=== PATIENT | female | born 1985 | race Caucasian/White ===

== ENCOUNTER 2023-03-02 17:10 | Emergency (ER) | payer OTHER, SELFPAY ==
[2023-03-02 17:09] VITALS: BP 162/90; PULSE 60; RESP 18; TEMP 36.9; O2SAT 100; BMI 30.2
[2023-03-02 17:10] VITALS: BP 162/90; O2SAT 99
--- NOTE | 2023-03-02 17:14 | ED.GENADUL1 ---
HPI - General Adult General Chief complaint: Headache Stated complaint: headache Time Seen by Provider: 03/02/23 17:14 Source: patient Mode of arrival: ambulance Limitations: no limitations History of Present Illness HPI narrative: patient is a 37-year-old female with a history of neuromuscular autoimmune disease, nonspecified and CVID. Patient has had weekly infusions for several years, also has a history of pots. Patient states she is premedicated with 1 L IV fluid bolus, received 25 g IVIG infusion and then receives 2nd liter IV fluid bolus. Patient states custodial through her 2nd liter after receiving the IV infusion she noted facial swelling, some shortness of breath and leg swelling. She denies any rash, has since developed a slight headache and was noted to be hypertensive. Her home nurse administering infusion 170/110 which is abnormal for the patient who is usually hypotensive. She denies any abdominal pain or diarrhea. There is no tongue swelling or difficulty swallowing reported. Patient denies any other medication changes in recent weeks. also arrived to confirm patient's history and prior treatments. Onset (ago): minute(s) Location: Reports head, face and lower extremity Severity: moderate Relieving factors: Reports none Treatments prior to arrival: Reports other (patient received weekly IVIG infusion) Related Data Home Medications Medication Instructions Recorded Confirmed buspirone 10 mg tablet 30 mg PO BID 03/02/23 03/02/23 cholecalciferol (vitamin D3) 125 125 mcg PO DAILY 03/02/23 03/02/23 mcg (5,000 unit) capsule diazepam 5 mg tablet 5 mg PO BID 03/02/23 03/02/23 diazepam 5 mg tablet (Valium) 5 mg PO Q8H PRN anxiety 03/02/23 03/02/23 immune glob,gamma (IgG) 10 25 g IV .weekly 03/02/23 03/02/23 %-gly-IgA over 50 mcg/mL injection solution (Gammagard Liquid) magnesium chloride 64 mg 64 mg PO DAILY 03/02/23 03/02/23 (magnesium chloride) tablet,delayed release (Mag 64) omega-3 300 mg-dha 120 mg-epa 180 1 cap PO DAILY 03/02/23 03/02/23 mg-fish oil 1,000 mg capsule omeprazole 40 mg capsule,delayed 40 mg PO DAILY 03/02/23 03/02/23 release potassium chloride 10 mEq 10 meq PO DAILY 03/02/23 03/02/23 capsule,extended release propranolol 60 mg capsule,24 60 mg PO DAILY 03/02/23 03/02/23 hr,extended release Previous Rx's Medication Instructions Recorded prednisone 20 mg tablet 40 mg (2 x 20 mg) PO DAILY 5 days 03/02/23 #10 tabs Allergies Allergy/AdvReac Type Severity Reaction Status Date / Time carbinoxamine [From [facility]] Allergy Unknown Verified 03/02/23 17:19 Latex, Natural Rubber Allergy Unknown Verified 03/02/23 17:19 pseudoephedrine [From [facility]] Allergy Unknown Verified 03/02/23 17:19 Review of Systems ROS Constitutional Denies: fever or chills Eyes Denies: change in vision Ears, nose, mouth, and throat Denies: throat pain, neck pain, throat swelling or difficulty swallowing Cardiovascular Denies: chest pain Respiratory Denies: shortness of breath or cough Gastrointestinal Denies: abdominal pain, nausea or vomiting Genitourinary Denies: painful urination Integumentary/Breast Denies: rash Neurological Reports: headache Psychiatric Denies: anxiety Endocrine Denies: excessive urination Allergic/Immunologic Denies: hives Exam Narrative Exam Narrative: Nurses notes and vital signs reviewed and patient is not hypoxic. General: The patient appears well and in no apparent distress. Patient is resting comfortably on cart. Skin: Warm, dry, no pallor noted.no evidence of rash. Head: Normocephalic, atraumatic, mild facial swelling noted, patient notes face is more swollen than her baseline. Neck: Supple, trachea mid-line, no tenderness, no lymphadenopathy Eye: Pupils are equal, round and reactive to light, EOMI Ears, Nose, Mouth, and Throat: TM are clear, normal light reflex, oral mucosa is moist, no posterior oropharynx erythema or hypertrophy, uvula is mid-line, no glottic swelling Cardiovascular: Regular Rate and Rhythm Respiratory: Patient is in no distress, no accessory muscle use, lungs are clear to auscultation, no wheezing, rales or rhonchi. Chest Wall: no tenderness Back: non-tender, no CVA tenderness Musculoskeletal: normal ROM, no tenderness,nonpitting edema noted lower legs. No evidence of rash. GI: Normal bowel sounds, no tenderness to palpation, no masses appreciated. No rebound, guarding, or rigidity noted. Neurological: A&O x4 Psychiatric: Cooperative Constitutional Vital Signs, click to edit/add: Last Vital Signs Temp 98.4 F 03/02/23 17:09 Pulse 69 03/02/23 18:13 Resp 20 03/02/23 18:13 BP 172/96 H 03/02/23 18:13 Pulse Ox 99 03/02/23 18:13 O2 Del Method Nasal Cannula 03/02/23 17:09 Course Vital Signs Vital signs: Vital Signs Temperature 98.4 F 03/02/23 17:09 Pulse Rate 60 03/02/23 17:09 Respiratory Rate 18 03/02/23 17:09 Blood Pressure 162/90 H 03/02/23 17:09 Pulse Oximetry 100 03/02/23 17:09 Oxygen Delivery Method Nasal Cannula 03/02/23 17:09 Temperature 98.4 F 03/02/23 17:09 Pulse Rate 69 03/02/23 18:13 Respiratory Rate 20 03/02/23 18:13 Blood Pressure 172/96 H 03/02/23 18:13 Pulse Oximetry 99 03/02/23 18:13 Oxygen Delivery Method Nasal Cannula 03/02/23 17:09 Medical Decision Making MDM Narrative Medical decision making narrative: patient presents with likely ALLERGIC reaction to IVIG medication, 25 g given per home health nurse who is present in the Emergency Room. She is without any acute respiratory distress, does note slight shortness of breath, facial swelling. She'll be treated with IV Pepcid, Benadryl and steroid. Given shortness of breath I feel steroids are clinically indicated given her history of immunodeficiency. patient reevaluated, reports feeling much better, very slight pressure sensation in her head, facial swelling is resolving. She denies any difficulty swallowing or tongue swelling. Patient states she is feeling better as well overall. Patient reports she is been prescribed steroids before by her sample coordinator on quite a few occasions. She feels comfortable taking a taper pack through the weekend pending evaluation with her sample coordinator regarding possible ALLERGIC reaction to her IVIG. We discussed possibly having her next infusion done at an infusion center encase there is similar reaction. Her nurse that administered the infusions at the bedside, and agrees to follow-up on this. abnormal lab studies discussed will be followed by PCP with outpt follow up. patient reports having history of these labs elevated in the past and they're still investigating. Patient's unable to reach pharmacy in the morning and she'll be sent home with a 40 mg prednisone tablet. stable vitals, patient up ambulatory in the room and reports feeling much better, she does report having a prescribed EpiPen at home as well. The patient is to followup with primary care physician/immmunologist in next 2-3 days or to return to the emergency department should any of the signs or symptoms worsen or new symptoms develop. Patient had questions answered. The patient agrees with the following Diagnosis and Treatment plan and the patient will be discharged home. Lab Data Lab results reviewed: Yes I reviewed the patient's lab results Labs: Lab Results 03/02/23 Range/Units 17:40 WBC 4.6 (4.0-11.0) 10^3/uL RBC 3.73 L (4.20-5.40) 10^6/uL Hgb 11.5 L (12.0-16.0) g/dL Hct 35.0 L (36.0-48.0) % MCV 93.8 (81.0-99.0) fL MCH 30.8 (26.7-34.0) pg MCHC 32.9 (29.9-35.2) g/dL RDW 12.3 (11.0-15.0) % Plt Count 201 (150-450) 10^3/uL MPV 10.0 (9.5-13.5) fL Neut % (Auto) 50.1 (43.0-75.0) % Lymph % (Auto) 40.0 (20.5-60.0) % [place] % (Auto) 4.1 (1.7-12.0) % Eos % (Auto) 5.2 (0.9-7.0) % Baso % (Auto) 0.4 (0.2-2.0) % Neut # (Auto) 2.3 (1.4-6.5) 10^3/uL Lymph # (Auto) 1.8 (1.2-3.8) 10^3/uL [place] # (Auto) 0.2 L (0.3-0.8) 10^3/uL Eos # (Auto) 0.2 (0.0-0.7) 10^3/uL Baso # (Auto) 0.0 (0.0-0.1) 10^3/uL Abs Immat Gran (auto) 0.01 (0.00-0.03) 10^3/uL Imm/Tot Granulo (auto) 0.2 (0.0-0.5) % Sodium 140 (136-145) mmol/L Potassium 3.9 (3.5-5.1) mmol/L Chloride 105 (98-107) mmol/L Carbon Dioxide 26.1 (21.0-32.0) mmol/L Anion Gap 12.8 BUN 12.0 (7.0-18.0) mg/dL Creatinine 1.13 H (0.55-1.02) mg/dL Est GFR ( Amer) >60 (>=60) Est GFR (Non-Af Amer) 54 L (>=60) BUN/Creatinine Ratio 10.6 Glucose 106 (74-106) mg/dL Calcium 8.6 (8.5-10.1) mg/dL Total Bilirubin 0.3 (0.2-1.0) mg/dL AST 97 H (15-37) U/L ALT 79 H (14-59) U/L Alkaline Phosphatase 188 H (46-116) U/L Total Protein 7.9 (6.4-8.2) g/dL Albumin 3.0 L (3.4-5.0) g/dL Globulin 4.9 g/dL Albumin/Globulin Ratio 0.6 ECG Data Attestation: I personally reviewed and interpreted this ECG as follows: Interpretation: EKG interpretation: Emergency Department physician interpretation, normal sinus rhythm, 57 bpm no ectopy, no ST segment elevation, normal axis. Discharge Plan Discharge Chief Complaint: Headache Clinical Impression: Allergic reaction, Infusion reaction Patient Disposition: Home, Self-Care Time of Disposition Decision: 18:30 Condition: Good Prescriptions / Home Meds: New prednisone 20 mg tablet 40 mg PO DAILY 5 Days Qty: 10 0RF No Action buspirone 10 mg tablet 30 mg PO BID cholecalciferol (vitamin D3) 125 mcg (5,000 unit) capsule 125 mcg PO DAILY diazepam 5 mg tablet 5 mg PO BID diazepam [Valium] 5 mg tablet 5 mg PO Q8H PRN (Reason: anxiety) Gammagard Liquid 10 % solution 25 g IV .weekly Mag 64 64 mg tablet,delayed release (DR/EC) 64 mg PO DAILY omega 6-gyw-ufl-fish oil 300 mg (120 mg- 180mg)-1,000 mg capsule 1 cap PO DAILY omeprazole 40 mg capsule,delayed release(DR/EC) 40 mg PO DAILY potassium chloride 10 mEq capsule, extended release 10 meq PO DAILY propranolol 60 mg capsule,extended release 24 hr 60 mg PO DAILY Instructions: General Allergic Reaction (ED) Additional Instructions: contact her [facility] sample coordinator, discussed IVIG infusion reaction, current medications and discussion for the next infusion. Stand Alone Forms: Portal Instructions Referrals: LIZY SORIA [Primary Care Provider] - 1 week
--- NOTE | 2023-03-02 17:15 | ECG_ITS ---
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
--- NOTE | 2023-03-02 17:15 | XR_ITS ---
The [address] [address] Patient Name: BEN BARR MRN: [id number] date: 1985 Sex: F Assigned Patient Location: ER Current Patient Location: ED.MAIN Accession/Order Number: [id number] Exam Date: 03/02/2023 17:45 Report Date: 03/02/2023 18:29 At the request of: LEYDA DELONG Procedure: XR chest 1V EXAM: XR chest 1V TECHNIQUE: Single AP view chest HISTORY: SOB COMPARISON: 08/03/2021 FINDINGS: The heart and mediastinum are unremarkable. The lung sylvester are clear of any acute infiltrate, effusion or mass. No acute bony abnormality. XR/XR chest 1V IMPRESSION: No acute pulmonary disease. Electronically authenticated by: GORDON HYLTON Date: 03/02/2023 18:29
[2023-03-02 17:30] VITALS: BP 144/102; PULSE 62
[2023-03-02] MEDS: METHYLPREDNISOLONE SOD SUCC PF 125 MG/2 ML VIAL IVP (17:30)
[2023-03-02] MEDS: ACETAMINOPHEN 500 MG TABLET 1000 MG PO (17:30)
[2023-03-02] MEDS: FAMOTIDINE/PF 20 MG/2 ML VIAL IV (17:30)
[2023-03-02] MEDS: DIPHENHYDRAMINE HCL 50 MG/ML (1ML) VIAL 25 MG IV (17:30)
[2023-03-02 17:31] VITALS: BP 145/95; PULSE 77
[2023-03-02 17:47] LABS: Basophils Percent Auto 0.4 % (0.2-2.0); Eosinophils Absolute Auto 0.2 10^3/uL (0.0-0.7); Eosinophils Percent Auto 5.2 % (0.9-7.0); Hemoglobin 11.5 g/dL (12.0-16.0); Immature Granulocytes Abs Auto 0.01 10^3/uL (0.00-0.03); Immature Granulocytes Pct Auto 0.2 % (0.0-0.5); Lymphocytes Absolute Auto 1.8 10^3/uL (1.2-3.8); Mean Corpuscular HGB Conc 32.9 g/dL (29.9-35.2); Mean Corpuscular Hemoglobin 30.8 pg (26.7-34.0); Mean Corpuscular Volume 93.8 fL (81.0-99.0); Monocytes Absolute Auto 0.2 10^3/uL (0.3-0.8); Monocytes Percent Auto 4.1 % (1.7-12.0); Neutrophils Absolute Auto 2.3 10^3/uL (1.4-6.5); Neutrophils Percent Auto 50.1 % (43.0-75.0); Platelet Count 201 10^3/uL (150-450); Red Blood Count 3.73 10^6/uL (4.20-5.40); Red Cell Distribution Width 12.3 % (11.0-15.0); White Blood Count 4.6 10^3/uL (4.0-11.0)
[2023-03-02 17:59] LABS: Alanine Aminotransferase 79 U/L (14-59); Albumin Globulin Ratio 0.6; Alkaline Phosphatase 188 U/L (46-116); Anion Gap 12.8; Aspartate Amino Transferase 97 U/L (15-37); BUN Creatinine Ratio 10.6; Bilirubin Total 0.3 mg/dL (0.2-1.0); Calcium 8.6 mg/dL (8.5-10.1); Carbon Dioxide 26.1 mmol/L (21.0-32.0); Chloride 105 mmol/L (98-107); Estimated GFR (African America >60 (>=60); Estimated GFR (Non-African Ame 54 (>=60); Globulin 4.9 g/dL; Glucose 106 mg/dL (74-106); Potassium 3.9 mmol/L (3.5-5.1); Sodium 140 mmol/L (136-145); Total Protein 7.9 g/dL (6.4-8.2)
[2023-03-02 18:00] VITALS: BP 160/102; PULSE 58; O2SAT 98
[2023-03-02 18:13] VITALS: BP 172/96; PULSE 69; RESP 20; O2SAT 99
[2023-03-02] MEDS: PREDNISONE 20 MG TABLET 40 MG PO (18:42)
== END 2023-03-02 18:48 | disposition home or self-care (01) ==
PROVIDERS: Personal Emergency Response Attendant; Emergency Provider Emergency Medicine Emergency Medical Services; PCP Family Medicine
DX: R51.9 Headache, unspecified (principal); T50.995A Adverse effect of other drugs, medicaments and biological substances, initial encounter; Z79.899 Other long term (current) drug therapy; D89.89 Other specified disorders involving the immune mechanism, not elsewhere classified; G90.A Postural orthostatic tachycardia syndrome [POTS]
CPT/HCPCS: 36415; 71045; 80053; 85025; 93005; 96374; 96375; 99285; J1200; J2930; J7512

== ENCOUNTER 2023-03-15 08:53 | Outpatient (OUT) | payer OTHER, SELFPAY ==
--- OUTSIDE RECORDS SUMMARY | 2023-03-15 09:06 | XMS_ITS | CCD ---
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 Name Role Phone Lizy Soria DO Primary Care Provider Lizy SORIA Primary Care Physician Nubia Negrete Unavailable Unavailable Kathryn Wolfe Unavailable Unavailable Nicole Kang Unavailable DO Lizy Zuleta Primary Care Provider MD Antonio Reyes Emergency Provider MICHELLE, DR CHAHAL Admitting Unavailable DARREN, DR LIZY Jain Primary Care Unavailable IRENA GOMES Consulting Unavailable MICHELLE, DR CHAHAL Attending Unavailable TOM BUSTOS Consulting Unavailable EUGENE GAGNON Consulting Unavailable Raquel Regan Unavailable Lizy Soria DO Primary Care Provider Lizy Soria DO Primary Care Provider Lizy Soria DO Primary Care Provider ARSH HERNANDEZ Consulting Unavailable LIZY SORIA Primary Care Unavailable RADHA COOLEY Attending Unavailable SHAUN CONTEH Admitting UnavailCHARLY Lund Referring Unavailable ROYCE HAUSER Attending Unavailable LIZY SORIA Primary Care Unavailable Brenda LOMELI, Kathryn Unavailable Unavailsherry Gutierrez RN, Kathryn Unavailable UnavailObed Gonzalez Admitting Unavailable Obed MASON Attending Unavailable Obed MASON Referring Unavailable Alexia Bolaños Admitting Unavailable Alexia Bolaños Attending Unavailable Alexia Bolaños Attending Unavailable Alexia Bolaños Admitting Unavailable Alexia Bolaños Attending Unavailable Lizy SORIA Attending Unavailable Lizy SORIA Attending Unavailable Lizy SORIA Attending Unavailable Lizy SORIA Attending Unavailable Deandra Conley Attending Unavailable Darren DO, Lizy Jain Primary Care Provider DOUGLASS, FREDERIC Jain Referring Unavailable DARREN, LIZY S Primary Care Unavailable DOUGLASS, FREDERIC Jain Referring Unavailable DARREN, LIZY S Primary Care Unavailable BECKA RUBI Referring Unavailable DARREN, LIZY S Primary Care Unavailable ARSH HERNANDEZ Attending Unavailable DARREN, LIZY S Referring Unavailable DARREN, LIZY S Primary Care Unavailable LUCAS MCDOWELL Attending Unavailable DARREN, LIZY Referring Unavailable DARREN, LIZY Primary Care Unavailable NILAM GARCIA Referring Unavailable DARREN, LIZY Jain Primary Care Unavailable DOUGLASS, FREDERIC Jain Attending Unavailable BECKA RUBI Attending Unavailable NILAM GARCIA Referring Unavailable DARREN, LIZY S Primary Care Unavailable DARREN, LIZY S Primary Care Unavailable EMBER, BEBETO La Referring Unavailabl e DARREN, LIZY S Primary Care Unavailable BEBETO PERRY Referring Unavailabl e DARREN, LIZY S Primary Care Unavailable DOUGLASS, FREDERIC Jain Attending Unavailable ARSH KISER Attending Unavailable DARREN, LIZY Jain Primary Care Unavailable ARSH KISER Referring Unavailable DARREN, LIZY S Primary Care Unavailable DARREN, LIZY S Primary Care Unavailable SAROJ FOSS Referring Unavailable SAROJ FOSS Attending Unavailable DARREN, LIZY S Primary Care Unavailable BEBETO PERRY Attending UnavailVESTA Rodriguez Referring Unavailable DARREN, LIZY S Primary Care Unavailable SAROJ FOSS Attending Unavailable ARSH KISER Referring Unavailable DARREN, LIZY S Primary Care Unavailable DARREN, LIZY S Primary Care Unavailable SAROJ FOSS Referring Unavailable DARREN, LIZY S Primary Care Unavailable KIM ROGERS Attending Unavailable SAROJ FOSS Referring Unavailable DARREN, LIZY S Primary Care Unavailable QUIANA DOW Attending Unavailabl SAROJ Fernandez Referring Unavailable DARREN, LIZY S Primary Care Unavailable KIM ROGERS Referring Unavailable JENNY SOUTH Attending Unavailable DARREN, LIZY S Primary Care Unavailable DARREN, LIZY S Primary Care Unavailable BEBETO PERRY Referring Unavailabl e DARREN, LIZY S Primary Care Unavailable MUNA LACKEY Attending Unavailable BEBETO PERRY Referring Unavailabl e DARREN, LIZY S Primary Care Unavailable MORENO FERNANDEZ Attending Unavailable BEBETO PERRY Referring UnavailBECKA Hall Attending Unavailable DARREN, LIZY S Primary Care Unavailable DOUGLASS, FREDERIC Jain Referring Unavailable DARREN, LIZY S Primary Care Unavailable DARREN, LIZY S Primary Care Unavailable COURTNEY RANDHAWA Attending Unavailable ARSH KISER Referring Unavailable ARSH KISER Attending Unavailable DARREN, LIZY S Primary Care Unavailable DARREN, LIZY S Primary Care Unavailable SAROJ FOSS Referring Unavailable DARREN, LIZY S Primary Care Unavailable DOUGLASS, FREDERIC Jain Referring Unavailable DARREN, LIZY S Primary Care Unavailable BECKA RUBI Referring Unavailable DARREN, LIZY S Primary Care Unavailable DARREN, LIZY S Primary Care Unavailable ANTOINE COSTA Attending Unavailable DARREN, LIZY S Primary Care Unavailable AAKASH HIGGINBOTHAM Attending Unava ilable AAKASH HIGGINBOTHAM Admitting Unava ilable DARREN, LIZY S Primary Care Unavailable DOUGLASS, FREDERIC Jain Attending Unavailable ARSH KISER Attending Unavailable DARREN, LIZY S Primary Care Unavailable DARREN, LIZY S Primary Care Unavailable SAROJ FOSS Attending Unavailable DARREN, LIZY S Primary Care Unavailable MORENO FERNANDEZ Attending Unavailable DARREN, LIZY S Primary Care Unavailable ANTOINE COSTA Referring Unavailable ANTOINE COSTA Attending Unavailable JENNY SOUTH Attending Unavailable DARREN, LIZY S Primary Care Unavailable JENNY SOUTH Attending Unavailable DARREN, LIZY S Primary Care Unavailable Allergies Allergy Classification Reported Allergen(s) Allergy Type Date of Onset Reaction(s) Facility (20 sources) Brompheniramine / Pseudoephedrine; Translations: [BROMPHENIRAMINE-PS EUDOEPHEDRIN] Drug Allergy 07-31-19 09 [facility] (20 sources) Serotonin 5ht-3 Antagonists; Translations: [SEROTONIN 5HT-3 ANTAGONISTS] Drug Intolerance 10-07-19 11 Other: See Comments [facility] (9 sources) Chlorpheniramine / Phenylephrine; Translations: [chlorpheniramine-p henylephrine] Drug Allergy [facility] (1 source) carbinoxamine Drug Allergy 08-05-19 22 Unknown Reaction [facility] (1 source) Pseudoephedrine Drug Allergy 08-05-19 22 Unknown Reaction [facility] (1 source) carbinoxamine / Pseudoephedrine Drug Allergy 02-01-20 13 [facility] (8 sources) Latex; Translations: [LATEX, NATURAL RUBBER] Drug Allergy 10-24-18 86 Rash, Swelling [facility] Work Phone: (1 source) medroxyPROGESTERone ; Translations: [MEDROXYPROGESTERON E] Drug Allergy 10-24-19 20 [facility] Medications Current Medications Medication Drug Class(es) Dates Sig (Normalized) Sig (Original) 1 LITER NORMAL SALINE (8 sources) Start: 09-05-2018 1 LITER NORMAL SALINE 1 LITER NORMAL SALINE, 1 LITER GIVEN WITH GAMMAGARD Start Date: 09/05/18 Status: Ordered Azithromycin (1 source) Macrolide Antimicrobial Azithromycin Active benoxinate hydrochloride 4 mg/ml / fluorescein sodium 2.5 mg/ml ophthalmic solution (2 sources) Diagnostic Dye Start: 10-03-2021 End: 10-03-2021 fluorescein-benoxi babs 0.25-0.4 % 1 Drop (FLURESS) Start: 10-01-2021 End: 10-01-2021 fluorescein-benoxinate 0.25- 0.4 % 1 Drop (FLURESS) busPIRone hydrochloride 10 mg oral tablet (20 sources) Start: 06-01-2017 take 15 mg by mouth three times daily Buspirone Active 15 MG PO Three times daily June 01, 2017 3:23pm Start: 11-10-2016 take 3 tablets by mo ut twice daily busPIRone (BUSPAR) 10 mg tablet Take 30 mg by mouth twice daily. 0 11/10/2016 Active busPIRone HCl Ac tive Comment on above: Take 30 mg by mouth. Take 30 mg by mouth twice daily. diphenhydrAMINE hydrochloride 50 mg oral capsule (20 sources) Histamine-1 Receptor Antagonist Start: 08-04-2021 Diphenhydramine Hcl (Benadryl) 50 mg Capsule Active MG August 04, 2021 12:26pm Start: 12-15-2014 diphenhydrAMIN E (BENADRYL) 25 mg capsule Take 1 capsule by mouth as directed. Use as directed. 0 12/15/2014 Active Comment on above: Take 1 capsule by mo uth as directed. Use as directed. Fish Oils (8 sources) Start: 07-12-2022 take 1 capsule by mouth once daily [place]-3 Fish Oil 1000 mg oral capsule 1,000 mg = 1 cap(s), Oral, Daily, # 30 cap(s), Refills(s) 11, Pharmacy: [facility], 155, cm, 04/17/22 15:53:00 EST, Height/Length Dosing, 65.8, kg, 04/17/22 15:53:00 EST, Weight Dosing Start Date: 07/12/22 Status: Ordered Start: 07-20-2021 take 1 capsule by [facility] once daily [place]-3 Fish Oil 1000 mg oral capsule 1,000 mg = 1 cap(s), Oral, Daily, # 30 cap(s), Refills(s) 11, Pharmacy: [facility], 155, cm, 04/19/21 16:40:00 EST, Height/Length Dosing, 59.6, kg, 04/19/21 16:40:00 EST, Weight Dosing Start Date: 07/20/21 Status: Ordered fluticasone 0.05 mg/inh Nasal [address] (1 source) Start: 04-14-2020 take 2 spray(s) nasal route once daily fluticasone 0.05 mg/inh Nasal [address] 2 spray(s), Nasal, Daily, 16 gram, Refill(s) 0, each nostril, [facility], 155, cm, 04/14/20 8:32:00 EST, Height/Length Dosing, 55.9, kg, 04/14/20 8:32:00 EST, Weight Dosing Start Date: 04/14/20 Status: Ordered 50 ml glucose 50 mg/ml injection (1 source) Start: 06-15-2021 End: 06-15-2021 dextrose 5 % in water (D5W) 5 % iv piggyback Inject 100 mL intravenously one time only for 1 dose. WITH IVIG 100 mL 0 06/15/2021 06/15/2021 Active Comment on above: Inject 100 mL intrav enously one time only for 1 dose. WITH IVIG hydrOXYzine hydrochloride 25 mg oral tablet (12 sources) Antihistamine Start: 06-27-2022 End: 07-27-2022 take 1 tablet by mouth every eight hours as needed hydrOXYzine HCl (ATARAX) 25 mg tablet Take 1 tablet by mouth three times daily as needed. 90 tablet 2 06/27/2022 07/27/2022 Active Start: 06-15-2021 End: 08-14-2021 take 1-2 tablets by mouth three times daily as needed for anxiety hydrOXYzine hydrochloride 10 mg Tab 1-2 tab(s), Oral, TID, PRN for anxiety, X 30 day(s), # 90 tab(s), Refills(s) 1, Pharmacy: [facility], 155, cm, 04/19/21 16:40:00 EST, Height/Length Dosing, 59.6, kg, 04/19/21 16:40:00 EST, Weight Dosing Start Date: 06/15/21 Stop Date: 08/14/21 Status: Ordered Comment on above: Take 1 tablet by ilia th three times daily as needed. iv contrast (will be provided with radiology test) (2 sources) Start: 09-21-19 End: 09-22-19 inject 1 dose intravenously once iv contrast (will be provided with radiology test) MRI Brain Inject, intravenously, once for 1 dose.No IV access, insert saline lock prior to beginning of sedation, infusion, injection of imaging exam.Discontinue saline lock post exam. If Pt. has a central line or IVAD, may access for administration according to line specific nursing protocol.Once exam is complete flush line and de-access according to line specific nursing protocol in the MR contrast administration guidelines link 1 Each 0 09/20/2021 09/21/2021 Active Start: 09-20-2021 End: 09-21-2021 iv contrast (will be provide d with radiology test) MRI CSP Inject, intravenously, once for 1 dose. No IV access, insert saline lock prior to the beginning of sedation, infusion, injection of imaging exam. Discontinue saline lock post exam. If Pt. has a central line or IVAD, may access for administration according to line specific nursing protocol. Once exam is complete flush line and de-access according to line specific nursing protocol in the MR contrast administration guidelines link. 1 Each 0 09/20/2021 09/21/2021 Active Comment on above: MRI Brain Inject, in travenously, once for 1 dose.No IV access, insert saline lock prior to beginning of sedation, infusion, injection of imaging exam.Discontinue saline lock post exam. If Pt. has a central line or IVAD, may access for administration according to line specific nursing protocol.Once exam is complete flush line and de-access according to line specific nursing protocol in the MR contrast administration guidelines link MRI CSP Inject, intr avenously, once for 1 dose. No IV access, insert saline lock prior to the beginning of sedation, infusion, injection of imaging exam. Discontinue saline lock post exam. If Pt. has a central line or IVAD, may access for administration according to line specific nursing protocol. Once exam is complete flush line and de-access according to line specific nursing protocol in the MR contrast administration guidelines link. LORazepam 0.5 mg oral tablet (14 sources) Benzodiazepine Start: 3 take 1 tablet by mouth once daily at bedtime LORazepam 0.5 mg Tab 0.5 mg = 1 tab(s), Oral, Once a day (at bedtime), # 4 tab(s), Refills(s) 0, Pharmacy: [facility], 155, cm, 01/02/22 7:59:00 EST, Height/Length Dosing, 60.2, kg, 01/02/22 7:59:00 EST, Weight Dosing Start Date: 04/17/22 Status: Ordered Start: 12-26-2021 take 0.5 mg by mouth once daily at bedtime LORazepam (ATIVAN) 0.5 mg Take 0.5 mg by mouth daily at bedtime. 0 12/27/2021 Suspended Start: 08-15-2021 End: 08-19-2021 take 1 tablet by mouth once daily at bedtime LORazepam 0.5 mg Tab 0.5 mg = 1 tab(s), Oral, Once a day (at bedtime), X 4 day(s), # 4 tab(s), Refills(s) 0, Pharmacy: [facility], 155, cm, 08/15/21 15:25:00 EDT, Height/Length Dosing, 58.6, kg, 08/15/21 15:25:00 EDT, Weight Dosing Start Date: 08/15/21 Stop Date: 08/19/21 Status: Ordered Start: 08-04-2021 take 1 tablet by ilia twice daily Lorazepam (Ativan) 1 mg tablet Active 1 MG PO Twice daily 4 2 August 04, 2021 4:52pm Comment on above: Take 0.5 mg by mouth daily at bedtime. Magnesium Chloride (20 sources) Start: 07-12-2022 take 1 tablet by mouth once daily Magnesium Chloride 64 mg Magnesium Chloride 64 mg, 1 tab, Oral, Daily, 90 tab(s), 3, take with the Vitamin D, [facility], [facility], 155, cm, 04/17/22 15:53:00 EST, Height/Length Dosing, 65.8, kg, 04/17/22 15:53:00 EST, Weight Dosing Start Date: 07/12/22 Status: Ordered Start: 12-14-2021 End: 02-21-2022 take 1 tablet by mouth once daily MAG64 [address] tablet TAKE ONE TABLET BY MOUTH DAILY WITH VITAMIN D3 0 12/14/2021 02/21/2022 Discontinued Start: 04-19-2021 take 1 tablet by ilia th once daily Magnesium Chloride 64 mg Magnesium Chloride 64 mg, 1 tab, Oral, Daily, 90 tab(s), 3, take with the Vitamin D, [facility], [facility], 155, cm, 04/19/21 16:40:00 EST, Height/Length Dosing, 59.6, kg, 04/19/21 16:40:00 EST, Weight Dosing Start Date: 04/19/21 Status: Ordered Comment on above: TAKE ONE TABLET BY M OUTH DAILY WITH VITAMIN D3 metoclopramide 10 mg oral tablet (1 source) Dopamine-2 Receptor Antagonist Start: 08-05-19 Metoclopramide Hcl (Reglan) 10 mg Tablet Active MG TABLET August 04, 2021 12:26pm metoprolol tartrate 50 mg oral tablet (20 sources) beta-Adrenergic Sil Start: 12-16-19 End: 12-11-19 take 1 tablet by mouth twice daily Metoprolol tartrate 50 mg Tab 50 mg = 1 tab(s), Oral, BID, X 90 day(s), # 180 tab(s), Refills(s) 3, Pharmacy: [facility], 155, cm, 11/01/21 16:20:00 EDT, Height/Length Dosing, 59.7, kg, 11/01/21 16:20:00 EDT, Weight Dosing Start Date: 12/15/21 Stop Date: 12/10/22 Status: Ordered Start: 06-01-2017 take 50 mg by mouth once daily Metoprolol Tartrate Active 50 MG PO Daily June 01, 2017 3:23pm Start: 12-15-2014 End: 11-23-2021 take 1 tablet by mouth twice daily metoprolol tartrate, short acting, (LOPRESSOR) 50 mg tablet Take 1 tablet by mouth twice daily. 0 12/15/2014 11/23/2021 Discontinued (Course of therapy completed) Metoprolol Tartr ate Active Comment on above: Take 1 tablet by ilia th twice daily. Take 50 mg by mouth twice daily. omeprazole 40 mg Cap-DR (1 source) Start: 06-15-2020 take 1 capsule by mouth once daily omeprazole 40 mg Cap-DR 40 mg = 1 cap(s), Oral, Daily, # 30 cap(s), Refills(s) 0, Pharmacy: [facility], 155, cm, 06/15/20 11:26:00 EDT, Height/Length Dosing, 57.5, kg, 06/15/20 11:26:00 EDT, Weight Dosing Start Date: 06/15/20 Status: Ordered OXcarbazepine 150 mg oral tablet (20 sources) Anti-epileptic Agent Start: 12-15-2014 End: 07-16-2022 take 1 tablet by mouth twice daily Trileptal 150 mg Tab 150 mg = 1 tab(s), Oral, BID, # 180 tab(s), Refills(s) 1, Pharmacy: [facility], 155, cm, 01/02/22 7:59:00 EST, Height/Length Dosing, 60.2, kg, 01/02/22 7:59:00 EST, Weight Dosing Start Date: 01/18/22 Status: Ordered OXcarbazepine Ac tive Comment on above: Take 1 tablet by ilia th twice daily. prazosin 1 mg oral capsule (2 sources) alpha-Adrenergic Sil Start: End: 024 take 1 capsule by mouth once daily at bedtime, then take 2 capsules by mouth once daily at bedtime, then take 3 capsules by mouth once daily at bedtime, then take 4 capsules by mouth once daily at bedtime prazosin (MINIPRESS) 1 mg cap Take 1 capsule by mouth daily at bedtime for 7 days, THEN 2 capsules daily at bedtime for 7 days, THEN 3 capsules daily at bedtime for 7 days, THEN 4 capsules daily at bedtime for 7 days. 70 capsule 0 01/22/2023 02/19/2023 Active Comment on above: Take 1 capsule by mo [facility] daily at bedtime for 7 days, THEN 2 capsules daily at bedtime for 7 days, THEN 3 capsules daily at bedtime for 7 days, THEN 4 capsules daily at bedtime for 7 days. sulfamethoxazole 800 mg / trimethoprim 160 mg oral tablet (1 source) Dihydrofolate Reductase Inhibitor Antibacterial, Sulfonamide Antimicrobial Start: End: take 1 tablet by mouth twice daily Bactrim DS 800 mg-160 mg Tab 1 tab(s), Oral, BID for 14 day(s), 28 tab(s), Refill(s) 0, [facility], 155, cm, 07/25/21 16:19:00 EDT, Height/Length Dosing, 58.5, kg, 07/25/21 16:19:00 EDT, Weight Dosing Start Date: 07/25/21 Stop Date: 08/08/21 Status: Ordered tropicamide 10 mg/ml ophthalmic solution (2 sources) Anticholinergic Start: End: tropicamide 1 % 1 Drop (MYDRIACYL) Start: 10-01-2021 End: 10-01-2021 tropicamide 1 % 1 Drop (MYDR IACYL) turmeric extract 500 mg oral capsule (8 sources) Start: 04-19-2021 take 1 capsule by mouth once daily Turmeric 500 mg oral capsule 500 mg = 1 cap(s), Oral, Daily, # 90 cap(s), Refills(s) 3, Pharmacy: [facility], 155, cm, 04/19/21 16:40:00 EST, Height/Length Dosing, 59.6, kg, 04/19/21 16:40:00 EST, Weight Dosing Start Date: 04/19/21 Status: Ordered Vitamin D3 5000 intl units oral capsule (8 sources) Start: 07-12-2022 take 1 capsule by mouth once daily at mealtime Vitamin D3 5000 intl units oral capsule 125 mcg = 1 cap(s), Oral, Daily, with food, # 30 cap(s), Refills(s) 11, Pharmacy: [facility], 155, cm, 04/17/22 15:53:00 EST, Height/Length Dosing, 65.8, kg, 04/17/22 15:53:00 EST, Weight Dosing Start Date: 07/12/22 Status: Ordered Start: 07-20-2021 take 1 capsule by mo [facility] once daily at mealtime Vitamin D3 5000 intl units oral capsule 125 mcg = 1 cap(s), Oral, Daily, with food, # 30 cap(s), Refills(s) 11, Pharmacy: [facility], 155, cm, 04/19/21 16:40:00 EST, Height/Length Dosing, 59.6, kg, 04/19/21 16:40:00 EST, Weight Dosing Start Date: 07/20/21 Status: Ordered Zofran ODT 4 mg Tab-Dis (8 sources) Start: 04-17-2022 take 1 tablet by mouth every eight hours as needed for nausea Zofran ODT 4 mg Tab-Dis 4 mg = 1 tab(s), Oral, q8hr, PRN Nausea/Vomiting, # 30 tab(s), Refills(s) 1, Pharmacy: [facility], 155, cm, 01/02/22 7:59:00 EST, Height/Length Dosing, 60.2, kg, 01/02/22 7:59:00 EST, Weight Dosing Start Date: 04/17/22 Status: Ordered Start: 12-13-2021 take 1 tablet by ilia every eight hours as needed for nausea Zofran ODT 4 mg Tab-Dis 4 mg = 1 tab(s), Oral, q8hr, PRN Nausea/Vomiting, # 30 tab(s), Refills(s) 1, Pharmacy: [facility], 155, cm, 11/01/21 16:20:00 EDT, Height/Length Dosing, 59.7, kg, 11/01/21 16:20:00 EDT, Weight Dosing Start Date: 12/13/21 Status: Ordered Start: 06-29-2021 take 1 tablet by ilia th every eight hours as needed for nausea Zofran ODT 4 mg Tab-Dis 4 mg = 1 tab(s), Oral, q8hr, PRN Nausea/Vomiting, # 30 tab(s), Refills(s) 1, Pharmacy: [facility], 155, cm, 04/19/21 16:40:00 EST, Height/Length Dosing, 59.6, kg, 04/19/21 16:40:00 EST, Weight Dosing Start Date: 06/29/21 Status: Ordered Completed/Discontinued Medications Medication Drug Class(es) Dates Sig (Normalized) Sig (Original) acetylcholine 10% solution - [facility] (20 sources) Start: 06-27-2022 End: 11-22-2022 acetylcholine 10% solution - [facility] Start: 06-27-2022 acetylcholine 10% solution - [facility] Start: 09-20-2021 End: 11-22-2022 acetylcholine 10% solution - [facility] Start: 09-20-2021 acetylcholine 10% solution - [facility] cholecalciferol 0.125 mg oral capsule (14 sources) Vitamin D Start: 12-14-2021 End: 02-21-2022 take 1 capsule by mouth once daily at mealtime Cholecalciferol, Vitamin D3, 125 mcg (5,000 unit) cap TAKE ONE CAPSULE BY MOUTH ONCE DAILY WITH FOOD 0 12/14/2021 02/21/2022 Discontinued Comment on above: TAKE ONE CAPSULE BY MOUTH ONCE DAILY WITH FOOD cloNIDine hydrochloride 0.2 mg oral tablet (1 source) Central alpha-2 Adrenergic Agonist Start: 06-01-2017 End: 08-04-2021 take 0.2 mg by mouth once daily Clonidine Hcl Discontinued 0.2 MG PO Daily June 01, 2017 3:23pm August 04, 2021 12:25pm 24 hr dexmethylphenidate hydrochloride 20 mg extended release oral capsule (13 sources) Central Nervous System Stimulant Start: 10-18-2021 take 1 capsule by mouth once daily in the morning Dexmethylphenidate (FOCALIN XR) 20 mg Capsule ER Take 20 mg by mouth every morning. 0 10/18/2021 Active Start: 08-04-2021 Dexmethylpheni date (Focalin Xr) 20 mg Capsule,Er Biphasic 50-50 Active MG PO Mary Ann 16th, 2022 12:25pm Start: 07-25-2021 take 1 capsule by mo uth once daily in the morning Focalin XR 20 mg oral capsule, extended release 20 mg = 1 cap(s), Oral, qAM, 30 days, # 30 cap(s), Refills(s) 0, Pharmacy: [facility], 155, cm, 07/25/21 16:19:00 EDT, Height/Length Dosing, 58.5, kg, 07/25/21 16:19:00 EDT, Weight Dosing Start Date: 07/25/21 Status: Ordered Dexmethylphenida te HCl ER Active Comment on above: Take 20 mg by mouth every morning. diazePAM 5 mg oral tablet (8 sources) Benzodiazepine Start: 2022 End: 12-08-2022 take 1 tablet by mouth twice daily diazePAM (VALIUM) 5 mg tablet Take 1 tablet by mouth twice daily for 30 days. 0 2022 12/08/2022 Start: 07-25-2022 End: 08-24-2022 diazePAM (VALIUM) 5 mg table t Take by mouth. 0 07/25/2022 08/24/2022 Comment on above: Take by mouth. Take 1 tablet by ilia th twice daily for 30 days. fluconazole 100 mg oral tablet (20 sources) Azole Antifungal Start: 2 End: 3 take 1 tablet by mouth once daily fluconazole (DIFLUCAN) 100 mg tablet Take 1 tablet by mouth once daily. 30 tablet 5 10/13/2021 03/10/2022 Discontinued (Course of therapy completed) Fluconazole Acti ve Comment on above: Take 1 tablet by ilia th once daily. FLUoxetine 20 mg oral capsule (20 sources) Serotonin Reuptake Inhibitor Start: 2 End: 3 take 3 capsules by mouth once daily in the morning FLUoxetine (PROZAC) 20 mg capsule TAKE THREE CAPSULES BY MOUTH DAILY IN THE MORNING 0 02/15/2022 03/10/2022 Discontinued (Course of therapy completed) Start: 04-19-2021 take 1 tablet by ilia th once daily FLUoxetine 60 mg oral tablet 60 mg = 1 tab(s), Oral, Daily, # 30 tab(s), Refills(s) 0 Start Date: 04/19/21 Status: Ordered Start: 04-01-2021 End: 02-10-2022 FLUoxetine (PROZAC) 20 mg ca psule Take 20 mg by mouth. 0 04/01/2021 02/10/2022 Discontinued Start: 04-01-2021 FLUoxetine (AR OZAC) 20 mg capsule Take 60 mg by mouth. 0 04/01/2021 Active Comment on above: Take 60 mg by mouth. Take 20 mg by mouth. TAKE THREE CAPSULES BY MOUTH DAILY IN THE MORNING fluticasone propionate 0.05 mg/actuat metered dose nasal spray (20 sources) Corticosteroid Start: 09-05-2021 End: 09-05-2022 fluticasone (FLONASE) 50 mcg/actuation nasal spray Use in the nose. 0 09/05/2021 09/05/2022 Discontinued Start: 04-14-2020 take 2 spray(s) nasa l route once daily fluticasone 0.05 mg/inh Nasal [address] 2 spray(s), Nasal, Daily, 16 gram, Refill(s) 0, each nostril, [facility], 155, cm, 04/14/20 8:32:00 EST, Height/Length Dosing, 55.9, kg, 04/14/20 8:32:00 EST, Weight Dosing Start Date: 04/14/20 Status: Ordered Comment on above: Use in the nose. 300 ml immunoglobulin g, human 100 mg/ml injection (20 sources) Human Immunoglobulin G Start: 07-03-2022 End: 10-16-2022 immune globulin, human,, IgG, (GAMMAGARD LIQUID) 10 % soln Inject 250 mL intravenously one time a week. 250 mL 10/16/2022 Active Start: 06-27-2022 immune globuli n, human,, IgG, (GAMMAGARD LIQUID) 10 % soln Inject 200 mL intravenously one time a week. 200 mL 11 06/27/2022 Active Start: 04-25-2021 End: 06-27-2022 immune globulin, human,, IgG , (GAMMAGARD LIQUID) 10 % soln Inject 550 mL intravenously every 3 weeks. 550 mL 11 02/21/2022 06/27/2022 Discontinued Start: 05-20-2019 Gammagard Liqu id 10% injectable solution 10 gram, SubCutaneous, q4wk, # 1 EA, Refills(s) 11 Start Date: 05/20/19 Status: Ordered Start: 06-01-2017 Immun Glob G-G ly-Gluc-Iga 0-50 (Gammagard S-D (Iga Active 1 DOSE IV Q30D June 01, 2017 3:23pm Comment on above: Inject 450 mL intrav enously every 3 weeks. Inject 550 mL intrav enously every 3 weeks. Inject 200 mL intrav enously one time a week. Inject 250 mL intrav enously one time a week. meloxicam 15 mg oral tablet (15 sources) Nonsteroidal Anti-inflammatory Drug Start: 09-17-19 End: 01-18-20 take 1 tablet by mouth once daily meloxicam (MOBIC) 15 mg tablet TAKE ONE TABLET BY MOUTH ONCE DAILY FOR 30 DAYS 0 09/16/2021 01/17/2022 Discontinued Comment on above: TAKE ONE TABLET BY [facility] ONCE DAILY FOR 30 DAYS methocarbamol 500 mg oral tablet (6 sources) Muscle Relaxant Start: 02-16-20 End: 03-10-19 take 1 tablet by mouth three times daily methocarbamol (ROBAXIN) 500 mg tablet Take 500 mg by mouth three times daily. 0 02/15/2022 03/10/2022 Discontinued (Course of therapy completed) Start: 11-23-2021 End: 12-23-2021 take 1 tablet by mouth three times daily methocarbamol (ROBAXIN) 500 mg tablet Take 1 tablet by mouth three times daily. 90 tablet 3 11/23/2021 12/23/2021 Active Comment on above: Take 1 tablet by ilia three times daily. Take 500 mg by mouth three times daily. omega-3 fatty acids 1,000 mg cap (6 sources) Start: 10-11-2022 take 1 capsule by mouth once daily omega-3 fatty acids 1,000 mg cap Take 1 capsule by mouth once daily. 0 10/11/2022 Active Comment on above: Take 1 capsule by mo [facility] once daily. omeprazole 40 mg delayed release oral capsule (20 sources) Proton Pump Inhibitor Start: 10-17-2022 take 1 capsule by mouth twice daily omeprazole (PRILOSEC) 40 mg capsule Take 1 capsule by mouth two times a day. 0 10/17/2022 Active Start: 12-29-2021 End: 09-05-2022 take 1 capsule by mouth once daily omeprazole (PRILOSEC) 40 mg capsule Take 40 mg by mouth once daily. 0 12/29/2021 09/05/2022 Discontinued Start: 06-15-2020 take 1 capsule by [facility] once daily omeprazole 40 mg Cap-DR 40 mg = 1 cap(s), Oral, Daily, # 30 cap(s), Refills(s) 0, Pharmacy: [facility] 1155, 155, cm, 06/15/20 11:26:00 EDT, Height/Length Dosing, 57.5, kg, 06/15/20 11:26:00 EDT, Weight Dosing Start Date: 06/15/20 Status: Ordered Comment on above: Take 40 mg by mouth once daily. Take 1 capsule by [facility] two times a day. ondansetron 4 mg disintegrating oral tablet (20 sources) Serotonin-3 Receptor Antagonist Start: 12-15-19 22 take 1 tablet by mouth every eight hours as needed for nausea ondansetron orally disintegrating (ZOFRAN ODT) 4 mg disintegrating tablet TAKE ONE TABLET BY MOUTH EVERY 8 HOURS NEEDED FOR NAUSEA VOMITING 0 12/14/2021 Active Start: 06-01-2017 End: 08-04-2021 take 1 tablet by mouth every eight hours Ondansetron (Zofran Odt) 4 mg tablet,disintegrating Discontinued 4 MG PO Q8H June 01, 2017 5:06pm August 04, 2021 12:25pm Comment on above: TAKE ONE TABLET BY [facility] EVERY 8 HOURS NEEDED FOR NAUSEA VOMITING pantoprazole 40 mg delayed release oral tablet (6 sources) Proton Pump Inhibitor Start: 3 take 1 tablet by mouth twice daily pantoprazole DR (PROTONIX) 40 mg tablet Indications: Gastroparesis Take 1 tablet by mouth twice daily. Take after POP procedure 60 tablet 0 11/16/2022 Active Comment on above: Take 1 tablet by [facility] twice daily. Take after POP procedure potassium chloride 10 meq extended release oral capsule (15 sources) Start: 3 potassium chloride SR (MICRO-K) 10 mEq CR capsule Take 10 mEq by mouth once daily. 0 06/05/2022 Active Start: 02-16-2020 take 1 capsule by [facility] once daily potassium chloride 10 mEq Cap-ER 10 mEq = 1 cap(s), Oral, Daily, # 30 cap(s), Refills(s) 2, Pharmacy: [id number], 155, cm, 02/10/20 16:46:00 EST, Height/Length Dosing, 58, kg, 02/10/20 16:46:00 EST, Weight Dosing Start Date: 02/16/20 Status: Ordered Start: 02-16-2020 take 1 capsule by [facility] once daily potassium chloride 10 mEq Cap-ER 10 mEq = 1 cap(s), Oral, Daily, # 30 cap(s), Refills(s) 2, Pharmacy: [facility] 1155, 155, cm, 02/10/20 16:46:00 EST, Height/Length Dosing, 58, kg, 02/10/20 16:46:00 EST, Weight Dosing Start Date: 02/16/20 Status: Ordered Potassium Chlori de ER Active Comment on above: Take 10 mEq by mouth once daily. predniSONE 10 mg oral tablet (20 sources) Start: 03-28-2022 End: 09-05-2022 predniSONE (DELTASONE) 10 mg tablet Take 1 tablet by mouth as directed. 2 tabs for 1 week, 1 tab for 1 week, 1/2 tab for 1 week 30 tablet 0 03/28/2022 09/05/2022 Discontinued Start: 07-25-2021 predniSONE 10 mg Tab 0 = 1 -, Oral, As Directed, Take 4 tabs by mouth daily x3 days, 3 tabs daily x3 days, 2 tabs daily x3 days, then 1 tab daily x3 days., # 30 tab(s), Refills(s) 0, Pharmacy: [facility] 1155, 155, cm, 07/25/21 16:19:00 EDT, Height/Length Dosing, 58.... Start Date: 07/25/21 Status: Ordered Comment on above: Take 1 tablet by [facility] as directed. 2 tabs for 1 week, 1 tab for 1 week, 1/2 tab for 1 week proparacaine hydrochloride 5 mg/ml ophthalmic solution (1 source) Local Anesthetic Start: 2 End: 2 proparacaine 0.5 % 1 Drop (ALCAINE) 24 hr propranolol hydrochloride 60 mg extended release oral capsule (20 sources) beta-Adrenergic Sil Start: take 1 capsule by mouth once daily propranolol ER (INDERAL LA) 60 mg 24 hr capsule take one capsule by mouth once daily 30 capsule 5 01/10/2023 Active Start: 07-14-2022 End: 10-12-2022 take 1 capsule by mouth once daily propranolol ER (INDERAL LA) 60 mg 24 hr capsule TAKE ONE CAPSULE BY MOUTH ONCE DAILY 90 capsule 1 07/14/2022 Active Start: 12-29-2021 propranolol Re fills(s) 0, High blood pressure Start Date: 12/29/21 Status: Ordered Start: 12-29-2021 propranolol Re fills(s) 0 Start Date: 12/29/21 Status: Ordered Start: 11-23-2021 End: 07-12-2022 take 1 capsule by mouth once daily propranolol ER (INDERAL LA) 60 mg 24 hr capsule TAKE ONE CAPSULE BY MOUTH ONCE DAILY 30 capsule 2 04/13/2022 07/12/2022 Active Comment on above: Take 1 capsule by mo [facility] once daily. TAKE ONE CAPSULE BY MOUTH ONCE DAILY 1000 ml sodium chloride 9 mg/ml injection (20 sources) Start: 01-23-2023 0.9 % sodium chloride (NACL 0.9%) infusion Infuse weekly 1000 mL prior to IVIG infusion and 1000 mL after IVIG infusion 8000 mL 11 01/23/2023 Active Start: 2022 take 1 tablet by [facility] once daily sodium chloride 1,000 mg TbSO Indications: Orthostatic lightheadedness Take 1 tablet by mouth once daily. 0 2022 Active Start: 05-19-2020 End: 01-23-2023 0.9 % sodium chloride (NACL 0.9%) infusion Inject 200 mL/hr intravenously continuous. 1L during IVIG infusions 1000 mL 11 05/19/2020 01/23/2023 Discontinued Comment on above: Inject 200 mL/hr int ravenously continuous. 1L during IVIG infusions Take 1 tablet by [facility] once daily. Infuse weekly 1000 m L prior to IVIG infusion and 1000 mL after IVIG infusion sucralfate 100 mg/ml oral suspension (6 sources) Aluminum Complex Start: 11-17-19 take 10 mL by mouth twice daily sucralfate (CARAFATE) 100 mg/mL suspension Indications: Gastroparesis Take 10 mL by mouth twice daily. 600 mL 0 11/16/2022 Active Comment on above: Take 10 mL by mouth twice daily. topiramate 25 mg oral tablet (16 sources) Start: 03-10-19 End: 06-28-19 take 1 tablet by mouth once daily at bedtime topiramate (TOPAMAX) 25 mg tablet Indications: Tension headache TAKE ONE TABLET BY MOUTH ONCE DAILY AT BEDTIME 30 tablet 2 06/12/2022 06/27/2022 Discontinued (Course of therapy completed) Comment on above: Take 1 tablet by ilia th daily at bedtime. TAKE ONE TABLET BY M OUTH ONCE DAILY AT BEDTIME Problems Active Problems Problem Classification Problem Date Documented Da te Episodic/Chronic Adjustment disorders (3 sources) Posttraumatic stress disorder; Translations: [Reaction to severe stress, unspecified] Onset: 3 10-25-2022 Chronic Anxiety disorders (20 sources) Anxiety; Translations: [Anxiety disorder, unspecified] Onset: 7 09-25-2014 Chronic Attention-deficit, conduct, and disruptive behavior disorders (8 sources) Attention deficit hyperactivity disorder, predominantly inattentive type 04-14-2020 Chronic Blindness and vision defects (3 sources) Blurring of visual image; Translations: [Other visual disturbances] Episodic Cardiac dysrhythmias (20 sources) Postural orthostatic tachycardia syndrome ; Translations: [POTS (postural orthostatic tachycardia syndrome)] 01-31-2022 Chronic Cardiac dysrhythmias (2 sources) Tachycardia; Translations: [Tachycardia, unspecified] Episodic Chronic kidney disease (20 sources) Chronic kidney disease stage 2; Translations: [Chronic kidney disease, stage 2 (mild)] Onset: 2 08-15-2021 Chronic Coagulation and hemorrhagic disorders (1 source) Thrombocytopenic disorder; Translations: [Thrombocytopenia, unspecified] Chronic Conditions associated with dizziness or vertigo (4 sources) Orthostatic hypotension; Translations: [Dizziness and giddiness] Episodic Disorders usually diagnosed in infancy, childhood, or adolescence (2 sources) Behavioral and emotional disorder with onset in childhood; Translations: [Other specified behavioral and emotional disorders with onset usually occurring in childhood and adolescence] Onset: 2 Chronic Esophageal disorders (5 sources) Gastroesophageal reflux disease; Translations: [Gastro-esophageal reflux disease without esophagitis] Onset: 3 12-13-2022 Chronic Gastroduodenal ulcer (except hemorrhage) (8 sources) Gastric ulcer 06-06-2015 Chronic Gastroduodenal ulcer (except hemorrhage) (7 sources) H/O: peptic ulcer; Translations: [Personal history of peptic ulcer disease] Onset: 2 Episodic Headache; including migraine (3 sources) Tension-type headache; Translations: [Tension-type headache, unspecified, not intractable] Chronic Headache; including migraine (2 sources) Headache; Translations: [Headache] 06-01-2017 Episodic Headache; including migraine (1 source) Headache; including migraine; Translations: [HEADACHE UNSPECIFIED] Onset: 2 Immunity disorders (20 sources) Hypogammaglobulinemia; 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] Onset: 4 09-25-2014 Chronic Malaise and fatigue (2 sources) Fatigue; Translations: [Chronic fatigue, unspecified] Chronic Miscellaneous mental health disorders (20 sources) Chronic insomnia; Translations: [Sleep walking disorder] Onset: 2 09-05-2018 Chronic Mood disorders (20 sources) Depressive disorder; Translations: [Depression] Onset: 0 09-25-2014 Chronic Nervous system congenital anomalies (20 sources) Disorder of autonomic nervous system; 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]] Onset: 0 09-25-2014 Chronic Nonmalignant breast conditions (1 source) Galactorrhea not associated with childbirth; Translations: [Galactorrhea not associated with childbirth] Onset: 3 Episodic Nutritional deficiencies (20 sources) Deficiency of macronutrients; Translations: [Mild protein-calorie malnutrition] Onset: 6 02-14-2021 Chronic Nutritional deficiencies (8 sources) Nutritional disorder 05-02-2013 Episodic Other aftercare (1 source) Other halfway (current) drug therapy; Translations: [OTH IMPREGNATOR HELPER CURRENT DRUG THERAPY] Onset: 2 Episodic Other aftercare (1 source) Long-term current use of drug therapy; Translations: [Other halfway (current) drug therapy] Onset: 3 Episodic Other circulatory disease (8 sources) Postural orthostatic tachycardia syndrome 05-22-2015 Episodic Other circulatory disease (1 source) Low blood pressure; Translations: [Hypotension, unspecified] 2022 Episodic Other connective tissue disease (5 sources) Bilateral weakness of upper limbs 08-15-2021 Episodic Other connective tissue disease (7 sources) Recurrent falls 08-15-2021 Episodic Other connective tissue disease (4 sources) Musculoskeletal finding; Translations: [Other symptoms and signs involving the musculoskeletal system] Episodic Other connective tissue disease (2 sources) Spasm; Translations: [Other muscle spasm] Episodic Other connective tissue disease (1 source) Muscle weakness; Translations: [Muscle weakness (generalized)] Episodic Other disorders of stomach and duodenum (1 source) Nonulcer dyspepsia; Translations: [Functional dyspepsia] Onset: 2 Episodic Other disorders of stomach and duodenum (4 sources) Indigestion 12-29-2021 Episodic Other endocrine disorders (20 sources) Disorder of pituitary gland; Translations: [Other disorders of pituitary gland] Onset: 0 09-25-2014 Chronic Other female genital disorders (20 sources) Premenstrual tension syndrome; Translations: [Premenstrual tension syndrome] 05-04-2009 Chronic Other gastrointestinal disorders (20 sources) Ileostomy present; Translations: [Encounter for attention to ileostomy] Onset: 6 07-07-2015 Chronic Other gastrointestinal disorders (2 sources) Chronic idiopathic constipation; Translations: [Chronic idiopathic constipation] Chronic Other gastrointestinal disorders (1 source) Chronic idiopathic constipation; Translations: [Chronic idiopathic constipation] Onset: 3 Chronic Other gastrointestinal disorders (2 sources) Altered bowel function; Translations: [Change in bowel habit] Onset: 2 Episodic Other gastrointestinal disorders (6 sources) Alteration in bowel elimination 12-29-2021 Episodic Other hereditary and degenerative nervous system conditions (5 sources) Stiff-man syndrome; 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 Other hereditary and degenerative nervous system conditions (20 sources) Functional movement disorder; Translations: [Extrapyramidal and movement disorder, unspecified] Onset: 3 Chronic Other hereditary and degenerative nervous system conditions (1 source) Stiff-man syndrome; 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] Onset: 3 Chronic Other infections; including parasitic (20 sources) Disorder due to infection; Translations: [Unspecified infectious disease] Onset: 2 Episodic Other infections; including parasitic (1 source) Unspecified infectious disease; Translations: [Recurrent infections] Onset: 3 Episodic Other injuries and conditions due to external causes (1 source) Bezoar; Translations: [Foreign body of alimentary tract, part unspecified, initial encounter] Episodic Other liver diseases (20 sources) Hepatic infarction; Translations: [Infarction of liver] Onset: 6 05-23-2015 Chronic Other liver diseases (1 source) Abnormal levels of other serum enzymes; Translations: [Elevated liver enzymes] Onset: 2 Episodic Other nervous system disorders (3 sources) Demyelinating disease of central nervous system; Translations: [Demyelinating disease of central nervous system, unspecified] Chronic Other nervous system disorders (1 source) Cognitive communication disorder; Translations: [Cognitive communication deficit] 10-19-2022 Chronic Other nervous system disorders (1 source) Cognitive deficit in communication skills; Translations: [Cognitive communication deficit] 10-19-2022 Chronic Other nervous system disorders (3 sources) Impaired cognition; Translations: [Other symptoms and signs involving cognitive functions and awareness] 04-20-2021 Episodic Other nervous system disorders (10 sources) Tremor; Translations: [Tremor, unspecified] 08-04-2021 Episodic Other nervous system disorders (1 source) Paresthesia of skin; Translations: [PARESTHESIA OF SKIN] Onset: 2 Episodic Other nervous system disorders (7 sources) Paresthesia 08-15-2021 Episodic Other nervous system disorders (2 sources) Skin sensation disturbance; Translations: [Unspecified disturbances of skin sensation] Episodic Other nervous system disorders (2 sources) Incoordination; Translations: [Other lack of coordination] Episodic Other nervous system disorders (2 sources) Abnormal gait; Translations: [Unsteadiness on feet] Episodic Other nervous system disorders (2 sources) Disturbance in speech; Translations: [Other speech disturbances] Episodic Other nutritional; endocrine; and metabolic disorders (4 sources) Disorder of iron metabolism; Translations: [Disorder of iron metabolism, unspecified] Chronic Other upper respiratory infections (7 sources) Chronic sinusitis; Translations: [Chronic sinusitis, unspecified] Onset: 2 Chronic Paralysis (5 sources) Paraparesis 08-15-2021 Chronic Residual codes; unclassified (20 sources) Sleeptalking; Translations: [Other sleep disorders] Onset: 2 Chronic Residual codes; unclassified (20 sources) Sleep related movement disorder; Translations: [Other sleep related movement disorders] Onset: 2 Chronic Residual codes; unclassified (20 sources) Tobacco user; Translations: [Tobacco use] 09-25-2014 Episodic Residual codes; unclassified (1 source) Acquired absence of organ; Translations: [Acquired absence of other specified parts of digestive tract] Onset: 2 Episodic Residual codes; unclassified (1 source) History of clinical finding in subject; Translations: [Personal history of other specified conditions] Episodic Screening and history of mental health and substance abuse codes (5 sources) Ex-smoker; Translations: [Personal history of nicotine dependence] 12-13-2022 Episodic Spondylosis; intervertebral disc disorders; other back problems (20 sources) Low back pain; Translations: [Low back pain] 09-25-2014 Episodic Substance-related disorders (20 sources) Nicotine dependence; Translations: [Nicotine dependence, unspecified, uncomplicated] Onset: 2 01-31-2022 Chronic Thyroid disorders (20 sources) Hypothyroidism; Translations: [Hypothyroidism, unspecified] Onset: 0 03-03-2009 Chronic Unclassified (20 sources) SUMMARY Onset: 6 02-14-2021 Unclassified (1 source) CONTACT W/AND (SUSP) EXPOS COVID-19; Translations: [CONTACT W/AND (SUSP) EXPOS COVID-19] Onset: 2 Unclassified (1 source) NO SHOW Unclassified (2 sources) Patient encounter status 04-17-2022 Past or Other Problems Problem Classification Problem Date Documented Da te Episodic/Chronic Abdominal pain (20 sources) Generalized abdominal pain; Translations: [Generalized abdominal pain] Onset: 09-25-2008 09-25-2008 Episodic Complications of surgical procedures or medical care (20 sources) Postoperative ileus; Translations: [Other postprocedural complications and disorders of digestive system] Onset: 07-15-2015 07-15-2015 Episodic Deficiency and other anemia (20 sources) Nutritional anemia; Translations: [Other vitamin B12 deficiency anemias] Onset: 07-30-2008 07-30-2008 Episodic Deficiency and other anemia (20 sources) Anemia due to multiple mechanisms; Translations: [Other specified anemias] Onset: 05-23-2015 05-23-2015 Episodic Epilepsy; convulsions (20 sources) Seizure; Translations: [Unspecified convulsions] Onset: 09-25-2014 09-25-2014 Episodic Immunizations and screening for infectious disease (20 sources) Encounter for screening for other viral diseases; Translations: [Serology positive] Onset: 12-07-2020 Resolved: 12-07-2020 Episodic Intestinal obstruction without hernia (20 sources) Intussusception of intestine; Translations: [Intussusception] Onset: 01-27-2022 01-27-2022 Episodic Malaise and fatigue (20 sources) Fatigue; Translations: [Weakness] Onset: 08-03-2021 01-19-2021 Episodic Nausea and vomiting (20 sources) Vomiting; Translations: [Vomiting, unspecified] Onset: 09-25-2014 09-25-2014 Episodic Neoplasms of unspecified nature or uncertain behavior (20 sources) Neoplasm of pituitary gland; Translations: [Neoplasm of unspecified behavior of endocrine glands and other parts of nervous system] Onset: 03-03-2009 01-27-2022 Episodic Other aftercare (20 sources) Patient encounter status; Translations: [Encounter for therapeutic drug level monitoring] Onset: 05-25-2015 07-15-2015 Episodic Other connective tissue disease (1 source) Muscle weakness (generalized); Translations: [Muscle weakness] Onset: 07-14-2022 Episodic Other connective tissue disease (1 source) Other muscle spasm; Translations: [Spasm of muscle] Onset: 07-03-2022 Episodic Other connective tissue disease (1 source) Other symptoms and signs involving the musculoskeletal system; Translations: [Proximal leg weakness] Onset: 03-10-2022 Episodic Other disorders of stomach and duodenum (20 sources) Gastroparesis syndrome; Translations: [Gastroparesis] Onset: 06-09-2022 Episodic Other disorders of stomach and duodenum (2 sources) Gastroparesis; Translations: [Gastroparesis] Onset: 06-09-2022 Episodic Other gastrointestinal disorders (20 sources) Bowel problem; Translations: [Disease of intestine, unspecified] Onset: 01-17-2022 Episodic Other gastrointestinal disorders (1 source) Disease of intestine, unspecified; Translations: [Enteropathy] Onset: 01-17-2022 Episodic Other hematologic conditions (20 sources) Cytopenia; Translations: [Disease of blood and blood-forming organs, unspecified] Onset: 01-17-2022 Episodic Other hematologic conditions (1 source) Disease of blood and blood-forming organs, unspecified; Translations: [Cytopenia] Onset: 01-17-2022 Episodic Other liver diseases (20 sources) Enzyme level - finding; Translations: [Transaminitis] Onset: 01-27-2022 01-27-2022 Episodic Other nervous system disorders (20 sources) Postoperative pain ; Translations: [Other acute postprocedural pain] Onset: 07-15-2015 07-15-2015 Episodic Other nervous system disorders (1 source) Unsteadiness on feet; Translations: [Gait instability] Onset: 10-18-2022 Episodic Other nervous system disorders (1 source) Other speech disturbances; Translations: [Other speech disturbance] Onset: 10-18-2022 Episodic Other nervous system disorders (1 source) Other lack of coordination; Translations: [Incoordination of extremity] Onset: 10-18-2022 Episodic Other screening for suspected conditions (not mental disorders or infectious disease) (2 sources) Other specified abnormal findings of blood chemistry; Translations: [Other abnormal blood chemistry] Onset: 07-03-2022 Episodic Phlebitis; thrombophlebitis and thromboembolism (20 sources) Portal vein thrombosis; Translations: [Portal vein thrombosis] Onset: 05-23-2015 05-23-2015 Episodic Residual codes; unclassified (2 sources) Acquired absence of other specified parts of digestive tract; Translations: [ACQ ABSENCE OTH PART DIGESTV TRACT] Onset: 08-05-2021 Episodic Residual codes; unclassified (20 sources) History of colectomy; Translations: [Acquired absence of other specified parts of digestive tract] Onset: 01-27-2022 12-29-2021 Episodic Residual codes; unclassified (20 sources) History of neoplasm of pituitary gland; Translations: [Personal history of other specified conditions] Onset: 01-27-2022 01-27-2022 Episodic Residual codes; unclassified (1 source) Personal history of other specified conditions; Translations: [History of seizure] Onset: 06-29-2022 Episodic Syncope (20 sources) Syncope; Translations: [Syncope and collapse] Onset: 05-23-2015 02-14-2021 Episodic Unclassified (2 sources) autoimmune disease of the nervous system( Confirmed ) 09-06-2012 Unclassified (2 sources) functional pituitary tumor( Confirmed ) 10-27-2010 Unclassified (8 sources) History of excision of intestinal structure 10-02-2013 Unclassified (6 sources) autoimmune disease of the nervous system 09-06-2012 Unclassified (6 sources) functional pituitary tumor 10-27-2010 Results Test Name Value Interpretation Reference Range Facility [facility] 03-06-2023 CNPN Normal [facility] CNPNon 03-05-2023 CNPN Normal [facility] CNPNon 02-21-2023 CNPN Normal [facility] Prolactinon 02-09-2023 Prolactin 7.70 ng/mL Normal 4.79-23.3 [facility] Comment on above: Result Comment: The presence of macroprolactin may cause interference in female patients with various endocrinological diseases or during . Performed By: #### H CG, ZFAST, BMP, TSHX #### [facility] [address] [place] [address] Reactor Technician: Tom Blackmon MD #### PROL #### [address] [address] Reactor Technician: Joe Frank MD Basic Metabolic Profon 02-08 Anion gap [Moles/Vol] 10 mmol/L Normal 11-05 [facility] Comment on above: Performed By: #### H CG, ZFAST, BMP, TSHX #### [facility] [address] [place] [address] Reactor Technician: Tom Blackmon MD #### PROL #### [facility] [address] [place] [address] Reactor Technician: Joe Frank MD BUN/CRE Ratio 12 Normal 11-08 [facility] Comment on above: Performed By: #### H CG, ZFAST, BMP, TSHX #### [facility] [address] [place], [place] [id number] Reactor Technician: Tom Blackmon MD #### PROL #### [address] [place], [place] [id number] Reactor Technician: Joe Frank MD Calcium [Mass/Vol] 9.6 mg/dL Normal 8.6-10.4 [facility] Comment on above: Performed By: #### H CG, ZFAST, BMP, TSHX #### [facility] [address] [place], [place] [id number] Reactor Technician: Tom Blackmon MD #### PROL #### [address] [id number] Reactor Technician: Joe Frank MD Chloride [Moles/Vol] 100 mmol/L Normal 98-107 [facility] Comment on above: Performed By: #### H CG, ZFAST, BMP, TSHX #### [facility] [address] [place], [place] [id number] Reactor Technician: Tom Blackmon MD #### PROL #### [address] [id number] Reactor Technician: Joe Frank MD CO2 [Moles/Vol] 25 mmol/L Normal 20-31 [facility] Comment on above: Performed By: #### H CG, ZFAST, BMP, TSHX #### [facility] [address] [place], [place] [id number] Reactor Technician: Tom Blackmon MD #### PROL #### [address] [id number] Reactor Technician: Joe Frank MD Creatinine [Mass/Vol] 1.1 mg/dL High 0.5-0.9 [facility] Comment on above: Performed By: #### H CG, ZFAST, BMP, TSHX #### [facility] [address] [place], [place] [id number] Reactor Technician: Tom Blackmon MD #### PROL #### [address] [id number] Reactor Technician: Joe Frank MD GFR/1.73 sq M.predicted among non-blacks MDRD (S/P/Bld) [Vol rate/Area] mL/min/{1.73_m2} Normal >60 [facility] Comment on above: Result Comment: These results are not intended for use in patients <18 years of age. eGFR results are calculated without a race factor using the 2020 CKD-EPI equation. Careful clinical correlation is recommended, particularly when comparing to results calculated using previous equations. The CKD-EPI equation is less accurate in patients with extremes of muscle mass, extra-renal metabolism of creatine, excessive creatine ingestion, or following therapy that affects renal tubular secretion. Performed By: #### H CG, ZFAST, BMP, TSHX #### [facility] [address] [place], [place] [id number] Reactor Technician: Tom Blackmon MD #### PROL #### [address] [id number] Reactor Technician: Joe Frank MD Glucose [Mass/Vol] 99 mg/dL Normal 70-99 [facility] Comment on above: Performed By: #### H CG, ZFAST, BMP, TSHX #### [facility] [address] [place], [place] [id number] Reactor Technician: Tom Blackmon MD #### PROL #### [address] [id number] Reactor Technician: Joe Frank MD Potassium [Moles/Vol] 4.1 mmol/L Normal 3.7-5.3 [facility] Comment on above: Performed By: #### H CG, ZFAST, BMP, TSHX #### [facility] [address] [place] [address] Reactor Technician: Tom Blackmon MD #### PROL #### [address] [place] [address] Reactor Technician: Joe Frank MD Sodium [Moles/Vol] 135 mmol/L Normal 135-144 [facility] Comment on above: Performed By: #### H CG, ZFAST, BMP, TSHX #### [facility] [address] [place] [address] Reactor Technician: Tom Blackmon MD #### PROL #### [address] [id number] Reactor Technician: Joe Frank MD Urea nitrogen [Mass/Vol] 13 mg/dL Normal 6-20 [facility] Comment on above: Performed By: #### H CG, ZFAST, BMP, TSHX #### [facility] [address] [place] [address] Reactor Technician: Tom Blackmon MD #### PROL #### [address] [id number] Reactor Technician: Joe Frank MD HCG Screen, Bloodon 02-08- 23 HCG Screen, Blood Negative Normal NEG [facility] Comment on above: Result Comment: Spec imens with hCG levels near the threshold of the test (25 mIU/mL) may give a negative or indeterminate result. In such cases, another test should be performed with a new specimen in 48-72 hours. If early is suspected clinically in this setting, correlation with quantitative serum b-hCG level is suggested. [facility] has confirmed the use of plasma for this test. This has not been cleared or approved by the U.S. Food and Drug Administration. The FDA has determined that such clearance is not necessary. Performed By: #### H CG, ZFAST, BMP, TSHX #### [facility] [address] [place] [address] Reactor Technician: Tom Blackmon MD #### PROL #### [address] [place], [place] [id number] Reactor Technician: Joe Frank MD Patient fasting?on 3 Patient fasting? NO Normal [facility] Comment on above: Performed By: #### H CG, ZFAST, BMP, TSHX #### [facility] [address] [place], [place] 2644[address] Reactor Technician: Tom Blackmon MD #### PROL #### [address] [id number] Reactor Technician: Joe Frank MD TSH w/reflex to FT4on 2022 Thyroid Stim. Horm. 2.58 uIU/mL Normal 0.30-5.00 [facility] Comment on above: Performed By: #### H CG, ZFAST, BMP, TSHX #### [facility] [address] [place], [place] [phone] Reactor Technician: Tom Blackmon MD #### PROL #### [address] [id number] Reactor Technician: Joe Frank MD [facility] 02-06-2023 [facility] NURSING PROGon 12-07-2022 NURSING PROG HNO ID: [id number] Author: Magy Bonilla RN Service: ? Author Type: Registered Nurse Type: Nursing Progress Note Filed: 12/07/2022 9:03 AM Note Text: [facility] POST PROCEDURE FOLLOW UP CALL [phone] (home) Date Phone Call Made: 12/07/2022 Attempt: Attempt #1 Spoke to: Unable to contact patient Magy Bonilla RN [facility] ANES POSTPROC EVALon 023 ANES POSTPROC EVAL HNO ID: [id number] Author: Arsh Hernandez MD Service: Anesthesiology Author Type: Anesthesiologist Type: Anesthesia Postprocedure Evaluation Filed: 12/06/2022 1:55 PM Note Text: POST ANESTHESIA EVALUATION NOTE : 1985 Procedure Summary Date: 12/06/22 Room / Location: [facility] Anesthesia Start: 1008 Anesthesia Stop: 1131 Procedure: EGD - THERAPEUTIC, EUS, OR TUBE INTERVENTIONS Diagnosis: Gastroparesis (Established gastroparesis) Scheduled Providers: Becka Rubi DO; Phan Starks APRN.HAND SPRAYER; Arsh Hernandez MD Responsible Provider: Arsh Hernandez MD Anesthesia Type: general ASA Status: 3 Anesthesia Type: general Airway Type: ETT Last Vitals Vitals Value Taken Time BP 107/77 12/06/22 1245 Temp 36.9 ?C (98.4 ?F) 12/06/22 1245 HR SpO2 68 12/06/22 1246 Resp 18 12/06/22 1246 SpO2 99 % 12/06/22 1246 Vitals shown include unvalidated device data. Post Anesthesia Patient Status Patient Evaluation: PACU. PACU/ICU Patient Condition: stable. Anticipated Disposition: phase 2 then home. Neurological Status: aware and responsive. Pulmonary Status: breathing comfortably on room air Airway Control: returned to baseline unsupported. Cardiovascular Status: stable. Pain Management: clinically adequate - multimodal analgesia pain management approach Postoperative Hydration: acceptable. Intraoperative Events: no significant anesthesia events Post Operative Nausea/Vomiting Status: no significant post operative nausea or vomiting Recommendation: further care per PACU/ICU/floor team. Anesthesia Observations No Documentation SIGNATURE: Arsh Hernandez MD PATIENT NAME: Ben Barr DATE: December 06, 2022 TIME: 1:55 PM CSN: [id number] [facility] ANES PRE-OPon 12-06-2022 ANES PRE-OP HNO ID: [id number] Author: Arsh Hernandez MD Service: Anesthesiology Author Type: Anesthesiologist Type: Anesthesia Preprocedure Evaluation Filed: 12/06/2022 8:39 AM Note Text: ANESTHESIOLOGY DAY OF SURGERY NOTE : 1985 Procedure Information Date/Time: 12/06/22 0930 Scheduled providers: Becka Rubi DO; Phan Starks APRN.HAND SPRAYER; Arsh Hernandez MD Procedure: EGD - THERAPEUTIC, EUS, OR TUBE INTERVENTIONS Location: [facility] Estimated body mass index is 30.66 kg/m? as calculated from the following: Height as of 11/22/22: 152.4 cm (5'). Weight as of 11/22/22: 71.2 kg (157 lb). Most recent hematocrit and potassium results: Hematocrit 37.7 10/16/2022 Potassium 4.1 11/21/2022 Relevant Problems CARDIO (+) Liver infarct (+) Portal vein thrombosis ENDO (+) Hypothyroidism -RENAL (+) Liver infarct (+) Stage 2 chronic kidney disease NEURO-PSYCH (+) H/O: pituitary tumor (+) Recurrent convulsions (HCC) I - PHYSICAL EVALUATION AIRWAY Patient intubated: No. Tracheostomy tube not present Mallampati: II. TM distance: >3 FB. Neck ROM: full ROM without neurological symptoms. Mouth opening: adequate. Short neck: no. Thick neck: no Souza present: no Microretrognathia/Micronagt hia/Recessed Chin: No DENTAL Dental findings: teeth intact. II - ANESTHESIA PLAN ASA Score: 3 Anesthetic Plan: general Airway type: ETT The patient is not a current smoker. NPO Status: adequate Beta Sil Administration of chronic beta sil medication planned. Monitoring Plan Monitoring plan: standard ASA. Post Procedure Analgesic Plan Postoperative analgesic plan: parenteral or oral opioids. Informed Consent Anesthetic risks, benefits, alternatives, personnel and consent discussed: yes. Patient / Responsible Constitution Party agrees to proceed: yes Patient / Surrogate agrees to blood products: blood products not planned Significant changes in the patient condition since the History and Physical, not otherwise documented in primary service progress note: no. Potential Anesthesia issues that may suggest increased risk of complications or contraindication to planned procedure: none. No vitals data found for the desired time range. Outpatient Medications as of 12/06/2022 Medication Sig - omega-3 fatty acids 1,000 mg cap Take 1 capsule by mouth once daily. - omeprazole (PRILOSEC) 40 mg capsule Take 1 capsule by mouth two times a day. - potassium chloride SR (MICRO-K) 10 mEq CR capsule Take 10 mEq by mouth once daily. - pantoprazole DR (PROTONIX) 40 mg tablet Take 1 tablet by mouth twice daily. Take after POP procedure (Patient not taking: Reported on 11/22/2022) - sucralfate (CARAFATE) 100 mg/mL suspension Take 10 mL by mouth twice daily. (Patient not taking: Reported on 11/22/2022) - diazePAM (VALIUM) 5 mg tablet Take 1 tablet by mouth twice daily for 30 days. - sodium chloride 1,000 mg TbSO Take 1 tablet by mouth once daily. - immune globulin, human,, IgG, (GAMMAGARD LIQUID) 10 % soln Inject 250 mL intravenously one time a week. - propranolol ER (INDERAL LA) 60 mg 24 hr capsule TAKE ONE CAPSULE BY MOUTH ONCE DAILY - ondansetron orally disintegrating (ZOFRAN ODT) 4 mg disintegrating tablet TAKE ONE TABLET BY MOUTH EVERY 8 HOURS NEEDED FOR NAUSEA VOMITING - busPIRone (BUSPAR) 10 mg tablet Take 30 mg by mouth twice daily. - 0.9 % sodium chloride (NACL 0.9%) infusion Inject 200 mL/hr intravenously continuous. 1L during IVIG infusions - diphenhydrAMINE (BENADRYL) 25 mg capsule Take 1 capsule by mouth as directed. Use as directed. Facility-Administered Medications as of 12/06/2022 Medication Dose Route Frequency - lidocaine 10 mg/mL (1 %) 1-2 mg injection (XYLOCAINE) 0.1-0.2 mL INTRADERMAL PRN - lactated ringers iv infusion 30 mL/hr INTRAVENOUS CONTINUOUS - ciprofloxacin iv piggyback 400 mg in D5W 200 mL (CIPRO) 400 mg INTRAVENOUS Pre-Op Once - metroNIDAZOLE iv piggyback 500 mg in NaCl (iso-osmotic) 100 mL (FLAGYL) 500 mg INTRAVENOUS Pre-Op Once I have interviewed and examined the patient. I have reviewed the medical record and/or the pre-anesthesia evaluation, pertinent labs, and test results. This contains updated information obtained within 48 hours of Surgery/Procedure. SIGNATURE: Arsh Hernandez MD PATIENT NAME: Ben Barr DATE: December 06, 2022 TIME: 8:38 AM CSN: [id number] [facility] EGD - THERAPEUTIC, EUS, OR T UBE INTERVENTIONSon 12-06-2022 [facility] HISTORY PHYSICALon HISTORY PHYSICAL HNO ID: [id number] Author: Katerine Clarke PA Service: Gastroenterology Author Type: Physician Account Processor Type: HANDP Filed: 12/06/2022 8:49 AM Note Text: UPDATED HISTORY AND PHYSICAL EXAMINATION SERVICE DATE: 12/06/2022 SERVICE TIME: 8:46 AM SERVICE: Becka Rubi DO PHYSICAL EXAM MUST BE COMPLETED ON ADMISSION The History and Physical (completed in the past 30 days) has been reviewed and the patient has been examined. The contents accurately reflect the patient's condition with the following additions or revisions since the HANDP was completed. Patient denies any changes to health since last examination. Planned procedure for today is EGD w Endoscopic Pyloromyotomy Medication reconciliation list reviewed in [facility]. Past medical history, past surgical history, social history and family history reviewed and updated in [facility]. ALLERGIES Allergen Reactions Antidepressants [Se* Other: See Comments It knocks me out. Rondec [Bromphenira* crying for 12 solid hours-per mom Latex, Natural Rubb* Rash, Swelling See [facility] for vital signs Examination indicates no changes. On examination today: Lungs: Clear to auscultation bilaterally. Heart: RRR, Normal S1/S2, No significant murmurs, rubs, gallops or thrills appreciated. Abdomen: BS+ in all quadrants, abdomen is soft, non tender, and without guarding. Assessment: Gastroparesis Plan: EGD w Endoscopic Pyloromyotomy This HANDP can be found in the Electronic Medical Record dated 11/16/22 by Becka Rubi DO. SIGNATURE: IRENA Cabrales PATIENT NAME: Ben Barr DATE: December 06, 2022 TIME: 8:[address] [facility] Upper GI endoscopyon 10-18-2 023 Upper GI endoscopy [facility] Gastrointestinal Endoscopy Patient Name: Ben Barr Procedure Date: 12/06/2022 10:03 AM Date of : 1985 Admit Type: Outpatient Age: 37 Room: [address] [address] Gender: Female Note Status: Finalized Attending MD: Becka Rubi MD Procedure: Upper GI endoscopy Indications: Gastroparesis, For therapy of gastroparesis Providers: Becka Rubi MD Patient Profile: Refer to note in patient chart for documentation of history and physical. Patient has symptoms of chronic dyspepsia. Referring Physician: Becka Rubi MD (Referring MD) Medicines: General Anesthesia Complications: No immediate complications. Estimated blood loss: Minimal. Requesting Provider: Procedure: Pre-Anesthesia Assessment: - Prior to the procedure, a History and Physical was performed, and patient medications and allergies were reviewed. The patient is competent. The risks and benefits of the procedure and the sedation options and risks were discussed with the patient. All questions were answered and informed consent was obtained. Patient identification and proposed procedure were verified by the physician, the nurse and the speech correction consultant in the pre-procedure area in the endoscopy suite. Mental Status Examination: alert and oriented. Airway Examination: normal oropharyngeal airway and neck mobility. Respiratory Examination: clear to auscultation. CV Examination: normal. Prophylactic Antibiotics: The patient does not require prophylactic antibiotics. Prior Anticoagulants: The patient has taken no anticoagulant or antiplatelet agents. ASA Grade Assessment: II - A patient with mild systemic disease. After reviewing the risks and benefits, the patient was deemed in satisfactory condition to undergo the procedure. The anesthesia plan was to use general anesthesia. Immediately prior to administration of medications, the patient was re-assessed for adequacy to receive sedatives. The heart rate, respiratory rate, oxygen saturations, blood pressure, adequacy of pulmonary ventilation, and response to care were monitored throughout the procedure. The physical status of the patient was re-assessed after the procedure. After obtaining informed consent, the endoscope was passed under direct vision. Throughout the procedure, the patient's blood pressure, pulse, and oxygen saturations were monitored continuously. The Endoscope was introduced through the mouth, and advanced to the second part of duodenum. The upper GI endoscopy was accomplished without difficulty. The patient tolerated the procedure well. Moderate Sedation: Patient underwent intubation and general anesthesia. No sedation was administered for this procedure. Total Procedure Duration: 0 hours 52 minutes 42 seconds Findings: The oropharynx was normal. The examined esophagus was normal. Suspect gastroparesis due to absence of peristalsis and patient symptoms. Following the diagnostic portion of the EGD, the endoscope was prepared using a clear cap. The scope was re-advanced into the stomach and a sutable location for pyloromyotomy was utilited on the lesser-curavature of the stomach 3-4cm superior from the pyloric opening. The site was injected with 8mL of saline and methylene blue mixture and a mucosal bleb was raised. A 2.0cm transverse mucosotomy was made with TT knife. The submucosal dissection was carried out using TT knife until the pylorus was identified. Any small vessels within the submucosal tunnel were cauterized. The pyloric muscle appearred abnormal with several separate bands of tissue. 2 of the 3 bands were then systematically divided using TT knife electrocautery until the duodenal submucosa was observed. Due to the abnormal tissue further division was abandoned to avoid risk of full thickness injury. There was no evidence of full thickness injury. There was also no evidence of injury to the duodenal mucosa. The tunnel was irrigated and hemostasis was completed. Mucosotomy was closed with 4 clips, spaced 4mm apart. The patient tolerated the procedure well. The in the duodenum was normal. Impression: - Normal oropharynx. - Normal esophagus. - Gastroparesis, idiopathic etiology. Pylorus extremely abnormal with several bands of tissue without clear definative pylorus. - Multiple pyloric bands divided however further division was abandoned to prevent risk of injury. May consider pyloroplasty in future. - Normal Duodenum - No specimens collected. Recommendation: - Discharge patient to home (ambulatory). - Full liquid diet for 2 weeks. - Continue present medications. - Recommend acid suppression medication for 1 month. - Return to my office as previously scheduled. Consider pyloroplasty in future Procedure Code(s): --- Professional --- 73150, Esophagogastroduodenoscopy, flexible, transoral; diagnostic, including col (more content not included)... Normal [facility] NURSING PROGon 12-01-2022 NURSING PROG HNO ID: [id number] Author: Debra Munson RN Service: ? Author Type: Registered Nurse Type: Nursing Progress Note Filed: 12/01/2022 1:30 PM Note Text: [facility] ENDOSCOPY PRE PROCEDURE CALL Yadira. I'm calling from [facility] endoscopy to provide you with the information for your surgery/procedure tomorrow. 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 What is the best number for your speedboat driver to be reached at tomorrow for updates? Your speedboat driver is allowed to wait here with you or they may drop you off and come back to pick you up. Patient instructed: Do not eat anything the morning of the procedure, including gum, hard candy and mints.Yes Patient instructed not bring any valuables, jewelry, or hernandez and wear comfortable clothing. Do not wear makeup, lotion, or finger ghanaian. Yes Patient instructed: Please bring a list of medications including over the counter, vitamin, and herbals. If you are on inhalers, please do them in the morning before your test and bring them with you.Yes Blood pressure, seizure, or thyroid medications may be taken with a couple sips of water ONLY 4 hours prior to arrival time. Is the patient on blood thinners?no If so,verify if pt contacted the prescribing doctor to see how long they may hold blood thinners prior to procedure. Are you diabetic?No If so, advise pt to contact prescribing doctor to verify if any modifications are needed for insulin and/or pills Reminder:diabetic medication instructions should be given by the patient's ordering physician. If blood sugar drops, they can have CLEAR liquids to bring it up until 3 hours prior to arrival time. Hospitalizations: No Procedure and/or bowel prep instructions given to patient and questions answered: Yes, and they verbalized their understanding of instructions given Any barriers to Patient learning (confusion? Therapy Coordinator needed?): Patient/Patient Broach Grinder responded appropriately on phone. Please complete your Pre-Check In paperwork in My Chart if applicable. If patient needs to reschedule please call: [phone] [facility] phone number: [phone] Type of instruction given: Verbal by telephone contact. Normal [facility] HISTORY PHYSICALon HISTORY PHYSICAL Normal [facility] CNPNon 11-21-2022 CNPN Normal [facility] Comprehensive metabolic 2000 panelon 11-21-2022 Albumin [Mass/Vol] 4.5 g/dL Normal 3.9-4.9 [facility] Comment on above: Order Comment: Speci men Type: BLOOD SPECIMENOrdering Facility: [facility] Address: [address] [address] Performed By: #### 2 4323-8 ####[facility] LABCLIA [id number] [place] [address] ALP [Catalytic activity/Vol] 75 U/L Normal 34-123 [facility] Comment on above: Order Comment: Speci men Type: BLOOD SPECIMENOrdering Facility: [facility] Address: [address] [address] Performed By: #### 2 4323-8 ####[facility] LABCLIA [id number] [place] [address] ALT [Catalytic activity/Vol] 19 U/L Normal 7-38 [facility] Comment on above: Order Comment: Speci men Type: BLOOD SPECIMENOrdering Facility: [facility] Address: [address] [address] Performed By: #### 2 4323-8 ####[facility] LABCLIA [id number] [place] [address] Anion gap [Moles/Vol] 7 mmol/L Low 9-18 [facility] Comment on above: Order Comment: Speci men Type: BLOOD SPECIMENOrdering Facility: [facility] Address: [address] [address] Performed By: #### 2 4323-8 ####[facility] LABCLIA [id number] [place] [address] AST [Catalytic activity/Vol] 25 U/L Normal 13-35 [facility] Comment on above: Order Comment: Speci men Type: BLOOD SPECIMENOrdering Facility: [facility] Address: [address] [place] [address] Performed By: #### 2 4323-8 ####[facility] LABCLIA [id number] [place] [address] Bilirubin [Mass/Vol] 0.4 mg/dL Normal 0.2-1.3 [facility] Comment on above: Order Comment: Speci men Type: BLOOD SPECIMENOrdering Facility: [facility] Address: [address] [address] Performed By: #### 2 4323-8 ####[facility] LABCLIA [id number] [place] [address] Calcium [Mass/Vol] 10.0 mg/dL Normal 8.5-10.2 [facility] Comment on above: Order Comment: Speci men Type: BLOOD SPECIMENOrdering Facility: [facility] Address: [address] [place] [address] Performed By: #### 2 4323-8 ####[facility] LABCLIA [id number] [place] [address] Chloride [Moles/Vol] 105 mmol/L Normal 97-105 [facility] Comment on above: Order Comment: Speci men Type: BLOOD SPECIMENOrdering Facility: [facility] Address: [address] [address] Performed By: #### 2 4323-8 ####[facility] LABCLIA [id number] [place] [address] CO2 [Moles/Vol] 27 mmol/L Normal 22-30 [facility] Comment on above: Order Comment: Speci men Type: BLOOD SPECIMENOrdering Facility: [facility] Address: [address] [address] Performed By: #### 2 4323-8 ####[facility] LABCLIA [id number] [place] [address] Creatinine [Mass/Vol] 1.08 mg/dL High 0.58-0.96 [facility] Comment on above: Order Comment: Speci men Type: BLOOD SPECIMENOrdering Facility: [facility] Address: [address] [place] [address] Performed By: #### 2 4323-8 ####[facility] LABCLIA [id number] [place] [address] Creatinine and Glomerular filtration rate.predicted panel (S/P/Bld) 68 mL/min/1.73m??? Normal >=60 [facility] Comment on above: Order Comment: Speci men Type: BLOOD SPECIMENOrdering Facility: [facility] Address: [address] [place] [address] Result Comment: Breana mated Glomerular Filtration Rate (eGFR) is calculated using the 2020 CKD-EPI creatinine equation. This equation utilizes serum creatinine, sex, and age as parameters. The creatinine assay has traceable calibration to isotope dilution-mass spectrometry. Refer to KDIGO guidelines for clinical interpretation. In patients with unstable renal function, e.g. those with acute kidney injury, the eGFR may not accurately reflect actual GFR. Performed By: #### 2 4323-8 ####[facility] LABCLIA [id number] [place] [address] Glucose [Mass/Vol] 96 mg/dL Normal 74-99 [facility] Comment on above: Order Comment: Speci ifeoma Type: BLOOD SPECIMENOrdering Facility: [facility] Address: [address] [place] [address] Result Comment: The [place] Diabetes Association (ADA) provides guidance for cutoff values for fasting glucose and random glucose. The ADA defines fasting as no caloric intake for at least 8 hours. Fasting plasma glucose results between 100 to 125 mg/dL indicate increased risk for diabetes (prediabetes).Fasting plasma glucose results greater than or equal to 126 mg/dL meet the criteria for diagnosis of diabetes. In the absence of unequivocal hyperglycemia, results should be confirmed by repeat testing. In a patient with classic symptoms of hyperglycemia or hyperglycemic crisis, random plasma glucose results greater than or equal to 200 mg/dL meet the criteria for diagnosis of diabetes.Reference: Standards of Medical Care in Diabetes 2016, Canadian Diabetes Association. Diabetes Care. 2016.39(Suppl 1). Performed By: #### 2 4323-8 ####[facility] LABCLIA [id number] [place] [address] Potassium [Moles/Vol] 4.1 mmol/L Normal 3.7-5.1 [facility] Comment on above: Order Comment: Speci men Type: BLOOD SPECIMENOrdering Facility: [facility] Address: [address] [place] [address] Performed By: #### 2 4323-8 ####[facility] LABCLIA [id number] [place] [address] Protein [Mass/Vol] 7.8 g/dL Normal 6.3-8.0 [facility] Comment on above: Order Comment: Speci men Type: BLOOD SPECIMENOrdering Facility: [facility] Address: [address] [place] [address] Performed By: #### 2 4323-8 ####[facility] LABCLIA [id number] [place] [address] Sodium [Moles/Vol] 139 mmol/L Normal 136-144 [facility] Comment on above: Order Comment: Speci men Type: BLOOD SPECIMENOrdering Facility: [facility] Address: [address] [place] [address] Performed By: #### 2 4323-8 ####[facility] LABCLIA [id number] [place] [address] Urea nitrogen [Mass/Vol] 13 mg/dL Normal 7-21 [facility] Comment on above: Order Comment: Speci men Type: BLOOD SPECIMENOrdering Facility: [facility] Address: [address] [place] [address] Performed By: #### 2 4323-8 ####[facility] LABCLIA [id number] [place] [address] CNOVon 11-16-2022 CNOV Normal [facility] CNPNon 10-27-2022 CNPN Normal [facility] CNPNon 10-25-2022 CNPN Normal [facility] CNPNon 10-20-2022 CNPN Normal [facility] CNOVon 10-18-2022 CNOV Normal [facility] CNTHERAPYon 10-18-2022 CNTHERAPY Normal [facility] CNTHERAPY Normal [facility] UR Drugs of Abuse Panelon Drug Screen Comment see below Normal [facility] Comment on above: Result Comment: This method is a screening test to detect only these drug classes as part of a medical workup. Confirmatory testing by another method should be ordered if clinically indicated. Performed By: #### U DRGS #### [facility] [address] [place] [address] UR Amphetamines Screen Negative Normal Negative < [facility] Comment on above: Performed By: #### U DRGS #### [facility] [address] [place] [address] UR Barbiturates Screen Negative Normal Negative < [facility] Comment on above: Performed By: #### U DRGS #### [facility] [address] [place] [address] UR Benzo Screen Positive Abnormal Negative < [facility] Comment on above: Performed By: #### U DRGS #### [facility] [address] [place] [address] UR Cannabinoids Screen Positive Abnormal Negative < [facility] Comment on above: Performed By: #### U DRGS #### [facility] [address] [place] [address] UR Cocaine Screen Negative Normal Negative < [facility] Comment on above: Performed By: #### U DRGS #### [facility] [address] [place] [address] UR Fentanyl Screen Negative Normal Negative < [facility] Comment on above: Performed By: #### U DRGS #### [facility] [address] [place] [address] UR Methadone Screen Negative Normal Negative < [facility] Comment on above: Performed By: #### U DRGS #### [facility] [address] [place] [address] UR Opiates Screen Negative Normal Negative < [facility] Comment on above: Performed By: #### U DRGS #### [facility] [address] [place] [address] UR Oxycodone Screen Negative Normal Negative < [facility] Comment on above: Performed By: #### U DRGS #### [facility] [address] [place] [address] UR PCP Screen Negative Normal Negative < [facility] Comment on above: Performed By: #### U DRGS #### [facility] [address] [place] [address] UR Propoxyphene Screen Negative Normal Negative < [facility] Comment on above: Performed By: #### U DRGS #### [facility] [address] [place] [address] CBC W Auto Differential pane l (Bld)on 10-16-2022 Basophils (Bld) [#/Vol] 10*3/uL Normal <0.11 [facility] Comment on above: Order Comment: Speci men Type: BLOOD SPECIMENOrdering Facility: [facility] Address: [address] [address] Performed By: #### 5 7021-8 ####[facility] LABCLIA [id number] [place] [address] [place] Basophils/100 WBC (Bld) 0.4 % Normal [facility] Comment on above: Order Comment: Speci men Type: BLOOD SPECIMENOrdering Facility: [facility] Address: [address] [address] Performed By: #### 5 7021-8 ####[facility] LABCLIA [id number] [place] [address] [place] Differential cell count method Nom (Bld) Auto Normal [facility] Comment on above: Order Comment: Speci men Type: BLOOD SPECIMENOrdering Facility: [facility] Address: [address] [address] Performed By: #### 5 7021-8 ####[facility] LABCLIA [id number] [place] [address] [place] Eosinophils (Bld) [#/Vol] 0.10 10*3/uL Normal <0.46 [facility] Comment on above: Order Comment: Speci men Type: BLOOD SPECIMENOrdering Facility: [facility] Address: [address] Performed By: #### 5 7021-8 ####[facility] LABCLIA [id number] [address] [place] Eosinophils/100 WBC (Bld) 2.0 % Normal [facility] Comment on above: Order Comment: Speci men Type: BLOOD SPECIMENOrdering Facility: [facility] Address: [address] [place], [place] [address] Performed By: #### 5 7021-8 ####[facility] LABCLIA [id number] [address] [place] Erythrocyte distribution width (RBC) [Ratio] 11.8 % Normal 11.5-15.0 [facility] Comment on above: Order Comment: Speci men Type: BLOOD SPECIMENOrdering Facility: [facility] Address: [address] [place], [place] [address] Performed By: #### 5 7021-8 ####[facility] LABCLIA [id number] [address] [place] Hematocrit (Bld) [Volume fraction] 37.7 % Normal 36.0-46.0 [facility] Comment on above: Order Comment: Speci men Type: BLOOD SPECIMENOrdering Facility: [facility] Address: [address] [place], [place] [address] Performed By: #### 5 7021-8 ####[facility] LABCLIA [id number] [place] [address] [place] Hemoglobin (Bld) [Mass/Vol] 12.7 g/dL Normal 11.5-15.5 [facility] Comment on above: Order Comment: Speci men Type: BLOOD SPECIMENOrdering Facility: [facility] Address: [address] [place] [address] Performed By: #### 5 7021-8 ####[facility] LABCLIA [id number] [place] [address] [place] Immature granulocytes (Bld) [#/Vol] 10*3/uL Normal <0.10 [facility] Comment on above: Order Comment: Speci men Type: BLOOD SPECIMENOrdering Facility: [facility] Address: [address] [place], [place] [address] Performed By: #### 5 7021-8 ####[facility] LABCLIA [id number] [address] [place] Immature granulocytes/100 WBC (Bld) 0.4 % Normal [facility] Comment on above: Order Comment: Speci men Type: BLOOD SPECIMENOrdering Facility: [facility] Address: [address] [place], [place] [address] Performed By: #### 5 7021-8 ####[facility] LABCLIA [id number] [place] [address] [place] Lymphocytes (Bld) [#/Vol] 1.70 10*3/uL Normal 1.00-4.00 [facility] Comment on above: Order Comment: Speci men Type: BLOOD SPECIMENOrdering Facility: [facility] Address: [address] [place], [place] [address] Performed By: #### 5 7021-8 ####[facility] LABCLIA [id number] [place] [address] [place] Lymphocytes/100 WBC (Bld) 33.5 % Normal [facility] Comment on above: Order Comment: Speci men Type: BLOOD SPECIMENOrdering Facility: [facility] Address: [address] Performed By: #### 5 7021-8 ####[facility] LABIA [id number] [address] MCH (RBC) [Entitic mass] 30.3 pg Normal 26.0-34.0 [facility] Comment on above: Order Comment: Speci men Type: BLOOD SPECIMENOrdering Facility: [facility] Address: [address] Performed By: #### 5 7021-8 ####[facility] LABIA [id number] [address] [place] MCHC (RBC) [Mass/Vol] 33.7 g/dL Normal 30.5-36.0 [facility] Comment on above: Order Comment: Speci men Type: BLOOD SPECIMENOrdering Facility: [facility] Address: [address] Performed By: #### 5 7021-8 ####[facility] LABIA [id number] [address] [place] [facility] MCV (RBC) [Entitic vol] 90.0 fL Normal 80.0-100.0 [facility] Comment on above: Order Comment: Speci men Type: BLOOD SPECIMENOrdering Facility: [facility] Address: [address] Performed By: #### 5 7021-8 ####[facility] LABIA [id number] [place] [address] [place] Monocytes (Bld) [#/Vol] 0.44 10*3/uL Normal <0.87 [facility] Comment on above: Order Comment: Speci men Type: BLOOD SPECIMENOrdering Facility: [facility] Address: [address] [place], [place] [address] Performed By: #### 5 7021-8 ####[facility] LABCLIA [id number] [place] [address] [place] Monocytes/100 WBC (Bld) 8.7 % Normal [facility] Comment on above: Order Comment: Speci men Type: BLOOD SPECIMENOrdering Facility: [facility] Address: [address] [place] [address] Performed By: #### 5 7021-8 ####[facility] LABCLIA [id number] [place] [address] [place] Neutrophils (Bld) [#/Vol] 2.79 10*3/uL Normal 1.45-7.50 [facility] Comment on above: Order Comment: Speci men Type: BLOOD SPECIMENOrdering Facility: [facility] Address: [address] [place] [address] Performed By: #### 5 7021-8 ####[facility] LABCLIA [id number] [place] [address] [place] Neutrophils/100 WBC (Bld) 55.0 % Normal [facility] Comment on above: Order Comment: Speci men Type: BLOOD SPECIMENOrdering Facility: [facility] Address: [address] [place] [address] Performed By: #### 5 7021-8 ####[facility] LABCLIA [id number] [place] [address] [place] Nucleated RBC (Bld) [#/Vol] 10*3/uL Normal <0.01 [facility] Comment on above: Order Comment: Speci men Type: BLOOD SPECIMENOrdering Facility: [facility] Address: [address] [place], [place] [address] Performed By: #### 5 7021-8 ####[facility] LABCLIA [id number] [place] [address] [place] Nucleated RBC/100 WBC (Bld) [Ratio] 0.0 /100 WBC Normal [facility] Comment on above: Order Comment: Speci men Type: BLOOD SPECIMENOrdering Facility: [facility] Address: [address] [place], [place] [address] Performed By: #### 5 7021-8 ####[facility] LABCLIA [id number] [place] [address] [place] Platelet mean volume (Bld) [Entitic vol] 9.5 fL Normal 9.0-12.7 [facility] Comment on above: Order Comment: Speci men Type: BLOOD SPECIMENOrdering Facility: [facility] Address: [address] [place], [place] [address] Performed By: #### 5 7021-8 ####[facility] LABCLIA [id number] [place] [address] [place] Platelets (Bld) [#/Vol] 238 10*3/uL Normal 150-400 [facility] Comment on above: Order Comment: Speci men Type: BLOOD SPECIMENOrdering Facility: [facility] Address: [address] [place], [place] [address] Performed By: #### 5 7021-8 ####[facility] LABIA [id number] [place] [address] [place] RBC (Bld) [#/Vol] 4.19 10*6/uL Normal 3.90-5.20 [facility] Comment on above: Order Comment: Speci men Type: BLOOD SPECIMENOrdering Facility: [facility] Address: [address] [place], [place] [address] Performed By: #### 5 7021-8 ####[facility] LABCLIA [id number] [place] [address] [place] WBC (Bld) [#/Vol] 5.07 10*3/uL Normal 3.70-11.00 [facility] Comment on above: Order Comment: Speci men Type: BLOOD SPECIMENOrdering Facility: [facility] Address: [address] [place], [place] [address] Performed By: #### 5 7021-8 ####[facility] LABCLIA [id number] [place] [address] [place] Basophils (Bld) [#/Vol] <0.11 k/uL [facility] Basophils/100 WBC (Bld) 0.4 % [facility] Differential cell count method Nom (Bld) Auto [facility] Eosinophils (Bld) [#/Vol] 0.10 10*3/uL <0.46 k/uL [facility] Eosinophils/100 WBC (Bld) 2.0 % [facility] Erythrocyte distribution width (RBC) [Ratio] 11.8 % 11.5 - 15.0 % [facility] Hematocrit (Bld) [Volume fraction] 37.7 % 36.0 - 46.0 % [facility] Hemoglobin (Bld) [Mass/Vol] 12.7 g/dL 11.5 - 15.5 g/dL [facility] Immature granulocytes (Bld) [#/Vol] <0.10 k/uL [facility] Immature granulocytes/100 WBC (Bld) 0.4 % [facility] Lymphocytes (Bld) [#/Vol] 1.70 10*3/uL 1.00 - 4.00 k/uL [facility] Lymphocytes/100 WBC (Bld) 33.5 % [facility] MCH (RBC) [Entitic mass] 30.3 pg 26.0 - 34.0 pg [facility] MCHC (RBC) [Mass/Vol] 33.7 g/dL 30.5 - 36.0 g/dL [facility] MCV (RBC) [Entitic vol] 90.0 fL 80.0 - 100.0 fL [facility] Monocytes (Bld) [#/Vol] 0.44 10*3/uL <0.87 k/uL [facility] Monocytes/100 WBC (Bld) 8.7 % [facility] Neutrophils (Bld) [#/Vol] 2.79 10*3/uL 1.45 - 7.50 k/uL [facility] Neutrophils/100 WBC (Bld) 55.0 % [facility] Nucleated RBC (Bld) [#/Vol] <0.01 k/uL [facility] Nucleated RBC/100 WBC (Bld) [Ratio] 0.0 /100 WBC [facility] Platelet mean volume (Bld) [Entitic vol] 9.5 fL 9.0 - 12.7 fL [facility] Platelets (Bld) [#/Vol] 238 10*3/uL 150 - 400 k/uL [facility] RBC (Bld) [#/Vol] 4.19 10*6/uL 3.90 - 5.20 m/uL [facility] WBC (Bld) [#/Vol] 5.07 10*3/uL 3.70 - 11.00 k/uL [facility] CNOVon 10-16-2022 CNOV Normal [facility] Ambulatory Visit Summaryon 0 10-05-2022 Ambulatory Visit Summary BEN BARR :1985 Visit Date:10/05/2022 Ambulatory Visit Instructions 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 Generalized anxiety disorder Your Care Team Attending Physician - Deandra Oliva Primary Care Physician - Deandra Oliva This Is Your Medications List Misc Prescription (1 LITER NORMAL SALINE) Misc Prescription (Magnesium Chloride 64 mg) Turmeric (Turmeric 500 mg oral capsule) busPIRone (busPIRone 10 mg Tab) cholecalciferol (Vitamin D3 5000 intl units oral capsule) diazepam (diazepam 5 mg Tab) diazepam (diazepam 5 mg Tab) fluoxetine (FLUoxetine 60 mg oral tablet) immune globulin intravenous and subcutaneous (Gammagard Liquid 10% injectable solution) omega-3 polyunsaturated fatty acids ([place]-3 Fish Oil 1000 mg oral capsule) ondansetron (Zofran ODT 4 mg Tab-Dis) potassium chloride (potassium chloride 10 mEq Cap-ER) propranolol propranolol (propranolol 60 mg Cap-ER) Procedures Performed Esophagogastroduodenoscopy (01/02/2022), EGD (esophagogastroduodenoscopy ) gastric outlet reduction (02/02/2021), Esophagogastroduodenoscopy (12/09/2020), Ileostomy (03/10/2015), colon removed, Robotic laparoscopic total abdominal colectomy with ileorectal anastomosis and diverting ileostomy, Small bowel resection. Discharge Vitals Height 155 cm Height 61 in Weight 69.0 kg Weight 151.8 lb BMI 28.72 Medications What How Much When Instructions Unchanged busPIRone (busPIRone 10 mg Tab) 3 Tablets By Mouth 2 times a day Unchanged cholecalciferol (Vitamin D3 5000 intl units oral capsule) 1 Capsules By Mouth Every day with food Unchanged diazepam (diazepam 5 mg Tab) 1 Tablets By Mouth 2 times a day Unchanged diazepam (diazepam 5 mg Tab) 1 Tablets By Mouth 2 times a day Pickup at [facility] Unchanged fluoxetine (FLUoxetine 60 mg oral tablet) 1 Tablets By Mouth Every day Unchanged immune globulin intravenous and subcutaneous (Gammagard Liquid 10% injectable solution) 10 Gram Subcutaneous Every 4 weeks Unchanged Misc Prescription (1 LITER NORMAL SALINE) 1 LITER GIVEN WITH GAMMAGARD Unchanged Misc Prescription (Magnesium Chloride 64 mg) 1 tab By Mouth Every day take with the Vitamin D Unchanged omega-3 polyunsaturated fatty acids ([place]-3 Fish Oil 1000 mg oral capsule) 1 Capsules By Mouth Every day Unchanged ondansetron (Zofran ODT 4 mg Tab-Dis) 1 Tablets By Mouth Every 8 hours as needed for Nausea/Vomiting Unchanged potassium chloride (potassium chloride 10 mEq Cap-ER) 1 Capsules By Mouth Every day Unchanged propranolol Unchanged propranolol (propranolol 60 mg Cap-ER) 1 Capsules By Mouth Every day Unchanged Turmeric (Turmeric 500 mg oral capsule) 1 Capsules By Mouth Every day Pharmacy Information [facility]: [address] [place], [place] [id number] [phone] Allergies Rondec Problems Ongoing - Any problem that you are currently receiving treatment for. Attention deficit disorder (ADD) in adult Change in bowel habits Chronic insomnia Chronic kidney disease, stage 2 (mild) Common variable immunodeficiency Generalized anxiety disorder History of colectomy History of stomach ulcers Hypothyroidism Medication management Moderate major depression Multiple falls Nausea and vomiting Paresthesias Stiff person syndrome Historical - Any problem that you are no longer receiving treatment for. autoimmune disease of the nervous system bowel resection CVID - Common variable immunodeficiency functional pituitary tumor Malnutrition POTS (postural orthostatic tachycardia syndrome) Stomach ulcer [employer] Dystonia Dystonia is a condition that makes muscles contract without warning (muscle spasms). It can make doing everyday tasks hard. There are different forms of dystonia. The condition can affect just one part of your body, or it can affect different parts of your body. Dystonia affects people in different ways. In some people, it is mild and goes away over time. In others, it is severe and may need treatment. Although there is no cure for dystonia, you can manage the condition with treatment. What are the causes? This condition may be passed from parent to child (inherited). In this case, it is caused by an abnormal change in a gene (geneticmutation). The condition may also occur due to a health issue (acquired). You may develop dystonia because of various conditions, including: ? Brain injury. ? Infection. ? Drug reaction. ? Neurological conditions that get worse over time (degenerative), such as Parkinson's disease or Al's disease. ? Stroke. ? injury from lack of oxygen or from high levels of a substance called bilirubin. ? Exposures to toxins such as carbon monoxide, methanol, or cyanide. Sometimes the cause of dystonia is not known (idiopathic dystonia). What are the signs or symptoms? Symptoms (more content not included)... 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 Generalized anxiety disorder Your Care Team Attending Physician - Deandra Oliva Primary Care Physician - Deandra Oliva This Is Your Medications List Misc Prescription (1 LITER NORMAL SALINE) Misc Prescription (Magnesium Chloride 64 mg) Turmeric (Turmeric 500 mg oral capsule) busPIRone (busPIRone 10 mg Tab) cholecalciferol (Vitamin D3 5000 intl units oral capsule) diazepam (diazepam 5 mg Tab) diazepam (diazepam 5 mg Tab) fluoxetine (FLUoxetine 60 mg oral tablet) immune globulin intravenous and subcutaneous (Gammagard Liquid 10% injectable solution) omega-3 polyunsaturated fatty acids ([place]-3 Fish Oil 1000 mg oral capsule) ondansetron (Zofran ODT 4 mg Tab-Dis) potassium chloride (potassium chloride 10 mEq Cap-ER) propranolol propranolol (propranolol 60 mg Cap-ER) Procedures Performed Esophagogastroduodenoscopy (01/02/2022), EGD (esophagogastroduodenoscopy ) gastric outlet reduction (02/02/2021), Esophagogastroduodenoscopy (12/09/2020), Ileostomy (03/10/2015), colon removed, Robotic laparoscopic total abdominal colectomy with ileorectal anastomosis and diverting ileostomy, Small bowel resection. Discharge Vitals Height 155 cm Height 61 in Weight 69.0 kg Weight 151.8 lb BMI 28.72 Medications What How Much When Instructions Unchanged busPIRone (busPIRone 10 mg Tab) 3 Tablets By Mouth 2 times a day Unchanged cholecalciferol (Vitamin D3 5000 intl units oral capsule) 1 Capsules By Mouth Every day with food Unchanged diazepam (diazepam 5 mg Tab) 1 Tablets By Mouth 2 times a day Unchanged diazepam (diazepam 5 mg Tab) 1 Tablets By Mouth 2 times a day Pickup at [facility] Unchanged fluoxetine (FLUoxetine 60 mg oral tablet) 1 Tablets By Mouth Every day Unchanged immune globulin intravenous and subcutaneous (Gammagard Liquid 10% injectable solution) 10 Gram Subcutaneous Every 4 weeks Unchanged Misc Prescription (1 LITER NORMAL SALINE) 1 LITER GIVEN WITH GAMMAGARD Unchanged Misc Prescription (Magnesium Chloride 64 mg) 1 tab By Mouth Every day take with the Vitamin D Unchanged omega-3 polyunsaturated fatty acids ([place]-3 Fish Oil 1000 mg oral capsule) 1 Capsules By Mouth Every day Unchanged ondansetron (Zofran ODT 4 mg Tab-Dis) 1 Tablets By Mouth Every 8 hours as needed for Nausea/Vomiting Unchanged potassium chloride (potassium chloride 10 mEq Cap-ER) 1 Capsules By Mouth Every day Unchanged propranolol Unchanged propranolol (propranolol 60 mg Cap-ER) 1 Capsules By Mouth Every day Unchanged Turmeric (Turmeric 500 mg oral capsule) 1 Capsules By Mouth Every day Pharmacy Information [facility]: [address] [place], [place] [id number] [phone] Allergies [place] Problems Ongoing - Any problem that you are currently receiving treatment for. Attention deficit disorder (ADD) in adult Change in bowel habits Chronic insomnia Chronic kidney disease, stage 2 (mild) Common variable immunodeficiency Generalized anxiety disorder History of colectomy History of stomach ulcers Hypothyroidism Medication management Moderate major depression Multiple falls Nausea and vomiting Paresthesias Stiff person syndrome Historical - Any problem that you are no longer receiving treatment for. autoimmune disease of the nervous system bowel resection CVID - Common variable immunodeficiency functional pituitary tumor Malnutrition POTS (postural orthostatic tachycardia syndrome) Stomach ulcer Education [employer] Dystonia Dystonia is a condition that makes muscles contract without warning (muscle spasms). It can make doing everyday tasks hard. There are different forms of dystonia. The condition can affect just one part of your body, or it can affect different parts of your body. Dystonia affects people in different ways. In some people, it is mild and goes away over time. In others, it is severe and may need treatment. Although there is no cure for dystonia, you can manage the condition with treatment. What are the causes? This condition may be passed from parent to child (inherited). In this case, it is caused by an abnormal change in a gene (geneticmutation). The condition may also occur due to a health issue (acquired). You may develop dystonia because of various conditions, including: ? Brain injury. ? Infection. ? Drug reaction. ? Neurological conditions that get worse over time (degenerative), such as Parkinson's disease or Al's disease. ? Stroke. ? injury from lack of oxygen or from high levels of a substance called bilirubin. ? Exposures to toxins such as carbon monoxide, methanol, or cyanide. Sometimes the cause of dystonia is not known (idiopathic dystonia). What are the signs or symptoms? Symptoms (more content not included)... 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 was previously seeing Dr. Soria. Review of Systems ROS - Provider Constitutional: no fever, no chills, no sweats, no fatigue Respiratory: no shortness of breath, no cough, no orthopnea, no wheezing. Cardiovascular: no chest pain, no palpitations, no edema. Neurologic: no headache, no dizziness, no numbness, no weakness. Physical Exam Vitals & Measurements HT: 61 in HT: 155 cm WT: 69.0 kg WT: 151.8 lb BMI: 28.72 General: alert, no acute distress ENMT: oral mucosa moist, no pharyngeal erythema or exudate Cardiovascular: regular rate and rhythm, normal peripheral perfusion Respiratory: Lungs CTA, respirations non labored Extremities: no deformity, no trauma Neurological: oriented x 4, LOC appropriate for age, CN II-XII intact, motor strength equal & normal bilaterally, speech normal Assessment/Plan 1. 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 sees Dr. Soria who has moved. she has an appointment with him on 10/16. she is in need of refill on diazepam. she states it is really helping her symptoms and she does not want to run out. if she doesn't take it she struggles to walk and talk. Will send 10 days worth. if she needs one more refill she will call office for 1 time refill until she can see Dr. Soria. all questions answered. RTC as needed 2. 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 Generalized anxiety disorder (F41.1: Generalized anxiety disorder) see above Orders: diazepam, 5 mg = 1 tab(s), Oral, BID, # 20 tab(s), Refills(s) 0, Pharmacy: [facility], 155, cm, 10/05/22 13:15:00 EDT, Height/Length Dosing, 65, kg, 07/25/22 16:00:00 EDT, Weight Dosing Follow-up No qualifying data available Patient Education Dystonia Problem List/Past Medical History Ongoing Attention deficit disorder (ADD) in adult Change in bowel habits Chronic insomnia Chronic kidney disease, stage 2 (mild) Common variable immunodeficiency Generalized anxiety disorder History of colectomy History of stomach ulcers Hypothyroidism Medication management Moderate major depression Multiple falls Nausea and vomiting Paresthesias 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 Medications 1 LITER NORMAL SALINE busPIRone 10 mg Tab, 30 mg= 3 tab(s), Oral, BID, 5 refills diazepam 5 mg Tab, 5 mg= 1 tab(s), Oral, BID diazepam 5 mg Tab, 5 mg= 1 tab(s), Oral, BID FLUoxetine 60 mg oral tablet, 60 mg= 1 tab(s), Oral, Daily Gammagard Liquid 10% injectable solution, 10 gm, SubCutaneous, q4wk, 11 refills Magnesium Chloride 64 mg, 1 tab, Oral, Daily, 3 refills [place]-3 Fish Oil 1000 mg oral capsule, 1000 mg= 1 cap(s), Oral, Daily, 11 refills potassium chloride 10 mEq Cap-ER, 10 mEq= 1 cap(s), Oral, Daily, 3 refills propranolol propranolol 60 mg Cap-ER, 60 mg= 1 cap(s), Oral, Daily Turmeric 500 mg oral capsule, 500 mg= 1 cap(s), Oral, Daily, 3 refills Vitamin D3 5000 intl units oral capsule, 125 mcg= 1 cap(s), Oral, Daily, 11 refills Zofran ODT 4 mg Tab-Dis, 4 mg= 1 tab(s), Oral, q8hr, PRN, 1 refills Allergies [facility] Social History Alcohol - Low Risk, 09/06/2012 Current, 1-2 times per month, 02/10/2020 Exercise - Does not exercise, 09/05/2018 Substance Abuse - Denies Substance Abuse, 09/06/2012 Tobacco - Denies Tobacco Use, 02/10/2020 Former smoker, quit more than 30 days ago Tobacco Use:. Never Smokeless Tobacco Use:. Cigarettes, Household tobacco concerns: No., (more content not included)... [facility] Comment on above: Result Comment: Elec tronically Signed By: Deandra Oliva\.br\Date and Time Signed: 10/05/22 13:49 EDT Patient Educationon 10-06-19 23 Patient Education Orthopedics Dystonia Dystonia is a condition that makes muscles contract without warning (muscle spasms). It can make doing everyday tasks hard. There are different forms of dystonia. The condition can affect just one part of your body, or it can affect different parts of your body. Dystonia affects people in different ways. In some people, it is mild and goes away over time. In others, it is severe and may need treatment. Although there is no cure for dystonia, you can manage the condition with treatment. What are the causes? This condition may be passed from parent to child (inherited). In this case, it is caused by an abnormal change in a gene (geneticmutation). The condition may also occur due to a health issue (acquired). You may develop dystonia because of various conditions, including: ? Brain injury. ? Infection. ? Drug reaction. ? Neurological conditions that get worse over time (degenerative), such as Parkinson's disease or Al's disease. ? Stroke. ? injury from lack of oxygen or from high levels of a substance called bilirubin. ? Exposures to toxins such as carbon monoxide, methanol, or cyanide. Sometimes the cause of dystonia is not known (idiopathic dystonia). What are the signs or symptoms? Symptoms of this condition depend on which type of dystonia you have. Common symptoms include: ? Muscle twitches or spasms around your eyes (blepharospasm). ? Foot cramping or dragging. ? Pulling of your neck to one side (torticollis). ? Muscle spasms of the face. ? Spasms of the voice box (larynx). ? Shaking that you cannot control (tremors) of the head, arms, or legs. ? Muscle cramping in the arms or hands. How is this diagnosed? This condition may be diagnosed based on: ? Your symptoms and medical history. ? A physical exam. You may also have other tests, including: ? A blood test to check for genes that cause dystonia. ? Brain imaging tests to rule out other causes of your symptoms. ? Blood tests to rule out metabolic, toxic, and infectious causes. ? A neurological exam to check for conditions like Parkinson's disease. How is this treated? There are no treatments that can cure or prevent dystonia. Treatment to manage dystonia may include: ? Taking medicines to relax muscles. ? Using a heating pad or receiving massage therapy. ? If directed, apply heat to the area as often as told by your health care provider. Use the heat source that your health care provider recommends, such as a moist heat pack or a heating pad. ? Place a towel between your skin and the heat source. ? Leave the heat on for 20?30 minutes. ? Remove the heat if your skin turns bright red. This is especially important if you are unable to feel pain, heat, or cold. You have a greater risk of getting burned. ? Doing physical therapy exercises to help maintain muscle strength and improve your balance. ? Taking a medicine that is used to treat Parkinson's disease. This medicine improves symptoms of dystonia in some people. ? Injecting the affected muscles with a chemical (botulinum) that blocks muscle spasms. This treatment can block spasms for 2?4 months. ? Slowly weaning you from a specific medicine to see if your symptoms improve. This may be done if that medicine is thought to be causing dystonia. ? Having surgery to implant an electrical device (deep brain simulator) to help override abnormal signals being sent to your muscles. This is done in severe cases. Follow these instructions at home: ? Do physical therapy exercises at home as told by your physical therapist. ? Make sure that you have a good support system. Let your health care provider know if you are struggling with stress or anxiety. ? Do not drink alcohol. ? Do not use any products that contain nicotine or tobacco. These products include cigarettes, chewing tobacco, and vaping devices, such as e-cigarettes. If you need help quitting, ask your health care provider. ? Do not drive or operate machinery until your health care provider approves. ? Take xrbt-yeb-dywhxxw and prescription medicines only as told by your health care provider. ? Keep all follow-up visits. This is important. Where to find more information ? National [place] of Neurological Disorders and Stroke: www.ninds.nih.gov Contact a health care provider if: ? Your condition is changing or getting worse. ? You need more support taking care of yourself or handling household duties. Your health care provider may be able to arrange nursing assistance in your home. Summary ? Dystonia is a condition that makes muscles contract without warning (muscle spasms). ? There are no treatments that can cure or prevent dystonia. Medicines may be prescribed to manage symptoms. ? Physical therapy may also be recommended to help maintain muscle strength and improve your balance. This information is not intended to replace a (more content not included)... Normal [facility] Consultation Noteon 09-06-19 23 Consultation Note [id number]:127 Normal [facility] Physician Referralon 023 Physician Referral [id number]:127 Normal [facility] CNOVon 08-10-2022 CNOV Normal [facility] MISC SEND OUT TST 12022 REFERRAL LAB 1 [place] Normal [facility] Comment on above: Order Comment: Specemma dia Type: BLOOD SPECIMENOrdering Facility: [facility] Address: [address] [place] [address] Performed By: #### M ISC1 ####NON-INTERFACED REF LABSCLIA SEE SCANNED RESULTS TEST RESULTS 1 View results in Scan keaun Documents link when available. Normal [facility] Comment on above: Order Comment: Mani dia Type: BLOOD SPECIMENOrdering Facility: [facility] Address: [address] [place] [address] Performed By: #### M ISC1 ####NON-INTERFACED REF LABSCLIA SEE SCANNED RESULTS [facility] 08-01-2022 [facility] Normal [facility] CNPNon 07-25-2022 [facility] Family Medicine Office/Clini c Noteon 07-25-2022 Family Medicine Office/Clinic Note HPI Staff Bustos is a 36 year old female who presents for a follow up. She reports she was recently diagnosed with Stiff person's syndrome by her neurologist at [facility]. She has been having frequent episodes of panic attacks, immobility of her legs, wrists, and hands, muscle spasticity, and a wave like sensation through her head that she reports feels similar to the aura prior to a seizure. 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 She has been frequenting [facility] ER for management of these symptoms and states that Ativan has been the only mediation to help alleviate these symptoms. She reports that she was advised by her neurologist that symptoms of stiff person's syndrome include anxiety and irritability, however her neurologist advised her to follow up with her PCP to discuss this as they will not prescribe/manage anxiety medications. She has previously had IV/IG infusions that also help control these symptoms, however, she is currently fighting her insurance due to the cost as her dose and the frequency of the treatments were recently increased. History of Present Illness I have reviewed and verified the staff HPI to be accurate for this encounter. Review of Systems PHQ Score Initial Depression Screen Score: 0 Constitutional: no fever, no chills, no sweats, no weakness Respiratory: no shortness of breath, no cough, no orthopnea, no wheezing Cardiovascular: no chest pain, no palpitations, no edema Additional ROS info: Except as noted in the above Review of Systems and in the History of Present Illness all other systems have been reviewed and are negative or noncontributory. Physical Exam Vitals & Measurements T: 36.9 ?C(Temporal Artery) HR: 72(Peripheral) BP: 100/62 SpO2: 99% HT: 61 in HT: 155 cm WT: 65 kg WT: 143 lb BMI: 27.06 General: alert, no acute distress Skin: warm, dry Head: no trauma, normocephalic Neck: Trachea midline, no adenopathy, no tenderness Eye: normal conjunctiva, sclera clear ENMT: TM's clear, oral mucosa moist, no pharyngeal erythema or exudate Cardiovascular: regular rate and rhythm, normal peripheral perfusion Respiratory: Lungs CTA, respirations non labored Chest wall: no deformity. Gastrointestinal: soft, non distended, no tenderness, no guarding. Back: No tenderness, Normal ROM, Normal alignment. Extremities: no deformity, no trauma Neurological: oriented x 4, LOC appropriate for age, CN II-XII intact, motor strength equal & normal bilaterally, sensation equal & normal bilaterally, speech normal Psychiatric: cooperative, affect appropriate for age, normal judgement, normal psychiatric thoughts. Assessment/Plan 1. 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 Need to complete the work-up for the SPS. start low dose valium prn. Ordered: diazepam, 5 mg = 1 tab(s), Oral, BID, X 10 day(s), # 20 tab(s), Refills(s) 2, Pharmacy: [facility], 155, cm, 07/25/22 16:00:00 EDT, Height/Length Dosing, 65, kg, 07/25/22 16:00:00 EDT, Weight Dosing Follow-up With When Contact Information Lizy SORIA DO, FAM In 3 months [address] [place] [id number]- Additional Instructions: Problem List/Past Medical History Ongoing Attention deficit disorder (ADD) Change in bowel habits Chronic insomnia Chronic kidney disease, stage 2 (mild) Common variable immunodeficiency Generalized anxiety disorder History of colectomy History of stomach ulcers Hypothyroidism Medication management Multiple falls Nausea and vomiting Paresthesias 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 Medications 1 LITER NORMAL SALINE busPIRone 10 mg Tab, 30 mg= 3 tab(s), Oral, BID, 5 refills diazepam 5 mg Tab, 5 mg= 1 tab(s), Oral, BID, 2 refills FLUoxetine 60 mg oral tablet, 60 mg= 1 tab(s), Oral, Daily Gammagard Liquid 10% injectable solution, 10 gm, SubCutaneous, q4wk, 11 refills Magnesium Chloride 64 mg, 1 tab, Oral, Daily, 3 refills Metoprolol tartrate 50 mg Tab, 50 mg= 1 tab(s), Oral, BID, 3 refills [place]-3 Fish Oil 1000 mg oral capsule, 1000 mg= 1 cap(s), Oral, Daily, 11 refills potassium chloride 10 mEq Cap-ER, 10 mEq= 1 cap(s), Oral, Daily, 2 refills propranolol Trileptal 150 mg Tab, 150 mg= 1 tab(s), Oral, BID, 1 refills Trileptal 150 mg Tab, 150 (more content not included)... [facility] Comment on above: Result Comment: Elec tronically Signed By: Lizy SORIA DO\.tera\Date and Time Signed: 07/25/22 16:55 EDT CNPNon 07-24-2022 CNPN Normal [facility] Consultation Noteon 07-23-19 Consultation Note [id number]:127 Normal [facility] CNPNon 07-18-2022 CNPN Normal [facility] CNDSon 07-16-2022 CNDS Normal [facility] NURSING PROGon 07-16-2022 NURSING PROG Normal [facility] 10OH-Carbazepine SerPl-mCnco n 07-15-2022 10-Hydroxycarbazepin e [Mass/Vol] 3.2 ug/mL Normal 3.0-35.0 [facility] Comment on above: Order Comment: Speci men Type: BLOOD SPECIMENOrdering Facility: [facility] Address: [address] [place] [address] Result Comment: This test was developed and its performance characteristics determined by [facility] Pathology and Laboratory Medicine [place] (-[facility]). It has not been cleared or approved by the FDA. [facility] is regulated under CLIA as qualified to perform high-complexity testing. This test is used for clinical purposes. It should not be regarded as investigational or for research. Performed By: #### 3 1019-3 ####[facility] LABIA [id number] [address] [facility] CBC W Auto Differential pane l (Bld)on 07-15-2022 Basophils (Bld) [#/Vol] 10*3/uL Normal <0.11 [facility] Comment on above: Order Comment: Speci men Type: BLOOD SPECIMENOrdering Facility: [facility] Address: [address] [place] [address] Performed By: #### 5 7021-8 ####[facility] LABIA [id number] [address] [place] Basophils/100 WBC (Bld) 0.2 % Normal [facility] Comment on above: Order Comment: Speci men Type: BLOOD SPECIMENOrdering Facility: [facility] Address: [address] Performed By: #### 5 7021-8 ####[facility] LABCLIA [id number] [place] [address] [place] Differential cell count method Nom (Bld) Auto Normal [facility] Comment on above: Order Comment: Speci men Type: BLOOD SPECIMENOrdering Facility: [facility] Address: [address] Performed By: #### 5 7021-8 ####[facility] LABCLIA [id number] [place] [address] [place] Eosinophils (Bld) [#/Vol] 0.25 10*3/uL Normal <0.46 [facility] Comment on above: Order Comment: Speci men Type: BLOOD SPECIMENOrdering Facility: [facility] Address: [address] Performed By: #### 5 7021-8 ####[facility] LABCLIA [id number] [address] STATES [facility] Eosinophils/100 WBC (Bld) 4.8 % Normal [facility] Comment on above: Order Comment: Speci men Type: BLOOD SPECIMENOrdering Facility: [facility] Address: [address] [place] [address] Performed By: #### 5 7021-8 ####[facility] LABCLIA [id number] [place] [address] [place] Erythrocyte distribution width (RBC) [Ratio] 11.9 % Normal 11.5-15.0 [facility] Comment on above: Order Comment: Speci men Type: BLOOD SPECIMENOrdering Facility: [facility] Address: [address] Performed By: #### 5 7021-8 ####[facility] LABCLIA [id number] [address] [place] Hematocrit (Bld) [Volume fraction] 37.1 % Normal 36.0-46.0 [facility] Comment on above: Order Comment: Speci men Type: BLOOD SPECIMENOrdering Facility: [facility] Address: [address] Performed By: #### 5 7021-8 ####[facility] LABCLIA [id number] [place] [address] [place] Hemoglobin (Bld) [Mass/Vol] 12.6 g/dL Normal 11.5-15.5 [facility] Comment on above: Order Comment: Speci men Type: BLOOD SPECIMENOrdering Facility: [facility] Address: [address] [place], [place] [address] Performed By: #### 5 7021-8 ####[facility] LABIA [id number] [place] [address] [place] Immature granulocytes (Bld) [#/Vol] 10*3/uL Normal <0.10 [facility] Comment on above: Order Comment: Speci men Type: BLOOD SPECIMENOrdering Facility: [facility] Address: [address] [place] [address] Performed By: #### 5 7021-8 ####[facility] LABCLIA [id number] [place] [address] [place] Immature granulocytes/100 WBC (Bld) 0.0 % Normal [facility] Comment on above: Order Comment: Speci men Type: BLOOD SPECIMENOrdering Facility: [facility] Address: [address] [place] [address] Performed By: #### 5 7021-8 ####[facility] LABCLIA [id number] [place] [address] [place] Lymphocytes (Bld) [#/Vol] 2.05 10*3/uL Normal 1.00-4.00 [facility] Comment on above: Order Comment: Speci men Type: BLOOD SPECIMENOrdering Facility: [facility] Address: [address] [place] [address] Performed By: #### 5 7021-8 ####[facility] LABCLIA [id number] [address] [place] [facility] Lymphocytes/100 WBC (Bld) 39.0 % Normal [facility] Comment on above: Order Comment: Speci men Type: BLOOD SPECIMENOrdering Facility: [facility] Address: [address] [place] [address] Performed By: #### 5 7021-8 ####[facility] LABIA [id number] [address] [place] [facility] MCH (RBC) [Entitic mass] 31.6 pg Normal 26.0-34.0 [facility] Comment on above: Order Comment: Speci men Type: BLOOD SPECIMENOrdering Facility: [facility] Address: [address] [place] [address] Performed By: #### 5 7021-8 ####[facility] LABIA [id number] [address] [place] [facility] MCHC (RBC) [Mass/Vol] 34.0 g/dL Normal 30.5-36.0 [facility] Comment on above: Order Comment: Speci men Type: BLOOD SPECIMENOrdering Facility: [facility] Address: [address] [place] [address] Performed By: #### 5 7021-8 ####[facility] LABIA [id number] [address] [place] MCV (RBC) [Entitic vol] 93.0 fL Normal 80.0-100.0 [facility] Comment on above: Order Comment: Speci men Type: BLOOD SPECIMENOrdering Facility: [facility] Address: [address] Performed By: #### 5 7021-8 ####[facility] LABCLIA [id number] [place] [address] [place] Monocytes (Bld) [#/Vol] 0.50 10*3/uL Normal <0.87 [facility] Comment on above: Order Comment: Speci men Type: BLOOD SPECIMENOrdering Facility: [facility] Address: [address] Performed By: #### 5 7021-8 ####[facility] LABCLIA [id number] [place] [address] [place] Monocytes/100 WBC (Bld) 9.5 % Normal [facility] Comment on above: Order Comment: Speci men Type: BLOOD SPECIMENOrdering Facility: [facility] Address: [address] Performed By: #### 5 7021-8 ####[facility] LABCLIA [id number] [place] [address] [place] Neutrophils (Bld) [#/Vol] 2.45 10*3/uL Normal 1.45-7.50 [facility] Comment on above: Order Comment: Speci men Type: BLOOD SPECIMENOrdering Facility: [facility] Address: [address] Performed By: #### 5 7021-8 ####[facility] LABCLIA [id number] [place] [address] [place] Neutrophils/100 WBC (Bld) 46.5 % Normal [facility] Comment on above: Order Comment: Speci men Type: BLOOD SPECIMENOrdering Facility: [facility] Address: [address] Performed By: #### 5 7021-8 ####[facility] LABCLIA [id number] [place] [address] [place] Nucleated RBC (Bld) [#/Vol] 10*3/uL Normal <0.01 [facility] Comment on above: Order Comment: Speci men Type: BLOOD SPECIMENOrdering Facility: [facility] Address: [address] [place] [address] Performed By: #### 5 7021-8 ####[facility] LABIA [id number] [place] [address] [place] Nucleated RBC/100 WBC (Bld) [Ratio] 0.0 /100 WBC Normal [facility] Comment on above: Order Comment: Speci men Type: BLOOD SPECIMENOrdering Facility: [facility] Address: [address] [place] [address] Performed By: #### 5 7021-8 ####[facility] LABIA [id number] [place] [address] [place] Platelet mean volume (Bld) [Entitic vol] 10.2 fL Normal 9.0-12.7 [facility] Comment on above: Order Comment: Speci men Type: BLOOD SPECIMENOrdering Facility: [facility] Address: [address] [place] [address] Performed By: #### 5 7021-8 ####[facility] LABIA [id number] [place] [address] [place] Platelets (Bld) [#/Vol] 209 10*3/uL Normal 150-400 [facility] Comment on above: Order Comment: Speci men Type: BLOOD SPECIMENOrdering Facility: [facility] Address: [address] [place] [address] Performed By: #### 5 7021-8 ####[facility] LABCLIA [id number] [place] [address] [place] RBC (Bld) [#/Vol] 3.99 10*6/uL Normal 3.90-5.20 [facility] Comment on above: Order Comment: Speci men Type: BLOOD SPECIMENOrdering Facility: [facility] Address: [address] [place] [address] Performed By: #### 5 7021-8 ####[facility] LABCLIA [id number] [place] [address] [place] WBC (Bld) [#/Vol] 5.26 10*3/uL Normal 3.70-11.00 [facility] Comment on above: Order Comment: Speci men Type: BLOOD SPECIMENOrdering Facility: [facility] Address: [address] [place] [address] Performed By: #### 5 7021-8 ####[facility] LABCLIA [id number] [place] [address] [place] Comprehensive metabolic 2000 panelon 07-15-2022 Albumin [Mass/Vol] 4.1 g/dL Normal 3.9-4.9 [facility] Comment on above: Order Comment: Speci men Type: BLOOD SPECIMENOrdering Facility: [facility] Address: [address] [place] [address] Performed By: #### 2 4323-8, 97505-0, 2777-1, 3016-3 ####[facility] LABIA [id number] [place] [address] [place] ALP [Catalytic activity/Vol] 66 U/L Normal 34-123 [facility] Comment on above: Order Comment: Speci men Type: BLOOD SPECIMENOrdering Facility: [facility] Address: [address] [place] [address] Performed By: #### 2 4323-8, 07613-7, 2777-1, 3016-3 ####[facility] LABCLIA [id number] [place] [id number] [place] ALT [Catalytic activity/Vol] 35 U/L Normal 7-38 [facility] Comment on above: Order Comment: Speci men Type: BLOOD SPECIMENOrdering Facility: [facility] Address: [address] [place] [id number] Performed By: #### 2 4323-8, 67006-1, 2776-, 3016-3 ####[facility] LABCLIA [id number] [address] [address] [place] Anion gap [Moles/Vol] 12 mmol/L Normal 9-18 [facility] Comment on above: Order Comment: Speci men Type: BLOOD SPECIMENOrdering Facility: [facility] Address: [address] [place] [id number] Performed By: #### 2 4323-8, , 2776-, 6-3 ####[facility] LABCLIA [id number] [place] [address] [place] AST [Catalytic activity/Vol] 46 U/L High 13-35 [facility] Comment on above: Order Comment: Speci men Type: BLOOD SPECIMENOrdering Facility: [facility] Address: [address] [place] [address] [place] [id number] Performed By: #### 2 4323-8, , 2776-02, 3016-3 ####[facility] LABCLIA [id number] [place] [address] [place] Bilirubin [Mass/Vol] 0.3 mg/dL Normal 0.2-1.3 [facility] Comment on above: Order Comment: Speci men Type: BLOOD SPECIMENOrdering Facility: [facility] Address: [address] [place] [id number] Performed By: #### 2 4323-8, , 2776-02, 6-3 ####[facility] LABCLIA [id number] [address] [address] [place] Calcium [Mass/Vol] 9.8 mg/dL Normal 8.5-10.2 [facility] Comment on above: Order Comment: Speci men Type: BLOOD SPECIMENOrdering Facility: [facility] Address: [place] [address] Performed By: #### 2 4323-8, 79915-2, 2776-1, 3016-3 ####[facility] LABCLIA [id number] [place] [address] [place] Chloride [Moles/Vol] 102 mmol/L Normal 97-105 [facility] Comment on above: Order Comment: Speci men Type: BLOOD SPECIMENOrdering Facility: [facility] Address: [place] [phone] Performed By: #### 2 4323-8, , 2776-, 6-3 ####[facility] LABCLIA [id number] [place] [address] [place] CO2 [Moles/Vol] 22 mmol/L Normal 22-30 [facility] Comment on above: Order Comment: Speci men Type: BLOOD SPECIMENOrdering Facility: [facility] Address: [address] [address] Performed By: #### 2 4323-8, , 2776-1, 6-3 ####[facility] LABCLIA [id number] [place] [address] [place] Creatinine [Mass/Vol] 0.92 mg/dL Normal 0.58-0.96 [facility] Comment on above: Order Comment: Speci men Type: BLOOD SPECIMENOrdering Facility: [facility] Address: [place] [address] Performed By: #### 2 4323-8, 62130-6, 2776-1, 3016-3 ####[facility] LABCLIA [id number] [address] [address] [place] ESTIMATED GLOMERULAR FILTRATION RATE 83 mL/min/1.73m??? Normal >=60 [facility] Comment on above: Order Comment: Mani dia Type: BLOOD SPECIMENOrdering Facility: [facility] Address: [address] [place] [address] Result Comment: Breana mated Glomerular Filtration Rate (eGFR) is calculated using the 2020 CKD-EPI creatinine equation. This equation utilizes serum creatinine, sex, and age as parameters. The creatinine assay has traceable calibration to isotope dilution-mass spectrometry. Refer to KDIGO guidelines for clinical interpretation. In patients with unstable renal function, e.g. those with acute kidney injury, the eGFR may not accurately reflect actual GFR. Performed By: #### 2 4323-8, 16177-0, 277-1, 6-3 ####[facility] LABIA [id number] [place] [address] [place] Glucose [Mass/Vol] 74 mg/dL Normal 74-99 [facility] Comment on above: Order Comment: Mani dia Type: BLOOD SPECIMENOrdering Facility: [facility] Address: [address] [place] [address] Result Comment: The Canadian Diabetes Association (ADA) provides guidance for cutoff values for fasting glucose and random glucose. The ADA defines fasting as no caloric intake for at least 8 hours. Fasting plasma glucose results between 100 to 125 mg/dL indicate increased risk for diabetes (prediabetes).Fasting plasma glucose results greater than or equal to 126 mg/dL meet the criteria for diagnosis of diabetes. In the absence of unequivocal hyperglycemia, results should be confirmed by repeat testing. In a patient with classic symptoms of hyperglycemia or hyperglycemic crisis, random plasma glucose results greater than or equal to 200 mg/dL meet the criteria for diagnosis of diabetes.Reference: Standards of Medical Care in Diabetes 2016, Canadian Diabetes Association. Diabetes Care. 2016.39(Suppl 1). Performed By: #### 2 4323-8, 93952-0, 7-1, 6-3 ####[facility] LABIA [id number] [address] [address] [place] Potassium [Moles/Vol] 3.9 mmol/L Normal 3.7-5.1 [facility] Comment on above: Order Comment: Speci men Type: BLOOD SPECIMENOrdering Facility: [facility] Address: [address] [place] [phone] Performed By: #### 2 4323-8, 56872-4, 2776-1, 6-3 ####[facility] LABCLIA [id number] [place] [address] [place] Protein [Mass/Vol] 7.1 g/dL Normal 6.3-8.0 [facility] Comment on above: Order Comment: Speci men Type: BLOOD SPECIMENOrdering Facility: [facility] Address: [address] [place], [place] [address] Performed By: #### 2 4323-8, , 2776-02, 3015-3 ####[facility] LABIA [id number] [place] [address] [place] Sodium [Moles/Vol] 136 mmol/L Normal 136-144 [facility] Comment on above: Order Comment: Speci men Type: BLOOD SPECIMENOrdering Facility: [facility] Address: [address] [place] [address] Performed By: #### 2 4323-8, 41666-5, 2776-02, 6-3 ####[facility] LABIA [id number] [place] [address] [place] Urea nitrogen [Mass/Vol] 19 mg/dL Normal 7-21 [facility] Comment on above: Order Comment: Speci men Type: BLOOD SPECIMENOrdering Facility: [facility] Address: [address] [place] [phone] Performed By: #### 2 4323-8, 93208-0, 2776-, 6-3 ####[facility] LABCLIA [id number] [place] [id number] [place] Magnesium SerPl-mCncon 07-15 Magnesium [Mass/Vol] 1.9 mg/dL Normal 1.7-2.3 [facility] Comment on above: Order Comment: Mani dia Type: BLOOD SPECIMENOrdering Facility: [facility] Address: [address] [place] [address] Performed By: #### 2 4323-8, 25883-8, 2777-1, 3016-3 ####[facility] LABCLIA [id number] [place] [address] [place] PT panel Coag (PPP)on 2022 INR Coag (PPP) [Relative time] 0.9 {INR} Normal 0.9-1.3 [facility] Comment on above: Order Comment: Mani dia Type: BLOOD SPECIMENOrdering Facility: [facility] Address: [address] [place] [address] Result Comment: Zakia min K Antagonist (VKA) Therapeutic Range: INR 2 to 3 (Target INR of 2.5)Note: For patients treated with VKA drugs, such as warfarin, the [employer] College of Chest Physicians 2012 Guideline recommends a therapeutic INR range of 2 to 3 (target INR of 2.5). This recommendation includes high-risk patients with antiphospholipid syndrome with previous arterial or venous thromboembolism, current-generation mechanical or bioprosthetic aortic heart valve replacement.Note: Patients with mechanical aortic valve replacement and additional risk factors for thromboembolic events (atrial fibrillation, previous thromboembolism, LV dysfunction, hypercoagulable conditions) or an older generation mechanical AVR (i.e., ball in-Cage) or any mechanical MVR should have a INR therapeutic range of 2.5 to 3.5 (target INR of 3).Pilo DELGADO, et al. Chest 2012, 141:7S-47SNishimnelson RA, et al. JACC 2017, 70: 252-289 Performed By: #### 3 4528-0, 74926-9 ####[facility] LABCLIA [id number] [place] [address] [place] PT Coag (PPP) [Time] 9.8 s Normal 9.7-13.0 [facility] Comment on above: Order Comment: Specemma dia Type: BLOOD SPECIMENOrdering Facility: [facility] Address: [place] [address] Performed By: #### 3 4528-0, 57132-3 ####[facility] LABCLIA [id number] [place] [address] [place] [facility] Phosphate SerPl-mCncon 07-15 Phosphate [Mass/Vol] 3.9 mg/dL Normal 2.7-4.8 [facility] Comment on above: Order Comment: Specemma dia Type: BLOOD SPECIMENOrdering Facility: [facility] Address: [place] [address] Performed By: #### 2 4323-8, 24090-4, 2777-1, 6-3 ####[facility] LABCLIA [id number] [address] [place] TSH SerPl-aCncon 07-15-2022 TSH Qn 3.370 m[IU]/L Normal 0.270-4.20 0 [facility] Comment on above: Order Comment: Mani dia Type: BLOOD SPECIMENOrdering Facility: [facility] Address: [place] [address] Result Comment: If t he patient is , TSH reference range varies by gestational period:First Trimester (weeks 9-12): 0.180-2.990 mIU/LSecond Trimester: 0.110-3.980 mIU/LThird Trimester: 0.480-4.710 mIU/Pia Castaneda et al. A Practical Approach for the Verifications and Determination of Site- and Trimester-Specific Reference Intervals for Thyroid Function tests in . Thyroid, 2019:29:3:412-420. Khoi E, et al. 2017 Guidelines of the [place] Thyroid Association for the Diagnosis and Management of Thyroid Disease during and the . Thyroid, 2017:27:3:315-389. Performed By: #### 2 4323-8, 68710-1, 2777-1, 3016-3 ####[facility] LABCLIA [id number] [place] [address] [place] Urinalysis complete panel (U )on 07-15-2022 Bilirubin Ql (U) Negative Normal Negative [facility] Comment on above: Order Comment: Speci men Type: URINE SPECIMENOrdering Facility: [facility] Address: [address] [place] [address] Performed By: #### 2 4356-8 ####[facility] LABIA [id number] [place] [address] [place] Clarity (Unsp spec) Clear Normal Clear [facility] Comment on above: Order Comment: Speci men Type: URINE SPECIMENOrdering Facility: [facility] Address: [address] [place] [address] Performed By: #### 2 4356-8 ####[facility] [id number] [address] OF [facility] Color (U) Light Yellow Normal Yellow [facility] Comment on above: Order Comment: Speci men Type: URINE SPECIMENOrdering Facility: [facility] Address: [address] [place] [address] Performed By: #### 2 4356-8 ####[facility] LABIA [id number] [place] [address] [place] Epithelial cells LM.HPF (Urine sed) [#/Area] Few Normal [facility] Comment on above: Order Comment: Speci men Type: URINE SPECIMENOrdering Facility: [facility] Address: [address] [place] [address] Performed By: #### 2 4356-8 ####[facility] LABIA [id number] [place] [address] [place] Glucose Test strip (U) [Mass/Vol] Negative Normal Trace, Negative [facility] Comment on above: Order Comment: Speci men Type: URINE SPECIMENOrdering Facility: [facility] Address: [address] Performed By: #### 2 4356-8 ####[facility] LABCLIA [id number] [place] [address] [place] Hemoglobin Ql (U) Negative Normal Negative, Trace [facility] Comment on above: Order Comment: Speci men Type: URINE SPECIMENOrdering Facility: [facility] Address: [address] [place] [address] Performed By: #### 2 4356-8 ####[facility] LABCLIA [id number] [place] [address] [place] Ketones Ql (U) 1+ Abnormal Trace, Negative [facility] Comment on above: Order Comment: Speci men Type: URINE SPECIMENOrdering Facility: [facility] Address: [address] [place] [address] Performed By: #### 2 4356-8 ####[facility] LABIA [id number] [place] [address] [place] Leukocyte esterase Test strip Ql (U) Negative Normal Negative, 25 Marcella/uL [facility] Comment on above: Order Comment: Speci men Type: URINE SPECIMENOrdering Facility: [facility] Address: [address] [place] [address] Performed By: #### 2 4356-8 ####[facility] LABCLIA [id number] [place] [address] [place] Nitrite Ql (U) Negative Normal Negative [facility] Comment on above: Order Comment: Speci men Type: URINE SPECIMENOrdering Facility: [facility] Address: [address] [place], [place] [address] Performed By: #### 2 4356-8 ####[facility] LABCLIA [id number] [place] [address] [place] pH (U) 5.5 [pH] Normal 5.0-8.0 [facility] Comment on above: Order Comment: Speci men Type: URINE SPECIMENOrdering Facility: [facility] Address: [address] Performed By: #### 2 4356-8 ####[facility] LABIA [id number] [place] [address] [place] Protein (U) [Mass/Vol] Negative Normal Trace, Negative [facility] Comment on above: Order Comment: Speci men Type: URINE SPECIMENOrdering Facility: [facility] Address: [address] Performed By: #### 2 4356-8 ####[facility] [id number] [place] [address] [place] RBC LM.HPF (Urine sed) [#/Area] 0-3 /HPF Normal 0-3 /HPF [facility] Comment on above: Order Comment: Speci men Type: URINE SPECIMENOrdering Facility: [facility] Address: [address] Performed By: #### 2 4356-8 ####[facility] [id number] [place] [address] [place] Specific gravity (U) [Rel density] 1.019 Normal 1.005-1.03 0 [facility] Comment on above: Order Comment: Speci men Type: URINE SPECIMENOrdering Facility: [facility] Address: [address] Performed By: #### 2 4356-8 ####[facility] [id number] [place] [address] [place] Urobilinogen Ql (U) Negative Normal Negative [facility] Comment on above: Order Comment: Speci men Type: URINE SPECIMENOrdering Facility: [facility] Address: [address] Performed By: #### 2 4356-8 ####[facility] LABIA [id number] [place] [address] [place] WBC LM.HPF (Urine sed) [#/Area] 0-5 /HPF Normal 0-5 /HPF [facility] Comment on above: Order Comment: Speci men Type: URINE SPECIMENOrdering Facility: [facility] Address: [address] [place] [address] Performed By: #### 2 4356-8 ####[facility] [id number] [place] [address] [place] aPTT PPPon 07-15-2022 aPTT Coag (PPP) [Time] 24.5 s Normal 23.0-32.4 [facility] Comment on above: Order Comment: Speci men Type: BLOOD SPECIMENOrdering Facility: [facility] Address: [address] [place] [address] Performed By: #### 3 4528-0, 80818-6 ####[facility] [id number] [address] [place] HCG Preg Ur Qlon 07-14-2022 HCG ( test) Ql (U) Negative Normal Negative [facility] Comment on above: Order Comment: Speci men Type: URINE SPECIMENOrdering Facility: [facility] Address: [address] [place] [address] Result Comment: This test is intended to aid in the early detection of . Very dilute urine samples, as indicated by a low specific gravity, may not contain field representative levels of hCG. This test detects intact hCG only. This test does not reliably detect hCG degradation products, including free-beta subunit and beta-core fragment. Therefore, this test may show reduced reactivity in urine after 8 weeks gestation. A number of conditions other than , including trophoblastic disease and certain non-trophoblastic neoplasms cause elevated levels of hCG. As with any assay employing mouse antibodies, the possibility exists for interference by human anti-mouse antibodies (HAMA) in the specimen. The test provides a presumptive diagnosis for . Performed By: #### 2 106-3 ####[facility] [id number] [place] [address] [place] HISTORY PHYSICALon 3 HISTORY PHYSICAL Normal [facility] TOX SCREEN ROUT URon 023 Amphetamines Confirm (U) [Mass/Vol] Negative Normal Negative [facility] Comment on above: Order Comment: Speci men Type: URINE SPECIMENOrdering Facility: [facility] Address: [address] [place] [address] Result Comment: Cuto ff threshold at 1000 ng/mL. Performed By: #### U TOX2 ####[facility] LABIA [id number] [place] [address] [place] BARBITURATES, URINE Negative Normal Negative [facility] Comment on above: Order Comment: Speci men Type: URINE SPECIMENOrdering Facility: [facility] Address: [address] [place] [address] Result Comment: Cuto ff threshold at 200 ng/mL. Performed By: #### U TOX2 ####[facility] LABCLIA [id number] [place] [address] [place] BENZODIAZEPINES, UR Negative Normal Negative [facility] Comment on above: Order Comment: Speci men Type: URINE SPECIMENOrdering Facility: [facility] Address: [address] [place] [address] Result Comment: Cuto ff threshold at 200 ng/mL. Performed By: #### U TOX2 ####[facility] LABCLIA [id number] [place] [address] [place] CANNABINOIDS,URINE Positive Abnormal Negative [facility] Comment on above: Order Comment: Speci men Type: URINE SPECIMENOrdering Facility: [facility] Address: [address] [place] [address] Result Comment: Cuto ff threshold at 50 ng/mL. Performed By: #### U TOX2 ####[facility] LABCLIA [id number] [place] [address] [place] Cocaine Ql (U) Negative Normal Negative [facility] Comment on above: Order Comment: Speci men Type: URINE SPECIMENOrdering Facility: [facility] Address: [address] [place] [address] Result Comment: Cuto ff threshold at 300 ng/mL. Performed By: #### U TOX2 ####[facility] LABCLIA [id number] [place] [address] [place] Ethanol (U) [Mass/Vol] 87 mg/dL High <11 [facility] Comment on above: Order Comment: Speci men Type: URINE SPECIMENOrdering Facility: [facility] Address: [address] [place] [address] Performed By: #### U TOX2 ####[facility] LABIA [id number] [place] [address] [place] Opiates Screen Ql (U) Negative Normal Negative [facility] Comment on above: Order Comment: Speci men Type: URINE SPECIMENOrdering Facility: [facility] Address: [address] [place] [address] Result Comment: Cuto ff threshold at 300 ng/mL. Performed By: #### U TOX2 ####[facility] LABIA [id number] [place] [address] [place] oxyCODONE cutoff Screen (U) [Mass/Vol] Negative Normal Negative [facility] Comment on above: Order Comment: Speci men Type: URINE SPECIMENOrdering Facility: [facility] Address: [address] [place] [address] Result Comment: Cuto ff threshold at 100 ng/mL. Performed By: #### U TOX2 ####[facility] LABCLIA [id number] [place] [address] [place] Phencyclidine Ql (U) Negative Normal Negative [facility] Comment on above: Order Comment: Speci men Type: URINE SPECIMENOrdering Facility: [facility] Address: [address] [id number] Result Comment: Cuto ff threshold at 25 ng/mL. Performed By: #### U TOX2 ####[facility] LABCLIA [id number] EDWARThu [facility] [id number] [address] [place] CNPNon 07-13-2022 CNPN Normal [facility] CNPNon 07-11-2022 CNPN Normal [facility] CNPNon 07-05-2022 CNPN Normal [facility] CNOVon 07-03-2022 CNOV Normal [facility] CNPNon 06-29-2022 CNPN Normal [facility] CNOVon 06-27-2022 CNOV Normal [facility] Retail - Clinical Noteon Retail - Clinical Note [id number]#[id number]:127 Normal [facility] CNPNon 05-11-2022 CNPN Normal [facility] Consultation Noteon 04-18-19 23 Consultation Note [id number]#[id number]:127 Normal [facility] Medication Consenton 023 Medication Consent [id number]#[id number]:127 Normal [facility] Ambulatory Visit Summaryon 0 04-17-2022 Ambulatory Visit Summary BEN BARR :1985 Visit Date:04/17/2022 Ambulatory Visit Instructions Your Diagnosis Attention deficit disorder (ADD) Common variable immunodeficiency Nausea and vomiting Medication management Your Care Team Attending Physician - Lizy SORIA DO Primary Care Physician - Lizy SORIA DO This Is Your Medications List Contact prescribing physician if questions or concerns Misc Prescription (1 LITER NORMAL SALINE) Misc Prescription (Magnesium Chloride 64 mg) Turmeric (Turmeric 500 mg oral capsule) busPIRone (busPIRone 10 mg Tab) cholecalciferol (Vitamin D3 5000 intl units oral capsule) fluoxetine (FLUoxetine 60 mg oral tablet) immune globulin intravenous and subcutaneous (Gammagard Liquid 10% injectable solution) lorazepam (LORazepam 0.5 mg Tab) metoprolol (Metoprolol tartrate 50 mg Tab) omega-3 polyunsaturated fatty acids ([place]-3 Fish Oil 1000 mg oral capsule) ondansetron (Zofran ODT 4 mg Tab-Dis) oxcarbazepine (Trileptal 150 mg Tab) oxcarbazepine (Trileptal 150 mg Tab) potassium chloride (potassium chloride 10 mEq Cap-ER) propranolol [Image Removed: STOP]Stop taking these medications dexmethylphenidate (Focalin XR 20 mg oral capsule, extended release) fluticasone nasal (fluticasone 0.05 mg/inh Nasal [address]) Procedures Performed Esophagogastroduodenoscopy (01/02/2022), EGD (esophagogastroduodenoscopy ) gastric outlet reduction (02/02/2021), Esophagogastroduodenoscopy (12/09/2020), Ileostomy (03/10/2015), colon removed, Robotic laparoscopic total abdominal colectomy with ileorectal anastomosis and diverting ileostomy, Small bowel resection. Discharge Vitals Temperature (Temporal Artery) 36.4 ?C Heart Rate (Peripheral) 90 Blood Pressure 102/64 Height 155 cm Height 61 in Weight 65.8 kg Weight 144.76 lb BMI 27.39 What to do next You Need to Schedule the Following Appointments Follow Up with Lizy SORIA DO, FAM When: In 6 months Where: [address] [facility] [address] [place] [address]- Medications What How Much When Why Instructions Unchanged busPIRone (busPIRone 10 mg Tab) 3 Tablets By Mouth 2 times a day Contact prescribing physician if questions or concerns Unchanged cholecalciferol (Vitamin D3 5000 intl units oral capsule) 1 Capsules By Mouth Every day with food Contact prescribing physician if questions or concerns Unchanged fluoxetine (FLUoxetine 60 mg oral tablet) 1 Tablets By Mouth Every day Contact prescribing physician if questions or concerns Unchanged immune globulin intravenous and subcutaneous (Gammagard Liquid 10% injectable solution) 10 Gram Subcutaneous Every 4 weeks Contact prescribing physician if questions or concerns Unchanged lorazepam (LORazepam 0.5 mg Tab) 1 Tablets By Mouth Once a day (at bedtime) Episode of shaking Contact prescribing physician if questions or concerns Unchanged metoprolol (Metoprolol tartrate 50 mg Tab) 1 Tablets By Mouth 2 times a day Duration: 90 Days Contact prescribing physician if questions or concerns Unchanged Misc Prescription (1 LITER NORMAL SALINE) 1 LITER GIVEN WITH GAMMAGARD Contact prescribing physician if questions or concerns Unchanged Misc Prescription (Magnesium Chloride 64 mg) 1 tab By Mouth Every day take with the Vitamin D Contact prescribing physician if questions or concerns Unchanged omega-3 polyunsaturated fatty acids ([place]-3 Fish Oil 1000 mg oral capsule) 1 Capsules By Mouth Every day Contact prescribing physician if questions or concerns Unchanged ondansetron (Zofran ODT 4 mg Tab-Dis) 1 Tablets By Mouth Every 8 hours as needed for Nausea/Vomiting Contact prescribing physician if questions or concerns Unchanged oxcarbazepine (Trileptal 150 mg Tab) 1 Tablets By Mouth 2 times a day Contact prescribing physician if questions or concerns Unchanged oxcarbazepine (Trileptal 150 mg Tab) 1 Tablets By Mouth 2 times a day Contact prescribing physician if questions or concerns Unchanged potassium chloride (potassium chloride 10 mEq Cap-ER) 1 Capsules By Mouth Every day Contact prescribing physician if questions or concerns Unchanged propranolol Contact prescribing physician if questions or concerns Unchanged Turmeric (Turmeric 500 mg oral capsule) 1 Capsules By Mouth Every day Contact prescribing physician if questions or concerns What How Much When Why Comments Stop Taking dexmethylphenidate (Focalin XR 20 mg oral capsule, extended release) 1 Capsules By Mouth Once a day (in the morning) Attention deficit disorder (ADD) in adult 30 days Stop Taking fluticasone nasal (fluticasone 0.05 mg/ inh Nasal [address]) 2 Sprays Nasal Inhalation Every day each nostril Allergies Rondec Problems Ongoing - Any problem that you are currently receiving treatment for. Attention deficit disorder (ADD) Change in bowel habits Chronic insomnia Chronic kidney disease, stage 2 (mild) Common variable immunodeficiency Generalized anxiety disord (more content not included)... Normal [facility] Family Medicine Office/Clini c Noteon 04-17-2022 Family Medicine Office/Clinic Note Chief Complaint 3 month follow up HPI Staff Ben is a 35 year old female who presents for a 3 month follow up for her controlled medication. She has a chronic history of ADD. She stopped Focalin XR 15mg once daily OARRS reviewed: Yes Medication Agreement updated: 04/17/22 Urine Drug Screen done: 04/17/22 Pill Count Done: No States her dog headbutted her on Sunday04/14/22. Since then she C/O nausea/vomiting, loss of appetite abdominal swelling, headaches and bruising around her eyes. History of Present Illness I have reviewed and verified the staff HPI to be accurate for this encounter. CVID, now cytopenia. vomiting started after head trauma. No LOC. No lingering headache. Review of Systems PHQ Score Initial Depression Screen Score: 0 Constitutional: no fever, no chills, no sweats, no weakness Respiratory: no shortness of breath, no cough, no orthopnea, no wheezing Cardiovascular: no chest pain, no palpitations, no edema Additional ROS info: Except as noted in the above Review of Systems and in the History of Present Illness all other systems have been reviewed and are negative or noncontributory. Physical Exam Vitals & Measurements T: 36.4 ?C(Temporal Artery) HR: 90(Peripheral) BP: 102/64 SpO2: 98% HT: 61 in HT: 155 cm WT: 65.8 kg WT: 144.76 lb BMI: 27.39 General: alert, no acute distress ENMT: TM's clear, oral mucosa moist, no pharyngeal erythema or exudate Cardiovascular: regular rate and rhythm, normal peripheral perfusion Respiratory: Lungs CTA, respirations non labored Extremities: no deformity, no trauma Neurological: oriented x 4, LOC appropriate for age, CN II-XII intact, motor strength equal & normal bilaterally, sensation equal & normal bilaterally, speech normal Assessment/Plan 1. Attention deficit disorder (ADD) (F98.8: Other specified behavioral and emotional disorders with onset usually occurring in childhood and adolescence) she is off the focalin. 2. Common variable immunodeficiency (D83.9: Common variable immunodeficiency, unspecified) She continues IVIG 3. Nausea and vomiting (R11.2: Nausea with vomiting, unspecified) ? gastroparesis vs post-concussion from head trauma. 4. Medication management (Z79.899: Other ad terminal makeup operator (current) drug therapy) Ordered: Drug Screen POC 56089 Orders: lorazepam, 0.5 mg = 1 tab(s), Oral, Once a day (at bedtime), # 4 tab(s), Refills(s) 0, Pharmacy: [facility], 155, cm, 01/02/22 7:59:00 EST, Height/Length Dosing, 60.2, kg, 01/02/22 7:59:00 EST, Weight Dosing lorazepam, 0.5 mg = 1 tab(s), Oral, Once a day (at bedtime), # 4 tab(s), Refills(s) 0, Pharmacy: [facility], 155, cm, 01/02/22 7:59:00 EST, Height/Length Dosing, 60.2, kg, 01/02/22 7:59:00 EST, Weight Dosing ondansetron, 4 mg = 1 tab(s), Oral, q8hr, PRN Nausea/Vomiting, # 30 tab(s), Refills(s) 1, Pharmacy: [facility], 155, cm, 01/02/22 7:59:00 EST, Height/Length Dosing, 60.2, kg, 01/02/22 7:59:00 EST, Weight Dosing ondansetron, 4 mg = 1 tab(s), Oral, q8hr, PRN Nausea/Vomiting, # 30 tab(s), Refills(s) 1, Pharmacy: [facility], 155, cm, 11/01/21 16:20:00 EDT, Height/Length Dosing, 59.7, kg, 11/01/21 16:20:00 EDT, Weight Dosing Follow-up With When Contact Information Lizy SORIA DO, FAM In 6 months [address] [place] [id number]- Additional Instructions: Problem List/Past Medical History Ongoing Attention deficit disorder (ADD) Change in bowel habits Chronic insomnia Chronic kidney disease, stage 2 (mild) Common variable immunodeficiency Generalized anxiety disorder History of colectomy History of stomach ulcers Hypothyroidism Medication management Multiple falls Nausea and vomiting Paresthesias 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 Medications 1 LITER NORMAL SALINE busPIRone 10 mg Tab, 30 mg= 3 tab(s), Oral, BID, 5 refills FLUoxetine 60 mg oral tablet, 60 mg= 1 tab(s), Oral, Daily Gammagard Liquid 10% injectable solution, 10 gm, SubCutaneous, q4wk, 11 refills LORazepam 0.5 mg Tab, 0.5 mg= 1 tab(s), Oral, Once a day (at bedtime) Magnesium Chloride 64 mg, 1 tab, Oral, Daily, 3 refills Metoprolol tartrate 50 mg Tab, 50 mg= 1 tab(s), Oral, BID, 3 refills [place]-3 Fish Oil 1000 mg oral capsule, 1000 mg= 1 cap(s), Oral, Daily, 11 refills potassium chloride 10 mEq Cap-ER, 10 mEq= 1 cap(s), Oral, Daily, 2 refills propranolol Trileptal 150 mg Tab, 150 mg= 1 tab(s), (more content not included)... Normal [facility] Comment on above: Result Comment: Elec tronically Signed By: Lizy SORIA DO\.br\Date and Time Signed: 04/17/22 16:28 EST ACETYLCHOLINE REC BINDING AB on 04-13-2022 ACETYLCHOLINE BINDING, QUAL Equivocal Abnormal Negative [facility] Comment on above: Order Comment: Mani dia Type: BLOOD SPECIMEN [facility] Address: [address] [place] [address] Result Comment: Anti -acetylcholine receptor binding antibody test is used as an aid in diagnosis of myasthenia gravis. A negative result cannot exclude myasthenia gravis. Clinical correlation is required. Performed By: #### 1 3926-1, ACHRAB #### [facility] CLIA [id number] [address] [facility] [place] [address] [place] Acetylcholine receptor binding Ab (S) [Moles/Vol] 0.27 nmol/L High <0.21 [facility] Comment on above: Order Comment: Mani dia Type: BLOOD SPECIMEN [facility] Address: [address] [place] [address] Performed By: #### 1 3926-1, ACHRAB #### [facility] CLIA [id number] [address] [place] [address] [place] AMINO ACIDS, PLASMA W/ CONSU LTATIONon 04-13-2022 Alanine [Moles/Vol] 247 umol/L Normal 177-583 [facility] Comment on above: Order Comment: Speci men Type: BLOOD SPECIMEN [facility] Address: [address] [place] [address] Performed By: #### C ARNPL #### [facility] CLIA [id number] [address] [place] Alloisoleucine [Moles/Vol] <1 Normal 0-2 [facility] Comment on above: Order Comment: Speci men Type: BLOOD SPECIMEN [facility] Address: [address] [place] [address] Performed By: #### C ARNPL #### [facility] CLIA [id number] [address] [place] [address] [place] Alpha aminoadipate [Moles/Vol] <1 Normal 0-6 [facility] Comment on above: Order Comment: Speci men Type: BLOOD SPECIMEN [facility] Address: [address] [place] [address] Performed By: #### C ARNPL #### [facility] CLIA [id number] [address] [place] [address] [place] AMINO ACID CONSULTATION, PLASMA Normal [facility] Comment on above: Order Comment: Speci men Type: BLOOD SPECIMEN [facility] Address: [address] [place] [address] Result Comment: This plasma amino acid analysis shows an increased level of taurine and a reduced level of glycine but is not diagnostic of a specific disorder. Reference intervals from Lui Tam, Jerson MG, Hernando JR, and Cr DK: Biochemical Genetics: A Laboratory Manual, Copyright 1989 by [employer] Reference intervals not established for some amino acids. This test was developed and its performance characteristics determined by [facility] Pathology and Laboratory Medicine [place] ([facility]). It has not been cleared or approved by the FDA. -[facility] is regulated under CLIA as qualified to perform high complexity testing. This test is used for clinical purposes. It should not be regarded as investigational or for research. Performed By: #### C ARNPL #### [facility] CLIA [id number] [address] [place] [address] OF [facility] AMINO ACIDS REVIEW, PLASMA Reviewed by Kevin Barragan MD, Ph.D ([id number]) [facility] Comment on above: Order Comment: Speci men Type: BLOOD SPECIMEN [facility] Address: [address] [place] [address] Performed By: #### C ARNPL #### [facility] [place] [id number] [address] [place] [address] [place] Arginine [Moles/Vol] 54 umol/L Normal 15-128 [facility] Comment on above: Order Comment: Speci men Type: BLOOD SPECIMEN [facility] Address: [address] [place] [address] Performed By: #### C ARNPL #### [facility] CLIA [id number] [address] [place] [address] [place] Asparagine [Moles/Vol] 55 umol/L Normal 35-74 [facility] Comment on above: Order Comment: Speci men Type: BLOOD SPECIMEN [facility] Address: [address] [place] [address] Performed By: #### C ARNPL #### [facility] CLIA [id number] [address] [place] [address] [place] Aspartate [Moles/Vol] 2 umol/L Normal 1-25 [facility] Comment on above: Order Comment: Speci men Type: BLOOD SPECIMEN [facility] Address: [address] [place], [place] Performed By: #### C ARNPL #### [facility] CLIA [id number] [address] [place] [address] [place] Citrulline [Moles/Vol] 22 umol/L Normal 12-55 [facility] Comment on above: Order Comment: Speci men Type: BLOOD SPECIMEN [facility] Address: [address] [id number] Performed By: #### C ARNPL #### [facility] CLIA [id number] [address] [place] [address] [place] Cystine [Moles/Vol] 31 umol/L Normal 5-82 [facility] Comment on above: Order Comment: Speci men Type: BLOOD SPECIMEN [facility] Address: [address] [place] [address] Performed By: #### C ARNPL #### [facility] CLIA [id number] [address] [place] [address] [place] Glutamate [Moles/Vol] 43 umol/L Normal 10-131 [facility] Comment on above: Order Comment: Speci men Type: BLOOD SPECIMEN [facility] Address: [address] [place] [id number] Performed By: #### C ARNPL #### [facility] CLIA [id number] [address] [place] [address] [place] Glutamine [Moles/Vol] 375 umol/L Normal 205-756 [facility] Comment on above: Order Comment: Speci men Type: BLOOD SPECIMEN [facility] Address: [address] [place] [id number] Performed By: #### C ARNPL #### [facility] CLIA [id number] [address] [place] [address] [place] Glycine [Moles/Vol] 133 umol/L Low 151-490 [facility] Comment on above: Order Comment: Speci men Type: BLOOD SPECIMEN [facility] Address: [address] Performed By: #### C ARNPL #### [facility] CLIA [id number] [address] [place] [address] [place] Histidine [Moles/Vol] 76 umol/L Normal 72-124 [facility] Comment on above: Order Comment: Speci men Type: BLOOD SPECIMEN [facility] Address: [address] [place], [place] [address] Performed By: #### C ARNPL #### [facility] CLIA [id number] [address] [place] [address] [place] Hydroxylysine [Moles/Vol] <1 High <=0 [facility] Comment on above: Order Comment: Speci men Type: BLOOD SPECIMEN [facility] Address: [address] [place] [address] Performed By: #### C ARNPL #### [facility] CLIA [id number] [address] [place] [address] [place] Hydroxyproline [Moles/Vol] 6 umol/L Normal 0-53 [facility] Comment on above: Order Comment: Speci men Type: BLOOD SPECIMEN [facility] Address: [address] [place], [place] Performed By: #### C ARNPL #### [facility] CLIA [id number] [address] [place] [address] [place] Isoleucine [Moles/Vol] 73 um/L Normal 30-108 [facility] Comment on above: Order Comment: Speci men Type: BLOOD SPECIMEN [facility] Address: [address] Performed By: #### C ARNPL #### [facility] CLIA [id number] [address] [place] [address] [place] Leucine [Moles/Vol] 132 umol/L Normal 72-201 [facility] Comment on above: Order Comment: Speci men Type: BLOOD SPECIMEN [facility] Address: [address] [place] [address] Performed By: #### C ARNPL #### [facility] CLIA [id number] [address] [place] [address] [place] Lysine [Moles/Vol] 157 umol/L Normal 116-296 [facility] Comment on above: Order Comment: Speci men Type: BLOOD SPECIMEN [facility] Address: [address] [place] [address] Performed By: #### C ARNPL #### [facility] CLIA [id number] [address] [place] [address] [place] Methionine [Moles/Vol] 29 umol/L Normal 10-42 [facility] Comment on above: Order Comment: Speci men Type: BLOOD SPECIMEN Ordering Facility: [facility] Address: [address] [place], [place] [address] Performed By: #### C ARNPL #### [facility] CLIA [id number] [address] [place] [address] [place] Ornithine [Moles/Vol] 45 umol/L Low 48-195 [facility] Comment on above: Order Comment: Speci men Type: BLOOD SPECIMEN Ordering Facility: [facility] Address: [address] [place], [place] [address] Performed By: #### C ARNPL #### [facility] CLIA [id number] [address] [place] [address] [place] Phenylalanine [Moles/Vol] 86 umol/L High 35-85 [facility] Comment on above: Order Comment: Speci men Type: BLOOD SPECIMEN Ordering Facility: [facility] Address: [address] [place], [place] [address] Performed By: #### C ARNPL #### [facility] CLIA [id number] [address] [place] [address] [place] Proline [Moles/Vol] 142 umol/L Normal 97-329 [facility] Comment on above: Order Comment: Speci men Type: BLOOD SPECIMEN Ordering Facility: [facility] Address: [address] [place], [place] [address] Performed By: #### C ARNPL #### [facility] CLIA [id number] [address] [place] [address] [place] Sarcosine [Moles/Vol] <1 High <=0 [facility] Comment on above: Order Comment: Speci men Type: BLOOD SPECIMEN Ordering Facility: [facility] Address: [address] [place], [place] [address] Performed By: #### C ARNPL #### [facility] CLIA [id number] [address] [place] [address] [place] Serine [Moles/Vol] 64 umol/L Normal 58-181 [facility] Comment on above: Order Comment: Speci men Type: BLOOD SPECIMEN Ordering Facility: [facility] Address: [address] [place], [place] [address] Performed By: #### C ARNPL #### [facility] CLIA [id number] [address] [place] [address] [place] Taurine [Moles/Vol] 463 umol/L High 54-210 [facility] Comment on above: Order Comment: Speci men Type: BLOOD SPECIMEN Ordering Facility: [facility] Address: [address] [place], [place] [address] Performed By: #### C ARNPL #### [facility] CLIA [id number] [address] [place] [address] [place] Threonine [Moles/Vol] 124 umol/L Normal 60-225 [facility] Comment on above: Order Comment: Speci men Type: BLOOD SPECIMEN Ordering Facility: [facility] Address: [address] [address] Performed By: #### C ARNPL #### [facility] CLIA [id number] [address] [place] [address] [place] Tyrosine [Moles/Vol] 85 umol/L Normal 34-112 [facility] Comment on above: Order Comment: Speci men Type: BLOOD SPECIMEN Ordering Facility: [facility] Address: [address] [place] [address] Performed By: #### C ARNPL #### [facility] CLIA [id number] [address] [place] [address] [place] Valine [Moles/Vol] 294 umol/L Normal 119-336 [facility] Comment on above: Order Comment: Speci men Type: BLOOD SPECIMEN Ordering Facility: [facility] Address: [address] [place] [address] Performed By: #### C ARNPL #### [facility] CLIA [id number] [address] [place] [address] [place] C-REACTIVE PROTEIN (CRP)on 0 04-13-2022 CRP [Mass/Vol] 0.3 mg/dL <0.9 mg/dL [facility] CARNITINE FREE/TOTAL, PLASMA on 04-13-2022 C0 [Moles/Vol] 40 umol/L Normal 22-54 [facility] Comment on above: Order Comment: Speci men Type: BLOOD SPECIMEN Ordering Facility: [facility] Address: [address] [place], [place] [address] Performed By: #### C ARNPL #### [facility] CLIA [id number] [address] [place] [address] [place] C0/Total carnitine [Molar fraction] 0.784 Normal 0.700-0.[address] [facility] Comment on above: Order Comment: Speci men Type: BLOOD SPECIMEN Ordering Facility: [facility] Address: [address] [place] [address] Result Comment: NOTE : The determination of the plasma free carnitine level and of the total free and acylcarnitine levels is dependent on multiple factors, including the nutritional status of the subject, his/her underlying disorder, concurrent illnesses and, sometimes, medications that he/she is receiving. Consequently, a normal or minimally abnormal result with this test does not always rule-out the possibility of a disorder of carnitine or fatty acid metabolism. This test does not by itself provide information on the levels of various plasma acylcarnitine species and measurement of the latter is often needed for the diagnostic evaluation and follow-up of disorders of mitochondrial fatty acid beta-oxidation and some other disorders associated with pathologic levels of selected acylcarnitine species. This test was developed and its performance characteristics determined by the [facility] [place] at the [facility]. The U.S. Food and Drug Administration has not approved or cleared this test, however, FDA clearance or approval is not currently required for clinical use. Performed By: #### C ARNPL #### [facility] CLIA [id number] [address] [place] [address] [place] Carnitine [Moles/Vol] 51 umol/L Normal 27-68 [facility] Comment on above: Order Comment: Mani dia Type: BLOOD SPECIMEN Ordering Facility: [facility] Address: [address] [place] [address] Performed By: #### C ARNPL #### [facility] CLIA [id number] [facility] [place] [address] [place] CK CREATINE KINASEon 023 CK [Catalytic activity/Vol] 41 U/L Low 42 - 196 U/L [facility] CK SerPl-cCncon 04-13-2022 CK [Catalytic activity/Vol] 41 U/L Low 42-196 [facility] Comment on above: Order Comment: Mani dia Type: BLOOD SPECIMEN Ordering Facility: [facility] Address: [address] [place] [address] Performed By: #### C ARNPL #### [facility] CLIA [id number] [address] [place] [address] [place] CNOVon 04-13-2022 CNOV Normal [facility] CRP SerPl-mCncon 04-13-2022 CRP [Mass/Vol] 0.3 mg/dL Normal <0.9 [facility] Comment on above: Order Comment: Speci men Type: BLOOD SPECIMEN Ordering Facility: [facility] Address: [address] [place], [place] [address] Performed By: #### C ARNPL #### [facility] CLIA [id number] [facility] [place] [address] [place] CYTOKINE PANEL 13, SERUMon 0 04-13-2022 INTERFERON GAMMA <4.2 Normal <=4.2 [facility] Comment on above: Order Comment: Speci men Type: BLOOD SPECIMEN Ordering Facility: [facility] Address: [address] [place] [address] Performed By: #### 1 3926-1, ACHRAB #### [facility] CLIA [id number] [address] [place] [address] [place] INTERLEUKIN 1 BETA <6.5 Normal <=6.7 [facility] Comment on above: Order Comment: Speci men Type: BLOOD SPECIMEN Ordering Facility: [facility] Address: [address] [place], [place] [address] Performed By: #### 1 3926-1, ACHRAB #### [facility] CLIA [id number] [address] [place] [address] [place] INTERLEUKIN 10 <2.8 Normal <=2.8 [facility] Comment on above: Order Comment: Speci men Type: BLOOD SPECIMEN Ordering Facility: [facility] Address: [address] [place], [place] [address] Performed By: #### 1 3926-1, ACHRAB #### [facility] CLIA [id number] [address] [place] [address] [place] INTERLEUKIN 12 <1.9 Normal <=1.9 [facility] Comment on above: Order Comment: Speci men Type: BLOOD SPECIMEN Ordering Facility: [facility] Address: [address] [address] Performed By: #### 1 3926-1, ACHRAB #### [facility] CLIA [id number] [address] [place] INTERLEUKIN 13 <1.7 Normal <=2.3 [facility] Comment on above: Order Comment: Speci men Type: BLOOD SPECIMEN Ordering Facility: [facility] Address: [address] [address] Performed By: #### 1 3926-1, ACHRAB #### [facility] CLIA [id number] [address] [place] INTERLEUKIN 17 <1.4 Normal <=1.4 [facility] Comment on above: Order Comment: Speci men Type: BLOOD SPECIMEN Ordering Facility: [facility] Address: [address] [address] Performed By: #### 1 3926-1, ACHRAB #### [facility] CLIA [id number] [address] [place] INTERLEUKIN 2 <2.1 Normal <=2.1 [facility] Comment on above: Order Comment: Speci men Type: BLOOD SPECIMEN Ordering Facility: [facility] Address: [address] [address] Performed By: #### 1 3926-1, ACHRAB #### [facility] CLIA [id number] [address] [place] [address] [facility] [place] INTERLEUKIN 4 (INT4) <2.2 Normal <=2.2 [facility] Comment on above: Order Comment: Speci men Type: BLOOD SPECIMEN Ordering Facility: [facility] Address: [address] [address] Performed By: #### 1 3926-1, ACHRAB #### [facility] CLIA [id number] [address] [place] [address] [place] INTERLEUKIN 5 <2.1 Normal <=2.1 [facility] Comment on above: Order Comment: Speci men Type: BLOOD SPECIMEN Ordering Facility: [facility] Address: [address] [place] [address] Performed By: #### 1 3926-1, ACHRAB #### [facility] CLIA [id number] [address] [place] [address] [place] INTERLEUKIN 6 <2.0 Normal <=2.0 [facility] Comment on above: Order Comment: Speci men Type: BLOOD SPECIMEN Ordering Facility: [facility] Address: [address] [place] [address] Performed By: #### 1 3926-1, ACHRAB #### [facility] CLIA [id number] [address] [place] [address] [place] INTERLEUKIN 8 <3.0 Normal <=3.0 [facility] Comment on above: Order Comment: Speci men Type: BLOOD SPECIMEN Ordering Facility: [facility] Address: [address] [place] [address] Performed By: #### 1 3926-1, ACHRAB #### [facility] CLIA [id number] [address] [place] [address] [place] INTERLEUKIN-2 RECEPTOR 261.0 pg/mL Normal 175.3-858. 2 [facility] Comment on above: Order Comment: Speci men Type: BLOOD SPECIMEN Ordering Facility: [facility] Address: [address] [place] [address] Performed By: #### 1 3926-1, ACHRAB #### [facility] CLIA [id number] [address] [place] [address] [place] TUMOR NECROSIS FACTOR - ALPHA 6.4 pg/mL Normal <=7.2 [facility] Comment on above: Order Comment: Speci men Type: BLOOD SPECIMEN Ordering Facility: [facility] Address: [address] [place] [address] Result Comment: INTE RPRETIVE INFORMATION: Cytokines Results are used to understand the pathophysiology of immune, infectious, or inflammatory disorders, or may be used for research purposes. This test was developed and its performance characteristics determined by [facility]. It has not been cleared or approved by the [place] Food and Drug Administration. This test was performed in a CLIA certified laboratory and is intended for clinical purposes. Performed By: [facility] [address] [place] [address] Merchandising Specialist: Phan Beard MD, PhD Performed By: #### 1 3926-1, ACHRAB #### [facility] CLIA [id number] [address] [place] [address] [place] ESR Westergren method (Bld) [Velocity]on 04-13-2022 ESR (Bld) [Velocity] 10 mm/h Normal 0-20 [facility] Comment on above: Order Comment: Speci men Type: BLOOD SPECIMEN Ordering Facility: [facility] Address: [address] [place] [address] Performed By: #### C ARNPL #### [facility] CLIA [id number] [address] [place] [address] [place] ESTROGEN FRACTION BLon 04-13 ESTRADIOL 230.6 pg/mL Normal [facility] Comment on above: Order Comment: Speci men Type: BLOOD SPECIMEN Ordering Facility: [facility] Address: [address] [place] [address] Result Comment: REFE RENCE INTERVAL: Estradiol by Hot Dip Galvanizer For a complete set of all established reference intervals, refer to [employer]/Tests/Pub/[id number]. This test was developed and its performance characteristics determined by [facility]. It has not been cleared or approved by the [place] Food and Drug Administration. This test was performed in a CLIA certified laboratory and is intended for clinical purposes. Performed By: #### C ARNPL #### [facility] CLIA [id number] [address] [place] [address] [place] ESTROGENS TOTAL 354.3 pg/mL Normal [facility] Comment on above: Order Comment: Speci men Type: BLOOD SPECIMEN Ordering Facility: [facility] Address: [address] [place] [address] Result Comment: Refe rence interval of estrogens (pg/mL) Estrone Estradiol Total Estrogens Early follicular <150.0 30.0-100.0 30.0-250.0 Late follicular 100.0-250.0 100.0-400.0 200.0-650.0 Luteal <200.0 50.0-150.0 50.0-350.0 Post-menopausal 3.0-32.0 2.0-21.0 5.0-52.0 REFERENCE INTERVAL: Estrogens Total Calculation For a complete set of all established reference intervals, refer to [employer]/Tests/Pub/[id number]. Performed By: [facility] [address] [place] [address] Merchandising Specialist: Phan Beard MD, PhD Performed By: #### C ARNPL #### [facility] CLIA [id number] [address] [place] [address] [place] ESTRONE 123.7 pg/mL Normal [facility] Comment on above: Order Comment: Speci men Type: BLOOD SPECIMEN Ordering Facility: [facility] Address: [address] [place] [address] Result Comment: INTERPRETIVE INFORMATION: Estrone by Hot Dip Galvanizer For a complete set of all established reference intervals, refer to [employer]/Tests/Pub/[id number]. This test was developed and its performance characteristics determined by [facility]. It has not been cleared or approved by the [place] Food and Drug Administration. This test was performed in a CLIA certified laboratory and is intended for clinical purposes. Performed By: #### C ARNPL #### [facility] CLIA [id number] [address] [place] [address] [place] GAD65 Ab Ser-aCncon 04-13-19 Glutamate decarboxylase 65 Ab Qn (S) >120.0 High <=5.0 [facility] Comment on above: Order Comment: Mani dia Type: BLOOD SPECIMEN Ordering Facility: [facility] Address: [address] [place] [address] Result Comment: Anti -glutamic acid decarboxylase antibody (GAD65) test usually in conjunction with another test such as IA-2 antibody is used as an aid in establishing the autoimmune nature of previously-diagnosed type I diabetes mellitus or in predicting of progression to type I diabetes mellitus in patients with certain autoimmune diseases including autoimmune gastritis among others. It is also used as an aid in diagnosis of stiff person syndrome and certain autoimmune nervous system diseases. Clinical correlation is required. Performed By: #### 1 3926-1, ACHRAB #### [facility] CLIA [id number] [address] [place] [address] [place] Glutamate decarboxylase 65 A b Qn (S)on 04-13-2022 GLUTAMIC ACID DECARBOXYLAS AB QUALITATIVE Positive Abnormal Negative [facility] Comment on above: Order Comment: Mani dia Type: BLOOD SPECIMEN Ordering Facility: [facility] Address: [address] [place] [address] Performed By: #### 1 3926-1, ACHRAB #### [facility] CLIA [id number] [address] [place] [address] [place] HbA1c (Bld)on 04-13-2022 Average glucose Estimated from glycated hemoglobin (Bld) [Mass/Vol] 82 mg/dL Normal [facility] Comment on above: Order Comment: Mani dia Type: BLOOD SPECIMEN Ordering Facility: [facility] Address: [address] [place] [address] Result Comment: eAG: (Estimated average glucose) is a calculated value from HgbA1c and is field representative of the average blood glucose level in the last 2-3 month period. Performed By: #### 5 5454-3 #### [facility] CLIA [id number] [address] [place] [address] [place] HbA1c (Bld) [Mass fraction] 4.5 % Normal 4.3-5.6 [facility] Comment on above: Order Comment: Speci men Type: BLOOD SPECIMEN Ordering Facility: [facility] Address: [address] [place] [address] Result Comment: Amer [place] Diabetes Association guidelines indicate that patients with HgbA1c in the range 5.7-6.4% are at increased risk for development of diabetes, and intervention by lifestyle modification may be beneficial. HgbA1c greater or equal to 6.5% is considered diagnostic of diabetes. Performed By: #### 5 5454-3 #### [facility] CLIA [id number] [address] [place] [address] [place] IgA SerPl-mCncon 04-13-2022 IgA [Mass/Vol] 84 mg/dL Normal 70-400 [facility] Comment on above: Order Comment: Speci men Type: BLOOD SPECIMEN Ordering Facility: [facility] Address: [address] [place] [address] Performed By: #### 2 458-8, 2465-3, 8319 #### [facility] CLIA [id number] [address] [place] [address] [place] IgG SerPl-mCncon 04-13-2022 IgG [Mass/Vol] 2004 mg/dL High 700-1600 [facility] Comment on above: Order Comment: Speci men Type: BLOOD SPECIMEN Ordering Facility: [facility] Address: [address] [place] [address] Performed By: #### 2 458-8, 2465-3, 9 #### [facility] CLIA [id number] [address] [place] [address] [place] IgM SerPl-mCncon 04-13-2022 IgM [Mass/Vol] mg/dL Low 40-230 [facility] Comment on above: Order Comment: Speci men Type: BLOOD SPECIMEN Ordering Facility: [facility] Address: [address] [place] [address] Result Comment: Resu lt rechecked. Performed By: #### 2 458-8, 2465-3, 2469 #### [facility] CLIA [id number] [address] [place] [address] [place] LDH SerPl-cCncon 04-13-2022 LDH [Catalytic activity/Vol] 141 U/L Normal 135-214 [facility] Comment on above: Order Comment: Speci men Type: BLOOD SPECIMEN Ordering Facility: [facility] Address: [address] [place], [place] [address] Performed By: #### 2 532-0, 3024-7 #### [facility] [place] [id number] [address] [place] [address] [place] No Panel Informationon 04-13 [facility] ORGANIC ACIDS UR, QUANT W/CO NSULTon 04-13-2022 2-Hydroxyglutarate/C reatinine (U) [Molar ratio] 5.3 umol/mmolCr Normal 0.6-17.7 [facility] Comment on above: Order Comment: Speci men Type: BLOOD SPECIMEN Ordering Facility: [facility] Address: [address] [place], [place] [address] Performed By: #### C ARNPL #### [facility] [place] [id number] [address] [place] [address] [place] 2-Hydroxyisovalerate /Creatinine (U) [Molar ratio] 0.1 umol/mmolCr Normal 0.0-0.1 [facility] Comment on above: Order Comment: Speci men Type: BLOOD SPECIMEN Ordering Facility: [facility] Address: [address] [place], [place] [address] Performed By: #### C ARNPL #### [facility] [place] [id number] [address] [place] [address] [place] 0-Uqiltq-4-hydroxybu tyrate (C5-OH)/Creatinine (U) [Molar ratio] <0.6 Normal 0.0-1.3 [facility] Comment on above: Order Comment: Speci men Type: BLOOD SPECIMEN Ordering Facility: [facility] Address: [address] Performed By: #### C ARNPL #### [facility] [place] [id number] [address] [place] [address] [place] 2-Methylbutyrylglyci ne/Creatinine (U) [Molar ratio] 0.1 umol/mmolCr Normal 0.0-0.4 [facility] Comment on above: Order Comment: Speci men Type: BLOOD SPECIMEN Ordering Facility: [facility] Address: [address] Performed By: #### C ARNPL #### [facility] [place] [id number] [address] [place] [address] [place] 2-Methylcitrate/Crea tinine (U) [Molar ratio] 1.8 umol/mmolCr Normal 1.0-13.9 [facility] Comment on above: Order Comment: Speci men Type: BLOOD SPECIMEN Ordering Facility: [facility] Address: [address] Performed By: #### C ARNPL #### [facility] [place] [id number] [address] [place] [address] [place] 2-Oxoadipate/Creatin ine (U) [Molar ratio] <1.6 Normal 0.0-3.3 [facility] Comment on above: Order Comment: Speci men Type: BLOOD SPECIMEN Ordering Facility: [facility] Address: [address] Performed By: #### C ARNPL #### [facility] [place] [id number] [address] [place] [address] [place] 3-Hydroxyglutarate/C reatinine (U) [Molar ratio] 0.0 umol/mmolCr Normal 0.0-0.7 [facility] Comment on above: Order Comment: Speci men Type: BLOOD SPECIMEN Ordering Facility: [facility] Address: [address] [place], [place] [address] Performed By: #### C ARNPL #### [facility] IA [id number] [address] [place] [address] 3-Hydroxyisovalerate /Creatinine (U) [Molar ratio] 8.4 umol/mmolCr Normal 2.1-27.3 [facility] Comment on above: Order Comment: Speci men Type: BLOOD SPECIMEN Ordering Facility: [facility] Address: [address] [place] [address] Performed By: #### C ARNPL #### [facility] [place] [id number] [address] [place] [address] [place] 3-Methylcrotonylglyc ine/Creatinine (U) [Molar ratio] <0.3 Normal <0.3 [facility] Comment on above: Order Comment: Speci men Type: BLOOD SPECIMEN Ordering Facility: [facility] Address: [address] [place] [address] Performed By: #### C ARNPL #### [facility] IA [id number] [address] [place] [address] [place] 3-Methylglutaconate/ Creatinine (U) [Molar ratio] 0.2 umol/mmolCr Normal 0.0-2.0 [facility] Comment on above: Order Comment: Speci men Type: BLOOD SPECIMEN Ordering Facility: [facility] Address: [address] [place] Performed By: #### C ARNPL #### [facility] IA [id number] [address] [place] [address] [place] 3-Methylglutarate/Cr eatinine (U) [Molar ratio] 0.1 umol/mmolCr Normal 0.0-0.6 [facility] Comment on above: Order Comment: Speci men Type: BLOOD SPECIMEN Ordering Facility: [facility] Address: [address] [place] [address] Performed By: #### C ARNPL #### [facility] CLIA [id number] [address] [place] [address] [place] 4-Hydroxyphenylaceta te/Creatinine (U) [Molar ratio] 31.1 umol/mmolCr Normal 5.7-147.5 [facility] Comment on above: Order Comment: Speci men Type: BLOOD SPECIMEN Ordering Facility: [facility] Address: [address] Performed By: #### C ARNPL #### [facility] CLIA [id number] [address] [place] [address] [place] 4-Hydroxyphenyllacta te/Creatinine (U) [Molar ratio] 12.2 umol/mmolCr Normal 1.3-23.0 [facility] Comment on above: Order Comment: Speci men Type: BLOOD SPECIMEN Ordering Facility: [facility] Address: [address] [place], [place] [address] Performed By: #### C ARNPL #### [facility] CLIA [id number] [address] [place] [address] [place] 4-Hydroxyphenylpyruv ate/Creatinine (U) [Molar ratio] 0.0 umol/mmolCr Normal <=0.0 [facility] Comment on above: Order Comment: Speci men Type: BLOOD SPECIMEN Ordering Facility: [facility] Address: [address] Performed By: #### C ARNPL #### [facility] CLIA [id number] [address] [place] [address] [place] 5-Oxoproline/Creatin ine (U) [Molar ratio] 1.6 umol/mmolCr Normal 0.4-3.1 [facility] Comment on above: Order Comment: Speci men Type: BLOOD SPECIMEN Ordering Facility: [facility] Address: [address] [place], [place] [address] Performed By: #### C ARNPL #### [facility] CLIA [id number] [address] [place] [address] [place] Acetoacetate/Creatin ine (U) [Molar ratio] <0.9 High 0.0-0.5 [facility] Comment on above: Order Comment: Speci men Type: BLOOD SPECIMEN Ordering Facility: [facility] Address: [address] [place] [address] Performed By: #### C ARNPL #### [facility] CLIA [id number] [address] [place] [address] [place] Aconitate/Creatinine (U) [Molar ratio] 29.9 umol/mmolCr Normal 8.5-109.6 [facility] Comment on above: Order Comment: Speci men Type: BLOOD SPECIMEN Ordering Facility: [facility] Address: [address] [place] [address] Performed By: #### C ARNPL #### [facility] IA [id number] [address] [place] [address] [place] Adipate/Creatinine (U) [Molar ratio] 2.2 umol/mmolCr Normal 0.3-9.2 [facility] Comment on above: Order Comment: Speci men Type: BLOOD SPECIMEN Ordering Facility: [facility] Address: [address] [place], [place] [address] Performed By: #### C ARNPL #### [facility] IA [id number] [address] [place] [address] [place] Alpha hydroxybutyrate/Crea tinine (U) [Molar ratio] 1.1 umol/mmolCr Normal 0.0-2.7 [facility] Comment on above: Order Comment: Speci men Type: BLOOD SPECIMEN Ordering Facility: [facility] Address: [address] [place], [place] [address] Performed By: #### C ARNPL #### [facility] IA [id number] [address] [place] [address] [place] Alpha ketoglutarate/Creati nine (U) [Molar ratio] 3.1 umol/mmolCr Normal 0.2-42.7 [facility] Comment on above: Order Comment: Speci men Type: BLOOD SPECIMEN Ordering Facility: [facility] Address: [address] [place] [address] Performed By: #### C ARNPL #### [facility] CLIA [id number] [address] [place] [address] [place] Benzoate/Creatinine (U) [Molar ratio] <12.2 Normal 0.0-14.6 [facility] Comment on above: Order Comment: Speci men Type: BLOOD SPECIMEN Ordering Facility: [facility] Address: [address] [place] [address] Performed By: #### C ARNPL #### [facility] CLIA [id number] [address] [place] [address] [place] Beta hydroxybutyrate/Crea tinine (U) [Molar ratio] <1.6 Normal 0.1-2.6 [facility] Comment on above: Order Comment: Speci men Type: BLOOD SPECIMEN Ordering Facility: [facility] Address: [address] [place], [place] [address] Performed By: #### C ARNPL #### [facility] IA [id number] [address] [place] [address] OF [facility] Butyrylglycine/Creat inine (U) [Molar ratio] 0.0 umol/mmolCr Normal 0.0-0.7 [facility] Comment on above: Order Comment: Speci men Type: BLOOD SPECIMEN Ordering Facility: [facility] Address: [address] [place], [place] [address] Performed By: #### C ARNPL #### [facility] CLIA [id number] [address] [place] [address] [place] Creatinine (U) [Mass/Vol] 49.5 mg/dL Normal 42.2-237.9 [facility] Comment on above: Order Comment: Speci men Type: BLOOD SPECIMEN Ordering Facility: [facility] Address: [address] Performed By: #### C ARNPL #### [facility] CLIA [id number] [address] [place] [address] [place] Ethylmalonate/Creati nine (U) [Molar ratio] 3.1 umol/mmolCr Normal 0.5-6.2 [facility] Comment on above: Order Comment: Speci men Type: BLOOD SPECIMEN Ordering Facility: [facility] Address: [address] Performed By: #### C ARNPL #### [facility] CLIA [id number] [address] [place] [address] [place] Fumarate/Creatinine (U) [Molar ratio] 0.6 umol/mmolCr Normal 0.3-2.6 [facility] Comment on above: Order Comment: Speci men Type: BLOOD SPECIMEN Ordering Facility: [facility] Address: [address] Performed By: #### C ARNPL #### [facility] CLIA [id number] [address] [place] [address] [place] Glutarate/Creatinine (U) [Molar ratio] 0.2 umol/mmolCr Normal 0.0-1.4 [facility] Comment on above: Order Comment: Speci men Type: BLOOD SPECIMEN Ordering Facility: [facility] Address: [address] [place] [address] Performed By: #### C ARNPL #### [facility] CLIA [id number] [address] [place] [address] [place] Hexanoylglycine/Crea tinine (U) [Molar ratio] <0.1 Normal 0.0-0.1 [facility] Comment on above: Order Comment: Speci men Type: BLOOD SPECIMEN Ordering Facility: [facility] Address: [address] [place] [address] Performed By: #### C ARNPL #### [facility] CLIA [id number] [address] [place] [address] [place] Isobutyrylglycine/Cr eatinine (U) [Molar ratio] 0.5 umol/mmolCr Normal 0.0-1.2 [facility] Comment on above: Order Comment: Speci men Type: BLOOD SPECIMEN Ordering Facility: [facility] Address: [address] [place] [address] Performed By: #### C ARNPL #### [facility] CLIA [id number] [address] [place] [address] [place] Isocitrate/Creatinin e (U) [Molar ratio] 72.2 umol/mmolCr Normal 9.1-271.9 [facility] Comment on above: Order Comment: Speci men Type: BLOOD SPECIMEN Ordering Facility: [facility] Address: [address] [place] [address] Performed By: #### C ARNPL #### [facility] CLIA [id number] [address] [place] [address] [place] Lactate/Creatinine (U) [Molar ratio] 17.7 umol/mmolCr Normal 2.9-47.2 [facility] Comment on above: Order Comment: Speci men Type: BLOOD SPECIMEN Ordering Facility: [facility] Address: [address] [place] Performed By: #### C ARNPL #### [facility] CLIA [id number] [address] [place] [address] [place] Malate/Creatinine (U) [Molar ratio] 0.4 umol/mmolCr Normal 0.0-1.1 [facility] Comment on above: Order Comment: Speci men Type: BLOOD SPECIMEN Ordering Facility: [facility] Address: [address] [place] Performed By: #### C ARNPL #### [facility] CLIA [id number] [address] [place] [address] [place] Malonate/Creatinine (U) [Molar ratio] 0.0 umol/mmolCr Normal 0.0-0.1 [facility] Comment on above: Order Comment: Speci men Type: BLOOD SPECIMEN Ordering Facility: [facility] Address: [address] Performed By: #### C ARNPL #### [facility] CLIA [id number] [address] [place] [address] [place] Methylmalonate/Creat inine (U) [Molar ratio] <0.4 Normal 0.0-0.6 [facility] Comment on above: Order Comment: Speci men Type: BLOOD SPECIMEN Ordering Facility: [facility] Address: [address] [place] [address] Performed By: #### C ARNPL #### [facility] CLIA [id number] [address] [place] [address] [place] Methylsuccinate/Crea tinine (U) [Molar ratio] 0.1 umol/mmolCr Normal 0.0-1.4 [facility] Comment on above: Order Comment: Speci men Type: BLOOD SPECIMEN Ordering Facility: [facility] Address: [address] [place], [place] [address] Performed By: #### C ARNPL #### [facility] IA [id number] [address] [place] [address] [place] N-acetylaspartate/Cr eatinine (U) [Molar ratio] 1.0 umol/mmolCr Normal 0.1-8.9 [facility] Comment on above: Order Comment: Speci men Type: BLOOD SPECIMEN Ordering Facility: [facility] Address: [address] [place] [address] Performed By: #### C ARNPL #### [facility] IA [id number] [address] [place] N-acetyltyrosine/Cre atinine (U) [Molar ratio] 0.3 umol/mmolCr Normal 0.0-1.2 [facility] Comment on above: Order Comment: Speci men Type: BLOOD SPECIMEN Ordering Facility: [facility] Address: [address] [place] [address] Performed By: #### C ARNPL #### [facility] CLIA [id number] [address] [place] [address] [place] Oxalate/Creatinine (U) [Molar ratio] 2.7 umol/mmolCr Normal 0.7-12.4 [facility] Comment on above: Order Comment: Speci men Type: BLOOD SPECIMEN Ordering Facility: [facility] Address: [address] [place] [address] Performed By: #### C ARNPL #### [facility] CLIA [id number] [address] [place] [address] [place] Pyruvate/Creatinine (U) [Molar ratio] 0.2 umol/mmolCr Normal 0.1-2.6 [facility] Comment on above: Order Comment: Speci men Type: BLOOD SPECIMEN Ordering Facility: [facility] Address: [address] [place], [place] [address] Performed By: #### C ARNPL #### [facility] CLIA [id number] [address] [place] [address] [place] Sebacate (C8)/Creatinine (U) [Molar ratio] 0.0 umol/mmolCr Normal [facility] Comment on above: Order Comment: Speci men Type: BLOOD SPECIMEN Ordering Facility: [facility] Address: [address] [place], [place] [address] Performed By: #### C ARNPL #### [facility] CLIA [id number] [address] [place] [address] [place] Suberate/Creatinine (U) [Molar ratio] 1.1 umol/mmolCr Normal 0.0-7.4 [facility] Comment on above: Order Comment: Speci men Type: BLOOD SPECIMEN Ordering Facility: [facility] Address: [address] Performed By: #### C ARNPL #### [facility] CLIA [id number] [address] [place] Suberylglycine/Creat inine (U) [Molar ratio] 0.0 umol/mmolCr Normal <=0.0 [facility] Comment on above: Order Comment: Speci men Type: BLOOD SPECIMEN Ordering Facility: [facility] Address: [address] Performed By: #### C ARNPL #### [facility] CLIA [id number] [address] [place] [address] [place] Succinate/Creatinine (U) [Molar ratio] 6.3 umol/mmolCr Normal 0.3-27.4 [facility] Comment on above: Order Comment: Speci men Type: BLOOD SPECIMEN Ordering Facility: [facility] Address: [address] Performed By: #### C ARNPL #### [facility] CLIA [id number] [address] [place] [address] [place] Succinylacetone/Crea tinine (U) [Molar ratio] <0.4 Normal <0.4 [facility] Comment on above: Order Comment: Speci men Type: BLOOD SPECIMEN Ordering Facility: [facility] Address: [address] Performed By: #### C ARNPL #### [facility] CLIA [id number] [address] [place] [address] [place] UOA CONSULTATION Normal [facility] Comment on above: Order Comment: Speci men Type: BLOOD SPECIMEN Ordering Facility: [facility] Address: [address] Result Comment: This urine organic acid analysis shows no significant abnormalities. NOTE: The biochemical expression of urinary organic acids in the genetic organic acidurias can be dependent on the nutritional status of the subject, the underlying genetic abnormality that he/she may have, concurrent illnesses and other factors. This is also true for other disorders for which urinary organic acid analysis is sometimes a diagnostic tool such as disorders of mitochondrial oxidative phosphorylation, disorders of mitochondrial fatty acid beta-oxidation, and some nutritional deficiencies. Consequently and unless otherwise stated, a normal or non-diagnostic test result on urinary organic acid analysis does not always rule-out the possibility of the types of disorders noted above. This test was developed and its performance characteristics determined by the [facility]. It has not been cleared or approved by the US Food and Drug Administration. The FDA had determined that such clearance or approval is not necessary. Performed By: #### C ARNPL #### [facility] CLIA [id number] [address] [place] [address] [place] UOA REVIEW Reviewed by Jake Mc PhD [facility] Comment on above: Order Comment: Speci men Type: BLOOD SPECIMEN Ordering Facility: [facility] Address: [address] [place] [address] Performed By: #### C ARNPL #### [facility] CLIA [id number] [address] [place] [address] [place] Uracil/Creatinine (U) [Molar ratio] <0.4 Normal 0.0-5.1 [facility] Comment on above: Order Comment: Speci men Type: BLOOD SPECIMEN Ordering Facility: [facility] Address: [address] [place] [address] Performed By: #### C ARNPL #### [facility] CLIA [id number] [address] [place] [address] [place] PLASMA THYMIDINE DETERMINATI ONon 04-13-2022 PLASMA THYMIDINE DETERMINATION View results in Scanned Documents link when available. [facility] Comment on above: Order Comment: Speci men Type: BLOOD SPECIMEN Ordering Facility: [facility] Address: [address] [place] [address] Performed By: #### C ARNPL #### [facility] CLIA [id number] [address] [place] [address] [place] PYRUVATE+LACTATE BLon 2022 Lactate [Moles/Vol] 1.5 mmol/L Normal 0.5-2.2 [facility] Comment on above: Order Comment: Speci men Type: BLOOD SPECIMEN Ordering Facility: [facility] Address: [address] [place] [address] Result Comment: This test was developed and its performance characteristics determined by [facility]'s [facility] [place] (-[facility]). It has not been cleared or approved by the FDA. -PLAR is regulated under CLIA as qualified to perform high-complexity testing. This test is used for clinical purposes. It should not be regarded as investigational or for research. Performed By: #### C ARNPL #### [facility] IA [id number] [address] [place] [address] [place] Pyruvate (Bld) [Moles/Vol] Normal [facility] Comment on above: Order Comment: Speci men Type: BLOOD SPECIMEN Ordering Facility: [facility] Address: [address] [place] [address] Result Comment: Unab le to assay. Analytical difficulty Performed By: #### C ARNPL #### [facility] IA [id number] [address] [place] [address] [place] T4 Free SerPl-mCncon 023 Free T4 [Mass/Vol] 1.2 ng/dL Normal 0.9-1.7 [facility] Comment on above: Order Comment: Speci men Type: BLOOD SPECIMEN Ordering Facility: [facility] Address: [address] [place] [address] Performed By: #### 2 532-0, 3024-7 #### [facility] IA [id number] [address] [place] [address] [place] TSH BLDon 04-13-2022 TSH Qn 2.180 m[IU]/L 0.270 - 4.200 mIU/L [facility] TSH SerPl-aCncon 04-13-2022 TSH Qn 2.180 m[IU]/L Normal 0.270-4.[address] [facility] Comment on above: Order Comment: Mani dia Type: BLOOD SPECIMEN Ordering Facility: [facility] Address: [address] [place] [id number] Result Comment: If t he patient is , TSH reference range varies by gestational period: First Trimester (weeks 9-12): 0.180-2.990 mIU/L Second Trimester: 0.110-3.980 mIU/L Third Trimester: 0.480-4.710 mIU/L Nathan Castaneda et al. A Practical Approach for the Verifications and Determination of Site- and Trimester-Specific Reference Intervals for Thyroid Function tests in . Thyroid, 2019:29:3:412-420. Khoi Tam, et al. 2017 Guidelines of the [place] Thyroid Association for the Diagnosis and Management of Thyroid Disease during and the . Thyroid, 2017:27:3:315-389. Performed By: #### C ARNPL #### [facility] CLIA [id number] [address] [place] VOLTAGE GATED CA IGGon 04-13 P/Q-TYPE CALCIUM CHANNEL ANTIBODY 13.8 pmol/L Normal 0.0-24.5 [facility] Comment on above: Order Comment: Mani dia Type: BLOOD SPECIMEN Ordering Facility: [facility] Address: [address] [place] [address] Result Comment: INTE RPRETIVE INFORMATION: P/Q-Type Calcium Channel Antibody 0.0 to 24.5 pmol/L ............. Negative 24.6 to 45.6 pmol/L ............ Indeterminate 45.7 pmol/L or greater.......... Positive This test was developed and its performance characteristics determined by [facility]. It has not been cleared or approved by the [place] Food and Drug Administration. This test was performed in a CLIA certified laboratory and is intended for clinical purposes. Performed By: [facility] [address] [place] [address] Merchandising Specialist: Phan Beard MD, PhD Performed By: #### C ARNPL #### [facility] CLIA [id number] [address] [facility] [id number] [place], [place] [id number] [facility] VOLTAGE-GATED POTASSIUM HEARD ABon 04-13-2022 VOLTAGE-GATED POTASSIUM CHANNEL AB, SER 30 pmol/L Normal 0-31 [facility] Comment on above: Order Comment: Speci men Type: BLOOD SPECIMEN Ordering Facility: [facility] Address: [address] [place], [place] [address] Result Comment: INTE RPRETIVE INFORMATION: Voltage-Gated Potassium Channel (VGKC) Antibody, Serum Negative ....... 31 pmol/L or less Indeterminate... 32 - 87 pmol/L Positive ....... 88 pmol/L or greater Voltage-Gated Potassium Channel (VGKC) antibodies are associated with neuromuscular weakness as found in neuromyotonia (also known as Issacs syndrome) and Morvan syndrome. VGKC antibodies are also associated with paraneoplastic neurological syndromes and limbic encephalitis; however, VGKC antibody-associated limbic encephalitis may be associated with antibodies to leucine-rich, glioma-inactivated 1 protein (LGI1) or contactin-associated protein-2 (CASPR2) instead of potassium channel antigens. A substantial number of VGKC-antibody positive cases are negative for LGI1 and CASPR2 IgG autoantibodies, not all VGKC complex antigens are known. The clinical significance of this test can only be determined in conjunction with the patient's clinical history and related laboratory testing. This test was developed and its performance characteristics determined by [facility]. It has not been cleared or approved by the US Food and Drug Administration. This test was performed in a CLIA certified laboratory and is intended for clinical purposes. Performed By: [facility] [address] [place] [address] Merchandising Specialist: Phan Beard MD, PhD Performed By: #### V GKCAB #### [facility] CLIA [id number] [address] [place] [address] XR ABDOMEN 1V SUPINEon 04-13 XR ABDOMEN 1V SUPINE * * *Final Report* * * DATE OF EXAM: Apr 13 2022 11:11AM SPX [id number] - XR ABDOMEN 1V SUPINE / PROCEDURE REASON: multiple diagnoses * * * * Physician Interpretation * * * * RESULT: EXAMINATION: XR ABDOMEN 1V SUPINE CLINICAL HISTORY: constipation History of colectomy Chronic idiopathic constipation Technique: XR ABDOMEN 1V SUPINE -- NOT APPLICABLE with 2 views on 2 images Comparison: 03/15/2015 RESULT: No dilated bowel. Postsurgical changes in the left upper abdomen. No significant colonic stool burden. Lung bases are clear. Bony structures are intact. IMPRESSION: No dilated bowel. No significant colonic stool burden. Transcribed Using Voice Recognition Transcribe Date/Time: Apr 13 2022 12:11P Dictated by: MELY JARRELL MD This examination was interpreted and the report reviewed and electronically signed by: MELY JARRELL MD on Apr 13 2022 12:13PM EST [id number] Normal [facility] CNPNon 04-12-2022 CNPN Normal [facility] EMG(NEURO/NI)on 04-11-2022 [facility] Reportson 03-16-2022 Lab Reports [id number]#[id number]:127 Normal [facility] Lab Reports [id number]#[id number]:127 Normal [facility] ALDOLASE BLDon 03-10-2022 Aldolase [Catalytic activity/Vol] 3.4 mU/mL 1.5 - 8.1 U/L [facility] Aldolase SerPl-cCncon 2022 Aldolase [Catalytic activity/Vol] 3.4 mU/mL Normal 1.5-8.1 [facility] Comment on above: Order Comment: Speci men Type: BLOOD SPECIMENOrdering Facility: [facility] Address: [address] [place] [id number] Result Comment: This test was developed and its performance characteristics determined by [facility] [place] ([facility]-PL[facility]). It has not been cleared or approved by the FDA. [facility] is regulated under CLIA as qualified to perform high-complexity testing. This test is used for clinical purposes. It should not be regarded as investigational or for research. Performed By: #### 1 761-6 ####[facility] [id number] [address] OF [facility] CBC panel Auto (Bld)on 03-10 Erythrocyte distribution width (RBC) [Ratio] 11.8 % Normal 11.5-15.0 [facility] Comment on above: Order Comment: Speci men Type: BLOOD SPECIMENOrdering Facility: [facility] Address: [address] [place] [address] Performed By: #### 5 8410-2 ####[facility] [id number] [address] [place] Hematocrit (Bld) [Volume fraction] 36.0 % Normal 36.0-46.0 [facility] Comment on above: Order Comment: Speci men Type: BLOOD SPECIMENOrdering Facility: [facility] Address: [address] [place] [address] Performed By: #### 5 8410-2 ####[facility] [id number] [address] STATES [facility] Hemoglobin (Bld) [Mass/Vol] 12.6 g/dL Normal 11.5-15.5 [facility] Comment on above: Order Comment: Speci men Type: BLOOD SPECIMENOrdering Facility: [facility] Address: [address] [place] [place] [address] Performed By: #### 5 8410-2 ####[facility] [id number] [address] [place] MCH (RBC) [Entitic mass] 32.6 pg Normal 26.0-34.0 [facility] Comment on above: Order Comment: Speci men Type: BLOOD SPECIMENOrdering Facility: [facility] Address: [address] Performed By: #### 5 8410-2 ####[facility] [id number] [address] STATES [facility] MCHC (RBC) [Mass/Vol] 35.0 g/dL Normal 30.5-36.0 [facility] Comment on above: Order Comment: Speci men Type: BLOOD SPECIMENOrdering Facility: [facility] Address: [address] Performed By: #### 5 8410-2 ####[facility] LABIA [id number] [place] [address] [place] MCV (RBC) [Entitic vol] 93.3 fL Normal 80.0-100.0 [facility] Comment on above: Order Comment: Speci men Type: BLOOD SPECIMENOrdering Facility: [facility] Address: [address] Performed By: #### 5 8410-2 ####[facility] LABIA [id number] [place] [address] [place] Nucleated RBC (Bld) [#/Vol] 10*3/uL Normal <0.01 [facility] Comment on above: Order Comment: Speci men Type: BLOOD SPECIMENOrdering Facility: [facility] Address: [address] Performed By: #### 5 8410-2 ####[facility] LABIA [id number] [place] [address] [place] Platelet mean volume (Bld) [Entitic vol] 9.4 fL Normal 9.0-12.7 [facility] Comment on above: Order Comment: Speci men Type: BLOOD SPECIMENOrdering Facility: [facility] Address: [address] Performed By: #### 5 8410-2 ####[facility] LABIA [id number] [place] [address] [place] Platelets (Bld) [#/Vol] 259 10*3/uL Normal 150-400 [facility] Comment on above: Order Comment: Speci men Type: BLOOD SPECIMENOrdering Facility: [facility] Address: [address] [place] [address] Performed By: #### 5 8410-2 ####[facility] LABIA [id number] [place] [address] [place] RBC (Bld) [#/Vol] 3.86 10*6/uL Low 3.90-5.20 [facility] Comment on above: Order Comment: Speci men Type: BLOOD SPECIMENOrdering Facility: [facility] Address: [address] [place] [address] Performed By: #### 5 8410-2 ####[facility] LABIA [id number] [place] [address] [place] WBC (Bld) [#/Vol] 6.44 10*3/uL Normal 3.70-11.00 [facility] Comment on above: Order Comment: Speci men Type: BLOOD SPECIMENOrdering Facility: [facility] Address: [address] [place] [address] Performed By: #### 5 8410-2 ####[facility] LABIA [id number] [place] [address] [place] CK SerPl-cCncon 03-10-2022 CK [Catalytic activity/Vol] 57 U/L Normal 42-196 [facility] Comment on above: Order Comment: Speci men Type: BLOOD SPECIMENOrdering Facility: [facility] Address: [address] [place] [address] Performed By: #### 2 157-6, 37703-4, 2532-0 ####[facility] LABCLIA [id number] [place] [address] [place] CNOVon 03-10-2022 CNOV Normal [facility] Comprehensive metabolic 2000 panelon 03-10-2022 Albumin [Mass/Vol] 4.2 g/dL Normal 3.9-4.9 [facility] Comment on above: Order Comment: Speci men Type: BLOOD SPECIMENOrdering Facility: [facility] Address: [address] [place] [address] Performed By: #### 2 157-6, 74098-7, 2532-0 ####[facility] LABCLIA [id number] [place] [address] [place] ALP [Catalytic activity/Vol] 84 U/L Normal 34-123 [facility] Comment on above: Order Comment: Speci men Type: BLOOD SPECIMENOrdering Facility: [facility] Address: [address] [place] [address] Performed By: #### 2 157-6, 38803-8, 2-0 ####[facility] LABCLIA [id number] [address] [place] ALT [Catalytic activity/Vol] 37 U/L Normal 7-38 [facility] Comment on above: Order Comment: Speci men Type: BLOOD SPECIMENOrdering Facility: [facility] Address: [address] [place], [place] [address] Performed By: #### 2 157-6, 15180-8, 2532-0 ####[facility] LABCLIA [id number] [place] [address] [place] Anion gap [Moles/Vol] 11 mmol/L Normal 9-18 [facility] Comment on above: Order Comment: Speci men Type: BLOOD SPECIMENOrdering Facility: [facility] Address: [address] [place], [place] [address] Performed By: #### 2 157-6, 42536-5, 2532-0 ####[facility] LABCLIA [id number] [place] [id number] [place] AST [Catalytic activity/Vol] 36 U/L High 13-35 [facility] Comment on above: Order Comment: Speci men Type: BLOOD SPECIMENOrdering Facility: [facility] Address: [address] [place] [address] Performed By: #### 2 157-6, 75759-0, 2532-0 ####[facility] LABCLIA [id number] [place] [address] [place] Bilirubin [Mass/Vol] 0.5 mg/dL Normal 0.2-1.3 [facility] Comment on above: Order Comment: Speci men Type: BLOOD SPECIMENOrdering Facility: [facility] Address: [address] [place] [address] Performed By: #### 2 157-6, 96459-9, 2532-0 ####[facility] LABCLIA [id number] [place] [address] [place] Calcium [Mass/Vol] 9.3 mg/dL Normal 8.5-10.2 [facility] Comment on above: Order Comment: Speci men Type: BLOOD SPECIMENOrdering Facility: [facility] Address: [address] [place], [place] [address] Performed By: #### 2 157-6, 43699-0, 2532-0 ####[facility] LABCLIA [id number] [place] [address] [place] Chloride [Moles/Vol] 104 mmol/L Normal 97-105 [facility] Comment on above: Order Comment: Speci men Type: BLOOD SPECIMENOrdering Facility: [facility] Address: [address] [place], [place] [address] Performed By: #### 2 157-6, 80295-5, 2532-0 ####[facility] LABCLIA [id number] [place] [id number] [place] CO2 [Moles/Vol] 23 mmol/L Normal 22-30 [facility] Comment on above: Order Comment: Speci men Type: BLOOD SPECIMENOrdering Facility: [facility] Address: [address] [place] [address] Performed By: #### 2 157-6, 26738-8, 2-0 ####[facility] LABCLIA [id number] [place] [address] [place] Creatinine [Mass/Vol] 0.93 mg/dL Normal 0.58-0.96 [facility] Comment on above: Order Comment: Speci men Type: BLOOD SPECIMENOrdering Facility: [facility] Address: [address] [place] [address] Performed By: #### 2 157-6, 30374-3, 2531-0 ####[facility] LABCLIA [id number] [place] [address] [place] [facility] ESTIMATED GLOMERULAR FILTRATION RATE 82 mL/min/1.73m??? Normal >=60 [facility] Comment on above: Order Comment: Speci men Type: BLOOD SPECIMENOrdering Facility: [facility] Address: [address] [place] [address] Result Comment: Breana mated Glomerular Filtration Rate (eGFR) is calculated using the 2020 CKD-EPI creatinine equation. This equation utilizes serum creatinine, sex, and age as parameters. The creatinine assay has traceable calibration to isotope dilution-mass spectrometry. Refer to KDIGO guidelines for clinical interpretation. In patients with unstable renal function, e.g. those with acute kidney injury, the eGFR may not accurately reflect actual GFR. Performed By: #### 2 157-6, 37888-7, 2531-0 ####[facility] LABCLIA [id number] [place] [address] [place] Glucose [Mass/Vol] 95 mg/dL Normal 74-99 [facility] Comment on above: Order Comment: Speci men Type: BLOOD SPECIMENOrdering Facility: [facility] Address: [address] [place] [address] Result Comment: The [place] Diabetes Association (ADA) provides guidance for cutoff values for fasting glucose and random glucose. The ADA defines fasting as no caloric intake for at least 8 hours. Fasting plasma glucose results between 100 to 125 mg/dL indicate increased risk for diabetes (prediabetes).Fasting plasma glucose results greater than or equal to 126 mg/dL meet the criteria for diagnosis of diabetes. In the absence of unequivocal hyperglycemia, results should be confirmed by repeat testing. In a patient with classic symptoms of hyperglycemia or hyperglycemic crisis, random plasma glucose results greater than or equal to 200 mg/dL meet the criteria for diagnosis of diabetes.Reference: Standards of Medical Care in Diabetes 2016, Canadian Diabetes Association. Diabetes Care. 2016.39(Suppl 1). Performed By: #### 2 157-6, 59848-7, 2531-0 ####[facility] LABCLIA [id number] [place] [address] [place] Potassium [Moles/Vol] 3.9 mmol/L Normal 3.7-5.1 [facility] Comment on above: Order Comment: Speci men Type: BLOOD SPECIMENOrdering Facility: [facility] Address: [address] [place] [address] Performed By: #### 2 157-6, 43820-5, 2531-0 ####[facility] LABIA [id number] [place] [address] [place] Protein [Mass/Vol] 7.1 g/dL Normal 6.3-8.0 [facility] Comment on above: Order Comment: Speci men Type: BLOOD SPECIMENOrdering Facility: [facility] Address: [address] [place] [id number] Performed By: #### 2 157-6, 49607-9, 2531-0 ####[facility] LABIA [id number] [place] [address] [place] Sodium [Moles/Vol] 138 mmol/L Normal 136-144 [facility] Comment on above: Order Comment: Speci men Type: BLOOD SPECIMENOrdering Facility: [facility] Address: [address] [place] [address] Performed By: #### 2 157-6, 11496-9, 2532-0 ####[facility] LABCLIA [id number] [place] [address] [place] Urea nitrogen [Mass/Vol] 20 mg/dL Normal 7-21 [facility] Comment on above: Order Comment: Speci men Type: BLOOD SPECIMENOrdering Facility: [facility] Address: [address] [place] [address] Performed By: #### 2 157-6, 26884-4, 2532-0 ####[facility] LABCLIA [id number] [place] [address] [place] LDH SerPl-cCncon 03-10-2022 LDH [Catalytic activity/Vol] 162 U/L Normal 135-214 [facility] Comment on above: Order Comment: Speci men Type: BLOOD SPECIMENOrdering Facility: [facility] Address: [address] [place] [address] Performed By: #### 2 157-6, 79365-3, 2532-0 ####[facility] LABIA [id number] [address] [place] MUSK ANTIBODY TESTon 023 MUSK ANTIBODY 0.00 nmol/L Normal 0.00-0.02 [facility] Comment on above: Order Comment: Speci men Type: BLOOD SPECIMENOrdering Facility: [facility] Address: [address] [place] [address] Result Comment: ---- ADDITIONAL INFORMATION This test was developed using an analyte specific reagent.Its performance characteristics were determined by [facility] in a manner consistent with CLIA requirements. Thistest has not been cleared or approved by the U.S. Food andDrug Administration.Test Performed by:[address] [id number] Director: Soy Vela M.D. Ph.D.; CLIA# [id number] Performed By: #### M ####[facility] LABCLIA [id number] [place] [address] CBC W Auto Differential pane l (Bld)on 03-08-2022 Basophils (Bld) [#/Vol] <0.11 k/uL [facility] Basophils/100 WBC (Bld) 0.4 % [facility] Differential cell count method Nom (Bld) Auto [facility] Eosinophils (Bld) [#/Vol] 0.11 10*3/uL <0.46 k/uL [facility] Eosinophils/100 WBC (Bld) 2.2 % [facility] Erythrocyte distribution width (RBC) [Ratio] 11.9 % 11.5 - 15.0 % [facility] Hematocrit (Bld) [Volume fraction] 37.9 % 36.0 - 46.0 % [facility] Hemoglobin (Bld) [Mass/Vol] 13.0 g/dL 11.5 - 15.5 g/dL [facility] Immature granulocytes (Bld) [#/Vol] <0.10 k/uL [facility] Immature granulocytes/100 WBC (Bld) 0.2 % [facility] Lymphocytes (Bld) [#/Vol] 1.88 10*3/uL 1.00 - 4.00 k/uL [facility] Lymphocytes/100 WBC (Bld) 37.8 % [facility] MCH (RBC) [Entitic mass] 31.8 pg 26.0 - 34.0 pg [facility] MCHC (RBC) [Mass/Vol] 34.3 g/dL 30.5 - 36.0 g/dL [facility] MCV (RBC) [Entitic vol] 92.7 fL 80.0 - 100.0 [facility]L [facility] Monocytes (Bld) [#/Vol] 0.39 10*3/uL <0.87 k/uL [facility] Monocytes/100 WBC (Bld) 7.8 % [facility] Neutrophils (Bld) [#/Vol] 2.56 10*3/uL 1.45 - 7.50 k/uL [facility] Neutrophils/100 WBC (Bld) 51.6 % [facility] Nucleated RBC (Bld) [#/Vol] <0.01 k/uL [facility] Nucleated RBC/100 WBC (Bld) [Ratio] 0.0 /100 WBC [facility] Platelet mean volume (Bld) [Entitic vol] 9.6 fL 9.0 - 12.7 fL [facility] Platelets (Bld) [#/Vol] 236 10*3/uL 150 - 400 k/uL [facility] RBC (Bld) [#/Vol] 4.09 10*6/uL 3.90 - 5.20 m/uL [facility] WBC (Bld) [#/Vol] 4.97 10*3/uL 3.70 - 11.00 k/uL [facility] CK CREATINE KINASEon 023 CK [Catalytic activity/Vol] 66 U/L 42 - 196 U/L [facility] Comprehensive metabolic 2000 panelon 03-08-2022 Albumin [Mass/Vol] 4.4 g/dL 3.9 - 4.9 g/dL [facility] ALP [Catalytic activity/Vol] 78 U/L 34 - 123 U/L [facility] ALT [Catalytic activity/Vol] 67 U/L High 7 - 38 U/L [facility] Anion gap [Moles/Vol] 11 mmol/L 9 - 18 mmol/L [facility] AST [Catalytic activity/Vol] 86 U/L High 13 - 35 U/L [facility] Bilirubin [Mass/Vol] 0.4 mg/dL 0.2 - 1 .3 mg/dL [facility] Calcium [Mass/Vol] 9.5 mg/dL 8.5 - 10. 2 mg/dL [facility] Chloride [Moles/Vol] 103 mmol/L 97 - 10 5 mmol/L [facility] CO2 [Moles/Vol] 22 mmol/L 22 - 30 mmol/L [facility] Creatinine [Mass/Vol] 0.87 mg/dL 0.58 - 0.96 mg/dL [facility] Estimated Glomerular Filtration Rate 89 mL/min/1.73m >=60 mL/min/1.7 3m [facility] Glucose [Mass/Vol] 102 mg/dL High 74 - 99 mg/dL [facility] Potassium [Moles/Vol] 4.1 mmol/L 3.7 - 5.1 mmol/L [facility] Protein [Mass/Vol] 7.8 g/dL 6.3 - 8.0 g/dL [facility] Sodium [Moles/Vol] 136 mmol/L 136 - 144 mmol/L [facility] Urea nitrogen [Mass/Vol] 14 mg/dL 7 - 21 mg/dL [facility] LD LACTATE DEHYDROon 023 LDH [Catalytic activity/Vol] 208 U/L 135 - 214 U/L [facility] RETIC COUNTon 03-08-2022 Reticulocytes (Bld) [#/Vol] 0.06475 10*3/uL 0.018 - 0.100 M/uL [facility] Reticulocytes (Bld) [#/Vol]o n 03-08-2022 Reticulocytes/100 RBC (Bld) 2.2 % High 0.4 - 2.0 % [facility] FERRITIN BLDon 02-18-2022 Ferritin [Mass/Vol] 248.0 ng/mL High 14.7 - 205.1 ng/mL [facility] Iron and Iron binding capaci ty panelon 02-18-2022 Iron [Mass/Vol] 96 ug/dL 41 - 186 ug/dL [facility] Iron binding capacity [Mass/Vol] 358 ug/dL 232 - 386 ug/dL [facility] Iron/TIBC [Molar ratio] 26.8 % 15.0 - 57.0 % [facility] CBC W Auto Differential pane l (Bld)on 02-17-2022 Basophils (Bld) [#/Vol] 0.03 10*3/uL <0.11 k/uL [facility] Basophils/100 WBC (Bld) 0.5 % [facility] Differential cell count method Nom (Bld) Auto [facility] Eosinophils (Bld) [#/Vol] 0.09 10*3/uL <0.46 k/uL [facility] Eosinophils/100 WBC (Bld) 1.6 % [facility] Erythrocyte distribution width (RBC) [Ratio] 11.8 % 11.5 - 15.0 % [facility] Hematocrit (Bld) [Volume fraction] 38.0 % 36.0 - 46.0 % [facility] Hemoglobin (Bld) [Mass/Vol] 13.0 g/dL 11.5 - 15.5 g/dL [facility] Immature granulocytes (Bld) [#/Vol] <0.10 k/uL [facility] Immature granulocytes/100 WBC (Bld) 0.4 % [facility] Lymphocytes (Bld) [#/Vol] 1.78 10*3/uL 1.00 - 4.00 k/uL [facility] Lymphocytes/100 WBC (Bld) 32.1 % [facility] MCH (RBC) [Entitic mass] 32.4 pg 26.0 - 34.0 pg [facility] MCHC (RBC) [Mass/Vol] 34.2 g/dL 30.5 - 36.0 g/dL [facility] MCV (RBC) [Entitic vol] 94.8 fL 80.0 - 100.0 fL [facility] Monocytes (Bld) [#/Vol] 0.35 10*3/uL <0.87 k/uL [facility] Monocytes/100 WBC (Bld) 6.3 % [facility] Neutrophils (Bld) [#/Vol] 3.28 10*3/uL 1.45 - 7.50 k/uL [facility] Neutrophils/100 WBC (Bld) 59.1 % [facility] Nucleated RBC (Bld) [#/Vol] <0.01 k/uL [facility] Nucleated RBC/100 WBC (Bld) [Ratio] 0.0 /100 WBC [facility] Platelet mean volume (Bld) [Entitic vol] 9.6 fL 9.0 - 12.7 fL [facility] Platelets (Bld) [#/Vol] 294 10*3/uL 150 - 400 k/uL [facility] RBC (Bld) [#/Vol] 4.01 10*6/uL 3.90 - 5.20 m/uL [facility] WBC (Bld) [#/Vol] 5.55 10*3/uL 3.70 - 11.00 k/uL [facility] Comprehensive metabolic 2000 panelon 02-17-2022 Albumin [Mass/Vol] 4.8 g/dL 3.9 - 4.9 g/dL [facility] ALP [Catalytic activity/Vol] 128 U/L High 34 - 123 U/L [facility] ALT [Catalytic activity/Vol] 26 U/L 7 - 38 U/L [facility] Anion gap [Moles/Vol] 9 mmol/L 9 - 18 mmol/L [facility] AST [Catalytic activity/Vol] 34 U/L 13 - 35 U/L [facility] Bilirubin [Mass/Vol] 0.4 mg/dL 0.2 - 1 .3 mg/dL [facility] Calcium [Mass/Vol] 10.3 mg/dL High 8.5 - 10. 2 mg/dL [facility] Chloride [Moles/Vol] 100 mmol/L 97 - 10 5 mmol/L [facility] CO2 [Moles/Vol] 27 mmol/L 22 - 30 mmol/L [facility] Creatinine [Mass/Vol] 0.86 mg/dL 0.58 - 0.96 mg/dL [facility] Estimated Glomerular Filtration Rate 90 mL/min/1.73m >=60 mL/min/1.7 3m [facility] Glucose [Mass/Vol] 87 mg/dL 74 - 99 mg/dL [facility] Potassium [Moles/Vol] 3.9 mmol/L 3.7 - 5.1 mmol/L [facility] Protein [Mass/Vol] 7.9 g/dL 6.3 - 8.0 g/dL [facility] Sodium [Moles/Vol] 136 mmol/L 136 - 144 mmol/L [facility] Urea nitrogen [Mass/Vol] 16 mg/dL 7 - 21 mg/dL [facility] LD LACTATE DEHYDROon 022 LDH [Catalytic activity/Vol] 182 U/L 135 - 214 U/L [facility] RETIC COUNTon 02-17-2022 Reticulocytes (Bld) [#/Vol] 0.30224 10*3/uL 0.018 - 0.100 M/uL [facility] Reticulocytes (Bld) [#/Vol]o n 02-17-2022 Reticulocytes/100 RBC (Bld) 1.4 % 0.4 - 2.0 % [facility] ANES POSTPROC EVALon 022 ANES POSTPROC EVAL HNO ID: [id number] Author: Js Marks MD Service: Anesthesiology Author Type: Anesthesiologist Type: Anesthesia Postprocedure Evaluation Filed: 01/31/2022 3:44 PM Note Text: POST ANESTHESIA EVALUATION NOTE : 1985 Procedure Summary Date: 01/31/22 Room / Location: Procedures Anesthesia Start: 1431 Anesthesia Stop: 1455 Procedure: EGD DIAGNOSTIC Diagnosis: Scheduled Providers: Arsh Hernandez MD; Sharon Bella RN; Js Marks MD; Royce Hauser APRN.HAND SPRAYER Responsible Provider: Js Marks MD Anesthesia Type: general ASA Status: 3 Anesthesia Type: general Airway Type: ETT Last Vitals Vitals Value Taken Time BP 119/77 01/31/22 1530 Temp 36.3 ?C (97.4 ?F) 01/31/22 1453 Pulse 89 01/31/22 1530 Resp 12 01/31/22 1532 SpO2 100 % 01/31/22 1532 Vitals shown include unvalidated device data. Post Anesthesia Patient Status Patient Evaluation: PACU. PACU/ICU Patient Condition: stable. Anticipated Disposition: inpatient floor planned admission. Neurological Status: aware and responsive. Pulmonary Status: breathing comfortably on room air Airway Control: returned to baseline unsupported. Cardiovascular Status: stable. Pain Management: clinically adequate - multimodal analgesia pain management approach Postoperative Hydration: acceptable. Intraoperative Events: no significant anesthesia events Recommendation: continue current plan of care and further care per PACU/ICU/floor team. Anesthesia Observations No Documentation SIGNATURE: Js Marks MD PATIENT NAME: Ben Barr DATE: January 31, 2022 TIME: 3:43 PM CSN: [id number] [facility] ANES PRE-OPon 01-31-2022 ANES PRE-OP HNO ID: [id number] Author: Js Marks MD Service: Anesthesiology Author Type: Anesthesiologist Type: Anesthesia Preprocedure Evaluation Filed: 01/31/2022 1:57 PM Note Text: ANESTHESIOLOGY DAY OF SURGERY NOTE : 1985 Procedure Information Date/Time: 01/31/22 1330 Scheduled providers: Arsh Hernandez MD; Sharon Bella RN; Js Marks MD; Royce Hauser APRN.HAND SPRAYER Procedure: EGD DIAGNOSTIC Location: Procedures Estimated body mass index is 25.03 kg/m? as calculated from the following: Height as of this encounter: 154.9 cm (5' 1 ). Weight as of this encounter: 60.1 kg (132 lb 7.9 oz). Most recent hematocrit and potassium results: Hematocrit 35.4 01/31/2022 Potassium 3.8 01/31/2022 Relevant Problems CARDIO (+) Liver infarct (+) Portal vein thrombosis ENDO (+) Hypothyroidism -RENAL (+) Liver infarct (+) Stage 2 chronic kidney disease NEURO-PSYCH (+) H/O: pituitary tumor (+) Recurrent convulsions (HCC) Gastrointestinal (+) Intussusception (HCC) (+) Nausea AND vomiting (persistent) Allergy/Immunology (+) Common variable agammaglobulinemia (HCC) Other (+) Syncope and collapse (+) Transaminitis I - PHYSICAL EVALUATION AIRWAY Patient intubated: No. Tracheostomy tube not present Mallampati: II. TM distance: >3 FB. Neck ROM: full ROM without neurological symptoms. Mouth opening: adequate. Short neck: no. Thick neck: no Souza present: no DENTAL Dental findings: teeth intact. Additional exam findings: no II - ANESTHESIA PLAN ASA Score: 3 Anesthetic Plan: general Airway type: ETT NPO Status: adequate Anesthetic plan additional comments: GETT due to persistent nausea and vomiting and known gastric bezoar. . Beta Sil Monitoring Plan Monitoring plan: Standard ASA. Post Procedure Analgesic Plan Postoperative analgesic plan: parenteral or oral opioids and multimodal analgesia. Informed Consent Anesthetic risks, benefits, alternatives, personnel and consent discussed: yes. Patient / Responsible Constitution Party agrees to proceed: yes Patient / Surrogate agrees to blood products: yes DNR status not reviewed with patient and/or family prior to surgery. Significant changes in the patient condition since the History and Physical, not otherwise documented in primary service progress note: no. Potential Anesthesia issues that may suggest increased risk of complications or contraindication to planned procedure: none. Vitals Value Taken Time BP 132/92 01/31/22 1302 Pulse 73 01/31/22 1302 Resp 16 01/31/22 1302 Temp 36.2 ?C (97.1 ?F) 01/31/22 1302 SpO2 100 % 01/31/22 1302 Facility-Administered Medications as of 01/31/2022 Medication Dose Route Frequency - [APR Hold due to Transfer] FLUoxetine 20 mg cap(s) (PROzac) 20 mg ORAL DAILY - [APR Hold due to Transfer] LORazepam 0.5 mg tab(s) (ATIVAN) 0.5 mg ORAL AT BEDTIME PRN - [APR Hold due to Transfer] morphine 1 mg injection 1 mg INTRAVENOUS q 3 H PRN - [APR Hold due to Transfer] HYDROcodone 5 mg - acetaminophen 325 mg tablet (NORCO) 1-2 tablet ORAL q 4 H PRN - [COMPLETED] potassium chloride 40 mEq oral powder (KLOR-CON) 40 mEq ORAL ONCE - [COMPLETED] potassium chloride iv piggyback 20 mEq/100 mL 20 mEq INTRAVENOUS q 1 H - [MAR Hold due to Transfer] pantoprazole DR 40 mg tab(s) (PROTONIX) 40 mg ORAL DAILY (6 AM) - [COMPLETED] LORazepam 0.5 mg tab(s) (ATIVAN) 0.5 mg ORAL ONCE - [MAR Hold due to Transfer] OXcarbazepine 150 mg tab(s) (TRILEPTAL) 150 mg ORAL BID - [MAR Hold due to Transfer] fluconazole 100 mg tab(s) (DIFLUCAN) 100 mg ORAL DAILY - [MAR Hold due to Transfer] propranolol ER 60 mg cap(s) (INDERAL LA) 60 mg ORAL DAILY - [MAR Hold due to Transfer] enoxaparin 40 mg injection (LOVENOX) 40 mg SUBCUTANEOUS q 24 HR - [MAR Hold due to Transfer] NaCl 0.9% iv flush bag 20 mL INTRAVENOUS PRN - [MAR Hold due to Transfer] sodium chloride 0.9 % (flush) 3-5 mL (BD POSIFLUSH) 3-5 mL INTRAVENOUS q 12 H - [COMPLETED] morphine 4 mg injection 4 mg INTRAVENOUS ONCE - [MAR Hold due to Transfer] busPIRone 30 mg tab(s) (BUSPAR) 30 mg ORAL BID - [MAR Hold due to Transfer] iv contrast (radiology procedure) INTRAVENOUS DIRECTED PRN And - [] enteric contrast (radiology procedure) ORAL DIRECTED PRN - [] iv contrast (radiology procedure) INTRAVENOUS DIRECTED PRN - [COMPLETED] NaCl 0.9% 500 mL iv bolus 500 mL INTRAVENOUS ONCE - [COMPLETED] metoclopramide HCl 5 mg injection (REGLAN) 5 mg INTRAVENOUS ONCE - [COMPLETED] morphine 4 mg injection 4 mg INTRAVENOUS ONCE - [COMPLETED] oxyCODONE-acetaminophen 5-325 mg 1 tablet (PERCOCET) 1 tablet ORAL ONCE - [MAR Hold due to Transfer] metoclopramide HCl 5 mg injection (REGLAN) 5 mg INTRAVENOUS q 6 H PRN - [MAR Hold due to Transfer] ondansetron (PF) 4 mg injection (ZOFRAN) 4 mg INTRAVENOUS q 6 H PRN Outpatient Medications as of 01/31/2022 Medication Sig - Cholecalciferol, Zakia (more content not included)... Normal [facility] CBC panel Auto (Bld)on 01-31 Erythrocyte distribution width (RBC) [Ratio] 13.0 % Normal 11.5-15.0 [facility] Comment on above: Order Comment: Speci men Type: BLOOD SPECIMENOrdering Facility: [facility] Address: [address] [place] [address] Performed By: #### 5 8410-2 ####[facility] LABORATORYCLIA [id number] [address] [facility] Hematocrit (Bld) [Volume fraction] 35.4 % Low 36.0-46.0 [facility] Comment on above: Order Comment: Speci men Type: BLOOD SPECIMENOrdering Facility: [facility] Address: [address] [place] [address] Performed By: #### 5 8410-2 ####[facility] [id number] [address] [place] Hemoglobin (Bld) [Mass/Vol] 11.6 g/dL Normal 11.5-15.5 [facility] Comment on above: Order Comment: Speci men Type: BLOOD SPECIMENOrdering Facility: [facility] Address: [address] [place] [address] Performed By: #### 5 8410-2 ####[facility] LABORATORYIA [id number] [place] [id number] [place] MCH (RBC) [Entitic mass] 31.9 pg Normal 26.0-34.0 [facility] Comment on above: Order Comment: Speci men Type: BLOOD SPECIMENOrdering Facility: [facility] Address: [address] [place] [address] Performed By: #### 5 8410-2 ####[facility] LABORATORYIA [id number] [place] [address] [place] MCHC (RBC) [Mass/Vol] 32.8 g/dL Normal 30.5-36.0 [facility] Comment on above: Order Comment: Speci men Type: BLOOD SPECIMENOrdering Facility: [facility] Address: [address] Performed By: #### 5 8410-2 ####[facility] LABORATORYIA [id number] [place] [address] [facility] [place] MCV (RBC) [Entitic vol] 97.3 fL Normal 80.0-100.0 [facility] Comment on above: Order Comment: Speci men Type: BLOOD SPECIMENOrdering Facility: [facility] Address: [address] Performed By: #### 5 8410-2 ####[facility] [id number] [place] [address] [place] Nucleated RBC (Bld) [#/Vol] 10*3/uL Normal <0.01 [facility] Comment on above: Order Comment: Speci men Type: BLOOD SPECIMENOrdering Facility: [facility] Address: [address] Performed By: #### 5 8410-2 ####[facility] [id number] [place] [address] [place] Platelet mean volume (Bld) [Entitic vol] 10.0 fL Normal 9.0-12.7 [facility] Comment on above: Order Comment: Speci men Type: BLOOD SPECIMENOrdering Facility: [facility] Address: [address] Performed By: #### 5 8410-2 ####[facility] LABORATORYIA [id number] [place] [id number] [place] Platelets (Bld) [#/Vol] 126 10*3/uL Low 150-400 [facility] Comment on above: Order Comment: Speci men Type: BLOOD SPECIMENOrdering Facility: [facility] Address: [address] Performed By: #### 5 8410-2 ####[facility] LABORATORYCLIA [id number] [place] [address] [place] RBC (Bld) [#/Vol] 3.64 10*6/uL Low 3.90-5.20 [facility] Comment on above: Order Comment: Poloemma dia Type: BLOOD SPECIMENOrdering Facility: [facility] Address: [address] [place] [address] Performed By: #### 5 8410-2 ####[facility] LABORATORYIA [id number] [place] [id number] [facility] WBC (Bld) [#/Vol] 3.50 10*3/uL Low 3.70-11.00 [facility] Comment on above: Order Comment: Specemma ifeoma Type: BLOOD SPECIMENOrdering Facility: [facility] Address: [address] [place] [address] Performed By: #### 5 8410-2 ####[facility] [id number] [place] [id number] [facility] CNDSon 01-31-2022 CNDS HNO ID: [id number] Author: Radha Cooley MD Service: Hospital Medicine Author Type: Physician Type: Discharge Summary Filed: 01/31/2022 4:59 PM Note Text: DISCHARGE SUMMARY PATIENT NAME: Ben Barr ADMISSION DATE: 01/26/2022 DISCHARGE DATE: 01/31/2022 ATTENDING PHYSICIAN: Radha Cooley MD Code Status: Full Code PCP: Lizy Soria DO Highest Readmission Risk Score: 22 The 30 day readmissions risk score is derived from an internally validated risk model which evaluates patient level characteristics, utilization history, medication orders and lab results up until the day of discharge. Patients with a score of 40 or above are considered highest risk for readmission. Specific patient level drivers will be listed at the bottom of the summary. TRANSITIONS OF CARE CRITICAL ISSUES: GARCIA MEDICATION CHANGES: N/A LAB MONITORING NEEDED: Not applicable IMAGING FOLLOW-UP: Not applicable LABS AND PROCEDURES PENDING AT DISCHARGE: Test Results Not Yet Available from This Hospitalization: Please Review at Your Follow Up Appointment Order Current Status HFE (HEMOCHROMATOSIS) In process SURGICAL PATHOLOGY In process No pending results. FOLLOW UP: See follow up appointment listed below. REASON FOR HOSPITALIZATION: Abdominal pain PRINCIPAL DIAGNOSIS: Gastroparesis SECONDARY DIAGNOSIS: Principal Problem: Right upper quadrant abdominal pain POA: Yes Active Problems: Abdominal pain, generalized POA: Yes Anxiety POA: Yes Malnutrition of mild degree (HCC) POA: Yes Common variable agammaglobulinemia (HCC) POA: Yes Nausea AND vomiting POA: Yes Transaminitis POA: Yes Intussusception (HCC) POA: Yes Nicotine use disorder, F17.2 POA: Unknown POTS (postural orthostatic tachycardia syndrome) POA: Unknown Resolved Problems: * No resolved hospital problems. * HOSPITAL COURSE: This is a 36 year old female who presents with upper abdominal pain, nausea, vomiting for last 2-3 weeks. PMH significant for CVID, CKD stage II, seizures, hypothyroidism, depression, total colectomy in 2016 with ileoanal anastomosis in 2017. She was sent by her oncologist to the ED for the nausea, vomiting, abdominal pain. She was noted to have elevated liver enzymes and testing positive for Hepatitis B. Patient states that her nausea and abdominal pain are chronic but have worsened over the last 2 weeks. She has been unable to keep anything solid down. She states she was told she has a bezoar and was planned on getting an EGD on 02/01/2022. She has been vomiting almost everyday, nonbilious, non bloody, states the zofran she has at home is not helping. She also states that her bowel movements have changed, usually she has loose stools everyday but currently she is having small mucousy stools and feeling like she is not emptying completely. No blood in the stools. Her abdominal pain is generalized but worse in the upper abdomen. She denies fever but does have chills and night sweats CMP: Na 135, ALP 205, AST 334, ALT 182, T bili 0.8TSH 4.4 CBC unremarkableUA unremarkable- Imaging:- RUQ USHepatic steatosis. No cholelithiasis or biliary ductal dilatation. CT abd/pelvis1. No acute findings are identified. . Nonobstructive short segment intussusception involving small bowel in the left abdomen which can be seen as a transient finding in adults. 3. Postsurgical changes. Received 4mg morphine, 500cc bolus, percocet 5, reglan 5mg in ED Admitted for observation. Pt was evaluated by general surgery who did not find indication for surgical intervention specially with her having bowel movement. Pt was found to have leukopenia and thrombocytopenia. Evaluated by hematology who recommended follow up with wet finisher as OP .She was seen by GI . EGD was done Z-line irregular, 40 cm from the incisors.- Normal esophagus. - Normal stomach. - Normal examined duodenum. Biopsied. For transaminases elevation, lab work including viral and autoimmune studies: CHRIS (+), SMA (-), iron studies 214/<231/>92.6/ferritin 589-> HFE in process, Alpha 1 (-) ,CMV (-), EBV in process, mitochondrial->in process ; ethyl glucuronide negative. Rest of labs are pending. Gastric emptying study compatible with gastroparesis. Pt was found safe to be discharged home with follow up with dysmotility clinic , GI and hematology OPERATIONS/PROCEDURE DURING THIS HOSPITALIZATION: * No surgery found * N/A CONSULTS DURING HOSPITALIZATION: Treatment Team: Attending Provider: Rahda Cooley MD Consulting: Arsh Hernandez MD Primary Service: Nubia Martínez PA-C Orders Placed This Encounter Smoking Cessation Education CONSULT TO GASTROENTEROLOGY CONSULT TO GASTROENTEROLOGY Physician Consult CONSULT TO CC GENERAL SURGERY (AV,IR) Physician Consult CONSULT TO CC HEMATOLOGY / ONCOLOGY (AV,FV,IR) Follow-Up Appointment PATIENT CONDITION AT DISCHARGE: Stable ADVANCE CARE PLANNING DISCUSSION (if applicable): N/A DISCHAR (more content not included)... Normal [facility] CONSULT PROGon 01-31-2022 CONSULT PROG HNO ID: [id number] Author: Charly Hargrove APRN.MANAGER TRADING Service: Gastroenterology Author Type: Nurse Practitioner Type: Consult Progress Note Filed: 01/31/2022 3:53 PM Note Text: Brief GI progress note: S/p EGD with Dr. Hernandez this afternoon Impression: - Z-line irregular, 40 cm from the incisors. - Normal esophagus. - Normal stomach. - Normal examined duodenum. Biopsied. Recommendation: - Await pathology results. - [facility]. - Clear liquid diet today. - Continue present medications. - Recommend protonix 40 mg daily with discontinuation of prilosec. - Findings do not account for her abdominal pain. - Consider referral to gastroparesis specialist Dr. Douglass. Charly Hargrove, [facility] Gastroenterology [phone] [facility] Comprehensive metabolic 2000 panelon 01-31-2022 Albumin [Mass/Vol] 3.6 g/dL Low 3.9-4.9 [facility]spital Comment on above: Order Comment: Speci men Type: BLOOD SPECIMENOrdering Facility: [facility] Address: [address] [place] [address] Performed By: #### 2 4323-8 ####[facility] LABORATORYCLIA [id number] [place] [address] [place] ALP [Catalytic activity/Vol] 267 U/L High 34-123 [facility] Comment on above: Order Comment: Speci men Type: BLOOD SPECIMENOrdering Facility: [facility] Address: [address] [place] [address] Performed By: #### 2 4323-8 ####[facility] LABORATORYIA [id number] [place] [address] [place] ALT [Catalytic activity/Vol] 122 U/L High 7-38 [facility] Comment on above: Order Comment: Speci men Type: BLOOD SPECIMENOrdering Facility: [facility] Address: [address] [place] [address] Performed By: #### 2 4323-8 ####[facility] LABORATORYIA [id number] [place] [address] [place] Anion gap [Moles/Vol] 7 mmol/L Low 9-18 [facility] Comment on above: Order Comment: Speci men Type: BLOOD SPECIMENOrdering Facility: [facility] Address: [address] [place] [address] Performed By: #### 2 4323-8 ####[facility] LABORATORYIA [id number] [place] [address] [place] AST [Catalytic activity/Vol] 152 U/L High 13-35 [facility] Comment on above: Order Comment: Speci men Type: BLOOD SPECIMENOrdering Facility: [facility] Address: [address] [place], [place] [address] Performed By: #### 2 4323-8 ####[facility] LABORATORYCLIA [id number] [place] [address] [place] Bilirubin [Mass/Vol] 0.5 mg/dL Normal 0.2-1.3 [facility] Comment on above: Order Comment: Speci men Type: BLOOD SPECIMENOrdering Facility: [facility] Address: [address] [place] [address] Performed By: #### 2 4323-8 ####[facility] LABORATORYCLIA [id number] [place] [address] [place] Calcium [Mass/Vol] 9.1 mg/dL Normal 8.5-10.2 [facility]ital Comment on above: Order Comment: Speci men Type: BLOOD SPECIMENOrdering Facility: [facility] Address: [address] [place] [address] Performed By: #### 2 4323-8 ####[facility] LABORATORYIA [id number] [place] [address] [place] Chloride [Moles/Vol] 100 mmol/L Normal 97-105 [facility] Comment on above: Order Comment: Speci men Type: BLOOD SPECIMENOrdering Facility: [facility] Address: [address] [place] [address] Performed By: #### 2 4323-8 ####[facility] LABORATORYIA [id number] [place] [id number] [place] CO2 [Moles/Vol] 27 mmol/L Normal 22-30 [facility] Comment on above: Order Comment: Speci men Type: BLOOD SPECIMENOrdering Facility: [facility] Address: [address] [place], [place] [address] Performed By: #### 2 4323-8 ####[facility] LABORATORYIA [id number] [place] [address] [place] Creatinine [Mass/Vol] 0.68 mg/dL Normal 0.58-0.96 [facility] Comment on above: Order Comment: Mani dia Type: BLOOD SPECIMENOrdering Facility: [facility] Address: [address] [place] [address] Performed By: #### 2 4323-8 ####[facility] LABORATORYCLIA [id number] [place] [address] [place] ESTIMATED GLOMERULAR FILTRATION RATE 116 mL/min/1.73m??? Normal >=60 [facility] Comment on above: Order Comment: Mani dia Type: BLOOD SPECIMENOrdering Facility: [facility] Address: [address] [place] [address] Result Comment: Breana mated Glomerular Filtration Rate (eGFR) is calculated using the 2020 CKD-EPI creatinine equation. This equation utilizes serum creatinine, sex, and age as parameters. The creatinine assay has traceable calibration to isotope dilution-mass spectrometry. Refer to KDIGO guidelines for clinical interpretation. In patients with unstable renal function, e.g. those with acute kidney injury, the eGFR may not accurately reflect actual GFR. Performed By: #### 2 4323-8 ####[facility] LABORATORYCLIA [id number] [place] [address] [place] Glucose [Mass/Vol] 90 mg/dL Normal 74-99 [facility] Comment on above: Order Comment: Poloemma dia Type: BLOOD SPECIMENOrdering Facility: [facility] Address: [address] [place] [address] Result Comment: The Canadian Diabetes Association (ADA) provides guidance for cutoff values for fasting glucose and random glucose. The ADA defines fasting as no caloric intake for at least 8 hours. Fasting plasma glucose results between 100 to 125 mg/dL indicate increased risk for diabetes (prediabetes). Fasting plasma glucose results greater than or equal to 126 mg/dL meet the criteria for diagnosis of diabetes. In the absence of unequivocal hyperglycemia, results should be confirmed by repeat testing. In a patient with classic symptoms of hyperglycemia or hyperglycemic crisis, random plasma glucose results greater than or equal to 200 mg/dL meet the criteria for diagnosis of diabetes. Reference: Standards of Medical Care in Diabetes 2016, Canadian Diabetes Association. Diabetes Care. 2016.39(Suppl 1). Performed By: #### 2 4323-8 ####[facility] [id number] [place] [address] [place] Potassium [Moles/Vol] 3.8 mmol/L Normal 3.7-5.1 [facility] Comment on above: Order Comment: Speci men Type: BLOOD SPECIMENOrdering Facility: [facility] Address: [address] [place] [address] Performed By: #### 2 4323-8 ####[facility] [id number] [place] [id number] [place] Protein [Mass/Vol] 6.9 g/dL Normal 6.3-8.0 [facility]ital Comment on above: Order Comment: Speci men Type: BLOOD SPECIMENOrdering Facility: [facility] Address: [address] [place] [address] Performed By: #### 2 4323-8 ####[facility] [id number] [place] [address] [place] Sodium [Moles/Vol] 134 mmol/L Low 136-144 [facility] Comment on above: Order Comment: Speci men Type: BLOOD SPECIMENOrdering Facility: [facility] Address: [address] [place] [address] Performed By: #### 2 4323-8 ####[facility] [id number] [place] [address] [place] Urea nitrogen [Mass/Vol] 6 mg/dL Low 7-21 [facility] Comment on above: Order Comment: Speci men Type: BLOOD SPECIMENOrdering Facility: [facility] Address: [address] [place] [place] [address] Performed By: #### 2 4323-8 ####[facility] [id number] [place] [address] [place] SURGICAL PATHOLOGYon [address] [facility] Comment on above: Order Comment: Speci men Type: TISSUE SPECIMEN [facility] Address: [address] [place] [address] Result Comment: Surg ica Pathology Report Case: [id number] Authorizing Provider: Arsh Hernandez MD Collected: 01/31/2022 02:43 PM Ordering Location: Procedures Received: 01/31/2022 04:05 PM Pathologist: Eric Vitale MD Specimen: DUODENUM BIOPSY Performed By: #### S #### [facility] CLIA [id number] [address] [place] [address] FINAL DIAGNOSIS Normal [facility] ital Comment on above: Order Comment: Speci men Type: TISSUE SPECIMEN [facility] Address: [address] [place] [address] Result Comment: Duod enum, biopsy: - 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 - No evidence of celiac disease or duodenitis. Performed By: #### S #### [facility] CLIA [id number] [address] [place] [address] [address] LAB Normal [facility] Comment on above: Order Comment: Speci men Type: TISSUE SPECIMEN [facility] Address: [address] [place] [address] Result Comment: Diag nostic interpretation performed at [facility], [address] [place] [address] CLIA# [id number] Merchandising Specialist: Marcellus Morgan M.D. Performed By: #### S #### [facility] CLIA [id number] [address] [place] [address] GROSS DESCRIPTION [facility] Comment on above: Order Comment: Speci men Type: TISSUE SPECIMEN [facility] Address: [address] [place] [address] Result Comment: A. D UODENUM BIOPSY Received in formalin are two pieces of robertson, soft tissue aggregating to 0.4 x 0.2 x 0.2 cm. Totally submitted in one cassette. Gross examination performed at [facility], [address] [place] [address], [place] [address] TTN 01/31/2022 11:37 PM Performed By: #### S #### [facility] CLIA [id number] [address] [place] [address] [place] [id number] [id number] [place] [facility] Upper GI endoscopy 01-31-[address] [facility] Gastrointestinal Endoscopy Patient Name: Ben Barr Procedure Date: 01/31/2022 2:16 PM Date of : 1985 Admit Type: Inpatient Age: 36 Room: PROCEDURE A Gender: Female Note Status: Finalized Attending MD: Arsh Hernandez MD Procedure: Upper GI endoscopy Indications: Nausea with vomiting Providers: Arsh Hernandez MD Patient Profile: This is a 36 year old female. Refer to note in patient chart for documentation of history and physical. Referring Physician: Charly Bajwa (strategic account directorAngella Hargrove (Referring MD) Medicines: General Anesthesia Complications: No immediate complications. Requesting Provider: Procedure: Pre-Anesthesia Assessment: - Prior to the procedure, a History and Physical was performed, and patient medications and allergies were reviewed. The patient's tolerance of previous anesthesia was also reviewed. The risks and benefits of the procedure and the sedation options and risks were discussed with the patient. All questions were answered, and informed consent was obtained. Prior Anticoagulants: The patient has taken no anticoagulant or antiplatelet agents. ASA Grade Assessment: III - A patient with severe systemic disease. After reviewing the risks and benefits, the patient was deemed in satisfactory condition to undergo the procedure. After obtaining informed consent, the endoscope was passed under direct vision. Throughout the procedure, the patient's blood pressure, pulse, and oxygen saturations were monitored continuously. The 3389 EGD was introduced through the mouth, and advanced to the second part of duodenum. The upper GI endoscopy was accomplished without difficulty. The patient tolerated the procedure well. Moderate Sedation: MAC anesthesia was administered by the anesthesia team. Total Procedure Duration: 0 hours 3 minutes 59 seconds Findings: The Z-line was irregular and was found 40 cm from the incisors. The examined esophagus was normal. The entire examined stomach was normal. The cardia and gastric fundus were normal on retroflexion. The examined duodenum was normal. Biopsies for histology were taken with a cold forceps for evaluation of celiac disease nwithin the bulb and second portion. Impression: - Z-line irregular, 40 cm from the incisors. - Normal esophagus. - Normal stomach. - Normal examined duodenum. Biopsied. Recommendation: - Await pathology results. - [facility]. - Clear liquid diet today. - Continue present medications. - Recommend protonix 40 mg daily with discontinuation of prilosec. - Findings do not account for her abdominal pain. - Consider referral to gastroparesis specialist Dr. Douglass. Procedure Code(s): --- Professional --- 47760, Esophagogastroduodenoscopy, flexible, transoral; with biopsy, single or multiple Diagnosis Code(s): --- Professional --- K22.89, Other specified disease of esophagus R11.2, Nausea with vomiting, unspecified CPT copyright 2020 [employer]. All rights reserved. The codes documented in this report are preliminary and upon law enforcement instructor review may be revised to meet current compliance requirements. Attending Participation: I personally performed the entire procedure. Scope In: 2:40:57 PM Scope Out: 2:44:56 PM MD Arsh Millan MD 01/31/2022 2:51:46 PM This report has been signed electronically by Arsh Hernandez MD Number of Addenda: 0 Note Initiated On: 01/31/2022 2:16 PM Estimated Blood Loss: Estimated blood loss was minimal. Normal [facility] CBC panel Auto (Bld)on 01-30 Erythrocyte distribution width (RBC) [Ratio] 12.4 % Normal 11.5-15.0 [facility] Comment on above: Order Comment: Mani dia Type: BLOOD SPECIMENOrdering Facility: [facility] Address: [address] [place] [address] Performed By: #### 5 8410-2 ####[facility] LABORATORYCLIA [id number] [facility] [address] [place] Hematocrit (Bld) [Volume fraction] 33.1 % Low 36.0-46.0 [facility] Comment on above: Order Comment: Mani dia Type: BLOOD SPECIMENOrdering Facility: [facility] [facility] Address: [address] Performed By: #### 5 8410-2 ####[facility] [id number] [place] [address] [place] Hemoglobin (Bld) [Mass/Vol] 11.1 g/dL Low 11.5-15.5 [facility] Comment on above: Order Comment: Speci men Type: BLOOD SPECIMENOrdering Facility: [facility] Address: [address] [address] Performed By: #### 5 8410-2 ####[facility] [id number] [place] [address] [place] MCH (RBC) [Entitic mass] 32.6 pg Normal 26.0-34.0 [facility] Comment on above: Order Comment: Speci men Type: BLOOD SPECIMENOrdering Facility: [facility] Address: [address] [address] Performed By: #### 5 8410-2 ####[facility] [id number] [address] [place] MCHC (RBC) [Mass/Vol] 33.5 g/dL Normal 30.5-36.0 [facility] Comment on above: Order Comment: Speci men Type: BLOOD SPECIMENOrdering Facility: [facility] Address: [address] [address] Performed By: #### 5 8410-2 ####[facility] [id number] [address] [place] MCV (RBC) [Entitic vol] 97.4 fL Normal 80.0-100.0 [facility] Comment on above: Order Comment: Speci men Type: BLOOD SPECIMENOrdering Facility: [facility] Address: [address] [place] [address] Performed By: #### 5 8410-2 ####[facility] LAB[facility]ATORYIA [id number] [place] [address] [place] Nucleated RBC (Bld) [#/Vol] 10*3/uL Normal <0.01 [facility] Comment on above: Order Comment: Speci men Type: BLOOD SPECIMENOrdering Facility: [facility] Address: [address] [address] Performed By: #### 5 8410-2 ####[facility] LAB[facility]ORYIA [id number] [place] [address] [place] Platelet mean volume (Bld) [Entitic vol] 9.9 fL Normal 9.0-12.7 [facility] Comment on above: Order Comment: Speci men Type: BLOOD SPECIMENOrdering Facility: [facility] Address: [address] Performed By: #### 5 8410-2 ####[facility] [id number] [place] [address] [place] Platelets (Bld) [#/Vol] 105 10*3/uL Low 150-400 [facility] Comment on above: Order Comment: Speci men Type: BLOOD SPECIMENOrdering Facility: [facility] Address: [address] Performed By: #### 5 8410-2 ####[facility] [id number] [place] [address] [place] RBC (Bld) [#/Vol] 3.40 10*6/uL Low 3.90-5.20 [facility] Comment on above: Order Comment: Speci men Type: BLOOD SPECIMENOrdering Facility: [facility] Address: [address] Performed By: #### 5 8410-2 ####[facility] LAB[facility]ORYIA [id number] [place] [address] [place] WBC (Bld) [#/Vol] 3.01 10*3/uL Low 3.70-11.00 [facility] Comment on above: Order Comment: Speci men Type: BLOOD SPECIMENOrdering Facility: [facility] Address: [address] Performed By: #### 5 8410-2 ####[facility] LABORATORYCLIA [id number] [facility] [place] [address] [place] [facility] CONSULT PROGon 01-30-2022 CONSULT PROG HNO ID: [id number] Author: Charly Hargrove APRN.MANAGER TRADING Service: Gastroenterology Author Type: Nurse Practitioner Type: Consult Progress Note Filed: 01/30/2022 3:40 PM Note Text: Brief GI progress note: S:Pt still complains of upper abdominal pain, although feels nausea improving with use of intermittent iv reglan. Although reports twitching . Discussed GES findings with patient. O: Gen:awake,follows commands CVS: S1,S2+ RS: CTA b/l ABD: soft, +tenderness upper abdomen, BS+ EXT: no edema CBC, Coags, BMP, Mg, Phos Recent Labs 01/30/2253601/29/2261601/29/2261501/28/22517 WBC 3.01* -- 2.40* 2.38* HB 11.1* -- 11.1* 10.8* HCT 33.1* -- 33.3* 32.6* PLT 105* -- 82* 74* NA 135* 141 -- 139 K 3.7 3.9 -- 3.6* CHLOR 101 107* -- 106* CO2 28 29 -- 26 BUN 3* 3* -- 5* CREAT 0.71 0.75 -- 0.73 GLUC 90 90 -- 122* CA 8.5 8.5 -- 7.4* Liver Function, Amylase, AND Lipase Recent Labs 01/30/2237 01/29/2261601/28/22517 TPROT 6.0* 5.6* 5.1* ALB 3.2* 3.0* 2.8* ALT 125* 102* 103* AST 183* 146* 179* ALKPHOS 242* 197* 157* TBILI 0.5 0.4 0.4 Diagnostics Reviewed: 01/28/22 CT A/P: Three areas of short segment small bowel intussusception in the left upper quadrant (two are new from 01/26/2022 and one is relatively similar in appearance to 01/26/2022), as described. No evidence for associated bowel obstruction (enteric contrast is noted to be in the small bowel distal to these areas of intussusception). Assessment: Ms. Barr is a 36 year old female with complicated PMHx/PSHx including CVID (on IgG infusions), seizures, hypothyroidism, POTS, prior total colectomy in 2015 (? bowel) with ileoanal anastomosis, legionnaires disease (2005), prior mercury/lead/arsenic toxicity s/p chelation therapy, and gastric bezoar who presents for nausea, vomiting, and abdominal pain # Acute on chronic nausea, vomiting, abdominal pain # Gastric bezoar # Prior subtotal colectomy # Intussusception on CT # Transaminitis, ongoing #Gastroparesis -01/30 GES->REDUCED RATE OF GASTRIC EMPTYING OF A SOLID MEAL. 21-35% GASTRIC RETENTION AT 4 HOURS IS CONSISTENT WITH MODERATE GASTROPARESIS -LABS: WBC: 3.01, Hgb: 11.1,platelet: 105; INR: 1.0; Tbili: 0.5, AP: 242, AST: 183, ALT: 125; UDS +cannabinoids OTHER liver serologies-> CHRIS (+), SMA (-), iron studies 214/<231/>92.6/ferritin 589-> HFE in process, Alpha 1 (-) ,CMV (-), EBV in process, mitochondrial->in process ; ethyl glucuronide in process -.gastroparesis diet w/ 6 small frequent meals, low fat <40 gm , avoid opiates -has been on prn Reglan IV which seems to be helping, would like to schedule with meals but d/t home med- Prozac interaction with Reglan and reporting twitching will defer for now -Pt is scheduled as OP for EGD 02/01, requesting to be completed while IP, tentatively posted 01/31 , NPO after midnight -Pt requesting Dr. Hernandez to speak with her, advised likely would be via telephone later this afternoon, her #[phone] -will follow along Case to be discussed with Dr. Hernandez for further recs Charly Hargrove, MANAGER TRADING Gastroenterology and Hepatology [phone] *Portions of Impression and Plan copied from previous day's GI Consult Note and updated as indicated* Normal [facility] CONSULT PROG HNO ID: [id number] Author: Virgil Delgado PA-C Service: General Surgery Author Type: Physician Account Processor Type: Consult Progress Note Filed: 01/30/2022 9:00 AM Note Text: SURGICAL SERVICES PROGRESS NOTE SERVICE DATE: 01/30/2022 SERVICE TIME: 08 CONSULTING SERVICE: General Surgery Subjective INTERVAL HISTORY OF PRESENT ILLNESS: Patient states that she is doing better than when she is first admitted. Currently having her gastric emptying study done. States she has been having Bms and passing gas. Can only eat a little before getting nauseous. Denies any fever/chills, CP, SOB, n/v, or dysuria. Current Facility-Administered Medications Medication Dose Route Frequency OXcarbazepine 150 mg tab(s) (TRILEPTAL) 150 mg ORAL BID fluconazole 100 mg tab(s) (DIFLUCAN) 100 mg ORAL DAILY propranolol ER 60 mg cap(s) (INDERAL LA) 60 mg ORAL DAILY FLUoxetine 60 mg cap(s) (PROzac) 60 mg ORAL DAILY enoxaparin 40 mg injection (LOVENOX) 40 mg SUBCUTANEOUS q 24 HR NaCl 0.9% iv flush bag 20 mL INTRAVENOUS PRN sodium chloride 0.9 % (flush) 3-5 mL (BD POSIFLUSH) 3-5 mL INTRAVENOUS q 12 H metoclopramide HCl 5 mg injection (REGLAN) 5 mg INTRAVENOUS q 6 H PRN ondansetron (PF) 4 mg injection (ZOFRAN) 4 mg INTRAVENOUS q 6 H PRN busPIRone 30 mg tab(s) (BUSPAR) 30 mg ORAL BID iv contrast (radiology procedure) INTRAVENOUS DIRECTED PRN morphine 1 mg injection 1 mg INTRAVENOUS q 3 H PRN HYDROcodone 5 mg - acetaminophen 325 mg tablet (NORCO) 1-2 tablet ORAL q [address] 40 mg tab(s) (PROTONIX) 40 mg ORAL DAILY (6 AM) LORazepam 0.5 mg tab(s) (ATIVAN) 0.5 mg ORAL AT BEDTIME PRN Objective PHYSICAL EXAM: BP 143/96 Pulse 67 Temp (Src) 98.6 (Oral) Resp 16 Ht 5' 1 (1.55m) Wt 132 lb 7.9 oz (60.1kg) SpO2 98% LMP 01/14/2022 BMI 25.05 kg/(m2). O2 Therapy: Room Air Physical Exam Performed GENERAL: Alert, no distress, cooperative, resting comfortably , and upright in bed EYES: EOMI LUNGS: Lungs are, clear to auscultation bilaterally, and Good diaphragmatic excursion CARDIAC: Normal S1,S2 and No murmurs, rubs or gallops ABDOMEN: Abdomen is, soft, non-distended, tender to deep palpation in LUQ without guarding or rigidity., BS normal and present in all four quadrants, and No generalized peritonitis or acute surgical abdomen NEURO: Patient is alert and oriented and Grossly normal speech, cognition and motor function Intake/Output Summary (Last 24 hours) at 01/30/2022 0853 Last data filed at 01/29/2022 2200 Gross per 24 hour Intake 240 ml Output -- Net 240 ml DATA: Diagnostic tests reviewed for today's visit: Most recent labs and imaging results. Recent Labs 01/30/22 0537 01/29/22 0617 01/29/22 0616 01/28/22 0518 WBC 3.01* -- 2.40* 2.38* HB 11.1* -- 11.1* 10.8* HCT 33.1* -- 33.3* 32.6* PLT 105* -- 82* 74* NA 135* 141 -- 139 K 3.7 3.9 -- 3.6* CHLOR 101 107* -- 106* CO2 28 29 -- 26 CREAT 0.71 0.75 -- 0.73 BUN 3* 3* -- 5* GLUC 90 90 -- 122* TPROT 6.0* 5.6* -- 5.1* ALB 3.2* 3.0* -- 2.8* CA 8.5 8.5 -- 7.4* ALKPHOS 242* 197* -- 157* TBILI 0.5 0.4 -- 0.4 AST 183* 146* -- 179* ALT 125* 102* -- 103* CT ABD/PEL W IVCON Result Date: 01/28/2022 IMPRESSION: Three areas of short segment small bowel intussusception in the left upper quadrant (two are new from 01/26/2022 and one is relatively similar in appearance to 01/26/2022), as described. No evidence for associated bowel obstruction (enteric contrast is noted to be in the small bowel distal to these areas of intussusception). CT ABD/PEL W IVCON Result Date: 01/26/2022 IMPRESSION: 1. No acute findings are identified. 2. Nonobstructive short segment intussusception involving small bowel in the left abdomen which can be seen as a transient finding in adults. 3. Postsurgical changes. Positive Micro-30 Days No results found for the last 720 hours. 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 Barr is a 36 year old female with a PMH of POTS, pseudoseizures, pituitary tumor, CVID, anxiety/depression, chronic abdominal pain, and chronic constipation s/p total colectomy who presents for 6 weeks of nausea, vomiting, inability to keep anything down, change in bowel habits, CT scan with non-obstructive intussusception. PLAN - Pt is AF, VSS, no leukocytosis - Non-surgical abdomen, clinically not obstructed - GI to finish work-up, currently having gastric emptying study done - Discussed and reiterated with patient that there is no plan for surgical intervention this admission. Patient agrees with plan and endorses understanding - C (more content not included)... Normal [facility] Comprehensive metabolic 2000 panelon 01-30-2022 Albumin [Mass/Vol] 3.2 g/dL Low 3.9-4.9 [facility] Comment on above: Order Comment: Mani dia Type: BLOOD SPECIMENOrdering Facility: [facility] Address: [facility] [place] [address] Performed By: #### 2 4323-8 ####[facility] LABORATORYCLIA [id number] [facility] [address] [place] ALP [Catalytic activity/Vol] 242 U/L High 34-123 [facility] Comment on above: Order Comment: Speci men Type: BLOOD SPECIMENOrdering Facility: [facility] Address: [address] [address] Performed By: #### 2 4323-8 ####[facility] LAB[facility]ORYIA [id number] [place] [address] [place] ALT [Catalytic activity/Vol] 125 U/L High 7-38 [facility] Comment on above: Order Comment: Speci men Type: BLOOD SPECIMENOrdering Facility: [facility] Address: [address] [address] Performed By: #### 2 4323-8 ####[facility]ORYIA [id number] [place] [address] [place] Anion gap [Moles/Vol] 6 mmol/L Low 9-18 [facility] Comment on above: Order Comment: Speci men Type: BLOOD SPECIMENOrdering Facility: [facility] Address: [address] [address] Performed By: #### 2 4323-8 ####[facility] [id number] [place] [address] [place] AST [Catalytic activity/Vol] 183 U/L High 13-35 [facility] Comment on above: Order Comment: Speci men Type: BLOOD SPECIMENOrdering Facility: [facility] Address: [address] [address] Performed By: #### 2 4323-8 ####[facility] LABORATORYCLIA [id number] [place] [address] [place] Bilirubin [Mass/Vol] 0.5 mg/dL Normal 0.2-1.3 [facility] Comment on above: Order Comment: Speci men Type: BLOOD SPECIMENOrdering Facility: [facility] Address: [address] [place] [address] Performed By: #### 2 4323-8 ####[facility]ORYIA [id number] [place] [address] [place] Calcium [Mass/Vol] 8.5 mg/dL Normal 8.5-10.2 [facility] Comment on above: Order Comment: Speci men Type: BLOOD SPECIMENOrdering Facility: [facility] Address: [address] [place] [address] Performed By: #### 2 4323-8 ####[facility] LABORATORYCLIA [id number] [place] [address] [place] Chloride [Moles/Vol] 101 mmol/L Normal 97-105 [facility] Comment on above: Order Comment: Speci men Type: BLOOD SPECIMENOrdering Facility: [facility] Address: [address] [place] [address] Performed By: #### 2 4323-8 ####[facility] LABORATORYCLIA [id number] [place] [address] [place] CO2 [Moles/Vol] 28 mmol/L Normal 22-30 [facility] Comment on above: Order Comment: Speci men Type: BLOOD SPECIMENOrdering Facility: [facility] Address: [address] [place] [address] Performed By: #### 2 4323-8 ####[facility] LABORATORYIA [id number] [place] [id number] [place] Creatinine [Mass/Vol] 0.71 mg/dL Normal 0.58-0.96 [facility] Comment on above: Order Comment: Speci men Type: BLOOD SPECIMENOrdering Facility: [facility] Address: [address] [place] [address] Performed By: #### 2 4323-8 ####[facility] LABORATORYCLIA [id number] [place] [address] [place] ESTIMATED GLOMERULAR FILTRATION RATE 113 mL/min/1.73m??? Normal >=60 [facility] Comment on above: Order Comment: Speci men Type: BLOOD SPECIMENOrdering Facility: [facility] Address: [address] [place] [address] Result Comment: Breana mated Glomerular Filtration Rate (eGFR) is calculated using the 2020 CKD-EPI creatinine equation. This equation utilizes serum creatinine, sex, and age as parameters. The creatinine assay has traceable calibration to isotope dilution-mass spectrometry. Refer to KDIGO guidelines for clinical interpretation. In patients with unstable renal function, e.g. those with acute kidney injury, the eGFR may not accurately reflect actual GFR. Performed By: #### 2 4323-8 ####[facility] LABORATORYCLIA [id number] [place] [address] [place] Glucose [Mass/Vol] 90 mg/dL Normal 74-99 [facility] Comment on above: Order Comment: Speci men Type: BLOOD SPECIMENOrdering Facility: [facility] Address: [address] [id number] Result Comment: The [place] Diabetes Association (ADA) provides guidance for cutoff values for fasting glucose and random glucose. The ADA defines fasting as no caloric intake for at least 8 hours. Fasting plasma glucose results between 100 to 125 mg/dL indicate increased risk for diabetes (prediabetes). Fasting plasma glucose results greater than or equal to 126 mg/dL meet the criteria for diagnosis of diabetes. In the absence of unequivocal hyperglycemia, results should be confirmed by repeat testing. In a patient with classic symptoms of hyperglycemia or hyperglycemic crisis, random plasma glucose results greater than or equal to 200 mg/dL meet the criteria for diagnosis of diabetes. Reference: Standards of Medical Care in Diabetes 2016, Canadian Diabetes Association. Diabetes Care. 2016.39(Suppl 1). Performed By: #### 2 4323-8 ####[facility] LABORATORYCLIA [id number] [place] [address] [place] Potassium [Moles/Vol] 3.7 mmol/L Normal 3.7-5.1 [facility] Comment on above: Order Comment: Speci men Type: BLOOD SPECIMENOrdering Facility: [facility] Address: [address] [place] [address] Performed By: #### 2 4323-8 ####[facility] LABORATORYCLIA [id number] [place] [address] [place] Protein [Mass/Vol] 6.0 g/dL Low 6.3-8.0 [facility] Comment on above: Order Comment: Speci men Type: BLOOD SPECIMENOrdering Facility: [facility] Address: [address] [address] Performed By: #### 2 4323-8 ####[facility] [id number] [place] [address] [place] Sodium [Moles/Vol] 135 mmol/L Low 136-144 [facility] Comment on above: Order Comment: Speci men Type: BLOOD SPECIMENOrdering Facility: [facility] Address: [address] [address] Performed By: #### 2 4323-8 ####[facility] [id number] [place] [address] [place] Urea nitrogen [Mass/Vol] 3 mg/dL Low 7-21 [facility] Comment on above: Order Comment: Speci men Type: BLOOD SPECIMENOrdering Facility: [facility] Address: [address] [address] Performed By: #### 2 4323-8 ####[facility] [id number] [place] [address] [place] NM GASTRIC EMPTYING SOLIDon 01-30-2022 NM GASTRIC EMPTYING SOLID * * *Final Report* * * DATE OF EXAM: Jan 30 2022 12:48PM [facility] 0017 - NM GASTRIC EMPTYING SOLID / PROCEDURE REASON: Nausea/vomiting * * * * Physician Interpretation * * * * SOLID MEAL GASTRIC EMPTYING STUDY 01/30/2022 12:50 PM: CLINICAL HISTORY: Nausea/vomiting TECHNIQUE: 1.0 mCi Tc-99m sulfur colloid was given orally in a meal consisting of 4 oz Egg Beaters, 2 slices of toast, jelly, and 8 oz water, consumed over 5 to 10 minutes. 1-minute posterior and anterior spot images of the stomach region at times 0, 1, 2, and 4 hours were obtained. Geometric mean was used to plot a time-activity curve. RESULT: Solid study demonstrates 87% gastric retention at 1 hour (normal range, 37-90%), 81% retention at 2 hours (normal range, 30-60%), and 29% retention at 4 hours (normal range, 0-10%). There is no evidence of accelerated emptying of gastric contents, with 87% retention at 1 hour (rapid emptying is <30% retention at 1 hour). IMPRESSION: REDUCED RATE OF GASTRIC EMPTYING OF A SOLID MEAL. 21-35% GASTRIC RETENTION AT 4 HOURS IS CONSISTENT WITH MODERATE GASTROPARESIS. Staple Laster: CHENG Transcribe Date/Time: Jan 30 2022 12:50P Dictated by : LAUREN THOMAS MD This examination was interpreted and the report reviewed and electronically signed by: LAUREN THOMAS MD on Jan 30 2022 12:52PM EST [id number] Normal [facility] CBC panel Auto (Bld)on 01-29 Erythrocyte distribution width (RBC) [Ratio] 12.8 % Normal 11.5-15.0 [facility] Comment on above: Order Comment: Mani dia Type: BLOOD SPECIMENOrdering Facility: [facility] Address: [address] [place] [address] Performed By: #### 5 8410-2, 05680-7 ####[facility] [id number] [place] [address] [place] Hematocrit (Bld) [Volume fraction] 33.3 % Low 36.0-46.0 [facility] Comment on above: Order Comment: Mani dia Type: BLOOD SPECIMENOrdering Facility: [facility] Address: [address] [place] [address] Performed By: #### 5 8410-2, 71075-9 ####[facility] LABORATORYIA [id number] [place] [address] [place] Hemoglobin (Bld) [Mass/Vol] 11.1 g/dL Low 11.5-15.5 [facility] Comment on above: Order Comment: Poloi ifeoma Type: BLOOD SPECIMENOrdering Facility: [facility] Address: [address] [place] [address] Performed By: #### 5 8410-2, 07266-5 ####[facility] LABORATORYCLIA [id number] [place] [address] [place] MCH (RBC) [Entitic mass] 33.0 pg Normal 26.0-34.0 [facility] Comment on above: Order Comment: Speci men Type: BLOOD SPECIMENOrdering Facility: [facility] Address: [address] [place] [address] Performed By: #### 5 8410-2, 88805-7 ####[facility] LABORATORYCLIA [id number] [address] [place] MCHC (RBC) [Mass/Vol] 33.3 g/dL Normal 30.5-36.0 [facility] Comment on above: Order Comment: Speci men Type: BLOOD SPECIMENOrdering Facility: [facility] Address: [address] [place] [address] Performed By: #### 5 8410-2, 11940-5 ####[facility] [id number] [address] [place] MCV (RBC) [Entitic vol] 99.1 fL Normal 80.0-100.0 [facility] Comment on above: Order Comment: Speci men Type: BLOOD SPECIMENOrdering Facility: [facility] Address: [address] [place] [address] Performed By: #### 5 8410-2, 66658-6 ####[facility] [id number] [address] [place] Nucleated RBC (Bld) [#/Vol] 10*3/uL Normal <0.01 [facility] Comment on above: Order Comment: Speci men Type: BLOOD SPECIMENOrdering Facility: [facility] Address: [address] [place] [address] Performed By: #### 5 8410-2, 51451-0 ####[facility] LAB[facility]ATORYIA [id number] [address] [place] Platelet mean volume (Bld) [Entitic vol] 9.5 fL Normal 9.0-12.7 [facility] Comment on above: Order Comment: Speci men Type: BLOOD SPECIMENOrdering Facility: [facility] Address: [address] [address] Performed By: #### 5 8410-2, 25985-8 ####[facility] [id number] [address] [place] Platelets (Bld) [#/Vol] 82 10*3/uL Low 150-400 [facility] Comment on above: Order Comment: Speci men Type: BLOOD SPECIMENOrdering Facility: [facility] Address: [address] [place] [address] Result Comment: No c lot detected. Performed By: #### 5 8410-2, 62978-3 ####[facility] [id number] [address] [place] RBC (Bld) [#/Vol] 3.36 10*6/uL Low 3.90-5.20 [facility] Comment on above: Order Comment: Speci men Type: BLOOD SPECIMENOrdering Facility: [facility] Address: [address] [address] Performed By: #### 5 8410-2, 04204-0 ####[facility] [id number] [address] [place] WBC (Bld) [#/Vol] 2.40 10*3/uL Low 3.70-11.00 [facility] Comment on above: Order Comment: Speci men Type: BLOOD SPECIMENOrdering Facility: [facility] Address: [address] [place] [address] Performed By: #### 5 8410-2, 43775-7 ####[facility] [id number] [address] CONSULTon 01-29-2022 CONSULT HNO ID: [id number] Author: Elvis Cohen MD Service: Hematology/Oncology Author Type: Physician Type: Consults Filed: 01/29/2022 1:59 PM Note Text: C/S dictated; #[id number]. Pancytopenia. Continue outpatient f/up with Dr. Eze Sarmiento. Elvis Cohen MD Normal [facility] CONSULT HNO ID: [id number] Author: Elvis Cohen MD Service: Hematology/Oncology Author Type: Physician Type: Consults Filed: 01/30/2022 9:09 AM Note Text: [facility] - Consultation BEN BARR : 1985 AGE: 36 SEX: F CSN: [id number] [facility]: [facility] LOCATION: [facility] ATTENDING PHYSICIAN: SHAUN CONTEH DATE OF SERVICE: 01/29/2022 TIME OF SERVICE: 01:00 PM CONSULTING PHYSICIAN: Elvis Cohen MD REASON FOR CONSULTATION: Pancytopenia. HISTORY OF PRESENT ILLNESS: The patient is a pleasant 36-year-old white lady, who presented to [facility] with nausea, vomiting, associated with a new intussusception. She had been recently seen by Dr. Eze Sarmiento in the outpatient setting for evaluation of bicytopenia. Medical Oncology is consulted for further evaluation of what has now become pancytopenia during her hospital stay. The patient does feel improved with less abdominal pain and less nausea. She denies fever/shaking chills, bleeding, new lumps/bumps or any other major problems. PAST MEDICAL HISTORY: 1. POTS, hypothyroidism, history of grand mal seizure. 2. History of depression. 3. Common variable immunodeficiency. 4. CKD. PAST SURGICAL HISTORY: Partial bowel resection in 2005. MEDICATIONS: Enoxaparin, fluconazole, fluoxetine, hydrocodone/acetaminophen, metoclopramide, Oxcarbazepine , pantoprazole, and propranolol. ALLERGIES: Serotonin, 5-H3T antagonist. SOCIAL HISTORY: The patient quit smoking in 2013. Does not drink excessively and does not use illegal drugs. FAMILY HISTORY: No known first-degree relatives with malignancy. REVIEW OF SYSTEMS: No fevers or shaking chills. No weight loss. No sore throat. No runny nose. No chest pain. No palpitations. No shortness of breath. No cough. No wheezing. Positive nausea and vomiting. Positive abdominal pain. No increased urinary frequency. No burning with urination. No new joint pain. No new low back pain. No itching and no rashes. PHYSICAL EXAMINATION: General: No apparent distress, alert and oriented x3. Vital Signs: Temperature 36.4, pulse 80, respirations 17, and blood pressure 122/81. HEENT: Oropharynx is clear. No scleral icterus. No thyromegaly. Heart: S1, S2 normal, regular rate and rhythm. Lungs: Clear to auscultation and percussion bilaterally. Abdomen: Bowel sounds positive. Soft, nontender, and nondistended. No hepatosplenomegaly. Extremities: No cyanosis, no clubbing, no edema. ASSESSMENT AND PLAN: The patient is a pleasant 36-year-old lady with: 1. New pancytopenia consisting of moderate leukopenia, moderate thrombocytopenia and mild normochromic/normocytic anemia. Dr. Eze Sarmiento initiated outpatient evaluation, which is ongoing. I suggested continued outpatient followup in the future. 2. Intussusception. Continue GI and surgical evaluations. This recommendation is communicated to rest of the inpatient team via the shared inpatient record. Elvis Cohen MD Hematology/oncology KK:[id number] Normal [facility] Comprehensive metabolic 2000 panelon 01-29-2022 Albumin [Mass/Vol] 3.0 g/dL Low 3.9-4.9 [facility] Comment on above: Order Comment: Speci men Type: BLOOD SPECIMENOrdering Facility: [facility] Address: [address] [address] Performed By: #### 2 4323-8 ####[facility] LABORATORYCLIA [id number] [address] [place] ALP [Catalytic activity/Vol] 197 U/L High 34-123 [facility] Comment on above: Order Comment: Speci men Type: BLOOD SPECIMENOrdering Facility: [facility] Address: [address] [address] Performed By: #### 2 4323-8 ####[facility] LABORATORYCLIA [id number] [place] [address] [place] ALT [Catalytic activity/Vol] 102 U/L High 7-38 [facility] Comment on above: Order Comment: Speci men Type: BLOOD SPECIMENOrdering Facility: [facility] Address: [address] [address] Performed By: #### 2 4323-8 ####[facility] LABORATORYCLIA [id number] [place] [address] [place] Anion gap [Moles/Vol] 5 mmol/L Low 9-18 [facility] Comment on above: Order Comment: Speci men Type: BLOOD SPECIMENOrdering Facility: [facility] Address: [address] [address] Performed By: #### 2 4323-8 ####[facility] LABORATORYCLIA [id number] [place] [address] [place] AST [Catalytic activity/Vol] 146 U/L High 13-35 [facility] Comment on above: Order Comment: Speci men Type: BLOOD SPECIMENOrdering Facility: [facility] Address: [address] [address] Performed By: #### 2 4323-8 ####[facility] LABORATORYCLIA [id number] [place] [address] [place] Bilirubin [Mass/Vol] 0.4 mg/dL Normal 0.2-1.3 [facility] Comment on above: Order Comment: Speci men Type: BLOOD SPECIMENOrdering Facility: [facility] Address: [address] [address] Performed By: #### 2 4323-8 ####[facility] LABORATORYCLIA [id number] [place] [address] [place] Calcium [Mass/Vol] 8.5 mg/dL Normal 8.5-10.2 [facility] Comment on above: Order Comment: Speci men Type: BLOOD SPECIMENOrdering Facility: [facility] Address: [address] [address] Performed By: #### 2 4323-8 ####[facility] LABORATORYCLIA [id number] [place] [address] [place] Chloride [Moles/Vol] 107 mmol/L High 97-105 [facility] Comment on above: Order Comment: Speci men Type: BLOOD SPECIMENOrdering Facility: [facility] Address: [address] [address] Performed By: #### 2 4323-8 ####[facility] LABORATORYCLIA [id number] [place] [address] [place] CO2 [Moles/Vol] 29 mmol/L Normal 22-30 [facility] Comment on above: Order Comment: Speci men Type: BLOOD SPECIMENOrdering Facility: [facility] Address: [address] [address] Performed By: #### 2 4323-8 ####[facility] [id number] [address] [place] Creatinine [Mass/Vol] 0.75 mg/dL Normal 0.58-0.96 [facility] Comment on above: Order Comment: Speci men Type: BLOOD SPECIMENOrdering Facility: [facility] Address: [address] [address] Performed By: #### 2 4323-8 ####[facility] LABORATORYIA [id number] [address] [place] ESTIMATED GLOMERULAR FILTRATION RATE 106 mL/min/1.73m??? Normal >=60 [facility] Comment on above: Order Comment: Speci men Type: BLOOD SPECIMENOrdering Facility: [facility] Address: [address] [place] [address] Result Comment: Breana mated Glomerular Filtration Rate (eGFR) is calculated using the 2020 CKD-EPI creatinine equation. This equation utilizes serum creatinine, sex, and age as parameters. The creatinine assay has traceable calibration to isotope dilution-mass spectrometry. Refer to KDIGO guidelines for clinical interpretation. In patients with unstable renal function, e.g. those with acute kidney injury, the eGFR may not accurately reflect actual GFR. Performed By: #### 2 4323-8 ####[facility] LABORATORYCLIA [id number] [place] [address] [place] Glucose [Mass/Vol] 90 mg/dL Normal 74-99 [facility] Comment on above: Order Comment: Poloi men Type: BLOOD SPECIMENOrdering Facility: [facility] Address: [address] [place] [address] Result Comment: The Canadian Diabetes Association (ADA) provides guidance for cutoff values for fasting glucose and random glucose. The ADA defines fasting as no caloric intake for at least 8 hours. Fasting plasma glucose results between 100 to 125 mg/dL indicate increased risk for diabetes (prediabetes). Fasting plasma glucose results greater than or equal to 126 mg/dL meet the criteria for diagnosis of diabetes. In the absence of unequivocal hyperglycemia, results should be confirmed by repeat testing. In a patient with classic symptoms of hyperglycemia or hyperglycemic crisis, random plasma glucose results greater than or equal to 200 mg/dL meet the criteria for diagnosis of diabetes. Reference: Standards of Medical Care in Diabetes 2016, Canadian Diabetes Association. Diabetes Care. 2016.39(Suppl 1). Performed By: #### 2 4323-8 ####[facility] LABORATORYCLIA [id number] [place] [address] [place] Potassium [Moles/Vol] 3.9 mmol/L Normal 3.7-5.1 [facility] Comment on above: Order Comment: Mani dia Type: BLOOD SPECIMENOrdering Facility: [facility] Address: [address] [place] [address] Performed By: #### 2 4323-8 ####[facility] LABORATORYCLIA [id number] [place] [id number] [place] Protein [Mass/Vol] 5.6 g/dL Low 6.3-8.0 [facility] Comment on above: Order Comment: Mani men Type: BLOOD SPECIMENOrdering Facility: [facility] Address: [address] [place] [address] Performed By: #### 2 4323-8 ####[facility] LABORATORYCLIA [id number] [address] [id number] [place] Sodium [Moles/Vol] 141 mmol/L Normal 136-144 [facility] Comment on above: Order Comment: Speci men Type: BLOOD SPECIMENOrdering Facility: [facility] Address: [address] [address] Performed By: #### 2 4323-8 ####[facility] LABORATORYCLIA [id number] [place] [address] [place] Urea nitrogen [Mass/Vol] 3 mg/dL Low - [facility] Comment on above: Order Comment: Speci men Type: BLOOD SPECIMENOrdering Facility: [facility] Address: [address] [address] Performed By: #### 2 4323-8 ####[facility]IA [id number] [place] [address] [place] Folate SerPl-ncon 01-30-20 Folate [Mass/Vol] ng/mL Normal >4.7 [facility] Comment on above: Order Comment: Speci [facility] Type: BLOOD SPECIMENOrdering Facility: [facility] Address: [address] [address] Result Comment: A re sult of > 20 ng/mL is not necessarily indicative of a pathologic or treatable condition: it reflects a limitation of the test methodology. Assay reference range: 4.8 to 24.2 ng/mL. Suitable for detection of folate deficiency. Reference: Folate III (Folate III) [package insert V 1.0 Vietnamese]. [facility], [place], [place]: December 2014. Performed By: #### 2 284-8, 2132-9 ####[facility] LABORATORYCLIA [id number] [address] [place] Retics #on 01-29-2022 Reticulocytes (Bld) [#/Vol] 0.05178 10*3/uL Normal 0.018-0.[address] [facility] Comment on above: Order Comment: Speci men Type: BLOOD SPECIMENOrdering Facility: [facility] Address: [address] [address] Performed By: #### 5 8410-2, 42846-8 ####[facility] LABORATORYIA [id number] [facility] [place], [place] [address] [place] [address] [place] Reticulocytes (Bld) [#/Vol]o n 01-29-2022 Reticulocytes/100 RBC (Bld) 2.4 % High 0.4-2.0 [facility] Comment on above: Order Comment: Speci men Type: BLOOD SPECIMENOrdering Facility: [facility] Address: [address] [address] Performed By: #### 5 8410-2, 40244-8 ####[facility] LABORATORYCLIA [id number] [facility].[address] [place] Vit B12 SerPl-mCncon 022 Cobalamin (Vitamin B12) [Mass/Vol] pg/mL High 232-1245 [facility] Comment on above: Order Comment: Speci men Type: BLOOD SPECIMENOrdering Facility: [facility] Address: [address] [place] [address] Performed By: #### 2 284-8, 2132-9 ####[facility] [id number] [facility].[address] [place] CBC panel Auto (Bld)on 01-28 Erythrocyte distribution width (RBC) [Ratio] 12.9 % Normal 11.5-15.0 [facility] Comment on above: Order Comment: Speci men Type: BLOOD SPECIMENOrdering Facility: [facility] Address: [address] [place] [address] Performed By: #### 5 8410-2 ####[facility] [id number] [facility] [place] Hematocrit (Bld) [Volume fraction] 32.6 % Low 36.0-46.0 [facility] Comment on above: Order Comment: Speci men Type: BLOOD SPECIMENOrdering Facility: [facility] Address: [address] [place] [address] Performed By: #### 5 8410-2 ####[facility] LABORATORYIA [id number] [address] [place] Hemoglobin (Bld) [Mass/Vol] 10.8 g/dL Low 11.5-15.5 [facility] Comment on above: Order Comment: Speci men Type: BLOOD SPECIMENOrdering Facility: [facility] Address: [address] [address] Performed By: #### 5 8410-2 ####[facility] LABORATORYIA [id number] [address] [place] MCH (RBC) [Entitic mass] 32.2 pg Normal 26.0-34.0 [facility] Comment on above: Order Comment: Speci men Type: BLOOD SPECIMENOrdering Facility: [facility] Address: [address] [place] [address] Performed By: #### 5 8410-2 ####[facility] [id number] [address] [place] MCHC (RBC) [Mass/Vol] 33.1 g/dL Normal 30.5-36.0 [facility] Comment on above: Order Comment: Speci men Type: BLOOD SPECIMENOrdering Facility: [facility] Address: [address] [place] [address] Performed By: #### 5 8410-2 ####[facility] LABORATORYIA [id number] [address] [place] MCV (RBC) [Entitic vol] 97.3 fL Normal 80.0-100.0 [facility] Comment on above: Order Comment: Speci men Type: BLOOD SPECIMENOrdering Facility: [facility] Address: [address] [place] [address] Performed By: #### 5 8410-2 ####[facility] [id number] [address] [place] Nucleated RBC (Bld) [#/Vol] 10*3/uL Normal <0.01 [facility] Comment on above: Order Comment: Speci men Type: BLOOD SPECIMENOrdering Facility: [facility] Address: [address] [address] Performed By: #### 5 8410-2 ####[facility] [id number] [place] [id number] [place] Platelet mean volume (Bld) [Entitic vol] 9.6 fL Normal 9.0-12.7 [facility] Comment on above: Order Comment: Speci men Type: BLOOD SPECIMENOrdering Facility: [facility] Address: [address] [address] Performed By: #### 5 8410-2 ####[facility] [id number] [place] [address] [place] Platelets (Bld) [#/Vol] 74 10*3/uL Low 150-400 [facility] Comment on above: Order Comment: Speci men Type: BLOOD SPECIMENOrdering Facility: [facility] Address: [address] [place] [address] Result Comment: No c lot detected. Performed By: #### 5 8410-2 ####[facility] [id number] [place] [address] [place] RBC (Bld) [#/Vol] 3.35 10*6/uL Low 3.90-5.20 [facility] Comment on above: Order Comment: Speci men Type: BLOOD SPECIMENOrdering Facility: [facility] Address: [address] [address] Performed By: #### 5 8410-2 ####[facility] [id number] [place] [address] [place] WBC (Bld) [#/Vol] 2.38 10*3/uL Low 3.70-11.00 [facility] Comment on above: Order Comment: Speci men Type: BLOOD SPECIMENOrdering Facility: [facility] Address: [address] [place] [address] Performed By: #### 5 8410-2 ####[facility] LABORATORYIA [id number] [facility] [address] [place] ABD/PEL W IVCONon [address] ABD/PEL W IVCON * * *Final Report* * * DATE OF EXAM: Jan 28 2022 9:31AM [facility] 0530 - CT ABD/PEL W IVCON / PROCEDURE REASON: Nausea/vomiting * * * * Physician Interpretation * * * * EXAMINATION: CT ABDOMEN AND PELVIS WITH IV CONTRAST CLINICAL HISTORY: Nausea/vomiting TECHNIQUE: CT of the abdomen and pelvis was performed using standard technique, scanning from just above the dome of the diaphragm to the symphysis pubis. MQ: CTAP_3 Contrast: IV: 100 ml of Omnipaque 350 Oral: 450 ml of Omni 350 10-25ml diluted with water CT Radiation dose: Integrated Dose-length product (DLP) for this visit = 336 mGy*cm. CT Dose Reduction Employed: Automated exposure control(AEC) and iterative recon COMPARISON: 01/26/2022 RESULT: Liver: No mass. Biliary: No bile duct dilation. Gallbladder is unremarkable. Spleen: No mass. No splenomegaly. Pancreas: No mass or duct dilation. Adrenals: No mass. Kidneys: No mass, calculus or hydronephrosis. GI tract: Interval development of a short segment of small bowel intussusception (image 601:38) approximately 3-4 cm upstream from the area of small bowel intussusception seen on 01/26/2022. Additionally, the previously noted short segment small bowel intussusception located 3-4 cm downstream (image 601:42) of the above-noted intussusception appears relatively similar to 01/26/2022. An additional area of short segment small bowel intussusception is also noted approximately 2 cm downstream (image 601:44) from the above small bowel intussusception seen on image 601:42. No odette-enteric fat stranding relative to the three above-noted areas of small bowel intussusception. No dilated bowel. Enteric contrast is noted distal to the areas of intussusception. No pneumoperitoneum, pneumatosis, or portal venous gas. Postsurgical change from partial colectomy. An enteroenteric anastomotic staple line at the proximal small bowel is also noted. Lymph nodes: No abdominal or pelvic lymphadenopathy. Mesentery/Peritoneum: No ascites or mass. Retroperitoneum: No mass. Vasculature: - Abdominal aorta and iliac arteries: No aneurysm. - Celiac and SMA: Patent without stenosis. - Portal venous system (SMV, splenic vein, portal vein and branches): Patent. - Hepatic veins: Patent. Pelvis: No mass, ascites or fluid collection. Bones/Soft Tissues: No significant finding. Lower thorax: Unremarkable. Intermediate Card Tender (topogram) images: No additional significant findings. IMPRESSION: Three areas of short segment small bowel intussusception in the left upper quadrant (two are new from 01/26/2022 and one is relatively similar in appearance to 01/26/2022), as described. No evidence for associated bowel obstruction (enteric contrast is noted to be in the small bowel distal to these areas of intussusception). Staple Laster: CHENG Transcribe Date/Time: Jan 28 2022 2:48P Dictated by : DIMAS FULTON DO This examination was interpreted and the report reviewed and electronically signed by: DIMAS FULTON DO on Jan 28 2022 3:03PM EST [id number] Normal [facility] Comprehensive metabolic 2000 panelon 01-28-2022 Albumin [Mass/Vol] 2.8 g/dL Low 3.9-4.9 [facility] Comment on above: Order Comment: Speci men Type: BLOOD SPECIMENOrdering Facility: [facility] Address: [address] [address] Performed By: #### 2 4323-8 ####[facility] LABORATORYCLIA [id number] [place] [address] [place] ALP [Catalytic activity/Vol] 157 U/L High 34-123 [facility] Comment on above: Order Comment: Speci men Type: BLOOD SPECIMENOrdering Facility: [facility] Address: [address] [address] Performed By: #### 2 4323-8 ####[facility] LABORATORYCLIA [id number] [place] [address] [place] ALT [Catalytic activity/Vol] 103 U/L High 7-38 [facility] Comment on above: Order Comment: Speci men Type: BLOOD SPECIMENOrdering Facility: [facility] Address: [address] [address] Performed By: #### 2 4323-8 ####[facility] LABORATORYIA [id number] [place] [address] [place] Anion gap [Moles/Vol] 7 mmol/L Low 9-18 [facility] Comment on above: Order Comment: Speci men Type: BLOOD SPECIMENOrdering Facility: [facility] Address: [address] [address] Performed By: #### 2 4323-8 ####[facility] LABORATORYIA [id number] [place] [id number] [place] AST [Catalytic activity/Vol] 179 U/L High 13-35 [facility] Comment on above: Order Comment: Speci men Type: BLOOD SPECIMENOrdering Facility: [facility] Address: [address] [address] Performed By: #### 2 4323-8 ####[facility] LABORATORYIA [id number] [place] [address] [place] Bilirubin [Mass/Vol] 0.4 mg/dL Normal 0.2-1.3 [facility] Comment on above: Order Comment: Speci men Type: BLOOD SPECIMENOrdering Facility: [facility] Address: [address] [place] [address] Performed By: #### 2 4323-8 ####[facility] LABORATORYIA [id number] [place] [address] [place] Calcium [Mass/Vol] 7.4 mg/dL Low 8.5-10.2 [facility] Comment on above: Order Comment: Speci men Type: BLOOD SPECIMENOrdering Facility: [facility] Address: [address] [place] [address] Performed By: #### 2 4323-8 ####[facility] LABORATORYIA [id number] [place] [address] [place] Chloride [Moles/Vol] 106 mmol/L High 97-105 [facility] Comment on above: Order Comment: Speci men Type: BLOOD SPECIMENOrdering Facility: [facility] Address: [address] [place] [address] Performed By: #### 2 4323-8 ####[facility] LABORATORYCLIA [id number] [place] [address] [place] CO2 [Moles/Vol] 26 mmol/L Normal 22-30 [facility] Comment on above: Order Comment: Speci men Type: BLOOD SPECIMENOrdering Facility: [facility] Address: [address] [place] [address] Performed By: #### 2 4323-8 ####[facility]ITALCLIA [id number] [place] [address] [place] Creatinine [Mass/Vol] 0.73 mg/dL Normal 0.58-0.96 [facility] Comment on above: Order Comment: Speci men Type: BLOOD SPECIMENOrdering Facility: [facility] Address: [address] [place] [address] Performed By: #### 2 4323-8 ####[facility] LABORATORYIA [id number] [place] [address] [place] ESTIMATED GLOMERULAR FILTRATION RATE 109 mL/min/1.73m??? Normal >=60 [facility] Comment on above: Order Comment: Speci men Type: BLOOD SPECIMENOrdering Facility: [facility] Address: [address] [place] [address] Result Comment: Breana mated Glomerular Filtration Rate (eGFR) is calculated using the 2020 CKD-EPI creatinine equation. This equation utilizes serum creatinine, sex, and age as parameters. The creatinine assay has traceable calibration to isotope dilution-mass spectrometry. Refer to KDIGO guidelines for clinical interpretation. In patients with unstable renal function, e.g. those with acute kidney injury, the eGFR may not accurately reflect actual GFR. Performed By: #### 2 4323-8 ####[facility] LABORATORYCLIA [id number] [place] [address] [place] Glucose [Mass/Vol] 122 mg/dL High 74-99 [facility] Comment on above: Order Comment: Speci men Type: BLOOD SPECIMENOrdering Facility: [facility] Address: [address] [place] [address] Result Comment: The [place] Diabetes Association (ADA) provides guidance for cutoff values for fasting glucose and random glucose. The ADA defines fasting as no caloric intake for at least 8 hours. Fasting plasma glucose results between 100 to 125 mg/dL indicate increased risk for diabetes (prediabetes). Fasting plasma glucose results greater than or equal to 126 mg/dL meet the criteria for diagnosis of diabetes. In the absence of unequivocal hyperglycemia, results should be confirmed by repeat testing. In a patient with classic symptoms of hyperglycemia or hyperglycemic crisis, random plasma glucose results greater than or equal to 200 mg/dL meet the criteria for diagnosis of diabetes. Reference: Standards of Medical Care in Diabetes 2016, [place] Diabetes Association. Diabetes Care. 2016.39(Suppl 1). Performed By: #### 2 4323-8 ####[facility] LABORATORYCLIA [id number] [place] [id number] [place] Potassium [Moles/Vol] 3.6 mmol/L Low 3.7-5.1 [facility] Comment on above: Order Comment: Mani dia Type: BLOOD SPECIMENOrdering Facility: [facility] Address: [place] [address] Performed By: #### 2 4323-8 ####[facility] LABORATORYCLIA [id number] [place] [address] [place] Protein [Mass/Vol] 5.1 g/dL Low 6.3-8.0 [facility] Comment on above: Order Comment: Speci men Type: BLOOD SPECIMENOrdering Facility: [facility] Address: [address] [place] [address] Performed By: #### 2 4323-8 ####[facility] [id number] [place] [address] [place] Sodium [Moles/Vol] 139 mmol/L Normal 136-144 [facility] Comment on above: Order Comment: Speci men Type: BLOOD SPECIMENOrdering Facility: [facility] Address: [address] [place] [address] Performed By: #### 2 4323-8 ####[facility] LABORATORYCLIA [id number] [place] [address] [place] [facility] Urea nitrogen [Mass/Vol] 5 mg/dL Low 7- [facility] Comment on above: Order Comment: Speci men Type: BLOOD SPECIMENOrdering Facility: [facility] Address: [address] [place] [address] Performed By: #### 2 4323-8 ####[facility] LABORATORYCLIA [id number] [place] [address] [place] ETHYL GLUCURONIDE UR SCRon 1 03-31-2021 ETHYL GLUCURONIDE UR SCR Negative Normal Cutoff 500 [facility] Comment on above: Order Comment: Speci men Type: URINE SPECIMENOrdering Facility: [facility] Address: [address] [place] [address] Result Comment: INTE RPRETIVE INFORMATION: Ethyl Glucuronide Screen with Reflex to Confirmation, Urine Ethyl glucuronide is a direct metabolite of ethanol and can be detected up to 80 hours in urine after ethanol ingestion. The cutoff for positive by immunoassay is set at 500 ng/mL. A positive result will be confirmed by liquid chromatography tandem mass spectrometry (LC-MS/MS). Performed By: [facility] [address] [place] [address] Merchandising Specialist: Phan Beard MD, PhD Performed By: #### U EGLUC ####[facility] LABORATORIESIA [id number] [place] [address] NUTRITIONon 01-28-2022 NUTRITION HNO ID: [id number] Author: Damari Henning RD Service: Nutrition Therapy Author Type: Registered Dietitian Type: Nutrition Filed: 01/28/2022 6:57 PM Note Text: NUTRITION THERAPY INITIAL ASSESSMENT SERVICE DATE: 01/28/2022 SERVICE TIME: 1402 Nutrition Assessment: Recommended Malnutrition Diagnosis: Mild Protein-Calorie Malnutrition In the context of: Acute Illness or Injury Based on: Insufficient Energy Intake Nutrition Diagnosis: Problem: Suboptimal protein/energy intake Related to: Inability to consume sufficient nutrients As evidenced by: Patient/family self-report;Medical condition Estimated kilocalorie needs: 1591-4176 Calorie Calculation Method: 25-30 kcals/kg Estimated protein needs (grams): 60-90 Grams protein determined by: 1.0 - 1.5 g/kg Care Plan: Continue current diet Supplements: Ensure Clear Monitor and Evaluation: Meet greater than 75% of estimated needs;Monitor fluid/electrolyte balance;Monitor labs, I/Os, vital signs, weight;Monitor bowel function Discharge Recommendations: Diet;Oral Supplements Diet: Gastrointestinal Soft Oral Supplements: Ensure HPI: Per Radha Cooley MD 01/28: 36 year old female who presents with upper abdominal pain, nausea, vomiting for last 2-3 weeks. PMH significant for CVID, CKD, seizures, hypothyroidism, depression, total colectomy in 2016 with ileoanal anastomosis in 2017. Problem List: Right upper quadrant abdominal pain Abdominal pain, generalized Anxiety ; Common variable agammaglobulinemia Nausea AND vomiting ;Transaminitis Intussusception ; Gastric Bezoar Intake History: Nutrition Intake Prior to Admission: Less than 50% estimated energy needs greater than or equal to 5 days Current Nutrition Intake: Less than 75% estimated energy needs Current Intake Over time: (~ 1 day) Per discussion with patient she has been unable to keep anything down (food or liquids) for 1-1.5 months. States she typically takes MVI AND supplements however has been unable to, could barely keep her medications down prior to admission. Agreeable to try a supplement shake. At time of visit patient had tolerated broth, jello AND diet was just advanced to solid foods for lunch today AND she ate most of her mashed potatoes, AND had kept this down. Was attempting to drink potassium AND it was making her feel sick. No meals recorded in [facility] thus far. Diet Orders (From admission, onward) Start Ordered 01/28/22 1000 DIET GASTRO INTESTINAL START NOW Question: Gastro Intestinal Answer: FIBER CONTROLLED 01/28/22 0953 Anthropometrics: Height: 154.9 cm (5' 1 ) Weight: 60.1 kg (132 lb 7.9 oz) Dosing Weight: 60.1 kg (132 lb 7.9 oz) Usual Weight: 61.2 kg (135 lb) no record of this weight in [facility], per patient ~1.5 weeks ago she weighed this however per EPIC she weighed 129lbs ~ 1 week ago Usual Weight Obtained From: Patient Body mass index is 25.03 kg/m?. Overweight Weight change percentage over time: stable per [facility] Physical Exam: Subcutaneous fat loss: No fat loss Muscle loss: No muscle loss Potential micronutrient deficiency: No deficiency identified (hx vitamin D AND B12 Deficiency however most recent labs wnl) Edema/Ascites: No edema GI Symptoms: Nausea;Vomiting;Abdominal pain Functional Status: Regressed Potential Signs of Inflammation: Hypoalbuminemia;Leukopenia; Chronic condition Common variable agammaglobulinemia, CKD, POTS, Hepatitis B MNT Billing: $ Initial Assessment: 1-15 minutes SIGNATURE: Damari Henning RD PATIENT NAME: Ben Barr DATE: January 28, 2022 TIME: 6:[address] [facility] CHRIS BY IFA SCREENon 01-28-20 22 CHRIS PATTERN Nuclear homogenous Normal [facility] Comment on above: Order Comment: Speci men Type: BLOOD SPECIMENOrdering Facility: [facility] Address: [address] [place] [address] Performed By: #### 2 9374-6, 41699-9, 41952-7, 37782-7, 49215-9, ANAIFS, 99918-1, 94990-0, 26798-5, 63478-9, 04512-8 ####[facility] LABCLIA [id number] [place] [address] [place] CHRIS TITER 1:[address] [facility] Comment on above: Order Comment: Speci [facility] Type: BLOOD SPECIMENOrdering Facility: [facility] Address: [address] [place] [address] Performed By: #### 2 9374-6, 86819-3, 51377-9, 77535-5, 08048-6, ANAIFS, 32916-2, 50181-2, 52524-2, 38856-4, 76507-8 ####[facility] LABCLIA [id number] [place] [address] [place] Nuclear Ab IF (S) [Titer] Positive Abnormal Negative [facility] Comment on above: Order Comment: Speci men Type: BLOOD SPECIMENOrdering Facility: [facility] Address: [address] [place] [address] Result Comment: Anti -nuclear antibody test is used as an aid in diagnosis of systemic autoimmune diseases. Where positive and clinically warranted, follow-up using disease-specific testing is recommended. Low positive titers are not uncommon with advanced age, certain chronic infections, and malignancies among others. Test methodology: Indirect fluorescence immunoassay (IFA) using HEp-2 cells. Performed By: #### 2 9374-6, 35128-9, 13686-6, 93771-4, 12529-6, ANAIFS, 55913-5, 16516-0, 45496-1, 67243-0, 53934-9 ####[facility] LABCLIA [id number] [place] [id number] [place] CASE MGT INIT CHADDon 2021 CASE MGT INIT CHADD HNO ID: [id number] Author: DOUG Rivera Service: Social Work Author Type: Cured Meat Packing Supervisor Type: Care Mgt Initial Assessment Filed: 01/27/2022 9:28 AM Note Text: CARE MANAGEMENT: ASSESSMENT AND DISCHARGE PLAN SERVICE DATE: January 27, 2022 SERVICE TIME: 9:27 AM PRIMARY CARE PHYSICIAN: Lizy Soria DO Primary Contact: Extended Emergency Contact Information Primary Emergency Contact: Callie Barr Mobile Relation: Significant other ADMISSION STATUS: Observation Insurance Provider: [employer] MEDICAID NEEDS PRIOR TO DISCHARGE Needs Prior to Discharge: None POTENTIAL TRANSITION PLANS Based on clinical judgement, Care Management will address the following needs: No transitional/discharge planning needs at this time Patient's perception of need for this admission: ADVANCE DIRECTIVES Current Advance Directive: Health Care Power of Auto Dealership Porter In Chart: Yes Up To Date and Valid: Yes MS/BEHAVIOR Baseline Mental Status Prior to this Illness what was the patient's Baseline Mental Status?: Alert AND Oriented Prior to this illness, has anyone described the patient having any of the following behaviors?: Not Applicable Relationship of the informant to the patient:: Self READMISSION Last Discharge Date: 07/20/16 Is this Within the Past 30 days? 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 Independent at home, occassionally needs help with IADL's. Are there any potential risks or gaps identified by risk/functional/fall,etc. scores in the EMR?: No Any potential risks related to substance abuse and/or behavioral health?: No Based on clinical judgement, Care Management will address the following needs: No transitional/discharge planning needs at this time CAREGIVER ASSESSMENT No medical discharge barriers identified at this time. No social discharge barriers identified at this time. No behavioral/cognitive discharge barriers identified at this time. No functional discharge barriers identified at this time. FREEDOM OF CHOICE EXPLAINED: [place] of Choice Given: No Reason Not Given: No placements necessary Are you interested in bedside delivery of your medications? No ASSESSMENT AND PLAN: Patient lives with spouse and 2 teenage children, independent at home, no discharge needs anticipated. Spouse will transport home. Here with abdominal pain, general surgery on consult. SIGNATURE: DOUG Rivera PATIENT NAME: Ben Barr DATE: January 27, 2022 TIME: 9:27 AM CONTACT #: [phone] [facility] CMV DNA DETECTION AND QUANTo n 01-27-2022 CMV DNA JEAN+probe Qn (P) Not detected Normal CMV DNA Not Detected [facility] Comment on above: Order Comment: Speci men Type: BLOOD SPECIMENOrdering Facility: [facility] Address: [address] [place] [address] Performed By: #### C MVQNT ####[facility] LABCLIA [id number] [place] [address] [place] CONSULTon 01-27-2022 CONSULT HNO ID: [id number] Author: Paulina Pate APRN.MANAGER TRADING Service: Gastroenterology Author Type: Nurse Practitioner Type: Consults Filed: 01/27/2022 4:29 PM Note Text: CONSULT: GI SERVICE SERVICE DATE: 01/27/2022 SERVICE TIME: 1540 REASON FOR CONSULT: intractable nausea/vomiting, bezoar seen on recent EGD, intussusception on CT, h/o total colectomy, also has transaminitis REQUESTING PHYSICIAN: Dr Conteh PRIMARY CARE PHYSICIAN: Lizy Soria, DO Paul Ms. Barr is a 36 year old female with complicated PMHx/PSHx including CVID (on IgG infusions), seizures, hypothyroidism, POTS, intussusception s/p (2004) bowel resection, slow transit constipation s/p total abdominal colectomy (03/10/15), legionnaires disease (2005), prior mercury/lead/arsenic toxicity s/p chelation therapy, gastric bezoar who presents for nausea, vomiting, and abdominal pain. Endorses chronic nausea and vomiting that have worsened over the last two weeks. She vomits after any solid intake. Endorses daily NBNB vomiting. Endorses generalized abdominal pain, most severe in epigastrium. Has been taking zofran without improvement. She also endorses small mucous like stools, has loose stools at baseline. States she has not been able to have significant stool in long time, she did the other day was very small and pebble like. She denies fevers, chills, hematemesis, melena or hematochezia. Denies recent travel, sick contacts, concerns for undercooked/ foods. Denies smoking. Denies illicit drug use. Denies alcohol use. Recent GI workup: EGD 01/02/2022: Normal esophagus, antral scar mild gastric erythema and small semisolid gastric bezoar, random biopsies obtained to rule out h pylori, normal duodenum, random biopsies to rule out celiac disease Colonoscopy 01/02/2022: Evidence of prior subtotal colectomy with end to end ileorectal anastomosis, normal new terminal ileum, normal colonic mucosa, residual solid stool noted, small nonbleeding internal and external hemorrhoids Labs: WBC 4.07, Hgb 14.4, hct 42.1, lt 15, MCV 95.2, BUN 12, Cr 0.94, Tbili 0.8, ALP 205, ALT 182, AST 334 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) Hypogammaglobulinaemia, unspecified Hypothyroid Intussusception (HCC) as child Low back pain PMS (premenstrual syndrome) POTS (postural orthostatic tachycardia syndrome) POTS (postural orthostatic tachycardia syndrome) Thrombocytopenia (HCC) Tobacco abuse Vitamin D deficiency PAST SURGICAL HISTORY Procedure Laterality Date COLONOSCOPY FLX DX W/COLLJ SPEC WHEN PFRMD 2011 Colonoscopy COLONOSCOPY FLX DX W/COLLJ SPEC WHEN PFRMD Colonoscopy ESOPHAGOGASTRODUODENOSCOPY TRANSORAL DIAGNOSTIC 09/2008 neg duodenal bx ESOPHAGOGASTRODUODENOSCOPY TRANSORAL DIAGNOSTIC 12/17/14 EGD PAST SURGICAL HISTORY OF 2005 partial bowel resection PAST SURGICAL HISTORY OF ingrown toenails removed FAMILY HISTORY Problem Relation Age of Onset Diabetes Mother other (Raynauds [Other]) Mother Hyperlipidemia Mother Hypertension Mother Alcohol abuse Father Gout Father other (POTS [Other]) Sister both sisters other (AVM [Other]) Sister Cancer Paternal Grandmother lung; smoker other (healthy [Other]) Daughter Diabetes Maternal Aunt type 1 Thyroid Maternal Aunt grave's Thyroid Maternal Aunt Neel's Thyroid Maternal Uncle hypothyroid Social History Tobacco Use Smoking status: Former Packs/day: 0.50 Years: 6.00 Pack years: 3.00 Types: Cigarettes Quit date: 12/20/2013 Years since quittin.1 Smokeless tobacco: Never Substance Use Topics Alcohol use: No Drug use: No acetylcholine 10% solution - cchs compounding, 20 mL, IRRIGATION, ONE TIME, 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, 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 Cholecalciferol, Vitamin D3, 125 mcg (5,000 unit) cap, TAKE ONE CAPSULE BY MOUTH ONCE DAILY WITH FOOD, Disp: , Rfl: fluticasone (FLONASE) 50 mcg/actuation nasal spray, Use in the nose., Disp: , Rfl: omeprazole (PRILOSEC) 40 mg capsule, Take 40 mg by mouth once daily., Disp: , Rfl: MAG64 [address] tablet, TAKE ONE TABLET BY MOUTH DAILY WITH VITAMIN D3, Disp: , Rfl: LORazepam (ATIVAN) 0.5 mg, Take 0.5 mg by mouth daily at bedtime., Disp: , Rfl: propranolol ER (INDERAL LA) 60 mg 24 hr capsule, Take 1 capsule by mouth once daily., Disp: 30 capsule, Rfl: 2 fluconazole (DIFLUCAN) 100 mg tablet, Take 1 tablet by mouth once daily., Disp: 30 tablet, Rfl: 5 busPIRone (BUSPAR) 10 mg tablet, Take 30 mg by mouth., Disp: , Rfl: FLUoxetine (PROZAC) 20 mg capsule, Take 20 mg by mouth., Disp: , Rfl: immune globulin, human,, IgG, (GAMMAGARD LIQUID) 10 % soln, Inject 450 mL intravenously every 3 weeks., Disp: 450 mL, Rfl: 11 0.9 % sodium chlorid (more content not included)... [facility] CONSULT HNO ID: [id number] Author: Virgil Delgado PA-C Service: General Surgery Author Type: Physician Account Processor Type: Consults Filed: 01/27/2022 2:49 PM Note Text: Attestation signed by Josh Hope DO at 01/27/2022 4:59 PM Attending Note: Garcia findings confirmed. Patient examined. Discussed with the physician media center assistant and the patient. Plan as outlined. Complex med/surg history. Consulted for intussusception. CT reviewed, probably transient. In no acute distress. Mother at bedside. Recommend repeat CT tomorrow. No SBFT on the weekend. Desirae Hope DO SURGICAL SERVICES INITIAL CONSULT SERVICE DATE: 01/27/2022 SERVICE TIME: 0900 REASON FOR CONSULT: intussuception, h/o total abdominal colectomy with ileorectal anastomosis and diverting ileostomy REQUESTING PHYSICIAN: Dedrick Shea MD PRIMARY CARE PHYSICIAN: Lizy Soria DO Subjective HISTORY OF PRESENT ILLNESS: Ms. Barr is a 36 year old female with a PMH of POTS, pseudoseizures, pituitary tumor, CVID, anxiety/depression, chronic abdominal pain, and chronic constipation s/p total colectomy who presents for 6 weeks of nausea, vomiting, inability to keep anything down, change in bowel habits. She was sent to the ED by her oncologist. The patient states she has not been able to really eat, drink, or keep anything down for about 6 weeks. Past surgical history of robotic assisted laparoscopic total abdominal colectomy with ileorectal anastomosis and diverting ileostomy in February 2015 for slow transit constipation. She then had a closure of ileostomy, laparotomy, takedown of extensive small bowel adhesions and wound revision in June of 2015. Of note, she also had an abdominal surgery for intussusception in 2005 at [facility]. She states that she has not been having normal Bms for several weeks. They have just been mostly small amounts of mucous. She states she is so weak from not being ady to eat that she struggles with the stairs. Nothing like this has happened before. She had an endoscopy and flex sig on 01/02/2022 at [place] which showed a gastric Bezoar and she was told to drink coke 2-3 times a day but was not able to due to n/v. She is scheduled for an EGD next week to have the Bezoar removed. Overall has abdominal pain and distension, worse in her LUQ. Nothing makes it better or worse. Denies any fever/chills, CP, SOB, or dysuria. 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) Hypogammaglobulinaemia, unspecified Hypothyroid Intussusception (HCC) as child Low back pain PMS (premenstrual syndrome) POTS (postural orthostatic tachycardia syndrome) POTS (postural orthostatic tachycardia syndrome) Thrombocytopenia (HCC) Tobacco abuse Vitamin D deficiency PAST SURGICAL HISTORY Procedure Laterality Date COLONOSCOPY FLX DX W/COLLJ SPEC WHEN PFRMD 2011 Colonoscopy COLONOSCOPY FLX DX W/COLLJ SPEC WHEN PFRMD Colonoscopy ESOPHAGOGASTRODUODENOSCOPY TRANSORAL DIAGNOSTIC 09/2008 neg duodenal bx ESOPHAGOGASTRODUODENOSCOPY TRANSORAL DIAGNOSTIC 12/17/14 EGD PAST SURGICAL HISTORY OF 2005 partial bowel resection PAST SURGICAL HISTORY OF ingrown toenails removed FAMILY HISTORY Problem Relation Age of Onset Diabetes Mother other (Raynauds [Other]) Mother Hyperlipidemia Mother Hypertension Mother Alcohol abuse Father Gout Father other (POTS [Other]) Sister both sisters other (AVM [Other]) Sister Cancer Paternal Grandmother lung; smoker other (healthy [Other]) Daughter Diabetes Maternal Aunt type 1 Thyroid Maternal Aunt grave's Thyroid Maternal Aunt Neel's Thyroid Maternal Uncle hypothyroid Social History Tobacco Use Smoking status: Former Packs/day: 0.50 Years: 6.00 Pack years: 3.00 Types: Cigarettes Quit date: 12/20/2013 Years since quittin.1 Smokeless tobacco: Never Substance Use Topics Alcohol use: No Drug use: No acetylcholine 10% solution - cchs compounding, 20 mL, IRRIGATION, ONE TIME, 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 Normal [facility] Centromere Ab IF Ql (S)on Centromere Ab Qn (S) <0.2 Normal <1.0 [facility] Comment on above: Order Comment: Speci men Type: BLOOD SPECIMENOrdering Facility: [facility] Address: [address] [place] [address] Result Comment: Anti -centromere antibody is used as in aid in diagnosis of systemic sclerosis. Clinical correlation is required. Test Methodology: Multiplex flow immunoassay. Performed By: #### 2 9374-6, 61532-1, 55991-7, 60521-6, 00312-2, ANAIFS, 23939-2, 54037-7, 69095-6, 31710-8, 74377-1 ####[facility] LABIA [id number] [place] [address] [place] [facility] CENTROMERE AB QUAL Negative Normal Negative [facility] Comment on above: Order Comment: Speci men Type: BLOOD SPECIMENOrdering Facility: [facility] Address: [address] [place] [address] Performed By: #### 2 9374-6, 18335-5, 27496-4, 54351-1, 22182-1, ANAIFS, 65101-0, 12272-2, 41133-8, 63257-5, 14516-8 ####[facility] LABIA [id number] [address] [place] Chromatin Ab Qnon 01-27-2022 CHROMATIN AB QUAL Negative Normal Negative [facility] Comment on above: Order Comment: Speci men Type: BLOOD SPECIMENOrdering Facility: [facility] Address: [address] [place] [address] Performed By: #### 2 9374-6, 89286-9, 60228-6, 73461-1, 81287-1, ANAIFS, 10466-1, 28885-2, 01279-7, 44531-0, 60947-8 ####[facility] LABIA [id number] [place] [address] [place] Chromatin Ab SerPl-aCncon Chromatin Ab Qn 0.6 AI Normal <1.0 [facility] Comment on above: Order Comment: Speci men Type: BLOOD SPECIMENOrdering Facility: [facility] Address: [address] [place] [id number] Result Comment: Test Methodology: Multiplex flow immunoassay. Performed By: #### 2 9374-6, 30819-0, 42572-2, 17588-0, 36769-1, ANAIFS, 38403-0, 70218-0, 52213-6, 75523-9, 89333-3 ####[facility] LABIA [id number] [address] OF [facility] ED NOTEon 01-27-2022 ED NOTE HNO ID: [id number] Author: Jackie Edge RN Service: ? Author Type: Registered Nurse Type: ED Notes Filed: 01/27/2022 12:31 PM Note Text: Report called to Karishma LOMELI on 3E. Patient is aware that she is being admitted and awaiting to her from [facility]. [facility] ED NOTE HNO ID: [id number] Author: Jena Murphy RN Service: ? Author Type: Registered Nurse Type: ED Notes Filed: 01/27/2022 7:12 AM Note Text: Report given to ARMANI Mejia [facility] BEATRIZ Jo1 Ab Ser-aCncon 2021 Brigida-1 extractable nuclear Ab Qn (S) <0.2 Normal <1.0 [facility] Comment on above: Order Comment: Speci men Type: BLOOD SPECIMENOrdering Facility: [facility] Address: [address] [place], [place] [address] Performed By: #### 2 9374-6, 63726-8, 95115-0, 27757-7, 70817-6, ANAIFS, 13652-7, 01952-4, 83010-5, 87580-7, 45367-5 ####[facility] LABIA [id number] [address] [place] SENIOR SQL DBA Ab Ser-aCncon 2021 Ribonucleoprotein extractable nuclear Ab Qn (S) <0.2 Normal <1.0 [facility] Comment on above: Order Comment: Speci men Type: BLOOD SPECIMENOrdering Facility: [facility] Address: [address] [place] [address] Performed By: #### 2 9374-6, 96939-0, 91129-3, 23223-8, 89606-1, ANAIFS, 32273-8, 50488-5, 43012-2, 58071-7, 67163-6 ####[facility] LABCLIA [id number] [place] [address] [place] Ribonucleoprotein extractable nuclear Ab Qn (S) 0.3 AI Normal <1.0 [facility] Comment on above: Order Comment: Speci men Type: BLOOD SPECIMENOrdering Facility: [facility] Address: [address] [place] [address] Performed By: #### 2 9374-6, 87803-2, 63663-4, 88308-7, 91567-6, ANAIFS, 78405-6, 91453-9, 73615-5, 22170-3, 80538-2 ####[facility] LABCLIA [id number] [address] [place] BEATRIZ SM IgG Ser-aCncon 2021 Reyes extractable nuclear IgG Qn (S) <0.2 [address] <1.0 [facility] Comment on above: Order Comment: Speci men Type: BLOOD SPECIMENOrdering Facility: [facility] Address: [address] [place] [address] Performed By: #### 2 9374-6, 52313-1, 30515-7, 43030-0, 76688-6, ANAIFS, 42528-8, 14139-1, 06010-9, 62345-0, 69528-4 ####[facility] LABCLIA [id number] [place] [address] [place] BEATRI[place] SS-A Ab Ser-aCncon 01-27 Sjogrens syndrome-A extractable nuclear Ab Qn (S) 0.4 AI Normal <1.0 [facility] Comment on above: Order Comment: Speci men Type: BLOOD SPECIMENOrdering Facility: [facility] Address: [address] [address] Result Comment: Test Methodology: Multiplex flow immunoassay. Performed By: #### 2 9374-6, 01680-7, 60057-7, 30116-3, 19363-1, ANAIFS, 54404-0, 30224-1, 75402-4, 93936-8, 56996-7 ####[facility] [id number] [address] [facility] [place] SS-B Ab Ser-aCncon 01-27 Sjogrens syndrome-B extractable nuclear Ab Qn (S) <0.2 Normal <1.0 [facility] Comment on above: Order Comment: [facility] Type: BLOOD SPECIMENOrdering Facility: [facility] Address: [address] [place] [address] Result Comment: Anti -SSB (anti-La) antibody is used as an aid in diagnosis of a variety of systemic autoimmune diseases, especially for Sjogren's syndrome and systemic lupus erythematosus. Clinical correlation is required. Test Methodology: Multiplex flow immunoassay. Performed By: #### 2 9374-6, 05780-8, 61439-7, 62333-3, 76990-9, ANAIFS, 81156-5, 24354-6, 75555-7, 78763-6, 52020-6 ####[facility] [id number] [address] [facility] HFE (HEMOCHROMATOSIS)on INTERPRETATION (HEMDNA) Normal 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 This makes a diagnosis of hereditary hemochromatosis very unlikely. Other forms of iron overload and other types of hemochromatosis exist. The sample is negative for the C282Y and S65C variants. Methodology: Patient DNA is evaluated for C282Y (c.845G>A, p.Fkr559Opq, NM_000410.3), H63D (c.187C>G, p.Vdl23Yjg, NM_000410.3) and S65C variant (c.193A>T, p.Qej60Akf, NM_000410.3) missense variants in the HFE gene (NM_000410.3, GRCh37(hg19)) by multiplex polymerase chain reaction (PCR) followed by melting curve analysis. Disclaimer: This test was developed and its performance characteristics determined by [facility] Medicine [place] ([facility]). It has not been cleared or approved by the FDA. [facility] is regulated under CLIA as certified to perform high- complexity testing. This test is used for clinical purposes. It should not be regarded as investigational or for research. Testing and interpretation performed at [facility], [address] [place] [address]. CLIA Number: [id number] As reviewed by Jaqueline Oropeza, PhD, [facility] Performed By: #### H EMDNA ####[facility] [id number] [place] [address] [place] HISTORY PHYSICALon 2 HISTORY PHYSICAL HNO ID: [id number] Author: Dedrick Shea MD Service: Hospital Medicine Author Type: Physician Type: HANDP Filed: 01/27/2022 11:52 AM Note Text: DEPARTMENT OF HOSPITAL MEDICINE SERVICE DATE: 01/27/2022 Code Status: Not on file SERVICE TIME: 9:53 AM Primary Care Physician: Lizy Soria, NIGHT AND WEEKEND COVERAGE: LUCIA COVERAGE: Days: [phone], please contact via Digital [employer] Nights: floor: please page [facility] Hospitalist night cover [phone] - 4th floor: please page Hospitalist night cover [phone] - 5th floor: please page [facility] [phone] This is a 36 year old female who presents with upper abdominal pain, nausea, vomiting for last 2-3 weeks. 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 She was sent by her Hall Manager to the ED for the nausea, vomiting, abdominal pain. She was noted to have elevated liver enzymes and testing positive for Hepatitis B. Patient states that her nausea and abdominal pain are chronic but have worsened over the last 2 weeks. She has been unable to keep anything solid down. She states she was told she has a bezoar and was planned on getting an EGD on 02/01/2022. Of she has been vomiting almost everyday, nonbilious, non bloody, states the zofran she has at home is not helping. She also states that her bowel movements have changed, usually she has loose stools everyday but currently she is having small mucousy stools and feeling like she is not emptying completely. No blood in the stools. Her abdominal pain is generalized but worse in the upper abdomen. She denies fever but does have chills and night sweats. ED course: - VSS, afebrile, saturating well on RA - Labs: CMP: Na 135, ALP 205, AST 334, ALT 182, T bili 0.8 TSH 4.4 CBC unremarkable UA unremarkable - Imaging: - RUQ US Hepatic steatosis. No cholelithiasis or biliary ductal dilatation. - CT abd/pelvis 1. No acute findings are identified. 2. Nonobstructive short segment intussusception involving small bowel in the left abdomen which can be seen as a transient finding in adults. 3. Postsurgical changes. Received 4mg morphine, 500cc bolus, percocet 5, reglan 5mg in ED Admitted for observation REVIEW OF SYSTEM: Negative 12 point ROS except as per HPI Objective PHYSICAL EXAM: BP 125/92 Pulse 65 Temp (Src) 97.7 (Oral) Resp 16 Wt 129 lb (58.5kg) SpO2 95% LMP 01/14/2022 O2 Therapy: Room Air Physical Exam Performed: GENERAL: Alert, Mild Distress, Cooperative SKIN: Skin color, texture, turgor normal. No rashes or lesions. HEAD/SINUSES: No significant findings EYES: PERRLA, EOMI EARS: External ears normal, canals clear NOSE: Nares normal. Septum midline. OROPHARYNX: Lips, mucosa, and tongue normal. Teeth and gums normal. Oropharynx normal. NECK: No jugulovenous distention, No carotid bruits, Carotid pulse normal contour, Supple LUNGS: Lungs clear to auscultation, Good diaphragmatic excursion CARDIAC: Normal S1 and S2; no rubs, murmurs, or gallops ABDOMEN: Positive findings: tenderness: mild location: RUQ, LUQ, and generalized, soft, nondistended EXTREMITIES: Extremities normal, no deformities, edema, clubbing or skin discoloration. Good capillary refill., No ulcers NEURO: Grossly normal cognition, motor function, and cranial nerves III-XII PULSES: 2+ radial, 2+ carotid Lines, Drains, and Airways Line Duration Peripheral 01/26/22 1428 Short Right Antecubital 20 Gauge <1 day Reviewed lines and needs to be continued: REASONS: Intravenous fluids DATA: Diagnostic tests reviewed for today's visit: Most recent labs Most recent imaging CBC: Recent Labs 01/26/22 1419 WBC 4.07 RBC 4.42 HB 14.4 HCT 42.1 PLT 152 MCV 95.2 MCH 32.6 MPV 10.0 CMP: Recent Labs 01/26/22 1750 01/26/22 1419 NA -- 135* K -- 4.0 CHLOR -- 94* CO2 -- 26 BUN -- 12 CREAT -- 0.94 GLUC -- 119* TPROT -- 7.3 CA -- 9.5 TBILI -- 0.8 ALKPHOS -- 205* ALT -- 182* AST 334* -- ANION -- 15 Assessment/Plan Problem List Right upper quadrant abdominal pain POA: Yes Abdominal pain, generalized POA: Yes Anxiety POA: Yes Common variable agammaglobulinemia (HCC) POA: Yes Nausea AND vomiting POA: Yes Transaminitis POA: Yes Intussusception (HCC) POA: Yes #Intussusception #Gastric Bezoar Last EGD 12/23/2021 showed normal esophagus and a small semisolid gastric bezoar Flexible sigmoidoscopy at the time showed evidence of prior subtotal colectomy with end to end ileorectal anastomosis CT showed possible presence of intussusception Symptoms have been progressively worsening Continue with IV fluids Await final input from surgery Consult GI if necessary Will keep patient NPO except for essential medications Continue with IV fluid support Added Protonix and Tums Await final input from (more content not included)... Normal [facility] Brigida-1 extractable nuclear Ab Qn (S)on 01-27-2022 BRIGIDA 1 ANTIBODY QUAL Negative Normal Negative [facility] Comment on above: Order Comment: Mani dia Type: BLOOD SPECIMENOrdering Facility: [facility] Address: [address] [address] Result Comment: Anti -BRIGIDA-1 antibody is used as an aid in diagnosis of polymyositis and dermatomyositis especially with pulmonary involvement. A negative result cannot rule out polymyositis or dermatomyositis. Clinical correlation is required. Test Methodology: Multiplex flow immunoassay. Performed By: #### 2 9374-6, 11930-3, 43567-7, 59282-1, 46730-3, ANAIFS, 08981-0, 67676-3, 47606-8, 44903-3, 16775-4 ####[facility] [id number] [place] [address] [place] Mitochondria Ab IF Ql (S)on 01-27-2022 Mitochondria M2 Ab IA Qn (S) 6.6 Units Normal <=20.0 [facility] Comment on above: Order Comment: Mani dia Type: BLOOD SPECIMENOrdering Facility: [facility] Address: [address] [place] [address] Performed By: #### 1 7284-1 ####[facility] LABIA [id number] [place] [address] [place] Mitochondria M2 Ab Ql (S) Negative Normal Negative [facility] Comment on above: Order Comment: Mani dia Type: BLOOD SPECIMENOrdering Facility: [facility] Address: [address] [address] Result Comment: Anti -mitochondrial antibody test is used as an aid in diagnosis of primary biliary cholangitis. Clinical correlation is required. Performed By: #### 1 7284-1 ####[facility] LABIA [id number] [place] [address] [place] Nuclear Ab IA Ql (S)on 01-27 CHRIS BY EIA, QUAL Positive Abnormal Negative [facility] Comment on above: Order Comment: Speci men Type: BLOOD SPECIMENOrdering Facility: [facility] Address: [address] [place] [address] Result Comment: The qualitative antinuclear antibody screen test performed using enzyme immunoassay including the following antigens: dsDNA, histones, SS-A, SS-B, Sm, Sm/SENIOR SQL DBA, Scl-70, Brigida-1, and centromeric antigens. Performed By: #### 2 9374-6, 71182-8, 34389-6, 22729-7, 56158-8, ANAIFS, 82200-5, 08419-0, 11009-1, 71102-0, 99853-3 ####[facility] [id number] [place] [address] [place] Ribonucleoprotein extractabl e nuclear Ab Qn (S)on 01-27-2022 ANTI-SENIOR SQL DBA QUAL Negative Normal Negative [facility] Comment on above: Order Comment: Poloi ifeoma Type: BLOOD SPECIMENOrdering Facility: [facility] Address: [address] [place] [address] Performed By: #### 2 9374-6, 23200-0, 12334-0, 47241-9, 25593-1, ANAIFS, 27412-9, 23174-8, 70780-3, 16274-2, 78213-8 ####[facility] [id number] [place] [address] [place] RIBOSOMAL SENIOR SQL DBA QUAL Negative Normal Negative [facility] Comment on above: Order Comment: Speci men Type: BLOOD SPECIMENOrdering Facility: [facility] Address: [address] [place] [address] Result Comment: Anti -Ribosomal RNA (Ribosomal P) antibody is used as an aid in diagnosis of systemic autoimmune diseases especially systemic lupus erythematosus and mixed connective tissue disease. Cross-reactivity with Anti-reyes antibody is not uncommon. Clinical correlation is required. Test Methodology: Multiplex flow immunoassay. Performed By: #### 2 9374-6, 44858-1, 08638-4, 89919-9, 94561-2, ANAIFS, 40192-0, 80163-1, 71119-2, 60572-0, 56046-6 ####[facility] LABCLIA [id number] [address] [place] SCL-70 extractable nuclear I gG IA Qn (S)on 01-27-2022 SCLERODERMA AB QUAL Negative Normal Negative [facility] Comment on above: Order Comment: Speci men Type: BLOOD SPECIMENOrdering Facility: [facility] Address: [address] [place] [address] Performed By: #### 2 9374-6, 60941-3, 34991-5, 79013-2, 35847-6, ANAIFS, 35259-6, 60007-8, 56414-7, 58726-1, 24869-2 ####[facility] LABIA [id number] [address] [facility] SCLERODERMA IGG AB <0.2 Normal <1.0 [facility] Comment on above: Order Comment: Mani dia Type: BLOOD SPECIMENOrdering Facility: [facility] Address: [address] [place] [address] Result Comment: Scl- 70/Scleroderma antibody test is used as an aid in diagnosis of systemic sclerosis especially the diffuse cutaneous form. A negative result cannot rule out systemic sclerosis. The final interpretation should consider clinical picture and other test results such as anti-centromere antibody. Test Methodology: Multiplex flow immunoassay. Performed By: #### 2 9374-6, 26692-1, 12467-3, 76801-8, 70091-6, ANAIFS, 41511-8, 07021-8, 74245-0, 44961-2, 87094-0 ####[facility] LABCLIA [id number] [address] [place] Sjogrens syndrome-A extracta ble nuclear Ab Qn (S)on 01-27-2022 SSA ANTIBODY QUAL Negative Normal Negative [facility] Comment on above: Order Comment: Speci men Type: BLOOD SPECIMENOrdering Facility: [facility] Address: [address] [address] Performed By: #### 2 9374-6, 83301-7, 78038-4, 82233-8, 20997-4, ANAIFS, 83655-4, 81975-6, 50217-5, 33162-2, 52671-8 ####[facility] LABIA [id number] [address] [place] Sjogrens syndrome-B extracta ble nuclear Ab Qn (S)on 01-27-2022 SSB ANTIBODY QUAL Negative Normal Negative [facility] Comment on above: Order Comment: Speci men Type: BLOOD SPECIMENOrdering Facility: [facility] Address: [address] [place] [address] Performed By: #### 2 9374-6, 29295-7, 72589-8, 00789-8, 10123-3, ANAIFS, 33056-3, 10141-8, 68092-0, 86009-5, 55428-6 ####[facility] LABIA [id number] [address] [place] Reyes extractable nuclear Ig G Qn (S)on 01-27-2022 SM ANTIBODY QUAL Negative Normal Negative [facility] Comment on above: Order Comment: Speci [facility] Type: BLOOD SPECIMENOrdering Facility: [facility] Address: [address] [place] [address] Result Comment: Anti -Sm (Reyes) antibody is used as an aid in diagnosis of systemic lupus erythematosus and its presence is associated with renal disease. A negative result cannot rule out systemic lupus erythematosus. Clinical correlation is required. Test Methodology: Multiplex flow immunoassay. Performed By: #### 2 9374-6, 03575-9, 40875-1, 34002-6, 10835-3, ANAIFS, 01365-8, 73372-0, 48914-8, 48514-4, 09200-9 ####[facility] LABIA [id number] [place] [address] [place] T4 Free SerPl-mCncon 022 Free T4 [Mass/Vol] 1.2 ng/dL Normal 0.9-1.7 [facility] Comment on above: Order Comment: Speci men Type: BLOOD SPECIMENOrdering Facility: [facility] Address: [address] [place] [address] Performed By: #### 3 024-7 ####[facility] [id number] [address] [place] TOX SCREEN ROUT URon 022 Amphetamines Confirm (U) [Mass/Vol] Negative Normal Negative [facility] Comment on above: Order Comment: Speci men Type: URINE SPECIMENOrdering Facility: [facility] Address: [address] [place] [address] Result Comment: Cuto ff threshold at 1000 ng/mL. Performed By: #### U TOX2 ####[facility] [id number] [address] [place] BARBITURATES, URINE Negative Normal Negative [facility] Comment on above: Order Comment: Speci men Type: URINE SPECIMENOrdering Facility: [facility] Address: [address] [place] [address] Result Comment: Cuto ff threshold at 200 ng/mL. Performed By: #### U TOX2 ####[facility] [id number] [place] [address] [place] BENZODIAZEPINES, UR Negative Normal Negative [facility] Comment on above: Order Comment: Speci men Type: URINE SPECIMENOrdering Facility: [facility] Address: [address] [address] Result Comment: Cuto ff threshold at 200 ng/mL. Performed By: #### U TOX2 ####[facility] [id number] [place] [address] [place] CANNABINOIDS,URINE Positive Abnormal Negative [facility] Comment on above: Order Comment: Speci men Type: URINE SPECIMENOrdering Facility: [facility] Address: [address] [place] [address] Result Comment: Cuto ff threshold at 50 ng/mL. Performed By: #### U TOX2 ####[facility] [id number] [place] [address] [place] Cocaine Ql (U) Negative Normal Negative [facility] Comment on above: Order Comment: Speci men Type: URINE SPECIMENOrdering Facility: [facility] Address: [address] [place] [address] Result Comment: Cuto ff threshold at 300 ng/mL. Performed By: #### U TOX2 ####[facility] [id number] [place] [address] [place] Ethanol (U) [Mass/Vol] <11 Normal <11 [facility] Comment on above: Order Comment: Speci men Type: URINE SPECIMENOrdering Facility: [facility] Address: [address] [place] [address] Performed By: #### U TOX2 ####[facility] [id number] [place] [address] [place] Opiates Screen Ql (U) Positive Abnormal Negative [facility] Comment on above: Order Comment: Speci men Type: URINE SPECIMENOrdering Facility: [facility] Address: [address] [place] [address] Result Comment: Cuto ff threshold at 300 ng/mL. Performed By: #### U TOX2 ####[facility] [id number] [place] [address] [place] oxyCODONE cutoff Screen (U) [Mass/Vol] Positive Abnormal Negative [facility] Comment on above: Order Comment: Speci men Type: URINE SPECIMENOrdering Facility: [facility] Address: [address] [address] Result Comment: Cuto ff threshold at 100 ng/mL. Performed By: #### U TOX2 ####[facility] [id number] [address] [place] Phencyclidine Ql (U) Negative Normal Negative [facility] Comment on above: Order Comment: Speci men Type: URINE SPECIMENOrdering Facility: [facility] Address: [address] [place] [address] Result Comment: Cuto ff threshold at 25 ng/mL. Performed By: #### U TOX2 ####[facility] [id number] [place] [address] [place] dsDNA Ab Ser IA-aCncon 01-27 DNA double strand Ab IA Qn (S) 12.88 IU/mL Normal <30 [facility] Comment on above: Order Comment: Speci men Type: BLOOD SPECIMENOrdering Facility: [facility] Address: [address] [place] [address] Result Comment: Nega tive for ds DNA Antibodies. <30 IU/mL Negative 30-74 IU/mL Equivocal >74 IU/mL Positive Performed By: #### 2 9374-6, 43196-8, 62403-7, 13437-9, 72727-2, ANAIFS, 27907-1, 48067-0, 41567-1, 23685-2, 13257-6 ####[facility] LABCLIA [id number] [facility] [id number] [place] AST SerPl-cCncon 01-26-2022 AST [Catalytic activity/Vol] 334 U/L High 13-35 [facility] Comment on above: Order Comment: Speci men Type: BLOOD SPECIMENOrdering Facility: [facility] Address: [address] [place] [address] Performed By: #### 1 920-8 ####[facility] LAB[facility]ATORY[facility] [id number] [place] [address] [place] CBC W Auto Differential pane l (Bld)on 01-26-2022 Basophils (Bld) [#/Vol] 10*3/uL Normal <0.11 [facility] Comment on above: Order Comment: Speci men Type: BLOOD SPECIMENOrdering Facility: [facility] Address: [address] [address] Performed By: #### 5 7021-8 ####[facility] LABORATORYCLIA [id number] [place] [id number] [place] Basophils/100 WBC (Bld) 0.5 % Normal [facility] Comment on above: Order Comment: Speci men Type: BLOOD SPECIMENOrdering Facility: [facility] Address: [address] [address] Performed By: #### 5 7021-8 ####[facility] LABORATORYCLIA [id number] [place] [address] [place] Differential cell count method Nom (Bld) Auto Normal [facility] Comment on above: Order Comment: Speci men Type: BLOOD SPECIMENOrdering Facility: [facility] Address: [address] [address] Performed By: #### 5 7021-8 ####[facility] LABORATORYIA [id number] [place] [address] [place] Eosinophils (Bld) [#/Vol] 0.09 10*3/uL Normal <0.46 [facility] Comment on above: Order Comment: Speci men Type: BLOOD SPECIMENOrdering Facility: [facility] Address: [address] [address] Performed By: #### 5 7021-8 ####[facility] LABORATORYCLIA [id number] [place] [address] [place] Eosinophils/100 WBC (Bld) 2.2 % Normal [facility] Comment on above: Order Comment: Speci men Type: BLOOD SPECIMENOrdering Facility: [facility] Address: [address] [address] Performed By: #### 5 7021-8 ####[facility] LABORATORYCLIA [id number] [place] [address] [place] Erythrocyte distribution width (RBC) [Ratio] 12.7 % Normal 11.5-15.0 [facility] Comment on above: Order Comment: Speci men Type: BLOOD SPECIMENOrdering Facility: [facility] Address: [address] [address] Performed By: #### 5 7021-8 ####[facility] [id number] [address] [place] Hematocrit (Bld) [Volume fraction] 42.1 % Normal 36.0-46.0 [facility] Comment on above: Order Comment: Speci men Type: BLOOD SPECIMENOrdering Facility: [facility] Address: [address] [place] [address] Performed By: #### 5 7021-8 ####[facility] [id number] [place] [address] [place] Hemoglobin (Bld) [Mass/Vol] 14.4 g/dL Normal 11.5-15.5 [facility] Comment on above: Order Comment: Speci men Type: BLOOD SPECIMENOrdering Facility: [facility] Address: [address] [place] [address] Performed By: #### 5 7021-8 ####[facility] [id number] [place] [address] [place] Immature granulocytes (Bld) [#/Vol] 10*3/uL Normal <0.10 [facility] Comment on above: Order Comment: Speci men Type: BLOOD SPECIMENOrdering Facility: [facility] Address: [address] [place] [address] Performed By: #### 5 7021-8 ####[facility] [id number] [address] [place] Immature granulocytes/100 WBC (Bld) 0.2 % Normal [facility] Comment on above: Order Comment: Speci men Type: BLOOD SPECIMENOrdering Facility: [facility] Address: [address] [address] Performed By: #### 5 7021-8 ####[facility] [id number] [place] [address] [place] Lymphocytes (Bld) [#/Vol] 1.39 10*3/uL Normal 1.00-4.00 [facility] Comment on above: Order Comment: Speci men Type: BLOOD SPECIMENOrdering Facility: [facility] Address: [address] [address] Performed By: #### 5 7021-8 ####[facility] [id number] [address] [place] Lymphocytes/100 WBC (Bld) 34.2 % Normal [facility] Comment on above: Order Comment: Speci men Type: BLOOD SPECIMENOrdering Facility: [facility] Address: [address] [address] Performed By: #### 5 7021-8 ####[facility] [id number] [place] [address] [place] MCH (RBC) [Entitic mass] 32.6 pg Normal 26.0-34.0 [facility] Comment on above: Order Comment: Speci men Type: BLOOD SPECIMENOrdering Facility: [facility] Address: [address] [address] Performed By: #### 5 7021-8 ####[facility] [id number] [address] [place] MCHC (RBC) [Mass/Vol] 34.2 g/dL Normal 30.5-36.0 [facility] Comment on above: Order Comment: Speci men Type: BLOOD SPECIMENOrdering Facility: [facility] Address: [address] [address] Performed By: #### 5 7021-8 ####[facility] [id number] [place] [address] [place] MCV (RBC) [Entitic vol] 95.2 fL Normal 80.0-100.0 [facility] Comment on above: Order Comment: Speci men Type: BLOOD SPECIMENOrdering Facility: [facility] Address: [address] [address] Performed By: #### 5 7021-8 ####[facility] LAB[facility]ATORYCLIA [id number] [place] [id number] [place] Monocytes (Bld) [#/Vol] 0.26 10*3/uL Normal <0.87 [facility] Comment on above: Order Comment: Speci men Type: BLOOD SPECIMENOrdering Facility: [facility] Address: [address] [address] Performed By: #### 5 7021-8 ####[facility] LABORATORYCLIA [id number] [place] [address] [place] Monocytes/100 WBC (Bld) 6.4 % Normal [facility] Comment on above: Order Comment: Speci men Type: BLOOD SPECIMENOrdering Facility: [facility] Address: [address] [address] Performed By: #### 5 7021-8 ####[facility] LABORATORYIA [id number] [place] [address] [place] Neutrophils (Bld) [#/Vol] 2.30 10*3/uL Normal 1.45-7.50 [facility] Comment on above: Order Comment: Speci men Type: BLOOD SPECIMENOrdering Facility: [facility] Address: [address] [address] Performed By: #### 5 7021-8 ####[facility] LABORATORYCLIA [id number] [place] [address] [place] Neutrophils/100 WBC (Bld) 56.5 % Normal [facility] Comment on above: Order Comment: Speci men Type: BLOOD SPECIMENOrdering Facility: [facility] Address: [address] [address] Performed By: #### 5 7021-8 ####[facility] LABORATORYCLIA [id number] [facility] [address] [place] Nucleated RBC (Bld) [#/Vol] 10*3/uL Normal <0.01 [facility] Comment on above: Order Comment: Speci men Type: BLOOD SPECIMENOrdering Facility: [facility] Address: [address] [address] Performed By: #### 5 7021-8 ####[facility] LABORATORYIA [id number] [place] [address] [place] Nucleated RBC/100 WBC (Bld) [Ratio] 0.0 /[address] [facility] Comment on above: Order Comment: Speci men Type: BLOOD SPECIMENOrdering Facility: [facility] Address: [address] [place] [address] Performed By: #### 5 7021-8 ####[facility] [id number] [place] [address] [place] Platelet mean volume (Bld) [Entitic vol] 10.0 fL Normal 9.0-12.7 [facility] Comment on above: Order Comment: Speci men Type: BLOOD SPECIMENOrdering Facility: [facility] Address: [address] [place] [address] Performed By: #### 5 7021-8 ####[facility] [id number] [place] [id number] [place] Platelets (Bld) [#/Vol] 152 10*3/uL Normal 150-400 [facility] Comment on above: Order Comment: Speci men Type: BLOOD SPECIMENOrdering Facility: [facility] Address: [address] [address] Performed By: #### 5 7021-8 ####[facility] LABORATORYIA [id number] [place] [address] [place] RBC (Bld) [#/Vol] 4.42 10*6/uL Normal 3.90-5.20 [facility] Comment on above: Order Comment: Speci men Type: BLOOD SPECIMENOrdering Facility: [facility] Address: [place] [address] Performed By: #### 5 7021-8 ####[facility] [id number] [place] [address] [place] WBC (Bld) [#/Vol] 4.07 10*3/uL Normal 3.70-11.00 [facility] Comment on above: Order Comment: Speci men Type: BLOOD SPECIMENOrdering Facility: [facility] Address: [place] [address] Performed By: #### 5 7021-8 ####[facility] LABORATORYCLIA [id number] [place] [address] [place] [address] ABD/PEL W IVCONon 01-26- 022 CT ABD/PEL W IVCON * * *Final Report* * * DATE OF EXAM: Jan 26 2022 5:46PM [facility] 0530 - CT ABD/PEL W IVCON / PROCEDURE REASON: Abdominal pain, acute, nonlocalized * * * * Physician Interpretation * * * * EXAMINATION: CT ABDOMEN AND PELVIS WITH IV CONTRAST CLINICAL HISTORY: Abdominal pain TECHNIQUE: CT of the abdomen and pelvis was performed using standard technique, scanning from just above the dome of the diaphragm to the symphysis pubis. MQ: CTAP_3 Contrast: IV: 106 ml of Omnipaque 300 : ml of CT Radiation dose: Integrated Dose-length product (DLP) for this visit = 1508 mGy*cm. CT Dose Reduction Employed: Automated exposure control (AEC) COMPARISON: 05/23/2015. RESULT: Liver: Findings suggestive of fatty infiltration of liver. There is an area of decreased attenuation near the gallbladder suggestive of focal steatosis. Biliary: No bile duct dilation. Gallbladder is unremarkable. Spleen: No mass. No splenomegaly. Pancreas: No mass or duct dilation. Adrenals: No mass. Kidneys: Unremarkable. GI tract: No dilation or wall thickening. Postsurgical changes are noted status post partial colectomy. There is a short segment intussusception of small bowel in the mid left abdomen on image 37 of series 2. No bowel wall thickening or stranding is identified. Lymph nodes: No abdominal or pelvic lymphadenopathy. Mesentery/Peritoneum: No ascites or mass. Retroperitoneum: No mass. Vasculature: - Abdominal aorta and iliac arteries: No aneurysm. - Celiac and SMA: Patent without stenosis. - Portal venous system (SMV, splenic vein, portal vein and branches): Patent. - Hepatic veins: Patent. Pelvis: No mass, ascites or fluid collection. Bones/Soft Tissues: No significant finding. Lower thorax: Unremarkable. Intermediate Card Tender (topogram) images: IMPRESSION: 1. No acute findings are identified. 2. Nonobstructive short segment intussusception involving small bowel in the left abdomen which can be seen as a transient finding in adults. 3. Postsurgical changes. Staple Laster: PSCB Transcribe Date/Time: Jan 26 2022 6:07P Dictated by : TOM RAIN MD This examination was interpreted and the report reviewed and electronically signed by: TOM RAIN MD on Jan 26 2022 6:46PM EST [id number] Normal [facility] Comprehensive metabolic 2000 panelon 01-26-2022 Albumin [Mass/Vol] 3.8 g/dL Low 3.9-4.9 [facility] Comment on above: Order Comment: Speci men Type: BLOOD SPECIMENOrdering Facility: [facility] Address: [address] [address] Performed By: #### 2 4323-8, 3016-3, 3040-3 ####[facility] LABORATORYCLIA [id number] [facility] [address] [place] ALP [Catalytic activity/Vol] 205 U/L High 34-123 [facility] Comment on above: Order Comment: Speci men Type: BLOOD SPECIMENOrdering Facility: [facility] Address: [address] [id number] Performed By: #### 2 4323-8, 3016-3, 3040-3 ####[facility] LABORATORYCLIA [id number] [place] [address] [place] ALT [Catalytic activity/Vol] 182 U/L High 7-38 [facility] Comment on above: Order Comment: Speci men Type: BLOOD SPECIMENOrdering Facility: [facility] Address: [address] Performed By: #### 2 4323-8, 3016-3, 3040-3 ####[facility] [id number] [place] [address] [place] Anion gap [Moles/Vol] 15 mmol/L Normal 9-18 [facility] Comment on above: Order Comment: Speci men Type: BLOOD SPECIMENOrdering Facility: [facility] Address: [address] [address] Performed By: #### 2 4323-8, 3016-3, 3040-3 ####[facility] [id number] [place] [address] [place] AST [Catalytic activity/Vol] Normal [facility] Comment on above: Order Comment: Speci men Type: BLOOD SPECIMENOrdering Facility: [facility] Address: [address] [place] [address] Result Comment: Unab le to assay due to interference from hemolysis. Suggest reorder as clinically indicated. Performed By: #### 2 4323-8, 3016-3, 3040-3 ####[facility] [id number] [place] [address] [place] Bilirubin [Mass/Vol] 0.8 mg/dL Normal 0.2-1.3 [facility] Comment on above: Order Comment: Speci men Type: BLOOD SPECIMENOrdering Facility: [facility] Address: [address] [address] Performed By: #### 2 4323-8, 3016-3, 3040-3 ####[facility] [id number] [place] [address] [place] Calcium [Mass/Vol] 9.5 mg/dL Normal 8.5-10.2 [facility] Comment on above: Order Comment: Speci men Type: BLOOD SPECIMENOrdering Facility: [facility] Address: [address] [address] Performed By: #### 2 4323-8, 3016-3, 3040-3 ####[facility] LABORATORYCLIA [id number] [place] [address] [place] Chloride [Moles/Vol] 94 mmol/L Low 97-105 [facility] Comment on above: Order Comment: Speci men Type: BLOOD SPECIMENOrdering Facility: [facility] Address: [address] [place] [address] Performed By: #### 2 4323-8, 3016-3, 3040-3 ####[facility] LABORATORYCLIA [id number] [place] [address] [place] CO2 [Moles/Vol] 26 mmol/L Normal 22-30 [facility] Comment on above: Order Comment: Speci men Type: BLOOD SPECIMENOrdering Facility: [facility] Address: [address] [place] [address] Performed By: #### 2 4323-8, 6-3, 3040-3 ####[facility] [id number] [place] [address] [place] Creatinine [Mass/Vol] 0.94 mg/dL Normal 0.58-0.96 [facility] Comment on above: Order Comment: Speci men Type: BLOOD SPECIMENOrdering Facility: [facility] Address: [address] [place] [address] Performed By: #### 2 4323-8, 6-3, 3040-3 ####[facility] LABORATORYIA [id number] [place] [address] [place] ESTIMATED GLOMERULAR FILTRATION RATE 81 mL/min/1.73m??? Normal >=60 [facility] Comment on above: Order Comment: Speci men Type: BLOOD SPECIMENOrdering Facility: [facility] Address: [address] [place] [address] Result Comment: Breana mated Glomerular Filtration Rate (eGFR) is calculated using the 2020 CKD-EPI creatinine equation. This equation utilizes serum creatinine, sex, and age as parameters. The creatinine assay has traceable calibration to isotope dilution-mass spectrometry. Refer to KDIGO guidelines for clinical interpretation. In patients with unstable renal function, e.g. those with acute kidney injury, the eGFR may not accurately reflect actual GFR. Performed By: #### 2 4323-8, 6-3, 3039-3 ####[facility] LABORATORYCLIA [id number] [place] [address] [place] Glucose [Mass/Vol] 119 mg/dL High 74-99 [facility] Comment on above: Order Comment: [facility] Type: BLOOD SPECIMENOrdering Facility: [facility] Address: [place] [address] Result Comment: The [place] Diabetes Association (ADA) provides guidance for cutoff values for fasting glucose and random glucose. The ADA defines fasting as no caloric intake for at least 8 hours. Fasting plasma glucose results between 100 to 125 mg/dL indicate increased risk for diabetes (prediabetes). Fasting plasma glucose results greater than or equal to 126 mg/dL meet the criteria for diagnosis of diabetes. In the absence of unequivocal hyperglycemia, results should be confirmed by repeat testing. In a patient with classic symptoms of hyperglycemia or hyperglycemic crisis, random plasma glucose results greater than or equal to 200 mg/dL meet the criteria for diagnosis of diabetes. Reference: Standards of Medical Care in Diabetes 2016, Canadian Diabetes Association. Diabetes Care. 2016.39(Suppl 1). Performed By: #### 2 4323-8, 6-3, 3039-3 ####[facility] LABORATORYCLIA [id number] [place] [address] [place] Potassium [Moles/Vol] 4.0 mmol/L Normal 3.7-5.1 [facility] Comment on above: Order Comment: [facility] Type: BLOOD SPECIMENOrdering Facility: [facility] Address: [place] [address] Performed By: #### 2 4323-8, 6-3, 3039-3 ####[facility] LABORATORYCLIA [id number] [place] [address] [place] Protein [Mass/Vol] 7.3 g/dL Normal 6.3-8.0 [facility] Comment on above: Order Comment: Speci men Type: BLOOD SPECIMENOrdering Facility: [facility] Address: [address] [place] [address] Performed By: #### 2 4323-8, 3016-3, 3040-3 ####[facility] LABORATORYCLIA [id number] [place] [address] [place] Sodium [Moles/Vol] 135 mmol/L Low 136-144 [facility] Comment on above: Order Comment: Speci men Type: BLOOD SPECIMENOrdering Facility: [facility] Address: [address] [place] [address] Performed By: #### 2 4323-8, 3016-3, 3040-3 ####[facility] LABORATORYIA [id number] [place] [address] [place] Urea nitrogen [Mass/Vol] 12 mg/dL Normal 7- [facility] Comment on above: Order Comment: Speci men Type: BLOOD SPECIMENOrdering Facility: [facility] Address: [place] [address] Performed By: #### 2 4323-8, 3016-3, 3040-3 ####[facility] LABORATORYIA [id number] [place] [address] [facility] [place] ED NOTEon 01-26-2022 ED NOTE HNO ID: [id number] Author: Jena Murphy RN Service: ? Author Type: Registered Nurse Type: ED Notes Filed: 01/26/2022 8:39 PM Note Text: Pt ambulated to bathroom [facility] ED NOTE HNO ID: [id number] Author: Jena Murphy RN Service: ? Author Type: Registered Nurse Type: ED Notes Filed: 01/26/2022 7:12 PM Note Text: Report received from ARMANI Rodriguez [facility] ED NOTE HNO ID: [id number] Author: Jennifer Esparza RN Service: ? Author Type: Registered Nurse Type: ED Notes Filed: 01/26/2022 7:06 PM Note Text: Report to ARMANI Bella. Pt given crackers for PO challenge [facility] ED NOTE HNO ID: [id number] Author: Jennifer Esparza RN Service: ? Author Type: Registered Nurse Type: ED Notes Filed: 01/26/2022 5:47 PM Note Text: Pt to and from CT. [facility] ED NOTE HNO ID: [id number] Author: Tova Uribe RN Service: ? Author Type: Registered Nurse Type: ED Notes Filed: 01/26/2022 12:41 PM Note Text: Patient arrived to ED with complaints of LUQ abdominal pain with nausea and vomiting for months. Patient states she had labs done yesterday and they were abnormal. Plan of care: -Monitor Patient's Vital Signs for changes in condition -Monitor patient for changes in pain -Maintain patient safety and privacy -Provide comfort measures -Call light in place -Siderails up, bed in locked and low position [facility] ED PROV NOTEon 01-26-2022 ED PROV NOTE HNO ID: [id number] Author: Mark Delgado MD Service: Emergency Medicine Author Type: Physician Type: ED Provider Notes Filed: 01/27/2022 10:52 AM Note Text: ED Provider Note Patient Name: Ben Barr : 1985 SERVICE DATE: 01/26/22 History Patient presents with: Abdominal Pain Nausea AND Vomiting Blood Test Abnormality 36-year-old female, history of hypothyroid, CKD, seizure disorder, common variable immunodeficiency, hypogammaglobulinemia, vitamin B12 deficiency, total colectomy -sent in by her oncologist for here for upper abdominal pain, with nausea and vomiting x2 to 3 weeks, elevated liver enzymes (AST, ALT, alk phos) hepatitis B surface and core antibody positive, increase iron and decreased appetite. She denies getting any hepatitis vaccine. She is not on any iron supplements. She does have a known bezoar, scheduled for an EGD on 02/01/2022. Also feels constipated. Denies any fever or chills. No chest pain or shortness of breath. 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) Hypogammaglobulinaemia, unspecified Hypothyroid Intussusception (HCC) as child Low back pain PMS (premenstrual syndrome) POTS (postural orthostatic tachycardia syndrome) POTS (postural orthostatic tachycardia syndrome) Thrombocytopenia (HCC) Tobacco abuse Vitamin D deficiency PAST SURGICAL HISTORY Procedure Laterality Date COLONOSCOPY FLX DX W/COLLJ SPEC WHEN PFRMD 2011 Colonoscopy COLONOSCOPY FLX DX W/COLLJ SPEC WHEN PFRMD Colonoscopy ESOPHAGOGASTRODUODENOSCOPY TRANSORAL DIAGNOSTIC 09/2008 neg duodenal bx ESOPHAGOGASTRODUODENOSCOPY TRANSORAL DIAGNOSTIC 12/17/14 EGD PAST SURGICAL HISTORY OF 2005 partial bowel resection PAST SURGICAL HISTORY OF ingrown toenails removed FAMILY HISTORY Problem Relation Age of Onset Diabetes Mother other (Raynauds [Other]) Mother Hyperlipidemia Mother Hypertension Mother Alcohol abuse Father Gout Father other (POTS [Other]) Sister both sisters other (AVM [Other]) Sister Cancer Paternal Grandmother lung; smoker other (healthy [Other]) Daughter Diabetes Maternal Aunt type 1 Thyroid Maternal Aunt grave's Thyroid Maternal Aunt Neel's Thyroid Maternal Uncle hypothyroid Social History Tobacco Use Smoking status: Former Packs/day: 0.50 Years: 6.00 Pack years: 3.00 Types: Cigarettes Quit date: 12/20/2013 Years since quittin.1 Smokeless tobacco: Never Substance and Sexual Activity Alcohol use: No Drug use: No Sexual activity: Yes Partners: Male ALLERGIES Allergen Reactions Antidepressants [Se* Other: See Comments It knocks me out. Rondec [Bromphenira* crying for 12 solid hours-per mom Review of Systems Constitutional: Negative for chills and fever. HENT: Negative for ear pain. Respiratory: Negative for shortness of breath. Cardiovascular: Negative for chest pain. Gastrointestinal: Positive for abdominal pain, nausea and vomiting. Genitourinary: Negative for dysuria. Musculoskeletal: Negative for myalgias. Skin: Negative for rash. Neurological: Negative for headaches. Psychiatric/Behavioral: Negative for confusion. The patient is not nervous/anxious. Physical Exam Vitals BP Pulse Temp Temp src Resp SpO2 Weight Height 01/26/22 1241 01/26/22 1241 01/26/22 1241 01/26/22 1241 01/26/22 1239 01/26/22 1241 01/26/22 1239 -- 144/105 77 36.8 ?C (98.2 ?F) Oral 16 99 % 58.5 kg (129 lb) Physical Exam Vital signs and Nursing notes were reviewed Gen Appearance: Patient is alert and oriented and in minimal acute distress. Neck: Supple, Trach/Thyroid normal EENT: PERRLA, EOMI, Conjunctivae normal. Skin: Warm and dry with no rash. Cardiovascular: Heart RRR, no gallops or rubs, no aorta enlargement or bruit noted. Respiratory: Lungs clear, no wheezing, no rales, normal breath sounds. Gastrointestinal: Positive bowel sounds, soft, flat, minimal epigastric abdominal tenderness, no rebound, guarding or rigidity. Musculoskeletal: No tenderness to extremities, No back or hip pain. Neurological: Pt is alert and oriented x 3, memory intact, no focal motor or sensory deficits noted. Diagnostic Testing Labs Reviewed COMP METABOLIC PANEL - Abnormal; Notable for the following components: Result Value Albumin 3.8 (*) Alkaline Phosphatase 205 (*) ALT 182 (*) Glucose 119 (*) Sodium 135 (*) Chloride 94 (*) All other components within normal limits LIPASE BLD - Abnormal; Notable for the following components: Lipase 73 (*) All other components within normal limits UA DIP,URINE (ED-POC) - Abnormal; Notable for the following components: BILIRUBIN UA (POCT) Small (*) All other components within nor (more content not included)... Normal [facility] FERRITIN BLDon 01-26-2022 Ferritin [Mass/Vol] 589.0 ng/mL High 14.7 - 205.1 ng/mL [facility] HEP B CORE AB TOTALon 2021 HBV core Ab Ql (S) Positive Abnormal Negative [facility] HEP B SURF AB QUALon 022 HBV surface Ab Ql (S) Positive Abnormal Negative [facility] HEP B SURF AG SCRNon 022 HBV surface Ag Ql (S) Negative Negative [facility] HEP C AB IA W/CONF SCRNon HCV Ab Ql (S) Negative Negative [facility] HISTORY PHYSICALon HISTORY PHYSICAL HNO ID: [id number] Author: Shaun Conteh MD Service: Hospital Medicine Author Type: Physician Type: HANDP Filed: 01/27/2022 3:29 AM Note Text: DEPARTMENT OF HOSPITAL MEDICINE HISTORY AND PHYSICAL EXAM SERVICE DATE: 01/26/2022 Code Status: Not on file SERVICE TIME: 8:15 PM Primary Care Physician: Lizy Soria, DO NIGHT AND WEEKEND COVERAGE: LUCIA COVERAGE: Days: [phone], please contact via [employer] SecureMessage Nights: [phone] - 3rd floor: please page CC Hospitalist night cover [phone] - 4th floor: please page CC Hospitalist night cover [phone] - 5th floor: please page CC Hospitalist night cover [phone] Subjective CHIEF COMPLAINT: nausea, vomiting, upper abdominal pain HPI: This is a 36 year old female who presents with upper abdominal pain, nausea, vomiting for last 2-3 weeks. PMH significant for CVID, CKD stage II, seizures, hypothyroidism, depression, total colectomy in 2016 with ileoanal anastomosis in 2017. She was sent by her oncologist to the ED for the nausea, vomiting, abdominal pain. She was noted to have elevated liver enzymes and testing positive for Hepatitis B. Patient states that her nausea and abdominal pain are chronic but have worsened over the last 2 weeks. She has been unable to keep anything solid down. She states she was told she has a bezoar and was planned on getting an EGD on 02/01/2022. She has been vomiting almost everyday, nonbilious, non bloody, states the zofran she has at home is not helping. She also states that her bowel movements have changed, usually she has loose stools everyday but currently she is having small mucousy stools and feeling like she is not emptying completely. No blood in the stools. Her abdominal pain is generalized but worse in the upper abdomen. She denies fever but does have chills and night sweats. ED course: - VSS, afebrile, saturating well on RA - Labs: CMP: Na 135, ALP 205, AST 334, ALT 182, T bili 0.8 TSH 4.4 CBC unremarkable UA unremarkable - Imaging: - RUQ US Hepatic steatosis. No cholelithiasis or biliary ductal dilatation. - CT abd/pelvis 1. No acute findings are identified. 2. Nonobstructive short segment intussusception involving small bowel in the left abdomen which can be seen as a transient finding in adults. 3. Postsurgical changes. Received 4mg morphine, 500cc bolus, percocet 5, reglan 5mg in ED Admitted for observation 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) Hypogammaglobulinaemia, unspecified Hypothyroid Intussusception (HCC) as child Low back pain PMS (premenstrual syndrome) POTS (postural orthostatic tachycardia syndrome) POTS (postural orthostatic tachycardia syndrome) Thrombocytopenia (HCC) Tobacco abuse Vitamin D deficiency PAST SURGICAL HISTORY Procedure Laterality Date COLONOSCOPY FLX DX W/COLLJ SPEC WHEN PFRMD 2011 Colonoscopy COLONOSCOPY FLX DX W/COLLJ SPEC WHEN PFRMD Colonoscopy ESOPHAGOGASTRODUODENOSCOPY TRANSORAL DIAGNOSTIC 09/2008 neg duodenal bx ESOPHAGOGASTRODUODENOSCOPY TRANSORAL DIAGNOSTIC 12/17/14 EGD PAST SURGICAL HISTORY OF 2005 partial bowel resection PAST SURGICAL HISTORY OF ingrown toenails removed FAMILY HISTORY Problem Relation Age of Onset Diabetes Mother other (Raynauds [Other]) Mother Hyperlipidemia Mother Hypertension Mother Alcohol abuse Father Gout Father other (POTS [Other]) Sister both sisters other (AVM [Other]) Sister Cancer Paternal Grandmother lung; smoker other (healthy [Other]) Daughter Diabetes Maternal Aunt type 1 Thyroid Maternal Aunt grave's Thyroid Maternal Aunt Neel's Thyroid Maternal Uncle hypothyroid Social History Tobacco Use Smoking status: Former Packs/day: 0.50 Years: 6.00 Pack years: 3.00 Types: Cigarettes Quit date: 12/20/2013 Years since quittin.1 Smokeless tobacco: Never Substance Use Topics Alcohol use: No Drug use: No PRIOR TO ADMISSION MEDICATIONS: (Not in a hospital admission) ALLERGIES Allergen Reactions Antidepressants [Se* Other: See Comments It knocks me out. Rondec [Bromphenira* crying for 12 solid hours-per mom REVIEW OF SYSTEM: Negative 12 point ROS except as per HPI Objective PHYSICAL EXAM: BP 113/75 Pulse 76 Temp (Src) 98.2 (Oral) Resp 17 Wt 129 lb (58.5kg) SpO2 98% LMP 01/14/2022 O2 Therapy: Room Air Physical Exam Performed: GENERAL: Alert, Mild Distress, Cooperative SKIN: Skin color, texture, turgor normal. No rashes or lesions. HEAD/SINUSES: No significant findings EYES: PERRLA, EOMI EARS: External ears normal, canals clear NOSE: Nares normal. Septum midline. OROPHARYNX: Lips, mucosa, and tongue normal. Teeth and gums normal. Oropharyn (more content not included)... Normal [facility] Iron and Iron binding capaci ty [facility] 01-26-2022 Iron [Mass/Vol] 214 ug/dL High 41 - 186 ug/dL [facility] Iron binding capacity [Mass/Vol] Low 232 - 386 ug/dL [facility] Iron/TIBC [Molar ratio] High 15.0 - 57.0 % [facility] Lipase SerPl-cCncon 01-27-20 Lipase [Catalytic activity/Vol] 73 U/L High 16-61 [facility] Comment on above: Order Comment: Mani dia Type: BLOOD SPECIMENOrdering Facility: [facility] Address: [address] [place], [place] [id number] Performed By: #### 2 4323-8, 3016-3, 3040-3 ####[facility] LABORATORYCLIA [id number] [facility] [place] [address] [place] PT panel Coag (PPP)on 2021 INR Coag (PPP) [Relative time] 1.0 {INR} Normal 0.9-1.3 [facility] Comment on above: Order Comment: Mani [facility] Type: BLOOD SPECIMENOrdering Facility: [facility] Address: [address] [place] [id number] Result Comment: Zakia min K Antagonist (VKA) Therapeutic Range: INR 2 to 3 (Target INR of 2.5) Note: For patients treated with VKA drugs, such as warfarin, the [employer] 2012 Guideline recommends a therapeutic INR range of 2 to 3 (target INR of 2.5). This recommendation includes high-risk patients with antiphospholipid syndrome with previous arterial or venous thromboembolism, current-generation mechanical or bioprosthetic aortic heart valve replacement. Note: Patients with mechanical aortic valve replacement and additional risk factors for thromboembolic events (atrial fibrillation, previous thromboembolism, LV dysfunction, hypercoagulable conditions) or an older generation mechanical AVR (i.e., ball in-Cage) or any mechanical MVR should have a INR therapeutic range of 2.5 to 3.5 (target INR of 3). Pilo GH, et al. Chest 2012, 141:7S-47S Dina RA, et al. [facility] 2017, 70: 252-289 Performed By: #### 3 4528-0 ####[facility] LABORATORYCLIA [id number] [place] [address] [place] [facility] PT Coag (PPP) [Time] 10.8 s Normal 9.7-13.0 [facility] Comment on above: Order Comment: Speci men Type: BLOOD SPECIMENOrdering Facility: [facility] Address: [place] [address] Performed By: #### 3 4528-0 ####[facility] LABORATORYCLIA [id number] [place] [address] [facility] Smooth muscle Ab Ql (S)on Actin Smooth Muscle IgG Qualitative Negative Negative [facility] Actin Smooth Muscle IgG Quantitative 16 Units <20 Units [facility] TSH BLDon 01-26-2022 TSH Qn 4.750 m[IU]/L High 0.270 - 4.200 mIU/L [facility] TSH SerPl-aCncon 01-26-2022 TSH Qn 4.430 m[IU]/L High 0.270-4.[address] [facility] Comment on above: Order Comment: Speci men Type: BLOOD SPECIMENOrdering Facility: [facility] Address: [address] [place] [id number] Result Comment: If t he patient is , TSH reference range varies by gestational period: First Trimester (weeks 9-12): 0.180-2.990 mIU/L Second Trimester: 0.110-3.980 mIU/L Third Trimester: 0.480-4.710 mIU/L Nathan Castaneda et al. A Practical Approach for the Verifications and Determination of Site- and Trimester-Specific Reference Intervals for Thyroid Function tests in . Thyroid, 2019:29:3:412-420. Khoi Tam, et al. 2017 Guidelines of the [place] Thyroid Association for the Diagnosis and Management of Thyroid Disease during and the . Thyroid, 2017:27:3:315-389. Performed By: #### 2 4323-8, 3016-3, 3040-3 ####[facility] LABORATORYCLIA [id number] [facility] [place] [address] [place] US ABD RIGHT UPPER QUADRANTo n 01-26-2022 US ABD RIGHT UPPER QUADRANT * * *Final Report* * * DATE OF EXAM: Jan 26 2022 3:50PM U 1032 - US ABD RIGHT UPPER QUADRANT / PROCEDURE REASON: RUQ abdominal pain, no prior imaging * * * * Physician Interpretation * * * * EXAMINATION: RIGHT UPPER QUADRANT ULTRASOUND CLINICAL HISTORY: RUQ abdominal pain, no prior imaging TECHNIQUE: Sonography of the right upper quadrant was performed. Images were obtained and stored in a permanent archive. MQ: [id number]_2 COMPARISON: None. RESULT: Pancreas: Normal sonographic appearance. Portions obscured: tail Liver: Echotexture: Normal, homogeneous. Echogenicity: Increased Surface contour: Smooth Lesions: None. Biliary: No intrahepatic biliary duct dilation. CBD: 0.3 cm at the hilum. Gallbladder: Normal caliber -Contents: No cholelithiasis -Wall: Normal -Other: No pericholecystic fluid. Right Kidney: No hydronephrosis. Ascites: None. IMPRESSION: Hepatic steatosis. No cholelithiasis or biliary ductal dilatation. Staple Laster: CHENG Transcribe Date/Time: Jan 26 2022 3:57P Dictated by : TIANA CUEVAS MD This examination was interpreted and the report reviewed and electronically signed by: TIANA CUEVAS MD on Jan 26 2022 4:08PM EST [id number] Normal [facility] Comprehensive metabolic 2000 panelon 01-25-2022 Albumin [Mass/Vol] 4.1 g/dL 3.9 - 4.9 g/dL [facility] ALP [Catalytic activity/Vol] 198 U/L High 34 - 123 U/L [facility] ALT [Catalytic activity/Vol] 159 U/L High 7 - 38 U/L [facility] Anion gap [Moles/Vol] 9 mmol/L 9 - 18 mmol/L [facility] AST [Catalytic activity/Vol] 294 U/L High 13 - 35 U/L [facility] Bilirubin [Mass/Vol] 0.6 mg/dL 0.2 - 1 .3 mg/dL [facility] Calcium [Mass/Vol] 9.5 mg/dL 8.5 - 10. 2 mg/dL [facility] Chloride [Moles/Vol] 100 mmol/L 97 - 10 5 mmol/L [facility] CO2 [Moles/Vol] 28 mmol/L 22 - 30 mmol/L [facility] Creatinine [Mass/Vol] 0.93 mg/dL 0.58 - 0.96 mg/dL [facility] Estimated Glomerular Filtration Rate 82 mL/min/1.73m >=60 mL/min/1.7 3m [facility] Glucose [Mass/Vol] 113 mg/dL High 74 - 99 mg/dL [facility] Potassium [Moles/Vol] 4.0 mmol/L 3.7 - 5.1 mmol/L [facility] Protein [Mass/Vol] 7.7 g/dL 6.3 - 8.0 g/dL [facility] Sodium [Moles/Vol] 137 mmol/L 136 - 144 mmol/L [facility] Urea nitrogen [Mass/Vol] 15 mg/dL 7 - 21 mg/dL [facility] ASAEL CONNORS PANELon 022 EBV EA AB, QUAL Positive Abnormal Negative [facility] Comment on above: Order Comment: Mani dia Type: BLOOD SPECIMENOrdering Facility: [facility] Address: [address] [place] [address] Result Comment: The clinical utility of EBV early antigen (EA) testing is unclear. The antigen used is EA-D and EA-D IgG can be found in some healthy blood donors, inconsistently during acute infectious mononucleosis, and in patients with nasopharyngeal carcinoma. The final interpretation should be done in the context of other EBV serology panel results. Performed By: #### E BVPNL ####[facility] LABCLIA [id number] [address] [place] EBV NA AB, QUAL Positive Abnormal Negative [facility] Comment on above: Order Comment: Mani dia Type: BLOOD SPECIMENOrdering Facility: [facility] Address: [address] [address] Result Comment: EBV nuclear antigen IgG typically appears from several weeks to several months after primary EBV infection and may remain elevated for life but it may become undetectable in certain immunocompromised individuals. The final interpretation should be done in the context of other EBV serology panel results. Performed By: #### E BVPNL ####[facility] LABCLIA [id number] [address] EBV VCA IGG, QUAL Positive Abnormal Negative [facility] fawad Comment on above: Order Comment: Speci [facility] Type: BLOOD SPECIMENOrdering Facility: [facility] Address: [address] [place] [address] Result Comment: The result suggests recent or past EBV infection. The final interpretation should be done in the context of other EBV serology panel results. Performed By: #### E BVPNL ####[facility] [id number] [address] EBV VCA IGM, QUAL Negative Normal Negative [facility] Comment on above: Order Comment: [facility] Type: BLOOD SPECIMENOrdering Facility: [facility] Address: [address] [place] [address] Result Comment: No s erological evidence of recent EBV infection. Performed By: #### E BVPNL ####[facility] [id number] [address] STATES [facility] INTERPRETATION (EBVPNL) Reactivation Normal [facility] Comment on above: Order Comment: [facility] Type: BLOOD SPECIMENOrdering Facility: [facility] Address: [address] [place] [address] Performed By: #### E BVPNL ####[facility] LABIA [id number] [address] Consultation Noteon 01-21-20 Consultation Note [id number]#[id number]:127 Normal [facility] CBC W Ordered Manual Differe ntial panel (Bld)on 01-19-2022 Basophils (Bld) [#/Vol] 0.03 10*3/uL <0.11 k/uL [facility] Basophils/100 WBC (Bld) 0.5 % [facility] Differential cell count method Nom (Bld) Auto [facility] Eosinophils (Bld) [#/Vol] 0.13 10*3/uL <0.46 k/uL [facility] Eosinophils/100 WBC (Bld) 2.3 % [facility] Erythrocyte distribution width (RBC) [Ratio] 12.8 % 11.5 - 15.0 % [facility] Hematocrit (Bld) [Volume fraction] 40.1 % 36.0 - 46.0 % [facility] Hemoglobin (Bld) [Mass/Vol] 14.5 g/dL 11.5 - 15.5 g/dL [facility] Immature granulocytes (Bld) [#/Vol] <0.10 k/uL [facility] Immature granulocytes/100 WBC (Bld) 0.2 % [facility] Lymphocytes (Bld) [#/Vol] 2.33 10*3/uL 1.00 - 4.00 k/uL [facility] Lymphocytes/100 WBC (Bld) 40.9 % [facility] MCH (RBC) [Entitic mass] 33.9 pg 26.0 - 34.0 pg [facility] MCHC (RBC) [Mass/Vol] 36.2 g/dL High 30.5 - 36.0 g/dL [facility] MCV (RBC) [Entitic vol] 93.7 fL 80.0 - 100.0 fL [facility] Monocytes (Bld) [#/Vol] 0.33 10*3/uL <0.87 k/uL [facility] Monocytes/100 WBC (Bld) 5.8 % [facility] Neutrophils (Bld) [#/Vol] 2.87 10*3/uL 1.45 - 7.50 k/uL [facility] Neutrophils/100 WBC (Bld) 50.3 % [facility] Nucleated RBC (Bld) [#/Vol] <0.01 k/uL [facility] Nucleated RBC/100 WBC (Bld) [Ratio] 0.0 /100 WBC [facility] Platelet mean volume (Bld) [Entitic vol] 10.0 fL 9.0 - 12.7 fL [facility] Platelets (Bld) [#/Vol] 184 10*3/uL 150 - 400 k/uL [facility] RBC (Bld) [#/Vol] 4.28 10*6/uL 3.90 - 5.20 m/uL [facility] WBC (Bld) [#/Vol] 5.70 10*3/uL 3.70 - 11.00 k/uL [facility] Comprehensive metabolic 2000 panelon 01-19-2022 Albumin [Mass/Vol] 3.9 g/dL 3.9 - 4.9 g/dL [facility] ALP [Catalytic activity/Vol] 107 U/L 34 - 123 U/L [facility] ALT [Catalytic activity/Vol] 103 U/L High 7 - 38 U/L [facility] Anion gap [Moles/Vol] 10 mmol/L 9 - 18 mmol/L [facility] AST [Catalytic activity/Vol] 326 U/L High 13 - 35 U/L [facility] Bilirubin [Mass/Vol] 0.3 mg/dL 0.2 - 1 .3 mg/dL [facility] Calcium [Mass/Vol] 8.7 mg/dL 8.5 - 10. 2 mg/dL [facility] Chloride [Moles/Vol] 94 mmol/L Low 97 - 10 5 mmol/L [facility] CO2 [Moles/Vol] 25 mmol/L 22 - 30 mmol/L [facility] Creatinine [Mass/Vol] 0.88 mg/dL 0.58 - 0.96 mg/dL [facility] Estimated Glomerular Filtration Rate 87 mL/min/1.73m >=60 mL/min/1.7 3m [facility] Glucose [Mass/Vol] 96 mg/dL 74 - 99 mg/dL [facility] Potassium [Moles/Vol] [facility] Protein [Mass/Vol] 8.0 g/dL 6.3 - 8.0 g/dL [facility] Sodium [Moles/Vol] 129 mmol/L Low 136 - 144 mmol/L [facility] Urea nitrogen [Mass/Vol] 13 mg/dL 7 - 21 mg/dL [facility] Direct antiglobulin test.karen y specific reagent Ql (RBC)on 01-19-2022 DAGT, Polyspecific AHG Negative [facility] FERRITIN BLDon 01-19-2022 Ferritin [Mass/Vol] 602.0 ng/mL High 14.7 - 205.1 ng/mL [facility] Iron and Iron binding capaci ty panelon 01-19-2022 Iron [Mass/Vol] 140 ug/dL 41 - 186 ug/dL [facility] Iron binding capacity [Mass/Vol] [facility] Iron/TIBC [Molar ratio] [facility] LD LACTATE DEHYDROon 022 LDH [Catalytic activity/Vol] 435 U/L High 135 - 214 U/L [facility] RETIC COUNTon 01-19-2022 Reticulocytes (Bld) [#/Vol] 0.73205 10*3/uL 0.018 - 0.100 M/uL [facility] Reticulocytes (Bld) [#/Vol]o n 01-19-2022 Reticulocytes/100 RBC (Bld) 1.5 % 0.4 - 2.0 % [facility] TSH BLDon 01-19-2022 TSH Qn 4.180 m[IU]/L 0.270 - 4.200 mIU/L [facility] VITAMIN B12 BLOODon 01-20-20 Cobalamin (Vitamin B12) [Mass/Vol] 923 pg/mL 232 - 1,245 pg/mL [facility] IntraOperative Documentson 1 03-08-2021 IntraOperative Documents [id number]#[id number]:127 Normal [facility] Physician Referralon 022 Physician Referral [id number]#[id number]:127 Normal [facility] Coding Summary.on 01-05-2022 Coding Summary. [id number] Gh0bWw+ PGhlYWQ+EX8RXSBfQ21gwADweQ4 PK5rRGA8PZATUFDHXYX8JWI6yqH B4KUzbG0BmnrBo MvrapJCcBX66MIm0JKG8jPnkHSf deV8smOGiR0o8ZkIkQI35iO84HX hkRTUkTnK7XqNbfgigsQEj K5aaFhWorCCyZvp+PHRhYmxlIHd qRCOtJPpiJMBjInPxbXcmTJ5eHt 9yZGVyLWNvbGxhcHNlOiBj e5goOAMwNGvwHX7fdMkfH2RukTB 5UWAkk3z6Gn78kKF+FNIlMIE5zP ypKXeyr052XsDwz0ttNIW8 kSDzSJllBSR1R50mv3H0NAWzSCY kKQF2dZK3zI1mkWszbmgtM5UjgP BpVkU8BQM9sQDgaR5owMux vvnkdX0pTxp+U59WJH8DYGHYGG4 TVho9S6XvUorxlYN+PE42BLWpAV 55vXNzwQNvv6izhNa4VmAg YTLiMNS2bNjhNQrlo5SiZMRxM20 ebQIdd7P8DPUdsZsiyCJcOhEirJ M5fS3kAUxftkene4hmbaqy Igelb1qrtw44zX63X86zNSwvSCM fPXN1JJToLVQrwIjkre6jxA2eEj 8+YTryx5btj2cubEc0IwRv WNHhflBniKtvVDZ0w5JwHl49N8M pkThgw2QiQhp4is62rWDug6V4vO F6TUhgYVPylL4eYAlpYyS5 WAExNaZiuX26vKBpOHciXc6jcCm uiZkzGO2dWHZmlwqcBICkkG1bFE RhkVTbbFsdFQ0hEAYiwsdn x577RgZrWEN2SJAeaNIfA2UpiN5 hKxYlLRCeEAUpC9CkzDQtFLcrU4 25PEreTiT5ITUpxnBtS4Ni ZHDoaTmlYaY9d1P9Kl8Ok0Mtzbj uRZV3HPwuTLQmHhM9ZwPoSeH3A3 UvCeu4ODYgnViqHQ5xG1Gv WRWsvuvvnunfhIM3UTMdWIBqmB5 6zZGpHJwdAp2pc4E6g479RZThLM JaqK63Nq1yzYloOTTddJLN aI2rvkyhh7xzomwzSwFgAWSsARx 2GMz9QBIyhTlhKqXwFPN3HsO3IX C3tBLwhY3pxGstogooqH6q Oyc+Q61duT0tYLK3XBP1vksmARJ dzdFvJH27LV03A7FhTjlwgJQtbB U+ATWdrfWwaHqeOT0sGwFg n9whs2RmZTyzM7MtZDObHEcyNve 7AWGmGSD3bEH4iD6tSOIqRVfid7 Y8hNP0E7BttbSocu4rn3ql HZXsVFgiA00ktQPfk7H9HFIlpWY 5SZIrmJutDsPvaK48Yqc+PGNvbG pgs8NhWqiuz1zct2xbyCo4 UuZyJBQrinCgkNtzLXG0s5WwGs4 5V34hPHwjSPKxAJZyIAKkZRFmjW gqnn5peT2gKh4+PGNvbCB3 nLH3eF4fFZTiGiQ0DWvaS147MbG rhVEqNjzyy4cnl1mrxJp2AyItRH JgxpXyhXgqKYS4j5EhDf08 G91zQLpwYFUcCFIiJPLdSFDsrSp pqk1wcE8eVp9+ZM8nt5qlfm79mN 48dHI+KYSsSJM4gOowPRcr IUQnzJ8tFVhzRzI2DNJnDhHnnZ9 0fMGnJOprJj4seMmdhHgjBR5hAA Mzocbcl417QyCyq4vxZCDm xDTxQQbzXXA9W61ei5G4YWIwSRY vBLQ2gYT5xN8ueJyvcbgrmFYvfU akwcXqqGenBVdrFTkuB461 IHRvcDsnPlBhdGllbnQgTmFtZTo 8F2PfDvl8QGKlcDxrNN2lsTEnXG fwEs3vmMhuiRldBP6yZQZd ystrr820QbBqy4ldYGBkuREiLUx tGGU4V92qu2B7DMRuABGfPCP7vV H4oN2eqLtkscnzcWUuaAhq ebOopYyfGDwcPEnaO163CRMgoLn wGjCuogUdLHExmBY6JG09BJ56tM Kfa7U5rZN9W1UgMNIsefca pozxaNV6TQGtOOAxkJ28Lm9wkAi uWk1mCAHuSWC9TBLcfXWcR5TvpJ 7hMwUfMCPdSBErP6PtuKFv PCysH871SGrkYyD6ECWtcvNuL6D wWRTkaQcqEsQ8o0P4Lu7ZE4R1DZ 93ZJ03yPLnu9F1iNM1H0Op IPBgqxruygfvpXA3HQVtKNOglZ1 3Ta5ipUtyGd6aCHZvSTS2VEJouT DhI0UomP6cEbKgCWPpDBTs V8PsrQGdHSrpU983GIpeFbZ2JCX vzvTcO5PkLBGcgFjiGoO3k5L2Cw 7METu4GO65XC54kMBla1P8 cUB7A6EaBVTtajggokyfwDU8TVI zMZNavY50Gz0bvJgbMr7mSTDoSG M1NITnnFUnK7JruC9tWsGn EPMiMVLuB1QmrZVhJOavL025PMq xLtH8ARVkuxHfM6VcAYDroUqjLe I6g0E7Py9NCNXnOX80QDZ7 jXZ9OT88HA96O2CzIqlqoHSbqEG +PHRhYmxlIHdpZHRoPScxMDAlJy ZxbYoiFW8cNx7gSSLcBHMv nAcsaYOlUcTxm4llQPLaAZroID7 jaJfbV3JxfAT4ZWTaq7e5Tu47E9 6kY2PxwBD+SHYbnCA4xED3 lC5zOtSqAlL1OKuhV256KwOpqUE wPyrts0twa3ndlIm2QmU4DCCrxj SbbTnsJMX1d1ChRk89Q21c IHdpZHRoPSIxNSUiIHZhbGlnbj0 vaL8bHy8+DJKpwTB2gRJ0vB7hMd XqGfO5LTdhV543LuJdjPQm Eqkqp0wel6izqRq3KpUiLVQzueN qtNrhNBX7j3NcHm60X0GscSsfd4 YjGbs2tn00vHEkm5I0aSB4 K9QxCWXigwyoxUUvzCcuDR9oAMB qjjeyTZEryH6nWPVuA1p6TmTuCc V3XDuoG3OaeqK1UTDubNKs QPixZRJ0H36yu9F7QVQkWGLaUAD 8yIQ4lR1ahDtiphifcMKzpYblqo DwdEjdYAhgIWgyO910HGVp mOgkTPWurM2mKWMhqVGouSjnNS4 pALWjjlkuSkKZV1tTMUkfKNTQZc AJAFu3X6ClSnm8FUPkuHxo IQ5fpQWeEOhvQa6dcQrmpRhjGV0 rPNDzzlliNTPdyK9oIDBckCZgdK epWU0qFFSjizadv124RxIp PFG6MDFvdKPhA5XfnD1mLfYsNSH pZFSlL0OiqAMtOBheA697PJvzUs I7WHZmfvAaH5FpNCNsjMbg MbQ7o7N5Tr3wDX9iVM8oDCn2KZ2 0AY83bQXif3Z0zGZ1D3TpAGMgrm nawneyeML5SXZzQVMykM76 yXExCNmqGr3uh6U5z985ECLiEBT lbM34Lz1tnVucASBvkJEVhP0ibm zdy7wntwjaSbIoFMXnFMk9 VPq9UKUpdQkiNbKzAGV3XxX6BXO 9tQNcjH2hoLrhuneomT6uKfu+Mz PlOPBdruS4M6MnQqb0TTFy xDfdVN1ctWIhJAmwDg5ruLmbjEm dLA1pTKGbhleyOZFpmZ1wXITssD LtmFpvNI0zMCMigbyfo306 AuUnELO3QTYfgMFxV1WluP4fLmC hSWBcDGFlV6CiuLQsJFzdB148UG ghVcI2SRJonpMyP2RgMQFx aPtfEmW3x6U0Kc5ERU7jyHE8U2S pWvs7ZNUugSbzPS8voZEmOHdaJf 4owFyaeEnyAP1nVSLiircx WTZrdT8uVHPxvXIlyZwnPM9bRYU ivnjen610IxCzOXP4FUDbiWBiN2 EzzN2lZoQkQHKiEHLfI8Bz nKEuLWweP848IFniMxT5ZCAhkdF sZ9FdHFWllDbdCgM7p1U2Xq5QYI EgNTKkmLGiYwS6L0SlKbkz dHI+HT96KWUjNZ97fBUkfRVne0s siEv8ApWqBPGsUTD7aDboVKazk4 TmTWKuY61cxQLkg4U7WZGc wSysrPErAyMweXV6oW9dPTwcocj oa3ykafclJscec3podz31lP52J7 9sIHdpZHRoPSIzMCUiIHZh aZfnoq4hyQ9bOu2+XTYutPS3kSD 2vB3gXfRiOtV8QDawY815LoFjmZ ArIrnxy0uvy3tgoIo8XvVo QLAdwkTfzUpxETR4n1OiLt82O17 sIHdpZHRoPSIyMCUiIHZhbGlnbj 4haG6lCn0+JZ9ba8lnio22 mV82gTG+DFNsDAX3bKxiERduCMR irE9zNHgdStS7KVRzKrOpxE17cZ OtOSfjRc5kxNdffFosZY1a ECWccrkev630NnTut6haZMKjqJM uHRaoCCJ5N00um8M6LNZcDTHfTT N0eTK9tF6eiYbqzdfedVFj oOgeptCqbZibVKzaPGhkF627NRE gzBmtHkMowUWxD4xegeYNME4vMj wvdGQ+QVBiUFZ0sHnoYKko XGZbzJ9lQNDpR8q3AuViCzN8PGd fF5IkopB7IBWstHHlJNHigSGDtL 4mwggtx8jxzhsqEiKsWZZe AAf1NXa9EBVriYoaFxSkDUO8PaG 4KKC8oUUvwW7ryBmovvwmiE1gSv c+RklOOjwvdGQ+PHRkIHN0 vIcsUCevPSOhgI0tLPQtK1n7QrV aAoS1DDqbT8LmhoF3YLOwpOZdSS AjxBQBtP9kgjngm6adrbrm OeJxHJUvYUh4MWk1BPWovZngJvW yUBU3RxW9JGG1gPBrjZ8oeWigss nrvI8kKap+TVJOOjwvdGQ+ THMcKAT0nLgoEBobODOfbC8jRLQ aS2r5UnKmYpI2SVtbI8ZafeH3VT HapQNfMIWccOQLmD3tmhbn c7zvdfrhYjFgRZAuXMh2UGy5BHA tnRggFwUrMFV3BfG9PSB5pUWuvL 5alLlgjovaiK5lOtv+UGF5 OAE2RN44ZU84K1ZcGhlueTZwcUV +PHRhYmxlIHdpZHRoPScxMDAlJy WilQqjHQ6gOh1uFJMdUIDc bGxh (more content not included)... Normal [facility] Main OR Intraoperative Recor don 01-05-2022 Main OR Intraoperative Record IntraOp Document Type FT Summary Primary Physician: Obed MASON MD Finalized Date/Time: 01/05/22 08:30:21 Pt. Name: BEN BARRO.B./Sex: 1985 Female Med Rec #: [id number] Physician: Obed MASON MD Financial #: [id number] Pt. Type: O Room/Bed: / Admit/Disch: 01/02/22 07:43:48 - 01/02/22 23:59:59 Institution: Case Times FT Entry 1 Patient Times In Room 01/02/22 08:46:00 Out Room 01/02/22 08:59:00 Procedure Times Start 01/02/22 08:49:00 Stop 01/02/22 08:55:00 Anesthesia Times Start 01/02/22 08:46:00 Stop 01/02/22 08:59:00 Last Modified By: Radha Allen RN 01/02/22 09:00:04 General Comments: 0852-EGD completed /AW RN 0853- Sigmoidoscopy started/aW RN 01/05/22 Chart opened to review and send charges [facility] Case Attendance FT Entry 1 Entry 2 Entry 3 Case Attendee Sophie CHAVEZ, Alma Delia Brink, Obed Taylor MD Role Performed Anesthesiologist Scrub - Primary Surgeon - Primary Account Processor Time In 01/02/22 08:46:00 01/02/22 08:46:00 01/02/22 08:46:00 Time Out 01/02/22 08:59:00 01/02/22 08:59:00 01/02/22 08:59:00 Procedure EGD(.), SIGMOIDOSCOPY(.) EGD(.), SIGMOIDOSCOPY(.) EGD(.), SIGMOIDOSCOPY(.) Comments Dr. Reyes supervising Last Modified By: Tiffany LOMELI, Radha Allen RN, Radha Roy RN 01/02/22 09:00:52 01/02/22 09:00:52 01/02/22 09:00:52 Entry 4 Case Attendee Radha Allen RN Role Performed Hot Room Attendant - Primary Time In 01/02/22 08:46:00 Time Out 01/02/22 08:59:00 Procedure EGD(.), SIGMOIDOSCOPY(.) Comments Last Modified By: Radha Allen RN 01/02/22 09:00:52 Perioperative Protocols FT Pre-Care Text: Implements protective measures prior to operative or invasive procedure, confirms identity before the operative or invasive procedure, verifies operative procedure, surgical site, and laterality Entry 1 Procedure(s) EGD(.), SIGMOIDOSCOPY(.) Patient Identity Birthday, ID Band Verified (select at Check, Patient least 2): Participation Consents / H and P Anesthesia Consent, Operative Site N/A Verified HandP, Surgery/Procedure Marking Verified Consent Surgical Site No Laterality Verified n/a Verified Procedure Verified Yes Correct Patient Yes Position Verified Availability Equipment, Medication Prep Dry n/a Verified (If Applicable) PreOp Antibiotic No Time Out Alma Delia Johnston, Given Participants LÓPEZ ALFRED, Tiffany Clay RN, [place] Garcia Kirstyn K Time Out Complete 01/02/22 08:48:00 Outcomes Met? Yes Last Modified By: Radha Allen RN 01/02/22 09:09:18 Post-Care Text: The patient is free from signs and symptoms of injury caused by extraneous objects Allergy Information FT Pre-Care Text: Verifies allergies Entry 1 Allergies Reviewed? Yes Allergies Reviewed Self/Patient With Outcomes Met? Yes Last Modified By: Radha Allen RN 01/02/22 07:49:04 Post-Care Text: The patient received appropriate medication(s) safely administered during the perioperative period Surgical Procedures FT Entry 1 Entry 2 Procedure Description Procedure EGD SIGMOIDOSCOPY Modifiers . . Surgeon Description EGD with duodenal and EGD with duodenal and gastric biopsies and gastric biopsies and SIGMOIDOSCOPY SIGMOIDOSCOPY Primary Procedure Yes No Primary Surgeon LÓPEZ ALFRED, Obed MASON MD, Obed Start 01/02/22 08:49:00 01/02/22 08:49:00 Stop 01/02/22 08:55:00 01/02/22 08:55:00 Anesthesia Type General General Surgical Service Gastroenterology Gastroenterology Wound Class 2 - Clean-Contaminated 2 - Clean-Contaminated Last Modified By: Radha Allen RN, RN, Angela 01/02/22 08:57:40 01/02/22 09:10:05 General Case Data FT Pre-Care Text: Classifies surgical wound, implements aseptic technique, initiates traffic control Entry 1 Case Information OR ENDO 1 FT Case Level Level 2 Wound Class 2 - Clean-Contaminated Specialty Gastroenterology ASA Class 2 Preop Diagnosis EPIGASTRIC PAIN, Postop Same As Preop No INDIGESTION, NAUSEA, VOMITING, HX STOMACH ULCERS, CHANGE IN BOWEL HABITS, HX COLECTOMY Postop Diagnosis EGD- small gastric Outcomes Met? Yes bezoar. Sigmoidoscopy-internal and external hemorrhoids , normal ileorectal anastomosis Last Modified By: Radha Allen RN 01/02/22 09:09:37 Post-Care Text: The patient is free from signs and symptoms of infection Skin Assessment (Pre Procedure) FT Pre-Care Text: Implements protective measures to prevent skin/ tissue injury due to thermal or mechanical sources Evaluates for signs and symptoms of physical injury to skin and tissue Entry 1 Skin Integrity Intact, [place], Warm, and Skin Abnormality No Dry Outcomes Met? Yes Last Modified By: Radha Allen RN 01/02/22 07:49:26 Post-Care Text: The patient is free from signs and symptoms of injury caused by extraneous objects Patient Positioning FT Pre-Care Text: Identifies physical alterations that require additional precau (more content not included)... Normal [facility] Coding Summary.on 01-04-2022 Coding Summary. CD:[id number] Gh0bWw+ PGhlYWQ+CA6FXRKmG54ozEBlmX2 EZ7pAJJ0AVLJWYAYUQN1OQD9wyP V1VBcqX0XbzqYc IgjakVKdBO32BUq2TQS0wXkiTAe hwX4drXZhQ5d7YhVxCY08tL03DC zuXVKoPeL3IcXutuvqiHGe I8myVcHlbSSfQep+PHRhYmxlIHd gRFFgMHslPLNpHlVehDotXG2aXk 9yZGVyLWNvbGxhcHNlOiBj r0aeYUXyRTyyFQ1mwJmpS8KcvRP 6ECWpb5v3Al92qPR+DSTfYLF1eA kaYVeuz456OuFjd2xuANC7 gDUpVOulEAU6V31wm4E6VSJgAFB zYXL7mEY8kI8fcNvnvcynQ0PllA SmIaH1QDS4kOGuqS2qxCuv knjhrB6kSti+R14XPV6MLAKLMN9 OSfg6H7KuBozkhAU+PR11WELeRS 32yQXonFMrm8odaRg3ChKc NKInUVK1dZzgTQcqp3FxGXOtX50 mkZRzr0V3ABVdoSszeQTgCjBwrF I2rT4mKTvkxygaf1oqgibx Pdcwa4vywr48zN05L16wMCbjQAB uJZH0VUOkKKKwqPjwmo6keK0sEu 8+KQvvf2eia5usuJo6CeRa EDYxtwYurRltAXA6m7KvBq46B2Y djNkul8StPnh3yd97dEOoy9Q1oE N3APeuAZQmqG1fPPvrOuK3 NISaJyWhfQ81bHMfMOteYq8yxQz qpIpaJJ2gKEOfxrlqMJGzfO1kHV LkcGMjdKofIJ8sUNUydeyn l168EpBaMLZ2EETtiOTlH8QbwC4 kSjFrDIMgKOIwL2FbmMUeBTsgN8 32USoiBxE4VPXlulWpG9Kp HZUatIjyKkE6e2U1Qc4Xt9Vcbac pFHS7XRkdOVRhXqV1ZiNvYxZ3F9 WlBbc8NPBriXmsYK5bD8Bh CUErzwmwrfqamGP4AFJbRIWdpG1 2xLUnRDqrMq9jf3S4y871EJIkBB PcxE85Nk3uhQygYATwcNVC lX0xvyjnv9svfbgwNgSgMXUlGZq 3RUa5BKYuxXiaKjYkTRY2MqM5AR J2nGUkgG2hqJbsyugiuL3n Oyc+Q73ddZ9zRHT1XRO0ijuyPVW jgzDhAB89YS50M4RiMnrtqCZtyV U+NAHvewXezXhaMA3vSaFg d7orx4NgHKtmC2XwVVYrQMuxNgm 5MAVlDEL3pNN1vW5kAYVlPYzff2 L8sHM2S0YqrwRlet2fv6va PVOrIZqeC33waRMtp9B1DTSthMV 5ZLEtfNfnQtMyfV45Bzf+PGNvbG uwn6WzZwdmz7pog9pujPj3 CfUuZSChsgTtzLzwXEQ5f0TdWj8 0L61lJUtjGDGdQCIdMZUiIXKzmX pnkz4njP0cPv1+PGNvbCB3 yON5yV5zWHEaXiM7LYdsZ636TbW jjFMhYewfi9lch6gmcTz5EmFeJF SphcMswDucFVJ1o3IyGw13 Y96eKOnbQRDsTRBhPNFmENJsxBp yqs2arD5vCg0+ZH8fo5hrkz55nV 48dHI+LSKrNMP2qDlySNgk YMFfeH1yTUvuObV8BKJuSuQkdN1 2jMJuKZgcBu2qzCezdAdaLR0fCB Flksuyb684NbLwn3xiRMPg nGIxFIpkNEP0A53aw0H1GLYrXBF uBJO9rPE9mB6fvRgdlvstuOPghR ynisSlfOjlCDhiZIcaR848 IHRvcDsnPlBhdGllbnQgTmFtZTo 9H7VoJuj0NQLzuClmZR6tlSZdYU vpDx7vdUcxiWbxTW4gHRJy cbzpt196PqEwq2vsOMAabFSyEJk wJTX8M14do9T5YJHpQMBjRWY1nP V3eU7kkWgutckzsCUfzMhl grBmrQtjSPkaGIauK473HMEvhKk uGdKnftWwSKHocSR7RB46FP29xK Duq1D0kKE4Y7PcVRYnvnqa sdvacIA3ZDHtZTKvpR96Bz5dhNg eAb5eHESgNIQ2SWMjwEJlR2NgwD 6hZxLqIWVdSMJmE7JzdBRz CPaxR649BGmvVtR6LDLkjcLgT1F hSTOcvNbnHhD4x5H2Ua3HS5E2OW 25LE05yPJwl5E0tTT8N0Gb TZLsryntsdykqFH6JCPbZLWkxH7 9Lv4fkJxfVd2vPBTdHTW9VEPrrM IdT0EdrC3uNuZjYSIbANWb D2VixCJeREczO348HNfrAjH7GKD aloXtA4TgXEEkbLrnJlC7m6G8Ma 4SOEc3GS77UM66dFRpg3H6 iLU8Q3WwIKAvcilpfwoqyZJ6BAQ zUWAlhZ09Xo0toHisKa5aQSPmZP T9IWJsrUEgE4KonV4cHhJs EYGaVQVaM5XeuFTmUFoyD352FVf lClM0XFBrnsHaA4HeYGDbsHfaTx L8w8D6Ce4DJNEcKH24GIN7 zJA9QX98DJ86C1DrJcutiHSucDU +PHRhYmxlIHdpZHRoPScxMDAlJy TaeMkyCM8uYi1aQWZaUQRc bMykdZJsDrNtl9mqJSZqRYhcTU8 tlLksF9TndMH3BKRfw3f6Eq41S6 3oD4McyWI+RJZqbOD1jQR8 uQ8jPnXpOaM5WFgnC367RsPnaKQ fWsjhy8hmz1edrDq8JzG1AACarj NhaIyiHXC6u3RgYo90L73x IHdpZHRoPSIxNSUiIHZhbGlnbj0 hdE5rWm8+XOQtyQJ5lGH9uH4kUn FtBmX4OWviJ129ZgQnvAZu Gpgfy1saz3idrNn3NySfMTGwxsJ iaKxnNJF4v2ZcFs49I1XloSugf7 LsNos7qm34oDQgo3Y5rKJ5 Z7UjQPHrrjfeeYZrsObhHE8bWVU foituGJMrpK9pLIXzS8l0LbAuRe V6IXeaT9TeidN3JYTdvVHl QUqrUAF5R34dn1W1WTYxJPPlTVL 1xLW5vM9ybGvilimjwFUspHxlkf TorObfUNszOMhpD369AEDv kHmnAGCqbA8lUBRvyWUwsQcgTW6 sBCLjnghvPqOAB4jDJWlwLKPVAa HRUWx2T5OsMzm8XJGdgSje AT4kbOJgCWqcQj2ygSqmyVapPH5 uDPWtapmhNXOnuQ9fXMRlkUYgvN nmSW2bSTCwfaxfp451SfMn IYJ0AVMcqCHiG1TljV1zAjZcWPX zUQNjR6PpjRAdYPioX146HZszTu E0MTGqqtWoY4BkAYItgKzd EnQ0l2M8Vk8kEL4mQZ9cLNs0VJ6 0TJ32bKGls7Q6sQC3S9BiPLDdrs wfrkrdgTU2QEYhGURkxL54 jKVwHQfwCg6nz6H0h660GGWhULZ cfV43Mi0bkLqeBWBmnYVNhR5zle bjh9hinpzvLxYoEWJxGSa3 ZQl7BKPryXolDxInNEI5AsQ8NTC 1zVNqqI4xeKvtkssxzF1rZke+Mz PzRDKwbnY5W8AsTcv6JPWf nZdiRW9cjSJmILstMp1ylNdcnKx xBG2oCIRexzjaQCDxgD4bYUKmfL EofCvpWD7nGDLbowofw503 IpHfLFV2AYQabPAuK0SgzA1kVxJ wOXXnTPClI7RtsUStTPonD809UF ajYoN0HGSsuvHnJ0NgKFGl fNtnOiA1e5U7Oy4HXH8llGQ4F3J kZyh4VETveMyaGC2qmWBsUEttHl 2rfFlspPmkHL6sUDOjiswv IGNwzH0dCSMrmTFnkQvyAA8pXKG nxmkqf366IrDxCEN5KTQovKQrX2 RlhG7rQtNvAMSlUAHaC4Mw dFJfYAivB533MAfkEiA6EVAlgpC dY8GbZONflIwbBpN6r5I9He7ImP PnUZRxBP38FF28RM51I7Za PjwvdGFibGU+PHRhYmxlIHdpZHR nPUhlWPHyAaTmuSyhGU2eFq8aIX AfVPXwcLtmiBQsEmBlo9xm LKQqDNxvTE2elGdaM1EhlAS1NKM lb2p0Do02P67fX1QhyAS+PGNvbC Q5nAU1lU6mBjEyYmG9ZMxa F915CaCipUMqJhoby2hfy3hjdDw 5TfFoOURmpvUivZdaYQT3k6KzFe 24Q47jMJfgTEGlBHZfPSUr NHKegZskry4qaM9aZh6+PGNvbCB 8zRB5zZ5pHtPaPgM4KCzeU989Jl NoxMUnCjyfQ52cG1VgbJQ+ FZUbDtw4WUOozKdfSZ4syVWiNJb uWr5lJQH6WeXsCdOeCRpqI6KgFA EktlohsjzeyGX7EMKdFXGo eJ79Id8alNelAk1wCOPfMZY5OBO gjDNbW8SfjD2tQhAiAXCrJFWiA5 PntDFsDSckE248LGxyOgQ7 TUWkwfExO6TpCVUyfFjwInN1b8M 4Lw6HmTlyeBWuYC2nEqVdJUp4Z3 ZfDzz8ZWMrsAdsER6itOBm DBbgTi4orYuduSkcDY2oTHUdkdd jn055JfNzg6ofHZCauHDzQAayER H0L79ca2C3KZPjUBApIKT9 qYJ9xP1cnGlscwnfwYFkyFieolY toGhaYXrcOIlwK511DXOuhQqeUv NNStk5L9XmZum6RWDafTpj WI0mlCIqJMeuQs8opKsspWzmRS8 vYTUkfiolz912QnGsc4uzTGPmtK UwOKnrEBY0Z02mk5N1NVKz LKLoPUK5cMP5aN5hlUthxmqbyQQ zdWwzorThyFysAQpzNAexQ631HK QegEalIg2PTsw8L1AmYru1 UMZssWqcOP4kzVPdWColRu8boMy mpOkpPS1wQLPqhtrhx337UyWkg0 jiXYXuqBJlQDoyLJL1K60w a7G5GHNkRKKeTEQ8kZO1bB3bzEy nbjogbGVmdDsgdmVydGljYWwtYW vdJ682QCPmqIzkWzKyhDLu OjwvdGQ+QT28ha11Z5AkAxhyRax 1GWTzWMC9aDM2qL1wMLTpWIxnd0 F2vKE1E9FoqqYkzm5mx5py YXBz (more content not included)... Normal [facility] Coding Summary. CD:[id number] Gh0bWw+ PGhlYWQ+CW7IRKUzP68tvCYqtO3 CF7gZZJ0EHMGCFXRRJX6DIT7fyR H1RExlN7HkifYu SwvluYQlJA41AMw1PHJ3rUmqURx wmQ1umGZeW6y3RiXeJP34mM33LK tdAKMtLnR3XfIdybewqWMm J4tzBoVlnALzRdz+PHRhYmxlIHd mQSFeCFvrOUMjVbSomUxyJO5xTn 9yZGVyLWNvbGxhcHNlOiBj h8vtMRPkGSywCY5pcOtxL1SjvWJ 1AWFie0t1Kv90oOQ+WTFfLKA7rX irBKabk121SmXiq5vbOXK3 vWUsYRmzPGM0G28xd3D6GXDrXWY sPWN0yLX3wU6kwKnbafwtB7NebE IjNqO6IXE2qCCzeI5ajYct krqovC7pNac+C35PVO6MVYSOSY2 WAnl6Y4KtWlzvpKX+EM09SBBrTB 56oXZwuKEev5ihdYl9WtLi LCQzNHY9mYhwSBufu2TcOBTxK27 xoMOhs5A3KLOaqApaeWMlBxJiqF W6bK5fSGsolfygn8hzgdqk Vsarb2tuwq04pN72T81oFYmmXEC wRHH9EFNzDTQmwGtqra5xbR7lUc 8+XInin7din8hjpDx2LmFa YETecmVmxZidGQL8u8FxRo41F8R siGomw2CuDzu4ro19xTLwt1E3uC H9MOngCQKsoT0xCQccAuZ1 KFHyOrKcsO81zXQvPDfkTq5chUh hwKfbVV6tFEUaqjuiZWOgwG1pRL CacIJqbNvjZG9xMVRabkiz p016AoYpNRS9BZZwpIEfS1KdxJ5 wMbKrYGHmVCCfD6TofCQbZSxeQ3 13FIuzCeC3YWEqaiRjT3Qu PSOqvIvnZbX3c0E7Ak6Em7Ykzbq oNXG2XVliTGKbNbE0CqBrNnR2H2 PeYev6PTFefAroEE8yO2Ta PQYizoycgnvpxCU8BIUeYYTfqI5 9eCNsQNznMc6vw6W0u016ZWKxOC JovL96Nu0tjRtiRDHysTJI lG5ohwcch3vpymwfOnOjOCAiGAr 5DVr1XKEtbDanHsFvZLM7IdW7VB P0dZMaqZ6jwHtolcqepZ4u Oyc+K66muL3uYNV8KUS7gcdwULX ejgVvPB39OB68R2YvXgwcxKJqsL U+IFGsatMmuAlpBI9lWdGt o2kfd2LzVTdrN9CmVOEsHWegTjc 4JSEbZLA9tUE8bJ8oHUViNKsin9 M7vOH7E4UwowPrqy3em4iz NGWrTOkbG24pxHAsz7K2SMMxkSY 8SRQkiCgrUhHcxM12Haa+PGNvbG hjg8IkSvtwe1ppa8yebEc0 FlUhUFLrkoUdmEkePEL8h5SuSc7 2F45oPKftULJfJEQsCNRvVLSbhG mwfz7ijQ4sEu9+PGNvbCB3 rBF4vS2bYIQvShV3TNbsM809KqW biPWxDtdyp2jrx5tioNr4IkNmDH SusoHsmLjkNLJ2t8FbOq50 K35lTGrqFKXmTHDlOUNcBKAbyOv jgs9qwH6jOo2+HC2tb3apxt00lF 48dHI+FSDzWZZ8uPxbTSou SQRzaW2dISuiAtH3EZKzHlUtaE8 8kBQrMWrlTd3irAwikKwhDP5qTU Ukhnpgz184HhPbr5qvMCVu xGVyCSbfUWW4V73oh7M3WEUuNZH pYYM8yRY6rJ9vtBnzbwoetTYrlV oypyAlyNgeSUgoUAffQ978 IHRvcDsnPlBhdGllbnQgTmFtZTo 8R1VeAvt3YNZftOhaKC6dgRObGA spEl4rsDputCrcEZ6lFFUk wapzo304SaDhn4pvHOMzxXSgQDx eKPX4R88pt1E7IPWxVVQpRME5pA X8hN9yuUgvtcfdzKUqbMow gzVcsJpyZDteHAgfO454SEBqrTn aYkEwwwQwRJXsiCB4ZP99IJ68jX Cbz1M3wRO9U1ZpPMAfxall htemsIC0SFIpBOZjhT10Zc8buKm pEv7iBSYaTRU9IQXggJBtJ5XisZ 9rKeDwMWOeOYCaI7YinMKp BQciW305EFygZtG9RKFikoVmV7T qZKIsmXmyYiH0j1D4Nh4BH1V0WG 86HG85lOUjp8R9vRZ3O5Hi KSAzgzfrkfjmdFY0SZJgFQEkbF6 8Qm6laNhsKu3gYUWoJFM3GZMkbP SoP3DltH6gShLeTMPrNBTc X2YctJWlUGaaD967JLlhGuY2GEM bxzAsM8TqBCJgbJauMhB7s3J2Di 8FSWm2UO68WO92lVChr8C2 tGC7R5YaKHWjguxfukhxsDO4WYH uHVKnoW97Bz7kpQoyXv4vFYKeFR L3BOJnrMWpH4MbuJ0vMwVx EEEiQLBlA6EaeSKaUXdlV873QAq vGcM0AONagcPtV9ZzCBGlsPzaVj C6z5L9Bx5QAWMbSB40GBJ8 bON7LL99LQ62L6OdFsizjMJpjZE +PHRhYmxlIHdpZHRoPScxMDAlJy HpyEumRF4nJg8gRSOfOUKo rMzpiZByRkNmp0dcFLFhQJhmYO5 kyJjfV9NbeIG3KCQmd6a6Zr77T7 6rP8XzfWQ+ORPqmKT5zKC2 tG4gKqOkTpX5VTaoH405ObDikEH pIkluo0rka0rkbRl9FeY9EAWitl NezHshQIB3w1ChVj51X01d IHdpZHRoPSIxNSUiIHZhbGlnbj0 xpB7oUu9+UIYmaYW6zFG6tX9iUo OsVoZ4AGnoF003NdAycVJm Gxxhc7nrv0icuIb1NcLpYBSdlmT ikOymWSB9u2SgSy04B2CipLrpz3 ZyNcw1bn22yVNuc3Q7rFA0 R5GdYCDxbzbofAAlmOsjVU7wSHO ycmkmLPVsnW3xJVKxH2b1YgIyJb A9HDvtI1SlwrW6DRUgqKDu PIbeSMC4E33pt9M1RQVoJWCzTJU 9mTH3gV4eqMkkiwbexOXmuQacav KixSmlYRlqQUvoF903LICt uLyqOHBblS4qNSOoyRSmdItyRE2 zWUUhztywXnZFJ4tCISnjZHJBHx UTSBm7M0ExCas7ODVkgXyt OX8xaMXiVAvmDg3heJpqwOibZV5 xWYOdhzmgWKZkxV7oSQRrfFEknR fpYB1tVWOszvxqm167DnAy MPD1JVZmlYLeK0MfbH6eUrFvJER rXEEeN9ZbaANfHMlxM783XEpxUm F5XGRueuZjK2SrMZWtuZgs NnZ1r2T4Dk8aXD8rLG0bWCg8KL8 3SY85aQBhs1F5rPV7F0UaMQPskf hbiwqtoYV1ZUGlJMLvhE36 yMNhVFcyJa2an2X0t015ODCaSUE beQ06Gd1irLvgJOAkcNOUnY2ndi lwe5ukdtsqEgFjLLDnKNd0 VQt2MOLceRnzWjVgPJX4TfJ3JVF 5bEFphZ4elCgcumgheM8yOfg+Mz IhUNAborR7P8FoZnh7EVLz oPgpFR4jcMXgQDkiCn6ipBiuuLz hMQ9vOJWbsmanJZFsnF0nWGAtkW BrfEsqGO0sXIIypsmma405 BeRbGFS2QWLduYOzK3NjlO3vOaV yZGBzVJXvY4EelLTiKBezI200HD osAqC2CRIleiChZ6PhSWJj mAggBbL2r4M8Sq8HPK8btPT1K9H rZwz4MNSbsYifMC2ohNYiGWxuKf 9glWuasUwdRH5bZWMkcehe KEXurT9qZJRkrEFtsYyzLG7eKXN nycfjl509QxWkQIT2XOAqwLQlC6 DaoL8oQhQiKWKtEAVkZ6Vk nVIwUVccL052VZycUiV0AQMqvnP aT8KtKICwaFprEuT1z5D7Ds9OxS DrHITsXV38HN35IO73Y3Ef PjwvdGFibGU+PHRhYmxlIHdpZHR jFGwwDBQjNbLzbPyjRP8tKx1sLW FvQROhuGtogWUhUsQyi3ls CPPgMSscNZ7jnObmE6HnvBA6LQY vc8k5Xj53I55oX6GchLY+PGNvbC A7nPL2lO3qOqMjSvP0FGcw Y909MbEogZHrGebat8jyk0aszVq 7UzRdOPIfdqJirGauUCR7p9IvJc 72C37kQXzpOXYtSEJvZIGv QJAuwWwale7ccJ2iKn0+PGNvbCB 1tLN2yE7iQcDvWkH7LBoiE241Ny JzbWMkDfqpX75wQ3IwhMC+ KYDxJga4BKTfxUviVY9lkAPlXIk bEl6rDVV1FkJhFoXnMUmtU7LpQS EyqplygyeeqKH6NQSqDNVv xZ93Xp1hvTehJn8wEESiYIV3PXB apNDkS6SmzK3tHwSnCZMlUMZkJ8 UqjTJbKCapP070MNcgQhU4 RAGwouWtC9XhLSJyzXycIpL0p6G 6Gk1HoNseqAXwOL1mWySlIJr1P5 UlMcv1ZAGelRouFT7nuCCd CCoeSi8kcKfwvFxoXQ4gJLYqjxu oq545VgTey4gwTFXhoGCmQMaxYI F5I34ek3G6XKUoUCNeDSJ1 mXQ4zG9sfKzmyhasgXMqdVmezxD stWsgZDebITquL735AZPydJkjHl QAHca8M2DaDfu9VWEnxQxp SB5lvPOoDYubIx7heAhprLvjLE9 mPZLyltvxm625EvWmi3yiHOGykV UzODnmGMI6J70bb6B3XSBt GUXqDXV5iSW1fH2jjImmivjwdYL prLrpvgPwbCwqSRokTXppQ924IJ CdtTngQk7VQcn7T4ImJfx2 PJHnuWpvED7beIQhKZmwYf1bgGw diUivDR5iVYXldufkl617BqHcc9 zlTODqwDErNZrgKND7W00j r4U2LHFkUGAsWJQ5yRZ7iT9zaYa nbjogbGVmdDsgdmVydGljYWwtYW ixD450BDBhtJyaRyZfuODg OjwvdGQ+TF57ag88E9IcEzyeJqe 5INEiPMP3vPF4jF1qIIXlVZqso0 K3zMW2K5UwkhNuhh3cd1wy YXBz (more content not included)... [facility] 01-04-2022 Consent [id number]:127 [facility] Discharge Instructionson Discharge Instructions [id number]#1.00CD:127 [facility] Giardia, Direct, EIAon 01-04 G. lamblia Ag IA Ql (Stl) Negative Invalid Interpretation Code Negative [facility] Comment on above: Result Comment: Perf ormed at: [address] [id number] PhD Allyson Diana Performed By: #### 3 [id number] ####[facility] [address] [place] [address] IntraOperative Documentson 1 03-06-2021 IntraOperative Documents [id number]#[id number]:127 Normal [facility] O & P EXAM, ROUTINE, REFLEXo n 01-04-2022 Ova and parasites identified Concentration Nom (Stl) Comment Invalid Interpretation Code [facility] Comment on above: Result Comment: No o va, cysts, or parasites seen. One negative specimen does not rule out the possibility of a parasitic infection. Performed at: [address] [id number] PhD Allyson Diana Performed By: #### 3 [id number] ####[facility] [address] [place] [address] O & P Exam, Routineon 2021 Ova and parasites identified LM Nom (Unsp spec) Final report Invalid Interpretation Code [facility] Comment on above: Result Comment: Thes e results were obtained using wet preparation(s) and trichrome stained smear. This test does not include testing for Cryptosporidium parvum, Cyclospora, or Microsporidia. Performed at: [address] [id number] PhD Allyson Diana Performed By: #### 3 [id number], [id number], [id number], [id number] ####[facility] [address] [place] [address] Postoperative Documentson Postoperative Documents [id number]#1.00CD:127 Normal [facility] WRITTEN AUTHORIZATIONon 12-20 Written Authorization Comment Invalid Interpretation Code [facility] Comment on above: Result Comment: Writ ten Authorization Received. Authorization received from [employer] 01-03-2022 Logged by Alondra Kohli Performed at: [facility] [id number] PhD Allyson Diana Performed By: #### 3 [id number], [id number], [id number], [id number], [id number], [id number] ####[facility] [address] [place] [address] Consent for Procedure/Surger yon 01-02-2022 Consent for Procedure/Surgery [id number]#1.00CD:127 Normal [facility] Consent for Procedure/Surgery [id number]#1.00CD:127 [facility] Consent for Treatmenton 12-20 Consent for Treatment [id number]#1.00CD:127 Normal [facility] Endoscopic Procedure Report - Otheron 01-02-2022 Endoscopic Procedure Report - Other Patient: BEN BARR Age: 36 years Sex: Female : 1985 Associated Diagnoses: None Author: Obed MASON MD Pre-Procedure Procedure Date 01/02/2022 08:58:00 . Procedure Type: Flexible sigmoidoscopy. Procedure provider Performed by Obed Mason MD. Current history and physical Documented on chart. Colorectal neoplasm risk assessment Not applicable. Informed Consent After discussing the rationale, risks and benefits, and alternatives to this procedure, the patient provided signed consent for the procedure. Pre-procedure diagnosis: Constipation. Medications Anticoagulant/antiplatelet None. ASA Classification: Class II. . Procedure The procedure was performed in the hospital. Rectal exam was performed and was normal with no masses palpated. The patient was positioned in the left lateral decubitus position and a digital rectal exam was performed.. Endoscope type used was an adult-size. The endoscope was lubricated then introduced through the anus. The scope was advanced past the anastomosis to the neoterminal ileum. No difficulties encountered during the procedure. The bowel preparation quality was adequate (see polyps greater than or equal to 6 millimeters). The patient tolerated the procedure well. Findings 1. 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 Normal colonic mucosa, residual solid stool noted 3. Small nonbleeding internal and external hemorrhoids Images Procedure images: Rec1_hd_video_2021__T08 _[id number].jpg Rec1_hd_video_2021__T08 _[id number].jpg Rec1_hd_video_2021__14T08 _[id number].jpg . Post-Procedure Complications: none. Estimated blood loss: none. Specimens: none. Devices/ implants: none left in place. Impression and Plan Impression: 1. 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 Normal colonic mucosa, residual solid stool noted 3. Small nonbleeding internal and external hemorrhoids Recommendations: Repeat colonoscopy:: None. Follow-up:: Clinic follow-up in 1-2 weeks. Diet:: Resume previous diet. Medication resumption:: Continue current medications. Return to activities:: After 24 hours. MiraLAX 17 g daily, if constipation persist then consider a trial of Motegrity Normal [facility] Comment on above: Result Comment: Elec tronically Signed By: LÓPEZ ALFRED, Obed\.br\Date and Time Signed: 01/02/22 09:00 EST Other Comment: Betina harman Attachment - attachment storage system not supported [id number] Can be viewed in source systemMissing Attachment - attachment storage system not supported [id number] Can be viewed in source systemMissing Attachment - attachment storage system not supported [id number] Can be viewed in source system Endoscopic Procedure Report - Other Patient: BEN BARR Age: 36 years Sex: Female : 1985 Associated Diagnoses: None Author: Obed MASON MD Pre-Procedure Procedure Date 01/02/2022 08:56:00 . Procedure Type: Esophagogastroduodenoscopy. Procedure provider Performed by Obed Mason MD. Current history and physical Documented on chart. Informed Consent After discussing the rationale, risks and benefits, and alternatives to this procedure, the patient provided signed consent for the procedure. Pre-procedure diagnosis: Nausea/ vomiting. Medications Anticoagulant/antiplatelet No anticoagulation or antiplatelet. ASA Classification: Class II. . Monitoring: See anesthesia record. . Procedure The procedure was performed in the hospital. See anesthesia record for sedation given during procedure. The patient was positioned starting in the left lateral decubitus position and with safety measures. Endoscope type used was an adult-size, introduced orally, advanced to the 2nd portion of the duodenum. No difficulty was encountered during the procedure. Views were good. Gastric biopsies were taken of the fundus and of the antrum. The patient tolerated the procedure well. Findings 1. Normal esophagus, Z line at 40 cm 2. Antral scar, mild gastric erythema and small semisolid gastric bezoar, random biopsies obtained to rule out H. pylori 3. Normal duodenum, random biopsy obtained to rule out celiac disease Images Procedure images: Rec_hd_video__ _[id number].jpg Rec_hd_video__ _[id number].jpg Rec_hd_video__ _[id number].jpg Rec_hd_video_ _[id number].jpg Rec_hd_video__08 _[id number].jpg . Post-Procedure Complications: none. Estimated blood loss: none. Specimens: sent to pathology. Devices/ implants: none left in place. Impression and Plan 1. Normal esophagus, Z line at 40 cm 2. Antral scar, mild gastric erythema and small semisolid gastric bezoar, random biopsies obtained to rule out H. pylori 3. Normal duodenum, random biopsy obtained to rule out celiac disease Recommendations: 1. Awaiting pathology report. 2. GI clinic follow-up in 2 weeks 3. Low residual diet, low-fat and low fiber 4. Diet Coca-[employer]a, 2 to 3 cans daily Normal [facility] Comment on above: Result Comment: Elec tronically Signed By: LÓPEZ ALFRED, Obed\.br\Date and Time Signed: 01/02/22 08:58 EST Other Comment: Betina harman Attachment - attachment storage system not supported [id number] Can be viewed in source systemMissing Attachment - attachment storage system not supported [id number] Can be viewed in source systemMissFanBoom Attachment - attachment storage system not supported [id number] Can be viewed in source systemMissing Attachment - attachment storage system not supported [id number] Can be viewed in source systemMissing Attachment - attachment storage system not supported [id number] Can be viewed in source system Inpatient Patient Summaryon 01-02-2022 Inpatient Patient Summary [place] [address] [facility] Clinical Discharge Instructions PERSON INFORMATION Name: BEN BARR [facility]#:[id number] [facility]YSIC[facility]ANS Admitting Physician: Obed MASON MD Attending Physician: Obed MASON MD PCP: Lizy SORIA DO Discharge Diagnosis: Acute epigastric pain; Change in bowel habits Comment: PATIENT EDUCATION INFORMATION Instructions: Medication Leaflets: Follow up: MEDICATION LIST Medications to Continue with No Changes Other Medications busPIRone (busPIRone 10 mg Tab) 3 Tablets By Mouth 2 times a day. Refills: 5. cholecalciferol (Vitamin D3 5000 intl units oral capsule) 1 Capsules By Mouth every day. with food. Refills: 11. dexmethylphenidate (Focalin XR 20 mg oral capsule, extended release) 1 Capsules By Mouth once a day (in the morning). 30 days. Refills: 0. fluoxetine (FLUoxetine 60 mg oral tablet) 1 Tablets By Mouth every day. fluticasone nasal (fluticasone 0.05 mg/inh Nasal [address]) 2 Sprays Nasal Inhalation every day. each nostril. Refills: 0. immune globulin intravenous and subcutaneous (Gammagard Liquid 10% injectable solution) 10 Gram Subcutaneous every 4 weeks. Refills: 11. lorazepam (LORazepam 0.5 mg Tab) 1 Tablets By Mouth once a day (at bedtime). Refills: 0. metoprolol (Metoprolol tartrate 50 mg Tab) 1 Tablets By Mouth 2 times a day for 90 Days. Refills: 3., PT STATES SHE TAKES IT NEEDED FOR BP Misc Prescription (1 LITER NORMAL SALINE) 1 LITER GIVEN WITH GAMMAGARD. Misc Prescription (Magnesium Chloride 64 mg) 1 tab By Mouth every day. take with the Vitamin D. Refills: 3. omega-3 polyunsaturated fatty acids ([place]-3 Fish Oil 1000 mg oral capsule) 1 Capsules By Mouth every day. Refills: 11. omeprazole (omeprazole 40 mg Cap-DR) 1 Capsules By Mouth every day for 90 Days. Refills: 0. ondansetron (Zofran ODT 4 mg Tab-Dis) 1 Tablets By Mouth every 8 hours as needed Nausea/Vomiting. Refills: 1. oxcarbazepine (Trileptal 150 mg Tab) 1 Tablets By Mouth 2 times a day. Refills: 1. potassium chloride (potassium chloride 10 mEq Cap-ER) 1 Capsules By Mouth every day. Refills: 2. propranolol Turmeric (Turmeric 500 mg oral capsule) 1 Capsules By Mouth every day. Refills: 3. Comment: Normal [facility] Main OR PACU I Recordon 12-20 Main OR PACU I Record PACU Phase I Document Type FT Summary Primary Physician: Obed MASON MD Finalized Date/Time: 01/02/22 10:49:06 Pt. Name: BEN BARR/Sex: 1985 Female Med Rec #: [id number] Physician: Obed MASON MD Financial #: [id number] Pt. Type: O Room/Bed: / Admit/Disch: 01/02/22 07:43:48 - Institution: Case Times PACU I FT Pre-Care Text: Identifies barriers to communication and implements measures to provide psychological support Develops individualized plan of care, and ensures continuity of care Maintains patient's dignity and privacy, and maintains patient confidentiality Identifies and reports philosophical, cultural, and spiritual beliefs and values Identifies individual values and wishes concerning care Implements aseptic technique, and administers prescribed antibiotic therapy and immunizing agents as ordered Evaluates postoperative tissue perfusion Implements thermoregulation measures, and monitors body temperature Evaluates postoperative respiratory status Evaluates postoperative cardiac status Evaluates postoperative neurological status Assesses pain control, collaborated in initiating patient-controlled analgesia and implements alternative methods of pain control Verifies allergies, administers prescribed medications and solutions, evaluates response to medications Entry 1 In PACU I 01/02/22 09:00:00 Discharge from PACU 01/02/22 09:30:00 I Outcomes Met? Yes Last Modified By: Sharlene Paul RN 01/02/22 10:48:45 Post-Care Text: The patient demonstrates knowledge of the expected response to the operative or invasive procedure The patient's care is consistent with the individualized perioperative plan of care The patient's right to privacy is maintained The patient's value system, lifestyle, ethnicity, and culture are considered, respected, and incorporated into the perioperative plan of care The patient participates in decisions affecting his or her perioperative plan of care The patient is free from signs and symptoms of infection The patient has wound/tissue perfusion consistent with or improved from baseline levels established preoperatively The patient is at or returning to normothermia at the conclusion of the immediate postoperative period The patient's respiratory function is consistent with or improved from baseline levels established preoperatively The patient's cardiovascular status is consistent with or improved from baseline levels established preoperatively The patient's cardiovascular status is consistent with or improved from baseline levels established preoperatively The patient demonstrates and/or reports adequate pain control throughout the perioperative period The patient received appropriate medication(s), safely administered during the perioperative period Acuity Level PACU I FT Entry 1 Start Time 01/02/22 09:00:00 Stop Time 01/02/22 09:30:00 Acuity Level Acuity Level I Last Modified By: Sharlene Paul RN 01/02/22 10:49:01 Finalized By: Sharlene Paul RN Document Signatures Signed By: Sharlene Paul RN 01/02/22 10:49 Normal [facility] Main OR Preoperative Recordo n 01-02-2022 Main OR Preoperative Record Holding Area Document Type FT Summary Primary Physician: Obed MASON MD Finalized Date/Time: 01/02/22 07:59:35 Pt. Name: BEN BARR /Sex: 1985 Female Med Rec #: [id number] Physician: Obed MASON MD Financial #: [id number] Pt. Type: O Room/Bed: / Admit/Disch: 01/02/22 07:43:48 - Institution: Case Times Holding FT Pre-Care Text: Verifies consent for planned procedure, identifies individual values and wishes concerning care, includes family members in perioperative teaching Secures patient's records' belongings, and valuables, maintains patient's dignity and privacy, and maintains patient confidentiality Entry 1 In Holding 01/02/22 07:53:00 Outcomes Met? Yes Last Modified By: Camilla Felton RN 01/02/22 07:58:39 Post-Care Text: The patient participates in decisions affecting his or her perioperative plan of care The patient's right to privacy is maintained Surgery Checklist FT Entry 1 Patient Birthday, ID Band Procedure History and Physical, Identification: Check, Patient Verification: Surgical Consent, With Participation Patient NPO after Midnight: Yes Date/Time: 01/02/22 00:00:00 Personal Items: Jewelry Personal Items ring, necklace, Comment: clothes, shoes Limitations: n/a Complaints of Pain: No Pain Comment: denies Operative Site n/a Marking: Marked By: n/a Availability Equipment Verified: Does Patient Smoke No Patient states Yes Comment - Adult sister- Jazlyn postop adult Supervision supervision available Case Cancelled in No Holding Area see comments below for reason Last Modified By: Camilla Felton RN 01/02/22 07:59:32 General Comments: Patient NPO at midnight, 2 enemas overnight, states stool is clear /,RN Finalized By: Camilla Felton RN Document Signatures Signed By: Camilla Felton RN 01/02/22 07:59 Normal [facility] Monitor Recordon 01-02-2022 Monitor Record [id number]:127 Normal [facility] Monitor Record [id number]:127 Normal [facility] Outpatient Surgery Discharge Instructionon 01-02-2022 Outpatient Surgery Discharge Instruction [place] [id number] Patient Discharge Instructions PERSON INFORMATION Name: BEN BARR Date of : 1985 Current Date: 01/02/2022 09:01:34 PHYSICIANS Admitting Physician: LÓPEZ ALFRED, [facility] Discharge Diagnosis: Acute epigastric pain; Change in bowel habits BEN BARR Javier has been given the following list of follow-up instructions, prescriptions, and patient education materials: PATIENT FOLLOW-UP INFORMATION Diet: Other: Low-fat and low fiber diet Discharge Activity: Resume normal activities in 24 hours Discharge Restrictions: No driving for 24 hrs, Do not operate machinery or tools, Do not make important decisions for 24 hours Additional Instructions: Low-fat and low fiber diet Aglp-mbt-dpfgqcq MiraLAX, 17 g daily IF UNABLE TO CONTACT YOUR PHYSICIAN AND YOU FEEL IT IS AN EMERGENCY, GO TO THE NEAREST EMERGENCY ROOM OR CALL 911 ICORTNEY AMBER G, have received the attached patient education materials/instructions and have verbalized understanding: May we do a follow up call? Yes No I was present when discharge instructions were given ___ Patient Signature Date Clinican/Nurse Signature Date Follow up: Pharmacy Information: [facility] You may receive a survey from Robert Alcala asking you to rate your care experience. Your feedback is important and will help us understand what we do well and how we can improve the quality of care we provide to you, your loved ones and our community. It?s an honor to serve you. Thank you for choosing [facility] HERE ARE THE MEDICATION CHANGES THAT OCCURRED DURING YOUR HOSPITAL STAY Medications to Continue with No Changes Other Medications busPIRone (busPIRone 10 mg Tab) 3 Tablets By Mouth 2 times a day. Refills: 5. cholecalciferol (Vitamin D3 5000 intl units oral capsule) 1 Capsules By Mouth every day. with food. Refills: 11. dexmethylphenidate (Focalin XR 20 mg oral capsule, extended release) 1 Capsules By Mouth once a day (in the morning). 30 days. Refills: 0. fluoxetine (FLUoxetine 60 mg oral tablet) 1 Tablets By Mouth every day. fluticasone nasal (fluticasone 0.05 mg/inh Nasal [address]) 2 Sprays Nasal Inhalation every day. each nostril. Refills: 0. immune globulin intravenous and subcutaneous (Gammagard Liquid 10% injectable solution) 10 Gram Subcutaneous every 4 weeks. Refills: 11. lorazepam (LORazepam 0.5 mg Tab) 1 Tablets By Mouth once a day (at bedtime). Refills: 0. metoprolol (Metoprolol tartrate 50 mg Tab) 1 Tablets By Mouth 2 times a day for 90 Days. Refills: 3., PT STATES SHE TAKES IT NEEDED FOR BP Misc Prescription (1 LITER NORMAL SALINE) 1 LITER GIVEN WITH GAMMAGARD. Misc Prescription (Magnesium Chloride 64 mg) 1 tab By Mouth every day. take with the Vitamin D. Refills: 3. omega-3 polyunsaturated fatty acids ([place]-3 Fish Oil 1000 mg oral capsule) 1 Capsules By Mouth every day. Refills: 11. omeprazole (omeprazole 40 mg Cap-DR) 1 Capsules By Mouth every day for 90 Days. Refills: 0. ondansetron (Zofran ODT 4 mg Tab-Dis) 1 Tablets By Mouth every 8 hours as needed Nausea/Vomiting. Refills: 1. oxcarbazepine (Trileptal 150 mg Tab) 1 Tablets By Mouth 2 times a day. Refills: 1. potassium chloride (potassium chloride 10 mEq Cap-ER) 1 Capsules By Mouth every day. Refills: 2. propranolol Turmeric (Turmeric 500 mg oral capsule) 1 Capsules By Mouth every day. Refills: 3. PATIENT EDUCATION INFORMATION Instructions: Medication Leaflets: [facility] Patient Education - Texton 1 03-04-2021 Patient Education - Text [facility] Progress Note-Physicianon Progress Note-Physician Patient: BEN BARR Age: 36 years Sex: Female : 1985 Associated Diagnoses: None Author: García Reyes DO Postoperative Information Post Operative Note: Post Anesthesia Care Unit. Physical Examination Vital Signs (last 24 hrs) Last Charted Resp Rate 15 br/min (JAN 02 09:16) SBP 104 mmHg (JAN 02 09:16) DBP 75 mmHg (JAN 02 09:16) SpO2 100 % (JAN 02 09:16) Weight 60.2 kg (JAN 02 07:59) BMI 25.06 (JAN 02 07:59) Pain assessment: Pain Assessment 01/02/2022 9:00 EST Pain Symptoms Self Report No, able to self report . General: No acute distress. HENT: dentition at preop baseline.. Respiratory: Respirations are non-labored. Cardiovascular: stable hemodynamics. Neurologic: interactive. Assessment Anesthetic outcome No anesthetic complications noted. Adequate pain relief. adequate hydration. PONV controlled. Plan Transfer/ Discharge: Patient can be discharged from PACU when criteria met. Condition good. [facility] Comment on above: Result Comment: Elec tronically Signed By: García Reyes DO\.br\Date and Time Signed: 01/02/22 10:15 EST Progress Note-Physician Patient: BEN BARR Age: 36 years Sex: Female : 1985 Associated Diagnoses: None Author: García Reyes DO Preoperative Information Anesthesia history: Patient History: Pt./ family denies any personal or family hx of problems/difficulties with anesthesia.. denies recent URI, nor infection. Re-eval prior to induction: Inital eval reviewed: No significant interval change, NPO guidelines met. Review of Systems Constitutional: See nursing pain assessment.. Cardiovascular: Cardiac risk assessment performed. Pt. denies any significant change in their cv hx., + POTS discussed fluid intake today. Respiratory: Pt. denies any signicant change in their respiratory status.. Neurologic: Pt. denies any acute neurological changes.. Health Status Allergies: Allergic Reactions (Selected) Severity Not Documented Rondec- No reactions were documented., Allergies (1) Active Reaction Rondec None Documented Current medications: (Selected) Inpatient Medications Ordered Sodium Chloride 0.9% IV Fatmata 1000 mL 1,000 mL: 1,000 mL, IV, 20 mL/hr, Routine, Start date 01/02/22 6:44:00 EST, 50 hour(s), Total volume (mL): 1,000, 60.2 kg, 1.61, m2 Prescriptions Prescribed Focalin XR 20 mg oral capsule, extended release: 20 mg = 1 cap(s), Oral, qAM, 30 days, # 30 cap(s), Refills(s) 0, Pharmacy: [facility], 155, cm, 08/15/21 15:25:00 EDT, Height/Length Dosing, 58.6, kg, 08/15/21 15:25:00 EDT, Weight Dosing Gammagard Liquid 10% injectable solution: 10 gram, SubCutaneous, q4wk, # 1 EA, Refills(s) 11 LORazepam 0.5 mg Tab: 0.5 mg = 1 tab(s), Oral, Once a day (at bedtime), # 4 tab(s), Refills(s) 0, Pharmacy: [facility], 155, cm, 11/01/21 16:20:00 EDT, Height/Length Dosing, 59.7, kg, 11/01/21 16:20:00 EDT, Weight Dosing Magnesium Chloride 64 mg: Magnesium Chloride 64 mg, 1 tab, Oral, Daily, 90 tab(s), 3, take with the Vitamin D, [facility], 155, cm, 04/19/21 16:40:00 EST, Height/Length Dosing, 59.6, kg, 04/19/21 16:40:00 EST, Weight Dosing Metoprolol tartrate 50 mg Tab: 50 mg = 1 tab(s), Oral, BID, X 90 day(s), # 180 tab(s), Refills(s) 3, Pharmacy: [facility], 155, cm, 11/01/21 16:20:00 EDT, Height/Length Dosing, 59.7, kg, 11/01/21 16:20:00 EDT, Weight Dosing [place]-3 Fish Oil 1000 mg oral capsule: 1,000 mg = 1 cap(s), Oral, Daily, # 30 cap(s), Refills(s) 11, Pharmacy: [facility], 155, cm, 04/19/21 16:40:00 EST, Height/Length Dosing, 59.6, kg, 04/19/21 16:40:00 EST, Weight Dosing Trileptal 150 mg Tab: 150 mg = 1 tab(s), Oral, BID, # 180 tab(s), Refills(s) 1, Pharmacy: [facility], 155, cm, 04/19/21 16:40:00 EST, Height/Length Dosing, 59.6, kg, 04/19/21 16:40:00 EST, Weight Dosing Turmeric 500 mg oral capsule: 500 mg = 1 cap(s), Oral, Daily, # 90 cap(s), Refills(s) 3, Pharmacy: [facility], 155, cm, 04/19/21 16:40:00 EST, Height/Length Dosing, 59.6, kg, 04/19/21 16:40:00 EST, Weight Dosing Vitamin D3 5000 intl units oral capsule: 125 mcg = 1 cap(s), Oral, Daily, with food, # 30 cap(s), Refills(s) 11, Pharmacy: [facility], 155, cm, 04/19/21 16:40:00 EST, Height/Length Dosing, 59.6, kg, 04/19/21 16:40:00 EST, Weight Dosing Zofran ODT 4 mg Tab-Dis: 4 mg = 1 tab(s), Oral, q8hr, PRN Nausea/Vomiting, # 30 tab(s), Refills(s) 1, [facility]acy: [facility], 155, cm, 11/01/21 16:20:00 EDT, Height/Length Dosing, 59.7, kg, 11/01/21 16:20:00 EDT, Weight Dosing busPIRone 10 mg Tab: 30 mg = 3 tab(s), Oral, BID, # 180 tab(s), Refills(s) 5, Pharmacy: [facility], 155, cm, 11/01/21 16:20:00 EDT, Height/Length Dosing, 59.7, kg, 11/01/21 16:20:00 EDT, Weight Dosing fluticasone 0.05 mg/inh Nasal [address]: 2 spray(s), Nasal, Daily, 16 gram, Refill(s) 0, each nostril, [facility], 155, cm, 08/15/21 15:25:00 EDT, Height/Length Dosing, 58.6, kg, 08/15/21 15:25:00 EDT, Weight Dosing omeprazole 40 mg Cap-DR: 40 mg = 1 cap(s), Oral, Daily, X 90 day(s), # 90 cap(s), Refills(s) 0, Pharmacy: [facility], 155, cm, 12/29/21 12:50:00 EST, Height/Length Dosing, 60.2, kg, 12/29/21 12:50:00 EST, Weight Dosing potassium chloride 10 mEq Cap-ER: 10 mEq = 1 cap(s), Oral, Daily, # 30 cap(s), Refills(s) 2, Pharmacy: [facility], 155, cm, 02/10/20 16:46:00 EST, Height/Length Dosing, 58, kg, 02/10/20 16:46:00 EST, Weight Dosing Documented Medications Documented 1 LITER NORMAL SALINE: 1 LITER NORMAL SALINE, 1 LITER GIVEN WITH GAMMAGARD FLUoxetine 60 mg oral tablet: 60 mg = 1 tab(s), Oral, Daily, # 30 tab(s), Refills(s) 0 propranolol: Refills(s) 0, High blood pressure, Medications (1) Active Scheduled: (0) Continuous: (1) Sodium Chloride 0.9% 1,000 mL 1,000 mL, IV, 20 mL/hr PRN: (0) Problem list: All Problems Change in bowel habits / SNOMED CT 917887989 / Confirmed Attention deficit disorder (ADD) / SNOMED CT 97128921 / Confirmed Bilateral arm weakness / SNOMED CT 2621161028 / Confirmed Chronic insomnia / SNOMED CT 372707 (more content not included)... Normal [facility] Comment on above: Result Comment: Elec tronically Signed By: García Reyes DO\reva\Date and Time Signed: 01/02/22 08:16 EST C. Difficile PCRon C. Difficile PCR Specimen has been fo und to be acceptable for C. difficile testing. Normal [facility] Cdiff Specimen Acceptable Acceptable [facility] Comment on above: Performed By: #### 3 [id number], [id number], [id number], [id number], [id number], [id number], [id number], [id number] ####[facility] [address] [place] [address] Order Cancelled No, PCR to follow Normal [facility] Comment on above: Performed By: #### 3 [id number], [id number], [id number], [id number], [id number], [id number], [id number], [id number] ####[facility] [address] [place] [address] C. diff by PCRon 12-31-2021 C. diff by PCR Specimen Negative fo r toxigenic C. difficile by DNA amplification. Duplicate specimens will not be accepted on this patient for the next 7 days. Published data on the sensitivity of molecular assays suggest there is no diagnostic value in repeat testing of samples in close time sequence. Normal Negative [facility] Comment on above: Result Comment: This test result should be correlated with clinical presentations and medical history by a healthcare provider to determine its clinical significance.\.br\.br\ Other Comment: Order added by Discern Expert. Clostridium difficile by PCR Negative Normal Negative [facility] Comment on above: Order Comment: Order added by Discern Expert. Result Comment: This test result should be correlated with clinical presentations and medical history by a healthcare provider to determine its clinical significance. Performed By: #### 3 [id number], [id number], [id number], 32092741, [id number], [id number], [id number], [id number] ####[facility] [address] [place] [address] Enteric Panel by PCRon 12-31 C. coli+jejuni+upsalien sis DNA JEAN+non-probe Ql (Stl) Not detected Normal [facility] Comment on above: Result Comment: Test ing was performed utilizing reverse gas dispenser (RT), polymerase chain reaction (PCR), and array hybridization to detect specific gastrointestinal microbial nucleic acid gene sequences associated with the following pathogenic bacteria and viruses:Campylobacter Group (composed of C. coli, C. jejuni, and C. rodriguez), Salmonella species, Shigella species (including S. dysenteriae, S. boydii, S. sonnei and S. flexneri), Vibrio Group (composed of V. cholera and V. parahaemolyticus), Yersinia enterocolitica, Norovirus GI/GII, and Rotavirus A. In addition, EPdetects Shiga toxin 1 gene and Shiga toxin 2 gene virulence markers. Shiga toxin producing E. coli (STEC) typically harbor one or both genes that encode for Shiga toxins 1 and 2. Campylobacter group, Salmonella species, Shigella species, Vibrio group, Rotavirus A, Shiga Toxin 1, Shiga Toxin 2, Norovirus GI/GII, and Yersinia enterocolitica were tested by Verigene nulcleic acid test. Performed By: #### 3 [id number], [id number], [id number], 95207061, 36758183, [id number], 23022968, [id number] ####[facility] [address] [place] [address] E. coli stx1+stx2 genes JEAN+non-probe Ql (Stl) Negative Normal [facility] Comment on above: Performed By: #### 3 [id number], [id number], [id number], 62833596, 09031376, [id number], 73388835, 86323913 ####[facility] [address] [place] [address] Enteric Panel by PCR Negative Normal [facility] Enteric Panel Intrl QC Pass Normal [facility] Comment on above: Result Comment: Test ing was performed utilizing reverse gas dispenser (RT), polymerase chain reaction (PCR), and array hybridization to detect specific gastrointestinal microbial nucleic acid gene sequences associated with the following pathogenic bacteria and viruses:Campylobacter Group (composed of C. coli, C. jejuni, and C. rodriguez), Salmonella species, Shigella species (including S. dysenteriae, S. boydii, S. sonnei and S. flexneri), Vibrio Group (composed of V. cholera and V. parahaemolyticus), Yersinia enterocolitica, Norovirus GI/GII, and Rotavirus A. In addition, EPdetects Shiga toxin 1 gene and Shiga toxin 2 gene virulence markers. Shiga toxin producing E. coli (STEC) typically harbor one or both genes that encode for Shiga toxins 1 and 2. Performed By: #### 3 [id number], [id number], [id number], 75955779, 92271061, 1238813927, 94000377, 77993401 ####[facility] [address] [place] [address] Norovirus genogroup I+II RNA JEAN+non-probe Ql (Stl) Not detected Normal [facility] Comment on above: Performed By: #### 3 [id number], [id number], [id number], 01193745, 12022411, 4448679649, 13493906, 71747822 ####[facility] [address] [place] [address] Rotavirus A RNA JEAN+non-probe Ql (Stl) Not detected Normal [facility] Comment on above: Performed By: #### 3 [id number], 301691475, [id number], 31283144, 86237414, 0591192901, 92178770, 91195347 ####[facility] [address] [place] [address] S. enterica+bongori DNA JEAN+non-probe Ql (Stl) Not detected Normal [facility] Comment on above: Result Comment: This test result should be correlated with clinical presentations and medical history by a healthcare provider to determine its clinical significance. Performed By: #### 3 [id number], 917090814, [id number], 95416425, 71656493, 2984351749, 84090522, 51058719 ####[facility] [address] [place] [address] Shigella species+EIEC invasion plasmid antigen H ipaH gene JEAN+non-probe Ql (Stl) Not detected Normal [facility] Comment on above: Performed By: #### 3 [id number], [id number], [id number], 39082025, 18325134, 8701834964, 98409308, 02945501 ####[facility] [address] [place] [address] V. cholerae+parahaemoly ticus+vulnificus DNA JEAN+non-probe Ql (Stl) Not detected Normal [facility] Comment on above: Performed By: #### 3 [id number], 088089868, 4138344614, 79503309, 27819343, 8295001617, 61101168, 38687470 ####[facility] [address] [place] [address] Y. enterocolitica DNA JEAN+non-probe Ql (Stl) Not detected Normal [facility] Comment on above: Performed By: #### 3 6585920, 951347335, 8237067552, 72048843, 47702515, 1884685788, 65239260, 75549956 ####[facility] [address] [place] [address] Fecal WBC Lactoferrinon 12-20 Fecal WBC Lactoferrin Negative Normal Negative [facility] Comment on above: Result Comment: The semi-quantitative detection of elevated levels of fecal lactoferrin is a marker for fecal leukocytes and an indication of intestinal inflammation. Performed By: #### 3 6598297, 811038130, [id number], 80662634, 34594425, 8865049488, 90825901, 86540306 ####[facility] [address] [place] [address] MICRO OTHER TESTSOrdered By: Micheal Albert on 12-30-2021 Fecal WBC Lactoferrin Negative (12/30/21 2:30 PM) Normal Negative [facility] [facility] Amb[place] Visit Summaryon 1 02-28-2021 Ambulatory Visit Summary BEN BARR :1985 Visit Date:12/29/2021 Ambulatory Visit Instructions Your Diagnosis Change in bowel habits History of colectomy Epigastric pain Indigestion, Indigestion Nausea and vomiting History of stomach ulcers Your Care Team Attending Physician - Alexia Bolaños CNP Primary Care Physician - Lizy SORIA DO This Is Your Medications List omeprazole (omeprazole 40 mg Cap-DR) Contact prescribing physician if questions or concerns Misc Prescription (1 LITER NORMAL SALINE) Misc Prescription (Magnesium Chloride 64 mg) Turmeric (Turmeric 500 mg oral capsule) busPIRone (busPIRone 10 mg Tab) cholecalciferol (Vitamin D3 5000 intl units oral capsule) dexmethylphenidate (Focalin XR 20 mg oral capsule, extended release) fluoxetine (FLUoxetine 60 mg oral tablet) fluticasone nasal (fluticasone 0.05 mg/inh Nasal [address]) immune globulin intravenous and subcutaneous (Gammagard Liquid 10% injectable solution) lorazepam (LORazepam 0.5 mg Tab) metoprolol (Metoprolol tartrate 50 mg Tab) omega-3 polyunsaturated fatty acids ([place]-3 Fish Oil 1000 mg oral capsule) ondansetron (Zofran ODT 4 mg Tab-Dis) oxcarbazepine (Trileptal 150 mg Tab) potassium chloride (potassium chloride 10 mEq Cap-ER) propranolol Procedures Performed EGD (esophagogastroduodenoscopy ) gastric outlet reduction (02/02/2021), Esophagogastroduodenoscopy (12/09/2020), Ileostomy (03/10/2015), colon removed, Robotic laparoscopic total abdominal colectomy with ileorectal anastomosis and diverting ileostomy, Small bowel resection. Discharge Vitals Temperature (Temporal Artery) 36.3 ?C Heart Rate (Peripheral) 83 Blood Pressure 102/72 Height 155 cm Height 61 in Weight 60.2 kg Weight 132.44 lb BMI 25.06 What to do next You Need to Schedule the Following Appointments Follow Up with LÓPEZ ALFRED, STEPHANI Clay, KYLE When: Within 1 month Comments: Patient preference to discuss her immunodeficiency. Where: [address] [place], [place] [address]dict [facility]. [address] [place] [address] You Need to Complete the Following CBC w/ Auto Diff, Blood, Routine collect, 12/29/21, Order for future visit, Lab Collect, History of stomach ulcers Invalid Interpretation Code Change in bowel habits [facility] Auto Diffon 12-29-2021 Basophils/100 WBC (Bld) 1.8 % Normal 0.0-2.0 [facility] Comment on above: Order Comment: Order Added by Discern Expert. Performed By: #### 2 [id number], [id number], 8116974, 89082145 ####[facility] [address] [place] [address] Basophils/Leukocytes Auto (Bld) [Pure # fraction] 0.1 E9/L Normal 0.0-0.2 [facility] Comment on above: Order Comment: Order Added by Discern Expert. Performed By: #### 2 [id number], 5681765, 6337263, [id number] ####[facility] [address] [place] [address] Eosinophils/100 WBC (Bld) 7.0 % Normal 0.0-8.0 [facility] Comment on above: Order Comment: Order Added by Discern Expert. Performed By: #### 2 336666, 2728512, 3121435, [id number] ####[facility] [address] [place] [address] Eosinophils/Leukocyt es Auto (Bld) [Pure # fraction] 0.3 E9/L Normal 0.0-0.5 [facility] Comment on above: Order Comment: Order Added by Discern Expert. Performed By: #### 2 426592, 9973615, 5755583, [id number] ####[address] [place] [address] Lymphocytes/100 WBC (Bld) 45.8 % Normal 14.0-50.0 [facility] Comment on above: Order Comment: Order Added by Discern Expert. Performed By: #### 2 599262, 0179801, 5113105, [id number] ####[address] [address] Lymphocytes/Leukocyt es Auto (Bld) [Pure # fraction] 1.7 E9/L Normal 1.0-4.0 [facility] Comment on above: Order Comment: Order Added by Discern Expert. Performed By: #### 2 599089, 8968610, 9594572, [id number] ####[address] [address] Monocytes/100 WBC (Bld) 7.7 % Normal 4.0-14.0 [facility] Comment on above: Order Comment: Order Added by Discern Expert. Performed By: #### 2 837271, 3512237, 8360786, [id number] ####[address] [address] Monocytes/Leukocytes Auto (Bld) [Pure # fraction] 0.3 E9/L Normal 0.2-1.0 [facility] Comment on above: Order Comment: Order Added by Discern Expert. Performed By: #### 2 175086, 7604158, 6427760, 90880010 ####[address] [place] [address] Neutrophils/100 WBC (Bld) 37.7 % Normal 36.0-75.0 [facility] Comment on above: Order Comment: Order Added by Discern Expert. Performed By: #### 2 586673, 0217941, 7498115, 17542951 ####[address] [place] [address] Neutrophils/Leukocyt es Auto (Bld) [Pure # fraction] 1.4 E9/L Low 2.0-7.5 [facility] Comment on above: Order Comment: Order Added by Discern Expert. Performed By: #### 2 198386, 6109717, 8650038, 87747640 ####[address] [address] CBC w/ Auto Diffon Erythrocyte distribution width (RBC) [Ratio] 12.9 % Normal 10.9-14.2 [facility] Comment on above: Performed By: #### 2 196789, 5618509, 4159837, 84254282 ####[address] [address] Hematocrit (Bld) [Volume fraction] 39.3 % Normal 34.0-46.0 [facility] Comment on above: Performed By: #### 2 028646, 3724984, 1118629, 14503838 ####[address] [address] Hemoglobin (Bld) [Mass/Vol] 13.3 g/dL Normal 12.0-16.0 [facility] Comment on above: Performed By: #### 2 098819, 7633156, 7985095, 60783323 ####[address] [address] MCH (RBC) [Entitic mass] 32.2 pg Normal 27.0-34.0 [facility] Comment on above: Performed By: #### 2 554411, 7383641, 6536954, 30554260 ####[address] [address] MCHC (RBC) [Mass/Vol] 33.7 g/dL Normal 31.4-36.0 [facility] Comment on above: Performed By: #### 2 373909, 3493575, 8254218, 71197829 ####[facility] [address] [place] [address] MCV (RBC) [Entitic vol] 95.5 fL Normal 80.0-100.0 [facility] Comment on above: Performed By: #### 2 161075, 3797286, 5309455, 39157881 ####[address] [address] Platelet mean volume (Bld) [Entitic vol] 8.2 fL Normal 6.4-10.8 [facility] Comment on above: Performed By: #### 2 891936, 6165433, 3901140, 66935758 ####[address] [address] Platelets (Bld) [#/Vol] 128.0 E9/L Low 150.0-500. 0 [facility] Comment on above: Performed By: #### 2 880024, 5068773, 2568677, 59338242 ####[address] [address] RBC (Bld) [#/Vol] 4.1 E12/L Low 4.3-5.9 [facility] Comment on above: Performed By: #### 2 439810, 2863549, 6368915, 76533338 ####[address] [address] WBC corrected for nucl RBC Auto (Bld) [#/Vol] 3.8 E9/L Low 4.0-11.0 [facility] Comment on above: Performed By: #### 2 461603, 4136796, 9912292, 66701552 ####[address] [address] CHEMISTRYOrdered By: SYSTEM SYSTEM on 12-29-2021 Albumin [Mass/Vol] 3.9 g/dL Normal 3.3 - 5.0 gm/dL FT Remisol Albumin/Globulin [Mass ratio] 1.0 {ratio} Low 1.1 - 2.2 [facility] Remisol ALP [Catalytic activity/Vol] 83 [iU]/d Normal 21 - 98 Int._Unit/ L [facility] Remisol ALT No additional P-5'-P [Catalytic activity/Vol] 65 [iU]/d High 6 - 46 Int._Unit/ L [facility] Remisol Anion gap [Moles/Vol] 10 mmol/L Normal 6 - 16 mEq/L [facility] Remisol AST [Catalytic activity/Vol] 95 [iU]/d High 5 - 43 Int._Unit/ L [facility] Remisol Bilirubin [Mass/Vol] 1.1 mg/dL Normal 0.0 - 1 .1 mg/dL [facility] Remisol Calcium [Mass/Vol] 8.9 mg/dL Normal 8.9 - 11. 1 mg/dL [facility] Chloride [Moles/Vol] 101 mmol/L Normal 101 - 1 11 mmol/L [facility] CO2 [Moles/Vol] 29 mmol/L Normal 21 - 31 mmol/L [facility] Remisol Creatinine [Mass/Vol] 1.1 mg/dL Normal 0.5 - 1.3 mg/dL [facility] Remisol GFR/1.73 sq M.predicted among blacks MDRD (S/P/Bld) [Vol rate/Area] mL/min/1.73 m2 Normal >=59mL/min /1.73 m2 [facility] S GFR/1.73 sq M.predicted among non-blacks MDRD (S/P/Bld) [Vol rate/Area] 56 mL/min/1.73 m2 Low >=59mL/min /1.73 m2 [facility] S Globulin (S) [Mass/Vol] 3.8 g/dL Normal 1.4 - 4.0 gm/dL [facility] Remisol Glucose [Mass/Vol] 91 mg/dL Normal 55 - 199 mg/dL [facility] Remisol Potassium [Moles/Vol] 4.0 mmol/L Normal 3.5 - 5.3 mmol/L [facility] Remisol Protein [Mass/Vol] 7.7 g/dL Normal 6.0 - 7.8 gm/dL [facility] Remisol Sodium [Moles/Vol] 136 mmol/L Normal 135 - 145 mmol/L [facility] Urea nitrogen [Mass/Vol] 13 mg/dL Normal 5 - 21 mg/dL [facility] Urea nitrogen/Creatinine [Mass ratio] 12 mg/mg Normal 10 - 20 [facility] Remisol CMPon 12-29-2021 Albumin [Mass/Vol] 3.9 g/dL Normal 3.3-5.0 [facility] Comment on above: Performed By: #### 2 555824, 5341920, 2866873, 14124967 ####[facility] [address] [place] [address] Albumin/Globulin (S) [Mass conc ratio] 1.0 Low 1.1-2.2 [facility] Comment on above: Performed By: #### 2 501315, 0995207, 6516860, 70035224 ####[facility] [address] [place] [address] ALP [Catalytic activity/Vol] 83 Int._Unit/L Normal 21-98 [facility] Comment on above: Performed By: #### 2 393204, 0845457, 0681501, 62318668 ####[facility] [address] [place] [address] ALT No additional P-5'-P [Catalytic activity/Vol] 65 Int._Unit/L High 6-46 [facility] Comment on above: Performed By: #### 2 621508, 4617604, 1606393, 20382788 ####[facility] [address] [place] [address] Anion gap [Moles/Vol] 10 mmol/L Normal 6-16 [facility] Comment on above: Performed By: #### 2 292600, 4616858, 7285433, 59810414 ####[facility] [address] [place] [address] AST [Catalytic activity/Vol] 95 Int._Unit/L High 5-43 [facility] Comment on above: Performed By: #### 2 455346, 6219286, 4884154, 18578488 ####[facility] [address] [place] [address] Bilirubin [Mass/Vol] 1.1 mg/dL Normal 0.0-1.1 [facility] Comment on above: Performed By: #### 2 410008, 5073544, 5536092, 94074941 ####[facility] [address] [place] [address] Calcium [Mass/Vol] 8.9 mg/dL Normal 8.9-11.1 [facility] Comment on above: Performed By: #### 2 917053, 4871890, 3426337, 63639197 ####[facility] [address] [place] [address] Chloride [Moles/Vol] 101 mmol/L Normal 101-111 [facility] Comment on above: Performed By: #### 2 515422, 4694976, 3778281, 77098082 ####[facility] [address] [place] [address] CO2 [Moles/Vol] 29 mmol/L Normal 21-31 [facility] Comment on above: Performed By: #### 2 374194, 1620165, 8070439, 53874597 ####[facility] [address] [place] [address] Creatinine [Mass/Vol] 1.1 mg/dL Normal 0.5-1.3 [facility] Comment on above: Performed By: #### 2 926006, 0685455, 9828289, 02342177 ####[facility] [address] [place] [address] Globulin (S) [Mass/Vol] 3.8 g/dL Normal 1.4-4.0 [facility] Comment on above: Performed By: #### 2 352042, 9085321, 0157372, 10480204 ####[facility] [address] [place] [address] Glucose [Mass/Vol] 91 mg/dL Normal 55-199 [facility] Comment on above: Result Comment: If t his glucose result represents a fasting glucose, interpretation should refer to the following reference range: 55-99 mg/dL Performed By: #### 2 492670, 9062205, 5135069, 56552175 ####[facility] [address] [place] [address] Potassium [Moles/Vol] 4.0 mmol/L Normal 3.5-5.3 [facility] Comment on above: Performed By: #### 2 473232, 1919411, 2471498, 94848959 ####[facility] [address] [place] [address] Protein [Mass/Vol] 7.7 g/dL Normal 6.0-7.8 [facility] Comment on above: Performed By: #### 2 766305, 6669534, 5577039, 80205885 ####[facility] [address] [place] [address] Sodium [Moles/Vol] 136 mmol/L Normal 135-145 [facility] Comment on above: Performed By: #### 2 287205, 0531146, 7555103, 80535658 ####[facility] [address] [place] [address] Urea nitrogen [Mass/Vol] 13 mg/dL Normal 5-21 [facility] Comment on above: Performed By: #### 2 685906, 7672946, 1886643, 64699248 ####[facility] [address] [place] [address] Urea nitrogen/Creatinine [Mass ratio] 12 No Units Normal 10-20 [facility] Comment on above: Performed By: #### 2 458163, 5548754, 4538164, 69300886 ####[facility] [address] [place] [address] Consent for Treatmenton 12-20 Consent for Treatment [id number]:[id number] Normal [facility] Gastroenterology Office/Clin ic Noteon 12-29-2021 Gastroenterology Office/Clinic Note Chief Complaint Mucus in stool, change in bowel habits, nausea and vomiting. HPI Staff Patient is a 36 year old female that c/o mucus in stool, change in bowel habits, nausea and vomiting x 1 month. History of Present Illness Patient is a 36-year-old female who presents for follow-up. Patient was previously evaluated 01/27/2021 and had previous EGD 12/09/[address] Mason that revealed normal esophagus, esophagus dilated during EGD, antral ulcer with inflamed surrounding mucosa leading to pyloric opening mild stricture, normal duodenum, stomach biopsy with antral mucosa with mild chronic inactive gastritis and regenerative changes, negative for intestinal metaplasia, negative for H. pylori, gastric ulcer biopsy revealed mild chronic inflammation and hyperplastic regenerative changes, negative for intestinal metaplasia?was recommended by Dr. Mason to increase omeprazole to 40 mg twice daily and to take Carafate every 6 hours, avoid NSAIDs, and to repeat EGD in 8 to 10 weeks. Repeat EGD 02/02/[address] Mason revealed normal esophagus, antral scar without ulcers, normal duodenum. Previous labs 01/2021 revealed normal H&H, labs 08/17/2021 revealed normal BUN, normal creatinine, normal TSH. Patient with history of dysphagia and had previous modified barium swallow 01/2021 that revealed no aspiration or laryngeal penetration. Note from previous evaluation by Dr. Mason from 12/01/2020 indicated that patient has history of common variable immunodeficiency that is managed by her ratoprinter at [facility]. 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 In 2016 patient had ileostomy reversal. Patient had previous flexible sigmoidoscopy 05/2017 that revealed anal fissure and was recommended no repeat colonoscopies. Patient had previous celiac blood testing 11/2020 that was normal. Patient also had previous gallbladder ultrasound 11/2020 that showed no evidence of cholelithiasis. Patient had reported during previous evaluation that her ratoprinter wanted to speak to Dr. Mason personally in regards to her nervous system dysfunction and variable immunodeficiency. Patient reported having improvement in nausea and epigastric pain during previous evaluation. During today's visit, patient reports she has had change in bowel movements over the last month. Patient explains she has noticed difficulty having a BM and usually has loose stools however, over the last month she is having smaller amount of stool with mucus and fecal urgency and feels like she is not completely emptying stool. Is having 4 small BMs daily that are primarily mucus. Is taking metamucil 4 capsules that she has been taking for years that is no longer helping. Is also having nausea/vomiting that started over the last 2 weeks, explains she stopped taking omeprazole 11 months ago, explains she was uncertain if she was to continue omeprazole or not. Nausea is occurring daily. Is having vomiting while trying to eat or brush her teeth, occurring 2 times a week. Patient explains she has also been having epigastric pain described as burning and indigestion over the last 2 weeks, occurring daily. Denies fevers, denies having any other GI complaints. Review of Systems PHQ Score Initial Depression Screen Score: 0 ROS - Provider Constitutional: no fever, no chills. Skin: no Jaundice. ENMT: Denies dysphagia. Yes indigestion- See HPI for details regarding. Respiratory: no shortness of breath. Cardiovascular: no chest pain. Gastrointestinal: yes nausea, yes vomiting, no diarrhea, no GI bleeding. Physical Exam Vitals & Measurements T: 36.3 ?C(Temporal Artery) HR: 83(Peripheral) BP: 102/72 HT: 61 in HT: 155 cm WT: 60.2 kg WT: 132.44 lb BMI: 25.06 General: Well developed, well nourished, in no acute distress Head: Normocephalic/atraumatic Lungs: Normal respiratory effort and clear to auscultation Cardio: Regular rate and rhythm, normal S1 and S2, no murmur, no rub Abdomen: Soft, non-distended, non-tender. Normoactive bowel sounds present in all 4 abdominal quadrants, bilaterally. Mental Status: Alert and oriented x3. Normal mood and affect Assessment/Plan 1. Change in bowel habits (R19.4: Change in bowel habit) Change in bowel movements over the last month she has noticed difficulty having a BM. Explains normally having loose stools however, over the last month is having smaller amount of stool with mucus and fecal urgency and feels like she is not completely emptying stool. Ordered flexible sigmoidoscopy. Patient with hx. total colectomy in 2016 and ileostomy reversal in 2017. Ordered stool testing to evaluate for infectious process. Ordered CBC/CMP to evaluate for acute process. Ordered: CBC w/ Auto Diff Clostridium Difficile PCR Comprehensive Metabolic Panel Enteric Panel by PCR Fecal WBC Lactoferrin Giardia lamblia, Direct Detection EIA O & P Exam, Routine Sigmoidoscop (more content not included)... Normal [facility] Comment on above: Result Comment: Elec tronically Signed By: Alexia Bolaños CNP\.tera\Date and Time Signed: 12/29/21 13:21 EST HEMATOLOGYOrdered By: SYSTEM SYSTEM on 12-29-2021 Basophils/100 WBC (Bld) 1.8 % Normal 0.0 - 2.0 % [facility] HemeAutoSS Basophils/Leukocytes Auto (Bld) [Pure # fraction] 0.1 E9/L Normal 0.0 - 0.2 E9/L [facility] HemeAutoSS Eosinophils/100 WBC (Bld) 7.0 % Normal 0.0 - 8.0 % [facility] HemeAutoSS Eosinophils/Leukocyt es Auto (Bld) [Pure # fraction] 0.3 E9/L Normal 0.0 - 0.5 E9/L [facility] HemeAutoSS Lymphocytes/100 WBC (Bld) 45.8 % Normal 14.0 - 50.0 % [facility] HemeAutoSS Lymphocytes/Leukocyt es Auto (Bld) [Pure # fraction] 1.7 E9/L Normal 1.0 - 4.0 E9/L [facility] HemeAutoSS Monocytes/100 WBC (Bld) 7.7 % Normal 4.0 - 14.0 % [facility] HemeAutoSS Monocytes/Leukocytes Auto (Bld) [Pure # fraction] 0.3 E9/L Normal 0.2 - 1.0 E9/L [facility] HemeAutoSS Neutrophils/100 WBC (Bld) 37.7 % Normal 36.0 - 75.0 % [facility] HemeAutoSS Neutrophils/Leukocyt es Auto (Bld) [Pure # fraction] 1.4 E9/L Low 2.0 - 7.5 E9/L [facility] HemeAutoSS HEMATOLOGYOrdered By: Scottie Hunt on 12-29-2021 Erythrocyte distribution width (RBC) [Ratio] 12.9 % Normal 10.9 - 14.2 % [facility] HemeAutoSS Hematocrit (Bld) [Volume fraction] 39.3 % Normal 34.0 - 46.0 % [facility] HemeAutoSS Hemoglobin (Bld) [Mass/Vol] 13.3 g/dL Normal 12.0 - 16.0 gm/dL [facility] HemeAutoSS MCH (RBC) [Entitic mass] 32.2 pg Normal 27.0 - 34.0 pg FT HemeAutoSS MCHC (RBC) [Mass/Vol] 33.7 g/dL Normal 31.4 - 36.0 gm/dL [facility] HemeAutoSS MCV (RBC) [Entitic vol] 95.5 fL Normal 80.0 - 100.0 fL [facility] HemeAutoSS Platelet mean volume (Bld) [Entitic vol] 8.2 fL Normal 6.4 - 10.8 fL [facility] HemeAutoSS Platelets (Bld) [#/Vol] 128.0 E9/L Low 150.0 - 500.0 E9/L [facility] HemeAutoSS RBC (Bld) [#/Vol] 4.1 E12/L Low 4.3 - 5.9 E12/L [facility] HemeAutoSS WBC corrected for nucl RBC Auto (Bld) [#/Vol] 3.8 E9/L Low 4.0 - 11.0 E9/L [facility] HemeAutoSS Patient Educationon 12-30-19 Patient Education Gastroenterology Nausea, Adult Nausea is the feeling that you have an upset stomach or that you are about to vomit. Nausea on its own is not usually a serious concern, but it may be an early sign of a more serious medical problem. As nausea gets worse, it can lead to vomiting. If vomiting develops, or if you are not able to drink enough fluids, you are at risk of becoming dehydrated. Dehydration can make you tired and thirsty, cause you to have a dry mouth, and decrease how often you urinate. Older adults and people with other diseases or a weak disease-fighting system (immune system) are at higher risk for dehydration. The main goals of treating your nausea are: ? To relieve your nausea. ? To limit repeated nausea episodes. ? To prevent vomiting and dehydration. Follow these instructions at home: Watch your symptoms for any changes. Tell your health care provider about them. Follow these instructions as told by your health care provider. Eating and drinking ? Take an oral rehydration solution (ORS). This is a drink that is sold at pharmacies and retail stores. ? Drink clear fluids slowly and in small amounts as you are able. Clear fluids include water, ice chips, low-calorie sports drinks, and fruit juice that has water added (diluted fruit juice). ? Eat bland, zjfr-qm-arzhbv foods in small amounts as you are able. These foods include bananas, applesauce, rice, lean meats, toast, and crackers. ? Avoid drinking fluids that contain a lot of sugar or caffeine, such as energy drinks, sports drinks, and soda. ? Avoid alcohol. ? Avoid spicy or fatty foods. General instructions ? Take clpc-iuc-htbaays and prescription medicines only as told by your health care provider. ? Rest at home while you recover. ? Drink enough fluid to keep your urine pale yellow. ? Breathe slowly and deeply when you feel nauseous. ? Avoid smelling things that have strong odors. ? Wash your hands often using soap and water. If soap and water are not available, use hand wool shearing supervisor. ? Make sure that all people in your household wash their hands well and often. ? Keep all follow-up visits as told by your health care provider. This is important. Contact a health care provider if: ? Your nausea gets worse. ? Your nausea does not go away after two days. ? You vomit. ? You cannot drink fluids without vomiting. ? You have any of the following: ? New symptoms. ? A fever. ? A headache. ? Muscle cramps. ? A rash. ? Pain while urinating. ? You feel light-headed or dizzy. Get help right away if: ? You have pain in your chest, neck, arm, or jaw. ? You feel extremely weak or you faint. ? You have vomit that is bright red or looks like coffee grounds. ? You have bloody or black stools or stools that look like tar. ? You have a severe headache, a stiff neck, or both. ? You have severe pain, cramping, or bloating in your abdomen. ? You have difficulty breathing or are breathing very quickly. ? Your heart is beating very quickly. ? Your skin feels cold and clammy. ? You feel confused. ? You have signs of dehydration, such as: ? Dark urine, very little urine, or no urine. ? Cracked lips. ? Dry mouth. ? Sunken eyes. ? Sleepiness. ? Weakness. These symptoms may represent a serious problem that is an emergency. Do not wait to see if the symptoms will go away. Get medical help right away. Call your local emergency services (911 in the .[place] Do not drive yourself to the hospital. Summary ? Nausea is the feeling that you have an upset stomach or that you are about to vomit. Nausea on its own is not usually a serious concern, but it may be an early sign of a more serious medical problem. ? If vomiting develops, or if you are not able to drink enough fluids, you are at risk of becoming dehydrated. ? Follow recommendations for eating and drinking and take bizu-cre-jasyaox and prescription medicines only as told by your health care provider. ? Contact a health care provider right away if your symptoms worsen or you have new symptoms. ? Keep all follow-up visits as told by your health care provider. This is important. This information is not intended to replace advice given to you by your health care provider. Make sure you discuss any questions you have with your health care provider. Document Released: 03/15/2005 Document Revised: 07/16/2018 Document Reviewed: 07/16/2018 [employer] Patient Education ? 2020 [employer] Normal [facility] eGFRon 12-29-2021 GFR/1.73 sq M.predicted among blacks MDRD (S/P/Bld) [Vol rate/Area] mL/min/{1.73_m2} Normal >=59 [facility] Comment on above: Order Comment: Order added by Discern Expert. Result Comment: eGFR is race adjusted. AA=. Performed By: #### 2 024739, 7229968, 1271992, [id number] ####[facility] [address] [place] [address] GFR/1.73 sq M.predicted among non-blacks MDRD (S/P/Bld) [Vol rate/Area] 56 mL/min/1.73 m2 Low >=59 [facility] Comment on above: Order Comment: Order added by Discern Expert. Result Comment: Director [employer] gina kidney disease could be indicated at eGFR's of less than 60 mL/min/1.73m2. Kidney failure is indicated at less than 15 mL/min/1.73m2. Performed By: #### 2 629060, 7829826, 9039130, [id number] ####[facility] [address] [place] [address] [facility] Medicine Office/Clini c Noteon 11-01-2021 Family Medicine Office/Clinic Note Chief Complaint 3 month follow up HPI Staff Ben is a 35 year old female who presents for a 3 month follow up for her controlled medication. She has a chronic history of ADD. She takes Focalin XR 15mg once daily, as directed, without adverse effects. States this is still working well for her. Denies any concerns with sleep or appetite. OARRS reviewed: Yes Medication Agreement updated: 07/25/21 Urine Drug Screen done: No Pill Count Done: No History of Present Illness I have reviewed and verified the staff HPI to be accurate for this encounter. Recovered from COVID, but does say her sinuses are still very congested. Review of Systems PHQ Score Initial Depression Screen Score: 0 Constitutional: no fever, no chills, no sweats, no weakness Respiratory: no shortness of breath, no cough, no orthopnea, no wheezing Cardiovascular: no chest pain, no palpitations, no edema Additional ROS info: Except as noted in the above Review of Systems and in the History of Present Illness all other systems have been reviewed and are negative or noncontributory. Physical Exam Vitals & Measurements T: 36.4 ?C(Temporal Artery) HR: 76(Peripheral) BP: 110/64 SpO2: 99% HT: 155.0 cm HT: 155 cm WT: 59.7 kg WT: 59.7 kg BMI: 24.85 General: alert, no acute distress Skin: warm, dry Head: no trauma, normocephalic Neck: Trachea midline, no adenopathy, no tenderness Eye: normal conjunctiva, sclera clear ENMT: TM's clear, oral mucosa moist, no pharyngeal erythema or exudate Cardiovascular: regular rate and rhythm, normal peripheral perfusion Respiratory: Lungs CTA, respirations non labored Chest wall: no deformity. Gastrointestinal: soft, non distended, no tenderness, no guarding. Back: No tenderness, Normal ROM, Normal alignment. Extremities: no deformity, no trauma Neurological: oriented x 4, LOC appropriate for age, CN II-XII intact, motor strength equal & normal bilaterally, sensation equal & normal bilaterally, speech normal Psychiatric: cooperative, affect appropriate for age, normal judgement, normal psychiatric thoughts. Assessment/Plan 1. Generalized anxiety disorder (F41.1: Generalized anxiety disorder) She can continue the lorazepam only as needed. 2. Attention deficit disorder (ADD) (F98.8: Other specified behavioral and emotional disorders with onset usually occurring in childhood and adolescence) She can continue her methylphenidate. 3. Bilateral leg weakness (R29.898: Other symptoms and signs involving the musculoskeletal system) She has biopsies pending looking for small fiber neuropathy. 4. Chronic sinusitis (J32.9: Chronic sinusitis, unspecified) Give her antibiotics and steroids. She can use them if she feels she needs them. Follow-up with ENT. Orders: amoxicillin, 875 mg = 1 tab(s), Oral, BID, X 10 day(s), # 20 tab(s), Refills(s) 0, Pharmacy: [facility], 155, cm, 11/01/21 16:20:00 EDT, Height/Length Dosing, 59.7, kg, 11/01/21 16:20:00 EDT, Weight Dosing methylPREDNISolone, = 1 packet(s), Oral, As Directed, as directed on package labeling, X 6 day(s), # 21 tab(s), Refills(s) 0, Pharmacy: [facility], 155, cm, 11/01/21 16:20:00 EDT, Height/Length Dosing, 59.7, kg, 11/01/21 16:20:00 EDT, Weight Dosing predniSONE, 0 = 1 -, Oral, As Directed, Take 5 tabs by mouth daily x3 days, 4 daily x3 days, 3 daily x3 days, 2 daily x3 days, then 1 tab daily x3 days., # 45 tab(s), Refills(s) 0, Pharmacy: [facility], 155, cm, 08/15/21 15:25:00 EDT, Height/Length Dosi... Follow-up With When Contact Information Lizy SORIA DO, FAM In 3 months [address] [facility] [address] [place] [id number]- Additional Instructions: Lizy SORIA DO, FAM In 3 months [address] [facility] [address] [place] [id number]- Additional Instructions: Problem List/Past Medical History Ongoing Attention deficit disorder (ADD) Bilateral arm weakness Bilateral leg weakness Chronic insomnia Chronic kidney disease, stage 2 (mild) Chronic sinusitis Common variable immunodeficiency Episode of shaking Fatigue Generalized anxiety disorder Hypothyroidism Multiple falls Paresthesias 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 Medications 1 LITER NORMAL SALINE amoxicillin 875 mg Tab, 875 mg= 1 tab(s), Oral, BID busPIRone 10 mg Tab, 30 mg= 3 tab(s), Oral, BID, 5 refills FLUoxetine 60 mg oral tablet, 60 mg= 1 tab(s), Oral, Daily fluticasone 0.05 mg/inh Nasal [address], 2 spray(s), Nasal, Daily Focalin XR 2 (more content not included)... Normal [facility] Comment on above: Result Comment: Elec tronically Signed By: Lizy SORIA DO\.br\Date and Time Signed: 11/01/21 20:52 EDT MRI BRAIN WO/W IVCONon 10-11 MRI BRAIN WO/W IVCON * * *Final Report* * * DATE OF EXAM: Oct 11 2021 1:07PM [facility] 0295 - MRI BRAIN WO/W IVCON / PROCEDURE REASON: Demyelinating disease of central nervous system (HCC) * * * * Physician Interpretation * * * * EXAMINATION: MRI CERVICAL SPINE WO/W IVCON, MRI BRAIN WO/W IVCON HISTORY: Per Epic notes- Intermittent numbness and weakness. She had two episodes of total leg and arm numbness, causing her to fall. Her arms feel constantly numb / feeling of butterflies in them. TECHNIQUE: Routine Contrast-Enhanced Brain MRI Protocol Routine Cervical Spine MR Protocol with Gadolinium MR Contrast: Dotarem Contrast Dose: 12 cc Route of Administration: IV Cervical spine MRI 05/24/2011. Brain MRI 04/14/2020 COMPARISON: None. RESULT: BRAIN MRI FINDINGS: Acute Change: No evidence of an acute intracranial process. Hemorrhage: No evidence of prior parenchymal hemorrhage on the susceptibility weighted sequences. Mass Lesion/ Mass Effect: No evidence of an intracranial mass or extra-axial fluid collection. No significant mass effect. There is no evidence of abnormal intracranial enhancement. There is no evidence of herniation. Chronic Change: The white matter is within normal limits of signal intensity for age. Parenchyma: No significant volume loss for age. The brain parenchyma is otherwise within normal limits of signal intensity and morphology. Ventricles: Normal caliber and morphology. Skull Base: Hypothalamic and pituitary region are grossly normal. Craniocervical junction is normal. No significant marrow replacement process. Vasculature: Major intracranial arterial structures and dural venous sinuses demonstrate typical flow voids, suggesting patency by spin echo criteria. Other: The visualized paranasal sinuses and mastoid air cells are clear. The orbits and extracranial soft tissues are unremarkable. CERVICAL SPINE FINDINGS: Counting reference: Craniocervical junction. Localizer images: No significant findings. Alignment: Alignment is anatomic. There is mild reversal of the normal cervical lordosis. There is loss of normal intervertebral disc signal extending from C2 to C5 and minimal loss of interval disc height at C4-C5 and mild at C5-C6, compatible with discogenic degenerative changes. Craniocervical junction: Craniocervical junction is normal. Cord: The visualized cord is within normal limits of signal intensity and morphology. Bone marrow signal/fracture: No evidence of pathologic marrow infiltration. No evidence of prior fracture. Cervical soft tissues: The paraspinal soft tissues are within normal limits. Enhancement: There is no evidence of abnormal enhancement in the cervical spine. C2-C3: Canal and foramina are patent. C3-C4: There is mild bilateral facet arthropathy and mild diffuse disc bulge without evidence of significant spinal canal stenosis or neural foraminal narrowing. C4-C5: There is mild bilateral facet arthropathy and mild diffuse disc bulge without evidence of significant spinal canal stenosis or neural foraminal narrowing. C5-C6: There is mild bilateral facet arthropathy and small central disc protrusion with a small annular fissure resulting in effacement of the ventral thecal sac and contact of the ventral cord. There is no neural foraminal narrowing. C6-C7: There is mild bilateral facet arthropathy and uncovertebral osteophytes resulting in minimal bilateral neural foraminal narrowing. Is no significant spinal canal stenosis. C7-T1: Canal and foramina are patent. IMPRESSION: No evidence of demyelination or acute demyelinating lesion in the brain and cervical spine. Staple Laster: CHENG Transcribe Date/Time: Oct 11 2021 1:15P Dictated by : ENRIQUE VERDUZCO MD This examination was interpreted and the report reviewed and electronically signed by: ENRIQUE VERDUZCO MD on Oct 11 2021 1:34PM EST [id number] Normal [facility] MRI CERVICAL SPINE WO/W IVCO Non 10-11-2021 MRI CERVICAL SPINE WO/W IVCON * * *Final Report* * * DATE OF EXAM: Oct 11 2021 1:07PM [facility] 0298 - MRI CERVICAL SPINE WO/W IVCON / PROCEDURE REASON: Demyelinating disease of central nervous system (HCC) * * * * Physician Interpretation * * * * EXAMINATION: MRI CERVICAL SPINE WO/W IVCON, MRI BRAIN WO/W IVCON HISTORY: Per Epic notes- Intermittent numbness and weakness. She had two episodes of total leg and arm numbness, causing her to fall. Her arms feel constantly numb / feeling of butterflies in them. TECHNIQUE: Routine Contrast-Enhanced Brain MRI Protocol Routine Cervical Spine MR Protocol with Gadolinium MR Contrast: Dotarem Contrast Dose: 12 cc Route of Administration: IV Cervical spine MRI 05/24/2011. Brain MRI 04/14/2020 COMPARISON: None. RESULT: BRAIN MRI FINDINGS: Acute Change: No evidence of an acute intracranial process. Hemorrhage: No evidence of prior parenchymal hemorrhage on the susceptibility weighted sequences. Mass Lesion/ Mass Effect: No evidence of an intracranial mass or extra-axial fluid collection. No significant mass effect. There is no evidence of abnormal intracranial enhancement. There is no evidence of herniation. Chronic Change: The white matter is within normal limits of signal intensity for age. Parenchyma: No significant volume loss for age. The brain parenchyma is otherwise within normal limits of signal intensity and morphology. Ventricles: Normal caliber and morphology. Skull Base: Hypothalamic and pituitary region are grossly normal. Craniocervical junction is normal. No significant marrow replacement process. Vasculature: Major intracranial arterial structures and dural venous sinuses demonstrate typical flow voids, suggesting patency by spin echo criteria. Other: The visualized paranasal sinuses and mastoid air cells are clear. The orbits and extracranial soft tissues are unremarkable. CERVICAL SPINE FINDINGS: Counting reference: Craniocervical junction. Localizer images: No significant findings. Alignment: Alignment is anatomic. There is mild reversal of the normal cervical lordosis. There is loss of normal intervertebral disc signal extending from C2 to C5 and minimal loss of interval disc height at C4-C5 and mild at C5-C6, compatible with discogenic degenerative changes. Craniocervical junction: Craniocervical junction is normal. Cord: The visualized cord is within normal limits of signal intensity and morphology. Bone marrow signal/fracture: No evidence of pathologic marrow infiltration. No evidence of prior fracture. Cervical soft tissues: The paraspinal soft tissues are within normal limits. Enhancement: There is no evidence of abnormal enhancement in the cervical spine. C2-C3: Canal and foramina are patent. C3-C4: There is mild bilateral facet arthropathy and mild diffuse disc bulge without evidence of significant spinal canal stenosis or neural foraminal narrowing. C4-C5: There is mild bilateral facet arthropathy and mild diffuse disc bulge without evidence of significant spinal canal stenosis or neural foraminal narrowing. C5-C6: There is mild bilateral facet arthropathy and small central disc protrusion with a small annular fissure resulting in effacement of the ventral thecal sac and contact of the ventral cord. There is no neural foraminal narrowing. C6-C7: There is mild bilateral facet arthropathy and uncovertebral osteophytes resulting in minimal bilateral neural foraminal narrowing. Is no significant spinal canal stenosis. C7-T1: Canal and foramina are patent. IMPRESSION: No evidence of demyelination or acute demyelinating lesion in the brain and cervical spine. Staple Laster: CHENG Transcribe Date/Time: Oct 11 2021 1:15P Dictated by : ENRIQUE VERDUZCO MD This examination was interpreted and the report reviewed and electronically signed by: ENRIQUE VERDUZCO MD on Oct 11 2021 1:34PM EST [id number] Normal [facility] NURSING PROGon 10-11-2021 NURSING PROG HNO ID: [id number] Author: Zaida Cisneros RN Service: Radiology Author Type: Registered Nurse Type: Nursing Progress Note Filed: 10/11/2021 11:53 AM Note Text: Radiology Service Progress Note DATE OF SERVICE: October 11, 2021 TIME: 11:52 AM PATIENT WEIGHT: 130 LBS PATIENT IDENTITY VERIFICATION COMPLETED USING TWO (2) STANDARD IDENTIFIERS: Name and Date of confirmed by patient verbally and Name and Date of confirmed by identification band. FALL SCREENING: Has the patient had 2 falls in the last year or 1 fall with injury or currently using an Ambulatory Assistive Device (Walker, Cane, Wheelchair, Crutches, etc.)? No PATIENT GENDER DATA: Female. status: : No status: NO. ALLERGIES: Reviewed and unchanged CONTRAST ALLERGY: No EXAM: MRI - CONTRAST TYPE: GROUP II IV SITE: Ambulatory: A peripheral IV was started in the Right antecubital site with a Angio cath/Butterfly: 22 gauge. Diffusics by Tru Boyer RN IV SITE APPEARANCE: Clean,Dry and Intact SIGNATURE: Zaida Cisneros RN PATIENT NAME: Ben Barr DATE: October 11, 2021 TIME: 11:52 AM Normal [facility] No Panel Informationon 10-11 [facility] C-REACTIVE ULTRA SENon 09-20 CRP High sensitivity method [Mass/Vol] 2.2 mg/L <3.1 mg/L [facility] CERULOPLASMIN BLDon 09-21-19 Ceruloplasmin [Mass/Vol] 29 mg/dL 16 - 45 mg/dL [facility] ESR Westergren method (Bld) [Velocity]on 09-20-2021 ESR (Bld) [Velocity] 8 mm/h 0 - 20 mm/hr [facility] FERRITIN BLDon 09-20-2021 Ferritin [Mass/Vol] 116.0 ng/mL 14.7 - 205.1 ng/mL [facility] Iron and Iron binding capaci ty panelon 09-20-2021 Iron [Mass/Vol] 82 ug/dL 41 - 186 ug/dL [facility] Iron binding capacity [Mass/Vol] 303 ug/dL 232 - 386 ug/dL [facility] Iron/TIBC [Molar ratio] 27.1 % 15.0 - 57.0 % [facility] VITAMIN B12 BLOODon 09-21-19 Cobalamin (Vitamin B12) [Mass/Vol] 700 pg/mL 232-1,245 pg/mL [facility] CHEMISTRYOrdered By: SYSTEM SYSTEM on 08-17-2021 CK [Catalytic activity/Vol] 36 [iU]/d Normal 14 - 261 Int._Unit/ L [facility] Remisol Creatinine [Mass/Vol] 0.9 mg/dL Normal 0.5 - 1.3 mg/dL [facility] Remisol CRP [Mass/Vol] 0.6 mg/dL Normal <=1.9mg/dL [facility] Remis ol GFR/1.73 sq M.predicted among blacks MDRD (S/P/Bld) [Vol rate/Area] mL/min/1.73 m2 Normal >=59mL/min /1.73 m2 [facility] [place] S GFR/1.73 sq M.predicted among non-blacks MDRD (S/P/Bld) [Vol rate/Area] mL/min/1.73 m2 Normal >=59mL/min /1.73 m2 [facility] S TSH Qn 2.19 m[IU]/L Normal 0.34 - 5.60 mcIU/mL [facility] Remisol Urea nitrogen [Mass/Vol] 20 mg/dL Normal 5 - 21 mg/dL [facility] Remisol Amphetamine Screen Ql (U)Ord ered By: Lilian Lewis on 08-04-2021 Amphetamines Ql (U) Negative Negative [facility] Barbiturates [Presence] in U rineOrdered By: Lilian Lewis on 08-04-2021 Barbiturates Ql (U) Negative Negative [facility] Basic Metabolic Panelon 07-20 Calcium [Mass/Vol] 9.6 mg/dL Normal 8.2-10.2 [facility] Comment on above: Performed By: #### C KODI, BMP #### [facility] [address] [place] [id number] [place] Chloride [Moles/Vol] 103 mmol/L Normal 95-114 [facility] Comment on above: Performed By: #### C BC, BMP #### [facility] [address] [place] [address] [place] CO2 [Moles/Vol] 19.7 mmol/L Low 22.0-30.0 [facility] Comment on above: Performed By: #### C BC, BMP #### [facility] [address] [place] [id number] [place] Creatinine [Mass/Vol] 1.45 mg/dL High 0.44-1.03 [facility] Comment on above: Performed By: #### C BC, BMP #### [address] Creatinine Clr Calc Pharmacy 40.86 [facility] Comment on above: Result Comment: PERF ORMED BY: [place] [address] PATHOLOGIST [employer] KRISTA JAMES M.D. Performed By: #### C BC, BMP #### [address] Estimated GFR ( Maldonado 50 [facility] Comment on above: Result Comment: GFR estimated reference range: According to KDOQI guidelines, <60 ml/min/1.73m2 is sufficient to diagnose a patient with chronic kidney disease. Performed By: #### C BC, BMP #### [address] Estimated GFR (Non- Am 41 [facility] Comment on above: Performed By: #### C BC, BMP #### [address] Glucose [Mass/Vol] 96 mg/dL Normal 70-100 [facility] Comment on above: Result Comment: [place] Glucose Reference Range is dependent on time and content of last meal. Glucose of more than 200 mg/dL in a nonstressed, ambulatory subject supports the diagnosis of Diabetes Mellitus. ADA recommended reference range Performed By: #### C BC, BMP #### [address] Potassium [Moles/Vol] 4.4 mmol/L Normal 3.5-5.1 [facility] Comment on above: Performed By: #### C BC, BMP #### [place] [address] [place] Sodium [Moles/Vol] 136 mmol/L Normal 136-146 [facility] Comment on above: Performed By: #### C BC, BMP #### [address] Urea nitrogen [Mass/Vol] 17 mg/dL Normal 9-23 [facility] Comment on above: Performed By: #### C BC, BMP #### [address] Basophils Auto (Bld) [#/Vol] Ordered By: Lilian Lewis on 08-04-2021 Basophils (Bld) [#/Vol] 0.0 10*3/uL 0.0-0.2 [facility] Basophils/100 WBC Auto (Bld) Ordered By: Lilian Lewis on 08-04-2021 Basophils/100 WBC (Bld) 0.4 % [facility] Benzodiazepines [Presence] i n UrineOrdered By: Lilian Lewis on 08-04-2021 Benzodiazepines Ql (U) Negative Negative [facility] Bilirubin Test strip Ql (U)O rdered By: Lilian Lewis on 08-04-2021 Bilirubin Ql (U) Negative Negative [facility] Blood hemoglobin measurement (mass/volume)Ordered By: Lilian Lewis on 08-04-2021 Hemoglobin (Bld) [Mass/Vol] 12.4 g/dL 11.8-15.4 [facility] Blood leukocytes automated c ount (number/volume)Ordered By: Lilian Lewis on 08-04-2021 WBC (Bld) [#/Vol] 5.7 10*3/uL 4.5-11.0 [facility] CT angio headon 08-04-2021 CT angio head [facility] [place] [address] [place] [address] CT Scan Report Signed Patient: Ben Barr MR#: [id number] : 1985 Acct:[id number] Age/Sex: 35 / F ADM Date: 08/04/21 Loc: ER Room: Type: [facility] ER Attending Dr: Copies to: Lilian Lewis APRN Ordering Provider: Lilian Lewis APRN Date of Service: 08/04/21 CT/CT angio head: hx of tumor/ tremors/ pain CTA OF THE [place] OF MG WITH CONTRAST CLINICAL DATA: Extremity tremors with recent worsening and multiple falls. Intermittent blurred vision. History of pituitary adenoma. COMPARISON: 06/01/2017 and MRI 05/23/2008 Spiral axial images were obtained through the head following 67 mL of Isovue 370. Sagittal and coronal MIP as well as 3-D volume rendered images of the upper [place] of Mg were reviewed. This CT exam was performed using one or more following dose reduction techniques: Automated exposure control, adjustment of the mA and/or kV according to patient size, or use of iterative reconstruction technique. The vertebral, basilar and posterior cerebral arteries show no significant findings. The carotid arteries are patent. The anterior and middle cerebral arteries are within normal limits for caliber. There is no focal stenosis or suspected thrombosis. No aneurysms are identified. No pathologic intracranial enhancement is noted. There is normal opacification of the dural venous sinuses. CT/CT angio head IMPRESSION: NO SIGNIFICANT VASCULAR FINDINGS. Impression dictated by: Erna Sandy M.D.08/04/2021 4:34 PM Dictation Location: [place] [address] Transcribed By: [facility] 08/04/21 1634 Dictated By: Erna Sandy MD 08/04/21 1618 Signed By: 08/04/21 1634 Normal [facility] CT cervical spine wo conon 0 08-04-2021 CT cervical spine wo [facility] [address] CT Scan Report Signed Patient: Ben Barr MR#: [id number] : 1985 Acct:[id number] Age/Sex: 35 / F ADM Date: 08/04/21 Loc: ER Room: Type: [facility] ER Attending Dr: Copies to: Lilian Lewis APRN Ordering Provider: Lilian Lewis APRN Date of Service: 08/04/21 CT/CT cervical spine wo con: pain CT CERVICAL SPINE WITHOUT CONTRAST WITH 3D RECONSTRUCTIONS: CLINICAL HISTORY: Extremity tremors for the past one to 2 weeks, worsening over the past 2 days with multiple falls. COMPARISON: None TECHNIQUE: Spiral axial unenhanced images were obtained through the cervical spine. Sagittal, coronal and 3D volume-rendered reconstructions were also reviewed. This CT exam was performed using one or more following dose reduction techniques: Automated exposure control, adjustment of the mA and/or kV according to patient size, or use of iterative reconstruction technique. FINDINGS: There is slight reversal of the normal cervical lordosis. Alignment is maintained in the sagittal plane. No fractures are identified. The disc spaces are uniform. The atlantoaxial relationship is maintained. No prevertebral soft tissue swelling is seen. CT/CT cervical spine wo con IMPRESSION: NO ACUTE BONY INJURY. Impression dictated by: Erna Sandy M.D.08/04/2021 4:18 PM Dictation Location: [place] [address] Transcribed By: [facility] 08/04/21 161 Dictated By: Erna Sandy MD 08/04/21 161 Signed By: 08/04/21 161 Normal [facility] Cannabinoids [Presence] in U rine by Screen methodOrdered By: Lilian Lewis on 08-04-2021 Cannabinoids Screen Ql (U) Positive Negative [facility] Comment on above: These are unconfirme d results and should not be used for legal purposes. Drug Cut-Off Concentration: AMPH 1000 ng/mL LOPEZ 200 ng/mL CARLOS 200 ng/mL COCM 300 ng/mL OP 300 ng/mL PCP 25 ng/mL THC 20 ng/mL Color Auto (U)Ordered By: Angel Lewis on 08-04-2021 Color (U) Yellow Yellow [facility] Complete Blood Count Auto Di ffon 08-04-2021 Basophils (Bld) [#/Vol] 0.0 10*3/uL Normal 0.0-0.2 [facility] Comment on above: Result Comment: PERF ORMED BY: [place] [address] PATHOLOGIST [employer] KRISTA JAMES M.D. Performed By: #### C BC, BMP #### [facility] [address] [place] [address] Basophils/100 WBC (Bld) 0.4 % Normal . [facility] Comment on above: Performed By: #### C BC, BMP #### [facility] [address] [place] [address] Eosinophils (Bld) [#/Vol] 0.0 10*3/uL Normal 0.0-0.45 [facility] Comment on above: Performed By: #### C BC, BMP #### [address] Eosinophils/100 WBC (Bld) 0.1 % Normal . [facility] Comment on above: Performed By: #### C BC, BMP #### [address] Erythrocyte distribution width (RBC) [Ratio] 12.8 % Normal 11.9-15.3 [facility] Comment on above: Performed By: #### C BC, BMP #### [address] Hematocrit (Bld) [Volume fraction] 36.6 % Normal 34.0-46.4 [facility] Comment on above: Performed By: #### C BC, BMP #### [address] Hemoglobin (Bld) [Mass/Vol] 12.4 g/dL Normal 11.8-15.4 [facility] Comment on above: Performed By: #### C BC, BMP #### [address] Lymphocytes (Bld) [#/Vol] 0.8 10*3/uL Low 1.00-4.8 [facility] Comment on above: Performed By: #### C BC, BMP #### [address] Lymphocytes/100 WBC (Bld) 13.5 % Normal . [facility] Comment on above: Performed By: #### C BC, BMP #### [place] [address] [place] MCH (RBC) [Entitic mass] 30.7 pg Normal 24.7-34.3 [facility] Comment on above: Performed By: #### C BC, BMP #### [address] MCV (RBC) [Entitic vol] 90.6 fL Normal 80-100 [facility] Comment on above: Performed By: #### C BC, BMP #### [address] [place] [address] [place] Mean Corpuscular HGB Conc 33.9 g/dL Normal 32.0-35.0 [facility] Comment on above: Performed By: #### C KODI, BMP #### [facility] [address] [place] [address] [place] Monocytes (Bld) [#/Vol] 0.3 10*3/uL Normal 0.0-0.8 [facility] Comment on above: Performed By: #### C BC, BMP #### [facility] [address] [place] [address] [place] Monocytes/100 WBC (Bld) 4.9 % Normal . [facility] Comment on above: Performed By: #### C KODI, BMP #### [facility] [address] [place] [address] [place] Neutrophils (Bld) [#/Vol] 4.6 10*3/uL Normal 1.8-7.7 [facility] Comment on above: Performed By: #### C KODI, BMP #### [facility] [address] [place] [address] [place] Neutrophils/100 WBC (Bld) 81.1 % Normal . [facility] Comment on above: Performed By: #### C KODI, BMP #### [place] [address] [place] Nucleated RBC/100 WBC (Bld) [Ratio] 0.0 % Normal 0-0.5 [facility] Comment on above: Performed By: #### C KODI, BMP #### [facility] [address] [place] [address] [place] Platelet mean volume (Bld) [Entitic vol] 7.8 fL Normal 6.3-10.7 [facility] Comment on above: Performed By: #### C BC, BMP #### [facility] [facility] [address] [id number] [place] Platelets (Bld) [#/Vol] 242 10*3/uL Normal 150-450 [facility] Comment on above: Performed By: #### C KODI, BMP #### [facility] [address] [place] [address] RBC (Bld) [#/Vol] 4.04 10*6/uL Normal 3.60-5.00 [facility] Comment on above: Performed By: #### C BC, BMP #### [address] WBC (Bld) [#/Vol] 5.7 10*3/uL Normal 4.5-11.0 [facility] Comment on above: Performed By: #### C BC, BMP #### [address] Creatinine and Glomerular fi ltration rate.predicted panel (S/P/Bld)Ordered By: Lilian Lewis on 08-04-2021 Creatinine [Mass/Vol] 1.45 mg/dL 0.44-1.03 [facility] Drug Screen,Urineon 08-05-19 22 Amphetamine Screen,Urine Negative Normal Negative [facility] Comment on above: Performed By: #### U RDS #### [address] Barbiturate Screen,Urine Negative Normal Negative [facility] Comment on above: Performed By: #### U RDS #### [address] Benzodiazepines Screen,Urine Negative Normal Negative [facility] Comment on above: Performed By: #### U RDS #### [address] Cannabinoid Screen,Urine Positive High Negative [facility] Comment on above: Result Comment: Thes e are unconfirmed results and should not be used for legal purposes. Drug Cut-Off Concentration: AMPH 1000 ng/mL LOPEZ 200 ng/mL CARLOS 200 ng/mL COCM 300 ng/mL OP 300 ng/mL PCP 25 ng/mL THC 20 ng/mL PERFORMED BY: [place] [address] PATHOLOGIST [employer] KRISTA JAMES M.D. Performed By: #### U RDS #### [address] Cocaine Screen,Urine Negative Normal Negative [facility] Comment on above: Performed By: #### U RDS #### [facility] [address] Opiate Screen,Urine Negative Normal Negative [facility] Comment on above: Performed By: #### U RDS #### [facility] [address] Phencyclidine Screen,Urine Negative Normal Negative [facility] Comment on above: Performed By: #### U RDS #### [facility] [address] Eosinophils Auto (Bld) [#/Vo l]Ordered By: Lilian Lewis on 08-04-2021 Eosinophils (Bld) [#/Vol] 0.0 10*3/uL 0.0-0.45 [facility] Eosinophils/100 WBC Auto (Bl d)Ordered By: Lilian Lewis on 08-04-2021 Eosinophils/100 WBC (Bld) 0.1 % [facility] Erythrocyte distribution wid th Auto (RBC) [Ratio]Ordered By: Lilian Lewis on 08-04-2021 Erythrocyte distribution width (RBC) [Ratio] 12.8 % 11.9-15.3 [facility] Estimated glomerular filtrat ion rate (GFR) non- AmericanOrdered By: Lilian Lewis on 08-04-2021 GFR/1.73 sq M.predicted among non-blacks MDRD (S/P/Bld) [Vol rate/Area] 41 mL/Min [facility] HCG ( test) IA.rapi d Ql (U)Ordered By: Lilian Lewis on 08-04-2021 HCG ( test) Ql (U) Negative [facility] HCG,Urineon 08-04-2021 Beta HCG ( test) Ql (U) Negative Normal [facility] Comment on above: Order Comment: Name Collection Type:: Clean-Voided Midstream Result Comment: PERF ORMED BY: [place] [address] PATHOLOGIST [employer] JIANLAN SUN M.D. Performed By: #### U A, [facility] #### [facility] [address] Hematocrit Auto (Bld) [Volum e fraction]Ordered By: Lilian Lewis on 08-04-2021 Hematocrit (Bld) [Volume fraction] 36.6 % 34.0-46.4 [facility] Ketones Auto test strip (U) [Mass/Vol]Ordered By: Lilian Lewis on 08-04-2021 Ketones (U) [Mass/Vol] Negative Negative [facility] Laboratory - Drug toxicology Ordered By: Lilian Lewis on 08-04-2021 Opiates Ql (U) Negative Negative [facility] Laboratory - Hematology and Cell countsOrdered By: Lilian Lewis on 08-04-2021 Nucleated RBC/100 WBC (Bld) [Ratio] 0.0 % 0-0.5 [facility] Lymphocytes Auto (Bld) [#/Vo l]Ordered By: Lilian Lewis on 08-04-2021 Lymphocytes (Bld) [#/Vol] 0.8 10*3/uL 1.00-4.8 [facility] Lymphocytes/100 WBC Auto (Bl d)Ordered By: Lilian Lewis on 08-04-2021 Lymphocytes/100 WBC (Bld) 13.5 % [facility] MCH Auto (RBC) [Entitic mass ]Ordered By: Lilian Lewis on 08-04-2021 MCH (RBC) [Entitic mass] 30.7 pg 24.7-34.3 [facility] MCHC Auto (RBC) [Mass/Vol]Or dered By: Lilian Lewis on 08-04-2021 MCHC (RBC) [Mass/Vol] 33.9 g/dL 32.0-35.0 [facility] MCV Auto (RBC) [Entitic vol] Ordered By: Lilian Lewis on 08-04-2021 MCV (RBC) [Entitic vol] 90.6 fL 80-100 [facility] Monocytes Auto (Bld) [#/Vol] Ordered By: Lilian Lewis on 08-04-2021 Monocytes (Bld) [#/Vol] 0.3 10*3/uL 0.0-0.8 [facility] Monocytes/100 WBC Auto (Bld) Ordered By: Lilian Lewis on 08-04-2021 Monocytes/100 WBC (Bld) 4.9 % [facility] Neutrophils Auto (Bld) [#/Vo l]Ordered By: Lilian Lewis on 08-04-2021 Neutrophils (Bld) [#/Vol] 4.6 10*3/uL 1.8-7.7 [facility] Neutrophils/100 WBC Auto (Bl d)Ordered By: Lilian Lewis on 08-04-2021 Neutrophils/100 WBC (Bld) 81.1 % [facility] Nitrite Test strip Ql (U)Ord ered By: Lilian Lewis on 08-04-2021 Nitrite Ql (U) Negative Negative [facility] No Panel InformationOrdered By: Lilian Lewis on 08-04-2021 Estimated GFR () 50 mL/Min [facility] Comment on above: GFR estimated refere nce range: According to KDOQI guidelines, <60 ml/min/1.73m2 is sufficient to diagnose a patient with chronic kidney disease. Pharmacy Creatinine Clearance (Chem 40.86 [facility] Phencyclidine Screen Ql (U)O rdered By: Lilian Lewis on 08-04-2021 Phencyclidine Ql (U) Negative Negative [facility] Platelet mean volume Auto (B ld) [Entitic vol]Ordered By: Lilian Lewis on 08-04-2021 Platelet mean volume (Bld) [Entitic vol] 7.8 fL 6.3-10.7 [facility] Platelets Auto (Bld) [#/Vol] Ordered By: Lilian Lewis on 08-04-2021 Platelets (Bld) [#/Vol] 242 10*3/uL 150-450 [facility] Prolactinon 08-04-2021 Prolactin 39.93 ng/mL High 3.34-26.72 [facility] Comment on above: Result Comment: PERF ORMED BY: [facility] [address] [place] [address] PATHOLOGIST [employer] KRISTA JAMES M.D. Performed By: #### P RL #### [facility] [address] Protein Auto test strip (U) [Mass/Vol]Ordered By: Lilian Lewis on 08-04-2021 Protein (U) [Mass/Vol] Negative Negative [facility] RBC Auto (Bld) [#/Vol]Ordere d By: Lilian Lewis on 08-04-2021 RBC (Bld) [#/Vol] 4.04 10*6/uL 3.60-5.00 [facility] Serum or plasma calcium abimael urement (mass/volume)Ordered By: Lilian Lewis on 08-04-2021 Calcium [Mass/Vol] 9.6 mg/dL 8.2-10.2 [facility] Serum or plasma chloride rodolfo surement (moles/volume)Ordered By: Lilian Lewis on 08-04-2021 Chloride [Moles/Vol] 103 mmol/L 95-114 [facility] Serum or plasma glucose abimael urement (mass/volume)Ordered By: Lilian Lewis on 08-04-2021 Glucose [Mass/Vol] 96 mg/dL 70-100 [facility] Comment on above: ADA recommended refe rence range Random Glucose Reference Range is dependent on time and content of last meal. Glucose of more than 200 mg/dL in a nonstressed, ambulatory subject supports the diagnosis of Diabetes Mellitus. Serum or plasma potassium me asurement (moles/volume)Ordered By: Lilian Lewis on 08-04-2021 Potassium [Moles/Vol] 4.4 mmol/L 3.5-5.1 [facility] Serum or plasma sodium measu rement (moles/volume)Ordered By: Lilian Lewis on 08-04-2021 Sodium [Moles/Vol] 136 mmol/L 136-146 [facility] Serum or plasma total carbon dioxide measurement (moles/volume)Ordered By: Lilian Lewis on 08-04-2021 CO2 [Moles/Vol] 19.7 mmol/L 22.0-30.0 [facility] Serum or plasma urea nitroge n measurement (mass/volume)Ordered By: Lilian Lewis on 08-04-2021 Urea nitrogen [Mass/Vol] 17 mg/dL 11-11 [facility] Specific gravity Auto test s trip (U) [Rel density]Ordered By: Lilian Lewis on 08-04-2021 Specific gravity (U) [Rel density] 1.006 1.001-1.03 0 [facility] Urinalysison 08-04-2021 Appearance (U) Clear Normal Clear [facility] Comment on above: Order Comment: Name Collection Type:: Clean-Voided Midstream Performed By: #### U A, UHCG #### [facility] [address] [place] [address] [place] Bilirubin,Urine Negative Normal Negative [facility] Comment on above: Order Comment: Name Collection Type:: Clean-Voided Midstream Performed By: #### U A, UHCG #### [facility] [address] [place] [address] [place] Color (U) Yellow Normal Yellow [facility] Comment on above: Order Comment: Name Collection Type:: Clean-Voided Midstream Performed By: #### U A, UHCG #### [facility] [address] [place] [address] [place] Glucose Ql (U) Normal Normal Normal [facility] Comment on above: Order Comment: Name Collection Type:: Clean-Voided Midstream Performed By: #### U A, UHCG #### [facility] [address] [id number] [place] Ketones Ql (U) Negative Normal Negative [facility] Comment on above: Order Comment: Name Collection Type:: Clean-Voided Midstream Performed By: #### U A, UHCG #### [facility] [address] [id number] [place] Leukocyte esterase Test strip Ql (U) Negative Normal Negative [facility] Comment on above: Order Comment: Name Collection Type:: Clean-Voided Midstream Performed By: #### U A, UHCG #### [facility] [address] [id number] [place] Nitrite,Urine Negative Normal Negative [facility] Comment on above: Order Comment: Name Collection Type:: Clean-Voided Midstream Performed By: #### U A, UHCG #### [place] [address] [place] Occult Blood,Urine Negative Normal Negative [facility] Comment on above: Order Comment: Name Collection Type:: Clean-Voided Midstream Performed By: #### U A, UHCG #### [address] pH (U) 6.5 [pH] Normal 5.0-9.0 [facility] Comment on above: Order Comment: Name Collection Type:: Clean-Voided Midstream Performed By: #### U A, UHCG #### [address] Protein,Urine Negative Normal Negative [facility] Comment on above: Order Comment: Name Collection Type:: Clean-Voided Midstream Performed By: #### U A, UHCG #### [address] Specificy Alpha,Urine 1.006 Normal 1.001-1.03 0 [facility] Comment on above: Order Comment: Name Collection Type:: Clean-Voided Midstream Performed By: #### U A, UHCG #### [address] Urobilinogen,Urine Normal Normal Normal [facility] Comment on above: Order Comment: Name Collection Type:: Clean-Voided Midstream Performed By: #### U A, UHCG #### [address] Urine clarity by refractomet ry automatedOrdered By: Lilian Lewis on 08-04-2021 Clarity Refractometry automated (U) Clear Clear [facility] Urine cocaine detectionOrder ed By: Lilian Lewis on 08-04-2021 Cocaine Ql (U) Negative Negative [facility] Urine glucose measurement by automated test strip (mass/volume)Ordered By: Lilian Lewis on 08-04-2021 Glucose Auto test strip (U) [Mass/Vol] Normal mg/dL Normal [facility] Urine hemoglobin detection b y automated test stripOrdered By: Lilian Lewis on 08-04-2021 Hemoglobin Auto test strip Ql (U) Negative Negative [facility] Urine leukocyte esterase det ection by automated test stripOrdered By: Lilian Lewis on 08-04-2021 Leukocyte esterase Auto test strip Ql (U) Negative Negative [facility] Urobilinogen Auto test strip (U) [Mass/Vol]Ordered By: Lilian Lewis on 08-04-2021 Urobilinogen (U) [Mass/Vol] Normal mg/dL Normal [facility] pH Auto test strip (U)Ordere d By: Lilian Lewis on 08-04-2021 pH (U) 6.5 [pH] 5.0-9.0 [facility] CBC AUTO DIFFon 08-03-2021 BASO # 0.0 103/ul Normal 0.0-0.1 [facility] Comment on above: Performed By: #### C BC #### [facility] [address] [place] [address] Dr. Marlyn Olivo Basophils/100 WBC (Bld) 0.3 % Normal 0.2-2.0 [facility] Comment on above: Performed By: #### C BC #### [facility] [address] [place] [address] Dr. Marlyn Olivo EO # 0.0 103/ul Normal 0.0-0.7 [facility] Comment on above: Performed By: #### C BC #### [facility] [address] [place] [address] Dr. Marlyn Olivo Eosinophils/100 WBC (Bld) 0.4 % Critically low 0.9-7.0 [facility] Comment on above: Performed By: #### C BC #### [facility] [address] [place] [address] Dr. Marlyn Olivo Erythrocyte distribution width (RBC) [Ratio] 12.3 % Normal 11.0-15.0 [facility] Comment on above: Performed By: #### C BC #### [facility] [address] [place] [address] Dr. Marlyn Olivo Hematocrit (Bld) [Volume fraction] 40.1 % Normal 36.0-48.0 [facility] Comment on above: Performed By: #### C BC #### [facility] [address] [place] [address] Dr. Marlyn Olivo Hemoglobin (Bld) [Mass/Vol] 13.3 g/dL Normal 12.0-16.0 [facility] Comment on above: Performed By: #### C BC #### [facility] [address] [place] [address] Dr. Marlyn Olivo IG # 0.12 10e3/ul Critically high 0.00-0.03 [facility] Comment on above: Performed By: #### C BC #### [facility] [address] [place] [address] Dr. Marlyn Olivo IG % 1.3 % Critically high 0.0-0.5 [facility] Comment on above: Performed By: #### C BC #### [facility] [address] [place] [address] Dr. Marlyn Olivo LYMPH # 2.0 103/ul Normal 1.2-3.8 [facility] Comment on above: Performed By: #### C BC #### [facility] [address] [place] [address] Dr. Marlyn Olivo Lymphocytes/100 WBC (Bld) 20.5 % Normal 20.5-60.0 [facility] Comment on above: Performed By: #### C BC #### [facility] [address] [place] [address] Dr. Marlyn Olivo MANUAL DIFF REQ NO Normal [facility] Comment on above: Performed By: #### C BC #### [facility] [address] [place] [address] Dr. Marlyn Olivo MCH (RBC) [Entitic mass] 30.9 pg Normal 26.7-34.0 [facility] Comment on above: Performed By: #### C BC #### [facility] [address] [place] [address] Dr. Marlyn Olivo MCHC (RBC) [Mass/Vol] 33.2 g/dL Normal 29.9-35.2 [facility] Comment on above: Performed By: #### C BC #### [facility] [address] [place] [address] Dr. Marlyn Olivo MCV (RBC) [Entitic vol] 93.0 fL Normal 81.0-99.0 [facility] Comment on above: Performed By: #### C BC #### [facility] [address] [place] [address] Dr. Marlyn Olivo MONO # 0.6 103/ul Normal 0.3-0.8 [facility] Comment on above: Performed By: #### C BC #### [facility] [address] [place] [address] Dr. Marlyn Olivo Monocytes/100 WBC (Bld) 6.5 % Normal 1.7-12.0 [facility] Comment on above: Performed By: #### C BC #### [facility] [address] [place] [address] Dr. Marlyn Olivo NEUT # 6.8 103/ul Critically high 1.4-6.5 [facility] Comment on above: Performed By: #### C BC #### [facility] [address] [place] [address] Dr. Marlyn Olivo Neutrophils/100 WBC (Bld) 71.0 % Normal 43.0-75.0 [facility] Comment on above: Performed By: #### C BC #### [facility] [address] [place] [address] Dr. Marlyn Olivo Platelet mean volume (Bld) [Entitic vol] 9.4 fL Critically low 9.5-13.5 [facility] Comment on above: Performed By: #### C BC #### [facility] [address] [place] [address] Dr. Marlyn Olivo PLT 275 103/ul Normal 150-450 [facility] Comment on above: Performed By: #### C BC #### [facility] [address] [place] [address] Dr. Marlyn Olivo RBC 4.31 106/ul Normal 4.20-5.40 [facility] Comment on above: Performed By: #### C BC #### [facility] [address] [address] [address] Marlyn Olivo WBC 9.6 103/ul Normal 4.0-11.0 [facility] Comment on above: Performed By: #### C BC #### [facility] [address] [address] [address] Marlyn Olivo CRPon 08-03-2021 CRP [Mass/Vol] mg/L Normal <=1.0 [facility] Comment on above: Performed By: #### C MP, CRP, TSH #### [facility] [address] [address] HEAD WO CONon 08-03-2021 CT HEAD WO CON EXAMINATION: CT HEAD WO CON HISTORY: Asthenia COMPARISON: None. TECHNIQUE: CT examination of the head without IV contrast. Sagittal and coronal reconstructions were obtained. Dose reduction techniques were achieved by using automated exposure control and/or adjustment of mA and/or kV according to patient size and/or use of iterative reconstruction technique. FINDINGS: The ventricles are not enlarged, the lateral ventricles are symmetric and the third ventricles in the midline. The sylvian fissures and cortical sulci are unremarkable. There is no evidence of an intracranial hemorrhage, mass lesion or apparent acute infarct. Benign calcifications are seen in the choroid plexus and pineal complex. The cerebellum and visualized brainstem are intact. The visualized paranasal sinuses are clear. There is no apparent skull fracture. IMPRESSION: There is no evidence of an intracranial hemorrhage, mass lesion or apparent acute infarct. The paranasal sinuses are clear as visualized. Direct comparison with a previous study is recommended to verify stability of these findings. Electronically authenticated by: EUGENE GAGNON Date: 2021-08-03 19:40 Normal [facility]20 SARS-CoV-2 (COVID-19) RNA JEAN+probe Ql (Unsp spec) Not detected Normal NOT DETECTED [facility] Comment on above: Result Comment: When diagnostic testing is negative, the possibility of a false negative should be considered in the context of a patient's recent exposures and the presence of clinical signs and symptoms consistent with SARS-CoV-2. This test is not yet approved or cleared by the [place] FDA. When there are no FDA-approved or cleared tests available, and other criteria are met, FDA can make tests available under an emergency access mechanism called an Emergency Use Authorization (EUA). The EUA for this test is supported by the Combination Welder of Health and Human Service's declaration that circumstances exist to justify the emergency use of in vitro diagnostics for the detection and/or diagnosis of the virus that causes COVID-19. This EUA will remain in effect for the duration of the COVID-19 declaration justifying emergency of IVDs, unless it is terminated or revoked by the FDA (after which the test may no longer be used). Performed By: #### C VDTB #### [facility] [address] [place] [address] Dr. Marlyn Olivo ER URINE PROFILEon 2 Clarity (U) CLEAR Normal CLEAR [facility] Comment on above: Performed By: #### E RUR #### [facility] [address] [place] [address] Dr. Marlyn Olivo Color (U) LT. YELLOW Normal YELLOW [facility] Comment on above: Performed By: #### E RUR #### [facility] [address] [place] [address] Dr. Marlyn ROUSE A micrscopic examina tion will be performed if indicated. Normal [facility] Comment on above: Performed By: #### E RUR #### [facility] [address] [place] [address] Dr. Marlyn Olivo Glucose Ql (U) Negative Normal NEGATIVE [facility] Comment on above: Performed By: #### E RUR #### [facility] [address] [place] [address] Dr. Marlyn Olivo Hemoglobin Ql (U) Negative Normal NEGATIVE [facility] Comment on above: Performed By: #### E RUR #### [facility] [address] [place] [address] Dr. Marlyn Olivo Ketones Ql (U) Negative Normal NEGATIVE [facility] Comment on above: Performed By: #### E RUR #### [facility] [address] [address] [address] Marlyn Olivo LEUKOCYTES Negative Normal NEGATIVE [facility] Comment on above: Performed By: #### E RUR #### [facility] [address] [address] [address] Marlyn Olivo Nitrite Ql (U) Negative Normal NEGATIVE [facility] Comment on above: Performed By: #### E RUR #### [facility] [address] [address] [address] Marlyn Olivo pH (U) 6.5 [pH] Normal 5-9 [facility] Comment on above: Performed By: #### E RUR #### [facility] [address] [place] [address] Dr. Marlyn Olivo SPEC GRAVITY 1.015 Normal 1.005-<=1. 025 [facility] Comment on above: Performed By: #### E RUR #### [facility] [address] [place] [address] Dr. Marlyn Olivo UA PROTEIN Negative Normal NEGATIVE/ TRACE [facility] Comment on above: Performed By: #### E RUR #### [facility] [address] [place] [address] Dr. Marlyn Olivo UR MICRO IND NOT INDICATED Normal [facility] Comment on above: Performed By: #### E RUR #### [facility] [address] [place] [address] Dr. Marlyn Olivo Urobilinogen Qn (U) 0.2 {Anatoliy'U}/dL Normal 0.2 - 1. 0 [facility] Comment on above: Performed By: #### E RUR #### [facility] [address] [place] [address] Dr. Marlyn Olivo LACTATE/LACTIC ACIDon 2021 Lactate [Moles/Vol] 1.8 mmol/L Normal 0.4-1.9 [facility] Comment on above: Performed By: #### L ACT ####[facility] [address] [address] Marlyn Olivo PREG HCG QUALon 08-03-2021 , QUAL Negative Normal NEGATIVE [facility] Comment on above: Performed By: #### P REG #### [facility] [address] [place] [address] Dr. Marlyn Olivo PROF 14(COMP METB)on 022 Albumin [Mass/Vol] 4.0 g/dL Normal 3.4-5.0 [facility] Comment on above: Performed By: #### C MP, CRP, TSH #### [facility] [address] [place] [address] Dr. Marlyn Olivo Albumin/Globulin [Mass ratio] 1.1 {ratio} Normal [facility] Comment on above: Performed By: #### C MP, CRP, TSH #### [facility] [address] [place] [address] Dr. Marlyn Olivo ALP [Catalytic activity/Vol] 82 U/L Normal 46-116 [facility] Comment on above: Performed By: #### C MP, CRP, TSH #### [facility] [address] [place] [address] Dr. Marlyn Olivo ALT [Catalytic activity/Vol] 32 U/L Normal 14-59 [facility] Comment on above: Performed By: #### C MP, CRP, TSH #### [facility] [address] [place] [address] Dr. Marlyn Olivo Anion gap [Moles/Vol] 16.5 mmol/L Normal [facility] Comment on above: Performed By: #### C MP, CRP, TSH #### [facility] [address] [place] [address] Dr. Marlyn Olivo AST [Catalytic activity/Vol] 23 U/L Normal 15-37 [facility] Comment on above: Performed By: #### C MP, CRP, TSH #### [facility] [address] [place] [address] Dr. Marlyn Olivo Bilirubin [Mass/Vol] 0.3 mg/dL Normal 0.2-1.0 [facility] Comment on above: Performed By: #### C MP, CRP, TSH #### [facility] [address] [address] [address] Marlyn Olivo Calcium [Mass/Vol] 9.9 mg/dL Normal 8.5-10.1 [facility] Comment on above: Performed By: #### C MP, CRP, TSH #### [facility] [address] [address] [address] Marlyn Olivo Chloride [Moles/Vol] 103 mmol/L Normal 98-107 [facility] Comment on above: Performed By: #### C MP, CRP, TSH #### [facility] [address] [place] [address] Dr. Marlyn Olivo CO2 [Moles/Vol] 25.9 mmol/L Normal 21.0-32.0 [facility] Comment on above: Performed By: #### C MP, CRP, TSH #### [facility] [address] [place] [address] Dr. Marlyn Olivo Creatinine [Mass/Vol] 1.58 mg/dL Critically high 0.55-1.02 [facility] Comment on above: Performed By: #### C MP, CRP, TSH #### [facility] [address] [place] [address] Dr. Marlyn Olivo EGFR-AF CITIZEN [place] 45 mL/min/1.73m2 Critically low >=60 [facility] Comment on above: Performed By: #### C MP, CRP, TSH #### [facility] [address] [place] [address] Dr. Marlyn Olivo EGFR-NON AF CITIZEN OF [place] 37 mL/min/1.73m2 Critically low >=60 [facility] Comment on above: Performed By: #### C MP, CRP, TSH #### [facility] [address] [place] [address] Dr. Marlyn Olivo Globulin (S) [Mass/Vol] 3.8 g/dL Normal [facility] Comment on above: Performed By: #### C MP, CRP, TSH #### [facility] [address] [place] [address] Dr. Marlyn Olivo Glucose [Mass/Vol] 102 mg/dL Normal 74-106 [facility] Comment on above: Performed By: #### C MP, CRP, TSH #### [facility] [address] [place] [address] Dr. Marlyn Olivo Potassium [Moles/Vol] 4.4 mmol/L Normal 3.5-5.1 [facility] Comment on above: Performed By: #### C MP, CRP, TSH #### [facility] [address] [place] [address] Dr. Marlyn Olivo Protein [Mass/Vol] 7.8 g/dL Normal 6.4-8.2 [facility] Comment on above: Performed By: #### C MP, CRP, TSH #### [facility] [address] [place] [address] Dr. Marlyn Olivo Sodium [Moles/Vol] 141 mmol/L Normal 136-145 [facility] Comment on above: Performed By: #### C MP, CRP, TSH #### [facility] [address] [place] [address] Dr. Marlyn Olivo Urea nitrogen [Mass/Vol] 23.0 mg/dL Critically high 7.0-18.0 [facility] Comment on above: Performed By: #### C MP, CRP, TSH #### [facility] [address] [place] [address] Dr. Marlyn Olivo Urea nitrogen/Creatinine [Mass ratio] 14.6 mg/mg Normal [facility] Comment on above: Performed By: #### C MP, CRP, TSH #### [facility] [address] [place] [address] Dr. Marlyn Olivo PROTIMEon 08-03-2021 INR Coag (PPP) [Relative time] 0.93 {INR} Normal [facility] Comment on above: Performed By: #### P T, PTT #### [facility] [address] [place] [address] Dr. Marlyn Olivo INR GUIDELINES SEE BELOW Normal [facility] Comment on above: Result Comment: ROMULO RED INR: 2.0 - 3.0 CONDITIONS NOT LISTED BELOW 2.5 - 3.5 FOR PROSTHETIC HEART VALVE REPLACEMENT 2.5 - 3.5 RECURRENT THROMBOSIS Performed By: #### P T, PTT #### [facility] [address] [address] [address] Marlyn Olivo PT Coag (PPP) [Time] 10.1 s Normal 9.0-11.6 [facility] Comment on above: Performed By: #### P T, PTT #### [facility] [address] [address] [address] Marlyn Olivo PTTon 08-03-2021 aPTT Coag (Bld) [Time] 21.9 s Critically low 22.3-36.2 [facility] Comment on above: Performed By: #### P T, PTT ####[facility] [id number] [address]Dr. Marly[facility]ivo [facility] 8 mm/hr Normal <=20 [facility] Comment on above: Performed By: #### S EDR ####[facility] [id number] [address]Dr. Marlyn Olivo TSHon 08-03-2021 TSH 2.003 uIU/mL Normal 0.358-3.74 0 [facility] Comment on above: Performed By: #### C MP, CRP, TSH #### [facility] [address] [place] [address] Dr. Marlyn Olivo XR CHEST 2 Von 08-03-2021 XR CHEST 2 V EXAMINATION: XR CHES T 2 V HISTORY: Weakness COMPARISON: None. TECHNIQUE: PA and lateral chest x-rays FINDINGS: The lung parenchyma is free of consolidation or infiltrate. No pneumothorax or pleural effusion. The cardiac, mediastinal and hilar contours are normal. The visualized osseous structures exhibit no gross abnormality. IMPRESSION: Normal PA and lateral chest x-rays Electronically authenticated by: TOM BUSTOS Date: 2021-08-03 19:37 Normal [facility] COVID Quick Testingon 2020 Result Negative [facility] [place] Other No Panel Information [facility] Vital Signs Date Time Vital Sign Value Performing Clinician Faci lity 12-06-2022 12:45-0400 Body temperature 98.4 [degF] Becka Grubic DO Work Phone: [facility] 12-06-2022 12:45-0400 Diastolic blood pressure 77 mm[Hg] Becka Wyattubic DO Work Phone: [facility] 12-06-2022 12:45-0400 Heart rate 67 /min Becka Wyattubic DO Work Phone: [facility] 12-06-2022 12:45-0400 Respiratory rate 20 /min Becka Wyattubic DO Work Phone: [facility] 12-06-2022 12:45-0400 SaO2% (BldA) [Mass fraction] 99 % Becka Wyattubic DO Work Phone: [facility] 12-06-2022 12:45-0400 Systolic blood pressure 107 mm[Hg] Becka Wyattubic DO Work Phone: [facility] 12-06-2022 08:46-0400 Body height 154.9 cm Becka Wyattubic DO Work Phone: [facility] 12-06-2022 08:46-0400 Body weight 70.31 kg Becka Wyattubic DO Work Phone: [facility] 11-22-2022 14:49-0400 Body height 152.4 cm [facility] 2 [facility] 11-22-2022 14:49-0400 Body weight 71.22 kg [facility] 2 [facility] 10-18-2022 12:00-0400 Diastolic blood pressure 72 mm[Hg] Bernarda Hernandez PT Work Phone: [facility] 10-18-2022 12:00-0400 Heart rate 64 /min Bernarda Hernandez PT Work Phone: [facility] 10-18-2022 12:00-0400 SaO2% (BldA) [Mass fraction] 97 % Bernarda Hernandez PT Work Phone: [facility] 10-18-2022 12:00-0400 Systolic blood pressure 108 mm[Hg] Bernarda Hernandez PT Work Phone: [facility] 10-16-2022 09:43-0400 Body height 154.1 cm Arsh Kiser MD, PhD Work Phone: [facility] 10-16-2022 09:43-0400 Body weight 70.35 kg Arsh Kiser MD, PhD Work Phone: [facility] 10-16-2022 09:43-0400 Diastolic blood pressure 85 mm[Hg] Arsh Kiser MD, PhD Work Phone: [facility] 10-16-2022 09:43-0400 Heart rate 74 /min Arsh Kiser MD, PhD Work Phone: [facility] 10-16-2022 09:43-0400 Systolic blood pressure 125 mm[Hg] Arsh Kiser MD, PhD Work Phone: [facility] 08-10-2022 08:35-0400 Body height 154.9 cm Bebeto Perry MD Work Phone: [facility] 08-10-2022 08:35-0400 Body weight 63.5 kg Bebeto Perry MD Work Phone: [facility] 08-10-2022 08:35-0400 Diastolic blood pressure 58 mm[Hg] Bebeto Perry MD Work Phone: [facility] 08-10-2022 08:35-0400 Heart rate 81 /min Bebeto Perry MD Work Phone: [facility] 08-10-2022 08:35-0400 Systolic blood pressure 95 mm[Hg] Bebeto Perry MD Work Phone: [facility] 07-25-2022 15:54-0400 Blood Pressure Location Lizy [facility] 07-25-2022 15:54-0400 Body temperature 98.42 [degF] Lizy SOR[facility] 07-25-2022 15:54-0400 Diastolic blood pressure 62 mm[Hg] Lizy SORIA [facility] 07-25-2022 15:54-0400 Heart rate 72 /min Lizy SOR[facility] 07-25-2022 15:54-0400 SaO2% (BldA) [Mass fraction] 99 % Lizy SORIA [facility] 07-25-2022 15:54-0400 Systolic blood pressure 100 mm[Hg] Lizy SOR[facility] 07-03-2022 08:13-0400 Body height 154.9 cm Kim Rogers MD Work Phone: [facility] 07-03-2022 08:13-0400 Body weight 63.96 kg Kim Rogers MD Work Phone: [facility] 07-03-2022 08:13-0400 Diastolic blood pressure 72 mm[Hg] Kim Rogers MD Work Phone: [facility] 07-03-2022 08:13-0400 Heart rate 71 /min Kim Rogers MD Work Phone: [facility] 07-03-2022 08:13-0400 SaO2% (BldA) [Mass fraction] 99 % Kim Rogers MD Work Phone: [facility] 07-03-2022 08:13-0400 Systolic blood pressure 106 mm[Hg] Kim Rogers MD Work Phone: [facility] 06-27-2022 15:59-0400 Body height 154.9 cm Saroj Foss 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 Work Phone: [facility] 06-27-2022 15:59-0400 Body temperature 98.1 [degF] Saroj Foss APRN.MANAGER TRADING Work Phone: [facility] 06-27-2022 15:59-0400 Body weight 63.96 kg Saroj Foss 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 Work Phone: [facility] 06-27-2022 15:59-0400 Diastolic blood pressure 76 mm[Hg] Saroj Foss 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 Work Phone: [facility] 06-27-2022 15:59-0400 Heart rate 68 /min Saroj Foss 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 Work Phone: [facility] 06-27-2022 15:59-0400 Respiratory rate 16 /min Saroj Foss 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 Work Phone: [facility] 06-27-2022 15:59-0400 SaO2% (BldA) [Mass fraction] 99 % Saroj Foss 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 Work Phone: [facility] 06-27-2022 15:59-0400 Systolic blood pressure 124 mm[Hg] Saroj Foss 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 Work Phone: [facility] 04-17-2022 15:49-0500 Blood Pressure Location Lizy S[facility] 04-17-2022 15:49-0500 Body temperature 97.52 [degF] Lizy SOR[facility] 04-17-2022 15:49-0500 Diastolic blood pressure 64 mm[Hg] Lizy SOR[facility] 04-17-2022 15:49-0500 Heart rate 90 /min Lizy SOR[facility] 04-17-2022 15:49-0500 SaO2% (BldA) [Mass fraction] 98 % Lizy SOR[facility] 04-17-2022 15:49-0500 Systolic blood pressure 102 mm[Hg] Lizy S[facility] 04-13-2022 09:18-0500 Body height 154.9 cm Becka Rubi DO Work Phone: [facility] 04-13-2022 09:18-0500 Body weight 63.96 kg Becka Grubic DO Work Phone: [facility] 04-13-2022 09:18-0500 Diastolic blood pressure 63 mm[Hg] Becka Grubic DO Work Phone: [facility] 04-13-2022 09:18-0500 Heart rate 82 /min Becka Wyattubic DO Work Phone: [facility] 04-13-2022 09:18-0500 Systolic blood pressure 100 mm[Hg] Becka Grubic DO Work Phone: [facility] 04-13-2022 08:58-0500 Body height 154.9 cm Frederic Douglass DO Work Phone: [facility] 04-13-2022 08:58-0500 Body weight 64 kg Frederic Douglass DO Work Phone: [facility] 04-13-2022 08:58-0500 Diastolic blood pressure 63 mm[Hg] Frederic Douglass DO Work Phone: [facility] 04-13-2022 08:58-0500 Heart rate 82 /min Frederic Douglass DO Work Phone: [facility] 04-13-2022 08:58-0500 Systolic blood pressure 100 mm[Hg] Frederic Douglass DO Work Phone: [facility] 03-10-2022 10:52-0500 Body height 154.9 cm Saroj Foss APRN.MANAGER TRADING Work Phone: [facility] 03-10-2022 10:52-0500 Body weight 63.4 kg Saroj Foss 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 Work Phone: [facility] 03-10-2022 10:52-0500 Diastolic blood pressure 65 mm[Hg] Saroj Foss 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 Work Phone: [facility] 03-10-2022 10:52-0500 Heart rate 71 /min Saroj Foss 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 Work Phone: [facility] 03-10-2022 10:52-0500 Respiratory rate 20 /min Saroj Foss 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 Work Phone: [facility] 03-10-2022 10:52-0500 SaO2% (BldA) [Mass fraction] 100 % Saroj Foss 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 Work Phone: [facility] 03-10-2022 10:52-0500 Systolic blood pressure 103 mm[Hg] Saroj Foss 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 Work Phone: [facility] 03-08-2022 14:46-0500 Body temperature 97.59 [degF] Reece Sarmiento MD Work Phone: [facility] 03-08-2022 14:46-0500 Body weight 63.41 kg Reece Sarmiento MD Work Phone: [facility] 03-08-2022 14:46-0500 Diastolic blood pressure 76 mm[Hg] Reece Sarmiento MD Work Phone: [facility] 03-08-2022 14:46-0500 Heart rate 67 /min Reece Sarmiento MD Work Phone: [facility] 03-08-2022 14:46-0500 Respiratory rate 20 /min Reece Sarmiento MD Work Phone: [facility] 03-08-2022 14:46-0500 SaO2% (BldA) [Mass fraction] 97 % Reece Sarmiento MD Work Phone: [facility] 03-08-2022 14:46-0500 Systolic blood pressure 119 mm[Hg] Reece Sarmiento MD Work Phone: [facility] 01-19-2022 09:55-0500 Body height 156.7 cm Reece Sarmiento MD Work Phone: [facility] 01-19-2022 09:55-0500 Body temperature 97.2 [degF] Reece Sarmiento MD Work Phone: [facility] 01-19-2022 09:55-0500 Body weight 58.92 kg Reece Sarmiento MD Work Phone: [facility] 01-19-2022 09:55-0500 Diastolic blood pressure 82 mm[Hg] Reece Sarmiento MD Work Phone: [facility] 01-19-2022 09:55-0500 Heart rate 80 /min Reece Sarmiento MD Work Phone: [facility] 01-19-2022 09:55-0500 Respiratory rate 18 /min Reece Sarmiento MD Work Phone: [facility] 01-19-2022 09:55-0500 SaO2% (BldA) [Mass fraction] 98 % Reece Sarmiento MD Work Phone: [facility] 01-19-2022 09:55-0500 Systolic blood pressure 133 mm[Hg] Reece Sarmiento MD Work Phone: [facility] 01-02-2022 09:25-0500 Blood Pressure Location Clay SALAM [facility] 01-02-2022 09:25-0500 Diastolic blood pressure 68 mm[Hg] Clay SALAM [facility] 01-02-2022 09:25-0500 Heart rate 72 /min Clay SALAM [facility] 01-02-2022 09:25-0500 Respiratory rate 16 /min Clay SALAM [facility] 01-02-2022 09:25-0500 SaO2% (BldA) [Mass fraction] 99 % Clay SALAM [facility] 01-02-2022 09:25-0500 Systolic blood pressure 102 mm[Hg] Clay SALAM [facility] 01-02-2022 09:16-0500 Blood Pressure Location Clay SALAM [facility] 01-02-2022 09:16-0500 Diastolic blood pressure 75 mm[Hg] Clay SALAM [facility] 01-02-2022 09:16-0500 Heart rate 71 /min Clay SALAM [facility] 01-02-2022 09:16-0500 Respiratory rate 15 /min Clay SALAM [facility] 01-02-2022 09:16-0500 SaO2% (BldA) [Mass fraction] 100 % Clya SALAM [facility] 01-02-2022 09:16-0500 Systolic blood pressure 104 mm[Hg] Clay SALAM [facility] 01-02-2022 09:10-0500 Blood Pressure Location Clay SALAM [facility] 01-02-2022 09:10-0500 Diastolic blood pressure 78 mm[Hg] Clay SALAM [facility] 01-02-2022 09:10-0500 Heart rate 69 /min Clay SALAM [facility] 01-02-2022 09:10-0500 Respiratory rate 9 /min Clay SALAM [facility] 01-02-2022 09:10-0500 SaO2% (BldA) [Mass fraction] 100 % Clay SALAM [facility] 01-02-2022 09:10-0500 Systolic blood pressure 105 mm[Hg] Clay SALAM [facility] 01-02-2022 09:00-0500 Body temperature 96.8 [degF] Clay SALAM [facility] 01-02-2022 08:55-0500 Respiratory rate 16 /min Clay SALAM [facility] 01-02-2022 08:50-0500 Respiratory rate 17 /min Clay SALAM [facility] 01-02-2022 08:00-0500 Body temperature 98.96 [degF] Clay SALAM [facility] 12-29-2021 12:46-0500 Blood Pressure Location Alexiakorey RameshMiky [facility] 12-29-2021 12:46-0500 Body temperature 97.34 [degF] Alexia Rameshmetz [facility] 12-29-2021 12:46-0500 Diastolic blood pressure 72 mm[Hg] Alexia Rameshmetz [facility] 12-29-2021 12:46-0500 Heart rate 83 /min Alexia Rameshmetz [facility] 12-29-2021 12:46-0500 Systolic blood pressure 102 mm[Hg] Alexia Ramehsmetz [facility] 11-29-2021 09:38-0400 Body height 154.9 cm Chito Noyola MD Work Phone: [facility] 11-29-2021 09:38-0400 Body weight 59.42 kg Chito Noyola MD Work Phone: [facility] 11-29-2021 09:38-0400 Diastolic blood pressure 67 mm[Hg] Chito Noyola MD Work Phone: [facility] 11-29-2021 09:38-0400 Heart rate 68 /min Chito Noyola MD Work Phone: [facility] 11-29-2021 09:38-0400 Respiratory rate 14 /min Chito Noyola MD Work Phone: [facility] 11-29-2021 09:38-0400 SaO2% (BldA) [Mass fraction] 99 % Chito Noyola MD Work Phone: [facility] 11-29-2021 09:38-0400 Systolic blood pressure 112 mm[Hg] Chito Noyola MD Work Phone: [facility] 11-23-2021 11:26-0400 Body height 154.9 cm Saroj Foss 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 Work Phone: [facility] 11-23-2021 11:26-0400 Body weight 56.7 kg Saroj Foss 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 Work Phone: [facility] 11-23-2021 11:26-0400 Diastolic blood pressure 88 mm[Hg] Saroj Haskinsberman 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 Work Phone: [facility] 11-23-2021 11:26-0400 Heart rate 78 /min Saroj Foss 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 Work Phone: [facility] 11-23-2021 11:26-0400 SaO2% (BldA) [Mass fraction] 99 % Saroj Haskinsberman 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 Work Phone: [facility] 11-23-2021 11:26-0400 Systolic blood pressure 125 mm[Hg] Saroj Foss 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 Work Phone: [facility] 09-20-2021 08:58-0400 Body height 154.9 cm Sraoj Foss 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 Work Phone: [facility] 09-20-2021 08:58-0400 Body weight 58.97 kg Saroj Foss 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 Work Phone: [facility] 09-20-2021 08:58-0400 Diastolic blood pressure 80 mm[Hg] Saroj Frances 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 Work Phone: [facility] 09-20-2021 08:58-0400 Heart rate 66 /min Saroj Haskinsberman 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 Work Phone: [facility] 09-20-2021 08:58-0400 Systolic blood pressure 133 mm[Hg] Saroj Foss 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 Work Phone: [facility] 08-04-2021 14:11-0400 Diastolic blood pressure 83 mm[Hg] DO Lizy Soria Work Phone: [facility] 08-04-2021 14:11-0400 Heart rate 74 /min DO Lizy Soria Work Phone: [facility] 08-04-2021 14:11-0400 Respiratory rate 18 /min DO Lizy Soria Work Phone: [facility] 08-04-2021 14:11-0400 SaO2% (BldA) [Mass fraction] 97 % DO Lizy Soria Work Phone: [facility] 08-04-2021 14:11-0400 Systolic blood pressure 119 mm[Hg] DO Lizy Soria Work Phone: [facility] 08-04-2021 12:16-0400 Body height 154.94 cm DO Lizy Soria Work Phone: [facility] 08-04-2021 12:16-0400 Body mass index (BMI) [Ratio] 23.6 kg/m2 DO Lizy Soria Work Phone: [facility] 08-04-2021 12:16-0400 Body temperature 98.1 [degF] DO Lizy Soria Work Phone: [facility] 08-04-2021 12:16-0400 Body weight 56.69 kg DO Lizy Soria Work Phone: [facility] 07-25-2021 16:16-0400 Blood Pressure Location Lizy SORIA [facility] [place] 07-25-2021 16:16-0400 Body temperature 97.16 [degF] Lizy [facility] 07-25-2021 16:16-0400 Diastolic blood pressure 72 mm[Hg] Lizy SORIA [facility] 07-25-2021 16:16-0400 Heart rate 79 /min Lizy SORIA [facility] 07-25-2021 16:16-0400 SaO2% (BldA) [Mass fraction] 99 % Lizy SORIA [facility] 07-25-2021 16:16-0400 Systolic blood pressure 104 mm[Hg] Lizy [facility] Encounters Encounter Date Encounter Type Care Provider Facility Start: 03-07-2023 End: 03-07-2023 ambulatory JENNY EBONICHEVY Facility:[facility] Start: 02-22-2023 End: 02-22-2023 ambulatory [facility] Start: 02-08-2023 End: 02-09-2023 ambulatory LIZY [facility] Start: 01-23-2023 End: 01-23-2023 ambulatory Jenny South DANDY OPERATOR.MORTGAGE OPERATIONS MANAGER Work Phone: Allergy Comment on above: CVID (common variabl e immunodeficiency) (HCC) (Primary Dx); Recurrent infections; Positive MUMTAZ antibody Start: 01-23-2023 End: 01-23-2023 Telemedicine consultation with patient Jenny South DANDY OPERATOR.MORTGAGE OPERATIONS MANAGER Work Phone: [facility] Start: 01-22-2023 End: 01-22-2023 [facility] Antoine Costa MD Work Phone: Psychiatry Comment on above: PTSD (post-traumatic stress disorder) (Primary Dx); Generalized anxiety disorder; Episodic mood disorder (HCC); Functional neurological symptom disorder with mixed symptoms Start: 01-04-2023 End: 01-04-2023 [facility] Moreno Fernandez PSYD Work Phone: Neurological [facility] Comment on above: MDD (major depressiv e disorder), recurrent episode, moderate (HCC) (Primary Dx); Trauma and stressor-related disorder; Functional neurological symptom disorder with weakness or paralysis Start: 12-13-2022 End: 12-13-2022 ambulatory LIZY SORIA Facility:[facility] Start: 12-06-2022 ambulatory BECKA RUBI Facilit y:[facility] Start: 12-06-2022 End: 12-06-2022 Subsequent hospital visit by physician Becka Rubi DO Work Phone: [facility] Comment on above: Gastroparesis [K31.8 4] Start: 12-01-2022 ambulatory Becka busch DO Work Phone: General Surgery Comment on above: POP Procedure Start: 12-01-2022 E-mail encounter fro m caregiver Becka Rubi DO Work Phone: [facility] Start: 11-22-2022 End: 11-22-2022 ambulatory BECKA RUBI Facility:[facility] Start: 11-22-2022 End: 11-22-2022 [facility] [place] 1 Virtual 2 Pre Anesthesia Comment on above: Preoperative examina tion (Primary Dx); Gastroparesis; POTS (postural orthostatic tachycardia syndrome); Former smoker; Gastroesophageal reflux disease, unspecified whether esophagitis present; Stage 2 chronic kidney disease; CVID (common variable immunodeficiency) (HCC); History of colectomy; Anxiety; Depression, unspecified depression type; PTSD (post-traumatic stress disorder) Start: 11-22-2022 End: 11-22-2022 Preprocedural examination done Pac 2 [facility] Work Phone: Start: 11-21-2022 End: 11-21-2022 ambulatory LIZY SORIA Facility:[facility] Start: 11-16-2022 End: 11-16-2022 ambulatory BECKA RUBI Facility:[facility] Start: 11-09-2022 ambulatory [facility] Clin e DO Work Phone: Gastroenterology Comment on above: Smart pill Start: 2022 End: 2022 [facility] Saroj Foss 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 Work Phone: Neurology Comment on above: Orthostatic lighthea dedness (Primary Dx); Functional neurological symptom disorder with weakness or paralysis; Hypotension, unspecified hypotension type Start: 10-27-2022 Telephone encounter Arsh villatoro MD, PhD Work Phone: Allergy Comment on above: Faxed Clinical Notes ([facility] ) Start: 10-25-2022 Telephone encounter Arsh villatoro MD, PhD Work Phone: Allergy Comment on above: Faxed Prescription ( [facility] ) Start: 10-20-2022 Telephone encounter Arsh villatoro MD, PhD Work Phone: Allergy Comment on above: Faxed Prescription ( [facility] ) Start: 10-19-2022 E-mail encounter fro m caregiver Bernarda Hernandez PT Work Phone: [facility] Start: 10-19-2022 Follow-up encounter Bernarda newell PT Work Phone: [facility] Physical Therapy Comment on above: Follow up after PT v isit Cognitive communicat ion disorder (Primary Dx) Start: 10-18-2022 End: 10-19-2022 [facility] LIZY SORIA Facility:[facility] Start: 10-18-2022 End: 10-18-2022 [facility] LIZY SORIA Facility:[facility] Start: 10-18-2022 End: 10-18-2022 Office outpatient visit 40 minutes Muna Lackey MD Work Phone: Neurological [facility] Comment on above: Functional neurologi vinnie symptom disorder with weakness or paralysis Start: 10-18-2022 End: 10-18-2022 OT/PT/Speech Visit Bernarda Hernandez PT Work Phone: [facility] Physical Therapy Comment on above: Functional neurologi vinnie symptom disorder with weakness or paralysis; Gait instability Start: 10-18-2022 End: 10-18-2022 OT/PT/Speech Visit Saroj Booker [facility] Work Phone: [facility] Speech [facility] Comment on above: Cognitive communicat ion deficit (Primary Dx); Functional neurological symptom disorder with weakness or paralysis; Other speech disturbance Functional neurologi vinnie symptom disorder with weakness or paralysis; Incoordination of extremity MDD (major depressiv e disorder), recurrent episode, moderate (HCC) (Primary Dx); Trauma and stressor-related disorder; Functional neurological symptom disorder with weakness or paralysis Start: 10-16-2022 End: 10-16-2022 ambulatory Lizy SORIA Facility: [facility] Comment on above: Question regarding C BC + DIFF Start: 10-16-2022 End: 10-17-2022 ambulatory ARSH KISER Facility:[facility] Start: 10-16-2022 End: 10-16-2022 Patient encounter procedure Arsh Kiser MD, PhD Work Phone: Rheumatology Comment on above: CVID (common variabl e immunodeficiency) (HCC) (Primary Dx); Recurrent infections; Other fatigue; Stiff person syndrome Start: 10-05-2022 End: 10-06-2022 ambulatory Frederic Douglass DO Work Phone: General Surgery Start: 10-05-2022 Chart abstracting Megan Ma RN Ga stroenterology Start: 09-25-2022 End: 09-25-2022 ambulatory Megan Ma RNsearch marketing coordinator Start: 09-25-2022 Patient encounter procedure Megan Ma RN [facility] Start: 09-25-2022 End: 09-25-2022 Subsequent hospital visit by physician Capsule Work Phone: Gastroenterology Comment on above: Gastroparesis [K31.8 4] Start: 09-21-2022 ambulatory Obed MASON Facility:[facility] Start: 09-14-2022 Telephone encounter Megan Ma RNsearch marketing coordinator Comment on above: Preparations For Pro cedures Start: 09-05-2022 End: 09-05-2022 ambulatory LIZY SORIA Facility:[facility] Start: 09-05-2022 End: 09-05-2022 [facility] Courtney Randhawa PA-C Work Phone: Neurology Comment on above: Functional movement disorder (Primary Dx); Seizure-like activity (HCC) Start: 08-24-2022 Chart abstracting Bebeto Perry MD Work Phone: [facility] Comment on above: Stiff Person Spectru m Ab Testing Start: 08-10-2022 End: 08-10-2022 ambulatory LIZY SORIA Facility:[facility] Start: 08-10-2022 End: 08-10-2022 ambulatory LIZY SORIA Facility:[facility] Start: 08-10-2022 End: 08-10-2022 Patient encounter procedure Bebeto Perry MD Work Phone: [facility] Comment on above: Functional neurologi vinnie symptom disorder with weakness or paralysis (Primary Dx); Stiffman syndrome; Incoordination of extremity; Gait instability; Other speech disturbance; Functional movement disorder Start: 07-25-2022 End: 07-25-2022 Patient encounter procedure Lizy SORIA [facility] [place] Start: 07-25-2022 End: 07-26-2022 ambulatory Arsh Kiser MD, PhD Work Phone: Allergy Comment on above: ATTN. Alvarado Start: 07-25-2022 Telephone encounter Arsh villatoro MD, PhD Work Phone: Allergy Comment on above: Patient Update (Accr david ) Start: 07-24-2022 Chart abstracting Jenny Anthony icki DANDY OPERATOR.MORTGAGE OPERATIONS MANAGER Work Phone: Allergy Start: 07-24-2022 Telephone encounter Antoine PARRA Comment on above: Follow Up Phone Call (All clear) Start: 07-21-2022 ambulatory Arsh perez MD, PhD Work Phone: Allergy Comment on above: IVIG Start: 07-16-2022 Orders Only Vesta Brown 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 Work Phone: Endovascular Center Comment on above: Stiffman syndrome (P rimary Dx) Start: 07-14-2022 End: 07-16-2022 Evaluation and management of inpatient ILZY SORIA Facility:[facility] Start: 07-14-2022 End: 07-14-2022 ambulatory LIZY SORIA Facility:[facility] Start: 07-11-2022 Telephone encounter Aakash Alvarado DO Work Phone: Neurology Comment on above: Approval Letter (Ove rnight Brainwave Study (EEG)) Start: 07-03-2022 Chart abstracting Quiana Hendricks MD Work Phone: Neurology Start: 07-03-2022 End: 07-04-2022 ambulatory LIZY SORIA Facility:[facility] Start: 07-03-2022 End: 07-03-2022 Patient encounter procedure Kim Rogers MD Work Phone: Neurology Comment on above: Muscle weakness (Maribel sammi Dx); Proximal leg weakness; Spasm of muscle; Abnormal laboratory test Start: 06-29-2022 Telephone encounter Arsh villatoro MD, PhD Work Phone: Allergy Comment on above: Faxed Clinical Notes / Prescription ([facility]) Start: 06-29-2022 End: 06-30-2022 ambulatory LIZY SORIA Facility:[facility] Start: 06-27-2022 End: 06-27-2022 Patient encounter procedure Saroj Foss APRN.MANAGER TRADING Work Phone: Neurology Comment on above: Proximal leg weaknes s (Primary Dx); MUMTAZ (generalized anxiety disorder); Orthostatic lightheadedness; Spasm of muscle; History of seizure; Abnormal laboratory test Start: 06-27-2022 Chart abstracting Arsh macario MD, PhD Work Phone: Allergy Start: 06-27-2022 End: 06-27-2022 ambulatory ARSH KISER Facility:[facility] Start: 06-27-2022 End: 06-27-2022 ambulatory Arsh Kiser MD, PhD Work Phone: Allergy Comment on above: CVID (common variabl e immunodeficiency) (HCC) (Primary Dx); Enteropathy; Cytopenia Start: 06-27-2022 End: 06-27-2022 Telemedicine consultation with patient Arsh Kiser MD, PhD Work Phone: [facility] Start: 06-19-2022 ambulatory Elayne ([facility] Start: 06-12-2022 Refill Saroj rogers APRN.MANAGER TRADING Work Phone: Neurology Comment on above: Refill Request Start: 06-09-2022 End: 06-09-2022 ambulatory LIZY SORIA Facility:[facility] Start: 06-09-2022 End: 06-09-2022 ambulatory Frederic S Douglass DO Work Phone: Gastroenterology Comment on above: POTS (postural ortho static tachycardia syndrome) (Primary Dx); Gastroparesis; Positive MUMTAZ antibody Start: 06-09-2022 End: 06-09-2022 Telemedicine consultation with patient Frederic Douglass DO Work Phone: [facility] Start: 05-11-2022 Telephone encounter Frederic Douglass DO Work Phone: Gastroenterology Comment on above: Appointment (To disc uss lab results) Start: 04-17-2022 End: 04-18-2022 ambulatory Lizy SORIA Facility:[facility] Start: 04-17-2022 End: 04-17-2022 Patient encounter procedure Lizy SORIA [facility] [place] Start: 04-16-2022 ambulatory Frederic S Clin e DO Work Phone: Gastroenterology Comment on above: Concussion with new GI symptoms Start: 04-13-2022 Refill Saroj rogers APRN.MANAGER TRADING Work Phone: Neurology Comment on above: Refill Request Start: 04-13-2022 End: 04-14-2022 ambulatory FREDERIC S DOUGLASS Facility:[facility] Start: 04-13-2022 End: 04-13-2022 Subsequent hospital visit by physician [facility] Comment on above: History of colectomy [Z90.49] Start: 04-13-2022 End: 04-13-2022 ambulatory NILAM GARCIA Facility:[facility] Start: 04-13-2022 End: 04-13-2022 Patient encounter procedure Frederic Douglass Work Phone: Gastroenterology Comment on above: Gastroparesis (Prima ry Dx); History of colectomy; Chronic idiopathic constipation Gastroparesis (Prima ry Dx); Dysautonomia (HCC) Start: 04-12-2022 Telephone encounter Frederic Douglass DO Work Phone: Gastroenterology Comment on above: Retail Manager - O jamarcus (Gastroparesis clinic: chart review; new patient call - no answer) Start: 04-11-2022 End: 04-13-2022 ambulatory LIZY SORIA Facility:[facility] Start: 04-11-2022 End: 04-11-2022 ambulatory Emg 1000) Work Phone: Neurology Comment on above: EMG Start: 04-11-2022 End: 04-11-2022 Patient encounter procedure Emg 4 Neur Main (Max Weight: 1000) Work Phone: [facility] Start: 03-28-2022 End: 03-28-2022 ambulatory ARSH KISER Facility:[facility] Start: 03-28-2022 End: 03-28-2022 ambulatory Arsh Kiser MD, PhD Work Phone: Allergy Comment on above: CVID (common variabl e immunodeficiency) ([facility]) (Primary Dx); Enteropathy; Cytopenia; Recurrent infections Start: 03-28-2022 End: 03-28-2022 Telemedicine consultation with patient Arsh Kiser MD, PhD Work Phone: [facility] Start: 03-13-2022 Refill Saroj rogers APRN.CNP Work Phone: Neurology Comment on above: Refill Request Start: 03-10-2022 End: 03-11-2022 ambulatory ARSH KISER Facility:[facility] Start: 03-10-2022 End: 03-10-2022 Patient encounter procedure Saroj Foss APRN.MANAGER TRADING Work Phone: Neurology Comment on above: Proximal leg weaknes s (Primary Dx); POTS (postural orthostatic tachycardia syndrome); Tension headache Start: 03-08-2022 End: 03-08-2022 Patient encounter procedure Reece Sarmiento MD Work Phone: [facility] Start: 03-08-2022 End: 03-08-2022 Telephone encounter Arsh Kiser MD, PhD Work Phone: Allergy Comment on above: Medication Authoriza tion ([facility] ) Iron disorder (Prima ry Dx) Start: 03-07-2022 End: 03-07-2022 ambulatory Chito Noyola MD Work Phone: Neurological [facility] Comment on above: Tremulousness (Prima ry Dx) Start: 03-07-2022 End: 03-07-2022 Telemedicine consultation with patient Chito Noyola MD Work Phone: [facility] Start: 03-01-2022 End: 03-01-2022 ambulatory Saroj Foss APRN.MANAGER TRADING Work Phone: Neurology Comment on above: NO SHOW (Primary Dx) Start: 03-01-2022 End: 03-01-2022 Telemedicine consultation with patient Saroj Haskinselda SPENCER.MANAGER TRADING Work Phone: [facility] Start: 02-21-2022 Telephone encounter Arsh villatoro MD, PhD Work Phone: Allergy Comment on above: Prescription Faxed ( [facility] ) Start: 02-17-2022 Orders Only Reece Sarmiento MD Work Phone: Hematology/Oncology Comment on above: Iron disorder (Prima ry Dx) Start: 02-15-2022 Refill Saroj rogers APRN.MANAGER TRADING Work Phone: Neurology Comment on above: Refill Request Start: 02-10-2022 End: 02-10-2022 [facility] Mercedes Swenson DO Work Phone: Neurology Comment on above: Chronic insomnia (Pr imary Dx); Malaise and fatigue; Somnambulism; Somniloquy; Sleep-related movement disorder; Non-rapid eye movement sleep arousal disorder, sleep walking type Start: 02-08-2022 Telephone encounter Lizy Soria DO Work Phone: [address] [place] [address] Comment on above: Follow Up Phone Call (Post Discharge F/U - attempt made. No answer.) Start: 02-01-2022 Telephone encounter Arsh villatoro MD, PhD Work Phone: Allergy Comment on above: Patient Update Start: 01-31-2022 End: 01-31-2022 Evaluation and management of inpatient CHARLY Bajwa SWAPNIL Facility:[facility] Start: 01-31-2022 Telephone encounter Lester russo MD Work Phone: Ambulatory Surgery Comment on above: Appointment Start: 01-30-2022 ambulatory [facility] RT(R) [facility] Radiology Molecular Comment on above: Radiology NM Start: 01-30-2022 Patient encounter procedure [facility] RT(R) [facility] Start: 01-26-2022 End: 01-31-2022 Evaluation and management of inpatient ARSH NAMAN HERNANDEZ Facility: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 ) Start: 01-19-2022 End: 01-19-2022 Visit (SP) Office Reece Sarmiento MD Work Phone: Hematology/Oncology Comment on above: Iron disorder (Prima ry Dx); Acquired hypothyroidism Start: 01-17-2022 Telephone encounter Reece gauthier MD Work Phone: Hematology/Oncology Comment on above: 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 Start: 01-17-2022 End: 01-17-2022 ambulatory Arsh Kiser MD, PhD Work Phone: Allergy Comment on above: CVID (common variabl e immunodeficiency) (HCC) (Primary Dx); Recurrent infections; Enteropathy; Cytopenia Start: 01-17-2022 End: 01-17-2022 Telemedicine consultation with patient Arsh Kiser MD, PhD Work Phone: [facility] Start: 01-11-2022 Chart abstracting Chilo jones MD Work Phone: Hematology/Oncology Start: 01-03-2022 Telephone encounter Arsh villatoro MD, PhD Work Phone: Allergy Comment on above: Prior Authorization ([facility] ) Start: 01-02-2022 End: 01-03-2022 [facility]ulatory [facility] Start: 01-02-2022 End: 01-02-2022 [facility] Start: 12-30-2021 End: 12-31-2021 ambulatory Alexia A Miky [facility] Start: 12-30-2021 End: 12-30-2021 Lab Drop off Alexia Bolaños [facility] Start: 12-29-2021 End: 12-30-2021 ambulatory Alexia A Miky Facility[facility] Start: 12-29-2021 End: 12-29-2021 Patient encounter procedure Alexia Bolaños [facility] Start: 12-22-2021 Telephone encounter Arsh villatoro MD, PhD Work Phone: Allergy Comment on above: Patient Update (Accr david ) Start: 12-06-2021 Telephone encounter Arsh villatoro MD, PhD Work Phone: Allergy Comment on above: Plan of Care ([facility]) Start: 12-02-2021 ambulatory Saroj rogers 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 Work Phone: Neurology Comment on above: Tension headache Start: 11-29-2021 End: 11-29-2021 Patient encounter procedure Chito Noyola MD Work Phone: Neurological [facility] Comment on above: Tremulousness (Prima ry Dx) Start: 11-23-2021 End: 11-23-2021 Patient encounter procedure Saroj Foss 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 Work Phone: Neurology Comment on above: Tremulousness (Prima ry Dx); Subjective weakness; Tachycardia; Subjective cognitive impairment; Chronic fatigue; Sleep walking disorder Start: 11-11-2021 Telephone encounter Arsh villatoro MD, PhD Work Phone: Allergy Comment on above: Patient Update Start: 11-01-2021 End: 11-02-2021 ambulatory Lizy SORIA Facility:[facility] Start: 10-31-2021 End: 10-31-2021 ambulatory Skin Biopsy Work Phone: Neurology Start: 10-31-2021 End: 10-31-2021 Patient encounter procedure Skin Biopsy Work Phone: [facility] Start: 10-28-2021 Telephone encounter Arsh villatoro MD, PhD Work Phone: Allergy Comment on above: Patient Question Start: 10-11-2021 End: 10-11-2021 Subsequent hospital visit by physician [facility] (I-Stat/1.5t) Radiology Comment on above: Demyelinating diseas e of central nervous system (HCC) [G37.9] Start: 10-03-2021 End: 10-03-2021 Patient encounter procedure Kulwant Castillo MD Work Phone: Ophthalmology Comment on above: Other localized visu al field defect, bilateral (Primary Dx); Blurry vision, bilateral; Positional headache Start: 09-20-2021 End: 09-20-2021 Patient encounter procedure Saroj Foss APRN.MANAGER TRADING Work Phone: Neurology Comment on above: Orthostatic lighthea dedness (Primary Dx); Demyelinating disease of central nervous system (HCC); Tachycardia; Disturbance of skin sensation; Hypotension, postural; Tension headache; Blurry vision, bilateral; Chronic fatigue; Tremulousness Start: 08-18-2021 Telephone encounter Arsh villatoro MD, PhD Work Phone: Allergy Comment on above: Prescription Refills ([facility]) Start: 08-17-2021 Telephone encounter Arsh villatoro MD, PhD Work Phone: Allergy Comment on above: Return Provider Call Start: 08-17-2021 End: 08-17-2021 Patient encounter procedure Lizy SORIA [facility] Start: 08-15-2021 ambulatory Arsh perez MD, PhD Work Phone: Allergy Comment on above: Important Start: 08-08-2021 End: 08-08-2021 ambulatory Arsh Kiser MD, PhD Work Phone: Allergy Comment on above: CVID (common variabl e immunodeficiency) (HCC) (Primary Dx); Recurrent infections; Enteropathy Start: 08-08-2021 End: 08-08-2021 Telemedicine consultation with patient Arsh Kiser MD, PhD Work Phone: [facility] Start: 08-04-2021 End: 08-04-2021 Emergency department patient visit DO Lizy oSria Work Phone: [facility] Start: 08-03-2021 End: 08-03-[address] FELA MARTINEZ Facility:[facility] Start: 07-25-2021 End: 07-25-2021 Patient encounter procedure Lizy SORIA [facility] [place] Start: 07-15-2021 Telephone encounter Arsh villatoro MD, PhD Work Phone: Allergy Comment on above: Medication Authoriza tion ([facility]) Start: 06-27-2021 Telephone encounter Arsh villatoro MD, PhD Work Phone: Allergy Comment on above: Medication Authoriza tion ([facility]) Start: 06-15-2021 Telephone encounter Arsh villatoro MD, PhD Work Phone: Allergy Comment on above: Medication Problem Start: 06-03-2021 Telephone encounter Arsh villatoro MD, PhD Work Phone: Allergy Comment on above: Medication Problem Start: 05-09-2021 ambulatory Arsh perez MD, PhD Work Phone: Rheumatology Comment on above: Nurse Start: 12-07-2020 Office outpatient vi sit 5 minutes Raquel Regan [facility] Min Procedures Date Procedure Procedure Detail Performing Clinician Start: 02-22-2023 Follow-up visit Follow-up LUCAS MCDOWELL Start: 12-06-2022 Esophagoscp rig transoral hypopharynx crv esoph Becka Rubi DO Work Phone: Start: 04-13-2022 Radiologic exam abdomen 1 view Frederic Douglass DO Work Phone: Start: 04-11-2022 Nerve conduction studies 5-6 studies Saroj Foss 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 Work Phone: Start: 01-25-2022 ACTIN SMOOTH MUSCLE AB EA Reece Sarmiento MD Work Phone: Start: 01-25-2022 Comprehensive metabolic panel Chilo alfonso MD Work Phone: Start: 01-25-2022 HEP REMOTE PANEL BL Reece Sarmiento MD Work Phone: Start: 01-25-2022 Hepatitis c antibody Reece Sarmiento MD Work Phone: Start: 01-25-2022 Iaad ia hepatitis b surface antigen Reece Sarmiento MD Work Phone: Start: 01-02-2022 Esophagogastroduodenoscopy Obed MASON Start: 10-11-2021 Mri spinal canal cervical w/o & w/contr matrl Saroj Foss APRN.MANAGER TRADING Work Phone: Start: 10-03-2021 End: 10-03-2021 Visual field xm uni/bi w/interp extended exam Kulwant Castillo MD Work Phone: Start: 08-04-2021 CT cervical spine without contrast DO Gr re Soria Work Phone: Start: 08-04-2021 CT angiography of head DO Lizy Soria Work Phone: Start: 02-02-2021 Esophagogastroduodenoscopy gastric outlet reduction Lizy SORIA Start: 12-09-2020 Esophagogastroduodenoscopy Lizy SORIA Comment on above: antral ulcer, dilated Start: 03-10-2015 Ileostomy operation Lizy SORIA colon removed Lizy SORIA Laboratory test result abnormal Abnormal laboratory test Saroj Foss APRN.MANAGER TRADING Work Phone: Laboratory test result abnormal Abnormal laboratory test Kim Rogers MD Work Phone: Robotic laparoscopic total abdominal colectomy with ileorectal anastomosis and diverting ileostomy Lizy SORIA Small intestine excision Tima SORIA Plan of Treatment Date Care Activity Detail Author Start: 11-22-2023 Creatinine measurement Serum Creatin ine [facility] Start: 11-22-2023 Serum Creatinine Serum Creatinine Cl [facility] Start: 07-16-2023 SERUM CREATININE SERUM CREATININE Cl [facility] Start: 03-10-2023 SERUM CREATININE SERUM CREATININE Cl [facility] Start: 03-08-2023 SERUM CREATININE SERUM CREATININE Cl [facility] Start: 02-17-2023 SERUM CREATININE SERUM CREATININE Cl [facility] Start: 01-31-2023 SERUM CREATININE SERUM CREATININE Cl [facility] Start: 01-30-2023 SERUM CREATININE SERUM CREATININE Cl [facility] Start: 01-28-2023 SERUM CREATININE SERUM CREATININE Cl [facility] Start: 2022 End: 01-08-2023 Comprehensive metabolic 2000 panel - Serum or Plasma COMP METABOLIC PANEL Lab Routine Orthostatic lightheadedness Expected: 2022, Expires: 01/08/2023 [facility] Work Phone: Comment on above: Expected: 2022 , Expires: 01/08/2023 Start: 10-20-2022 Influenza vaccination [facility] Start: 08-10-2022 End: 10-10-2022 MISC SEND OUT TST 1 [facility] Work Phone: Comment on above: Expected: 08/10/2022 (Approximate), Expires: 10/10/2022 Start: 04-13-2022 End: 06-13-2022 ACETYLCHOLINE REC BINDING AB [facility] Work Phone: Comment on above: Expected: 04/13/2022 , Expires: 06/13/2022 Start: 04-13-2022 End: 06-13-2022 AMINO ACIDS, PLASMA W/ CONSULTATION [facility] Work Phone: Comment on above: Expected: 04/13/2022 , Expires: 06/13/2022 Start: 04-13-2022 End: 06-13-2022 CARNITINE FREE/TOTAL, PLASMA [facility] Work Phone: Comment on above: Expected: 04/13/2022 , Expires: 06/13/2022 Start: 04-13-2022 End: 06-13-2022 CYTOKINE PANEL 13, SERUM [facility] Work Phone: Comment on above: Expected: 04/13/2022 , Expires: 06/13/2022 Start: 04-13-2022 End: 06-13-2022 Erythrocyte sedimentation rate [facility] Work Phone: Comment on above: Expected: 04/13/2022 , Expires: 06/13/2022 Start: 04-13-2022 End: 06-13-2022 ESTROGEN FRACTION BL [facility] Work Phone: Comment on above: Expected: 04/13/2022 , Expires: 06/13/2022 Start: 04-13-2022 End: 06-13-2022 Glutamate decarboxylase 65 Ab [Units/volume] in Serum [facility] Work Phone: Comment on above: Expected: 04/13/2022 , Expires: 06/13/2022 Start: 04-13-2022 End: 06-13-2022 Hemoglobin A1c in Blood [facility] Work Phone: Comment on above: Expected: 04/13/2022 , Expires: 06/13/2022 Start: 04-13-2022 End: 06-13-2022 IgA [Mass/volume] in Serum or Plasma [facility] Work Phone: Comment on above: Expected: 04/13/2022 , Expires: 06/13/2022 Start: 04-13-2022 End: 06-13-2022 IgG [Mass/volume] in Serum or Plasma [facility] Work Phone: Comment on above: Expected: 04/13/2022 , Expires: 06/13/2022 Start: 04-13-2022 End: 06-13-2022 IgM [Mass/volume] in Serum or Plasma [facility] Work Phone: Comment on above: Expected: 04/13/2022 , Expires: 06/13/2022 Start: 04-13-2022 End: 06-13-2022 Lactate dehydrogenase [Enzymatic activity/volume] in Serum or Plasma [facility] Work Phone: Comment on above: Expected: 04/13/2022 , Expires: 06/13/2022 Start: 04-13-2022 End: 04-25-2023 ORGANIC ACIDS UR, QUANT W/CONSULTATION [facility] Work Phone: Comment on above: Expected: 04/13/2022 , Expires: 06/13/2022 Start: 04-13-2022 End: 06-13-2022 PLASMA THYMIDINE DETERMINATION [facility] Work Phone: Comment on above: Expected: 04/13/2022 , Expires: 06/13/2022 Start: 04-13-2022 End: 06-13-2022 PYRUVATE+LACTATE BL [facility] Work Phone: Comment on above: Expected: 04/13/2022 , Expires: 06/13/2022 Start: 04-13-2022 End: 06-13-2022 Thyroxine (T4) free [Mass/volume] in Serum or Plasma [facility] Work Phone: Comment on above: Expected: 04/13/2022 , Expires: 06/13/2022 Start: 04-13-2022 End: 06-13-2022 VOLTAGE GATED CA IGG [facility] Work Phone: Comment on above: Expected: 04/13/2022 , Expires: 06/13/2022 Start: 04-13-2022 End: 06-13-2022 Voltage-gated potassium channel Ab [Moles/volume] in Serum [facility] Work Phone: Comment on above: Expected: 04/13/2022 , Expires: 06/13/2022 Start: 04-10-2022 End: 06-10-2022 Comprehensive metabolic 2000 panel - Serum or Plasma COMP METABOLIC PANEL Lab Routine Proximal leg weakness Expected: 04/10/2022, Expires: 06/10/2022 [facility] Work Phone: Comment on above: Expected: 04/10/2022 , Expires: 06/10/2022 Start: 03-10-2022 End: 05-10-2022 Creatine kinase [Enzymatic activity/volume] in Serum or Plasma [facility] Work Phone: Comment on above: Expected: 03/10/2022 , Expires: 05/10/2022 Start: 03-10-2022 End: 05-10-2022 Lactate dehydrogenase [Enzymatic activity/volume] in Serum or Plasma [facility] Work Phone: Comment on above: Expected: 03/10/2022 , Expires: 05/10/2022 Start: 03-10-2022 End: 05-10-2022 MUSK ANTIBODY TEST [facility] Work Phone: Comment on above: Expected: 03/10/2022 , Expires: 05/10/2022 Start: 03-08-2022 End: 05-08-2022 Asael Connors virus DNA [#/volume] (viral load) in Blood by JEAN with probe detection [facility] Work Phone: Comment on above: Expected: 03/08/2022 , Expires: 05/08/2022 Start: 01-19-2022 End: 03-21-2022 COPPER BLOOD [facility] Work Phone: Comment on above: Expected: 01/19/2022 , Expires: 03/21/2022 Start: 01-19-2022 End: 03-21-2022 HEAVY METALS SCRN BL [facility] Work Phone: Comment on above: Expected: 01/19/2022 , Expires: 03/21/2022 Start: 01-19-2022 End: 03-21-2022 Methylmalonate [Moles/volume] in Serum or Plasma [facility] Work Phone: Comment on above: Expected: 01/19/2022 , Expires: 03/21/2022 Start: 01-19-2022 End: 03-21-2022 MYELOID NGS PANEL PERIPHERAL BLOOD [facility] Work Phone: Comment on above: Expected: 01/19/2022 , Expires: 03/21/2022 Start: 01-19-2022 End: 03-21-2022 Zinc [Mass/volume] in Serum or Plasma [facility] Work Phone: Comment on above: Expected: 01/19/2022 , Expires: 03/21/2022 Start: 11-23-2021 End: 01-23-2022 ACETYLCHOLINE REC BINDING AB [facility] Work Phone: Comment on above: Expected: 11/23/2021 , Expires: 01/23/2022 Start: 11-23-2021 End: 01-23-2022 Alpha tocopherol [Mass/volume] in Serum or Plasma [facility] Work Phone: Comment on above: Expected: 11/23/2021 , Expires: 01/23/2022 Start: 11-23-2021 End: 01-23-2022 Ceruloplasmin [Mass/volume] in Serum or Plasma [facility] Work Phone: Comment on above: Expected: 11/23/2021 , Expires: 01/23/2022 Start: 10-20-2021 Influenza vaccination [facility] Start: 09-20-2021 End: 11-20-2021 25-hydroxyvitamin D3 [Mass/volume] in Serum or Plasma [facility] Work Phone: Comment on above: Expected: 09/20/2021 , Expires: 11/20/2021 Start: 09-20-2021 End: 11-20-2021 Alpha tocopherol [Mass/volume] in Serum or Plasma [facility] Work Phone: Comment on above: Expected: 09/20/2021 , Expires: 11/20/2021 Start: 09-20-2021 End: 11-20-2021 Hemoglobin A1c in Blood [facility] Work Phone: Comment on above: Expected: 09/20/2021 , Expires: 11/20/2021 Start: 11-09-2015 HPV TESTING HPV TESTING [facility] Start: 11-09-2015 Screening for malign ant neoplasm of cervix HPV Testing [facility] Start: 11-04-2013 PAP TESTING PAP TESTING [facility] Start: 11-04-2013 Screening for malign ant neoplasm of cervix Pap Testing [facility] Start: 08-04-2010 PNEUMOCOCCAL (2 - PCV) PNEUMOCOCCAL (2 - PCV) [facility] Start: 08-04-2010 Pneumococcal vaccination Pneum ococcal Vaccine (2 - PCV) [facility] Start: 2004 SHINGRIX VACCINE (1 of 2) SHINGRIX VACCINE (1 of 2) [facility] Start: 2004 Urine microalbumin profile [facility] Start: 11-09-2003 ANNUAL PCP TEAM MANAGER [place] DISEASE VISIT ANNUAL PCP TEAM CHRONIC DISEASE VISIT [facility] Start: 11-09-2003 HIV SCREENING HIV SCREENING [facility] Start: 1997 COVID-19 VACCINE (1) COVID-19 VACCIN E (1) [facility] Start: 11-09-1991 PNEUMOCOCCAL (1 - PCV) PNEUMOCOCCAL (1 - PCV) [facility] Start: 1990 COVID-19 VACCINE (#1) COVID-19 VACCI NE (#1) [facility] Start: 05-08-1986 COVID-19 VACCINE (#1) COVID-19 VACCI NE (#1) [facility] Start: 1985 HEPATITIS B (1 of 3 - 3-dose series) HEPATITIS B (1 of 3 - 3-dose series) [facility] End: 04-13-2023 ADULT [place] ANORECTAL MANOMETRY [facility] Endoscopy Routine History of colectomy Chronic idiopathic constipation 1 Occurrences starting 04/13/2022 until 04/13/2023 [facility] Work Phone: Comment on above: 1 Occurrences starti ng 04/13/2022 until 04/13/2023 ALPHA 1 ANTITRYPSIN PHENOTYPE ALPHA 1 ANTITRYPSIN PHENOTYPE Lab Routine Elevated LFTs Iron disorder 01/25/2022 12:30 PM [facility] Work Phone: Comprehensive metabo lic 2000 panel - Serum or Plasma COMP METABOLIC PANEL Lab Routine Proximal leg weakness 03/10/2022 12:37 PM EST [facility] Work Phone: End: 03-10-2023 EMG(NEURO/NI) EMG(NEURO/NI) EMG Routine Proximal leg weakness 1 Occurrences starting 03/10/2022 until 03/10/2023 [facility] Work Phone: Comment on above: 1 Occurrences starti ng 03/10/2022 until 03/10/2023 End: 07-04-2023 EMG(NEURO/NI) EMG(NEURO/NI) EMG Routine Muscle weakness 1 Occurrences starting 07/03/2022 until 07/04/2023 [facility] Work Phone: Comment on above: 1 Occurrences starti ng 07/03/2022 until 07/04/2023 End: 06-28-2023 EPIL EEG LONG EPIL EEG LONG NEUROLOGY Routine History of seizure 1 Occurrences starting 06/27/2022 until 06/28/2023 [facility] Work Phone: Comment on above: 1 Occurrences starti ng 06/27/2022 until 06/28/2023 EPIL VEEG ADMIT TO EMU/PMU EPIL VEEG ADMIT TO EMU/PMU NEUROLOGY Routine Convulsions, unspecified convulsion type (HCC) Ordered: 07/03/2022 [facility] Work Phone: Comment on above: Ordered: 07/03/2022 End: 04-13-2023 Gi transit & pres abimael wireless capsule w/interp CAPSULE ENDOSCOPY SMART Endoscopy Routine Gastroparesis 1 Occurrences starting 04/13/2022 until 04/13/2023 [facility] Work Phone: Comment on above: 1 Occurrences starti ng 04/13/2022 until 04/13/2023 Gi transit & pres me as wireless capsule w/interp CAPSULE ENDOSCOPY SMART Endoscopy Routine Gastroparesis 09/25/2022 [facility] Work Phone: End: 10-20-2022 Mri brain brain stem w/o w/contrast material MRI BRAIN WO/W IVCON Radiology Routine Demyelinating disease of central nervous system (HCC) 1 Occurrences starting 09/20/2021 until 10/20/2022 [facility] Work Phone: Comment on above: 1 Occurrences starti ng 09/20/2021 until 10/20/2022 End: 10-20-2022 Mri spinal canal cervical w/o & w/contr matrl MRI CERVICAL SPINE WO/W IVCON Radiology Routine Demyelinating disease of central nervous system (HCC) 1 Occurrences starting 09/20/2021 until 10/20/2022 [facility] Work Phone: Comment on above: 1 Occurrences starti ng 09/20/2021 until 10/20/2022 NEURO CARDIO AUTONOM IC REFLEX W/WO TILT NEURO CARDIO AUTONOMIC REFLEX W/WO TILT Procedures Routine Disturbance of skin sensation Hypotension, postural Ordered: 09/20/2021 [facility] Work Phone: Comment on above: Ordered: 09/20/2021 NEURO CARDIO AUTONOM IC REFLEX W/WO TILT NEURO CARDIO AUTONOMIC REFLEX W/WO TILT Procedures Routine Orthostatic lightheadedness Ordered: 06/27/2022 [facility] Work Phone: Comment on above: Ordered: 06/27/2022 NEURO QSART NEURO QSART Proc edures Routine Disturbance of skin sensation Ordered: 09/20/2021 [facility] Work Phone: Comment on above: Ordered: 09/20/2021 NEURO QSART NEURO QSART Proc edures Routine Orthostatic lightheadedness Ordered: 06/27/2022 [facility] Work Phone: Comment on above: Ordered: 06/27/2022 Patient Education Essential Tremor [facility] Work Phone: Patient referral 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, sleep walking type 1 Occurrences starting 02/10/2022 until 02/10/2023 [facility] Work Phone: Comment on above: 1 Occurrences starti ng 02/10/2022 until 02/10/2023 Prolactin [Mass/volu me] in Serum or Plasma [facility] Work Phone: SARS-CoV-2 (COVID-19 ) RNA [Presence] in Respiratory specimen by JEAN with probe detection SELF CHECK COVID Microbiology Routine Convulsions, unspecified convulsion type (HCC) Ordered: 07/03/2022 [facility] Work Phone: Comment on above: Ordered: 07/03/2022 SKIN BIOPSY FOR NEUROPATHY/CNL SKIN BIOPSY FOR NEUROPATHY/CNL Procedures Routine Disturbance of skin sensation Ordered: 09/20/2021 [facility] Work Phone: Comment on above: Ordered: 09/20/2021 SPEECH PLAN OF CARE CERTIFICATION SPEECH PLAN OF CARE CERTIFICATION Procedures Routine Functional neurological symptom disorder with weakness or paralysis Other speech disturbance Cognitive communication deficit Ordered: 10/19/2022 [facility] Work Phone: Comment on above: Ordered: 10/19/2022 [facility] c [facility] c [facility] c [facility] c [facility] c [facility] c [facility] c [facility] c [facility] c [facility] c [facility] c [facility] c [facility] Immunizations Immunization Date Immunization Notes Care Provider Nely myrick 08-04-2009 pneumococcal polysaccharide vaccine, 23 hermila Kiser MD, PhD Work Phone: [facility] NEGATED: Highlighted row has not occurred!01-23-2019 influenza virus vaccine, unspecified formulation Lizy SORIA [facility] Jun Payers Date Payer Category Payer Medicaid [employer] [facility] MEDICAID [id number] 2013-Present [phone] [address] [place] [address] Medicaid [id number] 2013 Medicaid [id number] 2013 Unknown [id number] 1985 Unknown [id number] 1985 Unknown [id number] 1985 Unknown [id number] 1985 Unknown [id number] 1985 Unknown [id number] 1985 Unknown [id number] 1985 Unknown [id number] 1985 Unknown [id number] 1985 Unknown [id number] 1985 Unknown [id number] [id number] 1985 Unknown [id number] 1985 Unknown [id number] 1959 Medicaid [id number] Self-pay Self Pay [id number] Unknown [employer] [phone] [id number] Social History Date Type Detail Facility Start: 02-09-2015 End: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 w Endoscopic Pyloromyotomy Medication reconciliation list reviewed in [facility]. Past medical history, past surgical history, social history and family history reviewed and updated in [facility]. ALLERGIES Allergen Reactions Antidepressants [Se* Other: See Comments It knocks me out. Rondec [Bromphenira* crying for 12 solid hours-per mom Latex, Natural Rubb* Rash, Swelling See Epic for vital signs Examination indicates no changes. On examination today: Lungs: Clear to auscultation bilaterally. Heart: RRR, Normal S1/S2, No significant murmurs, rubs, gallops or thrills appreciated. Abdomen: BS+ in all quadrants, abdomen is soft, non tender, and without guarding. Assessment: Gastroparesis Plan: EGD w Endoscopic Pyloromyotomy This H&P can be found in the Electronic Medical Record dated 11/16/22 by Becka Rubi DO. SIGNATURE: IRENA Cabrales PATIENT NAME: Ben Barr DATE: December 06, 2022 TIME: 8:46 AM documented in this encounter [facility] 11-22-2022 Instructions Fe Brown PA-Lara - 11/22/2022 3:20 PM EDT PATIENT PREOPERATIVE INSTRUCTIONS Becka Rubi DO has scheduled you for your procedure at this surgery center: [facility]: [phone] -- [place] [address]. Please read below carefully for your personalized instructions. Dietary Restrictions: Days before procedure: Day 3-full liquid diet; Day 2-full liquid diet; Day 1- CLEAR LIQUIDS ONLY . (water, clear juices such as apple juice or gatorade, carbonated beverages, clear tea, black coffee, and jello). Nothing by mouth after midnight before procedure, except a small sip of water to take approved medications. Medications: Unless instructed differently below, stay on all of your medications until your surgery. Approved medications to take the morning of surgery with a sip of water: Omeprazole, Valium, Propranolol, Zofran if needed, Buspar If you start any new medications after today's visit, please contact the surgeon's office. Blood Thinning Medications: - Stop NSAIDS (Ibuprofen, Advil, Aleve, Motrin, Celebrex, Mobic, etc.) 7 days before surgery, as directed by your surgeon. - Stop Aspirin 7 days before surgery, as directed by your surgeon. - Stop Vitamin E, ALL multi-vitamins, herbals and dietary supplements 7 days before surgery. You may continue taking potassium up until the day prior to surgery. - You may take Tylenol (Acetaminophen) or any of your pain medications that do not contain aspirin or NSAIDS as needed. Important Reminders: - Candy, mints, and tobacco products are NOT permitted the morning of surgery. - Hearing aids, dentures and glasses may be worn the morning of surgery. - NO jewelry, body piercings, makeup, hairpins or contacts are to be worn the day of surgery. If you develop symptoms such as a fever, cold, or flu, or have other changes to your health within TWO DAYS of scheduled surgery or the morning of surgery, please contact the surgery center above. Personal Belongings: -Please have photo ID and insurance cards. -If you do not have a copy of advance directives on file with us, please bring a copy with you on the day of surgery. - Leave ALL valuables and money at home or with family members. For Outpatient Procedures: - YOU MUST HAVE A RESPONSIBLE NETWORK MGR TAKE YOU HOME. A COKE WHEELER OR TELEGRAPH SERVICE CLERK CANNOT BE MADE A RESPONSIBLE NETWORK MGR. - We recommend that a responsible person stays with you overnight to take care of you. - You cannot stay in a hotel alone after outpatient surgery. You will not be permitted to have your surgery, if you do not have someone to take care of you. Arrival Time for Surgery: - The Surgery Center or hospital where you are having surgery will call the afternoon before surgery (or Sunday for Sunday surgery) with a scheduled arrival time. - If you have not heard by 4 pm, please contact the surgery center above. Please be aware that emergency situations arise, which may delay or change your surgical time. If this happens, we will notify you as soon as possible and regret any inconvenience. If you already have an Advance Directive, please fax a copy to [phone] or email to for it to be added to your chart. If you do not have an Advance Directive, you can find the appropriate form and more information at [email or web address]. We recommend that you complete the Advance Directive form found on the website and bring it with you the day of your surgery. It can be witnessed and scanned into your chart that day. Fe Brown PA-C documented in this encounter [facility] 11-22-2022 History and physical note PREANESTHESIA CONSULT CLINIC TELEHEALTH VISIT Patient has been identified by name and date of : Yes This is a virtual visit using [employer] Video Visit. It require patient-provider interaction for the medical decision making as documented below. Reason for contact: PACC visit Accompanied by: Self Scheduled Surgery: EGD w Endoscopic Pyloromyotomy 12/06/2022 Subjective CHIEF COMPLAINT: Patient presents with: Pre-Op Exam HPI: This is a 37 year old female who presents with gastroparesis. She has had nausea, vomiting and diarrhea since she underwent laparoscopic total abdominal colectomy with ileorectal anastomosis and diverting loop ileostomy (ileostomy now reversed) in 2015 for slow transit constipation. Her symptoms have worsened in the past year and she now endorses increasing fatigue. Gastric emptying study from 01/30/2022 revealed: IMPRESSION: REDUCED RATE OF GASTRIC EMPTYING OF A SOLID MEAL. 21-35% GASTRIC RETENTION AT 4 HOURS IS CONSISTENT WITH MODERATE GASTROPARESIS. ACTIVE PROBLEM LIST Other Vitamin B12 Deficiency Anemia Abdominal Pain, Generalized Pituitary Tumor Hypothyroidism Tobacco Abuse Low Back Pain Depression Anxiety Pms (Premenstrual Syndrome) Dysautonomia Hypogammaglobulinemia (Hcc) Recurrent Convulsions (Hcc) Recurrent Vomiting Abdominal Pain Summary Syncope and collapse Portal Vein Thrombosis Liver Infarct 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 Anticoagulation Management Encounter Malnutrition of Mild Degree (Hcc) Attention to Ileostomy (Hcc) Postoperative Pain Postoperative Ileus (Hcc) Cvid (Common Variable Immunodeficiency) (Hcc) Recurrent Infections Enteropathy Cytopenia Right Upper Quadrant Abdominal Pain Nausea & Vomiting Transaminitis Intussusception (Hcc) H/O: Pituitary Tumor Generalized Anxiety Disorder History of Colectomy Chronic Insomnia Stage 2 Chronic Kidney Disease Nicotine use disorder, F17.2 Pots (Postural Orthostatic Tachycardia Syndrome) Somnambulism Somniloquy Sleep-Related Movement Disorder Malaise and Fatigue Gastroparesis 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 PAST MEDICAL HISTORY Diagnosis Date Anxiety has been on xanax Chronic kidney disease, stage II (mild) Common variable immunodeficiency (HCC) Convulsions Depression has been prozoac, wellbutrin, celexa, zoloft-sees psychiatrist prior SI Former smoker Gastroparesis Grand mal convulsion (HCC) Hypogammaglobulinaemia, unspecified Hypothyroid Intussusception (HCC) as child Low back pain PMS (premenstrual syndrome) POTS (postural orthostatic tachycardia syndrome) Thrombocytopenia (HCC) Vitamin D deficiency PAST SURGICAL HISTORY Procedure Laterality Date COLONOSCOPY FLX DX W/COLLJ SPEC WHEN PFRMD 02/19/2011 Colonoscopy COLONOSCOPY FLX DX W/COLLJ SPEC WHEN PFRMD Colonoscopy ESOPHAGOGASTRODUODENOSCOPY TRANSORAL DIAGNOSTIC 09/19/2008 neg duodenal bx ESOPHAGOGASTRODUODENOSCOPY TRANSORAL DIAGNOSTIC 12/17/2014 EGD LAPAROSCOPIC HEMICOLECTOMY 2016 PAST SURGICAL HISTORY OF 02/19/2005 partial bowel resection PAST SURGICAL HISTORY OF ingrown toenails removed FAMILY HISTORY Problem Relation Age of Onset Diabetes Mother other (Raynauds [Other]) Mother Hyperlipidemia Mother Hypertension Mother Alcohol abuse Father Gout Father other (POTS [Other]) Sister both sisters other (AVM [Other]) Sister Cancer Paternal Grandmother lung; smoker other (healthy [Other]) Daughter Diabetes Maternal Aunt type 1 Thyroid Maternal Aunt grave's Thyroid Maternal Aunt Neel's Thyroid Maternal Uncle hypothyroid Social History Tobacco Use Smoking status: Former Packs/day: 0.50 Years: 6.00 Additional pack years: 0.00 Total pack years: 3.00 Types: Cigarettes Quit date: 12/21/2015 Years since quittin.9 Smokeless tobacco: Never Substance Use Topics Alcohol use: Yes Comment: less than 1 drink per week Drug use: Yes Frequency: 7.0 times per week Comment: CBD gummies occasionally for sleep ALLERGIES Allergen Reactions Antidepressants [Se* Other: See Comments It knocks me out. Rondec [Bromphenira* crying for 12 solid hours-per mom Latex, Natural Rubb* Rash, Swelling MEDICATIONS: Current Outpatient Medications Medication Sig omega-3 fatty acids 1,000 mg cap Take 1 capsule by mouth once daily. omeprazole (PRILOSEC) 40 mg capsule Take 1 capsule by mouth two times a day. potassium chloride SR (MICRO-K) 10 mEq CR capsule Take 10 mEq by mouth once daily. diazePAM (VALIUM) 5 mg tablet Take 1 tablet by mouth twice daily for 30 days. immune globulin, human,, IgG, (GAMMAGARD LIQUID) 10 % soln Inject 250 mL intravenously one time a week. propranolol ER (INDERAL LA) 60 mg 24 hr capsule TAKE ONE CAPSULE BY MOUTH ONCE DAILY ondansetron orally disintegrating (ZOFRAN ODT) 4 mg disintegrating tablet TAKE ONE TABLET BY MOUTH EVERY 8 HOURS NEEDED FOR NAUSEA VOMITING busPIRone (BUSPAR) 10 mg tablet Take 30 mg by mouth twice daily. diphenhydrAMINE (BENADRYL) 25 mg capsule Take 1 capsule by mouth as directed. Use as directed. pantoprazole DR (PROTONIX) 40 mg tablet Take 1 tablet by mouth twice daily. Take after POP procedure (Patient not taking: Reported on 11/22/2022) sucralfate (CARAFATE) 100 mg/mL suspension Take 10 mL by mouth twice daily. (Patient not taking: Reported on 11/22/2022) sodium chloride 1,000 mg TbSO Take 1 tablet by mouth once daily. 0.9 % sodium chloride (NACL 0.9%) infusion Inject 200 mL/hr intravenously continuous. 1L during IVIG infusions No current facility-administered medications for this visit. COVID VACCINATION STATUS: Not vaccinated, prior infection REVIEW OF SYSTEMS: Pain Assessment: General: No weight loss, malaise or fevers. Neuro: No history of TIA's, stroke, MORTGAGE OPERATIONS MANAGER tumor, impaired sensorium, hemiplegia, paraplegia or quadraplegia. +h/o seizures ~ 6 since 2005- last seizure 8 years ago and patient noted they are related to stress +tremors with neuro movement disorder- follows with neuro [facility] Respiratory: No current cough or dyspnea, or pneumonia in the past 6 weeks. +former smoker +asthma as a child Cardiovascular: No history of HTN requiring medication, no history of angina, CHF, AR, cardiac surgery or stents. Denies rest pain, gangrene or revascularization/amputation for PVD. 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 +Pms : Denies, Patient's last menstrual period was 11/11/2022 (approximate). Endocrine: No history of diabetes. Has not taken steroids within the past 30 days. +h/o hypothyroid- not on medication currently Hematology: No history of bleeding or clotting disorder. Pt is not taking anti-coagulation or platelet medications. +Common variable immunodeficiency on IVIG +anemia Oncology: No history of CA metastasis, chemo within 30 days, or radiotherapy within 90 days. Has not lost 10% of body wt in 6 months. No history of oncological symptoms or problems. Psych: +anxiety/ depression +h/o SI +PTSD Musculoskeletal: +diffuse joint pain patient attributes to movement disorder Skin: Negative for lesions, rash and itching. Objective PHYSICAL EXAM: Ht 5' 0 (1.52m) Wt 157 lb (71.2kg) LMP 11/11/2022 BMI 30.66 kg/(m^2). VIDEO EXAM: (if completed, performed via video enabled technology) GENERAL: alert and appropriate, in no distress, well-hydrated, well nourished, and happy, smiling, interactive SKIN: no rash noted HEAD: normocephalic, no abnormality or lesion noted EYES: no injection and visual acuity is grossly normal EARS: hearing grossly normal NOSE: external nose normal without rhinorrhea OROPHARYNX: moist mucus membranes NECK: full ROM, no cervical LNs noted RESPIRATORY: breathing non-labored CHEST: equal chest rise with normal respiratory effort HEART: regular rhythm per patient counting method EXTREMITIES: no patient reported lower extremity edema NEUROLOGIC: no obvious deficit Diagnostic tests reviewed for today's visit: Lab Value Units Date High Low HB 12.7 g/dL 10/16/2022 15.5 11.5 HCT 37.7 % 10/16/2022 46.0 36.0 WBC 5.07 k/uL 10/16/2022 11.00 3.70 PLT 238 k/uL 10/16/2022 400 150 NA 139 mmol/L 11/21/2022 144 136 K 4.1 mmol/L 11/21/2022 5.1 3.7 GLUC 96 mg/dL 11/21/2022 99 74 BUN 13 mg/dL 11/21/2022 21 7 CREAT 1.08 mg/dL 11/21/2022 0.96 0.58 PTSEC 9.8 sec 07/15/2022 13.0 9.7 INR 0.9 no uni* 07/15/2022 1.3 0.9 APTT 24.5 sec 07/15/2022 32.4 23.0 ALT 19 U/L 11/21/2022 38 7 AST 25 U/L 11/21/2022 35 13 TBILI 0.4 mg/dL 11/21/2022 1.3 0.2 TSH 3.370 mIU/L 07/15/2022 4.200 0.270 Lab Value Units Date High Low HCGQT No results within date range. UHCG No results within date range. HCG, BODY* No results within date range. Lab Value Units Date High Low ABORHD No results within date range. ABSCREEN No results within date range. Hemoglobin A1C (%) Date Value 04/13/2022 4.5 09/20/2021 4.5 Most recent labs Most recent imaging Most recent EKG from 2016 in [facility]: Diagnosis:NORMAL SINUS RHYTHM POSSIBLE LATERAL MYOCARDIAL INFARCTION , AGE UNDETERMINED ABNORMAL ECG Impression/Recommendations ASSESSMENT: Depression Assessment: managed with Buspar PTSD (post-traumatic stress disorder) Assessment: managed with Buspar Follows with psychiatry POTS (postural orthostatic tachycardia syndrome) Assessment: managed with sodium chloride Follows with neuro- last visit with Saroj Foss APRN.MANAGER TRADING 2022 Former smoker Assessment: quit 2016 Stage 2 chronic kidney disease Assessment: Creatinine Date Value Ref Range Status 11/21/2022 1.08 (H) 0.58 - 0.96 mg/dL Final BUN Date Value Ref Range Status 11/21/2022 13 7 - 21 mg/dL Final GERD (gastroesophageal reflux disease) Assessment: managed with Omeprazole Gastroparesis Assessment: managed with Zofran CVID (common variable immunodeficiency) (HCC) Assessment: managed with IgG History of colectomy Assessment: Robotic laparoscopic total abdominal colectomy with ileorectal anastomosis and diverting ileostomy 2016 for slow transit constipation METS: Do moderate work around the house such as vacuuming, sweeping floors, or carrying in groceries (3.50 METs) Patient denies any chest pain or undue shortness of breath with the above physical activity. ASA Class: 3 ANESTHESIA FINDINGS: Intubation History: No history of difficult intubation Significant Anesthesia Considerations: None Airway Exam: General: Normal appearance Mallampati Score is CLASS II ULBT: Class II - Lower incisors can bite the upper lip below the joes line Neck: Normal appearance and function, Distance from hyoid to mentum during neck extension is at least 3 finger breaths Mouth: Normal tongue size and Mouth opening greater than 2 finger breaths Dentition: Intact and Caps/crowns ~ 3 missing Airway History: No abnormal airway history STOP BANG Score: Criteria: Neck circumference > 15.75 inches Score = 1 PLAN: This patient is optimally prepared for surgery. CONSULTS: Patient does not require consults for optimization at this time. The Following Tests/Procedures Have Been Initiated: EKG not indicated per [facility] protocol CBC w/ diff from 10/16/2022 and CMP from 11/21/2022 in Epic Planned Anesthetic: Per anesthesia choice Instructions Given to Patient: Patient given verbal instructions and voices comprehension and compliance. Copy sent electronically via My Chart, email, or mobile device. I spent more than 21-40 minutes [id number] with the patient and over half the time was devoted to counseling and/or coordination of care. This is a virtual visit. It required patient-provider interaction for the medical decision making as documented above. SIGNATURE: Fe Brown PA-C PATIENT NAME: Ben Barr DATE: November 22, 2022 TIME: 2:44 PM PAGER/CONTACT #: documented in this encounter [facility] 11-16-2022 Note [facility] 11-16-2022 Note [facility] 2022 Note [facility] 2022 History of Present illness Narrative Images from the original note were not included. [facility] Established Patient Virtual Visit Chief Complaint/Issues: Ben Barr is a 36 year old handed right-handed female seen via virtual visit for: Follow up Hypotension This is a virtual visit using [employer] Video Visit. It required patient-provider interaction for the medical decision making as documented below. I have communicated my name and active licensure. The patient's identity and physical location were verified at the time of this visit. Either the patient or their legal field representative has been informed of the risks and benefits of -- and alternatives to -- treatment through a remote evaluation and consents to proceed with the evaluation remotely. Brief HPI /Most Recent Department Assessment and Plan Established patient seen initially for tremulous and intermittent episodes of leg weakness. She was referred to movement disorders, following with Dr. Noyola for tremulousness. She had initial complaints or lightheadedness and sensory disturbance. Skin biopsy completed and WNL, though she has not completed autonomic with tilt or QSART ordered in 10/2021. She had autonomic neuropathy noted based on absent response on QSART in 2009 at all sites, but this is more likely related to medication effect in setting of normal sensory exam. We have been treating her for chronic tension headache, described as pressure sensation. Referred to headache clinic for ongoing management. At most recent visit she had proximal muscle weakness on exam, EMG ordered myopathy protocol and WNL. She has multiple evaluations of CK normal in the past. MUSK Ab negative 03/13. ACHR Ab checked and negative in 12/10, now showing equivocal in 04/13. EMG WNL. She had proximal weakness on exam concerning for functional weakness. Referred to [place] and seen by Dr. Rogers, who agreed not consistent with stiff person syndrome. Seen by Dr. 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 At most recent evaluation reporting symptoms of waves in her head which were similar to her prior seizure prodrome. She did have EMU monitoring in 2014 demonstrating sharp waves in L frontotemporal, and intermittent slowing L>R temporal. EMU evaluation 06/2022 with one typical episode without EEG change. Most recent visit 06/27/2022: Ben Barr is a 36 year old here today for follow up. Ben Barr has a has a past medical history of Anxiety, Chronic kidney disease, stage II (mild), Common variable immunodeficiency,Depression, Gastroparesis, Grand mal seizures (onset age 20, on trileptal), Hypogammaglobulinaemia, Hypothyroid, Intussusception, Low back pain, PMS (premenstrual syndrome), Thrombocytopenia, Tobacco abuse, and Vitamin D deficiency. Established patient seen initially for tremulous and intermittent episodes of leg weakness. She was referred to movement disorders, following with Dr. Noyola for tremulousness. She had initial complaints or lightheadedness and sensory disturbance. Skin biopsy completed and WNL, though she has not completed autonomic with tilt or QSART ordered in 10/2021. She had autonomic neuropathy noted based on absent response on QSART in 2009 at all sites, but this is more likely related to medication effect in setting of normal sensory exam. We have been treating her for chronic tension headache, described as pressure sensation. Tried on Topamax and did not tolerate. At most recent visit she had proximal muscle weakness on exam, EMG ordered myopathy protocol and WNL. She has multiple evaluations of CK normal in the past. MUSK Ab negative 03/13. ACHR Ab checked and negative in 12/10, now showing equivocal in 04/13. Today she has continued proximal symptoms. She struggles with walking up the stairs, as well as hand weakness. She struggles with writing and grasping objects. She describes butterfly feeling in arms, unsure if she would describe as rippling. She has cramping of the muscles, primarily in the L leg. She states the cramps make her so anxious she goes to ER, and ativan relieves the cramps. We discuss this may be indicated, but I am not comfortable prescribing this. We can try hydroxyzine PRN for anxiety. She is following with Dr. Douglass for gastroparesis, and on IVIG. MUMTAZ Ab checked and elevated. We discuss this is more likely related to being on the IVIG. Her IVIG was recently increased to weekly under suspicion of stiff person syndrome. We discuss on exam she has no stiffness and generally normo reflexic other than slight hyporeflexia on biceps. She does have mild proximal weakness in the hips and hand grasp. I would appreciate insights from neuromuscular physician as to their thoughts on the proximal weakness and elevated MUMTAZ antibody. She also reports she is getting episodes of waves in my head which mimic her prior seizure prodrome. She is not losing consciousness. She remains on the trileptal for AED. She did have EMU monitoring in 2014 demonstrating sharp waves in L frontotemporal, and intermittent slowing L>R temporal. Would appreciate epilepsy insights on whether this may be a focal seizure vs seizure aura. Still with continued lightheadedness, discuss we need her to complete the autonomic. PLAN 1) EEG - See below 2) Consult to epilepsy - See below 3) No driving until seen by epilepsy - See below 4) Reordered: -Autonomic reflex with tilt - Not completed -QSART - Not completed 5) Consult to neuromuscular medicine PHYSICIAN only - See below 6) Hydroxyzine TID PRN Seen by neuromuscular, Dr. Rogers, 07/03/2022: IMPRESSION/PLAN: Episodes of leg>arm weakness that lasting for hours, with reduced sensation in legs, complicated by symptoms of difficulty in speaking and feeling of shortness of breath, responding to ativan treatment. Slightly increased AChR binding antibody, positive CRHIS and positive anti-MUMTAZ antibody History of POTS/small fiber neuropathy Normal neuromuscular examination. Normal routine EMG. Normal CPK. The weakness is episodic, not indicative of myopathy, peripheral neuropathy, motor neuron disease, and is also atypical for myasthenia gravis. To complete the workup, I will proceed with repetitive nerve stimulation. However, I must point out that the suspicion for MG is very low, and the equivocal AChR binding antibody is likely the result of IVIG treatment. During these episodes, she has paralysis (rather than muscle stiffness or rigidity). So far she only had one episode of leg muscle spasm that resolved spontaneously. There is no evidence of fasciculations, cramps, increased tone and hyperreflexia. From a neurology point of view, I see no clear evidence to support a diagnosis of stiff person syndrome. I explained to patient that anti-MUMTAZ antibody is non-specific and may indicate other disorders other than stiff person syndrome, and the positive result could also be results of her IVIG usage. These episodes could represent FND associated with panic attacks. Patient instructions: Proceed with RNS study. We will let patient know about result. EMU admission 07/14/2022-07/16/2022: Patient noted to have 1 typical events without EEG change. Please see separate video-EEG report for details. Prior to discharge, antiepileptic medications were discontinued . It was discussed with the patient that her episodes of a wave feeling , difficulty with speech, and feelings in the hands and jaw showed no changes on EEG and that they are not believed to be epileptic in nature. The patient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 Infarct 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 Anticoagulation Management Encounter Malnutrition of Mild Degree (Hcc) Attention to Ileostomy (Hcc) Postoperative Pain Postoperative Ileus (Hcc) Cvid (Common Variable Immunodeficiency) (Hcc) Recurrent Infections Enteropathy Cytopenia Right Upper Quadrant Abdominal Pain Nausea & Vomiting Transaminitis Intussusception (Hcc) H/O: Pituitary Tumor Generalized Anxiety Disorder History of Colectomy Chronic Insomnia Stage 2 Chronic Kidney Disease Nicotine use disorder, F17.2 Pots (Postural Orthostatic Tachycardia Syndrome) Somnambulism Somniloquy Sleep-Related Movement Disorder Malaise and Fatigue Gastroparesis 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 Current Functioning: -wake up at 9am and wakes in groggy pain and brain fog -hx of insomnia; notes she feels her mind is always racing with worry -used to enjoy cooking but limited energy and lack of interest -feels burnt out/notes caregiver strain associated with being her father primary source of support Medications: Current Outpatient Medications Medication Sig immune globulin, human,, IgG, (GAMMAGARD LIQUID) 10 % soln Inject 250 mL intravenously one time a week. propranolol ER (INDERAL LA) 60 mg 24 hr capsule TAKE ONE CAPSULE BY MOUTH ONCE DAILY ondansetron orally disintegrating (ZOFRAN ODT) 4 mg disintegrating tablet TAKE ONE TABLET BY MOUTH EVERY 8 HOURS NEEDED FOR NAUSEA VOMITING busPIRone (BUSPAR) 10 mg tablet Take 30 mg by mouth twice daily. 0.9 % sodium chloride (NACL 0.9%) infusion Inject 200 mL/hr intravenously continuous. 1L during IVIG infusions diphenhydrAMINE (BENADRYL) 25 mg capsule Take 1 capsule by mouth as directed. Use as directed. Current Facility-Administered Medications Medication Dose Route Frequency acetylcholine 10% solution - cchs compounding 20 mL IRRIGATION ONE TIME acetylcholine 10% solution - cchs compounding 20 mL IRRIGATION ONE TIME Ms. Barr reports significant depressive symptoms in the past month, including intermittent poor memory, intermittent poor concentration, intermittent feelings of hopelessness, intermittent feelings of helplessness, anhedonia, irritability, self-criticism, appetite disturbance, and sleep disturbance. Upon direct questioning, she denies suicidal ideation, plan, intent, or attempts. Ms. Barr reports significant anxiety symptoms in the past month, including generalized anxiety, nightmares, flashbacks, exaggerated startle response, and panic attacks. Impressions Ms. Barr is a 36 year old female who presents with a ~2 years history of neurological symptoms including sleep disturbance, weakness, nonepileptic seizures, swallowing problems, cognitive dysfunction including memory and concentration problems, and worsened anxiety. Currently, patient described significant MH concerns related to depression, anxiety, and trauma, which she is presently treating via intermittent therapy with a counselor in her local community. Social support is limited. The drug and alcohol use screening performed as part of this evaluation does not suggest the need for further substance use evaluation or treatment. It is recommended that the patient continue follow-up with a local psychologist specializing in trauma focused therapy given current active trauma symptoms. We discussed the benefits of engaging in consistent mental health care in order to assist in managing caregiver strain and regulating ANS by means of practicing stress management, and relaxation training including progressive muscle relaxation, autogenic training, diaphragmatic breathing and imagery/visualization. we will coordinate a virtual session in 6-8 weeks to assess her progress in establishing MH care. 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 Staff, [facility] documented in this encounter [facility] 10-18-2022 History of Present illness Narrative [facility] - FOLLOW UP EVALUATION Lizy Soria DO [address] [address] Dear Lizy Soria DO: I had the pleasure of seeing Ms. Barr for follow-up today. As you know she is a 37 year old right-handed female with a history of functional neurological disorder since 2020. Subjective Interval History: Patient was previously seen by Dr. 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 Patient is referred here for FND evaluation. 2019 - IVIG for CVID infusion stopped due to insurance reasons. During that time, she developed sudden onset of multiple neurological symptoms: Total leg paralysis suddenly causing falling down the stairs Extreme shaking- felt like seizure, but not epileptic based on EEG Hands stop working Intermittent speech halt Motor: Weakness: generalized at baseline, difficult going up/down stairs. 2 episodes of bilateral leg paralysis Gait: independent, however has difficulty walking intermittently Abnormal movements: extreme shaking intermittently, improved with propranolol. Seizure-like episodes: body stiffening/shaking, 3 times a week - improved to once a week after taking diazepam prescribed by family doctor Sensory: none Pain: pain in ankles and calves from stiffness Speech: intermittent speech halt during seizure-like episodes Cognition: memory getting worse, trouble remembering names, need to write reminders. Still drive. Dizziness: lightheadedness, has low BP sometimes GI: had 4 procedures on the bowels including total colectomy, gastroparesis Bladder: urinary urgency Mood: panic attack, generalized anxiety, long history of depression since age 11. Restarting psychology treatment due to disability requirement, has tried various antidepressants, very sensitive to medications, currently on buspar for anxiety. In terms of workup: She has seen neurologists specializing in epilepsy, MS, and neuromuscular. In terms of workup: EMU stay: no epileptiform discharges associated with the spells. Diagnosed with PNES Blood work: low titer serum MUMTAZ antibody Brain MRi wwo contrast (10/11/2021): unremarkable C spine MRI wwo contrast (10/11/2022): unremarkable Movement Disorders Medications Schedule - as of the start of the visit: Medications Questionnaires: ALLERGIES Allergen Reactions Antidepressants [Se* Other: See Comments It knocks me out. Rondec [Bromphenira* crying for 12 solid hours-per mom Current Outpatient Medications Medication Sig diazePAM (VALIUM) 5 mg tablet Take 1 tablet by mouth twice daily for 30 days. sodium chloride 1,000 mg TbSO Take 1 tablet by mouth once daily. immune globulin, human,, IgG, (GAMMAGARD LIQUID) 10 % soln Inject 250 mL intravenously one time a week. propranolol ER (INDERAL LA) 60 mg 24 hr capsule TAKE ONE CAPSULE BY MOUTH ONCE DAILY ondansetron orally disintegrating (ZOFRAN ODT) 4 mg disintegrating tablet TAKE ONE TABLET BY MOUTH EVERY 8 HOURS NEEDED FOR NAUSEA VOMITING busPIRone (BUSPAR) 10 mg tablet Take 30 mg by mouth twice daily. 0.9 % sodium chloride (NACL 0.9%) infusion Inject 200 mL/hr intravenously continuous. 1L during IVIG infusions diphenhydrAMINE (BENADRYL) 25 mg capsule Take 1 capsule by mouth as directed. Use as directed. Current Facility-Administered Medications Medication Dose Route Frequency acetylcholine 10% solution - cchs compounding 20 mL IRRIGATION ONE TIME acetylcholine 10% solution - cchs compounding 20 mL IRRIGATION ONE TIME Objective Vital Signs: LMP 08/05/2022 (Approximate) Orthostatic Vitals: None for this encounter Patient's last menstrual period was 08/05/2022 (approximate). There is no height or weight on file to calculate BMI. General Physical Examination: General: Awake, alert, interactive, no acute distress, good nutritional status, normal development, well-kept Only a limited general examination was done. General Neurological Examination: Neurological Exam Mental Status Awake, alert and oriented to person, place and time. Recent and remote memory are intact. Speech is normal. Language is fluent with no aphasia. Cranial Nerves CN II-XII grossly intact, except as otherwise noted. Motor Normal muscle bulk throughout. Normal muscle tone. The following abnormal movements were seen: Strength is 5/5 in all four extremities except as noted. Mild tremor in both hands with posture, fine amplitude, fast frequency, distractible Giveaway weakness in BUE . Sensory Sensation is intact to light touch, pinprick, vibration and proprioception in all four extremities. Reflexes Right Left Brachioradialis 2+ 2+ Biceps 2+ 2+ Patellar 2+ 2+ Achilles 2+ 2+ Coordination [id number], rapid alternating movements and [id number] normal bilaterally without dysmetria. Movement Disorders Scales Performed: Simplified functional movement disorder rating scale (S-FMDRS): Regions Severity Duration Subtotal Face/tongue 0 0 0 Head/neck 0 0 0 AMBER/shoulder 1 1 2 RUL/shoulder 1 1 2 Trunk/abdomen 0 0 0 LLL 1 1 2 RLL 1 1 2 Function Gait 1 1 2 Speech 0 0 0 Total 5 5 10 Scoring Severity Duration 0 None None of the time 0 1 Mild Occasionally 1 2 Moderate Frequent 2 3 Severe Constant 3 Pertinent Studies EMG (07/14/2022) Extensive electrodiagnostic examination of the lower and upper extremities, and repetitive nerve stimulation testing of the facial, spinal accessory and median nerves reveals no evidence of a defect of neuromuscular transmission like that seen in myasthenia gravis. MRI B and C spine wwo contrast (10/11/2021) No evidence of demyelination or acute demyelinating lesion in the brain and cervical spine. No evidence of demyelination or acute demyelinating lesion in the brain and cervical spine. Assessment and Plan: Assessment Ms. Barr is a right-handed 37 year old year old female with Sudden onset multiple neurological symptoms involving paralysis, extreme shaking, speech halt, seizure-like episode, pain in legs, memory issues, lightheadedness since 2019 following discontinuation of IVIG for CVID treatment due to insurance reasons. Patient has seen multiple neurologist specialist in epilepsy, MS, neuromuscular, and movement clinic. She has had a EMU admission with findings of nonepileptic spells, low titer serum mumtaz antibody that was felt to be nonspecific, brain and cervical spine which were felt unremarkable. Patient was found to have functional neurologic disorder by Dr. Johnson, therefore referred to FND clinic. Neurological exam today notable for mild tremor in both hands with posture, fine amplitude, fast frequency, distractible, giveaway weakness in BUE. The following are the current problems noted and addressed during this visit: Functional neurological symptom disorder with weakness or paralysis Plan 10/18/2022 Visit: provided education on FND diagnosis and treatment strategy Follow-up with FMD-psychology recommendation which is to continue follow-up with local psychologist specializing in trauma focused therapy given current active trauma symptoms, and follow-up virtually with Dr. Fernandez in 6 to 8 weeks to assess her progress Follow-up with FMD-PT recommendation which is to start traditional physical therapy to address deconditioning impairment, and start FMD specific PT locally if symptoms do not improve Follow-up with FMD-OT and ST recommendations Interested in clinical research? Not currently Updated Movement Disorders Medication Schedule: Medications Return at or around: 01/18/23 Level of service : 62340 (40-54 min). Time spent 54 min on the day of service, which included preparing to see the patient, [id number] patient care, completing clinical documentation, obtaining and/or reviewing separately obtained history, performing a medically appropriate examination, and counseling and educating the patient/family/caregiver. Thank you for allowing me to be part of the clinical care of this patient! I look forward to continued participation in the patient s care with you. Please do not hesitate to call with any questions. Sincerely, Muna Lackey MD documented in this encounter [facility] 10-18-2022 Note [facility] 10-18-2022 Note [facility] 10-18-2022 History of Present illness Narrative Episode Visit Count: 1 Therapist That Will Accept/Oversee The Plan Of Care: Bernarda Hernandez PT Start of Care Date: 10/18/22 Onset Date: 08/10/22 Plan of Care Certification Date: 10/18/22 Next Certification Due Date: 10/18/22 Patient Identified by Name and Date of : Yes REHABIL[facility]ATION AND SPORTS THERAPY PHYSICAL THERAPY EVALUATION PLAN OF CARE: Assessment: Ben Barr presents with diagnosis of FND that interferes with rising from a chair, standing, walking, stair negotiation, heavy exertion, physical activities, recreational activities, sleeping, working, driving . Additionally she has a complex past medical history including autoimmune disorders and POTS. She presents with impairments in balance, gait, independence in exercise, overall function, range of motion, symptom management, and functional performance testing indicates imbalance with possible increased fall risk. Patient did not complete the PROMIS (Patient Reported Outcome Measures Information System). Prognosis for therapy is Fair due to: multiple co- morbidities, Prognosis may be improved by within-session changes, good support system/ coping skills. Gait quality was somewhat distractible with diverted attention techniques. She is open to the diagnosis of FND and is interested in treatment strategies for functional symptoms. However she does not live close enough to this area to return on a regular basis and prefers to follow-up closer to home. Of note, she does have restricted lower extremity range of motion and is overall limited in her mobility related to other comorbid conditions. Feel she would also benefit from traditional physical therapy to address range of motion and deconditioning impairments. Recommend she start FND specific physical therapy locally but if her symptoms do not improve feel she would benefit from returning to this location or possibly another closer [facility] location with FND specific physical therapy. Ideally, traditional physical therapy techniques to address range of motion and deconditioning could be incorporated into FND specific physical therapy. She will benefit from skilled therapy services to meet the goals established for this plan of care as noted below. Goals for Episode of Care: created on 10/18/22 through 10/18/22 Patient will demonstrate 3-4 diverted attention tasks for symptom management. Met. Patient Goals: Uncertain due to not having a formal diagnosis yet. Would like to regain strength. Planned Interventions, Frequency, and Duration: Current Frequency: 1 visit Duration: 1 visit Total Number of Visits Planned: 1 Planned Treatment Interventions: Neuromuscular re-education (73150), Gait Training (40818), Patient/Family/Caregiver Education Patient demonstrates good understanding of plan of care and treatment. The above goals and plan of care were discussed and agreed upon by patient/family. SUBJECTIVE: FND Symptom onset and progression: 2020 - While walking down stairs, experienced first episode of sudden onset of bilateral total lower extremity paralysis, upper body was shaking. Thought she was going to have a seizure but did not. Has had two episodes of upper body shaking and lower body paralysis. Both episodes improved with Ativan. List of current symptoms: Episodes of Total paralysis of both legs. When she gets an episode, gets a wave through my head that feels like she will have a seizure. More frequently experiences: Also both hands/wrists stop working, legs will get shaky (unable to go up/down stairs). Speech issues - goes to talk and nothing comes out. Ankle/feet/calves - getting worse all the time. Describes stiffness/pain/weakness in both ankles. Notices difficulty standing and walking after sitting 15 minutes or longer. Head pressure. Neck/shoulders are constantly tight. Triggers: Anxiety, fatigue. Relieving factors: Diazepam, propranolol has improved shaking. Ankles/feet/calves improve with movement. Hands/wrists - improve with time. Reports overall weakness over the last couple of years. Patient Goals: Uncertain due to not having a formal diagnosis yet. Would like to regain strength. Functional Limitations: rising from a chair, standing, walking, stair negotiation, heavy exertion, physical activities, recreational activities, sleeping, working, driving Prior Level of Function: Independent without limitations Relevant History Past Relevant Medical Conditions: Depression, Anxiety, Immune Disease, Thyroid Disease, Anemia, Kidney Problems, Falls (POTS) Employment: Unemployed (currently working on application for medical disability due to multiple health concerns including autoimmune disorders.) Recreation / Current Exercise: Stretching, walks the dog almost daily. Hobbies / Interests: Cooking - not as enjoyable due to symptoms. Home Environment Patient Lives With: Spouse Assistance Available: PRN Intake Information: Prescription present Previous Treatment: Self prescribed exercises Falls Interview: Two or more falls in the last year Falls Intervention: Falls Specific Functional Performance Tests Pain: Pain Pain Level: 2 Pain Location: Ankle - Right, Ankle - Left, Foot - Right, Foot - Left Description: Aching, Stiffness (Weakness) Post Treatment Pain Post Treatment Pain Level: No Change PROMIS Scales Higher is Better 04/23/2021 Phys Func - Score 43 (mild dysfunction) Phys Func - Percentile 24 % T-scores: mean of general population = 50. 5 points is clinically meaningfully difference Percentiles provide an indication of how the patient's score ranks in relation to the general population. Higher percentile rankings indicate better function/quality of life. 50th percentile is the average of the general population and indicates half of respondents had a worse score. OBJECTIVE MEASURES WITH LEVEL OF FUNCTION: ROM: Bilateral ankle dorsiflexion = limited bilaterally. Gait Gait: Independent Gait Device: None Gait Observation: Appears mildly antalgic, weightbearing primarily on both forefeet rather than through her entire foot. Functional Performance Test Results Timed Up and Go (sec): 14.07 sec Timed Up and Go Cognitive (sec): 16.07 sec Timed Up and Go Cognitive Comments: Naming months of the year in reverse order. Timed Up and Go Manual Right (sec): 16 Timed Up and Go Manual Left (sec): 14.74 Education: Education Learning Preferences: Demonstration, Explanation, Performance, Printed Materials Barriers: None Learning/educational needs: Plan of Care, Home exercise program Education Provided: Yes, see treatment interventions for education provided Education Provided To: Patient, Family Education Mode/Type: Demonstration, Explanation/Discussion, Performance Response to Education/Teach Back: States/Identifies, Return Demonstration, Requires Review/Additional Education TREATMENT: PT Treatment Interventions: Neuromuscular Re-Education Evaluation Neuromuscular Re-Education: 1: Patient education: FND, role of PT in treatment of FND symptoms, diverted attention training. 2: Diverted attention training techniques as follows: 3: - Varied gait patterns: Simulating kicking leaves, walking on ice, alternating with normal gait pattern. 4: - Cognitive strategies: Naming states beginning with the same letter 5: - Copying movement of therapist hands with her own hands. 6: Patient/family education: Discussed cueing her could do to assist her through symptom management. Skilled Intervention: Skilled judgment used to assess appropriate program for balance and coordination activity. Correct performance of home program was facilitated with verbal and visual cueing. Patient education as noted. Billing * Evaluation Moderate Complexity: 1 Unit Neuromuscular Re-Education Treatment Minutes: 15 Skilled Treatment Time Minutes (timed and untimed codes): 45 Total Session Time (minutes): 45 Session Start Time : 1215 Session Stop Time : 1300 Bernarda Hernandez PT documented in this encounter [facility] 10-18-2022 Note [facility] 10-18-2022 History of Present illness Narrative [facility] SPEECH LANGUAGE PATHOLOGY CONSULT SPEECH-LANGUAGE EVALUATION October 18, 2022 PLAN OF CARE UPDATE: Name: Ben Barr : October 18, 2022 CC#: [id number] Referring physician: Bebeto Perry Date of Onset: 02/19/2019 Start of Care: 10/18/2022 Certification Period: 10/18/2022 to 12/17/2022 Planned Interventions, Frequency, and Duration: Continue skilled speech therapy 1 x week or every other week for 2-5 sessions Treatment session #: 1 Time: 50 minutes IMPRESSIONS: Normal speech. Mild cognitive-communication symptoms related to memory and attention, skills, described as brain fog by patient. Recommend further outpatient speech therapy to further assess and provide education / training with cognitive-communication strategies. PROGNOSIS/REHAB POTENTIAL: Good Diagnosis for Treatment: Cognitive communication disorder GOALS: created on October 18, 2022 -Long-term goal(s): Improve cognitive-communication skills -Short-term goals: Further assess cognitive-communication skills via RBANS or [place]'s Cognitive Examination - PASHA-III or similar Further probe breakdowns in cognitive-communication skills (related to memory / attention) impacting her daily function and set appropriate treatment goals. Education RE: cognitive-communication strategies related to Functional Movement Disorder (FMD) / Functional Neurological Disorder (FND), home exercise program. RECOMMENDATIONS: Outpatient speech therapy - patient would like to pursue speech therapy closer to home. Saroj Booker M.S. [facility] Clinical Speech Pathologist Pager: [phone] Voicemail: [phone] DIAGNOSIS/HISTORY: Ben Barr is a 36 year old female referred by Bebeto Perry for evaluation and treatment of speech-language and cognitive communication skills. Accompanied by her . Lives in [facility] (near [place]). No prior speech therapy. 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) Hypogammaglobulinaemia, unspecified Hypothyroid Intussusception (HCC) as child Low back pain PMS (premenstrual syndrome) POTS (postural orthostatic tachycardia syndrome) POTS (postural orthostatic tachycardia syndrome) Thrombocytopenia (HCC) Tobacco abuse Vitamin D deficiency Patient Stated Goals/ Problems: - onset of symptoms when couldn't get her treatments 2019 - has a movement disorder, being treated for stiff person syndrome - episodes used to happen every single day a lot (about a year ago). Now on medication and somewhat less frequent. Speech / hands / wrist episodes occur about 1 x day. - speech: she gets a wave in my head and can't talk during episodes - swallowing: I just can't do it, even my own spit, all of a sudden I cannot swallow , comes and goes mostly at night time. - my memory is getting worse and worse , others have to repeat information, - brain fog all day, more in the morning than at night time Pt is identified by name and date: Yes PAIN: ankles and feet - 1 or 2 out of 10 pain. More the weakness EDUCATION HISTORY: Highschool graduate and Associate's degree in [employer] studies in 2017. 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 Always had trouble concentrating in school. School was very hard and I just slept , attributes her school issues with medical issues being undiagnosed. Did get diagnosed with ADD. Has generalized anxiety disorder - I can't shut my brain off. OCCUPATION: Recently applied for disability. 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 VISION: Wears glasses for driving, still getting use to them HEARING: Appeared functional in a quiet room SOCIAL ENGAGEMENT / INTERESTS: - such a huge depression for a lot of years - used to love cooking - walks the dog - watches tv - kids: 2 kids (14 and 15 years) BEHAVIORAL OBSERVATIONS: Alert DYSPHAGIA: Complaints of dysphagia - mainly at night, just can't swallow , dysphagia with eating in the past but currently is resolved. Would gag food back up and make her sick. Now eats regular foods and thin liquids. Avoids certain meats (thick meat). ORAL MECHANISM EVALUATION - Not assessed. However, oral-motor skills appeared normal based on speech production and observation of spontaneous oral-motor movements. TESTS ADMINISTERED: Informational interview and Non-standardized evaluation SPEECH PRODUCTION Articulation: Within Functional Limits Intelligibility: Within Functional Limits Vocal Quality: Within Functional Limits Vocal Intensity: Within Functional Limits Rate / Prosody: Within Functional Limits Diadochokinetic rate: /pa/= 35 repetitions in 5 seconds (within normal limits =25-30) /ta/= 35 repetitions in 5 seconds (within normal limits =25-30) /ka/= 30 repetitions in 5 seconds(within normal limits =25-30) /pataka/= 11 repetitions in 5 seconds (within normal limits =10) Sustained phonation (Norm Female=15-25 seconds / Norm Male =25-35 seconds): 11 seconds, then started laughing, Speech sample, paragraph level, oral reading Grandfather Passage (129 words, 169 syllables):40 seconds 193 word per minute, normal rate COMMENTS: Speech perceived as normal. Patient and agree that her speech was normal during today's session. Speech issues only occur during her seizure-like, movement disorder episodes. EXPRESSIVE AND RECEPTIVE LANGUAGE: AUDITORY COMPREHENSION Conversation Level: Within functional limits READING COMPREHENSION No issues with reading. But has issues with retaining information she read. VERBAL EXPRESSION Conversational Discourse: Within functional limits WRITTEN LANGUAGE No issues reported. COGNITIVE COMMUNICATION: SUBJECTIVE COGNITIVE COMMUNICATION SYMPTOMS: MEMORY: Long-term memory: Impaired- trouble remembering lots from her childhood Recent memory (day to day activities / events, appointments): Impaired - I have to put everything in my calendar , its bad per . Will forget something 10 minutes later. Misplacing items:Impaired - constant , won't remember where she put something Remembering where driving: Intact when driving locally, trouble driving around [place]. Uses GPS strategies. EXECUTIVE FUNCTION / ATTENTION: Managing finances: Intact - puts in the calendar, email reminders, needs the strategies she is using. Attention / concentration: Impaired Medication management:Impaired and Use of pill box, doesn't remember if she took it or didn't take it. 2 x day. More trouble remembering AM meds, Time management: Intact - I'm pretty good with time management Initiative (follow-through with to-do list / daily tasks): Intact - does depend on the day Work-related tasks: Not applicable Self-implemented strategies: Reported using many strategies including writing information down, use of calendar, use of reminders / alerts on her phone, GPS, etc. PRAGMATICS: Within functional limits OUTCOME MEASURES: Multifactorial Memory Questionnaire (MMQ) MMQ Test Date Raw Score T-Score Interpretation of T-Score (range) Memory Mistakes October 19, 2022 34 37 Below average Memory Strategies October 19, 2022 Not assessed Not assessed Not assessed How I feel about my memory October 19, 2022 Score of 7 on front page, did not complete 2nd page of questions T-Score Interpretation T-score range Interpretation Below 20 Very low 20-29 Low 30-39 Below average 40-60 Average 60-70 Above average 71-80 High Above 80 Very high Satisfaction scale. Individuals with high scores on this scale are generally quite satisfied with their memory abilities. The lower the score, the worse one feels about his or her memory. Ability scale. Individuals with high scores on this scale have a better subjective impression of their memory capabilities than do those with lower scores. Strategy scale. Higher scores on this scale indicate a greater reported frequency of use of memory aids and strategies relative to lower scores. PATIENT EDUCATION (provided to patient and ): Results and recommendations, Plan of care, Patient/family goals for treatment, and Informational handouts - Functional Cognitive Disorder Factsheet via web link, Cognitive-communication strategies. Saroj Booker M.S., [facility] Clinical Speech Pathologist Pager: [phone] Voicemail: [phone] documented in this encounter [facility] 10-18-2022 History of Present illness Narrative Episode Visit Count: 1 Therapist That Will Accept/Oversee The Plan Of Care: Isabella Amato Start of Care Date: 10/18/22 Onset Date: 10/18/22 Plan of Care Certification Date: 10/18/22 Next Certification Due Date: 12/17/22 Patient Identified by Name and Date of : Yes [facility] REHABILITATION AND SPORTS THERAPY OCCUPATIONAL THERAPY EVALUATION PLAN OF CARE: Assessment: Ben Barr presents with chief complaint of functional neurological disorder that interferes with sleeping, walking, bending, heavy exertion, lifting, cleaning, cooking, pushing, carrying . She presents with impairments in ADL's, balance, coordination, overall function, sensation, strength, stress management, and symptom management. PROMIS (Patient-Reported Outcomes Measurement Information System) scores were reviewed and physical function domain identified as a rehabilitation concern. Prognosis for therapy is Good due to: current objective clinical presentation, good support system/ coping skills . She will benefit from skilled therapy services to meet the goals established for this plan of care as noted below. Goals for Episode of Care created on 10/18/22 through 12/18/22 Patient will complete HEP at Modified [place] level. Patient will decrease pain rating by 2 points to 0/10 to meet minimal clinical important difference for numeric pain rating scale. Patient will report improved efficiency with sleep and sleep hygiene. Patient will report a good understanding of diagnosis and OT recommendations for progression of program. Patient will demonstrate independence with ongoing home recommendations/exercise program throughout therapy plan of care. Patient will identify 3 coping strategies for anxiety and depression. Self Care Patient will understand and be able to incorporate appropriate body mechanics and activity pacing to engage in self care activities with greater efficiency and decreased pain. Home management Patient will understand and be able to incorporate appropriate body mechanics and activity pacing to engage in Home Management tasks, such as: Laundry(carrying) , leaning, shopping, and cooking with greater efficiency and decreased pain. Patient Goals: Improve symptoms, improve pain, be able to sleep Planned Interventions, Frequency, and Duration: Current Frequency: 2x/week (Pt to pursue OT closer to home at this time) Duration: 4 weeks Total Number of Visits Planned: 8 Planned Treatment Interventions: Therapeutic exercise (01538), Therapeutic activities (67517), Manual therapy (38606), Neuromuscular re-education (32053), Self-long term management (06170), Sensory Integration (44812), Physical performance test, Functional training, Group Therapy (46768), Patient/Family/Caregiver Education PLAN FOR NEXT VISIT: FND based treatments- sensory training for grounding, pain neuroscience education, activity pacing Patient demonstrates good understanding of plan of care and treatment. The above goals and plan of care were discussed and agreed upon by patient/family. SUBJECTIVE: referral for FND clinic 2 years ago, legs went completely paralyzed Hands won't work Can't talk, words won't come out Nonepileptic seizures? Functional Limitations: sleeping, walking, bending, heavy exertion, lifting, cleaning, cooking, pushing, carrying Prior Level of Function: Independent without limitations Patient Goals: Improve symptoms, improve pain, be able to sleep Intake Information: Prescription present Previous Treatment: (Infusions for IVIG) Falls Interview: Two or more falls in the last year Relevant History Past Relevant Medical Conditions: Seizures, Anxiety (EEG showed non epilyeptic seizures, common immune deficinecy (weekly IVIG), Lupus) Right or Left Handed: Right Employment: Unemployed (Applied for disability) Pain: Pain Pain Level: 1 Pain Location: Ankle - Right, Ankle - Left, Foot - Left, Foot - Right Description: Aching Frequency: Continuous Detailed Pain Score: Yes Worst Pain Level: 2 Post Treatment Pain Post Treatment Pain Level: No Change PROMIS Scales Higher is Better 04/23/2021 Phys Func - Score 43 (mild dysfunction) Phys Func - Percentile 24 % T-scores: mean of general population = 50. 5 points is clinically meaningfully difference Percentiles provide an indication of how the patient's score ranks in relation to the general population. Higher percentile rankings indicate better function/quality of life. 50th percentile is the average of the general population and indicates half of respondents had a worse score. OBJECTIVE MEASURES WITH LEVEL OF FUNCTION: Mood: Pleasant and cooperative (Hx of MUMTAZ, panic attacks, depression; trauma) Posture / Alignment Posture: Forward head Communication Comprehension: Complex auditory and visual communication Thought Process: Logical, coherent thought form Expression: Expresses complex ideas clearly and fluently Conversation: Appropriate thought content Movement Description Movement Impairment(s): Freezing Freezing Comments: Intermittently has periods of freezing, inability to move or talk. Some tremulous movements Sensory Sensory Deficits: (Numbness and tingling present) UE AROM R UE AROM: WFL L UE AROM: WFL Current Activities Of Daily Living Feeding: Modified Independent Grooming: Modified Independent Bathing Upper Body: Modified Independent Bathing Lower Body: Modified Independent Dressing Upper Body: Modified Independent Dressing Lower Body : Modified Independent Toileting: Modified Independent Additional Activities of Daily Living: All dependent on pain level Instrumental Activities of Daily Living Cooking: Minimal Assistance Cleaning: Moderate Assistance Laundry: Moderate Assistance Sleeping: Modified Independent (Difficulty sleeping, high amounts of anxiety tied to sleep (trauma occurred at night)) Current Functional Mobility Functional Mobility: Modified Independent Functional Mobility Device: None Functional Mobility Comments: Slow gait due to pain/stiffness Education: Education Learning Preferences: Demonstration, Explanation Barriers: None Learning/educational needs: Lifestyle changes, Health promotion, Safety, Home exercise program, Plan of Care, Posture, Body Mechanics Education Provided: Yes, see treatment interventions for education provided Education Provided To: Patient, Family Education Mode/Type: Demonstration, Explanation/Discussion, Teach Back Response to Education/Teach Back: Requires Review/Additional Education TREATMENT: OT Treatment Interventions : Neuromuscular Re-Education Evaluation Neuromuscular Re-Education: 1: Education on plan of care, role of OT and goals of care 2: Education on FND- hardware vs. software analogy, brain-body connection 3: Education on sensitive nerves 4: -Patient educated on the concept of the nervous system as the bodies alarm system, and the role of nociception to warn the body of danger. Peripheral nerve sensitization, hyperalgesia and allodynia were explained using metaphors to promote deep learning. 5: Discussed the connection between pain and emotions 6: Provided Breathe lee ann to promote diaphragmatic breathing and relaxation Skilled Intervention: Skilled judgment used to assess appropriate program for balance and coordination activity. Patient education as noted. Billing * Evaluation Low Complexity: 1 Unit Neuromuscular Re-Education Treatment Minutes: 25 Total Treatment Time Minutes (timed/untimed): 45 Session Start Time : 1000 Session Stop Time : 1045 Isabella Amato OT/Tonya documented in this encounter [facility] 10-16-2022 Note [facility] 10-16-2022 History of Present illness Narrative I had the pleasure of seeing Ms. 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 There has been a 1-week lapse in treatment. - Gammagard 20 g IVIG weekly - We will follow up with insurance re: PA and delivery of IVIG - Follow up with Dr. Kiser as scheduled on 10/16/22, or sooner if needed Today they state she is still having a lot of trouble She is having fatigue, numbness, falls Her legs can be numb and don't work She is on IVIG weekly--no major infections It is unclear if the IVIG does help the neurologic symptoms -may be for a day or 2 post infusion Current Outpatient Medications Medication Sig propranolol ER (INDERAL LA) 60 mg 24 hr capsule TAKE ONE CAPSULE BY MOUTH ONCE DAILY immune globulin, human,, IgG, (GAMMAGARD LIQUID) 10 % soln Inject 200 mL intravenously one time a week. predniSONE (DELTASONE) 10 mg tablet Take 1 tablet by mouth as directed. 2 tabs for 1 week, 1 tab for 1 week, 1/2 tab for 1 week ondansetron orally disintegrating (ZOFRAN ODT) 4 mg disintegrating tablet TAKE ONE TABLET BY MOUTH EVERY 8 HOURS NEEDED FOR NAUSEA VOMITING fluticasone (FLONASE) 50 mcg/actuation nasal spray Use in the nose. omeprazole (PRILOSEC) 40 mg capsule Take 40 mg by mouth once daily. busPIRone (BUSPAR) 10 mg tablet Take 30 mg by mouth twice daily. 0.9 % sodium chloride (NACL 0.9%) infusion Inject 200 mL/hr intravenously continuous. 1L during IVIG infusions diphenhydrAMINE (BENADRYL) 25 mg capsule Take 1 capsule by mouth as directed. Use as directed. Current Facility-Administered Medications Medication Dose Route Frequency acetylcholine 10% solution - cchs compounding 20 mL IRRIGATION ONE TIME acetylcholine 10% solution - cchs compounding 20 mL IRRIGATION ONE TIME Allergies As of Date: 10/16/2022 Allergen Noted Reaction ANTIDEPRESSANTS [SEROTONIN 5HT-3 *10/06/2010 Other: See Comments HUNTER [BROMPHENIRAMINE-PSEUDOEPH*07/30/2008 Fully Assessed 07/25/2022 Past Medical History: ACTIVE PROBLEM LIST Other Vitamin B12 Deficiency Anemia Abdominal Pain, Generalized Pituitary Tumor Hypothyroidism Tobacco Abuse Low Back Pain Depression Anxiety Pms (Premenstrual Syndrome) Dysautonomia Hypogammaglobulinemia (Hcc) Recurrent Convulsions (Hcc) Recurrent Vomiting Abdominal Pain Summary Syncope and collapse Portal Vein Thrombosis Liver Infarct 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 Anticoagulation Management Encounter Malnutrition of Mild Degree (Hcc) Attention to Ileostomy (Hcc) Postoperative Pain Postoperative Ileus (Hcc) Cvid (Common Variable Immunodeficiency) (Hcc) Recurrent Infections Enteropathy Cytopenia Right Upper Quadrant Abdominal Pain Nausea & Vomiting Transaminitis Intussusception (Hcc) H/O: Pituitary Tumor Generalized Anxiety Disorder History of Colectomy Chronic Insomnia Stage 2 Chronic Kidney Disease Nicotine use disorder, F17.2 Pots (Postural Orthostatic Tachycardia Syndrome) Somnambulism Somniloquy Sleep-Related Movement Disorder Malaise and Fatigue Gastroparesis Positive Mumtaz Antibody Seizure-Like Activity (Hcc) REVIEW OF SYSTEMS GENERAL: Fatigue HEENT: No changes in hearing or vision, no nose bleeds or other nasal problems NECK: Negative for lumps, goiter, pain and significant neck swelling RESPIRATORY: Negative for cough, hemoptysis, wheezing, COPD, dyspnea or shortness of breath CARDIOVASCULAR: Negative for chest pain, leg swelling, hypertension, CHF or palpitations GI: No nausea, vomiting, or diarrhea MUSCULOSKELETAL: Negative for joint pain or swelling, back pain or muscle pain SKIN: Negative for lesions, rash, and itching HEMATOLOGY/LYMPHOLOGY: Negative for prolonged bleeding, bruising easily or swollen nodes ENDOCRINE: Negative for cold or heat intolerance, polyuria, polydipsia and goiter NEURO: SEE HPI The remainder of the review of systems is negative. PHYSICAL EXAMINATION: Blood pressure 125/85, pulse 74, height 154.1 cm (5' 0.67 ), weight 70.4 kg (155 lb 1.6 oz), last menstrual period 08/05/2022. APPEARANCE: cooperative,in no acute distress,alert EYES: PERRLA, conjunctiva and sclera normal EARS: External ears normal. Canals clear. TM's normal. NOSE/SINUS: Nares normal. Septum midline. Mucosa normal. No drainage or sinus tenderness. OROPHARYNX: Lips, mucosa, and tongue normal. Teeth and gums normal. Oropharynx normal. THROAT: normal,no erythema NECK: Neck supple, no adenopathy; thyroid symmetric, normal size, no bruits. HEART: RRR with normal S1 and S2 ,no murmurs, no gallops, no JVD appreciated LUNG: clear to auscultation LYMPH NODES: No cervical lymphadenopathy, No supraclavicular lymphadenopathy, No axillary lymphadenopathy., and No inguinal lymphadenopathy. ABDOMEN: bowel sounds normoactive,no bruits, soft, nontender,,without organomegaly or palpable masses EXTREMITIES: Extremities normal,No deformities,No skin discoloration,No edema,Normal pulses bilaterally. NEURO: Awake, alert and oriented x 3,Cranial nerves II-XII grossly intact,Reflexes symmetrical,Normal gait,No involuntary motions. SKIN: Skin color, texture, turgor normal. No rashes or lesions.. LABS: Labs and films from outside facility reviewed today. A/P: Complex All went downhill after IVIG was stopped by insurance In April had unexplained cytopenia Now with many neurologic symptoms Had to file for disability (D83.9) CVID (common variable immunodeficiency) (HCC) (primary encounter diagnosis) Comment: on IVIG. No SBIs Plan: Doing well infection cr (B99.9) Recurrent infections Comment: none recently (R53.83) Other fatigue Comment: coinciding with many neurologic symptoms Seizures ruled out ?Stiff person symptoms Will try 25g weekly Plan: will see Neurology F/U: 4 mos or prn sooner Geovanni Kiser MD PhD documented in this encounter [facility] 10-05-2022 Note [facility] 10-05-2022 History of Present illness Narrative Images from the original note were not included. [employer] Test Report - [id number] Test start date: 09/25/2022 10:58 AM Spa Host: lobo Interpretation date: 10/05/2022 Ordering physician: Frederic Douglass DO Referring physician: Patient Information Name: Ben Barr. ID: [id number] date: 1985 Height ft. in.: 5' 1 Gender: Female Weight lbs.: 135 Insurance Information Insurance carrier: Insurance group: Symptoms/Reason for Referral None Additional Notes Additional Notes Prior GI Procedures, Allergies, Medications GI procedures: None Implanted devices: None Allergies: None Medications: None Study Comments Capsule ingestion notes: None Post-test notes: None Test Statistics Transit Times (h:min) GET: 38:35 ? 4 h suggests delayed gastric emptying. SBTT: 4:43 Normal: 2.5 - 6 h CTT: 2:44 > 59 h indicates delayed colonic transit. SLBTT: 7:20 > 64 h indicates delayed combined bowel transit. WGTT: 45:56 Normal: < 73 h Gastric pH High: 30.5 Low: 0.3 Range annotations (h:min) Start: 38:08, End: 38:38 30 min. prior Contractions/min: 0.23 Mean amplitude: 30.83 Motility index: 25.62 Start: 38:38, End: 39:08 30 min. post Contractions/min: 0 Mean amplitude: 0 Motility index: 0 Point annotations (h:min) Interpretations and Recommendations Interpretations Observed pH baseline below 4 in the stomach., No evidence of additional meal 6 hours into test., s/p total colectomy, Observed delayed gastric emptying. Clinical Management Plans Severely delayed gastric transit Normal small bowel transit Apparent rapid colonic transit Signature _Dr Douglass___ Date _10/05/2022 documented in this encounter [facility] 09-25-2022 Note [facility] 09-25-2022 History of Present illness Narrative Referring MD: Frederic Douglass DO Dx: gastroparesis, constipation Date of SmartPill Procedure: 09/25/2022 SmartPill ingested without difficulty at 11:00am. Discharge instructions completed and given to patient. Return of Equipment: Fed Je Ma RN Important Patient Information and Instructions Before the Test: 5 days before the test stop taking any medications that reduce the acid in your stomach. 5 days before the test stop taking all laxatives and motility drugs. Avoid alcohol. The Day of the Test: You may have sips of water during the 8 hours before your appointment time. Do not eat or drink anything else. Stop tube feeding 8 hours before the test. Do not smoke tobacco for 8 hours before the test. The Smartpill test will include a small meal that will be provided to you. Please let us know if you have any food allergies. If you are diabetic, check with your doctor about adjusting your insulin dose. For the Duration of the Test: No food for 6 hours after starting the test. You may have sips of water during the first 6 hours. Six (6) hours after you swallow the capsule, you may resume your normal diet, tube feeds, and tobacco use. Diabetic patients should monitor glucose levels and follow personal treatment plan. Do not drink alcohol until the test is complete. Do not take any laxatives or motility drugs or antidiarrhea medications until the test is complete. You may resume taking all medications for GERD and acid reflux the day after you swallow the SmartPill. Do not start taking any new medications until the test is complete. You will be wearing a Data Jig Grinder Set Up Operator around your neck like a necklace during the test. You must keep this near you at all times. The Data Jig Grinder Set Up Operator has an EVENT button. You will be asked to press the button and make entries in a diary during the test. Avoid vigorous exercise and sit-ups and abdominal crunches until after the Smartpill is complete. During the test, wait 2-3 minutes before flushing the toilet after each bowel movement. You must not have an MRI test while the Smartpill capsule is inside your body. Return the Data Jig Grinder Set Up Operator to the [facility] after your test is completed. Amirah Ma RN documented in this encounter [facility] 09-14-2022 Miscellaneous Notes Telephoned patient with SmartPill procedure appointment reminder/instructions. Amirah Ma RN Important Patient Information and Instructions for SmartPill Procedure. Before the test: 5 days before the test stop taking any medications that effect the acid in your stomach. Examples of these might be: Prilosec, Omeprazole, Nexium, Dexilant, Aciphex, Protonix, Zantac, Pepcid, Tagamet, Maalox, Mylanta, Simethicone, Carafate, Tums, Rolaids. You will be able to resume these the day after you swallow the SmartPill. Please do not take any laxatives or stool softeners or fiber supplements for 5 days before the test and during the procedure. This includes prescription and chos-tpp-afyujam medications including Amitiza, Miralax, Linzess, Trulance, Motegrity, Movantik, Relistor, Zelnorm, Ibsrela, Senna, Dulcolax, lactulose, and magnesium. No enemas and no suppositories. This also includes natural laxatives, such as prunes, prune juice, etc. Please do not take any motility drugs (Reglan, Erythromycin, or Domperidone), probiotics or anti-spasmodics (Bentyl) for 5 days before the procedure and during the testing. You should not be on antibiotics. You may continue to take your anti-nausea medications including Zofran, Phenergan, Compazine, and Tigan before and during the test. You may eat your regular diet the day before the test. Do not use tobacco or nicotine during the fasting period. Do not drink alcohol during the test. Do not plan on having any other testing done during the SmartPill procedure. The Day of the Test: Do not eat any solid food for 8 hours before the procedure. You may drink water. Turn off tube feeds 8 hours before your test. You will be given a chewy cereal bar to eat before you swallow the capsule. Please let us know if you have any food allergies. If you are diabetic, check with your doctor about adjusting your insulin dose. For the Duration of the Test: You must wear a Data Jig Grinder Set Up Operator on your body at all times during the test. The Data Jig Grinder Set Up Operator has an EVENT button. You will be asked to press the EVENT button and make a short entry in a diary for certain events. No food for 6 hours after starting the test. You may have small quantities of water during the 6 hours. Six (6) hours after you swallow the capsule, you may resume your normal diet and tobacco use. Diabetic patients should monitor glucose levels and follow personal treatment plan. Do not drink alcohol until the test is complete. Do not take any laxatives or anti-diarrhea medications until the test is complete. Do not start taking any new medications until the test is complete. Avoid vigorous exercise such as running, jogging, sit-ups, and abdominal crunches until the test is complete. You must not have an MRI test while the SmartPill capsule is inside your body. Return the Data Jig Grinder Set Up Operator to the [facility] after your test is completed. Testing could last up to 5 days. Please call me if you have any questions/concerns. Amirah Ma RN, Capsule Endoscopy Nurse [id number] [id number] documented in this encounter [facility] 09-05-2022 Note [facility] 09-05-2022 History of Present illness Narrative [facility] Patient Name: Ben Barr Date of : 1985 ESTABLISHED EPILEPSY CLINIC NOTE 09/05/2022 10:30 AM Reason for Visit: Follow Up (EMU follow up, non-epileptic diagnosis ) Clinical Summary: Ms. Barr is a 36 year old right-handed female seen in [facility]. We had a visit using: 2ND[employer]URE I received consent from the patient to perform the visit using this platform. There is no one accompanying the patient during today's visit. I have communicated my name and active licensure. The patient's identity and physical location were verified at the time of this visit. Either the patient or their legal field representative has been informed of the risks and benefits of -- and alternatives to -- treatment through a remote evaluation and consents to proceed with the evaluation remotely. HISTORY OF PRESENT ILLNESS Handedness: right-handed Age of onset: 20 years Seizure History and Evolution First seizure occurred at the age 20 yo when she underwent a bowel surgery. She was told that she had demerol x 2 and then experienced a convulsion, she recalls had a tongue bite. There was no preceding aura.She does not recall if she had EEG or MRI zaida. It was thought that it was due to the demerol. A year later she experienced another convulsion. This time it was not related to meds. She recalls that she became very sleepy and went into a convulsion. She was seen later by neurology. She was told that seizures were due to stress, she did not need AED and she was told that she needed xanax. She was seen by Dr Jim Richardson and she was on Xanax up to 7 mg daily . She was on xanax for 10 years and she continued to experienced convulsion at least once a year. She was referred to in 2014 and she underwent VEEG . VEEG showed SW left FT and pnes. She was discharged on neurontin 300 mg bid. Patient reports that she continued to experienced convulsion once a year. In 2016 she came off xanax and she experienced a couple of convulsions and since 2016 she did not experience another one. Today she reports a different type of spells for the last 2 years 1. Both legs become paralized, arms shaking, significant anxiety. Frequency at least 2 times a week, goes to the ED to get xanax 2. Weakness in both legs , can not go up the stairs, daily 3.Speech difficulties, knows what she wants to say words do not come out,it may occur with leg paralysis. It occurred only twice. She recalls that speech problems occurred in the past prior to a convulsion 4.Wave feeling in her head that can be followed by one of the above feeling. 5. Convulsion, last one in 2016. On Trileptal 150 mg bid, she thinks since 2015, unclear who started the drug. She was on Topamax in the past for headaches. 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 Mother told her that she had a brain infection as a baby. Father had a single seizure due to alcohol Interval Seizure History Seizure medication: stopped OXC in the EMU, no issues Events: Have continued after discharge. She saw the [facility] and after testing determined she does not have stiff person syndrome. She was given the diagnosis of functional disorder. She has many appointments in the next 6 weeks. She notes she is having less symptoms once she started diazepam 5mg BID, and it has stopped the waves in head and her legs from going numb. Overall her body feels a lot better. She has not been able to work since 2019 when IVIG started. 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 She lives with her and two children. Her memory has been worse, and is looking forward to therapy starting in September. She has seen a counselor in the past. Notes she has continued depression and anxiety. Driving: Yes Lives Alone: No CURRENT OUTPATIENT ANTISEIZURE MEDICATIONS (as of the start of the encounter) None Prior Anti-seizure Therapies: Trial Adequacy: Max Daily Dose Achieved: Side Effects: Effectiveness: Comments: Gabapentin Lamotrigine Topiramate Patient Entered Data: EPILEPSY SCORE 08/29/2022 10:28 AM 06/27/2022 6:13 PM 06/27/2022 6:08 PM First answer obtained - 04/23/2021 9:13 PM PHQ-9 SCORE 21 [Severe Depression] - 22 [Severe Depression] 16 [Moderately Severe Depression] MUMTAZ 2 SCORE 6 [Positive Anxiety Screen] - - - MUMTAZ 7 SCORE 18 [Severe Anxiety Disorder] - - - QOLIE-10 SCORE (0=worst; 100=best QoL - higher scores represent better function) 38 35 - - LSSS SCORE (0- no seizures 100- most severe possible seizures) - - - - C-SSRS SCREEN - - - - On average, how many hours of sleep do you get in a 24-hour period? - - - - DiasomeIS Sleep Disturbance T-SCORE - - - - Have you been diagnosed with Sleep Apnea? - - - - Seizure risk factors: Brain Tumor Unanswered MORTGAGE OPERATIONS MANAGER Infections Unanswered Developmental Delay Unanswered Family history of seizures Unanswered Febrile Seizure Unanswered Complications Unanswered Stroke Unanswered Traumatic Brain Injury Unanswered Previous Epilepsy Evaluations Video EE/26-07/16/2022 Ben Barr is a 36 year old female who presented to the [facility] EMU on 07/14/2022 for diagnosis. Medications were discontinued during the admission. Patient noted to have 1 typical events without EEG change. Please see separate video-EEG report for details. Prior to discharge, antiepileptic medications were discontinued . It was discussed with the patient that her episodes of a wave feeling , difficulty with speech, and feelings in the hands and jaw showed no changes on EEG and that they are not believed to be epileptic in nature. The patient was referred to the [facility] at discharge for follow up with her Stiffman Syndrome diagnosis and was discharged in stable condition. EEG 2022: Classifications: Abnormal II (10-20 Scalp Electrodes, Anterior Temporal Electrodes, Photic Stimulation, Awake, Sleep) Interictal: Intermittent Slow, Generalized and regional, Left temporal VEEG 2015: EEG Classification Abnormal III (Awake, Sleep, 10-20 Scalp Electrodes, Anterior temporal electrodes) Interictal: 1 Sharp Wave, Regional Left frontotemporal (rare) 2 Intermittent Slow, Generalized and regional left >right temporal Ictal: 1 EEG: No EEG Change Seizure: Paroxysmal Event MRI zaida 2021: No evidence of demyelination or acute demyelinating lesion in the brain and cervical spine. Other caregivers: Primary Care Provider: Lizy Soria, DO Current Outpatient Medications Medication Sig propranolol ER (INDERAL LA) 60 mg 24 hr capsule TAKE ONE CAPSULE BY MOUTH ONCE DAILY immune globulin, human,, IgG, (GAMMAGARD LIQUID) 10 % soln Inject 200 mL intravenously one time a week. predniSONE (DELTASONE) 10 mg tablet Take 1 tablet by mouth as directed. 2 tabs for 1 week, 1 tab for 1 week, 1/2 tab for 1 week ondansetron orally disintegrating (ZOFRAN ODT) 4 mg disintegrating tablet TAKE ONE TABLET BY MOUTH EVERY 8 HOURS NEEDED FOR NAUSEA VOMITING fluticasone (FLONASE) 50 mcg/actuation nasal spray Use in the nose. omeprazole (PRILOSEC) 40 mg capsule Take 40 mg by mouth once daily. busPIRone (BUSPAR) 10 mg tablet Take 30 mg by mouth twice daily. 0.9 % sodium chloride (NACL 0.9%) infusion Inject 200 mL/hr intravenously continuous. 1L during IVIG infusions diphenhydrAMINE (BENADRYL) 25 mg capsule Take 1 capsule by mouth as directed. Use as directed. Current Facility-Administered Medications Medication Dose Route Frequency acetylcholine 10% solution - cchs compounding 20 mL IRRIGATION ONE TIME acetylcholine 10% solution - cchs compounding 20 mL IRRIGATION ONE TIME ALLERGIES Allergen Reactions Antidepressants [Se* Other: See Comments It knocks me out. 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) Hypogammaglobulinaemia, unspecified Hypothyroid Intussusception (HCC) as child Low back pain PMS (premenstrual syndrome) POTS (postural orthostatic tachycardia syndrome) POTS (postural orthostatic tachycardia syndrome) Thrombocytopenia (HCC) Tobacco abuse Vitamin D deficiency PAST SURGICAL HISTORY Procedure Laterality Date COLONOSCOPY FLX DX W/COLLJ SPEC WHEN PFRMD 2011 Colonoscopy COLONOSCOPY FLX DX W/COLLJ SPEC WHEN PFRMD Colonoscopy ESOPHAGOGASTRODUODENOSCOPY TRANSORAL DIAGNOSTIC 09/2008 neg duodenal bx ESOPHAGOGASTRODUODENOSCOPY TRANSORAL DIAGNOSTIC 12/17/14 EGD PAST SURGICAL HISTORY OF 2005 partial bowel resection PAST SURGICAL HISTORY OF ingrown toenails removed FAMILY HISTORY Problem Relation Age of Onset Diabetes Mother other (Raynauds [Other]) Mother Hyperlipidemia Mother Hypertension Mother Alcohol abuse Father Gout Father other (POTS [Other]) Sister both sisters other (AVM [Other]) Sister Cancer Paternal Grandmother lung; smoker other (healthy [Other]) Daughter Diabetes Maternal Aunt type 1 Thyroid Maternal Aunt grave's Thyroid Maternal Aunt Neel's Thyroid Maternal Uncle hypothyroid SOCIAL HISTORY: -Lives in [place], [place] -Patient lives alone? No -Functional status: independent in activities of daily living -Patient driving? Yes IMPRESSION: History of convulsions since the age of 20 yo. At the time she was started on xanax and for 10 years she had 1 seizure/year.She underwent VEEG in 2014 at showing [facility] left fronto temporal and pnes were captured. She was on Neurontin and later switched at OSH to Trileptal 150 mg bid . Patient's last convulsion was in 2015 when she came off xanax. Today she presents with multiple other symptoms, unclear if they are epileptic or not. MRI brain is normal. EEG last week showed IS left temporal and ISG with no epileptiform discharges. Risk factors for seizures include previous head traumas with LOC and questionable brain infection as a baby? Ben followed up with VEEG, which captured episodes of concern without EEG change. These episodes were not epileptic, and Trileptal was stopped. Since that time she has followed up with the [facility], being diagnosed with functional movement disorder. She has a treatment team starting within the next 6 weeks. She notes Valium BID dosing has helped her muscles and these events stop. PLAN: - Follow up with treatment as outlined by [facility] for functional movement disorder - No need for further appointments with our epilepsy clinic unless new symptoms/concerns need investigated I discussed the risks, benefits and alternatives of the medical plan with the patient. Questions were answered. The patient agreed with the plan as discussed. FOLLOW-UP: Return if symptoms worsen or fail to improve. I spent a total of 18 minutes on the date of the service which included: preparing to see the patient [id number] patient care completing clinical documentation Courtney Randhawa PA-C cc: Primary Care Physician: Lizy Soria DO [id number] [place] [id number] documented in this encounter [facility] 08-24-2022 Note HNO ID: [id number] Author: Bebeto Perry MD Service: ? Author Type: Physician Type: Progress Notes Filed: 08/24/2022 2:26 PM Note Text: [facility] 08-24-2022 History of Present illness Narrative Images from the original note were not included. documented in this encounter [facility] 08-10-2022 Note Stiff-Person Spectru m Disorders Evaluation [facility] Comment on above: Order Comment: Speci men Type: BLOOD SPECIMENOrdering Facility: [facility] Address: [address], [place] [address] Performed By: #### M ISC1 ####NON-INTERFACED REF LABSCLIA SEE SCANNED RESULTS 08-10-2022 Note [facility] 08-10-2022 Instructions Bebeto Perry MD - 08/10/2022 9:16 AM EDT Functional Neurologic Disorders (FND) are a group of disorders that are due to dysfunctions in how the nervous system and the body send or receive signals. Functional symptoms can encompass physical, sensory, and/or cognitive symptoms that patients are not in control of. While some patients may have an acute physical or psychological stressor that precipitate their symptoms, other patients don't have any identifiable triggers. While the true cause of FND is an emerging area of research, treatment consists of a combination of physical therapy, psychotherapy, and rehabilitation with most patients achieving at least some form of functional recovery. These symptoms are real and cause impairment to quality of life that is similar to and in some aspects worse than other neurologic conditions. Please visit [email or web address]/, www.[email or web address].org or www.fndhope.org to get more information about Functional Neurological Disorders written in easy to understand language We also have a podcast discussing the disorders further with our team of experts: Functional Movement Disorders: Diagnosis & Management [email or web address] The FMD clinic is managed w/ [facility] (movement disorders). For Appointments call [phone] documented in this encounter [facility] 08-10-2022 History of Present illness Narrative Images from the original note were not included. [facility] NEW PATIENT EVALUATION/CONSULTATION Referral source: Vesta Mares [address] [facility] [place] [facility] [id number] Also followed by: Patient Care Team: Lizy Soria DO as PCP - General (Family Medicine) Kathryn Gutierrez, RN as Specialty Retail Manager (Hematology) PRINCIPAL NEUROLOGIC DIAGNOSIS: SPS evaluation; functional neurological disorder HISTORY OF ILLNESS: An opinion on this 36 year old female was requested by the referring physician for a second opinion on neurological symptoms. The patient was unaccompanied. Previous records (physician notes, laboratory reports, and radiology reports) and imaging studies were reviewed and summarized. My recommendations will be communicated back to the patient's physician(s) via electronic medical record. Follow-up is expected to be with me at the [facility]. She was seen by Dr Daisy black in 2009 and she complained muscle weakness/spasms and fatigue. Total colectomy in 2015 with ileoanal anastomosis in 2017 In , she was delayed with her IVIG infusion by five months due to insurance challenges. During that time, she had significant weight loss, memory loss/cognitive dysfunction and global weakness. She was hospitalized for several infections during this time. While at work ~2021, she had an episode of lower extremity paraplegia which resolved completely with ativan. She will have attacks where she can't speak/stuttering, hands stop working , butterfly sensation in the arms, paralysis in the lower extremities with falls. Once she is able to calm down the symptoms usually improve. Her PCP just prescribed Valium for SPS which seems to help the symptoms. She is unable to navigate the stairs anymore on a consistent basis given symptoms. She was seen with Dr. Rogers on 07/03/2022 for AChR binding antibody of 0.27 nM which was negative previously. She underwent a repetitive nerve stimulation which was normal. She was admitted to the EMU on 07/14 for spells of a wave feeling , difficulty with speech, weakness in the lower extremities and feelings in the hands and jaw showed no changes on EEG and that they are not believed to be epileptic in nature. 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 These spells seemed to have started about a year ago. She has been seen by Dr Lantigua from rheumatology in 2009 and there was no clear evidence of autoimmune rheumatology disorders in the setting of a positive CHRIS. She was seen by Dr Noyola from movement disorder section. 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 She was found with positive anti-MUMTAZ (>120IU/mL) on 04/13/2022 which was negative on 05/11/2011. A1c 4.5. Dr. Douglass recommended a change in IVIG doses for possible Neuro-QoL Functions (higher=better functioning) Flowsheet Row Office Visit from 08/10/2022 in [facility] Upper Extremity Domain T Score 38 Lower Extremity Domain T Score 38 Cognitive Function Domain T Score 31 Positive Affect Well Being T Score -- Ability To Participate In Social Roles T Score 42 Satisfaction With Social Roles T Score 38 Neuro-QoL Symptoms (higher=worse symptoms) Flowsheet Row Office Visit from 08/10/2022 in [facility] Sleep Domain T Score -- Fatigue Domain T Score 65 Anxiety Domain T Score 76 Depression Domain T Score 64 Stigma Domain T Score 57 Emotional Behavior Dyscontrol T Score -- PAST HISTORY: has a past medical history of Anxiety, Chronic kidney disease, stage II (mild), Common variable immunodeficiency (HCC), Convulsions, Depression, Grand mal convulsion (HCC), Hypogammaglobulinaemia, unspecified, Hypothyroid, Intussusception (HCC), Low back pain, PMS (premenstrual syndrome), POTS (postural orthostatic tachycardia syndrome), POTS (postural orthostatic tachycardia syndrome), Thrombocytopenia (HCC), Tobacco abuse, and Vitamin D deficiency. has a past surgical history that includes past surgical history of (2005); esophagogastroduodenoscopy transoral diagnostic (09/2008); past surgical history of; colonoscopy flx dx w/collj spec when pfrmd (2011); colonoscopy flx dx w/collj spec when pfrmd; and esophagogastroduodenoscopy transoral diagnostic (12/17/14). has a current medication list which includes the following prescription(s): diazepam, propranolol er, gammagard liquid, prednisone, ondansetron orally disintegrating, fluticasone, omeprazole, buspirone, nacl 0.9%, and diphenhydramine, and the following Facility-Administered Medications: acetylcholine chloride and acetylcholine chloride. Social History Tobacco Use Smoking status: Former Packs/day: 0.50 Years: 6.00 Pack years: 3 Types: Cigarettes Quit date: 12/20/2013 Years since quittin.6 Smokeless tobacco: Never family history includes AVM in her sister; Alcohol abuse in her father; Cancer in her paternal grandmother; Diabetes in her maternal aunt and mother; Gout in her father; Hyperlipidemia in her mother; Hypertension in her mother; POTS in her sister; Raynauds in her mother; Thyroid in her maternal aunt, maternal aunt, and maternal uncle; healthy in her daughter. PHYSICAL EXAM: BP 95/58 Pulse 81 Ht 154.9 cm (5' 1 ) Wt 63.5 kg (140 lb) LMP 08/05/2022 (Approximate) BMI 26.45 kg/m The patient was alert and oriented to person, place, and time with normal language, attention and concentration, recent and remote memory, praxis, and intellectual function. Affect was normal. The patient did not appear depressed. Pupils were briskly reactive OU without a relative afferent pupillary defect. Ocular ductions were full without nystagmus or ataxia. Muscles of mastication and facial expression moved normally. Hearing was normal. Gag reflex and palatal movements were normal. Tongue movements were normal. There was no dysarthria. Motor Examination: There was no pronator drift. Significant give way weakness lower extremity>upper extremity Reflexes: brachioradialis ++ brachioradialis ++ biceps ++ biceps ++ triceps ++ triceps ++ patellar ++ patellar ++ Achilles ++ Achilles ++ plantar response down plantar response down Coordination Finger to nose testing without dysmetria but slowed Rapid-alternating movements are slowed Tremor entrainment No signs of head tremor or truncal ataxia Sensory examination: Vibration: Splits the midline Romberg's test was normal. Patient ambulated into the office without difficulty or incoordination. During formal testing, she was slow and cautious with an outstretch hand at time. She navigated the stairs with a cautious pattern; she had a stuttering course on the stairs where she stopped and started inconsistently. Some distractable elements. Exaggerated pull response REVIEW OF RECORDS: Component Latest Ref Rng & Units 04/13/2022 Hemoglobin A1C 4.3 - 5.6 % 4.5 Estimated Average Glucose mg/dL 82 Glutamic Acid Decarboxylas Ab Qualitative Negative Positive (A) Glutamic Acid Decarboxylase Ab <=5.0 IU/mL >120.0 (H) TSH 0.270 - 4.200 mIU/L 2.180 Free T4 0.9 - 1.7 ng/dL 1.2 P/Q-Type Calcium Channel Antibody 0.0 - 24.5 pmol/L 13.8 Voltage-Gated K+ Channel Ab 0 - 31 pmol/L 30 REVIEW OF IMAGING STUDIES: I personally reviewed the following images and reviewed these images with the patient MRI brain 10/11/2021 Normal scan; minimal non-specific FLAIR/T2 hyperintensities without the typical appearance for demyelinating disease. MRI cervical spine 10/11/2021 Mild degenerative changes in the spine. 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 Ben has experienced episodes of speech disturbances including stuttering, incoordination, tremors and lower extremity paralysis since ~2019 when she had a delay in IVIG. These episodes have become more frequent recently and prompted an EMU stay which did not reveal any epileptiform activity with the spells. She was found to have a low titer serum MUMTAZ during this evaluation which raised the possibility of SPS. No other cardinal features of SPS on clinical hx nor examination. We discussed the non-specific nature of GAD65 antibodies especially while on IVIG. We will move forward with SPS panel testing with [facility] but I think that diagnosis is less likely. 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 We discussed the diagnosis along with the pathophysiology and treatment. I will reach out to Dr. Noyola for further input while we start a rehabilitation program focused on that disorder. If her [facility] SPS panel is unrevealing I would defer further work-up and treatment for SPS. Office Visit on 08/10/22 [facility] SEND OUT TST 1 CONSULT TO [facility] CONSULT TO MANAGEMENT ASSOCIATE CONSULT TO PHYSICAL THERAPY CONSULT TO SPEECH THERAPY CONSULT TO FUNCTIONAL MOVEMENT DISORDERS (FMD) FOLLOW UP APPOINTMENT AMBULATORY CONSULT TO PSYCHOLOGY I spent a total of 90 minutes on the date of the service, over half in counseling and educating the patient/family/caregiver, along with time spent preparing to see the patient, [id number] patient care, completing clinical documentation, performing a medically appropriate examination, and ordering medications, tests, or procedures. Bebeto Perry Staff Neurologist [facility] for [facility] documented in this encounter [facility] 07-25-2022 Note [facility] 07-25-2022 Miscellaneous Notes Frederic maloney [facility] called in stating that patient has been missing doses of IVIG due to the insurance denying the Prior Authorization. documented in this encounter [facility] 07-24-2022 Miscellaneous Notes PATIENT INFORMATION Record ID: [id number] Patient Name: [facility]: [facility] [place]: [facility] [place] Attending: Aakash Alvarado Center: Sleep Disorders INSTRUCTIONS MA to remind patient of next upcoming appointment date, time, location All Clear All Clear SURVEY INFORMATION Medical/Nurse Account Processor: Antoine Villegas 1. Your discharge instructions are important in guiding you through the recovery process. Is there anything I could help you clarify on your discharge instructions? (Standard Question) No 2. Do you have a follow up appointment related to your hospital stay scheduled within the next 30 days? (Standard Question) Yes 3. Many patients have concerns about their medications once they are home. Do you have any questions about getting or taking your medications? (Standard Question) No 4. Do you have any new or different symptoms? (Standard Question) No documented in this encounter [facility] 07-16-2022 Note [facility] 07-15-2022 Note [facility] 07-14-2022 Note HNO ID: [id number] Author: Brooklyn Gandhi RN Service: Nursing Author Type: Registered Nurse Type: Nursing Progress Note Filed: 07/14/2022 1:53 PM Note Text: Pt arrived safely to h71. Pt oriented to room, call light, and sz button. Will CTM. [facility] 07-14-2022 Note [facility] 07-11-2022 Miscellaneous Notes Forwarded to EMU scheduling team. Alecia Nguyen RN Message forwarded to epilepsy team for review. Received from [facility] approval for Overnight Brainwave Study (EEG) via fax. Approve from 07/14/22 through 07/19/22. 4 pages indexed to chart. documented in this encounter [facility] 07-03-2022 Note [facility] 07-03-2022 Note [facility] 07-03-2022 History of Present illness Narrative ======= Please route this encounter to the EMU Scheduling Pool ( P EMU ) or PMU Scheduling Pool ( P PMU ) through LOS & Follow up ======= PHASE 1.0 AND 1.5 ORDER SYNOPSIS Patient: Ben Barr ([id number]) Best contact number: [phone] Insurance: Payor: [facility] [place] [employer] / Plan: [employer] [facility] [place] [employer] / Product Type: Medicaid / ---- Scheduling Team: Please call for adult patients: Melanie Le ([phone]) Aline Lima ([phone]) Valeria Prakash([phone]) Sharon Rivera([phone]) Please call for pediatric patients: Aline Lima ([phone]) Valeria Prakash ([phone]) Melanie Le ([phone]) Sharon Rivera([phone]) ---- 07/03/2022 Admission Type EMU Adult Number of Days requested [address] [place] [address] Admit Priority Routine PURPOSE 07/03/2022 Patient Being Considered for Epilepsy Surgery? No VEEG recommended to assess seizure burden, address new & concerning syymptom-sign complex, and/or clarify syndromic epilepsy diagnosis? Yes 07/03/2022 Sphenoidal monitoring No Electrode placement Standard ====== Appointments and Tests SELF CHECK COVID (AMB COVID PRE-PROCEDURE TESTING PANEL) EPIL VEEG ADMIT TO EMU/PMU Consultations None ======= Please route this encounter to the EMU Scheduling pool ( P EMU ) or PMU Scheduling pool ( P PMU ) through LOS & Follow up ======= Scheduling coordinators: For all VNS patients being scheduled for [facility], please schedule VNS off/on office visits. documented in this encounter [facility] 07-03-2022 Note [facility] 07-03-2022 History of Present illness Narrative Images from the original note were not included. Chief Complaint: muscle weakness HISTORY OF PRESENT ILLNESS: Ms. Ben Barr is a 36 year old right handed female presented to the [facility] for an initial evaluation. Patient comes in with her cousin. Patient has been seen and referred for consultation by Ms. Saroj Foss. The patient's major symptoms are the following: muscle weakness This has been present for approximately two years (However, she was seen by Dr Villa back in 2009 and she complained muscle weakness and fatigue then). For the last year, symptoms got worse. The major issue is leg and arm weakness. Hands will stop working all of sudden. I can lift arms, but I can not hold pen for some reason, my fingers just stop working. My legs will be completely paralyzed. I could not even lift my legs by an inch. I can not do anything with my legs. I could not stand up. I could not feel my legs even if somebody touches them. There is no pain, no numbness or tingling. I do not remember I have cramp or stiffness. I remember that my legs just gave out, and I completely falling out of stairs at work. I have trouble talking as I can not make any words out. I can not say what I need to say as if my brain does not allow me to speak. I have trouble breathing as I feel that I have a panic attack. The only thing it settles my muscle down is to go to ER having ativan injections . These episodes tend to occur once or twice a week, lasting for hours to days. She has been to ER two to three times. Other times she has sensation of butterfly sensation in her arms. She has intermittent numbness and tingling in her legs. She had an isolated Jordan horses in right leg only once lasting for two hours two days ago. This is the only episode of muscle spasm she could remember. She was given the diagnosis of POTS/small fiber neuropathy in the past. Her ANS and QSART were abnormal in 2009 but skin biopsy was normal on 09/07/2009. She has repeat ANS and QSART coming up. She had EMG on right arm and leg on 04/11/2022 being completely normal. Her MRI of brain and cervical spine were normal on 10/11/2021. She did have a gastric emptying study on 01/30/2022 showing moderate gastroparesis. The following blood tests are normal: CPK (41, 57, 66), HA1C, IEP, B12, CBC, CMP, BEATRIZ, VGKC-AB, VGCC-Ab. She was given the diagnosis of immunodeficiency and has been on IVIG since 2013. She was found with positive anti-MUMTAZ (>120) on 04/13/2022 which was negative on 05/11/2011. 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 Her CHRIS has been positive. She was seen by Dr Lantigua from rheumatology in 2009 and there was no clear evidence of autoimmune rheumatology disorders. She was seen by Dr Estrella from movement disorder section. She will be seen by epilepsy next for slightly abnormal EMG. She was found with AChR binding antibody of 0.27 nM which was negative previously. She is sent here fore evaluation of above weakness. 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, unspecified Hypothyroid Intussusception (HCC) as child Low back pain PMS (premenstrual syndrome) POTS (postural orthostatic tachycardia syndrome) POTS (postural orthostatic tachycardia syndrome) Thrombocytopenia (HCC) Tobacco abuse Vitamin D deficiency PAST SURGICAL HISTORY: PAST SURGICAL HISTORY Procedure Laterality Date COLONOSCOPY FLX DX W/COLLJ SPEC WHEN PFRMD 2011 Colonoscopy COLONOSCOPY FLX DX W/COLLJ SPEC WHEN PFRMD Colonoscopy ESOPHAGOGASTRODUODENOSCOPY TRANSORAL DIAGNOSTIC 09/2008 neg duodenal bx ESOPHAGOGASTRODUODENOSCOPY TRANSORAL DIAGNOSTIC 12/17/14 EGD PAST SURGICAL HISTORY OF 2005 partial bowel resection PAST SURGICAL HISTORY OF ingrown toenails removed MEDICATIONS: Current Outpatient Medications Medication Sig hydrOXYzine HCl (ATARAX) 25 mg tablet Take 1 tablet by mouth three times daily as needed. propranolol ER (INDERAL LA) 60 mg 24 hr capsule TAKE ONE CAPSULE BY MOUTH ONCE DAILY ondansetron orally disintegrating (ZOFRAN ODT) 4 mg disintegrating tablet TAKE ONE TABLET BY MOUTH EVERY 8 HOURS NEEDED FOR NAUSEA VOMITING busPIRone (BUSPAR) 10 mg tablet Take 30 mg by mouth. 0.9 % sodium chloride (NACL 0.9%) infusion Inject 200 mL/hr intravenously continuous. 1L during IVIG infusions OXcarbazepine (TRILEPTAL) 150 mg tablet Take 1 tablet by mouth twice daily. diphenhydrAMINE (BENADRYL) 25 mg capsule Take 1 capsule by mouth as directed. Use as directed. immune globulin, human,, IgG, (GAMMAGARD LIQUID) 10 % soln Inject 200 mL intravenously one time a week. predniSONE (DELTASONE) 10 mg tablet Take 1 tablet by mouth as directed. 2 tabs for 1 week, 1 tab for 1 week, 1/2 tab for 1 week fluticasone (FLONASE) 50 mcg/actuation nasal spray Use in the nose. omeprazole (PRILOSEC) 40 mg capsule Take 40 mg by mouth once daily. Current Facility-Administered Medications Medication Dose Route Frequency acetylcholine 10% solution - cchs compounding 20 mL IRRIGATION ONE TIME acetylcholine 10% solution - cchs compounding 20 mL IRRIGATION ONE TIME ALLERGIES Allergen Reactions Antidepressants [Se* Other: See Comments It knocks me out. Rondec [Bromphenira* crying for 12 solid hours-per mom FAMILY HISTORY: No history of neuromuscular disease. Father: has dementia, alcoholism Mother: diabetes SOCIAL HISTORY: No tobacco. No significant alcohol abuse. No history of substance abuse. 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 Eyes: Negative for eye pain, dryness or floaters. ENT: Negative for decreased hearing, ringing in the ears. Cardiovascular: Negative for chest pain, or leg edema. Genitourinary: Negative for blood in urine, hesitancy. Musculoskeletal: Negative for joint pain,, muscle twitches. Skin: Negative for rashes. Hematology and oncology: No history of cancer. Endocrine: Negative for abnormal sweating, thyroid disorder, diabetes PHYSICAL EXAMINATION: Blood pressure 106/72, pulse 71, height 154.9 cm (5' 1 ), weight 64 kg (141 lb), last menstrual period 02/16/2022, SpO2 99 %. General: Well appearing, comfortable, in no apparent distress. Respiratory: Clear to auscultation. Cardiac: Regular rate and rhythm, no murmur. Extremities: No deformities or edema. Skin: No rashes. NEUROLOGICAL EXAMINATION: Mental Status: Alert. Following commands. Speech: fluent speech without dysarthria or aphasia. Cranial Nerves: II: Visual sylvester full to confrontational testing. III/IV/: Pupils equal, round and reactive to light. No nystagmus. No ptosis Eye motility findings Right Left Upgaze Normal Normal Lateral gaze Normal Normal Medial gaze Normal Normal Down-gaze Normal Normal (Normal; -1, mild restriction; -2 moderate restriction; -3, severe restriction with minimal movement; -4, no movement) V: Normal facial sensation. VII: Normal facial symmetry and movements. VIII: Normal hearing. IX-X: Normal palatal movement. Uvula midline. XI: Normal shoulder shrug and head turning. XII: Normal tongue strength and range of motion, no deviation, atrophy or fasciculation. Motor: Normal muscle tone. No atrophy. No fasciculations. No tremor. Muscle strength Right Left Neck flexor 5 Neck extensor 5 Shoulder abductor 5 5 Elbow flexion 5 5 Elbow extension 5 5 Wrist flexion 5 5 Wrist extension 5 5 First dorsal interosseous 5 5 Abductor digiti minimi 5 5 Abductor pollicis brevis 5 5 Hip flexion 5 5 Knee extension 5 5 Knee flexion 5 5 Knee abduction 5 5 Knee adduction 5 5 Dorsiflexion 5 5 Plantar flexion 5 5 Foot eversion 5 5 Foot inversion 5 5 Reflexes: No Beckford's sign. No Tromner's sign. Right Left Biceps ++ ++ Triceps ++ ++ Knee jerk ++ ++ Ankle jerk ++ ++ Babinski Flexor Flexor Sensory examination: Pinprick: normal in fingertips; normal in toes. Vibration: normal in fingertips; normal at ankles. Proprioception: normal in fingertips; normal in toes. Coordination: Normal rapid alternating movements. No ataxia on [id number]-ul-kwvh and uqrk-nr-[id number] testing. Gait: Romberg negative. Heel walking: able Toe walking: able Tandem walking: able Able to do deep knee bending. OUTSIDE RECORDS: none INTERNAL RECORDS: The patient's electronic medical record was reviewed. The relevant details are summarized as above. IMPRESSION/PLAN: Episodes of leg>arm weakness that lasting for hours, with reduced sensation in legs, complicated by symptoms of difficulty in speaking and feeling of shortness of breath, responding to ativan treatment. Slightly increased AChR binding antibody, positive CHRIS and positive anti-MUMTAZ antibody History of POTS/small fiber neuropathy Normal neuromuscular examination. Normal routine EMG. Normal CPK. The weakness is episodic, not indicative of myopathy, peripheral neuropathy, motor neuron disease, and is also atypical for myasthenia gravis. To complete the workup, I will proceed with repetitive nerve stimulation. However, I must point out that the suspicion for MG is very low, and the equivocal AChR binding antibody is likely the result of IVIG treatment. During these episodes, she has paralysis (rather than muscle stiffness or rigidity). So far she only had one episode of leg muscle spasm that resolved spontaneously. There is no evidence of fasciculations, cramps, increased tone and hyperreflexia. From a neurology point of view, I see no clear evidence to support a diagnosis of stiff person syndrome. I explained to patient that anti-MUMTAZ antibody is non-specific and may indicate other disorders other than stiff person syndrome, and the positive result could also be results of her IVIG usage. These episodes could represent FND associated with panic attacks. Patient instructions: Proceed with RNS study. We will let patient know about result. I spent a total of 40 minutes on the date of the service which included [id number] patient care, completing clinical documentation, obtaining and/or reviewing separately obtained history, performing a medically appropriate examination, counseling and educating the patient/family/caregiver, and ordering medications, tests, or procedures. All questions answered. Written instructions provided. Kim Rogers M.D., Ph.D. Staff Physician [facility] [address] [place] [address] CC: Saroj Foss [facility] [id number] Lizy Soria DO [address] [place] [id number] documented in this encounter [facility] 06-30-2022 Hospital Discharge instructions Follow Up Care 06/30/2022 08:13:11 With:Lizy SORIA DO, FAM Address: [address] [place] [id number] When:Within 3 Month(s) [facility] [place] 06-29-2022 Miscellaneous Notes Fax over the prescription and most recent clinical notes to [facility]. Uploaded prescription into [facility] docs. Please allow time for upload. documented in this encounter [facility] 06-27-2022 Note [facility] 06-27-2022 Instructions Saroj Foss APRN.MANAGER TRADING - 06/27/2022 4:56 PM EDT Plan: 1) EEG 2) Consult to epilepsy 3) No driving until seen by epilepsy 4) Reordered: -Autonomic reflex with tilt -QSART 5) Consult to neuromuscular medicine PHYSICIAN only documented in this encounter [facility] 06-27-2022 History of Present illness Narrative Images from the original note were not included. [facility] General Neurology Follow-Up/Established Patient Visit Chief Complaint/Issues: Ben Barr is a 36 year old handed right-handed female seen in the [facility] for: Follow up Multiple complaints Brief HPI /Most Recent Department Assessment and Plan: Established patient seen initially for tremulous and intermittent episodes of leg weakness. She was referred to movement disorders, following with Dr. Noyola for tremulousness. We have been treating her for chronic tension headache, described as pressure sensation. At most recent visit she had proximal muscle weakness on exam, EMG ordered myopathy protocol and WNL. She has multiple evaluations of CK normal in the past. MUSK Ab negative 03/13. ACHR Ab checked and negative in 12/10, now showing equivocal in 04/13. Most recent visit 03/10/2022: She had recent hospitalization in January for multiple issues: -Pancytopenia with moderate leukopenia, moderate thrombocytopenia, mild normochromic/normocytic anemia -Abdominal pain -Intussusception, with upcoming GI evaluation -RUQ US Hepatic steatosis -Elevated liver enzymes, CKD2 We address additional issues today: 1) Headache -Still with band like holocephalic -Light sensitivity, no sound, not worse with activity -Consistent with tension headache -Constant pressure sensation -Has tried gabapentin -Lyrica and TCA likely too sedating, cannot use Cymbalta due to hepatic -Will try topamax, next step referral to headache for management 2) Proximal weakness -Worsened proximal weakness in the last 6 months -Feels upper arms feel weak, has trouble cutting vegetables, no subjective hand weakness -Trouble walking down stairs, feet and lower legs feel strong to her -No proximal arm weakness on exam -She does have new proximal weakness on exam -Muscle break down labs previously WNL but will recheck -ACHR receptor Ab negative previously -EMG myopathy protocol 3) Rash -She has intermittent rash, that comes ~daily lasting a few hours -Dermatomyositis rash should not have this pattern -Not related to exertion -Across the chest -Patch appears flat, with irregular border, pink in color -States not itchy or painful 1) Need to schedule the following: -Autonomic reflex with tilt -QSART 2) Topamax 25 mg at bedtime -Potential side effects: numbness and tingling, kidney stones (calcium phosphate) word finding difficulties and other cognitive side effects, loss off appetite, change in taste with sodas or reversible glaucoma. If you develop numbness and tinglng , buy Potassium 99 mg over the counter and use 1 or 2 /day. 3) Labs: -Today -CMP in 1 month Today: Accompanied by , Callie. Dr. Douglass tested her for things, and she had extremely high MUMTAZ antibodies. 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 He discussed with Dr. Kiser and they are worried about this. She is currently doing IVIG weekly (rather than previously every 3 weeks). She finds she has less issues with muscle twitches, numbness. She continues to have feelings of weakness, worse with activity. She has trouble walking up the stairs. Going down the stairs she feels like she might fall. She feels like she can fall when she stands. Her arms feel weak, and describes a butterfly sensation. She has not seen any muscle rippling sensation. She has trouble with handwriting due to trouble grasping items. She has issues with muscle cramping in the lateral thighs especially, she gets muscle spasms causing her to drop things. She does find when she gets ativan in the hospital, it stops the muscle twitching and spasms. She is on Buspar for MUMTAZ. Still having on and off lightheadedness. She gets feelings of waves in her head, and feels like I am going to go into a seizure . She denies feeling dizzy. She feels like it is somewhat similar to the feeling she would get before she had a seizure. However, she would often only get drowsy before seizures. She had intestinal surgery when she was 20, had a seizure after receiving high dose demerol. She had another a year later. She was diagnosed with grand mal seizures. She saw local neurology, and was told seizures were due to stress, and was placed on xanax which worsened seizures. She was admitted to EMU: Interictal: 1 Sharp Wave, Regional Left frontotemporal (rare) 2 Intermittent Slow, Generalized and regional left >right temporal Ictal: 1 EEG: No EEG Change Seizure: Paroxysmal Event She is on oxcarbazepine. PMH 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) Hypogammaglobulinaemia, unspecified Hypothyroid Intussusception (HCC) as child Low back pain PMS (premenstrual syndrome) POTS (postural orthostatic tachycardia syndrome) POTS (postural orthostatic tachycardia syndrome) Thrombocytopenia (HCC) Tobacco abuse Vitamin D deficiency PAST SURGICAL HISTORY Procedure Laterality Date COLONOSCOPY FLX DX W/COLLJ SPEC WHEN PFRMD 2011 Colonoscopy COLONOSCOPY FLX DX W/COLLJ SPEC WHEN PFRMD Colonoscopy ESOPHAGOGASTRODUODENOSCOPY TRANSORAL DIAGNOSTIC 09/2008 neg duodenal bx ESOPHAGOGASTRODUODENOSCOPY TRANSORAL DIAGNOSTIC 12/17/14 EGD PAST SURGICAL HISTORY OF 2005 partial bowel resection PAST SURGICAL HISTORY OF ingrown toenails removed ALLERGIES Allergen Reactions Antidepressants [Se* Other: See Comments It knocks me out. Rondec [Bromphenira* crying for 12 solid hours-per mom Social History Tobacco Use Smoking status: Former Packs/day: 0.50 Years: 6.00 Pack years: 3.00 Types: Cigarettes Quit date: 12/20/2013 Years since quittin.5 Smokeless tobacco: Never Substance Use Topics Alcohol use: No Drug use: No FAMILY HISTORY Problem Relation Age of Onset Diabetes Mother other (Raynauds [Other]) Mother Hyperlipidemia Mother Hypertension Mother Alcohol abuse Father Gout Father other (POTS [Other]) Sister both sisters other (AVM [Other]) Sister Cancer Paternal Grandmother lung; smoker other (healthy [Other]) Daughter Diabetes Maternal Aunt type 1 Thyroid Maternal Aunt grave's Thyroid Maternal Aunt Neel's Thyroid Maternal Uncle hypothyroid Current management of orthostatic condition Conservative Measures: Increased water intake (2-2.5 liters of water daily) Increased salt intake (3-5 grams daily) Compression stockings Cardiac Rehab / Progressive exercise Elevate head of bed Continue with mental health care Medications Current Outpatient Medications on File Prior to Visit Medication Sig topiramate (TOPAMAX) 25 mg tablet TAKE ONE TABLET BY MOUTH ONCE DAILY AT BEDTIME propranolol ER (INDERAL LA) 60 mg 24 hr capsule TAKE ONE CAPSULE BY MOUTH ONCE DAILY predniSONE (DELTASONE) 10 mg tablet Take 1 tablet by mouth as directed. 2 tabs for 1 week, 1 tab for 1 week, 1/2 tab for 1 week ondansetron orally disintegrating (ZOFRAN ODT) 4 mg disintegrating tablet TAKE ONE TABLET BY MOUTH EVERY 8 HOURS NEEDED FOR NAUSEA VOMITING immune globulin, human,, IgG, (GAMMAGARD LIQUID) 10 % soln Inject 550 mL intravenously every 3 weeks. fluticasone (FLONASE) 50 mcg/actuation nasal spray Use in the nose. omeprazole (PRILOSEC) 40 mg capsule Take 40 mg by mouth once daily. busPIRone (BUSPAR) 10 mg tablet Take 30 mg by mouth. 0.9 % sodium chloride (NACL 0.9%) infusion Inject 200 mL/hr intravenously continuous. 1L during IVIG infusions OXcarbazepine (TRILEPTAL) 150 mg tablet Take 1 tablet by mouth twice daily. diphenhydrAMINE (BENADRYL) 25 mg capsule Take 1 capsule by mouth as directed. Use as directed. Current Facility-Administered Medications on File Prior to Visit Medication acetylcholine 10% solution - [facility] compounding Relevant Current Medications: Buspar 30 mg Oxcarbazepine Propranolol ER IVIG Gammagaurd weekly Relevant Work Up To Date Labs CRP, sed WNL Cerulopasmin x2, vit E WNL Ferritin, iron + TIBC WNL Hgb A1C WNL Vit D WNL B12 WNL Viltage gated Ca++ WNL Viltage gated K+ WNL ACHR Ab: Component Ref Range & Units 1 mo ago 6 mo ago Acetylcholine, Binding, Qual Negative Equivocal Abnormal Negative CM Comment: Anti-acetylcholine receptor binding antibody test is used as an aid in diagnosis of myasthenia gravis. A negative result cannot exclude myasthenia gravis. Clinical correlation is required. Acetylcholine Receptor Binding <0.21 nmol/L 0.27 High <0.02 MUMTAZ Ab: 0 Result Notes Component Ref Range & Units 1 mo ago 11 yr ago Glutamic Acid Decarboxylas Ab Qualitative Negative Positive Abnormal Glutamic Acid Decarboxylase Ab <=5.0 IU/mL >120.0 High <5.0 R IgM: Component Ref Range & Units 1 mo ago (04/13/22) 3 mo ago (02/23/22) 8 yr ago (10/16/13) 8 yr ago (08/04/13) 12 yr ago (07/06/09) IgM 40 - 230 mg/dL <5 Low <5 Low CM IgG: Component Ref Range & Units 1 mo ago (04/13/22) 3 mo ago (02/23/22) 8 yr ago (10/16/13) 8 yr ago (08/04/13) 12 yr ago (07/06/09) IgG 700 - 1,600 mg/dL 2,004 High 1,253 519 Low R 532 Low R 505 Low R Organic Acids: Component Ref Range & Units 1 mo ago 7 yr ago 8 yr ago Lactate, Urine 2.9 - 47.2 umol/mmolCr 17.7 13.3 10.0 Pyruvate, Urine 0.1 - 2.6 umol/mmolCr 0.2 0.3 1.0 2-HydroxyButyrate, Urine 0.0 - 2.7 umol/mmolCr 1.1 0.0 0.0 Oxalic Acid, Urine 0.7 - 12.4 umol/mmolCr 2.7 2.7 4.5 3-HydroxyButyrate, Urine 0.1 - 2.6 umol/mmolCr <1.6 0.5 0.2 2OH-Isovalerate, Urine 0.0 - 0.1 umol/mmolCr 0.1 0.0 0.0 AcetoAcetate, Urine 0.0 - 0.5 umol/mmolCr <0.9 High 0.0 0.0 3-OH,2-MethylButyrate, Urine 0.0 - 1.3 umol/mmolCr <0.6 Malonate, Urine 0.0 - 0.1 umol/mmolCr 0.0 0.0 0.2 High 3-HydroxyIsovalerate, Urine 2.1 - 27.3 umol/mmolCr 8.4 0.0 Low 3.4 MethylMalonate, Urine 0.0 - 0.6 umol/mmolCr <0.4 0.2 0.3 Benzoic Acid, Urine 0.0 - 14.6 umol/mmolCr <12.2 0.0 0.0 EthylMalonate, Urine 0.5 - 6.2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 04-13-2022 Miscellaneous Notes Last OV: 03/10/22 Last Refill: 02/15/22 FU OV: 08/25/22 Appropriate for refill routed to for review as ES KATELIN Alis Last RN documented in this encounter [facility] 04-13-2022 Note HNO ID: [id number] Author: Tiana Triana, RT(R) Service: Radiology Author Type: Technologist Type: Progress Notes Filed: 04/13/2022 11:08 AM Note Text: Radiology Service Progress Note PATIENT NAME: Ben Barr DATE OF SERVICE: April 13, 2022 TIME: 11:08 AM PATIENT IDENTITY VERIFICATION COMPLETED USING TWO (2) IDENTIFIERS: Name and Date of confirmed by patient verbally. FALL SCREENING: Has the patient had 2 falls in the last year or 1 fall with injury or currently using an Ambulatory Assistive Device (Walker, Cane, Wheelchair, Crutches, etc.)? No PATIENT GENDER DATA: Female. status: : No status: NO. PATIENT RELEVANT IMPLANT DATA REVIEWED: Yes RADIOLOGY DEPARTMENT: General X-ray: Exam(s) Completed: Abdomen X-Ray: Abdomen PERIPHERAL IV DATA: Not applicable SIGNED BY: RT Misty(R) April 13, 2022 11:[address] [facility] 04-13-2022 Note [facility] 04-13-2022 History of Present illness Narrative Radiology Service Progress Note PATIENT NAME: Ben Barr DATE OF SERVICE: April 13, 2022 TIME: 11:08 AM PATIENT IDENTITY VERIFICATION COMPLETED USING TWO (2) IDENTIFIERS: Name and Date of confirmed by patient verbally. FALL SCREENING: Has the patient had 2 falls in the last year or 1 fall with injury or currently using an Ambulatory Assistive Device (Walker, Cane, Wheelchair, Crutches, etc.)? No PATIENT GENDER DATA: Female. status: : No status: NO. PATIENT RELEVANT IMPLANT DATA REVIEWED: Yes RADIOLOGY DEPARTMENT: General X-ray: Exam(s) Completed: Abdomen X-Ray: Abdomen PERIPHERAL IV DATA: Not applicable SIGNED BY: RT Misty(R) April 13, 2022 11:08 AM documented in this encounter [facility] 04-13-2022 Note [facility] 04-13-2022 History of Present illness Narrative Images from the original note were not included. [facility] [place] Gastroparesis/Dysmotility Consultation SERVICE DATE: 04/13/2022 SERVICE TIME: 9:51 AM PRIMARY CARE PHYSICIAN: DO Nilam Chambers [facility] [address] [facility] [id number] My final recommendations will be communicated back to the requesting physician by way of shared Medical record or letter to requesting physician via [place] mail. Assessment ASSESSMENT 36 year old female with medical refractory gastroparesis, in the setting of global dysautonomia. Status post 2016 total abdominal colectomy with ileorectal anastomosis and diverting loop ileostomy (ileostomy now reversed). At the present time patient is struggling with considerable symptoms of nausea, vomiting, generalized fatigue/malaise, as well as variable abdominal pains. Additionally she exhibits odd patterns of obstipation which is rather atypical for patients with ileorectal anastomotic anatomy. Overall my suspicion is that her current symptoms represent evolution of her underlying dysautonomia and global dysmotility, however she will require further work-up to properly characterize her disease process, and rule out the possibility of any mechanical obstructions. Given the vomiting predominance of her symptoms she may be candidate for pyloromyotomy/pyloroplasty in the future. PLAN I discussed surgical therapy for gastroparesis in detail. Ben Barr is candidate for further dysmotility work-up. -Complete smart pill -Follow-up autoimmune gastroparesis labs -Gastroparesis diet as tolerated -Follow-up with me after completion of testing for further discussions Future considerations may include reevaluation of pelvic floor dysfunction, and referral back to functional colorectal surgery for reassessment. Would also benefit from nutritional counseling and involvement with behavioral health. Risks of the procedure including bleeding (including major bleeding requiring transfusion), perforation, infection/abscess, ulceration (need for adherence to acid suppressive therapy), exacerbation of symptoms, symptom recurrence, anesthesia related complications, cardiopulmonary events, thromboembolic events, aspiration/pneumonia, dental gum injury, failure to identify/treat a condition, need for additional procedures/surgeries, as well as other rare complications including were presented. Alternatives of Pyloroplasty, Pyloric Dilation and Botox, and continued medical/dietary management were reviewed. Patient elects to proceed and full written consent was obtained. NAME: Ben Barr CLINIC NO: [id number] DATE OF SERVICE: April 13, 2022 This is an initial consultation for Ben Barr who was referred to me by Dr. Frederic Douglass for evaluation of medical refractory gastroparesis. My final recommendation will be communicated via shared electronic medical record. CHIEF COMPLAINT Idiopathic Gastroparesis HISTORY OF PRESENT ILLNESS Ben Barr is a 36 year old female who comes in today for surgical evaluation for management of gastroparesis. The patient has been evaluated thoroughly including an EGD, and gastric emptying study. History is notable for anxiety/depression, common variable immunodeficiency, CKD stage 2, hypothyroid, gastric ulcers, intussusception (childhood), POTS, thrombocytopenia, and partial bowel resection (2006). TAC with TYLER (2016). Patient reports that she had life long severe constipation. Underwent TAC with TYLER which helped singificantly for many years. Currently patient is experiencing a lot of issues with nausea, vomiting, diarrhea/constipation which waxes and wanes. Top 3: 1) Nausea, 2) Vomiting, 3) Brain fog Duration of symptoms (months): Life Long Weight changes in last 3 months: Fluctuates, but gaining weight Diet: Mostly regular , tried to cut out sugar. But does have days where she can't eat. GERD: Minimal, mostly burning pains in her mid-upper abdomen Bowel Movements: Skips days, despite TYLER. Very mucous and sand-like . On good days will go 3-4 times per day. Pain: Lower abdominal pains, sharp. Occasional pains under her ribs. 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 nausea 5 2. retching 0 3. vomiting 5 4. stomach fullness 5 5. not able to finish a normal-sized meal 5 6. feeling excessively full after meals 5 7. loss of appetite 5 8. bloating (feeling like you need to loosen your clothes) 5 9. stomach or belly visibly larger 5 GCSI - 4.44 Scale (0-none; 1-very mild; 2-mild; 3-moderate; 4-severe; 5-very severe) PAST HISTORY 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) Hypogammaglobulinaemia, unspecified Hypothyroid Intussusception (HCC) as child Low back pain PMS (premenstrual syndrome) POTS (postural orthostatic tachycardia syndrome) POTS (postural orthostatic tachycardia syndrome) Thrombocytopenia (HCC) Tobacco abuse Vitamin D deficiency PAST SURGICAL HISTORY Procedure Laterality Date COLONOSCOPY FLX DX W/COLLJ SPEC WHEN PFRMD 2011 Colonoscopy COLONOSCOPY FLX DX W/COLLJ SPEC WHEN PFRMD Colonoscopy ESOPHAGOGASTRODUODENOSCOPY TRANSORAL DIAGNOSTIC 09/2008 neg duodenal bx ESOPHAGOGASTRODUODENOSCOPY TRANSORAL DIAGNOSTIC 12/17/14 EGD PAST SURGICAL HISTORY OF 2005 partial bowel resection PAST SURGICAL HISTORY OF ingrown toenails removed FAMILY HISTORY Problem Relation Age of Onset Diabetes Mother other (Raynauds [Other]) Mother Hyperlipidemia Mother Hypertension Mother Alcohol abuse Father Gout Father other (POTS [Other]) Sister both sisters other (AVM [Other]) Sister Cancer Paternal Grandmother lung; smoker other (healthy [Other]) Daughter Diabetes Maternal Aunt type 1 Thyroid Maternal Aunt grave's Thyroid Maternal Aunt Neel's Thyroid Maternal Uncle hypothyroid Social History Tobacco Use Smoking status: Former Packs/day: 0.50 Years: 6.00 Pack years: 3.00 Types: Cigarettes Quit date: 12/20/2013 Years since quittin.3 Smokeless tobacco: Never Substance Use Topics Alcohol use: No Drug use: No Current Outpatient Medications on File Prior to Visit Medication Sig predniSONE (DELTASONE) 10 mg tablet Take 1 tablet by mouth as directed. 2 tabs for 1 week, 1 tab for 1 week, 1/2 tab for 1 week ondansetron orally disintegrating (ZOFRAN ODT) 4 mg disintegrating tablet TAKE ONE TABLET BY MOUTH EVERY 8 HOURS NEEDED FOR NAUSEA VOMITING immune globulin, human,, IgG, (GAMMAGARD LIQUID) 10 % soln Inject 550 mL intravenously every 3 weeks. propranolol ER (INDERAL LA) 60 mg 24 hr capsule TAKE ONE CAPSULE BY MOUTH ONCE DAILY fluticasone (FLONASE) 50 mcg/actuation nasal spray Use in the nose. omeprazole (PRILOSEC) 40 mg capsule Take 40 mg by mouth once daily. busPIRone (BUSPAR) 10 mg tablet Take 30 mg by mouth. 0.9 % sodium chloride (NACL 0.9%) infusion Inject 200 mL/hr intravenously continuous. 1L during IVIG infusions OXcarbazepine (TRILEPTAL) 150 mg tablet Take 1 tablet by mouth twice daily. diphenhydrAMINE (BENADRYL) 25 mg capsule Take 1 capsule by mouth as directed. Use as directed. topiramate (TOPAMAX) 25 mg tablet Take 1 tablet by mouth daily at bedtime. Current Facility-Administered Medications on File Prior to Visit Medication acetylcholine 10% solution - [facility]chs compounding REVIEW OF SYSTEMS: General: No weight loss, malaise or fevers. Neuro: No Hx of stroke or seizures Respiratory: No history of current cough or dyspnea, or pneumonia in the past 6 weeks. No history of respiratory/pulmonary symptoms or problems Cardiovascular: Positive for: negative GI: See HPI : No history of UTI in past 6 weeks. No history of renal failure. Not currently on or requiring dialysis. No history of symptoms or problems. ROADWAY TECHNICIAN: Negative for abnormal vaginal bleeding, abnormal vaginal discharge. : Denies Endocrine: No history of diabetes. Has not taken steroids within the past 30 days. No history of endocrinological symptoms or problems. Hematology: No history of bleeding or clotting disorder. Pt is not taking anti-coagulation or platelet medications. No history of hematological symptoms or problems. Oncology: No history of CA metastasis, chemo within 30 days, or radiotherapy within 90 days. Has not lost 10% of body wt in 6 months. No history of oncological symptoms or problems. Psych: Anxiety Musculoskeletal: Negative for joint pain or swelling, back pain or muscle pain. Skin: Negative for lesions, rash and itching. Physical Exam BP 100/63 (BP Site: Right Arm, BP Position: Sitting, BP Cuff Size: Regular Adult) Pulse 82 Ht 154.9 cm (5' 1 ) Wt 64 kg (141 lb) LMP 02/16/2022 (Approximate) BMI 26.64 kg/m GENERAL: AAOx3, NAD EYES: EOMI, sclera non-icteric ORAL: Moist membranes, tongue midline NECK: No Cervical LN, normal ROM CARDIOVASCULA: RRR PULMONARY: CTAB ABDOMEN - Soft, ND, NT EXTREMITIES: Warm, well perfused, No LE Edema PSYCH: Appropriate mood and Affect SIGNATURE: Becka Rubi DO PATIENT NAME: Ben Barr DATE: April 13, 2022 TIME: 9:51 AM Medical Decision Making: Problems: Moderate: New problem with uncertain prognosis Data: Unique source(s) for external note(s) reviewed: 2 Unique test result(s) reviewed: 3+ Risk: Low: Low risk from testing/treatment Medical Decision Making Level: 4 - Moderate documented in this encounter [facility] 04-13-2022 Nurse Note What is the reason for your visit today? Gp consult Who is your referring physician? Lizy soria Are you having poor oral intake? NO Have you had unintentional weight loss of 15 lbs/7 Kg in the last 3-6 months? NO Bowels: regular Wound: clean & dry Temperature: No Drains: No documented in this encounter [facility] 04-13-2022 History of Present illness Narrative GASTROPARESIS CONSULT Patient is referred by Dr. Nilam Garcia for an opinion regarding GP and my final recommendations will be communicated back to the requesting physician by way of a copy of today's office notes. PRESENTING COMPLAINT & HISTORY Ben is a 36 yr old female w/hx of anxiety/depression, common variable immunodeficiency, CKD stage 2, hypothyroid, intussusception (childhood), POTS, thrombocytopenia, and partial bowel resection (2005) that had an abnormal gastric emptying study 02/09 showing 29% retention at 4 hours. She has had lifelong issues and ended up with a total colectomy for severe constipation. She has incomplete evacuation. And dyssynergic defecation. Gastroparesis Symptoms Reflux/heartburn: Yes Abdominal pain/discomfort: Yes Weight loss: No Lost na lbs in na months Weight gain: No Gained na lbs in na months Diarrhea: Yes Constipation: Yes Malnutrition: No Gastroparesis cardinal symptom index 1. Nausea: 5 2. Retchin 3. Vomitin 4. Stomach fullness: 3 5. Not able to finish a normal-sized meal: 3 6. Feeling excessively full after meals: 4 7. Loss of appetite: 3 8. Bloating (feeling like you need to loosen your clothes): 5 9. Stomach or belly visibly larger: 4 Scale (0-none; 1-very mild; 2-mild; 3-moderate; 4-severe; 5-very severe) MEDICATION HISTORY Promotility Drugs - Reglan (Metoclopramide): No - Motilium (Domperidone): No - Erythromycin (E-mycin): No - Propulsid (Cisapride)_: No Other - Tricyclic Antidepressants (nortriptyline - Pamelor; amitriptyline - Elavil): No - Buspirone (Buspar): No - Mirtazapin (Remeron): No Anti-Nausea Medications - Compazine (Prochlorperazine): No - Phenergan (Promethazine): Yes - Benadryl (Diphenhydramine): No - Zofran (Ondansetron): Yes - Scopace (Scopolamine Patch): No - Tigan (Trimethobenzamide)_: No Constipation Medications - Bulking Agents (Metamucil,Citrucel, Fibercon): Yes - Osmotic Laxatives (MOM, Polyethylene glycol (PEG), lactulose, sorbitol,MiraLax, Chronulal, Cephulac,Xylitol): Yes - Stimulant Laxatives (Ex-Lax, Senokot,Correctol, Dulcolax): Yes - Stool Softeners (Colace): Yes - Chloride Channel Activator (Amitiza): Yes - Linzess: Yes - Trulance: Yes - Motegrity: No Pain Medications - Does the patient see a paint sprayer sandblaster for chronic abdominal pain?No - Is the patient taking narcotic pain medication for chronic abdominal pain? No - Narcotic Medications: (Tramadol, Fentanyl, codeine, hydrocodone, Hydromorphone, methadone, morphine, Oxycodone) No Drug use - History or current drug use (Marijuana, Cocaine, Heroine, etc...) No Eating Disorders - Does the patient have a history of eating disorders No If yes, please explain: na Psychiatric Disorders - Does the patient have a history of psychiatric disorders including PTSD: No If yes, please explain: na Nutrition - Has the patient met with a art preparator for diet recommendations with Gastroparesis? No - Jejunostomy (J-tube): _No - Gastrostomy (G-tube): No - Gastro-Jejunostomy (GJ-tube): _No - Nasojejunal (NJ-tube): _No - Nasogastric (NG-tube): _No - TPN (IV): _No - IV home hydration (IV): _No Medical Records - Has the patient had a smart capsule study completed? No - Does the patient have a history of any foregut surgery (vagotomy, hiatal hernia repair/JALEESA Fundoplication, Heller Myotomy, gastrectomy, gastric bypass)?No If surgery, recent UGI? No - EGD: Yes - Botox Injections: No If yes was the Botox effective, and for how long: na Patient Name Ben Barr Age [age] year old Gastroparesis Consult Test Date Completed Results Labs EGD 01/31 22 [facility] Findings: The Z-line was irregular and was found 40 cm from the incisors. The examined esophagus was normal. The entire examined stomach was normal. The cardia and gastric fundus were normal on retroflexion. The examined duodenum was normal. Biopsies for histology were taken with a cold forceps for evaluation of celiac disease nwithin the bulb and second portion. Impression: - Z-line irregular, 40 cm from the incisors. - Normal esophagus. - Normal stomach. - Normal examined duodenum. Biopsied. colonoscopy 01/02/22 [facility] Impression: Evidence of prior subtotal colectomy with end to end ileorectal anastomosis, normal new terminal ileum Normal colonic mucosa, residual solid stool noted Small nonbleeding internal and external hemorrhoids Gastric Emptying Study 01/30 22 [facility] IMPRESSION: REDUCED RATE OF GASTRIC EMPTYING OF A SOLID MEAL. RESULT: Solid study demonstrates 87% gastric retention at 1 hour (normal range, 37-90%), 81% retention at 2 hours (normal range, 30-60%), and 29% retention at 4 hours (normal range, 0-10%). There is no evidence of accelerated emptying of gastric contents, with 87% retention at 1 hour (rapid emptying is <30% retention at [address] Abd/Pelvis 01/28 22 [facility] IMPRESSION: Three areas of short segment small bowel intussusception in the left upper quadrant (two are new from 01/26/2022 and one is relatively similar in appearance to 01/26/2022), as described. No evidence for associated bowel obstruction (enteric contrast is noted to be in the small bowel distal to these areas of intussusception). US Rt Upper Quadrant 01/26 22 [facility] IMPRESSION: Hepatic steatosis. No cholelithiasis or biliary ductal dilatation. GI Colon Barium enema [facility] IMPRESSION: NO LEAK OR OBSTRUCTION. Consults GI PAST SURGICAL HISTORY Procedure Laterality Date COLONOSCOPY FLX DX W/COLLJ SPEC WHEN PFRMD 2011 Colonoscopy COLONOSCOPY FLX DX W/COLLJ SPEC WHEN PFRMD Colonoscopy ESOPHAGOGASTRODUODENOSCOPY TRANSORAL DIAGNOSTIC 09/2008 neg duodenal bx ESOPHAGOGASTRODUODENOSCOPY TRANSORAL DIAGNOSTIC 12/17/14 EGD PAST SURGICAL HISTORY OF 2005 partial bowel resection PAST SURGICAL HISTORY OF ingrown toenails removed Current Outpatient Medications Medication Sig Dispense Refill predniSONE (DELTASONE) 10 mg tablet Take 1 tablet by mouth as directed. 2 tabs for 1 week, 1 tab for 1 week, 1/2 tab for 1 week 30 tablet 0 ondansetron orally disintegrating (ZOFRAN ODT) 4 mg disintegrating tablet TAKE ONE TABLET BY MOUTH EVERY 8 HOURS NEEDED FOR NAUSEA VOMITING topiramate (TOPAMAX) 25 mg tablet Take 1 tablet by mouth daily at bedtime. 30 tablet 2 immune globulin, human,, IgG, (GAMMAGARD LIQUID) 10 % soln Inject 550 mL intravenously every 3 weeks. 550 mL 11 propranolol ER (INDERAL LA) 60 mg 24 hr capsule TAKE ONE CAPSULE BY MOUTH ONCE DAILY 30 capsule 2 fluticasone (FLONASE) 50 mcg/actuation nasal spray Use in the nose. omeprazole (PRILOSEC) 40 mg capsule Take 40 mg by mouth once daily. busPIRone (BUSPAR) 10 mg tablet Take 30 mg by mouth. 0.9 % sodium chloride (NACL 0.9%) infusion Inject 200 mL/hr intravenously continuous. 1L during IVIG infusions 1000 mL 11 OXcarbazepine (TRILEPTAL) 150 mg tablet Take 1 tablet by mouth twice daily. 0 diphenhydrAMINE (BENADRYL) 25 mg capsule Take 1 capsule by mouth as directed. Use as directed. 0 Current Facility-Administered Medications Medication Dose Route Frequency Provider Last Rate Last Admin acetylcholine 10% solution - [facility]chs compounding 20 mL IRRIGATION ONE TIME Saroj Foss APRN.MANAGER TRADING ALLERGIES Allergen Reactions Antidepressants [Se* Other: See Comments It knocks me out. Rondec [Bromphenira* crying for 12 solid hours-per mom Family History Problem Relation Age of Onset Diabetes Mother other (Raynauds [Other]) Mother Hyperlipidemia Mother Hypertension Mother Alcohol abuse Father Gout Father other (POTS [Other]) Sister both sisters other (AVM [Other]) Sister Cancer Paternal Grandmother lung; smoker other (healthy [Other]) Daughter Diabetes Maternal Aunt type 1 Thyroid Maternal Aunt grave's Thyroid Maternal Aunt Neel's Thyroid Maternal Uncle hypothyroid Social History Tobacco Use Smoking status: Former Packs/day: 0.50 Years: 6.00 Pack years: 3.00 Types: Cigarettes Quit date: 12/20/2013 Years since quittin.3 Smokeless tobacco: Never Substance Use Topics Alcohol use: No Drug use: No GI SPECIFIC ROS Difficulty swallowing / foods sticking in throat: No Hoarseness: No Chronic cough: No Regurgitation: Yes Chest pain: No Recent change in bowel movements: No Bloody or black, bowel movements: No Loss of control of bowel movements: No Night sweats, fever, chills: No Thought or memory problems: No Fluid in abdomen (ascites): No Prominent leg swelling: No Vomiting blood: No REVIEW OF SYSTEMS GENERAL: No weight loss, malaise or fevers HEENT: Negative for frequent or significant headaches, No changes in hearing or vision, no nose bleeds or other nasal problems RESPIRATORY: Negative for cough, hemoptysis, wheezing, COPD, dyspnea or shortness of breath CARDIOVASCULAR: See HPI : No history of dysuria, frequency or incontinence ROADWAY TECHNICIAN: Negative for abnormal vaginal bleeding, abnormal vaginal discharge MUSCULOSKELETAL: Negative for joint pain or swelling, back pain or muscle pain SKIN: Negative for lesions, rash, and itching PSYCH: sleep fragmented ENDOCRINE: Negative for cold or heat intolerance, polyuria, polydipsia and goiter NEURO: SEE HPI PHYSICAL EXAMINATION LMP 02/16/2022 General appearance: alert and in no acute distress Skin: Skin color, texture, turgor normal, no suspicious rashes or lesions Head: normal Eyes: Anicteric sclera. Pupils are equally round and reactive to light. Extraocular movements are intact. Ears: Negative Nose/Sinuses: Negative Oropharynx: Negative findings: lips normal without lesions Neck: Supple, no adenopathy; thyroid symmetric, normal size, no bruits Back: motor and sensory appear to be normal Lungs: Unlabored on room air Heart: RRR without murmur, gallop, or rubs. No ectopy Abdomen: Normal abdominal exam Extremities: Negative findings: No deformities present Musculoskeletal: Negative findings: No deformities present Peripheral pulses: Normal Neuro: Negative findings: speech normal, mental status intact, cranial nerves 2-12 intact Plan Given the risk of autoimmune gastrointestinal dysmotility (AGID) as a possible cause for this patient's symptoms, as well as the fact the patient has yet to be evaluated for AGID, a full workup will be undertaken. If the antibody tests reveal a positive result the patient will then need to be treated with IVIG therapy as this is the only known treatment available at this time for AGID. This patient is at significant risk of global dysmotility given the symptoms and lack of response to previous treatment. Given the fact that the approach to treatment would change dramatically depending on the areas involved in the delay it is vital that we proceed with total gut motility testing. The most effective approach to evaluate the entire intestinal motility is wireless capsule motility testing (Smart Pill). Without this testing there is an increased risk of inappropriate therapy as well as delay in care and wore outcome. Please see plan for further recommended testing. Encounter Diagnosis ICD-10-CM 1. Gastroparesis K31.84 CK CREATINE KINASE LD LACTATE DEHYDRO HGB A1C TSH BLD T4 FREE/FREE THYROX PYRUVATE+LACTATE BL AMINO ACIDS, PLASMA W/ CONSULTATION CARNITINE FREE/TOTAL, PLASMA ACETYLCHOLINE REC BINDING AB VOLTAGE GATED CA IGG VOLTAGE-GATED POTASSIUM HEARD AB GLUTAMIC AC DECARBOXYLASE AB PLASMA THYMIDINE DETERMINATION ORGANIC ACIDS UR, QUANT W/CONSULTATION IGA BLD IGG IGM C-REACTIVE PROTEIN (CRP) SED RATE WESTERGREN CAPSULE ENDOSCOPY SMART CYTOKINE PANEL 13, SERUM ESTROGEN FRACTION BL 2. History of colectomy Z90.49 XR ABDOMEN 1V SUP[place] ADULT [place] ANORECTAL MANOMETRY 3. Chronic idiopathic constipation K59.04 XR ABDOMEN 1V SUPINE ADULT [place] ANORECTAL MANOMETRY Frederic Douglass DO 04/12/2022 documented in this encounter [facility] 04-12-2022 Miscellaneous Notes SPECIALTY CARE COORDINATION CHART REVIEW Contacted patient regarding upcoming appointment in the Gastroparesis Clinic. No answer. Message and call back number provided. Patient identified for Care Coordination from: gastroparesis Last PCP office visit: Visit date not found Next OV: 04/13/2022 CHRONIC DX: Gastroparesis Hypothyroid CVI CKD POTS Records Reviewed records and summarized for upcoming appointment in the gastroparesis clinic. CARE GAPS: Tbd CARE COORDINATION OUTREACH PLAN: TBD after initial appointment. Paulina Dillon RN April 12, 2022 documented in this encounter [facility] 04-11-2022 Note [facility] 04-11-2022 History of Present illness Narrative UNIVERSAL PROTOCOL / SAFETY CHECKLIST Procedure to be Performed: EMG Sign In: A Moment of CARE was completed. Personnel directly involved with the procedure wore the appropriate PPE (Personal Protective Equipment). Patient/Surrogate Stated/Verified: PATIENT VERIFIED(optional for EMERGENT procedures): Patient name, Date of , Relevant allergies, and The intended procedure Time Out Communication: Intended patient and procedure match the source documents. Correct side/site marked and visible. Sign Out: SIGN OUT (optional for EMERGENT procedures): Post-procedure follow-up management communicated and Plan of Care Visit completed when applicable. [place], EMG Tech Beth Mccullough MD Staff, [facility] [place] Electronically signed April 11, 2022 3:04 PM documented in this encounter [facility] 03-28-2022 Note [facility] 03-28-2022 History of Present illness Narrative VIRTUAL VISIT PROGRESS NOTE This is a virtual visit. It required patient-provider interaction for the medical decision making as documented below. I had the pleasure of seeing Ms. Barr in the Allergy & Immunology Clinic at the [facility] for follow up of CVID Last visit (D83.9) CVID (common variable immunodeficiency) (HCC) (primary encounter diagnosis) Comment: On IgGR 45g every 3 weeks. Has some wear off effect with infections and other symptoms Plan: Monitoring for infections. Will try 55g every 3 weeks for some immunomodulating effects on cytopenia. Recent labs OK (K63.9) Enteropathy Comment: still vomiting. Found to have intussusception Plan: Awaiting GI evaluation (D75.9) Cytopenia Comment: improved a bit Plan: sees HEME She is now on 55g every 3 weeks. +nasal ulcer +Achilles pain Current Outpatient Medications Medication Sig immune globulin, human,, IgG, (GAMMAGARD LIQUID) 10 % soln Inject 550 mL intravenously every 3 weeks. propranolol ER (INDERAL LA) 60 mg 24 hr capsule TAKE ONE CAPSULE BY MOUTH ONCE DAILY fluticasone (FLONASE) 50 mcg/actuation nasal spray Use in the nose. omeprazole (PRILOSEC) 40 mg capsule Take 40 mg by mouth once daily. fluconazole (DIFLUCAN) 100 mg tablet Take 1 tablet by mouth once daily. busPIRone (BUSPAR) 10 mg tablet Take 30 mg by mouth. 0.9 % sodium chloride (NACL 0.9%) infusion Inject 200 mL/hr intravenously continuous. 1L during IVIG infusions OXcarbazepine (TRILEPTAL) 150 mg tablet Take 1 tablet by mouth twice daily. diphenhydrAMINE (BENADRYL) 25 mg capsule Take 1 capsule by mouth as directed. Use as directed. Current Facility-Administered Medications Medication Dose Route Frequency acetylcholine 10% solution - cchs compounding 20 mL IRRIGATION ONE TIME Allergies As of Date: 03/28/2022 Allergen Noted Reaction ANTIDEPRESSANTS [SEROTONIN 5HT-3 *10/06/2010 Other: See Comments HUNTER [BROMPHENIRAMINE-PSEUDOEPH*07/30/2008 Fully Assessed 02/21/2022 Past Medical History: ACTIVE PROBLEM LIST Other Vitamin B12 Deficiency Anemia Abdominal Pain, Generalized Pituitary Tumor Hypothyroidism Tobacco Abuse Low Back Pain Depression Anxiety Pms (Premenstrual Syndrome) Dysautonomia Hypogammaglobulinemia (Hcc) Recurrent Convulsions (Hcc) Recurrent Vomiting Abdominal Pain Summary Syncope and collapse Portal Vein Thrombosis Liver Infarct 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 Anticoagulation Management Encounter Malnutrition of Mild Degree (Hcc) Attention to Ileostomy (Hcc) Postoperative Pain Postoperative Ileus (Hcc) Common Variable Agammaglobulinemia (Hcc) Recurrent Infections Enteropathy Cytopenia Right Upper Quadrant Abdominal Pain Nausea & Vomiting Transaminitis Intussusception (Hcc) H/O: Pituitary Tumor Generalized Anxiety Disorder History of Colectomy Chronic Insomnia Stage 2 Chronic Kidney Disease Nicotine use disorder, F17.2 Pots (Postural Orthostatic Tachycardia Syndrome) Somnambulism Somniloquy Sleep-Related Movement Disorder Malaise and Fatigue REVIEW OF SYSTEMS GENERAL: Fatigue HEENT: Negative for frequent or significant headaches, No changes in hearing or vision, no nose bleeds or other nasal problems NECK: Negative for lumps, goiter, pain and significant neck swelling RESPIRATORY: Negative for cough, hemoptysis, wheezing, COPD, dyspnea or shortness of breath CARDIOVASCULAR: Negative for chest pain, leg swelling, hypertension, CHF or palpitations GI: See HPI : No history of dysuria, frequency or incontinence MUSCULOSKELETAL: joint pain or swelling SKIN: See HPI HEMATOLOGY/LYMPHOLOGY: Negative for prolonged bleeding, bruising easily or swollen nodes ENDOCRINE: Negative for cold or heat intolerance, polyuria, polydipsia and goiter NEURO: No history of headaches, syncope, paralysis, seizures or tremors PHYSICAL EXAMINATION: VIDEO EXAM: (if completed, performed via video enabled technology) GENERAL: alert and appropriate, in no distress, well-hydrated, well nourished, and happy, smiling, interactive SKIN: no rash noted HEAD: normocephalic, no abnormality or lesion noted EYES: no injection and visual acuity is grossly normal EARS: hearing grossly normal NOSE: external nose normal without rhinorrhea OROPHARYNX: moist mucus membranes NECK: full ROM, no cervical LNs noted RESPIRATORY: breathing non-labored CHEST: equal chest rise with normal respiratory effort ABDOMEN: soft and non-tender NEUROLOGIC: no obvious deficit LABS: Component Latest Ref Rng & Units 03/10/2022 Protein, Total 6.3 - 8.0 g/dL 7.1 Albumin 3.9 - 4.9 g/dL 4.2 Calcium 8.5 - 10.2 mg/dL 9.3 Bilirubin, Total 0.2 - 1.3 mg/dL 0.5 Alkaline Phosphatase 34 - 123 U/L 84 AST 13 - 35 U/L 36 (H) ALT 7 - 38 U/L 37 Glucose 74 - 99 mg/dL 95 BUN 7 - 21 mg/dL 20 Creatinine 0.58 - 0.96 mg/dL 0.93 Sodium 136 - 144 mmol/L 138 Potassium 3.7 - 5.1 mmol/L 3.9 Chloride 97 - 105 mmol/L 104 CO2 22 - 30 mmol/L 23 Anion Gap 9 - 18 mmol/L 11 eGFR >=60 mL/min/1.73m 82 WBC 3.70 - 11.00 k/uL 6.44 RBC 3.90 - 5.20 m/uL 3.86 (L) Hemoglobin 11.5 - 15.5 g/dL 12.6 Hematocrit 36.0 - 46.0 % 36.0 MCV 80.0 - 100.0 fL 93.3 MCH 26.0 - 34.0 pg 32.6 MCHC 30.5 - 36.0 g/dL 35.0 RDW-CV 11.5 - 15.0 % 11.8 Platelet Count 150 - 400 k/uL 259 MPV 9.0 - 12.7 fL 9.4 Absolute nRBC <0.01 k/uL <0.01 Labs and films from outside facility reviewed today. A/P: (D83.9) CVID (common variable immunodeficiency) (HCC) (primary encounter diagnosis) (K63.9) Enteropathy (D75.9) Cytopenia (B99.9) Recurrent infections CVID Recent severe cytopenias Rebounded now on higher IVIG Still rash, nasal ulcers, tendon pain Appears inflammatory Unclear exact mechanism but likely immune related Will try prednisone taper See me in 1 month F/U:1 months documented in this encounter [facility] 03-13-2022 Miscellaneous Notes Discontinued on 03/10/22 as course complete. Request refused. Alis Last RN documented in this encounter [facility] 03-10-2022 Note [facility] 03-10-2022 Instructions Saroj Foss APRN.MANAGER TRADING - 03/10/2022 12:04 PM EST 1) Need to schedule the following: -Autonomic reflex with tilt -QSART 2) Topamax 25 mg at bedtime -Potential side effects: numbness and tingling, kidney stones (calcium phosphate) word finding difficulties and other cognitive side effects, loss off appetite, change in taste with sodas or reversible glaucoma. If you develop numbness and tinglng , buy Potassium 99 mg over the counter and use 1 or 2 /day. 3) Labs: -Today -CMP in 1 month documented in this encounter [facility] 03-10-2022 History of Present illness Narrative Images from the original note were not included. [facility] Follow-Up/Established Patient Visit Chief Complaint/Issues: Ben Barr is a 36 year old handed right-handed female seen in the [facility] for: Follow up Weakness Brief HPI /Most Recent Department Assessment and Plan Seen most recently 11/23/2021: Since last visit, she feels the weakness in her legs has progressed. Though she has not had any recurrent episodes of leg numbness, she feels a tremulousness throughout her body, as well as leg weakness which can make it hard for her to go down the stairs. Weakness is worse in the AM, as well as brain fog. She has significant fatigue, and is sleeping up to 17 hours during the day on weekends. Although weakness is worse in AM, we will need to rule out MG due to feeling of progression and extreme fatigue. Will check labs for tremor. She does seem to have worsening tremor since our last visit, it is now visible at rest (sometimes) and in lower extremities with walking. She has continued head pressure and neck pain, most consistent with a tension headache. Will trial Robaxin, next consideration may be for Cymbalta vs gabapentin (concern for sedation). IIH ruled out by optho WNL exam. We discuss her skin biopsy was WNL, no demonstration of autonomic neuropathy. We are still awaiting her tilt. We discuss her MRI brain and cervical WNL. 1. Labs 2. Robaxin 500 mg up to 3 x daily as needed 3. Consult to sleep medicine 4. Consult to movement disorders 5. Start propranolol 60 mg ER, stop metoprolol Following with sleep medicine, Dr. Holguin, last seen 02/10/2022: ...lifelong history of somnambulism, somniloquy, insomnia, and more recent fatigue and long sleep periods due to medical illness. Fatigue>>sleepiness Plan: - BSM for CBTI - Go To Sleep leea nn in the interim waiting for intake - In lab PSG to evaluate for NREM parasomnia triggers e.g. sleep apnea (perhaps positional), PLMS - Safety measures discussed - Recommended creating 2-3 step process to get to areas she wants to avoid (like the refrigerator) - child-proof locks on pantry and kitchen cabinets - keep stairs to basement clear - unsafe to barricade these given step-son's bedroom is downstairs - Lock windows and doors - Weapons locked away at night (and any guns unloaded and locked away) - Follow up 2 weeks after study for results. Seen by Dr. Noyola, [facility] Movement Disorders 11/29/2021: 11/29/2021 Visit: Agree with Sleep Medicine referral. Would consider Sleep Psychology depending on the diagnosis Can consider a referral to Headache Neurology Continue propranolol. Further improvement in tremor is likely going to come at the cause of significant side effects Follow up with me in mid February, . Please reach out to me prior to the appointment with an update so we can decide about possibly switching it to in person Seen most recently by Dr. Noyola 03/07/2021: ...with symptoms consistent with essential tremor with recent worsening and emergent of atypical symptoms. At this point patient's medical and autonomic concerns are far more pressing than her tremor. Propranolol which is being used for other purposes has fortunately provided adequate control for the time being. If indicated, increasing the dose would assist in controlling tremor, but we both agreed that such a chance should only be made if indicated for a more important concern. Would like to examine in person in a few months to assess for any major changes, but my role in her care is likely to be quite limited for the foreseeable future. Today: She was hospitalized at [facility] after seeing hematology here, due to abnormal labs. She had CKD2 and abnormal liver labs. She was told maybe she has Lupus. She has another intussusception and is seeing a GI specialist coming up on April 13. PMH significant for CVID, CKD stage II, seizures, hypothyroidism, depression, total colectomy in 2016 with ileoanal anastomosis in 2017. She was sent by her oncologist to the ED for the nausea, vomiting, abdominal pain. She was noted to have elevated liver enzymes and testing positive for Hepatitis B. Patient states that her nausea and abdominal pain are chronic but have worsened over the last 2 weeks. She has been unable to keep anything solid down. She states she was told she has a bezoar and was planned on getting an EGD on 02/01/2022. She has been vomiting almost everyday, nonbilious, non bloody, states the zofran she has at home is not helping. She also states that her bowel movements have changed, usually she has loose stools everyday but currently she is having small mucousy stools and feeling like she is not emptying completely. No blood in the stools. Her abdominal pain is generalized but worse in the upper abdomen. She denies fever but does have chills and night sweats CMP: Na 135, ALP 205, AST 334, ALT 182, T bili 0.8TSH 4.4 CBC unremarkableUA unremarkable- Imaging:- RUQ USHepatic steatosis. No cholelithiasis or biliary ductal dilatation. CT abd/pelvis1. No acute findings are identified. . Nonobstructive short segment intussusception involving small bowel in the left abdomen which can be seen as a transient finding in adults. 3. Postsurgical changes. Received 4mg morphine, 500cc bolus, percocet 5, reglan 5mg in ED Admitted for observation. Pt was evaluated by general surgery who did not find indication for surgical intervention specially with her having bowel movement. Pt was found to have leukopenia and thrombocytopenia. Evaluated by hematology who recommended follow up with wet finisher as OP .She was seen by GI . EGD was done Z-line irregular, 40 cm from the incisors.- Normal esophagus. - Normal stomach. - Normal examined duodenum. Biopsied. For transaminases elevation, lab work including viral and autoimmune studies: CHRIS (+), SMA (-), iron studies 214/<231/>92.6/ferritin 589-> HFE in process, Alpha 1 (-) ,CMV (-), EBV in process, mitochondrial->in process ; ethyl glucuronide negative. Rest of labs are pending. Gastric emptying study compatible with gastroparesis. Pt was found safe to be discharged home with follow up with dysmotility clinic , GI and hematology Per heme/onc Dr. Cohen 01/30/22: 1. New pancytopenia consisting of moderate leukopenia, moderate thrombocytopenia and mild normochromic/normocytic anemia. Dr. Eze Sarmiento initiated outpatient evaluation, which is ongoing. I suggested continued outpatient followup in the future. 2. Intussusception. Continue GI and surgical evaluations. She is concerned she might have myopathy. Her grandmother had myopathy. She states she feels unable to go down the stairs, and her legs get weak and wobbly. She feels weakness in the upper legs, no noted weakness in the lower legs or feet. She notices she feels weak chopping vegetables, she feels weak. Her hands go numb sometimes, and gets a tingling sensation. Her upper arms feel weak, but her hands feel strong. No fevers. She reports she is getting a rash almost daily, which goes away for a few hours. It is a flat pink eruption, no itching, no pain, no blistering. No rash on her face or joints. She has been having a rash daily for about 6 months. Headache is constant. Described as pressure. No change in symptoms since starting the propranolol. We tried Robaxin. No sound or smell sensitivity, is light sensitive. She has chronic nausea and sometimes vomiting, unsure if associated with her headache. No change in headache intensity with activity. PMH Anxiety CVID CKD2 Depression Hypogammaglobulinemia Hypothyroidism Intussusception (bowel resection) Low back pain Pituitary microadenoma PMS PTSD Seizure disorder Tobacco use Upper GI Bleed 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) Hypogammaglobulinaemia, unspecified Hypothyroid Intussusception (HCC) as child Low back pain PMS (premenstrual syndrome) POTS (postural orthostatic tachycardia syndrome) POTS (postural orthostatic tachycardia syndrome) Thrombocytopenia (HCC) Tobacco abuse Vitamin D deficiency PAST SURGICAL HISTORY Procedure Laterality Date COLONOSCOPY FLX DX W/COLLJ SPEC WHEN PFRMD 2011 Colonoscopy COLONOSCOPY FLX DX W/COLLJ SPEC WHEN PFRMD Colonoscopy ESOPHAGOGASTRODUODENOSCOPY TRANSORAL DIAGNOSTIC 09/2008 neg duodenal bx ESOPHAGOGASTRODUODENOSCOPY TRANSORAL DIAGNOSTIC 12/17/14 EGD PAST SURGICAL HISTORY OF 2005 partial bowel resection PAST SURGICAL HISTORY OF ingrown toenails removed ALLERGIES Allergen Reactions Antidepressants [Se* Other: See Comments It knocks me out. Rondec [Bromphenira* crying for 12 solid hours-per mom Social History Tobacco Use Smoking status: Former Packs/day: 0.50 Years: 6.00 Pack years: 3.00 Types: Cigarettes Quit date: 12/20/2013 Years since quittin.2 Smokeless tobacco: Never Substance Use Topics Alcohol use: No Drug use: No FAMILY HISTORY Problem Relation Age of Onset Diabetes Mother other (Raynauds [Other]) Mother Hyperlipidemia Mother Hypertension Mother Alcohol abuse Father Gout Father other (POTS [Other]) Sister both sisters other (AVM [Other]) Sister Cancer Paternal Grandmother lung; smoker other (healthy [Other]) Daughter Diabetes Maternal Aunt type 1 Thyroid Maternal Aunt grave's Thyroid Maternal Aunt Neel's Thyroid Maternal Uncle hypothyroid Current management of orthostatic condition Conservative Measures: Increased water intake (2-2.5 liters of water daily) Increased salt intake (3-5 grams daily) Compression stockings Cardiac Rehab / Progressive exercise Medications Current Outpatient Medications on File Prior to Visit Medication Sig immune globulin, human,, IgG, (GAMMAGARD LIQUID) 10 % soln Inject 550 mL intravenously every 3 weeks. propranolol ER (INDERAL LA) 60 mg 24 hr capsule TAKE ONE CAPSULE BY MOUTH ONCE DAILY fluticasone (FLONASE) 50 mcg/actuation nasal spray Use in the nose. omeprazole (PRILOSEC) 40 mg capsule Take 40 mg by mouth once daily. fluconazole (DIFLUCAN) 100 mg tablet Take 1 tablet by mouth once daily. busPIRone (BUSPAR) 10 mg tablet Take 30 mg by mouth. 0.9 % sodium chloride (NACL 0.9%) infusion Inject 200 mL/hr intravenously continuous. 1L during IVIG infusions OXcarbazepine (TRILEPTAL) 150 mg tablet Take 1 tablet by mouth twice daily. diphenhydrAMINE (BENADRYL) 25 mg capsule Take 1 capsule by mouth as directed. Use as directed. Current Facility-Administered Medications on File Prior to Visit Medication acetylcholine 10% solution - [facility] compounding Relevant Current Medications: Oxcarbazepine Buspar Propranolol ER 60 mg Medications tried previously (failed): Methocarbamol Gabapentin Relevant Work Up To Date Labs ACHR binding Ab WNL CRP, sed WNL Cerulopasmin x2, vit E WNL Ferritin, iron + TIBC WNL Hgb A1C WNL Vit D WNL B12 WNL MRI Brain and Cervical Spine w/ w/o 10/11/2021 IMPRESSION: No evidence of demyelination or acute demyelinating lesion in the brain and cervical spine. Skin Biopsy 11/10/2021 IMPRESSION: The epidermal nerve fiber densities are normal at all sites. There is no evidence of a small fiber sensory neuropathy. Autonomic Reflex w/ Tilt 06/29/2009 Heart rate response to deep breathing is normal via the mean heart rate range and the E:I ratio. Heart rate response to the Valsalva maneuver, as assessed by the Valsalva ratio is reduced and the blood pressure responses to phase II of the maneuver is reduced and the blood pressure response to phase IV of the maneuver is absent. During 10 minutes of 60 degrees head-up tilt, heart rate and blood pressure responses were normal. This is abnormal cardiovascular autonomic test panel due to the abnormal heart rate and blood pressure responses to the Valsalva maneuver. These findings are non-specific for etiology but suggest some degree of cardiovagal and cardiovascular adrenergic dysfunction. 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 QSART 06/29/2009 QSART responses are essentially absent at all sites. This finding is nonspecific for etiology and in the apparent absence of any potential anticholinergic medications is consistent with a postganglionic sympathetic sudomotor abnormality like that seen in autonomic/small fiber neuropathy. Skin Biopsy 09/07/2009 IMPRESSION: This biopsy is normal. It shows no evidence of a small fiber sensory neuropathy. vEEG EMU admission 09/29/2014 Impression and Plan This EMU evaluation from 09/24/2014 to 09/29/2014 shows no evidence of epilepsy. Two episodes were recorded; one of brain fog and the other of right hand tremor with no EEG changes. One sharp wave was seen from the left frontotemporal region. Intermittent generalized and left greater than right temporal slowing was observed thought to be due in part to medication effect given the patient is taking Ultram and Xanax multiple times daily. General Examination: BP 103/65 Pulse 71 Resp 20 Ht 154.9 cm (5' 1 ) Wt 63.4 kg (139 lb 12.4 oz) LMP 02/16/2022 (Approximate) SpO2 100% BMI 26.41 kg/m 03/10/22 1052 BP: 103/65 Pulse: 71 Resp: 20 SpO2: 100% Weight: 63.4 kg (139 lb 12.4 oz) Height: 154.9 cm (5' 1 ) Neurological Examination: Cognition The patient is alert and oriented times four. Lucid and organized in conversation. Able to provide detailed medical hx. Speech Speech is Normal in fluency, volume, and clarity. No dysarthria. Content and syntax are coherent. Comprehension: Able to follow several step commands. Cranial Nerves PERRLA No ptosis. Visual sylvester are full to confrontation. Extraocular movements are intact. Smooth saccades and pursuits. No nystagmus. Facial motor exam is strong and symmetric. Equal sensation of trigeminal nerve - V1,V2, and V3. Soft palate elevation is symmetric, tongue is in midline, no tongue fasciculation. Neck range of motion is full. Trapezius Strength is symmetric, graded 5/5. Tone and Bulk Tone and bulk is normal and preserved bilaterally of arms. Tone and bulk is normal and preserved bilaterally of legs. No apparent muscle atrophy. No pes cavus or hammer toes. Strength Right Left Shoulder Abduction 5/5 5/5 Elbow Flexion 5/5 5/5 Elbow Extension 5/5 5/5 Wrist Flexion 5/5 5/5 Wrist Extension 5/5 5/5 Finger Extension 5/5 5/5 Finger Flexion 5/5 5/5 Finger Abduction 5/5 5/5 Hip Flexion 4/5 4/5 Hip Adduction 4+/5 4+/5 Hip Abduction 5/5 5/5 Knee Flexion 4+/5 4+/5 Knee Extension 4+/5 4+/5 Ankle Dorsiflexion 5/5 5/5 Ankle Plantarflexion 5/5 5/5 Movement/Coordination Finger-to- nose-finger and rcox-em-nymg intact bilaterally. No evidence of ataxia arms. No limb dysmetria of arms and legs. Rapid alternating movements of pronation and supination, finger and hand tapping intact. There is no asterixis of the hands. No rigidity, cog wheeling, or bradykinesia. Bilateral action tremor No extrapyramidal findings or dystonia. Sensation Intact to light touch, pinprick, and temperature sensation at toes and fingers, bilaterally. Normal finger vibration and toe vibration. Reflexes Right Left Bicep 2+/4 2+/4 Tricep 2+/4 2+/4 Brachioradialis 2+/4 2+/4 Patella 2+/4 2+/4 Ankle 2+/4 2+/4 No Clonus. Negative Babinski (toes curl down). Beckford L > R Gait Able to stand without upper body assistance. Normal station and stride. No festination or retropulsion. Good arm swing and body turn. Normal toe, heel, and tandem walk. Romberg's sign is negative. Assessment & Plan 03/10/2022 - General Neurology, Saroj Foss, 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 ASSESSMENT Ben Barr is a 35 year old here today for follow up. Relevant history anxiety, CVID, depression, hypogammaglobulinemia, hypothyroidism, intussusception, LBP, pituitary microadenoma, PMS, PTSD, seizure disorder, tobacco use, GI bleed. She had recent hospitalization in January for multiple issues: -Pancytopenia with moderate leukopenia, moderate thrombocytopenia, mild normochromic/normocytic anemia -Abdominal pain -Intussusception, with upcoming GI evaluation -RUQ US Hepatic steatosis -Elevated liver enzymes, CKD2 We address additional issues today: 1) Headache -Still with band like holocephalic -Light sensitivity, no sound, not worse with activity -Consistent with tension headache -Constant pressure sensation -Has tried gabapentin -Lyrica and TCA likely too sedating, cannot use Cymbalta due to hepatic -Will try topamax, next step referral to headache for management 2) Proximal weakness -Worsened proximal weakness in the last 6 months -Feels upper arms feel weak, has trouble cutting vegetables, no subjective hand weakness -Trouble walking down stairs, feet and lower legs feel strong to her -No proximal arm weakness on exam -She does have new proximal weakness on exam -Muscle break down labs previously WNL but will recheck -ACHR receptor Ab negative previously -EMG myopathy protocol 3) Rash -She has intermittent rash, that comes ~daily lasting a few hours -Dermatomyositis rash should not have this pattern -Not related to exertion -Across the chest -Patch appears flat, with irregular border, pink in color -States not itchy or painful PLAN 1) Need to schedule the following: -Autonomic reflex with tilt -QSART 2) Topamax 25 mg at bedtime -Potential side effects: numbness and tingling, kidney stones (calcium phosphate) word finding difficulties and other cognitive side effects, loss off appetite, change in taste with sodas or reversible glaucoma. If you develop numbness and tinglng , buy Potassium 99 mg over the counter and use 1 or 2 /day. 3) Labs: -Today -CMP in 1 month Return 3-6 months. My impression and recommendations were discussed at length with the patient (and family members, if present). The patient and family (if present) voiced understanding to my recommendations. All questions were answered. Medication side effects discussed as applicable. The patient was provided with a detailed after visit summary highlighting my impression and recommendations. I spent a total of 45 minutes on the date of the service which included preparing to see the patient, [id number] patient care, completing clinical documentation, obtaining and/or reviewing separately obtained history, performing a medically appropriate examination, counseling and educating the patient/family/caregiver, and ordering medications, tests, or procedures. Saroj Foss APRN.[facility] General Neurology [address] [place]. [address] Appointment: [phone] During our face to face clinical encounter we discussed my concerns neurologically in terms of diagnosis, impact on health and activities of living, and addressed questions. I tried to reassure the patient and also address questions. I explained to the patient to call if any questions, to review results, and I want to see them return for neurological follow up as mychart as next steps of communication is agreed upon Patient verbalizes understanding and I have addressed concerns and questions at this visit Patient has my contacts, educational material provided, and my chart sign up. After visit summary discussed. 1. This office note has been dictated and may contain minor typographic errors that escaped review. 2. The nursing staff and medical assistants are a major part of YOUR TREATMENT TEAM and will be handling your phone calls and inquiries, if any. Unless explicitly told otherwise at the time of your office visit, your study results and ensuing treatment plans will be discussed during your follow-up appointment. If you do not have a follow-up appointment and wish to discuss any issues directly with me, please feel free to obtain one. 3. It is my practice to not fill disability or any other insurance-related forms/documention. All of the office notes, study results, and other pertinent documentation generated as part of your evaluation will be available to you and to your Primary Care Physician (PCP). Use of this material to complete such forms will be at the discretion of your PCP/referring physician documented in this encounter [facility] 03-08-2022 History of Present illness Narrative Follow-up CVI D, on IV IgG. She has not seen [id number] Dr. Kiser recently. She was in the hospital with elevated AST and ALT which all resolved. She had gastroparesis which is resolved. She is still bothered by some weakness in her legs especially and she notices when she walks down steps. Her CBC is completely normal as of February 17. Her EBV serologies were quite positive. There was no quantification of active EBV infection at the time. She is with her mother today On exam no jaundice no adenopathy heart lung sound normal liver spleen not palpable no abdominal mass or pain neurologic exam seems normal nonfocal Assessment looks very healthy today. Her HFE pattern showed heterozygous H63D and her iron percent saturation transferrin saturation percentage are all normal but her ferritin just slightly above normal. I would not advocate to start a phlebotomy program at the present time but would follow the ferritin in the future I will confer with Dr. Kiser about making sure he actually sees her [id number] and not a video visit next time. I will send her downstairs today to get EBV quantification by PCR CPK CMP and CBC differential platelet Dr. Reece Sarmiento documented in this encounter [facility] 03-08-2022 Nurse Note Clinical questionnaires incomplete due to Patient declined to complete or answer questions with nurse Additional intake questions: Has the patient had fever, nausea, vomiting, diarrhea, constipation, fatigue for > 1 week? Yes, nausea, constipation (day of last BM 03/07/2022), diarrhea ( 10 times in last 24 hours), and fatigue Does the patient have a decreased appetite? No Does patient want to see a Waste Duster? No (yes to any of above refer patient to schedulers for dietitian appointment) ) Does patient have any new or increased numbness or tingling of extremities? No Is patient interested in fertility information? No Does patient need any prescription refills? No Does patient have an advanced directive in place? Yes, copies are in [employer] documented in this encounter [facility] 03-08-2022 Miscellaneous Notes Images from the original note were not included. Received a fax from [employer] Auth[employer]ization Department with a notice: Uploaded into [employer]. documented in this encounter [facility] 03-07-2022 History of Present illness Narrative [facility] - FOLLOW UP EVALUATION Lizy Soria DO [address] [facility] [address] Dear Lizy Soria DO: I had the pleasure of seeing Ms. Barr for follow-up today. As you know she is a 36 year old right-handed female with a history of Tremulousness since 2020. She is seen alone. We had a visit using: [employer] I received consent from the patient to perform the visit using this platform. Subjective HISTORY OF PRESENT ILLNESS: During her previous visit the following plan was made: Previous plan-11/29/2021 Visit: Agree with Sleep Medicine referral. Would consider Sleep Psychology depending on the diagnosis Can consider a referral to Headache Neurology Continue propranolol. Further improvement in tremor is likely going to come at the cause of significant side effects Follow up with me in mid February, . Please reach out to me prior to the appointment with an update so we can decide about possibly switching it to in person Interested in clinical research? Not currently Questionnaires: In addition, the following areas that may be affected by dystonia and other involuntary movements were evaluated: Speech: Affected (slightly) Eating and Swallowing: Affected (marked difficulty) Handwriting: Affected (slightly) Feeding: Affected (still independent) Hygiene: Not affected Dressing: Not affected Walking: Affected (slight) Number of falls in the Last Month: 0 Mood/Behavior Depression: PHQ-9 Score: 16 usually representing moderately severe (15-19) depression. Anxiety: [id number] Total Score: 17 usually representing severe (>15) anxiety. Finally, the following table shows the patient's overall global physical and mental health using the PROMIS scale: PROMIS-10 Flowsheet Row Distance Health from 01/17/2022 in Allergy Office Visit from 11/23/2021 in Neurology Global Physical Health T Score 32.4 32.4 Global Mental Health T Score 21.2 31.3 0-10 Standard Pain Scale 4 4 *PROMIS-10 scoring scale: mean = 50, over 50 is above average, under 50 is below average ALLERGIES Allergen Reactions Antidepressants [Se* Other: See Comments It knocks me out. Rondec [Bromphenira* crying for 12 solid hours-per mom Current Outpatient Medications Medication Sig immune globulin, human,, IgG, (GAMMAGARD LIQUID) 10 % soln Inject 550 mL intravenously every 3 weeks. propranolol ER (INDERAL LA) 60 mg 24 hr capsule TAKE ONE CAPSULE BY MOUTH ONCE DAILY fluticasone (FLONASE) 50 mcg/actuation nasal spray Use in the nose. omeprazole (PRILOSEC) 40 mg capsule Take 40 mg by mouth once daily. fluconazole (DIFLUCAN) 100 mg tablet Take 1 tablet by mouth once daily. busPIRone (BUSPAR) 10 mg tablet Take 30 mg by mouth. 0.9 % sodium chloride (NACL 0.9%) infusion Inject 200 mL/hr intravenously continuous. 1L during IVIG infusions OXcarbazepine (TRILEPTAL) 150 mg tablet Take 1 tablet by mouth twice daily. diphenhydrAMINE (BENADRYL) 25 mg capsule Take 1 capsule by mouth as directed. Use as directed. Current Facility-Administered Medications Medication Dose Route Frequency acetylcholine 10% solution - cchs compounding 20 mL IRRIGATION ONE TIME Objective Physical Examination: General: Awake, alert, interactive, no acute distress, good nutritional status, normal development, well-kept Neurological Examination: Awake, alert, oriented. Able to connect to virtual platform and provide an accurate history Cranial nerves grossly intact Able to move extremities spontaneously without any apparent weakness Mild bilateral postural and action tremor Exam limited by virtual platform Assessment Ms. Barr is a right-handed 36 year old female with symptoms consistent with essential tremor with recent worsening and emergent of atypical symptoms. At this point patient's medical and autonomic concerns are far more pressing than her tremor. Propranolol which is being used for other purposes has fortunately provided adequate control for the time being. If indicated, increasing the dose would assist in controlling tremor, but we both agreed that such a chance should only be made if indicated for a more important concern. Would like to examine in person in a few months to assess for any major changes, but my role in her care is likely to be quite limited for the foreseeable future. The following are the current problems noted and addressed during this visit: Tremulousness (primary encounter diagnosis) Plan 03/07/2022 Visit: Follow up virtually in 3 months and in person in 6. Virtual appointment can be delayed if there is no change Interested in clinical research? Not currently Level of service : 05807 (10-19 min). Time spent 15 min on the day of service, which included preparing to see the patient, [id number] patient care, completing clinical documentation, obtaining and/or reviewing separately obtained history, performing a medically appropriate examination, and counseling and educating the patient/family/caregiver. Thank you for allowing me to be part of the clinical care of this patient! I look forward to continued participation in the patient s care with you. Please do not hesitate to call with any questions. Sincerely, Chito Noyola MD Associate Staff [facility] documented in this encounter [facility] 02-21-2022 Miscellaneous Notes Dose change to a higher amount. Fax the prescription to [facility] along with the most recent clinical notes. Fax: Fax OK on 02/21/22 at 1:58 pm ---- Uploaded prescription into scan docs. documented in this encounter [facility] 02-15-2022 Miscellaneous Notes Last Refill: 11/23/2021 Last OV: 11/23/2021 F/U OV: 03/01/2022 Appropriate for refill. Routed to for review. Sammi Lawson RN documented in this encounter [facility] 02-10-2022 Instructions Mercedes Swenson DO - 02/10/2022 2:10 PM EST Insomnia What is insomnia? Insomnia is a sleep disorder in which people have one or more of the following symptoms: Difficulty falling asleep Waking up often during the night and having trouble going back to sleep Waking up too early in the morning Having sleep that is not refreshing Who gets insomnia? Approximately 50% of adults experience occasional bouts of insomnia, and 1 in 10 complain of chronic insomnia. Insomnia is approximately twice as common in women as in men, and is more common in older than younger people. Kinds of insomnia There are two kinds of insomnia: Primary insomnia means that a person is having sleep problems that are not directly associated with any other health condition or problem. Secondary (co-morbid) insomnia means that a person is having sleep problems because of something else, such as a health condition (for example, asthma, depression, arthritis, cancer, or heartburn); pain, medicine they are taking; or a substance they are using (such as alcohol). Insomnia also varies in how long it lasts and how often it occurs. Insomnia can be short-term (acute insomnia) or can last a long time (chronic insomnia). It can also come and go, with periods of time when a person has no sleep problems. Acute insomnia can last from one night to a few weeks. Insomnia is called chronic when a person has insomnia at least three nights a week for a month or longer. One of the most common forms of insomnia is called psychophysiological ( mind-body ) insomnia. This is a disorder of learned, sleep-preventing associations, such as not being able to sleep because either your body or your mind is not relaxed. People with this insomnia usually have excessive, daily worries about not being able to fall or stay asleep when desired and worry that their efforts to fall asleep will be unsuccessful. Stress is the most common cause of psychophysiological insomnia. In addition to stress, what are other causes of insomnia? Causes of acute insomnia can include: Other significant types of life stressors (job loss or change, of a loved one, moving) Illness Medications Emotional or physical discomfort Environmental factors such as noise, light, or extreme temperatures (hot or cold) that interfere with sleep Things that interfere with a normal sleep schedule (jet lag or switching from a day to maintenance supervisor 2nd shift, for example) Causes of chronic insomnia include: Depression Chronic stress Pain or discomfort at night What are the symptoms of insomnia? Symptoms of insomnia include sleepiness during the day, general tiredness, irritability, and problems with concentration or memory. How is insomnia diagnosed? Insomnia is diagnosed through a medical and sleep history. Keeping a sleep diary for a week or two that tracks sleep patterns and daytime symptoms is useful. How is insomnia treated? Mild insomnia often can be prevented or cured by practicing good sleep habits (see below). Treatment for chronic insomnia includes first treating any underlying conditions or health problems that are causing the insomnia. If symptoms continue, cognitive behavioral therapy for insomnia (CBT-I) is recommended. This treatment address behaviors that may worsen insomnia and promotes healthy new behaviors to improve sleep. CBT-I can be performed on-line or in group or individual sessions with a trained provider. Sleeping pills may be used for a limited time in certain situations. Some medicines may be less effective after several weeks of nightly use. [id number] sleeping pills for insomnia should be avoided. What habits promote a good night's sleep? Good sleep habits, also called sleep hygiene, can help you get a good night's sleep. For example: Think positive. Avoid going to bed with a negative mindset, such as If I don't sleep for 8 hours, I will feel terrible tomorrow. Try to go to sleep at the same time each night and get up at the same time each morning. Try not to take naps during the day because naps may make you less sleepy at night. Avoid caffeine, nicotine, and alcohol late in the day. Caffeine and nicotine are stimulants and can keep you from falling asleep. Alcohol can cause waking in the night and interferes with sleep quality. Get regular exercise. Try not to exercise close to bedtime because it may stimulate you and make it hard to fall asleep. Experts suggest not exercising for 4 hours before the time you go to sleep. Don't eat a heavy meal late in the day. A light snack before bedtime, however, may help you sleep. Make your sleeping place comfortable. Be sure that it is dark, quiet, and not too warm or too cold. If light is a problem, try a sleeping mask. If noise is a problem, try earplugs or a fan. Relax before going to bed by reading a book, listening to music, taking a bath, or enjoying another activity you find relaxing. Avoid using your bed for anything other than sleep or sex. If you can't fall asleep and don't feel drowsy, get up and read or do something that is not overly stimulating until you feel sleepy. If you have trouble lying awake worrying about things, try making a to-do list before you go to bed. This may help you to not focus on those worries overnight. Stop clockwatching. Turn the clock around and only use the alarm. documented in this encounter [facility] 02-10-2022 History of Present illness Narrative Images from the original note were not included. [facility] New Patient Evaluation PATIENT NAME: Ben Barr DATE OF SERVICE: February 10, 2022 CONSULTING PROVIDER: Saroj Foss [address] [place] [address] Visit performed virtually with patient's permission. REASON FOR CONSULT: Saroj Foss sends the patient for an opinion about fatigue and sleep-walking. My findings and recommendations will be transmitted electronically via shared medical record to the consulting provider. HPI: Ben Barr is a 36 year old female with CVID, hypothyroidism, POTS, intestinal intussusception, anxiety, depression. Sleep-related history: Insomnia at baseline but now with recent health issues experiencing long sleep periods (up to 16 hours a day over the past ~2 months) Has had insomnia since childhood - up for days at a time. Due to trauma as a child. She has seen psychologists and counselors. When she wakes at night she immediately has anxiety that she won't fall back asleep. Sleepwalking since childhood. Does not recall events. Has woken up if walks into a wall but otherwise stays asleep through events. At least 2 times a week. Excessive movement and sleep talking in bed when not sleepwalking. Leaves bedroom. Has done laundry. No clear history of driving (possibly once years ago but history unclear as it as per her kids). Has made toast and often eats sweets in her sleep. Usually eats sweets and has never eaten anything inedible or dangerous. Worse when stressed out or busy. Bedroom on ground floor, but basement has laundry and step-son's room. Due to her health issues, her legs feel wobbly going down stairs so this is a concern for her. No clear LORRI. Does not recall dreams unless nightmares which are rare (every couple months). No purposeful movements in bed. REM suppressants: Has weaned off Prozac recently. Buspirone - for anxiety Propranolol - for POTS Has a bed partner. She is recently sleeping on the couch due to his snoring. SLEEP-WAKE SCHEDULE She is a self-described night person. Bedtime: 9 PM. She has a hard time falling asleep. Time to fall asleep: hours - falls asleep around 12-1am . Panics at lights out . Turns on TV but something boring she's seen before - helps keep mind quiet. Wake time: 9:30-10 AM, without an alarm. For a while was 3pm. After falling asleep: she wakes up 3-4 time(s) per night, and does not know the reason for waking up. Average total sleep time (in a 24 hour period): 6 hours. SLEEP-RELATED DETAILS Preferred sleep position: side Breathing disturbances and other behaviors during sleep: moving around a lot. Bruxism: Yes GERD or aspiration: No Anxiety or rumination: Yes She does not report having an urge to move the legs in the evening (when resting) that is accompanied or caused by uncomfortable and/or unpleasant sensations in the legs. She has been told that she has leg kicking during sleep. The patient reports having had the following: Eating without awareness, somnambulism, sleep talking as detailed above Daytime sleepiness is not a problem. She does not report sleep paralysis or sleep-related hallucinations or cataplexy. Once her legs and arms went numb and she fell but an emotional trigger was not present. WAKE-RELATED DETAILS She does not work. She does have difficulty with memory or concentration. She denies falling asleep or dozing off when driving. She does not take naps. Anxiety keeps her awake. She does not drink caffeinated beverages. She has lost 6-7 pounds since recent health problems. Patient Questionnaires Sleep Scores Sleep Questions 02/09/2022 Reason for visit: Difficulty falling or staying asleep or poor sleep quality, Excessive daytime sleepiness, Restless Legs Syndrome, Abnormal behaviors/movements during sleep Average hours slept in 24 hours: - Accidents or near accidents due to drowsy drivin [place] Sleepiness Scale 02/09/2022 Score 4 (No daytime sleepiness) PROMIS CAT Sleep Disturbance 09/14/2021 02/09/2022 PROMIS Sleep Disturbance T-Score 79 (severe) 78 (severe) Insomnia Severity Index 02/09/2022 Score 25 Restless Leg Syndrome 02/09/2022 Score Incomplete PHQ-9 11/21/2021 11/27/2021 02/09/2022 Score 19 21 22 PROMIS Global Health - (T-Scores - the mean of general population = 50. Five points is a clinically meaningful difference.) 08/01/2021 11/21/2021 01/16/2022 Physical T-Score 39.8 32.4 32.4 Mental T-Score 25.1 31.3 21.2 PAST TREATMENTS: None PRIOR SLEEP STUDIES: None OTHER RELEVANT LABS AND STUDIES: 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) Hypogammaglobulinaemia, unspecified Hypothyroid Intussusception (HCC) as child Low back pain PMS (premenstrual syndrome) POTS (postural orthostatic tachycardia syndrome) POTS (postural orthostatic tachycardia syndrome) Thrombocytopenia (HCC) Tobacco abuse Vitamin D deficiency PAST SURGICAL HISTORY Procedure Laterality Date COLONOSCOPY FLX DX W/COLLJ SPEC WHEN PFRMD 2011 Colonoscopy COLONOSCOPY FLX DX W/COLLJ SPEC WHEN PFRMD Colonoscopy ESOPHAGOGASTRODUODENOSCOPY TRANSORAL DIAGNOSTIC 09/2008 neg duodenal bx ESOPHAGOGASTRODUODENOSCOPY TRANSORAL DIAGNOSTIC 12/17/14 EGD PAST SURGICAL HISTORY OF 2006 partial bowel resection PAST SURGICAL HISTORY OF ingrown toenails removed ACTIVE PROBLEM LIST Other Vitamin B12 Deficiency Anemia Abdominal Pain, Generalized Pituitary Tumor Hypothyroidism Tobacco Abuse Low Back Pain Depression Anxiety Pms (Premenstrual Syndrome) Dysautonomia Hypogammaglobulinemia (Hcc) Recurrent Convulsions (Hcc) Recurrent Vomiting Abdominal Pain Summary Syncope and collapse Portal Vein Thrombosis Liver Infarct 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 Anticoagulation Management Encounter Malnutrition of Mild Degree (Hcc) Attention to Ileostomy (Hcc) Postoperative Pain Postoperative Ileus (Hcc) Common Variable Agammaglobulinemia (Hcc) Recurrent Infections Enteropathy Cytopenia Right Upper Quadrant Abdominal Pain Nausea & Vomiting Transaminitis Intussusception (Hcc) H/O: Pituitary Tumor Generalized Anxiety Disorder History of Colectomy Chronic Insomnia Stage 2 Chronic Kidney Disease Nicotine use disorder, F17.2 Pots (Postural Orthostatic Tachycardia Syndrome) Allergies As of Date: 02/10/2022 Allergen Noted Reaction ANTIDEPRESSANTS [SEROTONIN 5HT-3 *10/06/2010 Other: See Comments HUNTER [BROMPHENIRAMINE-PSEUDOEPH*07/30/2008 Fully Assessed 01/31/2022 CURRENT MEDICATIONS: Cholecalciferol, Vitamin D3, 125 mcg (5,000 unit) cap^TAKE ONE CAPSULE BY MOUTH ONCE DAILY WITH FOOD^Disp: ^Rfl: fluticasone (FLONASE) 50 mcg/actuation nasal spray^Use in the nose.^Disp: ^Rfl: omeprazole (PRILOSEC) 40 mg capsule^Take 40 mg by mouth once daily.^Disp: ^Rfl: MAG64 [address] tablet^TAKE ONE TABLET BY MOUTH DAILY WITH VITAMIN D3^Disp: ^Rfl: propranolol ER (INDERAL LA) 60 mg 24 hr capsule^Take 1 capsule by mouth once daily.^Disp: 30 capsule^Rfl: 2 fluconazole (DIFLUCAN) 100 mg tablet^Take 1 tablet by mouth once daily.^Disp: 30 tablet^Rfl: 5 busPIRone (BUSPAR) 10 mg tablet^Take 30 mg by mouth.^Disp: ^Rfl: immune globulin, human,, IgG, (GAMMAGARD LIQUID) 10 % soln^Inject 450 mL intravenously every 3 weeks.^Disp: 450 mL^Rfl: 11 0.9 % sodium chloride (NACL 0.9%) infusion^Inject 200 mL/hr intravenously continuous. 1L during IVIG infusions^Disp: 1000 mL^Rfl: 11 OXcarbazepine (TRILEPTAL) 150 mg tablet^Take 1 tablet by mouth twice daily.^Disp: ^Rfl: 0 diphenhydrAMINE (BENADRYL) 25 mg capsule^Take 1 capsule by mouth as directed. Use as directed.^Disp: ^Rfl: 0 Review of Systems Constitutional: Positive for fatigue and night sweats. Negative for chills and fever. HENT: Negative for congestion. Respiratory: Negative for cough and difficulty breathing. Cardiovascular: Positive for palpitations. Negative for chest pain. Gastrointestinal: Positive for constipation, diarrhea and nausea. Negative for abdominal pain and heartburn. Genitourinary: Negative for nocturia. Musculoskeletal: Positive for back pain. Negative for arthralgias. Neurological: Positive for dizziness and headaches. SOCIAL HISTORY: Social History Tobacco Use Smoking status: Former Packs/day: 0.50 Years: 6.00 Pack years: 3.00 Types: Cigarettes Quit date: 12/20/2013 Years since quittin.1 Smokeless tobacco: Never Substance Use Topics Alcohol use: No Drug use: No FAMILY HISTORY: FAMILY HISTORY Problem Relation Age of Onset Diabetes Mother other (Raynauds [Other]) Mother Hyperlipidemia Mother Hypertension Mother Alcohol abuse Father Gout Father other (POTS [Other]) Sister both sisters other (AVM [Other]) Sister Cancer Paternal Grandmother lung; smoker other (healthy [Other]) Daughter Diabetes Maternal Aunt type 1 Thyroid Maternal Aunt grave's Thyroid Maternal Aunt Neel's Thyroid Maternal Uncle hypothyroid There is no family history of sleep disorders. 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 Fatigue>>sleepiness. Despite feeling exhausted, she is not falling asleep unintentionally and has trouble falling asleep when given the opportunity to sleep. History of trauma with subsequent sleep anxiety. No role for hypersomnia workup at this time given lifelong insomnia. Discussed the 3 Ps. Plan: - [facility] for CBTI - Go To [facility] in the interim waiting for intake - In lab PSG to evaluate for NREM parasomnia triggers e.g. sleep apnea (perhaps positional), PLMS - Safety measures discussed - Recommended creating 2-3 step process to get to areas she wants to avoid (like the refrigerator) - child-proof locks on pantry and kitchen cabinets - keep stairs to basement clear - unsafe to barricade these given step-son's bedroom is downstairs - Lock windows and doors - Weapons locked away at night (and any guns unloaded and locked away) - Follow up 2 weeks after study for results. Mercedes Swenson DO I spent a total of 60 minutes on the date of the service which included preparing to see the patient, [id number] patient care, completing clinical documentation, obtaining and/or reviewing separately obtained history, performing a medically appropriate examination, counseling and educating the patient/family/caregiver, and ordering medications, tests, or procedures. documented in this encounter [facility] 02-01-2022 Miscellaneous Notes Nurse Pretty with [facility] called in to give us an update on the patient. Patient was hospitalized, but is wondering if it would be okay to resume with IVIG within the home? Maria De Jesus also stated that patient advise that Dr. Kiser had told patient she has a new rare Autoimmune diagnose? Maria De Jesus would like to speak with someone about this. Nurse Pretty can be reached at [phone] documented in this encounter [facility] 01-31-2022 Note HNO ID: [id number] Author: Royce Hauser APRN.HAND SPRAYER Service: ? Author Type: Nurse Mirror Finishing Machine Operator Type: Anesthesia Procedure Notes Filed: 01/31/2022 2:43 PM Note Text: ANESTHESIOLOGY PROCEDURE NOTE Airway General Information Procedure Start Time/Medication Administration: 01/31/2022 2:37 PM Patient location during procedure: OR Staffing HAND SPRAYER: Royce Hauser APRN.HAND SPRAYER Performed by: HAND SPRAYER Indications and Patient Condition Indications for airway management: anesthesia Preoxygenated: yes anesthesia circuit Patient position: sniffing Method: asleep Difficult Mask: No Final Airway Details Final airway type: endotracheal airway Final Endotracheal Airway: ETT Cuffed: yes Successful intubation technique: direct laryngoscopy Endotracheal tube insertion site: oral Blade: Varsha Blade size: #3 ETT size (mm): 7.0 Measured from: lips Measurement (cm): 20 Placement verified by: capnometry Cormack-Lehane Classification: grade I - full view of glottis Number of attempts at approach: 1 Airway not difficult SIGNATURE: Royce Hauser APRN.HAND SPRAYER PATIENT NAME: Ben Barr DATE: January 31, 2022 TIME: 2:42 PM CSN: [id number] [facility] 01-31-2022 Miscellaneous Notes Noted pt admitted to hospital. On schedule at [facility] for EGD tomorrow. Call to pt to confirm cancellation, LMTC. documented in this encounter [facility] 01-30-2022 Note HNO ID: [id number] Author: Radha Cooley MD Service: Hospital Medicine Author Type: Physician Type: Progress Notes Filed: 01/30/2022 2:58 PM Note Text: DEPARTMENT OF HOSPITAL MEDICINE PROGRESS NOTE SERVICE DATE: 01/30/2022 SERVICE TIME: 2:51 PM Hospital Medicine/Primary Attending: Radha Cooley MD NIGHT AND WEEKEND COVERAGE: [place] COVERAGE: Days: [phone], please contact via [employer] Nights: [phone] - 3rd floor: please page [facility] Hospitalist night cover [phone] - 4th floor: please page [facility] Hospitalist night cover [phone] - 5th floor: please page [facility] Hospitalist night cover [phone] Subjective INTERVAL HPI: Pt was seen and examined today. Tolerates GI soft No overnight events Still with middle and left upper quadrant pain and nausea Current Facility-Administered Medications Medication Dose Route Frequency OXcarbazepine 150 mg tab(s) (TRILEPTAL) 150 mg ORAL BID fluconazole 100 mg tab(s) (DIFLUCAN) 100 mg ORAL DAILY propranolol ER 60 mg cap(s) (INDERAL LA) 60 mg ORAL DAILY enoxaparin 40 mg injection (LOVENOX) 40 mg SUBCUTANEOUS q 24 HR NaCl 0.9% iv flush bag 20 mL INTRAVENOUS PRN sodium chloride 0.9 % (flush) 3-5 mL (BD POSIFLUSH) 3-5 mL INTRAVENOUS q 12 H metoclopramide HCl 5 mg injection (REGLAN) 5 mg INTRAVENOUS q 6 H PRN ondansetron (PF) 4 mg injection (ZOFRAN) 4 mg INTRAVENOUS q 6 H PRN busPIRone 30 mg tab(s) (BUSPAR) 30 mg ORAL BID iv contrast (radiology procedure) INTRAVENOUS DIRECTED PRN morphine 1 mg injection 1 mg INTRAVENOUS q 3 H PRN HYDROcodone 5 mg - acetaminophen 325 mg tablet (NORCO) 1-2 tablet ORAL q [address] 40 mg tab(s) (PROTONIX) 40 mg ORAL DAILY (6 AM) LORazepam 0.5 mg tab(s) (ATIVAN) 0.5 mg ORAL AT BEDTIME PRN [START ON 01/31/2022] FLUoxetine 20 mg cap(s) (PROzac) 20 mg ORAL DAILY Objective PHYSICAL EXAM: BP 143/96 Pulse 67 Temp (Src) 98.6 (Oral) Resp 16 Ht 5' 1 (1.55m) Wt 132 lb 7.9 oz (60.1kg) SpO2 98% LMP 01/14/2022 BMI 25.05 kg/(m2). O2 Therapy: Room Air Physical Exam Performed GENERAL: Alert, Mild Distress, Cooperative SKIN: Skin color, texture, turgor normal. No rashes or lesions. HEAD/SINUSES: No significant findings LUNGS: Lungs clear to auscultation, Good diaphragmatic excursion CARDIAC: Normal S1 and S2; no rubs, murmurs, or gallops ABDOMEN: Positive findings: tenderness: mild location: RUQ, LUQ, and generalized, soft, nondistended EXTREMITIES: Extremities normal, no deformities, edema, clubbing or skin discoloration. Good capillary refill., No ulcers NEURO: Grossly normal cognition, motor function, PULSES: 2+ radial, 2+ carotid Lines, Drains, and Airways Line Duration Peripheral 01/28/220 Assessment Left Forearm 22 Gauge 1 day Reviewed lines and needs to be continued: REASONS: Electrolyte replacement Reviewed airway and will discuss with nurse to discontinue. DATA: Diagnostic tests reviewed for today's visit: Most recent labs Most recent imaging Most recent EKG Assessment/Plan Problem List Right upper quadrant abdominal pain POA: Yes Abdominal pain, generalized POA: Yes Anxiety POA: Yes Malnutrition of mild degree (HCC) POA: Yes Common variable agammaglobulinemia (HCC) POA: Yes Nausea AND vomiting POA: Yes Transaminitis POA: Yes Intussusception (HCC) POA: Yes HOSPITAL COURSE: Ben Barr is a 36 year old female who presents with upper abdominal pain, nausea, vomiting for last 2-3 weeks. PMH significant for CVID, CKD, seizures, hypothyroidism, depression, total colectomy in 2016 with ileoanal anastomosis in 2017. #Generalized abdominal pain #RUQ pain #Intractable nausea and vomiting #Intussusception #Gastric Bezoar - worsening symptoms over past month - h/o total colectomy in 2016 with ileoanal anastomosis in 2017 - VSS, afebrile, saturating well on RA - Labs: CMP: Na 135, ALP 205, AST 334, ALT 182, T bili 0.8 CBC unremarkable, UA unremarkable - Imaging:- RUQ US: Hepatic steatosis. No cholelithiasis or biliary ductal dilatation. - CT abd/pelvis1. No acute findings are identified. 2. Nonobstructive short segment intussusception involving small bowel in the left abdomen which can be seen as a transient finding in adults. 3. Postsurgical changes. - EGD (01/02/22) OSH:1. Normal esophagus, Z line at 40 cm 2. Antral scar, mild gastric erythema and small semisolid gastric bezoar, random biopsies obtained to rule out H. pylori 3. Normal duodenum, random biopsy obtained to rule out celiac disease - Flexible sigmoidoscopy (01/02/22) OSH:1. 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 Normal colonic mucosa, residual solid stool noted 3. Small nonbleeding internal and external hemorrhoids Recommendations: Plan - ADAT, tolerated GI soft - continue omeprazole - Reglan and Zofran for nausea PRN - pain control with ibuprofen, toradol - Gen Surg consult for intussusception, d (more content not included)... [facility] 01-30-2022 Note HNO ID: [id number] Author: Clif Stallings RT(R) Service: ? Author Type: Technologist Type: Progress Notes Filed: 01/30/2022 8:16 AM Note Text: RADIOLOGY SERVICE PROGRESS NOTE SERVICE DATE: 01/30/2022 SERVICE TIME: 8:16 AM PATIENT IDENTITY VERIFICATION COMPLETED USING TWO (2) STANDARD IDENTIFIERS: Name and Date of confirmed by patient verbally FALL SCREENING: Has the patient had 2 falls in the last year or 1 fall with injury or currently using an Ambulatory Assistive Device (Walker, Cane, Wheelchair, Crutches, etc.)? Inpatient: Screened on floor PATIENT GENDER DATA: .female : No ALLERGIES: Reviewed and unchanged MEDICATIONS REVIEWED: No PATIENT RELEVANT IMPLANT DATA REVIEWED: Not Applicable CREATININE: Creatinine Date Value Ref Range Status 01/30/2022 0.71 0.58 - 0.96 mg/dL Final 01/29/2022 0.75 0.58 - 0.96 mg/dL Final 01/28/2022 0.73 0.58 - 0.96 mg/dL Final Estimated Glomerular Filtration Rate Date Value Ref Range Status 01/30/2022 113 >=60 mL/min/1.73m? Final Comment: Estimated Glomerular Filtration Rate (eGFR) is calculated using the 2020 CKD-EPI creatinine equation. This equation utilizes serum creatinine, sex, and age as parameters. The creatinine assay has traceable calibration to isotope dilution-mass spectrometry. Refer to KDIGO guidelines for clinical interpretation. In patients with unstable renal function, e.g. those with acute kidney injury, the eGFR may not accurately reflect actual GFR. eGFR- Date Value Ref Range Status 07/20/2016 >60 Final P.O.C.T. RESULTS: N/A January 30, [address] PERFORMED: No IV SITE: Inpatient - refer to LDA documentation POST EXAM PIV STATUS: Inpatient see LDA documentation PROCEDURE TYPE: NM GET: 1.0 mCi Tc99m SULFUR COLLOID was administered orally via 4 ounces of Egg Beaters,2 pieces of toast, 1 ounce of jelly with 8 ounces of water orally ADMINISTRATION TIME: 08:00 PATIENT DISCHARGED TO: Patient taken to IP transport area for return to RNF/ICU/ED. A Diagnostic radioactive procedure has taken place, with no further precautions necessary other than routine body substance precautions. More information regarding radiation safety can be found using this link: [email or web address] [email or web address] %20-%20Diagnostic%20Nuclear%20Medicine %20Procedures.pdf SIGNATURE: RT Donavon(R) PATIENT NAME: Ben Barr DATE: January 30, 2022 TIME: 8:16 AM PAGER/CONTACT #: [facility] 01-30-2022 History of Present illness Narrative RADIOLOGY SERVICE PROGRESS NOTE SERVICE DATE: 01/30/2022 SERVICE TIME: 8:16 AM PATIENT IDENTITY VERIFICATION COMPLETED USING TWO (2) STANDARD IDENTIFIERS: Name and Date of confirmed by patient verbally FALL SCREENING: Has the patient had 2 falls in the last year or 1 fall with injury or currently using an Ambulatory Assistive Device (Walker, Cane, Wheelchair, Crutches, etc.)? Inpatient: Screened on floor PATIENT GENDER DATA: .female : No ALLERGIES: Reviewed and unchanged MEDICATIONS REVIEWED: No PATIENT RELEVANT IMPLANT DATA REVIEWED: Not Applicable CREATININE: Creatinine Date Value Ref Range Status 01/30/2022 0.71 0.58 - 0.96 mg/dL Final 01/29/2022 0.75 0.58 - 0.96 mg/dL Final 01/28/2022 0.73 0.58 - 0.96 mg/dL Final Estimated Glomerular Filtration Rate Date Value Ref Range Status 01/30/2022 113 >=60 mL/min/1.73m Final Comment: Estimated Glomerular Filtration Rate (eGFR) is calculated using the 2020 CKD-EPI creatinine equation. This equation utilizes serum creatinine, sex, and age as parameters. The creatinine assay has traceable calibration to isotope dilution-mass spectrometry. Refer to KDIGO guidelines for clinical interpretation. In patients with unstable renal function, e.g. those with acute kidney injury, the eGFR may not accurately reflect actual GFR. eGFR- Date Value Ref Range Status 07/20/2016 >60 Final P.O.C.T. RESULTS: N/A January 30, [address] PERFORMED: No IV SITE: Inpatient - refer to LDA documentation POST EXAM PIV STATUS: Inpatient see LDA documentation PROCEDURE TYPE: NM GET: 1.0 mCi Tc99m SULFUR COLLOID was administered orally via 4 ounces of Egg Beaters,2 pieces of toast, 1 ounce of jelly with 8 ounces of water orally ADMINISTRATION TIME: 08:00 PATIENT DISCHARGED TO: Patient taken to IP transport area for return to RNF/ICU/ED. A Diagnostic radioactive procedure has taken place, with no further precautions necessary other than routine body substance precautions. More information regarding radiation safety can be found using this link: [email or web address] [email or web address]% 20-%20Diagnostic%20Nuclear%20Medicine% 20Procedures.pdf SIGNATURE: RT Donavon(Bessie) PATIENT NAME: Ben Barr DATE: January 30, 2022 TIME: 8:16 AM PAGER/CONTACT #: documented in this encounter [facility] 01-29-2022 Note HNO ID: [id number] Author: Radha Cooley MD Service: Hospital Medicine Author Type: Physician Type: Progress Notes Filed: 01/29/2022 2:53 PM Note Text: DEPARTMENT OF HOSPITAL MEDICINE PROGRESS NOTE SERVICE DATE: 01/29/2022 SERVICE TIME: 2:48 PM Hospital Medicine/Primary Attending: Radha Cooley MD NIGHT AND WEEKEND COVERAGE: [place] COVERAGE: Days: [phone], please contact via [employer] Nights: [phone] - floor: please page Hospitalist night cover [phone] - 4th floor: please page Hospitalist night cover [phone] - 5th floor: please page CC Hospitalist night cover [phone] Subjective INTERVAL HPI: Pt was seen and examined today. Tolerates GI soft with no issues Still with middle and left upper quadrant pain and nausea She has 2 small BM, states this is less than her normal given her Hx of colectomy Current Facility-Administered Medications Medication Dose Route Frequency OXcarbazepine 150 mg tab(s) (TRILEPTAL) 150 mg ORAL BID fluconazole 100 mg tab(s) (DIFLUCAN) 100 mg ORAL DAILY propranolol ER 60 mg cap(s) (INDERAL LA) 60 mg ORAL DAILY FLUoxetine 60 mg cap(s) (PROzac) 60 mg ORAL DAILY enoxaparin 40 mg injection (LOVENOX) 40 mg SUBCUTANEOUS q 24 HR NaCl 0.9% iv flush bag 20 mL INTRAVENOUS PRN sodium chloride 0.9 % (flush) 3-5 mL (BD POSIFLUSH) 3-5 mL INTRAVENOUS q 12 H metoclopramide HCl 5 mg injection (REGLAN) 5 mg INTRAVENOUS q 6 H PRN ondansetron (PF) 4 mg injection (ZOFRAN) 4 mg INTRAVENOUS q 6 H PRN busPIRone 30 mg tab(s) (BUSPAR) 30 mg ORAL BID iv contrast (radiology procedure) INTRAVENOUS DIRECTED PRN morphine 1 mg injection 1 mg INTRAVENOUS q 3 H PRN HYDROcodone 5 mg - acetaminophen 325 mg tablet (NORCO) 1-2 tablet ORAL q [address] 40 mg tab(s) (PROTONIX) 40 mg ORAL DAILY (6 AM) Objective PHYSICAL EXAM: BP 122/81 Pulse 80 Temp (Src) 97.5 (Axillary) Resp 17 Ht 5' 1 (1.55m) Wt 132 lb 7.9 oz (60.1kg) SpO2 97% LMP 01/14/2022 BMI 25.05 kg/(m2). O2 Therapy: Room Air Physical Exam Performed GENERAL: Alert, Mild Distress, Cooperative SKIN: Skin color, texture, turgor normal. No rashes or lesions. HEAD/SINUSES: No significant findings LUNGS: Lungs clear to auscultation, Good diaphragmatic excursion CARDIAC: Normal S1 and S2; no rubs, murmurs, or gallops ABDOMEN: Positive findings: tenderness: mild location: RUQ, LUQ, and generalized, soft, nondistended EXTREMITIES: Extremities normal, no deformities, edema, clubbing or skin discoloration. Good capillary refill., No ulcers NEURO: Grossly normal cognition, motor function, PULSES: 2+ radial, 2+ carotid Lines, Drains, and Airways Line Duration Peripheral 01/28/220 Assessment Left Forearm 22 Gauge <1 day Reviewed lines and needs to be continued: REASONS: Electrolyte replacement Reviewed airway and will discuss with nurse to discontinue. DATA: Diagnostic tests reviewed for today's visit: Most recent labs Most recent imaging Most recent EKG Assessment/Plan Problem List Right upper quadrant abdominal pain POA: Yes Abdominal pain, generalized POA: Yes Anxiety POA: Yes Malnutrition of mild degree (HCC) POA: Yes Common variable agammaglobulinemia (HCC) POA: Yes Nausea AND vomiting POA: Yes Transaminitis POA: Yes Intussusception (HCC) POA: Yes HOSPITAL COURSE: Ben Barr is a 36 year old female who presents with upper abdominal pain, nausea, vomiting for last 2-3 weeks. PMH significant for CVID, CKD, seizures, hypothyroidism, depression, total colectomy in 2016 with ileoanal anastomosis in 2017. #Generalized abdominal pain #RUQ pain #Intractable nausea and vomiting #Intussusception #Gastric Bezoar - worsening symptoms over past month - h/o total colectomy in 2016 with ileoanal anastomosis in 2017 - VSS, afebrile, saturating well on RA - Labs: CMP: Na 135, ALP 205, AST 334, ALT 182, T bili 0.8 CBC unremarkable, UA unremarkable - Imaging:- RUQ US: Hepatic steatosis. No cholelithiasis or biliary ductal dilatation. - CT abd/pelvis1. No acute findings are identified. 2. Nonobstructive short segment intussusception involving small bowel in the left abdomen which can be seen as a transient finding in adults. 3. Postsurgical changes. - EGD (01/02/22) OSH:1. Normal esophagus, Z line at 40 cm 2. Antral scar, mild gastric erythema and small semisolid gastric bezoar, random biopsies obtained to rule out H. pylori 3. Normal duodenum, random biopsy obtained to rule out celiac disease - Flexible sigmoidoscopy (01/02/22) OSH:1. 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 Normal colonic mucosa, residual solid stool noted 3. Small nonbleeding internal and external hemorrhoids Recommendations: Plan - ADAT, tolerated Clears - continue omeprazole - Reglan and Zofran for nausea PRN - pain control with ibuprofen, toradol - Gen Surg consult for intussusception, disc (more content not included)... [facility] 01-29-2022 Note HNO ID: [id number] Author: Evan Baum PA-C Service: Gastroenterology Author Type: Physician Account Processor Type: Plan of Care Filed: 01/29/2022 2:12 PM Note Text: GI CONSULT PLAN OF CARE NOTE SERVICE DATE: 01/29/2022 SERVICE TIME: 2:09 PM CONSULTING SERVICE: Gastroenterology CT Abd/Pelvis 01/28/22 IMPRESSION: Three areas of short segment small bowel intussusception in the left upper quadrant (two are new from 01/26/2022 and one is relatively similar in appearance to 01/26/2022), as described. No evidence for associated bowel obstruction (enteric contrast is noted to be in the small bowel distal to these areas of intussusception). PLAN Update - Surgery team evaluated patient; continuing diet without urgent need for exploration of intussusception; possible dx laparoscopy as outpatient - Awaiting gastric emptying study planned for Sunday GI will continue to follow SIGNATURE: Evan Baum PA-C PATIENT NAME: Ben Barr DATE: January 29, 2022 TIME: 2:[address] [facility] 01-29-2022 Note HNO ID: [id number] Author: Josh Hope DO Service: General Surgery Author Type: Physician Type: Progress Notes Filed: 01/29/2022 9:40 AM Note Text: SERVICE DATE: 01/29/2022 SERVICE TIME: 9:34 AM SERVICE: General Surgery SUBJECTIVES: Still has upper abdominal pain, improved. Overall feeling better, less nausea and no vomiting since admission. Has small yellow mucous BM. No bloating. Tolerated solid meal, finished about 40% of breakfast tray. No fever or chill. OBJECTIVES: BP 122/81 Pulse 80 Temp 36.4 ?C (97.5 ?F) (Axillary) Resp 17 Ht 154.9 cm (5' 1 ) Wt 60.1 kg (132 lb 7.9 oz) LMP 01/14/2022 SpO2 97% BMI 25.03 kg/m? , Body mass index is 25.03 kg/m?. GENERAL: Alert, No distress, Cooperative ABDOMEN: soft, mild upper abdominal pain L > R without rebound or guarding. No distension, no mass palpated. Assessment ASSESSMENT: Upper abdominal pain with intractable N/V - improving Able to keep diet down History of gastric bezoar Intussusception without obstruction or enteritis Repeat CT reviewed with patient PLAN: Continue diet as tolerated for the patient No urgent need for surgical exploration for intussusception GI eval for upper abd pain, N/V and bezoar. Discussed dx laparoscopy, possible laparotomy after GI evaluation for her intussusception if no other sources found. Can be done outpatient. Patient agrees with plans above and wishes to have GI evaluation first as well. SIGNATURE: Desirae Hope DO PATIENT NAME: Ben Barr DATE: January 29, 2022 TIME: 9:34 AM PAGER: [facility] 01-28-2022 Note HNO ID: [id number] Author: Radha Cooley MD Service: Hospital Medicine Author Type: Physician Type: Progress Notes Filed: 01/28/2022 1:55 PM Note Text: DEPARTMENT OF HOSPITAL MEDICINE PROGRESS NOTE SERVICE DATE: 01/28/2022 SERVICE TIME: 1:42 PM Hospital Medicine/Primary Attending: Radha Cooley MD NIGHT AND WEEKEND COVERAGE: [place] COVERAGE: Days: [phone], please contact via [email or web address] Nights: [phone] - floor: please page Hospitalist night cover [phone] - 4th floor: please page Hospitalist night cover [phone] - 5th floor: please page Hospitalist night cover [phone] Subjective INTERVAL HPI: Pt was seen and examined today. She tolerates clear liquid with nausea but no vomiting. She has BM earlier. Feels swollen. Denies any other symptoms. Current Facility-Administered Medications Medication Dose Route Frequency OXcarbazepine 150 mg tab(s) (TRILEPTAL) 150 mg ORAL BID fluconazole 100 mg tab(s) (DIFLUCAN) 100 mg ORAL DAILY propranolol ER 60 mg cap(s) (INDERAL LA) 60 mg ORAL DAILY FLUoxetine 60 mg cap(s) (PROzac) 60 mg ORAL DAILY enoxaparin 40 mg injection (LOVENOX) 40 mg SUBCUTANEOUS q 24 HR NaCl 0.9% iv flush bag 20 mL INTRAVENOUS PRN sodium chloride 0.9 % (flush) 3-5 mL (BD POSIFLUSH) 3-5 mL INTRAVENOUS q 12 H metoclopramide HCl 5 mg injection (REGLAN) 5 mg INTRAVENOUS q 6 H PRN ondansetron (PF) 4 mg injection (ZOFRAN) 4 mg INTRAVENOUS q 6 H PRN busPIRone 30 mg tab(s) (BUSPAR) 30 mg ORAL BID pantoprazole 40 mg injection (PROTONIX) 40 mg INTRAVENOUS DAILY (6 AM) iv contrast (radiology procedure) INTRAVENOUS DIRECTED PRN And enteric contrast (radiology procedure) ORAL DIRECTED PRN morphine 1 mg injection 1 mg INTRAVENOUS q 3 H PRN HYDROcodone 5 mg - acetaminophen 325 mg tablet (NORCO) 1-2 tablet ORAL q 4 H PRN Objective PHYSICAL EXAM: BP 120/87 Pulse 79 Temp (Src) 98.1 (Oral) Resp 18 Ht 5' 1 (1.55m) Wt 132 lb 7.9 oz (60.1kg) SpO2 98% LMP 01/14/2022 BMI 25.05 kg/(m2). O2 Therapy: Room Air Physical Exam Performed GENERAL: Alert, Mild Distress, Cooperative SKIN: Skin color, texture, turgor normal. No rashes or lesions. HEAD/SINUSES: No significant findings LUNGS: Lungs clear to auscultation, Good diaphragmatic excursion CARDIAC: Normal S1 and S2; no rubs, murmurs, or gallops ABDOMEN: Positive findings: tenderness: mild location: RUQ, LUQ, and generalized, soft, nondistended EXTREMITIES: Extremities normal, no deformities, edema, clubbing or skin discoloration. Good capillary refill., No ulcers NEURO: Grossly normal cognition, motor function, PULSES: 2+ radial, 2+ carotid Lines, Drains, and Airways Line Duration Peripheral 01/26/22 1428 Short Right Antecubital 20 Gauge 1 day Reviewed lines and needs to be continued: REASONS: Electrolyte replacement Reviewed airway and will discuss with nurse to discontinue. DATA: Diagnostic tests reviewed for today's visit: Most recent labs Most recent imaging Most recent EKG Assessment/Plan Problem List Right upper quadrant abdominal pain POA: Yes Abdominal pain, generalized POA: Yes Anxiety POA: Yes Common variable agammaglobulinemia (HCC) POA: Yes Nausea AND vomiting POA: Yes Transaminitis POA: Yes Intussusception (HCC) POA: Yes HOSPITAL COURSE: Ben Barr is a 36 year old female who presents with upper abdominal pain, nausea, vomiting for last 2-3 weeks. PMH significant for CVID, CKD, seizures, hypothyroidism, depression, total colectomy in 2016 with ileoanal anastomosis in 2017. #Generalized abdominal pain #RUQ pain #Intractable nausea and vomiting #Intussusception #Gastric Bezoar - worsening symptoms over past month - h/o total colectomy in 2016 with ileoanal anastomosis in 2017 - VSS, afebrile, saturating well on RA - Labs: CMP: Na 135, ALP 205, AST 334, ALT 182, T bili 0.8 CBC unremarkable, UA unremarkable - Imaging: - RUQ US: Hepatic steatosis. No cholelithiasis or biliary ductal dilatation. - CT abd/pelvis 1. No acute findings are identified. 2. Nonobstructive short segment intussusception involving small bowel in the left abdomen which can be seen as a transient finding in adults. 3. Postsurgical changes. - EGD (01/02/22) OSH: 1. Normal esophagus, Z line at 40 cm 2. Antral scar, mild gastric erythema and small semisolid gastric bezoar, random biopsies obtained to rule out H. pylori 3. Normal duodenum, random biopsy obtained to rule out celiac disease - Flexible sigmoidoscopy (01/02/22) OSH: 1. 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 Normal colonic mucosa, residual solid stool noted 3. Small nonbleeding internal and external hemorrhoids Recommendations: 1. Awaiting pathology report. 2. GI clinic follow-up in 2 weeks 3. Low residual diet, low-fat and low fiber 4. Diet [employer], 2 to 3 cans daily Plan - ADAT, tolerated Clears - continue (more content not included)... [facility] 01-28-2022 Note HNO ID: [id number] Author: Josh Hope DO Service: General Surgery Author Type: Physician Type: Progress Notes Filed: 01/28/2022 11:12 AM Note Text: SERVICE DATE: 01/28/2022 SERVICE TIME: 11:04 AM SERVICE: General Surgery SUBJECTIVES: Feeling better today. Still with pain across upper abdomen. Less nausea. [place] some clears. Small BM, mucous, no blood and not dark. No fever or chill overnight. OBJECTIVES: BP 120/87 Pulse 79 Temp 36.7 ?C (98.1 ?F) (Oral) Resp 18 Ht 154.9 cm (5' 1 ) Wt 60.1 kg (132 lb 7.9 oz) LMP 01/14/2022 SpO2 98% BMI 25.03 kg/m? , Body mass index is 25.03 kg/m?. GENERAL: Alert, No distress, Cooperative ABDOMEN: soft, non-distended, mild TTP bilateral upper abdomen, more LUQ > RUQ. No rebound or guarding and no peritonitis. Assessment ASSESSMENT: Upper abdominal pain with nausea and vomiting - improving Gastric bezoar Intussusception without obstruction or enteritis. PLAN: Diet as tolerated Repeat CT done, final result pending Discussed GI evaluation first to r/o gastric source of abdominal pain before surgical exploration for her intussusception as it is not causing obstruction or other complications Surgery for intussusception likely involves small bowel resection; she also has multiple abdominal surgeries in the past; possible dense adhesion and other complication discussed. Patient understands and agrees with plan above and wishes to have GI evaluation first as well to remove her bezoar and at the same time evaluate her upper abdominal pain and symptoms. Discussed with primary team. SIGNATURE: Desirae Hope DO PATIENT NAME: Ben Barr DATE: January 28, 2022 TIME: 11:04 AM PAGER: [facility] 01-28-2022 Note HNO ID: [id number] Author: RT Marie(R) Service: Radiology Author Type: Technologist Type: Progress Notes Filed: 01/28/2022 9:18 AM Note Text: Radiology Service Progress Note PATIENT NAME: Ben Barr DATE OF SERVICE: January 28, 2022 TIME: 9:17 AM PATIENT IDENTITY VERIFICATION COMPLETED USING TWO (2) IDENTIFIERS: Name and Date of confirmed by patient verbally and Name and Date of confirmed by identification band. FALL SCREENING: Has the patient had 2 falls in the last year or 1 fall with injury or currently using an Ambulatory Assistive Device (Walker, Cane, Wheelchair, Crutches, etc.)? Inpatient: Screened on floor PATIENT GENDER DATA: Female. status: : No status: NO. PATIENT RELEVANT IMPLANT DATA REVIEWED: Not Applicable RADIOLOGY DEPARTMENT: CT; Exam(s) Completed: Abdomen/Pelvis PERIPHERAL IV DATA: Site assessment: Clean,Dry and Intact, Site disposition Left in for next appointment SIGNED BY: RT Marie(R) January 28, 2022 9:[address] [facility] 01-26-2022 Note COVID 19 RESULT: SARS-CoV-2 (Agent of COVID-19) Not Detected by RT-PCR or equivalent method. This test has been authorized by FDA under an Emergency Use Authorization (EUA). INFLUENZA A PCR: Negative for Influenza A by RT-PCR INFLUENZA B PCR: Negative for Influenza B by RT-PCR RSV PCR: Negative for Respiratory Syncytial Virus (RSV) by PCR [facility] Comment on above: Performed By: #### [id number] #### [facility] CLIA [id number] [place], [place] [id number] [place] [address] 01-26-2022 Note HNO ID: [id number] Author: RT Marie(Bessie) Service: Radiology Author Type: Technologist Type: Progress Notes Filed: 01/26/2022 5:47 PM Note Text: Radiology Service Progress Note PATIENT NAME: Ben Barr DATE OF SERVICE: January 26, 2022 TIME: 5:47 PM PATIENT IDENTITY VERIFICATION COMPLETED USING TWO (2) IDENTIFIERS: Name and Date of confirmed by patient verbally and Name and Date of confirmed by identification band. FALL SCREENING: Has the patient had 2 falls in the last year or 1 fall with injury or currently using an Ambulatory Assistive Device (Walker, Cane, Wheelchair, Crutches, etc.)? Emergency Room Patient: Screened in ED PATIENT GENDER DATA: Female. status: : No status: NO. PATIENT RELEVANT IMPLANT DATA REVIEWED: Not Applicable RADIOLOGY DEPARTMENT: CT; Exam(s) Completed: Abdomen/Pelvis PERIPHERAL IV DATA: Site assessment: Clean,Dry and Intact, Site disposition Left in for next appointment SIGNED BY: RT Marie(R) January 26, 2022 5:[address] [facility] 01-26-2022 Note HNO ID: [id number] Author: Jena Mccullough RDMS Service: Abstract Author Type: Beating Machine Operator Type: Progress Notes Filed: 01/26/2022 3:56 PM Note Text: Radiology Service Progress Note PATIENT NAME: Ben Barr DATE OF SERVICE: January 26, 2022 TIME: 3:55 PM PATIENT IDENTITY VERIFICATION COMPLETED USING TWO (2) IDENTIFIERS: Name and Date of confirmed by patient verbally and Name and Date of confirmed by identification band. FALL SCREENING: Has the patient had 2 falls in the last year or 1 fall with injury or currently using an Ambulatory Assistive Device (Walker, Cane, Wheelchair, Crutches, etc.)? No PATIENT GENDER DATA: Female. status: Unknown status: N/A PATIENT RELEVANT IMPLANT DATA REVIEWED: Not Applicable RADIOLOGY DEPARTMENT: Ultrasound PERIPHERAL IV DATA: Not applicable SIGNED BY: Jena Mccullough RDMS January 26, 2022 3:[address] [facility] 01-26-2022 Miscellaneous Notes Called [place] [facility] to give report. Dr. Sarmiento sent her since her liver enzymes have increased AST, ALT, Alkaline Phosphatase over the last week or two. She is vomiting multiple times daily. She does have a bezoar in her upper GI tract that she's hopefully getting removed via EGD on 02/01 but may need an US or CT of liver while in ED. She has a hx of seizures, CVID, total colectomy but no longer has ileostomy Kathryn Gutierrez RN January 26, 2022 10:10 AM documented in this encounter [facility] 01-24-2022 Miscellaneous Notes Called pt and provided number for GI dept and EGD dept to set those up. Pt also asking if she needs to repeat iron numbers and CMP since her liver enzymes were elevated. She's very fatigued so will talk with Dr. 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 Sarmiento, he asked her to call Sunday to discuss a plan and how to proceed with GI. Patient is calling to speak to Dr. Sarmiento. Patient has been identified by name and birthdate. Patient can be reached at: [phone] (cell) Norma Jama January 23, 2022 documented in this encounter [facility] 01-19-2022 History of Present illness Narrative Consultation requested by Dr. Kiser for an opinion regarding leukopenia/thrombocytopenia. My final recommendations will be communicated back to the requesting physician by way of shared Medical record or letter to requesting physician via US mail. This 36-year-old woman was found to have common variable immunodeficiency 10 years ago. She was placed on intravenous immunoglobulin therapy and actually did quite well until February 2019 when there was a 5-month hiatus and she did not get her infusions. There was some sort of insurance issue which was resolved when she went to the [employer]. Since that time she had nausea weakness difficulty raising her legs vomiting cold sweats. She had a GI doctor look in the stomach and she was found to have a bezoar, and was advised to drink Coca-Cola. That was in [place]. She has this pressure sensation in her head and MRI of the brain and cervical spine did not reveal any abnormality at [facility]. She feels like her memory is not as good. She had abdominal surgery in 2005 at [facility] for what sounds like benign polyps that got obstructed however postoperatively she was given Demerol and she had seizures and has actually had about 1 grand mal seizure since that time per year. The reason for that surgery was a bowel resection. Then in February 2015 here her colon became atonic or , and she had a total colectomy by Dr. Lopez. She wore a bag for 4 months and then that was taken down. She was hospitalized with viral intolerance about 6 months ago for this weakness and vomiting issue. She is has one 14-year-old daughter that she gave to her and she also has a stepson. The daughter apparently has some new IgM issue and will be seeing Dr. Kiser. At 1 point her blood was found to be toxic with mercury lead and arsenic and she was on chelation therapy in [place] for a while. 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 She gets these episodes of sepsis starting in a kidney infection Review of systems reveals no specific heart or lung problems, never had tuberculosis, has recent elevation of AST and ALT, has episodes of bacteremia from a genitourinary source, the pressure and headaches as mentioned above, all other systems are reviewed and are negative On physical exam check she looks rather healthy, she has a huge tattoo on her lower back which predated everything that was matter with her health, she has a small tattoo on her right hand, she mentions that the pigment there has been coming off on its own, no jaundice no adenopathy pharynx and tongue are normal heart lung sound normal abdomen reveals no liver enlargement spleen tip might be just palpable below the left costal margin well-healed surgical scars from the colectomy surgery in the bowel resection surgery, neurologic exam is nonfocal but she is a little tremulous. Assessment cytopenias question cause Today we will check several labs including peripheral smear review CBC CMP LDH reticulocyte count B12 folate iron studies heavy metal screen, zinc and copper, NexGen ration sequence testing, and depending upon the above results further testing even a bone marrow test may be indicated. She may even need scans of chest abdomen pelvis. I would wonder about having one of our GI doctor see her about this about theant. Dr. Reece Sarmiento documented in this encounter [facility] 01-19-2022 Nurse Note Additional intake questions: Has the patient had fever, nausea, vomiting, diarrhea, constipation, fatigue for > 1 week? Yes, nausea, vomiting, fatigue Does the patient have a decreased appetite? Yes Does patient want to see a Waste Duster? Yes, MD Notified (yes to any of above refer patient to schedulers for dietitian appointment) ) Does patient have any new or increased numbness or tingling of extremities? Yes, BLLE, BL hands Does patient need any prescription refills? No Does patient have an advanced directive in place? Yes, copies are in [facility] documented in this encounter [facility] 01-17-2022 Miscellaneous Notes Left Message to call back to get scheduled with Dr. Sarmiento. Patient was referred by Dr. Alatorre to get patient in to be scheduled. Asked patient to call back and ask for Norma Admin. documented in this encounter [facility] 01-17-2022 History of Present illness Narrative VIRTUAL VISIT PROGRESS NOTE This is a virtual visit. It required patient-provider interaction for the medical decision making as documented below. I had the pleasure of seeing Ms. Barr in the Allergy & Immunology Clinic at the [facility] for follow up of CVID Last visit (D83.9) CVID (common variable immunodeficiency) (HCC) (primary encounter diagnosis) Comment: on 46g IVIG every 3 weeks. Doing well except sinus presssure. Abx don't help but steroids do. Plan: Will see ENT (B99.9) Recurrent infections Comment: as above (K63.9) Enteropathy Comment: better on q3 weeks IVIG Today they state she is still having nausea and vomiting. Saw GI and needs colonoscopy. Her wbc, platelets are low. LFTs elevated. She is set to see HEME. +Cataplexy and needed an ER visit. Current Outpatient Medications Medication Sig propranolol ER (INDERAL LA) 60 mg 24 hr capsule Take 1 capsule by mouth once daily. fluconazole (DIFLUCAN) 100 mg tablet Take 1 tablet by mouth once daily. busPIRone (BUSPAR) 10 mg tablet Take 30 mg by mouth. FLUoxetine (PROZAC) 20 mg capsule Take 60 mg by mouth. meloxicam (MOBIC) 15 mg tablet TAKE ONE TABLET BY MOUTH ONCE DAILY FOR 30 DAYS immune globulin, human,, IgG, (GAMMAGARD LIQUID) 10 % soln Inject 450 mL intravenously every 3 weeks. 0.9 % sodium chloride (NACL 0.9%) infusion Inject 200 mL/hr intravenously continuous. 1L during IVIG infusions OXcarbazepine (TRILEPTAL) 150 mg tablet Take 1 tablet by mouth twice daily. diphenhydrAMINE (BENADRYL) 25 mg capsule Take 1 capsule by mouth as directed. Use as directed. Current Facility-Administered Medications Medication Dose Route Frequency acetylcholine 10% solution - cchs compounding 20 mL IRRIGATION ONE TIME Allergies As of Date: 01/17/2022 Allergen Noted Reaction ANTIDEPRESSANTS [SEROTONIN 5HT-3 *10/06/2010 Other: See Comments HUNTER [BROMPHENIRAMINE-PSEUDOEPH*07/30/2008 Fully Assessed 11/29/2021 Past Medical History: ACTIVE PROBLEM LIST Other Vitamin B12 Deficiency Anemia Abdominal Pain, Generalized Pituitary Disorder NEC Hypothyroidism Tobacco Abuse Low Back Pain Depression Anxiety Pms (Premenstrual Syndrome) Dysautonomia Hypogammaglobulinemia (Hcc) Recurrent Convulsions (Hcc) Recurrent Vomiting Abdominal Pain Summary Syncope and collapse Portal Vein Thrombosis Liver Infarct 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 Anticoagulation Management Encounter Mild Protein-Calorie Malnutrition (Hcc) Attention to Ileostomy ([facility]) Postoperative Pain Postoperative Ileus ([facility]) REVIEW OF SYSTEMS GENERAL: Fatigue HEENT: Negative for frequent or significant headaches, No changes in hearing or vision, no nose bleeds or other nasal problems NECK: Negative for lumps, goiter, pain and significant neck swelling RESPIRATORY: Negative for cough, hemoptysis, wheezing, COPD, dyspnea or shortness of breath CARDIOVASCULAR: Negative for chest pain, leg swelling, hypertension, CHF or palpitations GI: See HPI MUSCULOSKELETAL: joint pain or swelling SKIN: Negative for lesions, rash, and itching HEMATOLOGY/LYMPHOLOGY: See HPI ENDOCRINE: Negative for cold or heat intolerance, polyuria, polydipsia and goiter NEURO: Migraine headaches and Tension headaches PHYSICAL EXAMINATION: VIDEO EXAM: (if completed, performed via video enabled technology) GENERAL: alert and appropriate, in no distress, well-hydrated, well nourished, and happy, smiling, interactive SKIN: no rash noted HEAD: normocephalic, no abnormality or lesion noted EYES: no injection and visual acuity is grossly normal EARS: hearing grossly normal NOSE: external nose normal without rhinorrhea OROPHARYNX: moist mucus membranes NECK: full ROM, no cervical LNs noted RESPIRATORY: breathing non-labored CHEST: equal chest rise with normal respiratory effort ABDOMEN: soft and non-tender NEUROLOGIC: no obvious deficit LABS: Labs and films from outside facility reviewed today. A/P: (D83.9) CVID (common variable immunodeficiency) ([facility]) (primary encounter diagnosis) Comment: No SBIs. 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 Probably CVID related. Will have her see Dr. Sarmiento. May need BM biopsy? F/U:1 month documented in this encounter [facility] 01-04-2022 Note [id number]. [id number]:[id number] [facility] 01-03-2022 Miscellaneous Notes Images from the original note were not included. Received a fax [facility] requesting most recent clinical notes. Fax over the clinical notes within the year to the number provided. Fax OK on 01/03/22 at 1:02 pm documented in this encounter [facility] 01-02-2022 Evaluation + Plan note Extrac eitan from: Title:AQUILINO POSTOP Author:García Reyes DO Date: 01/02/22 Plan Transfer/ Discharge: Patient can be discharged from PACU when criteria met. Condition good. Extracted from: Title:AQUILINO PREOP ENDO NOTE Author:Branden Reyes DO Date:01/02/22 Plan [place] Society of Anesthesiologists (ASA) physical status classification: Class II. Anesthetic Preoperative Plan Anesthesia: Monitored anesthesia care and general anesthesia possible, extra care in scrubbing the hub, maintaining clean techniques with immunodeficiency. Anesthetic plan, risks, benefits, and alternatives discussed with the patient and/or family. Pt. and/or family present and agree to proceed as planned.. Risks discussed including heart, lung, nerve damage. Risks of bleeding, dental injury, hospitalization, and general injury discussed. . [facility]11-14-2022 Hospital Discharge instructions Patient Education 01/02/2022 09:05:53 Hemorrhoids, Rvrm-bf-Imsz Hemorrhoids Hemorrhoids are swollen veins that may develop: In the butt (rectum). These are called internal hemorrhoids. Around the opening of the butt (anus). These are called external hemorrhoids. Hemorrhoids can cause pain, itching, or bleeding. Most of the time, they do not cause serious problems. They usually get better with diet changes, lifestyle changes, and other home treatments. What are the causes? This condition may be caused by: Having trouble pooping (constipation). Pushing hard (straining) to poop. Watery poop (diarrhea). . Being very overweight (obese). Sitting for long periods of time. Heavy lifting or other activity that causes you to strain. Anal sex. Riding a bike for a long period of time. What are the signs or symptoms? Symptoms of this condition include: Pain. Itching or soreness in the butt. Bleeding from the butt. Leaking poop. Swelling in the area. One or more lumps around the opening of your butt. How is this diagnosed? A doctor can often diagnose this condition by looking at the affected area. The doctor may also: Do an exam that involves feeling the area with a gloved hand (digital rectal exam). Examine the area inside your butt using a small tube (anoscope). Order blood tests. This may be done if you have lost a lot of blood. Have you get a test that involves looking inside the colon using a flexible tube with a camera on the end (sigmoidoscopy or colonoscopy). How is this treated? This condition can usually be treated at home. Your doctor may tell you to change what you eat, make lifestyle changes, or try home treatments. If these do not help, procedures can be done to remove the hemorrhoids or make them smaller. These may involve: Placing rubber bands at the base of the hemorrhoids to cut off their blood supply. Injecting medicine into the hemorrhoids to shrink them. Shining a type of light energy onto the hemorrhoids to cause them to fall off. Doing surgery to remove the hemorrhoids or cut off their blood supply. Follow these instructions at home: Eating and drinking Eat foods that have a lot of fiber in them. These include whole grains, beans, nuts, fruits, and vegetables. Ask your doctor about taking products that have added fiber (fibersupplements). Reduce the amount of fat in your diet. You can do this by: ?Eating low-fat dairy products. ?Eating less red meat. ?Avoiding processed foods. Drink enough fluid to keep your pee (urine) pale yellow. Managing pain and swelling Take a warm-water bath (sitz bath) for 20 minutes to ease pain. Do this 3 4 times a day. You may dothis in a bathtub or using a portable sitz bath that fits over the toilet. If told, put ice on the painful area. It may be helpful to use ice between your warm baths. ?Put ice in a plastic bag. ?Place a towel between your skin and the bag. ?Leave the ice on for 20 minutes, 2 3 times a day. General instructions Take aynh-czc-yfzvdwb and prescription medicines only as told by your doctor. ?Medicated creams and medicines may be used as told. Exercise often. Ask your doctor how much and what kind of exercise is best for you. Go to the bathroom when you have the urge to poop. Do not wait. Avoid pushing too hard when you poop. Keep your butt dry and clean. Use wet toilet paper or moist towelettes after pooping. Do not sit on the toilet for a long time. Keep all follow-up visits as told by your doctor. This is important. Contact a doctor if you: Have pain and swelling that do not get better with treatment or medicine. Have trouble pooping. Cannot poop. Have pain or swelling outside the area of the hemorrhoids. Get help right away if you have: Bleeding that will not stop. Summary Hemorrhoids are swollen veins in the butt or around the opening of the butt. They can cause pain, itching, or bleeding. Eat foods that have a lot of fiber in them. These include whole grains, beans, nuts, fruits, and vegetables. Take a warm-water bath (sitz bath) for 20 minutes to ease pain. Do this 3 4 times a day. This information is not intended to replace advice given to you by your health care provider. Make sure you discuss any questions you have with your health care provider. Document Released: 11/14/2008 Document Revised: 02/13/2019 Document Reviewed: 06/27/2018 [employer] Patient Education 2019 [employer]. 01/02/2022 09:05:53 Endoscopy, Care After Procedure [facility] [place] Endoscopy Care After Procedure Please read the instructions outlined below and refer to this sheet in the next few weeks. These discharge instructions provide you with general information on [facility] Your doctor may also give you specific instructions. While your treatment has been planned according to the most current medical practices available, unavoidable complications occasionally occur. If you have any problems or questions after discharge, please call your doctor. ACTIVITY You may resume your regular activity but move at a slower pace for the next 24 hours. Take frequent rest periods for the next 24 hours. Walking will help expel (get rid of) the air and reduce the bloated feeling in your abdomen. No driving for 24 hours (because of the anesthesia (medicine) used during the test). You may shower. Do not sign any important legal documents or operate any machinery for 24 hours (because of the anesthesia used during the test). NUTRITION Drink plenty of fluids. You may resume your normal diet. Begin with a light meal and progress to your normal diet. Avoid alcoholic beverages for 24 hours or as instructed by your caregiver. MEDICATIONS You may resume your normal medications unless your caregiver tells you otherwise. WHAT YOU CAN EXPECT TODAY You may experience abdominal discomfort such as a feeling of fullness or gas pains. FOLLOW-UP Your doctor will discuss the results of your test with you. SEEK IMMEDIATE MEDICAL ATTENTION IF ANY OF THE FOLLOWING OCCUR: Excessive nausea (feeling sick to your stomach) and/or vomiting. Severe abdominal pain and distention (swelling). Trouble swallowing. Temperature over 100 F (37.8 C). Rectal bleeding or vomiting of blood. Document Released: 09/19/2004 Document Re-Released: 07/30/2006 ExitCare Patient Information 2009 [employer]. Follow Up Care 12/29/2021 13:36:34 With:Obed MASON Address: [address] [place] [address] Business (1) When:1 to 2 weeks Comments:Call for any problems. [facility]11-10-2022 Hospital Discharge instructions Patient Education 12/29/2021 13:20:31 Nausea, Adult Nausea, Adult Nausea is the feeling that you have an upset stomach or that you are about to vomit. Nausea on its own is not usually a serious concern, but it may be an early sign of a more serious medical problem.As nausea gets worse, it can lead to vomiting. If vomiting develops, or if you are not able to drink enough fluids, you are at risk of becoming dehydrated. Dehydration can make you tired and thirsty,cause you to have a dry mouth, and decrease how often you urinate. Older adults and people with other diseases or a weak disease-fighting system (immune system) are at higher risk for dehydration. The main goals of treating your nausea are: To relieve your nausea. To limit repeated nausea episodes. To prevent vomiting and dehydration. Follow these instructions at home: Watch your symptoms for any changes. Tell your health care provider about them. Follow these instructions as told by your health care provider. Eating and drinking Take an oral rehydration solution (ORS). This is a drink that is sold at pharmacies and retail stores. Drink clear fluids slowly and in small amounts as you are able. Clear fluids include water, ice chips, low-calorie sports drinks, and fruit juice that has water added (diluted fruit juice). Eat bland, nxcs-be-zkyllo foods in small amounts as you are able. These foods include bananas, applesauce, rice, lean meats, toast, and crackers. Avoid drinking fluids that contain a lot of sugar or caffeine, such as energy drinks, sports drinks, and soda. Avoid alcohol. Avoid spicy or fatty foods. General instructions Take ecpd-fkn-gpwgjxu and prescription medicines only as told by your health care provider. Rest at home while you recover. Drink enough fluid to keep your urine pale yellow. Breathe slowly and deeply when you feel nauseous. Avoid smelling things that have strong odors. Wash your hands often using soap and water. If soap and water are not available, use hand wool shearing supervisor. Make sure that all people in your household wash their hands well and often. Keep all follow-up visits as told by your health care provider. This is important. Contact a health care provider if: Your nausea gets worse. Your nausea does not go away after two days. You vomit. You cannot drink fluids without vomiting. You have any of the following: ?New symptoms. ?A fever. ?A headache. ?Muscle cramps. ?A rash. ?Pain while urinating. You feel light-headed or dizzy. Get help right away if: You have pain in your chest, neck, arm, or jaw. You feel extremely weak or you faint. You have vomit that is bright red or looks like coffee grounds. You have bloody or black stools or stools that look like tar. You have a severe headache, a stiff neck, or both. You have severe pain, cramping, or bloating in your abdomen. You have difficulty breathing or are breathing very quickly. Your heart is beating very quickly. Your skin feels cold and clammy. You feel confused. You have signs of dehydration, such as: ?Dark urine, very little urine, or no urine. ?Cracked lips. ?Dry mouth. ?Sunken eyes. ?Sleepiness. ?Weakness. These symptoms may represent a serious problem that is an emergency. Do not wait to see if the symptoms will go away. Get medical help right away. Call your local emergency services (911 in the [place] Do not drive yourself to the hospital. Summary Nausea is the feeling that you have an upset stomach or that you are about to vomit. Nausea on its own is not usually a serious concern, but it may be an early sign of a more serious medical problem. If vomiting develops, or if you are not able to drink enough fluids, you are at risk of becoming dehydrated. Follow recommendations for eating and drinking and take lxfr-ohl-upfwbla and prescription medicinesonly as told by your health care provider. Contact a health care provider right away if your symptoms worsen or you have new symptoms. Keep all follow-up visits as told by your health care provider. This is important. This information is not intended to replace advice given to you by your health care provider. Make sure you discuss any questions you have with your health care provider. Document Released: 03/15/2005 Document Revised: 07/16/2018 Document Reviewed: 07/16/2018 [employer] Patient Education 2020 [employer]. Follow Up Care 12/27/2021 13:34:02 With:LÓPEZ ALFRED, STEPHANI Clay, [facility] Address: [address] [place] [address]. [address] [place] [address] When:1 month Comments:Patient preference to discuss her immunodeficiency. [facility] [phone] Miscellaneous Notes* Telephone Encounter - Siri Lazaro - 12/22/2021 3:25 PM EDT Maria De Jesus (Nurse) with [facility] called in stating she currently with the patient doing the infusion. Maria De Jesus notice that the patient Blood Pressure has been getting low during the infusion. Starting BP: 100-67 Second BP: 86/53 Currently BP: 81/51 Patient stated that she POTS, some symptom the patient is having is dizziness. Maria De Jesus has slow down on the infusion. Maria De Jesus can be reached at [phone] Maria De Jesus would like to know what she should do. documented in this encounterProtestant Hospital10-18-2022 Miscellaneous Notes* Telephone Encounter - Siri Lazaro - 12/06/2021 3:35 PM EDT Fax over the Plan of Care to [facility]. Dates: 11/12/21 to 05/11/22 Uploaded into real trendss. Please allow time for upload. documented in this encounterProtestant Hospital10-17-2022 Miscellaneous Notes* Telephone Encounter - Jackie Last RN - 12/05/2021 8:50 AM EDT Patient asking to try a different treatment than robaxin. Alis Last RN documented in this encounterProtestant Hospital10-11-2022 Instructions* Patient Instructions* Chito Noyola MD - 11/29/2021 10:41 AM EDT It was a pleasure to see you today. Here is a reminder of the plan we made: 11/29/2021 Visit: Agree with Sleep Medicine referral. Would consider Sleep Psychology depending on the diagnosis Can consider a referral to Headache Neurology Continue propranolol. Further improvement in tremor is likely going to come at the cause of significant side effects Follow up with me in mid February, . Please reach out to me prior to the appointment with an update so we can decide about possibly switching it to in person documented in this encounterProtestant Hospital10-11-2022 History of Present illness Narrative* Chito Noyola MD - 11/29/2021 10:02 AM EDT [facility] - NEW PATIENT EVALUATION Saroj Foss [address] [facility] [address] Lizy Soria DO [address] [facility] [address] Foss: Thank you for referring Ms. Barr to our clinic today. As you know she is a 36 year old right-handed female who is seen in consultation for evaluation of Tremulousness since 2020. She is seen alone. Subjective HISTORY OF PRESENT ILLNESS: Initial HPI Patient is seen in the Neuromuscular clinic of episodes of weakness numbness as well as autonomic instability of unclear etiology. She also complains of shaking throughout her entire body. This has been present in her hands since she was a child but worsening recently to the point of legs shaking as she goes down the stairs. Going down a river walk also triggers the symptoms. Straining her legs in any way other than simply walking can do this. Movements are large and feels as though her legs are giving out from under her. They have completely buckled out from under her and at times strength does not improve afterward. On one occasion she couldn't lift her leg up afterward. Arm tremor would create some trouble writing prior to starting propranolol. Also has twitching movements that have caused her to throw objects out. Is unaware of whether her heart is racing her blood pressure is low during these. Patient's father and grandfather and maternal aunt had tremor but are undiagnosed. Alcohol calms the tremor down. Was given propranolol which helped a little. Her primary complaint is of episodes of weakness and numbness. Also having nervousness symptom issues. Blood pressure can fluctuate to the extent of passing out or increase significantly. Normally islow. Memory is also affected. Temperature also varies significantly between freezing and profuse sweating. Has head pressure that is uncomfortable and can cause her vision to change at times. This isworse when lying down but is constantly present. Much of this is linked to not being on IVIG for a few months due to insurance reasons which still haven't resolved after a year of resuming. Questionnaires: In addition, the following areas that may be affected by abnormal involuntary movements were evaluated: Daily activities Difficulties with eatin (none) Difficulties in dressing: Yes (slight) Difficulties with hygiene activities: 0 (none) Difficulties with handwriting: Yes (mild) Difficulties with doing hobbies and other activities: Yes (moderate) Difficulties turning in bed: 0 (none) Difficulties getting out of bed, car or chair: Yes (slight) Tremors/Gait/Balance Shaking or tremors: Yes (severe) Walking and balance problems: Yes (slight) Number of falls in the Last Month: 1 Gait freezin (none) Autonomic/Pain Lightheadeness on standing: Yes (moderate) Urinary problems: Yes (slight) Constipation problems: Yes (slight) Pain and other sensations: Yes (moderate) Speech/Swallowing Speech problems: 0 (none) Droolin (none) Chewing and swallowing problems: Yes (moderate) Sleep/Fatigue Sleep problems: Yes (moderate) Patient has sleeping issues since childhood. Trouble falling asleep and also sleep walks, waking up with bruising. Is scheduled to see a Sleep Specialist. Daytime sleepiness: Yes (mild) Fatigue: Yes (severe) Mood/Behavior Depression: PHQ-9 Score: 21 usually representing severe (20-27) depression. Anxiety: MUMTAZ-7 Total Score: 16 usually representing severe (>15) anxiety. Finally, the following table shows the patient's overall global physical and mental health using the PROMIS scale: PROMIS-10 Flowsheet Row Office Visit from 11/23/2021 in Neurology [facility] from 08/08/2021 in Allergy Global Physical Health T Score 32.4 39.8 Global Mental Health T Score 31.3 25.1 0-10 Standard Pain Scale 4 4 *PROMIS-10 scoring scale: mean = 50, over 50 is above average, under 50 is below average ALLERGIES Allergen Reactions Antidepressants [Se* Other: See Comments It knocks me out. Rondec [Bromphenira* crying for 12 solid hours-per mom Current Outpatient Medications Medication Sig methocarbamol (ROBAXIN) 500 mg tablet Take 1 tablet by mouth three times daily. propranolol ER (INDERAL LA) 60 mg 24 hr capsule Take 1 capsule by mouth once daily. fluconazole (DIFLUCAN) 100 mg tablet Take 1 tablet by mouth once daily. busPIRone (BUSPAR) 10 mg tablet Take 30 mg by mouth. FLUoxetine (PROZAC) 20 mg capsule Take 60 mg by mouth. immune globulin, human,, IgG, (GAMMAGARD LIQUID) 10 % soln Inject 450 mL intravenously every 3 weeks. 0.9 % sodium chloride (NACL 0.9%) infusion Inject 200 mL/hr intravenously continuous. 1L during IVIG infusions OXcarbazepine (TRILEPTAL) 150 mg tablet Take 1 tablet by mouth twice daily. diphenhydrAMINE (BENADRYL) 25 mg capsule Take 1 capsule by mouth as directed. Use as directed. meloxicam (MOBIC) 15 mg tablet TAKE ONE TABLET BY MOUTH ONCE DAILY FOR 30 DAYS Current Facility-Administered Medications Medication Dose Route Frequency acetylcholine 10% solution - cchs compounding 20 mL IRRIGATION ONE TIME Past Medical and Surgical History: has a past medical history of Anxiety, Convulsions, Depression, Grand mal convulsion (HCC), Hypogammaglobulinaemia, unspecified, Hypothyroid, Intussusception (HCC), Low back pain, PMS (premenstrual syndrome), POTS (postural orthostatic tachycardia syndrome), Tobacco abuse, and Vitamin D deficiency. has a past surgical history that includes past surgical history of (2005); esophagogastroduodenoscopy transoral diagnostic (09/2008); past surgical history of; colonoscopy flx dx w/collj spec when pfrmd (2011); colonoscopy flx dx w/collj spec when pfrmd; and esophagogastroduodenoscopy transoral diagnostic (12/17/14). Social History Tobacco Use Smoking status: Former Packs/day: 0.50 Years: 6.00 Pack years: 3.00 Types: Cigarettes Quit date: 12/20/2013 Years since quittin.9 Smokeless tobacco: Never Substance Use Topics Alcohol use: No Drug use: No Family History: family history includes AVM in her sister; Cancer in her paternal grandmother; Diabetes in her maternal aunt and mother; POTS in her sister; Raynauds in her mother; Thyroid in her maternal aunt, maternal aunt, and maternal uncle; healthy in her daughter. In addition, the patient denies any family history of PD/parkinsonism, tremor, other involuntary movement disorders. Objective Physical Examination: Vital Signs: BP 112/67 Pulse 68 Resp 14 Ht 154.9 cm (5' 1 ) Wt 59.4 kg (131 lb) LMP 09/20/2015 SpO2 99% BMI 24.75 kg/m General: Awake, alert, interactive, no acute distress, good nutritional status, normal development,well-kept Neurological Exam Mental Status Awake, alert and oriented to person, place and time. Recent and remote memory are intact. Speech isnormal. Language is fluent with no aphasia. Attention and concentration are normal. Fund of knowledge is appropriate for level of education. Cranial Nerves CN II: Visual acuity is normal. Visual sylvester full to confrontation. CN III, IV, : Extraocular movements intact bilaterally. Normal lids and orbits bilaterally. Pupils equal round and reactive to light bilaterally. CN V: Facial sensation is normal. CN VII: Full and symmetric facial movement. CN VIII: Hearing is normal. CN IX, X: Palate elevates symmetrically. Normal gag reflex. CN XI: Shoulder shrug strength is normal. CN XII: Tongue midline without atrophy or fasciculations. Motor Normal muscle bulk throughout. Strength is 5/5 throughout all four extremities. Sensory Sensation is intact to light touch, pinprick, vibration and proprioception in all four extremities. Reflexes Right Left Brachioradialis 2+ 2+ Biceps 2+ 2+ Triceps 2+ 2+ Patellar 2+ 2+ Achilles 2+ 2+ Additional Movement Disorder Examination: Hypophonia: Negative Hypomimia: Negative Rigidity: Negative Bradykinesia: Negative Postural tremor: Upper: Right: Slight Left: Slight Lower: Right: Not tested Left Not tested Action tremor: Upper: Right: Slight Left: Slight Lower: Right: Not tested Left Not tested Rest tremor: Negative Retropulsion: Negative Gait: Normal Assessment Ms. Barr is a right-handed 36 year old female with symptoms consistent with essential tremor with recent worsening and emergent of atypical symptoms. Patient's longstanding tremor with a positive family history as well as improvement when drinking alcohol sounds very consistent with essential tremor, with an expected improvement upon starting propranolol. However, the difficulty and shaking she has when going down stairs is of a different description. This is a shaking as if her legs will give way, after which they sometimes do. Because it would require going down--and possibly falling--a set of stairs I deferred this part of the evaluation,but if the primary problem is not fixed, it may prove useful for a Physical Therapy to evaluate this in a more controlled setting. For the time being we agreed on holding off on this due to the high l ikelihood that symptoms would improve if a cause for the primary complaint is identified and treated. It is also likely that her sleep, pain and mood problems are worsening her other neurological symptoms, in addition to being a possible culprit behind patient's almost universal medication intolerance. I discussed this with her and reemphasized the importance of seeking an answer to her longstanding sleeping difficulties and also findings ways to address depression and anxiety, which have a potential to greatly improve if sleep is addressed. The following are the current problems noted and addressed during this visit: Tremulousness (primary encounter diagnosis) Plan 11/29/2021 Visit: Agree with Sleep Medicine referral. Would consider Sleep Psychology depending on the diagnosis Can consider a referral to Headache Neurology Continue propranolol. Further improvement in tremor is likely going to come at the cause of significant side effects Follow up with me in mid February, . Please reach out to me prior to the appointment with an update so we can decide about possibly switching it to in person Interested in clinical research? Not currently Level of service : 63975 (60-74) min). Time spent 60 min on the day of service, which included preparing to see the patient, [id number] patient care, completing clinical documentation, obtaining and/or reviewing separately obtained history, performing a medically appropriate examination, counseling and educating the patient/family/caregiver, and ordering medications, tests, or procedures Thank you for allowing me to be part of the clinical care of this patient! I look forward to continued participation in the patient s care with you. Please do not hesitate to call with any questions. Sincerely, Chito Noyola MD Associate Staff [facility] documented in this encounterProtestant Hospital10-05-2022 Instructions* Patient Instructions* Saroj Foss APRN.MANAGER TRADING - 11/23/2021 12:33 PM EDT 1. Labs 2. Robaxin 500 mg up to 3 x daily as needed 3. Consult to sleep medicine 4. Consult to movement disorders documented in this encounterProtestant Hospital10-05-2022 History of Present illness Narrative* Saroj Foss APRN.CNP - 11/23/2021 11:45 AM EDT Images from the original note were not included. [facility] Follow-Up/Established Patient Visit Chief Complaint/Issues: Ben Barr is a 36 year old handed right-handed female seen in the [facility]: Follow up Subjective weakness Brief HPI /Most Recent Department Assessment and Plan: Seen for initial evaluation on 09/20/2021. She has symptoms of episodic weakness and paresthesias, two episodes total. ...she had numbness of arms and legs, weakness (1 episode resulting in a fall), and tremulousness. She states her legs were so weak in the hospital she could not lift them. She also has a more constant numbness of bilateral lower arms. She also experiences fatigue, and is sometimes sleeping 16 hours per day. With some weakness of L hip and elbow extension on exam. Need to rule out demyelinating disease given age and symptomatology. She also has a constant ongoing head pressure for about 2 years. Not migrainous in nature. Symptomsare worst in the morning and are worse when flat. Need to evaluate for IIH She also have episodes of tachycardia and hypotension. She has seen Dr. Villa in the past with diagnosis of autonomic neuropathy. She is normotensive today with normal sensory exam. I would like toget updated testing to confirm or refute this diagnosis. 1. MRI Brain and Cervical Spine W/ W/o - WNL, c-spine demonstrating some facet arthropathy, disc buldge, osteophytes; Brain WNL 2. Consult to ophthalmology for dilated eye exam, concern for papilledema / IIH 3. QSART - Not yet completed, scheduled for 01/2022 4. Skin Biopsy - WNL 5. Autonomic reflex with tilt - Not yet completed, scheduled for 01/2022 6. Labs (fasting) - WNL, see below Seen by Dr. Castillo, ophthalmology 10/03/2021: The patient's neuro-ophthalmic exam today fortunately did not show any disc edema by dilated fundusexam nor OCT, which is reassuring given the positional component of her pressure-like headaches. She did have subnormal best corrected visual acuity in both eyes with nonspecific areas of decreased sensitivity on lemos visual field in the setting of a headache, so ideally this testing should be repeated locally when her headaches/pressure are under better control. I did offer to refer her to an eye doctor here at [place], but she would prefer to establish with a local eye doctor (given then distance). Efferent function was intact. I otherwise provided the patient with reassurance as I do not suspect a primary neuro-ophthalmic etiology underlying her headaches that may reflect a migraine spectrum disorder (particularly in the setting of POTS) and she is fortunately pending contrast-enhanced neuroimaging 10/11 to exclude a moresinister etiology. I recommended that the patient follow up as scheduled with her primary neurologist and to establishwith a primary eye care provider for ongoing dilated exams. I otherwise encouraged the patient to please contact me if any neuro- ophthalmic concerns arise in the future. Today: Since last visit, she has not had any falls. She has ongoing symptoms of leg weakness. She gets shakiness of legs and feels like she can fall down the stairs. She has the leg weakness every day (was previously intermittent). Weakness is worse in the morning. She also has a tremor in her hands. She has trouble writing at times due to the shaking. Her brain functions better in the afternoon, she struggles with this in the AM. She has not had any recurrent episodes of leg numbness. She gets fluttering sensation in her arms and legs. She reports she has had some episodes of leaning back while walking. She describes this as an instability. She does not have trouble holding herself up while seated. She has ongoing symptom of head pressure. This makes her nose runny and has a nasal drip. She has light sensitivity, but denies phonophobia. No osmophobia. She does have nausea and vomiting, but not related to her headaches. Activity does not worsen head pressure. Her eyes feel sensitive. She describes a wrapping pain around her head, affecting her most bilateral frontal. She has a lot of neck tension as well. She is sleeping up to 17 hours on the weekends. She feels exhausted all the time. PMH Anxiety CVID Depression Hypogammaglobulinemia Hypothyroidism Intussusception (bowel resection) Low back pain Pituitary microadenoma PMS PTSD Seizure disorder Tobacco use Upper GI Bleed PAST SURGICAL HISTORY Procedure Laterality Date COLONOSCOPY FLX DX W/COLLJ SPEC WHEN PFRMD 2011 Colonoscopy COLONOSCOPY FLX DX W/COLLJ SPEC WHEN PFRMD Colonoscopy ESOPHAGOGASTRODUODENOSCOPY TRANSORAL DIAGNOSTIC 09/2008 neg duodenal bx ESOPHAGOGASTRODUODENOSCOPY TRANSORAL DIAGNOSTIC 12/17/14 EGD PAST SURGICAL HISTORY OF 2005 partial bowel resection PAST SURGICAL HISTORY OF ingrown toenails removed ALLERGIES Allergen Reactions Antidepressants [Se* Other: See Comments It knocks me out. Rondec [Bromphenira* crying for 12 solid hours-per mom Social History Tobacco Use Smoking status: Former Packs/day: 0.50 Years: 6.00 Pack years: 3.00 Types: Cigarettes Quit date: 12/20/2013 Years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 and physical Current management of orthostatic condition Diet: Standard [place] Exercise: No Water: 2-3 16 ounces Salt: Gatorade Stockings: No Medications Current Medications: -IgG -Oxcarbazepine 150 mg BID -Metoprolol 50 mg BID -Prozan 60 mg -Buspar 30 mg -Benadryl Medications tried previously (failed): -None Relevant Work Up To Date Autonomic Reflex w/ Tilt 06/29/2009 Heart rate response to deep breathing is normal via the mean heart rate range and the E:I ratio. Heart rate response to the Valsalva maneuver, as assessed by the Valsalva ratio is reduced and the blood pressure responses to phase II of the maneuver is reduced and the blood pressure response to phase IV of the maneuver is absent. During 10 minutes of 60 degrees head-up tilt, heart rate and blood pressure responses were normal. This is abnormal cardiovascular autonomic test panel due to the abnormal heart rate and blood pressure responses to the Valsalva maneuver. These findings are non-specific for etiology but suggest some degree of cardiovagal and cardiovascular adrenergic dysfunction. 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 QSART 06/29/2009 QSART responses are essentially absent at all sites. This finding is nonspecific for etiology and in the apparent absence of any potential anticholinergic medications is consistent with a postganglionic sympathetic sudomotor abnormality like that seen in autonomic/small fiber neuropathy. Skin Biopsy 09/07/2009 IMPRESSION: This biopsy is normal. It shows no evidence of a small fiber sensory neuropathy. vEEG EMU admission 09/29/2014 Impression and Plan This EMU evaluation from 09/24/2014 to 09/29/2014 shows no evidence of epilepsy. Two episodes were recorded; one of brain fog and the other of right hand tremor with no EEG changes. One sharp wave was seen from the left frontotemporal region. Intermittent generalized and left greater than right temporal slowing was observed thought to be due in part to medication effect given the patient is taking Ultram and Xanax multiple times daily. General Examination: BP 133/80 Pulse 66 Ht 154.9 cm (5' 1 ) Wt 59 kg (130 lb) LMP 09/20/2015 BMI 24.56 kg/m 09/20/21 0858 09/20/21 0939 09/20/21 0940 09/20/21 0941 BP: 133/80 Orthostatic BP: 123/84 128/84 142/92 BP Position: Supine Supine Supine Pulse: 66 Orthostatic Pulse: 62 66 74 Weight: 59 kg (130 lb) Height: 154.9 cm (5' 1 ) Neurological Examination: Cognition The patient is alert and oriented times four. Lucid and organized in conversation. Able to provide detailed medical hx. Speech Speech is Normal in fluency, volume, and clarity. No dysarthria. Content and syntax are coherent. Comprehension: Able to follow several step commands. Cranial Nerves PERRLA No ptosis. Visual sylvester are full to confrontation. Extraocular movements are intact. Smooth saccades and pursuits. No nystagmus. Facial motor exam is strong and symmetric. Equal sensation of trigeminal nerve - V1,V2, and V3. Soft palate elevation is symmetric, tongue is in midline, no tongue fasciculation. Neck range of motion is full. Trapezius Strength is symmetric, graded 5/5. Tone and Bulk Tone and bulk is normal and preserved bilaterally of arms. Tone and bulk is normal and preserved bilaterally of legs. No apparent muscle atrophy. No pes cavus or hammer toes. Strength Right Left Shoulder Abduction 5/5 5/5 Elbow Flexion 5/5 5/5 Elbow Extension 5/5 4+/5 Wrist Flexion 5/5 5/5 Wrist Extension 5/5 5/5 Finger Extension 5/5 5/5 Finger Flexion 5/5 5/5 Finger Abduction 5/5 5/5 Hip Flexion 5/5 4+/5 Hip Adduction 5/5 5/5 Hip Abduction 5/5 5/5 Knee Flexion 5/5 5/5 Knee Extension 5/5 5/5 Ankle Dorsiflexion 5/5 5/5 Ankle Plantarflexion 5/5 5/5 Ankle Inversion 5/5 5/5 Ankle Eversion 5/5 5/5 Big Toe Extension 5/5 5/5 Movement/Coordination Finger-to- nose-finger and icee-tj-zvam intact bilaterally. No evidence of ataxia arms. No limb dysmetria of arms and legs. Rapid alternating movements of pronation and supination, finger and hand tapping intact. There is no asterixis of the hands. No rigidity, cog wheeling, or bradykinesia. No tremors. No extrapyramidal findings or dystonia. Sensation Intact to light touch, pinprick, and temperature sensation at toes and fingers, bilaterally. Normal proprioception (toe position and thumb). Normal finger vibration and toe vibration. Reflexes Right Left Bicep 2/4 2/4 Tricep 2/4 2/4 Brachioradialis 2/4 2/4 Patella 2/4 2/4 Ankle 2/4 2/4 No Clonus. Negative Babinski (toes curl down). Beckford sign not present. Gait Able to stand without upper body assistance. Normal station and stride. No festination or retropulsion. Good arm swing and body turn. Normal toe, heel, and tandem walk. Romberg's sign is negative. General Exam Neurological Exam Assessment & Plan 09/20/2021 - Neuromuscular, Saroj Foss APRN.[facility] ASSESSMENT Ben Barr is a 35 year old here today for initial evaluation. Relevant history anxiety, CVID,depression, hypogammaglobulinemia, hypothyroidism, intussusception, LBP, pituitary microadenoma, PMS, PTSD, seizure disorder, tobacco use, GI bleed. She has symptoms of episodic weakness and paresthesias. She describes she had two episodes total, where she had numbness of arms and legs, weakness (1 episode resulting in a fall), and tremulousness.She states her legs were so weak in the hospital she could not lift them. She also has a more constant numbness of bilateral lower arms. She also experiences fatigue, and is sometimes sleeping 16 hours per day. With some weakness of L hip and elbow extension on exam. Need to rule out demyelinating disease given age and symptomatology. She also has a constant ongoing head pressure for about 2 years. Not migrainous in nature. Symptomsare worst in the morning and are worse when flat. Need to evaluate for IIH. She also have episodes of tachycardia and hypotension. She has seen Dr. Villa in the past with diagnosis of autonomic neuropathy. She is normotensive today with normal sensory exam. I would like toget updated testing to confirm or refute this diagnosis. PLAN 1. MRI Brain and Cervical Spine W/ W/o 2. Consult to ophthalmology for dilated eye exam, concern for papilledema / IIH 3. QSART 4. Skin Biopsy 5. Autonomic reflex with tilt 6. Labs (fasting) Return After testing. My impression and recommendations were discussed at length with the patient (and family members, ifpresent). The patient and family (if present) voiced understanding to my recommendations. All questions were answered. Medication side effects discussed as applicable. The patient was provided with adetailed after visit summary highlighting my impression and recommendations. I spent a total of 55 minutes on the date of the service which included preparing to see the patient, [id number] patient care, completing clinical documentation, obtaining and/or reviewing separately obtained history, performing a medically appropriate examination, counseling and educating the pat ient/family/caregiver and ordering medications, tests, or procedures. Saroj Fsos APRN.[facility] General Neurology [address] [place]. [address] Appointment: [phone] CONSULT: Consultation requested by Dr. Kiser for an opinion regarding POTS. My final recommendations will be communicated back to the requesting physician by way of shared Medical record or letter to requesting physician via US mail. During our face to face clinical encounter we discussed my concerns neurologically in terms of diagnosis, impact on health and activities of living, and addressed questions. I tried to reassure the patient and also address questions. I explained to the patient to call if any questions, to review res ults, and I want to see them return for neurological follow up as mychart as next steps of communication is agreed upon Patient verbalizes understanding and I have addressed concerns and questions at this visit Patient has my contacts, educational material provided, and my chart sign up. After visit summary discussed. 1. This office note has been dictated and may contain minor typographic errors that escaped review. 2. The nursing staff and medical assistants are a major part of YOUR TREATMENT TEAM and will be handling your phone calls and inquiries, if any. Unless explicitly told otherwise at the time of your office visit, your study results and ensuing treatment plans will be discussed during your follow-up appointment. If you do not have a follow-up appointment and wish to discuss any issues directly withme, please feel free to obtain one. 3. It is my practice to not fill disability or any other insurance-related forms/documention. All of the office notes, study results, and other pertinent documentation generated as part of your evaluation will be available to you and to your Primary Care Physician (PCP). Use of this material to complete such forms will be at the discretion of your PCP/referring physician documented in this encounterProtestant Hospital06-30-2022 Miscellaneous Notes* Telephone Encounter - Siri Lazaro - 08/18/2021 4:55 PM EDT Fax over two different prescriptions to the [facility]. Medication: Fluconazole Refill: 1 Medication: Azithromycin Refills: 11 Uploaded both fax's into [employer] [facility]. documented in this encounterProtestant Hospital06-29-2022 Miscellaneous Notes* Telephone Encounter - Siri Lazaro - 08/17/2021 1:14 PM EDT Received a call from Dr. Lizy Soria requesting to speak with Dr. Kiser about the chart for the patient. He did advise there was no freed or urgency on the call. Sent an e-mail to Dr. Kiser with call back number. documented in this encounterProtestant Hospital06-20-2022 History of Present illness Narrative* Arsh Kiser MD, PhD - 08/08/2021 6:45 AM EDT VIRTUAL VISIT PROGRESS NOTE This is a virtual visit. It required patient-provider interaction for the medical decision making as documented below. I had the pleasure of seeing Ms. Barr in the [facility] at [facility] for follow up of CVID Last visit D83.9) CVID (common variable immunodeficiency) (HCC) (primary encounter diagnosis) Comment: Still fatigue, GI symptoms, congestion--better on 45g. Having wear off Plan: Will go to 45g every 3 weeks. If no better maybe every 2 weeks. (B99.9) Recurrent infections (R53.83) Other fatigue Comment: worse Plan: likely multifactorial (I49.8) POTS (postural orthostatic tachycardia syndrome) Comment: likely diagnosis Plan: Will see if she can see Dr. Fox (R10.10) Pain of upper abdomen Comment: a bit better Plan: EGD normal Today they state she feels the every 3 weeks is helping with fatigue and GI symptoms. Still with recurrent sinus pressure and drainage. Will see ENT. +Nausea but no vomiting. Current Outpatient Medications Medication Sig immune globulin, human,, IgG, (GAMMAGARD LIQUID) 10 % soln Inject 450 mL intravenously every 3 weeks. 0.9 % sodium chloride (NACL 0.9%) infusion Inject 200 mL/hr intravenously continuous. 1L during IVIG infusions OXcarbazepine (TRILEPTAL) 150 mg tablet Take 1 tablet by mouth twice daily. metoprolol tartrate, short acting, (LOPRESSOR) 50 mg tablet Take 1 tablet by mouth twice daily. diphenhydrAMINE (BENADRYL) 25 mg capsule Take 1 capsule by mouth as directed. Use as directed. No current facility-administered medications for this visit. 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 Anticoagulation Management Encounter Mild Protein-Calorie Malnutrition (Hcc) Attention to Ileostomy (Hcc) Postoperative Pain Postoperative Ileus (Hcc) REVIEW OF SYSTEMS GENERAL: Fatigue HEENT: SEE HPI NECK: Negative for lumps, goiter, pain and significant neck swelling RESPIRATORY: Negative for cough, hemoptysis, wheezing, COPD, dyspnea or shortness of breath CARDIOVASCULAR: Negative for chest pain, leg swelling, hypertension, CHF or palpitations GI: See HPI MUSCULOSKELETAL: Negative for joint pain or swelling, back pain or muscle pain SKIN: Negative for lesions, rash, and itching HEMATOLOGY/LYMPHOLOGY: Negative for prolonged bleeding, bruising easily or swollen nodes ENDOCRINE: Negative for cold or heat intolerance, polyuria, polydipsia and goiter NEURO: No history of headaches, syncope, paralysis, seizures or tremors PHYSICAL EXAMINATION: VIDEO EXAM: (if completed, performed via video enabled technology) GENERAL: alert and appropriate, in no distress, well-hydrated, well nourished and happy, smiling, interactive SKIN: no rash noted HEAD: normocephalic, no abnormality or lesion noted EYES: no injection and visual acuity is grossly normal EARS: hearing grossly normal NOSE: external nose normal without rhinorrhea OROPHARYNX: moist mucus membranes NECK: full ROM, no cervical LNs noted RESPIRATORY: breathing non-labored CHEST: equal chest rise with normal respiratory effort ABDOMEN: soft and non-tender NEUROLOGIC: no obvious deficit LABS: Labs and films from outside facility reviewed today. A/P: (D83.9) CVID (common variable immunodeficiency) ([facility]) (primary encounter diagnosis) Comment: on 46g IVIG every 3 weeks. Doing well except sinus presssure. Abx don't help but steroids do. Plan: Will see ENT (B99.9) Recurrent infections Comment: as above (K63.9) Enteropathy Comment: better on q3 weeks IVIG F/U:6 months documented in this encounterProtestant Hospital05-27-2022 Miscellaneous Notes* Telephone Encounter - Jenny South APRN.[employer] - 07/15/2021 11:39 AM EDT This is OK. Thanks. * Telephone Encounter - Siri Lazaro - 07/15/2021 9:59 AM EDT Salty from [facility] called in wondering if this one time they can give the orgingal prescription of: 0.9 % sodium chloride (NACL 0.9%) infusion For today during the infusion, since the shipment for the DW5 will not be in till next week. documented in this encounterProtestant Hospital05-09-2022 Miscellaneous Notes* Telephone Encounter - Siri Lazaro - 06/27/2021 1:07 PM EDT Fax over the prescription to [facility]. Uploaded into [employer]. documented in this encounterProtestant Hospital04-27-2022 Miscellaneous Notes* Telephone Encounter - Siri Lazaro - 06/15/2021 12:[address] [facility] Rep Called in again stating that its been an exteremly long day with the infusion going anywhere from 8 to 9 hrs and wanted to see if the hydradtion orders and can be changed to D5W, so that it can be compatible with Gammagard during infusion. Maria De Jesus LOMELI [phone] Or Yasmin at 1- [phone] option 2, than option 2 documented in this encounterProtestant Hospital04-15-2022 Miscellaneous Notes* Telephone Encounter - Siri Lazaro - 06/03/2021 1:20 PM EDT Maria De Jesus (RN) with [facility] called in stating that the Hyrdation bag that was prescribe (.9 normal bag of 1000 pre-Hydration bag) is not compatible with the IV infusion. Maria De Jesus is wanting to know if she can use the D5W hydration bag which would be compatible with the IV infusion? Please call Maria De Jesus at [phone] documented in this encounterProtestant Hospital03-01-2022 Hospital Discharge instructions Follow Up Care 04/19/2021 17:34:32 With:Lizy SORIA DO, FAM Address: [address] [place] [address]- When:Within 3 Month(s) [facility] [place] 10-19-2021 Evaluation note* Encounter Date Diagnosis Assessment Notes Treatment Notes Treatment Clinical Notes Nov, Encounter for screening for other viral diseases (ICD-10 - Z11.59) Nov, Other Additional time spent conducting pre-visit phone call, screening for symptoms, instructions on social distancing, application and removal of PPE, and cleaning of examination room, equipment and supplies was preformed. Patient education given for testing methodology and results. Patient care instructions given in writting by [facility] Care At Home document. [facility] in [place] Other 05-31-2017 History of Past illness Narrative* Problem Noted Date Resolved Date Upper GI bleed 07/19/2016 07/20/2016 Vitamin D deficiency 05/04/2009 05/04/2009 documented as of this encounter (statuses as of 06/03/2021) [facility] Narrative* Problem Noted Date Resolved Date Upper GI bleed 07/19/2016 07/20/2016 Vitamin D deficiency 05/04/2009 05/04/2009 documented as of this encounter (statuses as of 06/15/2021) [facility] Narrative* Problem Noted Date Resolved Date Upper GI bleed 07/19/2016 07/20/2016 Vitamin D deficiency 05/04/2009 05/04/2009 documented as of this encounter (statuses as of 06/15/2021) [facility] Narrative* Problem Noted Date Resolved Date Upper GI bleed 07/19/2016 07/20/2016 Vitamin D deficiency 05/04/2009 05/04/2009 documented as of this encounter (statuses as of 06/27/2021) [facility] Narrative* Problem Noted Date Resolved Date Upper GI bleed 07/19/2016 07/20/2016 Vitamin D deficiency 05/04/2009 05/04/2009 documented as of this encounter (statuses as of 07/15/2021) [facility] Narrative* Problem Noted Date Resolved Date Upper GI bleed 07/19/2016 07/20/2016 Vitamin D deficiency 05/04/2009 05/04/2009 documented as of this encounter (statuses as of 08/09/2021) [facility] N[facility]ative* Problem Noted Date Resolved Date Upper GI bleed 07/19/2016 07/20/2016 Vitamin D deficiency 05/04/2009 05/04/2009 documented as of this encounter (statuses as of 08/15/2021) [facility]* Problem Noted Date Resolved Date Upper GI bleed 07/19/2016 07/20/2016 Vitamin D deficiency 05/04/2009 05/04/2009 documented as of this encounter (statuses as of 08/17/2021) [facility]* Problem Noted Date Resolved Date Upper GI bleed 07/19/2016 07/20/2016 Vitamin D deficiency 05/04/2009 05/04/2009 documented as of this encounter (statuses as of 08/18/2021) [facility]* Problem Noted Date Resolved Date Upper GI bleed 07/19/2016 07/20/2016 Vitamin D deficiency 05/04/2009 05/04/2009 documented as of this encounter (statuses as of 09/20/2021) [place] [id number] History of Past illness Narrative* Problem Noted Date Resolved Date Upper GI bleed 07/19/2016 07/20/2016 Vitamin D deficiency 05/04/2009 05/04/2009 documented as of this encounter (statuses as of 10/03/2021) [facility]* Problem Noted Date Resolved Date Upper GI bleed 07/19/2016 07/20/2016 Vitamin D deficiency 05/04/2009 05/04/2009 documented as of this encounter (statuses as of 10/12/2021) [facility]* Problem Noted Date Resolved Date Upper GI bleed 07/19/2016 07/20/2016 Vitamin D deficiency 05/04/2009 05/04/2009 documented as of this encounter (statuses as of 10/28/2021) [facility]* Problem Noted Date Resolved Date Upper GI bleed 07/19/2016 07/20/2016 Vitamin D deficiency 05/04/2009 05/04/2009 documented as of this encounter (statuses as of 10/31/2021) [facility]* Problem Noted Date Resolved Date Upper GI bleed 07/19/2016 07/20/2016 Vitamin D deficiency 05/04/2009 05/04/2009 documented as of this encounter (statuses as of 11/11/2021) [facility]* Problem Noted Date Resolved Date Upper GI bleed 07/19/2016 07/20/2016 Vitamin D deficiency 05/04/2009 05/04/2009 documented as of this encounter (statuses as of 11/23/2021) [facility]* Problem Noted Date Resolved Date Upper GI bleed 07/19/2016 07/20/2016 Vitamin D deficiency 05/04/2009 05/04/2009 documented as of this encounter (statuses as of 11/29/2021) [facility]* Problem Noted Date Resolved Date Upper GI bleed 07/19/2016 07/20/2016 Vitamin D deficiency 05/04/2009 05/04/2009 documented as of this encounter (statuses as of 12/06/2021) [facility]* Problem Noted Date Resolved Date Upper GI bleed 07/19/2016 07/20/2016 Vitamin D deficiency 05/04/2009 05/04/2009 documented as of this encounter (statuses as of 12/20/2021) [facility]* Problem Noted Date Resolved Date Upper GI bleed 07/19/2016 07/20/2016 Vitamin D deficiency 05/04/2009 05/04/2009 documented as of this encounter (statuses as of 12/22/2021) [facility]* Problem Noted Date Resolved Date Upper GI bleed 07/19/2016 07/20/2016 Vitamin D deficiency 05/04/2009 05/04/2009 documented as of this encounter (statuses as of 01/03/2022) [facility]* Problem Noted Date Resolved Date Upper GI bleed 07/19/2016 07/20/2016 Vitamin D deficiency 05/04/2009 05/04/2009 documented as of this encounter (statuses as of 01/11/2022) [facility]* Problem Noted Date Resolved Date Upper GI bleed 07/19/2016 07/20/2016 Vitamin D deficiency 05/04/2009 05/04/2009 documented as of this encounter (statuses as of 01/17/2022) [facility]* Problem Noted Date Resolved Date Upper GI bleed 07/19/2016 07/20/2016 Vitamin D deficiency 05/04/2009 05/04/2009 documented as of this encounter (statuses as of 01/19/2022) [facility]* Problem Noted Date Resolved Date Upper GI bleed 07/19/2016 07/20/2016 Vitamin D deficiency 05/04/2009 05/04/2009 documented as of this encounter (statuses as of 01/24/2022) [facility]* Problem Noted Date Resolved Date Upper GI bleed 07/19/2016 07/20/2016 Vitamin D deficiency 05/04/2009 05/04/2009 documented as of this encounter (statuses as of 01/26/2022) [facility]* Problem Noted Date Resolved Date Upper GI bleed 07/19/2016 07/20/2016 Vitamin D deficiency 05/04/2009 05/04/2009 documented as of this encounter (statuses as of 01/29/2022) [facility]* Problem Noted Date Resolved Date Upper GI bleed 07/19/2016 07/20/2016 Vitamin D deficiency 05/04/2009 05/04/2009 documented as of this encounter (statuses as of 01/30/2022) [facility]* Problem Noted Date Resolved Date Upper GI bleed 07/19/2016 07/20/2016 Vitamin D deficiency 05/04/2009 05/04/2009 documented as of this encounter (statuses as of 02/01/2022) [facility]* Problem Noted Date Resolved Date Upper GI bleed 07/19/2016 07/20/2016 Vitamin D deficiency 05/04/2009 05/04/2009 documented as of this encounter (statuses as of 02/01/2022) [facility]* Problem Noted Date Resolved Date Upper GI bleed 07/19/2016 07/20/2016 Vitamin D deficiency 05/04/2009 05/04/2009 documented as of this encounter (statuses as of 02/08/2022) [facility]* Problem Noted Date Resolved Date Upper GI bleed 07/19/2016 07/20/2016 Vitamin D deficiency 05/04/2009 05/04/2009 documented as of this encounter (statuses as of 02/12/2022) [facility]* Problem Noted Date Resolved Date Upper GI bleed 07/19/2016 07/20/2016 Vitamin D deficiency 05/04/2009 05/04/2009 documented as of this encounter (statuses as of 02/22/2022) [facility]* Problem Noted Date Resolved Date Upper GI bleed 07/19/2016 07/20/2016 Vitamin D deficiency 05/04/2009 05/04/2009 documented as of this encounter (statuses as of 02/22/2022) [facility]* Problem Noted Date Resolved Date Upper GI bleed 07/19/2016 07/20/2016 Vitamin D deficiency 05/04/2009 05/04/2009 documented as of this encounter (statuses as of 02/23/2022) [facility]* Problem Noted Date Resolved Date Upper GI bleed 07/19/2016 07/20/2016 Vitamin D deficiency 05/04/2009 05/04/2009 documented as of this encounter (statuses as of 03/01/2022) [facility]* Problem Noted Date Resolved Date Upper GI bleed 07/19/2016 07/20/2016 Vitamin D deficiency 05/04/2009 05/04/2009 documented as of this encounter (statuses as of 03/07/2022) [facility]* Problem Noted Date Resolved Date Upper GI bleed 07/19/2016 07/20/2016 Vitamin D deficiency 05/04/2009 05/04/2009 documented as of this encounter (statuses as of 03/08/2022) [facility]* Problem Noted Date Resolved Date Upper GI bleed 07/19/2016 07/20/2016 Vitamin D deficiency 05/04/2009 05/04/2009 documented as of this encounter (statuses as of 03/08/2022) [facility]* Problem Noted Date Resolved Date Upper GI bleed 07/19/2016 07/20/2016 Vitamin D deficiency 05/04/2009 05/04/2009 documented as of this encounter (statuses as of 03/08/2022) [facility]* Problem Noted Date Resolved Date Upper GI bleed 07/19/2016 07/20/2016 Vitamin D deficiency 05/04/2009 05/04/2009 documented as of this encounter (statuses as of 03/10/2022) [facility]* Problem Noted Date Resolved Date Upper GI bleed 07/19/2016 07/20/2016 Vitamin D deficiency 05/04/2009 05/04/2009 documented as of this encounter (statuses as of 03/13/2022) [facility]* Problem Noted Date Resolved Date Upper GI bleed 07/19/2016 07/20/2016 Vitamin D deficiency 05/04/2009 05/04/2009 documented as of this encounter (statuses as of 03/28/2022) [facility]* Problem Noted Date Resolved Date Upper GI bleed 07/19/2016 07/20/2016 Vitamin D deficiency 05/04/2009 05/04/2009 documented as of this encounter (statuses as of 04/11/2022) [facility]* Problem Noted Date Resolved Date Upper GI bleed 07/19/2016 07/20/2016 Vitamin D deficiency 05/04/2009 05/04/2009 documented as of this encounter (statuses as of 04/12/2022) [facility]* Problem Noted Date Resolved Date Upper GI bleed 07/19/2016 07/20/2016 Vitamin D deficiency 05/04/2009 05/04/2009 documented as of this encounter (statuses as of 04/13/2022) [facility]* Problem Noted Date Resolved Date Upper GI bleed 07/19/2016 07/20/2016 Vitamin D deficiency 05/04/2009 05/04/2009 documented as of this encounter (statuses as of 04/13/2022) [facility]* Problem Noted Date Resolved Date Upper GI bleed 07/19/2016 07/20/2016 Vitamin D deficiency 05/04/2009 05/04/2009 documented as of this encounter (statuses as of 04/14/2022) [facility]* Problem Noted Date Resolved Date Upper GI bleed 07/19/2016 07/20/2016 Vitamin D deficiency 05/04/2009 05/04/2009 documented as of this encounter (statuses as of 04/14/2022) [facility]* Problem Noted Date Resolved Date Upper GI bleed 07/19/2016 07/20/2016 Vitamin D deficiency 05/04/2009 05/04/2009 documented as of this encounter (statuses as of 04/17/2022) [facility]* Problem Noted Date Resolved Date Upper GI bleed 07/19/2016 07/20/2016 Vitamin D deficiency 05/04/2009 05/04/2009 documented as of this encounter (statuses as of 05/12/2022) [facility]* Problem Noted Date Resolved Date Upper GI bleed 07/19/2016 07/20/2016 Vitamin D deficiency 05/04/2009 05/04/2009 documented as of this encounter (statuses as of 06/09/2022) [facility]* Problem Noted Date Resolved Date Upper GI bleed 07/19/2016 07/20/2016 Vitamin D deficiency 05/04/2009 05/04/2009 documented as of this encounter (statuses as of 06/13/2022) [facility]* Problem Noted Date Resolved Date Upper GI bleed 07/19/2016 07/20/2016 Vitamin D deficiency 05/04/2009 05/04/2009 documented as of this encounter (statuses as of 06/20/2022) [facility]* Problem Noted Date Resolved Date Upper GI bleed 07/19/2016 07/20/2016 Vitamin D deficiency 05/04/2009 05/04/2009 documented as of this encounter (statuses as of 06/27/2022) [facility]* Problem Noted Date Resolved Date Upper GI bleed 07/19/2016 07/20/2016 Vitamin D deficiency 05/04/2009 05/04/2009 documented as of this encounter (statuses as of 06/27/2022) [facility] Problem Noted Date Resolved Date Upper GI bleed 07/19/2016 07/20/2016 Vitamin D deficiency 05/04/2009 05/04/2009 documented as of this encounter (statuses as of 06/28/2022) [facility] History of Past illness Narrative* Problem Noted Date Resolved Date Upper GI bleed 07/19/2016 07/20/2016 Vitamin D deficiency 05/04/2009 05/04/2009 documented as of this encounter (statuses as of 06/30/2022) [facility] History of Past illness Narrative* Problem Noted Date Resolved Date Upper GI bleed 07/19/2016 07/20/2016 Vitamin D deficiency 05/04/2009 05/04/2009 documented as of this encounter (statuses as of 07/03/2022) [facility] History of Past illness Narrative* Problem Noted Date Resolved Date Upper GI bleed 07/19/2016 07/20/2016 Vitamin D deficiency 05/04/2009 05/04/2009 documented as of this encounter (statuses as of 07/03/2022) [facility] History of Past illness Narrative* Problem Noted Date Resolved Date Upper GI bleed 07/19/2016 07/20/2016 Vitamin D deficiency 05/04/2009 05/04/2009 documented as of this encounter (statuses as of 07/11/2022) [facility] History of Past illness Narrative* Problem Noted Date Resolved Date Upper GI bleed 07/19/2016 07/20/2016 Vitamin D deficiency 05/04/2009 05/04/2009 documented as of this encounter (statuses as of 07/16/2022) [facility] History of Past illness Narrative* Problem Noted Date Resolved Date Upper GI bleed 07/19/2016 07/20/2016 Vitamin D deficiency 05/04/2009 05/04/2009 documented as of this encounter (statuses as of 07/21/2022) [facility] History of Past illness Narrative* Problem Noted Date Resolved Date Upper GI bleed 07/19/2016 07/20/2016 Vitamin D deficiency 05/04/2009 05/04/2009 documented as of this encounter (statuses as of 07/24/2022) [facility] History of Past illness Narrative* Problem Noted Date Resolved Date Upper GI bleed 07/19/2016 07/20/2016 Vitamin D deficiency 05/04/2009 05/04/2009 documented as of this encounter (statuses as of 07/24/2022) [facility] History of Past illness Narrative* Problem Noted Date Resolved Date Upper GI bleed 07/19/2016 07/20/2016 Vitamin D deficiency 05/04/2009 05/04/2009 documented as of this encounter (statuses as of 07/25/2022) [facility] History of Past illness Narrative* Problem Noted Date Resolved Date Upper GI bleed 07/19/2016 07/20/2016 Vitamin D deficiency 05/04/2009 05/04/2009 documented as of this encounter (statuses as of 07/26/2022) [facility] of Past [facility] Narrative* Problem Noted Date Resolved Date Upper GI bleed 07/19/2016 07/20/2016 Vitamin D deficiency 05/04/2009 05/04/2009 documented as of this encounter (statuses as of 08/10/2022) [facility] History of Past illness Narrative* Problem Noted Date Resolved Date Upper GI bleed 07/19/2016 07/20/2016 Vitamin D deficiency 05/04/2009 05/04/2009 documented as of this encounter (statuses as of 08/25/2022) [facility] History of Past illness Narrative* Problem Noted Date Diagnosed Date Resolved Date Upper GI bleed 07/19/2016 07/20/2016 Vitamin D deficiency 05/04/2009 010 documented as of this encounter (statuses as of 09/05/2022) [facility] History of Past illness Narrative* Problem Noted Date Diagnosed Date Resolved Date Upper GI bleed 07/19/2016 07/20/2016 Vitamin D deficiency 05/04/2009 010 documented as of this encounter (statuses as of 09/14/2022) [facility] History of Past illness Narrative* Problem Noted Date Diagnosed Date Resolved Date Upper GI bleed 07/19/2016 07/20/2016 Vitamin D deficiency 05/04/2009 010 documented as of this encounter (statuses as of 09/25/2022) [facility] History of Past illness Narrative* Problem Noted Date Diagnosed Date Resolved Date Upper GI bleed 07/19/2016 07/20/2016 Vitamin D deficiency 05/04/2009 010 documented as of this encounter (statuses as of 09/26/2022) [facility] History of Past illness Narrative* Problem Noted Date Diagnosed Date Resolved Date Upper GI bleed 07/19/2016 07/20/2016 Vitamin D deficiency 05/04/2009 010 documented as of this encounter (statuses as of 10/05/2022) [facility] History of Past illness Narrative* Problem Noted Date Diagnosed Date Resolved Date Upper GI bleed 07/19/2016 07/20/2016 Vitamin D deficiency 05/04/20092 010 documented as of this encounter (statuses as of 10/05/2022) [facility] History of Past illness Narrative* Problem Noted Date Diagnosed Date Resolved Date Upper GI bleed 07/19/2016 07/20/2016 Vitamin D deficiency 05/04/2009 010 documented as of this encounter (statuses as of 10/16/2022) [facility] History of Past illness Narrative* Problem Noted Date Diagnosed Date Resolved Date Upper GI bleed 07/19/2016 07/20/2016 Vitamin D deficiency 05/04/2009 010 documented as of this encounter (statuses as of 10/17/2022) [facility] History of Past illness Narrative* Problem Noted Date Diagnosed Date Resolved Date Upper GI bleed 07/19/2016 07/20/2016 Vitamin D deficiency 05/04/2009 010 documented as of this encounter (statuses as of 10/19/2022) [facility] of Past illness Narrative* Problem Noted Date Diagnosed Date Resolved Date Upper GI bleed 07/19/2016 07/20/2016 Vitamin D deficiency 05/04/20092 010 documented as of this encounter (statuses as of 10/19/2022) [facility] History of Past illness Narrative* Problem Noted Date Diagnosed Date Resolved Date Upper GI bleed 07/19/2016 07/20/2016 Vitamin D deficiency 05/04/2009 010 documented as of this encounter (statuses as of 10/19/2022) [facility] of Past illness Narrative* Problem Noted Date Diagnosed Date Resolved Date Upper GI bleed 07/19/2016 07/20/2016 Vitamin D deficiency 05/04/20092 010 documented as of this encounter (statuses as of 10/20/2022) [facility] History of Past illness Narrative* Problem Noted Date Diagnosed Date Resolved Date Upper GI bleed 07/19/2016 07/20/2016 Vitamin D deficiency 05/04/2009 010 documented as of this encounter (statuses as of 10/21/2022) [facility] History of Past illness Narrative* Problem Noted Date Diagnosed Date Resolved Date Upper GI bleed 07/19/2016 07/20/2016 Vitamin D deficiency 05/04/2009 010 documented as of this encounter (statuses as of 10/23/2022) [facility] History of Past illness Narrative* Problem Noted Date Diagnosed Date Resolved Date Upper GI bleed 07/19/2016 07/20/2016 Vitamin D deficiency 05/04/2009 010 documented as of this encounter (statuses as of 10/26/2022) [facility] History of Past illness Narrative* Problem Noted Date Diagnosed Date Resolved Date Upper GI bleed 07/19/2016 07/20/2016 Vitamin D deficiency 05/04/2009 010 documented as of this encounter (statuses as of 10/27/2022) [facility] History of Past illness Narrative* Problem Noted Date Diagnosed Date Resolved Date Upper GI bleed 07/19/2016 07/20/2016 Vitamin D deficiency 05/04/2009 010 documented as of this encounter (statuses as of 11/07/2022) [facility] History of Past illness Narrative* Problem Noted Date Diagnosed Date Resolved Date Upper GI bleed 07/19/2016 07/20/2016 Vitamin D deficiency 05/04/2009 010 documented as of this encounter (statuses as of 11/09/2022) [facility] History of Past illness Narrative* Problem Noted Date Diagnosed Date Resolved Date Upper GI bleed 07/19/2016 07/20/2016 Vitamin D deficiency 05/04/2009 010 documented as of this encounter (statuses as of 11/10/2022) [facility] History of Past illness Narrative* Problem Noted Date Diagnosed Date Resolved Date Upper GI bleed 07/19/2016 07/20/2016 Vitamin D deficiency 05/04/2009 010 documented as of this encounter (statuses as of 11/14/2022) [facility] History of Past illness Narrative* Problem Noted Date Diagnosed Date Resolved Date Upper GI bleed 07/19/2016 07/20/2016 Vitamin D deficiency 05/04/20092 010 documented as of this encounter (statuses as of 12/01/2022) [facility] History of Past illness Narrative* Problem Noted Date Diagnosed Date Resolved Date Upper GI bleed 07/19/2016 07/20/2016 Vitamin D deficiency 05/04/2009 010 documented as of this encounter (statuses as of 12/07/2022) [facility] History of Past illness Narrative* Problem Noted Date Diagnosed Date Resolved Date Upper GI bleed 07/19/2016 07/20/2016 Vitamin D deficiency 05/04/2009 010 documented as of this encounter (statuses as of 12/14/2022) [facility] History of Past illness Narrative* Problem Noted Date Diagnosed Date Resolved Date Upper GI bleed 07/19/2016 07/20/2016 Vitamin D deficiency 05/04/20092 010 documented as of this encounter (statuses as of 01/23/2023) [facility] History of Past illness Narrative* Problem Noted Date Diagnosed Date Resolved Date Upper GI bleed 07/19/2016 07/20/2016 Vitamin D deficiency 05/04/20092 010 documented as of this encounter (statuses as of 01/23/2023) [facility] History of Past illness Narrative* Problem Noted Date Diagnosed Date Resolved Date Upper GI bleed 07/19/2016 07/20/2016 Vitamin D deficiency 05/04/2009 010 documented as of this encounter (statuses as of 02/01/2023) [facility] Appointment Date:08/17/2021 08:30:00 AM Scheduled Provider:Raquel HERNANDEZ Location: [place] Appointment Type:[facility] Appointment Date:10/31/2021 04:00:00 PM Scheduled Provider:Lizy SORIA DO Location:[facility] Appointment Type: Open Referrals to Other Providers Referred by: Lizy SORIA DO [facility] Evaluation + Plan note Future Appointments Appointment Date:10/31/2021 04:00:00 PM Scheduled Provider:Lizy SORIA DO Location:[facility] Appointment Type: Open Diagnostic Tests Pending * T3 Free 08/17/21 Future Scheduled Tests Radiology* MRI Brain [facility]o Contrast [facility]ments Appointment Date:01/02/2022 08:50:00 AM Scheduled Provider: Location:[facility] Appointment Type:Surgery FT Future Scheduled Tests Laboratory* Fecal WBC Lactoferrin 12/29/21 * Giardia lamblia, Direct Detection EIA 12/29/21 * O & P Exam, Routine 12/29/21 * Clostridium Difficile PCR 12/29/21 * Enteric Panel by PCR 12/29/21 [facility] Evaluation + Plan note Future Appointments Appointment Date:01/02/2022 08:50:00 AM Scheduled Provider: Location:[facility] Appointment Type:Surgery FT Diagnostic Tests Pending * Enteric Panel by PCR 12/30/21 * Clostridium Difficile PCR 12/30/21 * O & P Exam, Routine 12/30/21 * Giardia lamblia, Direct Detection EIA 12/30/21 [facility] Future Appointments Appointment Date:10/16/2022 01:40:00 PM Scheduled Provider:Lizy SORIA DO Location:[facility] Appointment Type:FM Open [facility] Evaluation noteNo assessment information available [facility] Work Phone: evaluation note* Diagnosis CVID (common variable immunodeficiency) (HCC)- Primary Common variable immunodeficiency Recurrent infections Unspecified infectious and parasitic diseases Enteropathy Unspecified disorder of intestine [facility] Diagnosis Orthostatic lightheadedness- Primary Dizziness and giddiness Demyelinating disease of central nervous system (HCC) Demyelinating disease of central nervous system, unspecified Tachycardia Tachycardia, unspecified Disturbance of skin sensation Hypotension, postural Orthostatic hypotension Tension headache Blurry vision, bilateral Other specified visual disturbances Chronic fatigue Other malaise and fatigue Tremulousness Abnormal involuntary movements [facility] Diagnosis Other localized visual field defect, bilateral- Primary Blurry vision, bilateral Other specified visual disturbances Positional headache Headache [facility] Diagnosis Demyelinating disease of central nervous system (HCC) Demyelinating disease of central nervous system, unspecified documented in this encounter [facility] note* Diagnosis Demyelinating disease of central nervous system (HCC) Demyelinating disease of central nervous system, unspecified [facility] encounter [facility]* Diagnosis Disturbance of skin sensation- Primary documented in this [facility] Diagnosis Tremulousness- Primary Abnormal involuntary movements Subjective weakness Other malaise and fatigue Tachycardia Tachycardia, unspecified Subjective cognitive impairment Chronic fatigue Other malaise and fatigue Sleep walking disorder Sleep arousal disorder [facility] Diagnosis Tremulousness- Primary Abnormal involuntary movements documented in this encounter [facility] note* Diagnosis CVID (common variable immunodeficiency) (HCC)- Primary Common variable immunodeficiency Recurrent infections Unspecified infectious and parasitic diseases Enteropathy Unspecified disorder of intestine Cytopenia Unspecified diseases of blood and blood-forming organs documented in this encounter [facility] Diagnosis Iron disorder- Primary Other disorders of iron metabolism Acquired hypothyroidism Unspecified hypothyroidism documented in this [facility]* Diagnosis Bezoar, initial encounter- Primary documented in this encounter [facility]* Diagnosis Thrombocytopenia (HCC) Thrombocytopenia, unspecified Elevated LFTs Other abnormal blood chemistry Iron disorder Other disorders of iron metabolism documented in this encounter [facility] note* Diagnosis Chronic insomnia- Primary Insomnia, unspecified Malaise and fatigue Other malaise and fatigue Somnambulism Sleep arousal disorder Somniloquy Other specific disorder of sleep of nonorganic origin Sleep-related movement disorder Sleep related movement disorder, unspecified Non-rapid eye movement sleep arousal disorder, sleep walking type 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 Common variable immunodeficiency Enteropathy Unspecified disorder of intestine Cytopenia Unspecified diseases of blood and blood-forming organs Sinusitis, maxillary, chronic Chronic maxillary sinusitis documented [facility] this encounter [facility] Diagnosis Iron disorder- Primary Other disorders of iron metabolism [facility] Diagnosis NO SHOW- Primary [facility] Diagnosis Tremulousness- Primary Abnormal involuntary movements CVID (common variable immunodeficiency) (HCC)- Primary Common variable immunodeficiency Enteropathy Unspecified disorder of intestine Cytopenia Unspecified diseases of blood and blood-forming organs Recurrent infections Unspecified infectious and parasitic diseases [facility] Diagnosis Iron disorder- Primary Other disorders of iron metabolism CVID (common variable immunodeficiency) (HCC)- Primary Common variable immunodeficiency Enteropathy Unspecified disorder of intestine Cytopenia Unspecified diseases of blood and blood-forming organs Recurrent infections Unspecified infectious and parasitic diseases [facility] Diagnosis Proximal leg weakness- Primary Other musculoskeletal symptoms referable to limbs POTS (postural orthostatic tachycardia syndrome) Tachycardia, unspecified Tension headache CVID (common variable immunodeficiency) (HCC)- Primary Common variable immunodeficiency Enteropathy Unspecified disorder of intestine Cytopenia Unspecified diseases of blood and blood-forming organs Recurrent infections Unspecified infectious and parasitic diseases [facility] Diagnosis CVID (common variable immunodeficiency) (HCC)- Primary Common variable immunodeficiency Enteropathy Unspecified disorder of intestine Cytopenia Unspecified diseases of blood and blood-forming organs Recurrent infections Unspecified infectious and parasitic diseases [facility] Diagnosis Weakness generalized- Primary Other malaise and fatigue Proximal leg weakness Other musculoskeletal symptoms referable to limbs [facility] Diagnosis Gastroparesis- Primary History of colectomy Other postprocedural status Chronic idiopathic constipation Unspecified constipation [facility] Diagnosis History of colectomy Other postprocedural status Chronic idiopathic constipation Unspecified constipation [facility] Gastroparesis- Primary Dysautonomia (HCC) Unspecified disorder of autonomic nervous system [facility] Diagnosis POTS (postural orthostatic tachycardia syndrome)- Primary Tachycardia, unspecified Gastroparesis Positive MUMTAZ antibody [facility] Diagnosis Tension headache [facility] Diagnosis CVID (common variable immunodeficiency) (HCC)- Primary Common variable immunodeficiency Enteropathy Unspecified disorder of intestine Cytopenia Unspecified diseases of blood and blood-forming organs [facility] Proximal leg weakness- Primary Other musculoskeletal symptoms referable to limbs MUMTAZ (generalized anxiety disorder) Generalized anxiety disorder Orthostatic lightheadedness Dizziness and giddiness Spasm of muscle History of seizure Personal history of other disorders of nervous system and sense organs Abnormal laboratory test Other abnormal clinical finding [facility] Diagnosis Muscle weakness- Primary Muscle weakness (generalized) Proximal leg weakness Other musculoskeletal symptoms referable to limbs Spasm of muscle Abnormal laboratory test Other abnormal clinical finding [facility] Diagnosis Convulsions, unspecified convulsion type ([facility])- [facility] 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-man syndrome Incoordination of extremity Lack of coordination Gait instability Abnormality of gait Other speech disturbance Functional movement disorder Other extrapyramidal disease and abnormal movement disorder CVID (common variable immunodeficiency) ([facility])- Primary Common variable immunodeficiency Recurrent infections Unspecified infectious and parasitic diseases Other fatigue [facility] Diagnosis Functional movement disorder- Primary Other extrapyramidal disease and abnormal movement disorder Seizure-like activity (HCC) Other convulsions CVID (common variable immunodeficiency) ([facility])- Primary Common variable immunodeficiency Recurrent infections Unspecified infectious and parasitic diseases Other fatigue [facility] Diagnosis Gastroparesis- Primary CVID (common variable immunodeficiency) (HCC)- Primary Common variable immunodeficiency Recurrent infections Unspecified infectious and parasitic diseases Other fatigue [facility] Diagnosis Gastroparesis CVID (common variable immunodeficiency) (HCC)- Primary Common variable immunodeficiency Recurrent infections Unspecified infectious and parasitic diseases Other fatigue [facility]* Diagnosis CVID (common variable immunodeficiency) (HCC)- Primary Common variable immunodeficiency Recurrent infections Unspecified infectious and parasitic diseases Other fatigue 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 [facility] Diagnosis Cognitive communication deficit- Primary 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 Other speech disturbance [facility] Diagnosis 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 Incoordination of extremity Lack of coordination [facility] Diagnosis 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 Gait instability Abnormality of gait [facility] Diagnosis MDD (major depressive disorder), recurrent episode, moderate (HCC)- Primary Major depressive disorder, recurrent episode, moderate Trauma and stressor-related disorder Unspecified adjustment reaction 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 [facility] Diagnosis Orthostatic lightheadedness- Primary Dizziness and giddiness 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 Hypotension, unspecified hypotension type [facility] Diagnosis 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 [facility]* Diagnosis Gastroparesis- Primary [facility] Diagnosis Preoperative examination- Primary Preoperative examination, unspecified Gastroparesis POTS (postural orthostatic tachycardia syndrome) Tachycardia, unspecified Former smoker Personal history of tobacco use, presenting hazards to health Gastroesophageal reflux disease, unspecified whether esophagitis present Stage 2 chronic kidney disease CVID (common variable immunodeficiency) ([facility]) Common variable immunodeficiency History of colectomy Other postprocedural status Anxiety Anxiety state, unspecified Depression, unspecified depression type PTSD (post-traumatic stress disorder) Posttraumatic stress disorder [facility] Diagnosis MDD (major depressive disorder), recurrent episode, moderate (HCC)- Primary Major depressive disorder, recurrent episode, moderate Trauma and stressor-related disorder Unspecified adjustment reaction 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 [facility] Diagnosis PTSD (post-traumatic stress disorder)- Primary Posttraumatic stress disorder Generalized anxiety disorder Episodic mood disorder (HCC) Unspecified episodic mood disorder 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 [facility] Diagnosis CVID (common variable immunodeficiency) ([facility])- Primary Common variable immunodeficiency Recurrent infections Unspecified infectious and parasitic diseases Positive MUMTAZ antibody documented in this encounter [facility] general Narrative - Reported* Type Description Date Medical History common variable, immunodeficienc y, gets a monthly IG tx Medical History POTS Medical History epilepsy Medical History Total colonectomy Surgical History Total colonectomy [facility] [place] Other Hospital course Narrative No data available for this section [facility] Discharge instructions Additional Instructions Push fluids Rest Taking Zofran at home for nausea vomiting Ativan if needed for severe tremoring Please inform your nurse that comes to get your IgG infusion tomorrow that you were seen in the emergency department any new symptoms that occur. Follow with your doctor call tomorrow for appointment. Letter noted to have a prolactin level that is pending for you Follow-up Return here if any problems persist or worsen including chest pain, shortness of breath, loss of bowel bladder control, numbness, tingling or any [facility] Phone: Hospital Discharge instructions No data available for this section [facility] No data available for this section [facility]Reason for referral (narrative)* Outpatient Procedure (Routine) - Authorized Specialty Diagnoses / Procedures Referred By Gabino iniguez Referred To Contact [facility] Diagnoses Proximal leg weakness Procedures EMG(NEURO/NI) NERVE CONDUCTION STUDIES 9-10 STUDIES Saroj Foss APRN.CNP [address] [place] [address] [facility] [place] [address] [place] [address] Referral ID Status Reason Start Date Expiration Date Visits Requested Visits Authorized [id number] Authorized Auto-Generat ed Referral 03/10/2022 02/18/2023 1 1 [facility] for referral (narrative)* Outpatient Procedure (Routine) - Pending Review Specialty Diagnoses / Procedures Referred By Gabino iniguez Referred To Contact [facility] Diagnoses History of colectomy Chronic idiopathic constipation Procedures ADULT [place] ANORECTAL MANOMETRY ANORECTAL MANOMETRY Frederic Douglass DO [facility] [address] [place] [address] [facility] [place] [address] [place] [address] Referral ID Status Reason Start Date Expiration Date Visits Requested Visits Authorized [id number] Pending Review Auto-Generat ed Referral 04/13/2022 04/13/2023 1 1 * Diagnostic Procedure Only (Routine) - Closed Specialty Diagnoses / Procedures Referred By Contac t Referred To Contact XR IMAGING Diagnoses History of colectomy Chronic idiopathic constipation Procedures XR ABDOMEN 1V SUPINE RADIOLOGIC EXAM ABDOMEN 1 VIEW Frederic Douglass DO [address] [place] [id number] Xr Imaging Referral ID Status Reason Start Date Expiration Date V isits Requested Visits Authorized [id number] Closed Auto-Generate d Referral 04/13/2022 05/13/2023 1 1 * Outpatient Procedure (Routine) - Pending Review Specialty Diagnoses / Procedures Referred By Contac t Referred To Contact [facility] Diagnoses Gastroparesis Procedures CAPSULE ENDOSCOPY SMART Frederic Douglass DO [address] [place] [address] [facility] [place] [address] [place] [address] Referral ID Status Reason Start Date Expiration Date Visits Requested Visits Authorized [id number] Pending Review Auto-Generat ed Referral 04/13/2022 04/13/2023 1 1 [facility] for referral (narrative)* Diagnostic Procedure Only (Routine) - Closed Specialty Diagnoses / Procedures Referred By Contac t Referred To Contact XR IMAGING Diagnoses History of colectomy Chronic idiopathic constipation Procedures XR ABDOMEN 1V SUPINE RADIOLOGIC EXAM ABDOMEN 1 VIEW Frederic Douglass DO [address] [place] [address] Xr Imaging Referral ID Status Reason Start Date Expiration Date V isits Requested Visits Authorized [id number] Closed Auto-Generate d Referral 04/13/2022 05/13/2023 1 1 [facility] for referral (narrative)* Outpatient Procedure (Routine) - Authorized Specialty Diagnoses / Procedures Referred By Gabino t Referred To Contact [facility] Diagnoses Muscle weakness Procedures EMG(NEURO/NI) NERVE CONDUCTION STUDIES 9-10 STUDIES Kim Rogers MD [facility] [place] [phone] [place] [address] Referral ID Status Reason Start Date Expiration Date Visits Requested Visits Authorized [id number] Authorized Auto-Generat ed Referral 07/03/2022 02/18/2023 1 1 [facility] for referral (narrative)* Outpatient Procedure (Routine) - Waiting for Online Response Specialty Diagnoses / Procedures Referred By Gabino t Referred To Contact [facility] Diagnoses Gastroparesis Procedures EGD - THERAPEUTIC, EUS, OR TUBE INTERVENTIONS ESOPHAGOGASTRODUODENOSC OPY TRANSORAL DIAGNOSTIC STOMACH SURGERY PROCEDURE [place] [address] [facility] Disease [address] [address] Referral ID Status Reason Start Date Expiration Date Visits Requested Visits Authorized [id number] Waiting for Online Response Patient Cleared - Admin/Chair man/Directo r advise to proceed or did not respond 11/16/2022 11/17/2023 1 1 T [facility] for visit Narrative* Diagnostic Procedure Only (Routine) - Closed Specialty Diagnoses / Procedures Referred By Gabino t Referred To Contact XR IMAGING Diagnoses History of colectomy Chronic idiopathic constipation Procedures XR ABDOMEN 1V SUPINE RADIOLOGIC EXAM ABDOMEN 1 VIEW Frederic Douglass DO [facility] [address] [place] [address] Xr Imaging Referral ID Status Reason Start Date Expiration Date V isits Requested Visits Authorized [id number] Closed Auto-Generate d Referral 04/13/2022 05/13/2023 1 1 [facility] for visit Narrative* Outpatient Procedure (Routine) - Closed Specialty Diagnoses / Procedures Referred By Gabino t Referred To Contact [facility] Diagnoses Gastroparesis Procedures CAPSULE ENDOSCOPY SMART GI TRANSIT & PRES ABIMAEL WIRELESS CAPSULE W/INTERP Frederic Douglass, DO [facility] [address] [place] [address] [address] Referral ID Status Reason Start Date Expiration Date V isits Requested Visits Authorized [id number] Closed Auto-Generate d Referral 04/13/2022 02/18/2023 1 1 [facility] for visit Narrative* Outpatient Procedure (Routine) - Waiting for Online Response Specialty Diagnoses / Procedures Referred By Gabino iniguez Referred To Contact [facility] Diagnoses Gastroparesis Procedures EGD - THERAPEUTIC, EUS, OR TUBE INTERVENTIONS ESOPHAGOGASTRODUODENOSC OPY TRANSORAL DIAGNOSTIC STOMACH SURGERY PROCEDURE [place] [address] [place] [address] Referral ID Status Reason Start Date Expiration Date Visits Requested Visits Authorized [id number] Waiting for Online Response Patient Cleared - Admin/Chair man/Directo r advise to proceed or did not respond 11/16/2022 11/17/2023 1 1 [facility] Advance Directives No Advanced Directives Records FoundDocuments on File Type Date Recorded 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 Advance Directive(s) Advance Directive(s) 07/19/2016 8:34 PM Advance Directive(s) 07/19/2016 7:10 PM Advance Directive(s) 06/29/2015 10:55 AM Advance Directive(s) 05/23/2015 1:35 PM Advance Directive(s) 03/18/2015 8:14 PM Advance Directive Response Recorded Date/ Time Advance Directives No June 01, 2 018 3:40pm Documents on File Type Date Recorded 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 Advance Directive(s) Advance Directive(s) 07/19/2016 8:34 PM Advance Directive(s) 07/19/2016 7:10 PM Advance Directive(s) 06/29/2015 10:55 AM Advance Directive(s) 05/23/2015 1:35 PM Advance Directive(s) 03/18/2015 8:14 PM Documents on File Type Date Recorded 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 Advance Directive(s) 03/18/2015 8:14 PM Documents on File Type Date Recorded 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 Advance Directive(s) 03/18/2015 8:14 PM Latest Code Status on File Code Status Date Activated Date Inactivated Comments Full Code 01/27/2022 3:33 AM Full Code Order Discussed With: Patient Latest Code Status on File Code Status Date Activated Date Inactivated Comments Full Code 01/27/2022 3:33 AM 01/31/2022 9:49 PM Latest Code Status on File Code Status Date Activated Date Inactivated Comments Full Code 01/27/2022 3:33 AM 01/31/2022 9:49 PM Latest Code Status on File Code Status Date Activated Date Inactivated Comments Full Code 01/27/2022 3:33 AM 01/31/2022 9:49 PM Question Answer Comments Full Code Order Discussed With: Patient Latest Code Status on File Code Status Date Activated Date Inactivated Comments Full Code 01/27/2022 3:33 AM 01/31/2022 9:49 PM Question Answer Comments Full Code Order Discussed With: Patient Latest Code Status on File Code Status Date Activated Date Inactivated Comments Full Code 01/27/2022 3:33 AM 01/31/2022 9:49 PM Question Answer Comments Full Code Order Discussed With: Patient Reason for Referral Specialty Diagnoses / Procedures Referred By Gabino t Referred To Contact MR IMAGING Diagnoses Demyelinating disease of central nervous system (HCC) Procedures MRI CERVICAL SPINE WO/W IVCON MRI SPINAL CANAL CERVICAL W/O & W/CONTR Saroj Erickson, 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 [address] [place] [address] Mr Imaging Referral ID Status Reason Start Date Expiration Date Visits Requested Visits Authorized [id number] Additional Clinical Info Needed Auto-Generat ed Referral 09/20/2021 10/20/2022 1 1 Specialty Diagnoses / Procedures Referred By Contac t Referred To Contact MR IMAGING Diagnoses Demyelinating disease of central nervous system (HCC) Procedures MRI BRAIN WO/W IVCON MRI BRAIN BRAIN STEM W/O W/CONTRAST MATERIAL Saroj Foss APRN.MANAGER TRADING [address] [place] [address] Mr Imaging Referral ID Status Reason Start Date Expiration Date Visits Requested Visits Authorized [id number] Additional Clinical Info Needed Auto-Generat ed Referral 09/20/2021 10/20/2022 1 1 Specialty Diagnoses / Procedures Referred By Contac t Referred To Contact Ophthalmology Diagnoses Tension headache Blurry vision, bilateral Procedures CONSULT TO OPHTHALMOLOGY OFFICE/OUTPATIENT [facility] 60-74 MINUTES Saroj Foss APRN.MANAGER TRADING [address] [place] [phone] Referral ID Status Reason Start Date Expiration Date Visits Requested Visits Authorized [id number] Authorized PCP Requested Referral 09/20/2021 09/20/2022 1 1 Referral ID Status Reason Start Date Expiration Date V isits Requested Visits Authorized [id number] Closed Auto-Generate d Referral 09/20/2021 11/21/2021 1 1 Referral ID Status Reason Start Date Expiration Date V isits Requested Visits Authorized [id number] Closed Auto-Generate d Referral 09/20/2021 12/03/2021 1 1 Specialty Diagnoses / Procedures Referred By Contac t Referred To Contact Neurology Diagnoses Tremulousness Procedures CONSULT TO NEUROLOGY OFFICE/OUTPATIENT [facility] 60-74 MINUTES Saroj Foss APRN.MANAGER TRADING [address] [place] [address] Referral ID Status Reason Start Date Expiration Date Visits Requested Visits Authorized [id number] Authorized PCP Requested Referral 11/23/2021 11/23/2022 1 1 Specialty Diagnoses / Procedures Referred By Contac t Referred To Contact Neurology Diagnoses Chronic fatigue Sleep walking disorder Procedures CONSULT TO NEUROLOGY OFFICE/OUTPATIENT [facility] 60-74 MINUTES Saroj Foss APRN.MANAGER TRADING [address] [place] [id number] Referral ID Status Reason Start Date Expiration Date Visits Requested Visits Authorized [id number] Authorized PCP Requested Referral 11/23/2021 11/23/2022 1 1 Specialty Diagnoses / Procedures Referred By Contac t Referred To Contact Diagnoses Tremulousness Procedures PROVIDER ORDERED FOLLOW UP OFFICE/OUTPATIENT [facility] 60-74 MINUTES Chito Noyola MD [address] [place] [address] Referral ID Status Reason Start Date Expiration Date Visits Requested Visits Authorized [id number] Authorized PCP Requested Referral 2 02/27/2022 1 1 Specialty Diagnoses / Procedures Referred By Contac t Referred To Contact Diagnoses CVID (common variable immunodeficiency) (HCC) Procedures CONSULT TO HEMATOLOGY/ONCOLOGY OFFICE/OUTPATIENT [facility] 60-74 MINUTES Arsh Kiser MD, PhD [address] [place] [address] Referral ID Status Reason Start Date Expiration Date Visits Requested Visits Authorized [id number] Authorized PCP Requested Referral 2 01/17/2023 1 1 Specialty Diagnoses / Procedures Referred By Contac t Referred To Contact Gastroenterology Diagnoses Bezoar, initial encounter Procedures CONSULT TO GASTROENTEROLOGY OFFICE/OUTPATIENT [facility] 60-[place] [address] [place] [address] Referral ID Status Reason Start Date Expiration Date Visits Requested Visits Authorized [id number] Authorized PCP Requested Referral 01/24/2022 01/24/2023 1 1 Specialty Diagnoses / Procedures Referred By Contac t Referred To Contact Diagnoses Tremulousness Procedures PROVIDER ORDERED FOLLOW UP OFFICE/OUTPATIENT [facility] 60-74 MINUTES Chito Noyola MD [address] [place] [address] Referral ID Status Reason Start Date Expiration Date Visits Requested Visits Authorized [id number] Authorized PCP Requested Referral 03/07/2022 06/05/2022 1 1 Specialty Diagnoses / Procedures Referred By Contac t Referred To Contact Neurology Diagnoses Proximal leg weakness Spasm of muscle Abnormal laboratory test Procedures CONSULT TO NEUROLOGY OFFICE/OUTPATIENT [facility] 60-74 MINUTES Saroj Foss, 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 [address] [place] [address] Referral ID Status Reason Start Date Expiration Date Visits Requested Visits Authorized [id number] Authorized PCP Requested Referral 06/27/2022 06/27/2023 1 1 Specialty Diagnoses / Procedures Referred By Contac t Referred To Contact Neurology Diagnoses History of seizure Procedures CONSULT TO NEUROLOGY OFFICE/OUTPATIENT [facility] 60-74 MINUTES Saroj Foss, 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 [address] [place], [place] [phone] Referral ID Status Reason Start Date Expiration Date Visits Requested Visits Authorized [id number] Authorized PCP Requested Referral 06/27/2022 06/27/2023 1 1 Specialty Diagnoses / Procedures Referred By Contac t Referred To Contact [facility] Diagnoses History of seizure Procedures EPIL EEG LONG EEG EXTENDED MONITORING 61-119 MINUTES ELECTROENCEPHALOGRAM REC COMA/SLEEP ONLY Saroj Foss, 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 [address] [place] [address] [facility] [place] [address] [place] [address] Referral ID Status Reason Start Date Expiration Date Visits Requested Visits Authorized [id number] Authorized Auto-Generat ed Referral 06/27/2022 06/28/2023 1 1 Specialty Diagnoses / Procedures Referred By Contac t Referred To Contact Diagnoses Stiffman syndrome Procedures CONSULT TO [facility] OFFICE/OUTPATIENT [facility] 60-74 MINUTES Vesta Mares, 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 [address] [place], [place] [id number] Referral ID Status Reason Start Date Expiration Date Visits Requested Visits Authorized [id number] Authorized PCP Requested Referral 07/16/2022 07/16/2023 1 1 Specialty Diagnoses / Procedures Referred By Contac t Referred To Contact Psychology Diagnoses Functional neurological symptom disorder with weakness or paralysis Procedures CONSULT TO PSYCHOLOGY OFFICE/OUTPATIENT [facility] 60-74 MINUTES Bebeto Perry MD [address] [place] [address] Referral ID Status Reason Start Date Expiration Date Visits Requested Visits Authorized [id number] Pending Review PCP Requested Referral 08/10/2022 08/10/2023 1 1 Specialty Diagnoses / Procedures Referred By Contac t Referred To Contact Diagnoses Functional neurological symptom disorder with weakness or paralysis Procedures CONSULT TO FUNCTIONAL MOVEMENT DISORDERS (FMD) OFFICE/OUTPATIENT [facility] 60-74 MINUTES Bebeto Perry MD [address] [place] [address] Referral ID Status Reason Start Date Expiration Date Visits Requested Visits Authorized [id number] Authorized PCP Requested Referral 08/10/2022 08/10/2023 1 1 Specialty Diagnoses / Procedures Referred By Contac t Referred To Contact [facility] Diagnoses Functional neurological symptom disorder with weakness or paralysis Other speech disturbance Procedures CONSULT TO SPEECH THERAPY OFFICE/OUTPATIENT [facility] 60-74 MINUTES Bebeto Perry MD [address] [place] [address] [facility] [place] [address] Referral ID Status Reason Start Date Expiration Date Visits Requested Visits Authorized [id number] Pending Review Auto-Generat ed Referral 08/10/2022 08/10/2023 1 1 Specialty Diagnoses / Procedures Referred By Contac t Referred To Contact Physical Therapy Diagnoses Functional neurological symptom disorder with weakness or paralysis Gait instability Procedures CONSULT TO PHYSICAL THERAPY Bebeto Perry MD [address] [place] [address] Referral ID Status Reason Start Date Expiration Date V isits Requested Visits Authorized [id number] Pending Review 08/10/2022 2022 1 1 Specialty Diagnoses / Procedures Referred By Contac t Referred To Contact Occupational Therapy Diagnoses Functional neurological symptom disorder with weakness or paralysis Incoordination of extremity Procedures CONSULT [place] [address] [place], [place] [id number] Referral ID Status Reason Start Date Expiration Date V isits Requested Visits Authorized [id number] Pending Review 08/10/2022 2022 1 1 Specialty Diagnoses / Procedures Referred By Contac t Referred To Contact [facility] Diagnoses Cognitive communication disorder Procedures SPEECH REHAB FOLLOW UP ORDER TX SPEECH LANG VOICE COMMJ &/AUDITORY PROC IND Speech [place] [address] [place] [address] [facility] [place] [address] [place] [address] Referral ID Status Reason Start Date Expiration Date Visits Requested Visits Authorized [id number] Pending Review PCP Requested Referral Auto-Generate d Referral 10/19/2022 01/17/2023 1 1 Specialty Diagnoses / Procedures Referred By Contac t Referred To Contact Diagnoses Functional neurological symptom disorder with weakness or paralysis Procedures PROVIDER ORDERED FOLLOW UP OFFICE/OUTPATIENT [facility] 60-74 MINUTES Muna Lackey MD [address] [place] [address] Referral ID Status Reason Start Date Expiration Date Visits Requested Visits Authorized [id number] Authorized PCP Requested Referral 10/18/2023 1 1 Chief Complaint and Reason for Visit Chief Complaint DIFF WALKING Summary Purpose Family History No Family History Records FoundNo Family History Records FoundNo Family History Records FoundNo Family History Records FoundNo Family History Records FoundNo Family History Records FoundNo Family History Records FoundNo Family History Records FoundNo Family History Records FoundNo Family History Records Found Medications Administered Section Active Administered Medications - up to 3 most recent administrations Medication Order MAR Action Action Date Dose Rate Site fluorescein-benoxinate 0.25-0.4 % 1 Drop (FLURESS) 1 Drop, BOTH EYES, DIRECTED, Starting on Sun10/03/21 at 0800, Until Sun10/03/21 at 1958, Administer for applanation tonometry. In the event of a Fluress shortage, administer 1 drop of Laura-Fluor into both eyes as directed for applanation tonometry. Given 10/03/2021 8:01 AM EDT 1 Drop tropicamide 1 % 1 Drop (MYDRIACYL) 1 Drop, BOTH EYES, DIRECTED, Starting on Sun10/03/21 at 0800, Until Sun10/03/21 at 1958, Administer for dilation Given 10/03/2021 8:24 AM EDT 1 Drop Inactive Administered Medications - up to 3 most recent administrations Medication Order MAR Action Action Date Dose Rate Site acetaminophen 1,000 mg CUP (TYLENOL) 1,000 mg, ORAL, ONCE, 1 dose, On Sun12/06/22 at 1200, If ordered PRN for pain, patient/guardian may elect to receive this medication for higher pain levels INSTEAD of the opioid, if preferred: Yes Given 12/06/2022 12:25 PM EDT 1,000 mg aluminum-magnesium hydroxide-simethicone 200-200-20 mg/5 mL 30 mL 30 mL, ORAL, ONCE, 1 dose, On Sun12/06/22 at 1200, SHAKE WELL Given 12/06/2022 12:25 PM EDT 30 mL ciprofloxacin iv piggyback 400 mg in D5W 200 mL (CIPRO) 400 mg, INTRAVENOUS, at 200 mL/hr, Administer over 60 Minutes, PRE-OP ONCE, 1 dose, On Sun12/06/22 at 0900, Antimicrobial indication: Prophylaxis, Preprocedure New Bag/Syringe/Bottle 12/06/2022 8:52 AM EDT 400 mg 200 mL/hr lactated ringers iv infusion 30 mL/hr, INTRAVENOUS, CONTINUOUS, Starting on Sun12/06/22 at 0900, Until Sun12/06/22 at 1006, Preprocedure New Bag/Syringe/Bottle 12/06/2022 8:51 AM EDT 30 mL/hr 30 mL/hr methylene blue 50 mg injection 50 mg, INTRAVENOUS, DIRECTED, Starting on Sun12/06/22 at 1030, Until Sun12/06/22 at 1429, 50m ml mixed with 500 ml NaCl Used intraprocedure submucosal injection per Dr Rubi, Intraprocedure Given 12/06/2022 10:30 AM EDT 50 mg pantoprazole 40 mg injection (PROTONIX) 40 mg, INTRAVENOUS, ONCE, 1 dose, On Sun12/06/22 at 1200, Reconstitute EACH 40 mg vial with 10 mL of NS. Administer IVP over 2-3 minutes. Protect vial from light. Given 12/06/2022 12:25 PM EDT 40 mg Health Concerns Infection Onset Date Last Indicated Resolved Time COVID-19 Rule-Out 01/26/2022 01/26/2022 01/26/2022 8:17 PM EST Additional Source Comments Source Comments (unrecognize d section and content) In the event this informatio n is protected by the Federal Confidentiality of Alcohol and Drug Abuse Patient Records regulations: The Federal rules restrict any use of the information to criminally investigate or prosecute any alcohol or drug abuse patient.[facility] this information is protected by the Federal Confidentiality of Alcohol and Drug Abuse Patient Records regulations: The Federal rules restrict any use of the information to criminally investigate or prosecute any alcohol or drug abuse patient.[facility] the event this information is protected by the Federal Confidentiality of Alcohol and Drug Abuse Patient Records regulations: The Federal rules restrict any use of the information to criminally investigate or prosecute any alcohol or drug abuse patient.[facility] the event this information is protected by the Federal Confidentiality of Alcohol and Drug Abuse Patient Records regulations: The Federal rules restrict any use of the information to criminally investigate or prosecute any alcohol or drug abuse patient.[facility] the event this information is protected by the Federal Confidentiality of Alcohol and Drug Abuse Patient Records regulations: The Federal rules restrict any use of the information to criminally investigate or prosecute any alcohol or drug abuse patient.[facility] the event this information is protected by the Federal Confidentiality of Alcohol and Drug Abuse Patient Records regulations: The Federal rules restrict any use of the information to criminally investigate or prosecute any alcohol or drug abuse patient.[facility] the event this information is protected by the Federal Confidentiality of Alcohol and Drug Abuse Patient Records regulations: The Federal rules restrict any use of the information to criminally investigate or prosecute any alcohol or drug abuse patient.[facility] Hospital[facility] the event this information is protected by the Federal Confidentiality of Alcohol and Drug Abuse Patient Records regulations: The Federal rules restrict any use of the information to criminally investigate or prosecute any alcohol or drug abuse patient.[facility] HospitalIn the event this information is protected by the Federal Confidentiality of Alcohol and Drug Abuse Patient Records regulations: The Federal rules restrict any use of the information to criminally investigate or prosecute any alcohol or drug abuse patient.[facility] HospitalIn the event this information is protected by the Federal Confidentiality of Alcohol and Drug Abuse Patient Records regulations: The Federal rules restrict any use of the information to criminally investigate or prosecute any alcohol or drug abuse patient.[facility] HospitalIn the event this information is protected by the Federal Confidentiality of Alcohol and Drug Abuse Patient Records regulations: The Federal rules restrict any use of the information to criminally investigate or prosecute any alcohol or drug abuse patient.[facility] HospitalIn the event this information is protected by the Federal Confidentiality of Alcohol and Drug Abuse Patient Records regulations: The Federal rules restrict any use of the information to criminally investigate or prosecute any alcohol or drug abuse patient.[facility] HospitalIn the event this information is protected by the Federal Confidentiality of Alcohol and Drug Abuse Patient Records regulations: The Federal rules restrict any use of the information to criminally investigate or prosecute any alcohol or drug abuse patient.[facility] HospitalIn the event this information is protected by the Federal Confidentiality of Alcohol and Drug Abuse Patient Records regulations: The Federal rules restrict any use of the information to criminally investigate or prosecute any alcohol or drug abuse patient.[facility] HospitalIn the event this information is protected by the Federal Confidentiality of Alcohol and Drug Abuse Patient Records regulations: The Federal rules restrict any use of the information to criminally investigate or prosecute any alcohol or drug abuse patient.[facility] HospitalIn the event this information is protected by the Federal Confidentiality of Alcohol and Drug Abuse Patient Records regulations: The Federal rules restrict any use of the information to criminally investigate or prosecute any alcohol or drug abuse patient.[facility] HospitalIn the event this information is protected by the Federal Confidentiality of Alcohol and Drug Abuse Patient Records regulations: The Federal rules restrict any use of the information to criminally investigate or prosecute any alcohol or drug abuse patient.[facility] HospitalIn the event this information is protected by the Federal Confidentiality of Alcohol and Drug Abuse Patient Records regulations: The Federal rules restrict any use of the information to criminally investigate or prosecute any alcohol or drug abuse patient.[facility] HospitalIn the event this information is protected by the Federal Confidentiality of Alcohol and Drug Abuse Patient Records regulations: The Federal rules restrict any use of the information to criminally investigate or prosecute any alcohol or drug abuse patient.[facility] HospitalIn the event this information is protected by the Federal Confidentiality of Alcohol and Drug Abuse Patient Records regulations: The Federal rules restrict any use of the information to criminally investigate or prosecute any alcohol or drug abuse patient.[facility] HospitalIn the event this information is protected by the Federal Confidentiality of Alcohol and Drug Abuse Patient Records regulations: The Federal rules restrict any use of the information to criminally investigate or prosecute any alcohol or drug abuse patient.[facility] HospitalIn the event this information is protected by the Federal Confidentiality of Alcohol and Drug Abuse Patient Records regulations: The Federal rules restrict any use of the information to criminally investigate or prosecute any alcohol or drug abuse patient.[facility] HospitalIn the event this information is protected by the Federal Confidentiality of Alcohol and Drug Abuse Patient Records regulations: The Federal rules restrict any use of the information to criminally investigate or prosecute any alcohol or drug abuse patient.[facility] HospitalIn the event this information is protected by the Federal Confidentiality of Alcohol and Drug Abuse Patient Records regulations: The Federal rules restrict any use of the information to criminally investigate or prosecute any alcohol or drug abuse patient.[facility] HospitalIn the event this information is protected by the Federal Confidentiality of Alcohol and Drug Abuse Patient Records regulations: The Federal rules restrict any use of the information to criminally investigate or prosecute any alcohol or drug abuse patient.[facility] HospitalIn the event this information is protected by the Federal Confidentiality of Alcohol and Drug Abuse Patient Records regulations: The Federal rules restrict any use of the information to criminally investigate or prosecute any alcohol or drug abuse patient.[facility] HospitalIn the event this information is protected by the Federal Confidentiality of Alcohol and Drug Abuse Patient Records regulations: The Federal rules restrict any use of the information to criminally investigate or prosecute any alcohol or drug abuse patient.[facility] HospitalIn the event this information is protected by the Federal Confidentiality of Alcohol and Drug Abuse Patient Records regulations: The Federal rules restrict any use of the information to criminally investigate or prosecute any alcohol or drug abuse patient.[facility] HospitalIn the event this information is protected by the Federal Confidentiality of Alcohol and Drug Abuse Patient Records regulations: The Federal rules restrict any use of the information to criminally investigate or prosecute any alcohol or drug abuse patient.[facility] HospitalIn the event this information is protected by the Federal Confidentiality of Alcohol and Drug Abuse Patient Records regulations: The Federal rules restrict any use of the information to criminally investigate or prosecute any alcohol or drug abuse patient.[facility] HospitalIn the event this information is protected by the Federal Confidentiality of Alcohol and Drug Abuse Patient Records regulations: The Federal rules restrict any use of the information to criminally investigate or prosecute any alcohol or drug abuse patient.[facility] HospitalIn the event this information is protected by the Federal Confidentiality of Alcohol and Drug Abuse Patient Records regulations: The Federal rules restrict any use of the information to criminally investigate or prosecute any alcohol or drug abuse patient.[facility] HospitalIn the event this information is protected by the Federal Confidentiality of Alcohol and Drug Abuse Patient Records regulations: The Federal rules restrict any use of the information to criminally investigate or prosecute any alcohol or drug abuse patient.[facility] HospitalIn the event this information is protected by the Federal Confidentiality of Alcohol and Drug Abuse Patient Records regulations: The Federal rules restrict any use of the information to criminally investigate or prosecute any alcohol or drug abuse patient.[facility] HospitalIn the event this information is protected by the Federal Confidentiality of Alcohol and Drug Abuse Patient Records regulations: The Federal rules restrict any use of the information to criminally investigate or prosecute any alcohol or drug abuse patient.[facility] HospitalIn the event this information is protected by the Federal Confidentiality of Alcohol and Drug Abuse Patient Records regulations: The Federal rules restrict any use of the information to criminally investigate or prosecute any alcohol or drug abuse patient.[facility] HospitalIn the event this information is protected by the Federal Confidentiality of Alcohol and Drug Abuse Patient Records regulations: The Federal rules restrict any use of the information to criminally investigate or prosecute any alcohol or drug abuse patient.[facility] HospitalIn the event this information is protected by the Federal Confidentiality of Alcohol and Drug Abuse Patient Records regulations: The Federal rules restrict any use of the information to criminally investigate or prosecute any alcohol or drug abuse patient.[facility] HospitalIn the event this information is protected by the Federal Confidentiality of Alcohol and Drug Abuse Patient Records regulations: The Federal rules restrict any use of the information to criminally investigate or prosecute any alcohol or drug abuse patient.[facility] HospitalIn the event this information is protected by the Federal Confidentiality of Alcohol and Drug Abuse Patient Records regulations: The Federal rules restrict any use of the information to criminally investigate or prosecute any alcohol or drug abuse patient.[facility] HospitalIn the event this information is protected by the Federal Confidentiality of Alcohol and Drug Abuse Patient Records regulations: The Federal rules restrict any use of the information to criminally investigate or prosecute any alcohol or drug abuse patient.[facility] HospitalIn the event this information is protected by the Federal Confidentiality of Alcohol and Drug Abuse Patient Records regulations: The Federal rules restrict any use of the information to criminally investigate or prosecute any alcohol or drug abuse patient.[facility] HospitalIn the event this information is protected by the Federal Confidentiality of Alcohol and Drug Abuse Patient Records regulations: The Federal rules restrict any use of the information to criminally investigate or prosecute any alcohol or drug abuse patient.[facility] HospitalIn the event this information is protected by the Federal Confidentiality of Alcohol and Drug Abuse Patient Records regulations: The Federal rules restrict any use of the information to criminally investigate or prosecute any alcohol or drug abuse patient.[facility] HospitalIn the event this information is protected by the Federal Confidentiality of Alcohol and Drug Abuse Patient Records regulations: The Federal rules restrict any use of the information to criminally investigate or prosecute any alcohol or drug abuse patient.[facility] HospitalIn the event this information is protected by the Federal Confidentiality of Alcohol and Drug Abuse Patient Records regulations: The Federal rules restrict any use of the information to criminally investigate or prosecute any alcohol or drug abuse patient.[facility] HospitalIn the event this information is protected by the Federal Confidentiality of Alcohol and Drug Abuse Patient Records regulations: The Federal rules restrict any use of the information to criminally investigate or prosecute any alcohol or drug abuse patient.[facility] HospitalIn the event this information is protected by the Federal Confidentiality of Alcohol and Drug Abuse Patient Records regulations: The Federal rules restrict any use of the information to criminally investigate or prosecute any alcohol or drug abuse patient.[facility] HospitalIn the event this information is protected by the Federal Confidentiality of Alcohol and Drug Abuse Patient Records regulations: The Federal rules restrict any use of the information to criminally investigate or prosecute any alcohol or drug abuse patient.[facility] HospitalIn the event this information is protected by the Federal Confidentiality of Alcohol and Drug Abuse Patient Records regulations: The Federal rules restrict any use of the information to criminally investigate or prosecute any alcohol or drug abuse patient.[facility] HospitalIn the event this information is protected by the Federal Confidentiality of Alcohol and Drug Abuse Patient Records regulations: The Federal rules restrict any use of the information to criminally investigate or prosecute any alcohol or drug abuse patient.[facility] HospitalIn the event this information is protected by the Federal Confidentiality of Alcohol and Drug Abuse Patient Records regulations: The Federal rules restrict any use of the information to criminally investigate or prosecute any alcohol or drug abuse patient.[facility] HospitalIn the event this information is protected by the Federal Confidentiality of Alcohol and Drug Abuse Patient Records regulations: The Federal rules restrict any use of the information to criminally investigate or prosecute any alcohol or drug abuse patient.[facility] HospitalIn the event this information is protected by the Federal Confidentiality of Alcohol and Drug Abuse Patient Records regulations: The Federal rules restrict any use of the information to criminally investigate or prosecute any alcohol or drug abuse patient.[facility] HospitalIn the event this information is protected by the Federal Confidentiality of Alcohol and Drug Abuse Patient Records regulations: The Federal rules restrict any use of the information to criminally investigate or prosecute any alcohol or drug abuse patient.[facility] HospitalIn the event this information is protected by the Federal Confidentiality of Alcohol and Drug Abuse Patient Records regulations: The Federal rules restrict any use of the information to criminally investigate or prosecute any alcohol or drug abuse patient.[facility] HospitalIn the event this information is protected by the Federal Confidentiality of Alcohol and Drug Abuse Patient Records regulations: The Federal rules restrict any use of the information to criminally investigate or prosecute any alcohol or drug abuse patient.[facility] HospitalIn the event this information is protected by the Federal Confidentiality of Alcohol and Drug Abuse Patient Records regulations: The Federal rules restrict any use of the information to criminally investigate or prosecute any alcohol or drug abuse patient.[facility] HospitalIn the event this information is protected by the Federal Confidentiality of Alcohol and Drug Abuse Patient Records regulations: The Federal rules restrict any use of the information to criminally investigate or prosecute any alcohol or drug abuse patient.[facility] HospitalIn the event this information is protected by the Federal Confidentiality of Alcohol and Drug Abuse Patient Records regulations: The Federal rules restrict any use of the information to criminally investigate or prosecute any alcohol or drug abuse patient.[facility] HospitalIn the event this information is protected by the Federal Confidentiality of Alcohol and Drug Abuse Patient Records regulations: The Federal rules restrict any use of the information to criminally investigate or prosecute any alcohol or drug abuse patient.[facility] HospitalIn the event this information is protected by the Federal Confidentiality of Alcohol and Drug Abuse Patient Records regulations: The Federal rules restrict any use of the information to criminally investigate or prosecute any alcohol or drug abuse patient.[facility] HospitalIn the event this information is protected by the Federal Confidentiality of Alcohol and Drug Abuse Patient Records regulations: The Federal rules restrict any use of the information to criminally investigate or prosecute any alcohol or drug abuse patient.[facility] HospitalIn the event this information is protected by the Federal Confidentiality of Alcohol and Drug Abuse Patient Records regulations: The Federal rules restrict any use of the information to criminally investigate or prosecute any alcohol or drug abuse patient.[facility] HospitalIn the event this information is protected by the Federal Confidentiality of Alcohol and Drug Abuse Patient Records regulations: The Federal rules restrict any use of the information to criminally investigate or prosecute any alcohol or drug abuse patient.[facility] HospitalIn the event this information is protected by the Federal Confidentiality of Alcohol and Drug Abuse Patient Records regulations: The Federal rules restrict any use of the information to criminally investigate or prosecute any alcohol or drug abuse patient.[facility] HospitalIn the event this information is protected by the Federal Confidentiality of Alcohol and Drug Abuse Patient Records regulations: The Federal rules restrict any use of the information to criminally investigate or prosecute any alcohol or drug abuse patient.[facility] HospitalIn the event this information is protected by the Federal Confidentiality of Alcohol and Drug Abuse Patient Records regulations: The Federal rules restrict any use of the information to criminally investigate or prosecute any alcohol or drug abuse patient.[facility] HospitalIn the event this information is protected by the Federal Confidentiality of Alcohol and Drug Abuse Patient Records regulations: The Federal rules restrict any use of the information to criminally investigate or prosecute any alcohol or drug abuse patient.[facility] HospitalIn the event this information is protected by the Federal Confidentiality of Alcohol and Drug Abuse Patient Records regulations: The Federal rules restrict any use of the information to criminally investigate or prosecute any alcohol or drug abuse patient.[facility] HospitalIn the event this information is protected by the Federal Confidentiality of Alcohol and Drug Abuse Patient Records regulations: The Federal rules restrict any use of the information to criminally investigate or prosecute any alcohol or drug abuse patient.[facility] HospitalIn the event this information is protected by the Federal Confidentiality of Alcohol and Drug Abuse Patient Records regulations: The Federal rules restrict any use of the information to criminally investigate or prosecute any alcohol or drug abuse patient.[facility] HospitalIn the event this information is protected by the Federal Confidentiality of Alcohol and Drug Abuse Patient Records regulations: The Federal rules restrict any use of the information to criminally investigate or prosecute any alcohol or drug abuse patient.[facility] HospitalIn the event this information is protected by the Federal Confidentiality of Alcohol and Drug Abuse Patient Records regulations: The Federal rules restrict any use of the information to criminally investigate or prosecute any alcohol or drug abuse patient.[facility] HospitalIn the event this information is protected by the Federal Confidentiality of Alcohol and Drug Abuse Patient Records regulations: The Federal rules restrict any use of the information to criminally investigate or prosecute any alcohol or drug abuse patient.[facility] HospitalIn the event this information is protected by the Federal Confidentiality of Alcohol and Drug Abuse Patient Records regulations: The Federal rules restrict any use of the information to criminally investigate or prosecute any alcohol or drug abuse patient.[facility] HospitalIn the event this information is protected by the Federal Confidentiality of Alcohol and Drug Abuse Patient Records regulations: The Federal rules restrict any use of the information to criminally investigate or prosecute any alcohol or drug abuse patient.[facility] HospitalIn the event this information is protected by the Federal Confidentiality of Alcohol and Drug Abuse Patient Records regulations: The Federal rules restrict any use of the information to criminally investigate or prosecute any alcohol or drug abuse patient.[facility] HospitalIn the event this information is protected by the Federal Confidentiality of Alcohol and Drug Abuse Patient Records regulations: The Federal rules restrict any use of the information to criminally investigate or prosecute any alcohol or drug abuse patient.[facility] HospitalIn the event this information is protected by the Federal Confidentiality of Alcohol and Drug Abuse Patient Records regulations: The Federal rules restrict any use of the information to criminally investigate or prosecute any alcohol or drug abuse patient.[facility] HospitalIn the event this information is protected by the Federal Confidentiality of Alcohol and Drug Abuse Patient Records regulations: The Federal rules restrict any use of the information to criminally investigate or prosecute any alcohol or drug abuse patient.[facility] HospitalIn the event this information is protected by the Federal Confidentiality of Alcohol and Drug Abuse Patient Records regulations: The Federal rules restrict any use of the information to criminally investigate or prosecute any alcohol or drug abuse patient.[facility] HospitalIn the event this information is protected by the Federal Confidentiality of Alcohol and Drug Abuse Patient Records regulations: The Federal rules restrict any use of the information to criminally investigate or prosecute any alcohol or drug abuse patient.[facility] HospitalIn the event this information is protected by the Federal Confidentiality of Alcohol and Drug Abuse Patient Records regulations: The Federal rules restrict any use of the information to criminally investigate or prosecute any alcohol or drug abuse patient.[facility] HospitalIn the event this information is protected by the Federal Confidentiality of Alcohol and Drug Abuse Patient Records regulations: The Federal rules restrict any use of the information to criminally investigate or prosecute any alcohol or drug abuse patient.[facility] HospitalIn the event this information is protected by the Federal Confidentiality of Alcohol and Drug Abuse Patient Records regulations: The Federal rules restrict any use of the information to criminally investigate or prosecute any alcohol or drug abuse patient.[facility] HospitalIn the event this information is protected by the Federal Confidentiality of Alcohol and Drug Abuse Patient Records regulations: The Federal rules restrict any use of the information to criminally investigate or prosecute any alcohol or drug abuse patient.[facility] HospitalIn the event this information is protected by the Federal Confidentiality of Alcohol and Drug Abuse Patient Records regulations: The Federal rules restrict any use of the information to criminally investigate or prosecute any alcohol or drug abuse patient.[facility] HospitalIn the event this information is protected by the Federal Confidentiality of Alcohol and Drug Abuse Patient Records regulations: The Federal rules restrict any use of the information to criminally investigate or prosecute any alcohol or drug abuse patient.[facility] HospitalIn the event this information is protected by the Federal Confidentiality of Alcohol and Drug Abuse Patient Records regulations: The Federal rules restrict any use of the information to criminally investigate or prosecute any alcohol or drug abuse patient.[facility] HospitalIn the event this information is protected by the Federal Confidentiality of Alcohol and Drug Abuse Patient Records regulations: The Federal rules restrict any use of the information to criminally investigate or prosecute any alcohol or drug abuse patient.[facility] HospitalIn the event this information is protected by the Federal Confidentiality of Alcohol and Drug Abuse Patient Records regulations: The Federal rules restrict any use of the information to criminally investigate or prosecute any alcohol or drug abuse patient.[facility] HospitalIn the event this information is protected by the Federal Confidentiality of Alcohol and Drug Abuse Patient Records regulations: The Federal rules restrict any use of the information to criminally investigate or prosecute any alcohol or drug abuse patient.[facility] HospitalIn the event this information is protected by the Federal Confidentiality of Alcohol and Drug Abuse Patient Records regulations: The Federal rules restrict any use of the information to criminally investigate or prosecute any alcohol or drug abuse patient.[facility] HospitalIn the event this information is protected by the Federal Confidentiality of Alcohol and Drug Abuse Patient Records regulations: The Federal rules restrict any use of the information to criminally investigate or prosecute any alcohol or drug abuse patient.[facility] Hospital[facility] the event this information is protected by the Federal Confidentiality of Alcohol and Drug Abuse Patient Records regulations: The Federal rules restrict any use of the information to criminally investigate or prosecute any alcohol or drug abuse patient.[facility] Reason for Visit (unrecogniz ed section and content) Reason Comments Medication Problem Reason Comments Medication Authorization [facility] Reason Comments Immunodeficiency Reason Comments Return Provider Call Reason Comments Prescription Refills [facility] Reason Comments New Patient Specialty Diagnoses / Procedures Referred By Contac t Referred To Contact Neurology Diagnoses POTS (postural orthostatic tachycardia syndrome) Procedures CONSULT TO NEUROLOGY OFFICE/OUTPATIENT [facility] 60-74 MINUTES Arsh Kiser MD, PhD [address] [id number] Referral ID Status Reason Start Date Expiration Date V isits Requested Visits Authorized [id number] Closed PCP Requested Referral 04/25/2021 04/25/2022 1 1 Reason Comments 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 Specialty Diagnoses / Procedures Referred By Contac t Referred To Contact Ophthalmology Diagnoses Tension headache Blurry vision, bilateral Procedures CONSULT TO OPHTHALMOLOGY OFFICE/OUTPATIENT [facility] 60-74 MINUTES Saroj Foss APRN.MANAGER TRADING [address] [place] [address] Referral ID Status Reason Start Date Expiration Date V isits Requested Visits Authorized [id number] Closed PCP Requested Referral 09/20/2021 09/20/2022 1 1 Specialty Diagnoses / Procedures Referred By Contac t Referred To Contact MR IMAGING Diagnoses Demyelinating disease of central nervous system (HCC) Procedures MRI CERVICAL SPINE WO/W IVCON MRI SPINAL CANAL CERVICAL W/O & W/CONTR MATRL Saroj Foss APRN.MANAGER TRADING [address] [phone] Mr Imaging Referral ID Status Reason Start Date Expiration Date V isits Requested Visits Authorized [id number] Closed Auto-Generate d Referral 09/20/2021 11/21/2021 1 1 Specialty Diagnoses / Procedures Referred By Contac t Referred To Contact MR IMAGING Diagnoses Demyelinating disease of central nervous system (HCC) Procedures MRI BRAIN WO/W IVCON MRI BRAIN BRAIN STEM W/O W/CONTRAST MATERIAL Sraoj Foss, 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 [address] [place] [address] Mr Imaging Referral ID Status Reason Start Date Expiration Date V isits Requested Visits Authorized [id number] Closed Auto-Generate d Referral 09/20/2021 12/03/2021 1 1 Reason Comments Patient Question Reason Comments Patient Update Reason Comments Established Patient Reason Comments New Patient Specialty Diagnoses / Procedures Referred By Contac t Referred To Contact Neurology Diagnoses Tremulousness Procedures CONSULT TO NEUROLOGY OFFICE/OUTPATIENT [facility] 60-74 MINUTES Saroj Foss, 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 [address] [place] [address] Referral ID Status Reason Start Date Expiration Date V isits Requested Visits Authorized [id number] Closed PCP Requested Referral 11/23/2021 11/23/2022 1 1 Reason Comments Plan of Care [facility] Reason Comments Patient Update [facility] Reason Comments Prior Authorization [facility] Reason Comments Immunodeficiency Reason Comments Retail Manager - Other Reason Comments Consult Reason Comments Retail Manager - Other ED report Reason Comments Radiology [place] Reason Comments Appointment Reason Comments Follow Up Phone Call Post Discharge F/U - attempt made. No answer. Reason Comments New Patient Specialty Diagnoses / Procedures Referred By Contac t Referred To Contact Neurology Diagnoses Chronic fatigue Sleep walking disorder Procedures CONSULT TO NEUROLOGY OFFICE/OUTPATIENT [facility] 60-74 MINUTES Saroj Foss, 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 [address] [place] [address] Referral ID Status Reason Start Date Expiration Date V isits Requested Visits Authorized [id number] Closed PCP Requested Referral 11/23/2021 11/23/2022 1 1 Reason Comments Refill Request Reason Comments Prescription Faxed [facility] Reason Comments No Show Reason Comments Established Patient Specialty Diagnoses / Procedures Referred By Contac t Referred To Contact Diagnoses Tremulousness Procedures PROVIDER ORDERED FOLLOW UP OFFICE/OUTPATIENT [facility] 60-74 MINUTES Chito Noyola MD [address] [place] [address] Referral ID Status Reason Start Date Expiration Date V isits Requested Visits Authorized [id number] Closed PCP Requested Referral 11/29/2021 02/27/2022 1 1 Reason Comments Medication Authorization [facility] Reason Comments Established Patient Reason Comments Retail Manager - Other Gastroenterolog ist Reason Onset Date Comments EMG 04/11/2022 Specialty Diagnoses / Procedures Referred By Contac t Referred To Contact [facility] Diagnoses Proximal leg weakness Procedures EMG(NEURO/NI) NERVE CONDUCTION STUDIES 9-10 STUDIES Saroj Foss, 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 [address] [place] [address] [facility] [place] [address] [place] [address] Referral ID Status Reason Start Date Expiration Date V isits Requested Visits Authorized [id number] Closed Auto-Generate d Referral 03/10/2022 02/18/2023 1 1 Reason Comments Retail Manager - Other Gastroparesis c linic: chart review; new patient call - no answer Reason Comments Consult Reason Comments Appointment To discuss lab resul ts Reason Comments Gastroparesis Reason Comments Established Patient Reason Comments Faxed Clinical Notes/ Prescription [facility] Reason Comments Consult New Patient Specialty Diagnoses / Procedures Referred By Contac t Referred To Contact Neurology Diagnoses Proximal leg weakness Spasm of muscle Abnormal laboratory test Procedures CONSULT TO NEUROLOGY OFFICE/OUTPATIENT [facility] 60-74 MINUTES Saroj Foss, 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 [address] [place] [address] Referral ID Status Reason Start Date Expiration Date V isits Requested Visits Authorized [id number] Closed PCP Requested Referral 06/27/2022 06/27/2023 1 1 Reason Comments Approval Letter Overnight Brainwave Study (EEG) Reason Comments Follow Up Phone Call All clear Specialty Diagnoses / Procedures Referred By Contac t Referred To Contact Diagnoses Stiffman syndrome Procedures CONSULT TO [facility] OFFICE/OUTPATIENT [facility] 60-74 MINUTES Vesta Mares, 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 [address] [place] [address] Referral ID Status Reason Start Date Expiration Date V isits Requested Visits Authorized [id number] Closed PCP Requested Referral 07/16/2022 07/16/2023 1 1 Reason Comments Stiff Person Spectrum Ab Testing Reason Comments Follow Up EMU follow up, non-e pileptic diagnosis Reason Comments Preparations For Procedures Reason Comments Memory Problems Specialty Diagnoses / Procedures Referred By Contac t Referred To Contact [facility] Diagnoses Functional neurological symptom disorder with weakness or paralysis Other speech disturbance Procedures CONSULT TO SPEECH THERAPY OFFICE/OUTPATIENT [facility] 60-74 MINUTES Bebeto Perry MD [address] [phone] [facility] [place] [address] [place], [place] [id number] Referral ID Status Reason Start Date Expiration Date V isits Requested Visits Authorized [id number] Closed Auto-Generate d Referral 09/29/2022 02/18/2023 1 1 Reason Comments OT EVAL Specialty Diagnoses / Procedures Referred By Contac t Referred To Contact Occupational Therapy / OCCUPATIONAL THERAPY Diagnoses Functional neurological symptom disorder with weakness or paralysis Incoordination of extremity Procedures CONSULT TO MANAGEMENT ASSOCIATE Bebeto Perry MD [address] [place] [address] Ot [place] [address] [place] [address] Referral ID Status Reason Start Date Expiration Date Visits Re quested Visits Authorized [id number] Closed 09/29/2022 02/18/2023 1 1 Reason Comments Faxed Prescription [facility] Reason Comments PT Eval Specialty Diagnoses / Procedures Referred By Contac t Referred To Contact Physical Therapy / PHYSICAL THERAPY Diagnoses Functional neurological symptom disorder with weakness or paralysis Gait instability Procedures CONSULT TO PHYSICAL THERAPY Bebeto Perry MD [address] [phone] [place] [address] Referral ID Status Reason Start Date Expiration Date Visits Re quested Visits Authorized [id number] Closed 09/29/2022 02/18/2023 1 1 Reason Comments Faxed Prescription [facility] Reason Comments Faxed Clinical Notes [facility] Reason Comments Consult Specialty Diagnoses / Procedures Referred By Contac t Referred To Contact Psychology Diagnoses Functional neurological symptom disorder with weakness or paralysis Procedures CONSULT TO PSYCHOLOGY OFFICE/OUTPATIENT [facility] MDM 60-74 MINUTES Bebeto Perry MD [address] [phone] Referral ID Status Reason Start Date Expiration Date Visits Requested Visits Authorized [id number] Pending Review PCP Requested Referral 08/10/2022 08/10/2023 1 1 Reason Comments Consult Specialty Diagnoses / Procedures Referred By Contac t Referred To Contact Diagnoses Functional neurological symptom disorder with weakness or paralysis Procedures CONSULT TO FUNCTIONAL MOVEMENT DISORDERS (FMD) OFFICE/OUTPATIENT [facility] MDM 60-74 MINUTES Bebeto Perry MD [address] [place] [address] Referral ID Status Reason Start Date Expiration Date V isits Requested Visits Authorized [id number] Closed PCP Requested Referral 08/10/2022 08/10/2023 1 1 Reason Comments Pre-Op Exam Reason Comments Follow Up Reason Comments Anxiety Posttraumatic Stress Disorder Specialty Diagnoses / Procedures Referred By Contac t Referred To Contact Psychiatry / ADULT PSYCHIATRY Diagnoses virtual follow up Procedures VIDEO PSYC/PSYL EST Antoine Costa MD [address] [place] [address] Antoine Costa MD [address] [place] [address] Referral ID Status Reason Start Date Expiration Date V isits Requested Visits Authorized [id number] Pending Review 01/22/2023 02/19/2024 99 [phone] Reason Comments Recheck Care Teams (unrecognized sec tion and content) Coating And Baking Operator Relationship Specialty Start Date End Date Lizy Soria DO PCP - General Family Practice 08/03/10 Coating And Baking Operator Relationship Specialty Start Date End Date Lizy Soria DO PCP - General Family Practice 08/03/10 Coating And Baking Operator Relationship Specialty Start Date End Date Lizy Soria DO PCP - General Family Practice 08/03/10 Team Status: Inactive Member Role Status Dates Lizy Soria DO Primary Care Provider Active Antonio Reyes MD Emergency Provider Active Team Status: Active Member Role Status Dates Lizy Soria DO Primary Care Provider Active Coating And Baking Operator Relationship Specialty Start Date End Date Darren, Lizy Jain, DO PCP - General Family Practice 08/03/10 Coating And Baking Operator Relationship Specialty Start Date End Date Darren, Lizy Jain, DO PCP - General Family Practice 08/03/10 Coating And Baking Operator Relationship Specialty Start Date End Date Darren, Lizy Jain, DO PCP - General Family Practice 08/03/10 Coating And Baking Operator Relationship Specialty Start Date End Date Darren, Lizy Jain, DO PCP - General Family Practice 08/03/10 Coating And Baking Operator Relationship Specialty Start Date End Date Darren, Lizy Jain, DO PCP - General Family Practice 08/03/10 Coating And Baking Operator Relationship Specialty Start Date End Date Darren, Lizy Jain DO PCP - General Family Practice 08/03/10 Coating And Baking Operator Relationship Specialty Start Date End Date Darren, Lizy Jain DO PCP - General Family Practice 08/03/10 Coating And Baking Operator Relationship Specialty Start Date End Date Darren, Lizy Jain DO PCP - General Family Medicine 08/03/10 Coating And Baking Operator Relationship Specialty Start Date End Date Darren, Lizy Jain DO PCP - General Family Medicine 08/03/10 Coating And Baking Operator Relationship Specialty Start Date End Date Darren, Lizy Jain DO PCP - General Family Medicine 08/03/10 Coating And Baking Operator Relationship Specialty Start Date End Date Darren, Lizy Jain DO PCP - General Family Medicine 08/03/10 Coating And Baking Operator Relationship Specialty Start Date End Date Darren, Lizy S, DO PCP - General Family Medicine 08/03/10 Coating And Baking Operator Relationship Specialty Start Date End Date Darren, Lizy Jain, DO PCP - General Family Medicine 08/03/10 Coating And Baking Operator Relationship Specialty Start Date End Date Darren, Lizy Jain, DO PCP - General Family Medicine 08/03/10 Coating And Baking Operator Relationship Specialty Start Date End Date Darren, Lizy Jain, DO PCP - General Family Medicine 08/03/10 Coating And Baking Operator Relationship Specialty Start Date End Date Darren, Lizy Jain, DO PCP - General Family Medicine 08/03/10 Coating And Baking Operator Relationship Specialty Start Date End Date Darren, Lizy Jain DO PCP - General Family Medicine 08/03/10 Coating And Baking Operator Relationship Specialty Start Date End Date Darren, Lizy Jain, DO PCP - General Family Medicine 08/03/10 Coating And Baking Operator Relationship Specialty Start Date End Date Darren, Lizy Jain, DO PCP - General Family Medicine 08/03/10 Coating And Baking Operator Relationship Specialty Start Date End Date Darren, Lizy Jain, DO PCP - General Family Medicine 08/03/10 Coating And Baking Operator Relationship Specialty Start Date End Date Darren, Lizy Jain, DO PCP - General Family Medicine 08/03/10 Coating And Baking Operator Relationship Specialty Start Date End Date Darren, Lizy Jain, DO PCP - General Family Medicine 08/03/10 Coating And Baking Operator Relationship Specialty Start Date End Date Darren, Lizy Jain DO PCP - General Family Medicine 08/03/10 Coating And Baking Operator Relationship Specialty Start Date End Date Darren, Lizy Jain, DO PCP - General Family Medicine 08/03/10 Coating And Baking Operator Relationship Specialty Start Date End Date Darren, Lizy Jain DO PCP - General Family Medicine 08/03/10 Coating And Baking Operator Relationship Specialty Start Date End Date Darren, Lizy Jain DO PCP - General Family Medicine 08/03/10 Coating And Baking Operator Relationship Specialty Start Date End Date Darren, Lizy Jain DO PCP - General Family Medicine 08/03/10 Coating And Baking Operator Relationship Specialty Start Date End Date Darren, Lizy Jain DO PCP - General Family Medicine 08/03/10 Coating And Baking Operator Relationship Specialty Start Date End Date Darren, Lizy Jain DO PCP - General Family Medicine 08/03/10 Coating And Baking Operator Relationship Specialty Start Date End Date Darren, Lizy Jain DO PCP - General Family Medicine 08/03/10 Coating And Baking Operator Relationship Specialty Start Date End Date Darren, Lizy Jain DO PCP - General Family Medicine 08/03/10 Coating And Baking Operator Relationship Specialty Start Date End Date Darren, Lizy Jain DO PCP - General Family Medicine 08/03/10 Kathryn Gutierrez RN [address] [place] [address] Specialty Retail Manager [facility] 04/03/22 Coating And Baking Operator Relationship Specialty Start Date End Date Darren, Lizy Jain DO PCP - General Family Medicine 08/03/10 Kathryn Gutierrez RN [address] [place] [address] Specialty Retail Manager Hematology 04/03/22 Coating And Baking Operator Relationship Specialty Start Date End Date Darren, Lizy Jain DO PCP - General Family Medicine 08/03/10 Kathryn Gutierrez, RN [address] [place] [address] Specialty Retail Manager Hematology 04/03/22 Coating And Baking Operator Relationship Specialty Start Date End Date Darren, Lizy Jain DO PCP - General Family Medicine 08/03/10 Kathryn Gutierrez, RN [address] [place] [phone] Specialty Retail Manager Hematology 04/03/22 Coating And Baking Operator Relationship Specialty Start Date End Date Darren, Lizy Jain DO PCP - General Family Medicine 08/03/10 Kathryn Gutierrez, RN [address] [place] [phone] Specialty Retail Manager Hematology 04/03/22 Coating And Baking Operator Relationship Specialty Start Date End Date Darren, Lizy Jain DO PCP - General Family Medicine 08/03/10 Kathryn Gutierrez, RN [address] [place] [phone] Specialty Retail Manager Hematology 04/03/22 Coating And Baking Operator Relationship Specialty Start Date End Date Darren, Lizy Jain DO PCP - General Family Medicine 08/03/10 Kathryn Gutierrez, RN [address] [place] [address] Specialty Retail Manager Hematology 04/03/22 Coating And Baking Operator Relationship Specialty Start Date End Date Darren, Lizy Jain DO PCP - General Family Medicine 08/03/10 Kathryn Gutierrez, RN [address] [place] [phone] Specialty Retail Manager Hematology 04/03/22 Coating And Baking Operator Relationship Specialty Start Date End Date Darren, Lizy Jain DO PCP - General Family Medicine 08/03/10 Kathryn Gutierrez, RN [address] [place] [address] Specialty Retail Manager Hematology 04/03/22 Coating And Baking Operator Relationship Specialty Start Date End Date Lizy Soria DO PCP - General Family Medicine 08/03/10 Kathryn Gutierrez, RN [address] [place] [phone] Specialty Retail Manager Hematology 04/03/22 Coating And Baking Operator Relationship Specialty Start Date End Date Lizy Soria DO PCP - General Family Medicine 08/03/10 Kathryn Gutierrez, RN [address] [address] Specialty Retail Manager Hematology 04/03/22 Coating And Baking Operator Relationship Specialty Start Date End Date Lizy Soria DO PCP - General Family Medicine 08/03/10 Kathryn Gutierrez, RN [address] [address] Specialty Retail Manager Hematology 04/03/22 Coating And Baking Operator Relationship Specialty Start Date End Date Lizy Soria DO PCP - General Family Medicine 08/03/10 Kathryn Gutierrez, RN [address] [place] [phone] Specialty Retail Manager Hematology 04/03/22 Coating And Baking Operator Relationship Specialty Start Date End Date Lizy Soria DO PCP - General Family Medicine 08/03/10 Kathryn Gutierrez, RN [address] [place] [phone] Specialty Retail Manager Hematology 04/03/22 Coating And Baking Operator Relationship Specialty Start Date End Date Lizy Soria DO PCP - General Family Medicine 08/03/10 Kathryn Gutierrez, ARMANI [address] [place] [address] Specialty Retail Manager Hematology 04/03/22 Coating And Baking Operator Relationship Specialty Start Date End Date Darren, Lizy Jain DO PCP - General Family Medicine 08/03/10 Kathryn Gutierrez RN [address] [place] [address] Specialty Retail Manager Hematology 04/03/22 Coating And Baking Operator Relationship Specialty Start Date End Date Darren, Lizy Jain DO PCP - General Family Medicine 08/03/10 Kathryn Gutierrez, ARMANI [address] [place] [address] Specialty Retail Manager Hematology 04/03/22 Coating And Baking Operator Relationship Specialty Start Date End Date Darren, Lizy Jain DO PCP - General Family Medicine 08/03/10 Kathryn Gutierrez, RN [address] [place] [phone] Specialty Retail Manager Hematology 04/03/22 Coating And Baking Operator Relationship Specialty Start Date End Date Darren, Lizy Jain DO PCP - General Family Medicine 08/03/10 Kathryn Gutierrez, ARMANI [address] [place] [address] Specialty Retail Manager Hematology 04/03/22 Coating And Baking Operator Relationship Specialty Start Date End Date Darren, Lizy Jain DO PCP - General Family Medicine 08/03/10 Kathryn Gutierrez, RN [address] [place] [phone] Specialty Retail Manager Hematology 04/03/22 Coating And Baking Operator Relationship Specialty Start Date End Date Lizy Soria DO PCP - General Family Medicine 08/03/10 Kathryn Gutierrez, RN [address] [place] [address] Specialty Retail Manager Hematology 04/03/22 Coating And Baking Operator Relationship Specialty Start Date End Date Darren, Lizy Jain DO PCP - General Family Medicine 08/03/10 Kathryn Gutierrez, RN [address] [place] [phone] Specialty Retail Manager Hematology 04/03/22 Coating And Baking Operator Relationship Specialty Start Date End Date Darren, Lizy Jain DO PCP - General Family Medicine 08/03/10 Kathryn Gutierrez, RN [address] [place] [address] Specialty Retail Manager Hematology 04/03/22 Coating And Baking Operator Relationship Specialty Start Date End Date Darren, Lizy Jain DO PCP - General Family Medicine 08/03/10 Kathryn Gutierrez, RN [address] [place] [address] Specialty Retail Manager Hematology 04/03/22 Coating And Baking Operator Relationship Specialty Start Date End Date Darren, Lizy Jain DO PCP - General Family Medicine 08/03/10 Kathryn Gutierrez, RN [address] [place] [phone] Specialty Retail Manager Hematology 04/03/22 Coating And Baking Operator Relationship Specialty Start Date End Date Darren, Lizy Jain DO PCP - General Family Medicine 08/03/10 Kathryn Gutierrez, RN [address] [place] [phone] Specialty Retail Manager Hematology 04/03/22 Coating And Baking Operator Relationship Specialty Start Date End Date Lizy Soria DO PCP - General Family Medicine 08/03/10 Kathryn Gutierrez, RN [address] [place] [address] Specialty Retail Manager Hematology 04/03/22 Coating And Baking Operator Relationship Specialty Start Date End Date Lizy Soria DO PCP - General Family Medicine 08/03/10 Kathryn Gutierrez, RN [address] [place] [phone] Specialty Retail Manager Hematology 04/03/22 Coating And Baking Operator Relationship Specialty Start Date End Date Lizy Soria DO PCP - General Family Medicine 08/03/10 Kathryn Gutierrez RN [address] [place] [address] Specialty Retail Manager Hematology 04/03/22 Coating And Baking Operator Relationship Specialty Start Date End Date Lizy Soria DO PCP - General Family Medicine 08/03/10 Kathryn Gutierrez, RN [address] [place] [phone] Specialty Retail Manager Hematology 04/03/22 Coating And Baking Operator Relationship Specialty Start Date End Date Lizy Soria DO PCP - General Family Medicine 08/03/10 Kathryn Gutierrez, RN [address] [place] [address] Specialty Retail Manager Hematology 04/03/22 Coating And Baking Operator Relationship Specialty Start Date End Date Lizy Soria DO PCP - General Family Medicine 08/03/10 Kathryn Gutierrez, RN [address] [place] [address] Specialty Retail Manager Hematology 04/03/22 Coating And Baking Operator Relationship Specialty Start Date End Date Lizy Soria DO PCP - General Family Medicine 08/03/10 Kathryn Gutierrez, RN [address] [place] [address] Specialty Retail Manager Hematology 04/03/22 Coating And Baking Operator Relationship Specialty Start Date End Date Lizy Soria DO PCP - General Family Medicine 08/03/10 Kathryn Gutierrez, ARMANI [address] [place] [phone] Specialty Retail Manager Hematology 04/03/22 Coating And Baking Operator Relationship Specialty Start Date End Date Lizy Soria DO PCP - General Family Medicine 08/03/10 Kathryn Gutierrez, ARMANI [address] [place] [phone] Specialty Retail Manager Hematology 04/03/22 Coating And Baking Operator Relationship Specialty Start Date End Date Lizy Soria DO PCP - General Family Medicine 08/03/10 Kathryn Gutierrez, RN [address] [place] [phone] Specialty Retail Manager Hematology 04/03/22 Goals (unrecognized section and content) Goals may be documented in a n alternate section INFORMATION SOURCE (unrecogn ized section and content) DATE CREATED AUTHOR 08/05/2021 [facility] [facility] DATE CREATED AUTHOR AUTHOR'S ORGANIZ ATION 08/05/2021 [facility] DATE CREATED AUTHOR AUTHOR'S ORGANIZ ATION 10/14/2021 [facility] DATE CREATED AUTHOR AUTHOR'S ORGANIZ ATION 02/09/2022 [facility] DATE CREATED AUTHOR AUTHOR'S ORGANIZ ATION 10/06/2022 [facility] DATE CREATED AUTHOR AUTHOR'S ORGANIZ ATION 10/18/2022 [facility] DATE CREATED AUTHOR AUTHOR'S ORGANIZ ATION 12/07/2022 [facility] DATE CREATED AUTHOR AUTHOR'S ORGANIZ ATION 02/09/2023 Yamini Nagy [facility] DATE CREATED AUTHOR AUTHOR'S ORGANIZ ATION 02/25/2023 [facility] DATE CREATED AUTHOR AUTHOR'S ORGANIZ ATION 03/09/2023 [facility] FOR RECORDS PERTAINING TO PATIENTS WHO ARE OR HAVE BEEN ENROLLED IN A CHEMICAL DEPENDENCY/SUBSTANCEABUSE PROGRAM, SOME INFORMATION MAY BE OMITTED. This clinical summary was aggregated from multiple sources. Caution should be exercised in using it in the provision of clinical care. This summary normalizes information from multiple sources, and as a consequence, information in this document may materially change the coding, format and clinical context of patient data. In addition, data may be omitted in some cases. CLINICAL DECISIONS SHOULD BE BASED ON THE PRIMARY CLINICAL RECORDS. [facility] [employer] [facility]. provides no warranty or guarantee of the accuracy or completeness of information in this document.
[2023-03-15 10:20] LABS: TSH W/ REFLEX FT4 3.899 uIU/mL (0.358-3.740)
[2023-03-15 11:03] LABS: Free T4 0.84 ng/dL (0.76-1.46)
[2023-03-16 04:08] LABS: Immunoglobulin G, Qn 1338 mg/dL (586-1602)
[2023-03-16 06:09] LABS: Immunoglobulin M, Q <5 mg/dL (26-217); Insulin 13.6 uIU/mL (2.6-24.9)
[2023-03-16 09:09] LABS: Thyroid Peroxidase (TPO) Ab 39 IU/mL (0-34)
== END 2023-03-15 08:54 | disposition home or self-care (01) ==
LOC: LAB 08:57
PROVIDERS: PCP Family Medicine; Visit Provider Family Medicine
DX: R63.5 Abnormal weight gain (principal); N64.3 Galactorrhea not associated with childbirth; D80.1 Nonfamilial hypogammaglobulinemia; D83.9 Common variable immunodeficiency, unspecified
CPT/HCPCS: 36415; 82024; 82088; 82533; 82784; 82787; 83525; 84244; 84439; 84443; 86376

== ENCOUNTER 2023-03-16 16:10 | Outpatient (OUT) | payer OTHER, SELFPAY ==
--- OUTSIDE RECORDS SUMMARY | 2023-03-16 16:16 | XMS_ITS | CCD ---
Author Name Unknown Address [address] [place] [address] [address] [place] [address] Organization [facility] Care Team Providers Care Mitigation Supervisor Name Role Phone Lizy Soria DO Primary [...] Care Unavailable RADHA COOLEY Attending Unavailable SHAUN OCNTEH Admitting UnavailCHARLY Lund Referring Unavailable ROYCE HAUSER [...] Translations: [BROMPHENIRAMINE-PS EUDOEPHEDRIN] Drug Allergy 07-31-19 09 [facility] (20 sources) Serotonin 5ht-3 Antagonists; Translations: [SEROTONIN 5HT-3 ANTAGONISTS] Drug Intolerance 10-07-19 11 Other: See Comments [facility] (9 sources) Chlorpheniramine / Phenylephrine; Translations: [chlorpheniramine-p henylephrine] Drug Allergy [facility] [place] (1 source) carbinoxamine Drug Allergy 08-05-19 22 Unknown Reaction [facility] (1 source) Pseudoephedrine Drug Allergy 08-05-19 22 Unknown Reaction [facility] (1 source) carbinoxamine / Pseudoephedrine Drug Allergy 02-01-20 13 [facility] (8 sources) Latex; Translations: [LATEX, NATURAL RUBBER] Drug Allergy 10-24-18 86 Rash, Swelling [facility] Work Phone: (1 source) medroxyPROGESTERone ; [...] take 1 capsule by mouth once daily [place]-3 Fish Oil 1000 mg oral capsule 1,000 mg = 1 cap(s), Oral, Daily, # 30 cap(s), Refills(s) 11, Pharmacy: [facility], 155, cm, 04/17/22 15:53:00 EST, Height/Length Dosing, 65.8, kg, 04/17/22 15:53:00 EST, Weight Dosing Start Date: 07/12/22 Status: Ordered Start: 07-20-2021 take 1 capsule by [facility] once daily [place]-3 Fish Oil 1000 mg oral capsule 1,000 mg = 1 cap(s), Oral, Daily, # 30 cap(s), Refills(s) 11, Pharmacy: [facility], 155, cm, 04/19/21 16:40:00 EST, Height/Length Dosing, 59.6, kg, 04/19/21 16:40:00 EST, Weight Dosing Start Date: 07/20/21 Status: Ordered fluticasone 0.05 mg/inh Nasal [place] (1 source) Start: 04-14-2020 take 2 spray(s) nasal route once daily fluticasone 0.05 mg/inh Nasal [place] 2 spray(s), Nasal, Daily, 16 gram, Refill(s) 0, each nostril, [facility], 155, cm, 04/14/20 8:32:00 EST, [...] day(s), # 90 tab(s), Refills(s) 1, Pharmacy: [facility], 155, cm, 04/19/21 16:40:00 EST, Height/Length [...] bedtime), # 4 tab(s), Refills(s) 0, Pharmacy: [facility], 155, cm, 01/02/22 7:59:00 EST, Height/Length [...] day(s), # 4 tab(s), Refills(s) 0, Pharmacy: [facility], 155, cm, 08/15/21 15:25:00 EDT, Height/Length [...] tab(s), 3, take with the Vitamin D, [facility], [facility], 155, cm, 04/17/22 15:53:00 EST, [...] tab(s), 3, take with the Vitamin D, [facility], [facility], 155, cm, 04/19/21 16:40:00 EST, [...] day(s), # 180 tab(s), Refills(s) 3, Pharmacy: [facility], 155, cm, 11/01/21 16:20:00 EDT, Height/Length [...] Daily, # 30 cap(s), Refills(s) 0, Pharmacy: [facility], 155, cm, 06/15/20 11:26:00 EDT, Height/Length Dosing, 57.5, kg, 06/15/20 11:26:00 EDT, Weight Dosing Start Date: 06/15/20 Status: Ordered OXcarbazepine 150 mg oral tablet (20 sources) Anti-epileptic Agent Start: 12-15-2014 End: 07-16-2022 take 1 tablet by mouth twice daily Trileptal 150 mg Tab 150 mg = 1 tab(s), Oral, BID, # 180 tab(s), Refills(s) 1, Pharmacy: [facility], 155, cm, 01/02/22 7:59:00 EST, Height/Length [...] on above: Take [address] [facility] daily at bedtime for 7 days, THEN [...] # 90 cap(s), Refills(s) 3, Pharmacy: [facility], 155, cm, 04/19/21 16:40:00 EST, Height/Length Dosing, 59.6, kg, 04/19/21 16:40:00 EST, Weight Dosing Start Date: 04/19/21 Status: Ordered Vitamin D3 5000 intl units oral capsule (8 sources) Start: 07-12-2022 take 1 capsule by mouth once daily at mealtime Vitamin D3 5000 intl units oral capsule 125 mcg = 1 cap(s), Oral, Daily, with food, # 30 cap(s), Refills(s) 11, Pharmacy: [facility], 155, cm, 04/17/22 15:53:00 EST, Height/Length Dosing, 65.8, kg, 04/17/22 15:53:00 EST, Weight Dosing Start Date: 07/12/22 Status: Ordered Start: 07-20-2021 take [address] [facility] once daily at mealtime Vitamin D3 5000 intl units oral capsule 125 mcg = 1 cap(s), Oral, Daily, with food, # 30 cap(s), Refills(s) 11, Pharmacy: [facility], 155, cm, 04/19/21 16:40:00 EST, Height/Length Dosing, 59.6, kg, 04/19/21 16:40:00 EST, Weight Dosing Start Date: 07/20/21 Status: Ordered Zofran ODT 4 mg Tab-Dis (8 sources) Start: 04-17-2022 take 1 tablet by mouth every eight hours as needed for nausea Zofran ODT 4 mg Tab-Dis 4 mg = 1 tab(s), Oral, q8hr, PRN Nausea/Vomiting, # 30 tab(s), Refills(s) 1, Pharmacy: [facility], 155, cm, 01/02/22 7:59:00 EST, Height/Length Dosing, 60.2, kg, 01/02/22 7:59:00 EST, Weight Dosing Start Date: 04/17/22 Status: Ordered Start: 12-13-2021 take 1 tablet by ilia every eight hours as needed for nausea Zofran ODT 4 mg Tab-Dis 4 mg = 1 tab(s), Oral, q8hr, PRN Nausea/Vomiting, # 30 tab(s), Refills(s) 1, Pharmacy: [facility], 155, cm, 11/01/21 16:20:00 EDT, [...] days, # 30 cap(s), Refills(s) 0, Pharmacy: [facility], 155, cm, 07/25/21 16:19:00 EDT, [...] 0 04/01/2021 02/10/2022 Discontinued Start: 04-01-2021 FLUoxetine (MD OZAC) 20 mg capsule Take 60 mg [...] route once daily fluticasone 0.05 mg/inh Nasal [place] 2 spray(s), Nasal, Daily, 16 gram, Refill(s) [...] Comment on above: TAKE ONE TABLET BY [facility] ONCE DAILY FOR 30 DAYS methocarbamol 500 [...] on above: Take [address] [facility] once daily. omeprazole 40 mg delayed release [...] Discontinued Start: 06-15-2020 take 1 capsule by [facility] once daily omeprazole 40 mg Cap-DR 40 mg = 1 cap(s), Oral, Daily, # 30 cap(s), Refills(s) 0, Pharmacy: [facility], 155, cm, 06/15/20 11:26:00 EDT, Height/Length Dosing, 57.5, kg, 06/15/20 11:26:00 EDT, Weight Dosing Start Date: 06/15/20 Status: Ordered Comment on above: Take 40 mg by mouth once daily. Take 1 capsule by [facility] two times a day. ondansetron 4 mg [...] Comment on above: TAKE ONE TABLET BY [facility] EVERY 8 HOURS NEEDED FOR NAUSEA VOMITING pantoprazole 40 mg delayed release oral tablet (6 sources) Proton Pump Inhibitor Start: 3 take 1 tablet by mouth twice daily pantoprazole DR (PROTONIX) 40 mg tablet Indications: Gastroparesis Take 1 tablet by mouth twice daily. Take after POP procedure 60 tablet 0 11/16/2022 Active Comment on above: Take 1 tablet by [facility] twice daily. Take after POP procedure potassium chloride 10 meq extended release oral capsule (15 sources) Start: 3 potassium chloride SR (MICRO-K) 10 mEq CR capsule Take 10 mEq by mouth once daily. 0 06/05/2022 Active Start: 02-16-2020 take 1 capsule by [facility] once daily potassium chloride 10 mEq Cap-ER 10 mEq = 1 cap(s), Oral, Daily, # 30 cap(s), Refills(s) 2, Pharmacy: [facility], 155, cm, 02/10/20 16:46:00 EST, Height/Length Dosing, 58, kg, 02/10/20 16:46:00 EST, Weight Dosing Start Date: 02/16/20 Status: Ordered Start: 02-16-2020 take 1 capsule by [facility] once daily potassium chloride 10 mEq Cap-ER 10 mEq = 1 cap(s), Oral, Daily, # 30 cap(s), Refills(s) 2, Pharmacy: [facility], 155, cm, 02/10/20 16:46:00 EST, [...] days., # 30 tab(s), Refills(s) 0, Pharmacy: [facility], 155, cm, 07/25/21 16:19:00 EDT, Height/Length Dosing, 58.... Start Date: 07/25/21 Status: Ordered Comment on above: Take 1 tablet by [facility] as directed. 2 tabs for 1 week, [...] on above: Take [address] [facility] once daily. TAKE ONE CAPSULE BY MOUTH [...] 05-02-2013 Episodic Other aftercare (1 source) Other nursing home (current) drug therapy; Translations: [OTH TAPPER HELPER CURRENT DRUG THERAPY] Onset: 2 Episodic Other aftercare (1 source) Long-term current use of drug therapy; Translations: [Other nursing home (current) drug therapy] Onset: 3 Episodic Other [...] Test Name Value Interpretation Reference Range Facility [facility] 03-06-2023 CNPN Normal [facility] CNPNon 03-05-2023 CNPN Normal [facility] CNPNon 02-21-2023 CNPN Normal [facility] Prolactinon 02-09-2023 Prolactin 7.70 ng/mL Normal 4.79-23.3 [facility] Comment on above: Result Comment: The presence of macroprolactin may cause interference in female patients with various endocrinological diseases or during . Performed By: #### H CG, ZFAST, BMP, TSHX #### [facility] [address] [place] [address] Dumping Machine Operator: Tom Blackmon MD #### PROL #### [address] [address] Dumping Machine Operator: Joe Frank MD Basic Metabolic Profon 02-08 Anion gap [Moles/Vol] 10 mmol/L Normal 11-05 [facility] Comment on above: Performed By: #### H CG, ZFAST, BMP, TSHX #### [facility] [address] [place] [address] Dumping Machine Operator: Tom Balckmon MD #### PROL #### [facility] [address] [place] [address] Dumping Machine Operator: Joe Frank MD BUN/CRE Ratio 12 Normal 11-08 [facility] Comment on above: Performed By: #### H CG, ZFAST, BMP, TSHX #### [facility] [address] [place], [place] [id number] Dumping Machine Operator: Tom Blackmon MD #### PROL #### [address] [place], [place] [phone] Dumping Machine Operator: Joe Frank MD Calcium [Mass/Vol] 9.6 mg/dL Normal 8.6-10.4 [facility] Comment on above: Performed By: #### H CG, ZFAST, BMP, TSHX #### [facility] [address] [place], [place] [id number] Dumping Machine Operator: Tom Blackmon MD #### PROL #### [address] [id number] Dumping Machine Operator: Joe Frakn MD Chloride [Moles/Vol] 100 mmol/L Normal 98-107 [facility] Comment on above: Performed By: #### H CG, ZFAST, BMP, TSHX #### [facility] [address] [place], [place] [id number] Dumping Machine Operator: Tom Blackmon MD #### PROL #### [address] [id number] Dumping Machine Operator: Joe Frank MD CO2 [Moles/Vol] 25 mmol/L Normal 20-31 [facility] Comment on above: Performed By: #### H CG, ZFAST, BMP, TSHX #### [facility] [address] [place], [place] [id number] Dumping Machine Operator: Tom Blackmon MD #### PROL #### [address] [id number] Dumping Machine Operator: Joe Frank MD Creatinine [Mass/Vol] 1.1 mg/dL High 0.5-0.9 [facility] Comment on above: Performed By: #### H CG, ZFAST, BMP, TSHX #### [facility] [address] [place], [place] [phone] Dumping Machine Operator: Tom Blackmon MD #### PROL #### [address] [id number] Dumping Machine Operator: Joe Frank MD GFR/1.73 sq M.predicted among non-blacks MDRD (S/P/Bld) [Vol rate/Area] mL/min/{1.73_m2} Normal >60 [facility] Comment on above: Result Comment: These results [...] #### H CG, ZFAST, BMP, TSHX #### [facility] [address] [place], [place] [phone] Dumping Machine Operator: Tom Blackmon MD #### PROL #### [address] [id number] Dumping Machine Operator: Joe Frank MD Glucose [Mass/Vol] 99 mg/dL Normal 70-99 [facility] Comment on above: Performed By: #### H CG, ZFAST, BMP, TSHX #### [facility] [address] [place], [place] 1935190 Dumping Machine Operator: Tom Blackmon MD #### PROL #### [address] [id number] Dumping Machine Operator: Joe Frank MD Potassium [Moles/Vol] 4.1 mmol/L Normal 3.7-5.3 [facility] Comment on above: Performed By: #### H CG, ZFAST, BMP, TSHX #### [facility] [address] [place] [address] Dumping Machine Operator: Tom Blackmon MD #### PROL #### [address] [place] [address] Dumping Machine Operator: Joe Frank MD Sodium [Moles/Vol] 135 mmol/L Normal 135-144 [facility] Comment on above: Performed By: #### H CG, ZFAST, BMP, TSHX #### [facility] [address] [place] [address] Dumping Machine Operator: Tom Blackmon MD #### PROL #### [address] [id number] Dumping Machine Operator: Joe Frank MD Urea nitrogen [Mass/Vol] 13 mg/dL Normal 6-20 [facility] Comment on above: Performed By: #### H CG, ZFAST, BMP, TSHX #### [facility] [address] [place] [address] Dumping Machine Operator: Tom Blackmon MD #### PROL #### [address] [id number] Dumping Machine Operator: Joe Frank MD HCG Screen, Bloodon 02-08- 23 HCG Screen, Blood Negative Normal NEG [facility] Comment on above: Result Comment: Spec imens with hCG levels near the threshold of the test (25 mIU/mL) may give a negative or indeterminate result. In such cases, another test should be performed with a new specimen in 48-72 hours. If early is suspected clinically in this setting, correlation with quantitative serum b-hCG level is suggested. [facility] has confirmed the use of plasma for this test. This has not been cleared or approved by the U.S. Food and Drug Administration. The FDA has determined that such clearance is not necessary. Performed By: #### H CG, ZFAST, BMP, TSHX #### [facility] [address] [place] [address] Dumping Machine Operator: Tom Blackmon MD #### PROL #### [address] [place], [place] [phone] Dumping Machine Operator: Joe Frank MD Patient fasting?on 3 Patient fasting? NO Normal [facility] Comment on above: Performed By: #### H CG, ZFAST, BMP, TSHX #### [facility] [address] [place], [place] [phone] Dumping Machine Operator: Tom Blackmon MD #### PROL #### [address] [id number] Dumping Machine Operator: Joe Frank MD TSH w/reflex to FT4on 2022 Thyroid Stim. Horm. 2.58 uIU/mL Normal 0.30-5.00 [facility] Comment on above: Performed By: #### H CG, ZFAST, BMP, TSHX #### [facility] [address] [place], [place] [phone] Dumping Machine Operator: Tom Blackmon MD #### PROL #### [address] [id number] Dumping Machine Operator: Joe Frank MD [facility] 02-06-2023 [facility] NURSING PROGon 12-07-2022 NURSING PROG HNO ID: [id number] Author: Magy Bonilla RN Service: ? Author Type: Registered Nurse Type: Nursing Progress Note Filed: 12/07/2022 9:03 AM Note Text: [facility] ENDOSCOPY POST PROCEDURE FOLLOW UP CALL [phone] (home) Date Phone Call Made: 12/07/2022 Attempt: Attempt #1 Spoke to: Unable to contact patient Magy Bonilla RN [facility] ANES POSTPROC EVALon 023 ANES POSTPROC EVAL HNO ID: [id number] Author: Arsh Hernandez MD Service: Anesthesiology Author Type: Anesthesiologist Type: Anesthesia Postprocedure Evaluation Filed: 12/06/2022 1:55 PM Note Text: POST ANESTHESIA EVALUATION NOTE : 1985 Procedure Summary Date: 12/06/22 Room / Location: [facility] Anesthesia Start: 1008 Anesthesia Stop: 1131 Procedure: EGD - THERAPEUTIC, EUS, OR TUBE INTERVENTIONS Diagnosis: Gastroparesis (Established gastroparesis) Scheduled Providers: Becka Rubi DO; Phan Starks APRN.SCADA OPERATOR; Arsh Hernandez MD Responsible Provider: Arsh Hernandez [...] December 06, 2022 TIME: 1:55 PM CSN: [id number] [facility] ANES PRE-OPon 12-06-2022 ANES PRE-OP HNO ID: [id number] Author: Arsh Hernandez MD Service: Anesthesiology Author Type: Anesthesiologist Type: Anesthesia Preprocedure Evaluation Filed: 12/06/2022 8:39 AM Note Text: ANESTHESIOLOGY DAY OF SURGERY NOTE : 1985 Procedure Information Date/Time: 12/06/22 0930 Scheduled providers: Bekca Rubi DO; Phan Starks APRN.SCADA OPERATOR; Arsh Hernandez MD Procedure: EGD - THERAPEUTIC, EUS, OR TUBE INTERVENTIONS Location: [facility] Estimated body mass index is 30.66 [...] and consent discussed: yes. Patient / Responsible Republican agrees to proceed: yes Patient / Surrogate [...] December 06, 2022 TIME: 8:38 AM CSN: [id number] [facility] EGD - THERAPEUTIC, EUS, OR T UBE INTERVENTIONSon 12-06-2022 [facility] HISTORY PHYSICALon HISTORY PHYSICAL HNO ID: [id number] Author: Katerine Clarke PA Service: Gastroenterology Author Type: Physician Senior Reservoir Engineer Type: HANDP Filed: 12/06/2022 8:49 AM Note [...] Endoscopic Pyloromyotomy Medication reconciliation list reviewed in [facility]. Past medical history, past surgical history, social history and family history reviewed and updated in [facility]. ALLERGIES Allergen Reactions Antidepressants [Se* Other: See Comments It knocks me out. Rondec [Bromphenira* crying for 12 solid hours-per mom Latex, Natural Rubb* Rash, Swelling See [facility] for vital signs Examination indicates no [...] December 06, 2022 TIME: 8:46 AM Normal [facility] Upper GI endoscopyon 10-18-2 023 Upper GI endoscopy [facility] Gastrointestinal Endoscopy Patient Name: Ben Barr Procedure Date: 12/06/2022 10:03 AM Date of : 1985 Admit Type: Outpatient Age: 37 Room: [place] [address] Gender: Female Note Status: Finalized Attending MD: [...] by the physician, the nurse and the lead nitrate processor in the pre-procedure area in the endoscopy [...] in future Procedure Code(s): --- Professional --- 77170, Esophagogastroduodenoscopy, flexible, transoral; diagnostic, including col (more content not included)... Normal [facility] NURSING PROGon 12-01-2022 NURSING PROG HNO ID: [id number] Author: Debra Munson RN Service: ? Author Type: Registered Nurse Type: Nursing Progress Note Filed: 12/01/2022 1:30 PM Note Text: [facility] ENDOSCOPY PRE PROCEDURE CALL Yadira. I'm calling from [facility] endoscopy to provide you with the information for your surgery/procedure tomorrow. Spoke to: Patient CONFIRM Procedure Planned with patient:Esophagogastroduode noscopy(EGD) with or without biopies based on clinical findings, removal of polyps or lesions Are you familiar with where [facility] is located?Yes Address [facility] Patient instructed to enter through the main hospital entrance off [address] through the revolving doors and check in at the main desk with your package car driver's license and insurance card. Yes When anesthesia or sedation is being given: Patient instructed you must have an adult package car driver because you will not be able to work or drive for the rest of the day after your test.Yes Can you please confirm the name and relationship of your package car driver. What is the best number for your package car driver to be reached at tomorrow for updates? Your package car driver is allowed to wait here with you or they may drop you off and come back to pick you up. Patient instructed: Do not eat anything the morning of the procedure, including gum, hard candy and mints.Yes Patient instructed not bring any valuables, jewelry, or hernandez and wear comfortable clothing. Do not wear makeup, lotion, or finger kyrgyz. Yes Patient instructed: Please bring a list [...] given Any barriers to Patient learning (confusion? Resp Ther needed?): Patient/Patient Art Model responded appropriately on phone. Please complete your Pre-Check In paperwork in My Chart if applicable. If patient needs to reschedule please call: [phone] [facility] phone number: [phone] Type of instruction given: Verbal by telephone contact. Normal [facility] HISTORY PHYSICALon HISTORY PHYSICAL Normal [facility] CNPNon 11-21-2022 CNPN Normal [facility] Comprehensive metabolic 2000 panelon 11-21-2022 Albumin [Mass/Vol] 4.5 g/dL Normal 3.9-4.9 [facility] Comment on above: Order Comment: Speci men Type: BLOOD SPECIMENOrdering Facility: [facility] Address: [address] [address] Performed By: #### 2 4323-8 ####[facility] [id number] [place] [address] ALP [Catalytic activity/Vol] 75 U/L Normal 34-123 [facility] Comment on above: Order Comment: Speci men Type: BLOOD SPECIMENOrdering Facility: [facility] Address: [address] [address] Performed By: #### 2 4323-8 ####[facility] [id number] [place] [address] ALT [Catalytic activity/Vol] 19 U/L Normal 7-38 [facility] Comment on above: Order Comment: Speci men Type: BLOOD SPECIMENOrdering Facility: [facility] Address: [address] [address] Performed By: #### 2 4323-8 ####[facility] [id number] [place] [address] Anion gap [Moles/Vol] 7 mmol/L Low 9-18 [facility] Comment on above: Order Comment: Speci men Type: BLOOD SPECIMENOrdering Facility: [facility] Address: [address] [address] Performed By: #### 2 4323-8 ####[facility] [id number] [place] [address] AST [Catalytic activity/Vol] 25 U/L Normal 13-35 [facility] Comment on above: Order Comment: Speci men Type: BLOOD SPECIMENOrdering Facility: [facility] Address: [address] [place] [address] Performed By: #### 2 4323-8 ####[facility] [id number] [place] [address] Bilirubin [Mass/Vol] 0.4 mg/dL Normal 0.2-1.3 [facility] Comment on above: Order Comment: Speci men Type: BLOOD SPECIMENOrdering Facility: [facility] Address: [address] [address] Performed By: #### 2 4323-8 ####[facility] [id number] [place] [address] Calcium [Mass/Vol] 10.0 mg/dL Normal 8.5-10.2 [facility] Comment on above: Order Comment: Speci men Type: BLOOD SPECIMENOrdering Facility: [facility] Address: [address] [place] [address] Performed By: #### 2 4323-8 ####[facility] [id number] [place] [address] Chloride [Moles/Vol] 105 mmol/L Normal 97-105 [facility] Comment on above: Order Comment: Speci men Type: BLOOD SPECIMENOrdering Facility: [facility] Address: [address] [address] Performed By: #### 2 4323-8 ####[facility] [id number] [place] [address] CO2 [Moles/Vol] 27 mmol/L Normal 22-30 [facility] Comment on above: Order Comment: Speci men Type: BLOOD SPECIMENOrdering Facility: [facility] Address: [address] [address] Performed By: #### 2 4323-8 ####[facility] [id number] [place] [address] Creatinine [Mass/Vol] 1.08 mg/dL High 0.58-0.96 [facility] Comment on above: Order Comment: Speci men Type: BLOOD SPECIMENOrdering Facility: [facility] Address: [address] [place] [address] Performed By: #### 2 4323-8 ####[facility] [id number] [place] [address] Creatinine and Glomerular filtration rate.predicted panel (S/P/Bld) 68 mL/min/1.73m??? Normal >=60 [facility] Comment on above: Order Comment: Speci men Type: BLOOD SPECIMENOrdering Facility: [facility] Address: [address] [place] [address] Result Comment: Breana mated Glomerular Filtration Rate [...] actual GFR. Performed By: #### 2 4323-8 ####[facility] [id number] [place] [address] Glucose [Mass/Vol] 96 mg/dL Normal 74-99 [facility] Comment on above: Order Comment: Speci ifeoma Type: BLOOD SPECIMENOrdering Facility: [facility] Address: [address] [place] [address] Result Comment: The [place] [employer] (ADA) provides guidance for cutoff [...] Standards of Medical Care in Diabetes 2016, [employer]. Diabetes Care. 2016.39(Suppl 1). Performed By: #### 2 4323-8 ####[facility] [id number] [place] [address] Potassium [Moles/Vol] 4.1 mmol/L Normal 3.7-5.1 [facility] Comment on above: Order Comment: Speci men Type: BLOOD SPECIMENOrdering Facility: [facility] Address: [address] [place] [address] Performed By: #### 2 4323-8 ####[facility] [id number] [place] [address] Protein [Mass/Vol] 7.8 g/dL Normal 6.3-8.0 [facility] Comment on above: Order Comment: Speci men Type: BLOOD SPECIMENOrdering Facility: [facility] Address: [address] [place] [address] Performed By: #### 2 4323-8 ####[facility] [id number] [place] [address] Sodium [Moles/Vol] 139 mmol/L Normal 136-144 [facility] Comment on above: Order Comment: Speci men Type: BLOOD SPECIMENOrdering Facility: [facility] Address: [address] [place] [address] Performed By: #### 2 4323-8 ####[facility] [id number] [place] [address] Urea nitrogen [Mass/Vol] 13 mg/dL Normal 7-21 [facility] Comment on above: Order Comment: Speci men Type: BLOOD SPECIMENOrdering Facility: [facility] Address: [address] [place] [address] Performed By: #### 2 4323-8 ####[facility] [id number] [place] [address] CNOVon 11-16-2022 CNOV Normal [facility] CNPNon 10-27-2022 CNPN Normal [facility] CNPNon 10-25-2022 CNPN Normal [facility] CNPNon 10-20-2022 CNPN Normal [facility] CNOVon 10-18-2022 CNOV Normal [facility] CNTHERAPYon 10-18-2022 CNTHERAPY Normal [facility] CNTHERAPY Normal [facility] UR Drugs of Abuse Panelon Drug Screen Comment see below Normal [facility] Comment on above: Result Comment: This method is a screening test to detect only these drug classes as part of a medical workup. Confirmatory testing by another method should be ordered if clinically indicated. Performed By: #### U DRGS #### [facility] [address] [place] [address] UR Amphetamines Screen Negative Normal Negative < [facility] Comment on above: Performed By: #### U DRGS #### [facility] [address] [place] [address] UR Barbiturates Screen Negative Normal Negative < [facility] Comment on above: Performed By: #### U DRGS #### [facility] [address] [place] [address] UR Benzo Screen Positive Abnormal Negative < [facility] Comment on above: Performed By: #### U DRGS #### [facility] [address] [place] [address] UR Cannabinoids Screen Positive Abnormal Negative < [facility] Comment on above: Performed By: #### U DRGS #### [facility] [address] [place] [address] UR Cocaine Screen Negative Normal Negative < [facility] Comment on above: Performed By: #### U DRGS #### [facility] [address] [place] [address] UR Fentanyl Screen Negative Normal Negative < [facility] Comment on above: Performed By: #### U DRGS #### [facility] [address] [place] [address] UR Methadone Screen Negative Normal Negative < [facility] Comment on above: Performed By: #### U DRGS #### [facility] [address] [place] [address] UR Opiates Screen Negative Normal Negative < [facility] Comment on above: Performed By: #### U DRGS #### [facility] [address] [place] [address] UR Oxycodone Screen Negative Normal Negative < [facility] Comment on above: Performed By: #### U DRGS #### [facility] [address] [place] [address] UR PCP Screen Negative Normal Negative < [facility] Comment on above: Performed By: #### U DRGS #### [facility] [address] [place] [address] UR Propoxyphene Screen Negative Normal Negative < [facility] Comment on above: Performed By: #### U DRGS #### [facility] [address] [place] [address] CBC W Auto Differential pane l (Bld)on 10-16-2022 Basophils (Bld) [#/Vol] 10*3/uL Normal <0.11 [facility] Comment on above: Order Comment: Speci men Type: BLOOD SPECIMENOrdering Facility: [facility] Address: [address] [address] Performed By: #### 5 7021-8 ####[facility] LABCLIA [id number] [place] [address] [place] Basophils/100 WBC (Bld) 0.4 % Normal [facility] Comment on above: Order Comment: Speci men Type: BLOOD SPECIMENOrdering Facility: [facility] Address: [address] [address] Performed By: #### 5 7021-8 ####[facility] LABCLIA [id number] [place] [address] [place] Differential cell count method Nom (Bld) Auto Normal [facility] Comment on above: Order Comment: Speci men Type: BLOOD SPECIMENOrdering Facility: [facility] Address: [address] [address] Performed By: #### 5 7021-8 ####[facility] LABCLIA [id number] [place] [address] [place] Eosinophils (Bld) [#/Vol] 0.10 10*3/uL Normal <0.46 [facility] Comment on above: Order Comment: Speci men Type: BLOOD SPECIMENOrdering Facility: [facility] Address: [address] Performed By: #### 5 7021-8 ####[facility] LABCLIA [id number] [address] [place] Eosinophils/100 WBC (Bld) 2.0 % Normal [facility] Comment on above: Order Comment: Speci men Type: BLOOD SPECIMENOrdering Facility: [facility] Address: [address] [place], [place] [address] Performed By: #### 5 7021-8 ####[facility] LABCLIA [id number] [address] [place] Erythrocyte distribution width (RBC) [Ratio] 11.8 % Normal 11.5-15.0 [facility] Comment on above: Order Comment: Speci men Type: BLOOD SPECIMENOrdering Facility: [facility] Address: [address] [place], [place] [address] Performed By: #### 5 7021-8 ####[facility] LABCLIA [id number] [address] [place] Hematocrit (Bld) [Volume fraction] 37.7 % Normal 36.0-46.0 [facility] Comment on above: Order Comment: Speci men Type: BLOOD SPECIMENOrdering Facility: [facility] Address: [address] [place], [place] [address] Performed By: #### 5 7021-8 ####[facility] LABCLIA [id number] [place] [address] [place] Hemoglobin (Bld) [Mass/Vol] 12.7 g/dL Normal 11.5-15.5 [facility] Comment on above: Order Comment: Speci men Type: BLOOD SPECIMENOrdering Facility: [facility] Address: [address] [place] [address] Performed By: #### 5 7021-8 ####[facility] LABCLIA [id number] [place] [address] [place] Immature granulocytes (Bld) [#/Vol] 10*3/uL Normal <0.10 [facility] Comment on above: Order Comment: Speci men Type: BLOOD SPECIMENOrdering Facility: [facility] Address: [address] [place], [place] [address] Performed By: #### 5 7021-8 ####[facility] LABCLIA [id number] [address] [place] Immature granulocytes/100 WBC (Bld) 0.4 % Normal [facility] Comment on above: Order Comment: Speci men Type: BLOOD SPECIMENOrdering Facility: [facility] Address: [address] [place], [place] [address] Performed By: #### 5 7021-8 ####[facility] LABCLIA [id number] [place] [address] [place] Lymphocytes (Bld) [#/Vol] 1.70 10*3/uL Normal 1.00-4.00 [facility] Comment on above: Order Comment: Speci men Type: BLOOD SPECIMENOrdering Facility: [facility] Address: [address] [place], [place] [address] Performed By: #### 5 7021-8 ####[facility] LABCLIA [id number] [place] [address] [place] Lymphocytes/100 WBC (Bld) 33.5 % Normal [facility] Comment on above: Order Comment: Speci men Type: BLOOD SPECIMENOrdering Facility: [facility] Address: [address] Performed By: #### 5 7021-8 ####[facility] LABIA [id number] [address] MCH (RBC) [Entitic mass] 30.3 pg Normal 26.0-34.0 [facility] Comment on above: Order Comment: Speci men Type: BLOOD SPECIMENOrdering Facility: [facility] Address: [address] Performed By: #### 5 7021-8 ####[facility] LABIA [id number] [address] [place] MCHC (RBC) [Mass/Vol] 33.7 g/dL Normal 30.5-36.0 [facility] Comment on above: Order Comment: Speci men Type: BLOOD SPECIMENOrdering Facility: [facility] Address: [address] Performed By: #### 5 7021-8 ####[facility] LABIA [id number] [address] [facility] MCV (RBC) [Entitic vol] 90.0 fL Normal 80.0-100.0 [facility] Comment on above: Order Comment: Speci men Type: BLOOD SPECIMENOrdering Facility: [facility] Address: [address] Performed By: #### 5 7021-8 ####[facility] LABIA [id number] [place] [address] [place] Monocytes (Bld) [#/Vol] 0.44 10*3/uL Normal <0.87 [facility] Comment on above: Order Comment: Speci men Type: BLOOD SPECIMENOrdering Facility: [facility] Address: [address] [place], [place] [address] Performed By: #### 5 7021-8 ####[facility] LABCLIA [id number] [place] [address] [place] Monocytes/100 WBC (Bld) 8.7 % Normal [facility] Comment on above: Order Comment: Speci men Type: BLOOD SPECIMENOrdering Facility: [facility] Address: [address] [place] [address] Performed By: #### 5 7021-8 ####[facility] LABCLIA [id number] [place] [address] [place] Neutrophils (Bld) [#/Vol] 2.79 10*3/uL Normal 1.45-7.50 [facility] Comment on above: Order Comment: Speci men Type: BLOOD SPECIMENOrdering Facility: [facility] Address: [address] [place] [address] Performed By: #### 5 7021-8 ####[facility] LABCLIA [id number] [place] [address] [place] Neutrophils/100 WBC (Bld) 55.0 % Normal [facility] Comment on above: Order Comment: Speci men Type: BLOOD SPECIMENOrdering Facility: [facility] Address: [address] [place] [address] Performed By: #### 5 7021-8 ####[facility] LABCLIA [id number] [place] [address] [place] Nucleated RBC (Bld) [#/Vol] 10*3/uL Normal <0.01 [facility] Comment on above: Order Comment: Speci men Type: BLOOD SPECIMENOrdering Facility: [facility] Address: [address] [place], [place] [address] Performed By: #### 5 7021-8 ####[facility] LABCLIA [id number] [place] [address] [place] Nucleated RBC/100 WBC (Bld) [Ratio] 0.0 /100 WBC Normal [facility] Comment on above: Order Comment: Speci men Type: BLOOD SPECIMENOrdering Facility: [facility] Address: [address] [place], [place] [address] Performed By: #### 5 7021-8 ####[facility] LABCLIA [id number] [place] [address] [place] Platelet mean volume (Bld) [Entitic vol] 9.5 fL Normal 9.0-12.7 [facility] Comment on above: Order Comment: Speci men Type: BLOOD SPECIMENOrdering Facility: [facility] Address: [address] [place], [place] [address] Performed By: #### 5 7021-8 ####[facility] LABCLIA [id number] [place] [address] [place] Platelets (Bld) [#/Vol] 238 10*3/uL Normal 150-400 [facility] Comment on above: Order Comment: Speci men Type: BLOOD SPECIMENOrdering Facility: [facility] Address: [address] [place], [place] [address] Performed By: #### 5 7021-8 ####[facility] LABIA [id number] [place] [address] [place] RBC (Bld) [#/Vol] 4.19 10*6/uL Normal 3.90-5.20 [facility] Comment on above: Order Comment: Speci men Type: BLOOD SPECIMENOrdering Facility: [facility] Address: [address] [place], [place] [address] Performed By: #### 5 7021-8 ####[facility]CLIA [id number] [place] [address] [place] WBC (Bld) [#/Vol] 5.07 10*3/uL Normal 3.70-11.00 [facility] Comment on above: Order Comment: Speci men Type: BLOOD SPECIMENOrdering Facility: [facility] Address: [address] [place], [place] [address] Performed By: #### 5 7021-8 ####[facility] LABCLIA [id number] [place] [address] [place] Basophils (Bld) [#/Vol] <0.11 k/uL [facility] Basophils/100 WBC (Bld) 0.4 % [facility] Differential cell count method Nom (Bld) Auto [facility] Eosinophils (Bld) [#/Vol] 0.10 10*3/uL <0.46 k/uL [facility] Eosinophils/100 WBC (Bld) 2.0 % [facility] Erythrocyte distribution width (RBC) [Ratio] 11.8 % 11.5 - 15.0 % [facility] Hematocrit (Bld) [Volume fraction] 37.7 % 36.0 - 46.0 % [facility] Hemoglobin (Bld) [Mass/Vol] 12.7 g/dL 11.5 - 15.5 g/dL [facility] Immature granulocytes (Bld) [#/Vol] <0.10 k/uL [facility] Immature granulocytes/100 WBC (Bld) 0.4 % [facility] Lymphocytes (Bld) [#/Vol] 1.70 10*3/uL 1.00 - 4.00 k/uL [facility] Lymphocytes/100 WBC (Bld) 33.5 % [facility] MCH (RBC) [Entitic mass] 30.3 pg 26.0 - 34.0 pg [facility] MCHC (RBC) [Mass/Vol] 33.7 g/dL 30.5 - 36.0 g/dL [facility] MCV (RBC) [Entitic vol] 90.0 fL 80.0 - 100.0 fL [facility] Monocytes (Bld) [#/Vol] 0.44 10*3/uL <0.87 k/uL [facility] Monocytes/100 WBC (Bld) 8.7 % [facility] Neutrophils (Bld) [#/Vol] 2.79 10*3/uL 1.45 - 7.50 k/uL [facility] Neutrophils/100 WBC (Bld) 55.0 % [facility] Nucleated RBC (Bld) [#/Vol] <0.01 k/uL [facility] Nucleated RBC/100 WBC (Bld) [Ratio] 0.0 /100 WBC [facility] Platelet mean volume (Bld) [Entitic vol] 9.5 fL 9.0 - 12.7 fL [facility] Platelets (Bld) [#/Vol] 238 10*3/uL 150 - 400 k/uL [facility] RBC (Bld) [#/Vol] 4.19 10*6/uL 3.90 - 5.20 m/uL [facility] WBC (Bld) [#/Vol] 5.07 10*3/uL 3.70 - 11.00 k/uL [facility] CNOVon 10-16-2022 CNOV Normal [facility] Ambulatory Visit Summaryon 0 10-05-2022 Ambulatory Visit [...] 10% injectable solution) omega-3 polyunsaturated fatty acids ([place] Pointe-3 Fish Oil 1000 mg oral capsule) ondansetron [...] Vitamin D Unchanged omega-3 polyunsaturated fatty acids ([place]-3 Fish Oil 1000 mg oral capsule) 1 [...] [facility]: [address] [place], [place] [id number] [phone] Allergies Rondec Problems Ongoing - Any problem [...] symptoms? Symptoms (more content not included)... Normal [facility] Ambulatory Visit Summary BEN BARR :1985 Visit [...] 10% injectable solution) omega-3 polyunsaturated fatty acids ([place]-3 Fish Oil 1000 mg oral capsule) ondansetron [...] Vitamin D Unchanged omega-3 polyunsaturated fatty acids ([place]-3 Fish Oil 1000 mg oral capsule) 1 [...] [facility]: [address] [place], [place] [phone] Allergies Ronde Problems Ongoing - Any problem [...] symptoms? Symptoms (more content not included)... 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 When was your last doctors visit: Last provider: Dr Soria Any recent labs: 12/29/2021, labs recently from [facility] PHQ-9: 22 MUMTAZ: 17 Health Maintenance UTD: [...] mg, 1 tab, Oral, Daily, 3 refills [place] Pointe-3 Fish Oil 1000 mg oral capsule, 1000 [...] tab(s), Oral, q8hr, PRN, 1 refills Allergies [facility] Social History Alcohol - Low Risk, 09/06/2012 Current, 1-2 times per month, 02/10/2020 Exercise - Does not exercise, 09/05/2018 Substance Abuse - Denies Substance Abuse, 09/06/2012 Tobacco - Denies Tobacco Use, 02/10/2020 Former smoker, quit more than 30 days ago Tobacco Use:. Never Smokeless Tobacco Use:. Cigarettes, Household tobacco concerns: No., (more content not included)... Normal [facility] Comment on above: Result Comment: Elec tronically [...] your health care provider approves. ? Take pkiu-yhs-flicrre and prescription medicines only as told by your health care provider. ? Keep all follow-up visits. This is important. Where to find more information ? National [place] of Neurological Disorders and Stroke: www.ninds.nih.gov Contact [...] replace a (more content not included)... Normal [facility] Consultation Noteon 09-06-19 23 Consultation Note [id number]:127 Normal [facility] Physician Referralon 023 Physician Referral [id number]:127 Normal [facility] CNOVon 08-10-2022 CNOV Normal [facility] MISC SEND OUT TST 12022 REFERRAL LAB 1 [place] Normal [facility] Comment on above: Order Comment: Specemma dia Type: BLOOD SPECIMENOrdering Facility: [facility] Address: [address] [place] [address] Performed By: #### M ISC1 ####NON-INTERFACED REF LABSCLIA SEE SCANNED RESULTS TEST RESULTS 1 View results in Scan keanu Documents link when available. Normal [facility] Comment on above: Order Comment: Mani dia Type: BLOOD SPECIMENOrdering Facility: [facility] Address: [address] [place] [address] Performed By: #### M ISC1 ####NON-INTERFACED REF LABSCLIA SEE SCANNED RESULTS [facility] 08-01-2022 [facility] Normal [facility] CNPNon 07-25-2022 [facility] Family Medicine Office/Clini c Noteon 07-25-2022 Family Medicine Office/Clinic Note HPI Staff Bustos is a 36 year old female who presents for a follow up. She reports she was recently diagnosed with Stiff person's syndrome by her neurologist at [facility]. She has been having frequent episodes of [...] without epileptic activity. She has been frequenting [facility] ER for management of these symptoms [...] 3 months [address] [place] [id number]- Additional Instructions: Problem List/Past Medical History Ongoing [...] mg= 1 tab(s), Oral, BID, 3 refills La Pointe-3 Fish Oil 1000 mg oral capsule, 1000 mg= 1 cap(s), Oral, Daily, 11 refills potassium chloride 10 mEq Cap-ER, 10 mEq= 1 cap(s), Oral, Daily, 2 refills propranolol Trileptal 150 mg Tab, 150 mg= 1 tab(s), Oral, BID, 1 refills Trileptal 150 mg Tab, 150 (more content not included)... Normal [facility] Comment on above: Result Comment: Elec tronically Signed By: Lizy SORIA DO\.tera\Date and Time Signed: 07/25/22 16:55 EDT CNPNon 07-24-2022 CNPN Normal [facility] Consultation Noteon 07-23-19 Consultation Note [id number]:127 Normal [facility] CNPNon 07-18-2022 CNPN Normal [facility] CNDSon 07-16-2022 CNDS Normal [facility] NURSING PROGon 07-16-2022 NURSING PROG Normal [facility] 10OH-Carbazepine SerPl-mCnco n 07-15-2022 10-Hydroxycarbazepin e [Mass/Vol] 3.2 ug/mL Normal 3.0-35.0 [facility] Comment on above: Order Comment: Speci men Type: BLOOD SPECIMENOrdering Facility: [facility] Address: [address] [place] [address] Result Comment: This test was developed and its performance characteristics determined by [facility]'s [facility] Pathology and Laboratory Medicine [place] (-[facility]). It has not been cleared or approved by the FDA. [facility] is regulated under CLIA as qualified to perform high-complexity testing. This test is used for clinical purposes. It should not be regarded as investigational or for research. Performed By: #### 3 1019-3 ####[facility] LABIA [id number] [address] [facility] CBC W Auto Differential pane l (Bld)on 07-15-2022 Basophils (Bld) [#/Vol] 10*3/uL Normal <0.11 [facility] Comment on above: Order Comment: Speci men Type: BLOOD SPECIMENOrdering Facility: [facility] Address: [address] [address] Performed By: #### 5 7021-8 ####[facility] LABIA [id number] [address] [place] Basophils/100 WBC (Bld) 0.2 % Normal [facility] Comment on above: Order Comment: Speci men Type: BLOOD SPECIMENOrdering Facility: [facility] Address: [address] Performed By: #### 5 7021-8 ####[facility] LABCLIA [id number] [place] [address] [place] Differential cell count method Nom (Bld) Auto Normal [facility] Comment on above: Order Comment: Speci men Type: BLOOD SPECIMENOrdering Facility: [facility] Address: [address] Performed By: #### 5 7021-8 ####[facility] LABCLIA [id number] [place] [address] [place] Eosinophils (Bld) [#/Vol] 0.25 10*3/uL Normal <0.46 [facility] Comment on above: Order Comment: Speci men Type: BLOOD SPECIMENOrdering Facility: [facility] Address: [address] Performed By: #### 5 7021-8 ####[facility] LABCLIA [id number] [address] [facility] Eosinophils/100 WBC (Bld) 4.8 % Normal [facility] Comment on above: Order Comment: Speci men Type: BLOOD SPECIMENOrdering Facility: [facility] Address: [address] [place] [address] Performed By: #### 5 7021-8 ####[facility] LABCLIA [id number] [place] [address] [place] Erythrocyte distribution width (RBC) [Ratio] 11.9 % Normal 11.5-15.0 [facility] Comment on above: Order Comment: Speci men Type: BLOOD SPECIMENOrdering Facility: [facility] Address: [address] Performed By: #### 5 7021-8 ####[facility] LABCLIA [id number] [address] [place] Hematocrit (Bld) [Volume fraction] 37.1 % Normal 36.0-46.0 [facility] Comment on above: Order Comment: Speci men Type: BLOOD SPECIMENOrdering Facility: [facility] Address: [address] Performed By: #### 5 7021-8 ####[facility] LABCLIA [id number] [place] [address] [place] Hemoglobin (Bld) [Mass/Vol] 12.6 g/dL Normal 11.5-15.5 [facility] Comment on above: Order Comment: Speci men Type: BLOOD SPECIMENOrdering Facility: [facility] Address: [address] [place], [place] [address] Performed By: #### 5 7021-8 ####[facility] LABIA [id number] [place] [address] [place] Immature granulocytes (Bld) [#/Vol] 10*3/uL Normal <0.10 [facility] Comment on above: Order Comment: Speci men Type: BLOOD SPECIMENOrdering Facility: [facility] Address: [address] [place] [address] Performed By: #### 5 7021-8 ####[facility] LABCLIA [id number] [place] [address] [place] Immature granulocytes/100 WBC (Bld) 0.0 % Normal [facility] Comment on above: Order Comment: Speci men Type: BLOOD SPECIMENOrdering Facility: [facility] Address: [address] [place] [address] Performed By: #### 5 7021-8 ####[facility] LABCLIA [id number] [place] [address] [place] Lymphocytes (Bld) [#/Vol] 2.05 10*3/uL Normal 1.00-4.00 [facility] Comment on above: Order Comment: Speci men Type: BLOOD SPECIMENOrdering Facility: [facility] Address: [address] [place] [address] Performed By: #### 5 7021-8 ####[facility] LABCLIA [id number] [address] STATES OF [facility] Lymphocytes/100 WBC (Bld) 39.0 % Normal [facility] Comment on above: Order Comment: Speci men Type: BLOOD SPECIMENOrdering Facility: [facility] Address: [address] [place] [address] Performed By: #### 5 7021-8 ####[facility] LABIA [id number] [address] STATES OF [facility] MCH (RBC) [Entitic mass] 31.6 pg Normal 26.0-34.0 [facility] Comment on above: Order Comment: Speci men Type: BLOOD SPECIMENOrdering Facility: [facility] Address: [address] [place], [place] [address] Performed By: #### 5 7021-8 ####[facility] LABIA [id number] [address] STATES OF [facility] MCHC (RBC) [Mass/Vol] 34.0 g/dL Normal 30.5-36.0 [facility] Comment on above: Order Comment: Speci men Type: BLOOD SPECIMENOrdering Facility: [facility] Address: [address] [place], [place] [address] Performed By: #### 5 7021-8 ####[facility] LABIA [id number] [address] [place] MCV (RBC) [Entitic vol] 93.0 fL Normal 80.0-100.0 [facility] Comment on above: Order Comment: Speci men Type: BLOOD SPECIMENOrdering Facility: [facility] Address: [address] Performed By: #### 5 7021-8 ####[facility] LABCLIA [id number] [place] [address] [place] Monocytes (Bld) [#/Vol] 0.50 10*3/uL Normal <0.87 [facility] Comment on above: Order Comment: Speci men Type: BLOOD SPECIMENOrdering Facility: [facility] Address: [address] Performed By: #### 5 7021-8 ####[facility] LABCLIA [id number] [place] [address] [place] Monocytes/100 WBC (Bld) 9.5 % Normal [facility] Comment on above: Order Comment: Speci men Type: BLOOD SPECIMENOrdering Facility: [facility] Address: [address] Performed By: #### 5 7021-8 ####[facility] LABCLIA [id number] [place] [address] [place] Neutrophils (Bld) [#/Vol] 2.45 10*3/uL Normal 1.45-7.50 [facility] Comment on above: Order Comment: Speci men Type: BLOOD SPECIMENOrdering Facility: [facility] Address: [address] Performed By: #### 5 7021-8 ####[facility] LABCLIA [id number] [place] [address] [place] Neutrophils/100 WBC (Bld) 46.5 % Normal [facility] Comment on above: Order Comment: Speci men Type: BLOOD SPECIMENOrdering Facility: [facility] Address: [address] Performed By: #### 5 7021-8 ####[facility] LABCLIA [id number] [place] [address] [place] Nucleated RBC (Bld) [#/Vol] 10*3/uL Normal <0.01 [facility] Comment on above: Order Comment: Speci men Type: BLOOD SPECIMENOrdering Facility: [facility] Address: [address] [place] [address] Performed By: #### 5 7021-8 ####[facility] LABIA [id number] [place] [address] [place] Nucleated RBC/100 WBC (Bld) [Ratio] 0.0 /100 WBC Normal [facility] Comment on above: Order Comment: Speci men Type: BLOOD SPECIMENOrdering Facility: [facility] Address: [address] [place], [place] [address] Performed By: #### 5 7021-8 ####[facility] LABIA [id number] [place] [address] [place] Platelet mean volume (Bld) [Entitic vol] 10.2 fL Normal 9.0-12.7 [facility] Comment on above: Order Comment: Speci men Type: BLOOD SPECIMENOrdering Facility: [facility] Address: [address] [place], [place] [address] Performed By: #### 5 7021-8 ####[facility] LABIA [id number] [place] [address] [place] Platelets (Bld) [#/Vol] 209 10*3/uL Normal 150-400 [facility] Comment on above: Order Comment: Speci men Type: BLOOD SPECIMENOrdering Facility: [facility] Address: [address] [place], [place] [address] Performed By: #### 5 7021-8 ####[facility] LABCLIA [id number] [place] [address] [place] RBC (Bld) [#/Vol] 3.99 10*6/uL Normal 3.90-5.20 [facility] Comment on above: Order Comment: Speci men Type: BLOOD SPECIMENOrdering Facility: [facility] Address: [address] [place], [place] [address] Performed By: #### 5 7021-8 ####[facility] LABCLIA [id number] [place] [address] [place] WBC (Bld) [#/Vol] 5.26 10*3/uL Normal 3.70-11.00 [facility] Comment on above: Order Comment: Speci men Type: BLOOD SPECIMENOrdering Facility: [facility] Address: [address] [place], [place] [address] Performed By: #### 5 7021-8 ####[facility] LABCLIA [id number] [place] [address] [place] Comprehensive metabolic 2000 panelon 07-15-2022 Albumin [Mass/Vol] 4.1 g/dL Normal 3.9-4.9 [facility] Comment on above: Order Comment: Speci men Type: BLOOD SPECIMENOrdering Facility: [facility] Address: [address] [place], [place] [address] Performed By: #### 2 4323-8, 13499-7, 2777-1, 3016-3 ####[facility] LABIA [id number] [place] [address] [place] ALP [Catalytic activity/Vol] 66 U/L Normal 34-123 [facility] Comment on above: Order Comment: Speci men Type: BLOOD SPECIMENOrdering Facility: [facility] Address: [address] [place], [place] [address] Performed By: #### 2 4323-8, 65863-6, 2777-1, 3016-3 ####[facility] LABCLIA [id number] [place] [address] [place] ALT [Catalytic activity/Vol] 35 U/L Normal 7-38 [facility] Comment on above: Order Comment: Speci men Type: BLOOD SPECIMENOrdering Facility: [facility] Address: [address] [place] [id number] Performed By: #### 2 4323-8, 36771-3, 2776-, 3016-3 ####[facility] LABCLIA [id number] [address] [address] [place] Anion gap [Moles/Vol] 12 mmol/L Normal 9-18 [facility] Comment on above: Order Comment: Speci men Type: BLOOD SPECIMENOrdering Facility: [facility] Address: [address] [place] [phone] Performed By: #### 2 4323-8, , 2776-, 6-3 ####[facility] LABCLIA [id number] [place] [address] [place] AST [Catalytic activity/Vol] 46 U/L High 13-35 [facility] Comment on above: Order Comment: Speci men Type: BLOOD SPECIMENOrdering Facility: [facility] Address: [address] [place] [address] [place] [phone] Performed By: #### 2 4323-8, , 2776-02, 3016-3 ####[facility] LABCLIA [id number] [place] [address] [place] Bilirubin [Mass/Vol] 0.3 mg/dL Normal 0.2-1.3 [facility] Comment on above: Order Comment: Speci men Type: BLOOD SPECIMENOrdering Facility: [facility] Address: [address] [place] [phone] Performed By: #### 2 4323-8, , 2776-02, 6-3 ####[facility] LABCLIA [id number] [address] [address] [place] Calcium [Mass/Vol] 9.8 mg/dL Normal 8.5-10.2 [facility] Comment on above: Order Comment: Speci men Type: BLOOD SPECIMENOrdering Facility: [facility] Address: [place] [address] Performed By: #### 2 4323-8, 60456-1, 2776-1, 3016-3 ####[facility] LABCLIA [id number] [place] [address] [place] Chloride [Moles/Vol] 102 mmol/L Normal 97-105 [facility] Comment on above: Order Comment: Speci men Type: BLOOD SPECIMENOrdering Facility: [facility] Address: [place] [phone] Performed By: #### 2 4323-8, , 2776-, 6-3 ####[facility] LABCLIA [id number] [place] [address] [place] CO2 [Moles/Vol] 22 mmol/L Normal 22-30 [facility] Comment on above: Order Comment: Speci men Type: BLOOD SPECIMENOrdering Facility: [facility] Address: [address] Performed By: #### 2 4323-8, , 2776-1, 6-3 ####[facility] LABCLIA [id number] [place] [address] [place] Creatinine [Mass/Vol] 0.92 mg/dL Normal 0.58-0.96 [facility] Comment on above: Order Comment: Speci men Type: BLOOD SPECIMENOrdering Facility: [facility] Address: [place] [address] Performed By: #### 2 4323-8, 06084-4, 2776-1, 3016-3 ####[facility] LABCLIA [id number] [address] [address] [place] ESTIMATED GLOMERULAR FILTRATION RATE 83 mL/min/1.73m??? Normal >=60 [facility] Comment on above: Order Comment: Mani dia Type: BLOOD SPECIMENOrdering Facility: [facility] Address: [address] [place] [address] Result Comment: Breana mated Glomerular Filtration Rate [...] actual GFR. Performed By: #### 2 4323-8, 11723-3, 277-1, 6-3 ####[facility] LABIA [id number] [place] [address] [place] Glucose [Mass/Vol] 74 mg/dL Normal 74-99 [facility] Comment on above: Order Comment: Mani dia Type: BLOOD SPECIMENOrdering Facility: [facility] Address: [address] [place] [address] Result Comment: The [place] [employer] (ADA) provides guidance for cutoff [...] Standards of Medical Care in Diabetes 2016, [place] [employer]. Diabetes Care. 2016.39(Suppl 1). Performed By: #### 2 4323-8, 30513-4, 7-1, 6-3 ####[facility] LABIA [id number] [address] [address] [place] Potassium [Moles/Vol] 3.9 mmol/L Normal 3.7-5.1 [facility] Comment on above: Order Comment: Speci men Type: BLOOD SPECIMENOrdering Facility: [facility] Address: [address] [place] [phone] Performed By: #### 2 4323-8, 12653-3, 2776-1, 6-3 ####[facility] LABCLIA [id number] [place] [address] [place] Protein [Mass/Vol] 7.1 g/dL Normal 6.3-8.0 [facility] Comment on above: Order Comment: Speci men Type: BLOOD SPECIMENOrdering Facility: [facility] Address: [address] [place], [place] [address] Performed By: #### 2 4323-8, , 2776-02, 3015-3 ####[facility] LABIA [id number] [place] [address] [place] Sodium [Moles/Vol] 136 mmol/L Normal 136-144 [facility] Comment on above: Order Comment: Speci men Type: BLOOD SPECIMENOrdering Facility: [facility] Address: [address] [place], [place] [address] Performed By: #### 2 4323-8, 30805-3, 2776-02, 6-3 ####[facility] LABIA [id number] [place] [address] [place] Urea nitrogen [Mass/Vol] 19 mg/dL Normal 7-21 [facility] Comment on above: Order Comment: Speci men Type: BLOOD SPECIMENOrdering Facility: [facility] Address: [address] [place] [phone] Performed By: #### 2 4323-8, 61801-8, 2776-, 6-3 ####[facility] LABCLIA [id number] [place] [address] [place] Magnesium SerPl-mCncon 07-15 Magnesium [Mass/Vol] 1.9 mg/dL Normal 1.7-2.3 [facility] Comment on above: Order Comment: Mani dia Type: BLOOD SPECIMENOrdering Facility: [facility] Address: [address] [place] [address] Performed By: #### 2 4323-8, 45005-0, 2777-1, 3016-3 ####[facility] LABCLIA [id number] [place] [address] [place] PT panel Coag (PPP)on 2022 INR Coag (PPP) [Relative time] 0.9 {INR} Normal 0.9-1.3 [facility] Comment on above: Order Comment: Mani dia Type: BLOOD SPECIMENOrdering Facility: [facility] Address: [address] [place] [address] Result Comment: Zakia min K Antagonist (VKA) Therapeutic Range: INR 2 to 3 (Target INR of 2.5)Note: For patients treated with VKA drugs, such as warfarin, the [place] [employer] 2012 Guideline recommends [...] 70: 252-289 Performed By: #### 3 4528-0, 92260-7 ####[facility] LABCLIA [id number] [place] [address] [place] PT Coag (PPP) [Time] 9.8 s Normal 9.7-13.0 [facility] Comment on above: Order Comment: Specemma dia Type: BLOOD SPECIMENOrdering Facility: [facility] Address: [address] [place] [address] Performed By: #### 3 4528-0, 52358-1 ####[facility] LABCLIA [id number] [place] [address] [place] [facility] Phosphate SerPl-mCncon 07-15 Phosphate [Mass/Vol] 3.9 mg/dL Normal 2.7-4.8 [facility] Comment on above: Order Comment: Specemma dia Type: BLOOD SPECIMENOrdering Facility: [facility] Address: [address] [place] [address] Performed By: #### 2 4323-8, 31443-4, 2777-1, 6-3 ####[facility] LABCLIA [id number] [address] [place] TSH SerPl-aCncon 07-15-2022 TSH Qn 3.370 m[IU]/L Normal 0.270-4.20 0 [facility] Comment on above: Order Comment: Mani dia Type: BLOOD SPECIMENOrdering Facility: [facility] Address: [address] [place] [address] Result Comment: If t he patient is , TSH reference range varies by gestational period:First Trimester (weeks 9-12): 0.180-2.990 mIU/LSecond Trimester: 0.110-3.980 mIU/LThird Trimester: 0.480-4.710 mIU/Pia Castaneda et al. A Practical Approach for the Verifications and Determination of Site- and Trimester-Specific Reference Intervals for Thyroid Function tests in . Thyroid, 2019:29:3:412-420. Khoi E, et al. 2017 Guidelines of the [place] Thy[employer] for the Diagnosis and Management of Thyroid Disease during and the . Thyroid, 2017:27:3:315-389. Performed By: #### 2 4323-8, 01067-5, 2777-1, 3016-3 ####[facility] LABCLIA [id number] [place] [address] [place] Urinalysis complete panel (U )on 07-15-2022 Bilirubin Ql (U) Negative Normal Negative [facility] Comment on above: Order Comment: Speci men Type: URINE SPECIMENOrdering Facility: [facility] Address: [address] [place] [address] Performed By: #### 2 4356-8 ####[facility] LABIA [id number] [place] [address] [place] Clarity (Unsp spec) Clear Normal Clear [facility] Comment on above: Order Comment: Speci men Type: URINE SPECIMENOrdering Facility: [facility] Address: [address] [place] [address] Performed By: #### 2 4356-8 ####[facility] [id number] [address] OF [facility] Color (U) Light Yellow Normal Yellow [facility] Comment on above: Order Comment: Speci men Type: URINE SPECIMENOrdering Facility: [facility] Address: [address] [place] [address] Performed By: #### 2 4356-8 ####[facility] LABIA [id number] [place] [address] [place] Epithelial cells LM.HPF (Urine sed) [#/Area] Few Normal [facility] Comment on above: Order Comment: Speci men Type: URINE SPECIMENOrdering Facility: [facility] Address: [address] [place] [address] Performed By: #### 2 4356-8 ####[facility] LABIA [id number] [place] [address] [place] Glucose Test strip (U) [Mass/Vol] Negative Normal Trace, Negative [facility] Comment on above: Order Comment: Speci men Type: URINE SPECIMENOrdering Facility: [facility] Address: [address] Performed By: #### 2 4356-8 ####[facility] LABCLIA [id number] [place] [address] [place] Hemoglobin Ql (U) Negative Normal Negative, Trace [facility] Comment on above: Order Comment: Speci men Type: URINE SPECIMENOrdering Facility: [facility] Address: [address] [place] [address] Performed By: #### 2 4356-8 ####[facility] LABCLIA [id number] [place] [address] [place] Ketones Ql (U) 1+ Abnormal Trace, Negative [facility] Comment on above: Order Comment: Speci men Type: URINE SPECIMENOrdering Facility: [facility] Address: [address] [place] [address] Performed By: #### 2 4356-8 ####[facility] LABIA [id number] [place] [address] [place] Leukocyte esterase Test strip Ql (U) Negative Normal Negative, 25 Marcella/uL [facility] Comment on above: Order Comment: Speci men Type: URINE SPECIMENOrdering Facility: [facility] Address: [address] [place] [address] Performed By: #### 2 4356-8 ####[facility] LABCLIA [id number] [place] [address] [place] Nitrite Ql (U) Negative Normal Negative [facility] Comment on above: Order Comment: Speci men Type: URINE SPECIMENOrdering Facility: [facility] Address: [address] [place], [place] [address] Performed By: #### 2 4356-8 ####[facility] LABCLIA [id number] [place] [address] [place] pH (U) 5.5 [pH] Normal 5.0-8.0 [facility] Comment on above: Order Comment: Speci men Type: URINE SPECIMENOrdering Facility: [facility] Address: [address] Performed By: #### 2 4356-8 ####[facility] LABIA [id number] [place] [address] [place] Protein (U) [Mass/Vol] Negative Normal Trace, Negative [facility] Comment on above: Order Comment: Speci men Type: URINE SPECIMENOrdering Facility: [facility] Address: [address] Performed By: #### 2 4356-8 ####[facility] [id number] [place] [address] [place] RBC LM.HPF (Urine sed) [#/Area] 0-3 /HPF Normal 0-3 /HPF [facility] Comment on above: Order Comment: Speci men Type: URINE SPECIMENOrdering Facility: [facility] Address: [address] Performed By: #### 2 4356-8 ####[facility] [id number] [place] [address] [place] Specific gravity (U) [Rel density] 1.019 Normal 1.005-1.03 0 [facility] Comment on above: Order Comment: Speci men Type: URINE SPECIMENOrdering Facility: [facility] Address: [address] Performed By: #### 2 4356-8 ####[facility] [id number] [place] [address] [place] Urobilinogen Ql (U) Negative Normal Negative [facility] Comment on above: Order Comment: Speci men Type: URINE SPECIMENOrdering Facility: [facility] Address: [address] Performed By: #### 2 4356-8 ####[facility] LABIA [id number] [place] [address] [place] WBC LM.HPF (Urine sed) [#/Area] 0-5 /HPF Normal 0-5 /HPF [facility] Comment on above: Order Comment: Speci men Type: URINE SPECIMENOrdering Facility: [facility] Address: [address] [place] [address] Performed By: #### 2 4356-8 ####[facility] [id number] [place] [address] [place] aPTT PPPon 07-15-2022 aPTT Coag (PPP) [Time] 24.5 s Normal 23.0-32.4 [facility] Comment on above: Order Comment: Speci men Type: BLOOD SPECIMENOrdering Facility: [facility] Address: [address] [place] [address] Performed By: #### 3 4528-0, 45694-6 ####[facility] [id number] [address] [place] HCG Preg Ur Qlon 07-14-2022 HCG ( test) Ql (U) Negative Normal Negative [facility] Comment on above: Order Comment: Speci men Type: URINE SPECIMENOrdering Facility: [facility] Address: [address] [place] [address] Result Comment: This test is intended to aid in the early detection of . Very dilute urine samples, as indicated by a low specific gravity, may not contain underwriting service representative levels of hCG. This test detects [...] for . Performed By: #### 2 106-3 ####[facility] LABCLIA [id number] [place] [address] [place] HISTORY PHYSICALon 3 HISTORY PHYSICAL Normal [facility] TOX SCREEN ROUT URon 023 Amphetamines Confirm (U) [Mass/Vol] Negative Normal Negative [facility] Comment on above: Order Comment: Speci men Type: URINE SPECIMENOrdering Facility: [facility] Address: [address] [place] [address] Result Comment: Cuto ff threshold at 1000 ng/mL. Performed By: #### U TOX2 ####[facility] LABIA [id number] [place] [address] [place] BARBITURATES, URINE Negative Normal Negative [facility] Comment on above: Order Comment: Speci men Type: URINE SPECIMENOrdering Facility: [facility] Address: [address] [place] [address] Result Comment: Cuto ff threshold at 200 ng/mL. Performed By: #### U TOX2 ####[facility] LABCLIA [id number] [place] [address] [place] BENZODIAZEPINES, UR Negative Normal Negative [facility] Comment on above: Order Comment: Speci men Type: URINE SPECIMENOrdering Facility: [facility] Address: [address] [place] [address] Result Comment: Cuto ff threshold at 200 ng/mL. Performed By: #### U TOX2 ####[facility]CLIA [id number] [place] [address] [place] CANNABINOIDS,URINE Positive Abnormal Negative [facility] Comment on above: Order Comment: Speci men Type: URINE SPECIMENOrdering Facility: [facility] Address: [address] [place] [address] Result Comment: Cuto ff threshold at 50 ng/mL. Performed By: #### U TOX2 ####[facility] [id number] [place] [address] [place] Cocaine Ql (U) Negative Normal Negative [facility] Comment on above: Order Comment: Speci men Type: URINE SPECIMENOrdering Facility: [facility] Address: [address] [place] [address] Result Comment: Cuto ff threshold at 300 ng/mL. Performed By: #### U TOX2 ####[facility] [id number] [place] [address] [place] Ethanol (U) [Mass/Vol] 87 mg/dL High <11 [facility] Comment on above: Order Comment: Speci men Type: URINE SPECIMENOrdering Facility: [facility] Address: [address] [place] [address] Performed By: #### U TOX2 ####[facility] [id number] [place] [address] [place] Opiates Screen Ql (U) Negative Normal Negative [facility] Comment on above: Order Comment: Speci men Type: URINE SPECIMENOrdering Facility: [facility] Address: [address] [place] [address] Result Comment: Cuto ff threshold at 300 ng/mL. Performed By: #### U TOX2 ####[facility] [id number] [place] [address] [place] oxyCODONE cutoff Screen (U) [Mass/Vol] Negative Normal Negative [facility] Comment on above: Order Comment: Speci men Type: URINE SPECIMENOrdering Facility: [facility] Address: [address] [place] [address] Result Comment: Cuto ff threshold at 100 ng/mL. Performed By: #### U TOX2 ####[facility] [id number] [place] [address] [place] Phencyclidine Ql (U) Negative Normal Negative [facility] Comment on above: Order Comment: Speci men Type: URINE SPECIMENOrdering Facility: [facility] Address: [address] [id number] Result Comment: Cuto ff threshold at 25 ng/mL. Performed By: #### U TOX2 ####[facility] [id number] [facility] [place] [address] [place] CNPNon 07-13-2022 CNPN Normal [facility] CNPNon 07-11-2022 CNPN Normal [facility] CNPNon 07-05-2022 CNPN Normal [facility] CNOVon 07-03-2022 CNOV Normal [facility] CNPNon 06-29-2022 CNPN Normal [facility] CNOVon 06-27-2022 CNOV Normal [facility] Retail - Clinical Noteon Retail - Clinical Note [id number]:127 Normal [facility] CNPNon 05-11-2022 CNPN Normal [facility] Consultation Noteon 04-18-19 23 Consultation Note [id number]#[id number]:127 Normal [facility] Medication Consenton 023 Medication Consent [id number]#[id number]:127 Normal [facility] Ambulatory Visit Summaryon 0 04-17-2022 Ambulatory Visit [...] 50 mg Tab) omega-3 polyunsaturated fatty acids ([place] Pointe-3 Fish Oil 1000 mg oral capsule) ondansetron (Zofran ODT 4 mg Tab-Dis) oxcarbazepine (Trileptal 150 mg Tab) oxcarbazepine (Trileptal 150 mg Tab) potassium chloride (potassium chloride 10 mEq Cap-ER) propranolol [Image Removed: STOP]Stop taking these medications dexmethylphenidate (Focalin XR 20 mg oral capsule, extended release) fluticasone nasal (fluticasone 0.05 mg/inh Nasal [place]) Procedures Performed Esophagogastroduodenoscopy (01/02/2022), EGD (esophagogastroduodenoscopy ) [...] FAM When: In 6 months Where: [address] [facility] [address] [place] [address]- Medications What How Much When Why [...] or concerns Unchanged omega-3 polyunsaturated fatty acids (La Pointe-3 Fish Oil 1000 mg oral capsule) 1 [...] fluticasone nasal (fluticasone 0.05 mg/ inh Nasal [place]) 2 Sprays Nasal Inhalation Every day each nostril Allergies Rondec Problems Ongoing - Any problem that you are currently receiving treatment for. Attention deficit disorder (ADD) Change in bowel habits Chronic insomnia Chronic kidney disease, stage 2 (mild) Common variable immunodeficiency Generalized anxiety disord (more content not included)... Normal [facility] Family Medicine Office/Clini c Noteon 04-17-2022 Family [...] head trauma. 4. 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 Normal [facility] Comment on above: Result Comment: Elec tronically Signed By: Lizy SORIA DO\.br\Date and Time Signed: 04/17/22 16:28 EST ACETYLCHOLINE REC BINDING AB on 04-13-2022 ACETYLCHOLINE BINDING, QUAL Equivocal Abnormal Negative [facility] Comment on above: Order Comment: Mani dia Type: BLOOD SPECIMEN [facility] Address: [address] [place] [address] Result Comment: Anti -acetylcholine receptor binding antibody test is used as an aid in diagnosis of myasthenia gravis. A negative result cannot exclude myasthenia gravis. Clinical correlation is required. Performed By: #### 1 3926-1, ACHRAB #### [facility] CLIA [id number] [address] [facility] [place] [address] [place] Acetylcholine receptor binding Ab (S) [Moles/Vol] 0.27 nmol/L High <0.21 [facility] Comment on above: Order Comment: Mani dia Type: BLOOD SPECIMEN [facility] Address: [address] [place] [address] Performed By: #### 1 3926-1, ACHRAB #### [facility] CLIA [id number] [address] [place] [address] [place] AMINO ACIDS, PLASMA W/ CONSU LTATIONon 04-13-2022 Alanine [Moles/Vol] 247 umol/L Normal 177-583 [facility] Comment on above: Order Comment: Speci men Type: BLOOD SPECIMEN [facility] Address: [address] [address] Performed By: #### C ARNPL #### [facility] CLIA [id number] [address] [place] Alloisoleucine [Moles/Vol] <1 Normal 0-2 [facility] Comment on above: Order Comment: Speci men Type: BLOOD SPECIMEN [facility] Address: [address] [place] [address] Performed By: #### C ARNPL #### [facility] CLIA [id number] [address] [place] [address] [place] Alpha aminoadipate [Moles/Vol] <1 Normal 0-6 [facility] Comment on above: Order Comment: Speci men Type: BLOOD SPECIMEN [facility] Address: [address] [place] [address] Performed By: #### C ARNPL #### [facility] CLIA [id number] [address] [place] [address] [place] AMINO ACID CONSULTATION, PLASMA Normal [facility] Comment on above: Order Comment: Speci men Type: BLOOD SPECIMEN [facility] Address: [address] [place] [address] Result Comment: This plasma amino acid analysis shows an increased level of taurine and a reduced level of glycine but is not diagnostic of a specific disorder. Reference intervals from Lui Tam, Jerson MG, Hernando JR, and Cr DK: Biochemical Genetics: A Laboratory Manual, Copyright 1989 by [employer] Reference intervals not established for some amino acids. This test was developed and its performance characteristics determined by [facility] Pathology and Laboratory Medicine [place] ([facility] It has not been cleared or approved by the FDA. -[facility] is regulated under CLIA as qualified to perform high complexity testing. This test is used for clinical purposes. It should not be regarded as investigational or for research. Performed By: #### C ARNPL #### [facility] CLIA [id number] [address] [place] [address] OF [facility] AMINO ACIDS REVIEW, PLASMA Reviewed by Kevin Barragan MD, Ph.D ([id number]) [facility] Comment on above: Order Comment: Speci men Type: BLOOD SPECIMEN [facility] Address: [address] [place] [address] Performed By: #### C ARNPL #### [facility] IA [id number] [address] [place] [address] [place] Arginine [Moles/Vol] 54 umol/L Normal 15-128 [facility] Comment on above: Order Comment: Speci men Type: BLOOD SPECIMEN [facility] Address: [address] [place] [address] Performed By: #### C ARNPL #### [facility] CLIA [id number] [address] [place] [address] [place] Asparagine [Moles/Vol] 55 umol/L Normal 35-74 [facility] Comment on above: Order Comment: Speci men Type: BLOOD SPECIMEN [facility] Address: [address] [place] [address] Performed By: #### C ARNPL #### [facility] CLIA [id number] [address] [place] [address] [place] Aspartate [Moles/Vol] 2 umol/L Normal 1-25 [facility] Comment on above: Order Comment: Speci men Type: BLOOD SPECIMEN [facility] Address: [address] [place], [place] Performed By: #### C ARNPL #### [facility] CLIA [id number] [address] [place] [address] [place] Citrulline [Moles/Vol] 22 umol/L Normal 12-55 [facility] Comment on above: Order Comment: Speci men Type: BLOOD SPECIMEN [facility] Address: [address] [phone] Performed By: #### C ARNPL #### [facility] CLIA [id number] [address] [place] [address] [place] Cystine [Moles/Vol] 31 umol/L Normal 5-82 [facility] Comment on above: Order Comment: Speci men Type: BLOOD SPECIMEN [facility] Address: [address] [place] [address] Performed By: #### C ARNPL #### [facility] CLIA [id number] [address] [place] [address] [place] Glutamate [Moles/Vol] 43 umol/L Normal 10-131 [facility] Comment on above: Order Comment: Speci men Type: BLOOD SPECIMEN [facility] Address: [address] [phone] Performed By: #### C ARNPL #### [facility] CLIA [id number] [address] [place] [address] [place] Glutamine [Moles/Vol] 375 umol/L Normal 205-756 [facility] Comment on above: Order Comment: Speci men Type: BLOOD SPECIMEN [facility] Address: [address] [phone] Performed By: #### C ARNPL #### [facility] CLIA [id number] [address] [place] [address] [place] Glycine [Moles/Vol] 133 umol/L Low 151-490 [facility] Comment on above: Order Comment: Speci men Type: BLOOD SPECIMEN [facility] Address: [address] Performed By: #### C ARNPL #### [facility] CLIA [id number] [address] [place] [address] [place] Histidine [Moles/Vol] 76 umol/L Normal 72-124 [facility] Comment on above: Order Comment: Speci men Type: BLOOD SPECIMEN [facility] Address: [address] [place], [place] [address] Performed By: #### C ARNPL #### [facility] CLIA [id number] [address] [place] [address] [place] Hydroxylysine [Moles/Vol] <1 High <=0 [facility] Comment on above: Order Comment: Speci men Type: BLOOD SPECIMEN [facility] Address: [address] [place] [address] Performed By: #### C ARNPL #### [facility] CLIA [id number] [address] [place] [address] [place] Hydroxyproline [Moles/Vol] 6 umol/L Normal 0-53 [facility] Comment on above: Order Comment: Speci men Type: BLOOD SPECIMEN [facility] Address: [address] [place], [place] Performed By: #### C ARNPL #### [facility] CLIA [id number] [address] [place] [address] [place] Isoleucine [Moles/Vol] 73 um/L Normal 30-108 [facility] Comment on above: Order Comment: Speci men Type: BLOOD SPECIMEN [facility] Address: [address] Performed By: #### C ARNPL #### [facility] CLIA [id number] [address] [place] [address] [place] Leucine [Moles/Vol] 132 umol/L Normal 72-201 [facility] Comment on above: Order Comment: Speci men Type: BLOOD SPECIMEN [facility] Address: [address] [address] Performed By: #### C ARNPL #### [facility] CLIA [id number] [address] [place] [address] [place] Lysine [Moles/Vol] 157 umol/L Normal 116-296 [facility] Comment on above: Order Comment: Speci men Type: BLOOD SPECIMEN [facility] Address: [address] [place] [address] Performed By: #### C ARNPL #### [facility] CLIA [id number] [address] [place] [address] [place] Methionine [Moles/Vol] 29 umol/L Normal 10-42 [facility] Comment on above: Order Comment: Speci men Type: BLOOD SPECIMEN [facility] Address: [address] [place], [place] [address] Performed By: #### C ARNPL #### [facility] CLIA [id number] [address] [place] [address] [place] Ornithine [Moles/Vol] 45 umol/L Low 48-195 [facility] Comment on above: Order Comment: Speci men Type: BLOOD SPECIMEN [facility] Address: [address] [place], [place] [address] Performed By: #### C ARNPL #### [facility] CLIA [id number] [address] [place] [address] [place] Phenylalanine [Moles/Vol] 86 umol/L High 35-85 [facility] Comment on above: Order Comment: Speci men Type: BLOOD SPECIMEN [facility]ing [facility] Address: [address] [place], [place] [address] Performed By: #### C ARNPL #### [facility] CLIA [id number] [address] [place] [address] [place] Proline [Moles/Vol] 142 umol/L Normal 97-329 [facility] Comment on above: Order Comment: Speci men Type: BLOOD SPECIMEN [facility]ing [facility] Address: [address] [place], [place] [address] Performed By: #### C ARNPL #### [facility] CLIA [id number] [address] [place] [address] [place] Sarcosine [Moles/Vol] <1 High <=0 [facility] Comment on above: Order Comment: Speci men Type: BLOOD SPECIMEN [facility]ing [facility] Address: [address] [place], [place] [address] Performed By: #### C ARNPL #### [facility] CLIA [id number] [address] [place] [address] [place] Serine [Moles/Vol] 64 umol/L Normal 58-181 [facility] Comment on above: Order Comment: Speci men Type: BLOOD SPECIMEN [facility] Address: [address] [place], [place] [address] Performed By: #### C ARNPL #### [facility] CLIA [id number] [address] [place] [address] [place] Taurine [Moles/Vol] 463 umol/L High 54-210 [facility] Comment on above: Order Comment: Speci men Type: BLOOD SPECIMEN [facility]ing [facility] Address: [address] [place], [place] [address] Performed By: #### C ARNPL #### [facility] CLIA [id number] [address] [place] [address] [place] Threonine [Moles/Vol] 124 umol/L Normal 60-225 [facility] Comment on above: Order Comment: Speci men Type: BLOOD SPECIMEN [facility] Address: [address] [place] [address] Performed By: #### C ARNPL #### [facility] CLIA [id number] [address] [place] [address] [place] Tyrosine [Moles/Vol] 85 umol/L Normal 34-112 [facility] Comment on above: Order Comment: Speci men Type: BLOOD SPECIMEN [facility] Address: [address] [place] [address] Performed By: #### C ARNPL #### [facility] CLIA [id number] [address] [place] [address] [place] Valine [Moles/Vol] 294 umol/L Normal 119-336 [facility] Comment on above: Order Comment: Speci men Type: BLOOD SPECIMEN [facility] Address: [address] [place] [address] Performed By: #### C ARNPL #### [facility] CLIA [id number] [address] [place] [address] [place] C-REACTIVE PROTEIN (CRP)on 0 04-13-2022 CRP [Mass/Vol] 0.3 mg/dL <0.9 mg/dL [facility] CARNITINE FREE/TOTAL, PLASMA on 04-13-2022 C0 [Moles/Vol] 40 umol/L Normal 22-54 [facility] Comment on above: Order Comment: Speci men Type: BLOOD SPECIMEN Ordering Facility: [facility] Address: [address] [place], [place] [address] Performed By: #### C ARNPL #### [facility] CLIA [id number] [address] [place] [address] [place] C0/Total carnitine [Molar fraction] 0.784 Normal 0.700-0.90 0 [facility] Comment on above: Order Comment: Speci men Type: BLOOD SPECIMEN [facility] Address: [address] [place] [address] Result Comment: NOTE : The determination of [...] determined by the Pathology and Laboratory Medicine [place] at the [facility]. The [place].S. Food and Drug Administration has not approved or cleared this test, however, FDA clearance or approval is not currently required for clinical use. Performed By: #### C ARNPL #### [facility] CLIA [id number] [address] [place] [address] [place] Carnitine [Moles/Vol] 51 umol/L Normal 27-68 [facility] Comment on above: Order Comment: Mani dia Type: BLOOD SPECIMEN [facility] Address: [address] [place] [address] Performed By: #### C ARNPL #### [facility] CLIA [id number] [facility] [place] [address] [place] CK CREATINE KINASEon 023 CK [Catalytic activity/Vol] 41 U/L Low 42 - 196 U/L [facility] CK SerPl-cCncon 04-13-2022 CK [Catalytic activity/Vol] 41 U/L Low 42-196 [facility] Comment on above: Order Comment: Mani dia Type: BLOOD SPECIMEN [facility] Address: [address] [place] [address] Performed By: #### C ARNPL #### [facility] CLIA [id number] [address] [place] [address] [place] CNOVon 04-13-2022 CNOV Normal [facility] CRP SerPl-mCncon 04-13-2022 CRP [Mass/Vol] 0.3 mg/dL Normal <0.9 [facility] Comment on above: Order Comment: Speci men Type: BLOOD SPECIMEN Ordering Facility: [facility] Address: [address] [place], [place] [address] Performed By: #### C ARNPL #### [facility] CLIA [id number] [facility] [place] [address] [place] CYTOKINE PANEL 13, SERUMon 0 04-13-2022 INTERFERON GAMMA <4.2 Normal <=4.2 [facility] Comment on above: Order Comment: Speci men Type: BLOOD SPECIMEN [facility]: [facility] Address: [address] [place] [address] Performed By: #### 1 3926-1, ACHRAB #### [facility] CLIA [id number] [address] [place] [address] [place] INTERLEUKIN 1 BETA <6.5 Normal <=6.7 [facility] Comment on above: Order Comment: Speci men Type: BLOOD SPECIMEN Ordering Facility: [facility] Address: [address] [place], [place] [address] Performed By: #### 1 3926-1, ACHRAB #### [facility] CLIA [id number] [address] [place] [address] [place] INTERLEUKIN 10 <2.8 Normal <=2.8 [facility] Comment on above: Order Comment: Speci men Type: BLOOD SPECIMEN Ordering Facility: [facility] Address: [address] [place], [place] [address] Performed By: #### 1 3926-1, ACHRAB #### [facility] CLIA [id number] [address] [place] [address] [place] INTERLEUKIN 12 <1.9 Normal <=1.9 [facility] Comment on above: Order Comment: Speci men Type: BLOOD SPECIMEN Ordering Facility: [facility] Address: [address] [address] Performed By: #### 1 3926-1, ACHRAB #### [facility] CLIA [id number] [address] [place] INTERLEUKIN 13 <1.7 Normal <=2.3 [facility] Comment on above: Order Comment: Speci men Type: BLOOD SPECIMEN [facility] Facility: [facility] Address: [address] [place] [address] Performed By: #### 1 3926-1, ACHRAB #### [facility] CLIA [id number] [address] [place] INTERLEUKIN 17 <1.4 Normal <=1.4 [facility] Comment on above: Order Comment: Speci men Type: BLOOD SPECIMEN [facility] Facility: [facility] Address: [address] [place] [address] Performed By: #### 1 3926-1, ACHRAB #### [facility] CLIA [id number] [address] [place] INTERLEUKIN 2 <2.1 Normal <=2.1 [facility] Comment on above: Order Comment: Speci men Type: BLOOD SPECIMEN Ordering Facility: [facility] Address: [address] [address] Performed By: #### 1 3926-1, ACHRAB #### [facility] CLIA [id number] [address] [place] [address] [place] [facility] [place] INTERLEUKIN 4 (INT4) <2.2 Normal <=2.2 [facility] Comment on above: Order Comment: Speci men Type: BLOOD SPECIMEN Ordering Facility: [facility] Address: [address] [address] Performed By: #### 1 3926-1, ACHRAB #### [facility] CLIA [id number] [address] [place] [address] [place] INTERLEUKIN 5 <2.1 Normal <=2.1 [facility] Comment on above: Order Comment: Speci men Type: BLOOD SPECIMEN [facility] Facility: [facility] Address: [address] [place] [address] Performed By: #### 1 3926-1, ACHRAB #### [facility] CLIA [id number] [address] [place] [address] [place] INTERLEUKIN 6 <2.0 Normal <=2.0 [facility] Comment on above: Order Comment: Speci men Type: BLOOD SPECIMEN [facility]ing Facility: [facility] Address: [address] [place] [address] Performed By: #### 1 3926-1, ACHRAB #### [facility] CLIA [id number] [address] [place] [address] [place] INTERLEUKIN 8 <3.0 Normal <=3.0 [facility] Comment on above: Order Comment: Speci men Type: BLOOD SPECIMEN Ordering Facility: [facility] Address: [address] [place] [address] Performed By: #### 1 3926-1, ACHRAB #### [facility] CLIA [id number] [address] [place] [address] [place] [place] INTERLEUKIN-2 RECEPTOR 261.0 pg/mL Normal 175.3-858. 2 [facility] Comment on above: Order Comment: Speci men Type: BLOOD SPECIMEN Ordering Facility: [facility] Address: [address] [place] [address] Performed By: #### 1 3926-1, ACHRAB #### [facility] CLIA [id number] [address] [place] [address] [place] TUMOR NECROSIS FACTOR - ALPHA 6.4 pg/mL Normal <=7.2 [facility] Comment on above: Order Comment: Speci men Type: BLOOD SPECIMEN Ordering Facility: [facility] Address: [address] [place] [address] Result Comment: INTE RPRETIVE INFORMATION: Cytokines Results are used to understand the pathophysiology of immune, infectious, or inflammatory disorders, or may be used for research purposes. This test was developed and its performance characteristics determined by [facility]. It has not been cleared or approved by the [place] Food and Drug Administration. This test was performed in a CLIA certified laboratory and is intended for clinical purposes. Performed By: [facility] [address] [place] [address] [employer] Lieutenant: Phan Beard MD, PhD Performed By: #### 1 3926-1, ACHRAB #### [facility] CLIA [id number] [address] [place] [address] [place] ESR Westergren method (Bld) [Velocity]on 04-13-2022 ESR (Bld) [Velocity] 10 mm/h Normal 0-20 [facility] Comment on above: Order Comment: Speci men Type: BLOOD SPECIMEN Ordering Facility: [facility] Address: [address] [place] [address] Performed By: #### C ARNPL #### [facility] CLIA [id number] [address] [place] [address] [place] ESTROGEN FRACTION BLon 04-13 ESTRADIOL 230.6 pg/mL Normal [facility] Comment on above: Order Comment: Speci men Type: BLOOD SPECIMEN Ordering Facility: [facility] Address: [address] [place] [address] Result Comment: REFE RENCE INTERVAL: Estradiol by [employer] For a complete set of all established reference intervals, refer to ltd[employer]/Tests/Pub/[id number]. This test was developed and its performance characteristics determined by [facility]. It has not been cleared or approved by the [place] Food and Drug Administration. This test was performed in a CLIA certified laboratory and is intended for clinical purposes. Performed By: #### C ARNPL #### [facility] CLIA [id number] [address] [place] [address] [place] ESTROGENS TOTAL 354.3 pg/mL Normal [facility] Comment on above: Order Comment: Speci men Type: BLOOD SPECIMEN Ordering Facility: [facility] Address: [address] [place] [address] Result Comment: Refe rence interval of estrogens (pg/mL) Estrone Estradiol Total Estrogens Early follicular <150.0 30.0-100.0 30.0-250.0 Late follicular 100.0-250.0 100.0-400.0 200.0-650.0 Luteal <200.0 50.0-150.0 50.0-350.0 Post-menopausal 3.0-32.0 2.0-21.0 5.0-52.0 REFERENCE INTERVAL: Estrogens Total Calculation For a complete set of all established reference intervals, refer to [employer]/Tests/Pub/[id number]. Performed By: [facility] [address] [place] [address] [employer] Lieutenant: Phan Beard MD, PhD Performed By: #### C ARNPL #### [facility] CLIA [id number] [address] [place] [address] [place] ESTRONE 123.7 pg/mL Normal [facility] Comment on above: Order Comment: Speci men Type: BLOOD SPECIMEN Ordering Facility: [facility] Address: [address] [place] [address] Result Comment: INTERPRETIVE INFORMATION: Estrone by [employer] For a complete set of all established reference intervals, refer to [employer]/Tests/Pub/[id number]. This test was developed and its performance characteristics determined by [facility]. It has not been cleared or approved by the [place] Food and Drug Administration. This test was performed in a CLIA certified laboratory and is intended for clinical purposes. Performed By: #### C ARNPL #### [facility] CLIA [id number] [address] [place] [address] [place] GAD65 Ab Ser-aCncon 04-13-19 Glutamate decarboxylase 65 Ab Qn (S) >120.0 High <=5.0 [facility] Comment on above: Order Comment: Mani dia Type: BLOOD SPECIMEN Ordering Facility: [facility] Address: [address] [place] [address] Result Comment: Anti -glutamic acid decarboxylase antibody [...] Performed By: #### 1 3926-1, ACHRAB #### [facility] CLIA [id number] [address] [place] [address] [place] Glutamate decarboxylase 65 A b Qn (S)on 04-13-2022 GLUTAMIC ACID DECARBOXYLAS AB QUALITATIVE Positive Abnormal Negative [facility] Comment on above: Order Comment: Mani dia Type: BLOOD SPECIMEN Ordering Facility: [facility] Address: [address] [place] [address] Performed By: #### 1 3926-1, ACHRAB #### [facility] CLIA [id number] [address] [place] [address] [place] HbA1c (Bld)on 04-13-2022 Average glucose Estimated from glycated hemoglobin (Bld) [Mass/Vol] 82 mg/dL Normal [facility] Comment on above: Order Comment: Mani dia Type: BLOOD SPECIMEN Ordering Facility: [facility] Address: [address] [place] [address] Result Comment: eAG: (Estimated average glucose) is a calculated value from HgbA1c and is underwriting service representative of the average blood glucose level in the last 2-3 month period. Performed By: #### 5 5454-3 #### [facility] CLIA [id number] [address] [place] [address] [place] HbA1c (Bld) [Mass fraction] 4.5 % Normal 4.3-5.6 [facility] Comment on above: Order Comment: Speci men Type: BLOOD SPECIMEN Ordering Facility: [facility] Address: [address] [place] [address] Result Comment: Amer [place] Diabetes Association guidelines indicate that patients with HgbA1c in the range 5.7-6.4% are at increased risk for development of diabetes, and intervention by lifestyle modification may be beneficial. HgbA1c greater or equal to 6.5% is considered diagnostic of diabetes. Performed By: #### 5 5454-3 #### [facility] CLIA [id number] [address] [place] [address] [place] IgA SerPl-mCncon 04-13-2022 IgA [Mass/Vol] 84 mg/dL Normal 70-400 [facility] Comment on above: Order Comment: Speci men Type: BLOOD SPECIMEN Ordering Facility: [facility] Address: [address] [place] [address] Performed By: #### 2 458-8, 2465-3, 6209 #### [facility] CLIA [id number] [address] [place] [address] [place] IgG SerPl-mCncon 04-13-2022 IgG [Mass/Vol] 2004 mg/dL High 700-1600 [facility] Comment on above: Order Comment: Speci men Type: BLOOD SPECIMEN Ordering Facility: [facility] Address: [address] [place] [address] Performed By: #### 2 458-8, 2465-3, 9 #### [facility] CLIA [id number] [address] [place] [address] [place] IgM SerPl-mCncon 04-13-2022 IgM [Mass/Vol] mg/dL Low 40-230 [facility] Comment on above: Order Comment: Speci men Type: BLOOD SPECIMEN Ordering Facility: [facility] Address: [address] [place] [address] Result Comment: Resu lt rechecked. Performed By: #### 2 458-8, 2465-3, 1569 #### [facility] CLIA [id number] [address] [place] [address] [place] LDH SerPl-cCncon 04-13-2022 LDH [Catalytic activity/Vol] 141 U/L Normal 135-214 [facility] Comment on above: Order Comment: Speci men Type: BLOOD SPECIMEN Ordering Facility: [facility] Address: [address] [place], [place] [address] Performed By: #### 2 532-0, 3024-7 #### [facility] IA [id number] [address] [place] [address] [place] No Panel Informationon 04-13 [facility] ORGANIC ACIDS UR, QUANT W/CO NSULTon 04-13-2022 2-Hydroxyglutarate/C reatinine (U) [Molar ratio] 5.3 umol/mmolCr Normal 0.6-17.7 [facility] Comment on above: Order Comment: Speci men Type: BLOOD SPECIMEN Ordering Facility: [facility] Address: [address] [place], [place] [address] Performed By: #### C ARNPL #### [facility] IA [id number] [address] [place] [address] [place] 2-Hydroxyisovalerate /Creatinine (U) [Molar ratio] 0.1 umol/mmolCr Normal 0.0-0.1 [facility] Comment on above: Order Comment: Speci men Type: BLOOD SPECIMEN Ordering Facility: [facility] Address: [address] [place], [place] [address] Performed By: #### C ARNPL #### [facility] IA [id number] [address] [place] [address] [place] 3-Hekylv-5-hydroxybu tyrate (C5-OH)/Creatinine (U) [Molar ratio] <0.6 Normal 0.0-1.3 [facility] Comment on above: Order Comment: Speci men Type: BLOOD SPECIMEN Ordering Facility: [facility] Address: [address] Performed By: #### C ARNPL #### [facility] [place] [id number] [address] [place] [address] [place] 2-Methylbutyrylglyci ne/Creatinine (U) [Molar ratio] 0.1 umol/mmolCr Normal 0.0-0.4 [facility] Comment on above: Order Comment: Speci men Type: BLOOD SPECIMEN Ordering Facility: [facility] Address: [address] Performed By: #### C ARNPL #### [facility] IA [id number] [address] [place] [address] [place] 2-Methylcitrate/Crea tinine (U) [Molar ratio] 1.8 umol/mmolCr Normal 1.0-13.9 [facility] Comment on above: Order Comment: Speci men Type: BLOOD SPECIMEN Ordering Facility: [facility] Address: [address] Performed By: #### C ARNPL #### [facility] IA [id number] [address] [place] [address] [place] 2-Oxoadipate/Creatin ine (U) [Molar ratio] <1.6 Normal 0.0-3.3 [facility] Comment on above: Order Comment: Speci men Type: BLOOD SPECIMEN Ordering Facility: [facility] Address: [address] Performed By: #### C ARNPL #### [facility] IA [id number] [address] [place] [address] [place] 3-Hydroxyglutarate/C reatinine (U) [Molar ratio] 0.0 umol/mmolCr Normal 0.0-0.7 [facility] Comment on above: Order Comment: Speci men Type: BLOOD SPECIMEN Ordering Facility: [facility] Address: [address] [place], [place] [address] Performed By: #### C ARNPL #### [facility] IA [id number] [address] [place] [address] 3-Hydroxyisovalerate /Creatinine (U) [Molar ratio] 8.4 umol/mmolCr Normal 2.1-27.3 [facility] Comment on above: Order Comment: Speci men Type: BLOOD SPECIMEN Ordering Facility: [facility] Address: [address] [place] [address] Performed By: #### C ARNPL #### [facility] IA [id number] [address] [place] [address] [place] 3-Methylcrotonylglyc ine/Creatinine (U) [Molar ratio] <0.3 Normal <0.3 [facility] Comment on above: Order Comment: Speci men Type: BLOOD SPECIMEN Ordering Facility: [facility] Address: [address] [place] [address] Performed By: #### C ARNPL #### [facility] IA [id number] [address] [place] [address] [place] 3-Methylglutaconate/ Creatinine (U) [Molar ratio] 0.2 umol/mmolCr Normal 0.0-2.0 [facility] Comment on above: Order Comment: Speci men Type: BLOOD SPECIMEN Ordering Facility: [facility] Address: [address] [place], [place] Performed By: #### C ARNPL #### [facility] IA [id number] [address] [place] [address] [place] 3-Methylglutarate/Cr eatinine (U) [Molar ratio] 0.1 umol/mmolCr Normal 0.0-0.6 [facility] Comment on above: Order Comment: Speci men Type: BLOOD SPECIMEN Ordering Facility: [facility] Address: [address] [place] [address] Performed By: #### C ARNPL #### [facility] CLIA [id number] [address] [place] [address] [place] 4-Hydroxyphenylaceta te/Creatinine (U) [Molar ratio] 31.1 umol/mmolCr Normal 5.7-147.5 [facility] Comment on above: Order Comment: Speci men Type: BLOOD SPECIMEN Ordering Facility: [facility] Address: [address] Performed By: #### C ARNPL #### [facility] CLIA [id number] [address] [place] [address] [place] 4-Hydroxyphenyllacta te/Creatinine (U) [Molar ratio] 12.2 umol/mmolCr Normal 1.3-23.0 [facility] Comment on above: Order Comment: Speci men Type: BLOOD SPECIMEN Ordering Facility: [facility] Address: [address] [place], [place] [address] Performed By: #### C ARNPL #### [facility] CLIA [id number] [address] [place] [address] [place] 4-Hydroxyphenylpyruv ate/Creatinine (U) [Molar ratio] 0.0 umol/mmolCr Normal <=0.0 [facility] Comment on above: Order Comment: Speci men Type: BLOOD SPECIMEN Ordering Facility: [facility] Address: [address] Performed By: #### C ARNPL #### [facility] CLIA [id number] [address] [place] [address] [place] 5-Oxoproline/Creatin ine (U) [Molar ratio] 1.6 umol/mmolCr Normal 0.4-3.1 [facility] Comment on above: Order Comment: Speci men Type: BLOOD SPECIMEN Ordering Facility: [facility] Address: [address] [place], [place] [address] Performed By: #### C ARNPL #### [facility] CLIA [id number] [address] [place] [address] [place] Acetoacetate/Creatin ine (U) [Molar ratio] <0.9 High 0.0-0.5 [facility] Comment on above: Order Comment: Speci men Type: BLOOD SPECIMEN Ordering Facility: [facility] Address: [address] [place] [address] Performed By: #### C ARNPL #### [facility] CLIA [id number] [address] [place] [address] [place] Aconitate/Creatinine (U) [Molar ratio] 29.9 umol/mmolCr Normal 8.5-109.6 [facility] Comment on above: Order Comment: Speci men Type: BLOOD SPECIMEN Ordering Facility: [facility] Address: [address] [place] [address] Performed By: #### C ARNPL #### [facility] IA [id number] [address] [place] [address] [place] Adipate/Creatinine (U) [Molar ratio] 2.2 umol/mmolCr Normal 0.3-9.2 [facility] Comment on above: Order Comment: Speci men Type: BLOOD SPECIMEN Ordering Facility: [facility] Address: [address] [place], [place] [address] Performed By: #### C ARNPL #### [facility] IA [id number] [address] [place] [address] [place] Alpha hydroxybutyrate/Crea tinine (U) [Molar ratio] 1.1 umol/mmolCr Normal 0.0-2.7 [facility] Comment on above: Order Comment: Speci men Type: BLOOD SPECIMEN Ordering Facility: [facility] Address: [address] [place], [place] [address] Performed By: #### C ARNPL #### [facility] IA [id number] [address] [place] [address] [place] Alpha ketoglutarate/Creati nine (U) [Molar ratio] 3.1 umol/mmolCr Normal 0.2-42.7 [facility] Comment on above: Order Comment: Speci men Type: BLOOD SPECIMEN Ordering Facility: [facility] Address: [address] [place] [address] Performed By: #### C ARNPL #### [facility] CLIA [id number] [address] [place] [address] [place] Benzoate/Creatinine (U) [Molar ratio] <12.2 Normal 0.0-14.6 [facility] Comment on above: Order Comment: Speci men Type: BLOOD SPECIMEN Ordering Facility: [facility] Address: [address] [place] [address] Performed By: #### C ARNPL #### [facility] CLIA [id number] [address] [place] [address] [place] Beta hydroxybutyrate/Crea tinine (U) [Molar ratio] <1.6 Normal 0.1-2.6 [facility] Comment on above: Order Comment: Speci men Type: BLOOD SPECIMEN Ordering Facility: [facility] Address: [address] [place], [place] [address] Performed By: #### C ARNPL #### [facility] [place] [id number] [address] [place] [address] OF [facility] Butyrylglycine/Creat inine (U) [Molar ratio] 0.0 umol/mmolCr Normal 0.0-0.7 [facility] Comment on above: Order Comment: Speci men Type: BLOOD SPECIMEN Ordering Facility: [facility] Address: [address] [place], [place] [address] Performed By: #### C ARNPL #### [facility] CLIA [id number] [address] [place] [address] [place] Creatinine (U) [Mass/Vol] 49.5 mg/dL Normal 42.2-237.9 [facility] Comment on above: Order Comment: Speci men Type: BLOOD SPECIMEN Ordering Facility: [facility] Address: [address] Performed By: #### C ARNPL #### [facility] CLIA [id number] [address] [place] [address] [place] Ethylmalonate/Creati nine (U) [Molar ratio] 3.1 umol/mmolCr Normal 0.5-6.2 [facility] Comment on above: Order Comment: Speci men Type: BLOOD SPECIMEN Ordering Facility: [facility] Address: [address] Performed By: #### C ARNPL #### [facility] CLIA [id number] [address] [place] [address] [place] Fumarate/Creatinine (U) [Molar ratio] 0.6 umol/mmolCr Normal 0.3-2.6 [facility] Comment on above: Order Comment: Speci men Type: BLOOD SPECIMEN Ordering Facility: [facility] Address: [address] Performed By: #### C ARNPL #### [facility] CLIA [id number] [address] [place] [address] [place] Glutarate/Creatinine (U) [Molar ratio] 0.2 umol/mmolCr Normal 0.0-1.4 [facility] Comment on above: Order Comment: Speci men Type: BLOOD SPECIMEN Ordering Facility: [facility] Address: [address] [place] [address] Performed By: #### C ARNPL #### [facility] CLIA [id number] [address] [place] [address] [place] Hexanoylglycine/Crea tinine (U) [Molar ratio] <0.1 Normal 0.0-0.1 [facility] Comment on above: Order Comment: Speci men Type: BLOOD SPECIMEN Ordering Facility: [facility] Address: [address] [place] [address] Performed By: #### C ARNPL #### [facility] CLIA [id number] [address] [place] [address] [place] Isobutyrylglycine/Cr eatinine (U) [Molar ratio] 0.5 umol/mmolCr Normal 0.0-1.2 [facility] Comment on above: Order Comment: Speci men Type: BLOOD SPECIMEN Ordering Facility: [facility] Address: [address] [place] [address] Performed By: #### C ARNPL #### [facility] CLIA [id number] [address] [place] [address] [place] Isocitrate/Creatinin e (U) [Molar ratio] 72.2 umol/mmolCr Normal 9.1-271.9 [facility] Comment on above: Order Comment: Speci men Type: BLOOD SPECIMEN Ordering Facility: [facility] Address: [address] [place] [address] Performed By: #### C ARNPL #### [facility] CLIA [id number] [address] [place] [address] [place] Lactate/Creatinine (U) [Molar ratio] 17.7 umol/mmolCr Normal 2.9-47.2 [facility] Comment on above: Order Comment: Speci men Type: BLOOD SPECIMEN Ordering Facility: [facility] Address: [address] [place], [place] Performed By: #### C ARNPL #### [facility] CLIA [id number] [address] [place] [address] [place] Malate/Creatinine (U) [Molar ratio] 0.4 umol/mmolCr Normal 0.0-1.1 [facility] Comment on above: Order Comment: Speci men Type: BLOOD SPECIMEN Ordering Facility: [facility] Address: [address] [place], [place] Performed By: #### C ARNPL #### [facility] CLIA [id number] [address] [place] [address] [place] Malonate/Creatinine (U) [Molar ratio] 0.0 umol/mmolCr Normal 0.0-0.1 [facility] Comment on above: Order Comment: Speci men Type: BLOOD SPECIMEN Ordering Facility: [facility] Address: [address] Performed By: #### C ARNPL #### [facility] CLIA [id number] [address] [place] [address] [place] Methylmalonate/Creat inine (U) [Molar ratio] <0.4 Normal 0.0-0.6 [facility] Comment on above: Order Comment: Speci men Type: BLOOD SPECIMEN Ordering Facility: [facility] Address: [address] [place] [address] Performed By: #### C ARNPL #### [facility] CLIA [id number] [address] [place] [address] [place] Methylsuccinate/Crea tinine (U) [Molar ratio] 0.1 umol/mmolCr Normal 0.0-1.4 [facility] Comment on above: Order Comment: Speci men Type: BLOOD SPECIMEN Ordering Facility: [facility] Address: [address] [place], [place] [address] Performed By: #### C ARNPL #### [facility] IA [id number] [address] [place] [address] [place] N-acetylaspartate/Cr eatinine (U) [Molar ratio] 1.0 umol/mmolCr Normal 0.1-8.9 [facility] Comment on above: Order Comment: Speci men Type: BLOOD SPECIMEN Ordering Facility: [facility] Address: [address] [place] [address] Performed By: #### C ARNPL #### [facility] IA [id number] [address] [place] N-acetyltyrosine/Cre atinine (U) [Molar ratio] 0.3 umol/mmolCr Normal 0.0-1.2 [facility] Comment on above: Order Comment: Speci men Type: BLOOD SPECIMEN Ordering Facility: [facility] Address: [address] [place] [address] Performed By: #### C ARNPL #### [facility] CLIA [id number] [address] [place] [address] [place] Oxalate/Creatinine (U) [Molar ratio] 2.7 umol/mmolCr Normal 0.7-12.4 [facility] Comment on above: Order Comment: Speci men Type: BLOOD SPECIMEN Ordering Facility: [facility] Address: [address] [place] [address] Performed By: #### C ARNPL #### [facility] CLIA [id number] [address] [place] [address] [place] Pyruvate/Creatinine (U) [Molar ratio] 0.2 umol/mmolCr Normal 0.1-2.6 [facility] Comment on above: Order Comment: Speci men Type: BLOOD SPECIMEN Ordering Facility: [facility] Address: [address] [place], [place] [address] Performed By: #### C ARNPL #### [facility] CLIA [id number] [address] [place] [address] [place] Sebacate (C8)/Creatinine (U) [Molar ratio] 0.0 umol/mmolCr Normal [facility] Comment on above: Order Comment: Speci men Type: BLOOD SPECIMEN Ordering Facility: [facility] Address: [address] [place], [place] [address] Performed By: #### C ARNPL #### [facility] CLIA [id number] [address] [place] [address] [place] Suberate/Creatinine (U) [Molar ratio] 1.1 umol/mmolCr Normal 0.0-7.4 [facility] Comment on above: Order Comment: Speci men Type: BLOOD SPECIMEN Ordering Facility: [facility] Address: [id number] Performed By: #### C ARNPL #### [facility] CLIA [id number] [place] Suberylglycine/Creat inine (U) [Molar ratio] 0.0 umol/mmolCr Normal <=0.0 [facility] Comment on above: Order Comment: Speci men Type: BLOOD SPECIMEN Ordering Facility: [facility] Address: [address] Performed By: #### C ARNPL #### [facility] CLIA [id number] [address] [place] [address] [place] Succinate/Creatinine (U) [Molar ratio] 6.3 umol/mmolCr Normal 0.3-27.4 [facility] Comment on above: Order Comment: Speci men Type: BLOOD SPECIMEN Ordering Facility: [facility] Address: [address] Performed By: #### C ARNPL #### [facility] CLIA [id number] [address] [place] [address] [place] Succinylacetone/Crea tinine (U) [Molar ratio] <0.4 Normal <0.4 [facility] Comment on above: Order Comment: Speci men Type: BLOOD SPECIMEN Ordering Facility: [facility] Address: [address] Performed By: #### C ARNPL #### [facility] CLIA [id number] [address] [place] [address] [place] UOA CONSULTATION Normal [facility] Comment on above: Order Comment: Speci men Type: BLOOD SPECIMEN Ordering Facility: [facility] Address: [address] Result Comment: This urine organic acid [...] and its performance characteristics determined by the [facility]. It has not been cleared or approved by the US Food and Drug Administration. The FDA had determined that such clearance or approval is not necessary. Performed By: #### C ARNPL #### [facility] CLIA [id number] [address] [place] [address] [place] UOA REVIEW Reviewed by Jake Mc PhD [facility] Comment on above: Order Comment: Speci men Type: BLOOD SPECIMEN Ordering Facility: [facility] Address: [address] [place] [address] Performed By: #### C ARNPL #### [facility] CLIA [id number] [address] [place] [address] [place] Uracil/Creatinine (U) [Molar ratio] <0.4 Normal 0.0-5.1 [facility] Comment on above: Order Comment: Speci men Type: BLOOD SPECIMEN Ordering Facility: [facility] Address: [address] [address] Performed By: #### C ARNPL #### [facility] CLIA [id number] [address] [place] [address] [place] PLASMA THYMIDINE DETERMINATI ONon 04-13-2022 PLASMA THYMIDINE DETERMINATION View results in Scanned Documents link when available. [facility] Comment on above: Order Comment: Speci men Type: BLOOD SPECIMEN Ordering Facility: [facility] Address: [address] [place] [address] Performed By: #### C ARNPL #### [facility] CLIA [id number] [address] [place] [address] [place] PYRUVATE+LACTATE BLon 2022 Lactate [Moles/Vol] 1.5 mmol/L Normal 0.5-2.2 [facility] Comment on above: Order Comment: Speci men Type: BLOOD SPECIMEN Ordering Facility: [facility] Address: [address] [place] [address] Result Comment: This test was developed and its performance characteristics determined by [facility]'s [facility] Pathology and Laboratory Medicine [place] (-[facility]). It has not been cleared or approved by the FDA. -PLME is regulated under CLIA as qualified to perform high-complexity testing. This test is used for clinical purposes. It should not be regarded as investigational or for research. Performed By: #### C ARNPL #### [facility] [place] [id number] [address] [place] [address] [place] Pyruvate (Bld) [Moles/Vol] Normal [facility] Comment on above: Order Comment: Speci men Type: BLOOD SPECIMEN Ordering Facility: [facility] Address: [address] [place] [address] Result Comment: Unab le to assay. Analytical difficulty Performed By: #### C ARNPL #### [facility] [place] [id number] [address] [place] [address] [place] T4 Free SerPl-mCncon 023 Free T4 [Mass/Vol] 1.2 ng/dL Normal 0.9-1.7 [facility] Comment on above: Order Comment: Speci men Type: BLOOD SPECIMEN Ordering Facility: [facility] Address: [address] [place] [address] Performed By: #### 2 532-0, 3024-7 #### [facility] IA [id number] [address] [place] [address] [place] TSH BLDon 04-13-2022 TSH Qn 2.180 m[IU]/L 0.270 - 4.200 mIU/L [facility] TSH SerPl-aCncon 04-13-2022 TSH Qn 2.180 m[IU]/L Normal 0.270-4.20 0 [facility] Comment on above: Order Comment: Mani dia Type: BLOOD SPECIMEN Ordering Facility: [facility] Address: [address] [id number] Result Comment: If t he patient is , TSH reference range varies by gestational period: First Trimester (weeks 9-12): 0.180-2.990 mIU/L Second Trimester: 0.110-3.980 mIU/L Third Trimester: 0.480-4.710 mIU/L Nathan Castaneda et al. A Practical Approach for the Verifications and Determination of Site- and Trimester-Specific Reference Intervals for Thyroid Function tests in . Thyroid, 2019:29:3:412-420. Khoi Tam, et al. 2017 Guidelines of the [place] Thyroid Association for the Diagnosis and Management of Thyroid Disease during and the . Thyroid, 2017:27:3:315-389. Performed By: #### C ARNPL #### [facility] CLIA [id number] [address] [place] VOLTAGE GATED CA IGGon 04-13 P/Q-TYPE CALCIUM CHANNEL ANTIBODY 13.8 pmol/L Normal 0.0-24.5 [facility] Comment on above: Order Comment: Mani dia Type: BLOOD SPECIMEN Ordering Facility: [facility] Address: [address] [place] [address] Result Comment: INTE RPRETIVE INFORMATION: P/Q-Type Calcium Channel Antibody 0.0 to 24.5 pmol/L ............. Negative 24.6 to 45.6 pmol/L ............ Indeterminate 45.7 pmol/L or greater.......... Positive This test was developed and its performance characteristics determined by [facility]. It has not been cleared or approved by the US Food and Drug Administration. This test was performed in a CLIA certified laboratory and is intended for clinical purposes. Performed By: [facility] [address] [place] [address] [employer]ized [employer] Lieutenant: Phan Beard MD, PhD Performed By: #### C ARNPL #### [facility] CLIA [id number] 9500 [facility] DESK [id number] [place], [place] [id number] [facility] VOLTAGE-GATED POTASSIUM HEARD ABon 04-13-2022 VOLTAGE-GATED POTASSIUM CHANNEL AB, SER 30 pmol/L Normal 0-31 [facility] Comment on above: Order Comment: Speci men Type: BLOOD SPECIMEN Ordering Facility: [facility] Address: [address] [place], [place] [phone] Result Comment: INTE RPRETIVE INFORMATION: Voltage-Gated Potassium [...] developed and its performance characteristics determined by [facility]. It has not been cleared or approved by the US Food and Drug Administration. This test was performed in a CLIA certified laboratory and is intended for clinical purposes. Performed By: [facility] [address] [place] [address] [employer]ized Squad Lieutenant: Phan Beard MD, PhD Performed By: #### V GKCAB #### [facility] CLIA [id number] [address] [place] [address] XR ABDOMEN 1V SUPINEon 04-13 XR ABDOMEN [...] Apr 13 2022 12:13PM EST [id number] Normal [facility] CNPNon 04-12-2022 CNPN Normal [facility] EMG(NEURO/NI)on 04-11-2022 [facility] Lab Reportson 03-16-2022 Lab Reports [id number]:127 Normal [facility] Lab Reports [id number]#[id number]:127 Normal [facility] ALDOLASE BLDon 03-10-2022 Aldolase [Catalytic activity/Vol] 3.4 mU/mL 1.5 - 8.1 U/L [facility] Aldolase SerPl-cCncon 2022 Aldolase [Catalytic activity/Vol] 3.4 mU/mL Normal 1.5-8.1 [facility] Comment on above: Order Comment: Speci men Type: BLOOD SPECIMENOrdering Facility: [facility] Address: [address] [place] [address] Result Comment: This test was developed and its performance characteristics determined by [facility]'s [facility] [place] (RT-[facility]). It has not been cleared or approved by the FDA. [facility] is regulated under CLIA as qualified to perform high-complexity testing. This test is used for clinical purposes. It should not be regarded as investigational or for research. Performed By: #### 1 761-6 ####[facility] [id number] [address] OF [facility] CBC panel Auto (Bld)on 03-10 Erythrocyte distribution width (RBC) [Ratio] 11.8 % Normal 11.5-15.0 [facility] Comment on above: Order Comment: Speci men Type: BLOOD SPECIMENOrdering Facility: [facility] Address: [address] [place] [address] Performed By: #### 5 8410-2 ####[facility] [id number] [address] [place] Hematocrit (Bld) [Volume fraction] 36.0 % Normal 36.0-46.0 [facility] Comment on above: Order Comment: Speci men Type: BLOOD SPECIMENOrdering Facility: [facility] Address: [address] [place] [address] Performed By: #### 5 8410-2 ####[facility] [id number] [address] [facility] Hemoglobin (Bld) [Mass/Vol] 12.6 g/dL Normal 11.5-15.5 [facility] Comment on above: Order Comment: Speci men Type: BLOOD SPECIMENOrdering Facility: [facility] Address: [address] [address] Performed By: #### 5 8410-2 ####[facility] [id number] [address] [place] MCH (RBC) [Entitic mass] 32.6 pg Normal 26.0-34.0 [facility] Comment on above: Order Comment: Speci men Type: BLOOD SPECIMENOrdering Facility: [facility] Address: [address] Performed By: #### 5 8410-2 ####[facility] [id number] [address] [facility] MCHC (RBC) [Mass/Vol] 35.0 g/dL Normal 30.5-36.0 [facility] Comment on above: Order Comment: Speci men Type: BLOOD SPECIMENOrdering Facility: [facility] Address: [address] Performed By: #### 5 8410-2 ####[facility] [id number] [place] [address] [place] MCV (RBC) [Entitic vol] 93.3 fL Normal 80.0-100.0 [facility] Comment on above: Order Comment: Speci men Type: BLOOD SPECIMENOrdering Facility: [facility] Address: [address] Performed By: #### 5 8410-2 ####[facility] [id number] [place] [address] [place] Nucleated RBC (Bld) [#/Vol] 10*3/uL Normal <0.01 [facility] Comment on above: Order Comment: Speci men Type: BLOOD SPECIMENOrdering Facility: [facility] Address: [address] Performed By: #### 5 8410-2 ####[facility] [id number] [place] [address] [place] Platelet mean volume (Bld) [Entitic vol] 9.4 fL Normal 9.0-12.7 [facility] Comment on above: Order Comment: Speci men Type: BLOOD SPECIMENOrdering Facility: [facility] Address: [address] Performed By: #### 5 8410-2 ####[facility] [id number] [place] [address] [place] Platelets (Bld) [#/Vol] 259 10*3/uL Normal 150-400 [facility] Comment on above: Order Comment: Speci men Type: BLOOD SPECIMENOrdering Facility: [facility] Address: [address] [place] [address] Performed By: #### 5 8410-2 ####[facility] [id number] [place] [address] [place] RBC (Bld) [#/Vol] 3.86 10*6/uL Low 3.90-5.20 [facility] Comment on above: Order Comment: Speci men Type: BLOOD SPECIMENOrdering Facility: [facility] Address: [address] [place] [address] Performed By: #### 5 8410-2 ####[facility] [id number] [place] [address] [place] WBC (Bld) [#/Vol] 6.44 10*3/uL Normal 3.70-11.00 [facility] Comment on above: Order Comment: Speci men Type: BLOOD SPECIMENOrdering Facility: [facility] Address: [address] [place] [address] Performed By: #### 5 8410-2 ####[facility] [id number] [place] [address] [place] CK SerPl-cCncon 03-10-2022 CK [Catalytic activity/Vol] 57 U/L Normal 42-196 [facility] Comment on above: Order Comment: Speci men Type: BLOOD SPECIMENOrdering Facility: [facility] Address: [address] [place] [address] Performed By: #### 2 157-6, 92838-0, 2532-0 ####[facility] [id number] [place] [address] [place] CNOVon 03-10-2022 CNOV Normal [facility] Comprehensive metabolic 2000 panelon 03-10-2022 Albumin [Mass/Vol] 4.2 g/dL Normal 3.9-4.9 [facility] Comment on above: Order Comment: Speci men Type: BLOOD SPECIMENOrdering Facility: [facility] Address: [address] [place] [address] Performed By: #### 2 157-6, 63919-1, 2532-0 ####[facility]IA [id number] [place] [address] [place] ALP [Catalytic activity/Vol] 84 U/L Normal 34-123 [facility] Comment on above: Order Comment: Speci men Type: BLOOD SPECIMENOrdering Facility: [facility] Address: [address] [place] [address] Performed By: #### 2 157-6, 11794-0, 2-0 ####[facility]IA [id number] [address] [place] ALT [Catalytic activity/Vol] 37 U/L Normal 7-38 [facility] Comment on above: Order Comment: Speci men Type: BLOOD SPECIMENOrdering Facility: [facility] Address: [address] [place], [place] [address] Performed By: #### 2 157-6, 55842-2, 2532-0 ####[facility]CLIA [id number] [place] [address] [place] Anion gap [Moles/Vol] 11 mmol/L Normal 9-18 [facility] Comment on above: Order Comment: Speci men Type: BLOOD SPECIMENOrdering Facility: [facility] Address: [address] [place], [place] [address] Performed By: #### 2 157-6, 00141-7, 2532-0 ####[facility] LABCLIA [id number] [place] [address] [place] AST [Catalytic activity/Vol] 36 U/L High 13-35 [facility] Comment on above: Order Comment: Speci men Type: BLOOD SPECIMENOrdering Facility: [facility] Address: [address] [place] [address] Performed By: #### 2 157-6, 82377-9, 2532-0 ####[facility] LABCLIA [id number] [place] [address] [place] Bilirubin [Mass/Vol] 0.5 mg/dL Normal 0.2-1.3 [facility] Comment on above: Order Comment: Speci men Type: BLOOD SPECIMENOrdering Facility: [facility] Address: [address] [place] [address] Performed By: #### 2 157-6, 09860-4, 2532-0 ####[facility] LABCLIA [id number] [place] [address] [place] Calcium [Mass/Vol] 9.3 mg/dL Normal 8.5-10.2 [facility] Comment on above: Order Comment: Speci men Type: BLOOD SPECIMENOrdering Facility: [facility] Address: [address] [place], [place] [address] Performed By: #### 2 157-6, 18120-2, 2532-0 ####[facility]CLIA [id number] [place] [address] [place] Chloride [Moles/Vol] 104 mmol/L Normal 97-105 [facility] Comment on above: Order Comment: Speci men Type: BLOOD SPECIMENOrdering Facility: [facility] Address: [address] [place], [place] [address] Performed By: #### 2 157-6, 31782-8, 2532-0 ####[facility] LABCLIA [id number] [place] [address] [place] CO2 [Moles/Vol] 23 mmol/L Normal 22-30 [facility] Comment on above: Order Comment: Speci men Type: BLOOD SPECIMENOrdering Facility: [facility] Address: [address] [address] Performed By: #### 2 157-6, 02097-1, 2-0 ####[facility]CLIA [id number] [place] [address] [place] Creatinine [Mass/Vol] 0.93 mg/dL Normal 0.58-0.96 [facility] Comment on above: Order Comment: Speci men Type: BLOOD SPECIMENOrdering Facility: [facility] Address: [address] [place] [address] Performed By: #### 2 157-6, 84280-5, 2531-0 ####[facility] LABCLIA [id number] [place] [address] [place] [facility] ESTIMATED GLOMERULAR FILTRATION RATE 82 mL/min/1.73m??? Normal >=60 [facility] Comment on above: Order Comment: Speci men Type: BLOOD SPECIMENOrdering Facility: [facility] Address: [address] [place] [address] Result Comment: Breana mated Glomerular Filtration Rate [...] actual GFR. Performed By: #### 2 157-6, 36118-9, 2531-0 ####[facility]CLIA [id number] [place] [address] [place] Glucose [Mass/Vol] 95 mg/dL Normal 74-99 [facility] Comment on above: Order Comment: Speci men Type: BLOOD SPECIMENOrdering Facility: [facility] Address: [address] [address] Result Comment: The [place] Diabetes Association (ADA) provides guidance for cutoff [...] Standards of Medical Care in Diabetes 2016, [place] Diabetes Association. Diabetes Care. 2016.39(Suppl 1). Performed By: #### 2 157-6, 76555-4, 2531-0 ####[facility] LAB[facility]IA [id number] [place] [address] [place] Potassium [Moles/Vol] 3.9 mmol/L Normal 3.7-5.1 [facility] Comment on above: Order Comment: Speci men Type: BLOOD SPECIMENOrdering Facility: [facility] Address: [address] [address] Performed By: #### 2 157-6, 61455-7, 2531-0 ####[facility] [id number] [place] [address] [place] Protein [Mass/Vol] 7.1 g/dL Normal 6.3-8.0 [facility] Comment on above: Order Comment: Speci men Type: BLOOD SPECIMENOrdering Facility: [facility] Address: [address] [id number] Performed By: #### 2 157-6, 31144-4, 2531-0 ####[facility]IA [id number] [place] [address] [place] Sodium [Moles/Vol] 138 mmol/L Normal 136-144 [facility] Comment on above: Order Comment: Speci men Type: BLOOD SPECIMENOrdering Facility: [facility] Address: [address] [place] [address] Performed By: #### 2 157-6, 78948-9, 2532-0 ####[facility] LABCLIA [id number] [place] [address] [place] Urea nitrogen [Mass/Vol] 20 mg/dL Normal 7-21 [facility] Comment on above: Order Comment: Speci men Type: BLOOD SPECIMENOrdering Facility: [facility] Address: [address] [place] [address] Performed By: #### 2 157-6, 59442-5, 2532-0 ####[facility] LABCLIA [id number] [place] [address] [place] LDH SerPl-cCncon 03-10-2022 LDH [Catalytic activity/Vol] 162 U/L Normal 135-214 [facility] Comment on above: Order Comment: Speci men Type: BLOOD SPECIMENOrdering Facility: [facility] Address: [address] [place] [address] Performed By: #### 2 157-6, 31512-2, 2532-0 ####[facility] [id number] [address] [place] MUSK ANTIBODY TESTon 023 MUSK ANTIBODY 0.00 nmol/L Normal 0.00-0.02 [facility] Comment on above: Order Comment: Speci men Type: BLOOD SPECIMENOrdering Facility: [facility] Address: [address] [place] [address] Result Comment: ---- ADDITIONAL INFORMATION This test was developed using an analyte specific reagent.Its performance characteristics were determined by [facility] in a manner consistent with CLIA requirements. [employer] has not been cleared or approved by the U.S. Food andDrug Administration.Test Performed by:[address] [id number] Director: Soy Vela M.D. Ph.D.; CLIA# [id number] Performed By: #### M ####[facility] [id number] [place] [address] CBC W Auto Differential pane l (Bld)on 03-08-2022 Basophils (Bld) [#/Vol] <0.11 k/uL [facility] Basophils/100 WBC (Bld) 0.4 % [facility] Differential cell count method Nom (Bld) Auto [facility] Eosinophils (Bld) [#/Vol] 0.11 10*3/uL <0.46 k/uL [facility] Eosinophils/100 WBC (Bld) 2.2 % [facility] Erythrocyte distribution width (RBC) [Ratio] 11.9 % 11.5 - 15.0 % [facility] Hematocrit (Bld) [Volume fraction] 37.9 % 36.0 - 46.0 % [facility] Hemoglobin (Bld) [Mass/Vol] 13.0 g/dL 11.5 - 15.5 g/dL [facility] Immature granulocytes (Bld) [#/Vol] <0.10 k/uL [facility] Immature granulocytes/100 WBC (Bld) 0.2 % [facility] Lymphocytes (Bld) [#/Vol] 1.88 10*3/uL 1.00 - 4.00 k/uL [facility] Lymphocytes/100 WBC (Bld) 37.8 % [facility] MCH (RBC) [Entitic mass] 31.8 pg 26.0 - 34.0 pg [facility] MCHC (RBC) [Mass/Vol] 34.3 g/dL 30.5 - 36.0 g/dL [facility] MCV (RBC) [Entitic vol] 92.7 fL 80.0 - 100.0 fL [facility] Monocytes (Bld) [#/Vol] 0.39 10*3/uL <0.87 k/uL [facility] Monocytes/100 WBC (Bld) 7.8 % [facility] Neutrophils (Bld) [#/Vol] 2.56 10*3/uL 1.45 - 7.50 k/uL [facility] Neutrophils/100 WBC (Bld) 51.6 % [facility] Nucleated RBC (Bld) [#/Vol] <0.01 k/uL [facility] Nucleated RBC/100 WBC (Bld) [Ratio] 0.0 /100 WBC [facility] Platelet mean volume (Bld) [Entitic vol] 9.6 fL 9.0 - 12.7 fL [facility] Platelets (Bld) [#/Vol] 236 10*3/uL 150 - 400 k/uL [facility] RBC (Bld) [#/Vol] 4.09 10*6/uL 3.90 - 5.20 m/uL [facility] WBC (Bld) [#/Vol] 4.97 10*3/uL 3.70 - 11.00 k/uL [facility] CK CREATINE KINASEon 023 CK [Catalytic activity/Vol] 66 U/L 42 - 196 U/L [facility] Comprehensive metabolic 2000 panelon 03-08-2022 Albumin [Mass/Vol] 4.4 g/dL 3.9 - 4.9 g/dL [facility] ALP [Catalytic activity/Vol] 78 U/L 34 - 123 U/L [facility] ALT [Catalytic activity/Vol] 67 U/L High 7 - 38 U/L [facility] Anion gap [Moles/Vol] 11 mmol/L 9 - 18 mmol/L [facility] AST [Catalytic activity/Vol] 86 U/L High 13 - 35 U/L [facility] Bilirubin [Mass/Vol] 0.4 mg/dL 0.2 - 1 .3 mg/dL [facility] Calcium [Mass/Vol] 9.5 mg/dL 8.5 - 10. 2 mg/dL [facility] Chloride [Moles/Vol] 103 mmol/L 97 - 10 5 mmol/L [facility] CO2 [Moles/Vol] 22 mmol/L 22 - 30 mmol/L [facility] [facility] Creatinine [Mass/Vol] 0.87 mg/dL 0.58 - 0.96 mg/dL [facility] Estimated Glomerular Filtration Rate 89 mL/min/1.73m >=60 mL/min/1.7 3m [facility] Glucose [Mass/Vol] 102 mg/dL High 74 - 99 mg/dL [facility] Potassium [Moles/Vol] 4.1 mmol/L 3.7 - 5.1 mmol/L [facility] Protein [Mass/Vol] 7.8 g/dL 6.3 - 8.0 g/dL [facility] Sodium [Moles/Vol] 136 mmol/L 136 - 144 mmol/L [facility] Urea nitrogen [Mass/Vol] 14 mg/dL 7 - 21 mg/dL [facility] LD LACTATE DEHYDROon 023 LDH [Catalytic activity/Vol] 208 U/L 135 - 214 U/L [facility] RETIC COUNTon 03-08-2022 Reticulocytes (Bld) [#/Vol] 0.35174 10*3/uL 0.018 - 0.100 M/uL [facility] Reticulocytes (Bld) [#/Vol]o n 03-08-2022 Reticulocytes/100 RBC (Bld) 2.2 % High 0.4 - 2.0 % [facility] FERRITIN BLDon 02-18-2022 Ferritin [Mass/Vol] 248.0 ng/mL High 14.7 - 205.1 ng/mL [facility] Iron and Iron binding capaci ty panelon 02-18-2022 Iron [Mass/Vol] 96 ug/dL 41 - 186 ug/dL [facility] Iron binding capacity [Mass/Vol] 358 ug/dL 232 - 386 ug/dL [facility] Iron/TIBC [Molar ratio] 26.8 % 15.0 - 57.0 % [facility] CBC W Auto Differential pane l (Bld)on 02-17-2022 Basophils (Bld) [#/Vol] 0.03 10*3/uL <0.11 k/uL [facility] Basophils/100 WBC (Bld) 0.5 % [facility] Differential cell count method Nom (Bld) Auto [facility] Eosinophils (Bld) [#/Vol] 0.09 10*3/uL <0.46 k/uL [facility] Eosinophils/100 WBC (Bld) 1.6 % [facility] Erythrocyte distribution width (RBC) [Ratio] 11.8 % 11.5 - 15.0 % [facility] Hematocrit (Bld) [Volume fraction] 38.0 % 36.0 - 46.0 % [facility] Hemoglobin (Bld) [Mass/Vol] 13.0 g/dL 11.5 - 15.5 g/dL [facility] Immature granulocytes (Bld) [#/Vol] <0.10 k/uL [facility] Immature granulocytes/100 WBC (Bld) 0.4 % [facility] Lymphocytes (Bld) [#/Vol] 1.78 10*3/uL 1.00 - 4.00 k/uL [facility] Lymphocytes/100 WBC (Bld) 32.1 % [facility] MCH (RBC) [Entitic mass] 32.4 pg 26.0 - 34.0 pg [facility] MCHC (RBC) [Mass/Vol] 34.2 g/dL 30.5 - 36.0 g/dL [facility] MCV (RBC) [Entitic vol] 94.8 fL 80.0 - 100.0 fL [facility] Monocytes (Bld) [#/Vol] 0.35 10*3/uL <0.87 k/uL [facility] Monocytes/100 WBC (Bld) 6.3 % [facility] Neutrophils (Bld) [#/Vol] 3.28 10*3/uL 1.45 - 7.50 k/uL [facility] Neutrophils/100 WBC (Bld) 59.1 % [facility] Nucleated RBC (Bld) [#/Vol] <0.01 k/uL [facility] Nucleated RBC/100 WBC (Bld) [Ratio] 0.0 /100 WBC [facility] Platelet mean volume (Bld) [Entitic vol] 9.6 fL 9.0 - 12.7 fL [facility] Platelets (Bld) [#/Vol] 294 10*3/uL 150 - 400 k/uL [facility] RBC (Bld) [#/Vol] 4.01 10*6/uL 3.90 - 5.20 m/uL [facility] WBC (Bld) [#/Vol] 5.55 10*3/uL 3.70 - 11.00 k/uL [facility] Comprehensive metabolic 2000 panelon 02-17-2022 Albumin [Mass/Vol] 4.8 g/dL 3.9 - 4.9 g/dL [facility] ALP [Catalytic activity/Vol] 128 U/L High 34 - 123 U/L [facility] ALT [Catalytic activity/Vol] 26 U/L 7 - 38 U/L [facility] Anion gap [Moles/Vol] 9 mmol/L 9 - 18 mmol/L [facility] AST [Catalytic activity/Vol] 34 U/L 13 - 35 U/L [facility] Bilirubin [Mass/Vol] 0.4 mg/dL 0.2 - 1 .3 mg/dL [facility] Calcium [Mass/Vol] 10.3 mg/dL High 8.5 - 10. 2 mg/dL [facility] Chloride [Moles/Vol] 100 mmol/L 97 - 10 5 mmol/L [facility] CO2 [Moles/Vol] 27 mmol/L 22 - 30 mmol/L [facility] Creatinine [Mass/Vol] 0.86 mg/dL 0.58 - 0.96 mg/dL [facility] Estimated Glomerular Filtration Rate 90 mL/min/1.73m >=60 mL/min/1.7 3m [facility] Glucose [Mass/Vol] 87 mg/dL 74 - 99 mg/dL [facility] Potassium [Moles/Vol] 3.9 mmol/L 3.7 - 5.1 mmol/L [facility] Protein [Mass/Vol] 7.9 g/dL 6.3 - 8.0 g/dL [facility] Sodium [Moles/Vol] 136 mmol/L 136 - 144 mmol/L [facility] Urea nitrogen [Mass/Vol] 16 mg/dL 7 - 21 mg/dL [facility] LD LACTATE DEHYDROon 022 LDH [Catalytic activity/Vol] 182 U/L 135 - 214 U/L [facility] RETIC COUNTon 02-17-2022 Reticulocytes (Bld) [#/Vol] 0.24970 10*3/uL 0.018 - 0.100 M/uL [facility] Reticulocytes (Bld) [#/Vol]o n 02-17-2022 Reticulocytes/100 RBC (Bld) 1.4 % 0.4 - 2.0 % [facility] ANES POSTPROC EVALon 022 ANES POSTPROC EVAL HNO ID: [id number] Author: Js Marks MD Service: Anesthesiology Author Type: Anesthesiologist Type: Anesthesia Postprocedure Evaluation Filed: 01/31/2022 3:44 PM Note Text: POST ANESTHESIA EVALUATION NOTE : 1985 Procedure Summary Date: 01/31/22 Room / Location: Procedures Anesthesia Start: 1431 Anesthesia Stop: 1455 Procedure: EGD DIAGNOSTIC Diagnosis: Scheduled Providers: Arsh Hernandez MD; Sharon Bella RN; Js Marks MD; Royce Hauser APRN.SCADA OPERATOR Responsible Provider: Js Marks MD Anesthesia Type: [...] January 31, 2022 TIME: 3:43 PM CSN: [id number] [facility] ANES PRE-OPon 01-31-2022 ANES PRE-OP HNO ID: [id number] Author: Js Marks MD Service: Anesthesiology Author Type: Anesthesiologist Type: Anesthesia Preprocedure Evaluation Filed: 01/31/2022 1:57 PM Note Text: ANESTHESIOLOGY DAY OF SURGERY NOTE : 1985 Procedure Information Date/Time: 01/31/22 1330 Scheduled providers: Arsh Hernandez MD; Sharon Bella RN; Js Marks MD; Royce Hauser APRN.SCADA OPERATOR Procedure: EGD DIAGNOSTIC Location: Procedures Estimated body [...] and consent discussed: yes. Patient / Responsible Republican agrees to proceed: yes Patient / Surrogate [...] Cholecalciferol, Zakia (more content not included)... Normal [facility] CBC panel Auto (Bld)on 01-31 Erythrocyte distribution width (RBC) [Ratio] 13.0 % Normal 11.5-15.0 [facility] Comment on above: Order Comment: Speci men Type: BLOOD SPECIMENOrdering Facility: [facility] Address: [address] [place] [address] Performed By: #### 5 8410-2 ####[facility] LABORATORYCLIA [id number] [address] OF [facility] Hematocrit (Bld) [Volume fraction] 35.4 % Low 36.0-46.0 [facility] Comment on above: Order Comment: Speci men Type: BLOOD SPECIMENOrdering Facility: [facility] Address: [address] [place] [address] Performed By: #### 5 8410-2 ####[facility] [id number] [address] [place] Hemoglobin (Bld) [Mass/Vol] 11.6 g/dL Normal 11.5-15.5 [facility] Comment on above: Order Comment: Speci men Type: BLOOD SPECIMENOrdering Facility: [facility] Address: [address] [place] [address] Performed By: #### 5 8410-2 ####[facility] LABORATORYIA [id number] [place] [id number] [place] MCH (RBC) [Entitic mass] 31.9 pg Normal 26.0-34.0 [facility] Comment on above: Order Comment: Speci men Type: BLOOD SPECIMENOrdering Facility: [facility] Address: [address] [place] [address] Performed By: #### 5 8410-2 ####[facility] LABORATORYIA [id number] [place] [address] [place] MCHC (RBC) [Mass/Vol] 32.8 g/dL Normal 30.5-36.0 [facility] Comment on above: Order Comment: Speci men Type: BLOOD SPECIMENOrdering Facility: [facility] Address: [address] Performed By: #### 5 8410-2 ####[facility] LABORATORYIA [id number] [place] [address] [facility] [place] MCV (RBC) [Entitic vol] 97.3 fL Normal 80.0-100.0 [facility] Comment on above: Order Comment: Speci men Type: BLOOD SPECIMENOrdering Facility: [facility] Address: [address] Performed By: #### 5 8410-2 ####[facility]ITALIA [id number] [place] [address] [place] Nucleated RBC (Bld) [#/Vol] 10*3/uL Normal <0.01 [facility] Comment on above: Order Comment: Speci men Type: BLOOD SPECIMENOrdering Facility: [facility] Address: [address] Performed By: #### 5 8410-2 ####[facility]ITALIA [id number] [place] [address] [place] Platelet mean volume (Bld) [Entitic vol] 10.0 fL Normal 9.0-12.7 [facility] Comment on above: Order Comment: Speci men Type: BLOOD SPECIMENOrdering Facility: [facility] Address: [address] Performed By: #### 5 8410-2 ####[facility] LABORATORYIA [id number] [place] [id number] [place] Platelets (Bld) [#/Vol] 126 10*3/uL Low 150-400 [facility] Comment on above: Order Comment: Speci men Type: BLOOD SPECIMENOrdering Facility: [facility] Address: [address] Performed By: #### 5 8410-2 ####[facility] LABORATORYCLIA [id number] [place] [address] [place] RBC (Bld) [#/Vol] 3.64 10*6/uL Low 3.90-5.20 [facility] Comment on above: Order Comment: Poloemma dia Type: BLOOD SPECIMENOrdering Facility: [facility] Address: [address] [place] [address] Performed By: #### 5 8410-2 ####[facility] LABORATORYIA [id number] [place] [id number] [facility] WBC (Bld) [#/Vol] 3.50 10*3/uL Low 3.70-11.00 [facility] Comment on above: Order Comment: Specemma ifeoma Type: BLOOD SPECIMENOrdering Facility: [facility] Address: [address] [place] [address] Performed By: #### 5 8410-2 ####[facility]ITALIA [id number] [place] [id number] [facility] CNDSon 01-31-2022 CNDS HNO ID: [id number] Author: Radha Cooley MD Service: Hospital Medicine [...] by hematology who recommended follow up with chief catalyst operator as OP .She was seen by GI [...] CONSULTS DURING HOSPITALIZATION: Treatment Team: Attending Provider: Radha Cooley MD Consulting: Arsh Hernandez MD Primary Service: Nubia Martínez PA-C Orders Placed This Encounter Smoking Cessation Education CONSULT TO GASTROENTEROLOGY CONSULT TO GASTROENTEROLOGY Physician Consult CONSULT TO CC GENERAL SURGERY (AV,IR) Physician Consult CONSULT TO CC HEMATOLOGY / ONCOLOGY (AV,FV,IR) Follow-Up Appointment PATIENT CONDITION AT DISCHARGE: Stable ADVANCE CARE PLANNING DISCUSSION (if applicable): N/A DISCHAR (more content not included)... Normal [facility] CONSULT PROGon 01-31-2022 CONSULT PROG HNO ID: [id number] Author: Charly Hargrove APRN.OVERLOCK SEWING MACHINE OPERATOR Service: Gastroenterology Author Type: Nurse Practitioner Type: [...] to gastroparesis specialist Dr. Douglass. Charly Hargrove, [facility] Gastroenterology [phone] Normal [facility] Comprehensive metabolic 2000 panelon 01-31-2022 Albumin [Mass/Vol] 3.6 g/dL Low 3.9-4.9 [facility] Comment on above: Order Comment: Speci men Type: BLOOD SPECIMENOrdering Facility: [facility] Address: [address] [place] [address] Performed By: #### 2 4323-8 ####[facility] LABORATORYCLIA [id number] [place] [address] [place] ALP [Catalytic activity/Vol] 267 U/L High 34-123 [facility] Comment on above: Order Comment: Speci men Type: BLOOD SPECIMENOrdering Facility: [facility] Address: [address] [place] [address] Performed By: #### 2 4323-8 ####[facility] LABORATORYIA [id number] [place] [address] [place] ALT [Catalytic activity/Vol] 122 U/L High 7-38 [facility] Comment on above: Order Comment: Speci men Type: BLOOD SPECIMENOrdering Facility: [facility] Address: [address] [place] [address] Performed By: #### 2 4323-8 ####[facility] LABORATORYIA [id number] [place] [address] [place] Anion gap [Moles/Vol] 7 mmol/L Low 9-18 [facility] Comment on above: Order Comment: Speci men Type: BLOOD SPECIMENOrdering Facility: [facility] Address: [address] [place] [address] Performed By: #### 2 4323-8 ####[facility] LABORATORYIA [id number] [place] [address] [place] AST [Catalytic activity/Vol] 152 U/L High 13-35 [facility] Comment on above: Order Comment: Speci men Type: BLOOD SPECIMENOrdering Facility: [facility] Address: [address] [place], [place] [address] Performed By: #### 2 4323-8 ####[facility] LABORATORYCLIA [id number] [place] [address] [place] Bilirubin [Mass/Vol] 0.5 mg/dL Normal 0.2-1.3 [facility] Comment on above: Order Comment: Speci men Type: BLOOD SPECIMENOrdering Facility: [facility] Address: [address] [place] [address] Performed By: #### 2 4323-8 ####[facility] LABORATORYCLIA [id number] [place] [address] [place] Calcium [Mass/Vol] 9.1 mg/dL Normal 8.5-10.2 [facility] Comment on above: Order Comment: Speci men Type: BLOOD SPECIMENOrdering Facility: [facility] Address: [address] [place] [address] Performed By: #### 2 4323-8 ####[facility] LABORATORYIA [id number] [place] [address] [place] Chloride [Moles/Vol] 100 mmol/L Normal 97-105 [facility] Comment on above: Order Comment: Speci men Type: BLOOD SPECIMENOrdering Facility: [facility] Address: [address] [place] [address] Performed By: #### 2 4323-8 ####[facility] LABORATORYIA [id number] [place] [id number] [place] CO2 [Moles/Vol] 27 mmol/L Normal 22-30 [facility] Comment on above: Order Comment: Speci men Type: BLOOD SPECIMENOrdering Facility: [facility] Address: [address] [place], [place] [address] Performed By: #### 2 4323-8 ####[facility] LABORATORYIA [id number] [place] [address] [place] Creatinine [Mass/Vol] 0.68 mg/dL Normal 0.58-0.96 [facility] Comment on above: Order Comment: Mani dia Type: BLOOD SPECIMENOrdering Facility: [facility] Address: [address] [place] [address] Performed By: #### 2 4323-8 ####[facility] LABORATORYCLIA [id number] [place] [address] [place] ESTIMATED GLOMERULAR FILTRATION RATE 116 mL/min/1.73m??? Normal >=60 [facility] Comment on above: Order Comment: Mani dia Type: BLOOD SPECIMENOrdering Facility: [facility] Address: [address] [place] [address] Result Comment: Breana mated Glomerular Filtration Rate [...] actual GFR. Performed By: #### 2 4323-8 ####[facility] LABORATORYCLIA [id number] [place] [address] [place] Glucose [Mass/Vol] 90 mg/dL Normal 74-99 [facility] Comment on above: Order Comment: Poloemma dia Type: BLOOD SPECIMENOrdering Facility: [facility] Address: [address] [place] [address] Result Comment: The [employer] [employer] (ADA) provides guidance for cutoff [...] Standards of Medical Care in Diabetes 2016, [employer]. Diabetes Care. 2016.39(Suppl 1). Performed By: #### 2 4323-8 ####[facility]PITALIA [id number] [place] [address] [place] Potassium [Moles/Vol] 3.8 mmol/L Normal 3.7-5.1 [facility] Comment on above: Order Comment: Speci men Type: BLOOD SPECIMENOrdering Facility: [facility] Address: [address] [place] [address] Performed By: #### 2 4323-8 ####[facility] [id number] [place] [id number] [place] Protein [Mass/Vol] 6.9 g/dL Normal 6.3-8.0 [facility] Comment on above: Order Comment: Speci men Type: BLOOD SPECIMENOrdering Facility: [facility] Address: [address] [place] [address] Performed By: #### 2 4323-8 ####[facility] [id number] [place] [address] [place] Sodium [Moles/Vol] 134 mmol/L Low 136-144 [facility] Comment on above: Order Comment: Speci men Type: BLOOD SPECIMENOrdering Facility: [facility] Address: [address] [place] [address] Performed By: #### 2 4323-8 ####[facility] [id number] [place] [address] [place] Urea nitrogen [Mass/Vol] 6 mg/dL Low 7-21 [facility] Comment on above: Order Comment: Speci men Type: BLOOD SPECIMENOrdering Facility: [facility] Address: [address] [place] [address] Performed By: #### 2 4323-8 ####[facility] [id number] [place] [address] [place] SURGICAL PATHOLOGYon 022 CASE REPORT Normal [facility] Comment on above: Order Comment: Speci men Type: TISSUE SPECIMEN [facility] Address: [address] [place] [address] Result Comment: Surg ica Pathology Report Case: [id number] Authorizing Provider: Arsh Hernandez MD Collected: 01/31/2022 02:43 PM Ordering Location: Procedures Received: 01/31/2022 04:05 PM Pathologist: Eric Vitale MD Specimen: DUODENUM BIOPSY Performed By: #### S #### [facility] CLIA [id number] [address] [place] [address] FINAL DIAGNOSIS Normal [facility] Comment on above: Order Comment: Speci men Type: TISSUE SPECIMEN [facility] Address: [address] [place] [address] Result Comment: Duod enum, biopsy: - 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 - No evidence of celiac disease or duodenitis. Performed By: #### S #### [facility] CLIA [id number] [address] [place] [address] FINAL PERFORMING LAB Normal [facility] Comment on above: Order Comment: Speci men Type: TISSUE SPECIMEN [facility] Address: [address] [place] [address] Result Comment: Diag nostic interpretation performed at [facility], [address] [place] [address] CLIA# [id number] Motorized Squad Lieutenant: Marcellus Morgan M.D. Performed By: #### S #### [facility] CLIA [id number] [address] [place] [address] GROSS DESCRIPTION Normal [facility] Comment on above: Order Comment: Speci men Type: TISSUE SPECIMEN [facility] Address: [address] [place] [address] Result Comment: A. D UODENUM BIOPSY Received in formalin are two pieces of robertson, soft tissue aggregating to 0.4 x 0.2 x 0.2 cm. Totally submitted in one cassette. Gross examination performed at [facility], [address] [place] [address], [place] [address] [place] 01/31/2022 11:37 PM Performed By: #### S #### [facility] CLIA [id number] [address] [place] [address] [id number] [id number] [place] [facility] Upper GI endoscopy 01-31-2 022 Upper GI endoscopy [facility] Gastrointestinal Endoscopy Patient Name: Ben [...] history and physical. Referring Physician: Charly Bajwa (general road supervisorAngella Hargrove (Referring MD) Medicines: General Anesthesia Complications: [...] Dr. Douglass. Procedure Code(s): --- Professional --- 96699, Esophagogastroduodenoscopy, flexible, transoral; with biopsy, single or multiple Diagnosis Code(s): --- Professional --- K22.89, Other specified disease of esophagus R11.2, Nausea with vomiting, unspecified CPT copyright 2020 [employer]. All rights reserved. The codes documented in this report are preliminary and upon core java engineer review may be revised to meet current compliance requirements. Attending Participation: I personally performed the entire procedure. Scope In: 2:40:57 PM Scope Out: 2:44:56 PM MD Arsh Millan MD 01/31/2022 2:51:46 PM This report has been signed electronically by Arsh Hernandez MD Number of Addenda: 0 Note Initiated On: 01/31/2022 2:16 PM Estimated Blood Loss: Estimated blood loss was minimal. Normal [facility] CBC panel Auto (Bld)on 01-30 Erythrocyte distribution width (RBC) [Ratio] 12.4 % Normal 11.5-15.0 [facility] Comment on above: Order Comment: Mani dia Type: BLOOD SPECIMENOrdering Facility: [facility] Address: [address] [place] [address] Performed By: #### 5 8410-2 ####[facility] LABORATORYCLIA [id number] [facility] [place] [address] [place] Hematocrit (Bld) [Volume fraction] 33.1 % Low 36.0-46.0 [facility] Comment on above: Order Comment: Mani dia Type: BLOOD SPECIMENOrdering Facility: [facility] Address: [address] Performed By: #### 5 8410-2 ####[facility]PITALIA [id number] [place] [address] [place] Hemoglobin (Bld) [Mass/Vol] 11.1 g/dL Low 11.5-15.5 [facility] Comment on above: Order Comment: Speci men Type: BLOOD SPECIMENOrdering Facility: [facility] Address: [address] [place] [place] [address] Performed By: #### 5 8410-2 ####[facility]OSPITALIA [id number] [place] [address] [place] MCH (RBC) [Entitic mass] 32.6 pg Normal 26.0-34.0 [facility] Comment on above: Order Comment: Speci men Type: BLOOD SPECIMENOrdering Facility: [facility] Address: [address] [place] [address] Performed By: #### 5 8410-2 ####[facility]ITALIA [id number] [address] [place] MCHC (RBC) [Mass/Vol] 33.5 g/dL Normal 30.5-36.0 [facility] Comment on above: Order Comment: Speci men Type: BLOOD SPECIMENOrdering Facility: [facility] Address: [address] [place] [address] Performed By: #### 5 8410-2 ####[facility] HOSPITALIA [id number] [address] [address] [place] MCV (RBC) [Entitic vol] 97.4 fL Normal 80.0-100.0 [facility] Comment on above: Order Comment: Speci men Type: BLOOD SPECIMENOrdering Facility: [facility] Address: [address] [place] [address] Performed By: #### 5 8410-2 ####[facility] LABORATORYIA [id number] [place] [address] [place] Nucleated RBC (Bld) [#/Vol] 10*3/uL Normal <0.01 [facility] Comment on above: Order Comment: Speci men Type: BLOOD SPECIMENOrdering Facility: [facility] Address: [address] [address] Performed By: #### 5 8410-2 ####[facility] LABORATORYIA [id number] [place] [address] [place] Platelet mean volume (Bld) [Entitic vol] 9.9 fL Normal 9.0-12.7 [facility] Comment on above: Order Comment: Speci men Type: BLOOD SPECIMENOrdering Facility: [facility] Address: [address] Performed By: #### 5 8410-2 ####[facility] [id number] [place] [address] [place] Platelets (Bld) [#/Vol] 105 10*3/uL Low 150-400 [facility] Comment on above: Order Comment: Speci men Type: BLOOD SPECIMENOrdering Facility: [facility] Address: [address] Performed By: #### 5 8410-2 ####[facility]ITAL[facility] [id number] [place] [address] [place] RBC (Bld) [#/Vol] 3.40 10*6/uL Low 3.90-5.20 [facility] Comment on above: Order Comment: Speci men Type: BLOOD SPECIMENOrdering Facility: [facility] Address: [address] Performed By: #### 5 8410-2 ####[facility] LABORATORYIA [id number] [place] [address] [place] WBC (Bld) [#/Vol] 3.01 10*3/uL Low 3.70-11.00 [facility] Comment on above: Order Comment: Speci men Type: BLOOD SPECIMENOrdering Facility: [facility] Address: [address] Performed By: #### 5 8410-2 ####[facility] LABORATORYCLIA [id number] [facility] [place] [address] [place] [facility] CONSULT PROGon 01-30-2022 CONSULT PROG HNO ID: [id number] Author: Charly Hargrove APRN.OVERLOCK SEWING MACHINE OPERATOR Service: Gastroenterology Author Type: Nurse Practitioner Type: [...] be via telephone later this afternoon, her #[phone] -will follow along Case to be discussed with Dr. Hernandez for further recs Charly Hargrove, OVERLOCK SEWING MACHINE OPERATOR Gastroenterology and Hepatology [phone] *Portions of Impression and Plan copied from previous day's GI Consult Note and updated as indicated* Normal [facility] CONSULT PROG HNO ID: [id number] Author: Virgil Delgado PA-C Service: General Surgery Author Type: Physician Senior Reservoir Engineer Type: Consult Progress Note Filed: 01/30/2022 9:00 [...] - C (more content not included)... Normal [facility] Comprehensive metabolic 2000 panelon 01-30-2022 Albumin [Mass/Vol] 3.2 g/dL Low 3.9-4.9 [facility] Comment on above: Order Comment: Mani dia Type: BLOOD SPECIMENOrdering Facility: [facility] Address: [facility] [place] [address] Performed By: #### 2 4323-8 ####[facility] LABORATORYCLIA [id number] [facility] [place] [address] [place] ALP [Catalytic activity/Vol] 242 U/L High 34-123 [facility] Comment on above: Order Comment: Speci men Type: BLOOD SPECIMENOrdering Facility: [facility] Address: [address] [address] Performed By: #### 2 4323-8 ####[facility] LABORATORYIA [id number] [place] [address] [place] ALT [Catalytic activity/Vol] 125 U/L High 7-38 [facility] Comment on above: Order Comment: Speci men Type: BLOOD SPECIMENOrdering Facility: [facility] Address: [address] [address] Performed By: #### 2 4323-8 ####[facility] LABORATORYIA [id number] [place] [address] [place] Anion gap [Moles/Vol] 6 mmol/L Low 9-18 [facility] Comment on above: Order Comment: Speci men Type: BLOOD SPECIMENOrdering Facility: [facility] Address: [address] [address] Performed By: #### 2 4323-8 ####[facility] [id number] [place] [address] [place] AST [Catalytic activity/Vol] 183 U/L High 13-35 [facility] Comment on above: Order Comment: Speci men Type: BLOOD SPECIMENOrdering Facility: [facility] Address: [address] [address] Performed By: #### 2 4323-8 ####[facility] LABORATORYCLIA [id number] [place] [address] [place] Bilirubin [Mass/Vol] 0.5 mg/dL Normal 0.2-1.3 [facility] Comment on above: Order Comment: Speci men Type: BLOOD SPECIMENOrdering Facility: [facility] Address: [address] [place] [address] Performed By: #### 2 4323-8 ####[facility] LABORATORYIA [id number] [place] [address] [place] Calcium [Mass/Vol] 8.5 mg/dL Normal 8.5-10.2 [facility] Comment on above: Order Comment: Speci men Type: BLOOD SPECIMENOrdering Facility: [facility] Address: [address] [place] [address] Performed By: #### 2 4323-8 ####[facility] LABORATORYCLIA [id number] [place] [address] [place] Chloride [Moles/Vol] 101 mmol/L Normal 97-105 [facility] Comment on above: Order Comment: Speci men Type: BLOOD SPECIMENOrdering Facility: [facility] Address: [address] [place] [address] Performed By: #### 2 4323-8 ####[facility] LABORATORYCLIA [id number] [place] [address] [place] CO2 [Moles/Vol] 28 mmol/L Normal 22-30 [facility] Comment on above: Order Comment: Speci men Type: BLOOD SPECIMENOrdering Facility: [facility] Address: [address] [place] [address] Performed By: #### 2 4323-8 ####[facility] LABORATORYIA [id number] [address] [address] [place] Creatinine [Mass/Vol] 0.71 mg/dL Normal 0.58-0.96 [facility] Comment on above: Order Comment: Speci men Type: BLOOD SPECIMENOrdering Facility: [facility] Address: [address] [place] [address] Performed By: #### 2 4323-8 ####[facility] LABORATORYCLIA [id number] [place] [address] [place] ESTIMATED GLOMERULAR FILTRATION RATE 113 mL/min/1.73m??? Normal >=60 [facility] Comment on above: Order Comment: Speci men Type: BLOOD SPECIMENOrdering Facility: [facility] Address: [address] [place] [address] Result Comment: Breana mated Glomerular Filtration Rate [...] actual GFR. Performed By: #### 2 4323-8 ####[facility] LABORATORYCLIA [id number] [place] [address] [place] Glucose [Mass/Vol] 90 mg/dL Normal 74-99 [facility] Comment on above: Order Comment: Speci men Type: BLOOD SPECIMENOrdering Facility: [facility] Address: [address] [id number] Result Comment: The [place] Diabetes Association (ADA) provides guidance for cutoff [...] Standards of Medical Care in Diabetes 2016, [place] [employer]. Diabetes Care. 2016.39(Suppl 1). Performed By: #### 2 4323-8 ####[facility] LABORATORYCLIA [id number] [place] [address] [place] Potassium [Moles/Vol] 3.7 mmol/L Normal 3.7-5.1 [facility] Comment on above: Order Comment: Speci men Type: BLOOD SPECIMENOrdering Facility: [facility] Address: [address] [place] [address] Performed By: #### 2 4323-8 ####[facility] LABORATORYCLIA [id number] [place] [address] [place] Protein [Mass/Vol] 6.0 g/dL Low 6.3-8.0 [facility] Comment on above: Order Comment: Speci men Type: BLOOD SPECIMENOrdering Facility: [facility] Address: [address] [address] Performed By: #### 2 4323-8 ####[facility]ITAL[facility] [id number] [place] [address] [place] Sodium [Moles/Vol] 135 mmol/L Low 136-144 [facility] Comment on above: Order Comment: Speci men Type: BLOOD SPECIMENOrdering Facility: [facility] Address: [address] [address] Performed By: #### 2 4323-8 ####[facility] [id number] [place] [address] [place] Urea nitrogen [Mass/Vol] 3 mg/dL Low 7-21 [facility] Comment on above: Order Comment: Speci men Type: BLOOD SPECIMENOrdering Facility: [facility] Address: [address] [address] Performed By: #### 2 4323-8 ####[facility]ITAL[facility] [id number] [place] [address] [place] NM GASTRIC EMPTYING SOLIDon 01-30-2022 NM GASTRIC EMPTYING SOLID * * *Final Report* * * DATE OF EXAM: Jan 30 2022 12:48PM [facility] 0017 - [place] GASTRIC EMPTYING SOLID / [...] 4 HOURS IS CONSISTENT WITH MODERATE GASTROPARESIS. 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 Operator Hydraulic: CHENG Transcribe Date/Time: Jan 30 2022 12:50P Dictated by : LAUREN THOMAS MD This examination was interpreted and the report reviewed and electronically signed by: LAUREN THOMAS MD on Jan 30 2022 12:52PM EST [id number] Normal [facility] CBC panel Auto (Bld)on 01-29 Erythrocyte distribution width (RBC) [Ratio] 12.8 % Normal 11.5-15.0 [facility] Comment on above: Order Comment: Mani dia Type: BLOOD SPECIMENOrdering Facility: [facility] Address: [address] [place] [address] Performed By: #### 5 8410-2, 52493-4 ####[facility]ITALIA [id number] [place] [address] [place] Hematocrit (Bld) [Volume fraction] 33.3 % Low 36.0-46.0 [facility] Comment on above: Order Comment: Mani dia Type: BLOOD SPECIMENOrdering Facility: [facility] Address: [address] [place] [address] Performed By: #### 5 8410-2, 84996-5 ####[facility] LABORATORYIA [id number] [place] [address] [place] Hemoglobin (Bld) [Mass/Vol] 11.1 g/dL Low 11.5-15.5 [facility] Comment on above: Order Comment: Poloi ifeoma Type: BLOOD SPECIMENOrdering Facility: [facility] Address: [address] [place] [address] Performed By: #### 5 8410-2, 70889-5 ####[facility] LABORATORYCLIA [id number] [place] [address] [place] MCH (RBC) [Entitic mass] 33.0 pg Normal 26.0-34.0 [facility] Comment on above: Order Comment: Speci men Type: BLOOD SPECIMENOrdering Facility: [facility] Address: [address] [place] [address] Performed By: #### 5 8410-2, 18758-2 ####[facility] LABORATORYCLIA [id number] [address] [place] MCHC (RBC) [Mass/Vol] 33.3 g/dL Normal 30.5-36.0 [facility] Comment on above: Order Comment: Speci men Type: BLOOD SPECIMENOrdering Facility: [facility] Address: [address] [place] [address] Performed By: #### 5 8410-2, 70188-2 ####[facility] [id number] [address] [place] MCV (RBC) [Entitic vol] 99.1 fL Normal 80.0-100.0 [facility] Comment on above: Order Comment: Speci men Type: BLOOD SPECIMENOrdering Facility: [facility] Address: [address] [place] [address] Performed By: #### 5 8410-2, 82578-5 ####[facility] [id number] [address] [place] Nucleated RBC (Bld) [#/Vol] 10*3/uL Normal <0.01 [facility] Comment on above: Order Comment: Speci men Type: BLOOD SPECIMENOrdering Facility: [facility] Address: [address] [place] [address] Performed By: #### 5 8410-2, 28987-8 ####[facility] LABORATORYIA [id number] [address] [place] Platelet mean volume (Bld) [Entitic vol] 9.5 fL Normal 9.0-12.7 [facility] Comment on above: Order Comment: Speci men Type: BLOOD SPECIMENOrdering Facility: [facility] Address: [address] [address] Performed By: #### 5 8410-2, 05189-8 ####[facility] [id number] [address] [place] Platelets (Bld) [#/Vol] 82 10*3/uL Low 150-400 [facility] Comment on above: Order Comment: Speci men Type: BLOOD SPECIMENOrdering Facility: [facility] Address: [address] [place] [address] Result Comment: No c lot detected. Performed By: #### 5 8410-2, 27980-2 ####[facility] [id number] [address] [place] RBC (Bld) [#/Vol] 3.36 10*6/uL Low 3.90-5.20 [facility] Comment on above: Order Comment: Speci men Type: BLOOD SPECIMENOrdering Facility: [facility] Address: [address] [address] Performed By: #### 5 8410-2, 04599-5 ####[facility] [id number] [address] [place] WBC (Bld) [#/Vol] 2.40 10*3/uL Low 3.70-11.00 [facility] Comment on above: Order Comment: Speci men Type: BLOOD SPECIMENOrdering Facility: [facility] Address: [address] [place] [address] Performed By: #### 5 8410-2, 33049-8 ####[facility] [id number] [address] CONSULTon 01-29-2022 CONSULT HNO ID: [id number] Author: Elvis Cohen MD Service: Hematology/Oncology Author Type: Physician Type: Consults Filed: 01/29/2022 1:59 PM Note Text: C/S dictated; #[id number]. Pancytopenia. Continue outpatient f/up with Dr. Eze Sarmiento. Elvis Cohen MD Normal [facility] CONSULT HNO ID: [id number] Author: Elvis Cohen MD Service: Hematology/Oncology Author Type: Physician Type: Consults Filed: 01/30/2022 9:09 AM Note Text: [facility] - Consultation BEN BARR : 1985 AGE: 36 SEX: F CSN: [id number] [facility]: [facility] LOCATION: [facility] [place] ATTENDING PHYSICIAN: SHAUN CONTEH DATE OF SERVICE: 01/29/2022 TIME OF SERVICE: 01:00 PM CONSULTING PHYSICIAN: Elvis Cohen MD REASON FOR CONSULTATION: Pancytopenia. HISTORY OF PRESENT ILLNESS: The patient is a pleasant 36-year-old white lady, who presented to [facility] with nausea, vomiting, associated with a new [...] shared inpatient record. Elvis Cohen MD Hematology/oncology KK:[id number] Normal [facility] Comprehensive metabolic 2000 panelon 01-29-2022 Albumin [Mass/Vol] 3.0 g/dL Low 3.9-4.9 [facility] Comment on above: Order Comment: Speci men Type: BLOOD SPECIMENOrdering Facility: [facility] Address: [address] [address] Performed By: #### 2 4323-8 ####[facility] LABORATORYCLIA [id number] [address] [place] ALP [Catalytic activity/Vol] 197 U/L High 34-123 [facility] Comment on above: Order Comment: Speci men Type: BLOOD SPECIMENOrdering Facility: [facility] Address: [address] [address] Performed By: #### 2 4323-8 ####[facility] LABORATORYCLIA [id number] [place] [address] [place] ALT [Catalytic activity/Vol] 102 U/L High 7-38 [facility] Comment on above: Order Comment: Speci men Type: BLOOD SPECIMENOrdering Facility: [facility] Address: [address] [address] Performed By: #### 2 4323-8 ####[facility] LABORATORYCLIA [id number] [place] [address] [place] Anion gap [Moles/Vol] 5 mmol/L Low 9-18 [facility] Comment on above: Order Comment: Speci men Type: BLOOD SPECIMENOrdering Facility: [facility] Address: [address] [address] Performed By: #### 2 4323-8 ####[facility] LABORATORYCLIA [id number] [place] [address] [place] AST [Catalytic activity/Vol] 146 U/L High 13-35 [facility] Comment on above: Order Comment: Speci men Type: BLOOD SPECIMENOrdering Facility: [facility] Address: [address] [address] Performed By: #### 2 4323-8 ####[facility] LABORATORYCLIA [id number] [place] [address] [place] Bilirubin [Mass/Vol] 0.4 mg/dL Normal 0.2-1.3 [facility] Comment on above: Order Comment: Speci men Type: BLOOD SPECIMENOrdering Facility: [facility] Address: [address] [address] Performed By: #### 2 4323-8 ####[facility] LABORATORYCLIA [id number] [place] [address] [place] Calcium [Mass/Vol] 8.5 mg/dL Normal 8.5-10.2 [facility] Comment on above: Order Comment: Speci men Type: BLOOD SPECIMENOrdering Facility: [facility] Address: [address] [address] Performed By: #### 2 4323-8 ####[facility] LABORATORYCLIA [id number] [place] [address] [place] Chloride [Moles/Vol] 107 mmol/L High 97-105 [facility] Comment on above: Order Comment: Speci men Type: BLOOD SPECIMENOrdering Facility: [facility] Address: [address] [address] Performed By: #### 2 4323-8 ####[facility] LABORATORYCLIA [id number] [place] [address] [place] CO2 [Moles/Vol] 29 mmol/L Normal 22-30 [facility] Comment on above: Order Comment: Speci men Type: BLOOD SPECIMENOrdering Facility: [facility] Address: [address] [address] Performed By: #### 2 4323-8 ####[facility] [id number] [address] [place] Creatinine [Mass/Vol] 0.75 mg/dL Normal 0.58-0.96 [facility] Comment on above: Order Comment: Speci men Type: BLOOD SPECIMENOrdering Facility: [facility] Address: [address] [address] Performed By: #### 2 4323-8 ####[facility] LABORATORYIA [id number] [address] [place] ESTIMATED GLOMERULAR FILTRATION RATE 106 mL/min/1.73m??? Normal >=60 [facility] Comment on above: Order Comment: Speci men Type: BLOOD SPECIMENOrdering Facility: [facility] Address: [address] [place] [address] Result Comment: Breana mated Glomerular Filtration Rate [...] actual GFR. Performed By: #### 2 4323-8 ####[facility] LABORATORYCLIA [id number] [place] [address] [place] Glucose [Mass/Vol] 90 mg/dL Normal 74-99 [facility] Comment on above: Order Comment: Poloi men Type: BLOOD SPECIMENOrdering Facility: [facility] Address: [address] [place] [address] Result Comment: The [place] Diabetes Association (ADA) provides guidance for cutoff [...] Standards of Medical Care in Diabetes 2016, [place] [employer]. Diabetes Care. 2016.39(Suppl 1). Performed By: #### 2 4323-8 ####[facility] LABORATORYCLIA [id number] [place] [address] [place] Potassium [Moles/Vol] 3.9 mmol/L Normal 3.7-5.1 [facility] Comment on above: Order Comment: Mani dia Type: BLOOD SPECIMENOrdering Facility: [facility] Address: [address] [place] [address] Performed By: #### 2 4323-8 ####[facility] LABORATORYCLIA [id number] [place] [id number] [place] Protein [Mass/Vol] 5.6 g/dL Low 6.3-8.0 [facility] Comment on above: Order Comment: Mani men Type: BLOOD SPECIMENOrdering Facility: [facility] Address: [address] [place] [address] Performed By: #### 2 4323-8 ####[facility] LABORATORYCLIA [id number] [place] [id number] [place] Sodium [Moles/Vol] 141 mmol/L Normal 136-144 [facility] Comment on above: Order Comment: Speci men Type: BLOOD SPECIMENOrdering Facility: [facility] Address: [address] [address] Performed By: #### 2 4323-8 ####[facility] LABORATORYCLIA [id number] [place] [address] [place] Urea nitrogen [Mass/Vol] 3 mg/dL Low - [facility] Comment on above: Order Comment: Speci men Type: BLOOD SPECIMENOrdering Facility: [facility] Address: [address] [address] Performed By: #### 2 4323-8 ####[facility]ITALIA [id number] [place] [address] [place] Folate SerPl-ncon 01-30-20 Folate [Mass/Vol] ng/mL Normal >4.7 [facility] Comment on above: Order Comment: Speci [facility] Type: BLOOD SPECIMENOrdering Facility: [facility] Address: [address] [address] Result Comment: A re sult of > 20 ng/mL is not necessarily indicative of a pathologic or treatable condition: it reflects a limitation of the test methodology. Assay reference range: 4.8 to 24.2 ng/mL. Suitable for detection of folate deficiency. Reference: Folate III (Folate III) [package insert V 1.0 Estonian]. [facility], [place], [place]: December 2014. Performed By: #### 2 284-8, 2132-9 ####[facility] LABORATORYCLIA [id number] [address] [place] Retics #on 01-29-2022 Reticulocytes (Bld) [#/Vol] 0.68183 10*3/uL Normal 0.018-0.10 0 [facility] Comment on above: Order Comment: Speci men Type: BLOOD SPECIMENOrdering Facility: [facility] Address: [address] [address] Performed By: #### 5 8410-2, 53361-5 ####[facility] LABORATORYIA [id number] [facility], [place] [address] [place] [address] [place] Reticulocytes (Bld) [#/Vol]o n 01-29-2022 Reticulocytes/100 RBC (Bld) 2.4 % High 0.4-2.0 [facility] Comment on above: Order Comment: Speci men Type: BLOOD SPECIMENOrdering Facility: [facility] Address: [address] [address] Performed By: #### 5 8410-2, 41736-2 ####[facility] LABORATORYCLIA [id number] [facility].[address] [place] Vit B12 SerPl-mCncon 022 Cobalamin (Vitamin B12) [Mass/Vol] pg/mL High 232-1245 [facility] Comment on above: Order Comment: Speci men Type: BLOOD SPECIMENOrdering Facility: [facility] Address: [address] [place] [address] Performed By: #### 2 284-8, 2132-9 ####[facility]ITAL[facility] [id number] [facility].[address] [place] CBC panel Auto (Bld)on 01-28 Erythrocyte distribution width (RBC) [Ratio] 12.9 % Normal 11.5-15.0 [facility] Comment on above: Order Comment: Speci men Type: BLOOD SPECIMENOrdering Facility: [facility] Address: [address] [place] [address] Performed By: #### 5 8410-2 ####[facility]ITAL[facility] [id number] [facility].[address] [place] Hematocrit (Bld) [Volume fraction] 32.6 % Low 36.0-46.0 [facility] Comment on above: Order Comment: Speci men Type: BLOOD SPECIMENOrdering Facility: [facility] Address: [address] [place] [address] Performed By: #### 5 8410-2 ####[facility] LABORATORYIA [id number] [address] [place] Hemoglobin (Bld) [Mass/Vol] 10.8 g/dL Low 11.5-15.5 [facility] Comment on above: Order Comment: Speci men Type: BLOOD SPECIMENOrdering Facility: [facility] Address: [address] [address] Performed By: #### 5 8410-2 ####[facility] LABORATORYIA [id number] [address] [place] MCH (RBC) [Entitic mass] 32.2 pg Normal 26.0-34.0 [facility] Comment on above: Order Comment: Speci men Type: BLOOD SPECIMENOrdering Facility: [facility] Address: [address] [place] [address] Performed By: #### 5 8410-2 ####[facility] [id number] [address] [place] MCHC (RBC) [Mass/Vol] 33.1 g/dL Normal 30.5-36.0 [facility] Comment on above: Order Comment: Speci men Type: BLOOD SPECIMENOrdering Facility: [facility] Address: [address] [place] [address] Performed By: #### 5 8410-2 ####[facility] LABORATORYIA [id number] [address] [place] MCV (RBC) [Entitic vol] 97.3 fL Normal 80.0-100.0 [facility] Comment on above: Order Comment: Speci men Type: BLOOD SPECIMENOrdering Facility: [facility] Address: [address] [place] [address] Performed By: #### 5 8410-2 ####[facility] [id number] [address] [place] Nucleated RBC (Bld) [#/Vol] 10*3/uL Normal <0.01 [facility] Comment on above: Order Comment: Speci men Type: BLOOD SPECIMENOrdering Facility: [facility] Address: [address] [address] Performed By: #### 5 8410-2 ####[facility] [id number] [address] [id number] [place] Platelet mean volume (Bld) [Entitic vol] 9.6 fL Normal 9.0-12.7 [facility] Comment on above: Order Comment: Speci men Type: BLOOD SPECIMENOrdering Facility: [facility] Address: [address] [address] Performed By: #### 5 8410-2 ####[facility] [id number] [place] [address] [place] Platelets (Bld) [#/Vol] 74 10*3/uL Low 150-400 [facility] Comment on above: Order Comment: Speci men Type: BLOOD SPECIMENOrdering Facility: [facility] Address: [address] [place] [address] Result Comment: No c lot detected. Performed By: #### 5 8410-2 ####[facility] [id number] [place] [address] [place] RBC (Bld) [#/Vol] 3.35 10*6/uL Low 3.90-5.20 [facility] Comment on above: Order Comment: Speci men Type: BLOOD SPECIMENOrdering Facility: [facility] Address: [address] [address] Performed By: #### 5 8410-2 ####[facility] [id number] [place] [address] [place] WBC (Bld) [#/Vol] 2.38 10*3/uL Low 3.70-11.00 [facility] Comment on above: Order Comment: Speci men Type: BLOOD SPECIMENOrdering Facility: [facility] Address: [address] [place] [address] Performed By: #### 5 8410-2 ####[facility] LABORATORYIA [id number] [facility] [place] [address] [place] ABD/PEL W IVCONon [address] ABD/PEL W IVCON * * *Final Report* * * DATE OF EXAM: Jan 28 2022 9:31AM [facility] 0530 - CT ABD/PEL W IVCON / [...] Tissues: No significant finding. Lower thorax: Unremarkable. Transit Vehicle Inspector (topogram) images: No additional significant findings. IMPRESSION: Three areas of short segment small bowel intussusception in the left upper quadrant (two are new from 01/26/2022 and one is relatively similar in appearance to 01/26/2022), as described. No evidence for associated bowel obstruction (enteric contrast is noted to be in the small bowel distal to these areas of intussusception). 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 Operator Hydraulic: CHENG Transcribe Date/Time: Jan 28 2022 2:48P Dictated by : DIMAS FULTON DO This examination was interpreted and the report reviewed and electronically signed by: DIMAS FULTON DO on Jan 28 2022 3:03PM EST [id number] Normal [facility] Comprehensive metabolic 2000 panelon 01-28-2022 Albumin [Mass/Vol] 2.8 g/dL Low 3.9-4.9 [facility] Comment on above: Order Comment: Speci men Type: BLOOD SPECIMENOrdering Facility: [facility] Address: [address] [address] Performed By: #### 2 4323-8 ####[facility] LABORATORYCLIA [id number] [place] [address] [place] ALP [Catalytic activity/Vol] 157 U/L High 34-123 [facility] Comment on above: Order Comment: Speci men Type: BLOOD SPECIMENOrdering Facility: [facility] Address: [address] [address] Performed By: #### 2 4323-8 ####[facility] LABORATORYCLIA [id number] [place] [address] [place] ALT [Catalytic activity/Vol] 103 U/L High 7-38 [facility] Comment on above: Order Comment: Speci men Type: BLOOD SPECIMENOrdering Facility: [facility] Address: [address] [address] Performed By: #### 2 4323-8 ####[facility] LABORATORYIA [id number] [place] [address] [place] Anion gap [Moles/Vol] 7 mmol/L Low 9-18 [facility] Comment on above: Order Comment: Speci men Type: BLOOD SPECIMENOrdering Facility: [facility] Address: [address] [address] Performed By: #### 2 4323-8 ####[facility] LABORATORYIA [id number] [address] [id number] [place] AST [Catalytic activity/Vol] 179 U/L High 13-35 [facility] Comment on above: Order Comment: Speci men Type: BLOOD SPECIMENOrdering Facility: [facility] Address: [address] [address] Performed By: #### 2 4323-8 ####[facility] LABORATORYIA [id number] [place] [address] [place] Bilirubin [Mass/Vol] 0.4 mg/dL Normal 0.2-1.3 [facility] Comment on above: Order Comment: Speci men Type: BLOOD SPECIMENOrdering Facility: [facility] Address: [address] [place] [address] Performed By: #### 2 4323-8 ####[facility] LABORATORYIA [id number] [place] [address] [place] Calcium [Mass/Vol] 7.4 mg/dL Low 8.5-10.2 [facility] Comment on above: Order Comment: Speci men Type: BLOOD SPECIMENOrdering Facility: [facility] Address: [address] [place] [address] Performed By: #### 2 4323-8 ####[facility] LABORATORYIA [id number] [place] [address] [place] Chloride [Moles/Vol] 106 mmol/L High 97-105 [facility] Comment on above: Order Comment: Speci men Type: BLOOD SPECIMENOrdering Facility: [facility] Address: [address] [place] [address] Performed By: #### 2 4323-8 ####[facility] LABORATORYCLIA [id number] [place] [address] [place] CO2 [Moles/Vol] 26 mmol/L Normal 22-30 [facility] Comment on above: Order Comment: Speci men Type: BLOOD SPECIMENOrdering Facility: [facility] Address: [address] [place] [address] Performed By: #### 2 4323-8 ####[facility]ITAL[facility]IA [id number] [place] [address] [place] Creatinine [Mass/Vol] 0.73 mg/dL Normal 0.58-0.96 [facility] Comment on above: Order Comment: Speci men Type: BLOOD SPECIMENOrdering Facility: [facility] Address: [address] [place] [address] Performed By: #### 2 4323-8 ####[facility] LABORATORYIA [id number] [place] [address] [place] ESTIMATED GLOMERULAR FILTRATION RATE 109 mL/min/1.73m??? Normal >=60 [facility] Comment on above: Order Comment: Speci men Type: BLOOD SPECIMENOrdering Facility: [facility] Address: [address] [place] [address] Result Comment: Breana mated Glomerular Filtration Rate [...] actual GFR. Performed By: #### 2 4323-8 ####[facility] LABORATORYCLIA [id number] [place] [address] [place] Glucose [Mass/Vol] 122 mg/dL High 74-99 [facility] Comment on above: Order Comment: Speci men Type: BLOOD SPECIMENOrdering Facility: [facility] Address: [address] [address] Result Comment: The [place] Diabetes Association (ADA) provides guidance for cutoff [...] Standards of Medical Care in Diabetes 2016, [place] [employer]. Diabetes Care. 2016.39(Suppl 1). Performed By: #### 2 4323-8 ####[facility] LABORATORYCLIA [id number] [address] [id number] [place] Potassium [Moles/Vol] 3.6 mmol/L Low 3.7-5.1 [facility] Comment on above: Order Comment: Mani dia Type: BLOOD SPECIMENOrdering Facility: [facility] Address: [address] [address] Performed By: #### 2 4323-8 ####[facility] LABORATORYCLIA [id number] [place] [address] [place] Protein [Mass/Vol] 5.1 g/dL Low 6.3-8.0 [facility] Comment on above: Order Comment: Speci men Type: BLOOD SPECIMENOrdering Facility: [facility] Address: [address] [place] [address] Performed By: #### 2 4323-8 ####[facility] [id number] [place] [address] [place] Sodium [Moles/Vol] 139 mmol/L Normal 136-144 [facility] Comment on above: Order Comment: Speci men Type: BLOOD SPECIMENOrdering Facility: [facility] Address: [address] [address] Performed By: #### 2 4323-8 ####[facility] LABORATORYCLIA [id number] [place] [address] [place] [facility] Urea nitrogen [Mass/Vol] 5 mg/dL Low 7- [facility] Comment on above: Order Comment: Speci men Type: BLOOD SPECIMENOrdering Facility: [facility] Address: [address] [place] [address] Performed By: #### 2 4323-8 ####[facility] LABORATORYCLIA [id number] [place] [address] [place] ETHYL GLUCURONIDE UR SCRon 1 03-31-2021 ETHYL GLUCURONIDE UR SCR Negative Normal Cutoff 500 [facility] Comment on above: Order Comment: Speci men Type: URINE SPECIMENOrdering Facility: [facility] Address: [address] [place] [address] Result Comment: INTE RPRETIVE INFORMATION: Ethyl Glucuronide Screen with Reflex to Confirmation, Urine Ethyl glucuronide is a direct metabolite of ethanol and can be detected up to 80 hours in urine after ethanol ingestion. The cutoff for positive by immunoassay is set at 500 ng/mL. A positive result will be confirmed by liquid chromatography tandem mass spectrometry (LC-MS/MS). Performed By: [facility] [address] [place] [address] Motorized Squad Lieutenant: Phan Beard MD, PhD Performed By: #### U EGLUC ####[facility] LABORATORIESIA [id number] [place] [address] NUTRITIONon 01-28-2022 NUTRITION HNO ID: [id number] Author: Damari Henning RD Service: Nutrition Therapy [...] by: Patient/family self-report;Medical condition Estimated kilocalorie needs: 6002-9067 Calorie Calculation Method: 25-30 kcals/kg Estimated protein [...] her feel sick. No meals recorded in [facility] thus far. Diet Orders (From admission, onward) Start Ordered 01/28/22 1000 DIET GASTRO INTESTINAL START NOW Question: Gastro Intestinal Answer: FIBER CONTROLLED 01/28/22 0953 Anthropometrics: Height: 154.9 cm (5' 1 ) Weight: 60.1 kg (132 lb 7.9 oz) Dosing Weight: 60.1 kg (132 lb 7.9 oz) Usual Weight: 61.2 kg (135 lb) no record of this weight in [facility], per patient ~1.5 weeks ago she weighed this however per EPIC she weighed 129lbs ~ 1 week ago Usual Weight Obtained From: Patient Body mass index is 25.03 kg/m?. Overweight Weight change percentage over time: stable per [facility] Physical Exam: Subcutaneous fat loss: No fat [...] January 28, 2022 TIME: 6:47 PM Normal [facility] CHRIS BY IFA SCREENon 01-28-20 22 CHRIS PATTERN Nuclear homogenous Normal [facility] Comment on above: Order Comment: Speci men Type: BLOOD SPECIMENOrdering Facility: [facility] Address: [address] [place] [address] Performed By: #### 2 9374-6, 58826-3, 11563-4, 02892-5, 65337-9, ANAIFS, 73433-8, 31146-5, 38082-6, 39236-7, 12989-4 ####[facility] LABCLIA [id number] [place] [address] [place] CHRIS TITER 1:160 Normal [facility] Comment on above: Order Comment: Speci [facility] Type: BLOOD SPECIMENOrdering Facility: [facility] Address: [address] [place] [address] Performed By: #### 2 9374-6, 86280-6, 09578-7, 28043-6, 02676-6, ANAIFS, 95137-3, 42948-1, 86236-6, 65327-2, 14157-7 ####[facility] LABCLIA [id number] [place] [address] [place] Nuclear Ab IF (S) [Titer] Positive Abnormal Negative [facility] Comment on above: Order Comment: Speci men Type: BLOOD SPECIMENOrdering Facility: [facility] Address: [address] [place] [address] Result Comment: Anti -nuclear antibody test is used as an aid in diagnosis of systemic autoimmune diseases. Where positive and clinically warranted, follow-up using disease-specific testing is recommended. Low positive titers are not uncommon with advanced age, certain chronic infections, and malignancies among others. Test methodology: Indirect fluorescence immunoassay (IFA) using HEp-2 cells. Performed By: #### 2 9374-6, 44108-5, 72963-5, 75928-2, 95905-0, ANAIFS, 15672-5, 16000-7, 59374-0, 80434-8, 50172-0 ####[facility] LABCLIA [id number] [place] [address] [place] CASE MGT INIT CHADDon 2021 CASE MGT INIT CHADD HNO ID: [id number] Author: DOUG Rivera Service: Social Work Author Type: Putty Mixer Type: Care Mgt Initial Assessment Filed: 01/27/2022 [...] Current Advance Directive: Health Care Power of X Ray Operator In Chart: Yes Up To Date and [...] discharge within 30 days: No PATIENT SCREEN Patient/Art Model Stated Goals: To have reduction in pain;To [...] at this time. FREEDOM OF CHOICE EXPLAINED: [place]on of Choice Given: No Reason Not Given: [...] 27, 2022 TIME: 9:27 AM CONTACT #: [phone] Normal [facility] CMV DNA DETECTION AND QUANTo n 01-27-2022 CMV DNA JEAN+probe Qn (P) Not detected Normal CMV DNA Not Detected [facility] Comment on above: Order Comment: Speci men Type: BLOOD SPECIMENOrdering Facility: [facility] Address: [address] [place] [address] Performed By: #### C MVQNT ####[facility] LABCLIA [id number] [place] [address] [place] CONSULTon 01-27-2022 CONSULT HNO ID: [id number] Author: Paulina Pate APRN.OVERLOCK SEWING MACHINE OPERATOR Service: Gastroenterology Author Type: Nurse Practitioner Type: [...] 20 mL, IRRIGATION, ONE TIME, Saroj Foss, DIRECTOR OF CORPORATE SALES.OVERLOCK SEWING MACHINE OPERATOR Cholecalciferol, Vitamin D3, 125 mcg (5,000 unit) [...] % sodium chlorid (more content not included)... [facility] CONSULT HNO ID: [id number] Author: Virgil Delgado PA-C Service: General Surgery Author Type: Physician Senior Reservoir Engineer Type: Consults Filed: 01/27/2022 2:49 PM Note Text: Attestation signed by Josh Hope DO at 01/27/2022 4:59 PM Attending Note: Garcia findings confirmed. Patient examined. Discussed with the physician itinerant teacher assistant and the patient. Plan as outlined. [...] abdominal surgery for intussusception in 2005 at [facility]. She states that she has not been having normal Bms for several weeks. They have just been mostly small amounts of mucous. She states she is so weak from not being ady to eat that she struggles with the stairs. Nothing like this has happened before. She had an endoscopy and flex sig on 01/02/2022 at [facility] which showed a gastric Bezoar and she [...] 20 mL, IRRIGATION, ONE TIME, Saroj Foss, DIRECTOR OF CORPORATE SALES.OVERLOCK SEWING MACHINE OPERATOR Cholecalciferol, Vitamin D3, 125 mcg (5,000 unit) [...] immune globulin (more content not included)... Normal [facility] Centromere Ab IF Ql (S)on Centromere Ab Qn (S) <0.2 Normal <1.0 [facility] Comment on above: Order Comment: Speci men Type: BLOOD SPECIMENOrdering Facility: [facility] Address: [address] [place] [address] Result Comment: Anti -centromere antibody is used as in aid in diagnosis of systemic sclerosis. Clinical correlation is required. Test Methodology: Multiplex flow immunoassay. Performed By: #### 2 9374-6, 42736-2, 83945-6, 83266-7, 55146-7, ANAIFS, 49050-1, 02812-0, 05531-2, 30204-5, 09244-3 ####[facility] LABIA [id number] [place] [address] [place] [facility] CENTROMERE AB QUAL Negative Normal Negative [facility] Comment on above: Order Comment: Speci men Type: BLOOD SPECIMENOrdering Facility: [facility] Address: [address] [place] [address] Performed By: #### 2 9374-6, 17184-4, 88489-6, 89223-2, 40208-0, ANAIFS, 47558-9, 28908-7, 09908-6, 48619-6, 86619-5 ####[facility] LABIA [id number] [address] [place] Chromatin Ab Qnon 01-27-2022 CHROMATIN AB QUAL Negative Normal Negative [facility] Comment on above: Order Comment: Speci men Type: BLOOD SPECIMENOrdering Facility: [facility] Address: [address] [place] [address] Performed By: #### 2 9374-6, 48127-6, 24686-8, 64172-0, 43011-6, ANAIFS, 51472-0, 40461-3, 11390-2, 20682-2, 39562-0 ####[facility] LABIA [id number] [place] [address] [place] Chromatin Ab SerPl-aCncon Chromatin Ab Qn 0.6 AI Normal <1.0 [facility] Comment on above: Order Comment: Speci men Type: BLOOD SPECIMENOrdering Facility: [facility] Address: [address] [id number] Result Comment: Test Methodology: Multiplex flow immunoassay. Performed By: #### 2 9374-6, 74256-1, 60497-7, 18558-8, 55220-6, ANAIFS, 38439-9, 09170-4, 13770-8, 15738-9, 25389-3 ####[facility] LABIA [id number] [address] OF [facility] ED NOTEon 01-27-2022 ED NOTE HNO ID: [id number] Author: Jackie Edge RN Service: ? Author Type: Registered Nurse Type: ED Notes Filed: 01/27/2022 12:31 PM Note Text: Report called to Karishma LOMELI on 3E. Patient is aware that she is being admitted and awaiting to her from [facility]. [facility] ED NOTE HNO ID: [id number] Author: Jena Murphy RN Service: ? Author Type: Registered Nurse Type: ED Notes Filed: 01/27/2022 7:12 AM Note Text: Report given to ARMANI Mejia [facility] BEATRIZ Jo1 Ab Ser-aCncon 2021 Brigida-1 extractable nuclear Ab Qn (S) <0.2 Normal <1.0 [facility] Comment on above: Order Comment: Speci men Type: BLOOD SPECIMENOrdering Facility: [facility] Address: [address] [place], [place] [phone] Performed By: #### 2 9374-6, 51623-7, 72054-1, 13881-8, 28266-2, ANAIFS, 86673-9, 59612-8, 82044-9, 95961-7, 06471-7 ####[facility] LABIA [id number] [address] BEATRIZ GPS NAVIGATION INSTALLER Ab Ser-aCncon 2021 Ribonucleoprotein extractable nuclear Ab Qn (S) <0.2 Normal <1.0 [facility] Comment on above: Order Comment: Speci men Type: BLOOD SPECIMENOrdering Facility: [facility] Address: [address] [place] [address] Performed By: #### 2 9374-6, 04635-9, 82020-8, 79170-0, 92175-9, ANAIFS, 42613-1, 64933-1, 91250-6, 91570-2, 90079-9 ####[facility] LABCLIA [id number] [place] [address] [place] Ribonucleoprotein extractable nuclear Ab Qn (S) 0.3 AI Normal <1.0 [facility] Comment on above: Order Comment: Speci men Type: BLOOD SPECIMENOrdering Facility: [facility] Address: [address] [place] [address] Performed By: #### 2 9374-6, 07206-9, 69625-1, 21509-0, 21818-9, ANAIFS, 27530-0, 68275-3, 71777-7, 60116-0, 38019-2 ####[facility] LABCLIA [id number] [address] [place] BEATRIZ SM IgG Ser-aCncon 2021 Reyes extractable nuclear IgG Qn (S) <0.2 Normal <1.0 [facility] Comment on above: Order Comment: Speci men Type: BLOOD SPECIMENOrdering Facility: [facility] Address: [address] [place] [address] Performed By: #### 2 9374-6, 44392-0, 96072-8, 15716-1, 51444-0, ANAIFS, 73355-0, 90133-2, 04389-5, 86355-4, 34990-0 ####[facility] LABCLIA [id number] [place] [address] [place] BEATRIZ SS-A Ab Ser-aCncon 01-27 Sjogrens syndrome-A extractable nuclear Ab Qn (S) 0.4 AI Normal <1.0 [facility] Comment on above: Order Comment: Speci men Type: BLOOD SPECIMENOrdering Facility: [facility] Address: [address] [address] Result Comment: Test Methodology: Multiplex flow immunoassay. Performed By: #### 2 9374-6, 46340-6, 17432-9, 54381-3, 21085-3, ANAIFS, 33453-9, 57269-6, 59685-6, 32441-4, 41816-0 ####[facility] [id number] [address] OF [facility] BEATRIZ SS-B Ab Ser-aCncon 01-27 Sjogrens syndrome-B extractable nuclear Ab Qn (S) <0.2 Normal <1.0 [facility] Comment on above: Order Comment: Mani [facility] Type: BLOOD SPECIMENOrdering Facility: [facility] Address: [address] [place] [address] Result Comment: Anti -SSB (anti-La) antibody is used as an aid in diagnosis of a variety of systemic autoimmune diseases, especially for Sjogren's syndrome and systemic lupus erythematosus. Clinical correlation is required. Test Methodology: Multiplex flow immunoassay. Performed By: #### 2 9374-6, 42118-9, 13096-9, 47588-8, 20033-6, ANAIFS, 30561-8, 79233-9, 19086-3, 27916-1, 63697-7 ####[facility] [id number] [address] OF 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 This makes a diagnosis of hereditary hemochromatosis very unlikely. Other forms of iron overload and other types of hemochromatosis exist. The sample is negative for the C282Y and S65C variants. Methodology: Patient DNA is evaluated for C282Y (c.845G>A, p.Yed347Mls, NM_000410.3), H63D (c.187C>G, p.Bra42Teh, NM_000410.3) and S65C variant (c.193A>T, p.Egj50Ntq, NM_000410.3) missense variants in the HFE gene (NM_000410.3, GRCh37(hg19)) by multiplex polymerase chain reaction (PCR) followed by melting curve analysis. Disclaimer: This test was developed and its performance characteristics determined by [facility] Pathology and Laboratory Medicine [place] ([facility]). It has not been cleared or approved by the FDA. RT-PLME is regulated under CLIA as certified to perform high- complexity testing. This test is used for clinical purposes. It should not be regarded as investigational or for research. Testing and interpretation performed at [facility], [address] [place] [address]. CLIA Number: [id number] As reviewed by Jaqueline Oropeza, PhD, [facility] Performed By: #### H EMDNA ####[facility] [id number] [place] [address] [place] HISTORY PHYSICALon 2 HISTORY PHYSICAL HNO ID: [id number] Author: Dedrick Shea MD Service: Hospital Medicine Author Type: Physician Type: HANDP Filed: 01/27/2022 11:52 AM Note Text: DEPARTMENT OF HOSPITAL MEDICINE SERVICE DATE: 01/27/2022 Code Status: Not on file SERVICE TIME: 9:53 AM Primary Care Physician: Lizy Soria, NIGHT AND WEEKEND COVERAGE: LUCIA COVERAGE: Days: [phone], please contact via [employer] Nights: floor: please page [facility] Hospitalist night cover [phone] - 4th floor: please page Hospitalist night cover [phone] - 5th floor: please page [facility] [phone] This is a 36 year old female who presents with upper abdominal pain, nausea, vomiting for last 2-3 weeks. 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 She was sent by her Funeral Pre Need Consultant to the ED for the nausea, vomiting, [...] input from (more content not included)... Normal [facility] Brigida-1 extractable nuclear Ab Qn (S)on 01-27-2022 BRIGIDA 1 ANTIBODY QUAL Negative Normal Negative [facility] Comment on above: Order Comment: Mani dia Type: BLOOD SPECIMENOrdering Facility: [facility] Address: [address] [address] Result Comment: Anti -BRIGIDA-1 antibody is used as an aid in diagnosis of polymyositis and dermatomyositis especially with pulmonary involvement. A negative result cannot rule out polymyositis or dermatomyositis. Clinical correlation is required. Test Methodology: Multiplex flow immunoassay. Performed By: #### 2 9374-6, 78738-2, 24318-2, 94560-1, 73250-0, ANAIFS, 29877-9, 45382-4, 34348-8, 21666-2, 06012-6 ####[facility] [id number] [place] [address] [place] Mitochondria Ab IF Ql (S)on 01-27-2022 Mitochondria M2 Ab IA Qn (S) 6.6 Units Normal <=20.0 [facility] Comment on above: Order Comment: Mani dia Type: BLOOD SPECIMENOrdering Facility: [facility] Address: [address] [place] [address] Performed By: #### 1 7284-1 ####[facility] LABIA [id number] [place] [address] [place] Mitochondria M2 Ab Ql (S) Negative Normal Negative [facility] Comment on above: Order Comment: Mani dia Type: BLOOD SPECIMENOrdering Facility: [facility] Address: [address] [address] Result Comment: Anti -mitochondrial antibody test is used as an aid in diagnosis of primary biliary cholangitis. Clinical correlation is required. Performed By: #### 1 7284-1 ####[facility] [id number] [place] [address] [place] Nuclear Ab IA Ql (S)on 01-27 CHRIS BY EIA, QUAL Positive Abnormal Negative [facility] Comment on above: Order Comment: Speci men Type: BLOOD SPECIMENOrdering Facility: [facility] Address: [address] [place] [address] Result Comment: The qualitative antinuclear antibody screen test performed using enzyme immunoassay including the following antigens: dsDNA, histones, SS-A, SS-B, Sm, Sm/GPS NAVIGATION INSTALLER, Scl-70, Brigida-1, and centromeric antigens. Performed By: #### 2 9374-6, 57812-8, 91704-7, 67304-5, 96502-3, ANAIFS, 11318-3, 83380-0, 93098-4, 73364-5, 33027-9 ####[facility] [id number] [place] [address] [place] Ribonucleoprotein extractabl e nuclear Ab Qn (S)on 01-27-2022 ANTI-GPS NAVIGATION INSTALLER QUAL Negative Normal Negative [facility] Comment on above: Order Comment: Poloi ifeoma Type: BLOOD SPECIMENOrdering Facility: [facility] Address: [address] [place] [address] Performed By: #### 2 9374-6, 23765-8, 83198-0, 05840-7, 47697-5, ANAIFS, 89801-5, 50120-8, 21812-6, 19058-5, 81988-6 ####[facility] [id number] [place] [address] [place] RIBOSOMAL GPS NAVIGATION INSTALLER QUAL Negative Normal Negative [facility] Comment on above: Order Comment: Speci men Type: BLOOD SPECIMENOrdering Facility: [facility] Address: [address] [place] [address] Result Comment: Anti -Ribosomal RNA (Ribosomal P) antibody is used as an aid in diagnosis of systemic autoimmune diseases especially systemic lupus erythematosus and mixed connective tissue disease. Cross-reactivity with Anti-reyes antibody is not uncommon. Clinical correlation is required. Test Methodology: Multiplex flow immunoassay. Performed By: #### 2 9374-6, 72632-5, 00995-2, 45343-2, 58243-8, ANAIFS, 20203-6, 04384-5, 32985-2, 03487-0, 46548-0 ####[facility] LABCLIA [id number] [address] [place] SCL-70 extractable nuclear I gG IA Qn (S)on 01-27-2022 SCLERODERMA AB QUAL Negative Normal Negative [facility] Comment on above: Order Comment: Speci men Type: BLOOD SPECIMENOrdering Facility: [facility] Address: [address] [place] [address] Performed By: #### 2 9374-6, 96829-0, 20410-6, 22094-7, 26906-6, ANAIFS, 39602-4, 89240-9, 02043-8, 06113-2, 73199-3 ####[facility] [id number] [address] [facility] SCLERODERMA IGG AB <0.2 Normal <1.0 [facility] Comment on above: Order Comment: Mani dia Type: BLOOD SPECIMENOrdering Facility: [facility] Address: [address] [place] [address] Result Comment: Scl- 70/Scleroderma antibody test is used as an aid in diagnosis of systemic sclerosis especially the diffuse cutaneous form. A negative result cannot rule out systemic sclerosis. The final interpretation should consider clinical picture and other test results such as anti-centromere antibody. Test Methodology: Multiplex flow immunoassay. Performed By: #### 2 9374-6, 33940-5, 10353-0, 19478-6, 64543-8, ANAIFS, 07878-9, 86152-8, 01249-2, 67917-2, 96711-0 ####[facility] LABCLIA [id number] [address] [place] Sjogrens syndrome-A extracta ble nuclear Ab Qn (S)on 01-27-2022 SSA ANTIBODY QUAL Negative Normal Negative [facility] Comment on above: Order Comment: Speci men Type: BLOOD SPECIMENOrdering Facility: [facility] Address: [address] [address] Performed By: #### 2 9374-6, 91723-8, 06534-0, 95275-3, 92993-8, ANAIFS, 34722-0, 97004-0, 74823-2, 11343-2, 30294-8 ####[facility] [id number] [address] [place] Sjogrens syndrome-B extracta ble nuclear Ab Qn (S)on 01-27-2022 SSB ANTIBODY QUAL Negative Normal Negative [facility] Comment on above: Order Comment: Speci men Type: BLOOD SPECIMENOrdering Facility: [facility] Address: [address] [place] [address] Performed By: #### 2 9374-6, 31264-0, 79764-2, 00206-9, 34681-9, ANAIFS, 10078-1, 17086-6, 78423-2, 40680-7, 15074-7 ####[facility] [id number] [address] [place] Reyes extractable nuclear Ig G Qn (S)on 01-27-2022 SM ANTIBODY QUAL Negative Normal Negative [facility] Comment on above: Order Comment: Speci [facility] Type: BLOOD SPECIMENOrdering Facility: [facility] Address: [address] [place] [address] Result Comment: Anti -Sm (Reyes) antibody is used as an aid in diagnosis of systemic lupus erythematosus and its presence is associated with renal disease. A negative result cannot rule out systemic lupus erythematosus. Clinical correlation is required. Test Methodology: Multiplex flow immunoassay. Performed By: #### 2 9374-6, 18460-7, 03467-7, 53294-9, 76981-5, ANAIFS, 88679-6, 07581-4, 16576-5, 06620-3, 91379-6 ####[facility] [id number] [place] [address] [place] T4 Free SerPl-mCncon 022 Free T4 [Mass/Vol] 1.2 ng/dL Normal 0.9-1.7 [facility] Comment on above: Order Comment: Speci men Type: BLOOD SPECIMENOrdering Facility: [facility] Address: [address] [place] [address] Performed By: #### 3 024-7 ####[facility]ITAL[facility] [id number] [address] [place] TOX SCREEN ROUT URon 022 Amphetamines Confirm (U) [Mass/Vol] Negative Normal Negative [facility] Comment on above: Order Comment: Speci men Type: URINE SPECIMENOrdering Facility: [facility] Address: [address] [place] [address] Result Comment: Cuto ff threshold at 1000 ng/mL. Performed By: #### U TOX2 ####[facility] [id number] [address] [place] BARBITURATES, URINE Negative Normal Negative [facility] Comment on above: Order Comment: Speci men Type: URINE SPECIMENOrdering Facility: [facility] Address: [address] [place] [address] Result Comment: Cuto ff threshold at 200 ng/mL. Performed By: #### U TOX2 ####[facility] [id number] [place] [address] [place] BENZODIAZEPINES, UR Negative Normal Negative [facility] Comment on above: Order Comment: Speci men Type: URINE SPECIMENOrdering Facility: [facility] Address: [address] [address] Result Comment: Cuto ff threshold at 200 ng/mL. Performed By: #### U TOX2 ####[facility] [id number] [place] [address] [place] CANNABINOIDS,URINE Positive Abnormal Negative [facility] Comment on above: Order Comment: Speci men Type: URINE SPECIMENOrdering Facility: [facility] Address: [address] [place] [address] Result Comment: Cuto ff threshold at 50 ng/mL. Performed By: #### U TOX2 ####[facility] [id number] [place] [address] [place] Cocaine Ql (U) Negative Normal Negative [facility] Comment on above: Order Comment: Speci men Type: URINE SPECIMENOrdering Facility: [facility] Address: [address] [place] [address] Result Comment: Cuto ff threshold at 300 ng/mL. Performed By: #### U TOX2 ####[facility] [id number] [place] [address] [place] Ethanol (U) [Mass/Vol] <11 Normal <11 [facility] Comment on above: Order Comment: Speci men Type: URINE SPECIMENOrdering Facility: [facility] Address: [address] [place] [address] Performed By: #### U TOX2 ####[facility] [id number] [place] [address] [place] Opiates Screen Ql (U) Positive Abnormal Negative [facility] Comment on above: Order Comment: Speci men Type: URINE SPECIMENOrdering Facility: [facility] Address: [address] [place] [address] Result Comment: Cuto ff threshold at 300 ng/mL. Performed By: #### U TOX2 ####[facility] [id number] [place] [address] [place] oxyCODONE cutoff Screen (U) [Mass/Vol] Positive Abnormal Negative [facility] Comment on above: Order Comment: Speci men Type: URINE SPECIMENOrdering Facility: [facility] Address: [address] [address] Result Comment: Cuto ff threshold at 100 ng/mL. Performed By: #### U TOX2 ####[facility] [id number] [address] [place] Phencyclidine Ql (U) Negative Normal Negative [facility] Comment on above: Order Comment: Speci men Type: URINE SPECIMENOrdering Facility: [facility] Address: [address] [place] [address] Result Comment: Cuto ff threshold at 25 ng/mL. Performed By: #### U TOX2 ####[facility] [id number] [place] [address] [place] dsDNA Ab Ser IA-aCncon 01-27 DNA double strand Ab IA Qn (S) 12.88 IU/mL Normal <30 [facility] Comment on above: Order Comment: Speci men Type: BLOOD SPECIMENOrdering Facility: [facility] Address: [address] [place] [address] Result Comment: Nega tive for ds DNA Antibodies. <30 IU/mL Negative 30-74 IU/mL Equivocal >74 IU/mL Positive Performed By: #### 2 9374-6, 17542-2, 09627-0, 91992-9, 19733-2, ANAIFS, 48167-2, 18548-1, 74095-2, 37375-6, 89040-1 ####[facility] LABCLIA [id number] [facility] [id number] [place] AST SerPl-cCncon 01-26-2022 AST [Catalytic activity/Vol] 334 U/L High 13-35 [facility] Comment on above: Order Comment: Speci men Type: BLOOD SPECIMENOrdering Facility: [facility] Address: [address] [place] [address] Performed By: #### 1 920-8 ####[facility] LABORATORYIA [id number] [place] [address] [place] CBC W Auto Differential pane l (Bld)on 01-26-2022 Basophils (Bld) [#/Vol] 10*3/uL Normal <0.11 [facility] Comment on above: Order Comment: Speci men Type: BLOOD SPECIMENOrdering Facility: [facility] Address: [address] [address] Performed By: #### 5 7021-8 ####[facility] LABORATORYCLIA [id number] [address] [id number] [place] Basophils/100 WBC (Bld) 0.5 % Normal [facility] Comment on above: Order Comment: Speci men Type: BLOOD SPECIMENOrdering Facility: [facility] Address: [address] [address] Performed By: #### 5 7021-8 ####[facility] LABORATORYCLIA [id number] [place] [address] [place] Differential cell count method Nom (Bld) Auto Normal [facility] Comment on above: Order Comment: Speci men Type: BLOOD SPECIMENOrdering Facility: [facility] Address: [address] [address] Performed By: #### 5 7021-8 ####[facility] LABORATORYIA [id number] [place] [address] [place] Eosinophils (Bld) [#/Vol] 0.09 10*3/uL Normal <0.46 [facility] Comment on above: Order Comment: Speci men Type: BLOOD SPECIMENOrdering Facility: [facility] Address: [address] [address] Performed By: #### 5 7021-8 ####[facility] LABORATORYCLIA [id number] [place] [address] [place] Eosinophils/100 WBC (Bld) 2.2 % Normal [facility] Comment on above: Order Comment: Speci men Type: BLOOD SPECIMENOrdering Facility: [facility] Address: [address] [address] Performed By: #### 5 7021-8 ####[facility] LABORATORYCLIA [id number] [place] [address] [place] Erythrocyte distribution width (RBC) [Ratio] 12.7 % Normal 11.5-15.0 [facility] Comment on above: Order Comment: Speci men Type: BLOOD SPECIMENOrdering Facility: [facility] Address: [address] [address] Performed By: #### 5 7021-8 ####[facility] [id number] [address] [place] Hematocrit (Bld) [Volume fraction] 42.1 % Normal 36.0-46.0 [facility] Comment on above: Order Comment: Speci men Type: BLOOD SPECIMENOrdering Facility: [facility] Address: [address] [place] [address] Performed By: #### 5 7021-8 ####[facility] [id number] [place] [address] [place] Hemoglobin (Bld) [Mass/Vol] 14.4 g/dL Normal 11.5-15.5 [facility] Comment on above: Order Comment: Speci men Type: BLOOD SPECIMENOrdering Facility: [facility] Address: [address] [place] [address] Performed By: #### 5 7021-8 ####[facility] [id number] [place] [address] [place] Immature granulocytes (Bld) [#/Vol] 10*3/uL Normal <0.10 [facility] Comment on above: Order Comment: Speci men Type: BLOOD SPECIMENOrdering Facility: [facility] Address: [address] [place] [address] Performed By: #### 5 7021-8 ####[facility] [id number] [address] [place] Immature granulocytes/100 WBC (Bld) 0.2 % Normal [facility] Comment on above: Order Comment: Speci men Type: BLOOD SPECIMENOrdering Facility: [facility] Address: [address] [address] Performed By: #### 5 7021-8 ####[facility] [id number] [place] [address] [place] Lymphocytes (Bld) [#/Vol] 1.39 10*3/uL Normal 1.00-4.00 [facility] Comment on above: Order Comment: Speci men Type: BLOOD SPECIMENOrdering Facility: [facility] Address: [address] [address] Performed By: #### 5 7021-8 ####[facility] [id number] [address] [place] Lymphocytes/100 WBC (Bld) 34.2 % Normal [facility] Comment on above: Order Comment: Speci men Type: BLOOD SPECIMENOrdering Facility: [facility] Address: [address] [address] Performed By: #### 5 7021-8 ####[facility] [id number] [place] [address] [place] MCH (RBC) [Entitic mass] 32.6 pg Normal 26.0-34.0 [facility] Comment on above: Order Comment: Speci men Type: BLOOD SPECIMENOrdering Facility: [facility] Address: [address] [address] Performed By: #### 5 7021-8 ####[facility] [id number] [address] [place] MCHC (RBC) [Mass/Vol] 34.2 g/dL Normal 30.5-36.0 [facility] Comment on above: Order Comment: Speci men Type: BLOOD SPECIMENOrdering Facility: [facility] Address: [address] [address] Performed By: #### 5 7021-8 ####[facility] [id number] [place] [address] [place] MCV (RBC) [Entitic vol] 95.2 fL Normal 80.0-100.0 [facility] Comment on above: Order Comment: Speci men Type: BLOOD SPECIMENOrdering Facility: [facility] Address: [address] [address] Performed By: #### 5 7021-8 ####[facility] LABORATORYCLIA [id number] [address] [id number] [place] Monocytes (Bld) [#/Vol] 0.26 10*3/uL Normal <0.87 [facility] Comment on above: Order Comment: Speci men Type: BLOOD SPECIMENOrdering Facility: [facility] Address: [address] [address] Performed By: #### 5 7021-8 ####[facility] LABORATORYCLIA [id number] [place] [address] [place] Monocytes/100 WBC (Bld) 6.4 % Normal [facility] Comment on above: Order Comment: Speci men Type: BLOOD SPECIMENOrdering Facility: [facility] Address: [address] [address] Performed By: #### 5 7021-8 ####[facility] LABORATORYIA [id number] [place] [address] [place] Neutrophils (Bld) [#/Vol] 2.30 10*3/uL Normal 1.45-7.50 [facility] Comment on above: Order Comment: Speci men Type: BLOOD SPECIMENOrdering Facility: [facility] Address: [address] [address] Performed By: #### 5 7021-8 ####[facility] LABORATORYCLIA [id number] [place] [address] [place] Neutrophils/100 WBC (Bld) 56.5 % Normal [facility] Comment on above: Order Comment: Speci men Type: BLOOD SPECIMENOrdering Facility: [facility] Address: [address] [address] Performed By: #### 5 7021-8 ####[facility] LABORATORYCLIA [id number] [facility] [place] [address] [place] Nucleated RBC (Bld) [#/Vol] 10*3/uL Normal <0.01 [facility] Comment on above: Order Comment: Speci men Type: BLOOD SPECIMENOrdering Facility: [facility] Address: [address] [address] Performed By: #### 5 7021-8 ####[facility] LABORATORYIA [id number] [place] [address] [place] Nucleated RBC/100 WBC (Bld) [Ratio] 0.0 /100 WBC Normal [facility] Comment on above: Order Comment: Speci men Type: BLOOD SPECIMENOrdering Facility: [facility] Address: [address] [place] [address] Performed By: #### 5 7021-8 ####[facility] [id number] [place] [address] [place] Platelet mean volume (Bld) [Entitic vol] 10.0 fL Normal 9.0-12.7 [facility] Comment on above: Order Comment: Speci men Type: BLOOD SPECIMENOrdering Facility: [facility] Address: [address] [place] [address] Performed By: #### 5 7021-8 ####[facility] [id number] [place] [id number] [place] Platelets (Bld) [#/Vol] 152 10*3/uL Normal 150-400 [facility] Comment on above: Order Comment: Speci men Type: BLOOD SPECIMENOrdering Facility: [facility] Address: [address] [address] Performed By: #### 5 7021-8 ####[facility] LABORATORYIA [id number] [place] [address] [place] RBC (Bld) [#/Vol] 4.42 10*6/uL Normal 3.90-5.20 [facility] Comment on above: Order Comment: Speci men Type: BLOOD SPECIMENOrdering Facility: [facility] Address: [place] [address] Performed By: #### 5 7021-8 ####[facility] [id number] [place] [address] [place] WBC (Bld) [#/Vol] 4.07 10*3/uL Normal 3.70-11.00 [facility] Comment on above: Order Comment: Speci men Type: BLOOD SPECIMENOrdering Facility: [facility] Address: [place] [address] Performed By: #### 5 7021-8 ####[facility] LABORATORYCLIA [id number] [place] [address] [place] ABD/PEL W IVCONon 01-26- 022 CT ABD/PEL W IVCON * * *Final Report* * * DATE OF EXAM: Jan 26 2022 5:46PM [facility] 0530 - CT ABD/PEL W IVCON / [...] Tissues: No significant finding. Lower thorax: Unremarkable. Transit Vehicle Inspector (topogram) images: IMPRESSION: 1. No acute findings are identified. 2. Nonobstructive short segment intussusception involving small bowel in the left abdomen which can be seen as a transient finding in adults. 3. Postsurgical changes. 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 Operator Hydraulic: PSCB Transcribe Date/Time: Jan 26 2022 6:07P Dictated by : TOM RAIN MD This examination was interpreted and the report reviewed and electronically signed by: TOM RAIN MD on Jan 26 2022 6:46PM EST [id number] Normal [facility] Comprehensive metabolic 2000 panelon 01-26-2022 Albumin [Mass/Vol] 3.8 g/dL Low 3.9-4.9 [facility] Comment on above: Order Comment: Speci men Type: BLOOD SPECIMENOrdering Facility: [facility] Address: [address] [address] Performed By: #### 2 4323-8, 3016-3, 3040-3 ####[facility] LABORATORYCLIA [id number] [facility] [place] [address] [place] ALP [Catalytic activity/Vol] 205 U/L High 34-123 [facility] Comment on above: Order Comment: Speci men Type: BLOOD SPECIMENOrdering Facility: [facility] Address: [address] [id number] Performed By: #### 2 4323-8, 3016-3, 3040-3 ####[facility] LABORATORYCLIA [id number] [place] [address] [place] ALT [Catalytic activity/Vol] 182 U/L High 7-38 [facility] Comment on above: Order Comment: Speci men Type: BLOOD SPECIMENOrdering Facility: [facility] Address: [address] Performed By: #### 2 4323-8, 3016-3, 3040-3 ####[facility] [id number] [place] [address] [place] Anion gap [Moles/Vol] 15 mmol/L Normal 9-18 [facility] Comment on above: Order Comment: Speci men Type: BLOOD SPECIMENOrdering Facility: [facility] Address: [address] [address] Performed By: #### 2 4323-8, 3016-3, 3040-3 ####[facility] [id number] [place] [address] [place] AST [Catalytic activity/Vol] Normal [facility] Comment on above: Order Comment: Speci men Type: BLOOD SPECIMENOrdering Facility: [facility] Address: [address] [place] [address] Result Comment: Unab le to assay due to interference from hemolysis. Suggest reorder as clinically indicated. Performed By: #### 2 4323-8, 3016-3, 3040-3 ####[facility] [id number] [place] [address] [place] Bilirubin [Mass/Vol] 0.8 mg/dL Normal 0.2-1.3 [facility] Comment on above: Order Comment: Speci men Type: BLOOD SPECIMENOrdering Facility: [facility] Address: [address] [address] Performed By: #### 2 4323-8, 3016-3, 3040-3 ####[facility] [id number] [place] [address] [place] Calcium [Mass/Vol] 9.5 mg/dL Normal 8.5-10.2 [facility] Comment on above: Order Comment: Speci men Type: BLOOD SPECIMENOrdering Facility: [facility] Address: [address] [address] Performed By: #### 2 4323-8, 3016-3, 3040-3 ####[facility] LABORATORYCLIA [id number] [place] [address] [place] Chloride [Moles/Vol] 94 mmol/L Low 97-105 [facility] Comment on above: Order Comment: Speci men Type: BLOOD SPECIMENOrdering Facility: [facility] Address: [address] [place] [address] Performed By: #### 2 4323-8, 3016-3, 3040-3 ####[facility] LABORATORYCLIA [id number] [place] [address] [place] CO2 [Moles/Vol] 26 mmol/L Normal 22-30 [facility] Comment on above: Order Comment: Speci men Type: BLOOD SPECIMENOrdering Facility: [facility] Address: [address] [place] [address] Performed By: #### 2 4323-8, 6-3, 3040-3 ####[facility] [id number] [place] [address] [place] Creatinine [Mass/Vol] 0.94 mg/dL Normal 0.58-0.96 [facility] Comment on above: Order Comment: Speci men Type: BLOOD SPECIMENOrdering Facility: [facility] Address: [address] [place] [address] Performed By: #### 2 4323-8, 6-3, 3040-3 ####[facility] LABORATORYIA [id number] [place] [address] [place] ESTIMATED GLOMERULAR FILTRATION RATE 81 mL/min/1.73m??? Normal >=60 [facility] Comment on above: Order Comment: Speci men Type: BLOOD SPECIMENOrdering Facility: [facility] Address: [address] [place] [address] Result Comment: Breana mated Glomerular Filtration Rate [...] Performed By: #### 2 4323-8, 6-3, 3039-3 ####[facility] LABORATORYCLIA [id number] [place] [address] [place] Glucose [Mass/Vol] 119 mg/dL High 74-99 [facility] Comment on above: Order Comment: [facility] Type: BLOOD SPECIMENOrdering Facility: [facility] Address: [place] [address] Result Comment: The [place] Diabetes Association (ADA) provides guidance for cutoff [...] Standards of Medical Care in Diabetes 2016, [place] [employer]. Diabetes Care. 2016.39(Suppl 1). Performed By: #### 2 4323-8, 6-3, 3039-3 ####[facility] LABORATORYCLIA [id number] [place] [address] [place] Potassium [Moles/Vol] 4.0 mmol/L Normal 3.7-5.1 [facility] Comment on above: Order Comment: [facility] Type: BLOOD SPECIMENOrdering Facility: [facility] Address: [place] [address] Performed By: #### 2 4323-8, 6-3, 3039-3 ####[facility] LABORATORYCLIA [id number] [place] [address] [place] Protein [Mass/Vol] 7.3 g/dL Normal 6.3-8.0 [facility] Comment on above: Order Comment: Speci men Type: BLOOD SPECIMENOrdering Facility: [facility] Address: [address] [place] [address] Performed By: #### 2 4323-8, 3016-3, 3040-3 ####[facility] LABORATORYCLIA [id number] [place] [address] [place] Sodium [Moles/Vol] 135 mmol/L Low 136-144 [facility] Comment on above: Order Comment: Speci men Type: BLOOD SPECIMENOrdering Facility: [facility] Address: [address] [place] [address] Performed By: #### 2 4323-8, 3016-3, 3040-3 ####[facility] LABORATORYIA [id number] [place] [address] [place] Urea nitrogen [Mass/Vol] 12 mg/dL Normal 7- [facility] Comment on above: Order Comment: Speci men Type: BLOOD SPECIMENOrdering Facility: [facility] Address: [place] [address] Performed By: #### 2 4323-8, 3016-3, 3040-3 ####[facility] LABORATORYIA [id number] [place] [address] [facility] [place] ED NOTEon 01-26-2022 ED NOTE HNO ID: [id number] Author: Jena Murphy RN Service: ? Author Type: Registered Nurse Type: ED Notes Filed: 01/26/2022 8:39 PM Note Text: Pt ambulated to bathroom [facility] ED NOTE HNO ID: [id number] Author: Jena Murphy RN Service: ? Author Type: Registered Nurse Type: ED Notes Filed: 01/26/2022 7:12 PM Note Text: Report received from ARMANI Rodriguez [facility] ED NOTE HNO ID: [id number] Author: Jennifer Esparza RN Service: ? Author Type: Registered Nurse Type: ED Notes Filed: 01/26/2022 7:06 PM Note Text: Report to ARMANI Bella. Pt given crackers for PO challenge [facility] ED NOTE HNO ID: [id number] Author: Jennifer Esparza RN Service: ? Author Type: Registered Nurse Type: ED Notes Filed: 01/26/2022 5:47 PM Note Text: Pt to and from CT. [facility] ED NOTE HNO ID: [id number] Author: Tova Uribe RN Service: ? Author [...] up, bed in locked and low position [facility] ED PROV NOTEon 01-26-2022 ED PROV NOTE HNO ID: [id number] Author: Mark Delgado MD Service: Emergency Medicine [...] within nor (more content not included)... Normal [facility] FERRITIN BLDon 01-26-2022 Ferritin [Mass/Vol] 589.0 ng/mL High 14.7 - 205.1 ng/mL [facility] HEP B CORE AB TOTALon 2021 HBV core Ab Ql (S) Positive Abnormal Negative [facility] HEP B SURF AB QUALon 022 HBV surface Ab Ql (S) Positive Abnormal Negative [facility] HEP B SURF AG SCRNon 022 HBV surface Ag Ql (S) Negative Negative [facility] HEP C AB IA W/CONF SCRNon HCV Ab Ql (S) Negative Negative [facility] HISTORY PHYSICALon HISTORY PHYSICAL HNO ID: [id number] Author: Shaun Conteh MD Service: Hospital Medicine Author Type: Physician Type: HANDP Filed: 01/27/2022 3:29 AM Note Text: DEPARTMENT OF HOSPITAL MEDICINE HISTORY AND PHYSICAL EXAM SERVICE DATE: 01/26/2022 Code Status: Not on file SERVICE TIME: 8:15 PM Primary Care Physician: Lizy Soria, DO NIGHT AND WEEKEND COVERAGE: LUCIA COVERAGE: Days: [phone], please contact via [employer] SecureMessage Nights: [phone] - 3rd floor: please page CC Hospitalist night cover [phone] - 4th floor: please page CC Hospitalist night cover [phone] - 5th floor: please page [facility] Hospitalist night cover [phone] Subjective CHIEF COMPLAINT: nausea, vomiting, upper abdominal [...] normal. Oropharyn (more content not included)... Normal [facility] Iron and Iron binding capaci ty [facility] 01-26-2022 Iron [Mass/Vol] 214 ug/dL High 41 - 186 ug/dL [facility] Iron binding capacity [Mass/Vol] Low 232 - 386 ug/dL [facility] Iron/TIBC [Molar ratio] High 15.0 - 57.0 % [facility] Lipase SerPl-cCncon 01-27-20 Lipase [Catalytic activity/Vol] 73 U/L High 16-61 [facility] Comment on above: Order Comment: Mani dia Type: BLOOD SPECIMENOrdering Facility: [facility] Address: [address] [place], [place] [address] Performed By: #### 2 4323-8, 3016-3, 3040-3 ####[facility] LABORATORYCLIA [id number] [facility] [place] [address] [place] PT panel Coag (PPP)on 2021 INR Coag (PPP) [Relative time] 1.0 {INR} Normal 0.9-1.3 [facility] Comment on above: Order Comment: [facility] Type: BLOOD SPECIMENOrdering Facility: [facility] Address: [address] [place] [address] Result Comment: Zakia min K Antagonist (VKA) Therapeutic Range: INR 2 to 3 (Target INR of 2.5) Note: For patients treated with VKA drugs, such as warfarin, the [place] [employer] 2012 Guideline recommends [...] Chest 2012, 141:7S-47S Dina RA, et al. [facility] 2017, 70: 252-289 Performed By: #### 3 4528-0 ####[facility] LABORATORYCLIA [id number] [place] [address] [place] [facility] PT Coag (PPP) [Time] 10.8 s Normal 9.7-13.0 [facility] Comment on above: Order Comment: Speci men Type: BLOOD SPECIMENOrdering Facility: [facility] Address: [place] [address] Performed By: #### 3 4528-0 ####[facility] LABORATORYCLIA [id number] [place] [address] [facility] Smooth muscle Ab Ql (S)on Actin Smooth Muscle IgG Qualitative Negative Negative [facility] Actin Smooth Muscle IgG Quantitative 16 Units <20 Units [facility] TSH BLDon 01-26-2022 TSH Qn 4.750 m[IU]/L High 0.270 - 4.200 mIU/L [facility] TSH SerPl-aCncon 01-26-2022 TSH Qn 4.430 m[IU]/L High 0.270-4.20 0 [facility] Comment on above: Order Comment: Speci men Type: BLOOD SPECIMENOrdering Facility: [facility] Address: [address] [id number] Result Comment: If t he patient is , TSH reference range varies by gestational period: First Trimester (weeks 9-12): 0.180-2.990 mIU/L Second Trimester: 0.110-3.980 mIU/L Third Trimester: 0.480-4.710 mIU/L Nathan Castaneda et al. A Practical Approach for the Verifications and Determination of Site- and Trimester-Specific Reference Intervals for Thyroid Function tests in . Thyroid, 2019:29:3:412-420. Khoi Tam, et al. 2017 Guidelines of the [place] Thyroid Association for the Diagnosis and Management of Thyroid Disease during and the . Thyroid, 2017:27:3:315-389. Performed By: #### 2 4323-8, 3016-3, 3040-3 ####[facility] LABORATORYCLIA [id number] [facility] [place] [address] [place] US ABD RIGHT [...] steatosis. No cholelithiasis or biliary ductal dilatation. 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 Operator Hydraulic: CHENG Transcribe Date/Time: Jan 26 2022 3:57P Dictated by : TIANA CUEVAS MD This examination was interpreted and the report reviewed and electronically signed by: TIANA CUEVAS MD on Jan 26 2022 4:08PM EST [id number] Normal [facility] Comprehensive metabolic 2000 panelon 01-25-2022 Albumin [Mass/Vol] 4.1 g/dL 3.9 - 4.9 g/dL [facility] ALP [Catalytic activity/Vol] 198 U/L High 34 - 123 U/L [facility] ALT [Catalytic activity/Vol] 159 U/L High 7 - 38 U/L [facility] Anion gap [Moles/Vol] 9 mmol/L 9 - 18 mmol/L [facility] AST [Catalytic activity/Vol] 294 U/L High 13 - 35 U/L [facility] Bilirubin [Mass/Vol] 0.6 mg/dL 0.2 - 1 .3 mg/dL [facility] Calcium [Mass/Vol] 9.5 mg/dL 8.5 - 10. 2 mg/dL [facility] Chloride [Moles/Vol] 100 mmol/L 97 - 10 5 mmol/L [facility] CO2 [Moles/Vol] 28 mmol/L 22 - 30 mmol/L [facility] Creatinine [Mass/Vol] 0.93 mg/dL 0.58 - 0.96 mg/dL [facility] Estimated Glomerular Filtration Rate 82 mL/min/1.73m >=60 mL/min/1.7 3m [facility] Glucose [Mass/Vol] 113 mg/dL High 74 - 99 mg/dL [facility] Potassium [Moles/Vol] 4.0 mmol/L 3.7 - 5.1 mmol/L [facility] Protein [Mass/Vol] 7.7 g/dL 6.3 - 8.0 g/dL [facility] Sodium [Moles/Vol] 137 mmol/L 136 - 144 mmol/L [facility] Urea nitrogen [Mass/Vol] 15 mg/dL 7 - 21 mg/dL [facility] ASAEL CONNORS PANELon 022 EBV EA AB, QUAL Positive Abnormal Negative [facility] Comment on above: Order Comment: Mani dia Type: BLOOD SPECIMENOrdering Facility: [facility] Address: [address] [address] Result Comment: The clinical utility of EBV early antigen (EA) testing is unclear. The antigen used is EA-D and EA-D IgG can be found in some healthy blood donors, inconsistently during acute infectious mononucleosis, and in patients with nasopharyngeal carcinoma. The final interpretation should be done in the context of other EBV serology panel results. Performed By: #### E BVPNL ####[facility] LABCLIA [id number] [address] [place] EBV NA AB, QUAL Positive Abnormal Negative [facility] Comment on above: Order Comment: Mani dia Type: BLOOD SPECIMENOrdering Facility: [facility] Address: [address] [address] Result Comment: EBV nuclear antigen IgG typically appears from several weeks to several months after primary EBV infection and may remain elevated for life but it may become undetectable in certain immunocompromised individuals. The final interpretation should be done in the context of other EBV serology panel results. Performed By: #### E BVPNL ####[facility] LABCLIA [id number] [address] EBV VCA IGG, QUAL Positive Abnormal Negative [facility]ad Comment on above: Order Comment: Speci [facility] Type: BLOOD SPECIMENOrdering Facility: [facility] Address: [address] [place] [address] Result Comment: The result suggests recent or past EBV infection. The final interpretation should be done in the context of other EBV serology panel results. Performed By: #### E BVPNL ####[facility] [id number] [address] EBV VCA IGM, QUAL Negative Normal Negative [facility] Comment on above: Order Comment: [facility] Type: BLOOD SPECIMENOrdering Facility: [facility] Address: [address] [place] [address] Result Comment: No s erological evidence of recent EBV infection. Performed By: #### E BVPNL ####[facility]PITAL[facility] [id number] [address] [place] [facility] INTERPRETATION (EBVPNL) Reactivation Normal [facility] Comment on above: Order Comment: [facility] Type: BLOOD SPECIMENOrdering Facility: [facility] Address: [address] [place] [address] Performed By: #### E BVPNL ####[facility] LABIA [id number] [address] Consultation Noteon 01-21-20 Consultation Note [id number]#[id number]:127 Normal [facility] CBC W Ordered Manual Differe ntial panel (Bld)on 01-19-2022 Basophils (Bld) [#/Vol] 0.03 10*3/uL <0.11 k/uL [facility] Basophils/100 WBC (Bld) 0.5 % [facility] Differential cell count method Nom (Bld) Auto [facility] Eosinophils (Bld) [#/Vol] 0.13 10*3/uL <0.46 k/uL [facility] Eosinophils/100 WBC (Bld) 2.3 % [facility] Erythrocyte distribution width (RBC) [Ratio] 12.8 % 11.5 - 15.0 % [facility] Hematocrit (Bld) [Volume fraction] 40.1 % 36.0 - 46.0 % [facility] Hemoglobin (Bld) [Mass/Vol] 14.5 g/dL 11.5 - 15.5 g/dL [facility] Immature granulocytes (Bld) [#/Vol] <0.10 k/uL [facility] Immature granulocytes/100 WBC (Bld) 0.2 % [facility] Lymphocytes (Bld) [#/Vol] 2.33 10*3/uL 1.00 - 4.00 k/uL [facility] Lymphocytes/100 WBC (Bld) 40.9 % [facility] MCH (RBC) [Entitic mass] 33.9 pg 26.0 - 34.0 pg [facility] MCHC (RBC) [Mass/Vol] 36.2 g/dL High 30.5 - 36.0 g/dL [facility] MCV (RBC) [Entitic vol] 93.7 fL 80.0 - 100.0 fL [facility] Monocytes (Bld) [#/Vol] 0.33 10*3/uL <0.87 k/uL [facility] Monocytes/100 WBC (Bld) 5.8 % [facility] Neutrophils (Bld) [#/Vol] 2.87 10*3/uL 1.45 - 7.50 k/uL [facility] Neutrophils/100 WBC (Bld) 50.3 % [facility] Nucleated RBC (Bld) [#/Vol] <0.01 k/uL [facility] Nucleated RBC/100 WBC (Bld) [Ratio] 0.0 /100 WBC [facility] Platelet mean volume (Bld) [Entitic vol] 10.0 fL 9.0 - 12.7 fL [facility] Platelets (Bld) [#/Vol] 184 10*3/uL 150 - 400 k/uL [facility] RBC (Bld) [#/Vol] 4.28 10*6/uL 3.90 - 5.20 m/uL [facility] WBC (Bld) [#/Vol] 5.70 10*3/uL 3.70 - 11.00 k/uL [facility] Comprehensive metabolic 2000 panelon 01-19-2022 Albumin [Mass/Vol] 3.9 g/dL 3.9 - 4.9 g/dL [facility] ALP [Catalytic activity/Vol] 107 U/L 34 - 123 U/L [facility] ALT [Catalytic activity/Vol] 103 U/L High 7 - 38 U/L [facility] Anion gap [Moles/Vol] 10 mmol/L 9 - 18 mmol/L [facility] AST [Catalytic activity/Vol] 326 U/L High 13 - 35 U/L [facility] Bilirubin [Mass/Vol] 0.3 mg/dL 0.2 - 1 .3 mg/dL [facility] Calcium [Mass/Vol] 8.7 mg/dL 8.5 - 10. 2 mg/dL [facility] Chloride [Moles/Vol] 94 mmol/L Low 97 - 10 5 mmol/L [facility] CO2 [Moles/Vol] 25 mmol/L 22 - 30 mmol/L [facility] Creatinine [Mass/Vol] 0.88 mg/dL 0.58 - 0.96 mg/dL [facility] Estimated Glomerular Filtration Rate 87 mL/min/1.73m >=60 mL/min/1.7 3m [facility] Glucose [Mass/Vol] 96 mg/dL 74 - 99 mg/dL [facility] Potassium [Moles/Vol] [facility] Protein [Mass/Vol] 8.0 g/dL 6.3 - 8.0 g/dL [facility] Sodium [Moles/Vol] 129 mmol/L Low 136 - 144 mmol/L [facility] Urea nitrogen [Mass/Vol] 13 mg/dL 7 - 21 mg/dL [facility] Direct antiglobulin test.karen y specific reagent Ql (RBC)on 01-19-2022 DAGT, Polyspecific AHG Negative [facility] FERRITIN BLDon 01-19-2022 Ferritin [Mass/Vol] 602.0 ng/mL High 14.7 - 205.1 ng/mL [facility] Iron and Iron binding capaci ty panelon 01-19-2022 Iron [Mass/Vol] 140 ug/dL 41 - 186 ug/dL [facility] Iron binding capacity [Mass/Vol] [facility] Iron/TIBC [Molar ratio] [facility] LD LACTATE DEHYDROon 022 LDH [Catalytic activity/Vol] 435 U/L High 135 - 214 U/L [facility] RETIC COUNTon 01-19-2022 Reticulocytes (Bld) [#/Vol] 0.37890 10*3/uL 0.018 - 0.100 M/uL [facility] Reticulocytes (Bld) [#/Vol]o n 01-19-2022 Reticulocytes/100 RBC (Bld) 1.5 % 0.4 - 2.0 % [facility] TSH BLDon 01-19-2022 TSH Qn 4.180 m[IU]/L 0.270 - 4.200 mIU/L [facility] VITAMIN B12 BLOODon 01-20-20 Cobalamin (Vitamin B12) [Mass/Vol] 923 pg/mL 232 - 1,245 pg/mL [facility] IntraOperative Documentson 1 03-08-2021 IntraOperative Documents [id number]#[id number]:127 Normal [facility] Physician Referralon 022 Physician Referral [id number]#[id number]:127 Normal [facility] Coding Summary.on 01-05-2022 Coding Summary. CD:[id number] Gh0bWw+ PGhlYWQ+SH3QOEUsP41sbFDdyP1 FN3hWQQ5GGVHIEKLYMJ1TFK6ppH X3KRpgV5HujqEf QxvtrMIvDW53MNc7CWK9fJqtPMp nyG3sqIXaG9b3FuOjLH60xF40DL qeGFCqSjH2DdTtjtuxgBVg Z8axFgIxyJKsApp+PHRhYmxlIHd jQKPdWBxrAWVwVeEegChjIY7nLe 9yZGVyLWNvbGxhcHNlOiBj g0ywYOYgMRfeSI3cpPvsF5OyeTT 0PFCrf7j7Vc63cGX+LHGaKME6uK xwBFdyy087QjXfb7anENM8 qPQqEMrsDOA2K15op3V0WIQjATM bJCG8wWC8vB1zuVfluimfC7TftY MwEfZ7HQM1lBMhkX6rjUwy ldabxD1nSjo+N43EDQ3MEKNMET7 TUtf9V5UlNwjlxRF+DG20FWRxBX 33iRHbwZOxf2cysKx8FyMj OCSrYLS6sOjuGKlrm6XkFKJiK91 kdBMcc5B5AKXzwXflrOMcKzYqrK J0yW3cLZfsakivx3enpflg Xofxi9sdgx87jH51L56bTCdiEMP rMTW6UJWgHGMjwGaqch1azN7zHs 8+NWdou0hsc4vkkYc3MhOb QDSeebCdrPqoBEH8q2ClFz21N7U uvCejc6RyVlr4vh76aIZiu7O6wB Q6DBrbUEEziA3zMFbvWgX0 CMUqIbWalI74hJReTKaeZe0ofAx ijVwgQX3kLXSwhgwhMIPqoG6fWM HytLZrnCbwYJ3kGMRnbcap o292IaXwUWA8QUEcqJYhN7FidO2 xMwLqIFKhPTSuB7PhzMBbKRnlT5 47SIctSpW8MDQwatWeT7Va TGSuoNywQjY4a4Q3Hs2Wc8Gmqvk vSXN7VVdoFILfPfP2XwCyKxJ6T6 LjOqz9UIIaoGfhOH7nT9Ek QJLgqypulnadyYS5HGEdRFZleS2 9cBAyFZwmIs5az9M7j666EWSlQS NzvQ64Mr2rpLfiKISjsOFJ rW8wkimka0vkmvyuSuQsPITdUDj 7MPk5PTWrgZhdZcTcXWB6ZcZ1KI Q2qXErqI8hqJaqtsdaxP1v Oyc+X89vkS1lBZW1FZO7npqkCJP byfRfCE58TH79R3CsOcnmnAIxwZ U+FWNxraVbjUxmGM6cMbRm w0txs2XwWMehN0PcKXOoFAqcRvh 7TUKjTUK7uDU5iY6rTPMdPQopn4 Y8yDF4L5HpscBric2gz4su OKJjTAdiM38wpDRlz2Y7ONDwwBG 5PESzjGkdSdHyxW48Bww+PGNvbG gsc9SjPzqwu7hyn4qocAt7 UcHsEKCblbAquLhbFJZ6z0HrSk6 1M08hBInaZZWuZOLzPRKhXHTzlH mtzk4nqP0vAd1+PGNvbCB3 fVQ9rE8lCKUgOiH7FSrxU992UpG kdNBpVwmej1onu9wsrZe0LjBaOJ BhndMxlBbjYVX9b7HqXh56 U27gBDyaXADcKJZnDZFeLFKpkRc kue4llI9jRa2+AC1el1eevq05hK 48dHI+FXIrWWF9dHniHNns MUGbjK6oKPlvOjY1HCEiPiUdzL3 3nQUgCCsoGv7ppRcutBvsXV6kDS Zqwwnfb255OvTbr7zpOJJb gLKiGMowHTC6S02lw0A8OLWkTKX tNQG9zXM7kD9plRlrhlddvGAnnI vekfJnjGyhNNzkHAqmK996 IHRvcDsnPlBhdGllbnQgTmFtZTo 2J9RfKqm4YVVguLawCY3mxYZdGE spZg3dyPkkvLhoES3fYOIo mgnzd499SbTfo3ylYUZitHGzYNj sNKT7Q22ku4R0BBXyOWKaHQO8fI L3nP8tbKqjysnhnAUlsBft xxJddQajMBugRVlvE141YRKcrQa wNjShvdFnMQFkyTJ8QK36IE72eF Gxn3M4mVO7J0IxHSVkzjhy gogwqUK2DYDhDEHvfB20Fa1tsOl oOa5cWDHhNRZ3QSDciHKdM0PlxH 5wUnOcAXLxIWSiU2QjiXHy VYtnE014IJedPrE2DFFwbcEaL9K iTFQabJyxAbK4j7M4Yt6VE2K1CW 07KB65fBTey6G1xSU0H2Sx EDHkmakvecjfzRV3YKKsMRJtcT9 1Xm3eoAwmYu8tUXHgRNM0OCItlX CuT7MubZ9xLiWmZZUrQUUm H8KbwOYaXTfvG446IXotOnG5OBN uuvQjU5HoBDCgiMovWeP9h0J4Yp 7XXPr9OU41OH94cZDbc1Q2 rWB9J4DhTSJrukqtrpaegUG7OSD pPZGrmS31Cf1sjObnYi3wXVCaNL T6WNRitETmJ8JucD5jPnVv YPQbWFYlE4HadTQePRzpZ416LXa zRgP3BDKkifXqF2OmVRUtkKylBf M4b4M4Bm6JYKUiDN71UZI6 jWE3IY18ME56M7ZnNuvncFHqmXL +PHRhYmxlIHdpZHRoPScxMDAlJy HdlWbeZM8hCi7uBXPoPRKc mGwmtZCaFwFay6tbCIEvWOwrPB6 biDzcZ1QbjQR8UGGty8s4Ni68N9 4fQ0UgbOH+UOTfuNF9xJC6 iM8hErUjXcT2RLuaJ126BqRbnKB gZxagy3bwq2ucbGy9QnB8LKNiyu NcaJsgZTZ4o8SrPn01L97h IHdpZHRoPSIxNSUiIHZhbGlnbj0 ooU8gYs1+ZNCryHG8hYD2sK8eEq QaKqY0TBxfN301QhUfsVXs Qiucr9vzt7uhePu3DfCvZAAzriW ipEeoKTB7d6KzVp30L2GndLene1 CwQcc4sj99gFZok9A1uYU6 Q6PyXROqvltenPGaiShmYV1qRYJ eamrcTYUvoW6cXLDiS4s1XxUmMo C7AJvjS6QbzbS7SLHcqMXu AHcwGSG6C30fx8G9EBXoEPKzCOG 9rJR7uE6qhClcjgkeuYWbcFuwgk XpdFifVZrdDWhmI607UNHl oSdcZTKldL4gPYGmgGHjvQpzLP3 qBRKicmvqClHQQ9gAATfgQPUZZj DACAc3W0OyCqt6HSCaySec RE4phTFsMLxgHt6yaRjfzDnfDS2 dIAYhqaopIDBvaA6dEVSzkACzmT xhWJ0wRZFdgzctl018YiZp NVE3MSBkdASrX5HwkU8cMvNdVBO vBXIgL7OvhFHkXVtxR648UAqxFu N0YQKkbkGyP1YvYTIqsFmt CjY1c0S8Ae8cNB6zAZ5yJSf5UD8 8RO18cFQzh2D3wFO8W8KaEIIqle kozeiztKK3DZIbJMBwxO70 eJBnLTjuMq2wb9A0k017RQUdOCO frV19Sr2tyFeuJJXnbCAXtS8whe cgr2upxukyTtLqSHTcQYy2 PIl4TJTmwRxdNkHkRWK3YhH0YTK 5jQRcbH6imGxkvlmaaC1hNpu+Mz IkRNSdpzN2B9EpFvx3QLDj eNstWF1fjUWqAOrqZl5ghBtazWn vML5gSRDtyaseZURzdY8wRZLnqU KtgUziLE4jRGZzftwfu404 UdNfKAU2OBLqsVPjZ2WhmV9dEmE lDLKsYNFkR2JsvIUtHLoxD512ZY rbFzN7EZZabfTxQ3JoQSNi qCxhLaF5h2Q8Su1GCU9knNK8N4T uRja7BJQmyWesSQ3slJSuCXvlTi 5laZvfzRedVU9oDCIfwsfk FTTppX7dJSYyqMZbbGxmDJ8aMFF jxurtd883EoShRYY2ZXPsiPKoR4 YflU3uWmLbWDThWZZtD6Ra tPGgRKnrY513JPuqViE8HREtnzE eV6MbXBTvpUhiOkY9h9H7Pk4LRP PfOSIiyPIdZoS3X5WjQbks dHI+DR43UCFvXQ68rKRcgJKvu4u smGs6HhKnAABxMCX7nZmmHMuyp9 KbDAAmI80yrZDim4R1CORk zYiwpQPcJqIrmCD6eJ8nMXyzyyn pl2nosfclNotak5pqln84qV17N2 9sIHdpZHRoPSIzMCUiIHZh nQsddp8etG2tCh3+SCUipSI0pIN 6cE5pBuQpZxB1RQsuA311PwPeaS GrNbmhl6cfq2iyyFu8CqEi XPHmwuYdbMgzDOK7a0TjId50Y45 sIHdpZHRoPSIyMCUiIHZhbGlnbj 7kiE8aTp8+SP6kn9rlhs04 bS90qRW+KURfLJO8wMgtJAhbLMM cqR0jERljYrQ1VBTzChEwvX45iD LeOEddGy0zcYgptDreDO6k QDDmlmvpx554PmMrg6akNRSbxQA tGEmtZMJ5F16pz5Z9KFIjQXTlUJ Z7pIR4iK4fdCahyowrzXPn nCsdzhNghVjoSZtcRMjyU109XCS wbKjnUuRrmWYgV1vkfaPWIL9tWu wvdGQ+PPPkLDD3cKfiHUet GQPxgO5pBJXgS6f9BkHcGvO9OJw kV1MufxH3ZBAlhMPbDLQqtGQMrT 7hhyowt9mgqbpfNgQsRJKu KMx0VNw0NFExxRhpZmTgVEN9MkZ 5EAZ3hTPezW3ruKeajagnuX8dJy c+RklOOjwvdGQ+PHRkIHN0 hEluWMgmVHEncD7rKPGuL8b5VmW iFsW2JOjoT6CfizG7FDRdfPNdJW OumNLNoS2xewbib7szjyzu EfKyUWQcCEq7XCv9QODotSknQsQ rUEM7MbK8VMB7iIHrhL6ktIqonf dvoX7gQza+TVJOOjwvdGQ+ GLQfVYR8bCprBXbqBTCeyR7iLZC kC8b2QaAlWtX1LTycK7OnujO4RP KlrDCpTPFsjSAKyV8wyokd s5yvrjamSoJhKDZvDXs0VGq4SGA mhWmbMePsQDM4YcG0NKY3zZGieJ 9pmBhpjddxfA3oOuv+UGF5 WXK0XF59QA73U4LiOcszsQNzqEL +PHRhYmxlIHdpZHRoPScxMDAlJy PnpUrkBU8oIv4ePTAsAKAo bGxh (more content not included)... Normal [facility] Main OR Intraoperative Recor don 01-05-2022 Main OR Intraoperative Record IntraOp Document Type FT Summary Primary Physician: Obed MASON MD Finalized Date/Time: 01/05/22 08:30:21 Pt. Name: BEN BARRO.B./Sex: 1985 Female Med Rec #: [id number] Physician: Obed MASON MD Financial #: [id number] Pt. Type: O Room/Bed: / Admit/Disch: 01/02/22 [...] Anesthesiologist Scrub - Primary Surgeon - Primary Senior Reservoir Engineer Time In 01/02/22 08:46:00 01/02/22 08:46:00 01/02/22 08:46:00 Time Out 01/02/22 08:59:00 01/02/22 08:59:00 01/02/22 08:59:00 Procedure EGD(.), SIGMOIDOSCOPY(.) EGD(.), SIGMOIDOSCOPY(.) EGD(.), SIGMOIDOSCOPY(.) Comments Dr. Reyes supervising Last Modified By: Tiffany LOMELI, Radha Allen RN, Radha Roy RN 01/02/22 09:00:52 01/02/22 09:00:52 01/02/22 09:00:52 Entry 4 Case Attendee Radha Allen RN Role Performed Operation Agent - Primary Time In 01/02/22 08:46:00 Time [...] Primary Surgeon LÓPEZ ALFRED, Obed MASON MD, Oebd Start 01/02/22 08:49:00 01/02/22 08:49:00 Stop 01/02/22 [...] and tissue Entry 1 Skin Integrity Intact, Stryker, Warm, and Skin Abnormality No Dry Outcomes Met? Yes Last Modified By: Radha Allen RN 01/02/22 07:49:26 Post-Care Text: The patient is free from signs and symptoms of injury caused by extraneous objects Patient Positioning FT Pre-Care Text: Identifies physical alterations that require additional precau (more content not included)... Normal [facility] Coding Summary.on 01-04-2022 Coding Summary. CD:[id number] Gh0bWw+ PGhlYWQ+SE8EIDKsL51zoZWigH4 DJ8oIQF0LFXWBHNNTDT4NQY9cjX D0GDauF2VvgpFk CkmakYYtNS64LLc0NKM4iNyxNJq wzC3yiUIhD2i9XbXkWK40nQ18HK wvISGyHqQ9LrGanacwpDGq X5evTzXdwDRbWbw+PHRhYmxlIHd fJDEpADmjNXSdCoIrfYhpYX7pHu 9yZGVyLWNvbGxhcHNlOiBj b6tsCZXxBTtqBG1mkXaxZ7HzxBT 6APEwj0y4Pa30qAI+BCNgSHT5iH tjBYrdo969RrUmv2dmINP8 sBUdRJvlGRV8O59nw3Q5XLHsFZT cKMJ6kAM8iB7jkFpieyijW1GmoQ NiHsF9VBZ4sKRniE9zxYtm ebeezC3tXli+P06RPD4UANHUHL3 MRwf7G8ZuCvfziWN+LE11SBXfTV 53yBBqpHCjs6ipsIb6QxGt NCIyCAR5oRbfKXqxu7OaFLGvN84 dkNLkj6I1VQCbdNgytSJoUtCpxA M0vW5eMRtftwtmg3fqwaix Mrmti9jybc50rS82M37nSWaoGVP zNFM0RNJbLILydOvgpx6xvO0oVg 8+KCdlk8vbs3drwNd4UoJc XYWcnnClyYvaRYJ7i6InPp40O4L dzMepz9JkSyp2md12tLAxm2D7fC U4WEhnCNDutW8xKChlSpE8 YWYmXnHgwU28vRVzUGliCr8mrBg hzJtdZE5yGOYnwoqrJEPshD7mWF AcwCAbaPkyDP9kDKSmgbyg i557LpReCUJ8EKXizYLlE3SsqV8 nVrHlCEWnYJGuT4OamSOwGIgkX8 46OKulLlT3PLJmrrUgK4Su OWEosQxtKaQ5c8T7Wz9Ru6Ahffi sZCT2GKtaZCQxYhB9FxRxHyP1A1 FoKbi5PYSoaTndZB2tN8Ax BHAsnkakrtmjlHB0VXHlPLYnoB5 3iIOsRFtqSj0fo0R4x410BXBtAA IztH07Kf7nkHcgVPDcfAYQ bA8jooktq9aajcbxOgPlADXjBHq 6FWg5WCBpwXwbZrWvDJW2FuT3AF U6dCNeqU6pnDyybsemzF2s Oyc+W29vjF9kSWJ8LGD7lkhxRCG evjJcSZ44DU47Y1MmNdhibMSfaD U+WJAodkQliTqoON4oBnZe c9pzu0GhHGrvJ7PdSTDmWTpeBbp 1MUGzPUF9iKV7fJ0dLNDgARkas9 Q3zIT4N5GkfiAtpn4lr9gr OXKoHCwqE12riTDvv4M8HSBarUX 5GWUwdXivNlIxiN03Ycc+PGNvbG dty1WiLdmmm2cyg2koxPx2 EuChDYYuctStyNphDJT2p7EmNx9 7P31gTBrdTRFtZSYtOVKaMSYjfQ fbnr7gyC9tKt8+PGNvbCB3 hMD1wS0tDLZvNoR7GOtvF340VfQ llVSqUqmyg5tmh1jotGy3BrFlVK PmfwBgtOndEHP0a3SiWy94 I30qPUlaZDMjSLYaCYQrMHKcrHs dis8vrQ8xIc5+WH1kp5kmke12sR 48dHI+TGPkLFL7pEjfKUjy YVAqlK9kFTzkFrI8MEXdZlRpnC8 3jHMhRXmoYg5toSxswVwrTX0lWT Daonmbd991JtOdx1ozOWZj iLJrVQzxABJ5O28iv3B6GFTkVYC qPBM2iPZ9rT6gsSxtlupieBEtaI lmwnNxaRvkZVjnNSgvD173 IHRvcDsnPlBhdGllbnQgTmFtZTo 6X9BpDwm1KGVisZpaWD7fpOIsIP szJy0jaHgveSbkOR8xUINd wprpn423SnVev0efTGMcqDRqGVw iUHI1G41tt5V2AVVwZKIqJZL3pC C1dH5yhBpudrcyiTQdvDxv gmEoeUgpYSneHYwqR397BWQiuBv rLzTwdxNqAGNjvRL9QD71HN37mI Xoc9W4bOV3C5McVIAyieza gnqbnIT0CPYdVOUgoV31Rj7osDg fIt1iAFIoIIQ8OVZvfZVbH1AznN 1uIrRjXCHxRXMtL6ZrxZUy WPrjK140JAvsBfS9MTDiksZsZ4M eYTUeeLifOzW3s4U5Sr5HA4E2JN 57GQ19iEGvr3Q3fJG6K4Eb PYFrnfcvwpamlMT1AGSgXDAqdZ5 5Tr2jfNyyZv2gXIXqTYK1FOXtkG AtG3GzyZ5lRnCwUJKwBCMp C0WyyYDuGOflG736JHtuPwX4WEK uyvEmX6ZzINMzlFtnQiI1u9L6Jo 0UCXp6XG40GM96oCXup7X4 hST8K9FuOIDbgguopquipCZ9JGM zJSXhrL75Tk8tyYpwHd8zAOEtIF K6CNPkmIUaY2TfbV1xAxYf PQUuJKZiD3CldQBuEHjkK120LRr mTtJ0WLJjyyBhJ0WyKXQkcHjoXo O0y2M9Ra3LCKAwCP94HRH3 wKP5NQ86ZN28M2ZsFaabpEWznFU +PHRhYmxlIHdpZHRoPScxMDAlJy PpjGryJJ5mYs6aIYGhANYm nRkveGPwIdEvp0ucCYMoRVdbBS6 mzDapU5OcmOG8NZAqn6z7Ei90C1 2xO1EzrNE+UZUgdZY1nTM0 nP8xLoZtGuZ2EGkrO167XnKezQC cYyzkh1udr4trrNh7CwA3UZNovm KliSdaWRJ8u7FaXs33S58b IHdpZHRoPSIxNSUiIHZhbGlnbj0 bdX6hQs6+AXDnsKF4rWG6qG1lHa UbLfK4GUfcF933ZkYxeXYu Fsnyz1jns8gevIi7YyVuFRHopxQ wkVspDXI9z7JwJu33U1NddQnwt9 MnPlk1bj41pUMqz0C6yXS1 C3FkGPQyxorqyTQszDxeEF7pAWI wujuhTRNjjA2lICFeR0t5GrHrKb Q1IZztY9LzwpO0WPDoaCCq NMqyIEG6S12dz9P8WSAnJHOoLCV 2qPW9nD5blYckaqorbXJgyGkibp PtoCqmIDlhOHisW545IABp aGjmFUFttV6lMGOtdZBwbRtzWS0 dIPIlratvWqOUJ6wBPVkeYQLPZp LMYJl3V8ZoCra5MCYreEuq XY0pgWBvLNslRd3ulEztcIxaWE0 kUNTvrxmpMAXmaG9jDGMyzHMaaN edHH0zNDLpfrroz539EfHi GSM9MPZdhCKuC9AkjT2aUuBqKSP tZSQhC3WrrQPmPNzwF842SWjwLo R1JJRdtoEuB3IoNSLooDfq DzS1u7Q4Ir1eHC1oAV5xZNf1OJ8 7TS34xZEfc7W9tNZ6Q4WsPYRfvi iaftmyiVU7HUCbGWTxzW96 mNFfYTnxMq4hb9O4m070HLQoAPV pjR79Fe8meSweTDZbkKOXkZ4bec rsx6xyzxnxRhYqICFzUSp2 HIz3GYMiaTsnVnJvMTT3TeK5XJU 1oQHkhT6mvXgbtenvlH6yGem+Mz SfOWRyyqZ9X1YdRzv3YEQp jJqqYX1axUBsSXczDf7vpFniwRx qQG1pHEDilyfySLOeaL1uSVUlkX ZbzAciTC2lXTZwfjwbo816 QhCwDWI7CHWdrFGgO4ZsyJ9hFwI jTQDfCBTnZ5PooXTpKGhyC722YD xlCcP8DCPzlwLtW3EcGGFj hSbaXqY1a8M5Bn0OTR2ssDJ6C7P uDwr7LZTeiNvcRO8kpADcVHmoAy 1jpAjyrNiqPC3dQGNrtzyc OGUmoW4bEMYwiZXgjKtsYX5bEVJ unsslo972RzVgBBZ7FSGdzSNyP1 HvaT4kKdTaHWQgXKAiN7Wj nYRgFCodW412VHqlHxP1CFPmzmL sW5MeTXHsuIaiTnV4p4Q5Aw6UkD ZdQQKpQG28YM21BP45V7Sb PjwvdGFibGU+PHRhYmxlIHdpZHR cFZcaADQhCwKiuOzkDY1aKu9eIM VeGTRunHgnqHOcBwTem0ng LFOwMZvoIN2icPrzH1VooVV3CAN ff5c7Do40S71jH7IphPR+PGNvbC F4zDA1kN8uLvYnZvT6DKgx O391YzJodJOeFdlys2fjb2atyOq 6PwGwVRDvxmFwvTjtNXR2z3AdTh 87L48vJFkfUTJgAKUcYUGs XPSfqUvosw2nwR5uAm7+PGNvbCB 0dAR3jK8kGsXnSeN6SNjkB028Qx ZsvBMmVlniQ47eP5UjqWH+ UJOhPlv3FQHxuLtcUG5laLGrSHf zVb8fBPN5UzBdPkPfUGlvF8NuWQ PffojdhotkcCO6LCYvDJVa bR34Ae5ofEscSp8bWXJlRBN2ALP zqCRuU3QppK8dFbVbIJBwDEHuP0 QszAXxAExaA616LTsyXcX3 LNFeolUpQ0EhSJGxtYjjWuS9c8A 0Mz1IqVryxZWpPM5jPoHxOQh8Q7 GdXyf4XDEtdKblZX9wlFFp VTphEi2qsVqigNqkHD1uGHWhsjq dc041TzMtp5miZFIgcRAgFRlfZB H6X97hs1R4ODNzYNLeIBO0 sSX4tL8ptRltdgxgsDLraPgyekQ pePjiIDjeTLbeB036BFTndVfnOa AWPqc3M5CtVrd6FCVzoMss XV3ksUNcNUwvQp1suTzruOirBZ1 xLGVdubbre974GoJoz1tkAWVsyM MaCPbhJQN5M66ds8P2TBJp ACAqJMX1nSB5sW3zdGdpjzesoTX ccKwahwPczYbgZWwtOCfoZ319BV ZvzHzwGj9XJhg0X7GvTlo0 JLEtzJdiBM5baASpCLaxUl6suFx nbVqnUS1pLZYzpqpuf605DoCaf6 lyQHAjfPWtRNvhOSQ6K48q o5T3XHLiJXUzAZK0rIC7hW2ydRe nbjogbGVmdDsgdmVydGljYWwtYW uwT893APXevSxbSjYakCOt OjwvdGQ+AQ98df08T7YuCeqpVzl 0ODQqOBD6yOC6wH6jSOSfTSylz1 P9kTG9Y7AsisVilq6lo0rk YXBz (more content not included)... Normal [facility] Coding Summary. CD:[id number] Gh0bWw+ PGhlYWQ+JC5OHFMlG24afZQeiL6 JV9tRGE7ZOTJIDJUSMK3VTU8esM D3FZewL3ZilpBw AukolXFrUD66WQr8LNW6cWnjBEa loM4ysCNhR0v6HuRyJF24hM45AP hyHMHzFqU1BaFtjyyjkWQq D9qlSrHitPFvZef+PHRhYmxlIHd xPTQtCVxrHMVeFwEpwSkjIJ0hLe 9yZGVyLWNvbGxhcHNlOiBj s3dqTKSwKIevQH8ejXglO3XeiKF 9OMEka1d7Cd34pRJ+WYUxNBJ2aV hcJFpca864SwHlh1aqPDY0 vWZzEPtlGHL8A72jd2D4QDIbOWW eDDZ4rOE3hK8pzDykmiwyZ8UlpA QxQvQ6ZJI8yIBwsZ9wpMgj gpauqH9nEsm+M14IQH5IODJDWH1 IHhj3T5ArPqctzLX+LH36ULHqIL 36cEUcvYIsk7fhxNa2CgSz OTEaAPE1kLpzDZuel7AtUCOoA50 oeOIrf5X8JAUgfZioaFQiMdGzyC Z8bV9qETkmlrwmh6krojze Mevwu8arev06dE69C28aKVciAAO tADQ9HHRoEATqbKftkt5qtX5iRh 8+NWqir3znh2zbuNh3QnRr WLUarjXjvVirUSD2a7VoPr98V7U vrUgzg4FyCvn3pa07mLPdz9D1sA N4KEikNGNrxD3uVJgiXmS3 QFIiChZsmB81mXVaEJcdZe4jiPl saSzlIB4vZHPyflaeWSVziC0yLQ JyzARmnLarRY0uXYUwhzvj v852RaWrMSC5CLXsjUVrF9XaaT4 sSrAzLMAvEIFuZ9OfwTHeDQwvW1 55KCxgHxT4YDXqbiWwJ3Io MCQxuRcuUqR0i3O2Hf5Er7Zjlvh bSQW2RTdoUJIkCwP5FpGzNyB9N2 FlPsb7FINilEpnTK8rC5Gw NMGlxqjlaogieSG7GVWwBVDwyU9 5pTXgCJnfMd5dc4M0f987RWZpOS PvrX52Vh3ysFfxQEOovNVY vN8jangxy7yduyedXsNpFQJoPTk 5BWs3GSPwnAvpDkScGGD4DrV4UK I3jNBkcE6daGecyjcetT2l Oyc+Y42djL2eERL8CFG6ymryTWF sqcGjMJ05XF71F6TmOzkgyRKxfA U+RIXdyeDkaXvfKW0kMmFi v1jmh4EvCRigG0IqMIWsPYkxMkg 0LFPsFFK3gTP6mP6gSQTsYJwuw5 B1rLD9X3RdmuOjcc8vc7ay EYMlUAazM33blCPbl6B0HRHmzER 1MOLimOalViRhcN64Uqt+PGNvbG gdw7AyFubcd0yca2efpPz6 NdUtRRVobiOfrHiuTRO5a3HeKf4 2W04sSKelBGWjHTCuBCQiGGVtwS fpxg3hjZ3hFb5+PGNvbCB3 xZP0hB3xNPFeRpY6YCwnK975ZyM glREqVllek6bcg5rvyPh2PsOtBO LaxsJmlYbbXPY8r1SxMk46 Z43lYFuqUONoYZIcSYZmEXVbbPm ixt4dcL6bVo6+FC0is1ngsl56iH 48dHI+SVTkEAK5yZehHLge WUOvmX8vLIhcUrK9IIRoLlXerK5 4vSKrSMnrVr4agQtjrSvnAO8mVS Dsoqxiy174JrGpw4abLEVa rFWhBHplSDC4J24us9U8WADgICO rDWU7wME3oK0urGbshwdujDMulA mmhoLraYbyIEvtAFocH938 IHRvcDsnPlBhdGllbnQgTmFtZTo 1I5TcCyd0EKNrpRudYC5jvANuCZ jxRn5tjQwqzAytIR8hNAKz dcihx583IzCwt2wrZZJviDZjTIf aJWJ9H16hj6G9UPLmDQEkZXD0uW C8sE9ppJsnmervlHQeyQnr heNzxVuuBEeySJehZ379QLVyeYy wKnXwzmOqMPDkdKA9DY98QH68qR Tpa6X7uVF6B1DnROVdvusu buvanIK5JJQfMOYnvM29Xw1zoPv lEe1lBTMhBNM9XVQywMOlY4QlsP 2eBvCjPBLiFJXoU8CpyTYg JTwgT725YCgtGcT1TLAcirZjG6U mKDQhgZmgLwG2o4X7Qi3TT5Q2TY 62SN55cWJtc1C7yPQ7E7Op UABbmapnreleaZH5JFAwRMAohV9 4Fo6ktPeoHo5wATTiORB6MIQjvM UiV5FsqZ0iTyAcCNFuUHUa D2ZgsXJvSJfiQ046COuuGoQ5FDW lbrBlP7KsKJJouZldNkT9l1A4Qr 4CKMy4NZ71TB46eRQyl1P7 uYN2P1JwUFKkgcefffwltIP9CZR fYSTewN16Fg3ptUisAv4uEXVaJP A7PBJryMJrF9TixR0sFdCj ONCcALWxT9HfaTEdNZclH307OEw yKxZ9SZDwlxYjZ9MuRHDblEecJk Z7s7B9Og4OCPNgBV66OOO4 dLF9ND56YK05W3RuCememFVhgHM +PHRhYmxlIHdpZHRoPScxMDAlJy MotIhwIL7yFp4gLEWfUBEl nNrvpDGaAcLpv6ftFIDxBKuuME4 rqGkvQ2PkrOS8GFGpq1c4Lw33V5 7dM3UanGO+ZJXfeYN1yMM1 cM6nZrBcZdL3SInkJ630ZkOxbAJ tPielr8ksg4fmtPo1SrO7MHQlyr JovHapQFD4z7ImBg53J00s IHdpZHRoPSIxNSUiIHZhbGlnbj0 tiA0vFs7+SAPnmJM2sHW4bM0fTu UfMjB0XWlxC325WpJumYVv Yitye3lwz2jpeCn1QjRdXLFyuuJ itQguCQC7r4LaMk03J9NpwJpae1 NwJia8mh64iXHmh1U3gRD0 S3YkQFKsmcnlcVNbmVvnGB5jYCN xcdmwIVPnbQ2dOHGbV7c2ZoMoPs Y5LZqfP1FpwzJ5XHFlaSJc HJnhOHX4U39tw8N3GWMbKDVoYCA 2fKJ2lF0miJbkkpdbgQCceJeaki JwnJwmFPypPOrhU415UOWw pNnrOPFyeP1yOEBrzEPehSkqLV0 wATJqetgsNjHQA5nDYQqvVKQEDk GQEHu4W0QsJtj6MWQzaQrz QL1gkXJwLUhnPv3nfVwaoAcyNJ1 uOWKesofyXIOnwN7mUENyaCRknG qbDF9fDACfcywkt380MeMx ARE7JLOswINoK4HxlU2nDnGlSPF iHURjR6JecRSfTBpzS571GUcoMg Q0YVNbbyEyS9MbBFBwkEbf QoP2q6N2Pm1bPC6aWS8eCWw6JY9 2WN75mMFpv9J2wKC0I4QaINIidb vemuoxkIA3SPZxTRSorG30 iEZsXMtvBy7oi9B0t076MWXqGAO ehA31Ir4usHlhTLSpcHUKbD8muf wyn0wxdddjKxXvUWCmJWw2 DEe7WVYmiSerCzGjOGY9HbQ8THG 3aTWbpD5rjWmwbmfozI1qMwy+Mz GeJUPhckZ3N0BtFqw7ABUk mRkpGX7yeZGfDXvqLj6yxAnzdGr cMV2jHIZigudvFTSdgK6oICGrzM BwtGmmMI2pYKIrgostu005 NmMfLOU9MNGbuYZlQ4JnjS1rHvY wWGWwGKDxV9PnoXZfYGwtY942ET hhMdT4DAHuxtYoT7YiHTJl nHetFfL4c4I3Te3CZX2fvPA1E3C hByi1HRCdbUotSC0neWLgHKtdQe 5hhGaabIqaQI3fJFJhsgqn JSYalZ0kEKEpnEGgkKdjIU6lSWN eizycc377RmEwBGN9OLIryCTzC1 EhqE0bJpPdEBRaMRPoO9Pn vRBiZQliV307MBumUjI8LAIeozE yV5EdJKFeqWikQfE0q6G7Fx1NdZ EkJMMgSA07VI19HI17M6Vk PjwvdGFibGU+PHRhYmxlIHdpZHR kLTcsESSzDlUdxUbbVJ0fLw0mHK LxGGUxkObywJOsUoVmh6pc OIKcVPoaZM4qxQslC2HlfXL9JIV od1b9Gq50Z99xK3XfyLS+PGNvbC N6bNW3tO4aIoIyFrK8LBck M357GfFdcVBwTdfsy8wmg8udiNg 9UlVeCTXqhtNadBatXVT0a4KyXv 36I92uYYqyVZOnENGwNAWp LQZjnCysve2jsY9dUx3+PGNvbCB 0lDI9uG8gNpWfDiU9SXcsZ830Xz KhaXIeSmvyP66hX7ZgzKN+ FPNvWyp9SAAdzMnnQT6efHKvEWf wWf9jGWQ0CvLpBmQmKWbjH6XkQP NzuklicgjqcNM0GEUlDRRm uN79Rs5tpButNh9gEGEiPFA0XDW twNGmU4PicG5bKqXoOEHgUVKsW8 SduLDhRNoaE168YXfaAlK6 FOKrljEpS8CgFRGocRkaPwG4t2Q 9Gq5JkIqakAKcJV0oIyHfUEk3D9 ItCqs0XQVfxMtaQN5qdHEk JKrdHy4aoFoieGynZG8nIKXcdcv up501WxSip8pfSGBgzRUkSDtgRC P5Q12eg8G2EHDqFMJqZKG5 qGV8lK4pqSoiyedhrNFitStcghS ubJbzSKqjNQdtY032PDOlgQriDw DPBvm1B1RnNwd5KBVwgLbe LN8ptJUoNTxrKx9lbIpiwOkaID4 oDYBkipzhv409BrHyk4nxJXTkfC NiOBnuSGN9Q94xz1Q1GHNh OBEoZXA4qLT8iP4igVpqusdojIT lmKjrzcQkeApzBOzbMDxpD563JP GjxGclEu2LBbv5J3EcPey1 HJIjlMgwBE1feSEwTQanTu9tvZr ajViwZE5wQKTreukjt180MyAzd7 wbFFOljBCuCMuiLST0X36e a2B4KRFcDHRkQDG3gYE9mG3ivRi nbjogbGVmdDsgdmVydGljYWwtYW viR949LZRunMtpSsNbpVLf OjwvdGQ+VW60vv96Z1TfUzvpRos 2CYWiOOQ2uEF2xS4fHEApUYzrc5 W6iEX8B4AffmOvza0jr8yw YXBz (more content not included)... [facility] Consenton 01-04-2022 Consent [id number]#1.00CD:127 [facility] Discharge Instructionson Discharge Instructions [id number]#1.00CD:127 [facility] Giardia, Direct, EIAon 01-04 G. lamblia Ag IA Ql (Stl) Negative Invalid Interpretation Code Negative [facility] Comment on above: Result Comment: Perf ormed at: [address] [id number] PhD Allyson Diana Performed By: #### 3 [id number], [id number], [id number], [id number], [id number], [id number], [id number] ####[facility] [address] [place] [address] IntraOperative Documentson 1 03-06-2021 IntraOperative Documents [id number]#1.00CD:127 Normal [facility] O & P EXAM, ROUTINE, REFLEXo n 01-04-2022 Ova and parasites identified Concentration Nom (Stl) Comment Invalid Interpretation Code [facility] Comment on above: Result Comment: No o va, cysts, or parasites seen. One negative specimen does not rule out the possibility of a parasitic infection. Performed at: [address] [id number] PhD Allyson Diana Performed By: #### 3 [id number], [id number], [id number], [id number], [id number], [id number], [id number], [id number] ####[facility] [address] [place] [address] O & P Exam, Routineon 2021 Ova and parasites identified LM Nom (Unsp spec) Final report Invalid Interpretation Code [facility] Comment on above: Result Comment: Thes e results were obtained using wet preparation(s) and trichrome stained smear. This test does not include testing for Cryptosporidium parvum, Cyclospora, or Microsporidia. Performed at: [address] [id number] PhD Allyson Diana Performed By: #### 3 [id number], [id number], [id number], [id number], [id number], [id number], [id number], [id number] ####[facility] [address] [place] [address] Postoperative Documentson Postoperative Documents [id number]#1.00CD:127 Normal [facility] WRITTEN AUTHORIZATIONon 12-20 Written Authorization Comment Invalid Interpretation Code [facility] Comment on above: Result Comment: Writ ten Authorization Received. Authorization received from [employer] 01-03-2022 Logged by Alondra Kohli Performed at: [facility] [id number] PhD Allyson Diana Performed By: #### 3 [id number], [id number], [id number], [id number], [id number], [id number], [id number], [id number] ####[facility] [address] [place] [address] Consent for Procedure/Surger yon 01-02-2022 Consent for Procedure/Surgery [id number]#1.00CD:127 Normal [facility] Consent for Procedure/Surgery [id number]#1.00CD:127 [facility] Consent for Treatmenton 12-20 Consent for Treatment [id number]#1.00CD:127 Normal [facility] Endoscopic Procedure Report - Otheron 01-02-2022 Endoscopic [...] then consider a trial of Motegrity Normal [facility] Comment on above: Result Comment: Elec tronically Signed By: LÓPEZ ALFRED, Obed\.br\Date and Time Signed: 01/02/22 09:00 EST Other Comment: Betina harman Attachment - attachment storage system not supported [id number] Can be viewed in source systemMissing Attachment - attachment storage system not supported [id number] Can be viewed in source systemMissing Attachment - attachment storage system not supported [id number] Can be viewed in source system Endoscopic [...] [employer], 2 to 3 cans daily Normal [facility] Comment on above: Result Comment: Elec tronically Signed By: LÓPEZ ALFRED, Obed\.br\Date and Time Signed: 01/02/22 08:58 EST Other Comment: Betina harman Attachment - attachment storage system not supported [id number] Can be viewed in source systemMissing Attachment - attachment storage system not supported [id number] Can be viewed in source systemMissSCSG [employer] Attachment - attachment storage system not supported 3843510 Can be viewed in source systemMissing Attachment - attachment storage system not supported 5416781 Can be viewed in source systemMissing Attachment - attachment storage system not supported [id number] Can be viewed in source system Inpatient Patient Summaryon 01-02-2022 Inpatient Patient Summary [place] [address] [facility] Clinical Discharge Instructions PERSON INFORMATION Name: [facility][id number] PHYSICIANS Admitting Physician: Obed MASON MD Attending [...] day. fluticasone nasal (fluticasone 0.05 mg/inh Nasal [place]) 2 Sprays Nasal Inhalation every day. each [...] D. Refills: 3. omega-3 polyunsaturated fatty acids ([place]-3 Fish Oil 1000 mg oral capsule) 1 [...] Mouth every day. Refills: 3. Comment: Normal [facility] Main OR PACU I Recordon 12-20 Main OR PACU I Record PACU Phase I Document Type FT Summary Primary Physician: Obed MASON MD Finalized Date/Time: 01/02/22 10:49:06 Pt. Name: BEN BARR/Sex: 1985 Female Med Rec #: [id number] Physician: Obed MASON MD Financial #: [id number] Pt. Type: O Room/Bed: / Admit/Disch: 01/02/22 [...] By: Sharlene Paul RN 01/02/22 10:49 Normal [facility] Main OR Preoperative Recordo n 01-02-2022 Main OR Preoperative Record Holding Area Document Type FT Summary Primary Physician: Obed MASON MD Finalized Date/Time: 01/02/22 07:59:35 Pt. Name: BEN BARR /Sex: 1985 Female Med Rec #: [id number] Physician: Obed MASON MD Financial #: [id number] Pt. Type: O Room/Bed: / Admit/Disch: 01/02/22 [...] By: Camilla Felton RN 01/02/22 07:59 Normal [facility] Monitor Recordon 01-02-2022 Monitor Record [id number]#1.00CD:127 Normal [facility] Monitor Record [id number]#1.00CD:127 Normal [facility] Outpatient Surgery Discharge Instructionon 01-02-2022 Outpatient Surgery Discharge Instruction [place] [id number] Patient Discharge Instructions PERSON INFORMATION Name: BEN BARR Date of : 1985 Current Date: 01/02/2022 09:01:34 PHYSICIANS Admitting Physician: LÓPEZ ALFRED, [facility] Discharge Diagnosis: Acute epigastric pain; Change in [...] Additional Instructions: Low-fat and low fiber diet Ngbp-izy-jtnxypa MiraLAX, 17 g daily IF UNABLE TO [...] to serve you. Thank you for choosing [facility] HERE ARE THE MEDICATION CHANGES THAT [...] day. fluticasone nasal (fluticasone 0.05 mg/inh Nasal [place]) 2 Sprays Nasal Inhalation every day. each [...] D. Refills: 3. omega-3 polyunsaturated fatty acids ([place]-3 Fish Oil 1000 mg oral capsule) 1 [...] 3. PATIENT EDUCATION INFORMATION Instructions: Medication Leaflets: [facility] Patient Education - Texton 1 03-04-2021 Patient Education - Text [facility] Progress Note-Physicianon Progress Note-Physician Patient: BEN BARR [...] from PACU when criteria met. Condition good. [facility] Comment on above: Result Comment: Elec [...] days, # 30 cap(s), Refills(s) 0, Pharmacy: [facility], 155, cm, 08/15/21 15:25:00 EDT, Height/Length Dosing, 58.6, kg, 08/15/21 15:25:00 EDT, Weight Dosing Gammagard Liquid 10% injectable solution: 10 gram, SubCutaneous, q4wk, # 1 EA, Refills(s) 11 LORazepam 0.5 mg Tab: 0.5 mg = 1 tab(s), Oral, Once a day (at bedtime), # 4 tab(s), Refills(s) 0, Pharmacy: [facility], 155, cm, 11/01/21 16:20:00 EDT, Height/Length [...] day(s), # 180 tab(s), Refills(s) 3, Pharmacy: [facility], 155, cm, 11/01/21 16:20:00 EDT, Height/Length Dosing, 59.7, kg, 11/01/21 16:20:00 EDT, Weight Dosing [place]-3 Fish Oil 1000 mg oral capsule: 1,000 mg = 1 cap(s), Oral, Daily, # 30 cap(s), Refills(s) 11, Pharmacy: [facility]5, 155, cm, 04/19/21 16:40:00 EST, Height/Length Dosing, 59.6, kg, 04/19/21 16:40:00 EST, Weight Dosing Trileptal 150 mg Tab: 150 mg = 1 tab(s), Oral, BID, # 180 tab(s), Refills(s) 1, Pharmacy: [facility] 1155, 155, cm, 04/19/21 16:40:00 EST, Height/Length Dosing, 59.6, kg, 04/19/21 16:40:00 EST, Weight Dosing Turmeric 500 mg oral capsule: 500 mg = 1 cap(s), Oral, Daily, # 90 cap(s), Refills(s) 3, Pharmacy: [facility] 1155, 155, cm, 04/19/21 16:40:00 EST, Height/Length Dosing, 59.6, kg, 04/19/21 16:40:00 EST, Weight Dosing Vitamin D3 5000 intl units oral capsule: 125 mcg = 1 cap(s), Oral, Daily, with food, # 30 cap(s), Refills(s) 11, Pharmacy: [facility], 155, cm, 04/19/21 16:40:00 EST, [...] EDT, Weight Dosing fluticasone 0.05 mg/inh Nasal [place]: 2 spray(s), Nasal, Daily, 16 gram, Refill(s) [...] Change in bowel habits / SNOMED CT 798400801 / Confirmed Attention deficit disorder (ADD) / SNOMED CT 89756108 / Confirmed Bilateral arm weakness / SNOMED CT 4619369452 / Confirmed Chronic insomnia / SNOMED CT 554811 (more content not included)... Normal [facility] Comment on above: Result Comment: Elec tronically Signed By: García Reyes DO\reva\Date and Time Signed: 01/02/22 08:16 EST C. Difficile PCRon C. Difficile PCR Specimen has been fo und to be acceptable for C. difficile testing. Normal [facility] Cdiff Specimen Acceptable Acceptable [facility] Comment on above: Performed By: #### 3 [id number], [id number], [id number], 95282992, 99515094, [id number], 42426735, 38084768 ####[facility] [address] [place] [address] Order Cancelled No, PCR to follow Normal Fi [facility] Comment on above: Performed By: #### 3 0590564, [id number], [id number], 47818742, 30322300, [id number], 28280446, 23017064 ####[facility] [address] [place] [address] C. diff by PCRon 12-31-2021 C. diff by PCR Specimen Negative fo r toxigenic C. difficile by DNA amplification. Duplicate specimens will not be accepted on this patient for the next 7 days. Published data on the sensitivity of molecular assays suggest there is no diagnostic value in repeat testing of samples in close time sequence. Normal Negative [facility] Comment on above: Result Comment: This test result should be correlated with clinical presentations and medical history by a healthcare provider to determine its clinical significance.\.br\.br\ Other Comment: Order added by Discern Expert. Clostridium difficile by PCR Negative Normal Negative [facility] Comment on above: Order Comment: Order added by Discern Expert. Result Comment: This test result should be correlated with clinical presentations and medical history by a healthcare provider to determine its clinical significance. Performed By: #### 3 6642419, [id number], 3652642803, 66490992, 88262898, 4163188934, 58173618, 69760240 ####[facility] [address] [place] [address] Enteric Panel by PCRon 12-31 C. coli+jejuni+upsalien sis DNA JEAN+non-probe Ql (Stl) Not detected Normal [facility] Comment on above: Result Comment: Test ing was performed utilizing reverse doorperson (RT), polymerase chain reaction (PCR), and array [...] nulcleic acid test. Performed By: #### 3 4088778, 992631360, 3097321544, 58197975, 56205134, 0551494216, 48022338, 62707414 ####[facility] [address] [place] [address] E. coli stx1+stx2 genes JEAN+non-probe Ql (Stl) Negative Normal [facility] Comment on above: Performed By: #### 3 5580541, 421339964, 6265365415, 67466500, 46666150, 8184730933, 06422623, 78181255 ####[facility] [address] [place] [address] Enteric Panel by PCR Negative Normal [facility] Enteric Panel Intrl QC Pass Normal [facility] Comment on above: Result Comment: Test ing was performed utilizing reverse doorperson (RT), polymerase chain reaction (PCR), and array [...] 1 and 2. Performed By: #### 3 3728938, 928112210, 4929900649, 09866971, 59072920, 9151297970, 00387702, 22750501 ####[facility] [address] [place] [address] Norovirus genogroup I+II RNA JEAN+non-probe Ql (Stl) Not detected Normal [facility] Comment on above: Performed By: #### 3 8263591, 083668892, 3880052367, 66562171, 40164285, 8805417548, 99629993, 42948589 ####[facility] [address] [place] [address] Rotavirus A RNA JEAN+non-probe Ql (Stl) Not detected Normal [facility] Comment on above: Performed By: #### 3 2162933, 235348613, 3654015134, 53734872, 61138341, 3631784647, 55188297, 61251587 ####[facility] [address] [place] [address] S. enterica+bongori DNA JEAN+non-probe Ql (Stl) Not detected Normal [facility] Comment on above: Result Comment: This test result should be correlated with clinical presentations and medical history by a healthcare provider to determine its clinical significance. Performed By: #### 3 0575191, 353162417, 6092063945, 28809491, 18914819, 3490581862, 10981742, 41020573 ####[facility] [address] [place] [address] Shigella species+EIEC invasion plasmid antigen H ipaH gene JEAN+non-probe Ql (Stl) Not detected Normal [facility] Comment on above: Performed By: #### 3 9880016, 242497710, 8881574628, 30702766, 37036099, 7772039015, 88592994, 04442788 ####[facility] [address] [place] [address] V. cholerae+parahaemoly ticus+vulnificus DNA JEAN+non-probe Ql (Stl) Not detected Normal [facility] Comment on above: Performed By: #### 3 4433186, 383053283, 4053897370, 60622943, 38040827, 4379877461, 33157038, 46764422 ####[facility] [address] [place] [address] Y. enterocolitica DNA JEAN+non-probe Ql (Stl) Not detected Normal [facility] Comment on above: Performed By: #### 3 2744133, 282529270, 6765136047, 70367566, 98670293, 4837143389, 74668804, 91643379 ####[facility] [address] [place] [address] Fecal WBC Lactoferrinon 12-20 Fecal WBC Lactoferrin Negative Normal Negative [facility] Comment on above: Result Comment: The semi-quantitative detection of elevated levels of fecal lactoferrin is a marker for fecal leukocytes and an indication of intestinal inflammation. Performed By: #### 3 3375283, 696052003, 3604838541, 99558113, 71197800, 7853268151, 24599794, 19848914 ####[facility] [address] [place] [address] MICRO OTHER TESTSOrdered By: Michael Albert on 12-30-2021 Fecal WBC Lactoferrin Negative (12/30/21 2:30 PM) Normal Negative [facility] Man Sero Ambulatory Visit Summaryon 1 02-28-2021 [...] tablet) fluticasone nasal (fluticasone 0.05 mg/inh Nasal [place]) immune globulin intravenous and subcutaneous (Gammagard Liquid 10% injectable solution) lorazepam (LORazepam 0.5 mg Tab) metoprolol (Metoprolol tartrate 50 mg Tab) omega-3 polyunsaturated fatty acids ([place]-3 Fish Oil 1000 mg oral capsule) ondansetron [...] Patient preference to discuss her immunodeficiency. Where: [address] [place], [place] [address]dict [facility]. [address] [place] [address] You Need to Complete the Following CBC w/ Auto Diff, Blood, Routine collect, 12/29/21, Order for future visit, Lab Collect, History of stomach ulcers Invalid Interpretation Code Change in bowel habits [facility] Auto Diffon 12-29-2021 Basophils/100 WBC (Bld) 1.8 % Normal 0.0-2.0 [facility] Comment on above: Order Comment: Order Added by Discern Expert. Performed By: #### 2 444204, 3715720, 8147276, 30975853 ####[facility] [address] [place] [address] Basophils/Leukocytes Auto (Bld) [Pure # fraction] 0.1 E9/L Normal 0.0-0.2 [facility] Comment on above: Order Comment: Order Added by Discern Expert. Performed By: #### 2 513340, 5806252, 8779643, 03252597 ####[facility] [address] [place] [address] Eosinophils/100 WBC (Bld) 7.0 % Normal 0.0-8.0 [facility] Comment on above: Order Comment: Order Added by Discern Expert. Performed By: #### 2 077633, 2929740, 9388697, 27153834 ####[facility] [address] [place] [address] Eosinophils/Leukocyt es Auto (Bld) [Pure # fraction] 0.3 E9/L Normal 0.0-0.5 [facility] Comment on above: Order Comment: Order Added by Discern Expert. Performed By: #### 2 807001, 6875241, 8343063, 11021980 ####[place] [address] [place] [address] Lymphocytes/100 WBC (Bld) 45.8 % Normal 14.0-50.0 [facility] Comment on above: Order Comment: Order Added by Discern Expert. Performed By: #### 2 891218, 9559942, 4248990, 57415339 ####[address] [address] Lymphocytes/Leukocyt es Auto (Bld) [Pure # fraction] 1.7 E9/L Normal 1.0-4.0 [facility] Comment on above: Order Comment: Order Added by Discern Expert. Performed By: #### 2 024559, 7869039, 3519993, 02068051 ####[address] [address] Monocytes/100 WBC (Bld) 7.7 % Normal 4.0-14.0 [facility] Comment on above: Order Comment: Order Added by Discern Expert. Performed By: #### 2 228654, 9102722, 9075551, 93556656 ####[address] [address] Monocytes/Leukocytes Auto (Bld) [Pure # fraction] 0.3 E9/L Normal 0.2-1.0 [facility] Comment on above: Order Comment: Order Added by Discern Expert. Performed By: #### 2 681588, 3880621, 9469305, 54914712 ####[place] [address] [place] [address] Neutrophils/100 WBC (Bld) 37.7 % Normal 36.0-75.0 [facility] Comment on above: Order Comment: Order Added by Discern Expert. Performed By: #### 2 059360, 7585307, 0036925, 71488892 ####[place] [address] [place] [address] Neutrophils/Leukocyt es Auto (Bld) [Pure # fraction] 1.4 E9/L Low 2.0-7.5 [facility] Comment on above: Order Comment: Order Added by Discern Expert. Performed By: #### 2 458683, 9947792, 8762085, 57697544 ####[address] [address] CBC w/ Auto Diffon Erythrocyte distribution width (RBC) [Ratio] 12.9 % Normal 10.9-14.2 [facility] Comment on above: Performed By: #### 2 162311, 5232450, 9581094, 80306483 ####[address] [address] Hematocrit (Bld) [Volume fraction] 39.3 % Normal 34.0-46.0 [facility] Comment on above: Performed By: #### 2 508225, 1418817, 6095690, 25897930 ####[address] [address] Hemoglobin (Bld) [Mass/Vol] 13.3 g/dL Normal 12.0-16.0 [facility] Comment on above: Performed By: #### 2 926018, 3800750, 2708435, 38140292 ####[address] [address] MCH (RBC) [Entitic mass] 32.2 pg Normal 27.0-34.0 [facility] Comment on above: Performed By: #### 2 499343, 8101220, 4345448, 04082030 ####[address] [address] MCHC (RBC) [Mass/Vol] 33.7 g/dL Normal 31.4-36.0 [facility] Comment on above: Performed By: #### 2 407474, 3475509, 8578680, 52888376 ####[facility] [address] [place] [address] MCV (RBC) [Entitic vol] 95.5 fL Normal 80.0-100.0 [facility] Comment on above: Performed By: #### 2 260233, 7230500, 1875402, 05204158 ####[address] [address] Platelet mean volume (Bld) [Entitic vol] 8.2 fL Normal 6.4-10.8 [facility] Comment on above: Performed By: #### 2 553343, 3579200, 8523998, 52483624 ####[address] [address] Platelets (Bld) [#/Vol] 128.0 E9/L Low 150.0-500. 0 [facility] Comment on above: Performed By: #### 2 587572, 5003391, 2552449, 94573039 ####[address] [address] RBC (Bld) [#/Vol] 4.1 E12/L Low 4.3-5.9 [facility] Comment on above: Performed By: #### 2 306748, 6179116, 3526452, 24390360 ####[address] [address] WBC corrected for nucl RBC Auto (Bld) [#/Vol] 3.8 E9/L Low 4.0-11.0 [facility] Comment on above: Performed By: #### 2 912523, 3812061, 6207390, 58295973 ####[address] [address] CHEMISTRYOrdered By: SYSTEM SYSTEM on 12-29-2021 Albumin [...] rate/Area] mL/min/1.73 m2 Normal >=59mL/min /1.73 m2 [facility] Chem S GFR/1.73 sq M.predicted among non-blacks MDRD (S/P/Bld) [Vol rate/Area] 56 mL/min/1.73 m2 Low >=59mL/min /1.73 m2 [facility] Chem S Globulin (S) [Mass/Vol] 3.8 g/dL [...] 13 mg/dL Normal 5 - 21 mg/dL [facility] Remisol Urea nitrogen/Creatinine [Mass ratio] 12 mg/mg Normal 10 - 20 [facility] Remisol CMPon 12-29-2021 Albumin [Mass/Vol] 3.9 g/dL Normal 3.3-5.0 [facility] Comment on above: Performed By: #### 2 761027, 1879654, 6424664, 42200172 ####[facility] [address] [place] [address] Albumin/Globulin (S) [Mass conc ratio] 1.0 Low 1.1-2.2 [facility] Comment on above: Performed By: #### 2 937783, 4709718, 2512831, 48618069 ####[facility] [address] [place] [address] ALP [Catalytic activity/Vol] 83 Int._Unit/L Normal 21-98 [facility] Comment on above: Performed By: #### 2 355498, 0677047, 6180864, 95385967 ####[facility] [address] [place] [address] ALT No additional P-5'-P [Catalytic activity/Vol] 65 Int._Unit/L High 6-46 [facility] Comment on above: Performed By: #### 2 603876, 4033454, 2241384, 57981478 ####[facility] [address] [place] [address] Anion gap [Moles/Vol] 10 mmol/L Normal 6-16 [facility] Comment on above: Performed By: #### 2 182276, 2560986, 3068831, 16508348 ####[facility] [address] [place] [address] AST [Catalytic activity/Vol] 95 Int._Unit/L High 5-43 [facility] Comment on above: Performed By: #### 2 633605, 6770508, 6366078, 27334173 ####[facility] [address] [place] [address] Bilirubin [Mass/Vol] 1.1 mg/dL Normal 0.0-1.1 [facility] Comment on above: Performed By: #### 2 930784, 1052161, 7529351, 99092828 ####[facility] [address] [place] [address] Calcium [Mass/Vol] 8.9 mg/dL Normal 8.9-11.1 [facility] Comment on above: Performed By: #### 2 176317, 7511943, 1808214, 93436934 ####[facility] [address] [place] [address] Chloride [Moles/Vol] 101 mmol/L Normal 101-111 [facility] Comment on above: Performed By: #### 2 115368, 5418282, 0507308, 24810419 ####[facility] [address] [place] [address] CO2 [Moles/Vol] 29 mmol/L Normal 21-31 [facility] Comment on above: Performed By: #### 2 875755, 7682906, 7905977, 98701293 ####[facility] [address] [place] [address] Creatinine [Mass/Vol] 1.1 mg/dL Normal 0.5-1.3 [facility] Comment on above: Performed By: #### 2 075118, 8768267, 8077635, 39190312 ####[facility] [address] [place] [address] Globulin (S) [Mass/Vol] 3.8 g/dL Normal 1.4-4.0 [facility] Comment on above: Performed By: #### 2 169237, 2380329, 2027260, 09810169 ####[facility] [address] [place] [address] Glucose [Mass/Vol] 91 mg/dL Normal 55-199 [facility] Comment on above: Result Comment: If t his glucose result represents a fasting glucose, interpretation should refer to the following reference range: 55-99 mg/dL Performed By: #### 2 823104, 1832966, 9282817, 17817266 ####[facility] [address] [place] [address] Potassium [Moles/Vol] 4.0 mmol/L Normal 3.5-5.3 [facility] Comment on above: Performed By: #### 2 810914, 6442488, 8973177, 67082225 ####[facility] [address] [place] [address] Protein [Mass/Vol] 7.7 g/dL Normal 6.0-7.8 [facility] Comment on above: Performed By: #### 2 202469, 7716221, 0356468, 51606673 ####[facility] [address] [place] [address] Sodium [Moles/Vol] 136 mmol/L Normal 135-145 [facility] Comment on above: Performed By: #### 2 763246, 7112973, 8288785, 84708369 ####[facility] [address] [place] [address] Urea nitrogen [Mass/Vol] 13 mg/dL Normal 5-21 [facility] Comment on above: Performed By: #### 2 904034, 2127031, 3650142, 91975064 ####[facility] [address] [place] [address] Urea nitrogen/Creatinine [Mass ratio] 12 No Units Normal 10-20 [facility] Comment on above: Performed By: #### 2 657097, 9096449, 5198387, 50610084 ####[facility] [address] [place] [address] Consent for Treatmenton 12-20 Consent for Treatment [id number] Normal [facility] Gastroenterology Office/Clin ic Noteon 12-29-2021 Gastroenterology Office/Clinic [...] 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 Patient also with history of total colectomy [...] had reported during previous evaluation that her fire boss wanted to speak to Dr. Mason personally [...] Routine Sigmoidoscop (more content not included)... Normal [facility] Comment on above: Result Comment: Elec tronically [...] added (diluted fruit juice). ? Eat bland, zvhr-fx-gclvqb foods in small amounts as you are able. These foods include bananas, applesauce, rice, lean meats, toast, and crackers. ? Avoid drinking fluids that contain a lot of sugar or caffeine, such as energy drinks, sports drinks, and soda. ? Avoid alcohol. ? Avoid spicy or fatty foods. General instructions ? Take eouj-fgv-mlrtzpl and prescription medicines only as told by your health care provider. ? Rest at home while you recover. ? Drink enough fluid to keep your urine pale yellow. ? Breathe slowly and deeply when you feel nauseous. ? Avoid smelling things that have strong odors. ? Wash your hands often using soap and water. If soap and water are not available, use hand conche operator. ? Make sure that all people in [...] recommendations for eating and drinking and take oeef-uag-fqthrvm and prescription medicines only as told by [...] 03/15/2005 Document Revised: 07/16/2018 Document Reviewed: 07/16/2018 [employer] Patient Education ? 2020 [employer] Normal [facility] eGFRon 12-29-2021 GFR/1.73 sq M.predicted among blacks MDRD (S/P/Bld) [Vol rate/Area] mL/min/{1.73_m2} Normal >=59 [facility] Comment on above: Order Comment: Order added by Discern Expert. Result Comment: eGFR is race adjusted. AA=. Performed By: #### 2 422199, 0128288, 8681226, 54969542 ####[facility] [address] [place] [address] GFR/1.73 sq M.predicted among non-blacks MDRD (S/P/Bld) [Vol rate/Area] 56 mL/min/1.73 m2 Low >=59 [facility] Comment on above: Order Comment: Order added by Discern Expert. Result Comment: Field Naturalist gina kidney disease could be indicated at eGFR's of less than 60 mL/min/1.73m2. Kidney failure is indicated at less than 15 mL/min/1.73m2. Performed By: #### 2 014091, 3772276, 9175299, 13538561 ####[facility] [address] [place] [address] [facility] Medicine Office/Clini c Noteon 11-01-2021 Family Medicine [...] day(s), # 20 tab(s), Refills(s) 0, Pharmacy: [facility], 155, cm, 11/01/21 16:20:00 EDT, Height/Length Dosing, 59.7, kg, 11/01/21 16:20:00 EDT, Weight Dosing methylPREDNISolone, = 1 packet(s), Oral, As Directed, as directed on package labeling, X 6 day(s), # 21 tab(s), Refills(s) 0, Pharmacy: [facility], 155, cm, 11/01/21 16:20:00 EDT, Height/Length Dosing, 59.7, kg, 11/01/21 16:20:00 EDT, Weight Dosing predniSONE, 0 = 1 -, Oral, As Directed, Take 5 tabs by mouth daily x3 days, 4 daily x3 days, 3 daily x3 days, 2 daily x3 days, then 1 tab daily x3 days., # 45 tab(s), Refills(s) 0, Pharmacy: [facility], 155, cm, 08/15/21 15:25:00 EDT, Height/Length Dosi... Follow-up With When Contact Information Lizy SORIA DO, FAM In 3 months [address] [facility] [address] [place] [address]- Additional Instructions: Lizy SORIA DO, FAM In 3 months [address] [facility] [address] [place] [address]- Additional Instructions: Problem List/Past Medical History [...] tab(s), Oral, Daily fluticasone 0.05 mg/inh Nasal [place], 2 spray(s), Nasal, Daily Focalin XR 2 (more content not included)... Normal [facility] Comment on above: Result Comment: Elec tronically Signed By: Lizy SORIA DO\.br\Date and Time Signed: 11/01/21 20:52 EDT MRI BRAIN WO/W IVCONon 10-11 MRI BRAIN WO/W IVCON * * *Final Report* * * DATE OF EXAM: Oct 11 2021 1:07PM [facility] 0295 - MRI BRAIN WO/W [...] lesion in the brain and cervical spine. 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 Operator Hydraulic: CHENG Transcribe Date/Time: Oct 11 2021 1:15P Dictated by : ENRIQUE VERDUZCO MD This examination was interpreted and the report reviewed and electronically signed by: ENRIQUE VERDUZCO MD on Oct 11 2021 1:34PM EST [id number] Normal [facility] MRI CERVICAL SPINE WO/W IVCO Non 10-11-2021 MRI CERVICAL SPINE WO/W IVCON * * *Final Report* * * DATE OF EXAM: Oct 11 2021 1:07PM [facility] 0298 - MRI CERVICAL SPINE [...] lesion in the brain and cervical spine. 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 Operator Hydraulic: CHENG Transcribe Date/Time: Oct 11 2021 1:15P Dictated by : ENRIQUE VERDUZCO MD This examination was interpreted and the report reviewed and electronically signed by: ENRIQUE VERDUZCO MD on Oct 11 2021 1:34PM EST [id number] Normal [facility] NURSING PROGon 10-11-2021 NURSING PROG HNO ID: [id number] Author: Zaida Cisneros RN Service: Radiology Author [...] October 11, 2021 TIME: 11:52 AM Normal [facility] No Panel Informationon 10-11 [facility] C-REACTIVE ULTRA SENon 09-20 CRP High sensitivity method [Mass/Vol] 2.2 mg/L <3.1 mg/L [facility] CERULOPLASMIN BLDon 09-21-19 Ceruloplasmin [Mass/Vol] 29 mg/dL 16 - 45 mg/dL [facility] ESR Westergren method (Bld) [Velocity]on 09-20-2021 ESR (Bld) [Velocity] 8 mm/h 0 - 20 mm/hr [facility] FERRITIN BLDon 09-20-2021 Ferritin [Mass/Vol] 116.0 ng/mL 14.7 - 205.1 ng/mL [facility] Iron and Iron binding capaci ty panelon 09-20-2021 Iron [Mass/Vol] 82 ug/dL 41 - 186 ug/dL [facility] Iron binding capacity [Mass/Vol] 303 ug/dL 232 - 386 ug/dL [facility] Iron/TIBC [Molar ratio] 27.1 % 15.0 - 57.0 % [facility] VITAMIN B12 BLOODon 09-21-19 Cobalamin (Vitamin B12) [Mass/Vol] 700 pg/mL 232-1,245 pg/mL [facility] CHEMISTRYOrdered By: SYSTEM SYSTEM on 08-17-2021 CK [Catalytic activity/Vol] 36 [iU]/d Normal 14 - 261 Int._Unit/ L [facility] Remisol Creatinine [Mass/Vol] 0.9 mg/dL Normal 0.5 - 1.3 mg/dL [facility] Remisol CRP [Mass/Vol] 0.6 mg/dL Normal <=1.9mg/dL [facility] Remis ol GFR/1.73 sq M.predicted among blacks MDRD (S/P/Bld) [Vol rate/Area] mL/min/1.73 m2 Normal >=59mL/min /1.73 m2 [facility] Chem S GFR/1.73 sq M.predicted among non-blacks MDRD (S/P/Bld) [Vol rate/Area] mL/min/1.73 m2 Normal >=59mL/min /1.73 m2 [facility] Chem S TSH Qn 2.19 m[IU]/L Normal 0.34 - 5.60 mcIU/mL [facility] Remisol Urea nitrogen [Mass/Vol] 20 mg/dL Normal 5 - 21 mg/dL [facility] Remisol Amphetamine Screen Ql (U)Ord ered By: Lilian Lewis on 08-04-2021 Amphetamines Ql (U) Negative Negative [facility] Barbiturates [Presence] in U rineOrdered By: Lilian Lewis on 08-04-2021 Barbiturates Ql (U) Negative Negative [facility] Basic Metabolic Panelon 07-20 Calcium [Mass/Vol] 9.6 mg/dL Normal 8.2-10.2 [facility] Comment on above: Performed By: #### C KODI, BMP #### [facility] [address] [place] [id number] [place] Chloride [Moles/Vol] 103 mmol/L Normal 95-114 [facility] Comment on above: Performed By: #### C BC, BMP #### [facility] [address] [place] [address] [place] CO2 [Moles/Vol] 19.7 mmol/L Low 22.0-30.0 [facility] Comment on above: Performed By: #### C BC, BMP #### [facility] [address] [place] [id number] [place] Creatinine [Mass/Vol] 1.45 mg/dL High 0.44-1.03 [facility] Comment on above: Performed By: #### C BC, BMP #### [address] Creatinine Clr Calc Pharmacy 40.86 [facility] Comment on above: Result Comment: PERF ORMED BY: [place] [address] PATHOLOGIST MANAGER OF APPLICATIONS DEVELOPMENT KRISTA JAMES M.D. Performed By: #### C BC, BMP #### [address] Estimated GFR ( Maldonado 50 [facility] Comment on above: Result Comment: GFR estimated reference range: According to KDOQI guidelines, <60 ml/min/1.73m2 is sufficient to diagnose a patient with chronic kidney disease. Performed By: #### C BC, BMP #### [address] Estimated GFR (Non- Am 41 [facility] Comment on above: Performed By: #### C BC, BMP #### [address] Glucose [Mass/Vol] 96 mg/dL Normal 70-100 [facility] Comment on above: Result Comment: [place] Glucose Reference Range is dependent on time and content of last meal. Glucose of more than 200 mg/dL in a nonstressed, ambulatory subject supports the diagnosis of Diabetes Mellitus. ADA recommended reference range Performed By: #### C BC, BMP #### [address] Potassium [Moles/Vol] 4.4 mmol/L Normal 3.5-5.1 [facility] Comment on above: Performed By: #### C BC, BMP #### [place] [address] [place] Sodium [Moles/Vol] 136 mmol/L Normal 136-146 [facility] Comment on above: Performed By: #### C BC, BMP #### [address] Urea nitrogen [Mass/Vol] 17 mg/dL Normal 9-23 [facility] Comment on above: Performed By: #### C BC, BMP #### [address] Basophils Auto (Bld) [#/Vol] Ordered By: Lilian Lewis on 08-04-2021 Basophils (Bld) [#/Vol] 0.0 10*3/uL 0.0-0.2 [facility] Basophils/100 WBC Auto (Bld) Ordered By: Lilian Lewis on 08-04-2021 Basophils/100 WBC (Bld) 0.4 % [facility] Benzodiazepines [Presence] i n UrineOrdered By: Lilian Lewis on 08-04-2021 Benzodiazepines Ql (U) Negative Negative [facility] Bilirubin Test strip Ql (U)O rdered By: Lilian Lewis on 08-04-2021 Bilirubin Ql (U) Negative Negative [facility] Blood hemoglobin measurement (mass/volume)Ordered By: Lilian Lewis on 08-04-2021 Hemoglobin (Bld) [Mass/Vol] 12.4 g/dL 11.8-15.4 [facility] Blood leukocytes automated c ount (number/volume)Ordered By: Lilian Lewis on 08-04-2021 WBC (Bld) [#/Vol] 5.7 10*3/uL 4.5-11.0 [facility] CT angio headon 08-04-2021 CT angio head [facility] Main [place] [address] [place] [address] CT Scan Report Signed Patient: Ben Barr MR#: [id number] : 1985 Acct:[id number] Age/Sex: 35 / F ADM Date: 08/04/21 Loc: ER Room: Type: [facility] ER Attending Dr: Copies to: Lilian Lewis APRN Ordering Provider: Lilian Lewis APRN Date of Service: 08/04/21 CT/CT angio head: hx of tumor/ tremors/ pain CTA OF THE TANANA OF MG WITH CONTRAST CLINICAL DATA: Extremity tremors with recent worsening and multiple falls. Intermittent blurred vision. History of pituitary adenoma. COMPARISON: 06/01/2017 and MRI 05/23/2008 Spiral axial images were obtained through the head following 67 mL of Isovue 370. Sagittal and coronal MIP as well as 3-D volume rendered images of the table mountain of Mg were reviewed. This CT exam [...] Erna Sandy M.D.08/04/2021 4:34 PM Dictation Location: [place] [address] Transcribed By: [facility] 08/04/21 1634 Dictated By: Erna Sandy MD 08/04/21 1618 Signed By: 08/04/21 1634 Normal [facility] CT cervical spine wo conon 0 08-04-2021 CT cervical spine [place] [facility] [address] CT Scan Report Signed Patient: Ben Barr MR#: [id number] : 1985 Acct:[id number] Age/Sex: 35 / F ADM Date: 08/04/21 Loc: ER Room: Type: [facility] ER Attending Dr: Copies to: Lilian [...] Erna Sandy M.D.08/04/2021 4:18 PM Dictation Location: [place] [address] Transcribed By: [facility] 08/04/21 161 Dictated By: Erna Sandy MD 08/04/21 161 Signed By: 08/04/21 161 Normal [facility] Cannabinoids [Presence] in U rine by Screen methodOrdered By: Lilian Lewis on 08-04-2021 Cannabinoids Screen Ql (U) Positive Negative [facility] Comment on above: These are unconfirme d results and should not be used for legal purposes. Drug Cut-Off Concentration: AMPH 1000 ng/mL LOPEZ 200 ng/mL CARLOS 200 ng/mL COCM 300 ng/mL OP 300 ng/mL PCP 25 ng/mL THC 20 ng/mL Color Auto (U)Ordered By: nAgel Lewis on 08-04-2021 Color (U) Yellow Yellow [facility] Complete Blood Count Auto Di ffon 08-04-2021 Basophils (Bld) [#/Vol] 0.0 10*3/uL Normal 0.0-0.2 [facility] Comment on above: Result Comment: PERF ORMED BY: [place] [address] PATHOLOGIST MANAGER OF APPLICATIONS DEVELOPMENT KRISTA JAMES M.D. Performed By: #### C BC, BMP #### [facility] [address] [place] [address] Basophils/100 WBC (Bld) 0.4 % Normal . [facility] Comment on above: Performed By: #### C BC, BMP #### [facility] [address] [place] [address] Eosinophils (Bld) [#/Vol] 0.0 10*3/uL Normal 0.0-0.45 [facility] Comment on above: Performed By: #### C BC, BMP #### [address] Eosinophils/100 WBC (Bld) 0.1 % Normal . [facility] Comment on above: Performed By: #### C BC, BMP #### [address] Erythrocyte distribution width (RBC) [Ratio] 12.8 % Normal 11.9-15.3 [facility] Comment on above: Performed By: #### C BC, BMP #### [address] Hematocrit (Bld) [Volume fraction] 36.6 % Normal 34.0-46.4 [facility] Comment on above: Performed By: #### C BC, BMP #### [address] Hemoglobin (Bld) [Mass/Vol] 12.4 g/dL Normal 11.8-15.4 [facility] Comment on above: Performed By: #### C BC, BMP #### [address] Lymphocytes (Bld) [#/Vol] 0.8 10*3/uL Low 1.00-4.8 [facility] Comment on above: Performed By: #### C BC, BMP #### [address] Lymphocytes/100 WBC (Bld) 13.5 % Normal . [facility] Comment on above: Performed By: #### C BC, BMP #### [place] [address] [place] MCH (RBC) [Entitic mass] 30.7 pg Normal 24.7-34.3 [facility] Comment on above: Performed By: #### C BC, BMP #### [address] MCV (RBC) [Entitic vol] 90.6 fL Normal 80-100 [facility] Comment on above: Performed By: #### C BC, BMP #### [address] [place] [address] [place] Mean Corpuscular HGB Conc 33.9 g/dL Normal 32.0-35.0 [facility] Comment on above: Performed By: #### C KODI, BMP #### [facility] [address] [place] [address] [place] Monocytes (Bld) [#/Vol] 0.3 10*3/uL Normal 0.0-0.8 [facility] Comment on above: Performed By: #### C BC, BMP #### [facility] [address] [place] [address] [place] Monocytes/100 WBC (Bld) 4.9 % Normal . [facility] Comment on above: Performed By: #### C KODI, BMP #### [facility] [address] [place] [address] [place] Neutrophils (Bld) [#/Vol] 4.6 10*3/uL Normal 1.8-7.7 [facility] Comment on above: Performed By: #### C KODI, BMP #### [facility] [address] [place] [address] [place] Neutrophils/100 WBC (Bld) 81.1 % Normal . [facility] Comment on above: Performed By: #### C KODI, BMP #### [place] [address] [place] Nucleated RBC/100 WBC (Bld) [Ratio] 0.0 % Normal 0-0.5 [facility] Comment on above: Performed By: #### C KODI, BMP #### [facility] [address] [place] [address] [place] Platelet mean volume (Bld) [Entitic vol] 7.8 fL Normal 6.3-10.7 [facility] Comment on above: Performed By: #### C BC, BMP #### [facility] [address] [place] [id number] [place] Platelets (Bld) [#/Vol] 242 10*3/uL Normal 150-450 [facility] Comment on above: Performed By: #### C KODI, BMP #### [facility] [address] [place] [address] RBC (Bld) [#/Vol] 4.04 10*6/uL Normal 3.60-5.00 [facility] Comment on above: Performed By: #### C BC, BMP #### [address] WBC (Bld) [#/Vol] 5.7 10*3/uL Normal 4.5-11.0 [facility] Comment on above: Performed By: #### C BC, BMP #### [address] Creatinine and Glomerular fi ltration rate.predicted panel (S/P/Bld)Ordered By: Lilian Lewis on 08-04-2021 Creatinine [Mass/Vol] 1.45 mg/dL 0.44-1.03 [facility] Drug Screen,Urineon 08-05-19 22 Amphetamine Screen,Urine Negative Normal Negative [facility] Comment on above: Performed By: #### U RDS #### [address] Barbiturate Screen,Urine Negative Normal Negative [facility] Comment on above: Performed By: #### U RDS #### [address] Benzodiazepines Screen,Urine Negative Normal Negative [facility] Comment on above: Performed By: #### U RDS #### [address] Cannabinoid Screen,Urine Positive High Negative [facility] Comment on above: Result Comment: Thes e are unconfirmed results and should not be used for legal purposes. Drug Cut-Off Concentration: AMPH 1000 ng/mL LOPEZ 200 ng/mL CARLOS 200 ng/mL COCM 300 ng/mL OP 300 ng/mL PCP 25 ng/mL THC 20 ng/mL PERFORMED BY: [place] [address] PATHOLOGIST MANAGER OF APPLICATIONS DEVELOPMENT KRISTA JAMES M.D. Performed By: #### U RDS #### [address] Cocaine Screen,Urine Negative Normal Negative [facility] Comment on above: Performed By: #### U RDS #### [facility] [address] Opiate Screen,Urine Negative Normal Negative [facility] Comment on above: Performed By: #### U RDS #### [facility] [address] Phencyclidine Screen,Urine Negative Normal Negative [facility] Comment on above: Performed By: #### U RDS #### [facility] [address] Eosinophils Auto (Bld) [#/Vo l]Ordered By: Lilian Lewis on 08-04-2021 Eosinophils (Bld) [#/Vol] 0.0 10*3/uL 0.0-0.45 [facility] Eosinophils/100 WBC Auto (Bl d)Ordered By: Lilian Lewis on 08-04-2021 Eosinophils/100 WBC (Bld) 0.1 % [facility] Erythrocyte distribution wid th Auto (RBC) [Ratio]Ordered By: Lilian Lewis on 08-04-2021 Erythrocyte distribution width (RBC) [Ratio] 12.8 % 11.9-15.3 [facility] Estimated glomerular filtrat ion rate (GFR) non- AmericanOrdered By: Lilian Lewis on 08-04-2021 GFR/1.73 sq M.predicted among non-blacks MDRD (S/P/Bld) [Vol rate/Area] 41 mL/Min [facility] HCG ( test) IA.rapi d Ql (U)Ordered By: Lilian Lewis on 08-04-2021 HCG ( test) Ql (U) Negative [facility] HCG,Urineon 08-04-2021 Beta HCG ( test) Ql (U) Negative Normal [facility] Comment on above: Order Comment: Name Collection Type:: Clean-Voided Midstream Result Comment: PERF ORMED BY: [place] [address] PATHOLOGIST MANAGER OF APPLICATIONS DEVELOPMENT JIANLAN SUN M.D. Performed By: #### U A, [facility] #### [facility] [address] Hematocrit Auto (Bld) [Volum e fraction]Ordered By: Lilian Lewis on 08-04-2021 Hematocrit (Bld) [Volume fraction] 36.6 % 34.0-46.4 [facility] Ketones Auto test strip (U) [Mass/Vol]Ordered By: Lilian Lewis on 08-04-2021 Ketones (U) [Mass/Vol] Negative Negative [facility] Laboratory - Drug toxicology Ordered By: Lilian Lewis on 08-04-2021 Opiates Ql (U) Negative Negative [facility] Laboratory - Hematology and Cell countsOrdered By: Lilian Lewis on 08-04-2021 Nucleated RBC/100 WBC (Bld) [Ratio] 0.0 % 0-0.5 [facility] Lymphocytes Auto (Bld) [#/Vo l]Ordered By: Lilian Lewis on 08-04-2021 Lymphocytes (Bld) [#/Vol] 0.8 10*3/uL 1.00-4.8 [facility] Lymphocytes/100 WBC Auto (Bl d)Ordered By: Lilian Lewis on 08-04-2021 Lymphocytes/100 WBC (Bld) 13.5 % [facility] MCH Auto (RBC) [Entitic mass ]Ordered By: Lilian Lewis on 08-04-2021 MCH (RBC) [Entitic mass] 30.7 pg 24.7-34.3 [facility] MCHC Auto (RBC) [Mass/Vol]Or dered By: Lilian Lewis on 08-04-2021 MCHC (RBC) [Mass/Vol] 33.9 g/dL 32.0-35.0 [facility] MCV Auto (RBC) [Entitic vol] Ordered By: Lilian Lewis on 08-04-2021 MCV (RBC) [Entitic vol] 90.6 fL 80-100 [facility] Monocytes Auto (Bld) [#/Vol] Ordered By: Lilian Lewis on 08-04-2021 Monocytes (Bld) [#/Vol] 0.3 10*3/uL 0.0-0.8 [facility] Monocytes/100 WBC Auto (Bld) Ordered By: Lilian Lewis on 08-04-2021 Monocytes/100 WBC (Bld) 4.9 % [facility] Neutrophils Auto (Bld) [#/Vo l]Ordered By: Lilian Lewis on 08-04-2021 Neutrophils (Bld) [#/Vol] 4.6 10*3/uL 1.8-7.7 [facility] Neutrophils/100 WBC Auto (Bl d)Ordered By: Lilian Lewis on 08-04-2021 Neutrophils/100 WBC (Bld) 81.1 % [facility] Nitrite Test strip Ql (U)Ord ered By: Lilian Lewis on 08-04-2021 Nitrite Ql (U) Negative Negative [facility] No Panel InformationOrdered By: Lilian Lewis on 08-04-2021 Estimated GFR () 50 mL/Min [facility] Comment on above: GFR estimated refere nce range: According to KDOQI guidelines, <60 ml/min/1.73m2 is sufficient to diagnose a patient with chronic kidney disease. Pharmacy Creatinine Clearance (Chem 40.86 [facility] Phencyclidine Screen Ql (U)O rdered By: Lilian Lewis on 08-04-2021 Phencyclidine Ql (U) Negative Negative [facility] Platelet mean volume Auto (B ld) [Entitic vol]Ordered By: Lilian Lewis on 08-04-2021 Platelet mean volume (Bld) [Entitic vol] 7.8 fL 6.3-10.7 [facility] Platelets Auto (Bld) [#/Vol] Ordered By: Lilian Lewis on 08-04-2021 Platelets (Bld) [#/Vol] 242 10*3/uL 150-450 [facility] Prolactinon 08-04-2021 Prolactin 39.93 ng/mL High 3.34-26.72 [facility] Comment on above: Result Comment: PERF ORMED BY: [facility] [address] [place] [address] PATHOLOGIST MANAGER OF APPLICATIONS DEVELOPMENT KRISTA JAMES M.D. Performed By: #### P RL #### [facility] [address] Protein Auto test strip (U) [Mass/Vol]Ordered By: Lilian Lewis on 08-04-2021 Protein (U) [Mass/Vol] Negative Negative [facility] RBC Auto (Bld) [#/Vol]Ordere d By: Lilian Lewis on 08-04-2021 RBC (Bld) [#/Vol] 4.04 10*6/uL 3.60-5.00 [facility] Serum or plasma calcium abimael urement (mass/volume)Ordered By: Lilian Lewis on 08-04-2021 Calcium [Mass/Vol] 9.6 mg/dL 8.2-10.2 [facility] Serum or plasma chloride rodolfo surement (moles/volume)Ordered By: Lilian Lewis on 08-04-2021 Chloride [Moles/Vol] 103 mmol/L 95-114 [facility] Serum or plasma glucose abimael urement (mass/volume)Ordered By: Lilian Lewis on 08-04-2021 Glucose [Mass/Vol] 96 mg/dL 70-100 [facility] Comment on above: ADA recommended refe rence range Random Glucose Reference Range is dependent on time and content of last meal. Glucose of more than 200 mg/dL in a nonstressed, ambulatory subject supports the diagnosis of Diabetes Mellitus. Serum or plasma potassium me asurement (moles/volume)Ordered By: Lilian Lewis on 08-04-2021 Potassium [Moles/Vol] 4.4 mmol/L 3.5-5.1 [facility] Serum or plasma sodium measu rement (moles/volume)Ordered By: Lilian Lewis on 08-04-2021 Sodium [Moles/Vol] 136 mmol/L 136-146 [facility] Serum or plasma total carbon dioxide measurement (moles/volume)Ordered By: Lilian Lewis on 08-04-2021 CO2 [Moles/Vol] 19.7 mmol/L 22.0-30.0 [facility] Serum or plasma urea nitroge n measurement (mass/volume)Ordered By: Lilian Lewis on 08-04-2021 Urea nitrogen [Mass/Vol] 17 mg/dL 11-11 [facility] Specific gravity Auto test s trip (U) [Rel density]Ordered By: Lilian Lewis on 08-04-2021 Specific gravity (U) [Rel density] 1.006 1.001-1.03 0 [facility] Urinalysison 08-04-2021 Appearance (U) Clear Normal Clear [facility] Comment on above: Order Comment: Name Collection Type:: Clean-Voided Midstream Performed By: #### U A, UHCG #### [facility] [address] [place] [address] [place] Bilirubin,Urine Negative Normal Negative [facility] Comment on above: Order Comment: Name Collection Type:: Clean-Voided Midstream Performed By: #### U A, UHCG #### [facility] [address] [place] [address] [place] Color (U) Yellow Normal Yellow [facility] Comment on above: Order Comment: Name Collection Type:: Clean-Voided Midstream Performed By: #### U A, UHCG #### [facility] [address] [place] [address] [place] Glucose Ql (U) Normal Normal Normal [facility] Comment on above: Order Comment: Name Collection Type:: Clean-Voided Midstream Performed By: #### U A, UHCG #### [facility] [address] [place] [id number] [place] Ketones Ql (U) Negative Normal Negative [facility] Comment on above: Order Comment: Name Collection Type:: Clean-Voided Midstream Performed By: #### U A, UHCG #### [facility] [address] [place] [id number] [place] Leukocyte esterase Test strip Ql (U) Negative Normal Negative [facility] Comment on above: Order Comment: Name Collection Type:: Clean-Voided Midstream Performed By: #### U A, UHCG #### [facility] [address] [place] [id number] [place] Nitrite,Urine Negative Normal Negative [facility] Comment on above: Order Comment: Name Collection Type:: Clean-Voided Midstream Performed By: #### U A, UHCG #### [place] [address] [place] Occult Blood,Urine Negative Normal Negative [facility] Comment on above: Order Comment: Name Collection Type:: Clean-Voided Midstream Performed By: #### U A, UHCG #### [address] pH (U) 6.5 [pH] Normal 5.0-9.0 [facility] Comment on above: Order Comment: Name Collection Type:: Clean-Voided Midstream Performed By: #### U A, UHCG #### [address] Protein,Urine Negative Normal Negative [facility] Comment on above: Order Comment: Name Collection Type:: Clean-Voided Midstream Performed By: #### U A, UHCG #### [address] Specificy [place],Urine 1.006 Normal 1.001-1.03 0 [facility] Comment on above: Order Comment: Name Collection Type:: Clean-Voided Midstream Performed By: #### U A, UHCG #### [address] Urobilinogen,Urine Normal Normal Normal [facility] Comment on above: Order Comment: Name Collection Type:: Clean-Voided Midstream Performed By: #### U A, UHCG #### [address] Urine clarity by refractomet ry automatedOrdered By: Lilian Lewis on 08-04-2021 Clarity Refractometry automated (U) Clear Clear [facility] Urine cocaine detectionOrder ed By: Lilian Lewis on 08-04-2021 Cocaine Ql (U) Negative Negative [facility] Urine glucose measurement by automated test strip (mass/volume)Ordered By: Lilian Lewis on 08-04-2021 Glucose Auto test strip (U) [Mass/Vol] Normal mg/dL Normal [facility] Urine hemoglobin detection b y automated test stripOrdered By: Lilian Lewis on 08-04-2021 Hemoglobin Auto test strip Ql (U) Negative Negative [facility] Urine leukocyte esterase det ection by automated test stripOrdered By: Lilian Lewis on 08-04-2021 Leukocyte esterase Auto test strip Ql (U) Negative Negative [facility] Urobilinogen Auto test strip (U) [Mass/Vol]Ordered By: Lilian Lewis on 08-04-2021 Urobilinogen (U) [Mass/Vol] Normal mg/dL Normal [facility] pH Auto test strip (U)Ordere d By: Lilian Lewis on 08-04-2021 pH (U) 6.5 [pH] 5.0-9.0 [facility] CBC AUTO DIFFon 08-03-2021 BASO # 0.0 103/ul Normal 0.0-0.1 [facility] Comment on above: Performed By: #### C BC #### [facility] [address] [place] [address] Dr. Marlyn Olivo Basophils/100 WBC (Bld) 0.3 % Normal 0.2-2.0 [facility] Comment on above: Performed By: #### C BC #### [facility] [address] [place] [address] Dr. Marlyn Olivo EO # 0.0 103/ul Normal 0.0-0.7 [facility] Comment on above: Performed By: #### C BC #### [facility] [address] [place] [address] Dr. Marlyn Olivo Eosinophils/100 WBC (Bld) 0.4 % Critically low 0.9-7.0 [facility] Comment on above: Performed By: #### C BC #### [facility] [address] [place] [address] Dr. Marlyn Olivo Erythrocyte distribution width (RBC) [Ratio] 12.3 % Normal 11.0-15.0 [facility] Comment on above: Performed By: #### C BC #### [facility] [address] [place] [address] Dr. Marlyn Olivo Hematocrit (Bld) [Volume fraction] 40.1 % Normal 36.0-48.0 [facility] Comment on above: Performed By: #### C BC #### [facility] [address] [place] [address] Dr. Marlyn Olivo Hemoglobin (Bld) [Mass/Vol] 13.3 g/dL Normal 12.0-16.0 [facility] Comment on above: Performed By: #### C BC #### [facility] [address] [place] [address] Dr. Marlyn Olivo IG # 0.12 10e3/ul Critically high 0.00-0.03 [facility] Comment on above: Performed By: #### C BC #### [facility] [address] [place] [address] Dr. Marlyn Olivo IG % 1.3 % Critically high 0.0-0.5 [facility] Comment on above: Performed By: #### C BC #### [facility] [address] [place] [address] Dr. Marlyn Olivo LYMPH # 2.0 103/ul Normal 1.2-3.8 [facility] Comment on above: Performed By: #### C BC #### [facility] [address] [place] [address] Dr. Marlyn Olivo Lymphocytes/100 WBC (Bld) 20.5 % Normal 20.5-60.0 [facility] Comment on above: Performed By: #### C BC #### [facility] [address] [place] [address] Dr. Marlyn Olivo MANUAL DIFF REQ NO Normal [facility] Comment on above: Performed By: #### C BC #### [facility] [address] [place] [address] Dr. Marlyn Olivo MCH (RBC) [Entitic mass] 30.9 pg Normal 26.7-34.0 [facility] Comment on above: Performed By: #### C BC #### [facility] [address] [place] [address] Dr. Marlyn Olivo MCHC (RBC) [Mass/Vol] 33.2 g/dL Normal 29.9-35.2 [facility] Comment on above: Performed By: #### C BC #### [facility] [address] [place] [address] Dr. Marlyn Olivo MCV (RBC) [Entitic vol] 93.0 fL Normal 81.0-99.0 [facility] Comment on above: Performed By: #### C BC #### [facility] [address] [place] [address] Dr. Marlyn Olivo MONO # 0.6 103/ul Normal 0.3-0.8 [facility] Comment on above: Performed By: #### C BC #### [facility] [address] [place] [address] Dr. Marlyn Olivo Monocytes/100 WBC (Bld) 6.5 % Normal 1.7-12.0 [facility] Comment on above: Performed By: #### C BC #### [facility] [address] [place] [address] Dr. Marlyn Olivo NEUT # 6.8 103/ul Critically high 1.4-6.5 [facility] Comment on above: Performed By: #### C BC #### [facility] [address] [place] [address] Dr. Marlyn Olivo Neutrophils/100 WBC (Bld) 71.0 % Normal 43.0-75.0 [facility] Comment on above: Performed By: #### C BC #### [facility] [address] [place] [address] Dr. Marlyn Olivo Platelet mean volume (Bld) [Entitic vol] 9.4 fL Critically low 9.5-13.5 [facility] Comment on above: Performed By: #### C BC #### [facility] [address] [place] [address] Dr. Marlyn Olivo PLT 275 103/ul Normal 150-450 [facility] Comment on above: Performed By: #### C BC #### [facility] [address] [place] [address] Dr. Marlyn Olivo RBC 4.31 106/ul Normal 4.20-5.40 [facility] Comment on above: Performed By: #### C BC #### [facility] [address] [address] [address] Marlyn Olivo WBC 9.6 103/ul Normal 4.0-11.0 [facility] Comment on above: Performed By: #### C BC #### [facility] [address] [address] [address] Marlyn Olivo CRPon 08-03-2021 CRP [Mass/Vol] mg/L Normal <=1.0 [facility] Comment on above: Performed By: #### C MP, CRP, TSH #### [facility] [address] HEAD WO CONon [...] EUGENE GAGNON Date: 2021-08-03 19:40 Normal [facility] SARS-CoV-2 (COVID-19) RNA JEAN+probe Ql (Unsp spec) Not detected Normal NOT DETECTED [facility] Comment on above: Result Comment: When [...] for this test is supported by the [employer] and Human Service's declaration that [...] used). Performed By: #### C VDTB #### [facility] [address] [place] [address] Dr. Marlyn Olivo ER URINE PROFILEon 2 Clarity (U) CLEAR Normal CLEAR [facility] Comment on above: Performed By: #### E RUR #### [facility] [address] [place] [address] Dr. Marlyn Olivo Color (U) LT. YELLOW Normal YELLOW [facility] Comment on above: Performed By: #### E RUR #### [facility] [address] [place] [address] Dr. Marlyn ROUSE A micrscopic examina tion will be performed if indicated. Normal [facility] Comment on above: Performed By: #### E RUR #### [facility] [address] [place] [address] Dr. Marlyn Olivo Glucose Ql (U) Negative Normal NEGATIVE [facility] Comment on above: Performed By: #### E RUR #### [facility] [address] [place] [address] Dr. Marlyn Olivo Hemoglobin Ql (U) Negative Normal NEGATIVE [facility] Comment on above: Performed By: #### E RUR #### [facility] [address] [place] [address] Dr. Marlyn Olivo Ketones Ql (U) Negative Normal NEGATIVE [facility] Comment on above: Performed By: #### E RUR #### [facility] [address] [address] [address] Marlyn Olivo LEUKOCYTES Negative Normal NEGATIVE [facility] Comment on above: Performed By: #### E RUR #### [facility] [address] [address] [address] Marlyn Olivo Nitrite Ql (U) Negative Normal NEGATIVE [facility] Comment on above: Performed By: #### E RUR #### [facility] [address] [address] [address] Marlyn Olivo pH (U) 6.5 [pH] Normal 5-9 [facility] Comment on above: Performed By: #### E RUR #### [facility] [address] [place] [address] Dr. Marlyn Olivo SPEC GRAVITY 1.015 Normal 1.005-<=1. 025 [facility] Comment on above: Performed By: #### E RUR #### [facility] [address] [place] [address] Dr. Marlyn Olivo UA PROTEIN Negative Normal NEGATIVE/ TRACE [facility] Comment on above: Performed By: #### E RUR #### [facility] [address] [place] [address] Dr. Marlyn Olivo UR MICRO IND NOT INDICATED Normal [facility] Comment on above: Performed By: #### E RUR #### [facility] [address] [place] [address] Dr. Marlyn Olivo Urobilinogen Qn (U) 0.2 {Anatoliy'U}/dL Normal 0.2 - 1. 0 [facility] Comment on above: Performed By: #### E RUR #### [facility] [address] [place] [address] Dr. Marlyn Olivo LACTATE/LACTIC ACIDon 2021 Lactate [Moles/Vol] 1.8 mmol/L Normal 0.4-1.9 [facility] Comment on above: Performed By: #### L ACT ####[facility] [address] [address]Dr. Marlyn Olivo PREG HCG QUALon 08-03-2021 , QUAL Negative Normal NEGATIVE [facility] Comment on above: Performed By: #### P REG #### [facility] [address] [place] [address] Dr. Marlyn Olivo PROF 14(COMP METB)on 022 Albumin [Mass/Vol] 4.0 g/dL Normal 3.4-5.0 [facility] Comment on above: Performed By: #### C MP, CRP, TSH #### [facility] [address] [place] [address] Dr. Marlyn Olivo Albumin/Globulin [Mass ratio] 1.1 {ratio} Normal [facility] Comment on above: Performed By: #### C MP, CRP, TSH #### [facility] [address] [place] [address] Dr. Marlyn Olivo ALP [Catalytic activity/Vol] 82 U/L Normal 46-116 [facility] Comment on above: Performed By: #### C MP, CRP, TSH #### [facility] [address] [place] [address] Dr. Marlyn Olivo ALT [Catalytic activity/Vol] 32 U/L Normal 14-59 [facility] Comment on above: Performed By: #### C MP, CRP, TSH #### [facility] [address] [place] [address] Dr. Marlyn Olivo Anion gap [Moles/Vol] 16.5 mmol/L Normal [facility] Comment on above: Performed By: #### C MP, CRP, TSH #### [facility] [address] [place] [address] Dr. Marlyn Olivo AST [Catalytic activity/Vol] 23 U/L Normal 15-37 [facility] Comment on above: Performed By: #### C MP, CRP, TSH #### [facility] [address] [place] [address] Dr. Marlyn Olivo Bilirubin [Mass/Vol] 0.3 mg/dL Normal 0.2-1.0 [facility] Comment on above: Performed By: #### C MP, CRP, TSH #### [facility] [address] [address] [address] Marlyn Olivo Calcium [Mass/Vol] 9.9 mg/dL Normal 8.5-10.1 [facility] Comment on above: Performed By: #### C MP, CRP, TSH #### [facility] [address] [address] [address] Marlyn Olivo Chloride [Moles/Vol] 103 mmol/L Normal 98-107 [facility] Comment on above: Performed By: #### C MP, CRP, TSH #### [facility] [address] [place] [address] Dr. Marlyn Olivo CO2 [Moles/Vol] 25.9 mmol/L Normal 21.0-32.0 [facility] Comment on above: Performed By: #### C MP, CRP, TSH #### [facility] [address] [place] [address] Dr. Marlyn Olivo Creatinine [Mass/Vol] 1.58 mg/dL Critically high 0.55-1.02 [facility] Comment on above: Performed By: #### C MP, CRP, TSH #### [facility] [address] [place] [address] Dr. Marlyn Olivo EGFR-AF SPANISH 45 mL/min/1.73m2 Critically low >=60 [facility] Comment on above: Performed By: #### C MP, CRP, TSH #### [facility] [address] [place] [address] Dr. Marlyn Olivo EGFR-NON AF SPANISH 37 mL/min/1.73m2 Critically low >=60 [facility] Comment on above: Performed By: #### C MP, CRP, TSH #### [facility] [address] [place] [address] Dr. Marlyn Olivo Globulin (S) [Mass/Vol] 3.8 g/dL Normal [facility] Comment on above: Performed By: #### C MP, CRP, TSH #### [facility] [address] [place] [address] Dr. Marlyn Olivo Glucose [Mass/Vol] 102 mg/dL Normal 74-106 [facility] Comment on above: Performed By: #### C MP, CRP, TSH #### [facility] [address] [place] [address] Dr. Marlyn Olivo Potassium [Moles/Vol] 4.4 mmol/L Normal 3.5-5.1 [facility] Comment on above: Performed By: #### C MP, CRP, TSH #### [facility] [address] [place] [address] Dr. Marlyn Olivo Protein [Mass/Vol] 7.8 g/dL Normal 6.4-8.2 [facility] Comment on above: Performed By: #### C MP, CRP, TSH #### [facility] [address] [place] [address] Dr. Marlyn Olivo Sodium [Moles/Vol] 141 mmol/L Normal 136-145 [facility] Comment on above: Performed By: #### C MP, CRP, TSH #### [facility] [address] [place] [address] Dr. Marlyn Olivo Urea nitrogen [Mass/Vol] 23.0 mg/dL Critically high 7.0-18.0 [facility] Comment on above: Performed By: #### C MP, CRP, TSH #### [facility] [address] [place] [address] Dr. Marlyn Olivo Urea nitrogen/Creatinine [Mass ratio] 14.6 mg/mg Normal [facility] Comment on above: Performed By: #### C MP, CRP, TSH #### [facility] [address] [place] [address] Dr. Marlyn Olivo PROTIMEon 08-03-2021 INR Coag (PPP) [Relative time] 0.93 {INR} Normal [facility] Comment on above: Performed By: #### P T, PTT #### [facility] [address] [place] [address] Dr. Marlyn Olivo INR GUIDELINES SEE BELOW Normal [facility] Comment on above: Result Comment: ROMULO RED INR: 2.0 - 3.0 CONDITIONS NOT LISTED BELOW 2.5 - 3.5 FOR PROSTHETIC HEART VALVE REPLACEMENT 2.5 - 3.5 RECURRENT THROMBOSIS Performed By: #### P T, PTT #### [facility] [address] [address] [address] Marlyn Olivo PT Coag (PPP) [Time] 10.1 s Normal 9.0-11.6 [facility] Comment on above: Performed By: #### P T, PTT #### [facility] [address] [address] [address] Marlyn Olivo PTTon 08-03-2021 aPTT Coag (Bld) [Time] 21.9 s Critically low 22.3-36.2 [facility] Comment on above: Performed By: #### P T, PTT ####[facility] [address] [address]Dr. Marlyn Olivo SED [facility] 2021 SED RATE 8 mm/hr Normal <=20 [facility] Comment on above: Performed By: #### S EDR ####[facility] [address] [address]Dr. Marlyn Olivo TSHon 08-03-2021 TSH 2.003 uIU/mL Normal 0.358-3.74 0 [facility] Comment on above: Performed By: #### C MP, CRP, TSH #### [facility] [address] [place] [address] Dr. Marlyn Olivo XR CHEST 2 Von [...] TOM BUSTOS Date: 2021-08-03 19:37 Normal [facility] COVID Quick Testingon 2020 Result Negative [employer] Other No Panel Information [facility] Vital Signs Date Time Vital Sign Value Performing Clinician Faci lity 12-06-2022 12:45-0400 Body temperature 98.4 [degF] Becka Grubic DO Work Phone: [facility] 12-06-2022 12:45-0400 Diastolic blood pressure 77 mm[Hg] Becka Wyattubic DO Work Phone: [facility] 12-06-2022 12:45-0400 Heart rate 67 /min Becka Wyattubic DO Work Phone: [facility] 12-06-2022 12:45-0400 Respiratory rate 20 /min Becka Wyattubic DO Work Phone: [facility] 12-06-2022 12:45-0400 SaO2% (BldA) [Mass fraction] 99 % Becka Wyattubic DO Work Phone: [facility] 12-06-2022 12:45-0400 Systolic blood pressure 107 mm[Hg] Becka Wyattubic DO Work Phone: [facility] 12-06-2022 08:46-0400 Body height 154.9 cm Becka Wyattubic DO Work Phone: [facility] 12-06-2022 08:46-0400 Body weight 70.31 kg Becka Wyattubic DO Work Phone: [facility] 11-22-2022 14:49-0400 Body height 152.4 cm [facility] 2 [facility] 11-22-2022 14:49-0400 Body weight 71.22 kg [facility] 2 [facility] 10-18-2022 12:00-0400 Diastolic blood pressure 72 mm[Hg] Bernarda Hernandez PT Work Phone: [facility] 10-18-2022 12:00-0400 Heart rate 64 /min Bernarda Hernandez PT Work Phone: [facility] 10-18-2022 12:00-0400 SaO2% (BldA) [Mass fraction] 97 % Bernarda Hernandez PT Work Phone: [facility] 10-18-2022 12:00-0400 Systolic blood pressure 108 mm[Hg] Bernarda Hernandez PT Work Phone: [facility] 10-16-2022 09:43-0400 Body height 154.1 cm Arsh Kiser MD, PhD Work Phone: [facility] 10-16-2022 09:43-0400 Body weight 70.35 kg Arsh Kiser MD, PhD Work Phone: [facility] 10-16-2022 09:43-0400 Diastolic blood pressure 85 mm[Hg] Arsh Kiser MD, PhD Work Phone: [facility] 10-16-2022 09:43-0400 Heart rate 74 /min Arsh Kiser MD, PhD Work Phone: [facility] 10-16-2022 09:43-0400 Systolic blood pressure 125 mm[Hg] Arsh Kiser MD, PhD Work Phone: [facility] 08-10-2022 08:35-0400 Body height 154.9 cm Bebeto Perry MD Work Phone: [facility] 08-10-2022 08:35-0400 Body weight 63.5 kg Bebeto Perry MD Work Phone: [facility] 08-10-2022 08:35-0400 Diastolic blood pressure 58 mm[Hg] Bebeto Perry MD Work Phone: [facility] 08-10-2022 08:35-0400 Heart rate 81 /min Bebeto Perry MD Work Phone: [facility] 08-10-2022 08:35-0400 Systolic blood pressure 95 mm[Hg] Bebeto Perry MD Work Phone: [facility] 07-25-2022 15:54-0400 Blood Pressure Location Lizy SORIA [facility] 07-25-2022 15:54-0400 Body temperature 98.42 [degF] Lizy SORIA [facility] 07-25-2022 15:54-0400 Diastolic blood pressure 62 mm[Hg] Lizy SORIA [facility] 07-25-2022 15:54-0400 Heart rate 72 /min Lizy SORIA [facility] 07-25-2022 15:54-0400 SaO2% (BldA) [Mass fraction] 99 % Lizy SORIA [facility] 07-25-2022 15:54-0400 Systolic blood pressure 100 mm[Hg] Lizy SORIA [facility] 07-03-2022 08:13-0400 Body height 154.9 cm Kim Rogers MD Work Phone: [facility] 07-03-2022 08:13-0400 Body weight 63.96 kg Kim Rogers MD Work Phone: [facility] 07-03-2022 08:13-0400 Diastolic blood pressure 72 mm[Hg] Kim Rogers MD Work Phone: [facility] 07-03-2022 08:13-0400 Heart rate 71 /min Kim Rogers MD Work Phone: [facility] 07-03-2022 08:13-0400 SaO2% (BldA) [Mass fraction] 99 % Kim Rogers MD Work Phone: [facility] 07-03-2022 08:13-0400 Systolic blood pressure 106 mm[Hg] Kim Rogers MD Work Phone: [facility] 06-27-2022 15:59-0400 Body height 154.9 cm Saroj Foss DIRECTOR OF CORPORATE SALES.[employer] SE[employer]ING MACHINE OPERATOR Work Phone: [facility] 06-27-2022 15:59-0400 Body temperature 98.1 [degF] Saroj Foss APRN.[employer]LOCK SE[employer]ING MACHINE OPERATOR Work Phone: [facility] 06-27-2022 15:59-0400 Body weight 63.96 kg Saroj Foss DIRECTOR OF CORPORATE SALES.[employer]LOCK SEWING MACHINE OPERATOR Work Phone: [facility] 06-27-2022 15:59-0400 Diastolic blood pressure 76 mm[Hg] Saroj Foss DIRECTOR OF CORPORATE SALES.OVERLOCK SEWING MACHINE OPERATOR Work Phone: [facility] 06-27-2022 15:59-0400 Heart rate 68 /min Saroj Foss DIRECTOR OF CORPORATE SALES.[employer]LOCK SEWING MACHINE OPERATOR Work Phone: [facility] 06-27-2022 15:59-0400 Respiratory rate 16 /min Saroj Foss DIRECTOR OF CORPORATE SALES.OVERLOCK SEWING MACHINE OPERATOR Work Phone: [facility] 06-27-2022 15:59-0400 SaO2% (BldA) [Mass fraction] 99 % Saroj Foss DIRECTOR OF CORPORATE SALES.OVERLOCK SEWING MACHINE OPERATOR Work Phone: [facility] 06-27-2022 15:59-0400 Systolic blood pressure 124 mm[Hg] Saroj Foss DIRECTOR OF CORPORATE SALES.OVERLOCK SEWING MACHINE OPERATOR Work Phone: [facility] 04-17-2022 15:49-0500 Blood Pressure Location Lizy SORIA [facility] 04-17-2022 15:49-0500 Body temperature 97.52 [degF] Lizy SORIA [facility] 04-17-2022 15:49-0500 Diastolic blood pressure 64 mm[Hg] Lizy SORIA [facility] 04-17-2022 15:49-0500 Heart rate 90 /min Lizy SORIA [facility] 04-17-2022 15:49-0500 SaO2% (BldA) [Mass fraction] 98 % Lizy SORIA [facility] 04-17-2022 15:49-0500 Systolic blood pressure 102 mm[Hg] Lizy SORIA [facility] 04-13-2022 09:18-0500 Body height 154.9 cm Becka Rubi DO Work Phone: [facility] 04-13-2022 09:18-0500 Body weight 63.96 kg Becka Grubic DO Work Phone: [facility] 04-13-2022 09:18-0500 Diastolic blood pressure 63 mm[Hg] Becka Grubic DO Work Phone: [facility] 04-13-2022 09:18-0500 Heart rate 82 /min Becka Wyattubic DO Work Phone: [facility] 04-13-2022 09:18-0500 Systolic blood pressure 100 mm[Hg] Becka Grubic DO Work Phone: [facility] 04-13-2022 08:58-0500 Body height 154.9 cm Frederic Douglass DO Work Phone: [facility] 04-13-2022 08:58-0500 Body weight 64 kg Frederic Douglass DO Work Phone: [facility] 04-13-2022 08:58-0500 Diastolic blood pressure 63 mm[Hg] Frederic Douglass DO Work Phone: [facility] 04-13-2022 08:58-0500 Heart rate 82 /min Frederic Douglass DO Work Phone: [facility] 04-13-2022 08:58-0500 Systolic blood pressure 100 mm[Hg] Frederic Douglass DO Work Phone: [facility] 03-10-2022 10:52-0500 Body height 154.9 cm Saroj Foss APRN.[employer] SE[employer] MACHINE OPERATOR Work Phone: [facility] 03-10-2022 10:52-0500 Body weight 63.4 kg Saroj Foss DIRECTOR OF [employer]PORATE SALES.[employer] SEWING MACHINE OPERATOR Work Phone: [facility] 03-10-2022 10:52-0500 Diastolic blood pressure 65 mm[Hg] Saroj Foss DIRECTOR OF CORPORATE SALES.OVERLOCK SEWING MACHINE OPERATOR Work Phone: [facility] 03-10-2022 10:52-0500 Heart rate 71 /min Saroj Foss DIRECTOR OF CORPORATE SALES.[employer]LOCK SEWING MACHINE OPERATOR Work Phone: [facility] 03-10-2022 10:52-0500 Respiratory rate 20 /min Saroj Foss DIRECTOR OF CORPORATE SALES.OVERLOCK SEWING MACHINE OPERATOR Work Phone: [facility] 03-10-2022 10:52-0500 SaO2% (BldA) [Mass fraction] 100 % Saroj Foss DIRECTOR OF CORPORATE SALES.OVERLOCK SEWING MACHINE OPERATOR Work Phone: [facility] 03-10-2022 10:52-0500 Systolic blood pressure 103 mm[Hg] Saroj Foss DIRECTOR OF CORPORATE SALES.OVERLOCK SEWING MACHINE OPERATOR Work Phone: [facility] 03-08-2022 14:46-0500 Body temperature 97.59 [degF] Reece Sarmiento MD Work Phone: [facility] 03-08-2022 14:46-0500 Body weight 63.41 kg Reece Sarmiento MD Work Phone: [facility] 03-08-2022 14:46-0500 Diastolic blood pressure 76 mm[Hg] Reece Sarmiento MD Work Phone: [facility] 03-08-2022 14:46-0500 Heart rate 67 /min Reece Sarmiento MD Work Phone: [facility] 03-08-2022 14:46-0500 Respiratory rate 20 /min Reece Sarmiento MD Work Phone: [facility] 03-08-2022 14:46-0500 SaO2% (BldA) [Mass fraction] 97 % Reece Sarmiento MD Work Phone: [facility] 03-08-2022 14:46-0500 Systolic blood pressure 119 mm[Hg] Reece Sarmiento MD Work Phone: [facility] 01-19-2022 09:55-0500 Body height 156.7 cm Reece Sarmiento MD Work Phone: [facility] 01-19-2022 09:55-0500 Body temperature 97.2 [degF] Reece Sarmiento MD Work Phone: [facility] 01-19-2022 09:55-0500 Body weight 58.92 kg Reece Sarmiento MD Work Phone: [facility] 01-19-2022 09:55-0500 Diastolic blood pressure 82 mm[Hg] Reece Sarmiento MD Work Phone: [facility] 01-19-2022 09:55-0500 Heart rate 80 /min Reece Sarmiento MD Work Phone: [facility] 01-19-2022 09:55-0500 Respiratory rate 18 /min Reece Sarmiento MD Work Phone: [facility] 01-19-2022 09:55-0500 SaO2% (BldA) [Mass fraction] 98 % Reece Sarmiento MD Work Phone: [facility] 01-19-2022 09:55-0500 Systolic blood pressure 133 mm[Hg] Reece Sarmiento MD Work Phone: [facility] 01-02-2022 09:25-0500 Blood Pressure Location Clay SALAM [facility] 01-02-2022 09:25-0500 Diastolic blood pressure 68 mm[Hg] Clay SALAM [facility] 01-02-2022 09:25-0500 Heart rate 72 /min Clay SALAM [facility] 01-02-2022 09:25-0500 Respiratory rate 16 /min Clay SALAM [facility] 01-02-2022 09:25-0500 SaO2% (BldA) [Mass fraction] 99 % Clay SALAM [facility] 01-02-2022 09:25-0500 Systolic blood pressure 102 mm[Hg] Clay SALAM [facility] 01-02-2022 09:16-0500 Blood Pressure Location Clay SALAM [facility] 01-02-2022 09:16-0500 Diastolic blood pressure 75 mm[Hg] Clay SALAM [facility] 01-02-2022 09:16-0500 Heart rate 71 /min Clay SALAM [facility] 01-02-2022 09:16-0500 Respiratory rate 15 /min Clay SALAM [facility] 01-02-2022 09:16-0500 SaO2% (BldA) [Mass fraction] 100 % Clay SALAM [facility] 01-02-2022 09:16-0500 Systolic blood pressure 104 mm[Hg] Clay SALAM [facility] 01-02-2022 09:10-0500 Blood Pressure Location Clay SALAM [facility] 01-02-2022 09:10-0500 Diastolic blood pressure 78 mm[Hg] Clay SALAM [facility] 01-02-2022 09:10-0500 Heart rate 69 /min Clay SALAM [facility] 01-02-2022 09:10-0500 Respiratory rate 9 /min Clay SALAM [facility] 01-02-2022 09:10-0500 SaO2% (BldA) [Mass fraction] 100 % Clay SALAM [facility] 01-02-2022 09:10-0500 Systolic blood pressure 105 mm[Hg] Clay SALAM [facility] 01-02-2022 09:00-0500 Body temperature 96.8 [degF] Clay SALAM [facility] 01-02-2022 08:55-0500 Respiratory rate 16 /min Clay SALAM [facility] 01-02-2022 08:50-0500 Respiratory rate 17 /min Clay SALAM [facility] 01-02-2022 08:00-0500 Body temperature 98.96 [degF] Clay SALAM [facility] 12-29-2021 12:46-0500 Blood Pressure Location Alexiakorey RameshMiky [facility] 12-29-2021 12:46-0500 Body temperature 97.34 [degF] Alexia Rameshmetz [facility] 12-29-2021 12:46-0500 Diastolic blood pressure 72 mm[Hg] Alexia Rameshmetz [facility] 12-29-2021 12:46-0500 Heart rate 83 /min Alexia Rameshmetz [facility] 12-29-2021 12:46-0500 Systolic blood pressure 102 mm[Hg] Alexia Rameshmetz [facility] 11-29-2021 09:38-0400 Body height 154.9 cm Chito Noyola MD Work Phone: [facility] 11-29-2021 09:38-0400 Body weight 59.42 kg Chito Noyola MD Work Phone: [facility] 11-29-2021 09:38-0400 Diastolic blood pressure 67 mm[Hg] Chito Noyola MD Work Phone: [facility] 11-29-2021 09:38-0400 Heart rate 68 /min Chito Noyola MD Work Phone: [facility] 11-29-2021 09:38-0400 Respiratory rate 14 /min Chito Noyola MD Work Phone: [facility] 11-29-2021 09:38-0400 SaO2% (BldA) [Mass fraction] 99 % Chito Noyola MD Work Phone: [facility] 11-29-2021 09:38-0400 Systolic blood pressure 112 mm[Hg] Chito Noyola MD Work Phone: [facility] 11-23-2021 11:26-0400 Body height 154.9 cm Saroj Foss DIRECTOR OF CORPORATE SALES.OVERLOCK SEWING MACHINE OPERATOR Work Phone: [facility] 11-23-2021 11:26-0400 Body weight 56.7 kg Saroj Foss DIRECTOR OF CORPORATE SALES.OVERLOCK SEWING MACHINE OPERATOR Work Phone: [facility] 11-23-2021 11:26-0400 Diastolic blood pressure 88 mm[Hg] Saroj Haskinsberman DIRECTOR OF CORPORATE SALES.OVERLOCK SEWING MACHINE OPERATOR Work Phone: [facility] 11-23-2021 11:26-0400 Heart rate 78 /min Saroj Foss DIRECTOR OF CORPORATE SALES.OVERLOCK SEWING MACHINE OPERATOR Work Phone: [facility] 11-23-2021 11:26-0400 SaO2% (BldA) [Mass fraction] 99 % Saroj Haskinsberman DIRECTOR OF CORPORATE SALES.OVERLOCK SEWING MACHINE OPERATOR Work Phone: [facility] 11-23-2021 11:26-0400 Systolic blood pressure 125 mm[Hg] Saroj Foss DIRECTOR OF CORPORATE SALES.OVERLOCK SEWING MACHINE OPERATOR Work Phone: [facility] 09-20-2021 08:58-0400 Body height 154.9 cm Saroj Foss DIRECTOR OF CORPORATE SALES.OVERLOCK SEWING MACHINE OPERATOR Work Phone: [facility] 09-20-2021 08:58-0400 Body weight 58.97 kg Saroj Foss DIRECTOR OF CORPORATE SALES.OVERLOCK SEWING MACHINE OPERATOR Work Phone: [facility] 09-20-2021 08:58-0400 Diastolic blood pressure 80 mm[Hg] Saroj Frances DIRECTOR OF CORPORATE SALES.OVERLOCK SEWING MACHINE OPERATOR Work Phone: [facility] 09-20-2021 08:58-0400 Heart rate 66 /min Saroj Haskinsberman DIRECTOR OF CORPORATE SALES.OVERLOCK SEWING MACHINE OPERATOR Work Phone: [facility] 09-20-2021 08:58-0400 Systolic blood pressure 133 mm[Hg] Saroj Foss DIRECTOR OF CORPORATE SALES.OVERLOCK SEWING MACHINE OPERATOR Work Phone: [facility] 08-04-2021 14:11-0400 Diastolic blood pressure 83 mm[Hg] DO Lizy Soria Work Phone: [facility] 08-04-2021 14:11-0400 Heart rate 74 /min DO Lizy Soria Work Phone: [facility] 08-04-2021 14:11-0400 Respiratory rate 18 /min DO Lizy Soria Work Phone: [facility] 08-04-2021 14:11-0400 SaO2% (BldA) [Mass fraction] 97 % DO Lizy Soria Work Phone: [facility] 08-04-2021 14:11-0400 Systolic blood pressure 119 mm[Hg] DO Lizy Soria Work Phone: [facility] 08-04-2021 12:16-0400 Body height 154.94 cm DO Lizy Soria Work Phone: [facility] 08-04-2021 12:16-0400 Body mass index (BMI) [Ratio] 23.6 kg/m2 DO Lizy Soria Work Phone: [facility] 08-04-2021 12:16-0400 Body temperature 98.1 [degF] DO Lizy Soria Work Phone: [facility] 08-04-2021 12:16-0400 Body weight 56.69 kg DO Lizy Soria Work Phone: [facility] 07-25-2021 16:16-0400 Blood Pressure Location Lizy SORIA [facility] [place] 07-25-2021 16:16-0400 Body temperature 97.16 [degF] Lizy SORIA [facility] 07-25-2021 16:16-0400 Diastolic blood pressure 72 mm[Hg] Lizy SORIA [facility] 07-25-2021 16:16-0400 Heart rate 79 /min Lizy SORIA [facility] 07-25-2021 16:16-0400 SaO2% (BldA) [Mass fraction] 99 % Lizy SORIA [facility] 07-25-2021 16:16-0400 Systolic blood pressure 104 mm[Hg] Lizy SORIA [facility] Encounters Encounter Date Encounter Type Care Provider Facility Start: 03-07-2023 End: 03-07-2023 ambulatory JENNY EBONICHEVY Facility:[facility] Start: 02-22-2023 End: 02-22-2023 ambulatory [facility] Start: 02-08-2023 End: 02-09-2023 ambulatory [facility]ZY [facility] Start: 01-23-2023 End: 01-23-2023 ambulatory Jenny South DIRECTOR OF CORPORATE SALES.INTER COM SERVICER Work Phone: Allergy Comment on above: CVID (common variabl e immunodeficiency) (HCC) (Primary Dx); Recurrent infections; Positive MUMTAZ antibody Start: 01-23-2023 End: 01-23-2023 Telemedicine consultation with patient Jenny South DIRECTOR OF CORPORATE SALES.INTER COM SERVICER Work Phone: [facility] Start: 01-22-2023 End: 01-22-2023 [facility] Antoine Costa MD Work Phone: Psychiatry Comment on above: PTSD (post-traumatic stress disorder) (Primary Dx); Generalized anxiety disorder; Episodic mood disorder (HCC); Functional neurological symptom disorder with mixed symptoms Start: 01-04-2023 End: 01-04-2023 [facility] Moreno Fernandez PSYD Work Phone: [facility] Comment on above: MDD (major depressiv e disorder), recurrent episode, moderate (HCC) (Primary Dx); Trauma and stressor-related disorder; Functional neurological symptom disorder with weakness or paralysis Start: 12-13-2022 End: 12-13-2022 ambulatory LIZY SORIA Facility:[facility] Start: 12-06-2022 ambulatory BECKA RUBI Facilit y:[facility] Start: 12-06-2022 End: 12-06-2022 Subsequent hospital visit by physician Becka Rubi DO Work Phone: [facility] Comment on above: Gastroparesis [K31.8 4] Start: 12-01-2022 ambulatory Becka busch DO Work Phone: General Surgery Comment on above: POP Procedure Start: 12-01-2022 E-mail encounter fro m caregiver Becka Rubi DO Work Phone: [facility] Start: 11-22-2022 End: 11-22-2022 ambulatory BECKA RUBI Facility:[facility] Start: 11-22-2022 End: 11-22-2022 [facility] [place] 1 Virtual 2 Pre Anesthesia Comment on above: Preoperative examina tion (Primary Dx); Gastroparesis; POTS (postural orthostatic tachycardia syndrome); Former smoker; Gastroesophageal reflux disease, unspecified whether esophagitis present; Stage 2 chronic kidney disease; CVID (common variable immunodeficiency) (HCC); History of colectomy; Anxiety; Depression, unspecified depression type; PTSD (post-traumatic stress disorder) Start: 11-22-2022 End: 11-22-2022 Preprocedural examination done Pac 2 [facility] Work Phone: Start: 11-21-2022 End: 11-21-2022 ambulatory LIZY SORIA Facility:[facility] Start: 11-16-2022 End: 11-16-2022 ambulatory BECKA RUBI Facility:[facility] Start: 11-09-2022 ambulatory Frederic S Clin e DO Work Phone: Gastroenterology Comment on above: Smart pill Start: 2022 End: 2022 [facility] Saroj Foss DIRECTOR OF CORPORATE SALES.OVERLOCK SEWING MACHINE OPERATOR Work Phone: Neurology Comment on above: Orthostatic [...] caregiver Bernarda Hernandez PT Work Phone: [facility] Start: 10-19-2022 Follow-up encounter Bernarda newell PT Work Phone: [facility] Physical Therapy Comment on above: Follow up after PT v isit Cognitive communicat ion disorder (Primary Dx) Start: 10-18-2022 End: 10-19-2022 [facility] LIZY SORIA Facility:[facility] Start: 10-18-2022 End: 10-18-2022 [facility] LIZY SORIA Facility:[facility] Start: 10-18-2022 End: 10-18-2022 Office outpatient visit 40 minutes Muna Lackey MD Work Phone: [facility] Comment on above: Functional neurologi vinnie symptom disorder with weakness or paralysis Start: 10-18-2022 End: 10-18-2022 OT/PT/Speech Visit Bernarda Hernandez PT Work Phone: [facility] Physical Therapy Comment on above: Functional neurologi vinnie symptom disorder with weakness or paralysis; Gait instability Start: 10-18-2022 End: 10-18-2022 OT/PT/Speech Visit Saroj Booker [facility] Work Phone: [facility] Comment on above: [...] DIFF Start: 10-16-2022 End: 10-17-2022 ambulatory ARSH KIESR Facility:[facility] Start: 10-16-2022 End: 10-16-2022 Patient encounter procedure Arsh Kiser MD, PhD Work Phone: Rheumatology Comment on above: CVID (common variabl e immunodeficiency) (HCC) (Primary Dx); Recurrent infections; Other fatigue; Stiff person syndrome Start: 10-05-2022 End: 10-06-2022 ambulatory Frederic Douglass DO Work Phone: General Surgery Start: 10-05-2022 Chart abstracting Megan Ma RN [facility] Start: 09-25-2022 End: 09-25-2022 ambulatory Megan Ma RNtreasury analyst Start: 09-25-2022 Patient encounter procedure Megan Ma RN [facility] Start: 09-25-2022 End: 09-25-2022 Subsequent hospital visit by physician Capsule Work Phone: Gastroenterology Comment on above: Gastroparesis [K31.8 4] Start: 09-21-2022 ambulatory Obed MASON Facility:[facility] Start: 09-14-2022 Telephone encounter Megan Ma RNtreasury analyst Comment on above: [employer] Start: 09-05-2022 End: 09-05-2022 ambulatory LIZY SORIA Facility:[facility] Start: 09-05-2022 End: 09-05-2022 [facility] Courtney Randhawa PA-C Work Phone: Neurology Comment on above: Functional movement disorder (Primary Dx); Seizure-like activity (HCC) Start: 08-24-2022 Chart abstracting Bebeto Perry MD Work Phone: [facility] Comment on above: Stiff Person Spectru m Ab Testing Start: 08-10-2022 End: 08-10-2022 ambulatory LIZY SORIA Facility:[facility] Start: 08-10-2022 End: 08-10-2022 ambulatory LIZY SORIA Facility:[facility] Start: 08-10-2022 End: 08-10-2022 Patient encounter procedure Bebeto Perry MD Work Phone: [facility] Comment on above: Functional neurologi vinnie symptom disorder with weakness or paralysis (Primary Dx); Stiffman syndrome; Incoordination of extremity; Gait instability; Other speech disturbance; Functional movement disorder Start: 07-25-2022 End: 07-25-2022 Patient encounter procedure Lizy SORIA [facility] Medicine [place] Start: 07-25-2022 End: 07-26-2022 ambulatory Arsh Kiser MD, PhD Work Phone: Allergy Comment on above: ATTN. Alvarado Start: 07-25-2022 Telephone encounter Arsh villatoro MD, PhD Work Phone: Allergy Comment on above: Patient Update (Accr david ) Start: 07-24-2022 Chart abstracting Jenny Anthony icki DIRECTOR OF CORPORATE SALES.INTER COM SERVICER Work Phone: Allergy Start: 07-24-2022 Telephone encounter Antoine PARRA Comment on above: Follow Up Phone Call (All clear) Start: 07-21-2022 ambulatory Arsh perez MD, PhD Work Phone: Allergy Comment on above: IVIG Start: 07-16-2022 Orders Only Vesta Brown DIRECTOR OF CORPORATE SALES.OVERLOCK SEWING MACHINE OPERATOR Work Phone: [facility] Comment on above: Stiffman syndrome (P rimary Dx) Start: 07-14-2022 End: 07-16-2022 Evaluation and management of inpatient LIZY SORIA Facility:[facility] Start: 07-14-2022 End: 07-14-2022 ambulatory LIZY SORIA Facility:[facility] Start: 07-11-2022 Telephone encounter Aakash Alvarado DO Work Phone: Neurology Comment on above: Approval Letter (Ove rnight Brainwave Study (EEG)) Start: 07-03-2022 Chart abstracting Quiana Hendricks MD Work Phone: Neurology Start: 07-03-2022 End: 07-04-2022 ambulatory LIZY SORIA Facility:[facility] Start: 07-03-2022 End: 07-03-2022 Patient encounter procedure Kim Rogers MD Work Phone: Neurology Comment on above: Muscle weakness (Maribel sammi Dx); Proximal leg weakness; Spasm of muscle; Abnormal laboratory test Start: 06-29-2022 Telephone encounter Arsh villatoro MD, PhD Work Phone: Allergy Comment on above: Faxed Clinical Notes / Prescription ([facility]) Start: 06-29-2022 End: 06-30-2022 ambulatory LIZY SORIA Facility:[facility] Start: 06-27-2022 End: 06-27-2022 Patient encounter procedure Saroj Foss APRN.OVERLOCK SEWING MACHINE OPERATOR Work Phone: Neurology Comment on above: Proximal leg weaknes s (Primary Dx); MUMTAZ (generalized anxiety disorder); Orthostatic lightheadedness; Spasm of muscle; History of seizure; Abnormal laboratory test Start: 06-27-2022 Chart abstracting Arsh macario MD, PhD Work Phone: Allergy Start: 06-27-2022 End: 06-27-2022 ambulatory ARSH KISER Facility:[facility] Start: 06-27-2022 End: 06-27-2022 ambulatory Arsh Kiser MD, PhD Work Phone: Allergy Comment on above: CVID (common variabl e immunodeficiency) (HCC) (Primary Dx); Enteropathy; Cytopenia Start: 06-27-2022 End: 06-27-2022 Telemedicine consultation with patient Arsh Kiser MD, PhD Work Phone: [facility] Start: 06-19-2022 ambulatory Elayne ([facility] Start: 06-12-2022 Refill Saroj rogers APRN.OVERLOCK SEWING MACHINE OPERATOR Work Phone: Neurology Comment on above: Refill Request Start: 06-09-2022 End: 06-09-2022 ambulatory LIZY SORIA Facility:[facility] Start: 06-09-2022 End: 06-09-2022 ambulatory Frederic S Douglass DO Work Phone: Gastroenterology Comment on above: POTS (postural ortho static tachycardia syndrome) (Primary Dx); Gastroparesis; Positive MUMTAZ antibody Start: 06-09-2022 End: 06-09-2022 Telemedicine consultation with patient Frederic Douglass DO Work Phone: [facility] Start: 05-11-2022 Telephone encounter Frederic Douglass DO Work Phone: Gastroenterology Comment on above: Appointment (To disc uss lab results) Start: 04-17-2022 End: 04-18-2022 ambulatory Lizy SORIA Facility:[facility] Start: 04-17-2022 End: 04-17-2022 Patient encounter procedure Lizy SORIA [facility] [place] Start: 04-16-2022 ambulatory Frederic S Clin e DO Work Phone: Gastroenterology Comment on above: Concussion with new GI symptoms Start: 04-13-2022 Refill Saroj rogers APRN.OVERLOCK SEWING MACHINE OPERATOR Work Phone: Neurology Comment on above: Refill Request Start: 04-13-2022 End: 04-14-2022 ambulatory FREDERIC S DOUGLASS Facility:[facility] Start: 04-13-2022 End: 04-13-2022 Subsequent hospital visit by physician [facility] Comment on above: History of colectomy [Z90.49] Start: 04-13-2022 End: 04-13-2022 ambulatory NILAM GARCIA Facility:[facility] Start: 04-13-2022 End: 04-13-2022 Patient encounter procedure Frederic Douglass Work Phone: Gastroenterology Comment on above: Gastroparesis (Prima ry Dx); History of colectomy; Chronic idiopathic constipation Gastroparesis (Prima ry Dx); Dysautonomia (HCC) Start: 04-12-2022 Telephone encounter Frederic Douglass DO Work Phone: Gastroenterology Comment on above: Surveillance Analyst - O jamarcus (Gastroparesis clinic: chart review; new patient call - no answer) Start: 04-11-2022 End: 04-13-2022 ambulatory LIZY SORIA Facility:[facility] Start: 04-11-2022 End: 04-11-2022 ambulatory Emg 1000) Work Phone: Neurology Comment on above: EMG Start: 04-11-2022 End: 04-11-2022 Patient encounter procedure Emg 4 Neur Main (Max Weight: 1000) Work Phone: [facility] Start: 03-28-2022 End: 03-28-2022 ambulatory ARSH KISER Facility:[facility] Start: 03-28-2022 End: 03-28-2022 ambulatory Arsh Kiser MD, PhD Work Phone: Allergy Comment on above: CVID (common variabl e immunodeficiency) ([facility]) (Primary Dx); Enteropathy; Cytopenia; Recurrent infections Start: 03-28-2022 End: 03-28-2022 Telemedicine consultation with patient Arsh Kiser MD, PhD Work Phone: [facility] Start: 03-13-2022 Refill Saroj rogers APRN.CNP Work Phone: Neurology Comment on above: Refill Request Start: 03-10-2022 End: 03-11-2022 ambulatory ARSH KISER Facility:[facility] Start: 03-10-2022 End: 03-10-2022 Patient encounter procedure Saroj Foss APRN.OVERLOCK SEWING MACHINE OPERATOR Work Phone: Neurology Comment on above: Proximal leg weaknes s (Primary Dx); POTS (postural orthostatic tachycardia syndrome); Tension headache Start: 03-08-2022 End: 03-08-2022 Patient encounter procedure Reece Sarmiento MD Work Phone: [facility] Start: 03-08-2022 End: 03-08-2022 Telephone encounter Arsh Kiser MD, PhD Work Phone: Allergy Comment on above: Medication Authoriza tion ([place] ) Iron disorder (Prima ry Dx) Start: 03-07-2022 End: 03-07-2022 ambulatory Chito Noyola MD Work Phone: [facility] Comment on above: Tremulousness (Prima ry Dx) Start: 03-07-2022 End: 03-07-2022 Telemedicine consultation with patient Chito Noyola MD Work Phone: [facility] Start: 03-01-2022 End: 03-01-2022 ambulatory Saroj Foss APRN.OVERLOCK SEWING MACHINE OPERATOR Work Phone: Neurology Comment on above: NO SHOW (Primary Dx) Start: 03-01-2022 End: 03-01-2022 Telemedicine consultation with patient Saroj Haskinselda SPENCER.OVERLOCK SEWING MACHINE OPERATOR Work Phone: [facility] Start: 02-21-2022 Telephone encounter Arsh villatoro MD, PhD Work Phone: Allergy Comment on above: Prescription Faxed ( [facility] ) Start: 02-17-2022 Orders Only Reece Sarmiento MD Work Phone: Hematology/Oncology Comment on above: Iron disorder (Prima ry Dx) Start: 02-15-2022 Refill Saroj rogers APRN.OVERLOCK SEWING MACHINE OPERATOR Work Phone: Neurology Comment on above: Refill Request Start: 02-10-2022 End: 02-10-2022 [facility] Mercedes Swenson DO Work Phone: Neurology Comment on above: Chronic insomnia (Pr imary Dx); Malaise and fatigue; Somnambulism; Somniloquy; Sleep-related movement disorder; Non-rapid eye movement sleep arousal disorder, sleep walking type Start: 02-08-2022 Telephone encounter Lizy Soria DO Work Phone: [address] [place] [address] Comment on above: Follow Up Phone Call (Post Discharge F/U - attempt made. No answer.) Start: 02-01-2022 Telephone encounter Arsh villatoro MD, PhD Work Phone: Allergy Comment on above: Patient Update Start: 01-31-2022 End: 01-31-2022 Evaluation and management of inpatient CHARLY Bajwa SWAPNIL Facility:[facility] Start: 01-31-2022 Telephone encounter Lester russo MD Work Phone: Ambulatory Surgery Comment on above: Appointment Start: 01-30-2022 ambulatory [facility] RT(R) [facility] Radiology Molecular Comment on above: Radiology NM Start: 01-30-2022 Patient encounter procedure [facility] RT(R) [facility] Start: 01-26-2022 End: 01-31-2022 Evaluation and management of inpatient ARSH NAMAN HERNANDEZ Facility:[facility] Start: 01-26-2022 Telephone encounter Kathryn Gutierrez RN Hematology/Oncology Comment on above: Surveillance Analyst - O ther; ED report Start: 01-25-2022 End: 01-25-2022 Patient encounter procedure Lab Vicente Fontanez Work Phone: Laboratory Medicine Comment on above: Thrombocytopenia (HC C); Elevated LFTs; Iron disorder Start: 01-24-2022 Orders Only Reece Sarmiento MD Work Phone: Hematology/Oncology Comment on above: Bezoar, initial enco unter (Primary Dx) Start: 01-23-2022 Telephone encounter Reece gauthier MD Work Phone: Hematology/Oncology Comment on above: Surveillance Analyst - O ther (Motor Boss ) Start: 01-19-2022 End: 01-19-2022 Visit (SP) Office Reece Sarmiento MD Work Phone: Hematology/Oncology Comment on above: Iron disorder (Prima ry Dx); Acquired hypothyroidism Start: 01-17-2022 Telephone encounter Reece gauthier MD Work Phone: Hematology/Oncology Comment on above: Surveillance Analyst - O ther Start: 01-17-2022 End: 01-17-2022 ambulatory Arsh Kiser MD, PhD Work Phone: Allergy Comment on above: CVID (common variabl e immunodeficiency) (HCC) (Primary Dx); Recurrent infections; Enteropathy; Cytopenia Start: 01-17-2022 End: 01-17-2022 Telemedicine consultation with patient Arsh Kiser MD, PhD Work Phone: [facility] Start: 01-11-2022 Chart abstracting Chilo jones MD Work Phone: Hematology/Oncology Start: 01-03-2022 Telephone encounter Arsh villatoro MD, PhD Work Phone: Allergy Comment on above: Prior Authorization ([facility] ) Start: 01-02-2022 End: 01-03-2022 [facility] Start: 01-02-2022 End: 01-02-2022 [facility] Start: 12-30-2021 End: 12-31-2021 ambulatory Alexia A Miky Facility:[facility] Start: 12-30-2021 End: 12-30-2021 Lab Drop off Alexia Bolaños [facility] Start: 12-29-2021 End: 12-30-2021 ambulatory Alexia A Miky Facility:[facility] Start: 12-29-2021 End: 12-29-2021 Patient encounter procedure Alexia Bolaños [facility] Start: 12-22-2021 Telephone encounter Arsh villatoro MD, PhD Work Phone: Allergy Comment on above: Patient Update (Accr david ) Start: 12-06-2021 Telephone encounter Arsh villatoro MD, PhD Work Phone: Allergy Comment on above: Plan of Care (Accred o) Start: 12-02-2021 ambulatory Saroj rogers DIRECTOR OF CORPORATE SALES.OVERLOCK SEWING MACHINE OPERATOR Work Phone: Neurology Comment on above: Tension headache Start: 11-29-2021 End: 11-29-2021 Patient encounter procedure Chito Noyola MD Work Phone: Neurological [place] Comment on above: Tremulousness (Prima ry Dx) Start: 11-23-2021 End: 11-23-2021 Patient encounter procedure Saroj Foss DIRECTOR OF CORPORATE SALES.OVERLOCK SEWING MACHINE OPERATOR Work Phone: Neurology Comment on above: Tremulousness (Prima ry Dx); Subjective weakness; Tachycardia; Subjective cognitive impairment; Chronic fatigue; Sleep walking disorder Start: 11-11-2021 Telephone encounter Arsh villatoro MD, PhD Work Phone: Allergy Comment on above: Patient Update Start: 11-01-2021 End: 11-02-2021 ambulatory Lizy SORIA Facility:[facility] Start: 10-31-2021 End: 10-31-2021 ambulatory Skin Biopsy Work Phone: Neurology Start: 10-31-2021 End: 10-31-2021 Patient encounter procedure Skin Biopsy Work Phone: [facility] Start: 10-28-2021 Telephone encounter Arsh villatoro MD, PhD Work Phone: Allergy Comment on above: Patient Question Start: 10-11-2021 End: 10-11-2021 Subsequent hospital visit by physician [facility] (I-Stat/1.5t) Radiology Comment on above: Demyelinating diseas e of central nervous system (HCC) [G37.9] Start: 10-03-2021 End: 10-03-2021 Patient encounter procedure Kulwant Castillo MD Work Phone: Ophthalmology Comment on above: Other localized visu al field defect, bilateral (Primary Dx); Blurry vision, bilateral; Positional headache Start: 09-20-2021 End: 09-20-2021 Patient encounter procedure Saroj Foss APRN.OVERLOCK SEWING MACHINE OPERATOR Work Phone: Neurology Comment on above: Orthostatic [...] 08-17-2021 End: 08-17-2021 Patient encounter procedure Lizy SROIA [facility] Start: 08-15-2021 ambulatory Arsh perez MD, PhD Work Phone: Allergy Comment on above: Important Start: 08-08-2021 End: 08-08-2021 ambulatory Arsh Kiser MD, PhD Work Phone: Allergy Comment on above: CVID (common variabl e immunodeficiency) (HCC) (Primary Dx); Recurrent infections; Enteropathy Start: 08-08-2021 End: 08-08-2021 Telemedicine consultation with patient Arsh Kiser MD, PhD Work Phone: F [facility] Start: 08-04-2021 End: 08-04-2021 Emergency department patient visit DO Lizy Soria Work Phone: [facility] Start: 08-03-2021 End: 08-03-[address] FELA MARTINEZ Facility:[facility] Start: 07-25-2021 End: 07-25-2021 Patient encounter procedure Lizy SORIA [facility] [place] Start: 07-15-2021 Telephone encounter Arsh villatoro MD, [...] 04-13-2022 Radiologic exam abdomen 1 view Frederic Duoglass DO Work Phone: Start: 04-11-2022 Nerve conduction studies 5-6 studies Saroj Foss DIRECTOR OF CORPORATE SALES.OVERLOCK SEWING MACHINE OPERATOR Work Phone: Start: 01-25-2022 ACTIN SMOOTH MUSCLE [...] cervical w/o & w/contr matrl Saroj Foss APRN.OVERLOCK SEWING MACHINE OPERATOR Work Phone: Start: 10-03-2021 End: 10-03-2021 Visual [...] result abnormal Abnormal laboratory test Saroj Foss APRN.OVERLOCK SEWING MACHINE OPERATOR Work Phone: Laboratory test result abnormal Abnormal laboratory test Kim Rogers MD Work Phone: Robotic laparoscopic total abdominal colectomy with ileorectal anastomosis and diverting ileostomy Lizy SORIA Small intestine excision Tima SORIA Plan of Treatment Date Care Activity Detail Author Start: 11-22-2023 Creatinine measurement Serum Creatin ine [facility] Start: 11-22-2023 Serum Creatinine Serum Creatinine [facility] Start: 07-16-2023 SERUM CREATININE SERUM CREATININE [facility] Start: 03-10-2023 SERUM CREATININE SERUM CREATININE [facility] Start: 03-08-2023 SERUM CREATININE SERUM CREATININE [facility] Start: 02-17-2023 SERUM CREATININE SERUM CREATININE [facility] Start: 01-31-2023 SERUM CREATININE SERUM CREATININE [facility] Start: 01-30-2023 SERUM CREATININE SERUM CREATININE [facility] Start: 01-28-2023 SERUM CREATININE SERUM CREATININE [facility] Start: 2022 End: 01-08-2023 Comprehensive metabolic 2000 panel - Serum or Plasma COMP METABOLIC PANEL Lab Routine Orthostatic lightheadedness Expected: 2022, Expires: 01/08/2023 [facility] Work Phone: Comment on above: Expected: 2022 , Expires: 01/08/2023 Start: 10-20-2022 Influenza vaccination [facility] Start: 08-10-2022 End: 10-10-2022 MISC SEND OUT TST 1 [facility] Work Phone: Comment on above: Expected: 08/10/2022 (Approximate), Expires: 10/10/2022 Start: 04-13-2022 End: 06-13-2022 ACETYLCHOLINE REC BINDING AB [facility] Work Phone: Comment on above: Expected: 04/13/2022 , Expires: 06/13/2022 Start: 04-13-2022 End: 06-13-2022 AMINO ACIDS, PLASMA W/ CONSULTATION [facility] Work Phone: Comment on above: Expected: 04/13/2022 , Expires: 06/13/2022 Start: 04-13-2022 End: 06-13-2022 CARNITINE FREE/TOTAL, PLASMA [facility] Work Phone: Comment on above: Expected: 04/13/2022 , Expires: 06/13/2022 Start: 04-13-2022 End: 06-13-2022 CYTOKINE PANEL 13, SERUM [facility] Work Phone: Comment on above: Expected: 04/13/2022 , Expires: 06/13/2022 Start: 04-13-2022 End: 06-13-2022 Erythrocyte sedimentation rate [facility] Work Phone: Comment on above: Expected: 04/13/2022 , Expires: 06/13/2022 Start: 04-13-2022 End: 06-13-2022 ESTROGEN FRACTION BL [facility] Work Phone: Comment on above: Expected: 04/13/2022 , Expires: 06/13/2022 Start: 04-13-2022 End: 06-13-2022 Glutamate decarboxylase 65 Ab [Units/volume] in Serum [facility] Work Phone: Comment on above: Expected: 04/13/2022 , Expires: 06/13/2022 Start: 04-13-2022 End: 06-13-2022 Hemoglobin A1c in Blood [facility] Work Phone: Comment on above: Expected: 04/13/2022 , Expires: 06/13/2022 Start: 04-13-2022 End: 06-13-2022 IgA [Mass/volume] in Serum or Plasma [facility] Work Phone: Comment on above: Expected: 04/13/2022 , Expires: 06/13/2022 Start: 04-13-2022 End: 06-13-2022 IgG [Mass/volume] in Serum or Plasma [facility] Work Phone: Comment on above: Expected: 04/13/2022 , Expires: 06/13/2022 Start: 04-13-2022 End: 06-13-2022 IgM [Mass/volume] in Serum or Plasma [facility] Work Phone: Comment on above: Expected: 04/13/2022 , Expires: 06/13/2022 Start: 04-13-2022 End: 06-13-2022 Lactate dehydrogenase [Enzymatic activity/volume] in Serum or Plasma [facility] Work Phone: Comment on above: Expected: 04/13/2022 , Expires: 06/13/2022 Start: 04-13-2022 End: 04-25-2023 ORGANIC ACIDS UR, QUANT W/CONSULTATION [facility] Work Phone: Comment on above: Expected: 04/13/2022 , Expires: 06/13/2022 Start: 04-13-2022 End: 06-13-2022 PLASMA THYMIDINE DETERMINATION [facility] Work Phone: Comment on above: Expected: 04/13/2022 , Expires: 06/13/2022 Start: 04-13-2022 End: 06-13-2022 PYRUVATE+LACTATE BL [facility] Work Phone: Comment on above: Expected: 04/13/2022 , Expires: 06/13/2022 Start: 04-13-2022 End: 06-13-2022 Thyroxine (T4) free [Mass/volume] in Serum or Plasma [facility] Work Phone: Comment on above: Expected: 04/13/2022 , Expires: 06/13/2022 Start: 04-13-2022 End: 06-13-2022 VOLTAGE GATED CA IGG [facility] Work Phone: Comment on above: Expected: 04/13/2022 , Expires: 06/13/2022 Start: 04-13-2022 End: 06-13-2022 Voltage-gated potassium channel Ab [Moles/volume] in Serum [facility] Work Phone: Comment on above: Expected: 04/13/2022 , Expires: 06/13/2022 Start: 04-10-2022 End: 06-10-2022 Comprehensive metabolic 2000 panel - Serum or Plasma COMP METABOLIC PANEL Lab Routine Proximal leg weakness Expected: 04/10/2022, Expires: 06/10/2022 [facility] Work Phone: Comment on above: Expected: 04/10/2022 , Expires: 06/10/2022 Start: 03-10-2022 End: 05-10-2022 Creatine kinase [Enzymatic activity/volume] in Serum or Plasma [facility] Work Phone: Comment on above: Expected: 03/10/2022 , Expires: 05/10/2022 Start: 03-10-2022 End: 05-10-2022 Lactate dehydrogenase [Enzymatic activity/volume] in Serum or Plasma [facility] Work Phone: Comment on above: Expected: 03/10/2022 , Expires: 05/10/2022 Start: 03-10-2022 End: 05-10-2022 MUSK ANTIBODY TEST [facility] Work Phone: Comment on above: Expected: 03/10/2022 , Expires: 05/10/2022 Start: 03-08-2022 End: 05-08-2022 Asael Connors virus DNA [#/volume] (viral load) in Blood by JEAN with probe detection [facility] Work Phone: Comment on above: Expected: 03/08/2022 , Expires: 05/08/2022 Start: 01-19-2022 End: 03-21-2022 COPPER BLOOD [facility] Work Phone: Comment on above: Expected: 01/19/2022 , Expires: 03/21/2022 Start: 01-19-2022 End: 03-21-2022 HEAVY METALS SCRN BL [facility] Work Phone: Comment on above: Expected: 01/19/2022 , Expires: 03/21/2022 Start: 01-19-2022 End: 03-21-2022 Methylmalonate [Moles/volume] in Serum or Plasma [facility] Work Phone: Comment on above: Expected: 01/19/2022 , Expires: 03/21/2022 Start: 01-19-2022 End: 03-21-2022 MYELOID NGS PANEL PERIPHERAL BLOOD [facility] Work Phone: Comment on above: Expected: 01/19/2022 , Expires: 03/21/2022 Start: 01-19-2022 End: 03-21-2022 Zinc [Mass/volume] in Serum or Plasma [facility] Work Phone: Comment on above: Expected: 01/19/2022 , Expires: 03/21/2022 Start: 11-23-2021 End: 01-23-2022 ACETYLCHOLINE REC BINDING AB [facility] Work Phone: Comment on above: Expected: 11/23/2021 , Expires: 01/23/2022 Start: 11-23-2021 End: 01-23-2022 Alpha tocopherol [Mass/volume] in Serum or Plasma [facility] Work Phone: Comment on above: Expected: 11/23/2021 , Expires: 01/23/2022 Start: 11-23-2021 End: 01-23-2022 Ceruloplasmin [Mass/volume] in Serum or Plasma [facility] Work Phone: Comment on above: Expected: 11/23/2021 , Expires: 01/23/2022 Start: 10-20-2021 Influenza vaccination [facility] Start: 09-20-2021 End: 11-20-2021 25-hydroxyvitamin D3 [Mass/volume] in Serum or Plasma [facility] Work Phone: Comment on above: Expected: 09/20/2021 , Expires: 11/20/2021 Start: 09-20-2021 End: 11-20-2021 Alpha tocopherol [Mass/volume] in Serum or Plasma [facility] Work Phone: Comment on above: Expected: 09/20/2021 , Expires: 11/20/2021 Start: 09-20-2021 End: 11-20-2021 Hemoglobin A1c in Blood [facility] Work Phone: Comment on above: Expected: 09/20/2021 , Expires: 11/20/2021 Start: 11-09-2015 HPV TESTING HPV TESTING [facility] Start: 11-09-2015 Screening for malign ant neoplasm of cervix HPV Testing [facility] Start: 11-04-2013 PAP TESTING PAP TESTING [facility] Start: 11-04-2013 Screening for malign ant neoplasm of cervix Pap Testing [facility] Start: 08-04-2010 PNEUMOCOCCAL (2 - PCV) PNEUMOCOCCAL (2 - PCV) [facility] Start: 08-04-2010 Pneumococcal vaccination Pneum ococcal Vaccine (2 - PCV) [facility] Start: 2004 SHINGRIX VACCINE (1 of 2) SHINGRIX VACCINE (1 of 2) [facility] Start: 2004 Urine microalbumin profile [facility] Start: 11-09-2003 ANNUAL PCP TEAM SENIOR INTERIOR DESIGNER GINA DISEASE VISIT ANNUAL PCP TEAM CHRONIC DISEASE VISIT [facility] Start: 11-09-2003 HIV SCREENING HIV SCREENING [facility] Start: 1997 COVID-19 VACCINE (1) COVID-19 VACCIN E (1) [facility] Start: 11-09-1991 PNEUMOCOCCAL (1 - PCV) PNEUMOCOCCAL (1 - PCV) [facility] Start: 1990 COVID-19 VACCINE (#1) COVID-19 VACCI NE (#1) [facility] Start: 05-08-1986 COVID-19 VACCINE (#1) COVID-19 VACCI NE (#1) [facility] Start: 1985 HEPATITIS B (1 of 3 - 3-dose series) HEPATITIS B (1 of 3 - 3-dose series) [facility] End: 04-13-2023 [place]ULT [place] [facility] Endoscopy Routine History of colectomy Chronic idiopathic constipation 1 Occurrences starting 04/13/2022 until 04/13/2023 [facility] Work Phone: Comment on above: 1 Occurrences starti ng 04/13/2022 until 04/13/2023 ALPHA 1 ANTITRYPSIN PHENOTYPE ALPHA 1 ANTITRYPSIN PHENOTYPE Lab Routine Elevated LFTs Iron disorder 01/25/2022 12:30 PM [facility] Work Phone: Comprehensive metabo lic 2000 panel - Serum or Plasma COMP METABOLIC PANEL Lab Routine Proximal leg weakness 03/10/2022 12:37 PM EST [facility] Work Phone: End: 03-10-2023 EMG(NEURO/NI) EMG(NEURO/NI) EMG Routine Proximal leg weakness 1 Occurrences starting 03/10/2022 until 03/10/2023 [facility] Work Phone: Comment on above: 1 Occurrences starti ng 03/10/2022 until 03/10/2023 End: 07-04-2023 EMG(NEURO/NI) EMG(NEURO/NI) EMG Routine Muscle weakness 1 Occurrences starting 07/03/2022 until 07/04/2023 [facility] Work Phone: Comment on above: 1 Occurrences starti ng 07/03/2022 until 07/04/2023 End: 06-28-2023 EPIL EEG LONG EPIL EEG LONG NEUROLOGY Routine History of seizure 1 Occurrences starting 06/27/2022 until 06/28/2023 [facility] Work Phone: Comment on above: 1 Occurrences starti ng 06/27/2022 until 06/28/2023 EPIL VEEG ADMIT TO EMU/PMU EPIL VEEG ADMIT TO EMU/PMU NEUROLOGY Routine Convulsions, unspecified convulsion type (HCC) Ordered: 07/03/2022 [facility] Work Phone: Comment on above: Ordered: 07/03/2022 End: 04-13-2023 Gi transit & pres abimael wireless capsule w/interp CAPSULE ENDOSCOPY SMART Endoscopy Routine Gastroparesis 1 Occurrences starting 04/13/2022 until 04/13/2023 [facility] Work Phone: Comment on above: 1 Occurrences starti ng 04/13/2022 until 04/13/2023 Gi transit & pres me as wireless capsule w/interp CAPSULE ENDOSCOPY SMART Endoscopy Routine Gastroparesis 09/25/2022 [facility] Work Phone: End: 10-20-2022 Mri brain brain stem w/o w/contrast material MRI BRAIN WO/W IVCON Radiology Routine Demyelinating disease of central nervous system (HCC) 1 Occurrences starting 09/20/2021 until 10/20/2022 [facility] Work Phone: Comment on above: 1 Occurrences starti ng 09/20/2021 until 10/20/2022 End: 10-20-2022 Mri spinal canal cervical w/o & w/contr matrl MRI CERVICAL SPINE WO/W IVCON Radiology Routine Demyelinating disease of central nervous system (HCC) 1 Occurrences starting 09/20/2021 until 10/20/2022 [facility] Work Phone: Comment on above: 1 Occurrences starti ng 09/20/2021 until 10/20/2022 NEURO CARDIO AUTONOM IC REFLEX W/WO TILT NEURO CARDIO AUTONOMIC REFLEX W/WO TILT Procedures Routine Disturbance of skin sensation Hypotension, postural Ordered: 09/20/2021 [facility] Work Phone: Comment on above: Ordered: 09/20/2021 NEURO CARDIO AUTONOM IC REFLEX W/WO TILT NEURO CARDIO AUTONOMIC REFLEX W/WO TILT Procedures Routine Orthostatic lightheadedness Ordered: 06/27/2022 [facility] Work Phone: Comment on above: Ordered: 06/27/2022 NEURO QSART NEURO QSART Proc edures Routine Disturbance of skin sensation Ordered: 09/20/2021 [facility] Work Phone: Comment on above: Ordered: 09/20/2021 NEURO QSART NEURO QSART Proc edures Routine Orthostatic lightheadedness Ordered: 06/27/2022 [facility] Work Phone: Comment on above: Ordered: 06/27/2022 Patient Education Essential Tremor [facility] Work Phone: Patient referral [facility] Work Phone: End: 02-10-2023 Polysomnogram POLYSOMNOGRAM (PSG) Procedures Routine Somnambulism Somniloquy 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, sleep walking type 1 Occurrences starting 02/10/2022 until 02/10/2023 [facility] Work Phone: Comment on above: 1 Occurrences starti ng 02/10/2022 until 02/10/2023 Prolactin [Mass/volu me] in Serum or Plasma [facility] Work Phone: SARS-CoV-2 (COVID-19 ) RNA [Presence] in Respiratory specimen by JEAN with probe detection SELF CHECK COVID Microbiology Routine Convulsions, unspecified convulsion type (HCC) Ordered: 07/03/2022 [facility] Work Phone: Comment on above: Ordered: 07/03/2022 SKIN BIOPSY FOR NEUROPATHY/CNL SKIN BIOPSY FOR NEUROPATHY/CNL Procedures Routine Disturbance of skin sensation Ordered: 09/20/2021 [facility] Work Phone: Comment on above: Ordered: 09/20/2021 SPEECH PLAN OF CARE CERTIFICATION SPEECH PLAN OF CARE CERTIFICATION Procedures Routine Functional neurological symptom disorder with weakness or paralysis Other speech disturbance Cognitive communication deficit Ordered: 10/19/2022 [facility] Work Phone: Comment on above: Ordered: 10/19/2022 [facility] c [facility] c [facility] c [facility] c [facility] c [facility] c [facility] c [facility] c [facility] c [facility] c [facility] Immunizations Immunization Date Immunization Notes Care Provider Nely myrick 08-04-2009 pneumococcal polysaccharide vaccine, 23 hermila Kiser MD, PhD Work Phone: [facility] NEGATED: Highlighted row has not occurred!01-23-2019 influenza virus vaccine, unspecified formulation Lizy SORIA [facility] Jun Payers Date Payer Category Payer Medicaid [employer] [facility] MEDICAID [id number] 2013-Present [phone] [address] [place] [address] Medicaid [id number] 2013 Medicaid [id number] 2013 Unknown [id number] 1985 Unknown [id number] 1985 Unknown [id number] 1985 Unknown [id number] 1985 Unknown [id number] 1985 Unknown [id number] 1985 Unknown [id number] 1985 Unknown [id number] 1985 Unknown [id number] 1985 Unknown [id number] 1985 Unknown [id number] 1985 Unknown [id number] 1985 Unknown [id number] 1959 Medicaid [id number] Self-pay Self Pay [id number] Unknown [employer] [phone] [id number] Social History Date Type Detail Facility Start: 02-09-2015 End: 11-22-2022 Tobacco smoking status NHIS Ex-smoker [facility] Start: 08-04-2021 End: 12-21-2015 History of tobacco use Current smoker [facility] End: 12-21-2015 History of tobacco use Cigarette Smoker [facility] Start: 02-09-2015 End: 06-27-2022 Cigarettes smoked current (pack per day) - Reported 0.5 [facility] Start: 02-09-2015 End: 11-22-2022 Tobacco use and exposure Smokeless tobacco non-user [facility] Start: 04-25-2021 End: 10-16-2022 Alcohol intake Current non-drinker of alcohol (finding) [facility] Start: 1985 Sex Assigned At Female [facility] Start: 04-18-2021 End: 07-14-2022 Exposure to SARS-CoV-2 (event) Not sure [facility] Tobacco smoking status Never [facility] Start: 06-27-2022 End: 08-10-2022 Sex Assigned At Female [facility] Other Start: 11-11-2019 Gender identity Identifies as female gender (finding) [facility] Start: 11-22-2022 End: 12-13-2022 Alcohol intake Current drinker of alcohol (finding) [facility] Start: 11-22-2022 Alcohol Comment less than 1 dr ink per week [facility] Functional Status Date Assessment Result Facility 07-25-2022 Functional Status N/A [facility] 04-17-2022 Functional Status N/A [facility] 01-02-2022 Functional Status N/A [facility] 12-29-2021 Functional Status N/A [facility] Clinical Notes 07-19-2016 to 03-07-2023 Patient InstructionsJenny South, DIRECTOR OF CORPORATE SALES.INTER COM SERVICER - 01/23/2023 2:03 PM ESTPatient InstructionsAntoine Costa MD - 01/22/2023 2:45 PM Moreno Alcantara PSYD - 01/04/2023 1:58 PM ESTPatient Instructions Note Date & Type Note Facility 03-07-2023 Note [facility] 02-05-2023 Note [facility] 02-05-2023 Note [facility] 02-01-2023 Instructions Jenny South APRN.INTER COM SERVICER - 02/01/2023 10:51 AM EST - Gammagard 25 g IV weekly - Stop D5W - Start NS 1L before and after IVIG infusion - Continue follow up with neurology - Follow up in 6-12 months, or sooner if needed documented in this encounter [facility] 01-23-2023 Note [facility] 01-23-2023 History of Present illness Narrative VIRTUAL VISIT PROGRESS NOTE This is a virtual visit using [employer] Zoom Video Visit. It required patient-provider interaction for the medical decision making as documented below. I have communicated my name and active licensure. The patient's identity and physical location were verified at the time of this visit. Either the patient or their legal underwriting service representative has been informed of the risks [...] for disability (D83.9) CVID (common variable immunodeficiency) ([facility]) (primary encounter diagnosis) Comment: on IVIG. No [...] which included preparing to see the patient, pmvz-ky-okdm patient care, completing clinical documentation, obtaining and/or reviewing separately obtained history, performing a medically appropriate examination, counseling and educating the patient/family/caregiver, and ordering medications, tests, or procedures Jenny South APRN.INTER COM SERVICER Allergy & Clinical Immunology documented in this encounter [facility] 01-22-2023 Note [facility] 01-22-2023 Instructions Antoine Costa MD - 01/22/2023 [...] the main Behavioral Health scheduling line at [phone] or the [facility] office at [phone] if you need to cancel or reschedule. My schedule is not available for Identiv scheduling. Please be aware of the following [...] non-urgent questions you may contact us via Sentons or by calling [phone]. Responses will be via Identiv or a return call from my office [...] Refill requests Refills can be requested through Identiv or by calling [phone]. Refills may not be approved if you are overdue for a follow-up visit or there is no upcoming appointment scheduled. documented in this encounter [facility] 01-22-2023 History of Present illness Narrative [...] courts. She has tried other resources like Tiny Prints, Interval Progress: Same Risks and benefits of [...] visit. Either the patient or their legal underwriting service representative has been informed of the risks and benefits of -- and alternatives to -- treatment through a remote evaluation and consents to proceed with the evaluation remotely. I spent a total of 45 minutes on the date of the service which included preparing to see the patient, fvqz-mo-nvxy patient care, completing clinical documentation, and counseling [...] 2023 2:53 PM documented in this encounter [facility] 01-04-2023 Note [facility] 01-04-2023 History of Present illness Narrative [facility] Psychology Progress Note Billing codes: Siobhan PSYCHOLOGY: FOLLOW-UP APPOINTMENT PROGRESS NOTE- Virtual Visit I have communicated my name and active licensure. The patient's identity and physical location were verified at the time of this visit. Either the patient or their legal underwriting service representative has been informed of the risks and benefits of -- and alternatives to -- treatment through a remote evaluation and consents to proceed with the evaluation remotely. Ben Barr 01/04/2023 [id number] PROVIDER: Moreno Fernandez PSYD CPT Code: Virtual [...] Moreno Fernandez Psy.D. Staff, [facility] documented in this encounter [facility] 12-13-2022 Note [facility] 12-06-2022 Note HNO ID: [id number] Author: Phan Starks APRN.SCADA OPERATOR Service: ? 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 Past medical history, past surgical history, social history and family history reviewed and updated in Transactis. ALLERGIES Allergen Reactions Antidepressants [Se* Other: See [...] TIME: 8:46 AM documented in this encounter [facility] 11-22-2022 Instructions Fe Brown PA-Lara - 11/22/2022 3:20 PM EDT PATIENT PREOPERATIVE INSTRUCTIONS Becka Rubi DO has scheduled you for your procedure at this surgery center: [facility]: [phone] -- [place] [address]. Please read below carefully for your personalized [...] Procedures: - YOU MUST HAVE A RESPONSIBLE TRANSPORTATION BROKER TAKE YOU HOME. A GEOLOGICAL TECHNICIAN OR FIELD ARTILLERY OPERATIONS SPECIALIST CANNOT BE MADE A RESPONSIBLE TRANSPORTATION BROKER. - We recommend that a responsible person [...] Advance Directive, please fax a copy to [phone] or email to for it to be [...] and scanned into your chart that day. eF Brown PA-C documented in this encounter [facility] 11-22-2022 History and physical note PREANESTHESIA CONSULT CLINIC TELEHEALTH VISIT Patient has been identified by name and date of : Yes This is a virtual visit using Be Hereom Video Visit. It require patient-provider interaction for [...] fevers. Neuro: No history of TIA's, stroke, INTER COM SERVICER tumor, impaired sensorium, hemiplegia, paraplegia or quadraplegia. [...] requiring medication, no history of angina, CHF, ME, cardiac surgery or stents. Denies rest pain, [...] of dysuria, frequency or incontinence, stones +CKD COURT DEPUTY: Negative for abnormal vaginal bleeding, abnormal vaginal [...] imaging Most recent EKG from 2016 in [facility]: Diagnosis:NORMAL SINUS RHYTHM POSSIBLE LATERAL MYOCARDIAL INFARCTION , AGE UNDETERMINED ABNORMAL ECG Impression/Recommendations ASSESSMENT: Depression Assessment: managed with Buspar PTSD (post-traumatic stress disorder) Assessment: managed with Buspar Follows with psychiatry POTS (postural orthostatic tachycardia syndrome) Assessment: managed with sodium chloride Follows with neuro- last visit with Saroj Foss APRN.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 I spent more than 21-40 minutes aksn-nf-bsbh with the patient and over half the time was devoted to counseling and/or coordination of care. This is a virtual visit. It required patient-provider interaction for the medical decision making as documented above. SIGNATURE: Fe Brown PA-C PATIENT NAME: Ben Barr DATE: November 22, 2022 TIME: 2:44 PM PAGER/CONTACT #: documented in this encounter [facility] 11-16-2022 Note [facility] 11-16-2022 Note [facility] 2022 Note [facility] 2022 History of Present illness Narrative Images from the original note were not included. [facility] for General Neurology Established Patient Virtual Visit Chief Complaint/Issues: Ben Barr is a 36 year old handed right-handed female seen via virtual visit for: Follow up Hypotension This is a virtual visit using Dnevnik Video Visit. It required patient-provider interaction for the medical decision making as documented below. I have communicated my name and active licensure. The patient's identity and physical location were verified at the time of this visit. Either the patient or their legal underwriting service representative has been informed of the risks [...] syndrome. Seen by Dr. Perry in the [facility] who agreed FND most likely. At most [...] nature. The patient was referred to the [facility] at discharge for follow up with her Stiffman Syndrome diagnosis and was discharged in stable condition. Seen by [facility], Dr. Perry, 08/10/2021: This is a 36 [...] move forward with SPS panel testing with [place] but I think that diagnosis is less likely. 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 We discussed the diagnosis along with the pathophysiology and treatment. I will reach out to Dr. Noyola for further input while we start a rehabilitation program focused on that disorder. If her [place] SPS panel is unrevealing I would defer [...] & Plan 2022 - Neuromuscular, Saroj Foss, JOHANNA.OVERLOCK SEWING MACHINE OPERATOR ASSESSMENT Ben Barr is a 36 year [...] syndrome. Seen by Dr. Perry in the [facility] who agreed FND most likely. She was seen by Dr. Lackey in movement disorders and diagnosed with FND with functional weakness / paralysis. She reports she is working to find a local trauma counselor. She is starting PT locally as well. She reports she has been started on scheduled diazepam 5 mg BID by her local PCP. We discuss the nursing home risks of benzodiazepine use / withdrawal. She [...] which included preparing to see the patient, ajvs-ve-mure patient care, completing clinical documentation, obtaining and/or reviewing separately obtained history, counseling and educating the patient/family/caregiver, and ordering medications, tests, or procedures. Saroj Foss APRN.[facility] General Neurology [address] [place]. [address] Appointment: [phone] During our virtual clinical encounter we discussed [...] your PCP/referring physician documented in this encounter [facility] 10-27-2022 Miscellaneous Notes Lissette with [facility] called in looking to Clarify the increase on the dose to 25 g. For the Gammagard. Advise it does states to increase from 20 g to 25 g Weekly. Attention: Lissette Rubio Faxed over most recent clinical notes to [facility]. Fax OK on 10/27/2022 at 11:09 am documented in this encounter [facility] 10-25-2022 Miscellaneous Notes Fax over the Faxed Prescription to [facility]. Uploaded into Kontiki, Please allow time for upload. documented in this encounter [facility] 10-20-2022 Miscellaneous Notes Fax over the prescription to [facility]. Medication:Gammagard Liquid Uploaded into [employer]atch[employer]. Please allow time for upload documented in this encounter [facility] 10-19-2022 Miscellaneous Notes Forwarded FND resources and treatment strategies. Bernarda Hernandez PT documented in this encounter [facility] 10-18-2022 Note [facility] 10-18-2022 Note [facility] 10-18-2022 Instructions Muna Lackey MD - 10/18/2022 3:07 PM EDT [email or web address] documented in this encounter [facility] 10-18-2022 History of Present illness Narrative [facility] Clinical Health Psychology Evaluation Time of Service: 3:00 pm to 4:00 pm CPT Code: 26268 - psychodiagnostic evaluation Billing Code: Hasnishabnam The [...] Social History: Ms. Barr was raised in [place], [place] as the eldest of 3 children. [...] Moreno Fernandez Psy.D. Staff, [facility] documented in this encounter [facility] 10-18-2022 History of Present illness Narrative [facility] - FOLLOW UP EVALUATION Lizy Soria DO [address] [address] Dear Lizy Soria DO: I had the [...] Patellar 2+ 2+ Achilles 2+ 2+ Coordination Dieqqy-ac-ftvd, rapid alternating movements and gbkw-vm-oyry normal bilaterally without dysmetria. Movement Disorders Scales [...] or around: 01/18/23 Level of service : 73162 (40-54 min). Time spent 54 min on the day of service, which included preparing to see the patient, msmy-wq-wjie patient care, completing clinical documentation, obtaining and/or [...] Muna Lackey MD documented in this encounter [facility] 10-18-2022 Note [facility] 10-18-2022 Note [facility] 10-18-2022 History of Present illness Narrative [...] to this location or possibly another closer [facility] location with FND specific physical therapy. [...] Planned: 1 Planned Treatment Interventions: Neuromuscular re-education (32110), Gait Training (62481), Patient/Family/Caregiver Education Patient demonstrates good understanding of [...] Bernarda Hernandez PT documented in this encounter [facility] 10-18-2022 Note [facility] 10-18-2022 History of Present illness Narrative [facility] SPEECH LANGUAGE PATHOLOGY CONSULT SPEECH-LANGUAGE EVALUATION October 18, 2022 PLAN OF CARE UPDATE: Name: Ben Barr : October 18, 2022 CC#: [id number] Referring physician: Bebeto Perry Date of Onset: [...] therapy closer to home. Saroj Booker M.S. [facility]-PROCESS CONTROLLER Clinical Speech Pathologist Pager: [phone] Voicemail: [phone] DIAGNOSIS/HISTORY: Ben Barr is a 36 year old female referred by Bebeto Perry for evaluation and treatment of speech-language and cognitive communication skills. Accompanied by her . Lives in [place] (near [place]). No prior speech therapy. PAST MEDICAL HISTORY [...] HISTORY: Highschool graduate and Associate's degree in [employer] studies in 2017. 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 Always had trouble concentrating in school. School [...] web link, Cognitive-communication strategies. Saroj Booker M.S., CCC-PROCESS CONTROLLER Clinical Speech Pathologist Pager: [phone] Voicemail: [phone] documented in this encounter [facility] 10-18-2022 History of Present illness Narrative Episode Visit Count: 1 Therapist That Will Accept/Oversee The Plan Of Care: Isabella Amato Start of Care Date: 10/18/22 Onset Date: 10/18/22 Plan of Care Certification Date: 10/18/22 Next Certification Due Date: 12/17/22 Patient Identified by Name and Date of : Yes [facility] REHABILITATION AND SPORTS THERAPY OCCUPATIONAL THERAPY EVALUATION [...] 12/18/22 Patient will complete HEP at Modified [place] level. Patient will decrease pain rating by [...] Planned: 8 Planned Treatment Interventions: Therapeutic exercise (55193), Therapeutic activities (23937), Manual therapy (14671), Neuromuscular re-education (39404), Self-residential management (75748), Sensory Integration (05211), Physical performance test, Functional training, Group Therapy (15094), Patient/Family/Caregiver Education PLAN FOR NEXT VISIT: FND [...] Isabella Amato OT/Tonya documented in this encounter [facility] 10-16-2022 Note [facility] 10-16-2022 History of Present illness Narrative I had the pleasure of seeing Ms. Barr in the Allergy & Immunology Clinic at the [facility] for follow up of CVID Last [...] Kiser MD PhD documented in this encounter [facility] 10-05-2022 Note [facility] 10-05-2022 History of Present illness Narrative Images from the original note were not included. [employer] Test Report - [id number] Test start date: 09/25/2022 10:58 AM Construction Area Manager: lobo Interpretation date: 10/05/2022 Ordering physician: Frederic Douglass DO Referring physician: Patient Information Name: Ben Barr. ID: [id number] date: 1985 Height ft. in.: 5' 1 [...] Douglass___ Date _10/05/2022 documented in this encounter [facility] 09-25-2022 Note [facility] 09-25-2022 History of Present illness Narrative Referring [...] complete. You will be wearing a Data Dispatch Specialist around your neck like a necklace during the test. You must keep this near you at all times. The Data Dispatch Specialist has an EVENT button. You will be [...] is inside your body. Return the Data Dispatch Specialist to the [facility] after your test is completed. Amirha Ma RN documented in this encounter [facility] 09-14-2022 Miscellaneous Notes Telephoned patient with [...] during the procedure. This includes prescription and gwzy-dzq-buxzyhg medications including Amitiza, Miralax, Linzess, Trulance, Motegrity, [...] the Test: You must wear a Data Dispatch Specialist on your body at all times during the test. The Data Dispatch Specialist has an EVENT button. You will be [...] is inside your body. Return the Data Dispatch Specialist to the [facility] after your test is completed. Testing could last up to 5 days. Please call me if you have any questions/concerns. Amirah Ma RN, Capsule Endoscopy Nurse [phone] [place] [place] [id number] documented in this encounter [facility] 09-05-2022 Note [facility] 09-05-2022 History of Present illness Narrative [facility] NEUR[facility]ICAL [facility] EPILEPSY [facility] Patient Name: Ben Barr Date of : 1985 ESTABLISHED EPILEPSY CLINIC NOTE 09/05/2022 10:30 AM Reason for Visit: Follow Up (EMU follow up, non-epileptic diagnosis ) Clinical Summary: Ms. Barr is a 36 year old right-handed female seen in [facility] Epilepsy Center. We had a visit using: Vadio I received consent from the patient to perform the visit using this platform. There is no one accompanying the patient during today's visit. I have communicated my name and active licensure. The patient's identity and physical location were verified at the time of this visit. Either the patient or their legal underwriting service representative has been informed of the risks [...] Have continued after discharge. She saw the [facility] and after testing determined she does not [...] IVIG started. 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 She lives with her and two children. [...] a 24-hour period? - - - - AelurosIS Sleep Disturbance T-SCORE - - - - Have you been diagnosed with Sleep Apnea? - - - - Seizure risk factors: Brain Tumor Unanswered INTER COM SERVICER Infections Unanswered Developmental Delay Unanswered Family history of seizures Unanswered Febrile Seizure Unanswered Complications Unanswered Stroke Unanswered Traumatic Brain Injury Unanswered Previous Epilepsy Evaluations Video EE/26-07/16/2022 Ben Barr is a 36 year old female who presented to the [facility] on 07/14/2022 for diagnosis. Medications were [...] nature. The patient was referred to the [facility] at discharge for follow up with her [...] Maternal Uncle hypothyroid SOCIAL HISTORY: -Lives in [place], [place] -Patient lives alone? No -Functional status: [...] time she has followed up with the [facility], being diagnosed with functional movement disorder. She has a treatment team starting within the next 6 weeks. She notes Valium BID dosing has helped her muscles and these events stop. PLAN: - Follow up with treatment as outlined by [facility] for functional movement disorder - No need [...] which included: preparing to see the patient grlu-so-ncep patient care completing clinical documentation Courtney Randhawa PA-C cc: Primary Care Physician: Lizy Soria DO [address] [facility] [address] [place] [id number] documented in this encounter [facility] 08-24-2022 Note HNO ID: [id number] Author: Bebeto Perry MD Service: ? Author Type: Physician Type: Progress Notes Filed: 08/24/2022 2:26 PM Note Text: [facility] 08-24-2022 History of Present illness Narrative Images from the original note were not included. documented in this encounter [facility] 08-10-2022 Note Stiff-Person Spectru m Disorders Evaluation [facility] Comment on above: Order Comment: Speci men Type: BLOOD SPECIMENOrdering Facility: [facility] Address: [address], [place] [address] Performed By: #### M ISC1 ####NON-INTERFACED REF LABSCLIA SEE SCANNED RESULTS 08-10-2022 Note [facility] 08-10-2022 Instructions Bebeto Perry MD - 08/10/2022 [...] experts: Functional Movement Disorders: Diagnosis & Management [email or web address] The FMD clinic is managed w/ [facility] (movement disorders). For Appointments call [phone] documented in this encounter [facility] 08-10-2022 History of Present illness Narrative Images from the original note were not included. [facility] NEW PATIENT EVALUATION/CONSULTATION Referral source: Vesta Mares [address] [facility] [address] Also followed by: Patient Care Team: Lizy Soria DO as PCP - General (Family Medicine) Kathryn Gutierrez, RN as Specialty Surveillance Analyst (Hematology) PRINCIPAL NEUROLOGIC DIAGNOSIS: SPS evaluation; functional [...] expected to be with me at the [facility]. She was seen by Dr Daisy black [...] Flowsheet Row Office Visit from 08/10/2022 in [facility] Upper Extremity Domain T Score 38 Lower Extremity Domain T Score 38 Cognitive Function Domain T Score 31 Positive Affect Well Being T Score -- Ability To Participate In Social Roles T Score 42 Satisfaction With Social Roles T Score 38 Neuro-QoL Symptoms (higher=worse symptoms) Flowsheet Row Office Visit from 08/10/2022 in [facility] Sleep Domain T Score -- Fatigue Domain [...] move forward with SPS panel testing with [place] but I think that diagnosis is less likely. 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 We discussed the diagnosis along with the pathophysiology and treatment. I will reach out to Dr. Noyola for further input while we start a rehabilitation program focused on that disorder. If her [place] SPS panel is unrevealing I would defer further work-up and treatment for SPS. Office Visit on 08/10/22 [facility] [place] 1 CONSULT TO [facility] CONSULT TO AIRCRAFT SYSTEMS REPAIRER CONSULT TO PHYSICAL THERAPY CONSULT TO SPEECH THERAPY CONSULT TO FUNCTIONAL MOVEMENT DISORDERS (FMD) FOLLOW UP APPOINTMENT AMBULATORY CONSULT TO PSYCHOLOGY I spent a total of 90 minutes on the date of the service, over half in counseling and educating the patient/family/caregiver, along with time spent preparing to see the patient, injr-py-gpif patient care, completing clinical documentation, performing a medically appropriate examination, and ordering medications, tests, or procedures. Bebeto Perry Staff Neurologist [facility] for Multiple Sclerosis documented in this encounter [facility] 07-25-2022 Note [facility] 07-25-2022 Miscellaneous Notes Frederic maloney [facility] called in stating that patient has been missing doses of IVIG due to the insurance denying the Prior Authorization. documented in this encounter [facility] 07-24-2022 Miscellaneous Notes PATIENT INFORMATION Record ID: [id number] Patient Name: [facility]: [facility] [place]: Neurological [place] Attending: Aakash Alvarado Center: Sleep Disorders INSTRUCTIONS MA to remind patient of next upcoming appointment date, time, location All Clear All Clear SURVEY INFORMATION Medical/Nurse Senior Reservoir Engineer: Antoine Villegas 1. Your discharge instructions are [...] (Standard Question) No documented in this encounter [facility] 07-16-2022 Note [facility] 07-15-2022 Note [facility] 07-14-2022 Note HNO ID: [id number] Author: Brooklyn Gandhi RN Service: Nursing Author Type: Registered Nurse Type: Nursing Progress Note Filed: 07/14/2022 1:53 PM Note Text: Pt arrived safely to h71. Pt oriented to room, call light, and sz button. Will CTM. [facility] 07-14-2022 Note [facility] 07-11-2022 Miscellaneous Notes Forwarded to EMU scheduling team. Alecia Nguyen RN Message forwarded to epilepsy team for review. Received from [facility] approval for Overnight Brainwave Study (EEG) via fax. Approve from 07/14/22 through 07/19/22. 4 pages indexed to chart. documented in this encounter [facility] 07-03-2022 Note [facility] 07-03-2022 Note [facility] 07-03-2022 History of Present illness Narrative ======= Please route this encounter to the EMU Scheduling Pool ( P EMU ) or PMU Scheduling Pool ( P PMU ) through LOS & Follow up ======= PHASE 1.0 AND 1.5 ORDER SYNOPSIS Patient: Ben Barr ([id number]) Best contact number: [phone] Insurance: Payor: [facility] MEDICAID / Plan: [facility] MEDICAID / Product Type: Medicaid / ---- Scheduling Team: Please call for adult patients: Melanie Le ([phone]) Aline Lima ([phone]) Valeria Prakash([phone]) Sharon Rivera([phone]) Please call for pediatric patients: Aline Lima ([phone]) Valeria Prakash ([phone]) Melanie Le ([phone]) Sharon Rivera([phone]) ---- 07/03/2022 Admission Type EMU Adult Number of Days requested [address] [place] [address] Admit Priority Routine PURPOSE 07/03/2022 Patient Being [...] off/on office visits. documented in this encounter [facility] 07-03-2022 Note [facility] 07-03-2022 History of Present illness Narrative Images from the original note were not included. Chief Complaint: muscle weakness HISTORY OF PRESENT ILLNESS: Ms. Ben Barr is a 36 year old right handed female presented to the Neuromuscular Center at [facility] for an initial evaluation. Patient comes [...] been positive. She was seen by Dr Lantiuga from rheumatology in 2009 and there was [...] abuse. No history of substance abuse. 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 No ataxia on zzkprk-hg-amjh and iizn-ig-pydq testing. Gait: Romberg negative. Heel walking: able [...] the date of the service which included whao-xv-qgrq patient care, completing clinical documentation, obtaining and/or reviewing separately obtained history, performing a medically appropriate examination, counseling and educating the patient/family/caregiver, and ordering medications, tests, or procedures. All questions answered. Written instructions provided. Kim Rogers M.D., Ph.D. Staff Physician [facility] [address] [place] [address] CC: Saroj Foss [facility] [address] Lizy Soria DO [address] [place] [address] documented in this encounter [facility] 06-30-2022 Hospital Discharge instructions Follow Up Care 06/30/2022 08:13:11 With:Lizy SORIA DO, FAM Address: [address] [place] [address]- When:Within 3 Month(s) [facility] [place] 06-29-2022 Miscellaneous Notes Fax over the prescription and most recent clinical notes to [facility]. Uploaded prescription into [employer] docs. Please allow time for upload. documented in this encounter [facility] 06-27-2022 Note [facility] 06-27-2022 Instructions Saroj Foss APRN.OVERLOCK SEWING MACHINE OPERATOR - 06/27/2022 4:56 PM EDT Plan: 1) EEG 2) Consult to epilepsy 3) No driving until seen by epilepsy 4) Reordered: -Autonomic reflex with tilt -QSART 5) Consult to neuromuscular medicine PHYSICIAN only documented in this encounter [facility] 06-27-2022 History of Present illness Narrative Images from the original note were not included. [facility] General Neurology Follow-Up/Established Patient Visit Chief Complaint/Issues: Ben Barr is a 36 year old handed right-handed female seen in the [facility] for General Neurology for: Follow up [...] 0.3 - 9.2 umol/mmolCr 2.2 1.6 7.6 1-Srv-Nxifoxc, Urine 0.4 - 3.1 umol/mmolCr 1.6 0.9 [...] Flexion 5/5 5/5 Finger Abduction 5/5 5/5 Weatherization Operations Manager 4/5 bilaterally Hip Flexion 4+/5 4+/5 Hip Adduction 5/5 5/5 Hip Abduction 5/5 5/5 Knee Flexion 5/5 5/5 Knee Extension 4+/5 4+/5 Ankle Dorsiflexion 5/5 5/5 Ankle Plantarflexion 5/5 5/5 Movement/Coordination Finger-to- nose-finger and rgbd-jq-xshw intact bilaterally. No evidence of ataxia arms. [...] which included preparing to see the patient, hruc-ah-lsuo patient care, completing clinical documentation, obtaining and/or reviewing separately obtained history, performing a medically appropriate examination, counseling and educating the patient/family/caregiver, and ordering medications, tests, or procedures. Saroj Foss APRN.[facility] General Neurology [address] [place]. [address] Appointment: [phone] During our face to face clinical encounter [...] your PCP/referring physician documented in this encounter [facility] 06-27-2022 Note [facility] 06-27-2022 History of Present illness Narrative VIRTUAL VISIT PROGRESS NOTE This is a virtual visit. It required patient-provider interaction for the medical decision making as documented below. I have communicated my name and active licensure. The patient's identity and physical location were verified at the time of this visit. Either the patient or their legal underwriting service representative has been informed of the risks and benefits of -- and alternatives to -- treatment through a remote evaluation and consents to proceed with the evaluation remotely. I had the pleasure of seeing Ms. Barr in the Allergy & Immunology Clinic at the [facility] for follow up of CVID Last [...] now F/U:4 months documented in this encounter [facility] 06-19-2022 Note [facility] 06-19-2022 History of Present illness Narrative *Note: [...] Unable to Reach documented in this encounter [facility] 06-12-2022 Miscellaneous Notes Last OV: 03/10/22 Last Refill: 03/10/22 FU OV: 12/07/22 Appropriate for refill routed to for review Alis Last RN documented in this encounter [facility] 06-09-2022 Note [facility] 06-09-2022 History of Present illness Narrative FOLLOW UP VIRTUAL VISIT IVIG THERAPY Initial visit I have communicated my name and active licensure. The patient's identity and physical location were verified at the time of this visit. Either the patient or their legal underwriting service representative has been informed of the risks [...] 20 mL IRRIGATION ONE TIME Saroj Foss, DIRECTOR OF CORPORATE SALES.OVERLOCK SEWING MACHINE OPERATOR ALLERGIES Allergen Reactions Antidepressants [Se* Other: See [...] no edema RESPIRATORY: No dyspnea : neg COURT DEPUTY: neg The remainder of the review of [...] Douglass DO 06/09/2022 documented in this encounter [facility] 05-11-2022 Miscellaneous Notes DO Edwina Roblero Ddsi Clinical Pool Need to see her to discuss the labs documented in this encounter [facility] 04-17-2022 Hospital Discharge instructions Follow Up Care 04/17/2022 11:47:49 With:Lizy SORIA DO, FAM Address: [address] [place] [address]- When:Within 6 Month(s) [facility] 04-17-2022 Miscellaneous Notes Called and spoke with the patient and she stated that her Wallisian pool head butted her on Sunday. Patient stated that her stomach grew in size the next day and she has been vomiting and not able to eat. Patient stated that she also reached out to her primary care to be seen. I spoke with rn discharge nurse who advised that patient needs to go to the emergency room. I called back to the patient and made her aware that she needs to be seen in the emergency room for evaluation. documented in this encounter [facility] 04-13-2022 Miscellaneous Notes Last OV: 03/10/22 Last Refill: 02/15/22 FU OV: 08/25/22 Appropriate for refill routed to for review as ES KATELIN Alis Last RN documented in this encounter [facility] 04-13-2022 Note HNO ID: [id number] Author: Tiana Triana, RT(R) Service: Radiology Author [...] RT Misty(R) April 13, 2022 11:08 AM [facility] 04-13-2022 Note [facility] 04-13-2022 History of Present illness Narrative Radiology [...] 2022 11:08 AM documented in this encounter [facility] 04-13-2022 Note [facility] 04-13-2022 History of Present illness Narrative Images from the original note were not included. [facility] [place] Gastroparesis/Dysmotility Consultation SERVICE DATE: 04/13/2022 SERVICE TIME: 9:51 AM PRIMARY CARE PHYSICIAN: DO Nilam Chambers [facility] [address] [facility] [address] My final recommendations will be communicated back [...] was obtained. 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 No history of symptoms or problems. COURT DEPUTY: Negative for abnormal vaginal bleeding, abnormal vaginal [...] 4 - Moderate documented in this encounter [facility] 04-13-2022 Nurse Note What is the reason for your visit today? Gp consult Who is your referring physician? Lizy soria Are you having poor oral intake? NO Have you had unintentional weight loss of 15 lbs/7 Kg in the last 3-6 months? NO Bowels: regular Wound: clean & dry Temperature: No Drains: No documented in this encounter [facility] 04-13-2022 History of Present illness Narrative [...] Medications - Does the patient see a film painter for chronic abdominal pain?No - Is the [...] - Has the patient met with a plumbing mechanic for diet recommendations with Gastroparesis? No - [...] 20 mL IRRIGATION ONE TIME Saroj Foss APRN.OVERLOCK SEWING MACHINE OPERATOR ALLERGIES Allergen Reactions Antidepressants [Se* Other: See [...] No history of dysuria, frequency or incontinence COURT DEPUTY: Negative for abnormal vaginal bleeding, abnormal vaginal [...] colectomy Z90.49 XR ABDOMEN 1V SUPINE ADULT [place] ANORECTAL MANOMETRY 3. Chronic idiopathic constipation K59.04 XR ABDOMEN 1V SUPINE ADULT [place] ANORECTAL MANOMETRY Frederic Douglass DO 04/12/2022 documented in this encounter [facility] 04-12-2022 Miscellaneous Notes SPECIALTY CARE COORDINATION [...] April 12, 2022 documented in this encounter [facility] 04-11-2022 Note [facility] 04-11-2022 History of Present illness Narrative UNIVERSAL [...] Tech Beth Mccullough MD Staff, Neuromuscular Center [facility] Neurological [place] Electronically signed April 11, 2022 3:04 PM documented in this encounter [facility] 03-28-2022 Note [facility] 03-28-2022 History of Present illness Narrative VIRTUAL VISIT PROGRESS NOTE This is a virtual visit. It required patient-provider interaction for the medical decision making as documented below. I had the pleasure of seeing Ms. Barr in the Allergy & Immunology Clinic at the [facility] for follow up of CVID Last [...] month F/U:1 months documented in this encounter [facility] 03-13-2022 Miscellaneous Notes Discontinued on 03/10/22 as course complete. Request refused. Alis Last RN documented in this encounter [facility] 03-10-2022 Note [facility] 03-10-2022 Instructions Saroj Foss APRN.OVERLOCK SEWING MACHINE OPERATOR - 03/10/2022 12:04 PM EST 1) Need [...] in 1 month documented in this encounter [facility] 03-10-2022 History of Present illness Narrative Images from the original note were not included. [facility] for General Neurology Follow-Up/Established Patient Visit Chief Complaint/Issues: Ben Barr is a 36 year old handed right-handed female seen in the [facility] for General Neurology for: Follow up [...] foreseeable future. Today: She was hospitalized at [facility] after seeing hematology here, due to abnormal [...] by hematology who recommended follow up with chief catalyst operator as OP .She was seen by GI [...] Plantarflexion 5/5 5/5 Movement/Coordination Finger-to- nose-finger and wjtj-is-fgrt intact bilaterally. No evidence of ataxia arms. [...] Plan 03/10/2022 - General Neurology, Saroj Foss, DIRECTOR OF CORPORATE SALES.OVERLOCK SEWING MACHINE OPERATOR ASSESSMENT Ben Barr is a 35 year [...] which included preparing to see the patient, jmth-ah-fsyw patient care, completing clinical documentation, obtaining and/or reviewing separately obtained history, performing a medically appropriate examination, counseling and educating the patient/family/caregiver, and ordering medications, tests, or procedures. Saroj Foss APRN.[facility] General Neurology [address] [place]. [address] Appointment: [phone] During our face to face clinical encounter [...] your PCP/referring physician documented in this encounter [facility] 03-08-2022 History of Present illness Narrative Follow-up CVI D, on IV IgG. She has not seen ciuy-au-joeo Dr. Kiser recently. She was in the [...] about making sure he actually sees her myxl-fp-srki and not a video visit next time. I will send her downstairs today to get EBV quantification by PCR CPK CMP and CBC differential platelet Dr. Reece Sarmiento documented in this encounter [facility] 03-08-2022 Nurse Note Clinical questionnaires incomplete [...] No Does patient want to see a Cafe Operator? No (yes to any of above refer patient to schedulers for dietitian appointment) ) Does patient have any new or increased numbness or tingling of extremities? No Is patient interested in fertility information? No Does patient need any prescription refills? No Does patient have an advanced directive in place? Yes, copies are in [employer] documented in this encounter [facility] 03-08-2022 Miscellaneous Notes Images from the original note were not included. Received a fax from [employer] Department with a notice: Uploaded into [employer]. documented in this encounter [facility] 03-07-2022 History of Present illness Narrative [facility] - FOLLOW UP EVALUATION Lizy Soria DO [address] [facility] [address] [facility] [address] Dear Lizy Soria DO: I had the pleasure of seeing Ms. Barr for follow-up today. As you know she is a 36 year old right-handed female with a history of Tremulousness since 2020. She is seen alone. We had a visit using: Vadio I received consent from the patient to [...] research? Not currently Level of service : 51632 (10-19 min). Time spent 15 min on the day of service, which included preparing to see the patient, ukyh-vc-vnjg patient care, completing clinical documentation, obtaining and/or [...] Associate Staff Movement disorders Center of Neu[facility] documented in this encounter [facility] 02-21-2022 Miscellaneous Notes Dose change to a higher amount. Fax the prescription to [facility] along with the most recent clinical notes. Fax: Fax OK on 02/21/22 at 1:58 pm ---- Uploaded prescription into scan docs. documented in this encounter [facility] 02-15-2022 Miscellaneous Notes Last Refill: 11/23/2021 Last OV: 11/23/2021 F/U OV: 03/01/2022 Appropriate for refill. Routed to for review. Sammi Lawson RN documented in this encounter [facility] 02-10-2022 Instructions Mercedes Swenson DO - [...] lag or switching from a day to night time babysitter, for example) Causes of chronic insomnia include: [...] effective after several weeks of nightly use. Yxgf-yzd-wlktvvf sleeping pills for insomnia should be avoided. [...] use the alarm. documented in this encounter [facility] 02-10-2022 History of Present illness Narrative Images from the original note were not included. [facility] Sleep Disorders Center New Patient Evaluation PATIENT NAME: Ben Barr DATE OF SERVICE: February 10, 2022 CONSULTING PROVIDER: Saroj Foss [address] [place] [address] Visit performed virtually with patient's permission. REASON [...] or near accidents due to drowsy drivin Jud Sleepiness Scale 02/09/2022 Score 4 (No daytime [...] which included preparing to see the patient, sceu-rt-ezfk patient care, completing clinical documentation, obtaining and/or reviewing separately obtained history, performing a medically appropriate examination, counseling and educating the patient/family/caregiver, and ordering medications, tests, or procedures. documented in this encounter [facility] 02-01-2022 Miscellaneous Notes Nurse Pretty with [...] this. Nurse Pretty can be reached at [phone] documented in this encounter [facility] 01-31-2022 Note HNO ID: [id number] Author: Royce Hauser APRN.SCADA OPERATOR Service: ? Author Type: Nurse Air Launch Weapons Technician Type: Anesthesia Procedure Notes Filed: 01/31/2022 2:43 PM Note Text: ANESTHESIOLOGY PROCEDURE NOTE Airway General Information Procedure Start Time/Medication Administration: 01/31/2022 2:37 PM Patient location during procedure: OR Staffing SCADA OPERATOR: Royce Hauser APRN.SCADA OPERATOR Performed by: SCADA OPERATOR Indications and Patient Condition Indications for airway [...] 1 Airway not difficult SIGNATURE: Royce Hauser APRN.SCADA OPERATOR PATIENT NAME: Ben Barr DATE: January 31, 2022 TIME: 2:42 PM CSN: [id number] [facility] 01-31-2022 Miscellaneous Notes Noted pt admitted to hospital. On schedule at [facility] for EGD tomorrow. Call to pt to confirm cancellation, LMTC. documented in this encounter [facility] 01-30-2022 Note HNO ID: [id number] Author: Radha Cooley MD Service: Hospital Medicine Author Type: Physician Type: Progress Notes Filed: 01/30/2022 2:58 PM Note Text: DEPARTMENT OF HOSPITAL MEDICINE PROGRESS NOTE SERVICE DATE: 01/30/2022 SERVICE TIME: 2:51 PM Hospital Medicine/Primary Attending: Radha Cooley MD NIGHT AND WEEKEND COVERAGE: ANTIGO COVERAGE: Days: [phone], please contact via [employer] Nights: [phone] - 3rd floor: please page CC Hospitalist night cover [phone] - 4th floor: please page CC Hospitalist night cover [phone] - 5th floor: please page CC Hospitalist night cover [phone] Subjective INTERVAL HPI: Pt was seen and [...] for intussusception, d (more content not included)... [facility] 01-30-2022 Note HNO ID: [id number] Author: Clif Stallings RT(R) Service: ? Author [...] safety can be found using this link: [email or web address] [email or web address]%20Protection %20-%20Diagnostic%20Nuclear%20Medicine %20Procedures.pdf SIGNATURE: RT Donavon(R) PATIENT NAME: Ben Barr DATE: January 30, 2022 TIME: 8:16 AM PAGER/CONTACT #: [facility] 01-30-2022 History of Present illness Narrative RADIOLOGY [...] safety can be found using this link: [email or web address] [email or web address]%20Protection% 20-%20Diagnostic%20Nuclear%20Medicine% 20Procedures.pdf SIGNATURE: RT Donavon(Bessie) PATIENT NAME: Ben Barr DATE: January 30, 2022 TIME: 8:16 AM PAGER/CONTACT #: documented in this encounter [facility] 01-29-2022 Note HNO ID: [id number] Author: Radha Cooley MD Service: Hospital Medicine Author Type: Physician Type: Progress Notes Filed: 01/29/2022 2:53 PM Note Text: DEPARTMENT OF HOSPITAL MEDICINE PROGRESS NOTE SERVICE DATE: 01/29/2022 SERVICE TIME: 2:48 PM Hospital Medicine/Primary Attending: Radha Cooley MD NIGHT AND WEEKEND COVERAGE: LUCIA COVERAGE: Days: [phone], please contact via [employer] Nights: [phone] - floor: please page Hospitalist night cover [phone] - 4th floor: please page Hospitalist night cover [phone] - 5th floor: please page CC Hospitalist night cover [phone] Subjective INTERVAL HPI: Pt was seen and [...] for intussusception, disc (more content not included)... [facility] 01-29-2022 Note HNO ID: [id number] Author: Evan Baum PA-C Service: Gastroenterology Author Type: Physician Senior Reservoir Engineer Type: Plan of Care Filed: 01/29/2022 2:12 [...] DATE: January 29, 2022 TIME: 2:09 PM [facility] 01-29-2022 Note HNO ID: [id number] Author: Josh Hope DO Service: General Surgery [...] January 29, 2022 TIME: 9:34 AM PAGER: [facility] 01-28-2022 Note HNO ID: [id number] Author: Radha Cooley MD Service: Hospital Medicine Author Type: Physician Type: Progress Notes Filed: 01/28/2022 1:55 PM Note Text: DEPARTMENT OF HOSPITAL MEDICINE PROGRESS NOTE SERVICE DATE: 01/28/2022 SERVICE TIME: 1:42 PM Hospital Medicine/Primary Attending: Radha Cooley MD NIGHT AND WEEKEND COVERAGE: ANTIGO COVERAGE: Days: [phone], please contact via [employer] Nights: [phone] - floor: please page Hospitalist night cover [phone] - 4th floor: please page Hospitalist night cover [phone] - 5th floor: please page Hospitalist night cover [phone] Subjective INTERVAL HPI: Pt was seen and [...] Clears - continue (more content not included)... [facility] 01-28-2022 Note HNO ID: [id number] Author: Josh Hope DO Service: General Surgery [...] January 28, 2022 TIME: 11:04 AM PAGER: [facility] 01-28-2022 Note HNO ID: [id number] Author: RT Marie(R) Service: Radiology Author Type: [...] RT Marie(R) January 28, 2022 9:17 AM [facility] 01-26-2022 Note COVID 19 RESULT: SARS-CoV-2 (Agent of COVID-19) Not Detected by RT-PCR or equivalent method. This test has been authorized by FDA under an Emergency Use Authorization (EUA). INFLUENZA A PCR: Negative for Influenza A by RT-PCR INFLUENZA B PCR: Negative for Influenza B by RT-PCR RSV PCR: Negative for Respiratory Syncytial Virus (RSV) by PCR [facility] Comment on above: Performed By: #### 9 [id number] #### [facility] CLIA [id number] [address] [place], [place] [id number] [place] [address] 01-26-2022 Note HNO ID: [id number] Author: RT Marie(Bessie) Service: Radiology Author Type: [...] RT Marie(R) January 26, 2022 5:47 PM [facility] 01-26-2022 Note HNO ID: [id number] Author: Jena Mccullough RDMS Service: Abstract Author Type: Crane Helper Type: Progress Notes Filed: 01/26/2022 3:56 PM [...] Mccullough RDMS January 26, 2022 3:55 PM [facility] 01-26-2022 Miscellaneous Notes Called [facility] to give report. Dr. Sarmiento sent [...] 2022 10:10 AM documented in this encounter [facility] 01-24-2022 Miscellaneous Notes Called pt and [...] is calling Reece Sarmiento MD today regarding Surveillance Analyst - Other (Motor Boss ) Patient stated when talking to Dr. Sarmiento, he asked her to call Sunday to discuss a plan and how to proceed with GI. Patient is calling to speak to Dr. Sarmiento. Patient has been identified by name and birthdate. Patient can be reached at: [phone] (cell) Norma Jama January 23, 2022 documented in this encounter [facility] 01-19-2022 History of Present illness Narrative [...] was resolved when she went to the [facility]. Since that time she had nausea weakness difficulty raising her legs vomiting cold sweats. She had a GI doctor look in the stomach and she was found to have a bezoar, and was advised to drink Coca-Cola. That was in [place]. She has this pressure sensation in her head and MRI of the brain and cervical spine did not reveal any abnormality at [facility]. She feels like her memory is not as good. She had abdominal surgery in 2005 at [facility] for what sounds like benign polyps [...] and she was on chelation therapy in [place] for a while. In 2005 she also [...] Dr. Reece Sarmiento documented in this encounter [facility] 01-19-2022 Nurse Note Additional intake questions: Has the patient had fever, nausea, vomiting, diarrhea, constipation, fatigue for > 1 week? Yes, nausea, vomiting, fatigue Does the patient have a decreased appetite? Yes Does patient want to see a Cafe Operator? Yes, MD Notified (yes to any of above refer patient to schedulers for dietitian appointment) ) Does patient have any new or increased numbness or tingling of extremities? Yes, BLLE, BL hands Does patient need any prescription refills? No Does patient have an advanced directive in place? Yes, copies are in [facility] documented in this encounter [facility] 01-17-2022 Miscellaneous Notes Left Message to call back to get scheduled with Dr. Sarmiento. Patient was referred by Dr. Alatorre to get patient in to be scheduled. Asked patient to call back and ask for Norma Admin. documented in this encounter [facility] 01-17-2022 History of Present illness Narrative VIRTUAL VISIT PROGRESS NOTE This is a virtual visit. It required patient-provider interaction for the medical decision making as documented below. I had the pleasure of seeing Ms. Barr in the Allergy & Immunology Clinic at the [facility] for follow up of CVID Last [...] Mild Protein-Calorie Malnutrition ([facility]) Attention to Ileostomy ([facility]) Postoperative Pain Postoperative Ileus ([facility]) REVIEW OF SYSTEMS GENERAL: Fatigue HEENT: Negative [...] today. A/P: (D83.9) CVID (common variable immunodeficiency) ([facility]) (primary encounter diagnosis) Comment: No SBIs. 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 Probably CVID related. Will have her see Dr. Sarmiento. May need BM biopsy? F/U:1 month documented in this encounter [facility] 01-04-2022 Note [id number]:127 [facility] 01-03-2022 Miscellaneous Notes Images from the original note were not included. [facility] most recent clinical notes. Fax over the clinical notes within the year to the number provided. Fax OK on 01/03/22 at 1:02 pm documented in this encounter [facility] 01-02-2022 Evaluation + Plan note Extrac eitan from: Title:AQUILINO POSTOP Author:García Reyes DO Date: 01/02/22 Plan Transfer/ Discharge: Patient can be discharged from PACU when criteria met. Condition good. Extracted from: Title:AQUILINO PREOP ENDO NOTE Author:Branden Reyes DO Date:01/02/22 Plan [place] [employer]esthesi[employer] (ASA) physical status classification: [...] injury, hospitalization, and general injury discussed. . [facility]11-14-2022 Hospital Discharge instructions Patient Education 01/02/2022 09:05:53 Hemorrhoids, Topz-bj-Sgna Hemorrhoids Hemorrhoids are swollen veins that may [...] 3 times a day. General instructions Take pfqe-bic-ovzgccd and prescription medicines only as told by [...] 11/14/2008 Document Revised: 02/13/2019 Document Reviewed: 06/27/2018 [employer] Patient Education 2019 [email or web address]. 01/02/2022 09:05:53 Endoscopy, Care After Procedure [facility] Endoscopy Care After Procedure Please read the instructions outlined below and refer to this sheet in the next few weeks. These discharge instructions provide you with general information on caring for yourself [facility] Your doctor may also give you [...] Document Re-Released: 07/30/2006 ExitCare Patient Information 2009 [employer]. Follow Up Care 12/29/2021 13:36:34 With:Obed MASON Address: [address] [place] [address] Business (1) When:1 to 2 weeks Comments:Call for any problems. [facility]11-10-2022 Hospital Discharge instructions Patient Education 12/29/2021 13:20:31 [...] water added (diluted fruit juice). Eat bland, fjtu-br-utcpns foods in small amounts as you are able. These foods include bananas, applesauce, rice, lean meats, toast, and crackers. Avoid drinking fluids that contain a lot of sugar or caffeine, such as energy drinks, sports drinks, and soda. Avoid alcohol. Avoid spicy or fatty foods. General instructions Take nyar-qtn-udqzqwn and prescription medicines only as told by your health care provider. Rest at home while you recover. Drink enough fluid to keep your urine pale yellow. Breathe slowly and deeply when you feel nauseous. Avoid smelling things that have strong odors. Wash your hands often using soap and water. If soap and water are not available, use hand conche operator. Make sure that all people in your [...] recommendations for eating and drinking and take nbpz-hqt-ayeyece and prescription medicinesonly as told by your [...] 03/15/2005 Document Revised: 07/16/2018 Document Reviewed: 07/16/2018 [employer] Patient Education 2020 [email or web address]. Follow Up Care 12/27/2021 13:34:02 With:LÓPEZ ALFRED, STEPHANI Clay, [facility] Address: [address] [place] [address]. [address] [place] [address] When:1 month Comments:Patient preference to discuss her immunodeficiency. [facility] [phone] Miscellaneous Notes* Telephone Encounter - Siri Lazaro [...] Maria De Jesus can be reached at [phone] Maria De Jesus would like to know what she should do. documented in this encounterHol[facility] Miscellaneous Notes* Telephone Encounter - iSri Lazaro - 12/06/2021 3:35 PM EDT Fax over the Plan of Care to [facility]. Dates: 11/12/21 to 05/11/22 Uploaded into [employer]. Please allow time for upload. documented in this encounterHol[facility]10[facility] Miscellaneous Notes* Telephone Encounter - Jackie Last RN - 12/05/2021 8:50 AM EDT Patient asking to try a different treatment than robaxin. Alis Last RN documented in this encounterHol[facility] Instructions* Patient Instructions* Chito Noyola MD [...] it to in person documented in this encounterHol[facility] History of Present illness Narrative* Chito Noyola MD - 11/29/2021 10:02 AM EDT [facility] - NEW PATIENT EVALUATION Saroj Foss [address] [facility] [address] Lizy Soria DO [address] [facility] [address] [facility] [address] Foss: Thank you for referring [...] research? Not currently Level of service : 42843 (60-74) min). Time spent 60 min on the day of service, which included preparing to see the patient, azdz-iz-eowo patient care, completing clinical documentation, obtaining and/or [...] Associate Staff Movement disorders [facility] documented in this encounterHol[facility]10-[facility]-2022 Instructions* Patient Instructions* Saroj Foss APRN.OVERLOCK SEWING MACHINE OPERATOR - 11/23/2021 12:33 PM EDT 1. Labs 2. Robaxin 500 mg up to 3 x daily as needed 3. Consult to sleep medicine 4. Consult to movement disorders documented in this encounterHolmes [facility]10[facility]22 History of Present illness Narrative* Saroj Foss APRN.CNP - 11/23/2021 11:45 AM EDT Images from the original note were not included. [facility] for General Neurology Follow-Up/Established Patient Visit Chief Complaint/Issues: Ben Barr is a 36 year old handed right-handed female seen in the [facility] for: Follow up Subjective [...] her to an eye doctor here at [place], but she would prefer to establish with [...] Plantarflexion 5/5 5/5 Movement/Coordination Finger-to- nose-finger and wyom-kc-zjsq intact bilaterally. No evidence of ataxia arms. 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 Saroj Foss, DIRECTOR OF CORPORATE SALES.[facility] General Neurology [address] [place]. [address] Appointment: [phone] During our face to face clinical encounter [...] of your PCP/referring physician documented in this encounterHolmes County [facility]09-23-2022 Miscellaneous Notes* Telephone Encounter - Nilam Vazquez - 11/11/2021 3:52 PM EDT Received call from ARMANI Pretty with [facility] with an update for the patient. Patient complaining of extreme fatigue. Any changes for the patient before next infusion appointment on 12/02/21 please call Maria De Jesus at [phone]. documented in this encounterHolmes County [facility]09-12-2022 History of Present illness Narrative* Saroj Foss APRN.CNP - 10/31/2021 1:33 PM EDT Skin Biopsy Procedure Note Skin Biopsy Accession Number: [id number] Biopsy Date: 10/31/2021 Referring physician: Saroj Foss [...] Procedure Note Procedure confirmed with provider and senior technical support analyst. Yes, left leg 2 skin biopsies. The [...] home. Specimens were labeled and sent to [facility]. Procedure was performed by: Saroj Foss APRN.LESTER Assistance in supply/equipment preparation performed by: Sammi WELLS) Sign out is complete. documented in this encounterHolmes County [facility]09-09-2022 Miscellaneous Notes* Telephone Encounter - Siri Lazaro - 10/28/2021 9:36 AM EDT Nurse barbara Pretty called back looking for a status on the conversation yesterday. Advise of the note from Dr. Kiser, to hold of for 1 week. documented in this encounterHolmes County [facility]08-23-2022 Nurse Note* Zaida Cisneros RN - [...] 2021 TIME: 11:52 AM documented in this encounterHolmes County [facility]08-15-2022 History of Present illness Narrative* Kulwant [...] her to an eye doctor here at [place], but she would prefer to establish with [...] the day of service that includes both wfea-qu-wsfp and tnc-iplx-mc-face time. This time wasseparate from any of [...] amenable and voiced understanding. documented in this encounterHolmes County [facility]08-02-2022 Instructions* Patient Instructions* Saroj Foss APRN.LESTER - 09/20/2021 9:55 AM EDT 1. MRI Brain and Cervical Spine W/ W/o 2. Consult to ophthalmology for dilated eye exam, concern for papilledema / IIH 3. QSART 4. Skin Biopsy 5. Autonomic reflex with tilt 6. Labs (fasting) documented in this encounterHolmes County [facility]08-02-2022 History of Present illness Narrative* Saroj Foss APRN.LESTER - 09/20/2021 9:00 AM EDT Images from the original note were not included. [facility] New Patient Evaluation Chief Complaint/Issues: Ben Barr is a 35 year old right-handed female seen in the [facility] for: 1. New patient HPI: On IgG [...] Current management of orthostatic condition Diet: Standard Beninese Exercise: No Water: 2-3 16 ounces Salt: [...] Extension 5/5 5/5 Movement/Coordination Finger-to- nose-finger and tsvi-oo-opvz intact bilaterally. No evidence of ataxia arms. [...] & Plan 09/20/2021 - Neuromuscular, Saroj Foss APRN.[facility] ASSESSMENT Ben Barr is a 35 [...] which included preparing to see the patient, aktv-pq-tiwt patient care, completing clinical documentation, obtaining and/or reviewing separately obtained history, performing a medically appropriate examination, counseling and educating the pat ient/family/caregiver and ordering medications, tests, or procedures. Saroj Foss APRN.[facility] General Neurology [address] [place]. [address] Appointment: [phone] CONSULT: Consultation requested by Dr. Kiser for [...] of your PCP/referring physician documented in this encounterHolmes County [facility]06-30-2022 Miscellaneous Notes* Telephone Encounter - Siri Lazaro - 08/18/2021 4:55 PM EDT Fax over two different prescriptions to [facility]. Medication: Fluconazole Refill: 1 Medication: Azithromycin Refills: 11 Uploaded both fax's into [employer] [facility]. documented in this encounterHolmes County [facility]06-29-2022 Miscellaneous Notes* Telephone Encounter - Siri Lazaro - 08/17/2021 1:14 PM EDT Received a call from Dr. Lizy Soria requesting to speak with Dr. Kiser about the chart for the patient. He did advise there was no freed or urgency on the call. Sent an e-mail to Dr. Kiser with call back number. documented in this encounterHolmes County [facility]06-20-2022 History of Present illness Narrative* Arsh Kiser MD, PhD - 08/08/2021 6:45 AM EDT VIRTUAL VISIT PROGRESS NOTE This is a virtual visit. It required patient-provider interaction for the medical decision making as documented below. I had the pleasure of seeing Ms. Barr in the Allergy & Immunology Clinic at the [facility] for follow up of CVID Last [...] today. 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 Doing well except sinus presssure. Abx don't help but steroids do. 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 Thanks. * Telephone Encounter - Siri Lazaro - 07/15/2021 9:59 AM EDT Salty from [facility] called in wondering if this one time they can give the orgingal prescription of: 0.9 % sodium chloride (NACL 0.9%) infusion For today during the infusion, since the shipment for the DW5 will not be in till next week. documented in this encounterHolmes County [facility]05-09-2022 Miscellaneous Notes* Telephone Encounter - Siri Lazaro - 06/27/2021 1:07 PM EDT Fax over the prescription to [facility]. Uploaded into [employer]. documented in this encounterHolmes County [facility]04-27-2022 Miscellaneous Notes* Telephone Encounter - Siri Lazaro - 06/15/2021 12:43 PM EDT [facility] Rep Called in again stating that its been an exteremly long day with the infusion going anywhere from 8 to 9 hrs and wanted to see if the hydradtion orders and can be changed to D5W, so that it can be compatible with Gammagard during infusion. Maria De Jesus LOMELI [phone] Or Yasmin at 1- [phone] option 2, than option 2 documented in this encounterHolmes County [facility]04-15-2022 Miscellaneous Notes* Telephone Encounter - Siri [...] infusion? Please call Maria De Jesus at [phone] documented in this encounterHolmes County [facility]03-01-2022 Hospital Discharge instructions Follow Up Care 04/19/2021 17:34:32 With:Lizy SORIA DO, FAM Address: [address] [place] [address]- When:Within 3 Month(s) [facility] [place] 10-19-2021 Evaluation note* Encounter Date Diagnosis Assessment [...] care instructions given in writting by [facility] Care At Home document. [employer] Other 05-31-2017 History of Past illness Narrative* Problem Noted Date Resolved Date Upper GI bleed 07/19/2016 07/20/2016 Vitamin D deficiency 05/04/2009 05/04/2009 documented as of this encounter (statuses as of 06/03/2021) [facility] of Past illness Narrative* Problem Noted Date Resolved Date Upper GI bleed 07/19/2016 07/20/2016 Vitamin D deficiency 05/04/2009 05/04/2009 documented as of this encounter (statuses as of 06/15/2021) [facility] History of Past illness Narrative* Problem Noted Date Resolved Date Upper GI bleed 07/19/2016 07/20/2016 Vitamin D deficiency 05/04/2009 05/04/2009 documented as of this encounter (statuses as of 06/15/2021) [facility] History of Past illness Narrative* Problem Noted Date Resolved Date Upper GI bleed 07/19/2016 07/20/2016 Vitamin D deficiency 05/04/2009 05/04/2009 documented as of this encounter (statuses as of 06/27/2021) [facility] History of Past illness Narrative* Problem Noted Date Resolved Date Upper GI bleed 07/19/2016 07/20/2016 Vitamin D deficiency 05/04/2009 05/04/2009 documented as of this encounter (statuses as of 07/15/2021) [facility] History of Past illness Narrative* Problem Noted Date Resolved Date Upper GI bleed 07/19/2016 07/20/2016 Vitamin D deficiency 05/04/2009 05/04/2009 documented as of this encounter (statuses as of 08/09/2021) [facility] of Past illness Narrative* Problem Noted Date Resolved Date Upper GI bleed 07/19/2016 07/20/2016 Vitamin D deficiency 05/04/2009 05/04/2009 documented as of this encounter (statuses as of 08/15/2021) [facility] of Past illness Narrative* Problem Noted Date Resolved Date Upper GI bleed 07/19/2016 07/20/2016 Vitamin D deficiency 05/04/2009 05/04/2009 documented as of this encounter (statuses as of 08/17/2021) [facility] of [facility] illness Narrative* Problem Noted Date Resolved Date Upper GI bleed 07/19/2016 07/20/2016 Vitamin D deficiency 05/04/2009 05/04/2009 documented as of this encounter (statuses as of 08/18/2021) [facility] of [facility] illness Narrative* Problem Noted Date Resolved Date Upper GI bleed 07/19/2016 07/20/2016 Vitamin D deficiency 05/04/2009 05/04/2009 documented as of this encounter (statuses as of 09/20/2021) [place] [address]-31-2017 History of Past illness Narrative* Problem Noted Date Resolved Date Upper GI bleed 07/19/2016 07/20/2016 Vitamin D deficiency 05/04/2009 05/04/2009 documented as of this encounter (statuses as of 10/03/2021) [facility] Narrative* Problem Noted Date Resolved Date Upper GI bleed 07/19/2016 07/20/2016 Vitamin D deficiency 05/04/2009 05/04/2009 documented as of this encounter (statuses as of 10/12/2021) [facility] of [facility] Narrative* Problem Noted Date Resolved Date Upper GI bleed 07/19/2016 07/20/2016 Vitamin D deficiency 05/04/2009 05/04/2009 documented as of this encounter (statuses as of 10/28/2021) [facility] Narrative* Problem Noted Date Resolved Date Upper GI bleed 07/19/2016 07/20/2016 Vitamin D deficiency 05/04/2009 05/04/2009 documented as of this encounter (statuses as of 10/31/2021) [facility] of [facility] Narrative* Problem Noted Date Resolved Date Upper GI bleed 07/19/2016 07/20/2016 Vitamin D deficiency 05/04/2009 05/04/2009 documented as of this encounter (statuses as of 11/11/2021) [facility] of [facility] illness Narrative* Problem Noted Date Resolved Date Upper GI bleed 07/19/2016 07/20/2016 Vitamin D deficiency 05/04/2009 05/04/2009 documented as of this encounter (statuses as of 11/23/2021) [facility] of [facility] Narrative* Problem Noted Date Resolved Date Upper GI bleed 07/19/2016 07/20/2016 Vitamin D deficiency 05/04/2009 05/04/2009 documented as of this encounter (statuses as of 11/29/2021) [facility] of [facility] illness Narrative* Problem Noted Date Resolved Date Upper GI bleed 07/19/2016 07/20/2016 Vitamin D deficiency 05/04/2009 05/04/2009 documented as of this encounter (statuses as of 12/06/2021) [facility] Narrative* Problem Noted Date Resolved Date Upper GI bleed 07/19/2016 07/20/2016 Vitamin D deficiency 05/04/2009 05/04/2009 documented as of this encounter (statuses as of 12/20/2021) [facility] Narrative* Problem Noted Date Resolved Date Upper GI bleed 07/19/2016 07/20/2016 Vitamin D deficiency 05/04/2009 05/04/2009 documented as of this encounter (statuses as of 12/22/2021) [facility] Narrative* Problem Noted Date Resolved Date Upper GI bleed 07/19/2016 07/20/2016 Vitamin D deficiency 05/04/2009 05/04/2009 documented as of this encounter (statuses as of 01/03/2022) [facility] of [facility] Narrative* Problem Noted Date Resolved Date Upper GI bleed 07/19/2016 07/20/2016 Vitamin D deficiency 05/04/2009 05/04/2009 documented as of this encounter (statuses as of 01/11/2022) [facility] Narrative* Problem Noted Date Resolved Date Upper GI bleed 07/19/2016 07/20/2016 Vitamin D deficiency 05/04/2009 05/04/2009 documented as of this encounter (statuses as of 01/17/2022) [facility] of [facility] Narrative* Problem Noted Date Resolved Date Upper GI bleed 07/19/2016 07/20/2016 Vitamin D deficiency 05/04/2009 05/04/2009 documented as of this encounter (statuses as of 01/19/2022) [facility] of [facility] Narrative* Problem Noted Date Resolved Date Upper GI bleed 07/19/2016 07/20/2016 Vitamin D deficiency 05/04/2009 05/04/2009 documented as of this encounter (statuses as of 01/24/2022) [facility] of [facility] Narrative* Problem Noted Date Resolved Date Upper GI bleed 07/19/2016 07/20/2016 Vitamin D deficiency 05/04/2009 05/04/2009 documented as of this encounter (statuses as of 01/26/2022) [facility] of [facility] illness Narrative* Problem Noted Date Resolved Date Upper GI bleed 07/19/2016 07/20/2016 Vitamin D deficiency 05/04/2009 05/04/2009 documented as of this encounter (statuses as of 01/29/2022) [facility] History of Past illness Narrative* Problem Noted Date Resolved Date Upper GI bleed 07/19/2016 07/20/2016 Vitamin D deficiency 05/04/2009 05/04/2009 documented as of this encounter (statuses as of 01/30/2022) [facility] History of Past illness Narrative* Problem Noted Date Resolved Date Upper GI bleed 07/19/2016 07/20/2016 Vitamin D deficiency 05/04/2009 05/04/2009 documented as of this encounter (statuses as of 02/01/2022) [facility] History of Past illness Narrative* Problem Noted Date Resolved Date Upper GI bleed 07/19/2016 07/20/2016 Vitamin D deficiency 05/04/2009 05/04/2009 documented as of this encounter (statuses as of 02/01/2022) [facility] History of Past illness Narrative* Problem Noted Date Resolved Date Upper GI bleed 07/19/2016 07/20/2016 Vitamin D deficiency 05/04/2009 05/04/2009 documented as of this encounter (statuses as of 02/08/2022) [facility] History of Past illness Narrative* Problem Noted Date Resolved Date Upper GI bleed 07/19/2016 07/20/2016 Vitamin D deficiency 05/04/2009 05/04/2009 documented as of this encounter (statuses as of 02/12/2022) [facility] History of Past illness Narrative* Problem Noted Date Resolved Date Upper GI bleed 07/19/2016 07/20/2016 Vitamin D deficiency 05/04/2009 05/04/2009 documented as of this encounter (statuses as of 02/22/2022) [facility] History of Past illness Narrative* Problem Noted Date Resolved Date Upper GI bleed 07/19/2016 07/20/2016 Vitamin D deficiency 05/04/2009 05/04/2009 documented as of this encounter (statuses as of 02/22/2022) [facility] History of Past illness Narrative* Problem Noted Date Resolved Date Upper GI bleed 07/19/2016 07/20/2016 Vitamin D deficiency 05/04/2009 05/04/2009 documented as of this encounter (statuses as of 02/23/2022) [facility] History of Past illness Narrative* Problem Noted Date Resolved Date Upper GI bleed 07/19/2016 07/20/2016 Vitamin D deficiency 05/04/2009 05/04/2009 documented as of this encounter (statuses as of 03/01/2022) [facility] History of Past illness Narrative* Problem Noted Date Resolved Date Upper GI bleed 07/19/2016 07/20/2016 Vitamin D deficiency 05/04/2009 05/04/2009 documented as of this encounter (statuses as of 03/07/2022) [facility] History of Past illness Narrative* Problem Noted Date Resolved Date Upper GI bleed 07/19/2016 07/20/2016 Vitamin D deficiency 05/04/2009 05/04/2009 documented as of this encounter (statuses as of 03/08/2022) [facility] History of Past illness Narrative* Problem Noted Date Resolved Date Upper GI bleed 07/19/2016 07/20/2016 Vitamin D deficiency 05/04/2009 05/04/2009 documented as of this encounter (statuses as of 03/08/2022) [facility] History of Past illness Narrative* Problem Noted Date Resolved Date Upper GI bleed 07/19/2016 07/20/2016 Vitamin D deficiency 05/04/2009 05/04/2009 documented as of this encounter (statuses as of 03/08/2022) [facility] History of Past illness Narrative* Problem Noted Date Resolved Date Upper GI bleed 07/19/2016 07/20/2016 Vitamin D deficiency 05/04/2009 05/04/2009 documented as of this encounter (statuses as of 03/10/2022) [facility] History of Past illness Narrative* Problem Noted Date Resolved Date Upper GI bleed 07/19/2016 07/20/2016 Vitamin D deficiency 05/04/2009 05/04/2009 documented as of this encounter (statuses as of 03/13/2022) [facility] History of Past illness Narrative* Problem Noted Date Resolved Date Upper GI bleed 07/19/2016 07/20/2016 Vitamin D deficiency 05/04/2009 05/04/2009 documented as of this encounter (statuses as of 03/28/2022) [facility] History of Past illness Narrative* Problem Noted Date Resolved Date Upper GI bleed 07/19/2016 07/20/2016 Vitamin D deficiency 05/04/2009 05/04/2009 documented as of this encounter (statuses as of 04/11/2022) [facility] History of Past illness Narrative* Problem Noted Date Resolved Date Upper GI bleed 07/19/2016 07/20/2016 Vitamin D deficiency 05/04/2009 05/04/2009 documented as of this encounter (statuses as of 04/12/2022) [facility] History of Past illness Narrative* Problem Noted Date Resolved Date Upper GI bleed 07/19/2016 07/20/2016 Vitamin D deficiency 05/04/2009 05/04/2009 documented as of this encounter (statuses as of 04/13/2022) [facility] History of Past illness Narrative* Problem Noted Date Resolved Date Upper GI bleed 07/19/2016 07/20/2016 Vitamin D deficiency 05/04/2009 05/04/2009 documented as of this encounter (statuses as of 04/13/2022) [facility] History of Past illness Narrative* Problem Noted Date Resolved Date Upper GI bleed 07/19/2016 07/20/2016 Vitamin D deficiency 05/04/2009 05/04/2009 documented as of this encounter (statuses as of 04/14/2022) [facility] History of Past illness Narrative* Problem Noted Date Resolved Date Upper GI bleed 07/19/2016 07/20/2016 Vitamin D deficiency 05/04/2009 05/04/2009 documented as of this encounter (statuses as of 04/14/2022) [facility] History of Past illness Narrative* Problem Noted Date Resolved Date Upper GI bleed 07/19/2016 07/20/2016 Vitamin D deficiency 05/04/2009 05/04/2009 documented as of this encounter (statuses as of 04/17/2022) [facility] History of Past illness Narrative* Problem Noted Date Resolved Date Upper GI bleed 07/19/2016 07/20/2016 Vitamin D deficiency 05/04/2009 05/04/2009 documented as of this encounter (statuses as of 05/12/2022) [facility] History of Past illness Narrative* Problem Noted Date Resolved Date Upper GI bleed 07/19/2016 07/20/2016 Vitamin D deficiency 05/04/2009 05/04/2009 documented as of this encounter (statuses as of 06/09/2022) [facility] History of Past illness Narrative* Problem Noted Date Resolved Date Upper GI bleed 07/19/2016 07/20/2016 Vitamin D deficiency 05/04/2009 05/04/2009 documented as of this encounter (statuses as of 06/13/2022) [facility] History of Past illness Narrative* Problem Noted Date Resolved Date Upper GI bleed 07/19/2016 07/20/2016 Vitamin D deficiency 05/04/2009 05/04/2009 documented as of this encounter (statuses as of 06/20/2022) [facility] History of Past illness Narrative* Problem Noted Date Resolved Date Upper GI bleed 07/19/2016 07/20/2016 Vitamin D deficiency 05/04/2009 05/04/2009 documented as of this encounter (statuses as of 06/27/2022) [facility] History of Past illness Narrative* Problem Noted Date Resolved Date Upper GI bleed 07/19/2016 07/20/2016 Vitamin D deficiency 05/04/2009 05/04/2009 documented as of this encounter (statuses as of 06/27/2022) [facility] History of Past illness Narrative* Problem Noted Date Resolved Date Upper GI bleed 07/19/2016 07/20/2016 Vitamin D deficiency 05/04/2009 05/04/2009 documented as of this encounter (statuses as of 06/28/2022) [facility] History of Past illness Narrative* Problem Noted Date Resolved Date Upper GI bleed 07/19/2016 07/20/2016 Vitamin D deficiency 05/04/2009 05/04/2009 documented as of this encounter (statuses as of 06/30/2022) [facility] History of Past illness Narrative* Problem Noted Date Resolved Date Upper GI bleed 07/19/2016 07/20/2016 Vitamin D deficiency 05/04/2009 05/04/2009 documented as of this encounter (statuses as of 07/03/2022) [facility] History of Past illness Narrative* Problem Noted Date Resolved Date Upper GI bleed 07/19/2016 07/20/2016 Vitamin D deficiency 05/04/2009 05/04/2009 documented as of this encounter (statuses as of 07/03/2022) [facility] History of Past illness Narrative* Problem Noted Date Resolved Date Upper GI bleed 07/19/2016 07/20/2016 Vitamin D deficiency 05/04/2009 05/04/2009 documented as of this encounter (statuses as of 07/11/2022) [facility] History of Past illness Narrative* Problem Noted Date Resolved Date Upper GI bleed 07/19/2016 07/20/2016 Vitamin D deficiency 05/04/2009 05/04/2009 documented as of this encounter (statuses as of 07/16/2022) [facility] History of Past illness Narrative* Problem Noted Date Resolved Date Upper GI bleed 07/19/2016 07/20/2016 Vitamin D deficiency 05/04/2009 05/04/2009 documented as of this encounter (statuses as of 07/21/2022) [facility] History of Past illness Narrative* Problem Noted Date Resolved Date Upper GI bleed 07/19/2016 07/20/2016 Vitamin D deficiency 05/04/2009 05/04/2009 documented as of this encounter (statuses as of 07/24/2022) [facility] History of Past illness Narrative* Problem Noted Date Resolved Date Upper GI bleed 07/19/2016 07/20/2016 Vitamin D deficiency 05/04/2009 05/04/2009 documented as of this encounter (statuses as of 07/24/2022) [facility] History of Past illness Narrative* Problem Noted Date Resolved Date Upper GI bleed 07/19/2016 07/20/2016 Vitamin D deficiency 05/04/2009 05/04/2009 documented as of this encounter (statuses as of 07/25/2022) [facility] History of Past illness Narrative* Problem Noted Date Resolved Date Upper GI bleed 07/19/2016 07/20/2016 Vitamin D deficiency 05/04/2009 05/04/2009 documented as of this encounter (statuses as of 07/26/2022) [facility] History of Past illness Narrative* Problem Noted Date Resolved Date Upper GI bleed 07/19/2016 07/20/2016 Vitamin D deficiency 05/04/2009 05/04/2009 documented as of this encounter (statuses as of 08/10/2022) [facility] History of Past illness Narrative* Problem Noted Date Resolved Date Upper GI bleed 07/19/2016 07/20/2016 Vitamin D deficiency 05/04/2009 05/04/2009 documented as of this encounter (statuses as of 08/25/2022) [facility] History of Past illness Narrative* Problem Noted Date Diagnosed Date Resolved Date Upper GI bleed 07/19/2016 07/20/2016 Vitamin D deficiency 05/04/2009 010 documented as of this encounter (statuses as of 09/05/2022) [facility] History of Past illness Narrative* Problem Noted Date Diagnosed Date Resolved Date Upper GI bleed 07/19/2016 07/20/2016 Vitamin D deficiency 05/04/2009 010 documented as of this encounter (statuses as of 09/14/2022) [facility] History of Past illness Narrative* Problem Noted Date Diagnosed Date Resolved Date Upper GI bleed 07/19/2016 07/20/2016 Vitamin D deficiency 05/04/2009 010 documented as of this encounter (statuses as of 09/25/2022) [facility] History of Past illness Narrative* Problem Noted Date Diagnosed Date Resolved Date Upper GI bleed 07/19/2016 07/20/2016 Vitamin D deficiency 05/04/2009 010 documented as of this encounter (statuses as of 09/26/2022) [facility] History of Past illness Narrative* Problem Noted Date Diagnosed Date Resolved Date Upper GI bleed 07/19/2016 07/20/2016 Vitamin D deficiency 05/04/2009 010 documented as of this encounter (statuses as of 10/05/2022) [facility] History of Past illness Narrative* Problem Noted Date Diagnosed Date Resolved Date Upper GI bleed 07/19/2016 07/20/2016 Vitamin D deficiency 05/04/20092 010 documented as of this encounter (statuses as of 10/05/2022) [facility] History of Past illness Narrative* Problem Noted Date Diagnosed Date Resolved Date Upper GI bleed 07/19/2016 07/20/2016 Vitamin D deficiency 05/04/2009 010 documented as of this encounter (statuses as of 10/16/2022) [facility] History of Past illness Narrative* Problem Noted Date Diagnosed Date Resolved Date Upper GI bleed 07/19/2016 07/20/2016 Vitamin D deficiency 05/04/2009 010 documented as of this encounter (statuses as of 10/17/2022) [facility] History of Past illness Narrative* Problem Noted Date Diagnosed Date Resolved Date Upper GI bleed 07/19/2016 07/20/2016 Vitamin D deficiency 05/04/2009 010 documented as of this encounter (statuses as of 10/19/2022) [facility] History of Past illness Narrative* Problem Noted Date Diagnosed Date Resolved Date Upper GI bleed 07/19/2016 07/20/2016 Vitamin D deficiency 05/04/20092 010 documented as of this encounter (statuses as of 10/19/2022) [facility] History of Past illness Narrative* Problem Noted Date Diagnosed Date Resolved Date Upper GI bleed 07/19/2016 07/20/2016 Vitamin D deficiency 05/04/2009 010 documented as of this encounter (statuses as of 10/19/2022) [facility] History of Past illness Narrative* Problem Noted Date Diagnosed Date Resolved Date Upper GI bleed 07/19/2016 07/20/2016 Vitamin D deficiency 05/04/20092 010 documented as of this encounter (statuses as of 10/20/2022) [facility] History of Past illness Narrative* Problem Noted Date Diagnosed Date Resolved Date Upper GI bleed 07/19/2016 07/20/2016 Vitamin D deficiency 05/04/2009 010 documented as of this encounter (statuses as of 10/21/2022) [facility] History of Past illness Narrative* Problem Noted Date Diagnosed Date Resolved Date Upper GI bleed 07/19/2016 07/20/2016 Vitamin D deficiency 05/04/2009 010 documented as of this encounter (statuses as of 10/23/2022) [facility] History of Past illness Narrative* Problem Noted Date Diagnosed Date Resolved Date Upper GI bleed 07/19/2016 07/20/2016 Vitamin D deficiency 05/04/2009 010 documented as of this encounter (statuses as of 10/26/2022) [facility] History of Past illness Narrative* Problem Noted Date Diagnosed Date Resolved Date Upper GI bleed 07/19/2016 07/20/2016 Vitamin D deficiency 05/04/2009 010 documented as of this encounter (statuses as of 10/27/2022) [facility] History of Past illness Narrative* Problem Noted Date Diagnosed Date Resolved Date Upper GI bleed 07/19/2016 07/20/2016 Vitamin D deficiency 05/04/2009 010 documented as of this encounter (statuses as of 11/07/2022) [facility] History of Past illness Narrative* Problem Noted Date Diagnosed Date Resolved Date Upper GI bleed 07/19/2016 07/20/2016 Vitamin D deficiency 05/04/2009 010 documented as of this encounter (statuses as of 11/09/2022) [facility] History of Past illness Narrative* Problem Noted Date Diagnosed Date Resolved Date Upper GI bleed 07/19/2016 07/20/2016 Vitamin D deficiency 05/04/2009 010 documented as of this encounter (statuses as of 11/10/2022) [facility] History of Past illness Narrative* Problem Noted Date Diagnosed Date Resolved Date Upper GI bleed 07/19/2016 07/20/2016 Vitamin D deficiency 05/04/2009 010 documented as of this encounter (statuses as of 11/14/2022) [facility] History of Past illness Narrative* Problem Noted Date Diagnosed Date Resolved Date Upper GI bleed 07/19/2016 07/20/2016 Vitamin D deficiency 05/04/20092 010 documented as of this encounter (statuses as of 12/01/2022) [facility] History of Past illness Narrative* Problem Noted Date Diagnosed Date Resolved Date Upper GI bleed 07/19/2016 07/20/2016 Vitamin D deficiency 05/04/2009 010 documented as of this encounter (statuses as of 12/07/2022) [facility] History of Past illness Narrative* Problem Noted Date Diagnosed Date Resolved Date Upper GI bleed 07/19/2016 07/20/2016 Vitamin D deficiency 05/04/2009 010 documented as of this encounter (statuses as of 12/14/2022) [facility] History of Past illness Narrative* Problem Noted Date Diagnosed Date Resolved Date Upper GI bleed 07/19/2016 07/20/2016 Vitamin D deficiency 05/04/20092 010 documented as of this encounter (statuses as of 01/23/2023) [facility] History of Past illness Narrative* Problem Noted Date Diagnosed Date Resolved Date Upper GI bleed 07/19/2016 07/20/2016 Vitamin D deficiency 05/04/20092 010 documented as of this encounter (statuses as of 01/23/2023) [facility] History of Past illness Narrative* Problem Noted Date Diagnosed Date Resolved Date Upper GI bleed 07/19/2016 07/20/2016 Vitamin D deficiency 05/04/2009 010 documented as of this encounter (statuses as of 02/01/2023) [facility] Appointment Date:08/17/2021 08:30:00 AM Scheduled Provider:Raquel HERNANDEZ Location: [place] Appointment Type:AL [facility] Appointment Date:10/31/2021 04:00:00 PM Scheduled Provider:Lizy SORIA DO Location:[facility] Appointment Type: Open Referrals to Other Providers Referred by: Lizy SORIA DO [facility] Evaluation + Plan note Future Appointments Appointment Date:10/31/2021 04:00:00 PM Scheduled Provider:Lizy SORIA DO Location:[facility] Appointment Type: Open Diagnostic Tests Pending * T3 Free 08/17/21 Future Scheduled Tests Radiology* [facility] Appointment Date:01/02/2022 08:50:00 AM Scheduled Provider: Location:[facility] Appointment Type:Surgery FT Future Scheduled Tests Laboratory* Fecal WBC Lactoferrin 12/29/21 * Giardia lamblia, Direct Detection EIA 12/29/21 * O & P Exam, Routine 12/29/21 * Clostridium Difficile PCR 12/29/21 * Enteric Panel by PCR 12/29/21 [facility] Evaluation + Plan note Future Appointments Appointment Date:01/02/2022 08:50:00 AM Scheduled Provider: Location:[facility] Appointment Type:Surgery FT Diagnostic Tests Pending * Enteric Panel by PCR 12/30/21 * Clostridium Difficile PCR 12/30/21 * O & P Exam, Routine 12/30/21 * Giardia lamblia, Direct Detection [facility] Appointment Date:10/16/2022 01:40:00 PM Scheduled Provider:Lizy SORIA DO Location:[facility] Appointment Type:FM Open [facility] Evaluation noteNo assessment information available [facility] Work Phone: evaluation note* Diagnosis CVID (common variable immunodeficiency) (HCC)- Primary Common variable immunodeficiency Recurrent infections Unspecified infectious and parasitic diseases Enteropathy Unspecified disorder of intestine [facility] Diagnosis Orthostatic lightheadedness- Primary Dizziness and giddiness Demyelinating disease of central nervous system (HCC) Demyelinating disease of central nervous system, unspecified Tachycardia Tachycardia, unspecified Disturbance of skin sensation Hypotension, postural Orthostatic hypotension Tension headache Blurry vision, bilateral Other specified visual disturbances Chronic fatigue Other malaise and fatigue Tremulousness Abnormal involuntary movements [facility]* Diagnosis Other localized visual field defect, bilateral- Primary Blurry vision, bilateral Other specified visual disturbances Positional headache Headache [facility]* Diagnosis Demyelinating disease of central nervous system (HCC) Demyelinating disease of central nervous system, unspecified documented in this encounter [facility] note* Diagnosis Demyelinating disease of central nervous system (HCC) Demyelinating disease of central nervous system, unspecified [facility]* Diagnosis Disturbance of skin sensation- Primary documented [facility] this [facility]* Diagnosis Tremulousness- Primary Abnormal involuntary movements Subjective weakness Other malaise and fatigue Tachycardia Tachycardia, unspecified Subjective cognitive impairment Chronic fatigue Other malaise and fatigue Sleep walking disorder Sleep arousal disorder [facility]* Diagnosis Tremulousness- Primary Abnormal involuntary movements documented in this encounter [facility] note* Diagnosis CVID (common variable immunodeficiency) (HCC)- Primary Common variable immunodeficiency Recurrent infections Unspecified infectious and parasitic diseases Enteropathy Unspecified disorder of intestine Cytopenia Unspecified diseases of blood and blood-forming organs documented [facility] this encounter [facility]* Diagnosis Iron disorder- Primary Other disorders of iron metabolism Acquired hypothyroidism Unspecified hypothyroidism [facility] this [facility]* Diagnosis Bezoar, initial encounter- Primary documented [facility] this encounter [facility]* Diagnosis Thrombocytopenia (HCC) Thrombocytopenia, unspecified Elevated LFTs Other abnormal blood chemistry Iron disorder Other disorders of iron metabolism documented in this encounter [facility] note* Diagnosis Chronic insomnia- Primary Insomnia, unspecified [...] Chronic maxillary sinusitis [facility]* Diagnosis Iron disorder- Primary Other disorders of iron metabolism [facility] Diagnosis NO SHOW- Primary [facility] Diagnosis Tremulousness- Primary Abnormal involuntary movements CVID (common variable immunodeficiency) (HCC)- Primary Common variable immunodeficiency Enteropathy Unspecified disorder of intestine Cytopenia Unspecified diseases of blood and blood-forming organs Recurrent infections Unspecified infectious and parasitic diseases [facility] Diagnosis Iron disorder- Primary Other disorders of iron metabolism CVID (common variable immunodeficiency) (HCC)- Primary Common variable immunodeficiency Enteropathy Unspecified disorder of intestine Cytopenia Unspecified diseases of blood and blood-forming organs Recurrent infections Unspecified infectious and parasitic diseases documented in this encounter [facility] Diagnosis Proximal leg weakness- Primary Other musculoskeletal symptoms referable to limbs POTS (postural orthostatic tachycardia syndrome) Tachycardia, unspecified Tension headache CVID (common variable immunodeficiency) (HCC)- Primary Common variable immunodeficiency Enteropathy Unspecified disorder of intestine Cytopenia Unspecified diseases of blood and blood-forming organs Recurrent infections Unspecified infectious and parasitic diseases documented in this encounter [facility] Diagnosis CVID (common variable immunodeficiency) (HCC)- Primary Common variable immunodeficiency Enteropathy Unspecified disorder of intestine Cytopenia Unspecified diseases of blood and blood-forming organs Recurrent infections Unspecified infectious and parasitic diseases [facility] Diagnosis Weakness generalized- Primary Other malaise and fatigue Proximal leg weakness Other musculoskeletal symptoms referable to limbs documented in this encounter [facility] Diagnosis Gastroparesis- Primary History of colectomy Other postprocedural status Chronic idiopathic constipation Unspecified constipation documented in this encounter [facility] Diagnosis History of colectomy Other postprocedural status Chronic idiopathic constipation Unspecified constipation [facility] Diagnosis Gastroparesis- Primary Dysautonomia (HCC) Unspecified disorder of autonomic nervous system documented in this encounter [facility] Diagnosis POTS (postural orthostatic tachycardia syndrome)- Primary Tachycardia, unspecified Gastroparesis Positive MUMTAZ antibody documented in this encounter [facility] Diagnosis Tension headache documented in this encounter [facility] Diagnosis CVID (common variable immunodeficiency) (HCC)- [...] ClinicEvaluation note* Diagnosis Convulsions, unspecified convulsion type ([facility])- Primary [facility] 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-man syndrome Incoordination of extremity Lack of coordination Gait instability Abnormality of gait Other speech disturbance Functional movement disorder Other extrapyramidal disease and abnormal movement disorder CVID (common variable immunodeficiency) ([facility])- Primary Common variable immunodeficiency Recurrent infections Unspecified infectious and parasitic diseases Other fatigue [facility] Diagnosis Functional movement disorder- Primary Other extrapyramidal disease and abnormal movement disorder Seizure-like activity (HCC) Other convulsions CVID (common variable immunodeficiency) ([facility])- Primary Common variable immunodeficiency Recurrent infections Unspecified [...] Other speech disturbance documented in this encounter [facility] Diagnosis 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 Incoordination of extremity Lack of coordination documented in this encounter [facility] Diagnosis 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 Gait instability Abnormality of gait documented in this encounter [facility] Diagnosis MDD (major depressive disorder), recurrent episode, moderate (HCC)- Primary Major depressive disorder, recurrent episode, moderate Trauma and stressor-related disorder Unspecified adjustment reaction 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 documented in this encounter [facility] Diagnosis Orthostatic lightheadedness- Primary Dizziness and giddiness 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 Hypotension, unspecified hypotension type documented in this encounter [facility] Diagnosis 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 documented in this encounter [facility] Diagnosis Gastroparesis- Primary documented in this encounter [facility]* Diagnosis Preoperative examination- Primary Preoperative examination, unspecified Gastroparesis POTS (postural orthostatic tachycardia syndrome) Tachycardia, unspecified Former smoker Personal history of tobacco use, presenting hazards to health Gastroesophageal reflux disease, unspecified whether esophagitis present Stage 2 chronic kidney disease CVID (common variable immunodeficiency) ([facility]) Common variable immunodeficiency History of colectomy Other postprocedural status Anxiety Anxiety state, unspecified Depression, unspecified depression type PTSD (post-traumatic stress disorder) Posttraumatic stress disorder documented in this encounter [facility] Diagnosis MDD (major depressive disorder), recurrent episode, moderate (HCC)- Primary Major depressive disorder, recurrent episode, moderate Trauma and stressor-related disorder Unspecified adjustment reaction 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 documented in this encounter [facility] Diagnosis PTSD (post-traumatic stress disorder)- Primary Posttraumatic stress disorder Generalized anxiety disorder Episodic mood disorder (HCC) Unspecified episodic mood disorder 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 documented in this encounter [facility]* Diagnosis CVID (common variable immunodeficiency) ([facility])- Primary Common variable immunodeficiency Recurrent infections Unspecified infectious and parasitic diseases Positive MUMTAZ antibody documented in this encounter [facility] general Narrative - Reported* Type Description Date Medical History common variable, immunodeficienc y, gets a monthly IG tx Medical History POTS Medical History epilepsy Medical History Total colonectomy Surgical History Total colonectomy [employer] Other Hospital course Narrative No data available for this section [facility] Discharge instructions [...] bladder control, numbness, tingling or any other [facility] Work Phone: Hospital Discharge instructions No data available for this section [facility] data available for this section [facility]ative[facility] Outpatient Procedure (Routine) - Authorized Specialty Diagnoses / Procedures Referred By Gabino iniguez Referred To Contact [facility] Diagnoses Proximal leg weakness Procedures EMG(NEURO/NI) NERVE CONDUCTION STUDIES 9-10 STUDIES Saroj Foss APRN.CNP [address] [place] [address] Neu[facility] [place] [address] [place] [address] Referral ID Status Reason Start Date Expiration Date Visits Requested Visits Authorized [id number] Authorized Auto-Generat ed Referral 03/10/2022 02/18/2023 1 1 [facility] for referral (narrative)* Outpatient Procedure (Routine) - Pending Review Specialty Diagnoses / Procedures Referred By Gabino iniguez Referred To Contact [facility] Diagnoses History of colectomy Chronic idiopathic constipation Procedures ADULT [place] ANORECTAL MANOMETRY ANORECTAL MANOMETRY Frederic Douglass DO [facility] [address] [place] [address] Dig[facility]ive [facility] [place] [address] [place] [address] Referral ID Status Reason Start Date Expiration Date Visits Requested Visits Authorized [id number] Pending Review Auto-Generat ed Referral 04/13/2022 04/13/2023 1 1 * Diagnostic Procedure Only (Routine) - Closed Specialty Diagnoses / Procedures Referred By Contac t Referred To Contact XR IMAGING Diagnoses History of colectomy Chronic idiopathic constipation Procedures XR ABDOMEN 1V SUPINE RADIOLOGIC EXAM ABDOMEN 1 VIEW Frederic Douglass DO [address] [place] [id number] Xr Imaging Referral ID Status Reason Start Date Expiration Date V isits Requested Visits Authorized [id number] Closed Auto-Generate d Referral 04/13/2022 05/13/2023 1 1 * Outpatient Procedure (Routine) - Pending Review Specialty Diagnoses / Procedures Referred By Contac t Referred To Contact [facility] Diagnoses Gastroparesis Procedures CAPSULE ENDOSCOPY SMART Frederic Douglass DO [address] [place] [address] [facility] [place] [address] [place] [address] Referral ID Status Reason Start Date Expiration Date Visits Requested Visits Authorized [id number] Pending Review Auto-Generat ed Referral 04/13/2022 04/13/2023 1 1 [facility] for referral (narrative)* Diagnostic Procedure Only (Routine) - Closed Specialty Diagnoses / Procedures Referred By Contac t Referred To Contact XR IMAGING Diagnoses History of colectomy Chronic idiopathic constipation Procedures XR ABDOMEN 1V SUPINE RADIOLOGIC EXAM ABDOMEN 1 VIEW Frederic Douglass DO [address] [place] [address] Xr Imaging Referral ID Status Reason Start Date Expiration Date V isits Requested Visits Authorized [id number] Closed Auto-Generate d Referral 04/13/2022 05/13/2023 1 1 [facility] for referral (narrative)* Outpatient Procedure (Routine) - Authorized Specialty Diagnoses / Procedures Referred By Gabino t Referred To Contact [facility] Diagnoses Muscle weakness Procedures EMG(NEURO/NI) NERVE CONDUCTION STUDIES 9-10 STUDIES Kim Rogers MD [facility] [place] [id number] [place] [address] Referral ID Status Reason Start Date Expiration Date Visits Requested Visits Authorized [id number] Authorized Auto-Generat ed Referral 07/03/2022 02/18/2023 1 1 [facility] for referral (narrative)* Outpatient Procedure (Routine) - Waiting for Online Response Specialty Diagnoses / Procedures Referred By Gabino t Referred To Contact [facility] Diagnoses Gastroparesis Procedures EGD - THERAPEUTIC, EUS, OR TUBE INTERVENTIONS ESOPHAGOGASTRODUODENOSC OPY TRANSORAL DIAGNOSTIC STOMACH SURGERY PROCEDURE [place] [address] [facility] [address] [address] Referral ID Status Reason Start Date Expiration Date Visits Requested Visits Authorized [id number] Waiting for Online Response Patient Cleared - Admin/Chair man/Directo r advise to proceed or did not respond 11/16/2022 11/17/2023 1 1 T [facility] for visit Narrative* Diagnostic Procedure Only (Routine) - Closed Specialty Diagnoses / Procedures Referred By Gabino t Referred To Contact XR IMAGING Diagnoses History of colectomy Chronic idiopathic constipation Procedures XR ABDOMEN 1V SUPINE RADIOLOGIC EXAM ABDOMEN 1 VIEW Frederic Douglass DO [facility] [address] [place] [address] Xr Imaging Referral ID Status Reason Start Date Expiration Date V isits Requested Visits Authorized [id number] Closed Auto-Generate d Referral 04/13/2022 05/13/2023 1 1 [facility] for visit Narrative* Outpatient Procedure (Routine) - Closed Specialty Diagnoses / Procedures Referred By Gabino t Referred To Contact [facility] Diagnoses Gastroparesis Procedures CAPSULE ENDOSCOPY SMART GI TRANSIT & PRES ABIMAEL WIRELESS CAPSULE W/INTERP Frederic Douglass, DO [facility] [address] [place] [address] [address] Referral ID Status Reason Start Date Expiration Date V isits Requested Visits Authorized [id number] Closed Auto-Generate d Referral 04/13/2022 02/18/2023 1 1 [facility] for visit Narrative* Outpatient Procedure (Routine) - Waiting for Online Response Specialty Diagnoses / Procedures Referred By Gabino iniguez Referred To Contact [facility] Diagnoses Gastroparesis Procedures EGD - THERAPEUTIC, EUS, OR TUBE INTERVENTIONS ESOPHAGOGASTRODUODENOSC OPY TRANSORAL DIAGNOSTIC STOMACH SURGERY PROCEDURE [place]LIST[place] [address] [place] [address] Referral ID Status Reason Start Date Expiration Date Visits Requested Visits Authorized [id number] Waiting for Online Response Patient Cleared - Admin/Chair man/Directo r advise to proceed or did not respond 11/16/2022 11/17/2023 1 1 [facility] Advance Directives No Advanced Directives Records FoundDocuments on File Type Date Recorded Patient Art Model Expl anation Advance Directive(s) Advance Directive(s) 07/19/2016 8:34 PM Advance Directive(s) 07/19/2016 7:10 PM Advance Directive(s) 06/29/2015 10:55 AM Advance Directive(s) 05/23/2015 1:35 PM Advance Directive(s) 03/18/2015 8:14 PM Advance Directive Response Recorded Date/ Time Advance Directives No June 01, 2 018 3:40pm Documents on File Type Date Recorded Patient Art Model Expl anation Advance Directive(s) Advance Directive(s) 07/19/2016 8:34 PM Advance Directive(s) 07/19/2016 7:10 PM Advance Directive(s) 06/29/2015 10:55 AM Advance Directive(s) 05/23/2015 1:35 PM Advance Directive(s) 03/18/2015 8:14 PM Documents on File Type Date Recorded Patient Art Model Expl anation Advance Directive(s) 03/18/2015 8:14 PM Documents on File Type Date Recorded Patient Art Model Expl anation Advance Directive(s) 03/18/2015 8:14 PM [...] CANAL CERVICAL W/O & W/CONTR Saroj Erickson, DIRECTOR OF CORPORATE SALES.OVERLOCK SEWING MACHINE OPERATOR [address] [place] [address] Mr Imaging Referral ID Status Reason Start Date Expiration Date Visits Requested Visits Authorized [id number] Additional Clinical Info Needed Auto-Generat ed Referral 09/20/2021 10/20/2022 1 1 Specialty Diagnoses / Procedures Referred By Contac t Referred To Contact MR IMAGING Diagnoses Demyelinating disease of central nervous system (HCC) Procedures MRI BRAIN WO/W IVCON MRI BRAIN BRAIN STEM W/O W/CONTRAST MATERIAL Saroj Foss APRN.OVERLOCK SEWING MACHINE OPERATOR [address] [place] [address] Mr Imaging Referral ID Status Reason Start Date Expiration Date Visits Requested Visits Authorized [id number] Additional Clinical Info Needed Auto-Generat ed Referral 09/20/2021 10/20/2022 1 1 Specialty Diagnoses / Procedures Referred By Contac t Referred To Contact Ophthalmology Diagnoses Tension headache Blurry vision, bilateral Procedures CONSULT TO OPHTHALMOLOGY OFFICE/OUTPATIENT [facility] 60-74 MINUTES Saroj Foss APRN.OVERLOCK SEWING MACHINE OPERATOR [address] [place] [id number] Referral ID Status Reason Start Date Expiration Date Visits Requested Visits Authorized [id number] Authorized PCP Requested Referral 09/20/2021 09/20/2022 1 1 Referral ID Status Reason Start Date Expiration Date V isits Requested Visits Authorized [id number] Closed Auto-Generate d Referral 09/20/2021 11/21/2021 1 1 Referral ID Status Reason Start Date Expiration Date V isits Requested Visits Authorized [id number] Closed Auto-Generate d Referral 09/20/2021 12/03/2021 1 1 Specialty Diagnoses / Procedures Referred By Contac t Referred To Contact Neurology Diagnoses Tremulousness Procedures CONSULT TO NEUROLOGY OFFICE/OUTPATIENT [facility] 60-74 MINUTES Saroj Foss APRN.OVERLOCK SEWING MACHINE OPERATOR [address] [place] [address] Referral ID Status Reason Start Date Expiration Date Visits Requested Visits Authorized [id number] Authorized PCP Requested Referral 11/23/2021 11/23/2022 1 1 Specialty Diagnoses / Procedures Referred By Contac t Referred To Contact Neurology Diagnoses Chronic fatigue Sleep walking disorder Procedures CONSULT TO NEUROLOGY OFFICE/OUTPATIENT [facility] 60-74 MINUTES Saroj Foss APRN.OVERLOCK SEWING MACHINE OPERATOR [address] [place] [id number] Referral ID Status Reason Start Date Expiration Date Visits Requested Visits Authorized [id number] Authorized PCP Requested Referral 11/23/2021 11/23/2022 1 1 Specialty Diagnoses / Procedures Referred By Contac t Referred To Contact Diagnoses Tremulousness Procedures PROVIDER ORDERED FOLLOW UP OFFICE/OUTPATIENT [facility] 60-74 MINUTES Chito Noyola MD [address] [place] [address] Referral ID Status Reason Start Date Expiration Date Visits Requested Visits Authorized [id number] Authorized PCP Requested Referral 2 02/27/2022 1 1 Specialty Diagnoses / Procedures Referred By Contac t Referred To Contact Diagnoses CVID (common variable immunodeficiency) (HCC) Procedures CONSULT TO HEMATOLOGY/ONCOLOGY OFFICE/OUTPATIENT [facility] 60-74 MINUTES Arsh Kiser MD, PhD [address] [place] [address] Referral ID Status Reason Start Date Expiration Date Visits Requested Visits Authorized [id number] Authorized PCP Requested Referral 2 01/17/2023 1 1 Specialty Diagnoses / Procedures Referred By Contac t Referred To Contact Gastroenterology Diagnoses [place], initial encounter Procedures CONSULT TO GASTROENTEROLOGY OFFICE/OUTPATIENT [facility] 60-[place] [address] [place] [address] Referral ID Status Reason Start Date Expiration Date Visits Requested Visits Authorized [id number] Authorized PCP Requested Referral 01/24/2022 01/24/2023 1 1 Specialty Diagnoses / Procedures Referred By Contac t Referred To Contact Diagnoses Tremulousness Procedures PROVIDER ORDERED FOLLOW UP OFFICE/OUTPATIENT [facility] 60-74 MINUTES Chito Noyola MD [address] [place] [address] Referral ID Status Reason Start Date Expiration Date Visits Requested Visits Authorized [id number] Authorized PCP Requested Referral 03/07/2022 06/05/2022 1 1 Specialty Diagnoses / Procedures Referred By Contac t Referred To Contact Neurology Diagnoses Proximal leg weakness Spasm of muscle Abnormal laboratory test Procedures CONSULT TO NEUROLOGY OFFICE/OUTPATIENT [facility] 60-74 MINUTES Saroj Foss, DIRECTOR OF CORPORATE SALES.OVERLOCK SEWING MACHINE OPERATOR [address] [place] [address] Referral ID Status Reason Start Date Expiration Date Visits Requested Visits Authorized [id number] Authorized PCP Requested Referral 06/27/2022 06/27/2023 1 1 Specialty Diagnoses / Procedures Referred By Contac t Referred To Contact Neurology Diagnoses History of seizure Procedures CONSULT TO NEUROLOGY OFFICE/OUTPATIENT [facility] 60-74 MINUTES Saroj Foss, DIRECTOR OF CORPORATE SALES.OVERLOCK SEWING MACHINE OPERATOR [address] [place], [place] [id number] Referral ID Status Reason Start Date Expiration Date Visits Requested Visits Authorized [id number] Authorized PCP Requested Referral 06/27/2022 06/27/2023 1 1 Specialty Diagnoses / Procedures Referred By Contac t Referred To Contact [facility] Diagnoses History of seizure Procedures EPIL EEG LONG EEG EXTENDED MONITORING 61-119 MINUTES ELECTROENCEPHALOGRAM REC COMA/SLEEP ONLY Saroj Foss, DIRECTOR OF CORPORATE SALES.OVERLOCK SEWING MACHINE OPERATOR [address] [place] [address] [facility] [place] [address] [place] [address] Referral ID Status Reason Start Date Expiration Date Visits Requested Visits Authorized [id number] Authorized Auto-Generat ed Referral 06/27/2022 06/28/2023 1 1 Specialty Diagnoses / Procedures Referred By Contac t Referred To Contact Diagnoses Stiffman syndrome Procedures CONSULT TO [facility] OFFICE/OUTPATIENT [facility] 60-74 MINUTES Vesta Mares, DIRECTOR OF CORPORATE SALES.OVERLOCK SEWING MACHINE OPERATOR [address] [place], [place] [id number] Referral ID Status Reason Start Date Expiration Date Visits Requested Visits Authorized [id number] Authorized PCP Requested Referral 07/16/2022 07/16/2023 1 1 Specialty Diagnoses / Procedures Referred By Contac t Referred To Contact Psychology Diagnoses Functional neurological symptom disorder with weakness or paralysis Procedures CONSULT TO PSYCHOLOGY OFFICE/OUTPATIENT [facility] MDM 60-74 MINUTES Bebeto Perry MD [address] [place] [address] Referral ID Status Reason Start Date Expiration Date Visits Requested Visits Authorized [id number] Pending Review PCP Requested Referral 08/10/2022 08/10/2023 1 1 Specialty Diagnoses / Procedures Referred By Contac t Referred To Contact Diagnoses Functional neurological symptom disorder with weakness or paralysis Procedures CONSULT TO FUNCTIONAL MOVEMENT DISORDERS (FMD) OFFICE/OUTPATIENT [facility] 60-74 MINUTES Bebeto Perry MD [address] [place] [address] Referral ID Status Reason Start Date Expiration Date Visits Requested Visits Authorized [id number] Authorized PCP Requested Referral 08/10/2022 08/10/2023 1 1 Specialty Diagnoses / Procedures Referred By Contac t Referred To Contact [facility] Diagnoses Functional neurological symptom disorder with weakness or paralysis Other speech disturbance Procedures CONSULT TO SPEECH THERAPY OFFICE/OUTPATIENT [facility] 60-74 MINUTES Bebeto Perry MD [address] [place] [address] [facility] [place] [address] Referral ID Status Reason Start Date Expiration Date Visits Requested Visits Authorized [id number] Pending Review Auto-Generat ed Referral 08/10/2022 08/10/2023 1 1 Specialty Diagnoses / Procedures Referred By Contac t Referred To Contact Physical Therapy Diagnoses Functional neurological symptom disorder with weakness or paralysis Gait instability Procedures CONSULT TO PHYSICAL THERAPY Bebeto Perry MD [address] [place] [address] Referral ID Status Reason Start Date Expiration Date V isits Requested Visits Authorized [id number] Pending Review 08/10/2022 2022 1 1 Specialty Diagnoses / Procedures Referred By Contac t Referred To Contact Occupational Therapy Diagnoses Functional neurological symptom disorder with weakness or paralysis Incoordination of extremity Procedures CONSULT TO [employer] [place] [address] [place], [place] [id number] Referral ID Status Reason Start Date Expiration Date V isits Requested Visits Authorized [id number] Pending Review 08/10/2022 2022 1 1 Specialty Diagnoses / Procedures Referred By Contac t Referred To Contact [facility] Diagnoses Cognitive communication disorder Procedures SPEECH REHAB FOLLOW UP ORDER TX SPEECH LANG VOICE COMMJ &/AUDITORY PROC IND Speech [address] [place] [address] [facility] [address] [place] [address] Referral ID Status Reason Start Date Expiration Date Visits Requested Visits Authorized [id number] Pending Review PCP Requested Referral Auto-Generate d Referral 10/19/2022 01/17/2023 1 1 Specialty Diagnoses / Procedures Referred By Contac t Referred To Contact Diagnoses Functional neurological symptom disorder with weakness or paralysis Procedures PROVIDER ORDERED FOLLOW UP OFFICE/OUTPATIENT [facility] 60-74 MINUTES Muna Lackey MD [address] [place] [address] Referral ID Status Reason Start Date Expiration Date Visits Requested Visits Authorized [id number] Authorized PCP Requested Referral 10/18/2023 1 1 [...] or prosecute any alcohol or drug abuse patient.[facility] HospitalIn the event this information is protected by the Federal Confidentiality of Alcohol and Drug Abuse Patient Records regulations: The Federal rules restrict any use of the information to criminally investigate or prosecute any alcohol or drug abuse patient.[facility] HospitalIn the event this information is protected by the Federal Confidentiality of Alcohol and Drug Abuse Patient Records regulations: The Federal rules restrict any use of the information to criminally investigate or prosecute any alcohol or drug abuse patient.[facility] HospitalIn the event this information is protected by the Federal Confidentiality of Alcohol and Drug Abuse Patient Records regulations: The Federal rules restrict any use of the information to criminally investigate or prosecute any alcohol or drug abuse patient.[facility] HospitalIn the event this information is protected by the Federal Confidentiality of Alcohol and Drug Abuse Patient Records regulations: The Federal rules restrict any use of the information to criminally investigate or prosecute any alcohol or drug abuse patient.[facility] HospitalIn the event this information is protected by the Federal Confidentiality of Alcohol and Drug Abuse Patient Records regulations: The Federal rules restrict any use of the information to criminally investigate or prosecute any alcohol or drug abuse patient.[facility] HospitalIn the event this information is protected by the Federal Confidentiality of Alcohol and Drug Abuse Patient Records regulations: The Federal rules restrict any use of the information to criminally investigate or prosecute any alcohol or drug abuse patient.[facility] HospitalIn the event this information is protected by the Federal Confidentiality of Alcohol and Drug Abuse Patient Records regulations: The Federal rules restrict any use of the information to criminally investigate or prosecute any alcohol or drug abuse patient.[facility] HospitalIn the event this information is protected by the Federal Confidentiality of Alcohol and Drug Abuse Patient Records regulations: The Federal rules restrict any use of the information to criminally investigate or prosecute any alcohol or drug abuse patient.[facility] HospitalIn the event this information is protected by the Federal Confidentiality of Alcohol and Drug Abuse Patient Records regulations: The Federal rules restrict any use of the information to criminally investigate or prosecute any alcohol or drug abuse patient.[facility] HospitalIn the event this information is protected by the Federal Confidentiality of Alcohol and Drug Abuse Patient Records regulations: The Federal rules restrict any use of the information to criminally investigate or prosecute any alcohol or drug abuse patient.[facility] HospitalIn the event this information is protected by the Federal Confidentiality of Alcohol and Drug Abuse Patient Records regulations: The Federal rules restrict any use of the information to criminally investigate or prosecute any alcohol or drug abuse patient.[facility] HospitalIn the event this information is protected by the Federal Confidentiality of Alcohol and Drug Abuse Patient Records regulations: The Federal rules restrict any use of the information to criminally investigate or prosecute any alcohol or drug abuse patient.[facility] HospitalIn the event this information is protected by the Federal Confidentiality of Alcohol and Drug Abuse Patient Records regulations: The Federal rules restrict any use of the information to criminally investigate or prosecute any alcohol or drug abuse patient.[facility] HospitalIn the event this information is protected by the Federal Confidentiality of Alcohol and Drug Abuse Patient Records regulations: The Federal rules restrict any use of the information to criminally investigate or prosecute any alcohol or drug abuse patient.[facility] HospitalIn the event this information is protected by the Federal Confidentiality of Alcohol and Drug Abuse Patient Records regulations: The Federal rules restrict any use of the information to criminally investigate or prosecute any alcohol or drug abuse patient.[facility] HospitalIn the event this information is protected by the Federal Confidentiality of Alcohol and Drug Abuse Patient Records regulations: The Federal rules restrict any use of the information to criminally investigate or prosecute any alcohol or drug abuse patient.[facility] HospitalIn the event this information is protected by the Federal Confidentiality of Alcohol and Drug Abuse Patient Records regulations: The Federal rules restrict any use of the information to criminally investigate or prosecute any alcohol or drug abuse patient.[facility] HospitalIn the event this information is protected by the Federal Confidentiality of Alcohol and Drug Abuse Patient Records regulations: The Federal rules restrict any use of the information to criminally investigate or prosecute any alcohol or drug abuse patient.[facility] HospitalIn the event this information is protected by the Federal Confidentiality of Alcohol and Drug Abuse Patient Records regulations: The Federal rules restrict any use of the information to criminally investigate or prosecute any alcohol or drug abuse patient.[facility] HospitalIn the event this information is protected by the Federal Confidentiality of Alcohol and Drug Abuse Patient Records regulations: The Federal rules restrict any use of the information to criminally investigate or prosecute any alcohol or drug abuse patient.[facility] HospitalIn the event this information is protected by the Federal Confidentiality of Alcohol and Drug Abuse Patient Records regulations: The Federal rules restrict any use of the information to criminally investigate or prosecute any alcohol or drug abuse patient.[facility] HospitalIn the event this information is protected by the Federal Confidentiality of Alcohol and Drug Abuse Patient Records regulations: The Federal rules restrict any use of the information to criminally investigate or prosecute any alcohol or drug abuse patient.[facility] HospitalIn the event this information is protected by the Federal Confidentiality of Alcohol and Drug Abuse Patient Records regulations: The Federal rules restrict any use of the information to criminally investigate or prosecute any alcohol or drug abuse patient.[facility] HospitalIn the event this information is protected by the Federal Confidentiality of Alcohol and Drug Abuse Patient Records regulations: The Federal rules restrict any use of the information to criminally investigate or prosecute any alcohol or drug abuse patient.[facility] HospitalIn the event this information is protected by the Federal Confidentiality of Alcohol and Drug Abuse Patient Records regulations: The Federal rules restrict any use of the information to criminally investigate or prosecute any alcohol or drug abuse patient.[facility] HospitalIn the event this information is protected by the Federal Confidentiality of Alcohol and Drug Abuse Patient Records regulations: The Federal rules restrict any use of the information to criminally investigate or prosecute any alcohol or drug abuse patient.[facility] HospitalIn the event this information is protected by the Federal Confidentiality of Alcohol and Drug Abuse Patient Records regulations: The Federal rules restrict any use of the information to criminally investigate or prosecute any alcohol or drug abuse patient.[facility] HospitalIn the event this information is protected by the Federal Confidentiality of Alcohol and Drug Abuse Patient Records regulations: The Federal rules restrict any use of the information to criminally investigate or prosecute any alcohol or drug abuse patient.[facility] HospitalIn the event this information is protected by the Federal Confidentiality of Alcohol and Drug Abuse Patient Records regulations: The Federal rules restrict any use of the information to criminally investigate or prosecute any alcohol or drug abuse patient.[facility] HospitalIn the event this information is protected by the Federal Confidentiality of Alcohol and Drug Abuse Patient Records regulations: The Federal rules restrict any use of the information to criminally investigate or prosecute any alcohol or drug abuse patient.[facility] HospitalIn the event this information is protected by the Federal Confidentiality of Alcohol and Drug Abuse Patient Records regulations: The Federal rules restrict any use of the information to criminally investigate or prosecute any alcohol or drug abuse patient.[facility] HospitalIn the event this information is protected by the Federal Confidentiality of Alcohol and Drug Abuse Patient Records regulations: The Federal rules restrict any use of the information to criminally investigate or prosecute any alcohol or drug abuse patient.[facility] HospitalIn the event this information is protected by the Federal Confidentiality of Alcohol and Drug Abuse Patient Records regulations: The Federal rules restrict any use of the information to criminally investigate or prosecute any alcohol or drug abuse patient.[facility] HospitalIn the event this information is protected by the Federal Confidentiality of Alcohol and Drug Abuse Patient Records regulations: The Federal rules restrict any use of the information to criminally investigate or prosecute any alcohol or drug abuse patient.[facility] HospitalIn the event this information is protected by the Federal Confidentiality of Alcohol and Drug Abuse Patient Records regulations: The Federal rules restrict any use of the information to criminally investigate or prosecute any alcohol or drug abuse patient.[facility] HospitalIn the event this information is protected by the Federal Confidentiality of Alcohol and Drug Abuse Patient Records regulations: The Federal rules restrict any use of the information to criminally investigate or prosecute any alcohol or drug abuse patient.[facility] HospitalIn the event this information is protected by the Federal Confidentiality of Alcohol and Drug Abuse Patient Records regulations: The Federal rules restrict any use of the information to criminally investigate or prosecute any alcohol or drug abuse patient.[facility] HospitalIn the event this information is protected by the Federal Confidentiality of Alcohol and Drug Abuse Patient Records regulations: The Federal rules restrict any use of the information to criminally investigate or prosecute any alcohol or drug abuse patient.[facility] HospitalIn the event this information is protected by the Federal Confidentiality of Alcohol and Drug Abuse Patient Records regulations: The Federal rules restrict any use of the information to criminally investigate or prosecute any alcohol or drug abuse patient.[facility] HospitalIn the event this information is protected by the Federal Confidentiality of Alcohol and Drug Abuse Patient Records regulations: The Federal rules restrict any use of the information to criminally investigate or prosecute any alcohol or drug abuse patient.[facility] HospitalIn the event this information is protected by the Federal Confidentiality of Alcohol and Drug Abuse Patient Records regulations: The Federal rules restrict any use of the information to criminally investigate or prosecute any alcohol or drug abuse patient.[facility] HospitalIn the event this information is protected by the Federal Confidentiality of Alcohol and Drug Abuse Patient Records regulations: The Federal rules restrict any use of the information to criminally investigate or prosecute any alcohol or drug abuse patient.[facility] HospitalIn the event this information is protected by the Federal Confidentiality of Alcohol and Drug Abuse Patient Records regulations: The Federal rules restrict any use of the information to criminally investigate or prosecute any alcohol or drug abuse patient.[facility] HospitalIn the event this information is protected by the Federal Confidentiality of Alcohol and Drug Abuse Patient Records regulations: The Federal rules restrict any use of the information to criminally investigate or prosecute any alcohol or drug abuse patient.[facility] HospitalIn the event this information is protected by the Federal Confidentiality of Alcohol and Drug Abuse Patient Records regulations: The Federal rules restrict any use of the information to criminally investigate or prosecute any alcohol or drug abuse patient.[facility] HospitalIn the event this information is protected by the Federal Confidentiality of Alcohol and Drug Abuse Patient Records regulations: The Federal rules restrict any use of the information to criminally investigate or prosecute any alcohol or drug abuse patient.[facility] HospitalIn the event this information is protected by the Federal Confidentiality of Alcohol and Drug Abuse Patient Records regulations: The Federal rules restrict any use of the information to criminally investigate or prosecute any alcohol or drug abuse patient.[facility] HospitalIn the event this information is protected by the Federal Confidentiality of Alcohol and Drug Abuse Patient Records regulations: The Federal rules restrict any use of the information to criminally investigate or prosecute any alcohol or drug abuse patient.[facility] HospitalIn the event this information is protected by the Federal Confidentiality of Alcohol and Drug Abuse Patient Records regulations: The Federal rules restrict any use of the information to criminally investigate or prosecute any alcohol or drug abuse patient.[facility] HospitalIn the event this information is protected by the Federal Confidentiality of Alcohol and Drug Abuse Patient Records regulations: The Federal rules restrict any use of the information to criminally investigate or prosecute any alcohol or drug abuse patient.[facility] HospitalIn the event this information is protected by the Federal Confidentiality of Alcohol and Drug Abuse Patient Records regulations: The Federal rules restrict any use of the information to criminally investigate or prosecute any alcohol or drug abuse patient.[facility] HospitalIn the event this information is protected by the Federal Confidentiality of Alcohol and Drug Abuse Patient Records regulations: The Federal rules restrict any use of the information to criminally investigate or prosecute any alcohol or drug abuse patient.[facility] HospitalIn the event this information is protected by the Federal Confidentiality of Alcohol and Drug Abuse Patient Records regulations: The Federal rules restrict any use of the information to criminally investigate or prosecute any alcohol or drug abuse patient.[facility] HospitalIn the event this information is protected by the Federal Confidentiality of Alcohol and Drug Abuse Patient Records regulations: The Federal rules restrict any use of the information to criminally investigate or prosecute any alcohol or drug abuse patient.[facility] HospitalIn the event this information is protected by the Federal Confidentiality of Alcohol and Drug Abuse Patient Records regulations: The Federal rules restrict any use of the information to criminally investigate or prosecute any alcohol or drug abuse patient.[facility] HospitalIn the event this information is protected by the Federal Confidentiality of Alcohol and Drug Abuse Patient Records regulations: The Federal rules restrict any use of the information to criminally investigate or prosecute any alcohol or drug abuse patient.[facility] HospitalIn the event this information is protected by the Federal Confidentiality of Alcohol and Drug Abuse Patient Records regulations: The Federal rules restrict any use of the information to criminally investigate or prosecute any alcohol or drug abuse patient.[facility] HospitalIn the event this information is protected by the Federal Confidentiality of Alcohol and Drug Abuse Patient Records regulations: The Federal rules restrict any use of the information to criminally investigate or prosecute any alcohol or drug abuse patient.[facility] HospitalIn the event this information is protected by the Federal Confidentiality of Alcohol and Drug Abuse Patient Records regulations: The Federal rules restrict any use of the information to criminally investigate or prosecute any alcohol or drug abuse patient.[facility] HospitalIn the event this information is protected by the Federal Confidentiality of Alcohol and Drug Abuse Patient Records regulations: The Federal rules restrict any use of the information to criminally investigate or prosecute any alcohol or drug abuse patient.[facility] HospitalIn the event this information is protected by the Federal Confidentiality of Alcohol and Drug Abuse Patient Records regulations: The Federal rules restrict any use of the information to criminally investigate or prosecute any alcohol or drug abuse patient.[facility] HospitalIn the event this information is protected by the Federal Confidentiality of Alcohol and Drug Abuse Patient Records regulations: The Federal rules restrict any use of the information to criminally investigate or prosecute any alcohol or drug abuse patient.[facility] HospitalIn the event this information is protected by the Federal Confidentiality of Alcohol and Drug Abuse Patient Records regulations: The Federal rules restrict any use of the information to criminally investigate or prosecute any alcohol or drug abuse patient.[facility] HospitalIn the event this information is protected by the Federal Confidentiality of Alcohol and Drug Abuse Patient Records regulations: The Federal rules restrict any use of the information to criminally investigate or prosecute any alcohol or drug abuse patient.[facility] HospitalIn the event this information is protected by the Federal Confidentiality of Alcohol and Drug Abuse Patient Records regulations: The Federal rules restrict any use of the information to criminally investigate or prosecute any alcohol or drug abuse patient.[facility] HospitalIn the event this information is protected by the Federal Confidentiality of Alcohol and Drug Abuse Patient Records regulations: The Federal rules restrict any use of the information to criminally investigate or prosecute any alcohol or drug abuse patient.[facility] HospitalIn the event this information is protected by the Federal Confidentiality of Alcohol and Drug Abuse Patient Records regulations: The Federal rules restrict any use of the information to criminally investigate or prosecute any alcohol or drug abuse patient.[facility] HospitalIn the event this information is protected by the Federal Confidentiality of Alcohol and Drug Abuse Patient Records regulations: The Federal rules restrict any use of the information to criminally investigate or prosecute any alcohol or drug abuse patient.[facility] HospitalIn the event this information is protected by the Federal Confidentiality of Alcohol and Drug Abuse Patient Records regulations: The Federal rules restrict any use of the information to criminally investigate or prosecute any alcohol or drug abuse patient.[facility] HospitalIn the event this information is protected by the Federal Confidentiality of Alcohol and Drug Abuse Patient Records regulations: The Federal rules restrict any use of the information to criminally investigate or prosecute any alcohol or drug abuse patient.[facility] HospitalIn the event this information is protected by the Federal Confidentiality of Alcohol and Drug Abuse Patient Records regulations: The Federal rules restrict any use of the information to criminally investigate or prosecute any alcohol or drug abuse patient.[facility] HospitalIn the event this information is protected by the Federal Confidentiality of Alcohol and Drug Abuse Patient Records regulations: The Federal rules restrict any use of the information to criminally investigate or prosecute any alcohol or drug abuse patient.[facility] HospitalIn the event this information is protected by the Federal Confidentiality of Alcohol and Drug Abuse Patient Records regulations: The Federal rules restrict any use of the information to criminally investigate or prosecute any alcohol or drug abuse patient.[facility] HospitalIn the event this information is protected by the Federal Confidentiality of Alcohol and Drug Abuse Patient Records regulations: The Federal rules restrict any use of the information to criminally investigate or prosecute any alcohol or drug abuse patient.[facility] HospitalIn the event this information is protected by the Federal Confidentiality of Alcohol and Drug Abuse Patient Records regulations: The Federal rules restrict any use of the information to criminally investigate or prosecute any alcohol or drug abuse patient.[facility] HospitalIn the event this information is protected by the Federal Confidentiality of Alcohol and Drug Abuse Patient Records regulations: The Federal rules restrict any use of the information to criminally investigate or prosecute any alcohol or drug abuse patient.[facility] HospitalIn the event this information is protected by the Federal Confidentiality of Alcohol and Drug Abuse Patient Records regulations: The Federal rules restrict any use of the information to criminally investigate or prosecute any alcohol or drug abuse patient.[facility] HospitalIn the event this information is protected by the Federal Confidentiality of Alcohol and Drug Abuse Patient Records regulations: The Federal rules restrict any use of the information to criminally investigate or prosecute any alcohol or drug abuse patient.[facility] HospitalIn the event this information is protected by the Federal Confidentiality of Alcohol and Drug Abuse Patient Records regulations: The Federal rules restrict any use of the information to criminally investigate or prosecute any alcohol or drug abuse patient.[facility] HospitalIn the event this information is protected by the Federal Confidentiality of Alcohol and Drug Abuse Patient Records regulations: The Federal rules restrict any use of the information to criminally investigate or prosecute any alcohol or drug abuse patient.[facility] HospitalIn the event this information is protected by the Federal Confidentiality of Alcohol and Drug Abuse Patient Records regulations: The Federal rules restrict any use of the information to criminally investigate or prosecute any alcohol or drug abuse patient.[facility] HospitalIn the event this information is protected by the Federal Confidentiality of Alcohol and Drug Abuse Patient Records regulations: The Federal rules restrict any use of the information to criminally investigate or prosecute any alcohol or drug abuse patient.[facility] HospitalIn the event this information is protected by the Federal Confidentiality of Alcohol and Drug Abuse Patient Records regulations: The Federal rules restrict any use of the information to criminally investigate or prosecute any alcohol or drug abuse patient.[facility] HospitalIn the event this information is protected by the Federal Confidentiality of Alcohol and Drug Abuse Patient Records regulations: The Federal rules restrict any use of the information to criminally investigate or prosecute any alcohol or drug abuse patient.[facility] HospitalIn the event this information is protected by the Federal Confidentiality of Alcohol and Drug Abuse Patient Records regulations: The Federal rules restrict any use of the information to criminally investigate or prosecute any alcohol or drug abuse patient.[facility] HospitalIn the event this information is protected by the Federal Confidentiality of Alcohol and Drug Abuse Patient Records regulations: The Federal rules restrict any use of the information to criminally investigate or prosecute any alcohol or drug abuse patient.[facility] HospitalIn the event this information is protected by the Federal Confidentiality of Alcohol and Drug Abuse Patient Records regulations: The Federal rules restrict any use of the information to criminally investigate or prosecute any alcohol or drug abuse patient.[facility] HospitalIn the event this information is protected by the Federal Confidentiality of Alcohol and Drug Abuse Patient Records regulations: The Federal rules restrict any use of the information to criminally investigate or prosecute any alcohol or drug abuse patient.[facility] HospitalIn the event this information is protected by the Federal Confidentiality of Alcohol and Drug Abuse Patient Records regulations: The Federal rules restrict any use of the information to criminally investigate or prosecute any alcohol or drug abuse patient.[facility] HospitalIn the event this information is protected by the Federal Confidentiality of Alcohol and Drug Abuse Patient Records regulations: The Federal rules restrict any use of the information to criminally investigate or prosecute any alcohol or drug abuse patient.[facility] HospitalIn the event this information is protected by the Federal Confidentiality of Alcohol and Drug Abuse Patient Records regulations: The Federal rules restrict any use of the information to criminally investigate or prosecute any alcohol or drug abuse patient.[facility] HospitalIn the event this information is protected by the Federal Confidentiality of Alcohol and Drug Abuse Patient Records regulations: The Federal rules restrict any use of the information to criminally investigate or prosecute any alcohol or drug abuse patient.[facility] HospitalIn the event this information is protected by the Federal Confidentiality of Alcohol and Drug Abuse Patient Records regulations: The Federal rules restrict any use of the information to criminally investigate or prosecute any alcohol or drug abuse patient.[facility] HospitalIn the event this information is protected by the Federal Confidentiality of Alcohol and Drug Abuse Patient Records regulations: The Federal rules restrict any use of the information to criminally investigate or prosecute any alcohol or drug abuse patient.[facility] HospitalIn the event this information is protected by the Federal Confidentiality of Alcohol and Drug Abuse Patient Records regulations: The Federal rules restrict any use of the information to criminally investigate or prosecute any alcohol or drug abuse patient.[facility] Reason for Visit (unrecogniz ed section and content) Reason Comments Medication Problem Reason Comments Medication Authorization [facility] Reason Comments Immunodeficiency Reason Comments Return Provider Call Reason Comments Prescription Refills [facility] Reason Comments New Patient Specialty Diagnoses / Procedures Referred By Contac t Referred To Contact Neurology Diagnoses POTS (postural orthostatic tachycardia syndrome) Procedures CONSULT TO NEUROLOGY OFFICE/OUTPATIENT [facility] 60-74 MINUTES Arsh Kiser MD, PhD [address] [phone] Referral ID Status Reason Start Date Expiration Date V isits Requested Visits Authorized [id number] Closed PCP Requested Referral 04/25/2021 04/25/2022 1 1 Reason Comments 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 Specialty Diagnoses / Procedures Referred By Contac t Referred To Contact Ophthalmology Diagnoses Tension headache Blurry vision, bilateral Procedures CONSULT TO OPHTHALMOLOGY OFFICE/OUTPATIENT [facility] 60-74 MINUTES Saroj Foss APRN.OVERLOCK SEWING MACHINE OPERATOR [address] [place] [address] Referral ID Status Reason Start Date Expiration Date V isits Requested Visits Authorized [id number] Closed PCP Requested Referral 09/20/2021 09/20/2022 1 1 Specialty Diagnoses / Procedures Referred By Contac t Referred To Contact MR IMAGING Diagnoses Demyelinating disease of central nervous system (HCC) Procedures MRI CERVICAL SPINE WO/W IVCON MRI SPINAL CANAL CERVICAL W/O & W/CONTR MATRL Saroj Foss APRN.OVERLOCK SEWING MACHINE OPERATOR [address] [phone] [facility] Referral ID Status Reason Start Date Expiration Date V isits Requested Visits Authorized [id number] Closed Auto-Generate d Referral 09/20/2021 11/21/2021 1 1 Specialty Diagnoses / Procedures Referred By Contac t Referred To Contact MR IMAGING Diagnoses Demyelinating disease of central nervous system (HCC) Procedures MRI BRAIN WO/W IVCON MRI BRAIN BRAIN STEM W/O W/CONTRAST MATERIAL Saroj oFss, DIRECTOR OF CORPORATE SALES.OVERLOCK SEWING MACHINE OPERATOR [address] [place] [address] Mr Imaging Referral ID Status Reason Start Date Expiration Date V isits Requested Visits Authorized [id number] Closed Auto-Generate d Referral 09/20/2021 12/03/2021 1 1 Reason Comments Patient Question Reason Comments Patient Update Reason Comments Established Patient Reason Comments New Patient Specialty Diagnoses / Procedures Referred By Contac t Referred To Contact Neurology Diagnoses Tremulousness Procedures CONSULT TO NEUROLOGY OFFICE/OUTPATIENT [facility] 60-74 MINUTES Saroj Foss, DIRECTOR OF CORPORATE SALES.OVERLOCK SEWING MACHINE OPERATOR [address] [place] [address] Referral ID Status Reason Start Date Expiration Date V isits Requested Visits Authorized [id number] Closed PCP Requested Referral 11/23/2021 11/23/2022 1 1 Reason Comments Plan of Care [facility] Reason Comments Patient Update [facility] Reason Comments Prior Authorization [facility] Reason Comments Immunodeficiency Reason Comments Surveillance Analyst - Other Reason Comments Consult Reason Comments Surveillance Analyst - Other ED report Reason Comments Radiology [place] Reason Comments Appointment Reason Comments Follow Up Phone Call Post Discharge F/U - attempt made. No answer. Reason Comments New Patient Specialty Diagnoses / Procedures Referred By Contac t Referred To Contact Neurology Diagnoses Chronic fatigue Sleep walking disorder Procedures CONSULT TO NEUROLOGY OFFICE/OUTPATIENT [facility] 60-74 MINUTES Saroj Foss, DIRECTOR OF CORPORATE SALES.OVERLOCK SEWING MACHINE OPERATOR [address] [place] [address] Referral ID Status Reason Start Date Expiration Date V isits Requested Visits Authorized [id number] Closed PCP Requested Referral 11/23/2021 11/23/2022 1 1 Reason Comments Refill Request Reason Comments Prescription Faxed [facility] Reason Comments No Show Reason Comments Established Patient Specialty Diagnoses / Procedures Referred By Contac t Referred To Contact Diagnoses Tremulousness Procedures PROVIDER ORDERED FOLLOW UP OFFICE/OUTPATIENT [facility] 60-74 MINUTES Chito Noyola MD [address] [place] [address] Referral ID Status Reason Start Date Expiration Date V isits Requested Visits Authorized [id number] Closed PCP Requested Referral 11/29/2021 02/27/2022 1 1 Reason Comments Medication Authorization [facility] Reason Comments Established Patient Reason Comments Surveillance Analyst - Other Gastroenterolog ist Reason Onset Date Comments [facility] 04/11/2022 Specialty Diagnoses / Procedures Referred By Contac t Referred To Contact [facility] Diagnoses Proximal leg weakness Procedures [facility](NEURO/NI) NERVE CONDUCTION STUDIES 9-10 STUDIES Saroj Foss, DIRECTOR OF CORPORATE SALES.OVERLOCK SEWING MACHINE OPERATOR [address] [place] [address] Neurological [place] [address] [place] [address] Referral ID Status Reason Start Date Expiration Date V isits Requested Visits Authorized [id number] Closed Auto-Generate d Referral 03/10/2022 02/18/2023 1 1 Reason Comments Surveillance Analyst - Other Gastroparesis c linic: chart review; [...] laboratory test Procedures CONSULT TO NEUROLOGY OFFICE/OUTPATIENT [facility] 60-74 MINUTES Saroj Foss, DIRECTOR OF CORPORATE SALES.OVERLOCK SEWING MACHINE OPERATOR [address] [place] [address] Referral ID Status Reason Start Date Expiration Date V isits Requested Visits Authorized [id number] Closed PCP Requested Referral 06/27/2022 06/27/2023 1 1 Reason Comments Approval Letter Overnight Brainwave Study (EEG) Reason Comments Follow Up Phone Call All clear Specialty Diagnoses / Procedures Referred By Contac t Referred To Contact Diagnoses Stiffman syndrome Procedures CONSULT TO [facility] OFFICE/OUTPATIENT [facility] 60-74 MINUTES Vesta Mares, DIRECTOR OF CORPORATE SALES.OVERLOCK SEWING MACHINE OPERATOR [address] [place] [address] Referral ID Status Reason Start Date Expiration Date V isits Requested Visits Authorized [id number] Closed PCP Requested Referral 07/16/2022 07/16/2023 1 [...] HIGH MDM 60-74 MINUTES Bebeto Perry MD [address] [phone] [facility] [place] [address] [place], [place] [phone] Referral ID Status Reason Start Date Expiration Date V isits Requested Visits Authorized [id number] Closed Auto-Generate d Referral 09/29/2022 02/18/2023 1 1 Reason Comments OT EVAL Specialty Diagnoses / Procedures Referred By Contac t Referred To Contact Occupational Therapy / OCCUPATIONAL THERAPY Diagnoses Functional neurological symptom disorder with weakness or paralysis Incoordination of extremity Procedures CONSULT TO AIRCRAFT SYSTEMS REPAIRER Bebeto Perry MD [address] [place] [address] [place] [address] [place] [address] Referral ID Status Reason Start Date Expiration Date Visits Re quested Visits Authorized [id number] Closed 09/29/2022 02/18/2023 1 1 Reason Comments Faxed Prescription [facility] Reason Comments PT Eval Specialty Diagnoses / Procedures Referred By Contac t Referred To Contact Physical Therapy / PHYSICAL THERAPY Diagnoses Functional neurological symptom disorder with weakness or paralysis Gait instability Procedures CONSULT TO PHYSICAL THERAPY Bebeto Perry MD [address] [phone] [place] [address] Referral ID Status Reason Start Date Expiration Date Visits Re quested Visits Authorized [id number] Closed 09/29/2022 02/18/2023 1 1 Reason Comments Faxed Prescription [facility] Reason Comments Faxed Clinical Notes [facility] Reason Comments Consult Specialty Diagnoses / Procedures Referred By Contac t Referred To Contact Psychology Diagnoses Functional neurological symptom disorder with weakness or paralysis Procedures CONSULT TO PSYCHOLOGY OFFICE/OUTPATIENT [facility] MDM 60-74 MINUTES Bebeto Perry MD [address] [phone] Referral ID Status Reason Start Date Expiration Date Visits Requested Visits Authorized [id number] Pending Review PCP Requested Referral 08/10/2022 08/10/2023 1 1 Reason Comments Consult Specialty Diagnoses / Procedures Referred By Contac t Referred To Contact Diagnoses Functional neurological symptom disorder with weakness or paralysis Procedures CONSULT TO FUNCTIONAL MOVEMENT DISORDERS (FMD) OFFICE/OUTPATIENT [facility] MDM 60-74 MINUTES Bebeto Perry MD [address] [place] [address] Referral ID Status Reason Start Date Expiration Date V isits Requested Visits Authorized [id number] Closed PCP Requested Referral 08/10/2022 08/10/2023 1 1 Reason Comments Pre-Op Exam Reason Comments Follow Up Reason Comments Anxiety Posttraumatic Stress Disorder Specialty Diagnoses / Procedures Referred By Contac t Referred To Contact Psychiatry / ADULT PSYCHIATRY Diagnoses virtual follow up Procedures VIDEO PSYC/PSYL EST Antoine Costa MD [address] [place] [address] Antoine Costa MD [address] [place] [address] Referral ID Status Reason Start Date Expiration Date V isits Requested Visits Authorized [id number] Pending Review 01/22/2023 02/19/2024 99 [phone] Reason Comments Recheck Care Teams (unrecognized sec tion and content) Mitigation Supervisor Relationship Specialty Start Date End Date Lizy Soria DO PCP - General Family Practice 08/03/10 Mitigation Supervisor Relationship Specialty Start Date End Date Lizy Soria DO PCP - General Family Practice 08/03/10 Mitigation Supervisor Relationship Specialty Start Date End Date Lizy Soria DO PCP - General Family Practice 08/03/10 Team Status: Inactive Member Role Status Dates Lizy Soria DO Primary Care Provider Active Antonio Reyes MD Emergency Provider Active Team Status: Active Member Role Status Dates Lizy Soria DO Primary Care Provider Active Mitigation Supervisor Relationship Specialty Start Date End Date Darren, Lizy Jain, DO PCP - General Family Practice 08/03/10 Mitigation Supervisor Relationship Specialty Start Date End Date Darren, Lizy Jain, DO PCP - General Family Practice 08/03/10 Mitigation Supervisor Relationship Specialty Start Date End Date Darren, Lizy Jain, DO PCP - General Family Practice 08/03/10 Mitigation Supervisor Relationship Specialty Start Date End Date Darren, Lizy Jain, DO PCP - General Family Practice 08/03/10 Mitigation Supervisor Relationship Specialty Start Date End Date Darren, Lizy Jain, DO PCP - General Family Practice 08/03/10 Mitigation Supervisor Relationship Specialty Start Date End Date Darren, Lizy Jain DO PCP - General Family Practice 08/03/10 Mitigation Supervisor Relationship Specialty Start Date End Date Darren, Lizy Jain DO PCP - General Family Practice 08/03/10 Mitigation Supervisor Relationship Specialty Start Date End Date Darren, Lizy Jain DO PCP - General Family Medicine 08/03/10 Mitigation Supervisor Relationship Specialty Start Date End Date Darren, Lizy Jain DO PCP - General Family Medicine 08/03/10 Mitigation Supervisor Relationship Specialty Start Date End Date Darren, Lizy Jain DO PCP - General Family Medicine 08/03/10 Mitigation Supervisor Relationship Specialty Start Date End Date Darren, Lizy Jain DO PCP - General Family Medicine 08/03/10 Mitigation Supervisor Relationship Specialty Start Date End Date Darren, Lizy S, DO PCP - General Family Medicine 08/03/10 Mitigation Supervisor Relationship Specialty Start Date End Date Darren, Lizy Jain, DO PCP - General Family Medicine 08/03/10 Mitigation Supervisor Relationship Specialty Start Date End Date Darren, Lizy Jain, DO PCP - General Family Medicine 08/03/10 Mitigation Supervisor Relationship Specialty Start Date End Date Darren, Lizy Jain, DO PCP - General Family Medicine 08/03/10 Mitigation Supervisor Relationship Specialty Start Date End Date Darren, Lizy Jain, DO PCP - General Family Medicine 08/03/10 Mitigation Supervisor Relationship Specialty Start Date End Date Darren, Lizy Jain DO PCP - General Family Medicine 08/03/10 Mitigation Supervisor Relationship Specialty Start Date End Date Darren, Lizy Jain, DO PCP - General Family Medicine 08/03/10 Mitigation Supervisor Relationship Specialty Start Date End Date Darren, Lizy Jain, DO PCP - General Family Medicine 08/03/10 Mitigation Supervisor Relationship Specialty Start Date End Date Darren, Lizy Jain, DO PCP - General Family Medicine 08/03/10 Mitigation Supervisor Relationship Specialty Start Date End Date Darren, Lizy Jain, DO PCP - General Family Medicine 08/03/10 Mitigation Supervisor Relationship Specialty Start Date End Date Darren, Lizy Jain, DO PCP - General Family Medicine 08/03/10 Mitigation Supervisor Relationship Specialty Start Date End Date Darren, Lizy Jain DO PCP - General Family Medicine 08/03/10 Mitigation Supervisor Relationship Specialty Start Date End Date Darren, Lizy Jain, DO PCP - General Family Medicine 08/03/10 Mitigation Supervisor Relationship Specialty Start Date End Date Darren, Lizy Jain DO PCP - General Family Medicine 08/03/10 Mitigation Supervisor Relationship Specialty Start Date End Date Darren, Lizy Jain DO PCP - General Family Medicine 08/03/10 Mitigation Supervisor Relationship Specialty Start Date End Date Darren, Lizy Jain DO PCP - General Family Medicine 08/03/10 Mitigation Supervisor Relationship Specialty Start Date End Date Darren, Lizy Jain DO PCP - General Family Medicine 08/03/10 Mitigation Supervisor Relationship Specialty Start Date End Date Darren, Lizy Jain DO PCP - General Family Medicine 08/03/10 Mitigation Supervisor Relationship Specialty Start Date End Date Darren, Lizy Jain DO PCP - General Family Medicine 08/03/10 Mitigation Supervisor Relationship Specialty Start Date End Date Darren, Lizy Jain DO PCP - General Family Medicine 08/03/10 Mitigation Supervisor Relationship Specialty Start Date End Date Darren, Lizy Jain DO PCP - General Family Medicine 08/03/10 Kathryn Gutierrez RN [address] [place] [address] Specialty Surveillance Analyst [facility] 04/03/22 Mitigation Supervisor Relationship Specialty Start Date End Date Darren, Lizy Jain DO PCP - General Family Medicine 08/03/10 Kathryn Gutierrez RN [address] [place] [address] Specialty Surveillance Analyst Hematology 04/03/22 Mitigation Supervisor Relationship Specialty Start Date End Date Darren, Lizy Jain DO PCP - General Family Medicine 08/03/10 Kathryn Gutierrez, RN [address] [place] [address] Specialty Surveillance Analyst Hematology 04/03/22 Mitigation Supervisor Relationship Specialty Start Date End Date Darren, Lizy Jain DO PCP - General Family Medicine 08/03/10 Kathryn Gutierrez, RN [address] [place] [address] Specialty Surveillance Analyst Hematology 04/03/22 Mitigation Supervisor Relationship Specialty Start Date End Date Darren, Lizy Jain DO PCP - General Family Medicine 08/03/10 Kathryn Gutierrez, RN [address] [place] [address] Specialty Surveillance Analyst Hematology 04/03/22 Mitigation Supervisor Relationship Specialty Start Date End Date Darren, Lizy Jain DO PCP - General Family Medicine 08/03/10 Kathryn Gutierrez, RN [address] [place] [address] Specialty Surveillance Analyst Hematology 04/03/22 Mitigation Supervisor Relationship Specialty Start Date End Date Darren, Lizy Jain DO PCP - General Family Medicine 08/03/10 Kathryn Gutierrez, RN [address] [place] [address] Specialty Surveillance Analyst Hematology 04/03/22 Mitigation Supervisor Relationship Specialty Start Date End Date Darren, Lizy Jain DO PCP - General Family Medicine 08/03/10 Kathryn Gutierrez, RN [address] [place] [address] Specialty Surveillance Analyst Hematology 04/03/22 Mitigation Supervisor Relationship Specialty Start Date End Date Darren, Lizy Jain DO PCP - General Family Medicine 08/03/10 Kathryn Gutierrez, RN [address] [place] [address] Specialty Surveillance Analyst Hematology 04/03/22 Mitigation Supervisor Relationship Specialty Start Date End Date Lizy Soria DO PCP - General Family Medicine 08/03/10 Kathryn Gutierrez, RN [address] [place] [address] Specialty Surveillance Analyst Hematology 04/03/22 Mitigation Supervisor Relationship Specialty Start Date End Date Lizy Soria DO PCP - General Family Medicine 08/03/10 Kathryn Gutierrez, RN [address] [address] Specialty Surveillance Analyst Hematology 04/03/22 Mitigation Supervisor Relationship Specialty Start Date End Date Lizy Soria DO PCP - General Family Medicine 08/03/10 Kathryn Gutierrez, RN [address] [address] Specialty Surveillance Analyst Hematology 04/03/22 Mitigation Supervisor Relationship Specialty Start Date End Date Lizy Soria DO PCP - General Family Medicine 08/03/10 Kathryn Gutierrez, RN [address] [place] [address] Specialty Surveillance Analyst Hematology 04/03/22 Mitigation Supervisor Relationship Specialty Start Date End Date Lizy Soria DO PCP - General Family Medicine 08/03/10 Kathryn Gutierrez, RN [address] [place] [address] Specialty Surveillance Analyst Hematology 04/03/22 Mitigation Supervisor Relationship Specialty Start Date End Date Lizy Soria DO PCP - General Family Medicine 08/03/10 Kathryn Gutierrez, ARMANI [address] [place] [address] Specialty Surveillance Analyst Hematology 04/03/22 Mitigation Supervisor Relationship Specialty Start Date End Date Darren, Lizy Jain DO PCP - General Family Medicine 08/03/10 Kathryn Gutierrez RN [address] [place] [id number] Specialty Surveillance Analyst Hematology 04/03/22 Mitigation Supervisor Relationship Specialty Start Date End Date Darren, Lizy Jain DO PCP - General Family Medicine 08/03/10 Kathryn Gutierrez, ARMANI [address] [place] [address] Specialty Surveillance Analyst Hematology 04/03/22 Mitigation Supervisor Relationship Specialty Start Date End Date Darren, Lizy Jain DO PCP - General Family Medicine 08/03/10 Kathryn Gutierrez, RN [address] [place] [address] Specialty Surveillance Analyst Hematology 04/03/22 Mitigation Supervisor Relationship Specialty Start Date End Date Darren, Lizy Jain DO PCP - General Family Medicine 08/03/10 Kathryn Gutierrez, ARMANI [address] [place] [address] Specialty Surveillance Analyst Hematology 04/03/22 Mitigation Supervisor Relationship Specialty Start Date End Date Darren, Lizy Jain DO PCP - General Family Medicine 08/03/10 Kathryn Gutierrez, RN [address] [place] [address] Specialty Surveillance Analyst Hematology 04/03/22 Mitigation Supervisor Relationship Specialty Start Date End Date Lizy Soria DO PCP - General Family Medicine 08/03/10 Kathryn Gutierrez, RN [address] [place] [id number] Specialty Surveillance Analyst Hematology 04/03/22 Mitigation Supervisor Relationship Specialty Start Date End Date Darren, Lizy Jain DO PCP - General Family Medicine 08/03/10 Kathryn Gutierrez, RN [address] [place] [id number] Specialty Surveillance Analyst Hematology 04/03/22 Mitigation Supervisor Relationship Specialty Start Date End Date Darren, Lizy Jain DO PCP - General Family Medicine 08/03/10 Kathryn Gutierrez, RN [address] [place] [address] [phone] Specialty Surveillance Analyst Hematology 04/03/22 Mitigation Supervisor Relationship Specialty Start Date End Date Darren, Lizy Jain DO PCP - General Family Medicine 08/03/10 Kathryn Gutierrez, RN [address] [place] [address] [id number] Specialty Surveillance Analyst Hematology 04/03/22 Mitigation Supervisor Relationship Specialty Start Date End Date Darren, Lizy Jain DO PCP - General Family Medicine 08/03/10 Kathryn Gutierrez, RN [address] [place] [address] [id number] Specialty Surveillance Analyst Hematology 04/03/22 Mitigation Supervisor Relationship Specialty Start Date End Date Darren, Lizy Jain DO PCP - General Family Medicine 08/03/10 Kathryn Gutierrez, RN [address] [place] [address] [id number] Specialty Surveillance Analyst Hematology 04/03/22 Mitigation Supervisor Relationship Specialty Start Date End Date Lizy Soria DO PCP - General Family Medicine 08/03/10 Kathryn Gutierrez, RN [address] [place] [address] [id number] Specialty Surveillance Analyst Hematology 04/03/22 Mitigation Supervisor Relationship Specialty Start Date End Date Lizy Soria DO PCP - General Family Medicine 08/03/10 Kathryn Gutierrez, RN [address] [place] [address] [id number] Specialty Surveillance Analyst Hematology 04/03/22 Mitigation Supervisor Relationship Specialty Start Date End Date Lizy Soria DO PCP - General Family Medicine 08/03/10 Kathryn Gutierrez RN [address] [place] [address] [phone] Specialty Surveillance Analyst Hematology 04/03/22 Mitigation Supervisor Relationship Specialty Start Date End Date Lizy Soria DO PCP - General Family Medicine 08/03/10 Kathryn Gutierrez, RN [address] [place] [address] [phone] Specialty Surveillance Analyst Hematology 04/03/22 Mitigation Supervisor Relationship Specialty Start Date End Date Lizy Soria DO PCP - General Family Medicine 08/03/10 Kathryn Gutierrez, RN [address] [place] [address] Specialty Surveillance Analyst Hematology 04/03/22 Mitigation Supervisor Relationship Specialty Start Date End Date Lizy Soria DO PCP - General Family Medicine 08/03/10 Kathryn Gutierrez, RN [address] [place] [address] Specialty Surveillance Analyst Hematology 04/03/22 Mitigation Supervisor Relationship Specialty Start Date End Date Lizy Soria DO PCP - General Family Medicine 08/03/10 Kathryn Gutierrez, RN [address] [place] [address] Specialty Surveillance Analyst Hematology 04/03/22 Mitigation Supervisor Relationship Specialty Start Date End Date Lizy Soria DO PCP - General Family Medicine 08/03/10 Kathryn Gutierrez, ARMANI [address] [place] [phone] Specialty Surveillance Analyst Hematology 04/03/22 Mitigation Supervisor Relationship Specialty Start Date End Date Lizy Soria DO PCP - General Family Medicine 08/03/10 Kathryn Gutierrez, ARMANI [address] [place] [phone] Specialty Surveillance Analyst Hematology 04/03/22 Mitigation Supervisor Relationship Specialty Start Date End Date Lizy Soria DO PCP - General Family Medicine 08/03/10 Kathryn Gutierrez, RN [address] [place] [address] [phone] Specialty Surveillance Analyst Hematology 04/03/22 Goals (unrecognized section and content) Goals may be documented in a n alternate section INFORMATION SOURCE (unrecogn ized section and content) DATE CREATED AUTHOR 08/05/2021 [facility] DATE CREATED AUTHOR AUTHOR'S ORGANIZ ATION 08/05/2021 [facility] DATE CREATED AUTHOR AUTHOR'S ORGANIZ ATION 10/14/2021 [facility] DATE CREATED AUTHOR AUTHOR'S ORGANIZ ATION 02/09/2022 [facility] DATE CREATED AUTHOR AUTHOR'S ORGANIZ ATION 10/06/2022 [facility] DATE CREATED AUTHOR AUTHOR'S ORGANIZ ATION 10/18/2022 [facility] DATE CREATED AUTHOR AUTHOR'S ORGANIZ ATION 12/07/2022 [facility] DATE CREATED AUTHOR AUTHOR'S ORGANIZ ATION 02/09/2023 Yamini Nagy [facility] DATE CREATED AUTHOR AUTHOR'S ORGANIZ ATION 02/25/2023 [facility] DATE CREATED AUTHOR AUTHOR'S ORGANIZ ATION 03/09/2023 [facility] FOR RECORDS PERTAINING TO PATIENTS WHO ARE [...] BE BASED ON THE PRIMARY CLINICAL RECORDS. [facility] [employer] [facility]. provides no warranty or guarantee of the accuracy or completeness of information in this document.
[2023-03-18 15:07] LABS: ACTH, Plasma <1.5 pg/mL (7.2-63.3)
== END 2023-03-16 16:11 | disposition home or self-care (01) ==
LOC: LAB 16:10
PROVIDERS: PCP Family Medicine; Visit Provider Family Medicine
DX: R63.5 Abnormal weight gain (principal); D80.1 Nonfamilial hypogammaglobulinemia; D83.9 Common variable immunodeficiency, unspecified; D64.3 Other sideroblastic anemias
CPT/HCPCS: 36415; 82024

== ENCOUNTER 2023-06-01 10:54 | Emergency (ER) | payer OTHER, SELFPAY ==
[2023-06-01] VITALS (25 sets, daily range): BP systolic 84–104; BP diastolic 56–68; PULSE 64–82; TEMP 36.7; O2SAT 95–99; BMI 30.6
--- NOTE | 2023-06-01 11:00 | ED_ITS ---
HPI - Weakness General Chief complaint: Weakness Stated complaint: LOW BLOOD PRESSURE Time Seen by Provider: 06/01/23 10:56 History of Present Illness HPI Narrative: 37-year-old female presents for feeling weak and dizzy. She has a history of POTS. She had set her alarm for 8 AM because a home care nurse was coming at 9 AM to give her some IV fluids and some IVIG. She had fallen back asleep and was awoken by the nurse knocking on her door at 9:00. She received a small amount of IV fluids and was not feeling good so she was transported here. No fever or vomiting. Related Data Home Medications ?Medication ?Instructions ?Recorded ?Confirmed buspirone 10 mg tablet 30 mg PO BID 03/02/23 06/01/23 cholecalciferol (vitamin D3) 125 125 mcg PO DAILY 03/02/23 06/01/23 mcg (5,000 unit) capsule diazepam 5 mg tablet 5 mg PO Q8H 03/02/23 06/01/23 immune glob,gamma (IgG) 10 25 g IV .weekly 03/02/23 06/01/23 %-gly-IgA over 50 mcg/mL injection solution (Gammagard Liquid) magnesium chloride 64 mg 64 mg PO DAILY 03/02/23 06/01/23 (magnesium chloride) tablet,delayed release (Mag 64) omega-3 300 mg-dha 120 mg-epa 180 1 cap PO DAILY 03/02/23 06/01/23 mg-fish oil 1,000 mg capsule omeprazole 40 mg capsule,delayed 40 mg PO DAILY 03/02/23 06/01/23 release potassium chloride 10 mEq 10 meq PO DAILY 03/02/23 06/01/23 capsule,extended release propranolol 60 mg capsule,24 60 mg PO DAILY 03/02/23 06/01/23 hr,extended release levothyroxine 50 mcg tablet 50 mcg PO DAILY 06/01/23 06/01/23 liothyronine 5 mcg tablet 5 mcg PO DAILY 06/01/23 06/01/23 loratadine 10 mg tablet 10 mg PO DAILY 06/01/23 06/01/23 (Allerclear) metformin 500 mg tablet,extended 500 mg PO BID 06/01/23 06/01/23 release 24 hr mirtazapine 15 mg tablet 15 mg PO BEDTIME 04/12/24 04/12/24 Allergies Allergy/AdvReac Type Severity Reaction Status Date / Time carbinoxamine [From [facility]] Allergy Unknown Verified 03/02/23 17:19 Latex, Natural Rubber Allergy Unknown Verified 03/02/23 17:19 pseudoephedrine [From [facility]] Allergy Unknown Verified 03/02/23 17:19 Review of Systems ROS Narrative A ten point review of systems is negative except as noted above. Exam Narrative Exam Narrative: Nurses note and vital signs reviewed and patient is not hypoxic. General: The patient appears well and in no apparent distress. Patient is rest ing comfortably on cart. Skin: Warm, dry, slight pallor noted. There is no rash noted. Head: Normocephalic, atraumatic Eye: Normal conjunctiva, no drainage Ears, Nose, Mouth, and Throat: oral mucosa is moist. Nares patent. Cardiovascular: Regular Rate and Rhythm Respiratory: Patient is in no distress, no accessory muscle use, lungs are clear to auscultation, no wheezing, rales or rhonchi Back: non-tender GI: Soft and nontender Musculoskeletal: The patient has no evidence of calf tenderness, no pitting edema, symmetrical pulses noted bilaterally Neurological: A&O, normal speech Psychiatric: Cooperative Constitutional Vital Signs, click to edit/add: Last Vital Signs Temp 98.0 F 06/01/23 10:57 Pulse 69 06/01/23 13:50 Resp 16 06/01/23 10:57 BP 104/59 06/01/23 13:46 Pulse Ox 97 06/01/23 13:50 O2 Del Method Room Air 06/01/23 10:57 Course Vital Signs Vital signs: Vital Signs Temperature 98.0 F 06/01/23 10:57 Pulse Rate 82 06/01/23 10:57 Respiratory Rate 16 06/01/23 10:57 Blood Pressure 90/68 06/01/23 10:57 Pulse Oximetry 98 06/01/23 10:57 Oxygen Delivery Method Room Air 06/01/23 10:57 Temperature 98.0 F 06/01/23 10:57 Pulse Rate 69 06/01/23 13:50 Respiratory Rate 16 06/01/23 10:57 Blood Pressure 104/59 06/01/23 13:46 Pulse Oximetry 97 06/01/23 13:50 Oxygen Delivery Method Room Air 06/01/23 10:57 MDM - Weakness MDM Narrative Medical decision making narrative: The patient was given IV fluids and feels improved. She had started metformin yesterday but mother and the patient are not sure why she was put on it by her power cleaner operator. Mother expressed concern and unhappiness that her daughter was put on this medication and she is going to stop the medication. Mother will communicate with the power cleaner operator office. Nonetheless she is able to be discharged home. Treatment diagnosis and follow-up were discussed with the patient and her mother. At her mother's request I have written a prescription for a glucometer and test strips. Differential Diagnosis Differential diagnosis: Likely other (Dehydration, medication side effect, acute kidney injury, electrolyte imbalance, anemia) Lab Data Attestation: I reviewed the patient's lab results. Labs: Lab Results 06/01/23 Range/Units 11:20 WBC 4.6 (4.0-11.0) 10^3/uL RBC 3.41 L (4.20-5.40) 10^6/uL Hgb 10.1 L (12.0-16.0) g/dL Hct 31.8 L (36.0-48.0) % MCV 93.3 (81.0-99.0) fL MCH 29.6 (26.7-34.0) pg MCHC 31.8 (29.9-35.2) g/dL RDW 13.1 (11.0-15.0) % Plt Count 197 (150-450) 10^3/uL MPV 9.6 (9.5-13.5) fL Neut % (Auto) 43.4 (43.0-75.0) % Lymph % (Auto) 39.3 (20.5-60.0) % Upson % (Auto) 11.5 (1.7-12.0) % Eos % (Auto) 5.2 (0.9-7.0) % Baso % (Auto) 0.4 (0.2-2.0) % Neut # (Auto) 2.0 (1.4-6.5) 10^3/uL Lymph # (Auto) 1.8 (1.2-3.8) 10^3/uL Upson # (Auto) 0.5 (0.3-0.8) 10^3/uL Eos # (Auto) 0.2 (0.0-0.7) 10^3/uL Baso # (Auto) 0.0 (0.0-0.1) 10^3/uL Abs Immat Gran (auto) 0.01 (0.00-0.03) 10^3/uL Imm/Tot Granulo (auto) 0.2 (0.0-0.5) % Sodium 142 (136-145) mmol/L Potassium 4.3 (3.5-5.1) mmol/L Chloride 108 H (98-107) mmol/L Carbon Dioxide 26.2 (21.0-32.0) mmol/L Anion Gap 12.1 BUN 12.0 (7.0-18.0) mg/dL Creatinine 0.84 (0.55-1.02) mg/dL Est GFR ( Amer) >60 (>=60) Est GFR (Non-Af Amer) >60 (>=60) BUN/Creatinine Ratio 14.3 Glucose 104 (74-106) mg/dL Lactate 0.9 (0.4-2.0) mmol/L Calcium 8.8 (8.5-10.1) mg/dL Serum HCG, Qual Negative (NEGATIVE) ECG Data Attestation: I personally reviewed and interpreted this ECG as follows: (EKG on my interpretation shows normal sinus rhythm with a rate of 79) Discharge Plan Discharge Stand Alone Forms: Portal Instructions Chief Complaint: Weakness Clinical Impression: Generalized weakness Patient Disposition: Home, Self-Care Time of Disposition Decision: 14:13 Condition: Good Mode of Transportation: Private Vehicle Prescriptions / Home Meds: No Action buspirone 10 mg tablet 30 mg PO BID cholecalciferol (vitamin D3) 125 mcg (5,000 unit) capsule 125 mcg PO DAILY diazepam 5 mg tablet 5 mg PO Q8H Gammagard Liquid 10 % solution 25 g IV .weekly Mag 64 64 mg tablet,delayed release (DR/EC) 64 mg PO DAILY omega 5-yzo-cad-fish oil 300 mg (120 mg- 180mg)-1,000 mg capsule 1 cap PO DAILY omeprazole 40 mg capsule,delayed release(DR/EC) 40 mg PO DAILY potassium chloride 10 mEq capsule, extended release 10 meq PO DAILY propranolol 60 mg capsule,extended release 24 hr 60 mg PO DAILY loratadine [Allerclear] 10 mg tablet 10 mg PO DAILY levothyroxine 50 mcg tablet 50 mcg PO DAILY liothyronine 5 mcg tablet 5 mcg PO DAILY mirtazapine 15 mg tablet 15 mg PO BEDTIME metformin 500 mg tablet extended release 24 hr 500 mg PO BID Print Language: German Instructions: Weakness (ED) Additional Instructions: Discontinue metformin Referrals: LIZY SORIA [Primary Care Provider] - 1 week
--- NOTE | 2023-06-01 11:00 | ECG_ITS ---
[facility] Test Date: 2023-06-01 Pat Name: BEN BARR Department: Room: - Gender: Female Acls Nurse: : [id number] Requested By: [id number] Order Number: [id number] Reading MD: REHAN FIELDS Measurements Intervals [place] Rate: 79 P: 60 MS: 188 QRS: 68 QRSD: 104 T: 69 QT: 400 QTc: 435 Interpretive Statements 1100 Sinus rhythm 9110 normal ECG Compared to ECG 03/02/2023 17:16:32 No significant changes Electronically Signed On 06-01-2023 18:56:42 EDT by REHAN FIELDS
[2023-06-01] MEDS: 0.9 % SODIUM CHLORIDE 1,000 ML 1000 ML IV ×2 (11:11→13:37)
[2023-06-01 11:30] LABS: Basophils Percent Auto 0.4 % (0.2-2.0); Eosinophils Absolute Auto 0.2 10^3/uL (0.0-0.7); Eosinophils Percent Auto 5.2 % (0.9-7.0); Hematocrit 31.8 % (36.0-48.0); Hemoglobin 10.1 g/dL (12.0-16.0); Immature Granulocytes Abs Auto 0.01 10^3/uL (0.00-0.03); Immature Granulocytes Pct Auto 0.2 % (0.0-0.5); Lymphocytes Absolute Auto 1.8 10^3/uL (1.2-3.8); Lymphocytes Percent Auto 39.3 % (20.5-60.0); Mean Corpuscular HGB Conc 31.8 g/dL (29.9-35.2); Mean Corpuscular Hemoglobin 29.6 pg (26.7-34.0); Mean Corpuscular Volume 93.3 fL (81.0-99.0); Mean Platelet Volume 9.6 fL (9.5-13.5); Monocytes Absolute Auto 0.5 10^3/uL (0.3-0.8); Monocytes Percent Auto 11.5 % (1.7-12.0); Neutrophils Percent Auto 43.4 % (43.0-75.0); Platelet Count 197 10^3/uL (150-450); Red Blood Count 3.41 10^6/uL (4.20-5.40); Red Cell Distribution Width 13.1 % (11.0-15.0); White Blood Count 4.6 10^3/uL (4.0-11.0)
[2023-06-01 11:44] LABS: Anion Gap 12.1; BUN Creatinine Ratio 14.3; Calcium 8.8 mg/dL (8.5-10.1); Carbon Dioxide 26.2 mmol/L (21.0-32.0); Chloride 108 mmol/L (98-107); Estimated GFR (African America >60 (>=60); Estimated GFR (Non-African Ame >60 (>=60); Glucose 104 mg/dL (74-106); HCG Qualitative NEGATIVE (NEGATIVE); Potassium 4.3 mmol/L (3.5-5.1); Sodium 142 mmol/L (136-145)
[2023-06-01 14:00] LABS: Lactate/Lactic Acid 0.9 mmol/L (0.4-2.0)
== END 2023-06-01 14:29 | disposition home or self-care (01) ==
PROVIDERS: Emergency Provider Emergency Medicine; PCP Family Medicine
DX: R53.1 Weakness (principal); G90.A Postural orthostatic tachycardia syndrome [POTS]; Z79.899 Other long term (current) drug therapy; Z79.890 Hormone replacement therapy; Z79.84 Long term (current) use of oral hypoglycemic drugs
CPT/HCPCS: 36415; 80048; 83605; 84703; 85025; 93005; 96360; 96361; 99284

== ENCOUNTER 2024-06-13 09:14 | Outpatient (OUT) | payer OTHER, SELFPAY ==
[2024-06-14 04:07] LABS: Prolactin 25.5 ng/mL (4.8-33.4)
[2024-06-15 14:17] LABS: ACTH, Plasma 79.1 pg/mL (7.2-63.3)
[2024-06-18 00:12] LABS: Free Testosterone(Direct) 0.4 pg/mL (0.0-4.2); Testosterone 8 ng/dL (8-60)
== END 2024-06-13 09:15 | disposition home or self-care (01) ==
LOC: LAB 09:16
PROVIDERS: PCP Family Medicine; Visit Provider Family Medicine
DX: R61 Generalized hyperhidrosis (principal); E34.9 Endocrine disorder, unspecified; R79.89 Other specified abnormal findings of blood chemistry; E22.1 Hyperprolactinemia
CPT/HCPCS: 36415; 82024; 82533; 82670; 84146; 84402; 84403

== ENCOUNTER 2024-09-11 08:26 | Outpatient (OUT) | payer OTHER, SELFPAY ==
--- OUTSIDE RECORDS SUMMARY | 2024-09-08 14:30 | XMS_ITS | Encounter Summary ---
Author Organization [facility] Address [address], [address] [place] [address] Care Team Providers Care Trim And Burr Operator Name Role Phone Dc Soria DO Primary Care Provider Reason for Visit * Reason Comments Anxiety [...] Description 09/08/2024 2:30 PM EDT Office Visit [facility] [address] [place] [address] Dc Soria DO [address] [place] [address] Rash and nonspecific skin eruption (Primary Dx); [...] drink = 0.6 oz pur e alcohol) [facility] Utilities Answer Date Recorded In the [...] place to sleep or slept in a fci (including now)? No 10/16/2022 Housing Stability Vital Sign Answer Zen e Recorded In the last 12 months, was t here a time when you were not able to pay the mortgage or rent on time? No 03/11/2024 In the past 12 months, how m any times have you moved where you were living? 0 03/11/2024 At any time in the past [address] [facility], were you homeless or living in a fci (including now)? No 03/11/2024 Food Insecurity Answer [...] been referred to integrative medicine at the [facility] for her hip issues and is considering [...] Insecurity: No Food Insecurity (09/01/2024) Received from [facility] Hunger Screening Within the past 12 [...] MOUTH ONCE DAILY 06/30/24 Rhona Soria DO [place]-3 Fatty Acids (FISH OIL) 1000 MG capsule [...] Paula Randall MD Lancets (ONETOUCH DELICA PLUS [id number]) MISC 06/01/23 Paula Randall MD ONETOUCH ULTRA [...] disorder with abnormal movement - Handicap Placard [facility]; Starting 09/08/2024, Disp-1 each, R-0, PrintGood for [...] Description 12/09/2024 2:00 PM EDT Office Visit [facility] [address] [place] [address] Dc Soria DO [address] [place] [address] 3 month fu Scheduled Orders Name Type [...] overactivity documented in this encounter Care Teams Trim And Burr Operator Relationship Specialty [place] [address] [place] [id number] PCP - General Family Medicine 09/21/22 documented as of this encounter
--- OUTSIDE RECORDS SUMMARY | 2024-09-11 08:32 | XMS_ITS | Encounter Summary ---
Author Organization [facility] Address [address] [place] [address] Care Team Providers Care Apprentice Plumber Name Role Phone Dc Banks Primary Care Provider [phone] Kathryn Gutierrez RN Unavailable Unavaila ble Source Comments In the event this information is protected by the Federal Confidentiality of Alcohol and Drug AbusePatient Records regulations: The Federal rules restrict any use of the information to criminally investigate or prosecute any alcohol or drug abuse patient.[facility] Encounter Details Date Type Department Care Team (Late st Contact Info) Description 05/25/2022 Patient Msg Neurology [address] [place], [place] [id number] Provider, Ccf Please Call to Confirm Your Sleep Study on 05/31, 2nd attempt. Social History Tobacco Use Types Packs/Day Years Used Date Smoking Tobacco: Former Cigarettes 0.5 6 1 02/19/2007 - 12/20/2013 Smokeless Tobacco: Never Alcohol Use Standard Drinks/Week Comments No 0 (1 standard drink = 0.6 oz pur e alcohol) PHQ-2 Answer Date Recorded PHQ-2 score 4 03/06/2022 Area Deprivation Index Answer Date Slava rded National Score (1-100), lower number is lower ri sk 65 03/04/2022 State Score (1-10), lower number is lower risk N ot on file 03/04/2022 Data from: https://www.neighborhoodatlas.medicine.[facility]/. Last address used for calculation [address] 03/04/2022 Comments No Sex and Gender Information Value Date Recorded Sex Assigned at Female 11/11/2019 8:58 AM EDT Legal Sex Female 8:12 AM EST Gender Identity Female 11/11/2019 8:58 AM EDT Sexual Orientation Not on file documented as of this encounter Functional Status * Are you deaf or do you have serious difficulty hearing? Answer Date of Assessment Author No 01/31/2022 5:40 PM Karishma Gomes RN * Are you blind or do you have serious difficulty seeing, even when wearing glasses? Answer Date of Assessment Author No 01/31/2022 5:40 PM Karishma Gomes RN * Do you have serious difficulty walking or climbing stairs? Answer Date of Assessment Author No 01/31/2022 5:40 PM Karishma Gomes RN * Do you have difficulty dressing or bathing? Answer Date of Assessment Author No 01/31/2022 5:40 PM Karishma Gomes RN * Because of a physical, mental, or emotional condition, do you have difficulty doing errands alone such as visiting a doctor's office or shopping? Answer Date of Assessment Author No 01/31/2022 5:40 PM Karishma Gomes RN documented as of this encounter Mental Status * Because of a physical, mental, or emotional condition, do you have serious difficulty concentrating, remembering, or making decisions? 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 I l l explain 11/13/2024 10:30 AM EDT [facility] [address] [address] Carlos Kiser MD, PhD 9500 [place] [address] CVID 11/20/2024 12:00 PM EDT Procedure Cardiology 9[address] [place] [address] VELAZQUEZ CX/SHREE LIST. 11/20/2024 12:45 PM EDT Office Visit Cardiology [address] [place] [address] Liu Rowe MD [address] [place] [address] VELAZQUEZ CX/SHREE LIST. documented as of this encounter Visit Diagnoses Not on filedocumented in this encounter Care Teams Apprentice Plumber Relationship Specialty Start Date End Date Dc Banks DO PCP - General Family Medicine 08/03/10 Kathryn Gutierrez, RN 9500 [facility] [address] [place] [address] Specialty Product Assurance Engineer Hematology 04/03/22 documented as of this encounter
--- OUTSIDE RECORDS SUMMARY | 2024-09-11 08:32 | XMS_ITS | Encounter Summary ---
Author Organization [facility] Address [address] [place] [address] Care Team Providers Care Lead Cargo Mover Name Role Phone Dc Banks Primary Care Provider [phone] Kathryn Gutierrez RN Unavailable Unavaila ble Source Comments In the event this information is protected by the Federal Confidentiality of Alcohol and Drug AbusePatient Records regulations: The Federal rules restrict any use of the information to criminally investigate or prosecute any alcohol or drug abuse patient.[facility] Encounter Details Date Type Department Care Team (Late st Contact Info) Description 06/19/2022 Patient Msg [facility] [address] [place] [address] Provider, Ccf Scheduling Smart Pill Capsule Appointment Social History Tobacco Use Types Packs/Day Years [...] N ot on file 03/04/2022 Data from: https://www.neighborhoodatlas.medicine.[facility]/. 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 I l l explain 11/13/2024 10:30 AM EDT [facility] [address] [address] Carlos Kiser MD, PhD [address]00 [place] [address] CVID 11/20/2024 12:00 PM EDT Procedure Cardiology [address] [place], [place] [phone] PER DR VELAZQUEZ CX/SHREE LIST. 11/20/2024 12:45 PM EDT Office Visit Cardiology [address] [place] [address] Liu Rowe MD [address] [place] [address] VELAZQUEZ CX/SHREE LIST. documented as of this encounter Visit Diagnoses Not on filedocumented in this encounter Care Teams Lead Cargo Mover Relationship Specialty Start Date End Date Dc Banks DO PCP - General Family Medicine 08/03/10 Kathryn Gutierrez, RN [address]00 [facility] [place] [facility] [place] [address] Specialty Wire Frame Lampshade Maker Hematology 04/03/22 documented as of this encounter
--- OUTSIDE RECORDS SUMMARY | 2024-09-11 08:32 | XMS_ITS | Encounter Summary ---
Author Organization [facility] Address [address] [place] [address] Care Team Providers Care Mate Fourth Name Role Phone Dc Banks Primary Care Provider [phone] Kathryn Gutierrez RN Unavailable Unavaila ble Source Comments In the event this information is protected by the Federal Confidentiality of Alcohol and Drug AbusePatient Records regulations: The Federal rules restrict any use of the information to criminally investigate or prosecute any alcohol or drug abuse patient.[facility] Encounter Details Date Type Department Care Team (Late st Contact Info) Description 04/26/2023 Patient Msg Rehab and Sports Therapy [address] [place] [address] Provider, Ccf Speech Therapy Social History Tobacco Use Types Packs/Day Years Used Date Smoking Tobacco: Former Cigarettes 0.5 6 1 02/19/2009 - 12/21/2015 Smokeless Tobacco: Never Alcohol Use Standard Drinks/Week Comments Yes 0 (1 standard drink = 0.6 oz pur e alcohol) less than 1 drink per week PHQ-2 Answer Date Recorded PHQ-2 score 6 04/24/2023 Area Deprivation Index Answer Date Slava rded National Score (1-100), lower number is lower ri sk 61 06/27/2022 State Score (1-10), lower number is lower risk 4 06/27/2022 Data from: https://www.neighborhoodatlas.[facility]/. Last address used for calculation [address] 06/27/2022 Comments No Sex and Gender Information Value Date Recorded Sex Assigned at Female 11/11/2019 8:58 AM EDT Legal Sex Female 8:12 AM EST Gender Identity Female 11/11/2019 8:58 AM EDT Sexual Orientation Not on file documented as of this encounter Functional Status * Are you deaf or do you have serious difficulty hearing? Answer Date of Assessment Author No 07/16/2022 11:15 AM Mallorie Jimenez RN * Are you blind or do you have serious difficulty seeing, even when wearing glasses? Answer Date of Assessment Author No 07/16/2022 11:15 AM Mallorie Jimenez RN * Do you have serious difficulty walking or climbing stairs? Answer Date of Assessment Author No 07/16/2022 11:15 AM Mallorie Jimenez RN * Do you have difficulty dressing or bathing? Answer Date of Assessment Author No 07/16/2022 11:15 AM Mallorie Jimenez RN * Because of a physical, mental, or emotional condition, do you have difficulty doing errands alone such as visiting a doctor's office or shopping? Answer Date of Assessment Author No 07/16/2022 11:15 AM Mallorie Jimenez RN documented as of this encounter Mental Status * Because of a physical, mental, or emotional condition, do you have serious difficulty concentrating, remembering, or making decisions? 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 I l l explain 11/13/2024 10:30 AM EDT [facility] [address] [address] Carlos Kiser MD, PhD [address]00 [place] [address] CVID 11/20/2024 12:00 PM EDT Procedure Cardiology [address] [place] [phone] VELAZQUEZ CX/SHREE LIST. 11/20/2024 12:45 PM EDT Office Visit Cardiology 9300 [place] [address] Liu Rowe MD [address]00 [place] [address] VELAZQUEZ CX/SHREE LIST. documented as of this encounter Visit Diagnoses Not on filedocumented in this encounter Care Teams Mate Fourth Relationship Specialty Start Date End Date Dc Banks DO PCP - General Family Medicine 08/03/10 Kathryn Gutierrez, ARMANI [address]00 [facility] [address] [place] [address] Specialty Cs Associate Hematology 04/03/22 documented as of this encounter
--- OUTSIDE RECORDS SUMMARY | 2024-09-11 08:32 | XMS_ITS | Encounter Summary ---
Author Organization [facility] Address [address] [place] [address] Care Team Providers Care Power Bender Operator Name Role Phone Dc Banks Primary Care Provider [phone] Kathryn Gutierrez RN Unavailable Unavaila ble Source Comments In the event this information is protected by the Federal Confidentiality of Alcohol and Drug AbusePatient Records regulations: The Federal rules restrict any use of the information to criminally investigate or prosecute any alcohol or drug abuse patient.[facility] Encounter Details Date Type Department Care Team (Late st Contact Info) Description 04/24/2023 Patient Msg Rehab and Sports Therapy [address] [place], [place] [phone] Provider, Ccf Physical Therapy Authorization Social History Tobacco Use Types Packs/Day Years [...] is lower risk 4 06/27/2022 Data from: https://www.neighborhoodatlas.[facility]/. 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 I l l explain 11/13/2024 10:30 AM EDT [facility] [address] [address] Carlos Kiser MD, PhD [address] [place] [address] CVID 11/20/2024 12:00 PM EDT Procedure Cardiology [address] [place] [phone] VELAZQUEZ CX/SHREE LIST. 11/20/2024 12:45 PM EDT Office Visit Cardiology 9300 [place] [address] Liu Rowe MD [address]00 [place] [address] VELAZQUEZ CX/SHREE LIST. documented as of this encounter Visit Diagnoses Not on filedocumented in this encounter Care Teams Power Bender Operator Relationship Specialty Start Date End Date Dc Banks DO PCP - General Family Medicine 08/03/10 Kathryn Gutierrez, ARMANI 9500 [facility] [address] [place] [address] Specialty Grocery Carrier Hematology 04/03/22 documented as of this encounter
--- OUTSIDE RECORDS SUMMARY | 2024-09-11 08:32 | XMS_ITS | Encounter Summary ---
Author Organization [facility] Address [address] [place] [address] Care Team Providers Care Plate Stacker Hand Name Role Phone Dc Banks Primary Care Provider [phone] Kathryn Gutierrez RN Unavailable Unavaila ble Source Comments In the event this information is protected by the Federal Confidentiality of Alcohol and Drug AbusePatient Records regulations: The Federal rules restrict any use of the information to criminally investigate or prosecute any alcohol or drug abuse patient.[facility] Encounter Details Date Type Department Care Team (Late st Contact Info) Description 05/26/2022 Patient Msg Neurology [address] [place], [place] [phone] Provider, Ccf Please Call To Confirm Your Sleep Study On 05/31/22, 3rd attempt. Social History Tobacco Use Types Packs/Day [...] N ot on file 03/04/2022 Data from: https://www.neighborhoodatlas.medicine.[facility]/. 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 I l l explain 11/13/2024 10:30 AM EDT [facility] [address] [address] Carlos Kiser MD, PhD 9500 [place] [address] CVID 11/20/2024 12:00 PM EDT Procedure Cardiology 9[address] [place] [address] VELAZQUEZ CX/SHREE LIST. 11/20/2024 12:45 PM EDT Office Visit Cardiology 9300 [place] [address] Liu Rowe MD [address] [place] [address] VELAZQUEZ CX/SHREE LIST. documented as of this encounter Visit Diagnoses Not on filedocumented in this encounter Care Teams Plate Stacker Hand Relationship Specialty Start Date End Date Dc Banks DO PCP - General Family Medicine 08/03/10 Kathryn Gutierrez, RN 9500 [facility] [address] [place] [address] Specialty Viner Operator Hematology 04/03/22 documented as of this encounter
--- OUTSIDE RECORDS SUMMARY | 2024-09-11 08:32 | XMS_ITS | Encounter Summary ---
Author Organization [facility] Address [address] [place] [address] Care Team Providers Care Cupola Melter Helper Name Role Phone Dc Banks Primary Care Provider [phone] Kathryn Gutierrez RN Unavailable Unavaila ble Source Comments In the event this information is protected by the Federal Confidentiality of Alcohol and Drug AbusePatient Records regulations: The Federal rules restrict any use of the information to criminally investigate or prosecute any alcohol or drug abuse patient.[facility] Encounter Details Date Type Department Care Team (Late st Contact Info) Description 05/12/2022 Patient Msg Gastroenterology [address] [facility] [address] [phone] Provider, Ccf re: Smart Pill. Social History Tobacco Use Types Packs/Day Years [...] N ot on file 03/04/2022 Data from: https://www.neighborhoodatlas.[facility]/. 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 I l l explain 11/13/2024 10:30 AM EDT [facility] [address] [address] Carlos Kiser MD, PhD [address] [place] [address] CVID 11/20/2024 12:00 PM EDT Procedure Cardiology 9[address] [place] [address] VELAZQUEZ CX/SHREE LIST. 11/20/2024 12:45 PM EDT Office Visit Cardiology 9[address] [place] [address] Liu Rowe MD [address] [place] [address] VELAZQUEZ CX/SHREE LIST. documented as of this encounter Visit Diagnoses Not on filedocumented in this encounter Care Teams Cupola Melter Helper Relationship Specialty Start Date End Date Dc Banks DO PCP - General Family Medicine 08/03/10 Kathryn Gutierrez, ARMANI 9500 [facility] [address] [place] [address] Specialty Tire Changer Hematology 04/03/22 documented as of this encounter
--- OUTSIDE RECORDS SUMMARY | 2024-09-11 08:32 | XMS_ITS | Encounter Summary ---
Author Organization [facility] Address [address] [place] [address] Care Team Providers Care Regional Sales Coordinator Name Role Phone Dc Banks Primary Care Provider [phone] Kathryn Gutierrez RN Unavailable Unavaila ble Source Comments In the event this information is protected by the Federal Confidentiality of Alcohol and Drug AbusePatient Records regulations: The Federal rules restrict any use of the information to criminally investigate or prosecute any alcohol or drug abuse patient.[facility] Encounter Details Date Type Department Care Team (Late st Contact Info) Description 05/24/2022 Patient Msg Neurology [address] [place], [place] [phone] Provider, Ccf Please Call to Confirm Your Sleep Study Appointment on 05/31/22, 1st attempt. Social History Tobacco Use Types Packs/Day [...] N ot on file 03/04/2022 Data from: https://www.neighborhoodatlas.[facility]/. 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 I l l explain 11/13/2024 10:30 AM EDT [facility] [address] [address] Carlos Kiser MD, PhD [address] [place] [address] CVID 11/20/2024 12:00 PM EDT Procedure Cardiology 9[address] [place] [address] VELAZQUEZ CX/SHREE LIST. 11/20/2024 12:45 PM EDT Office Visit Cardiology [address] [place] [address] Liu Rowe MD [address] [place] [address] VELAZQUEZ CX/SHREE LIST. documented as of this encounter Visit Diagnoses Not on filedocumented in this encounter Care Teams Regional Sales Coordinator Relationship Specialty Start Date End Date Dc Banks DO PCP - General Family Medicine 08/03/10 Kathryn Gutierrez, RN 9500 [facility] [address] [place] [address] Specialty Harness Installer Hematology 04/03/22 documented as of this encounter
--- OUTSIDE RECORDS SUMMARY | 2024-09-11 08:32 | XMS_ITS | Encounter Summary ---
Author Organization [facility] Address [address] [place] [address] Care Team Providers Care Claims Processor Name Role Phone Dc Banks Primary Care Provider [phone] Kathryn Gutierrez RN Unavailable Unavaila ble Source Comments In the event this information is protected by the Federal Confidentiality of Alcohol and Drug AbusePatient Records regulations: The Federal rules restrict any use of the information to criminally investigate or prosecute any alcohol or drug abuse patient.[facility] Encounter Details Date Type Department Care Team (Late st Contact Info) Description 05/16/2022 Patient Msg Neurology [address] [place], [place] [phone] Provider, Ccf Appointment Social History Tobacco Use Types Packs/Day [...] N ot on file 03/04/2022 Data from: https://www.neighborhoodatlas.medicine.[facility]/. Last address used for calculation [address] [...] Description 09/16/2024 2:30 PM EDT OT/PT/Speech 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 I l l explain 11/13/2024 10:30 AM EDT [facility] [address] [address] Carlos Kiser MD, PhD [address] [place] [address] CVID 11/20/2024 12:00 PM EDT Procedure Cardiology [address] [place], [place] [phone] PER DR VELAZQUEZ CX/SHREE LIST. 11/20/2024 12:45 PM EDT Office Visit Cardiology [address] [place] [address] Liu Rowe MD [address] [place] [address] VELAZQUEZ CX/SHREE LIST. documented as of this encounter Visit Diagnoses Not on filedocumented in this encounter Care Teams Claims Processor Relationship Specialty Start Date End Date Dc Banks DO PCP - General Family Medicine 08/03/10 Kathryn Gutierrez, RN 9500 [facility] [place] [address] Specialty Poured Pipe Maker Hematology 04/03/22 documented as of this encounter
--- OUTSIDE RECORDS SUMMARY | 2024-09-11 08:32 | XMS_ITS | Encounter Summary ---
Author Organization [facility] Address [address] [place] [address] Care Team Providers Care Watch Assembler Name Role Phone Dc Banks Primary Care Provider [phone] Kathryn Gutierrez RN Unavailable Unavaila ble Source Comments In the event this information is protected by the Federal Confidentiality of Alcohol and Drug AbusePatient Records regulations: The Federal rules restrict any use of the information to criminally investigate or prosecute any alcohol or drug abuse patient.[facility] Encounter Details Date Type Department Care Team (Late st Contact Info) Description 04/26/2023 Patient Msg Psychiatry [address] [place] [address] Veronica Costa MD Treatment plan from today's visit Social History Tobacco Use Types Packs/Day Years [...] is lower risk 4 06/27/2022 Data from: https://www.neighborhoodatlas.medicine.[facility]/. 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 I l l explain 11/13/2024 10:30 AM EDT [facility] Allergy [address] [address] Carlos Kiser MD, PhD [address] [place], [place] [id number] CVID 11/20/2024 12:00 PM EDT Procedure Cardiology [address] [place] [address] VELAZQUEZ CX/SHREE LIST. 11/20/2024 12:45 PM EDT Office Visit Cardiology [address] [place] [address] Liu Rowe MD [address] [place] [address] VELAZQUEZ CX/SHREE LIST. documented as of this encounter Visit Diagnoses Not on filedocumented in this encounter Care Teams Watch Assembler Relationship Specialty Start Date End Date Dc Banks DO PCP - General Family Medicine 08/03/10 Kathryn Gutierrez, RN [address]00 [facility] [address] [place] [address] Specialty Test Department Helper Hematology 04/03/22 documented as of this encounter
--- OUTSIDE RECORDS SUMMARY | 2024-09-11 08:32 | XMS_ITS | Encounter Summary ---
Author Organization [facility] Address [address] [place], [place] [id number] Care Team Providers Care Explosive Man Name Role Phone Dc Banks DO Primary Care Provider [phone] Kathryn Gutierrez RN Unavailable Unavaila ble Source Comments In the event this information is protected by the Federal Confidentiality of Alcohol and Drug AbusePatient Records regulations: The Federal rules restrict any use of the information to criminally investigate or prosecute any alcohol or drug abuse patient.[facility] Encounter Details Date Type Department Care Team (Late st Contact Info) Description 04/28/2022 Patient Msg Rheumatology [address] [place] [address] Carlos Kiser [place] [address] [place], [place] [phone] Request an Appointment Social History Tobacco Use Types Packs/Day [...] N ot on file 03/04/2022 Data from: https://www.neighborhoodatlas.medicine.[facility]/. Last address used for calculation [address] 03/04/2022 Comments No Sex and Gender Information Value Date Recorded Sex Assigned at Female 11/11/2019 8:58 AM EDT Legal Sex Female 8:12 AM EST Gender Identity Female 11/11/2019 8:58 AM EDT Sexual Orientation Not on file COVID-19 Exposure Response Date Recorded In the last 10 days, have yo u been in contact with someone who was confirmed or suspected to have Coronavirus/COVID-19? No / Unsure 04/11/2022 1:10 PM EST documented as of this encounter Functional Status * Are you deaf or do you have serious difficulty hearing? Answer Date of Assessment Author No 01/31/2022 5:40 PM Karishma Gomes RN * Are you blind or do you have serious difficulty seeing, even when wearing glasses? Answer Date of Assessment Author No 01/31/2022 5:40 PM EST Karishma Dejesus RN * Do you have serious difficulty [...] of Assessment Author No 01/31/2022 5:40 PM EST Karishma Dejesus RN documented as of this encounter Mental Status * Because of a physical, mental, or emotional condition, do you have serious difficulty concentrating, remembering, or making decisions? 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 I l l explain 11/13/2024 10:30 AM EDT [facility] Allergy [address] [address] Carlos iKser MD, PhD [address] [place] [address] CVID 11/20/2024 12:00 PM EDT Procedure Cardiology [address] [place] [address] VELAZQUEZ CX/SHREE LIST. 11/20/2024 12:45 PM EDT Office Visit Cardiology [address] [place] [address] Liu Rowe MD [address] [place] [address] VELAZQUEZ CX/SHREE LIST. documented as of this encounter Visit Diagnoses Not on filedocumented in this encounter Care Teams Explosive Man Relationship Specialty Start Date End Date Dc Banks DO PCP - General Family Medicine 08/03/10 Kathryn Gutierrez, RN [address] [place] [address] Specialty Ui Developer Hematology 04/03/22 documented as of this encounter
--- OUTSIDE RECORDS SUMMARY | 2024-09-11 08:32 | XMS_ITS | Encounter Summary ---
Author Organization [facility] Address [address] [place], [place] [phone] Care Team Providers Care Gear Repair Supervisor Name Role Phone Dc Banks Primary Care Provider [phone] Kathryn Gutierrez RN Unavailable Unavaila ble Source Comments In the event this information is protected by the Federal Confidentiality of Alcohol and Drug AbusePatient Records regulations: The Federal rules restrict any use of the information to criminally investigate or prosecute any alcohol or drug abuse patient.[facility] Encounter Details Date Type Department Care Team (Late st Contact Info) Description 06/27/2022 Get Medical Advice Allergy [address] [place] [address] Carlos Kiser MD, PhD [address] [place], [place] [phone] [place] Social History Tobacco Use Types Packs/Day Years Used Date Smoking Tobacco: Former Cigarettes 0.5 6 1 02/19/2007 - 12/20/2013 Smokeless Tobacco: Never Alcohol Use Standard Drinks/Week Comments No 0 (1 standard drink = 0.6 oz pur e alcohol) PHQ-2 Answer Date Recorded PHQ-2 score 6 06/27/2022 Area Deprivation Index Answer Date Slava rded National Score (1-100), lower number is lower ri sk 61 06/27/2022 State Score (1-10), lower number is lower risk 4 06/27/2022 Data from: https://www.neighborhoodatlas.medicine.[facility]/. Last address used for calculation [address] [...] suspected to have Coronavirus/COVID-19? 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 I l l explain 11/13/2024 10:30 AM EDT [facility] Allergy [address] [address] Carlos Kiser MD, PhD [address] [place] [address] CVID 11/20/2024 12:00 PM EDT Procedure Cardiology [address] [place] [address] VELAZQUEZ CX/SHREE LIST. 11/20/2024 12:45 PM EDT Office Visit Cardiology [address] [place] [address] iLu Rowe MD [address] [place] [address] VELAZQUEZ CX/SHREE LIST. documented as of this encounter Visit Diagnoses Not on filedocumented in this encounter Care Teams Gear Repair Supervisor Relationship Specialty Start Date End Date Dc Banks DO PCP - General Family Medicine 08/03/10 Kathryn Gutierrez, RN [address] [place] [address] Specialty Environmental Field Professional Hematology 04/03/22 documented as of this encounter
--- OUTSIDE RECORDS SUMMARY | 2024-09-11 08:33 | XMS_ITS | Encounter Summary ---
Author Organization [facility] Address [address] [place] [address] Care Team Providers Care Awning Hanger Name Role Phone Dc Banks Primary Care Provider [phone] Kathryn Gutierrez RN Unavailable Unavaila ble Source Comments In the event this information is protected by the Federal Confidentiality of Alcohol and Drug AbusePatient Records regulations: The Federal rules restrict any use of the information to criminally investigate or prosecute any alcohol or drug abuse patient.[facility] Encounter Details Date Type Department Care Team (Late st Contact Info) Description 04/13/2022 Patient Msg Gastroenterology [address] [facility] [address] [place] [phone] Provider, [facility]cf EGG Instructions Social History Tobacco Use Types Packs/Day Years [...] N ot on file 03/04/2022 Data from: https://www.neighborhoodatlas.[facility]/. 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 I l l explain 11/13/2024 10:30 AM EDT [facility] [address] [address] Carlos Kiser MD, PhD [address] [place] [address] CVID 11/20/2024 12:00 PM EDT Procedure Cardiology [address] [place] [address] VELAZQUEZ CX/SHREE LIST. 11/20/2024 12:45 PM EDT Office Visit Cardiology [address] [place] [address] Liu Rowe MD [address] [place] [address] VELAZQUEZ CX/SHREE LIST. documented as of this encounter Visit Diagnoses Not on filedocumented in this encounter Care Teams Awning Hanger Relationship Specialty Start Date End Date Dc Banks DO PCP - General Family Medicine 08/03/10 Kathryn Gutierrez, ARMANI [address] [facility] [address] [place] [address] Specialty Business Improvement Manager Hematology 04/03/22 documented as of this encounter
--- OUTSIDE RECORDS SUMMARY | 2024-09-11 08:33 | XMS_ITS | Encounter Summary ---
Author Organization [facility] Address [address] [place] [address] Care Team Providers Care Legal Paraprofessional Name Role Phone Dc Banks Primary Care Provider [phone] Kathryn Gutierrez RN Unavailable Unavaila ble Source Comments In the event this information is protected by the Federal Confidentiality of Alcohol and Drug AbusePatient Records regulations: The Federal rules restrict any use of the information to criminally investigate or prosecute any alcohol or drug abuse patient.[facility] Encounter Details Date Type Department Care Team (Late st Contact Info) Description 02/03/2022 Patient Msg Gastroenterology [address] [facility] [address] [place] [id number] Provider, Ccf EGG Instructions Social History Tobacco Use Types Packs/Day Years Used Date Smoking Tobacco: Former Cigarettes 0.5 6 1 02/19/2007 - 12/20/2013 Smokeless Tobacco: Never Alcohol Use Standard Drinks/Week Comments No 0 (1 standard drink = 0.6 oz pur e alcohol) PHQ-2 Answer Date Recorded PHQ-2 score 6 11/27/2021 Area Deprivation Index Answer Date Slava rded National Score (1-100), lower number is lower ri sk 65 08/08/2021 State Score (1-10), lower number is lower risk N ot on file 08/08/2021 Data from: https://www.neighborhoodatlas.[facility]/. Last address used for calculation [address] 08/08/2021 Comments No Sex and Gender Information Value [...] suspected to have Coronavirus/COVID-19? 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 I l l explain 11/13/2024 10:30 AM EDT [facility] [address] [address] Carlos Kiser MD, PhD [address] [place] [address] CVID 11/20/2024 12:00 PM EDT Procedure Cardiology [address] [place] [address] VELAZQUEZ CX/SHREE LIST. 11/20/2024 12:45 PM EDT Office Visit Cardiology [address] [place] [address] Liu Rowe MD [address] [place] [address] VELAZQUEZ CX/SHREE LIST. documented as of this encounter Visit Diagnoses Not on filedocumented in this encounter Care Teams Legal Paraprofessional Relationship Specialty Start Date End Date Dc Banks DO PCP - General Family Medicine 08/03/10 Kathryn Gutierrez, ARMANI 9500 [facility] [address] [place] [address] Specialty Marksmanship Instructor Hematology 04/03/22 documented as of this encounter
--- OUTSIDE RECORDS SUMMARY | 2024-09-11 08:33 | XMS_ITS | Encounter Summary ---
Author Organization [facility] Address [address] [place] [address] Care Team Providers Care Parcel Post Officer Name Role Phone Dc Banks Primary Care Provider [phone] Kathryn Gutierrez RN Unavailable Unavaila ble Source Comments In the event this information is protected by the Federal Confidentiality of Alcohol and Drug AbusePatient Records regulations: The Federal rules restrict any use of the information to criminally investigate or prosecute any alcohol or drug abuse patient.[facility] Encounter Details Date Type Department Care Team (Late st Contact Info) Description 10/26/2022 Patient Msg Neurological Scientology [address] [place], [place] [phone] Lindy Dsouza LISW [address] [place], [place] [phone] Follow up options Social History Tobacco Use Types Packs/Day Years Used Date Smoking Tobacco: Former Cigarettes 0.5 6 1 02/19/2007 - 12/20/2013 Smokeless Tobacco: Never Alcohol Use Standard Drinks/Week Comments No 0 (1 standard drink = 0.6 oz pur e alcohol) PHQ-2 Answer Date Recorded PHQ-2 score 6 08/29/2022 Area Deprivation Index Answer Date Slava rded National Score (1-100), lower number is lower ri sk 61 06/27/2022 State Score (1-10), lower number is lower risk 4 06/27/2022 Data from: https://www.neighborhoodatlas.[facility].edu/. 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 I l l explain 11/13/2024 10:30 AM EDT [facility] [address] [address] Carlos Kiser MD, PhD [address] [place], [place] [phone] CVID 11/20/2024 12:00 PM EDT Procedure Cardiology [address] [place] [address] VELAZQUEZ CX/SHREE LIST. 11/20/2024 12:45 PM EDT Office Visit Cardiology [address] [place] [address] Liu Rowe MD [address] [place] [address] VELAZQUEZ CX/SHREE LIST. documented as of this encounter Visit Diagnoses Not on filedocumented in this encounter Care Teams Parcel Post Officer Relationship Specialty Start Date End Date Dc Banks DO PCP - General Family Medicine 08/03/10 Kathryn Gutierrez, RN 9500 [facility] [address] [place] [address] Specialty Director Of Casino Hematology 04/03/22 documented as of this encounter
--- OUTSIDE RECORDS SUMMARY | 2024-09-11 08:33 | XMS_ITS | Encounter Summary ---
Author Organization [facility] Address [address] [place], [place] [phone] Care Team Providers Care Coating Mixer Tender Name Role Phone Dc Banks Primary Care Provider [phone] Kathryn Gutierrez RN Unavailable Unavaila ble Source Comments In the event this information is protected by the Federal Confidentiality of Alcohol and Drug AbusePatient Records regulations: The Federal rules restrict any use of the information to criminally investigate or prosecute any alcohol or drug abuse patient.[facility] Encounter Details Date Type Department Care Team (Late st Contact Info) Description 01/09/2023 Get Medical Advice Rheumatology [address] [place] [address] Carlos Kiser MD, PhD [address] [place], [place] [phone] Dextrose Social History Tobacco Use Types Packs/Day Years Used Date Smoking Tobacco: Former Cigarettes 0.5 6 1 02/19/2009 - 12/21/2015 Smokeless Tobacco: Never Alcohol Use Standard Drinks/Week Comments Yes 0 (1 standard drink = 0.6 oz pur e alcohol) less than 1 drink per week PHQ-2 Answer Date Recorded PHQ-2 score 6 01/04/2023 Area Deprivation Index Answer Date Slava rded National Score (1-100), lower number is lower ri sk 61 06/27/2022 State Score (1-10), lower number is lower risk 4 06/27/2022 Data from: https://www.neighborhoodatlas.medicine.[facility]/. 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 I l l explain 11/13/2024 10:30 AM EDT [facility] [address] [address] Carlos Kiser MD, PhD 95[address] [place], [place] [phone] CVID 11/20/2024 12:00 PM EDT Procedure Cardiology [address] [place] [address] VELAZQUEZ CX/SHREE LIST. 11/20/2024 12:45 PM EDT Office Visit Cardiology [address] [place] [address] Liu Rowe MD [address] [place] [address] VELAZQUEZ CX/SHREE LIST. documented as of this encounter Visit Diagnoses Not on filedocumented in this encounter Care Teams Coating Mixer Tender Relationship Specialty Start Date End Date Dc Banks DO PCP - General Family Medicine 08/03/10 Kathryn Gutierrez, RN 9500 [facility] [address] [place] [address] Specialty Guest History Clerk Hematology 04/03/22 documented as of this encounter
--- OUTSIDE RECORDS SUMMARY | 2024-09-11 08:33 | XMS_ITS | Encounter Summary ---
Author Organization [facility] Address [address] [place], [place] [phone] Care Team Providers Care Ripening Room Attendant Name Role Phone Dc Banks Primary Care Provider [phone] Kathryn Gutierrez RN Unavailable Unavaila ble Source Comments In the event this information is protected by the Federal Confidentiality of Alcohol and Drug AbusePatient Records regulations: The Federal rules restrict any use of the information to criminally investigate or prosecute any alcohol or drug abuse patient.[facility] Encounter Details Date Type Department Care Team (Late st Contact Info) Description 11/22/2022 Patient Msg Pre Anesthesia 8024 [facility] [address] [place] [address] Fe Brown PA-C [address] [place], [place] [phone] Preoperative instructions Social History Tobacco Use Types Packs/Day Years [...] is lower risk 4 06/27/2022 Data from: https://www.neighborhoodatlas.medicine.[facility]/. 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 I l l explain 11/13/2024 10:30 AM EDT [facility] [address] [address] Carlos Kiser MD, PhD [address] [place] [address] CVID 11/20/2024 12:00 PM EDT Procedure Cardiology [address] [place] [address] VELAZQUEZ CX/SHREE LIST. 11/20/2024 12:45 PM EDT Office Visit Cardiology [address] [place] [address] Liu Rowe MD [address] [place] [address] VELAZQUEZ CX/SHREE LIST. documented as of this encounter Visit Diagnoses Not on filedocumented in this encounter Care Teams Ripening Room Attendant Relationship Specialty Start Date End Date Dc Banks DO PCP - General Family Medicine 08/03/10 Kathryn Gutierrez, RN 9500 [facility] [address] [place] [address] Specialty Principal Data Architect Hematology 04/03/22 documented as of this encounter
--- OUTSIDE RECORDS SUMMARY | 2024-09-11 08:33 | XMS_ITS | Encounter Summary ---
Author Organization [facility] Address [address] [place] [address] Care Team Providers Care Group Teacher Name Role Phone Dc Banks Primary Care Provider [phone] Kathryn Gutierrez RN Unavailable Unavaila ble Source Comments In the event this information is protected by the Federal Confidentiality of Alcohol and Drug AbusePatient Records regulations: The Federal rules restrict any use of the information to criminally investigate or prosecute any alcohol or drug abuse patient.[facility] Encounter Details Date Type Department Care Team (Late st Contact Info) Description 02/07/2023 Get Medical Advice Neurological Roman Catholic [address] [id number] Brianna Mccann PSYD [address] [place] [id number] New medication Social History Tobacco Use Types Packs/Day Years Used Date Smoking Tobacco: Former Cigarettes 0.5 6 1 02/19/2009 - 12/21/2015 Smokeless Tobacco: Never Alcohol Use Standard Drinks/Week Comments Yes 0 (1 standard drink = 0.6 oz pur e alcohol) less than 1 drink per week PHQ-2 Answer Date Recorded PHQ-2 score 6 02/04/2023 Area Deprivation Index Answer Date Slava rded National Score (1-100), lower number is lower ri 61 06/27/2022 State Score (1-10), lower number is lower risk 4 06/27/2022 Data from: https://www.neighborhoodatlas.medicine.[facility]/. Last address used for calculation [address] [...] of Assessment Author No 07/16/2022 11:15 AM Mallroie Jimenez RN * Because of a physical, [...] Description 09/16/2024 2:30 PM EDT OT/PT/Speech Visit [facility][1] Physical Therapy [address] [place], [place] [phone] Claribel Katz, PT [address] [place] [address] Functional neurological symptom disorder with mixed symptoms [F44.7] 09/17/2024 1:30 PM EDT Office Visit Integrative Medicine [address] [place] [address] Daren Munson DC [address] [place] [address] Visit 8 of - Medicaid 10/14/2024 4:00 PM EDT [facility] Neurological [facility] Catholic [address] [place] [address] Sylwai Mathis PA-C [address]00 [place] [address] I apologize I missed our last visit. I l l explain 11/13/2024 10:30 AM EDT [facility] [address] [address] Carlos Kiser MD, PhD [address] [place], [place] [phone] CVID 11/20/2024 12:00 PM EDT Procedure Cardiology [address] [place] [address] VELAZQUEZ CX/SHREE LIST. 11/20/2024 12:45 PM EDT Office Visit Cardiology [address] [place] [address] Liu Rowe MD [address] [place] [address] VELAZQUEZ CX/SHREE LIST. documented as of this encounter Visit Diagnoses Not on filedocumented in this encounter Care Teams Group Teacher Relationship Specialty Start Date End Date Dc Bnaks DO PCP - General Family Medicine 08/03/10 Kathryn Gutierrez, RN 9500 [facility] [address] [place] [address] Specialty Sound Recordist Hematology 04/03/22 documented as of this encounter
--- OUTSIDE RECORDS SUMMARY | 2024-09-11 08:33 | XMS_ITS | Encounter Summary ---
Author Organization [facility] Address [address] [place] [address] Care Team Providers Care Heating Unit Mechanic Name Role Phone Dc Banks Primary Care Provider [phone] Kathryn Gutierrez RN Unavailable Unavaila ble Source Comments In the event this information is protected by the Federal Confidentiality of Alcohol and Drug AbusePatient Records regulations: The Federal rules restrict any use of the information to criminally investigate or prosecute any alcohol or drug abuse patient.[facility] Encounter Details Date Type Department Care Team (Late st Contact Info) Description 03/29/2022 Patient Msg Neurology [address] [place], [place] [phone] Provider, Ccf Sleep Study Confirmation Social History Tobacco Use Types Packs/Day Years [...] N ot on file 03/04/2022 Data from: https://www.neighborhoodatlas.[facility]/. 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 I l l explain 11/13/2024 10:30 AM EDT [facility] [address] [address] Carlos Kiser MD, PhD [address] [place] [address] CVID 11/20/2024 12:00 PM EDT Procedure Cardiology [address] [place], [place] [phone] PER DR VELAZQUEZ CX/SHREE LIST. 11/20/2024 12:45 PM EDT Office Visit Cardiology [address] [place] [address] Liu Rowe MD [address] [place] [address] VELAZQUEZ CX/SHREE LIST. documented as of this encounter Visit Diagnoses Not on filedocumented in this encounter Care Teams Heating Unit Mechanic Relationship Specialty Start Date End Date Dc Banks DO PCP - General Family Medicine 08/03/10 Kathryn Gutierrez, RN 9500 [facility] [place] [address] Specialty School Bus Mechanic Hematology 04/03/22 documented as of this encounter
--- OUTSIDE RECORDS SUMMARY | 2024-09-11 08:33 | XMS_ITS | Encounter Summary ---
Author Organization [facility] Address [address] [place] [address] Care Team Providers Care Candy Cutter Hand Name Role Phone Dc Banks Primary Care Provider [phone] Kathryn Gutierrez RN Unavailable Unavaila ble Source Comments In the event this information is protected by the Federal Confidentiality of Alcohol and Drug AbusePatient Records regulations: The Federal rules restrict any use of the information to criminally investigate or prosecute any alcohol or drug abuse patient.[facility] Encounter Details Date Type Department Care Team (Late st Contact Info) Description 11/06/2022 Patient Msg Neurology [address] [place], [place] [phone] Provider, Ccf Please call to confirm your sleep study. Social History Tobacco Use Types Packs/Day Years [...] is lower risk 4 06/27/2022 Data from: https://www.neighborhoodatlas.[facility]/. 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 I l l explain 11/13/2024 10:30 AM EDT [facility] [address] [address] Carlos Kiser MD, PhD [address] [place] [address] CVID 11/20/2024 12:00 PM EDT Procedure Cardiology [address] [place] [address] VELAZQUEZ CX/SHREE LIST. 11/20/2024 12:45 PM EDT Office Visit Cardiology [address] [place] [address] Liu Rowe MD [address] [place] [address] VELAZQUEZ CX/SHREE LIST. documented as of this encounter Visit Diagnoses Not on filedocumented in this encounter Care Teams Candy Cutter Hand Relationship Specialty Start Date End Date Dc Banks DO PCP - General Family Medicine 08/03/10 Kathryn Gutierrez, ARMANI [address] [facility] [address] [place] [address] Specialty Fiscal Technician Hematology 04/03/22 documented as of this encounter
--- OUTSIDE RECORDS SUMMARY | 2024-09-11 08:33 | XMS_ITS | Clinical Summary ---
Author Organization [facility] Address [id number] [place] [address] Care Team Providers Care Bit Grinder Name Role Phone Dc Banks DO Primary Care Provider [phone] Allergies Active Allergy Reactions Criticality Noted Date Comments Duloxetine Other (See Comments),Dizzine ss 05/07/2023 Eyes dilated; felt drugged Medroxyprogesterone 10/24/2019 Metformin Nausea High 07/19/2023 Had difficulty eating due to nausea. Brompheniramine-Pseudoephed rin 09/18/2016 Medications * This document contains information received from the source organization and may not represent a complete record from that organization. busPIRone (BUSPAR) 30 mg tablet Take 30 mg by mouth 2 (two) times a day. Active immune globulin, GAMMAGARD, (GAMMAGARD LIQUID) 10 % solution Infuse 250 mL (25 g total) into a venous catheter once a week. 03/23/2020 Active omeprazole (PriLOSEC) 40 mg capsule Take 40 mg by mouth 2 (two) times a day. 12/09/2020 Active diazePAM (VALIUM) 5 mg tablet Take 1 tablet (5 mg total) by mouth in the morning and at bedtime. Active propranolol LA (INDERAL LA) 60 mg 24 hr capsule Take 1 capsule (60 mg total) by mouth in the morning. Active mirtazapine (REMERON) 15 mg tablet Take 2 tablets (30 mg total) by mouth nightly. Active levothyroxine (SYNTHROID, LEVOTHROID) 50 MCG tablet Take 2 tablets (100 mcg total) by mouth in the morning. Active liothyronine (CYTOMEL) 5 MCG tablet Take 1 tablet (5 mcg total) by mouth in the morning. Active midodrine (PROAMATINE) 5 mg tablet Take 1 tablet (5 mg total) by mouth as needed. Active SITagliptin phosphate (JANUVIA) 100 mg tablet Take 1 tablet (100 mg total) by mouth in the morning. Active buPROPion SR (WELLBUTRIN SR) 150 mg 12 hr tablet Take 1 tablet (150 mg total) by mouth in the morning and 1 tablet (150 mg total) before bedtime. 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 Date Type Department Care Team Description 08/31/2024 Travel 08/04/2024 Travel 07/14/2024 Travel 06/18/2024 Travel from Last 3 Months Social History Tobacco Use Types Packs/Day Years Used Date Smoking Tobacco: Former Cigarettes Q uit: 03/22/2015 Smokeless Tobacco: Never Alcohol Use Standard Drinks/Week Comments No 0 (1 standard drink = 0.6 oz pur e alcohol) Childcare Answer Date Recorded Childcare Unknown 07/29/2018 Employment Answer Date Recorded Employment Unknown 07/29/2018 Hunger Screening Answer Date Recorded Within the past 12 months we worried whether our food would run out before we got money to buy more. Never True 09/01/2024 Within the past 12 months th e food we bought just didn't last and we didn't have money to get more. Never True 09/01/2024 Purpose - Life Answer Date Recorded Purpose and direction in life Unknown Comments Unknown Sex and Gender Information Value Date Recorded Sex Assigned at Female 04/27/2024 2:38 PM EDT Legal Sex Female 2:29 PM EDT Gender Identity Female 04/27/2024 2:38 PM EDT Sexual Orientation Not on file Plan of Treatment Health Maintenance Due Date Last Done Comments Depression Screening 1997 Tobacco Screening 1997 Adult BMI Screening 11/09/2003 DTaP,Tdap and Td Vaccines (1 - Tdap) 2004 Pap Smear 2006 Influenza Vaccine 10/20/2024 Medical Devices Not on file Insurance [place] [address] MEDICAID Care Teams Bit Grinder Relationship Specialty Start Date End Date Dc Banks DO PCP - General 09/18/16
--- OUTSIDE RECORDS SUMMARY | 2024-09-11 08:33 | XMS_ITS | Encounter Summary ---
Author Organization [facility] Address [address] [place] [address] Care Team Providers Care Airport Operations Crew Member Name Role Phone Dc Banks Primary Care Provider [phone] Kathryn Gutierrez RN Unavailable Unavaila ble Source Comments In the event this information is protected by the Federal Confidentiality of Alcohol and Drug AbusePatient Records regulations: The Federal rules restrict any use of the information to criminally investigate or prosecute any alcohol or drug abuse patient.[facility] Encounter Details Date Type Department Care Team (Late st Contact Info) Description 12/29/2021 Patient Msg Neurology [address] [place], [place] [phone] Provider, Ccf Important Medication Instructions for Neuro Autonomic ANS with TILT and QSART 01/24 Social History Tobacco Use Types Packs/Day Years [...] N ot on file 08/08/2021 Data from: https://www.neighborhoodatlas.[facility]/. Last address used for calculation [address] [...] hearing? Answer Date of Assessment Author No 07/20/2016 2:32 PM EDT Candi Tyler RN * Are you blind or do you have serious difficulty seeing, even when wearing glasses? Answer Date of Assessment Author No 07/20/2016 2:32 PM EDT Candi Tyler RN * Do you have serious difficulty walking or climbing stairs? Answer Date of Assessment Author No 07/20/2016 2:32 PM EDT Candi Tyler RN * Do you have difficulty dressing or bathing? Answer Date of Assessment Author No 07/20/2016 2:32 PM EDT Candi Tyler RN * Because of a physical, mental, or emotional condition, do you have difficulty doing errands alone such as visiting a doctor's office or shopping? Answer Date of Assessment Author No 07/20/2016 2:32 PM EDT Candi Tyler RN documented as of this encounter Mental Status * Because of a physical, mental, or emotional condition, do you have serious difficulty concentrating, remembering, or making decisions? 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 I l l explain 11/13/2024 10:30 AM EDT [facility] [address] [address] Carlos Kiser MD, PhD [address] [place], [place] [phone] CVID 11/20/2024 12:00 PM EDT Procedure Cardiology [address] [place] [address] VELAZQUEZ CX/SHREE LIST. 11/20/2024 12:45 PM EDT Office Visit Cardiology [address] [place] [address] Liu Rowe MD [address] [place] [address] VELAZQUEZ CX/SHREE LIST. documented as of this encounter Visit Diagnoses Not on filedocumented in this encounter Additional Health Concerns Infection Onset Date Last Indicated Resolved Time COVID-19 Rule-Out 01/26/2022 01/26/2022 01/26/2022 8:17 PM EST documented as of this encounter Care Teams Airport Operations Crew Member Relationship Specialty Start Date End Date Dc Banks DO PCP - General Family Medicine 08/03/10 Kathryn Gutierrez, ARMANI 9500 [facility] [place] [place] [address] Specialty Home Service Technician Hematology 04/03/22 documented as of this encounter
--- OUTSIDE RECORDS SUMMARY | 2024-09-11 08:33 | XMS_ITS | Encounter Summary ---
Author Organization [facility] Address [address] [place] [address] Care Team Providers Care Container Crane Operator Name Role Phone Dc Banks Primary Care Provider [phone] Kathryn Gutierrez RN Unavailable Unavaila ble Source Comments In the event this information is protected by the Federal Confidentiality of Alcohol and Drug AbusePatient Records regulations: The Federal rules restrict any use of the information to criminally investigate or prosecute any alcohol or drug abuse patient.[facility] Encounter Details Date Type Department Care Team (Late st Contact Info) Description 10/24/2022 Patient Msg Neurology [address] [place], [place] [phone] Provider, Ccf IMPORTANT MEDICATION INSTRUCTIONS FOR AUTONOMIC TESTING 11/20-QSART & ANS W/TILT Social History Tobacco Use Types Packs/Day Years [...] lower risk 4 06/27/2022 Data from: https://www.neighborhoodatlas.[facility]/. 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 I l l explain 11/13/2024 10:30 AM EDT [facility] [address] [address] Carlos Kiser MD, PhD [address] [place] [address] CVID 11/20/2024 12:00 PM EDT Procedure Cardiology [address] [place] [address] VELAZQUEZ CX/SHREE LIST. 11/20/2024 12:45 PM EDT Office Visit Cardiology [address] [place] [address] Liu Rowe MD [address] [place] [address] VELAZQUEZ CX/SHREE LIST. documented as of this encounter Visit Diagnoses Not on filedocumented in this encounter Care Teams Container Crane Operator Relationship Specialty Start Date End Date Dc Banks DO PCP - General Family Medicine 08/03/10 Kathryn Gutierrez, RN 9500 [facility] [address] [place] [address] Specialty Office Rental Clerk Hematology 04/03/22 documented as of this encounter
--- OUTSIDE RECORDS SUMMARY | 2024-09-11 08:33 | XMS_ITS | Encounter Summary ---
Author Organization [facility] Address [address] [place] [address] Care Team Providers Care Oyster Bed Worker Name Role Phone Dc Banks Primary Care Provider [phone] Kathryn Gutierrez RN Unavailable Unavaila ble Source Comments In the event this information is protected by the Federal Confidentiality of Alcohol and Drug AbusePatient Records regulations: The Federal rules restrict any use of the information to criminally investigate or prosecute any alcohol or drug abuse patient.[facility] Encounter Details Date Type Department Care Team (Late st Contact Info) Description 09/20/2022 Patient Msg Neurology [address] [place], [place] [phone] Provider, Ccf Important Medication Instructions for Neuro Autonomic ANS with TILT and QSART 10/24 Social History Tobacco Use Types Packs/Day Years [...] risk 4 06/27/2022 Data from: https://www.neighborhoodatlas.[facility]/. Last address used for calculation [address] [...] 09/16/2024 2:30 PM EDT OT/PT/Speech Visit 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 I l l explain 11/13/2024 10:30 AM EDT [facility] [address] [address] Carlos Kiser MD, PhD [address] [place] [address] CVID 11/20/2024 12:00 PM EDT Procedure Cardiology [address] [place] [address] VELAZQUEZ CX/SHREE LIST. 11/20/2024 12:45 PM EDT Office Visit Cardiology [address] [place] [address] Liu Rowe MD [address] [place] [address] VELAZQUEZ CX/SHREE LIST. documented as of this encounter Visit Diagnoses Not on filedocumented in this encounter Care Teams Oyster Bed Worker Relationship Specialty Start Date End Date Dc Banks DO PCP - General Family Medicine 08/03/10 Kathryn Gutierrez, RN 9500 [facility] [address] [place] [address] Specialty Tip Scourer Hematology 04/03/22 documented as of this encounter
--- OUTSIDE RECORDS SUMMARY | 2024-09-11 08:33 | XMS_ITS | Encounter Summary ---
Author Organization [facility] Address [address] [place], [place] [phone] Care Team Providers Care Bed And Breakfast Operator Name Role Phone Dc Banks Primary Care Provider [phone] Kathryn Gutierrez RN Unavailable Unavaila ble Source Comments In the event this information is protected by the Federal Confidentiality of Alcohol and Drug AbusePatient Records regulations: The Federal rules restrict any use of the information to criminally investigate or prosecute any alcohol or drug abuse patient.[facility] Encounter Details Date Type Department Care Team (Late st Contact Info) Description 03/16/2023 Get Medical Advice Rheumatology [address] [place] [address] Carlos Kiser MD, PhD [address] [place], [place] [phone] Recent ER visit Social History Tobacco Use Types Packs/Day [...] is lower risk 4 06/27/2022 Data from: https://www.neighborhoodatlas.medicine.[facility].edu/. 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 I l l explain 11/13/2024 10:30 AM EDT [facility] Allergy [address] [address] Carlos Kiser MD, PhD [address] [place], [place] [phone] CVID 11/20/2024 12:00 PM EDT Procedure Cardiology [address] [place] [address] VELAZQUEZ CX/SHREE LIST. 11/20/2024 12:45 PM EDT Office Visit Cardiology [address] [place] [address] Liu Rowe MD [address] [place] [address] VELAZQUEZ CX/SHREE LIST. documented as of this encounter Visit Diagnoses Not on filedocumented in this encounter Care Teams Bed And Breakfast Operator Relationship Specialty Start Date End Date Dc Banks DO PCP - General Family Medicine 08/03/10 Kathryn Gutierrez, ARMANI [address]00 [facility] [address] [place] [address] Specialty Screw Remover Hematology 04/03/22 documented as of this encounter
--- OUTSIDE RECORDS SUMMARY | 2024-09-11 08:33 | XMS_ITS | Encounter Summary ---
Author Organization [facility] Address [address] [place] [address] Care Team Providers Care Pinner Printed Circuit Boards Name Role Phone Dc Banks Primary Care Provider [phone] Kathryn Gutierrez RN Unavailable Unavaila ble Source Comments In the event this information is protected by the Federal Confidentiality of Alcohol and Drug AbusePatient Records regulations: The Federal rules restrict any use of the information to criminally investigate or prosecute any alcohol or drug abuse patient.[facility] Encounter Details Date Type Department Care Team (Late st Contact Info) Description 02/14/2022 Patient Msg Hematology/Oncology [address] [id number] [place] [address] [place] [address] Request an Appointment Social History Tobacco Use Types Packs/Day Years Used Date Smoking Tobacco: Former Cigarettes 0.5 6 1 02/19/2007 - 12/20/2013 Smokeless Tobacco: Never Alcohol Use Standard Drinks/Week Comments No 0 (1 standard drink = 0.6 oz pur e alcohol) PHQ-2 Answer Date Recorded PHQ-2 score 4 02/09/2022 Area Deprivation Index Answer Date Slava rded National Score (1-100), lower number is lower ri sk 65 08/08/2021 State Score (1-10), lower number is lower risk N ot on file 08/08/2021 Data from: https://www.neighborhoodatlas.medicine.[facility].edu/. 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 I l l explain 11/13/2024 10:30 AM EDT [facility] Allergy [address] [address] Carlos Kiser MD, PhD [address] [place] [address] CVID 11/20/2024 12:00 PM EDT Procedure Cardiology 9[address] [place] [address] VELAZQUEZ CX/SHREE LIST. 11/20/2024 12:45 PM EDT Office Visit Cardiology [address] [place] [address] Liu Rowe MD [address]00 [place] [address] VELAZQUEZ CX/SHREE LIST. documented as of this encounter Visit Diagnoses Not on filedocumented in this encounter Care Teams Pinner Printed Circuit Boards Relationship Specialty Start Date End Date Dc Banks DO PCP - General Family Medicine 08/03/10 Kathryn Gutierrez, RN [address] [place] [address] Specialty Insurance Verification Specialist Hematology 04/03/22 documented as of this encounter
--- OUTSIDE RECORDS SUMMARY | 2024-09-11 08:33 | XMS_ITS | Encounter Summary ---
Author Organization [facility] Address [address] [place] [address] Care Team Providers Care Field Director Name Role Phone Dc Banks Primary Care Provider [phone] Kathryn Gutierrez RN Unavailable Unavaila ble Source Comments In the event this information is protected by the Federal Confidentiality of Alcohol and Drug AbusePatient Records regulations: The Federal rules restrict any use of the information to criminally investigate or prosecute any alcohol or drug abuse patient.[facility] Encounter Details Date Type Department Care Team (Late st Contact Info) Description 01/19/2022 Get Medical Advice Hematology/Oncology [address] [phone] [place] [address] [place] [address] Lab results Social History Tobacco Use Types Packs/Day Years Used Date Smoking Tobacco: Former Cigarettes 0.5 6 1 02/19/2007 - 12/20/2013 Smokeless Tobacco: Never Alcohol Use Standard Drinks/Week Comments No 0 (1 standard drink = 0.6 oz pur e alcohol) PHQ-2 Answer Date Recorded PHQ-2 score 6 11/27/2021 Area Deprivation Index Answer Date Slava rded National Score (1-100), lower number is lower ri 65 08/08/2021 State Score (1-10), lower number is lower risk N ot on file 08/08/2021 Data from: https://www.neighborhoodatlas.medicine.[facility].edu/. Last address used for calculation [address] [...] Candi Tyler RN documented in this encounter Miscellaneous Notes * Telephone Encounter - Pamella Guerra - 01/20/2022 1:57 PM EST Juli returned called to Dr. Corona- unavailable to take call at this time due to meeting. 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 I l l explain 11/13/2024 10:30 AM EDT [facility] Allergy [address] [address] Carlos Kiser MD, PhD [address]00 [place] [address] CVID 11/20/2024 12:00 PM EDT Procedure Cardiology 9[address] [place] [address] VELAZQUEZ CX/SHREE LIST. 11/20/2024 12:45 PM EDT Office Visit Cardiology [address] [place] [address] Liu Rowe MD [address] [place] [address] VELAZQUEZ CX/SHREE LIST. documented as of this encounter Visit Diagnoses Not on filedocumented in this encounter Additional Health Concerns Infection Onset Date Last Indicated Resolved Time COVID-19 Rule-Out 01/26/2022 01/26/2022 01/26/2022 8:17 PM EST documented as of this encounter Care Teams Field Director Relationship Specialty Start Date End Date Dc Banks DO PCP - General Family Medicine 08/03/10 Kathryn Gutierrez, RN [address] [place] [address] Specialty Fruit Sorter Hematology 04/03/22 documented as of this encounter
--- OUTSIDE RECORDS SUMMARY | 2024-09-11 08:33 | XMS_ITS | Encounter Summary ---
Author Organization [facility] Address [address] [place] [address] Care Team Providers Care Vault Person Name Role Phone Dc Banks Primary Care Provider [phone] Kathryn Gutierrez RN Unavailable Unavaila ble Source Comments In the event this information is protected by the Federal Confidentiality of Alcohol and Drug AbusePatient Records regulations: The Federal rules restrict any use of the information to criminally investigate or prosecute any alcohol or drug abuse patient.[facility] Encounter Details Date Type Department Care Team (Late st Contact Info) Description 04/08/2015 Patient Msg Medical Records [address] [place] [address] Provider, [facility] Procedure Social History Tobacco Use Types Packs/Day Years Used Date Smoking Tobacco: Former Cigarettes 0.5 6 1 02/19/2007 - 12/20/2013 Smokeless Tobacco: Never Alcohol Use Standard Drinks/Week Comments No 0 (1 standard drink = 0.6 oz pur e alcohol) Comments No Sex and Gender Information Value Date Recorded Sex Assigned at Female 11/11/2019 8:58 AM EDT Legal Sex Female 8:12 AM EST Gender Identity Female 11/11/2019 8:58 AM EDT Sexual Orientation Not on file documented as of this encounter Functional Status * Are you deaf or do you have serious difficulty hearing? Answer Date of Assessment Author No 03/19/2015 8:16 PM Chela Johnson RN * Are you blind or do you have serious difficulty seeing, even when wearing glasses? Answer Date of Assessment Author No 03/19/2015 8:16 PM Chela Johnson RN * Do you have serious difficulty walking or climbing stairs? Answer Date of Assessment Author No 03/19/2015 8:16 PM Chela Johnson RN * Do you have difficulty dressing or bathing? Answer Date of Assessment Author No 03/19/2015 8:16 PM Chela Johnson RN * Because of a physical, mental, or emotional condition, do you have difficulty doing errands alone such as visiting a doctor's office or shopping? Answer Date of Assessment Author No 03/19/2015 8:16 PM Chela Johnson RN documented as of this encounter Mental Status * Because of a physical, mental, or emotional condition, do you have serious difficulty concentrating, remembering, or making decisions? Answer Entry Date Author No 03/19/2015 8:16 PM Chela Johnson RN documented in this encounter Plan of Treatment Upcoming Encounters Date Type Department Care Team (Latest Contact Info) Description 09/16/2024 2:30 PM EDT OT/PT/Speech Visit [facility] Physical Therapy [address] [facility] [place] [address] Claribel Katz, PT [address] [place] [address] Functional neurological symptom disorder with mixed symptoms [F44.7] 09/17/2024 1:30 PM EDT Office Visit Integrative Medicine [address] [place] [address] Daren Munson DC 9500 [place] [address] Visit 8 of 15 - Medicaid 10/14/2024 4:00 PM EDT [facility] Neurological Zoroastrian [address] [place] [address] Sylwia Mathis, SWETA [address]00 [place] [address] I apologize I missed our last visit. I l l explain 11/13/2024 10:30 AM EDT [facility] Allergy [address] [address] Carlos Kiser MD, PhD [address] [place], [place] [id number] CVID 11/20/2024 12:00 PM EDT Procedure Cardiology [address] [place] [address] VELAZQUEZ CX/SHREE LIST. 11/20/2024 12:45 PM EDT Office Visit Cardiology [address] [place] [address] Liu Rowe MD [address] [place] [address] VELAZQUEZ CX/SHREE LIST. documented as of this encounter Visit Diagnoses Not on filedocumented in this encounter Additional Health Concerns Infection Onset Date Last Indicated Resolved Time COVID-19 Rule-Out 01/26/2022 01/26/2022 01/26/2022 8:17 PM EST documented as of this encounter Care Teams Vault Person Relationship Specialty Start Date End Date Dc Banks DO PCP - General Family Medicine 08/03/10 Kathryn Gutierrez, ARMANI [address] [facility] [address] [place] [address] Specialty Behavior Analyst Hematology 04/03/22 documented as of this encounter
--- OUTSIDE RECORDS SUMMARY | 2024-09-11 08:33 | XMS_ITS | Encounter Summary ---
Author Organization [facility] Address [address] [place] [address] Care Team Providers Care Drafter Patent Name Role Phone Dc Banks Primary Care Provider [phone] Kathryn Gutierrez RN Unavailable Unavaila ble Source Comments In the event this information is protected by the Federal Confidentiality of Alcohol and Drug AbusePatient Records regulations: The Federal rules restrict any use of the information to criminally investigate or prosecute any alcohol or drug abuse patient.[facility] Encounter Details Date Type Department Care Team (Late st Contact Info) Description 2022 Patient Msg Neurology [address] [place] [address] Tasha Saucedo, CABLE OPERATOR.[address] [address] After visit summary Social History Tobacco Use Types Packs/Day Years [...] is lower risk 4 06/27/2022 Data from: https://www.neighborhoodatlas.medicine.[facility]/. 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 I l l explain 11/13/2024 10:30 AM EDT [facility] Allergy [address] [address] Carlos Kiser MD, PhD [address] [place], [place] [id number] CVID 11/20/2024 12:00 PM EDT Procedure Cardiology [address] [place] [address] VELAZQUEZ CX/SHREE LIST. 11/20/2024 12:45 PM EDT Office Visit Cardiology [address] [place] [address] Liu Rowe MD [address] [place] [address] VELAZQUEZ CX/SHREE LIST. documented as of this encounter Visit Diagnoses Not on filedocumented in this encounter Care Teams Drafter Patent Relationship Specialty Start Date End Date Dc Banks DO PCP - General Family Medicine 08/03/10 Kathryn Gutierrez, RN [address] [facility] [address] [place] [address] Specialty Wharf Builder Hematology 04/03/22 documented as of this encounter
--- OUTSIDE RECORDS SUMMARY | 2024-09-11 08:33 | XMS_ITS | Encounter Summary ---
Author Organization [facility] Address [address] [place] [address] Care Team Providers Care Senior Dynamics Crm Developer Name Role Phone Dc Banks Primary Care Provider [phone] Kathryn Gutierrez RN Unavailable Unavaila ble Source Comments In the event this information is protected by the Federal Confidentiality of Alcohol and Drug AbusePatient Records regulations: The Federal rules restrict any use of the information to criminally investigate or prosecute any alcohol or drug abuse patient.[facility] Encounter Details Date Type Department Care Team (Late st Contact Info) Description 01/22/2023 Patient Msg Psychiatry [address] [place] [address] Veronica Costa MD Treatment plan from today's visit Social History Tobacco Use Types Packs/Day Years Used Date Smoking Tobacco: Former Cigarettes 0.5 6 1 02/19/2009 - 12/21/2015 Smokeless Tobacco: Never Alcohol Use Standard Drinks/Week Comments Yes 0 (1 standard drink = 0.6 oz pur e alcohol) less than 1 drink per week PHQ-2 Answer Date Recorded PHQ-2 score 6 01/22/2023 Area Deprivation Index Answer Date Slava rded National Score (1-100), lower number is lower ri sk 61 06/27/2022 State Score (1-10), lower number is lower risk 4 06/27/2022 Data from: https://www.neighborhoodatlas.medicine.[facility]/. Last address used for calculation [...] Description 09/16/2024 2:30 PM EDT OT/PT/Speech Visit [facility] Physical Therapy [address] [place], [place] [phone] Claribel Katz, PT [address] [place] [address] Functional neurological symptom disorder with mixed symptoms [F44.7] 09/17/2024 1:30 PM EDT Office Visit Integrative Medicine [address] [place] [address] Daren Munson DC [address] [place] [address] Visit 8 of - Medicaid 10/14/2024 4:00 PM EDT [facility] Neurological Denominational [address] [place] [address] Sylwia Mathis PA-C [address] [place] [address] I apologize I missed our last visit. I l l explain 11/13/2024 10:30 AM EDT [facility] Allergy [address] [address] Carlos Kiser MD, PhD [address] [place], [place] [phone] CVID 11/20/2024 12:00 PM EDT Procedure Cardiology 9[address] [place] [address] VELAZQUEZ CX/SHREE LIST. 11/20/2024 12:45 PM EDT Office Visit Cardiology [address] [place] [address] Liu Rowe MD [address] [place] [address] VELAZQUEZ CX/SHREE LIST. documented as of this encounter Visit Diagnoses Not on filedocumented in this encounter Care Teams Senior Dynamics Crm Developer Relationship Specialty Start Date End Date Dc Banks DO PCP - General Family Medicine 08/03/10 Kathryn Gutierrez, RN [address]00 [facility] [address] [place] [address] Specialty Microcomputer Support Specialist Hematology 04/03/22 documented as of this encounter
--- OUTSIDE RECORDS SUMMARY | 2024-09-11 08:33 | XMS_ITS | Encounter Summary ---
Author Organization [facility] Address [address] [place] [address] Care Team Providers Care Die Holder Name Role Phone Dc Banks Primary Care Provider [phone] Kathryn Gutierrez RN Unavailable Unavaila ble Source Comments In the event this information is protected by the Federal Confidentiality of Alcohol and Drug AbusePatient Records regulations: The Federal rules restrict any use of the information to criminally investigate or prosecute any alcohol or drug abuse patient.[facility] Encounter Details Date Type Department Care Team (Late st Contact Info) Description 03/07/2023 Abstract Allergy [address] [place] [address] Jenny South, JOHANNA.DIRECTOR TELEVISION NEWS [address] [place] [address] Social History Tobacco Use Types Packs/Day Years [...] is lower risk 4 06/27/2022 Data from: https://www.neighborhoodatlas.medicine.[facility]/. 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 I l l explain 11/13/2024 10:30 AM EDT [facility] Allergy [address] [address] Carlos Kiser MD, PhD [address] [place], [place] [phone] CVID 11/20/2024 12:00 PM EDT Procedure Cardiology [address] [place] [address] VELAZQUEZ CX/SHREE LIST. 11/20/2024 12:45 PM EDT Office Visit Cardiology [address] [place] [address] Liu Rowe MD [address] [place] [address] VELAZQUEZ CX/SHREE LIST. documented as of this encounter Visit Diagnoses Not on filedocumented in this encounter Care Teams Die Holder Relationship Specialty Start Date End Date Dc Banks DO PCP - General Family Medicine 08/03/10 Kathryn Gutierrez, RN [address]00 [facility] [address] [place] [address] Specialty Railcar Carpenter Hematology 04/03/22 documented as of this encounter
--- OUTSIDE RECORDS SUMMARY | 2024-09-11 08:33 | XMS_ITS | Encounter Summary ---
Author Organization [facility] Address [address] [place], [place] [phone] Care Team Providers Care Concrete Analyst Name Role Phone Dc Banks Primary Care Provider [phone] Kathryn Gutierrez RN Unavailable Unavaila ble Source Comments In the event this information is protected by the Federal Confidentiality of Alcohol and Drug AbusePatient Records regulations: The Federal rules restrict any use of the information to criminally investigate or prosecute any alcohol or drug abuse patient.[facility] Encounter Details Date Type Department Care Team (Late st Contact Info) Description 08/24/2022 Patient [facility] [address] [place] [address] Bebeto Perry MD [address] [place], [place] [phone] [place] lab results Social History Tobacco Use Types Packs/Day [...] is lower risk 4 06/27/2022 Data from: https://www.neighborhoodatlas.medicine.[facility]/. 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 I l l explain 11/13/2024 10:30 AM EDT [facility] Allergy [address] [address] Carlos Kiser MD, PhD [address] [place], [place] [phone] CVID 11/20/2024 12:00 PM EDT Procedure Cardiology [address] [place] [address] VELAZQUEZ CX/SHREE LIST. 11/20/2024 12:45 PM EDT Office Visit Cardiology [address] [place] [address] Liu Rowe MD [address] [place] [address] VELAZQUEZ CX/SHREE LIST. documented as of this encounter Visit Diagnoses Not on filedocumented in this encounter Care Teams Concrete Analyst Relationship Specialty Start Date End Date Dc Banks DO PCP - General Family Medicine 08/03/10 Kathryn Gutierrez, RN 9500 [facility] [address] [place] [address] Specialty Wax Specialist Hematology 04/03/22 documented as of this encounter
--- OUTSIDE RECORDS SUMMARY | 2024-09-11 08:33 | XMS_ITS | Encounter Summary ---
Author Organization [facility] Address [address] [place] [address] Care Team Providers Care Biztalk Administrator Name Role Phone Dc Banks Primary Care Provider [phone] Kathryn Gutierrez RN Unavailable Unavaila ble Source Comments In the event this information is protected by the Federal Confidentiality of Alcohol and Drug AbusePatient Records regulations: The Federal rules restrict any use of the information to criminally investigate or prosecute any alcohol or drug abuse patient.[facility] Encounter Details Date Type Department Care Team (Late st Contact Info) Description 06/11/2015 Patient Msg Medical Records [address] [place] [address] Provider, [facility] Procedure Social [...] hearing? Answer Date of Assessment Author No 06/01/2015 4:15 PM EDT Sue Easley RN * Are you blind or do you have serious difficulty seeing, even when wearing glasses? Answer Date of Assessment Author No 06/01/2015 4:15 PM EDT Sue Easley RN * Do you have serious difficulty walking or climbing stairs? Answer Date of Assessment Author No 06/01/2015 4:15 PM EDT Sue Easley RN * Do you have difficulty dressing or bathing? Answer Date of Assessment Author No 06/01/2015 4:15 PM EDT Sue Easley RN * Because of a physical, mental, or emotional condition, do you have difficulty doing errands alone such as visiting a doctor's office or shopping? Answer Date of Assessment Author No 06/01/2015 4:15 PM EDT Sue Easley RN documented as of this encounter Mental Status * Because of a physical, mental, or emotional condition, do you have serious difficulty concentrating, remembering, or making decisions? 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 I l l explain 11/13/2024 10:30 AM EDT [facility] Allergy [address] [address] Carols Kiser MD, PhD [address] [place], [place] [phone] CVID 11/20/2024 12:00 PM EDT Procedure Cardiology [address] [place] [address] VELAZQUEZ CX/SHREE LIST. 11/20/2024 12:45 PM EDT Office Visit Cardiology [address] [place], [place] [phone] Liu Rowe MD [address] [place], [place] [phone] PER DR VELAZQUEZ CX/SHREE LIST. documented as of this encounter Visit Diagnoses Not on filedocumented in this encounter Additional Health Concerns Infection Onset Date Last Indicated Resolved Time COVID-19 Rule-Out 01/26/2022 01/26/2022 01/26/2022 8:17 PM EST documented as of this encounter Care Teams Biztalk Administrator Relationship Specialty Start Date End Date Dc Banks DO PCP - General Family Medicine 08/03/10 Kathryn Gutierrez, ARMANI 9500 [facility] [address] [place] [address] Specialty Personal Banking Representative Hematology 04/03/22 documented as of this encounter
--- OUTSIDE RECORDS SUMMARY | 2024-09-11 08:33 | XMS_ITS | Encounter Summary ---
Author Organization [facility] Address [address] [place] [address] Care Team Providers Care Shopper Insights Manager Name Role Phone Dc Banks Primary Care Provider [phone] Kathryn Gutierrez RN Unavailable Unavaila ble Source Comments In the event this information is protected by the Federal Confidentiality of Alcohol and Drug AbusePatient Records regulations: The Federal rules restrict any use of the information to criminally investigate or prosecute any alcohol or drug abuse patient.[facility] Encounter Details Date Type Department Care Team (Late st Contact Info) Description 01/22/2023 Abstract Allergy [address] [address] Jenny South APRN.COUNSELLING PSYCHOLOGIST [address] [place] [address] Social History Tobacco Use Types Packs/Day Years [...] is lower risk 4 06/27/2022 Data from: https://www.neighborhoodatlas.medicine.[facility]/. Last address used for calculation [address] [...] [facility] [address] [place] [address] Claribel Katz, PT [address] [place] [address] Functional neurological symptom disorder with mixed symptoms [F44.7] 09/17/2024 1:30 PM EDT Office Visit Integrative Medicine [address] [place] [address] Daren Munson DC [address] [place] [address] Visit 8 of - Medicaid 10/14/2024 4:00 PM EDT [facility] [address] [place] [address] Sylwia Mathis PA-C [address] [place] [address] I apologize I missed our last visit. I l l explain 11/13/2024 10:30 AM EDT [facility] Allergy [address] [address] Carlos Kiser MD, PhD [address] [place], [place] [id number] CVID 11/20/2024 12:00 PM EDT Procedure Cardiology [address] [place] [address] VELAZQUEZ CX/SHREE LIST. 11/20/2024 12:45 PM EDT Office Visit Cardiology [address] [place] [address] Liu Rowe MD [address] [place] [address] VELAZQUEZ CX/SHREE LIST. documented as of this encounter Visit Diagnoses Not on filedocumented in this encounter Care Teams Shopper Insights Manager Relationship Specialty Start Date End Date Dc Banks DO PCP - General Family Medicine 08/03/10 Kathryn Gutierrez, RN [address] [facility] [address] [place] [address] Specialty Range Manager Hematology 04/03/22 documented as of this encounter
--- OUTSIDE RECORDS SUMMARY | 2024-09-11 08:33 | XMS_ITS | Clinical Summary ---
Author Organization [facility] Address [address] [place] [address] Care Team Providers Care Sheep And Wheat Farmer Name Role Phone Dc Banks MD Primary Care Provider [phone] Allergies Active Allergy Reactions Criticality Noted Date Comments 5ht3 Receptor Antagonists 10/06/2010 Other Reaction(s): Other: See Comments Other reaction(s): Other: See Comments It knocks me out. It knocks me out. Carbinoxamine 08/04/2021 Other Reaction(s): Unknown Reaction Chlorpheniramine-Phenylephrine 10/17 Other Reaction(s): Unknown Latex Rash,Swelling Low 1985 Medroxyprogesterone 10/24/2019 Other 07/30/2008 crying for 12 solid hours-per mom Pseudoephedrine 08/04/2021 Other Reaction(s): Unknown Reaction Medications sodium chloride 0.9 % solution Infuse weekly 1000 mL prior to IVIG infusion and 1000 mL after IVIG infusion 3 Active propranolol LA (Inderal LA) 60 MG 24 hr capsule Take 60 mg by mouth in the morning. Active predniSONE (Deltasone) 10 MG tablet 5 po daily x 5 days, then 4 daily x 3 days, 3 daily x 3 days, 2 daily x 3 days, 1 daily x 3 days 4 Active potassium chloride ER (Micro-K) 10 MEQ ER capsule Take 10 mEq by mouth in the morning. Active ondansetron ODT (Zofran-ODT) 4 MG disintegrating tablet Take 1 tablet by mouth every 8 (eight) hours if needed 3 Active omeprazole (PriLOSEC) [address] capsule Take 40 mg by mouth in the morning and 40 mg before bedtime. Active omega-3 (Fish Oil) 1000 MG capsule Take 1,000 mg by mouth in the morning. Active Mag64 64 MG EC tablet TAKE ONE TABLET BY MOUTH ONCE DAILY (WITH THE VITAMIN D) Active levothyroxine (Synthroid, Levoxyl) 50 MCG tablet Take 1 tablet by mouth in the morning. 4 Active Gammagard infusion Infuse 20 g into a venous catheter 3 Active Gammagard infusion Infuse 5 g into a venous catheter 4 Active hydrOXYzine HCl (Atarax) 10 MG tablet 1 (one) time each day at the same time Active diazePAM (Valium) 5 MG tablet TAKE 1 TABLET BY MOUTH EVERY 8 HOURS NEEDED FOR ANXIETY OR SLEEP FOR UP TO 90 DAYS. MAX DAILY AMOUNT 15 MG Active cholecalciferol (Vitamin D-3) 125 MCG (5000 UT) capsule TAKE ONE CAPSULE BY MOUTH ONCE DAILY WITH FOOD Active busPIRone (Buspar) 10 MG tablet Take 30 mg by mouth in the morning and 30 mg before bedtime. Active furosemide (Lasix) 10 MG/ML solution Take by mouth Active SITagliptin (Januvia) 25 MG tablet Take 25 mg by mouth Daily Active buPROPion SR (Wellbutrin SR) 150 MG 12 hr tablet Take 150 mg by mouth in the morning and 150 mg in the evening. Active Active Problems No known active problems Family History Medical History Relation Name Comments Alcohol abuse Father Gout Father Diabetes Mother Hyperlipidemia Mother Hypertension Mother Raynaud syndrome Mother Graves' disease Mother's Sister Neel's thyroiditis Mother's Sister Hypothyroidism Mother's Sister Lung cancer Paternal Grandmother AVM Sister postural orthostatic tachycaria syndrome Sister Relation Name Status Comments Father Mother Mother's Sister Paternal Grandmother Sister Social History Tobacco Use Types Packs/Day Years Used Date Smoking Tobacco: Never Smokeless Tobacco: Never Tobacco Cessation:Counseling Given: Not Answered Comments Unknown Sex and Gender Information Value Date Recorded Sex Assigned at Female 03/15/2023 9:31 AM EST Legal Sex Female 11:19 PM EDT Gender Identity Female 03/15/2023 9:31 AM EST Sexual Orientation Straight 03/15/2023 9: 31 AM EST Last Filed Vital Signs Vital Sign Reading Time Taken Comments Blood Pressure 124/76 03/22/2023 3:50 PM EST Pulse - - Temperature - - Respiratory Rate - - Oxygen Saturation - - Inhaled Oxygen Concentration - - Weight 74.4 kg (164 lb) 03/10/2024 3:37 PM EST Height 156.2 cm (5' 1.5 ) 08/09/2023 10:12 AM ED T Body Mass Index 30.49 08/09/2023 10:12 AM EDT Plan of Treatment Not on file Insurance [facility] MEDICAID Care Teams Sheep And Wheat Farmer Relationship Specialty Start Date End Date Dc Banks MD [address] [place] [address] PCP - General Route Supervisor 03/22/23
--- OUTSIDE RECORDS SUMMARY | 2024-09-11 08:33 | XMS_ITS | Encounter Summary ---
Author Organization [facility] Address [address] [place] [address] Care Team Providers Care All Purpose Clerk Name Role Phone Dc Banks Primary Care Provider [phone] Kathryn Gutierrez RN Unavailable Unavaila ble Source Comments In the event this information is protected by the Federal Confidentiality of Alcohol and Drug AbusePatient Records regulations: The Federal rules restrict any use of the information to criminally investigate or prosecute any alcohol or drug abuse patient.[facility] Encounter Details Date Type Department Care Team (Late st Contact Info) Description 02/08/2023 Get Medical Advice Rheumatology [address] [place] [address] Carlos Kiser MD, PhD [address] [place], [place] [id number] Saline & premed Social History Tobacco Use Types Packs/Day Years [...] is lower risk 4 06/27/2022 Data from: https://www.neighborhoodatlas.medicine.[facility].edu/. 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 I l l explain 11/13/2024 10:30 AM EDT [facility] Allergy [address] [address] Carlos Kiser MD, PhD [address] [place] [address] CVID 11/20/2024 12:00 PM EDT Procedure Cardiology [address] [place] [address] VELAZQUEZ CX/SHREE LIST. 11/20/2024 12:45 PM EDT Office Visit Cardiology [address] [place] [address] Liu Rowe MD [address] [place] [address] VELAZQUEZ CX/SHREE LIST. documented as of this encounter Visit Diagnoses Not on filedocumented in this encounter Care Teams All Purpose Clerk Relationship Specialty Start Date End Date Dc Banks DO PCP - General Family Medicine 08/03/10 Kathryn Gutierrez, ARMANI [address] [facility] [address] [place] [address] Specialty Raw Mill Operator Hematology 04/03/22 documented as of this encounter
--- OUTSIDE RECORDS SUMMARY | 2024-09-11 08:33 | XMS_ITS | Encounter Summary ---
Author Organization [facility] Address [address] [place] [address] Care Team Providers Care Inside Sales Representative Name Role Phone Dc Banks Primary Care Provider [phone] Kathryn Gutierrez RN Unavailable Unavaila ble Source Comments In the event this information is protected by the Federal Confidentiality of Alcohol and Drug AbusePatient Records regulations: The Federal rules restrict any use of the information to criminally investigate or prosecute any alcohol or drug abuse patient.[facility] Encounter Details Date Type Department Care Team (Late st Contact Info) Description 12/01/2022 GI Preprocedure Call [facility] [place] [address] [place] [address] Social History Tobacco Use Types Packs/Day Years [...] is lower risk 4 06/27/2022 Data from: https://www.neighborhoodatlas.medicine.[facility].edu/. Last address used for calculation [address] [...] Mallorie Jimenez RN documented in this encounter Nursing Notes * Debra Munson RN - 12/01/2022 1:20 PM EDT [facility] ENDOSCOPY PRE PROCEDURE CALL Yadira. I'm calling from [facility] endoscopy to provide you with the information for your surgery/procedure tomorrow. 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 What is the best number for your commercial collections driver to be reached at tomorrow for updates? Your commercial collections driver is allowed to wait here with you or they may drop you off and come back to pick you up. Patient instructed: Do not eat anything the morning of the procedure, including gum, hard candy andmints.Yes Patient instructed not bring any valuables, jewelry, or hernandez and wear comfortable clothing. Do not wear makeup, lotion, or finger italian. Yes Patient instructed: Please bring a list [...] given Any barriers to Patient learning (confusion? Apartment Assistant Manager needed?): Patient/Patient Continuous Improvement Analyst responded appropriately on phone. Please complete your Pre-Check In paperwork in My Chart if applicable. If patient needs to reschedule please call: [phone] [facility] phone number: [phone] Type of instruction given: Verbal by telephone contact. 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 I l l explain 11/13/2024 10:30 AM EDT [facility] Allergy [address] [address] Carlos Kiser MD, PhD [address] [place] [address] CVID 11/20/2024 12:00 PM EDT Procedure Cardiology [address] [place] [address] VELAZQUEZ CX/SHREE LIST. 11/20/2024 12:45 PM EDT Office Visit Cardiology [address] [place] [address] Liu Rowe MD [address] [place] [address] VELAZQUEZ CX/SHREE LIST. documented as of this encounter Visit Diagnoses Not on filedocumented in this encounter Care Teams Inside Sales Representative Relationship Specialty Start Date End Date Dc Banks DO PCP - General Family Medicine 08/03/10 Kathryn Gutierrez, RN [address] [place] [address] Specialty Loom Setter Hematology 04/03/22 documented as of this encounter
--- OUTSIDE RECORDS SUMMARY | 2024-09-11 08:33 | XMS_ITS | Encounter Summary ---
Author Organization [facility] Address [id number] [address] [place] [address] Care Team Providers Care Financial Services Professional Name Role Phone Dc Banks DO Primary Care Provider [phone] Encounter Details Date Type Department Care Team (Latest Contact Info) Description 08/31/2024 Travel Social History Tobacco Use Types Packs/Day Years [...] PM EDT Sexual Orientation Not on file documented as of this encounter Plan of Treatment Not on file documented as of this encounter Visit Diagnoses Not on filedocumented in this encounter Care Teams Financial Services Professional Relationship Specialty Start Date End Date Dc Banks DO PCP - General 09/18/16 documented as of this encounter
--- OUTSIDE RECORDS SUMMARY | 2024-09-11 08:33 | XMS_ITS | Clinical Summary ---
Author Organization [facility] Address [address] [place] [address], [address] [place] [address] Care Team Providers Care Feller Buncher Operator Name Role Phone DarrenDc Primary Care Provider [phone] Allergies Active Allergy Reactions Criticality Noted Date Comments 5ht3 Receptor Antagonists 10/06/2010 Other reaction(s): Other: See Comments It knocks me out. Brompheniramine-Pseudoeph 07/30/2008 crying for 12 solid hours-per mom Carbinoxamine 08/04/2021 Other Reaction(s): Unknown Reaction Chlorpheniramine-Phenylep hrine 10/17/2022 Duloxetine Other (See Comments) 05/07/2023 Eyes dilated; felt drugged Latex Rash Low 10/17/2022 Metformin And Related 06/01/2023 Hypotension Pseudoephedrine 08/04/2021 Other Reaction(s): Unknown Reaction Medications sodium chloride 0.9 % infusion Infuse 200 mL/hr intravenously continuous 021 Active Lancets (ONETOUCH DELICA PLUS [id number]) MISC 024 Active ONETOUCH ULTRA strip 024 Active Blood Glucose Monitoring Suppl (ONE TOUCH ULTRA 2) w/Device KIT Active mirtazapine (REMERON) 15 MG tablet Take 1 tablet by mouth nightly Active midodrine (PROAMATINE) 5 MG tabletIndications :Orthostatic hypotension Take 1 tablet by mouth 3 times daily 30 tablet 3 024 Active GAMMAGARD 30 GM/300ML SOLN 024 Active JANUVIA 100 MG tabletIndications :Hyperinsulinemia TAKE 1 TABLET BY MOUTH DAILY 90 tablet 1 025 Active ondansetron (ZOFRAN-ODT) 4 MG disintegrating tabletIndications :Recurrent vomiting TAKE 1 TABLET BY MOUTH EVERY 8 HOURS NEEDED FOR NAUSEA OR VOMITING 90 tablet 025 Active propranolol (INDERAL LA) 120 MG extended release capsuleIndication s:Generalized anxiety disorder Take 1 capsule by mouth daily 90 capsule 1 025 Active liothyronine (CYTOMEL) 5 MCG tabletIndications :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 TAKE ONE TABLET BY MOUTH ONCE DAILY 30 tablet 5 025 Active buPROPion (WELLBUTRIN XL) 300 MG extended release tablet Take 1 tablet by mouth daily Active levothyroxine (SYNTHROID) 125 MCG tablet TAKE ONE TABLET BY MOUTH ONCE DAILY 30 tablet Active Fayette-3 Fatty Acids (FISH OIL) 1000 MG capsule TAKE ONE CAPSULE BY MOUTH ONCE DAILY 30 capsule Active MAG64 64 MG TBEC extended release tablet TAKE ONE TABLET BY MOUTH ONCE DAILY (WITH THE VITAMIN D) 30 tablet Active VITAMIN D3 125 MCG (5000 UT) CAPS capsule TAKE ONE CAPSULE BY MOUTH ONCE DAILY WITH FOOD 30 capsule Active omeprazole (PRILOSEC) 40 MG delayed release capsule TAKE ONE CAPSULE BY MOUTH TWICE A DAY 60 capsule Active potassium chloride (MICRO-K) 10 MEQ extended release capsule TAKE ONE CAPSULE BY MOUTH ONCE DAILY 30 capsule Active gabapentin (NEURONTIN) 300 MG capsuleIndication s:Functional neurological symptom disorder with abnormal movement Take 1 capsule by mouth at bedtime for 90 days. 30 capsule 2 025 2024 Active diazePAM (VALIUM) 5 MG tabletIndications :Functional neurological symptom disorder with abnormal movement Take 1 tablet by mouth every 8 hours as needed for Anxiety or Sleep for up to 30 days. Max Daily Amount: 15 mg 90 tablet 025 2024 Active progesterone (PROMETRIUM) 100 MG CAPS capsuleIndication s:Menopausal symptoms Take 1 capsule by mouth nightly 90 capsule 3 025 Active Handicap Placard MISCIndications:F unctional neurological symptom disorder with abnormal movement by Miscell. (Med.Supl.;Non- Drugs) route Good for 5 years. Expires 08/19/2029. 1 each 025 Active progesterone (PROMETRIUM) 100 MG CAPS capsuleIndication s:Menopausal symptoms Take 1 capsule by mouth nightly 30 capsule 1 025 2024 Discontinued(R EORDER) diazePAM (VALIUM) 5 MG tabletIndications :Functional neurological symptom disorder with abnormal movement Take 1 tablet by mouth every 8 hours as needed for Anxiety or Sleep for up to 30 days. 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 Assessment & Plan (05/13/2024 4:21 PM EDT): Chronic, at goal (stable), continue current treatment plan Generalized anxiety disorder 10/16/2022 Assessment & Plan (05/13/2024 4:21 PM EDT): Chronic, at goal (stable), continue current treatment plan Orders: propranolol (INDERAL LA) 120 MG extended release capsule; Take 1 capsule by mouth daily History of stomach ulcers 10/16/2022 History of colectomy 10/16/2022 Hypothyroidism 10/16/2022 Paresthesias 10/16/2022 Multiple falls 10/16/2022 Severe recurrent major depre ssion without psychotic features 10/23/2019 Assessment & Plan (05/13/2024 4:21 PM EDT): Chronic, at goal (stable), continue current treatment plan Recurrent vomiting 09/25/2014 Hypogammaglobulinemia 09/18/2013 Encounters Date Type Department Care Team Description 09/08/2024 2:30 PM EDT Office Visit [address] [place] [address] Dc Banks, Rash and nonspecific skin eruption (Primary Dx); Menopausal symptoms; Functional neurological symptom disorder with abnormal movement; 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; Hyperinsulinemia; Hormone imbalance; Low serum adrenocorticotrophic hormone (ACTH); Elevated morning serum cortisol level 08/18/[address] [place] [address] Dc Banks, DO Medication Refill 07/30/[address] [place] [address] Dc Banks, Medication Refill 07/21/[address] [address] Dc Banks DO Medication Refill 07/02/[address] [address] Dc Banks DO Medication Refill 06/30/[address] [place] [address] Dc Banks, Medication Refill 06/23/[address] [address] Dc Banks, Medication Refill 06/19/2024 Results Follow-Up [address] [address] Dc Banks DO 06/18/2024 Orders Only [address] [address] Dc Banks DO 06/16/2024 Orders Only [address] [address] Dc Banks, from Last 3 Months Immunizations Immunization Administration Dates Next Due Pneumococcal, PPSV23, PNEUMO VAX 23, (age 2y+), SC/IM, 0.5mL 08/04/2009 Family History Medical History Relation Name Comments Alcohol Abuse Father Isrrael Depression Father Isrrael Heart Attack Maternal Aunt Homero Gout Maternal Grandmother Radha Heart Attack Maternal Grandmother Radha Alcohol Abuse Mother Koleen Depression Mother Koleen Diabetes Mother Koleen Mental Retardation Paternal Aunt Desiree Cancer Paternal Grandmother Abena Depression Sister Jazlyn Soto Relation Name Status Comments Father Isrrael Maternal Aunt Homero Maternal Grandmother Radha Mother Koleen Paternal Aunt Desiree Paternal Grandmother Abena Sister Jazlyn Soto Social History Tobacco Use Types Packs/Day Years Used Date Smoking Tobacco: Former Cigarettes 2015 Passive Smoke Exposure: Past Smokeless Tobacco: Never Alcohol Use Standard Drinks/Week Comments Not Currently 0 (1 standard drink = 0.6 oz pur e alcohol) [facility] Utilities Answer Date Recorded In the [...] place to sleep or slept in a long term (including now)? No 10/16/2022 Housing Stability Vital Sign Answer Zen e Recorded In the last 12 months, was t here a time when you were not able to pay the mortgage or rent on time? No 03/11/2024 In the past 12 months, how m any times have you moved where you were living? 0 03/11/2024 At any time in the past 12 m [facility], were you homeless or living in a long term (including now)? No 03/11/2024 Food Insecurity Answer [...] AM EST Sexual Orientation Not on file Last Filed Vital Signs Vital Sign Reading Time Taken Comments Blood Pressure 102/70 09/08/2024 2:53 PM EDT Pulse 57 09/08/2024 2:53 PM EDT Temperature 36.4 C (97.5 F) 09/08/2024 2:53 PM EDT Respiratory Rate 16 03/11/2024 2:15 PM EST Oxygen Saturation 98% 09/08/2024 2:53 PM EDT Inhaled Oxygen Concentration - - Weight 80.3 kg (177 lb) 09/08/2024 2:53 PM EDT Height 157.5 cm (5' 2 ) 09/08/2024 2:53 PM EDT Body Mass Index 32.37 09/08/2024 2:53 PM EDT Plan of Treatment Upcoming Encounters Date Type Department Care Team (Late st Contact Info) Description 12/09/2024 2:00 PM EDT Office Visit [facility] Primary Care [address] [place] [address] Dc Banks DO [address] [place] [address] 3 month fu Health Maintenance Due Date Last Done Comments COVID-19 Vaccine (#1) 1990 Varicella vaccine (1 of 2 - 13+ 2-dose series) 1998 HIV screen 2000 Hepatitis C screen 11/09/2003 DTaP/Tdap/Td vaccine (1 - Tdap) 2004 Hepatitis B vaccine (1 of 3 - 19+ 3-dose series) 2004 Shingles vaccine (1 of 2) 2004 Pap smear 2006 Pneumococcal 0-49 years Vaccine (2 of 2 - PCV) 08/04/2010 08/04/2009 Cervical cancer screen 11/09/2015 HPV (without or with Pap) 11/09/2015 Flu vaccine (#1) 09/19/2024 Depression Monitoring 03/11/2025 03/11/2024 , 03/11/2024 Depression Screen Discontinued 03/11/2024, 03/11/2024 HPV vaccine Aged Out No longer eligi ble based on patient's age to complete this topic Hepatitis A vaccine Aged Out No longe r eligible based on patient's age to complete this topic Hib vaccine Aged Out No longer eligi ble based on patient's age to complete this topic Meningococcal (ACWY) vaccine Aged Out No longer eligible based on patient's age to complete this topic Meningococcal B vaccine Aged Out No l onger eligible based on patient's age to complete this topic Polio vaccine Aged Out No longer elig ible based on patient's age to complete this topic Procedures Procedure Name Priority Date/Time Associated Diagnosis Comments CORTISOL, FREE Routine 06/13/2024 10:43 AM EDT ACTH, PLASMA Routine 06/13/2024 10:05 AM EDT from Last 3 Months Results * Cortisol, Free (06/13/2024 10:43 AM EDT) Blood BLOOD SPECIMEN / Unknown us Dc Banks DO CHEMISTRY ORDERABLES Final Re sult * ACTH, PLASMA (06/13/2024 10:05 AM EDT) BLOOD SPECIMEN / Unknown us Dc Banks DO HEMATOLOGY ORDERABLES Final R esult from Last 3 Months Insurance [employer] Care Teams Feller Buncher Operator Relationship Specialty Start Date End Date Dc Banks DO [address] [place] [address] PCP - General Family Medicine 09/21/22
--- OUTSIDE RECORDS SUMMARY | 2024-09-11 08:33 | XMS_ITS | Encounter Summary ---
Author Organization [facility] Address [facility] [place] [address] Care Team Providers Care Dairy Manager Name Role Phone Dc Banks Primary Care Provider [phone] Kathryn Gutierrez RN Unavailable Unavaila ble Source Comments In the event this information is protected by the Federal Confidentiality of Alcohol and Drug AbusePatient Records regulations: The Federal rules restrict any use of the information to criminally investigate or prosecute any alcohol or drug abuse patient.[facility] Encounter Details Date Type Department Care Team (Late st Contact Info) Description 03/29/2023 Patient Msg Neurological [facility] [address] [id number] Neha Pedroza LISW [address] [place] [address] Counseling referrals Social History Tobacco Use Types Packs/Day Years [...] is lower risk 4 06/27/2022 Data from: https://www.neighborhoodatlas.medicine.[facility]/. 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 I l l explain 11/13/2024 10:30 AM EDT [facility] [address] [address] Carlos Kiser MD, PhD [address] [place], [place] [id number] CVID 11/20/2024 12:00 PM EDT Procedure Cardiology [address] [place] [address] VELAZQUEZ CX/SHREE LIST. 11/20/2024 12:45 PM EDT Office Visit Cardiology [address] [place] [address] Liu Rowe MD [address] [place] [address] VELAZQUEZ CX/SHREE LIST. documented as of this encounter Visit Diagnoses Not on filedocumented in this encounter Care Teams Dairy Manager Relationship Specialty Start Date End Date Dc Banks DO PCP - General Family Medicine 08/03/10 Kathryn Gutierrez, RN [address] [facility] [address] [place] [address] Specialty Solar Panel Installation Supervisor Hematology 04/03/22 documented as of this encounter
--- OUTSIDE RECORDS SUMMARY | 2024-09-11 08:33 | XMS_ITS | Encounter Summary ---
Author Organization [facility] Address [address] [place] [address] Care Team Providers Care Hat Block Bench Hand Name Role Phone Dc Banks Primary Care Provider [phone] Kathryn Gutierrez RN Unavailable Unavaila ble Source Comments In the event this information is protected by the Federal Confidentiality of Alcohol and Drug AbusePatient Records regulations: The Federal rules restrict any use of the information to criminally investigate or prosecute any alcohol or drug abuse patient.[facility] Encounter Details Date Type Department Care Team (Late st Contact Info) Description 03/07/2022 Patient Msg Neurology [address] [place] [address] Tasha Saucedo, HASHER MACHINE OPERATOR.[address] [address] Appointment Request Social History Tobacco Use Types Packs/Day Years [...] N ot on file 03/04/2022 Data from: https://www.neighborhoodatlas.medicine.[facility]/. Last address used for calculation [address] [...] [facility] Physical Therapy [address] [place] [address] Claribel Katz, PT [address] [place] [address] Functional neurological symptom disorder with mixed symptoms [F44.7] 09/17/2024 1:30 PM EDT Office Visit [facility] [address] [place] [address] Daren Munson DC [address] [place] [address] Visit 8 of - Medicaid 10/14/2024 4:00 PM EDT [facility] Neu[facility] [address] [place] [address] Sylwia Mathis PA-C [address] [place] [address] I apologize I missed our last visit. I l l explain 11/13/2024 10:30 AM EDT [facility] [address] [address] Carlos Kiser MD, PhD [address] [place], [place] [id number] CVID 11/20/2024 12:00 PM EDT Procedure Cardiology [address] [place] [address] VELAZQUEZ CX/SHREE LIST. 11/20/2024 12:45 PM EDT Office Visit Cardiology [address] [place] [address] Liu Rowe MD [address] [place] [address] VELAZQUEZ CX/SHREE LIST. documented as of this encounter Visit Diagnoses Not on filedocumented in this encounter Care Teams Hat Block Bench Hand Relationship Specialty Start Date End Date Dc Banks DO PCP - General Family Medicine 08/03/10 Kathryn Gutierrez, RN [address] [facility] [address] [place] [address] Specialty Proofer Prepress Hematology 04/03/22 documented as of this encounter
--- OUTSIDE RECORDS SUMMARY | 2024-09-11 08:33 | XMS_ITS | Encounter Summary ---
Author Organization [facility] Address [address] [place] [address] Care Team Providers Care Microbiology Lab Analyst Name Role Phone Dc Banks Primary Care Provider [phone] Kathryn Gutierrez RN Unavailable Unavaila ble Source Comments In the event this information is protected by the Federal Confidentiality of Alcohol and Drug AbusePatient Records regulations: The Federal rules restrict any use of the information to criminally investigate or prosecute any alcohol or drug abuse patient.[facility] Encounter Details Date Type Department Care Team (Late st Contact Info) Description 01/24/2022 Patient Msg Ambulatory Surgery [address] [id number] Provider, Ccf EGD Social History Tobacco Use Types Packs/Day Years [...] N ot on file 08/08/2021 Data from: https://www.neighborhoodatlas.medicine.[facility]/. Last address used for calculation [address] 08/08/2021 Comments No Sex and Gender Information [...] [facility] [address] [place] [address] Claribel Katz, PT [address] [place], [place] [id number] Functional neurological symptom disorder with mixed symptoms [F44.7] 09/17/2024 1:30 PM EDT Office Visit Integrative Medicine [address] [place] [address] Daren Munson DC [address] [place] [address] Visit 8 of 15 - Medicaid 10/14/2024 4:00 PM EDT [facility] Health Neurological [facility] [address] [place] [address] Sylwia Mathis PA-C [address] [place] [address] I apologize I missed our last visit. I l l explain 11/13/2024 10:30 AM EDT [facility] Health Allergy [address] [address] Carlos Kiser MD, PhD [address] [place] [address] CVID 11/20/2024 12:00 PM EDT Procedure Cardiology [address] [place] [address] VELAZQUEZ CX/SHREE LIST. 11/20/2024 12:45 PM EDT Office Visit Cardiology [address] [place] [address] Liu Rowe MD [address] [place] [address] VELAZQUEZ CX/SHREE LIST. documented as of this encounter Visit Diagnoses Not on filedocumented in this encounter Additional Health Concerns Infection Onset Date Last Indicated Resolved Time COVID-19 Rule-Out 01/26/2022 01/26/2022 01/26/2022 8:17 PM EST documented as of this encounter Care Teams Microbiology Lab Analyst Relationship Specialty Start Date End Date Dc Banks DO PCP - General Family Medicine 08/03/10 Kathryn Gutierrez, RN [address] [place] [address] Specialty Weaver Hand Loom Hematology 04/03/22 documented as of this encounter
--- OUTSIDE RECORDS SUMMARY | 2024-09-11 08:34 | XMS_ITS | Encounter Summary ---
Author Organization [facility] Address [address] [place] [address] Care Team Providers Care Film Reader Name Role Phone Dc Banks Primary Care Provider [phone] Kathryn Gutierrez RN Unavailable Unavaila ble Source Comments In the event this information is protected by the Federal Confidentiality of Alcohol and Drug AbusePatient Records regulations: The Federal rules restrict any use of the information to criminally investigate or prosecute any alcohol or drug abuse patient.[facility] Encounter Details Date Type Department Care Team (Late st Contact Info) Description 07/16/2024 Patient Msg Neurology [address] [place], [place] [phone] Provider, Ccf Please Confirm Your Sleep Study Appointment Scheduled For 07/23/24. Social History Tobacco Use Types Packs/Day Years Used Date Smoking Tobacco: Former Cigarettes 0.5 6 1 02/19/2009 - 12/21/2015 Smokeless Tobacco: Never Alcohol Use Standard Drinks/Week Comments Yes 0 (1 standard drink = 0.6 oz pur e alcohol) less than 1 drink per week PHQ-2 Answer Date Recorded PHQ-2 score 6 06/10/2024 Area Deprivation Index Answer Date Slava rded National Score (1-100), lower number is lower ri sk 61 06/27/2022 State Score (1-10), lower number is lower risk 4 06/27/2022 Data from: https://www.neighborhoodatlas.[facility]/. Last address used for calculation [address] [...] Description 09/16/2024 2:30 PM EDT OT/PT/Speech Visit [facility] Physical Therapy [address] [place] [address] Claribel Katz, PT [address] [place], [place] [phone] Functional neurological symptom disorder with mixed symptoms [F44.7] 09/17/2024 1:30 PM EDT Office Visit Integrative [facility] [address] [place] [address] Daren Munson DC [address] [place] [address] Visit 8 of - Medicaid 10/14/2024 4:00 PM EDT [facility] Neu[facility] [address] [place] [address] Sylwia Mathis PA-C [address] [place] [address] I apologize I missed our last visit. I l l explain 11/13/2024 10:30 AM EDT [facility] [address] [address] Carlos Kiser MD, PhD [address] [place] [address] CVID 11/20/2024 12:00 PM EDT Procedure Cardiology [address] [place] [address] VELAZQUEZ CX/SHREE LIST. 11/20/2024 12:45 PM EDT Office Visit Cardiology [address] [place] [address] Liu Rowe MD [address] [place] [address] VELAZQUEZ CX/SHREE LIST. documented as of this encounter Visit Diagnoses Not on filedocumented in this encounter Care Teams Film Reader Relationship Specialty Start Date End Date Dc Banks DO PCP - General Family Medicine 08/03/10 Kathryn Gutierrez, RN [address] [facility] [address] [place] [address] Specialty Workers Compensation Claims Adjuster Hematology 04/03/22 documented as of this encounter
--- OUTSIDE RECORDS SUMMARY | 2024-09-11 08:34 | XMS_ITS | Encounter Summary ---
Author Organization [facility] Address [address] [place] [address] Care Team Providers Care Enginehouse Brakeman Name Role Phone Dc Banks Primary Care Provider [phone] Kathryn Gutierrez RN Unavailable Unavaila ble Source Comments In the event this information is protected by the Federal Confidentiality of Alcohol and Drug AbusePatient Records regulations: The Federal rules restrict any use of the information to criminally investigate or prosecute any alcohol or drug abuse patient.[facility] Encounter Details Date Type Department Care Team (Late st Contact Info) Description 06/24/2024 Patient Msg Neurology [address] [place], [place] [phone] Provider, Ccf Appointment cancellation. Social History Tobacco Use Types Packs/Day Years [...] is lower risk 4 06/27/2022 Data from: https://www.neighborhoodatlas.[facility]/. Last address used for calculation [address] [...] [facility] Physical Therapy [address] [place], [place] [phone] Claribel Katz, PT [address] [place], [place] [phone] Functional neurological symptom disorder with mixed symptoms [F44.7] 09/17/2024 1:30 PM EDT Office Visit Integrative Medicine [address] [place] [address] Daren Munson DC [address] [place] [address] Visit 8 of - Medicaid 10/14/2024 4:00 PM EDT [facility] Neu[facility] [address] [place] [address] Sylwia Mathis PA-C [address] [place] [address] I apologize I missed our last visit. I l l explain 11/13/2024 10:30 AM EDT [facility] [address] [address] Carlos Kiser MD, PhD [address] [place] [address] CVID 11/20/2024 12:00 PM EDT Procedure Cardiology [address] [place] [address] VELAZQUEZ CX/SHREE LIST. 11/20/2024 12:45 PM EDT Office Visit Cardiology [address] [place] [address] Liu Rowe MD [address] [place] [address] VELAZQUEZ CX/SHREE LIST. documented as of this encounter Visit Diagnoses Not on filedocumented in this encounter Care Teams Enginehouse Brakeman Relationship Specialty Start Date End Date Dc Banks DO PCP - General Family Medicine 08/03/10 Kathryn Gutierrez, ARMANI [address] [facility] [address] [place] [address] Specialty Healthcare Administrator Hematology 04/03/22 documented as of this encounter
--- OUTSIDE RECORDS SUMMARY | 2024-09-11 08:34 | XMS_ITS | Encounter Summary ---
Author Organization [facility] Address [address] [place], [place] [id number] Care Team Providers Care Diet Aid Name Role Phone Darren Dc Susy SHANKS Primary Care Provider [phone] Kathryn Gutierrez RN Unavailable Unavaila ble Source Comments In the event this information is protected by the Federal Confidentiality of Alcohol and Drug AbusePatient Records regulations: The Federal rules restrict any use of the information to criminally investigate or prosecute any alcohol or drug abuse patient.[facility] Encounter Details Date Type Department Care Team (Late st Contact Info) Description 07/17/[address] [facility] [address] [place] [address] Deon Douglass DO [facility] [address] [place] [address] Appointment Request Social History Tobacco Use Types Packs/Day Years Used Date Smoking Tobacco: Former Cigarettes 0.5 6 1 02/19/2009 - 12/21/2015 Smokeless Tobacco: Never Alcohol Use Standard Drinks/Week Comments Yes 0 (1 standard drink = 0.6 oz pur e alcohol) less than 1 drink per week PHQ-2 Answer Date Recorded PHQ-2 score 6 07/15/2023 Area Deprivation Index Answer Date Slava rded National Score (1-100), lower number is lower ri sk 61 06/27/2022 State Score (1-10), lower number is lower risk 4 06/27/2022 Data from: https://www.neighborhoodatlas.medicine.[facility]/. Last address used for [...] PM EDT OT/PT/Speech Visit [facility] Physical Therapy [address] [place] [address] Claribel Katz, PT [address] [place] [address] Functional neurological symptom disorder with mixed symptoms [F44.7] 09/17/2024 1:30 PM EDT Office Visit Integrative Medicine [address] [place] [address] Daren Munson DC [address] [place] [address] Visit 8 of - Medicaid 10/14/2024 4:00 PM EDT [facility] Neurological [employer] [address] [place] [address] Sylwia Mathis PA-C [address] [place] [address] I apologize I missed our last visit. I l l explain 11/13/2024 10:30 AM EDT [facility] Allergy [address] [address] Carlos Kiser MD, PhD [address] [place] [address] CVID 11/20/2024 12:00 PM EDT Procedure Cardiology [address] [place] [address] VELAZQUEZ CX/SHREE LIST. 11/20/2024 12:45 PM EDT Office Visit Cardiology [address] [place] [address] Liu Rowe MD [address] [place] [address] VELAZQUEZ CX/SHREE LIST. documented as of this encounter Visit Diagnoses Not on filedocumented in this encounter Care Teams Diet Aid Relationship Specialty Start Date End Date Dc Banks DO PCP - General Family Medicine 08/03/10 Kathryn Gutierrez, RN [address] [facility] [address] [place] [address] Specialty Manager Skilled Hematology 04/03/22 documented as of this encounter
--- OUTSIDE RECORDS SUMMARY | 2024-09-11 08:34 | XMS_ITS | Encounter Summary ---
Author Organization [facility] Address [address] [place] [address] Care Team Providers Care Produce Sorter Name Role Phone Dc Banks Primary Care Provider Kathryn Gutierrez RN Unavailable Unavaila ble Source Comments In the event this information is protected by the Federal Confidentiality of Alcohol and Drug AbusePatient Records regulations: The Federal rules restrict any use of the information to criminally investigate or prosecute any alcohol or drug abuse patient.[facility] Encounter Details Date Type Department Care Team (Late st Contact Info) Description 10/11/2021 Patient Msg Neurology [address] [place] [id number] Chacho Fox, [address] [address] message Social History Tobacco Use Types Packs/Day Years Used Date Smoking Tobacco: Former Cigarettes 0.5 6 1 02/19/2007 - 12/20/2013 Smokeless Tobacco: Never Alcohol Use Standard Drinks/Week Comments No 0 (1 standard drink = 0.6 oz pur e alcohol) PHQ-2 Answer Date Recorded PHQ-2 score 4 09/14/2021 Area Deprivation Index Answer Date Slava rded National Score (1-100), lower number is lower ri 65 08/08/2021 State Score (1-10), lower number is lower risk N ot on file 08/08/2021 Data from: https://www.neighborhoodatlas.medicine.[facility]/. Last address used for calculation [address] 08/08/2021 Comments No Sex and Gender Information [...] suspected to have Coronavirus/COVID-19? No / Unsure 10/11/2021 11:34 AM EDT documented as of this encounter [...] [facility] [address] [place] [address] Claribel Katz, PT [address] [place] [address] Functional neurological symptom disorder with mixed symptoms [F44.7] 09/17/2024 1:30 PM EDT Office Visit Integrative Medicine [address] [place] [address] Daren Munson DC [address] [place] [address] Visit 8 of 15 - Medicaid 10/14/2024 4:00 PM EDT [facility] Neurological Pentecostalism [address] [place] [address] Sylwia Mathis PA-C [address] [place] [address] I apologize I missed our last visit. I l l explain 11/13/2024 10:30 AM EDT [facility] Allergy [address] [address] Carlos Kiser MD, PhD [address] [place] [address] CVID 11/20/2024 12:00 PM EDT Procedure Cardiology [address] [place] [address] VELAZQUEZ CX/SHREE LIST. 11/20/2024 12:45 PM EDT Office Visit Cardiology [address] [place] [address] Liu Rowe MD [address] [place] [address] VELAZQUEZ CX/SHREE LIST. documented as of this encounter Visit Diagnoses Not on filedocumented in this encounter Additional Health Concerns Infection Onset Date Last Indicated Resolved Time COVID-19 Rule-Out 01/26/2022 01/26/2022 01/26/2022 8:17 PM EST documented as of this encounter Care Teams Produce Sorter Relationship Specialty Start Date End Date Dc Banks DO PCP - General Family Medicine 08/03/10 Kathryn Gutierrez, RN [address] [place] [address] Specialty Booky Hematology 04/03/22 documented as of this encounter
--- OUTSIDE RECORDS SUMMARY | 2024-09-11 08:34 | XMS_ITS | Encounter Summary ---
Author Organization [facility] Address [address] [place] [address] Care Team Providers Care Mig Tig Welder Name Role Phone Dc Banks Primary Care Provider [phone] Kathryn Gutierrez RN Unavailable Unavaila ble Source Comments In the event this information is protected by the Federal Confidentiality of Alcohol and Drug AbusePatient Records regulations: The Federal rules restrict any use of the information to criminally investigate or prosecute any alcohol or drug abuse patient.[facility] Encounter Details Date Type Department Care Team (Late st Contact Info) Description 09/13/2022 Patient Msg Neurology [address] [place], [place] [id number] Provider, Ccf PLEASE CONFIRM SLEEP STUDY #2 Social History Tobacco Use Types Packs/Day Years [...] is lower risk 4 06/27/2022 Data from: https://www.neighborhoodatlas.[facility]/. Last address used for calculation [address] [...] Hospital Physical Therapy [address] [place] [address] Claribel Katz, PT [address] [place] [address] Functional neurological symptom disorder with mixed symptoms [F44.7] 09/17/2024 1:30 PM EDT Office Visit Integrative Medicine [address] [place] [address] Daren Munson DC [address] [place] [address] Visit 8 of - Medicaid 10/14/2024 4:00 PM EDT [facility] Neurological [facility] [address] [place] [address] Sylwia Mathis PA-C [address] [place] [address] I apologize I missed our last visit. I l l explain 11/13/2024 10:30 AM EDT [facility] Allergy [address] [address] Carlos Kiser MD, PhD [address] [place] [address] CVID 11/20/2024 12:00 PM EDT Procedure Cardiology [address] [place] [id number] VELAZQUEZ CX/SHREE LIST. 11/20/2024 12:45 PM EDT Office Visit Cardiology [address] [place] [address] Liu Rowe MD [address] [place] [address] VELAZQUEZ CX/SHREE LIST. documented as of this encounter Visit Diagnoses Not on filedocumented in this encounter Care Teams Mig Tig Welder Relationship Specialty Start Date End Date Dc Banks DO PCP - General Family Medicine 08/03/10 Kathryn Gutierrez, ARMANI [address] [facility] [address] [place] [address] Specialty Mechanical Repair Worker Hematology 04/03/22 documented as of this encounter
--- OUTSIDE RECORDS SUMMARY | 2024-09-11 08:34 | XMS_ITS | Encounter Summary ---
Author Organization [facility] Address [address] [place] [address] Care Team Providers Care Quality Tester Name Role Phone Dc Banks Primary Care Provider [phone] Kathryn Gutierrez RN Unavailable Unavaila ble Source Comments In the event this information is protected by the Federal Confidentiality of Alcohol and Drug AbusePatient Records regulations: The Federal rules restrict any use of the information to criminally investigate or prosecute any alcohol or drug abuse patient.[facility] Encounter Details Date Type Department Care Team (Late st Contact Info) Description 06/21/2023 Patient Msg Psychiatry [address] [place] [address] Veronica Costa MD Treatment plan from today's visit Social History Tobacco Use Types Packs/Day Years Used Date Smoking Tobacco: Former Cigarettes 0.5 6 1 02/19/2009 - 12/21/2015 Smokeless Tobacco: Never Alcohol Use Standard Drinks/Week Comments Yes 0 (1 standard drink = 0.6 oz pur e alcohol) less than 1 drink per week PHQ-2 Answer Date Recorded PHQ-2 score 6 06/20/2023 Area Deprivation Index Answer Date Slava rded National Score (1-100), lower number is lower ri sk 61 06/27/2022 State Score (1-10), lower number is lower risk 4 06/27/2022 Data from: https://www.neighborhoodatlas.medicine.[facility]/. Last address used for calculation [address] [...] [facility] Physical Therapy [address] [place], [place] [phone] Claribel Katz, PT [address] [place] [address] Functional neurological symptom disorder with mixed symptoms [F44.7] 09/17/2024 1:30 PM EDT Office Visit Integrative Medicine [address] [place] [address] Daren Munson DC [address] [place] [address] Visit 8 of - Medicaid 10/14/2024 4:00 PM EDT [facility] Neurological [facility] [address] [place] [address] Sylwia Mathis PA-C [address] [place] [address] I apologize I missed our last visit. I l l explain 11/13/2024 10:30 AM EDT [facility] Allergy [address] [address] Carlos Kiser MD, PhD [address] [place], [place] [phone] CVID 11/20/2024 12:00 PM EDT Procedure Cardiology [address] [place] [address] VELAZQUEZ CX/SHREE LIST. 11/20/2024 12:45 PM EDT Office Visit Cardiology [address] [place] [address] Liu Rowe MD [address] [place] [address] VELAZQUEZ CX/SHREE LIST. documented as of this encounter Visit Diagnoses Not on filedocumented in this encounter Care Teams Quality Tester Relationship Specialty Start Date End Date Dc Banks DO PCP - General Family Medicine 08/03/10 Kathryn Gutierrez, RN [address]00 [facility] [address] [place] [address] Specialty Special Education Resource Room Teacher Hematology 04/03/22 documented as of this encounter
--- OUTSIDE RECORDS SUMMARY | 2024-09-11 08:34 | XMS_ITS | Encounter Summary ---
Author Organization [facility] Address [address] [place] [address] Care Team Providers Care Engraver Signature Name Role Phone Dc Banks Primary Care Provider [phone] Kathryn Gutierrez RN Unavailable Unavaila ble Source Comments In the event this information is protected by the Federal Confidentiality of Alcohol and Drug AbusePatient Records regulations: The Federal rules restrict any use of the information to criminally investigate or prosecute any alcohol or drug abuse patient.[facility] Encounter Details Date Type Department Care Team (Late st Contact Info) Description 07/25/2022 Abstract Allergy [address] [address] [place] APRN.LEAD CASTER [address] [place] [address] Social History Tobacco Use Types Packs/Day Years [...] is lower risk 4 06/27/2022 Data from: https://www.neighborhoodatlas.medicine.[facility]/. Last address used for calculation [...] suspected to have Coronavirus/COVID-19? No / Unsure 07/14/2022 12:12 PM EDT documented as of this encounter Functional Status * Are you deaf or do you have serious difficulty hearing? Answer Date of Assessment Author No 07/16/2022 11:15 AM Mallorie Jimenez RN * Are you blind or do you have serious difficulty seeing, even when wearing glasses? Answer Date of Assessment Author No 07/16/2022 11:15 AM EDMallroie Morris RN * Do you have serious difficulty [...] Description 09/16/2024 2:30 PM EDT OT/PT/Speech Visit [facility] Physical Therapy [address] [place] [address] Claribel Katz, PT [address] [place] [address] Functional neurological symptom disorder with mixed symptoms [F44.7] 09/17/2024 1:30 PM EDT Office Visit Integrative Medicine [address] [place] [address] Daren Munson DC [address] [place] [address] Visit 8 of 15 - Medicaid 10/14/2024 4:00 PM EDT [facility] Neurological [place] [address] [place] [address] Sylwia Mathis PA-C [address] [place] [address] I apologize I missed our last visit. I l l explain 11/13/2024 10:30 AM EDT [facility] Allergy [address] [address] Carlos Kiser MD, PhD [address] [place] [address] CVID 11/20/2024 12:00 PM EDT Procedure Cardiology [address] [place] [address] VELAZQUEZ CX/SHREE LIST. 11/20/2024 12:45 PM EDT Office Visit Cardiology [address] [place] [address] Liu Rowe MD [address] [place] [address] VELAZQUEZ CX/SHREE LIST. documented as of this encounter Visit Diagnoses Not on filedocumented in this encounter Care Teams Engraver Signature Relationship Specialty Start Date End Date Dc Banks DO PCP - General Family Medicine 08/03/10 Kathryn Gutierrez, RN [address] [place] [address] Specialty Kitchen Hand Hematology 04/03/22 documented as of this encounter
--- OUTSIDE RECORDS SUMMARY | 2024-09-11 08:34 | XMS_ITS | Encounter Summary ---
Author Organization [facility] Address [address] [place] [address] Care Team Providers Care Ignition Expert Name Role Phone Dc Banks Primary Care Provider [phone] Kathryn Gutierrez RN Unavailable Unavaila ble Source Comments In the event this information is protected by the Federal Confidentiality of Alcohol and Drug AbusePatient Records regulations: The Federal rules restrict any use of the information to criminally investigate or prosecute any alcohol or drug abuse patient.[facility] Encounter Details Date Type Department Care Team (Late st Contact Info) Description 08/04/2024 Patient Msg Integrative Medicine [address] [place] [address] [place] [address] [place] [address] Appointment Request Social History Tobacco Use Types Packs/Day Years Used Date Smoking Tobacco: Former Cigarettes 0.5 6 1 02/19/2009 - 12/21/2015 Smokeless Tobacco: Never Alcohol Use Standard Drinks/Week Comments Yes 0 (1 standard drink = 0.6 oz pur e alcohol) less than 1 drink per week PHQ-2 Answer Date Recorded PHQ-2 score 4 07/31/2024 Area Deprivation Index Answer Date Slava rded National Score (1-100), lower number is lower ri sk 61 06/27/2022 State Score (1-10), lower number is lower risk 4 06/27/2022 Data from: https://www.neighborhoodatlas.[facility]edu/. Last address used for calculation [address] [...] Description 09/16/2024 2:30 PM EDT OT/PT/Speech Visit [facility] Physical Therapy [address] [place] [address] Claribel Katz, PT [address] [place], [place] [phone] Functional neurological symptom disorder with mixed symptoms [F44.7] 09/17/2024 1:30 PM EDT Office Visit Integrative Medicine [address] [place] [address] Daren Munson DC [address] [place] [address] Visit 8 of - Medicaid 10/14/2024 4:00 PM EDT [facility] Neurological [facility] [address] [place] [address] Sylwia Mathis PA-C [address] [place] [address] I apologize I missed our last visit. I l l explain 11/13/2024 10:30 AM EDT [facility] Allergy [address] [address] Carlos Kiser MD, PhD [address] [place], [place] [address] CVID 11/20/2024 12:00 PM EDT Procedure Cardiology [address] [place] [address] VELAZQUEZ CX/SHREE LIST. 11/20/2024 12:45 PM EDT Office Visit Cardiology [address] [place] [address] Liu Rowe MD [address] [place] [address] VELAZQUEZ CX/SHREE LIST. documented as of this encounter Visit Diagnoses Not on filedocumented in this encounter Care Teams Ignition Expert Relationship Specialty Start Date End Date Dc Banks DO PCP - General Family Medicine 08/03/10 Kathryn Gutierrez, RN [address] [facility] [address] [place] [address] Specialty Section Chief Hematology 04/03/22 documented as of this encounter
--- OUTSIDE RECORDS SUMMARY | 2024-09-11 08:34 | XMS_ITS | Encounter Summary ---
Author Organization [facility] Address [address] [place] [address] Care Team Providers Care Cut Off Saw Grader Name Role Phone Dc Banks Primary Care Provider [phone] Kathryn Gutierrez RN Unavailable Unavaila ble Source Comments In the event this information is protected by the Federal Confidentiality of Alcohol and Drug AbusePatient Records regulations: The Federal rules restrict any use of the information to criminally investigate or prosecute any alcohol or drug abuse patient.[facility] Reason for Visit * Reason Comments Prior Authorization [facility] Encounter Details Date Type Department Care Team (Late st Contact Info) Description 08/28/2024 Telephone Allergy [address] [place] [id number] Carlos K[place], PhD [address] [place] [address] Prior Authorization ([facility] ) Social History Tobacco Use Types Packs/Day Years Used Date Smoking Tobacco: Former Cigarettes 0.5 6 1 02/19/2009 - 12/21/2015 Smokeless Tobacco: Never Alcohol Use Standard Drinks/Week Comments Yes 0 (1 standard drink = 0.6 oz pur e alcohol) less than 1 drink per week PHQ-2 Answer Date Recorded PHQ-2 score 6 08/14/2024 Area Deprivation Index Answer Date Slava rded National Score (1-100), lower number is lower ri sk 61 06/27/2022 State Score (1-10), lower number is lower risk 4 06/27/2022 Data from: https://www.neighborhoodatlas.medicine.[facility]/. Last address used for calculation [address] [...] Mallorie Jimenez RN documented in this encounter Miscellaneous Notes * Telephone Encounter - Jeromy Weinstein - 08/28/2024 3:06 PM EDT Prior Authorization: Approved Insurance: Care Source Date: 08/24/2024 Status: Approved Medication: Ambulatory Infusion Pump Dates: 09/15/24 - 09/15/25 Reference Number: [id number] Uploaded into Scanned Docs documented in this encounter Plan of Treatment Upcoming Encounters Date Type Department Care Team (Latest Contact Info) Description 09/16/2024 2:30 PM EDT OT/PT/Speech Visit [facility] Physical Therapy [address] [place] [address] Claribel Katz, PT [address] [place] [address] Functional neurological symptom disorder with mixed symptoms [F44.7] 09/17/2024 1:30 PM EDT Office Visit Integrative Medicine [address] [place] [address] Daren Munson DC [address] [place] [address] Visit 8 Medicaid 10/14/2024 4:00 PM EDT [facility] Neurological Sikhism [address] [place] [address] Sylwia Mathis PA-C [address] [place] [address] I apologize I missed our last visit. I l l explain 11/13/2024 10:30 AM EDT [facility] Allergy [address] [address] Carlos Kiser MD, PhD [address] [place] [address] CVID 11/20/2024 12:00 PM EDT Procedure Cardiology [address] [place] [address] VELAZQUEZ CX/SHREE LIST. 11/20/2024 12:45 PM EDT Office Visit Cardiology [address] [place] [address] Liu Rowe MD [address] [place] [address] VELAZQUEZ CX/SHREE LIST. documented as of this encounter Visit Diagnoses Not on filedocumented in this encounter Care Teams Cut Off Saw Grader Relationship Specialty Start Date End Date Dc Banks DO PCP - General Family Medicine 08/03/10 Kathryn Gutierrez, RN [address] [place] [address] Specialty Sedimentationist Hematology 04/03/22 documented as of this encounter
--- OUTSIDE RECORDS SUMMARY | 2024-09-11 08:34 | XMS_ITS | Encounter Summary ---
Author Organization [facility] Address [address] [place] [address] Care Team Providers Care Hydraulic Strainer Operator Name Role Phone Dc Banks Primary Care Provider [phone] Kathryn Gutierrez RN Unavailable Unavaila ble Source Comments In the event this information is protected by the Federal Confidentiality of Alcohol and Drug AbusePatient Records regulations: The Federal rules restrict any use of the information to criminally investigate or prosecute any alcohol or drug abuse patient.[facility] Encounter Details Date Type Department Care Team (Late st Contact Info) Description 08/18/2023 Patient Msg Neurological L[facility]Day [address] [place] [phone] Chinyere Thapa, PhD [address] [phone] [facility] Group Resource Social History Tobacco Use Types Packs/Day Years Used Date Smoking Tobacco: Former Cigarettes 0.5 6 1 02/19/2009 - 12/21/2015 Smokeless Tobacco: Never Alcohol Use Standard Drinks/Week Comments Yes 0 (1 standard drink = 0.6 oz pur e alcohol) less than 1 drink per week PHQ-2 Answer Date Recorded PHQ-2 score 6 08/17/2023 Area Deprivation Index Answer Date Slava rded National Score (1-100), lower number is lower ri sk 61 06/27/2022 State Score (1-10), lower number is lower risk 4 06/27/2022 Data from: https://www.neighborhoodatlas.medicine.[facility]/. Last address used for calculation [...] Hospital Physical Therapy [address] [place], [place] [phone] Claribel Katz, PT [address] [place] [address] Functional neurological symptom disorder with mixed symptoms [F44.7] 09/17/2024 1:30 PM EDT Office Visit Integrative Medicine [address] [place] [address] Daren Munson DC [address] [place] [address] Visit 8 of - Medicaid 10/14/2024 4:00 PM EDT [facility] Neurological [place] [address] [place] [address] Sylwia Mathis PA-C [address] [place] [address] I apologize I missed our last visit. I l l explain 11/13/2024 10:30 AM EDT [facility] Allergy [address] [address] Carlos Kiser MD, PhD [address] [place], [place] [id number] CVID 11/20/2024 12:00 PM EDT Procedure Cardiology [address] [place] [address] VELAZQUEZ CX/SHREE LIST. 11/20/2024 12:45 PM EDT Office Visit Cardiology [address] [place] [address] Liu Rowe MD [address] [place] [address] VELAZQUEZ CX/SHREE LIST. documented as of this encounter Visit Diagnoses Not on filedocumented in this encounter Care Teams Hydraulic Strainer Operator Relationship Specialty Start Date End Date Dc Banks DO PCP - General Family Medicine 08/03/10 Kathryn Gutierrez, RN [address] [facility] [address] [place] [address] Specialty Electric Locomotive Crane Operator Hematology 04/03/22 documented as of this encounter
--- OUTSIDE RECORDS SUMMARY | 2024-09-11 08:34 | XMS_ITS | Encounter Summary ---
Author Organization [facility] Address [address] [place] [address] Care Team Providers Care Boom Man Name Role Phone Dc Banks Primary Care Provider [phone] Kathryn Gutierrez RN Unavailable Unavaila ble Source Comments In the event this information is protected by the Federal Confidentiality of Alcohol and Drug AbusePatient Records regulations: The Federal rules restrict any use of the information to criminally investigate or prosecute any alcohol or drug abuse patient.[facility] Encounter Details Date Type Department Care Team (Late st Contact Info) Description 11/12/2023 Patient Msg [facility] Speech Therapy [address] [phone] Maria Isabel Perez, [facility] [address] [place] [address] ACTION REQUIRED: Please complete your COGNITIVE ASSESSMENT Social History Tobacco Use Types Packs/Day Years Used Date Smoking Tobacco: Former Cigarettes 0.5 6 1 02/19/2009 - 12/21/2015 Smokeless Tobacco: Never Alcohol Use Standard Drinks/Week Comments Yes 0 (1 standard drink = 0.6 oz pur e alcohol) less than 1 drink per week PHQ-2 Answer Date Recorded PHQ-2 score 6 11/16/2023 Area Deprivation Index Answer Date Slava rded National Score (1-100), lower number is lower ri sk 61 06/27/2022 State Score (1-10), lower number is lower risk 4 06/27/2022 Data from: https://www.neighborhoodatlas.medicine.[facility].edu/. Last address used for calculation [address] [...] PM EDT OT/PT/Speech Visit [facility] Physical Therapy [address] [place] [address] Claribel Katz, PT [address] [place] [address] Functional neurological symptom disorder with mixed symptoms [F44.7] 09/17/2024 1:30 PM EDT Office Visit Integrative Medicine [address] [place] [address] Daren Munson DC [address] [place] [address] Visit 8 of - Medicaid 10/14/2024 4:00 PM EDT [facility] Neurological Mandaeism [address] [place] [address] Sylwia Mathis PA-C [address] [place] [address] I apologize I missed our last visit. I l l explain 11/13/2024 10:30 AM EDT [facility] Allergy [address] [address] Carlos Kiser MD, PhD [address] [place], [place] [id number] CVID 11/20/2024 12:00 PM EDT Procedure Cardiology [address] [place] [address] VELAZQUEZ CX/SHREE LIST. 11/20/2024 12:45 PM EDT Office Visit Cardiology [address] [place] [address] Liu Rowe MD [address] [place] [address] VELAZQUEZ CX/SHREE LIST. documented as of this encounter Visit Diagnoses Not on filedocumented in this encounter Care Teams Boom Man Relationship Specialty Start Date End Date Dc Banks DO PCP - General Family Medicine 08/03/10 Kathryn Gutierrez, ARMANI [address] [facility] [address] [place] [address] Specialty Sales Department Clerk Hematology 04/03/22 documented as of this encounter
--- OUTSIDE RECORDS SUMMARY | 2024-09-11 08:34 | XMS_ITS | Encounter Summary ---
Author Organization [facility] Address [address] [place] [address] Care Team Providers Care Cattle Dipper Name Role Phone Dc Banks Primary Care Provider [phone] Kathryn Gutierrez RN Unavailable Unavaila ble Source Comments In the event this information is protected by the Federal Confidentiality of Alcohol and Drug AbusePatient Records regulations: The Federal rules restrict any use of the information to criminally investigate or prosecute any alcohol or drug abuse patient.[facility] Encounter Details Date Type Department Care Team (Late st Contact Info) Description 07/18/2024 Patient Msg Neurology [address] [place], [place] [phone] Provider, Ccf Please Confirm Your Sleep Study Appointment Scheduled on 07/23/24. Social History Tobacco Use Types Packs/Day [...] lower risk 4 06/27/2022 Data from: https://www.neighborhoodatlas.[facility]/. Last address used for calculation [...] Description 09/16/2024 2:30 PM EDT OT/PT/Speech [facility] Physical Therapy [address] [place] [address] Claribel Katz, PT [address] [place], [place] [phone] Functional neurological symptom disorder with mixed symptoms [F44.7] 09/17/2024 1:30 PM EDT Office Visit Integrative Medicine [address] [place] [address] Daren Munson DC [address] [place] [address] Visit 8 of - Medicaid 10/14/2024 4:00 PM EDT [facility] Neurological Cheondoism [address] [place] [address] Sylwia Mathis PA-C [address] [place] [address] I apologize I missed our last visit. I l l explain 11/13/2024 10:30 AM EDT [facility] Allergy [address] [address] Carlos Kiser MD, PhD [address] [place] [address] CVID 11/20/2024 12:00 PM EDT Procedure Cardiology [address] [place] [address] VELAZQUEZ CX/SHREE LIST. 11/20/2024 12:45 PM EDT Office Visit Cardiology [address] [place] [address] Liu Rowe MD [address] [place] [address] VELAZQUEZ CX/SHREE LIST. documented as of this encounter Visit Diagnoses Not on filedocumented in this encounter Care Teams Cattle Dipper Relationship Specialty Start Date End Date Dc Banks DO PCP - General Family Medicine 08/03/10 Kathryn Gutierrez, RN [address]00 [facility] [address] [place] [address] Specialty Head Athletic Trainer/Strength Coach Hematology 04/03/22 documented as of this encounter
--- OUTSIDE RECORDS SUMMARY | 2024-09-11 08:34 | XMS_ITS | Encounter Summary ---
Author Organization [facility] Address [address] [place] [address] Care Team Providers Care Crystal Slicer Name Role Phone Dc Banks Primary Care Provider Kathryn Gutierrez RN Unavailable Unavaila ble Source Comments In the event this information is protected by the Federal Confidentiality of Alcohol and Drug AbusePatient Records regulations: The Federal rules restrict any use of the information to criminally investigate or prosecute any alcohol or drug abuse patient.[facility] Encounter Details Date Type Department Care Team (Late st Contact Info) Description 08/11/2022 Patient Msg Neurological Yazdanism [address] [id number] Provider, Ccf FMD map Social History Tobacco Use Types Packs/Day Years [...] is lower risk 4 06/27/2022 Data from: https://www.neighborhoodatlas.medicine.[facility]/. Last address used for calculation [...] 09/16/2024 2:30 PM EDT OT/PT/Speech Visit [facility] Physical Therapy [address] [place] [address] Claribel Katz, PT [address] [place], [place] [phone] Functional neurological symptom disorder with mixed symptoms [F44.7] 09/17/2024 1:30 PM EDT Office Visit Integrative Medicine [address] [place] [address] Daren Munson DC [address] [place] [address] Visit 8 of 15 - Medicaid 10/14/2024 4:00 PM EDT [facility] Neurological Yazdanism [address] [place] [address] Sylwia Mathis PA-C [address] [place] [address] I apologize I missed our last visit. I l l explain 11/13/2024 10:30 AM EDT [facility] Allergy [address] [address] Carlos Kiser MD, PhD [address] [place] [address] CVID 11/20/2024 12:00 PM EDT Procedure Cardiology [address] [place] [address] VELAZQUEZ CX/SHREE LIST. 11/20/2024 12:45 PM EDT Office Visit Cardiology [address] [place] [address] Liu Rowe MD [address] [place] [address] VELAZQUEZ CX/SHREE LIST. documented as of this encounter Visit Diagnoses Not on filedocumented in this encounter Care Teams Crystal Slicer Relationship Specialty Start Date End Date Dc Banks DO PCP - General Family Medicine 08/03/10 Kathryn Gutierrez, ARMANI [address]00 [facility] [address] [place] [address] Specialty Clinical Liaison Hematology 04/03/22 documented as of this encounter
--- OUTSIDE RECORDS SUMMARY | 2024-09-11 08:34 | XMS_ITS | Encounter Summary ---
Author Organization [facility] Address [address] [place], [place] [phone] Care Team Providers Care Stocking Inspector Name Role Phone Dc Banks Primary Care Provider [phone] Kathryn Gutierrez RN Unavailable Unavaila ble Source Comments In the event this information is protected by the Federal Confidentiality of Alcohol and Drug AbusePatient Records regulations: The Federal rules restrict any use of the information to criminally investigate or prosecute any alcohol or drug abuse patient.[facility] Encounter Details Date Type Department Care Team (Late st Contact Info) Description 07/01/2023 Get Medical Advice Allergy [address] [place] [address] Carlos Kiser MD, PhD [address] [place], [place] [phone] Double appts. Social History Tobacco Use Types Packs/Day Years Used Date Smoking Tobacco: Former Cigarettes 0.5 6 1 02/19/2009 - 12/21/2015 Smokeless Tobacco: Never Alcohol Use Standard Drinks/Week Comments Yes 0 (1 standard drink = 0.6 oz pur e alcohol) less than 1 drink per week PHQ-2 Answer Date Recorded PHQ-2 score 6 06/29/2023 Area Deprivation Index Answer Date Slava rded National Score (1-100), lower number is lower ri 61 06/27/2022 State Score (1-10), lower number is lower risk 4 06/27/2022 Data from: https://www.neighborhoodatlas.medicine.[facility].edu/. Last address used for calculation [address] [...] Description 09/16/2024 2:30 PM EDT OT/PT/Speech Visit [facility] Physical Therapy [address] [place] [address] Claribel Katz, PT [address] [place] [address] Functional neurological symptom disorder with mixed symptoms [F44.7] 09/17/2024 1:30 PM EDT Office Visit Integrative Medicine [address] [place] [address] Daren Munson DC [address] [place] [address] Visit 8 of - Medicaid 10/14/2024 4:00 PM EDT [facility] Neurological Synagogue [address] [place] [address] Sylwia Mathis PA-C [address] [place] [address] I apologize I missed our last visit. I l l explain 11/13/2024 10:30 AM EDT [facility] Allergy [address] [address] Carlos Kiser MD, PhD [address] [place] [address] CVID 11/20/2024 12:00 PM EDT Procedure Cardiology [address] [place] [address] VELAZQUEZ CX/SHREE LIST. 11/20/2024 12:45 PM EDT Office Visit Cardiology [address] [place] [address] Liu Rowe MD [address] [place] [address] VELAZQUEZ CX/SHREE LIST. documented as of this encounter Visit Diagnoses Not on filedocumented in this encounter Care Teams Stocking Inspector Relationship Specialty Start Date End Date Dc Banks DO PCP - General Family Medicine 08/03/10 Kathryn Gutierrez, ARMANI [address]00 [facility] [address] [place] [address] Specialty Crosstie Inspector Hematology 04/03/22 documented as of this encounter
--- OUTSIDE RECORDS SUMMARY | 2024-09-11 08:34 | XMS_ITS | Encounter Summary ---
Author Organization [facility] Address [address] [place] [address] Care Team Providers Care Warehouse Distribution Associate Name Role Phone Dc Banks Primary Care Provider [phone] Kathryn Gutierrez RN Unavailable Unavaila ble Source Comments In the event this information is protected by the Federal Confidentiality of Alcohol and Drug AbusePatient Records regulations: The Federal rules restrict any use of the information to criminally investigate or prosecute any alcohol or drug abuse patient.[facility] Reason for Visit * Reason Comments Appointment I spoke to patient a nd she is aware of the cancel appt with Dr. Velazquez on Nov 20 and [place] date with Dr. Rowe on Nov 20. Cancellation sent though MyChart. Encounter Details Date Type Department Care Team (Late st Contact Info) Description 09/09/2024 Telephone Cardiology [address] [place] [address] Krystyna Velazquez MD [address] [place] [address] Appointment (I spoke to patient and she is aware of the cancel appt with Dr. Velazquez on Nov 20 and [place] date with Dr. Rowe on Nov 20. Cancellation sent though MyChart.) Social History Tobacco Use Types Packs/Day Years [...] is lower risk 4 06/27/2022 Data from: https://www.neighborhoodatlas.[facility]/. Last address used for calculation [address] [...] Assessment Author No 07/16/2022 11:15 AM Mallorie Jimeenz RN documented as of this encounter Mental Status * Because of a physical, mental, or emotional condition, do you have serious difficulty concentrating, remembering, or making decisions? Answer Entry Date Author No 07/16/2022 11:15 AM EDT [place] , Mallorie N, RN documented in this encounter Plan of Treatment Upcoming Encounters Date Type Department Care Team (Latest Contact Info) Description 09/16/2024 2:30 PM EDT OT/PT/Speech Visit [facility] Physical Therapy [address] [place] [place] [address] Claribel Katz, PT [address] [place] [address] Functional neurological symptom disorder with mixed symptoms [F44.7] 09/17/2024 1:30 PM EDT Office Visit Integrative Medicine [address] [place] [address] Daren Munson DC [address] [place] [address] Visit 8 Medicaid 10/14/2024 4:00 PM EDT [facility] Neurological Faith [address] [place] [address] Sylwia Mathis PA-C [address] [place] [address] I apologize I missed our last visit. I l l explain 11/13/2024 10:30 AM EDT [facility] Allergy [address] [address] Carlos Kiser MD, PhD [address] [place] [address] CVID 11/20/2024 12:00 PM EDT Procedure Cardiology [address] [place] [address] VELAZQUEZ CX/[place] LIST. 11/20/2024 12:45 PM EDT Office Visit Cardiology [address] [place] [address] Liu Rowe MD [address] [place] [address] VELAZQUEZ CX/[place] LIST. documented as of this encounter Visit Diagnoses Not on filedocumented in this encounter Care Teams Warehouse Distribution Associate Relationship Specialty Start Date End Date Dc Banks DO PCP - General Family Medicine 08/03/10 Kathryn Gutierrez, RN [address] [place] [address] Specialty Paper Machine Back Tender Hematology 04/03/22 documented as of this encounter
--- OUTSIDE RECORDS SUMMARY | 2024-09-11 08:34 | XMS_ITS | Encounter Summary ---
Author Organization [facility] Address [address] [place], [place] [phone] Care Team Providers Care Stonemason Apprentice Name Role Phone Dc Banks Primary Care Provider [phone] Kathryn Gutierrez RN Unavailable Unavaila ble Source Comments In the event this information is protected by the Federal Confidentiality of Alcohol and Drug AbusePatient Records regulations: The Federal rules restrict any use of the information to criminally investigate or prosecute any alcohol or drug abuse patient.[facility] Encounter Details Date Type Department Care Team (Late st Contact Info) Description 08/04/2022 Get Medical Advice Allergy [address] [place] [address] Carlos Kiser MD, PhD [address] [place], [place] [phone] New IVIG Orders Social History Tobacco Use Types Packs/Day Years [...] is lower risk 4 06/27/2022 Data from: https://www.neighborhoodatlas.medicine.[facility]/. Last address used for calculation [...] 07/16/2022 11:15 AM EDMallorie Morris RN * Do you have serious [...] 2:30 PM EDT OT/PT/Speech Visit [facility] Physical Therapy [address] [place] [address] Claribel Katz, PT [address] [place] [address] Functional neurological symptom disorder with mixed symptoms [F44.7] 09/17/2024 1:30 PM EDT Office Visit Integrative Medicine [address] [place] [address] Daren Munson DC [address] [place] [address] Visit 8 of 15 - Medicaid 10/14/2024 4:00 PM EDT [facility] Neurological Sabianist [address] [place] [address] Sylwia Mathis PA-C [address] [place] [address] I apologize I missed our last visit. I l l explain 11/13/2024 10:30 AM EDT [facility] Allergy [address] [address] Carlos Kiser MD, PhD [address] [place] [address] CVID 11/20/2024 12:00 PM EDT Procedure Cardiology [address] [place] [address] VELAZQUEZ CX/SHREE LIST. 11/20/2024 12:45 PM EDT Office Visit Cardiology [address] [place] [address] Liu Rowe MD [address] [place] [address] VELAZQUEZ CX/SHREE LIST. documented as of this encounter Visit Diagnoses Not on filedocumented in this encounter Care Teams Stonemason Apprentice Relationship Specialty Start Date End Date Dc Banks DO PCP - General Family Medicine 08/03/10 Kathryn Gutierrez, RN [address] [place] [address] Specialty Manager Radio Hematology 04/03/22 documented as of this encounter
--- OUTSIDE RECORDS SUMMARY | 2024-09-11 08:34 | XMS_ITS | Encounter Summary ---
Author Organization [facility] Address [address] [place] [address] Care Team Providers Care Hadoop Developer Name Role Phone Dc Banks Primary Care Provider [phone] Kathryn Gutierrez RN Unavailable Unavaila ble Source Comments In the event this information is protected by the Federal Confidentiality of Alcohol and Drug AbusePatient Records regulations: The Federal rules restrict any use of the information to criminally investigate or prosecute any alcohol or drug abuse patient.[facility] Encounter Details Date Type Department Care Team (Late st Contact Info) Description 09/01/2024 Patient Msg Integrative Medicine [address] [place] [address] [place] [address] [place] [address] Appointment Request Social History Tobacco Use [...] is lower risk 4 06/27/2022 Data from: https://www.neighborhoodatlas.[facility].edu/. Last address used for calculation [address] [...] [facility] Physical Therapy [address] [place] [address] Claribel Katz, PT [address] [place], [place] [phone] Functional neurological symptom disorder with mixed symptoms [F44.7] 09/17/2024 1:30 PM EDT Office Visit Integrative Medicine [address] [place] [address] Daren Munson DC [address] [place] [address] Visit 8 of - Medicaid 10/14/2024 4:00 PM EDT [facility] Neurological Gnosticist [address] [place] [address] Sylwia Mathis PA-C [address] [place] [address] I apologize I missed our last visit. I l l explain 11/13/2024 10:30 AM EDT [facility] Allergy [address] [address] Carlos Kiser MD, PhD [address] [place], [place] [phone] CVID 11/20/2024 12:00 PM EDT Procedure Cardiology [address] [place] [address] VELAZQUEZ CX/SHREE LIST. 11/20/2024 12:45 PM EDT Office Visit Cardiology [address] [place] [address] Liu Rowe MD [address] [place] [address] VELAZQUEZ CX/SHREE LIST. documented as of this encounter Visit Diagnoses Not on filedocumented in this encounter Care Teams Hadoop Developer Relationship Specialty Start Date End Date Dc Banks DO PCP - General Family Medicine 08/03/10 Kathryn Gutierrez, RN 9500 [facility] [address] [place] [address] Specialty Automatic Mounter Hematology 04/03/22 documented as of this encounter
--- OUTSIDE RECORDS SUMMARY | 2024-09-11 08:34 | XMS_ITS | Encounter Summary ---
Author Organization [facility] Address [address] [place] [address] Care Team Providers Care Apprentice Architect Name Role Phone Dc Banks Susy SHANKS Primary Care Provider [phone] Kathryn Gutierrez RN Unavailable Unavaila ble Source Comments In the event this information is protected by the Federal Confidentiality of Alcohol and Drug AbusePatient Records regulations: The Federal rules restrict any use of the information to criminally investigate or prosecute any alcohol or drug abuse patient.[facility] Encounter Details Date Type Department Care Team (Late st Contact Info) Description 08/26/2023 Get Medical Advice [facility]astroenterology [facility] [address] [place] [address] Deon Douglass DO [facility] [address] [place] [address] What does this mean for me? Social History Tobacco Use Types Packs/Day Years [...] is lower risk 4 06/27/2022 Data from: https://www.neighborhoodatlas.medicine.[facility]/. Last address used for calculation [address] [...] encounter Miscellaneous Notes * Telephone Encounter - Mahsa Marcus RN - 08/27/2023 11:[address] Douglass, Patient is requesting that you review the results and advise. Thank you, Mahsa Marcus RN August 27, 2023 11:58 AM documented in this encounter Plan of Treatment Upcoming Encounters Date Type Department Care Team (Latest Contact Info) Description 09/16/2024 2:30 PM EDT OT/PT/Speech Visit [facility] Physical Therapy [address] [place] [address] Claribel Katz, PT [address] [place] [address] Functional neurological symptom disorder with mixed symptoms [F44.7] 09/17/2024 1:30 PM EDT Office Visit Integrative Medicine [address] [place] [address] Daren Munson DC [address] [place] [address] Visit 8 Medicaid 10/14/2024 4:00 PM EDT [facility] Neurological Alevism [address] [place] [address] Sylwia Mathis PA-C [address] [place] [address] I apologize I missed our last visit. I l l explain 11/13/2024 10:30 AM EDT [facility] Allergy [address] [address] Carlos Kiser MD, PhD [address] [place] [address] CVID 11/20/2024 12:00 PM EDT Procedure Cardiology [address] [place] [address] VELAZQUEZ CX/SHREE LIST. 11/20/2024 12:45 PM EDT Office Visit Cardiology [address] [place] [address] Liu Rowe MD [address] [place] [address] WASSIF CX/SHREE LIST. documented as of this encounter Visit Diagnoses Not on filedocumented in this encounter Care Teams Apprentice Architect Relationship Specialty Start Date End Date Dc Banks DO PCP - General Family Medicine 08/03/10 Kathryn Gutierrez, RN [address] [place] [address] Specialty Machine Package Sealer Hematology 04/03/22 documented as of this encounter
--- OUTSIDE RECORDS SUMMARY | 2024-09-11 08:34 | XMS_ITS | Encounter Summary ---
Author Organization [facility] Address [address] [place] [address] Care Team Providers Care Loft Worker Pile Driving Name Role Phone Dc Banks Primary Care Provider [phone] Kathryn Gutierrez RN Unavailable Unavaila ble Source Comments In the event this information is protected by the Federal Confidentiality of Alcohol and Drug AbusePatient Records regulations: The Federal rules restrict any use of the information to criminally investigate or prosecute any alcohol or drug abuse patient.[facility] Encounter Details Date Type Department Care Team (Late st Contact Info) Description 09/19/2022 Patient Msg Neurology [address] [place], [place] [phone] Provider, Ccf Appointment Rescdeuled Social History Tobacco Use Types Packs/Day Years [...] lower risk 4 06/27/2022 Data from: https://www.neighborhoodatlas.[facility]/. Last address used for calculation [...] Description 09/16/2024 2:30 PM EDT OT/PT/Speech Visit [facility] Physical Therapy [address] [place] [address] Claribel Katz, PT [address] [place] [address] Functional neurological symptom disorder with mixed symptoms [F44.7] 09/17/2024 1:30 PM EDT Office Visit Integrative Medicine [address] [place] [address] Daren Munson DC [address]00 [place] [address] Visit 8 of - Medicaid 10/14/2024 4:00 PM EDT [facility] [address] [place] [address] Sylwia Mathis PA-C 9500 [place] [address] I apologize I missed our last visit. I l l explain 11/13/2024 10:30 AM EDT [facility] [address] [address] Carlos Kiser MD, PhD 9500 [place] [address] CVID 11/20/2024 12:00 PM EDT Procedure Cardiology [address] [place], [place] [phone] PER DR VELAZQUEZ CX/SHREE LIST. 11/20/2024 12:45 PM EDT Office Visit Cardiology [address] [place] [address] Liu Rowe MD [address] [place] [address] VELAZQUEZ CX/SHREE LIST. documented as of this encounter Visit Diagnoses Not on filedocumented in this encounter Care Teams Loft Worker Pile Driving Relationship Specialty Start Date End Date Dc Banks DO PCP - General Family Medicine 08/03/10 Kathryn Gutierrez, ARMANI [address]00 [facility] [address] [place] [address] Specialty Front Desk Worker Hematology 04/03/22 documented as of this encounter
--- OUTSIDE RECORDS SUMMARY | 2024-09-11 08:34 | XMS_ITS | Encounter Summary ---
Author Organization [facility] Address [address] [place] [address] Care Team Providers Care Rn Midwife Name Role Phone Dc Banks Primary Care Provider [phone] Kathryn Gutierrez RN Unavailable Unavaila ble Source Comments In the event this information is protected by the Federal Confidentiality of Alcohol and Drug AbusePatient Records regulations: The Federal rules restrict any use of the information to criminally investigate or prosecute any alcohol or drug abuse patient.[facility] Encounter Details Date Type Department Care Team (Late st Contact Info) Description 08/28/2023 Patient Msg General Surgery [facility] [address] [place] [address] [place] [address] Appointment Request Social History Tobacco Use Types [...] is lower risk 4 06/27/2022 Data from: https://www.neighborhoodatlas.medicine.[facility]/. Last address used for [...] Description 09/16/2024 2:30 PM EDT OT/PT/Speech Visit [facility] Physical Therapy [address] [place] [address] Claribel Katz, PT [address] [place] [address] Functional neurological symptom disorder with mixed symptoms [F44.7] 09/17/2024 1:30 PM EDT Office Visit Integrative Medicine [address] [place] [address] Daren Munson DC [address]00 [place] [address] Visit 8 of - Medicaid 10/14/2024 4:00 PM EDT [facility] Neurological [facility] [address] [place] [address] Sylwia Mathis PA-C 9500 [place] [address] I apologize I missed our last visit. I l l explain 11/13/2024 10:30 AM EDT [facility] [address] [address] Carlos Kiser MD, PhD [address] [place] [address] CVID 11/20/2024 12:00 PM EDT Procedure Cardiology 9[address] [place] [address] VELAZQUEZ CX/SHREE LIST. 11/20/2024 12:45 PM EDT Office Visit Cardiology [address] [place] [address] Liu Rowe MD [address] [place] [address] VELAZQUEZ CX/SHREE LIST. documented as of this encounter Visit Diagnoses Not on filedocumented in this encounter Care Teams Rn Midwife Relationship Specialty Start Date End Date Dc Banks DO PCP - General Family Medicine 08/03/10 Kathryn Gutierrez, RN [address] [facility] [address] [place] [address] Specialty Security Coordinator Hematology 04/03/22 documented as of this encounter
--- OUTSIDE RECORDS SUMMARY | 2024-09-11 08:34 | XMS_ITS | Encounter Summary ---
Author Organization [facility] Address [address] [place] [address] Care Team Providers Care Consultant Luxury And Auto. Vice President [employer] (Ex ) Name Role Phone Dc Banks Primary Care Provider [phone] Kathryn Gutierrez RN Unavailable Unavaila ble Source Comments In the event this information is protected by the Federal Confidentiality of Alcohol and Drug AbusePatient Records regulations: The Federal rules restrict any use of the information to criminally investigate or prosecute any alcohol or drug abuse patient.[facility] Reason for Visit * Reason Comments PSG Check In Encounter Details Date Type Department Care Team (Late st Contact Info) Description 07/22/2024 Abstract Neurology [address] [place] [id number] Main, Psg Neur [address] [place] [phone] PSG Check In Social History Tobacco Use Types Packs/Day Years [...] is lower risk 4 06/27/2022 Data from: https://www.neighborhoodatlas.medicine.[facility]/. Last address used for calculation [...] PM EDT OT/PT/Speech Visit [facility] Physical Therapy [address] [place] [address] Claribel Katz, PT [address] [place], [place] [phone] Functional neurological symptom disorder with mixed symptoms [F44.7] 09/17/2024 1:30 PM EDT Office Visit Integrative Medicine [address] [place] [address] Daren Munson DC [address]00 [place] [address] Visit 8 of - Medicaid 10/14/2024 4:00 PM EDT [facility] [address] [place] [address] Sylwia Mathis PA-C [address]00 [place] [address] I apologize I missed our last visit. I l l explain 11/13/2024 10:30 AM EDT [facility] [address] [address] Carlos Kiser MD, PhD [address] [place], [place] [phone] CVID 11/20/2024 12:00 PM EDT Procedure Cardiology [address] [place] [address] VELAZQUEZ CX/SHREE LIST. 11/20/2024 12:45 PM EDT Office Visit Cardiology [address] [place] [address] Liu Rowe MD [address] [place] [address] VELAZQUEZ CX/SHREE LIST. documented as of this encounter Visit Diagnoses Not on filedocumented in this encounter Care Teams Consultant [employer]ury And Auto. Vice President [employer] (Ex ) Relationship Specialty Start Date End Date Dc Banks DO PCP - General Family Medicine 08/03/10 Kathryn Gutierrez, RN 9500 [facility] [address] [place] [address] Specialty Scholarship Counselor Hematology 04/03/22 documented as of this encounter
--- OUTSIDE RECORDS SUMMARY | 2024-09-11 08:34 | XMS_ITS | Encounter Summary ---
Author Organization [facility] Address [address] [place], [place] [id number] Care Team Providers Care Public Policy Manager Name Role Phone Dc Banks Primary Care Provider [phone] Kathryn Gutierrez RN Unavailable Unavaila ble Source Comments In the event this information is protected by the Federal Confidentiality of Alcohol and Drug AbusePatient Records regulations: The Federal rules restrict any use of the information to criminally investigate or prosecute any alcohol or drug abuse patient.[facility] Encounter Details Date Type Department Care Team (Late st Contact Info) Description 07/21/2022 Get Medical Advice Allergy [address] [place] [address] Carlos Kiser MD, PhD [address] [place], [place] [phone] Response to previous message Social History Tobacco Use Types Packs/Day [...] is lower risk 4 06/27/2022 Data from: https://www.neighborhoodatlas.medicine.[facility]/. Last address used for calculation [address] [...] of Assessment Author No 07/16/2022 11:15 AM EDT Mallorie Park RN * Do you have serious difficulty walking or climbing stairs? Answer Date of Assessment Author No 07/16/2022 11:15 AM Mallorie Jimenez RN * Do you have difficulty dressing or bathing? Answer Date of Assessment Author No 07/16/2022 11:15 AM EDT Mallorie Park RN * Because of a physical, mental, or emotional condition, do you have difficulty doing errands alone such as visiting a doctor's office or shopping? Answer Date of Assessment Author No 07/16/2022 11:15 AM MARYT Mallorie Park RN documented as of this encounter Mental [...] Hospital Physical Therapy [address] [place] [address] KatzClaribel kenny, PT [address] [place] [address] Functional neurological symptom disorder with mixed symptoms [F44.7] 09/17/2024 1:30 PM EDT Office Visit Integrative Medicine [address] [place] [address] Daren Munson DC [address] [place] [address] Visit 8 of 15 - Medicaid 10/14/2024 4:00 PM EDT [facility] Neurological [facility] [address] [place] [address] Sylwia Mathis PA-C [address] [place] [address] I apologize I missed our last visit. I l l explain 11/13/2024 10:30 AM EDT [facility] Allergy [address] [address] Carlos Kiser MD, PhD [address] [place] [address] CVID 11/20/2024 12:00 PM EDT Procedure Cardiology [address] [place] [address] VELAZQUEZ CX/SHREE LIST. 11/20/2024 12:45 PM EDT Office Visit Cardiology [address] [place] [address] Liu Rowe MD [address] [place] [address] VELAZQUEZ CX/SHREE LIST. documented as of this encounter Visit Diagnoses Not on filedocumented in this encounter Care Teams Public Policy Manager Relationship Specialty Start Date End Date Dc Banks DO PCP - General Family Medicine 08/03/10 Kathryn Gutierrez, RN [address] [place] [address] Specialty Counseling Department Chair Hematology 04/03/22 documented as of this encounter
--- OUTSIDE RECORDS SUMMARY | 2024-09-11 08:34 | XMS_ITS | Encounter Summary ---
Author Organization [facility] Address [address] [place] [address] Care Team Providers Care Front Office Help Name Role Phone Dc Banks Primary Care Provider [phone] Kathryn Gutierrez RN Unavailable Unavaila ble Source Comments In the event this information is protected by the Federal Confidentiality of Alcohol and Drug AbusePatient Records regulations: The Federal rules restrict any use of the information to criminally investigate or prosecute any alcohol or drug abuse patient.[facility] Encounter Details Date Type Department Care Team (Late st Contact Info) Description 09/19/2022 Patient Msg Neurology [address] [place], [place] [phone] Provider, Ccf Appointment Rescheduled Social History Tobacco Use Types Packs/Day Years [...] is lower risk 4 06/27/2022 Data from: https://www.neighborhoodatlas.[facility]/. Last address used for calculation [address] [...] Description 09/16/2024 2:30 PM EDT OT/PT/Speech Visit [facility] Physical Therapy [address] [place] [address] Claribel Katz, PT [address] [place] [address] Functional neurological symptom disorder with mixed symptoms [F44.7] 09/17/2024 1:30 PM EDT Office Visit Integrative Medicine [address] [place] [address] Daren Munson DC [address] [place] [address] Visit 8 of - Medicaid 10/14/2024 4:00 PM EDT [facility] [address] [place] [address] Sylwia Mathis PA-C [address] [place] [address] I apologize I missed our last visit. I l l explain 11/13/2024 10:30 AM EDT [facility] [address] [address] Carlos Kiser MD, PhD [address] [place] [address] CVID 11/20/2024 12:00 PM EDT Procedure Cardiology [address] [place], [place] [phone] PER DR VELAZQUEZ CX/SHREE LIST. 11/20/2024 12:45 PM EDT Office Visit Cardiology [address] [place] [address] Liu Rowe MD [address] [place] [address] VELAZQUEZ CX/SHREE LIST. documented as of this encounter Visit Diagnoses Not on filedocumented in this encounter Care Teams Front Office Help Relationship Specialty Start Date End Date Dc Banks DO PCP - General Family Medicine 08/03/10 Kathryn Gutierrez, ARMANI [address] [facility] [address] [place] [address] Specialty Vinyl Flooring Installer Hematology 04/03/22 documented as of this encounter
--- OUTSIDE RECORDS SUMMARY | 2024-09-11 08:34 | XMS_ITS | Encounter Summary ---
Author Organization [facility] Address [address] [place] [address] Care Team Providers Care Licensed Plumber Name Role Phone Dc Banks Primary Care Provider [phone] Kathryn Gutierrez RN Unavailable Unavaila ble Source Comments In the event this information is protected by the Federal Confidentiality of Alcohol and Drug AbusePatient Records regulations: The Federal rules restrict any use of the information to criminally investigate or prosecute any alcohol or drug abuse patient.[facility] Encounter Details Date Type Department Care Team (Late st Contact Info) Description 08/31/2024 Patient Msg Integrative Medicine [address] [place] [address] [place] [address] [place] [address] Appointment Request Social History Tobacco Use [...] is lower risk 4 06/27/2022 Data from: https://www.neighborhoodatlas.[facility].edu/. Last address used for calculation [address] [facility] [address] [place] [place] [address] Claribel Katz, PT [address] [place], [place] [phone] Functional neurological symptom disorder with mixed symptoms [F44.7] 09/17/2024 1:30 PM EDT Office Visit Integrative Medicine [address] [place] [address] Daren Munson DC [address] [place] [address] Visit 8 of - Medicaid 10/14/2024 4:00 PM EDT [facility] Spirit[facility] [address] [place] [address] Sylwia Mathis PA-C [address] [place] [address] I apologize I missed our last visit. I l l explain 11/13/2024 10:30 AM EDT [facility] [address] [address] Carlos Kiser MD, PhD [address] [place], [place] [phone] CVID 11/20/2024 12:00 PM EDT Procedure Cardiology [address] [place] [address] VELAZQUEZ CX/SHREE LIST. 11/20/2024 12:45 PM EDT Office Visit Cardiology [address] [place] [address] Liu Rowe MD [address] [place] [address] VELAZQUEZ CX/SHREE LIST. documented as of this encounter Visit Diagnoses Not on filedocumented in this encounter Care Teams Licensed Plumber Relationship Specialty Start Date End Date Dc Banks DO PCP - General Family Medicine 08/03/10 Kathryn Gutierrez, RN 9500 [facility] [address] [place] [address] Specialty Worship Pastor Hematology 04/03/22 documented as of this encounter
--- OUTSIDE RECORDS SUMMARY | 2024-09-11 08:34 | XMS_ITS | Encounter Summary ---
Author Organization [facility] Address [address] [place] [address] Care Team Providers Care Rug Inspector Name Role Phone Dc Banks Primary Care Provider [phone] Kathryn Gutierrez RN Unavailable Unavaila ble Source Comments In the event this information is protected by the Federal Confidentiality of Alcohol and Drug AbusePatient Records regulations: The Federal rules restrict any use of the information to criminally investigate or prosecute any alcohol or drug abuse patient.[facility] Encounter Details Date Type Department Care Team (Late st Contact Info) Description 10/23/2023 Patient Msg [facility] Speech Therapy [address] [phone] Maria Isabel Perez, [facility] SUPERVISOR [address] [place] [address] Appointment Request Social History Tobacco Use Types Packs/Day Years Used Date Smoking Tobacco: Former Cigarettes 0.5 6 1 02/19/2009 - 12/21/2015 Smokeless Tobacco: Never Alcohol Use Standard Drinks/Week Comments Yes 0 (1 standard drink = 0.6 oz pur e alcohol) less than 1 drink per week PHQ-2 Answer Date Recorded PHQ-2 score 6 10/24/2023 Area Deprivation Index Answer Date Slava rded National Score (1-100), lower number is lower ri sk 61 06/27/2022 State Score (1-10), lower number is lower risk 4 06/27/2022 Data from: https://www.neighborhoodatlas.medicine.[facility]/. Last address used for calculation [...] 2:30 PM EDT OT/PT/Speech Visit [facility] Physical Therapy [address] [place] [address] Claribel Katz, PT [address] [place], [place] [phone] Functional neurological symptom disorder with mixed symptoms [F44.7] 09/17/2024 1:30 PM EDT Office Visit Integrative Medicine [address] [place] [address] Daren Munson DC [address]00 [place] [address] Visit 8 of 15 - Medicaid 10/14/2024 4:00 PM EDT [facility] [address] [place] [address] Sylwia Mathis PA-C [address] [place] [address] I apologize I missed our last visit. I l l explain 11/13/2024 10:30 AM EDT [facility] [address] [address] Carlos Kiser MD, PhD [address] [place], [place] [address] CVID 11/20/2024 12:00 PM EDT Procedure Cardiology [address] [place] [address] VELAZQUEZ CX/SHREE LIST. 11/20/2024 12:45 PM EDT Office Visit Cardiology [address] [place] [address] Liu Rowe MD [address] [place] [address] VELAZQUEZ CX/SHREE LIST. documented as of this encounter Visit Diagnoses Not on filedocumented in this encounter Care Teams Rug Inspector Relationship Specialty Start Date End Date Dc Banks DO PCP - General Family Medicine 08/03/10 Kathryn Gutierrez, RN 9500 [facility] [address] [place] [address] Specialty Product Promoter Retail Pet Hematology 04/03/22 documented as of this encounter
--- OUTSIDE RECORDS SUMMARY | 2024-09-11 08:34 | XMS_ITS | Encounter Summary ---
Author Organization [facility] Address [address] [place] [address] Care Team Providers Care Carrier Loader Name Role Phone Dc Banks Primary Care Provider [phone] Kathryn Gutierrez RN Unavailable Unavaila ble Source Comments In the event this information is protected by the Federal Confidentiality of Alcohol and Drug AbusePatient Records regulations: The Federal rules restrict any use of the information to criminally investigate or prosecute any alcohol or drug abuse patient.[facility] Encounter Details Date Type Department Care Team (Late st Contact Info) Description 07/28/2022 Patient Msg Allergy [address] [phone] Provider, Ccf Requested Documents Social History Tobacco Use Types Packs/Day Years [...] 4 06/27/2022 Data from: https://www.neighborhoodatlas.medicine.[facility]/. Last address used for calculation [...] 2:30 PM EDT OT[facility]PT[facility] [address] [place] [address] Claribel Katz, PT [address] [place], [place] [phone] Functional neurological symptom disorder with mixed symptoms [F44.7] 09/17/2024 1:30 PM EDT Office Visit Integrative Medicine [address] [place] [address] Daren Munson DC [address] [place] [address] Visit 8 of 15 - Medicaid 10/14/2024 4:00 PM EDT [facility] [address] [place] [address] Sylwia Mathis PA-C [address] [place] [address] I apologize I missed our last visit. I l l explain 11/13/2024 10:30 AM EDT [facility] [address] [address] Carlos Kiser MD, PhD [address] [place] [address] CVID 11/20/2024 12:00 PM EDT Procedure Cardiology [address] [place] [address] VELAZQUEZ CX/SHREE LIST. 11/20/2024 12:45 PM EDT Office Visit Cardiology [address] [place] [address] Liu Rowe MD [address] [place] [address] VELAZQUEZ CX/SHREE LIST. documented as of this encounter Visit Diagnoses Not on filedocumented in this encounter Care Teams Carrier Loader Relationship Specialty Start Date End Date Dc Banks DO PCP - General Family Medicine 08/03/10 Kathryn Gutierrez, ARMANI [address]00 [facility] [address] [place] [address] Specialty Sanipractic Physician Hematology 04/03/22 documented as of this encounter
--- OUTSIDE RECORDS SUMMARY | 2024-09-11 08:34 | XMS_ITS | Encounter Summary ---
Author Organization [facility] Address [address] [place] [address] Care Team Providers Care Flatware Maker Name Role Phone Dc Banks Primary Care [...] Care Team (Late st Contact Info) Description 08/14/2022 Patient Msg [facility] [address] [place] [address] Provider, Ccf CAPSULE SCHEDULING LINE Social History Tobacco Use Types Packs/Day Years [...] is lower risk 4 06/27/2022 Data from: https://www.neighborhoodatlas.medicine.[employer].edu/. 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 I l l explain 11/13/2024 10:30 AM EDT [facility] [address] [address] Carlos Kiser MD, PhD [address] [place] [address] CVID 11/20/2024 12:00 PM EDT Procedure Cardiology [address] [place] [phone] VELAZQUEZ CX/SHREE LIST. 11/20/2024 12:45 PM EDT Office Visit Cardiology [address] [place] [address] Liu Rowe MD [address] [place] [address] VELAZQUEZ CX/SHREE LIST. documented as of this encounter Visit Diagnoses Not on filedocumented in this encounter Care Teams Flatware Maker Relationship Specialty Start Date End Date Dc Banks DO PCP - General Family Medicine 08/03/10 Kathryn Gutierrez, ARMANI 9500 [facility] [address] [place] [address] Specialty Assistant Produce Manager Hematology 04/03/22 documented as of this encounter
--- OUTSIDE RECORDS SUMMARY | 2024-09-11 08:34 | XMS_ITS | Encounter Summary ---
Author Organization [facility] Address [address] [place] [address] Care Team Providers Care Rubbish Collection Supervisor Name Role Phone Dc Banks Primary Care Provider [phone] Kathryn Gutierrez RN Unavailable Unavaila ble Source Comments In the event this information is protected by the Federal Confidentiality of Alcohol and Drug AbusePatient Records regulations: The Federal rules restrict any use of the information to criminally investigate or prosecute any alcohol or drug abuse patient.[facility] Encounter Details Date Type Department Care Team (Late st Contact Info) Description 09/11/2022 Patient Msg Neurology [address] [place], [place] [id number] Provider, Ccf PLEASE CONFIRM SLEEP STUDY #1 Social History Tobacco Use Types Packs/Day Years [...] is lower risk 4 06/27/2022 Data from: https://www.neighborhoodatlas.[facility]/. 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 I l l explain 11/13/2024 10:30 AM EDT [facility] [address] [address] Carlos Kiser MD, PhD [address] [place] [address] CVID 11/20/2024 12:00 PM EDT Procedure Cardiology [address] [place] [phone] VELAZQUEZ CX/SHREE LIST. 11/20/2024 12:45 PM EDT Office Visit Cardiology 9[address] [place] [address] Liu Rowe MD [address]00 [place] [address] VELAZQUEZ CX/SHREE LIST. documented as of this encounter Visit Diagnoses Not on filedocumented in this encounter Care Teams Rubbish Collection Supervisor Relationship Specialty Start Date End Date Dc Banks DO PCP - General Family Medicine 08/03/10 Kathryn Gutierrez, ARMANI 9500 [facility] [place] [place] [address] Specialty Endodontic Assistant Hematology 04/03/22 documented as of this encounter
--- OUTSIDE RECORDS SUMMARY | 2024-09-11 08:34 | XMS_ITS | Encounter Summary ---
Author Organization [facility] Address [address] [place] [address] Care Team Providers Care Uniform Force Captain Name Role Phone Dc Banks Primary Care Provider [phone] Kathryn Gutierrez RN Unavailable Unavaila ble Source Comments In the event this information is protected by the Federal Confidentiality of Alcohol and Drug AbusePatient Records regulations: The Federal rules restrict any use of the information to criminally investigate or prosecute any alcohol or drug abuse patient.[facility] Encounter Details Date Type Department Care Team (Late st Contact Info) Description 07/25/2022 Patient Ms Respiratory [place] [address] [place] [address] Provider, Ccf Urgent -Video Visit scheduled for today 07/25/22 Social History Tobacco Use Types Packs/Day Years [...] is lower risk 4 06/27/2022 Data from: https://www.neighborhoodatlas.[facility]/. 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 I l l explain 11/13/2024 10:30 AM EDT [facility] [address] [address] Carlos Kiser MD, PhD [address] [place] [address] CVID 11/20/2024 12:00 PM EDT Procedure Cardiology [address] [place] [address] VELAZQUEZ CX/SHREE LIST. 11/20/2024 12:45 PM EDT Office Visit Cardiology [address] [place] [address] Liu Rowe MD [address] [place] [address] VELAZQUEZ CX/SHREE LIST. documented as of this encounter Visit Diagnoses Not on filedocumented in this encounter Care Teams Uniform Force Captain Relationship Specialty Start Date End Date Dc Banks DO PCP - General Family Medicine 08/03/10 Kathryn Gutierrez, ARMANI 9500 [facility] [address] [place] [address] Specialty Equipment Monitor Phototypesetting Hematology 04/03/22 documented as of this encounter
--- OUTSIDE RECORDS SUMMARY | 2024-09-11 08:34 | XMS_ITS | Encounter Summary ---
Author Organization [facility] Address [address] [place] [address] Care Team Providers Care Contract Negotiator Name Role Phone Dc Banks Primary Care Provider [phone] Kathryn Gutierrez RN Unavailable Unavaila ble Source Comments In the event this information is protected by the Federal Confidentiality of Alcohol and Drug AbusePatient Records regulations: The Federal rules restrict any use of the information to criminally investigate or prosecute any alcohol or drug abuse patient.[facility] Encounter Details Date Type Department Care Team (Late st Contact Info) Description 07/13/2023 Patient Msg Neurology [address] [place], [place] [phone] Provider, Ccf New Provider Social History Tobacco Use Types Packs/Day Years [...] is lower risk 4 06/27/2022 Data from: https://www.neighborhoodatlas.[facility]/. 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 I l l explain 11/13/2024 10:30 AM EDT [facility] [address] [address] Carlos Kiser MD, PhD [address] [place] [address] CVID 11/20/2024 12:00 PM EDT Procedure Cardiology [address] [place] [address] VELAZQUEZ CX/SHREE LIST. 11/20/2024 12:45 PM EDT Office Visit Cardiology [address] [place] [address] Liu Rowe MD [address] [place] [address] VELAZQUEZ CX/SHREE LIST. documented as of this encounter Visit Diagnoses Not on filedocumented in this encounter Care Teams Contract Negotiator Relationship Specialty Start Date End Date Dc Banks DO PCP - General Family Medicine 08/03/10 Kathryn Gutierrez, ARMANI 9500 [facility] [address] [place] [address] Specialty Operations And Maintenance Supervisor Hematology 04/03/22 documented as of this encounter
--- OUTSIDE RECORDS SUMMARY | 2024-09-11 08:35 | XMS_ITS | Encounter Summary ---
Author Organization [facility] Address [address] [place] [address] Care Team Providers Care Psychic Reader Name Role Phone Dc Banks Primary Care Provider [phone] Kathryn Gutierrez RN Unavailable Unavaila ble Source Comments In the event this information is protected by the Federal Confidentiality of Alcohol and Drug AbusePatient Records regulations: The Federal rules restrict any use of the information to criminally investigate or prosecute any alcohol or drug abuse patient.[facility] Encounter Details Date Type Department Care Team (Late st Contact Info) Description 03/02/2015 Patient Msg Medical Records [address] [place] [address] Provider, Ccf [facility] Procedure Social [...] hearing? Answer Date of Assessment Author No 09/29/2014 3:04 PM EDT Alex Renae, [employer]LE [employer]KER * Are you blind or do you have serious difficulty seeing, even when wearing glasses? Answer Date of Assessment Author No 09/29/2014 3:04 PM EDT Alex Renae, [employer] MAKER * Do you have serious difficulty walking or climbing stairs? Answer Date of Assessment Author No 09/29/2014 3:04 PM EDT Alex Renae, [employer] MAKER * Do you have difficulty dressing or bathing? Answer Date of Assessment Author No 09/29/2014 3:04 PM EDT Alex Renae, [employer] MAKER * Because of a physical, mental, or emotional condition, do you have difficulty doing errands alone such as visiting a doctor's office or shopping? Answer Date of Assessment Author Yes 09/29/2014 3:04 PM EDT Alex Renae, [employer] MAKER documented as of this encounter Mental Status * Because of a physical, mental, or emotional condition, do you have serious difficulty concentrating, remembering, or making decisions? 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 I l l explain 11/13/2024 10:30 AM EDT [facility] [address] [address] Carlos Kiser MD, PhD [address] [place], [place] [phone] CVID 11/20/2024 12:00 PM EDT Procedure Cardiology [address] [place] [address] VELAZQUEZ CX/SHREE LIST. 11/20/2024 12:45 PM EDT Office Visit Cardiology [address] [place], [place] [phone] Liu Rowe MD [address] [place], [place] [phone] PER DR VELAZQUEZ CX/SHREE LIST. documented as of this encounter Visit Diagnoses Not on filedocumented in this encounter Additional Health Concerns Infection Onset Date Last Indicated Resolved Time COVID-19 Rule-Out 01/26/2022 01/26/2022 01/26/2022 8:17 PM EST documented as of this encounter Care Teams Psychic Reader Relationship Specialty Start Date End Date Dc Banks DO PCP - General Family Medicine 08/03/10 Kathryn Gutierrez, ARMANI [address] [facility] [address] [place] [address] Specialty Equal Opportunity Director Hematology 04/03/22 documented as of this encounter
--- OUTSIDE RECORDS SUMMARY | 2024-09-11 08:35 | XMS_ITS | Encounter Summary ---
Author Organization [facility] Address [address] [place] [address] Care Team Providers Care Tetryl Nitrator Operator Name Role Phone Dc Banks Primary Care Provider [phone] Kathryn Gutierrez RN Unavailable Unavaila ble Source Comments In the event this information is protected by the Federal Confidentiality of Alcohol and Drug AbusePatient Records regulations: The Federal rules restrict any use of the information to criminally investigate or prosecute any alcohol or drug abuse patient.[facility] Encounter Details Date Type Department Care Team (Late st Contact Info) Description 10/09/2021 [place] [address] Provider, Ccf MRI Screening Questionnaire Completion Required Social History Tobacco Use Types Packs/Day Years [...] N ot on file 08/08/2021 Data from: https://www.neighborhoodatlas.medicine.[facility].edu/. 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 I l l explain 11/13/2024 10:30 AM EDT [facility] Allergy [address] [address] Carlos Kiser MD, PhD [address] [place], [place] [phone] CVID 11/20/2024 12:00 PM EDT Procedure Cardiology [address] [place] [phone] VELAZQUEZ CX/SHREE LIST. 11/20/2024 12:45 PM EDT Office Visit Cardiology 9[address] [place] [address] Liu Rowe MD [address] [place] [address] VELAZQUEZ CX/SHREE LIST. documented as of this encounter Visit Diagnoses Not on filedocumented in this encounter Additional Health Concerns Infection Onset Date Last Indicated Resolved Time COVID-19 Rule-Out 01/26/2022 01/26/2022 01/26/2022 8:17 PM EST documented as of this encounter Care Teams Tetryl Nitrator Operator Relationship Specialty Start Date End Date Dc Banks DO PCP - General Family Medicine 08/03/10 Kathryn Gutierrez, RN [address] [place] [address] Specialty Support Services Manager Hematology 04/03/22 documented as of this encounter
--- OUTSIDE RECORDS SUMMARY | 2024-09-11 08:35 | XMS_ITS | Clinical Summary ---
Author Organization [facility] Address [address] [place], [place] [id number] Care Team Providers Care Hospice Patient Care Secretary Name Role Phone Dc Banks Primary Care Provider [phone] Kathryn Gutierrez RN Unavailable Unavaila ble Allergies Active Allergy Reactions Criticality Noted Date Comments Serotonin 5ht-3 Antagonists Other: See Comments 10/06/2010 It knocks me out. Carbinoxamine Unknown 08/04/2021 Other Reaction(s): Unknown Reaction Duloxetine Other: See Comments 05/07/2023 Eyes dilated; felt drugged Latex, Natural Rubber Rash,Swelling Low 1985 Metformin GI Upset High 07/19/2023 Had difficulty eating due to nausea. Pseudoephedrine Unknown 08/04/2021 Other Reaction(s): Unknown Reaction Brompheniramine-Pseudoeph edrin Other: See Comments 07/30/2008 crying for 12 solid hours-per mom Medications * This document contains information received from the source organization and may not represent a complete record from that organization. ondansetron orally disintegrating (ZOFRAN ODT) 4 mg disintegrating tablet TAKE ONE TABLET BY MOUTH EVERY 8 HOURS NEEDED FOR NAUSEA VOMITING 12/15/19 22 Active omega-3 fatty acids 1,000 mg cap Take 1 capsule by mouth once daily. 10/12/19 23 Active omeprazole (PRILOSEC) 40 mg capsule Take 1 capsule by mouth two times a day. 10/18/19 23 Active potassium chloride SR (MICRO-K) 10 mEq CR capsule Take 10 mEq by mouth once daily. 06/06/19 23 Active propranolol ER (INDERAL LA) 60 mg 24 hr capsule Take 1 capsule by mouth once daily. 30 capsule 1 01/03/20 24 Active immune globulin, human,, IgG, (GAMMAGARD LIQUID) 10 % soln Inject 300 mL intravenously every 2 weeks. 300 mL 11 03/27/19 25 Active mirtazapine (REMERON) 45 mg tablet Take 1 tablet by mouth daily at bedtime. 90 tablet 1 08/06/19 25 025 Active buPROPion XL (WELLBUTRIN XL) 300 mg 24 hr tablet Take 1 tablet by mouth once daily. 90 tablet 1 08/06/19 25 Active Active Problems Problem Noted Date Diagnosed Date GERD (gastroesophageal reflux disease) Assessment & Plan (12/13/2022 10:06 PM EDT): Assessment: managed with Omeprazole Functional movement disorder 08/10/2022 Seizure-like activity 07/14/2022 Gastroparesis 06/09/2022 Assessment & Plan (12/13/2022 10:06 PM EDT): Assessment: managed with Zofran Positive JANIE antibody 06/09/2022 Somnambulism 02/10/2022 Somniloquy 02/10/2022 Sleep-related movement disorder 02/10/2022 Malaise and fatigue 02/10/2022 Nicotine use disorder, F17.2 01/31/2022 Nausea & vomiting 01/27/2022 Transaminitis 01/27/2022 Intussusception 01/27/2022 H/O: pituitary tumor 01/27/2022 History of colectomy 01/27/2022 Assessment & Plan (12/13/2022 10:09 PM EDT): Assessment: Robotic laparoscopic total abdominal colectomy with ileorectal anastomosis and diverting ileostomy 2015 for slow transit constipation Chronic insomnia 01/27/2022 Stage 2 chronic kidney disease 01/27/2022 Assessment & Plan (12/13/2022 10:02 PM EDT): Assessment: Creatinine Date Value Ref Range Status 11/21/2022 1.08 (H) 0.58 - 0.96 mg/dL Final BUN Date Value Ref Range Status 11/21/2022 13 7 - 21 mg/dL Final Right upper quadrant abdominal pain 01/26/2022 Recurrent infections 01/17/2022 Enteropathy 01/17/2022 Cytopenia 01/17/2022 CVID (common variable immunodeficiency) 09/04/19 Assessment & Plan (12/13/2022 10:08 PM EDT): Assessment: managed with IgG Generalized anxiety disorder 10/13/2016 Postoperative pain 07/15/2015 Postoperative ileus 07/15/2015 Attention to ileostomy 07/07/2015 Malnutrition of mild degree 06/01/2015 Overview (06/01/2015): Diet education provided Anticoagulation management encounter 05/25/2015 Abdominal pain 05/23/2015 Overview (01/27/2022): Most likely given history and course high suspicion for functional element however, can not r/o organic cause. Infectious vs inflammatory -CBC, CMP: concerning for Hb 6.7 repeat 6.4. Consent for blood and order 2 units -Infectious workup :UA, blood cultures, lipase, lactate, CXR PA/L (reported rib pain), stool studies- C dif, stool culture and ova and parasite -Obtain CT abdomen and pelvis w contrast (reports fevers x 3 weeks at home and abdominal pain in face of recent surgery and is planned for stoma takedown on 06/01 so it would be worthwhile ruling out infection) -Hold off on antibiotics unless there are fevers observed in patient or infectious workup is suggestive of infection -Symptomatic mgmt with IVF, electrolyte replacement, morphine Q3H PRN and bentyl, protonix for gastritis, zofran - nutrition consult - ostomy consult SUMMARY 05/23/2015 Overview (05/23/2015): 29 year old with Hx significant for POTS, pseudoseizures, anxiety, CVID, chronic abdominal pain, chronic active gastritis, constipation s/p total colectomy and ileorectal anastomosis and diverting ileostomy on 02/2015 presents with abdominal pain radiating ot back for 3 days, 3 episodes of vomiting and reported fevers upto 103 degree during the last three weeks. 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 05/23/2015 Recurrent convulsions 09/25/2014 Recurrent vomiting 09/25/2014 Hypogammaglobulinemia 09/18/2013 Dysautonomia 11/09/2009 Pituitary tumor 03/03/2009 Hypothyroidism 03/03/2009 Abdominal pain, generalized 09/25/2008 Other vitamin B12 deficiency anemia 07/30/2008 Tobacco abuse Low back pain Depression Assessment & Plan (12/13/2022 9:50 PM EDT): Assessment: managed with Buspar Anxiety PMS (premenstrual syndrome) POTS (postural orthostatic tachycardia syndrome) Assessment & Plan (12/13/2022 9:58 PM EDT): Assessment: managed with sodium chloride Follows with neuro- last visit with Tasha Daniels APRN.GIFT OFFICER 2022 PTSD (post-traumatic stress disorder) Assessment & Plan (12/13/2022 10:07 PM EDT): Assessment: managed with Buspar Follows with psychiatry Former smoker Assessment & Plan (12/13/2022 9:59 PM EDT): Assessment: quit 2015 Resolved Problems Problem Noted Date Diagnosed Date Resolved Date Upper GI bleed 07/19/2016 07/20/2016 Vitamin D deficiency 05/04/2009 010 Encounters * This document contains information received from the source organization and may not represent a complete record from that organization. Date Type Department Care Team Description 09/09/2024 Telephone Cardiology [address] [place] [address] Krystyna Velazquez MD Appointment (I spoke to patient and she is aware of the cancel appt with Dr. Velazquez on Nov 20 and [place] date with Dr. Rowe on Oct 2nd. Cancellation sent though [employer].) 09/01/2024 Patient Msg Integrative Medicine [address] [place] [address] Daren Munson DC Appointment Request 08/31/2024 Patient Msg [facility]ative [facility] [address] [place] [address] Daren Munson DC Appointment Request 08/28/2024 Telephone Allergy [address] [address] Carlos Kiser MD, PhD Prior Authorization ([facility] ) 08/20/2024 1:00 PM EDT [facility] [address] [place] [id number] Sylwia Mathis PA-C No-show for appointment (Primary Dx); Functional neurological symptom disorder with mixed symptoms 08/18/2024 3:45 PM EDT Office Visit [facility]ative Medicine [address] [place] [address] Daren Munson DC Segmental and somatic dysfunction of cervical region (Primary Dx); Segmental and somatic dysfunction of thoracic region; Segmental and somatic dysfunction of lumbar region; Chronic bilateral low back pain, unspecified whether sciatica present; Chronic bilateral thoracic back pain; Cervical spine pain 08/11/2024 Travel 08/04/2024 Patient Neg [facility] [address] [place] [address] Daren Munson DC Appointment Request 08/01/2024 3:30 PM EDT Office Visit [facility] [address] [place] [address] Daren Munson DC Segmental and somatic dysfunction of thoracic region (Primary Dx); Segmental and somatic dysfunction of lumbar region; Chronic bilateral thoracic back pain; Chronic bilateral low back pain, unspecified whether sciatica present 07/22/2024 Abstract Neurology [address] [place] [address] Main, Psg Neur PSG Check In 07/18/2024 Patient Msg Neurology [address] [place] [address] Provider, Ccf Please Confirm Your Sleep Study Appointment Scheduled on 07/23/24. 07/16/2024 Patient Msg Neurology [address] [place] [address] Provider, Ccf Please Confirm Your Sleep Study Appointment Scheduled For 07/23/24. 07/09/2024 2:00 PM EDT Office Visit [facility] [address] [place] [address] Daren Munson DC Segmental and somatic dysfunction of cervical region (Primary Dx); Segmental and somatic dysfunction of lumbar region; Segmental and somatic dysfunction of thoracic region; Chronic bilateral thoracic back pain 07/09/2024 Travel 06/25/2024 3:45 PM EDT Office Visit [facility] [address] [place] [address] Daren Munson DC Segmental and somatic dysfunction of lumbar region (Primary Dx); Segmental and somatic dysfunction of cervical region; Segmental and somatic dysfunction of thoracic region; Cervical spine pain; Chronic bilateral thoracic back pain; Chronic bilateral low back pain with bilateral sciatica 06/24/2024 Patient Msg Neurology [address] [place] [address] Provider, Ccf Appointment cancellation. 06/16/2024 1:00 PM EDT [facility] [address] [place] [address] Evon Hicks MD Functional neurological symptom disorder with mixed symptoms from Last 3 Months Immunizations Immunization Administration Dates Next Due pneumococcal polysaccharide (PPV23) vaccine, 23 valent (PNEUMOVAX 23) 08/04/2009 Family History Medical History Relation Comments healthy [Other] Daughter Alcohol abuse Father Gout Father Diabetes Maternal Aunt 1 type 1 Thyroid Maternal Aunt 2 grave's Thyroid Maternal Aunt 3 Neel's Thyroid Maternal Uncle hypothyroid Diabetes Mother Hyperlipidemia Mother Hypertension Mother Raynauds [Other] Mother Cancer Paternal Grandmother lung; smoke r POTS [Other] Sister 1 both sisters AVM [Other] Sister 2 Relation Status Comments Daughter Father Maternal Aunt 1 Maternal Aunt 2 Maternal Aunt 3 Maternal Uncle Mother Paternal Grandmother Sister 1 Sister 2 Social History Tobacco Use Types Packs/Day Years [...] is lower risk 4 06/27/2022 Data from: https://www.neighborhoodatlas.medicine.[facility].edu/. Last address used for calculation [address] 06/27/2022 Comments No Sex and Gender Information Value Date Recorded Sex Assigned at Female 11/11/2019 8:58 AM EDT Legal Sex Female 8:12 AM EST Gender Identity Female 11/11/2019 8:58 AM EDT Sexual Orientation Not on file Last Filed Vital Signs Vital Sign Reading Time Taken Comments Blood Pressure 116/76 08/15/2023 1:00 PM EDT Pulse 88 08/15/2023 1:00 PM EDT Temperature 36.9 C (98.4 F) 12/06/2022 12:45 PM EDT Respiratory Rate 20 12/06/2022 12:45 PM EDT Oxygen Saturation 98% 08/15/2023 1:00 PM EDT Inhaled Oxygen Concentration - - Weight 74.8 kg (165 lb) 03/08/2023 1:26 PM EST Height 154.9 cm (5' 1 ) 12/06/2022 8:46 AM EDT Body Mass Index 31.18 12/06/2022 8:46 AM EDT Plan of Treatment Upcoming Encounters Date Type Department Care Team (Latest Contact Info) Description 09/16/2024 2:30 PM EDT OT/PT/Speech Visit [facility] Physical Therapy [address] [place] [address] Claribel Katz, PT [address] [place] [address] Functional neurological symptom disorder with mixed symptoms [F44.7] 09/17/2024 1:30 PM EDT Office Visit Integrative Medicine [address] [place] [address] Daren Munson DC [address] [place] [address] Visit 8 of 15 - Medicaid 10/14/2024 4:00 PM EDT [facility] [address] [place] [address] Sylwia Mathis PA-C [address] [place], [place] [phone] I apologize I missed our last visit. I l l explain 11/13/2024 10:30 AM EDT [facility] Allergy [address] [address] Carlos Kiser MD, PhD [address] [place] [address] CVID 11/20/2024 12:00 PM EDT Procedure Cardiology [address] [place] [address] VELAZQUEZ CX/[place] LIST. 11/20/2024 12:45 PM EDT Office Visit Cardiology [address] [place] [address] Liu Rowe MD [address] [place] [address] VELAZQUEZ CX/[place] LIST. Health Maintenance Due Date Last Done Comments Annual PCP Team Chronic Dise ase Visit 11/09/2003 DTaP,Tdap,Td Vaccine (1 - Tdap) 2004 Shingrix Vaccine (1 of 2) 2004 Cervical Cancer Screening 11/04/2009 11/04/2008 Pneumococcal Vaccine (2 of 2 - PCV) 08/04/2010 08/04/2009 Influenza Vaccine (#1) 2024 Serum Creatinine 04/01/2025 04/01/2024, , 08/06/2023, Additional history exists HIV Screening Completed 02/17/2022 Hepatitis C Screening Completed 02/17/2022 , 02/17/2022, 01/25/2022, Additional history exists Procedures Procedure Name Priority Date/Time Associated Diagnosis Comments BASIC METABOLIC PANEL Routine 04/01/2024 3:06 PM EST CVID (common variable immunodeficiency) (HCC) HIV 1/2 COMBO WITH REFLEX TO DIFFERENTIATION Routine 02/17/2022 2:13 PM EST Thrombocytopenia (HCC) HEPATITIS C ANTIBODY IA WITH CONFIRMATION Routine 02/17/2022 2:13 PM EST Thrombocytopenia (HCC) from Last 3 Months or Most Recently Relevant to Health Maintenance Results * (ABNORMAL) BASIC METABOLIC PANEL (04/01/2024 3:06 PM EST) [facility] Glucose 90 74 - 99 mg/dL 04/01/2024 3:[address] [facility] Comment: The [place] Diabetes Association (ADA) provides guidance for cutoff [...] Standards of Medical Care in Diabetes 2016, [place] Diabetes Association. Diabetes Care. 2016.39(Suppl 1). BUN 19 7 - 21 mg/dL 04/01/2024 3:43 PM [facility] Creatinine 0.93 0.58 - 0.96 mg/dL 04/01/2024 3:43 PM [facility] Sodium 138 136 - 144 mmol/L 04/01/2024 3:43 PM [facility] Potassium 4.3 3.7 - 5.1 mmol/L 04/01/2024 3:43 PM [facility] Chloride 97(L) 98 - 107 mmol/L 04/01/2024 3:43 PM [facility] CO2 28 22 - 30 mmol/L 04/01/2024 3:43 PM [facility] Anion Gap 13 8 - 15 mmol/L 04/01/2024 3:[address] [facility] Calcium, Total 10.0 8.5 - 10.2 mg/dL 04/01/2024 3:[address] [facility] Estimated Glomerular Filtration Rate 81 >=60 mL/min/1.7 3m 04/01/2024 3:[address] [facility] Comment:Estimated Glomerular Filtration Rate (eGFR) is calculated using the 2020 CKD-EPI creatinine equation. This equation utilizes serum creatinine, sex, and age as parameters. The creatinine assay has traceable calibration to isotope dilution- mass spectrometry. Refer to KDIGO guidelines for clinical interpretation. In patients with unstable renal function, e.g. those with acute kidney injury, the eGFR may not accurately reflect actual GFR. Blood BLOOD SPECIMEN / Unknown Venipuncture / Unknown 04/01/2024 3:06 PM EST 04/01/2024 3:06 PM EST Carlos Kiser MD, PhD LABORATORY Final Result [facility] [address] [place] [address] * HIV 1 2 COMBO(AG/AB),WITH REFLEX TO DIFFERENTIATION (02/17/2022 2:13 PM EST) HIV 12 Combo (Ag/Ab) Nonreactive Nonreactive 02/18/2022 10:27 AM EST [facility] HIV-1/2 AB (Confirmatory) 02/18/2022 10:27 AM EST [facility] Comment:Test not indicated. HIV Interpretation 02/18/2022 10:27 AM EST [facility] Comment: No evidence of HIV-1 or HIV-2 infection. Should recent infection be suspected, repeat testing may be considered 2-3 weeks after this draw. [place] Rev. Code 3701.243(E): This information has been disclosed to you from confidential records protected from disclosure by state law. You shall make no further disclosure of this information without the specific, written, and informed release of the individual to whom it pertains or as otherwise permitted by state law. A general authorization for the release of medical or other information is not sufficient for the purpose of the release of HIV test results or diagnoses. Blood BLOOD SPECIMEN / Unknown Venipuncture / Unknown 02/17/2022 2:13 PM EST 02/17/2022 2:13 PM EST Chilo Wood MD LABORATORY Final Result Performing Organization Address [facility] Co de Phone Number [facility] [address] [place] [address], * HEP C AB IA W/CONF SCRN (02/17/2022 2:13 PM EST) Hep C Antibody IA Negative Negative 02/18/2022 10:25 AM EST [facility] Comment:The result suggests no evidence of active infection with Hepatitis C virus. Should recent infection be suspected, repeat testing may be considered 4-6 weeks after this draw. Blood BLOOD SPECIMEN / Unknown Venipuncture / Unknown 02/17/2022 2:13 PM EST 02/17/2022 2:13 PM EST Chilo Wood MD LABORATORY Final Result Performing Organization Address [facility] Co de Phone Number [facility] [place] [address], from Last 3 Months or Most Recently Relevant to Health Maintenance Insurance [employer] Advance Directives Documents on File Type Date Recorded Patient Director Of Enterprise Applications Expl anation Advance Directive(s) 03/18/2015 8:14 PM * Full Code (Latest Code Status on File) Date Activated Date Inactivated Comments 01/27/2022 3:33 AM 01/31/2022 9:49 PM Question Answer Comments Full Code Order Discussed With: Patient Care Teams Hospice Patient Care Secretary Relationship Specialty Start Date End Date Dc Banks DO PCP - General Family Medicine 08/03/10 Kathryn Gutierrez, ARMANI [address] [place] [address] Specialty Slat Basket Maker Hematology 04/03/22
--- OUTSIDE RECORDS SUMMARY | 2024-09-11 08:35 | XMS_ITS | Encounter Summary ---
Author Organization [facility] Address [address] [place], [place] [id number] Care Team Providers Care Progress Worker Name Role Phone Dc Banks Primary Care Provider [phone] Kathryn Gutierrez RN Unavailable Unavaila ble Source Comments In the event this information is protected by the Federal Confidentiality of Alcohol and Drug AbusePatient Records regulations: The Federal rules restrict any use of the information to criminally investigate or prosecute any alcohol or drug abuse patient.[facility] Encounter Details Date Type Department Care Team (Late st Contact Info) Description 04/26/2021 Get Medical Advice Rheumatology [address] [place] [address] Carlos Kiser MD, PhD [address] [place], [place] [phone] Needing Home Health Social History Tobacco Use Types Packs/Day Years Used Date Smoking Tobacco: Former Cigarettes 0.5 6 1 02/19/2007 - 12/20/2013 Smokeless Tobacco: Never Alcohol Use Standard Drinks/Week Comments No 0 (1 standard drink = 0.6 oz pur e alcohol) PHQ-2 Answer Date Recorded PHQ-2 score 6 04/23/2021 Area Deprivation Index Answer Date Slava rded National Score (1-100), lower number is lower ri sk Not on file 01/25/2020 State Score (1-10), lower number is lower risk N ot on file 01/25/2020 Data from: https://www.neighborhoodatlas.medicine.[facility]/. Last address used for calculation Not on file 01/25/2020 Comments No Sex and Gender Information Value [...] suspected to have Coronavirus/COVID-19? No / Unsure 04/28/2021 8:36 AM EST documented as of this encounter [...] Center Physical Therapy [address] [place] [address] Claribel Katz, PT [address] [place] [address] Functional neurological symptom disorder with mixed symptoms [F44.7] 09/17/2024 1:30 PM EDT Office Visit [facility] [address] [place] [address] Daren Munson DC [address] [place] [address] Visit 8 of 15 - Medicaid 10/14/2024 4:00 PM EDT [facility] [address] [place] [address] Sylwia Mathis PA-C [address] [place] [address] I apologize I missed our last visit. I l l explain 11/13/2024 10:30 AM EDT [facility] Allergy [address] [address] Carlos Kiser MD, PhD [address] [place], [place] [phone] CVID 11/20/2024 12:00 PM EDT Procedure Cardiology [address] [place] [address] VELAZQUEZ CX/SHREE LIST. 11/20/2024 12:45 PM EDT Office Visit Cardiology [address] [place] [address] Liu Rowe MD [address] [place] [address] VELAZQUEZ CX/SHREE LIST. documented as of this encounter Visit Diagnoses Not on filedocumented in this encounter Additional Health Concerns Infection Onset Date Last Indicated Resolved Time COVID-19 Rule-Out 01/26/2022 01/26/2022 01/26/2022 8:17 PM EST documented as of this encounter Care Teams Progress Worker Relationship Specialty Start Date End Date Dc Banks DO PCP - General Family Medicine 08/03/10 Kathryn Gutierrez, RN [address] [place] [address] Specialty Commercial Crabber Hematology 04/03/22 documented as of this encounter
--- OUTSIDE RECORDS SUMMARY | 2024-09-11 08:35 | XMS_ITS | Encounter Summary ---
Author Organization [facility] Address [address] [place], [place] [phone] Care Team Providers Care Mechanical Cad Drafter Name Role Phone Dc Banks Primary Care Provider [phone] Kathryn Gutierrez RN Unavailable Unavaila ble Source Comments In the event this information is protected by the Federal Confidentiality of Alcohol and Drug AbusePatient Records regulations: The Federal rules restrict any use of the information to criminally investigate or prosecute any alcohol or drug abuse patient.[facility] Encounter Details Date Type Department Care Team (Late st Contact Info) Description 04/02/2024 Patient Msg Allergy [address] [place] [address] Carlos Kiser MD, PhD [address] [place], [place] [phone] labs Social History Tobacco Use Types Packs/Day Years Used Date Smoking Tobacco: Former Cigarettes 0.5 6 1 02/19/2009 - 12/21/2015 Smokeless Tobacco: Never Alcohol Use Standard Drinks/Week Comments Yes 0 (1 standard drink = 0.6 oz pur e alcohol) less than 1 drink per week PHQ-2 Answer Date Recorded PHQ-2 score 6 03/18/2024 Area Deprivation Index Answer Date Slava rded National Score (1-100), lower number is lower ri sk 61 06/27/2022 State Score (1-10), lower number is lower risk 4 06/27/2022 Data from: https://www.neighborhoodatlas.medicine.[facility] [place]/. Last address used [...] 2:30 PM EDT OT/PT/Speech Visit [facility] Physical Therapy [address] [place] [address] Claribel Katz, PT [address] [place] [address] Functional neurological symptom disorder with mixed symptoms [F44.7] 09/17/2024 1:30 PM EDT Office Visit Integrative Medicine [address] [place] [address] Daren Munson DC [address] [place] [address] Visit 8 of - Medicaid 10/14/2024 4:00 PM EDT [facility] [address] [place] [address] Sylwia Mathis PA-C [address] [place] [address] I apologize I missed our last visit. I l l explain 11/13/2024 10:30 AM EDT [facility] [address] [address] Carlos Kiser MD, PhD [address] [place], [place] [phone] CVID 11/20/2024 12:00 PM EDT Procedure Cardiology [address] [place] [address] VELAZQUEZ CX/SHREE LIST. 11/20/2024 12:45 PM EDT Office Visit Cardiology [address] [place] [address] Liu Rowe MD [address] [place] [address] VELAZQUEZ CX/SHREE LIST. documented as of this encounter Visit Diagnoses Not on filedocumented in this encounter Care Teams Mechanical Cad Drafter Relationship Specialty Start Date End Date Dc Banks DO PCP - General Family Medicine 08/03/10 Kathryn Gutierrez, RN [address] [facility] [address] [place] [address] Specialty Transmission Mechanic Hematology 04/03/22 documented as of this encounter
--- OUTSIDE RECORDS SUMMARY | 2024-09-11 08:35 | XMS_ITS | Encounter Summary ---
Author Organization [facility] Address [address] [place], [place] [id number] Care Team Providers Care Local Company Tanker Driver Name Role Phone Dc Banks DO Primary Care Provider [phone] Kathryn Gutierrez RN Unavailable Unavaila ble Source Comments In the event this information is protected by the Federal Confidentiality of Alcohol and Drug AbusePatient Records regulations: The Federal rules restrict any use of the information to criminally investigate or prosecute any alcohol or drug abuse patient.[facility] Encounter Details Date Type Department Care Team (Late st Contact Info) Description 03/27/2024 Get Medical Advice Allergy [address]48 [place] [address] Carlos Kiser MD, PhD [address] [place], [place] [id number] IMPORTANT re today s appt & new orders!! Social History Tobacco Use Types Packs/Day Years [...] is lower risk 4 06/27/2022 Data from: https://www.neighborhoodatlas.medicine.[facility].edu/. Last address used for calculation [address] [...] Description 09/16/2024 2:30 PM EDT OT/PT/Speech Visit [facility] Physical Therapy [address] [place] [address] Claribel Katz, PT [address] [place], [place] [id number] Functional neurological symptom disorder with mixed symptoms [F44.7] 09/17/2024 1:30 PM EDT Office Visit Integrative Medicine [address] [place] [address] Daren Munson DC 9500 [place] [address] Visit 8 of - Medicaid 10/14/2024 4:00 PM EDT [facility] Neurological Gnosticist [address] [place] [address] Sylwia Mathis PA-C 9500 [place] [address] I apologize I missed our last visit. I l l explain 11/13/2024 10:30 AM EDT [facility] Allergy [address] [address] Carlos Kiser MD, PhD [address]00 [place] [address] CVID 11/20/2024 12:00 PM EDT Procedure Cardiology [address] [place] [address] VELAZQUEZ CX/SHREE LIST. 11/20/2024 12:45 PM EDT Office Visit Cardiology 9300 [place] [address] iLu Rowe MD [address] [place] [address] VELAZQUEZ CX/SHREE LIST. documented as of this encounter Visit Diagnoses Not on filedocumented in this encounter Care Teams Local Company Tanker Driver Relationship Specialty Start Date End Date Dc Banks DO PCP - General Family Medicine 08/03/10 Kathryn Gutierrez, ARMANI 9500 [facility] [address] [place] [address] Specialty Psychological Assistant Hematology 04/03/22 documented as of this encounter
--- OUTSIDE RECORDS SUMMARY | 2024-09-11 08:35 | XMS_ITS | Encounter Summary ---
Author Organization [facility] Address [address] [place] [address] Care Team Providers Care Coat Padder Name Role Phone Dc Banks Primary Care Provider [phone] Kathryn Gutierrez RN Unavailable Unavaila ble Source Comments In the event this information is protected by the Federal Confidentiality of Alcohol and Drug AbusePatient Records regulations: The Federal rules restrict any use of the information to criminally investigate or prosecute any alcohol or drug abuse patient.[facility] Encounter Details Date Type Department Care Team (Late st Contact Info) Description 02/21/2024 Patient Msg Neurology [address] [place], [place] [id number] Provider, Ccf Appointment scheduling Social History Tobacco Use Types Packs/Day Years Used Date Smoking Tobacco: Former Cigarettes 0.5 6 1 02/19/2009 - 12/21/2015 Smokeless Tobacco: Never Alcohol Use Standard Drinks/Week Comments Yes 0 (1 standard drink = 0.6 oz pur e alcohol) less than 1 drink per week PHQ-2 Answer Date Recorded PHQ-2 score 6 02/15/2024 Area Deprivation Index Answer Date Slava rded National Score (1-100), lower number is lower ri sk 61 06/27/2022 State Score (1-10), lower number is lower risk 4 06/27/2022 Data from: https://www.neighborhoodatlas.[facility]/. Last address used for [...] 07/16/2022 11:15 AM Mallorie iJmenez RN * Are you blind or do [...] Description 09/16/2024 2:30 PM EDT OT/PT/Speech Visit [facility] Physical Therapy [address] [place] [place] [address] Claribel Katz, PT [address] [place], [place] [phone] Functional neurological symptom disorder with mixed symptoms [F44.7] 09/17/2024 1:30 PM EDT Office Visit Integrative Medicine [address] [place] [address] Daren Munson DC 9500 [place] [address] Visit 8 of - Medicaid 10/14/2024 4:00 PM EDT [facility] 9300 [place] [address] Sylwia Mathis PA-C 9500 [place] [address] I apologize I missed our last visit. I l l explain 11/13/2024 10:30 AM EDT [facility] Allergy [address] [address] Carlos Kiser MD, PhD [address]00 [place] [address] CVID 11/20/2024 12:00 PM EDT Procedure Cardiology [address] [place] [address] VELAZQUEZ CX/SHREE LIST. 11/20/2024 12:45 PM EDT Office Visit Cardiology 9300 [place] [address] Liu Rowe MD [address] [place] [address] VELAZQUEZ CX/SHREE LIST. documented as of this encounter Visit Diagnoses Not on filedocumented in this encounter Care Teams Coat Padder Relationship Specialty Start Date End Date Dc Banks DO PCP - General Family Medicine 08/03/10 Kathryn Gutierrez, ARMANI 9500 [facility] [address] [place] [address] Specialty Long Term Care Administrator Hematology 04/03/22 documented as of this encounter
[2024-09-11 14:41] LABS: Alanine Aminotransferase 25 U/L (14-59); Albumin Globulin Ratio 0.8; Albumin Level 3.3 g/dL (3.4-5.0); Alkaline Phosphatase 127 U/L (46-116); Anion Gap 13.9; Aspartate Amino Transferase 22 U/L (15-37); Blood Urea Nitrogen 18.0 mg/dL (7.0-18.0); Calcium 9.4 mg/dL (8.5-10.1); Carbon Dioxide 28.3 mmol/L (21.0-32.0); Chloride 104 mmol/L (98-107); Estimated GFR (African America >60 (>=60 mL/min/1.73m^2); Estimated GFR (Non-African Ame >60 (>=60 mL/min/1.73m^2); Free T3 2.82 pg/mL (2.18-3.98); Globulin 4.2 g/dL; Glucose 105 mg/dL (74-106); Potassium 4.2 mmol/L (3.5-5.1); Sodium 142 mmol/L (136-145); Thyroid Stimulating Hormone 0.429 uIU/mL (0.358-3.740); Total Protein 7.5 g/dL (6.4-8.2)
== END 2024-09-11 08:27 | disposition home or self-care (01) ==
LOC: LAB 08:29
PROVIDERS: PCP Family Medicine; Visit Provider Family Medicine
DX: E06.3 Autoimmune thyroiditis (principal); E34.9 Endocrine disorder, unspecified; R21 Rash and other nonspecific skin eruption; R79.89 Other specified abnormal findings of blood chemistry; E16.1 Other hypoglycemia
CPT/HCPCS: 36415; 80053; 82533; 84402; 84403; 84439; 84443; 84481; 85652; 86140

== ENCOUNTER 2024-09-12 10:30 | Outpatient (REF) | payer OTHER, SELFPAY ==
--- OUTSIDE RECORDS SUMMARY | 2024-09-08 14:30 | XMS_ITS | Encounter Summary ---
Author Organization [facility] Address [address], [address] [place] [address] Care Team Providers Care Reporting Coordinator Name Role Phone Dc Soria DO Primary Care Provider [phone] Reason for Visit * Reason Comments Anxiety 3 month follow up. Rash She has been getting intermittent rashes on her back and butt for a few weeks. The rash is red/purple in color. Denies pain or itching. She has also had scabs and dark red lesions/sores in the areas where she is getting the rash. She has woke up with sores inside her nose as well. Weight Gain She continues to str uggle with gain and would like to discuss weight loss options. She has tried Adipex in the past with minimal effectiveness, but once she stopped the medication, she gained 10+lbs. She is concerned that her thyroid levels are off. Other Requesting a prescri ption for a handicap placard. 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 No 03/11/2024 Overall Financial Resource Strain (CARDIA) Answe r Date Recorded How hard is it for you to pa y for the very basics like food, housing, medical care, and heating? Very hard 11/10/2023 PHQ-2 Answer Date Recorded PHQ-9 Total Score 0 03/11/2024 Hunger Vital Sign Answer Date Recorded Within the past 12 months, y ou worried that your food would run out before you got the money to buy more. Never true 03/11/19 25 Within the past 12 months, t he food you bought just didn't last and you didn't have money to get more. Never true 03/11/2024 PRAPARE - Transportation Answer Date Re corded In the past 12 months, has l ack of transportation kept you from medical appointments or from getting medications? No 02/20 In the past 12 months, has l ack of transportation kept you from meetings, work, or from getting things needed for daily living? No 03/11/2024 Housing Stability Vital Sign Answer Zen e Recorded Unable to Pay for Housing in the Last Year Not o n file 10/16/2022 Number of Places Lived in the Last Year Not on f ile 10/16/2022 In the last 12 months, was t here a time when you did not have a steady place to sleep or slept in a retirement (including now)? No 10/16/2022 Housing Stability Vital Sign Answer Zen e Recorded In the last 12 months, was t here a time when you were not able to pay the mortgage or rent on time? No 03/11/2024 In the past 12 months, how m any times have you moved where you were living? 0 03/11/2024 At any time in the past 12 m [facility], were you homeless or living in a retirement (including now)? No 03/11/2024 Food Insecurity Answer Date Recorded Within the past 12 months, y ou worried that your food would run out before you got the money to buy more. 1 03/11/2024 Within the past 12 months, t he food you bought just didn't last and you didn't have money to get more. 1 03/11/2024 Comments No Sex and Gender Information Value Date Recorded Sex Assigned at Female 04/25/2024 11:36 AM EST Legal Sex Female 2:42 PM EDT Gender Identity Female 04/25/2024 11:36 AM EST Sexual Orientation Not on file documented as of this encounter Last Filed Vital Signs Vital Sign Reading Time Taken Comments Blood Pressure 102/70 09/08/2024 2:53 PM EDT Pulse 57 09/08/2024 2:53 PM EDT Temperature 36.4 C (97.5 F) 09/08/2024 2:53 PM EDT Respiratory Rate - - Oxygen Saturation 98% 09/08/2024 2:53 PM EDT Inhaled Oxygen Concentration - - Weight 80.3 kg (177 lb) 09/08/2024 2:53 PM EDT Height 157.5 cm (5' 2 ) 09/08/2024 2:53 PM EDT Body Mass Index 32.37 09/08/2024 2:53 PM EDT documented in this encounter Progress Notes * Dc Soria, DO - 09/08/2024 3:12 PM EDT Images from the original note were not included. Juli Hu (: 1985) is a 38 y.o. female, Established patient, here for evaluation of thefollowing chief complaint(s): Anxiety (3 month follow up. ), Rash (She has been getting intermittent rashes on her back and butt for a few weeks. The rash is red/purple in color. Denies pain or itching. She has also had scabs anddark red lesions/sores in the areas where she is getting the rash. She has woke up with sores inside her nose as well. ), Weight Gain (She continues to struggle with gain and would like to discuss anabela ght loss options. She has tried Adipex in the past with minimal effectiveness, but once she stoppedthe medication, she gained 10+lbs. She is concerned that her thyroid levels are off.), and Other (Requesting a prescription for a handicap placard.) Subjective History of Present Illness The patient presents for evaluation of weight gain, gastroparesis, intussusception, rash, and depression. She has experienced a weight gain of 10 pounds, which she attributes to frequent vomiting due to worsening gastroparesis. She is considering supplements for Neel's and cortisol but is unsure of their effectiveness. She is currently on Synthroid and is questioning its efficacy. 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 She underwent a POP procedure where some netting over the sphincter was removed, but she was informed thata repeat procedure would be necessary to remove the remaining netting. She has not yet undergone this second procedure. She continues to consume protein shakes. She has developed a rash on her buttocks, similar to one she occasionally gets on her chest. The rash is under the skin, purple and red in color, and appears intermittently. She also reports increasing lesions on her back and buttocks, which are painful and prevent her from wearing underwear. She has scabs on her back and recalls waking up with five sores in her nose one day. She constantly feelsfeverish and achy but does not have a fever. She has been experiencing these symptoms for several weeks. She also reports feeling bruised all over, although she has no visible bruises. She has been dealing with these issues for 26 years and feels like she is in the same situation again. She has been falling more frequently and experiencing increased pain in her lower back and hips. She has been referred to integrative medicine at the [facility] for her hip issues and is considering hip replacement surgery in a few years. She has been reading about cortisol belly and trying to understandher symptoms, but she is also trying not to convince herself that she has cancer. She was previously diagnosed with shingles on her foot, which presented as blisters rather than a rash. She reports that her depression is worsening, with increased crying episodes. She is currently on Wellbutrin and was taken off BuSpar. She is requesting a refill of her progesterone prescription. Shereports that her hot flashes have ceased since starting the progesterone. She experiences leg weakness and falls when her anxiety flares up, often resulting in injuries. Shewas advised by neurology to take a break as her anxiety and stress levels were exacerbating her symptoms. She continues to work as much as possible. She feels like she could slip into a seizure at any moment. She is requesting a prescription for a handicap placard due to her frequent falls. PAST SURGICAL HISTORY: POP procedure Controlled substances monitoring: possible medication side effects, risk of tolerance and/or dependence, and alternative treatments discussed, no signs of potential drug abuse or diversion identified, and OARRS report reviewed today- activity consistent with treatment plan. Past Medical History: Diagnosis Date ADHD (attention deficit hyperactivity disorder) Anxiety Chronic kidney disease Depression GERD (gastroesophageal reflux disease) Headache Hypothyroidism Seizures (HCC) Type 2 diabetes mellitus without complication (HCC) Past Surgical History: Procedure Laterality Date SMALL INTESTINE SURGERY TOTAL COLECTOMY UPPER GASTROINTESTINAL ENDOSCOPY Social History Socioeconomic History Marital status: Spouse name: Not on file Number of children: Not on file Years of education: Not on file Highest education level: Not on file Occupational History Not on file Tobacco Use Smoking status: Former Current packs/day: 0.00 Average packs/day: 1 pack/day for 10.0 years (10.0 ttl pk-yrs) Types: Cigarettes Start date: 2005 Quit date: 2016 Years since quittin.5 Passive exposure: Past Smokeless tobacco: Never Vaping Use Vaping status: Never Used Substance and Sexual Activity Alcohol use: Not Currently Drug use: Never Sexual activity: Yes Partners: Male Other Topics Concern Not on file Social History Narrative Not on file Social Drivers of Health Financial Resource Strain: High Risk (11/10/2023) Overall Financial Resource Strain (CARDIA) Difficulty of Paying Living Expenses: Very hard Food Insecurity: No Food Insecurity (09/01/2024) Received from [facility] Hunger Screening Within the past 12 months we worried whether our food would run out before we got money to buy more.: Never True Within the past 12 months the food we bought just didn't last and we didn't have money to get more.: Never True Transportation Needs: No Transportation Needs (03/11/2024) PRAPARE - Transportation Lack of Transportation (Medical): No Lack of Transportation (Non-Medical): No Physical Activity: Not on file Stress: Not on file Social Connections: Not on file Intimate Partner Violence: Not on file Housing Stability: Low Risk (03/11/2024) Housing Stability Vital Sign Unable to Pay for Housing in the Last Year: No Number of Times Moved in the Last Year: 0 Homeless in the Last Year: No Family History Problem Relation Age of Onset Alcohol Abuse Mother Depression Mother Diabetes Mother Alcohol Abuse Father Depression Father Gout Maternal Grandmother Heart Attack Maternal Grandmother Cancer Paternal Grandmother Depression Sister Heart Attack Maternal Aunt Mental Retardation Paternal Aunt Allergies Allergen Reactions Latex Rash 5ht3 Receptor Antagonists Other reaction(s): Other: See Comments It knocks me out. Brompheniramine-Pseudoeph crying for 12 solid hours-per mom Carbinoxamine Other Reaction(s): Unknown Reaction Chlorpheniramine-Phenylephrine Duloxetine Other (See Comments) Eyes dilated; felt drugged Metformin And Related Hypotension Pseudoephedrine Other Reaction(s): Unknown Reaction Prior to Admission medications Medication Sig Start Date End Date Taking? Authorizing Provider progesterone (PROMETRIUM) 100 MG CAPS capsule Take 1 capsule by mouth nightly 09/08/24 Yes Dc Soria DO Handicap Placard MISC by Miscell. (Med.Supl.;Non-Drugs) route Good for 5 years. Expires 08/19/2029.09/08/24 Yes Dc Soria DO diazePAM (VALIUM) 5 MG tablet Take 1 tablet by mouth every 8 hours as needed for Anxiety or Sleep for up to 30 days. Max Daily Amount: 15 mg 08/18/24 09/17/24 Dc Soria DO gabapentin (NEURONTIN) 300 MG capsule Take 1 capsule by mouth at bedtime for 90 days. 07/30/24 10/28/24 Dc Soria DO potassium chloride (MICRO-K) 10 MEQ extended release capsule TAKE ONE CAPSULE BY MOUTH ONCE DAILY 07/03/24 Dc Soria DO levothyroxine (SYNTHROID) 125 MCG tablet TAKE ONE TABLET BY MOUTH ONCE DAILY 06/30/24 Rhona Soria DO [place]-3 Fatty Acids (FISH OIL) 1000 MG capsule TAKE ONE CAPSULE BY MOUTH ONCE DAILY 06/30/24 Dc Soria DO MAG64 64 MG TBEC extended release tablet TAKE ONE TABLET BY MOUTH ONCE DAILY (WITH THE VITAMIN D) 06/30/24 Dc Soria DO VITAMIN D3 125 MCG (5000 UT) CAPS capsule TAKE ONE CAPSULE BY MOUTH ONCE DAILY WITH FOOD 06/30/24 Dc Soria DO omeprazole (PRILOSEC) 40 MG delayed release capsule TAKE ONE CAPSULE BY MOUTH TWICE A DAY 06/30/24 Dc Soria DO buPROPion (WELLBUTRIN XL) 300 MG extended release tablet Take 1 tablet by mouth daily 06/03/24 Paula Randall MD liothyronine (CYTOMEL) 5 MCG tablet TAKE ONE TABLET BY MOUTH ONCE DAILY 05/29/24 Dc Soria DO propranolol (INDERAL LA) 120 MG extended release capsule Take 1 capsule by mouth daily 05/13/24 Dc Soria DO ondansetron (ZOFRAN-ODT) 4 MG disintegrating tablet TAKE 1 TABLET BY MOUTH EVERY 8 HOURS NEEDED FOR NAUSEA OR VOMITING 05/01/24 Dc Soria DO JANUVIA 100 MG tablet TAKE 1 TABLET BY MOUTH DAILY 04/03/24 Dc Soria DO GAMMAGARD 30 GM/300ML SOLN 08/24/23 Paula Randall MD Lancets (ONETOUCH DELICA PLUS [id number]) MISC 06/01/23 Paula Randall MD ONETOUCH ULTRA strip 06/01/23 Paula Randall MD Blood Glucose Monitoring Suppl (ONE TOUCH ULTRA 2) w/Device KIT 06/01/23 Paula Randall MD mirtazapine (REMERON) 15 MG tablet Take 1 tablet by mouth nightly Paula Randall MD midodrine (PROAMATINE) 5 MG tablet Take 1 tablet by mouth 3 times daily 06/04/23 Dc Soria DO sodium chloride 0.9 % infusion Infuse 200 mL/hr intravenously continuous 05/19/20 Paula Randall MD Objective Blood pressure 102/70, pulse 57, temperature 97.5 ??F (36.4 ??C), temperature source Temporal, height 1.575 m (5' 2 ), weight 80.3 kg (177 lb), SpO2 98%. Physical Exam Vitals reviewed. Constitutional: Appearance: Normal appearance. She is normal weight. HENT: Head: Normocephalic and atraumatic. Right Ear: Tympanic membrane normal. Left Ear: Tympanic membrane normal. Nose: Nose normal. Mouth/Throat: Mouth: Mucous membranes are moist. Eyes: Extraocular Movements: Extraocular movements intact. Conjunctiva/sclera: Conjunctivae normal. Pupils: Pupils are equal, round, and reactive to light. Cardiovascular: Rate and Rhythm: Normal rate and regular rhythm. Pulses: Normal pulses. Heart sounds: Normal heart sounds. Pulmonary: Effort: Pulmonary effort is normal. Breath sounds: Normal breath sounds. Abdominal: General: Abdomen is flat. Bowel sounds are normal. Palpations: Abdomen is soft. Musculoskeletal: General: Normal range of motion. Cervical back: Normal range of motion and neck supple. Skin: General: Skin is warm and dry. Neurological: General: No focal deficit present. Mental Status: She is alert. Psychiatric: Mood and Affect: Mood normal. Behavior: Behavior normal. Thought Content: Thought content normal. Judgment: Judgment normal. Results Labs - Urine free cortisol: 05/2024, Normal Assessment & Plan 1. Weight gain. - Weight gain is likely due to inability to increase metabolism or exercise, coupled with Neel's condition which inherently slows metabolism. - Blood work will be ordered to reassess hormone levels and ensure the effectiveness of supplementsand progesterone. - Discussed the impact of Neel's on metabolism and the difficulty in losing weight. - Recommended dietary adjustments to increase protein intake. 2. Gastroparesis. - Reports worsening symptoms of gastroparesis, including frequent vomiting and feeling full due to food sitting in her stomach. - Advised to follow up with GI doctor to discuss potential further interventions, including the possibility of another procedure to remove the remaining netting over the sphincter. - Discussed the previous POP procedure and the need for potential further surgical intervention. - Emphasized the importance of maintaining adequate nutrition despite gastroparesis symptoms. 3. Intussusception. - Intussusception has not resolved over many years. - Hesitant to see a surgeon due to concerns about ending up with a colostomy bag. - Referral to a surgeon will be made for further evaluation and discussion of potential treatment options. - Discussed the long-term nature of the condition and the potential need for surgical intervention. 4. Rash. - Rash on buttocks and back appears to have a vascular nature but does not resemble vasculitis. - Could be related to elevated cortisol levels. - Recheck of kidney and liver function will be conducted. - Reviewed pictures of the rash and discussed its intermittent nature and possible causes. 5. Depression. - Reports worsening depression with increased crying episodes. - Currently on Wellbutrin and has been taken off BuSpar. - No changes to current medication regimen were made. - Discussed the emotional impact and potential need for further mental health support. 6. Anxiety. - Experiences significant anxiety that leads to neurological symptoms, including paralysis of legs during anxiety attacks. - Advised to take a break from current activities to reduce stress and anxiety levels. - Discussed the neurological impact of anxiety and the importance of stress management. - Neurology is concerned and recommended taking a break to alleviate symptoms. 7. Medication management. - Requested a refill for progesterone, which will be provided. - Discussed the positive impact of progesterone on reducing hot flashes and improving mood. - Reviewed the use of DHEA and zinc supplements to boost testosterone levels. - Emphasized the importance of continuing current hormone therapy. 1. Rash and nonspecific skin eruption - C-Reactive Protein; Future - Sedimentation Rate; Future - Comprehensive Metabolic Panel; Future 2. Menopausal symptoms - progesterone (PROMETRIUM) 100 MG CAPS capsule; Take 1 capsule by mouth nightly, Disp-90 capsule, R-3Normal 3. Functional neurological symptom disorder with abnormal movement - Handicap Placard [facility]; Starting 09/08/2024, Disp-1 each, R-0, PrintGood for 5 years. Expires 08/19/2029. 4. 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 Hyperinsulinemia - Comprehensive Metabolic Panel; Future 6. Hormone imbalance - Testosterone, free, total; Future 7. Low serum adrenocorticotrophic hormone (ACTH) - Cortisol Total; Future - Cortisol, Urine, Free; Future 8. Elevated morning serum cortisol level - Cortisol Total; Future - Cortisol, Urine, Free; Future Return in about 3 months (around 12/09/2024). The patient (or guardian, if applicable) and other individuals in attendance with the patient were advised that Artificial Intelligence will be utilized during this visit to record, process the conversation to generate a clinical note and to support improvement of the AI technology. The patient (orguardian, if applicable) and other individuals in attendance at the appointment consented to the use of AI, including the recording. An electronic signature was used to authenticate this note. --DC SORIA DO documented in this encounter Plan of Treatment Upcoming Encounters Date Type Department Care Team (Late st Contact Info) Description 12/09/2024 2:00 PM EDT Office Visit 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 Expected: 09/08/2024, Expires: 09/08/2025 Testosterone, free, total Lab Routine Hormone imbalance Expected: 09/08/2024, Expires: 09/08/2025 C-Reactive Protein Lab Routine Rash and nonspecific skin eruption Expected: 09/08/2024, Expires: 09/08/2025 Sedimentation Rate Lab Routine Rash and nonspecific skin eruption Expected: 09/08/2024, Expires: 09/08/2025 Cortisol Total Lab Routine Low serum adrenocorticotrophic hormone (ACTH) Elevated morning serum cortisol level Expected: 09/08/2024, Expires: 09/08/2025 Cortisol, Urine, Free Lab Routine Low serum adrenocorticotrophic hormone (ACTH) Elevated morning serum cortisol level Expected: 09/08/2024, Expires: 09/08/2025 Comprehensive Metabolic Panel Lab Routine Rash and nonspecific skin eruption Hyperinsulinemia Expected: 09/08/2024, Expires: 09/08/2025 documented as of this encounter Visit Diagnoses Diagnosis Rash and nonspecific skin eruption- Primary Rash and other nonspecific skin eruption Menopausal symptoms Symptomatic menopausal or female climacteric states 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
--- OUTSIDE RECORDS SUMMARY | 2024-09-15 15:42 | XMS_ITS | Encounter Summary ---
Author Organization [facility] Address [address] [place], [place] [id number] Care Team Providers Care Label Rewinder Name Role Phone Dc Banks Primary Care Provider [phone] Kathryn Gutierrez RN Unavailable Unavaila ble Source Comments In the event this information is protected by the Federal Confidentiality of Alcohol and Drug AbusePatient Records regulations: The Federal rules restrict any use of the information to criminally investigate or prosecute any alcohol or drug abuse patient.[facility] Encounter Details Date Type Department Care Team (Late st Contact Info) Description 06/27/2022 Get Medical Advice Allergy [address]48 [place] [address] Carlos Kiser MD, PhD [address] [place], [place] [phone] New IVIG Social History Tobacco Use Types [...] lower risk 4 06/27/2022 Data from: https://www.neighborhoodatlas.medicine.[facility]/. Last address used for [...] Department Care Team (Latest Contact Info) Description 09/17/2024 1:30 PM EDT Office Visit Integrative Medicine [address] [place], [place] [phone] Daren Munson DC [address]00 [place] [address] Visit 8 of - Medicaid 10/02/2024 3:15 PM EDT OT/PT/Speech Visit [facility] Physical Therapy [address] [place] [address] Claribel Katz, PT [address] [place] [address] Functional neurological symptom disorder with mixed symptoms [F44.7] 10/14/2024 4:00 PM EDT [facility] Neurological Cheondoism 9[address] [place] [address] Sylwia Mathis PA-C 9500 [place] [address] I apologize I missed our last visit. I l l explain 11/13/2024 10:30 AM EDT [facility] Allergy [address] [address] Carlos Kiser MD, PhD [address]00 [place] [address] CVID 11/20/2024 12:00 PM EDT Procedure Cardiology [address] [place] [address] VELAZQUEZ CX/SHREE LIST. 11/20/2024 12:45 PM EDT Office Visit Cardiology [address] [place] [address] Liu Rowe MD [address] [place] [address] VELAZQUEZ CX/SHREE LIST. documented as of this encounter Visit Diagnoses Not on filedocumented in this encounter Care Teams Label Rewinder Relationship Specialty Start Date End Date Dc Banks DO PCP - General Family Medicine 08/03/10 Kathryn Gutierrez, RN [address] [place] [address] Specialty Abrasive Grinder Hematology 04/03/22 documented as of this encounter
--- OUTSIDE RECORDS SUMMARY | 2024-09-15 15:42 | XMS_ITS | Encounter Summary ---
Author Organization [facility] Address [address] [place] [address] Care Team Providers Care Mobile Heavy Equipment Mechanic Name Role Phone Dc Banks Primary Care Provider [phone] Kathryn Gutierrez RN Unavailable Unavaila ble Source Comments In the event this information is protected by the Federal Confidentiality of Alcohol and Drug AbusePatient Records regulations: The Federal rules restrict any use of the information to criminally investigate or prosecute any alcohol or drug abuse patient.[facility] Encounter Details Date Type Department Care Team (Late st Contact Info) Description 07/03/2022 Patient Msg Neurology [address] [place], [place] [phone] Provider, Ccf Admission Social History Tobacco Use Types Packs/Day Years [...] risk 4 06/27/2022 Data from: https://www.neighborhoodatlas.medicine.[facility]/. Last address used for calculation [address] 06/27/2022 Comments No Sex and Gender [...] suspected to have Coronavirus/COVID-19? No / Unsure 07/03/2022 7:56 AM EDT documented as of this encounter [...] Office Visit Integrative Medicine [address] [place] [address] Daren Munson DC [address]00 [place] [address] Visit 8 - Medicaid 10/02/2024 3:15 PM EDT OT/PT/Speech Visit [facility] Physical Therapy [address] [place] [address] Claribel Katz, PT [address] [place] [address] Functional neurological symptom disorder with mixed symptoms [F44.7] 10/14/2024 4:00 PM EDT [facility] Neurological Hinduism [address] [place] [address] Sylwia Mathis PA-C 9500 [place] [address] I apologize I missed our last visit. I l l explain 11/13/2024 10:30 AM EDT [facility] Allergy [address] [address] Carlos Kiser MD, PhD [address]00 [place] [address] CVID 11/20/2024 12:00 PM EDT Procedure Cardiology 9[address] [place] [address] VELAZQUEZ CX/SHREE LIST. 11/20/2024 12:45 PM EDT Office Visit Cardiology 9300 [place] [address] Liu Rowe MD [address] [place] [address] VELAZQUEZ CX/SHREE LIST. documented as of this encounter Visit Diagnoses Not on filedocumented in this encounter Care Teams Mobile Heavy Equipment Mechanic Relationship Specialty Start Date End Date Dc Banks DO PCP - General Family Medicine 08/03/10 Kathryn Gutierrez, RN 9500 [facility] [address] [place] [address] Specialty Benefit Specialist Hematology 04/03/22 documented as of this encounter
--- OUTSIDE RECORDS SUMMARY | 2024-09-15 15:43 | XMS_ITS | Encounter Summary ---
Author Organization [facility] Address [address] [place] [address] Care Team Providers Care Lard Maker Name Role Phone Dc Banks Primary Care Provider [phone] Kathryn Gutierrez RN Unavailable Unavaila ble Source [...] Info) Description 02/07/2023 Get Medical Advice Neurological Anabaptist [address] [place] [phone] Brianna Mccann PSYD [address] [place] [phone] New medication Social History Tobacco Use Types [...] lower risk 4 06/27/2022 Data from: https://www.neighborhoodatlas.medicine.[facility].edu/. Last address used for calculation [...] Office Visit Integrative Medicine [address] [place] [address] Daren Munson DC [address] [place] [address] Visit 8 [facility] - Medicaid 10/02/2024 3:15 PM EDT OT/PT/Speech Visit [facility] Physical Therapy [address] [place] [address] KatzClaribel kenny, PT [address] [place] [address] Functional neurological symptom disorder with mixed symptoms [F44.7] 10/14/2024 4:00 PM EDT [facility] Neu[facility] Anabaptist [address] [place] [address] Sylwia Mathis PA-C [address] [place] [address] I apologize I missed our last visit. I l l explain 11/13/2024 10:30 AM EDT [facility] Allergy [address] [address] Carlos Kiser MD, PhD [address]00 [place] [address] CVID 11/20/2024 12:00 PM EDT Procedure Cardiology [address] [place] [address] VELAZQUEZ CX/SHREE LIST. 11/20/2024 12:45 PM EDT Office Visit Cardiology [address] [place] [address] Liu Rowe MD [address] [place] [address] VELAZQUEZ CX/SHREE LIST. documented as of this encounter Visit Diagnoses Not on filedocumented in this encounter Care Teams Lard Maker Relationship Specialty Start Date End Date Dc Banks DO PCP - General Family Medicine 08/03/10 Kathryn Gutierrez, RN 9500 [facility] [address] [place] [address] Specialty System Configuration Specialist Hematology 04/03/22 documented as of this encounter
--- OUTSIDE RECORDS SUMMARY | 2024-09-15 15:43 | XMS_ITS | Encounter Summary ---
Author Organization [facility] Address [address] [place], [place] [phone] Care Team Providers Care Retail Sales Teammate Name Role Phone Dc Banks Primary Care Provider [phone] Kathryn Gutierrez RN Unavailable Unavaila ble Source Comments In the event this information is protected by the Federal Confidentiality of Alcohol and Drug AbusePatient Records regulations: The Federal rules restrict any use of the information to criminally investigate or prosecute any alcohol or drug abuse patient.[facility] Encounter Details Date Type Department Care Team (Late st Contact Info) Description 03/16/2023 Get Medical Advice Rheumatology 20[address] [place] [address] Carlos Kiser MD, PhD [address] [place], [place] [phone] Recent ER visit Social History Tobacco Use [...] risk 4 06/27/2022 Data from: https://www.neighborhoodatlas.medicine.[facility].edu/. Last address used for calculation [...] Office Visit Integrative Medicine [address] [place] [address] Daren Munson DC [address] [place] [address] Visit 8 - Medicaid 10/02/2024 3:15 PM EDT OT/PT/Speech Visit [facility] Physical Therapy [address] [place] [address] Claribel Katz, PT [address] [place] [address] Functional neurological symptom disorder with mixed symptoms [F44.7] 10/14/2024 4:00 PM EDT [facility] Neurological Voodoo [address] [place] [address] Sylwia Mathis PA-C [address]00 [place] [address] I apologize I missed our last visit. I l l explain 11/13/2024 10:30 AM EDT [facility] Allergy [address] [address] Carlos Kiser MD, PhD [address] [place] [address] CVID 11/20/2024 12:00 PM EDT Procedure Cardiology [address] [place] [address] VELAZQUEZ CX/SHREE LIST. 11/20/2024 12:45 PM EDT Office Visit Cardiology [address] [place] [address] Liu Rowe MD [address] [place] [address] VELAZQUEZ CX/SHREE LIST. documented as of this encounter Visit Diagnoses Not on filedocumented in this encounter Care Teams Retail Sales Teammate Relationship Specialty Start Date End Date Dc Banks DO PCP - General Family Medicine 08/03/10 Kathryn Gutierrez, ARMANI 9500 [facility] [address] [place] [address] Specialty Coal Getter Hematology 04/03/22 documented as of this encounter
--- OUTSIDE RECORDS SUMMARY | 2024-09-15 15:43 | XMS_ITS | Encounter Summary ---
Author Organization [facility] Address [address] [place] [address] Care Team Providers Care Basting Puller Name Role Phone Dc Banks Primary Care Provider [phone] Kathryn Gutierrez RN Unavailable Unavaila ble Source Comments In the event this information is protected by the Federal Confidentiality of Alcohol and Drug AbusePatient Records regulations: The Federal rules restrict any use of the information to criminally investigate or prosecute any alcohol or drug abuse patient.[facility] Encounter Details Date Type Department Care Team (Late st Contact Info) Description 03/29/2022 Patient Msg Neurology [address] [place], [place] [phone] Provider, Ccf Sleep Study Confirmation Social History [...] N ot on file 03/04/2022 Data from: https://www.neighborhoodatlas.[facility]/. Last address used for calculation [address] 03/04/2022 Comments No Sex and Gender Information [...] Office Visit Integrative Medicine [address] [place] [address] Daren Munson DC [address] [place] [address] Visit 8 of - Medicaid 10/02/2024 3:15 PM EDT OT/PT/Speech Visit [facility] Physical Therapy [address] [place], [place] [address] Claribel Katz, PT [address] [place] [address] Functional neurological symptom disorder with mixed symptoms [F44.7] 10/14/2024 4:00 PM EDT [facility] [address] [place] [address] Sylwia Mathis PA-C 9500 [place] [address] I apologize I missed our last visit. I l l explain 11/13/2024 10:30 AM EDT [facility] Allergy [address] [address] Carlos Kiser MD, PhD [address]00 [place] [address] CVID 11/20/2024 12:00 PM EDT Procedure Cardiology 9[address] [place] [address] VELAZQUEZ CX/SHREE LIST. 11/20/2024 12:45 PM EDT Office Visit Cardiology 9300 [place] [address] Liu Rowe MD [address] [place] [address] VELAZQUEZ CX/SHREE LIST. documented as of this encounter Visit Diagnoses Not on filedocumented in this encounter Care Teams Basting Puller Relationship Specialty Start Date End Date Dc Banks DO PCP - General Family Medicine 08/03/10 Kathryn Gutierrez, RN 9500 [facility] [place] [address] Specialty Conservation Officer Hematology 04/03/22 documented as of this encounter
--- OUTSIDE RECORDS SUMMARY | 2024-09-15 15:43 | XMS_ITS | Encounter Summary ---
Author Organization [facility] Address [address] [place] [address] Care Team Providers Care Meat Processor Name Role Phone Dc Banks Primary Care Provider [phone] Kathryn Gutierrez RN Unavailable Unavaila ble Source [...] Contact Info) Description 04/13/2022 Patient Msg Gastroenterology [address] [facility] [address] [phone] Provider, Ccf EGG Instructions Social History Tobacco [...] N ot on file 03/04/2022 Data from: https://www.neighborhoodatlas.[facility]/. Last address used for calculation [address] [...] Assessment Author No 01/31/2022 5:40 PM Karishma Gomse RN * Do you have serious difficulty [...] Office Visit Integrative Medicine [address] [place] [address] Daren Munson DC [address] [place] [address] Visit 8 - Medicaid 10/02/2024 3:15 PM EDT OT/PT/Speech Visit [facility] Physical Therapy [address] [place] [address] Claribel Katz, PT [address] [place] [address] Functional neurological symptom disorder with mixed symptoms [F44.7] 10/14/2024 4:00 PM EDT [facility] Neurological Scientology 9[address] [place] [address] Sylwia Mathis PA-C 9500 [place] [address] I apologize I missed our last visit. I l l explain 11/13/2024 10:30 AM EDT [facility] All[facility] [address] [address] Carlos Kiser MD, PhD [address]00 [place] [address] CVID 11/20/2024 12:00 PM EDT Procedure Cardiology [address] [place] [address] VELAZQUEZ CX/SHREE LIST. 11/20/2024 12:45 PM EDT Office Visit Cardiology [address] [place] [address] Liu Rowe MD [address]00 [place] [address] VELAZQUEZ CX/SHREE LIST. documented as of this encounter Visit Diagnoses Not on filedocumented in this encounter Care Teams Meat Processor Relationship Specialty Start Date End Date Dc Banks DO PCP - General Family Medicine 08/03/10 Kathryn Gutierrez, RN 9500 [facility] [address] [place] [address] Specialty Makeup Sales Advisor Hematology 04/03/22 documented as of this encounter
--- OUTSIDE RECORDS SUMMARY | 2024-09-15 15:43 | XMS_ITS | Clinical Summary ---
Author Organization [facility] Address [id number] [address] [place] [address] Care Team Providers Care Section Beamer Name Role Phone Dc Banks DO Primary Care Provider [phone] Allergies Active Allergy Reactions Criticality Noted Date [...] 10/20/2024 Medical Devices Not on file [place] [address] MEDICAID Care Teams Section Beamer Relationship Specialty Start Date End Date Dc Banks DO PCP - General 09/18/16
--- OUTSIDE RECORDS SUMMARY | 2024-09-15 15:43 | XMS_ITS | Encounter Summary ---
Author Organization [facility] Address [facility] [place] [address] Care Team Providers Care Rubber Compounder Mixer Name Role Phone Dc Banks Primary Care Provider [phone] Kathryn Gutierrez RN Unavailable Unavaila ble Source Comments In the event this information is protected by the Federal Confidentiality of Alcohol and Drug AbusePatient Records regulations: The Federal rules restrict any use of the information to criminally investigate or prosecute any alcohol or drug abuse patient.[facility] Encounter Details Date Type Department Care Team (Late st Contact Info) Description 03/29/2023 Patient Msg Neurological Episcopal [address] [place] [phone] Neha Pedroza LISW [address] [place] [address] Counseling referrals Social History Tobacco [...] risk 4 06/27/2022 Data from: https://www.neighborhoodatlas.medicine.[facility]/. Last address used for calculation [address] [...] Office Visit Integrative Medicine [address] [place] [address] Daren Munson DC [address] [place] [address] Visit 8 [facility] - Medicaid 10/02/2024 3:15 PM EDT OT/PT/Speech Visit [facility] Physical Therapy [address] [place] [address] KatzClaribel kenny, PT [address] [place] [address] Functional neurological symptom disorder with mixed symptoms [F44.7] 10/14/2024 4:00 PM EDT [facility] [address] [place] [address] Sylwia Mathis PA-C [address]00 [place] [address] I apologize I missed our last visit. I l l explain 11/13/2024 10:30 AM EDT [facility] Allergy [address] [address] Carlos Kiser MD, PhD [address] [place] [address] CVID 11/20/2024 12:00 PM EDT Procedure Cardiology [address] [place] [address] VELAZQUEZ CX/SHREE LIST. 11/20/2024 12:45 PM EDT Office Visit Cardiology [address] [place] [address] Liu Rowe MD [address] [place] [address] VELAZQUEZ CX/SHREE LIST. documented as of this encounter Visit Diagnoses Not on filedocumented in this encounter Care Teams Rubber Compounder Mixer Relationship Specialty Start Date End Date Dc Banks DO PCP - General Family Medicine 08/03/10 Kathryn Gutierrez, RN 9500 [facility] [address] [place] [address] Specialty Actuary Hematology 04/03/22 documented as of this encounter
--- OUTSIDE RECORDS SUMMARY | 2024-09-15 15:43 | XMS_ITS | Encounter Summary ---
Author Organization [facility] Address [address] [place] [id number] Care Team Providers Care Regional Planner Name Role Phone Dc Banks Primary Care Provider [phone] Kathryn Gutierrez RN Unavailable Unavaila ble Source [...] Description 01/22/2023 Patient Msg Psychiatry [address] [place] [address] Veronica Costa MD Treatment plan from today's [...] is lower risk 4 06/27/2022 Data from: https://www.neighborhoodatlas.medicine.[facility]/. Last address used for calculation [address] [...] Office Visit Integrative Medicine [address] [place] [address] Daren Munson DC [address] [place] [address] Visit 8 [facility] - Medicaid 10/02/2024 3:15 PM EDT OT/PT/Speech Visit [facility] Physical Therapy [address] [place] [address] KatzClaribel kenny, PT [address] [place] [address] Functional neurological symptom disorder with mixed symptoms [F44.7] 10/14/2024 4:00 PM EDT [facility] [address] [place] [address] Sylwia Mathis PA-C [address] [place] [address] I apologize I missed our last visit. I l l explain 11/13/2024 10:30 AM EDT [facility] [address] [address] Carlos Kiser MD, PhD [address] [place] [address] CVID 11/20/2024 12:00 PM EDT Procedure Cardiology [address] [place] [address] VELAZQUEZ CX/SHREE LIST. 11/20/2024 12:45 PM EDT Office Visit Cardiology [address] [place] [address] Liu Rowe MD [address] [place] [address] VELAZQUEZ CX/SHREE LIST. documented as of this encounter Visit Diagnoses Not on filedocumented in this encounter Care Teams Regional Planner Relationship Specialty Start Date End Date Dc Banks DO PCP - General Family Medicine 08/03/10 Kathryn Gutierrez, RN 9500 [facility] [address] [place] [address] Specialty Lean Consultant Hematology 04/03/22 documented as of this encounter
--- OUTSIDE RECORDS SUMMARY | 2024-09-15 15:43 | XMS_ITS | Encounter Summary ---
Author Organization [facility] Address [address] [place] [address] Care Team Providers Care Fence Rider Name Role Phone Dc Banks Primary Care Provider [phone] Ktahryn Gutierrez RN Unavailable Unavaila ble Source Comments In the event this information is protected by the Federal Confidentiality of Alcohol and Drug AbusePatient Records regulations: The Federal rules restrict any use of the information to criminally investigate or prosecute any alcohol or drug abuse patient.[facility] Encounter Details Date Type Department Care Team (Late st Contact Info) Description 04/26/2023 Patient Msg Psychiatry [address] [place] [address] Veronica Costa MD Treatment plan from today's [...] lower risk 4 06/27/2022 Data from: https://www.neighborhoodatlas.medicine.[facility]/. Last address used for [...] Office Visit Integrative Medicine [address] [place] [address] Daren Munson DC [address] [place] [address] Visit 8 [facility] - Medicaid 10/02/2024 3:15 PM EDT OT/PT/Speech Visit [facility] Physical Therapy [address] [place] [address] KatzClaribel kenny, PT [address] [place] [address] Functional neurological symptom disorder with mixed symptoms [F44.7] 10/14/2024 4:00 PM EDT [facility] [address] [place] [address] Sylwia Mathis PA-C [address] [place] [address] I apologize I missed our last visit. I l l explain 11/13/2024 10:30 AM EDT [facility] [address] [address] Carlos Kiser MD, PhD [address] [place] [address] CVID 11/20/2024 12:00 PM EDT Procedure Cardiology [address] [place] [address] VELAZQUEZ CX/SHREE LIST. 11/20/2024 12:45 PM EDT Office Visit Cardiology [address] [place] [address] Liu Rowe MD [address] [place] [address] VELAZQUEZ CX/SHREE LIST. documented as of this encounter Visit Diagnoses Not on filedocumented in this encounter Care Teams Fence Rider Relationship Specialty Start Date End Date Dc Banks DO PCP - General Family Medicine 08/03/10 Kathryn Gutierrez, RN [address]00 [facility] [address] [place] [address] Specialty Associate Brand Manager Hematology 04/03/22 documented as of this encounter
--- OUTSIDE RECORDS SUMMARY | 2024-09-15 15:43 | XMS_ITS | Clinical Summary ---
Author Organization [facility] Address [address] [place] [address], [address] [place] [address] Care Team Providers Care Collective Bargaining Specialist Name Role Phone DarrenDc Primary Care Provider [phone] Allergies Active Allergy Reactions Criticality Noted Date [...] continuous 021 Active Lancets (ONETOUCH DELICA PLUS [id number]) MISC 024 Active ONETOUCH ULTRA strip 024 [...] BY MOUTH ONCE DAILY 30 tablet Active Baisden-3 Fatty Acids (FISH OIL) 1000 MG capsule [...] Description 09/08/2024 2:30 PM EDT Office Visit [address] [place] [address] Dc Banks, Rash and nonspecific skin eruption (Primary Dx); Menopausal symptoms; Functional neurological symptom disorder with abnormal movement; 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; Hyperinsulinemia; Hormone imbalance; Low serum adrenocorticotrophic hormone (ACTH); Elevated morning serum cortisol level 08/18/[address] [place] [address] Dc Banks, DO Medication Refill 07/30/[address] [place] [address] Dc Banks, Medication Refill 07/21/[address] [address] Dc Banks DO Medication Refill 07/02/[address] [address] Dc Banks DO Medication Refill 06/30/[address] [place] [address] Dc Banks, Medication Refill 06/23/[address] [address] Dc Banks, Medication Refill 06/19/2024 Results Follow-Up [address] [address] Dc Banks DO 06/18/2024 Orders Only [address] [address] Dc Banks DO 06/16/2024 Orders Only [address] [address] Dc Banks, from Last 3 Months Immunizations [...] drink = 0.6 oz pur e alcohol) [facility] Utilities Answer Date Recorded In the past [...] place to sleep or slept in a halfway (including now)? No 10/16/2022 Housing Stability Vital Sign Answer Zen e Recorded In the last 12 months, was t here a time when you were not able to pay the mortgage or rent on time? No 03/11/2024 In the past 12 months, how m any times have you moved where you were living? 0 03/11/2024 At any time in the past 12 m [facility], were you homeless or living in a halfway (including now)? No 03/11/2024 Food Insecurity Answer [...] Description 12/09/2024 2:00 PM EDT Office Visit [facility] Primary Care [address] [place] [address] Dc Banks DO [address] [place] [address] 3 month fu Health Maintenance Due Date [...] on patient's age to complete this topic Insurance [employer] Care Teams Collective Bargaining Specialist Relationship Specialty Start Date End Date Dc Banks DO [address] [place] [id number] PCP - General Family Medicine 09/21/22
--- OUTSIDE RECORDS SUMMARY | 2024-09-15 15:43 | XMS_ITS | Encounter Summary ---
Author Organization [facility] Address [address] [place] [address] Care Team Providers Care Director Of Primary Care Name Role Phone Dc Banks Primary Care Provider [phone] Kathryn Gutierrez RN Unavailable Unavaila ble Source Comments In the event this information is protected by the Federal Confidentiality of Alcohol and Drug AbusePatient Records regulations: The Federal rules restrict any use of the information to criminally investigate or prosecute any alcohol or drug abuse patient.[facility] Encounter Details Date Type Department Care Team (Late st Contact Info) Description 05/12/2022 Patient Msg Gastroenterology [address] [facility] [address] [phone] Provider, Ccf re: Smart Pill. Social History [...] N ot on file 03/04/2022 Data from: https://www.neighborhoodatlas.[facility]/. Last address used for calculation [address] 03/04/2022 Comments No Sex and Gender [...] Office Visit Integrative Medicine [address] [place] [address] Daren Munson DC [address] [place] [address] Visit 8 of - Medicaid 10/02/2024 3:15 PM EDT OT/PT/Speech Visit [facility] Physical Therapy [address] [place], [place] [address] Claribel Ktaz, PT [address] [place] [address] Functional neurological symptom disorder with mixed symptoms [F44.7] 10/14/2024 4:00 PM EDT [facility] [address] [place] [address] Sylwia Mathis PA-C [address] [place] [address] I apologize I missed our last visit. I l l explain 11/13/2024 10:30 AM EDT [facility] [address] [address] Carlos Kiser MD, PhD [address] [place] [address] CVID 11/20/2024 12:00 PM EDT Procedure Cardiology [address] [place] [address] VELAZQUEZ CX/SHREE LIST. 11/20/2024 12:45 PM EDT Office Visit Cardiology [address] [place] [address] Liu Rowe MD [address] [place] [address] VELAZQUEZ CX/SHREE LIST. documented as of this encounter Visit Diagnoses Not on filedocumented in this encounter Care Teams Director Of Primary Care Relationship Specialty Start Date End Date Dc Banks DO PCP - General Family Medicine 08/03/10 Kathryn Gutierrez, ARMANI 9500 [facility] [address] [place] [address] Specialty Agency Appointments Supervisor Hematology 04/03/22 documented as of this encounter
--- OUTSIDE RECORDS SUMMARY | 2024-09-15 15:43 | XMS_ITS | Encounter Summary ---
Author Organization [facility] Address [address] [place] [address] Care Team Providers Care Community Resource Officer Name Role Phone Dc Banks Primary Care Provider [phone] Kathryn Gutierrez RN Unavailable Unavaila ble Source Comments In the event this information is protected by the Federal Confidentiality of Alcohol and Drug AbusePatient Records regulations: The Federal rules restrict any use of the information to criminally investigate or prosecute any alcohol or drug abuse patient.[facility] Encounter Details Date Type Department Care Team (Late st Contact Info) Description 06/11/2015 Patient Msg Medical Records [address] [place] [address] Provider, Ccf Your Muriel Medical Procedure Social [...] Integrative Medicine [address] [place] [address] Daren Munson DC [address] [place] [address] Visit 8 of 15 - Medicaid 10/02/2024 3:15 PM EDT OT/PT/Speech Visit [facility] Physical Therapy [address] [place] [address] Claribel Katz, PT [address] [place] [address] Functional neurological symptom disorder with mixed symptoms [F44.7] 10/14/2024 4:00 PM EDT [facility] [address] [place] [address] Sylwia Mathis PA-C [address] [place], [place] [id number] I apologize I missed our last visit. I l l explain 11/13/2024 10:30 AM EDT [facility] [address] [address] Carlos Kiser MD, PhD [address] [place], [place] [address] CVID 11/20/2024 12:00 PM EDT Procedure Cardiology [address] [place] [address] VELAZQUEZ CX/SHREE LIST. 11/20/2024 12:45 PM EDT Office Visit Cardiology [address] [place], [place] 9[address] Liu Rowe MD [address] [place], [place] [phone] PER DR VELAZQUEZ CX/SHREE LIST. documented as of this encounter Visit Diagnoses Not on filedocumented in this encounter Additional Health Concerns Infection Onset Date Last Indicated Resolved Time COVID-19 Rule-Out 01/26/2022 01/26/2022 01/26/2022 8:17 PM EST documented as of this encounter Care Teams Community Resource Officer Relationship Specialty Start Date End Date Dc Banks DO PCP - General Family Medicine 08/03/10 Kathryn Gutierrez, ARMANI 9500 [facility] [address] [place] [address] Specialty Locomotive Mechanic Apprentice Hematology 04/03/22 documented as of this encounter
--- OUTSIDE RECORDS SUMMARY | 2024-09-15 15:43 | XMS_ITS | Encounter Summary ---
Author Organization [facility] Address [address] [place] [address] Care Team Providers Care Associate Account Executive Name Role Phone Dc Banks Primary Care Provider [phone] Kathryn Gutierrez RN Unavailable Unavaila ble Source Comments In the event this information is protected by the Federal Confidentiality of Alcohol and Drug AbusePatient Records regulations: The Federal rules restrict any use of the information to criminally investigate or prosecute any alcohol or drug abuse patient.[facility] Encounter Details Date Type Department Care Team (Late st Contact Info) Description 02/03/2022 Patient Msg Gastroenterology [address] [facility] [address] [phone] Provider, Ccf EGG Instructions Social History Tobacco [...] N ot on file 08/08/2021 Data from: https://www.neighborhoodatlas.[facility]/. Last address used for calculation [address] [...] Office Visit Integrative Medicine [address] [place] [address] Daren Munson DC [address] [place] [address] Visit 8 - Medicaid 10/02/2024 3:15 PM EDT OT/PT/Speech Visit [facility] Physical Therapy [address] [place] [place] [address] Claribel Katz, PT [address] [place] [address] Functional neurological symptom disorder with mixed symptoms [F44.7] 10/14/2024 4:00 PM EDT [facility] [address] [place] [address] Sylwia Mathis PA-C [address] [place] [address] I apologize I missed our last visit. I l l explain 11/13/2024 10:30 AM EDT [facility] [address] [address] Carlos Kiser MD, PhD [address] [place] [address] CVID 11/20/2024 12:00 PM EDT Procedure Cardiology [address] [place] [address] VELAZQUEZ CX/SHREE LIST. 11/20/2024 12:45 PM EDT Office Visit Cardiology [address] [place] [address] Liu Rowe MD [address] [place] [address] VELAZQUEZ CX/SHREE LIST. documented as of this encounter Visit Diagnoses Not on filedocumented in this encounter Care Teams Associate Account Executive Relationship Specialty Start Date End Date Dc Banks DO PCP - General Family Medicine 08/03/10 Kathryn Gutierrez, RN 9500 [facility] [address] [place] [address] Specialty Train Caller Hematology 04/03/22 documented as of this encounter
--- OUTSIDE RECORDS SUMMARY | 2024-09-15 15:43 | XMS_ITS | Encounter Summary ---
Author Organization [facility] Address [address] [place] [address] Care Team Providers Care Credit Card Specialist Name Role Phone Dc Banks Primary Care [...] Contact Info) Description 02/14/2022 Patient Msg Hematology/Oncology [address] [phone] [place] [address] [place] [address] Request an Appointment Social History Tobacco Use [...] N ot on file 08/08/2021 Data from: https://www.neighborhoodatlas.medicine.[facility].edu/. Last address used for calculation [address] [...] EDT Office Visit Integrative Medicine [address] [place] [address] Daren Munson DC [address] [place] [address] Visit 8 of - Medicaid 10/02/2024 3:15 PM EDT OT/PT/Speech Visit [facility] Physical Therapy [address] [place] [address] Claribel Katz, PT [address] [place] [address] Functional neurological symptom disorder with mixed symptoms [F44.7] 10/14/2024 4:00 PM EDT [facility] [address] [place] [address] Sylwia Mathis PA-C [address] [place] [address] I apologize I missed our last visit. I l l explain 11/13/2024 10:30 AM EDT [facility] Allergy [address] [address] Carlos Kiser MD, PhD [address] [place] [address] CVID 11/20/2024 12:00 PM EDT Procedure Cardiology [address] [place] [id number] VELAZQUEZ CX/SHREE LIST. 11/20/2024 12:45 PM EDT Office Visit Cardiology [address] [place] [address] Liu Rowe MD [address] [place] [address] VELAZQUEZ CX/SHREE LIST. documented as of this encounter Visit Diagnoses Not on filedocumented in this encounter Care Teams Credit Card Specialist Relationship Specialty Start Date End Date Dc Banks DO PCP - General Family Medicine 08/03/10 Kathryn Gutierrez, RN [address] [place] [address] Specialty Legal Administrator Hematology 04/03/22 documented as of this encounter
--- OUTSIDE RECORDS SUMMARY | 2024-09-15 15:43 | XMS_ITS | Encounter Summary ---
Author Organization [facility] Address [address] [place] [address] Care Team Providers Care Retail Service Lead Merchandiser Name Role Phone Dc Banks Primary Care Provider [phone] Kathryn Gutierrez RN Unavailable Unavaila ble Source Comments In the event this information is protected by the Federal Confidentiality of Alcohol and Drug AbusePatient Records regulations: The Federal rules restrict any use of the information to criminally investigate or prosecute any alcohol or drug abuse patient.[facility] Encounter Details Date Type Department Care Team (Late st Contact Info) Description 04/08/2015 Patient Msg Medical Records [address] [place] [address] Provider, Ccf Your Muriel Medical Procedure Social [...] Office Visit Integrative Medicine [address] [place] [address] Daren Munson DC [address] [place] [address] Visit 8 of 15 - Medicaid 10/02/2024 3:15 PM EDT OT/PT/Speech Visit [facility] Physical Therapy [address] [place] [address] Claribel Katz, PT [address] [place] [address] Functional neurological symptom disorder with mixed symptoms [F44.7] 10/14/2024 4:00 PM EDT [facility] [address] [place] [address] Sylwia Mathis PA-C [address] [place] [address] I apologize I missed our last visit. I l l explain 11/13/2024 10:30 AM EDT [facility] [address] [address] Carlos Kiser MD, PhD [address] [place], [place] [id number] CVID 11/20/2024 12:00 PM EDT Procedure Cardiology [address] [place] [address] VELAZQUEZ CX/SHREE LIST. 11/20/2024 12:45 PM EDT Office Visit Cardiology [address] [place] [address] Liu Rowe MD [address] [place] [address] VELAZQUEZ CX/SHREE LIST. documented as of this encounter Visit Diagnoses Not on filedocumented in this encounter Additional Health Concerns Infection Onset Date Last Indicated Resolved Time COVID-19 Rule-Out 01/26/2022 01/26/2022 01/26/2022 8:17 PM EST documented as of this encounter Care Teams Retail Service Lead Merchandiser Relationship Specialty Start Date End Date Dc Banks DO PCP - General Family Medicine 08/03/10 Kathryn Gutierrez, ARMANI 9500 [facility] [address] [place] [address] Specialty Rubber Heel And Sole Press Tender Hematology 04/03/22 documented as of this encounter
--- OUTSIDE RECORDS SUMMARY | 2024-09-15 15:43 | XMS_ITS | Encounter Summary ---
Author Organization [facility] Address [address] [place] [address] Care Team Providers Care Wig Dresser Name Role Phone Dc Banks Primary Care Provider [phone] Kathryn Gutierrez RN Unavailable Unavaila ble Source Comments In the event this information is protected by the Federal Confidentiality of Alcohol and Drug AbusePatient Records regulations: The Federal rules restrict any use of the information to criminally investigate or prosecute any alcohol or drug abuse patient.[facility] Encounter Details Date Type Department Care Team (Late st Contact Info) Description 05/24/2022 Patient Msg Neurology [address] [place], [place] [phone] Provider, Ccf Please Call to Confirm Your [...] N ot on file 03/04/2022 Data from: https://www.neighborhoodatlas.medicine.[facility]/. Last address used for calculation [address] [...] Office Visit Integrative Medicine [address] [place] [address] Daren Munson DC [address] [place] [address] Visit 8 of - Medicaid 10/02/2024 3:15 PM EDT OT/PT/Speech Visit [facility] Physical Therapy [address] [place] [address] Claribel Katz, PT [address] [place] [address] Functional neurological symptom disorder with mixed symptoms [F44.7] 10/14/2024 4:00 PM EDT [facility] [address] [place] [address] Sylwia Mathis PA-C [address] [place] [address] I apologize I missed our last visit. I l l explain 11/13/2024 10:30 AM EDT [facility] [address] [address] Carlos Kiser MD, PhD [address] [place] [address] CVID 11/20/2024 12:00 PM EDT Procedure Cardiology [address] [place] [address] VELAZQUEZ CX/SHREE LIST. 11/20/2024 12:45 PM EDT Office Visit Cardiology [address] [place] [address] Liu Rowe MD [address] [place] [address] VELAZQUEZ CX/SHREE LIST. documented as of this encounter Visit Diagnoses Not on filedocumented in this encounter Care Teams Wig Dresser Relationship Specialty Start Date End Date Dc Banks DO PCP - General Family Medicine 08/03/10 Kathryn Gutierrez, RN 9500 [facility] [address] [place] [address] Specialty Mixer Crane Operator Hematology 04/03/22 documented as of this encounter
--- OUTSIDE RECORDS SUMMARY | 2024-09-15 15:43 | XMS_ITS | Encounter Summary ---
Author Organization [facility] Address [address] [place] [address] Care Team Providers Care Crop And Soil Technician Name Role Phone Dc Banks Primary Care Provider [phone] Kathryn Gutierrez RN Unavailable Unavaila ble Source Comments In the event this information is protected by the Federal Confidentiality of Alcohol and Drug AbusePatient Records regulations: The Federal rules restrict any use of the information to criminally investigate or prosecute any alcohol or drug abuse patient.[facility] Encounter Details Date Type Department Care Team (Late st Contact Info) Description 12/01/2022 GI Preprocedure Call [facility] [address] Gilber[place] [address] Social History Tobacco Use Types Packs/Day Years [...] risk 4 06/27/2022 Data from: https://www.neighborhoodatlas.medicine.[facility].edu/. Last address used for calculation [address] [...] Munson RN - 12/01/2022 1:20 PM EDT [facility] ENDOSCOPY PRE PROCEDURE CALL Yadira. I'm calling from [facility] endoscopy to provide you with the information for your surgery/procedure tomorrow. 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 What is the best number for your bus driver supervisor to be reached at tomorrow for updates? Your bus driver supervisor is allowed to wait here with you or they may drop you off and come back to pick you up. Patient instructed: Do not eat anything the morning of the procedure, including gum, hard candy andmints.Yes Patient instructed not bring any valuables, jewelry, or hernandez and wear comfortable clothing. Do not wear makeup, lotion, or finger hebrew. Yes Patient instructed: Please bring a list [...] given Any barriers to Patient learning (confusion? Electrician Master needed?): Patient/Patient Registered Clinical Dietitian responded appropriately on phone. Please complete your Pre-Check In paperwork in My Chart if applicable. If patient needs to reschedule please call: [phone] [facility] phone number: [phone] Type of instruction given: Verbal by telephone contact. documented in this encounter Plan of Treatment Upcoming Encounters Date Type Department Care Team (Latest Contact Info) Description 09/17/2024 1:30 PM EDT Office Visit Integrative Medicine [address] [place] [address] Daren Munson DC [address] [place] [address] Visit 8 of 15 - Medicaid 10/02/2024 3:15 PM EDT OT/PT/Speech Visit [facility] Physical Therapy [address] [place] [address] Claribel Katz, PT [address] [place] [address] Functional neurological symptom disorder with mixed symptoms [F44.7] 10/14/2024 4:00 PM EDT [facility] Health Neurological [facility] [address] [place] [address] Sylwia Mathis PA-C [address] [place] [address] I apologize I missed our last visit. I l l explain 11/13/2024 10:30 AM EDT [facility] Health Allergy [address] [address] Carlos Kiser MD, PhD [address] [place] [address] CVID 11/20/2024 12:00 PM EDT Procedure Cardiology [address] [place] [address] VELAZQUEZ CX/SHREE LIST. 11/20/2024 12:45 PM EDT Office Visit Cardiology [address] [place] [address] Liu Rowe MD [address] [place] [address] VELAZQUEZ CX/SHREE LIST. documented as of this encounter Visit Diagnoses Not on filedocumented in this encounter Care Teams Crop And Soil Technician Relationship Specialty Start Date End Date Dc Banks DO PCP - General Family Medicine 08/03/10 Kathryn Gutierrez, RN [address] [place] [place] [address] Specialty Belt Knife Feeder Hematology 04/03/22 documented as of this encounter
--- OUTSIDE RECORDS SUMMARY | 2024-09-15 15:43 | XMS_ITS | Encounter Summary ---
Author Organization [facility] Address [address] [place] [address] Care Team Providers Care Racebook Writer Name Role Phone Dc Banks Primary Care Provider Kathryn Gutierrez RN Unavailable Unavaila ble Source Comments In the event this information is protected by the Federal Confidentiality of Alcohol and Drug AbusePatient Records regulations: The Federal rules restrict any use of the information to criminally investigate or prosecute any alcohol or drug abuse patient.[facility] Encounter Details Date Type Department Care Team (Late st Contact Info) Description 05/16/2022 Patient Msg Neurology [address] [place], [place] [id number] Provider, Ccf Appointment Social History Tobacco Use [...] N ot on file 03/04/2022 Data from: https://www.[facility] arms hospitalatlas.medicine.[facility] healthcare[facility]/. Last address used for calculation [...] Office Visit Integrative Medicine [address] [place] [address] Daren Munson DC [address] [place] [address] Visit 8 of - Medicaid 10/02/2024 3:15 PM EDT OT/PT/Speech Visit [facility] Physical Therapy [address] [place], [place] [id number] Claribel Katz, PT [address] [place] [address] Functional neurological symptom disorder with mixed symptoms [F44.7] 10/14/2024 4:00 PM EDT [facility] [address] [place] [address] Sylwia Mathis PA-C [address] [place] [address] I apologize I missed our last visit. I l l explain 11/13/2024 10:30 AM EDT [facility] Allergy [address] [address] Carlos Kiser MD, PhD [address] [place] [address] CVID 11/20/2024 12:00 PM EDT Procedure Cardiology [address] [place] [address] VELAZQUEZ CX/SHREE LIST. 11/20/2024 12:45 PM EDT Office Visit Cardiology [address] [place] [address] Liu Rowe MD [address] [place] [address] VELAZQUEZ CX/SHREE LIST. documented as of this encounter Visit Diagnoses Not on filedocumented in this encounter Care Teams Racebook Writer Relationship Specialty Start Date End Date Dc Banks DO PCP - General Family Medicine 08/03/10 Kathryn Gutierrez, RN 9500 [facility] [place] [address] Specialty National Opelint Analyst Hematology 04/03/22 documented as of this encounter
--- OUTSIDE RECORDS SUMMARY | 2024-09-15 15:43 | XMS_ITS | Encounter Summary ---
Author Organization [facility] Address [address] [place] [address] Care Team Providers Care Animal Nutrition Consultant Name Role Phone Dc Banks Primary Care Provider [phone] Kathryn Gutierrez RN Unavailable Unavaila ble Source Comments In the event this information is protected by the Federal Confidentiality of Alcohol and Drug AbusePatient Records regulations: The Federal rules restrict any use of the information to criminally investigate or prosecute any alcohol or drug abuse patient.[facility] Encounter Details Date Type Department Care Team (Late st Contact Info) Description 04/24/2023 Patient Msg Rehab and Sports Therapy [address] [place], [place] [phone] Provider, [facility] Physical Therapy Authorization Social History [...] is lower risk 4 06/27/2022 Data from: https://www.neighborhoodatlas.[facility]/. Last address used for calculation [address] [...] Office Visit Integrative Medicine [address] [place] [address] Daren Munson DC [address] [place] [address] Visit 8 - Medicaid 10/02/2024 3:15 PM EDT OT/PT/Speech Visit [facility] Physical Therapy [address] [place], [place] [id number] Claribel Katz, PT [address] [place] [address] Functional neurological symptom disorder with mixed symptoms [F44.7] 10/14/2024 4:00 PM EDT [facility] Neurological [facility] [address] [place] [address] Sylwia Mathis PA-C [address] [place] [address] I apologize I missed our last visit. I l l explain 11/13/2024 10:30 AM EDT [facility] Allergy [address] [address] Carlos Kiser MD, PhD [address] [place] [address] CVID 11/20/2024 12:00 PM EDT Procedure Cardiology [address] [place] [address] VELAZQUEZ CX/SHREE LIST. 11/20/2024 12:45 PM EDT Office Visit Cardiology [address] [place] [address] Liu Rowe MD [address] [place] [address] VELAZQUEZ CX/SHREE LIST. documented as of this encounter Visit Diagnoses Not on filedocumented in this encounter Care Teams Animal Nutrition Consultant Relationship Specialty Start Date End Date Dc Banks DO PCP - General Family Medicine 08/03/10 Kathryn Gutierrez, ARMANI 9500 [facility] [address] [place] [address] Specialty Cash Processing Specialist Hematology 04/03/22 documented as of this encounter
--- OUTSIDE RECORDS SUMMARY | 2024-09-15 15:43 | XMS_ITS | Encounter Summary ---
Author Organization [facility] Address [address] [place] [address] Care Team Providers Care Aerial Survey Technician Name Role Phone Dc Banks Primary Care Provider [phone] Kathryn Gutierrez RN Unavailable Unavaila ble Source [...] Description 02/08/2023 Get Medical Advice Rheumatology [address] [place] [address] Carlos Kiser MD, PhD [address] [place], [place] [id number] Saline & premed Social History Tobacco Use [...] is lower risk 4 06/27/2022 Data from: https://www.neighborhoodatlas.medicine.[facility].edu/. Last address used for calculation [address] [...] Office Visit Integrative Medicine [address] [place] [address] Daren Munson DC [address] [place] [address] Visit 8 - Medicaid 10/02/2024 3:15 PM EDT OT/PT/Speech Visit [facility] Physical Therapy [address] [place] [address] Claribel Katz, PT [address] [place] [address] Functional neurological symptom disorder with mixed symptoms [F44.7] 10/14/2024 4:00 PM EDT [facility] Health Neurological [facility] [address] [place] [address] Sylwia Mathis PA-C [address] [place] [address] I apologize I missed our last visit. I l l explain 11/13/2024 10:30 AM EDT [facility] Health Allergy [address] [address] Carlos Kiser MD, PhD [address] [place] [address] CVID 11/20/2024 12:00 PM EDT Procedure Cardiology [address] [place] [address] VELAZQUEZ CX/SHREE LIST. 11/20/2024 12:45 PM EDT Office Visit Cardiology [address] [place] [address] Liu Rowe MD [address] [place] [address] VELAZQUEZ CX/SHREE LIST. documented as of this encounter Visit Diagnoses Not on filedocumented in this encounter Care Teams Aerial Survey Technician Relationship Specialty Start Date End Date Dc Banks DO PCP - General Family Medicine 08/03/10 Kathryn Gutierrez, ARMANI 9500 [facility] [address] [place] [address] Specialty Trade Promotion Analyst Hematology 04/03/22 documented as of this encounter
--- OUTSIDE RECORDS SUMMARY | 2024-09-15 15:43 | XMS_ITS | Encounter Summary ---
Author Organization [facility] Address [address] [place], [place] [address] Care Team Providers Care Consumer Studies Professor Name Role Phone Dc Banks Primary Care Provider [phone] Kathryn Gutierrez RN Unavailable Unavaila ble Source Comments In the event this information is protected by the Federal Confidentiality of Alcohol and Drug AbusePatient Records regulations: The Federal rules restrict any use of the information to criminally investigate or prosecute any alcohol or drug abuse patient.[facility] Encounter Details Date Type Department Care Team (Late st Contact Info) Description 01/09/2023 Get Medical Advice Rheumatology [address] [place] [address] Carlos Kiser MD, PhD [address] [place], [place] [phone] Dextrose Social History Tobacco Use Types Packs/Day [...] is lower risk 4 06/27/2022 Data from: https://www.neighborhoodatlas.medicine.[facility]/. Last address used for [...] Office Visit Integrative Medicine [address] [place] [address] Daren Munson DC [address] [place] [address] Visit 8 - Medicaid 10/02/2024 3:15 PM EDT OT/PT/Speech Visit [facility] Physical Therapy [address] [place] [address] Claribel Katz, PT [address] [place] [address] Functional neurological symptom disorder with mixed symptoms [F44.7] 10/14/2024 4:00 PM EDT [facility] [address] [place] [address] Sylwia Mathis PA-C [address] [place] [address] I apologize I missed our last visit. I l l explain 11/13/2024 10:30 AM EDT [facility] Health Allergy [address] [address] Carlos Kiser MD, PhD [address] [place] [address] CVID 11/20/2024 12:00 PM EDT Procedure Cardiology [address] [place] [address] VELAZQUEZ CX/SHREE LIST. 11/20/2024 12:45 PM EDT Office Visit Cardiology [address] [place] [address] Liu Rowe MD [address] [place] [address] VELAZQUEZ CX/SHREE LIST. documented as of this encounter Visit Diagnoses Not on filedocumented in this encounter Care Teams Consumer Studies Professor Relationship Specialty Start Date End Date Dc Banks DO PCP - General Family Medicine 08/03/10 Kathryn Gutierrez, RN 9500 [facility] [address] [place] [address] Specialty Front End Drupal Developer Hematology 04/03/22 documented as of this encounter
--- OUTSIDE RECORDS SUMMARY | 2024-09-15 15:43 | XMS_ITS | Encounter Summary ---
Author Organization [facility] Address [address] [place], [place] [phone] Care Team Providers Care Director Investor Relations Name Role Phone Dc Banks DO Primary Care Provider [phone] Kathryn Gutierrez RN Unavailable Unavaila ble Source Comments In the event this information is protected by the Federal Confidentiality of Alcohol and Drug AbusePatient Records regulations: The Federal rules restrict any use of the information to criminally investigate or prosecute any alcohol or drug abuse patient.[facility] Encounter Details Date Type Department Care Team (Late st Contact Info) Description 04/28/2022 Patient Msg Rheumatology [address] [place] [address] [place] [address] [place], [place] [address] Request an Appointment Social History Tobacco Use [...] on file 03/04/2022 Data from: https://www.neighborhoodatlas.medicine.[facility]/. Last address used for calculation [address] [...] Description 09/17/2024 1:30 PM EDT Office Visit [facility] [address] [place] [address] Daren Munson DC [address]00 [place] [address] Visit 8 of - Medicaid 10/02/2024 3:15 PM EDT OT/PT/Speech Visit [facility] Physical Therapy [address] [place] [address] Claribel Katz, PT [address] [place] [address] Functional neurological symptom disorder with mixed symptoms [F44.7] 10/14/2024 4:00 PM EDT [facility] Neurological Spiritism [address] [place] [address] Sylwia Mathis PA-C [address] [place] [address] I apologize I missed our last visit. I l l explain 11/13/2024 10:30 AM EDT [facility] Allergy [address] [address] Carlos Kiser MD, PhD [address] [place] [address] CVID 11/20/2024 12:00 PM EDT Procedure Cardiology [address] [place] [address] VELAZQUEZ CX/SHREE LIST. 11/20/2024 12:45 PM EDT Office Visit Cardiology [address] [place] [address] Liu Rowe MD [address] [place] [address] VELAZQUEZ CX/SHREE LIST. documented as of this encounter Visit Diagnoses Not on filedocumented in this encounter Care Teams Director Investor Relations Relationship Specialty Start Date End Date Dc Banks DO PCP - General Family Medicine 08/03/10 Kathryn Gutierrez, RN [address] [place] [address] Specialty Sales Route Driver Helper Hematology 04/03/22 documented as of this encounter
--- OUTSIDE RECORDS SUMMARY | 2024-09-15 15:43 | XMS_ITS | Encounter Summary ---
Author Organization [facility] Address [address] [place] [address] Care Team Providers Care Cracking Still Operator Name Role Phone Dc Banks Primary Care Provider [phone] Kathryn Gutierrez RN Unavailable Unavaila ble Source Comments In the event this information is protected by the Federal Confidentiality of Alcohol and Drug AbusePatient Records regulations: The Federal rules restrict any use of the information to criminally investigate or prosecute any alcohol or drug abuse patient.[facility] Encounter Details Date Type Department Care Team (Late st Contact Info) Description 04/26/2023 Patient Msg Rehab and Sports Therapy [address] [place] [address] Provider, [facility]cf Speech Therapy Social History Tobacco [...] is lower risk 4 06/27/2022 Data from: https://www.neighborhoodatlas.[facility]/. Last address used for [...] Office Visit Integrative Medicine [address] [place] [address] Daren Munson DC [address] [place] [address] Visit 8 - Medicaid 10/02/2024 3:15 PM EDT OT/PT/Speech Visit [facility] Physical Therapy [address] [place] [address] Claribel Katz, PT [address] [place] [address] Functional neurological symptom disorder with mixed symptoms [F44.7] 10/14/2024 4:00 PM EDT [facility] [address] [place] [address] Sylwia Mathis PA-C [address] [place] [address] I apologize I missed our last visit. I l l explain 11/13/2024 10:30 AM EDT [facility] Allergy [address] [address] Carlos Kiser MD, PhD [address] [place] [address] CVID 11/20/2024 12:00 PM EDT Procedure Cardiology [address] [place] [address] VELAZQUEZ CX/SHREE LIST. 11/20/2024 12:45 PM EDT Office Visit Cardiology [address] [place] [address] Liu Rowe MD [address] [place] [address] VELAZQUEZ CX/SHREE LIST. documented as of this encounter Visit Diagnoses Not on filedocumented in this encounter Care Teams Cracking Still Operator Relationship Specialty Start Date End Date Dc Banks DO PCP - General Family Medicine 08/03/10 Kathryn Gutierrez, ARMANI [address]00 [facility] [address] [place] [address] Specialty Electric Motor Repair Supervisor Hematology 04/03/22 documented as of this encounter
--- OUTSIDE RECORDS SUMMARY | 2024-09-15 15:43 | XMS_ITS | Encounter Summary ---
Author Organization [facility] Address [address] [place], [place] [address] Care Team Providers Care Assistant Art Director Name Role Phone Dc Banks Primary Care Provider [phone] Kathryn Gutierrez RN Unavailable Unavaila ble Source Comments In the event this information is protected by the Federal Confidentiality of Alcohol and Drug AbusePatient Records regulations: The Federal rules restrict any use of the information to criminally investigate or prosecute any alcohol or drug abuse patient.[facility] Encounter Details Date Type Department Care Team (Late st Contact Info) Description 11/22/2022 Patient Msg Pre Anesthesia [address] [facility] [address] [place] [address] Fe Brown PA-C [address] [place], [place] [phone] Preoperative instructions Social History Tobacco Use Types [...] is lower risk 4 06/27/2022 Data from: https://www.neighborhoodatlas.medicine.[facility].edu/. Last address used for calculation [address] [...] Office Visit Integrative Medicine [address] [place] [address] Daren Munson DC [address] [place] [address] Visit 8 - Medicaid 10/02/2024 3:15 PM EDT OT/PT/Speech Visit [facility] Physical Therapy [address] [place] [address] Claribel Katz, PT [address] [place] [address] Functional neurological symptom disorder with mixed symptoms [F44.7] 10/14/2024 4:00 PM EDT [facility] Neurological [facility] [address] [place] [address] Sylwia Mathis PA-C [address] [place] [address] I apologize I missed our last visit. I l l explain 11/13/2024 10:30 AM EDT [facility] Allergy [address] [address] Carlos Kiser MD, PhD [address] [place] [address] CVID 11/20/2024 12:00 PM EDT Procedure Cardiology [address] [place] [address] VELAZQUEZ CX/SHREE LIST. 11/20/2024 12:45 PM EDT Office Visit Cardiology [address] [place] [address] Liu Rowe MD [address] [place] [address] VELAZQUEZ CX/SHREE LIST. documented as of this encounter Visit Diagnoses Not on filedocumented in this encounter Care Teams Assistant Art Director Relationship Specialty Start Date End Date Dc Banks DO PCP - General Family Medicine 08/03/10 Kathryn Gutierrez, RN 9500 [facility] [address] [place] [address] Specialty Transcribing Machine Mechanic Hematology 04/03/22 documented as of this encounter
--- OUTSIDE RECORDS SUMMARY | 2024-09-15 15:43 | XMS_ITS | Encounter Summary ---
Author Organization [facility] Address [address] [place] [address] Care Team Providers Care Invoice Coder Name Role Phone Dc Banks Primary Care Provider [phone] Kathryn Gutierrez RN Unavailable Unavaila ble Source Comments In the event this information is protected by the Federal Confidentiality of Alcohol and Drug AbusePatient Records regulations: The Federal rules restrict any use of the information to criminally investigate or prosecute any alcohol or drug abuse patient.[facility] Encounter Details Date Type Department Care Team (Late st Contact Info) Description 05/26/2022 Patient Msg Neurology [address] [place], [place] [phone] Provider, Ccf Please Call To Confirm Your [...] N ot on file 03/04/2022 Data from: https://www.neighborhoodatlas.medicine.[facility]/. Last address used for calculation [address] [...] Office Visit Integrative Medicine [address] [place] [address] Daren Munson DC [address] [place] [address] Visit 8 - Medicaid 10/02/2024 3:15 PM EDT OT/PT/Speech Visit [facility] Physical Therapy [address] [place] [address] Claribel Katz, PT [address] [place] [address] Functional neurological symptom disorder with mixed symptoms [F44.7] 10/14/2024 4:00 PM EDT [facility] [address] [place] [address] Sylwia Mathis PA-C [address]00 [place] [address] I apologize I missed our last visit. I l l explain 11/13/2024 10:30 AM EDT [facility] [address] [address] Carlos Kiser MD, PhD [address] [place] [address] CVID 11/20/2024 12:00 PM EDT Procedure Cardiology [address] [place] [address] VELAZQUEZ CX/SHREE LIST. 11/20/2024 12:45 PM EDT Office Visit Cardiology [address] [place] [address] Liu Rowe MD [address] [place] [address] VELAZQUEZ CX/SHREE LIST. documented as of this encounter Visit Diagnoses Not on filedocumented in this encounter Care Teams Invoice Coder Relationship Specialty Start Date End Date Dc Banks DO PCP - General Family Medicine 08/03/10 Kathryn Gutierrez, RN 9500 [facility] [address] [place] [address] Specialty Office Asst Hematology 04/03/22 documented as of this encounter
--- OUTSIDE RECORDS SUMMARY | 2024-09-15 15:43 | XMS_ITS | Encounter Summary ---
Author Organization [facility] Address [address] [place] [address] Care Team Providers Care Plant Guard Name Role Phone Dc Banks Primary Care Provider [phone] Kathryn Gutierrez RN Unavailable Unavaila ble Source Comments In the event this information is protected by the Federal Confidentiality of Alcohol and Drug AbusePatient Records regulations: The Federal rules restrict any use of the information to criminally investigate or prosecute any alcohol or drug abuse patient.[facility] Encounter Details Date Type Department Care Team (Late st Contact Info) Description 05/25/2022 Patient Msg Neurology [address] [place], [place] [id number] Provider, Ccf Please Call to Confirm Your [...] N ot on file 03/04/2022 Data from: https://www.neighborhoodatlas.medicine.[facility]/. Last address used for calculation [address] [...] Office Visit Integrative Medicine [address] [place] [address] Daren Munson DC [address] [place] [address] Visit 8 of - Medicaid 10/02/2024 3:15 PM EDT OT/PT/Speech Visit [facility][1] Physical Therapy [address] [place] [address] Claribel Katz, PT [address] [place] [address] Functional neurological symptom disorder with mixed symptoms [F44.7] 10/14/2024 4:00 PM EDT [facility] Neu[facility] Confucianist [address] [place] [address] Sylwia Mathis PA-C 9500 [place] [address] I apologize I missed our last visit. I l l explain 11/13/2024 10:30 AM EDT [facility] Allergy [address] [address] Carlos Kiser MD, PhD [address] [place] [address] CVID 11/20/2024 12:00 PM EDT Procedure Cardiology [address] [place] [address] VELAZQUEZ CX/SHREE LIST. 11/20/2024 12:45 PM EDT Office Visit Cardiology [address] [place] [address] Liu Rowe MD [address] [place] [address] VELAZQUEZ CX/SHREE LIST. documented as of this encounter Visit Diagnoses Not on filedocumented in this encounter Care Teams Plant Guard Relationship Specialty Start Date End Date Dc Banks DO PCP - General Family Medicine 08/03/10 Kathryn Gutierrez, RN 9500 [facility] [address] [place] [address] Specialty Steam Shovel Runner Hematology 04/03/22 documented as of this encounter
--- OUTSIDE RECORDS SUMMARY | 2024-09-15 15:43 | XMS_ITS | Encounter Summary ---
Author Organization [facility] Address [address] [place] [address] Care Team Providers Care Wash House Worker Name Role Phone Dc Banks Primary Care Provider [phone] Kathryn Gutierrez RN Unavailable Unavaila ble Source Comments In the event this information is protected by the Federal Confidentiality of Alcohol and Drug AbusePatient Records regulations: The Federal rules restrict any use of the information to criminally investigate or prosecute any alcohol or drug abuse patient.[facility] Encounter Details Date Type Department Care Team (Late st Contact Info) Description 06/19/2022 Patient Msg [facility] [address] [place] [address] Provider, Ccf Scheduling Smart Pill Capsule Appointment [...] N ot on file 03/04/2022 Data from: https://www.neighborhoodatlas.medicine.[facility]/. Last address used for calculation [address] [...] Office Visit Integrative Medicine [address] [place] [address] Daren Munson DC [address] [place] [address] Visit 8 of - Medicaid 10/02/2024 3:15 PM EDT OT/PT/Speech Visit [facility] Physical Therapy [address] [place], [place] [address] Claribel Katz, PT [address] [place] [address] Functional neurological symptom disorder with mixed symptoms [F44.7] 10/14/2024 4:00 PM EDT [facility] Neu[facility] Roman Catholic [address] [place] [address] Sylwia Mathis PA-C [address]00 [place] [address] I apologize I missed our last visit. I l l explain 11/13/2024 10:30 AM EDT [facility] [address] [address] Carlos Kiser MD, PhD [address] [place] [address] CVID 11/20/2024 12:00 PM EDT Procedure Cardiology [address] [place] [address] VELAZQUEZ CX/SHREE LIST. 11/20/2024 12:45 PM EDT Office Visit Cardiology [address] [place] [address] Liu Rowe MD [address]00 [place] [address] VELAZQUEZ CX/SHREE LIST. documented as of this encounter Visit Diagnoses Not on filedocumented in this encounter Care Teams Wash House Worker Relationship Specialty Start Date End Date Dc Banks DO PCP - General Family Medicine 08/03/10 Kathryn Gutierrez, RN 9500 [facility] [place] [address] Specialty House Sitter Hematology 04/03/22 documented as of this encounter
--- OUTSIDE RECORDS SUMMARY | 2024-09-15 15:43 | XMS_ITS | Encounter Summary ---
Author Organization [facility] Address [address] [place] [address] Care Team Providers Care Granite Chip Terrazzo Finisher Name Role Phone Dc Banks Primary Care Provider [phone] Kathryn Gutierrez RN Unavailable Unavaila ble Source Comments In the event this information is protected by the Federal Confidentiality of Alcohol and Drug AbusePatient Records regulations: The Federal rules restrict any use of the information to criminally investigate or prosecute any alcohol or drug abuse patient.[facility] Encounter Details Date Type Department Care Team (Late st Contact Info) Description 01/22/2023 Abstract Allergy [address] [address] Jenny South APRN.SHIFT FOREMAN [address] [place] [address] Social History Tobacco Use Types Packs/Day Years [...] is lower risk 4 06/27/2022 Data from: https://www.neighborhoodatlas.medicine.[facility].edu/. Last address used for calculation [address] [...] Office Visit Integrative Medicine [address] [place] [address] Daren Munson DC [address] [place] [address] Visit 8 - Medicaid 10/02/2024 3:15 PM EDT OT/PT/Speech Visit [facility] Physical Therapy [address] [place] [address] Claribel Katz, PT [address] [place] [address] Functional neurological symptom disorder with mixed symptoms [F44.7] 10/14/2024 4:00 PM EDT [facility] Neu[facility] Jew [address] [place] [address] Sylwia Mathis PAHerveC 9500 [place] [address] I apologize I missed our last visit. I l l explain 11/13/2024 10:30 AM EDT [facility] [address] [address] Carlos Kiser MD, PhD [address] [place] [address] CVID 11/20/2024 12:00 PM EDT Procedure Cardiology [address] [place] [address] VELAZQUEZ CX/SHREE LIST. 11/20/2024 12:45 PM EDT Office Visit Cardiology [address] [place] [address] Liu Rowe MD [address] [place] [address] VELAZQUEZ CX/SHREE LIST. documented as of this encounter Visit Diagnoses Not on filedocumented in this encounter Care Teams Granite Chip Terrazzo Finisher Relationship Specialty Start Date End Date Dc Banks DO PCP - General Family Medicine 08/03/10 Kathryn Gutierrez, RN 9500 [facility] [address] [place] [address] Specialty Industrial Diamond Polisher Hematology 04/03/22 documented as of this encounter
--- OUTSIDE RECORDS SUMMARY | 2024-09-15 15:43 | XMS_ITS | Encounter Summary ---
Author Organization [facility] Address [address] [place] [address] Care Team Providers Care Boot And Shoe Laborer Name Role Phone Dc Banks Primary Care Provider [phone] Kathryn Gutierrez RN Unavailable Unavaila ble Source Comments In the event this information is protected by the Federal Confidentiality of Alcohol and Drug AbusePatient Records regulations: The Federal rules restrict any use of the information to criminally investigate or prosecute any alcohol or drug abuse patient.[facility] Encounter Details Date Type Department Care Team (Late st Contact Info) Description 03/07/2022 Patient Msg Neurology [address] [place] [address] Tasha Saucedo, DATA SCIENCE AND IOT MANAGER.[address] [address] Appointment Request Social History Tobacco Use Types Packs/Day Years Used Date Smoking Tobacco: Former Cigarettes 0.5 6 1 02/19/2007 - 12/20/2013 Smokeless Tobacco: Never Alcohol Use Standard Drinks/Week Comments No 0 (1 standard drink = 0.6 oz pur e alcohol) PHQ-2 Answer Date Recorded PHQ-2 score 4 03/06/2022 Area Deprivation Index Answer Date Slaav rded National Score (1-100), lower number is lower ri sk 65 03/04/2022 State Score (1-10), lower number is lower risk N ot on file 03/04/2022 Data from: https://www.neighborhoodatlas.medicine.[facility]/. Last address used for calculation [address] 03/04/2022 Comments No Sex and Gender [...] Visit Integrative Medicine [address] [place] [address] Daren Munson DC [address] [place] [address] Visit 8 - Medicaid 10/02/2024 3:15 PM EDT OT/PT/Speech Visit [facility] Physical Therapy [address] [address] Claribel Katz, PT [address] [place] [address] Functional neurological symptom disorder with mixed symptoms [F44.7] 10/14/2024 4:00 PM EDT [facility] Presybeterian [address] [place] [address] Sylwia Mathis PAHerveC [address] [place] [address] I apologize I missed our last visit. I l l explain 11/13/2024 10:30 AM EDT [facility] [address] [address] Carlos Kiser MD, PhD [address] [place] [address] CVID 11/20/2024 12:00 PM EDT Procedure Cardiology 9[address] [place] [address] VELAZQUEZ CX/SHREE LIST. 11/20/2024 12:45 PM EDT Office Visit Cardiology [address] [place] [address] Liu Rowe MD [address]00 [place] [address] VELAZQUEZ CX/SHREE LIST. documented as of this encounter Visit Diagnoses Not on filedocumented in this encounter Care Teams Boot And Shoe Laborer Relationship Specialty Start Date End Date Dc Banks DO PCP - General Family Medicine 08/03/10 Kathryn Gutierrez, RN 9500 [facility] [address] [place] [address] Specialty Appliance Mechanic Hematology 04/03/22 documented as of this encounter
--- OUTSIDE RECORDS SUMMARY | 2024-09-15 15:43 | XMS_ITS | Encounter Summary ---
Author Organization [facility] Address [address] [place] [address] Care Team Providers Care Surgical Scrub Technologist Name Role Phone Dc Banks Primary Care Provider Kathryn Gutierrez RN Unavailable Unavaila ble Source Comments In the event this information is protected by the Federal Confidentiality of Alcohol and Drug AbusePatient Records regulations: The Federal rules restrict any use of the information to criminally investigate or prosecute any alcohol or drug abuse patient.[facility] Encounter Details Date Type Department Care Team (Late st Contact Info) Description 03/07/2023 Abstract Allergy [address] [place] [address] Jenny South, JOHANNA.CORPORATE SALES MANAGER [address] [place] [address] Social History Tobacco Use Types Packs/Day Years [...] lower risk 4 06/27/2022 Data from: https://www.neighborhoodatlas.medicine.[facility].edu/. Last address used for calculation [address] [...] EDMallorie [place] RN * Do you have difficulty dressing [...] Office Visit Integrative Medicine [address] [place] [address] Daren Munson DC [address] [place] [address] Visit 8 - Medicaid 10/02/2024 3:15 PM EDT OT/PT/Speech Visit [facility] Physical Therapy [address] [place] [address] Claribel Katz, PT [address] [place] [address] Functional neurological symptom disorder with mixed symptoms [F44.7] 10/14/2024 4:00 PM EDT [facility] Mandaen [address] [place] [address] Sylwia Mathis PA-C [address] [place] [address] I apologize I missed our last visit. I l l explain 11/13/2024 10:30 AM EDT [facility] [address] [address] Carlos Kiser MD, PhD [address] [place] [address] CVID 11/20/2024 12:00 PM EDT Procedure Cardiology [address] [place] [address] VELAZQUEZ CX/SHREE LIST. 11/20/2024 12:45 PM EDT Office Visit Cardiology [address] [place] [address] Liu Rowe MD [address] [place] [address] VELAZQUEZ CX/SHREE LIST. documented as of this encounter Visit Diagnoses Not on filedocumented in this encounter Care Teams Surgical Scrub Technologist Relationship Specialty Start Date End Date Dc Banks DO PCP - General Family Medicine 08/03/10 Kathryn Gutierrez, RN 9500 [facility] [address] [place] [address] Specialty Fire Extinguisher Tester Hematology 04/03/22 documented as of this encounter
--- OUTSIDE RECORDS SUMMARY | 2024-09-15 15:44 | XMS_ITS | Encounter Summary ---
Author Organization [facility] Address [address] [place] [address] Care Team Providers Care Retail Associate Name Role Phone Dc Banks Primary Care Provider [phone] Kathryn Gutierrez RN Unavailable Unavaila ble Source Comments In the event this information is protected by the Federal Confidentiality of Alcohol and Drug AbusePatient Records regulations: The Federal rules restrict any use of the information to criminally investigate or prosecute any alcohol or drug abuse patient.[facility] Encounter Details Date Type Department Care Team (Late st Contact Info) Description 08/14/2022 Patient Msg [facility] [address] [place] [address] Provider, Ccf CAPSULE SCHEDULING LINE Social History [...] lower risk 4 06/27/2022 Data from: https://www.neighborhoodatlas.medicine.[facility].edu/. Last address used for calculation [address] [...] Office Visit Integrative Medicine [address] [place] [address] Daren Munson DC [address] [place] [address] Visit 8 - Medicaid 10/02/2024 3:15 PM EDT OT/PT/Speech Visit [facility] Physical Therapy [address] [place], [place] [address] Claribel Katz, PT [address] [place] [address] Functional neurological symptom disorder with mixed symptoms [F44.7] 10/14/2024 4:00 PM EDT [facility] Neurological Faith [address] [place] [address] Sylwia Mathis PA-C [address] [place] [address] I apologize I missed our last visit. I l l explain 11/13/2024 10:30 AM EDT [facility] [address] [address] Carlos Kiser MD, PhD [address] [place] [address] CVID 11/20/2024 12:00 PM EDT Procedure Cardiology [address] [place] [address] VELAZQUEZ CX/SHREE LIST. 11/20/2024 12:45 PM EDT Office Visit Cardiology [address] [place] [address] Liu Rowe MD [address] [place] [address] VELAZQUEZ CX/SHREE LIST. documented as of this encounter Visit Diagnoses Not on filedocumented in this encounter Care Teams Retail Associate Relationship Specialty Start Date End Date Dc Banks DO PCP - General Family Medicine 08/03/10 Kathryn Gutierrez, ARMANI 9500 [facility] [address] [place] [address] Specialty Occupational Health Professional Hematology 04/03/22 documented as of this encounter
--- OUTSIDE RECORDS SUMMARY | 2024-09-15 15:44 | XMS_ITS | Encounter Summary ---
Author Organization [facility] Address [address] [place] [address] Care Team Providers Care Loader Operator Name Role Phone Dc Banks Primary Care Provider Kathryn Gutierrez RN Unavailable Unavaila ble Source Comments In the event this information is protected by the Federal Confidentiality of Alcohol and Drug AbusePatient Records regulations: The Federal rules restrict any use of the information to criminally investigate or prosecute any alcohol or drug abuse patient.[facility] Encounter Details Date Type Department Care Team (Late st Contact Info) Description 11/12/2023 Patient Msg [facility] Speech Therapy [address] [place] [id number] Maria Isabel Perez, [facility]-SOCIOLOGY INSTRUCTOR [address] [place] [address] ACTION REQUIRED: Please complete your [...] is lower risk 4 06/27/2022 Data from: https://www.neighborhoodatlas.medicine.[facility].edu/. Last address used for calculation [address] [...] Office Visit Integrative Medicine [address] [place] [address] Daren Munson DC [address] [place] [address] Visit 8 - Medicaid 10/02/2024 3:15 PM EDT OT/PT/Speech Visit [facility] Physical Therapy [address] [place] [address] Claribel Katz, PT [address] [place] [address] Functional neurological symptom disorder with mixed symptoms [F44.7] 10/14/2024 4:00 PM EDT [facility] Neurological Scientologist [address] [place] [address] Sylwia Mathis PA-C [address] [place] [address] I apologize I missed our last visit. I l l explain 11/13/2024 10:30 AM EDT [facility] Health Allergy [address] [address] Carlos Kiser MD, PhD [address] [place] [address] CVID 11/20/2024 12:00 PM EDT Procedure Cardiology [address] [place] [address] VELAZQUEZ CX/SHREE LIST. 11/20/2024 12:45 PM EDT Office Visit Cardiology [address] [place] [address] Liu Rowe MD [address] [place] [address] VELAZQUEZ CX/SHREE LIST. documented as of this encounter Visit Diagnoses Not on filedocumented in this encounter Care Teams Loader Operator Relationship Specialty Start Date End Date Dc Banks DO PCP - General Family Medicine 08/03/10 Kathryn Gutierrez, ARMANI 9500 [facility] [address] [place] [address] Specialty Silk Spreader Hematology 04/03/22 documented as of this encounter
--- OUTSIDE RECORDS SUMMARY | 2024-09-15 15:44 | XMS_ITS | Encounter Summary ---
Author Organization [facility] Address [address] [place] [address] Care Team Providers Care Manager Lab Name Role Phone Dc Banks Primary Care Provider [phone] Kathryn Gutierrez RN Unavailable Unavaila ble Source Comments In the event this information is protected by the Federal Confidentiality of Alcohol and Drug AbusePatient Records regulations: The Federal rules restrict any use of the information to criminally investigate or prosecute any alcohol or drug abuse patient.[facility] Encounter Details Date Type Department Care Team (Late st Contact Info) Description 06/21/2023 Patient Msg Psychiatry [address] [place] [address] Veronica Costa MD Treatment plan from today's [...] risk 4 06/27/2022 Data from: https://www.neighborhoodatlas.medicine.[facility]/. Last address used for calculation [address] [...] Office Visit Integrative Medicine [address] [place] [address] Daren Munson DC [address] [place] [address] Visit 8 [facility] 10/02/2024 3:15 PM EDT OT/PT/Speech Visit [facility] Physical Therapy [address] [place] [address] KatzClaribel kenny, PT [address] [place] [address] Functional neurological symptom disorder with mixed symptoms [F44.7] 10/14/2024 4:00 PM EDT [facility] Religious [address] [place] [address] Sylwia Mathis PA-C [address] [place] [address] I apologize I missed our last visit. I l l explain 11/13/2024 10:30 AM EDT [facility] [address] [address] Carlos Kiser MD, PhD [address] [place] [address] CVID 11/20/2024 12:00 PM EDT Procedure Cardiology [address] [place] [address] VELAZQUEZ CX/SHREE LIST. 11/20/2024 12:45 PM EDT Office Visit Cardiology [address] [place] [address] Liu Rowe MD [address] [place] [address] VELAZQUEZ CX/SHREE LIST. documented as of this encounter Visit Diagnoses Not on filedocumented in this encounter Care Teams Manager Lab Relationship Specialty Start Date End Date Dc Banks DO PCP - General Family Medicine 08/03/10 Kathryn Gutierrez, RN 9500 [facility] [address] [place] [address] Specialty Door Assembler Hematology 04/03/22 documented as of this encounter
--- OUTSIDE RECORDS SUMMARY | 2024-09-15 15:44 | XMS_ITS | Encounter Summary ---
Author Organization [facility] Address [address] [place], [place] [phone] Care Team Providers Care Strip Winder Name Role Phone Dc Banks Primary Care Provider [phone] Kathryn Gutierrez RN Unavailable Unavaila ble Source Comments In the event this information is protected by the Federal Confidentiality of Alcohol and Drug AbusePatient Records regulations: The Federal rules restrict any use of the information to criminally investigate or prosecute any alcohol or drug abuse patient.[facility] Encounter Details Date Type Department Care Team (Late st Contact Info) Description 08/24/2022 Patient [facility] [address] [place] [address] Bebeto Perry MD [address] [place], [place] [id number] Effie lab results Social History Tobacco Use Types [...] risk 4 06/27/2022 Data from: https://www.neighborhoodatlas.medicine.[facility].edu/. Last address used for calculation [address] [...] Entry Date Author No 07/16/2022 11:15 AM Mlalorie Jimenez RN documented in this encounter Plan of Treatment Upcoming Encounters Date Type Department Care Team (Latest Contact Info) Description 09/17/2024 1:30 PM EDT Office Visit Integrative Medicine [address] [place] [address] Daren Munson DC [address] [place] [address] Visit 8 - Medicaid 10/02/2024 3:15 PM EDT OT/PT/Speech Visit [facility] Physical Therapy [address] [address] Claribel Katz, PT [address] [place] [address] Functional neurological symptom disorder with mixed symptoms [F44.7] 10/14/2024 4:00 PM EDT [facility] Neu[facility] Muslim [address] [place] [address] Sylwia Mathis PAHerveC [address] [place] [address] I apologize I missed our last visit. I l l explain 11/13/2024 10:30 AM EDT [facility] [address] [address] Carlos Kiser MD, PhD [address] [place] [address] CVID 11/20/2024 12:00 PM EDT Procedure Cardiology [address] [place] [address] VELAZQUEZ CX/SHREE LIST. 11/20/2024 12:45 PM EDT Office Visit Cardiology [address] [place] [address] Liu Rowe MD [address] [place] [address] VELAZQUEZ CX/SHREE LIST. documented as of this encounter Visit Diagnoses Not on filedocumented in this encounter Care Teams Strip Winder Relationship Specialty Start Date End Date Dc Banks DO PCP - General Family Medicine 08/03/10 Kathryn Gutierrez, RN 9500 [facility] [address] [place] [address] Specialty Construction Economist Hematology 04/03/22 documented as of this encounter
--- OUTSIDE RECORDS SUMMARY | 2024-09-15 15:44 | XMS_ITS | Encounter Summary ---
Author Organization [facility] Address [address] [place] [address] Care Team Providers Care Expert Witness Name Role Phone Dc Banks Primary Care Provider [phone] Kathryn Gutierrez RN Unavailable Unavaila ble Source Comments In the event this information is protected by the Federal Confidentiality of Alcohol and Drug AbusePatient Records regulations: The Federal rules restrict any use of the information to criminally investigate or prosecute any alcohol or drug abuse patient.[facility] Encounter Details Date Type Department Care Team (Late st Contact Info) Description 11/06/2022 Patient Msg Neurology [address] [place], [place] [id number] Provider, Ccf Please call to confirm your [...] 4 06/27/2022 Data from: https://www.neighborhoodatlas.[facility] healthcare.[facility]/. Last address used for calculation [...] Office Visit Integrative Medicine [address] [place] [address] Daren Munson DC [address] [place] [address] Visit 8 - Medicaid 10/02/2024 3:15 PM EDT OT/PT/Speech Visit [facility] Physical Therapy [address] [place], [place] [id number] Claribel Katz, PT [address] [place] [address] Functional neurological symptom disorder with mixed symptoms [F44.7] 10/14/2024 4:00 PM EDT [facility]-Ism [address] [place] [address] Sylwia Mathis PA-C 9500 [place] [address] I apologize I missed our last visit. I l l explain 11/13/2024 10:30 AM EDT [facility] Allergy [address] [address] Carlos Kiser MD, PhD [address]00 [place] [address] CVID 11/20/2024 12:00 PM EDT Procedure Cardiology 9300 [place] [address] VELAZQUEZ CX/SHREE LIST. 11/20/2024 12:45 PM EDT Office Visit Cardiology 9300 [place] [address] Liu Rowe MD 9500 [place] [address] VELAZQUEZ CX/SHREE LIST. documented as of this encounter Visit Diagnoses Not on filedocumented in this encounter Care Teams Expert Witness Relationship Specialty Start Date End Date Dc Banks DO PCP - General Family Medicine 08/03/10 Kathryn Gutierrez, ARMANI 9500 [facility] [address] [place] [address] Specialty Roller Die Cutting Machine Operator Hematology 04/03/22 documented as of this encounter
--- OUTSIDE RECORDS SUMMARY | 2024-09-15 15:44 | XMS_ITS | Encounter Summary ---
Author Organization [facility] Address [address] [place], [place] [id number] Care Team Providers Care Conical Mixer Name Role Phone Dc Banks Primary Care Provider [phone] Kathryn Gutierrez RN Unavailable Unavaila ble Source Comments In the event this information is protected by the Federal Confidentiality of Alcohol and Drug AbusePatient Records regulations: The Federal rules restrict any use of the information to criminally investigate or prosecute any alcohol or drug abuse patient.[facility] Encounter Details Date Type Department Care Team (Late st Contact Info) Description 07/21/2022 Get Medical Advice Allergy [address] [place] [address] Carlos Kiser MD, PhD [address] [place], [place] [id number] Response to previous message Social History Tobacco [...] is lower risk 4 06/27/2022 Data from: https://www.neighborhoodatlas.medicine.[facility].edu/. Last address used for calculation 315 [...] Description 09/17/2024 1:30 PM EDT Office Visit [facility] [address] [place] [address] Daren Munson DC 9500 [place] [address] Visit 8 - Medicaid 10/02/2024 3:15 PM EDT OT/PT/Speech Visit [facility] Physical Therapy [address] [place] [place] [address] Claribel Katz, PT [address] [place] [address] Functional neurological symptom disorder with mixed symptoms [F44.7] 10/14/2024 4:00 PM EDT [facility] Neurological Religious [address] [place] [address] Sylwia Mathis PA-C [address] [place] [address] I apologize I missed our last visit. I l l explain 11/13/2024 10:30 AM EDT [facility] Allergy [address] [address] Carlos Kiser MD, PhD 9500 [place] [address] CVID 11/20/2024 12:00 PM EDT Procedure Cardiology 9[address] [place] [address] VELAZQUEZ CX/SHREE LIST. 11/20/2024 12:45 PM EDT Office Visit Cardiology 9[address] [place] [address] Liu Rowe MD [address] [place] [address] VELAZQUEZ CX/SHREE LIST. documented as of this encounter Visit Diagnoses Not on filedocumented in this encounter Care Teams Conical Mixer Relationship Specialty Start Date End Date Dc Banks DO PCP - General Family Medicine 08/03/10 Kathryn Gutierrez, RN [address] [place] [address] Specialty Circulator Hematology 04/03/22 documented as of this encounter
--- OUTSIDE RECORDS SUMMARY | 2024-09-15 15:44 | XMS_ITS | Encounter Summary ---
Author Organization [facility] Address [address] [place], [place] [phone] Care Team Providers Care Java Software Architect Name Role Phone Darren Dc Susy SHANKS Primary Care Provider [phone] Kathryn Gutierrez RN Unavailable Unavaila ble Source Comments In the event this information is protected by the Federal Confidentiality of Alcohol and Drug AbusePatient Records regulations: The Federal rules restrict any use of the information to criminally investigate or prosecute any alcohol or drug abuse patient.[facility] Encounter Details Date Type Department Care Team (Late st Contact Info) Description 07/17/2023 [facility] [address] [place] [address] Deon Douglass DO [facility] [address] [place] [address] Appointment Request Social History Tobacco Use Types [...] is lower risk 4 06/27/2022 Data from: https://www.neighborhoodatlas.medicine.[facility].edu/. Last address used for calculation [address] [...] Office Visit Integrative Medicine [address] [place] [address] Daren Munson DC [address] [place] [address] Visit 8 - Medicaid 10/02/2024 3:15 PM EDT OT/PT/Speech Visit [facility] Physical Therapy [address] [place] [place] [address] Claribel Katz, PT [address] [place] [address] Functional neurological symptom disorder with mixed symptoms [F44.7] 10/14/2024 4:00 PM EDT [facility] Neurological Religion [address] [place] [address] Sylwia Mathis PA-C [address] [place] [address] I apologize I missed our last visit. I l l explain 11/13/2024 10:30 AM EDT [facility] Allergy [address] [address] Carlos Kiser MD, PhD [address]00 [place] [address] CVID 11/20/2024 12:00 PM EDT Procedure Cardiology [address] [place] [address] VELAZQUEZ CX/SHREE LIST. 11/20/2024 12:45 PM EDT Office Visit Cardiology [address] [place] [address] Liu Rowe MD [address] [place] [address] VELAZQUEZ CX/SHREE LIST. documented as of this encounter Visit Diagnoses Not on filedocumented in this encounter Care Teams Java Software Architect Relationship Specialty Start Date End Date Dc Banks DO PCP - General Family Medicine 08/03/10 Kathryn Gutierrez, RN 9500 [facility] [address] [place] [address] Specialty Integration Consultant Hematology 04/03/22 documented as of this encounter
--- OUTSIDE RECORDS SUMMARY | 2024-09-15 15:44 | XMS_ITS | Encounter Summary ---
Author Organization [facility] Address [address] [place] [address] Care Team Providers Care Tech Brazer Tester Name Role Phone Dc Banks Primary Care Provider [phone] Kathryn Gutierrez RN Unavailable Unavaila ble Source Comments In the event this information is protected by the Federal Confidentiality of Alcohol and Drug AbusePatient Records regulations: The Federal rules restrict any use of the information to criminally investigate or prosecute any alcohol or drug abuse patient.[facility] Encounter Details Date Type Department Care Team (Late st Contact Info) Description 09/19/2022 Patient Msg Neurology [address] [place], [place] [phone] Provider, Ccf Appointment Rescheduled Social History Tobacco [...] is lower risk 4 06/27/2022 Data from: https://www.j.w. [facility] memorial hospitalatlas.[facility]/. Last address used for calculation [...] Office Visit Integrative Medicine [address] [place] [address] Daren Munson DC [address] [place] [address] Visit 8 - Medicaid 10/02/2024 3:15 PM EDT OT/PT/Speech Visit [facility] Physical Therapy [address] [place], [place] [address] Claribel Ktaz, PT [address] [place] [address] Functional neurological symptom disorder with mixed symptoms [F44.7] 10/14/2024 4:00 PM EDT [facility] [place]andaen [address] [place] [address] Sylwia Mathis PA-C [address]00 [place] [address] I apologize I missed our last visit. I l l explain 11/13/2024 10:30 AM EDT [facility] [address] [address] Carlos Kiser MD, PhD [address] [place] [address] CVID 11/20/2024 12:00 PM EDT Procedure Cardiology 9300 [place] [address] VELAZQUEZ CX/SHREE LIST. 11/20/2024 12:45 PM EDT Office Visit Cardiology 9300 [place] [address] Liu Rowe MD [address] [place] [address] VELAZQUEZ CX/SHREE LIST. documented as of this encounter Visit Diagnoses Not on filedocumented in this encounter Care Teams Tech Brazer Tester Relationship Specialty Start Date End Date Dc Banks DO PCP - General Family Medicine 08/03/10 Kathryn Gutierrez, ARMANI 9500 [facility] [address] [place] [address] Specialty Stone Polisher Hand Hematology 04/03/22 documented as of this encounter
--- OUTSIDE RECORDS SUMMARY | 2024-09-15 15:44 | XMS_ITS | Encounter Summary ---
Author Organization [facility] Address [address] [place] [address] Care Team Providers Care Erp Developer Name Role Phone Dc Banks Primary Care Provider Kathryn Gutierrez RN Unavailable Unavaila ble Source Comments In the event this information is protected by the Federal Confidentiality of Alcohol and Drug AbusePatient Records regulations: The Federal rules restrict any use of the information to criminally investigate or prosecute any alcohol or drug abuse patient.[facility] Encounter Details Date Type Department Care Team (Late st Contact Info) Description 09/11/2022 Patient Msg Neurology [address] [place], [place] [phone] Provider, Ccf PLEASE CONFIRM SLEEP STUDY #1 [...] risk 4 06/27/2022 Data from: https://www.neighborhoodatlas.[facility]/. Last address used for calculation [...] Office Visit Integrative Medicine [address] [place] [address] Daren Munson DC [address] [place] [address] Visit 8 - Medicaid 10/02/2024 3:15 PM EDT OT/PT/Speech Visit [facility] Physical Therapy [address] [place], [place] [phone] Claribel Katz, PT [address] [place] [address] Functional neurological symptom disorder with mixed symptoms [F44.7] 10/14/2024 4:00 PM EDT [facility] Hoahaoism [address] [place] [address] Sylwia Mathis PA-C [address]00 [place] [address] I apologize I missed our last visit. I l l explain 11/13/2024 10:30 AM EDT [facility] [address] [address] Carlos Kiser MD, PhD [address] [place] [address] CVID 11/20/2024 12:00 PM EDT Procedure Cardiology 9[address] [place] [address] VELAZQUEZ CX/SHREE LIST. 11/20/2024 12:45 PM EDT Office Visit Cardiology [address] [place] [address] Liu Rowe MD [address] [place] [address] VELAZQUEZ CX/SHREE LIST. documented as of this encounter Visit Diagnoses Not on filedocumented in this encounter Care Teams Erp Developer Relationship Specialty Start Date End Date Dc Banks DO PCP - General Family Medicine 08/03/10 Kathryn Gutierrez, ARMANI 9500 [facility] [address] [place] [address] Specialty Calciner Operator Helper Hematology 04/03/22 documented as of this encounter
--- OUTSIDE RECORDS SUMMARY | 2024-09-15 15:44 | XMS_ITS | Encounter Summary ---
Author Organization [facility] Address [address] [place] [address] Care Team Providers Care Window Glass Cutter Off Name Role Phone Dc Banks Primary Care Provider [phone] Kathryn Gutierrez RN Unavailable Unavaila ble Source [...] Contact Info) Description 08/18/2023 Patient Msg Neurological Yazidism [address] [place] [id number] Chinyere Thapa, PhD [address] [place] [phone] [facility] Group Resource Social History Tobacco [...] lower risk 4 06/27/2022 Data from: https://www.neighborhoodatlas.medicine.[facility].edu/. Last address used for calculation [address] [...] Office Visit Integrative Medicine [address] [place] [address] Daren Munson DC [address] [place] [address] Visit 8 [facility] - Medicaid 10/02/2024 3:15 PM EDT OT/PT/Speech Visit [facility] Physical Therapy [address] [place] [address] KatzClaribel kenny, PT [address] [place] [address] Functional neurological symptom disorder with mixed symptoms [F44.7] 10/14/2024 4:00 PM EDT [facility] Yazidism [address] [place] [address] Sylwia Mathis PA-C 9500 [place] [address] I apologize I missed our last visit. I l l explain 11/13/2024 10:30 AM EDT [facility] [address] [address] Carlos Kiser MD, PhD [address] [place] [address] CVID 11/20/2024 12:00 PM EDT Procedure Cardiology 9[address] [place] [address] VELAZQUEZ CX/SHREE LIST. 11/20/2024 12:45 PM EDT Office Visit Cardiology 9[address] [place] [address] Liu Rowe MD [address] [place] [address] VELAZQUEZ CX/SHREE LIST. documented as of this encounter Visit Diagnoses Not on filedocumented in this encounter Care Teams Window Glass Cutter Off Relationship Specialty Start Date End Date Dc Banks DO PCP - General Family Medicine 08/03/10 Kathryn Gutierrez, RN 9500 [facility] [address] [place] [address] Specialty Tone Regulator Hematology 04/03/22 documented as of this encounter
--- OUTSIDE RECORDS SUMMARY | 2024-09-15 15:44 | XMS_ITS | Encounter Summary ---
Author Organization [facility] Address [address] [place] [address] Care Team Providers Care Cookie Breaker Name Role Phone Dc Banks Primary Care Provider [phone] Kathryn Gutierrez RN Unavailable Unavaila ble Source Comments In the event this information is protected by the Federal Confidentiality of Alcohol and Drug AbusePatient Records regulations: The Federal rules restrict any use of the information to criminally investigate or prosecute any alcohol or drug abuse patient.[facility] Encounter Details Date Type Department Care Team (Late st Contact Info) Description 09/20/2022 Patient Msg Neurology [address] [place], [place] [phone] Provider, Ccf Important Medication Instructions for Neuro [...] is lower risk 4 06/27/2022 Data from: https://www.neighborhoodatlas.[facility]/. Last address used [...] Office Visit Integrative Medicine [address] [place] [address] Daren Munson DC [address] [place] [address] Visit 8 - Medicaid 10/02/2024 3:15 PM EDT OT/PT/Speech Visit [facility] Physical Therapy [address] [place] [address] Claribel Katz, PT [address] [place] [address] Functional neurological symptom disorder with mixed symptoms [F44.7] 10/14/2024 4:00 PM EDT [facility] Gnosticism [address] [place] [address] Sylwia Mathis PA-C [address] [place] [address] I apologize I missed our last visit. I l l explain 11/13/2024 10:30 AM EDT [facility] [address] [address] Carlos Kiser MD, PhD [address] [place] [address] CVID 11/20/2024 12:00 PM EDT Procedure Cardiology [address] [place] [address] VELAZQUEZ CX/SHREE LIST. 11/20/2024 12:45 PM EDT Office Visit Cardiology [address] [place] [address] Liu Rowe MD [address] [place] [address] VELAZQUEZ CX/SHREE LIST. documented as of this encounter Visit Diagnoses Not on filedocumented in this encounter Care Teams Cookie Breaker Relationship Specialty Start Date End Date Dc Banks DO PCP - General Family Medicine 08/03/10 Kathryn Gutierrez, RN 9500 [facility] [address] [place] [address] Specialty Enamel Burner Hematology 04/03/22 documented as of this encounter
--- OUTSIDE RECORDS SUMMARY | 2024-09-15 15:44 | XMS_ITS | Encounter Summary ---
Author Organization [facility] Address [address] [place] [address] Care Team Providers Care Territory Representative Name Role Phone Dc Banks Primary Care Provider [phone] Kathryn Gutierrez RN Unavailable Unavaila ble Source Comments In the event this information is protected by the Federal Confidentiality of Alcohol and Drug AbusePatient Records regulations: The Federal rules restrict any use of the information to criminally investigate or prosecute any alcohol or drug abuse patient.[facility] Encounter Details Date Type Department Care Team (Late st Contact Info) Description 08/28/2023 Patient Msg General Surgery [facility] [address] [place] [address] [place] [address] Appointment Request Social History Tobacco Use Types [...] is lower risk 4 06/27/2022 Data from: https://www.neighborhoodatlas.medicine.[facility].edu/. Last address used for calculation [address] [...] Office Visit Integrative Medicine [address] [place] [address] Daren Munson DC [address] [place] [address] Visit 8 - Medicaid 10/02/2024 3:15 PM EDT OT/PT/Speech Visit [facility] Physical Therapy [address] [place] [address] Claribel Katz, PT [address] [place] [address] Functional neurological symptom disorder with mixed symptoms [F44.7] 10/14/2024 4:00 PM EDT [facility] Neurological Protestant [address] [place] [address] Sylwia Mathis PA-C [address]00 [place] [address] I apologize I missed our last visit. I l l explain 11/13/2024 10:30 AM EDT [facility] Allergy [address] [address] Carlos Kiser MD, PhD [address] [place] [address] CVID 11/20/2024 12:00 PM EDT Procedure Cardiology [address] [place] [address] VELAZQUEZ CX/SHREE LIST. 11/20/2024 12:45 PM EDT Office Visit Cardiology [address] [place] [address] Liu Rowe MD [address]00 [place] [address] VELAZQUEZ CX/SHREE LIST. documented as of this encounter Visit Diagnoses Not on filedocumented in this encounter Care Teams Territory Representative Relationship Specialty Start Date End Date Dc Banks DO PCP - General Family Medicine 08/03/10 Kathryn Gutierrez, RN 9500 [facility] [address] [place] [address] Specialty Motor Coach Operator Hematology 04/03/22 documented as of this encounter
--- OUTSIDE RECORDS SUMMARY | 2024-09-15 15:44 | XMS_ITS | Encounter Summary ---
Author Organization [facility] Address [address] [place], [place] [phone] Care Team Providers Care Document Analyst Name Role Phone Dc Banks Primary Care Provider [phone] Kathryn Gutierrez RN Unavailable Unavaila ble Source Comments In the event this information is protected by the Federal Confidentiality of Alcohol and Drug AbusePatient Records regulations: The Federal rules restrict any use of the information to criminally investigate or prosecute any alcohol or drug abuse patient.[facility] Encounter Details Date Type Department Care Team (Late st Contact Info) Description 07/01/2023 Get Medical Advice Allergy [address] [place] [address] Carlos Kiser MD, PhD [address] [place], [place] [phone] Double appts. Social History Tobacco Use Types [...] is lower risk 4 06/27/2022 Data from: https://www.neighborhoodatlas.medicine.[facility].edu/. Last address used for calculation [...] Office Visit Integrative Medicine [address] [place] [address] Daren Munson DC [address] [place] [address] Visit 8 - Medicaid 10/02/2024 3:15 PM EDT OT/PT/Speech Visit [facility] Physical Therapy [address] [place] [address] Claribel Katz, PT [address] [place] [address] Functional neurological symptom disorder with mixed symptoms [F44.7] 10/14/2024 4:00 PM EDT [facility] Neurological Jehovah'S Witness [address] [place] [address] Sylwia Mathis PA-C [address]00 [place] [address] I apologize I missed our last visit. I l l explain 11/13/2024 10:30 AM EDT [facility] Allergy [address] [address] Carlos Kiser MD, PhD [address] [place] [address] CVID 11/20/2024 12:00 PM EDT Procedure Cardiology [address] [place] [address] VELAZQUEZ CX/SHREE LIST. 11/20/2024 12:45 PM EDT Office Visit Cardiology [address] [place] [address] Liu Rowe MD [address]00 [place] [address] VELAZQUEZ CX/SHREE LIST. documented as of this encounter Visit Diagnoses Not on filedocumented in this encounter Care Teams Document Analyst Relationship Specialty Start Date End Date Dc Banks DO PCP - General Family Medicine 08/03/10 Kathryn Gutierrez, ARMANI 9500 [facility] [address] [place] [address] Specialty Lokie Engineer Hematology 04/03/22 documented as of this encounter
--- OUTSIDE RECORDS SUMMARY | 2024-09-15 15:44 | XMS_ITS | Encounter Summary ---
Author Organization [facility] Address [address] [place] [address] Care Team Providers Care Merchandise Displayer Name Role Phone Dc Banks Primary Care Provider [phone] Kathryn Gutierrez RN Unavailable Unavaila ble Source Comments In the event this information is protected by the Federal Confidentiality of Alcohol and Drug AbusePatient Records regulations: The Federal rules restrict any use of the information to criminally investigate or prosecute any alcohol or drug abuse patient.[facility] Encounter Details Date Type Department Care Team (Late st Contact Info) Description 10/23/2023 Patient Msg [facility] Speech Therapy [address] [place] [phone] Maria Isabel Perez, [facility]ODUCTION COUNTER [address] [place] [address] Appointment Request Social History Tobacco [...] risk 4 06/27/2022 Data from: https://www.neighborhoodatlas.medicine.[facility].edu/. Last address used for calculation [address] [...] Office Visit Integrative Medicine [address] [place] [address] Daren Munson DC [address] [place] [address] Visit 8 - Medicaid 10/02/2024 3:15 PM EDT OT/PT/Speech Visit [facility] Physical Therapy [address] [place] [address] Claribel Katz, PT [address] [place] [address] Functional neurological symptom disorder with mixed symptoms [F44.7] 10/14/2024 4:00 PM EDT [facility] [address] [place] [address] Sylwia Mathis PA-C [address]00 [place] [address] I apologize I missed our last visit. I l l explain 11/13/2024 10:30 AM EDT [facility] [address] [address] Carlos Kiser MD, PhD [address] [place] [address] CVID 11/20/2024 12:00 PM EDT Procedure Cardiology [address] [place] [address] VELAZQUEZ CX/SHREE LIST. 11/20/2024 12:45 PM EDT Office Visit Cardiology [address] [place] [address] Liu Rowe MD [address] [place] [address] VELAZQUEZ CX/SHREE LIST. documented as of this encounter Visit Diagnoses Not on filedocumented in this encounter Care Teams Merchandise Displayer Relationship Specialty Start Date End Date Dc Banks DO PCP - General Family Medicine 08/03/10 Kathryn Gutierrez, RN 9500 [facility] [address] [place] [address] Specialty Custodial Foreman Hematology 04/03/22 documented as of this encounter
--- OUTSIDE RECORDS SUMMARY | 2024-09-15 15:44 | XMS_ITS | Clinical Summary ---
Author Organization [facility] Address [address] [place] [address] Care Team Providers Care Glass Sander Name Role Phone Dc Banks MD Primary Care Provider [phone] Allergies Active Allergy Reactions Criticality Noted Date [...] Plan of Treatment Not on file Insurance [facility] MEDICAID Care Teams Glass Sander Relationship Specialty Start Date End Date Dc Banks MD [address] [place] [address] PCP - General Smokehouse Worker 03/22/23
--- OUTSIDE RECORDS SUMMARY | 2024-09-15 15:44 | XMS_ITS | Encounter Summary ---
Author Organization [facility] Address [address] [place] [address] Care Team Providers Care Wire Lather Name Role Phone Dc Banks Primary Care Provider [phone] Kathryn Gutierrez RN Unavailable Unavaila ble Source Comments In the event this information is protected by the Federal Confidentiality of Alcohol and Drug AbusePatient Records regulations: The Federal rules restrict any use of the information to criminally investigate or prosecute any alcohol or drug abuse patient.[facility] Encounter Details Date Type Department Care Team (Late st Contact Info) Description 07/28/2022 Patient Msg Allergy [address] [id number] Provider, Ccf Requested Documents Social History Tobacco [...] is lower risk 4 06/27/2022 Data from: https://www.neighborhoodatlas.medicine.[facility]/. Last address used for calculation [address] 06/27/2022 Comments No Sex and Gender [...] Office Visit Integrative Medicine [address] [place] [address] Daren Munson DC [address] [place] [address] Visit 8 of 15 - Medicaid 10/02/2024 3:15 PM EDT OT/PT/Speech Visit [facility] Physical Therapy [address] [place] [address] Claribel Katz, PT [address] [place] [address] Functional neurological symptom disorder with mixed symptoms [F44.7] 10/14/2024 4:00 PM EDT [facility] Zoroastrian [address] [place] [address] Sylwia Mathis PA-C [address] [place] [address] I apologize I missed our last visit. I l l explain 11/13/2024 10:30 AM EDT [facility] Allergy [address] [address] Carlos Kiser MD, PhD [address] [place] [address] CVID 11/20/2024 12:00 PM EDT Procedure Cardiology [address] [place] [address] VELAZQUEZ CX/SHREE LIST. 11/20/2024 12:45 PM EDT Office Visit Cardiology [address] [place] [address] Liu Rowe MD [address] [place] [address] VELAZQUEZ CX/SHREE LIST. documented as of this encounter Visit Diagnoses Not on filedocumented in this encounter Care Teams Wire Lather Relationship Specialty Start Date End Date Dc Banks DO PCP - General Family Medicine 08/03/10 Kathryn Gutierrez, ARMANI [address] [facility] [address] [place] [address] Specialty Telecom Engineer Hematology 04/03/22 documented as of this encounter
--- OUTSIDE RECORDS SUMMARY | 2024-09-15 15:44 | XMS_ITS | Encounter Summary ---
Author Organization [facility] Address [address] [place] [address] Care Team Providers Care Investments Manager Name Role Phone Dc Banks Primary Care Provider [phone] Kathryn Gutierrez RN Unavailable Unavaila ble Source [...] Contact Info) Description 09/13/2022 Patient Msg Neurology [address] [place], [place] [phone] Provider, Ccf PLEASE CONFIRM SLEEP STUDY #2 [...] is lower risk 4 06/27/2022 Data from: https://www.neighborhoodatlas.[facility]/. Last address used for [...] Office Visit Integrative Medicine [address] [place] [address] Daren Munson DC [address] [place] [address] Visit 8 - Medicaid 10/02/2024 3:15 PM EDT OT/PT/Speech Visit [facility] Physical Therapy [address] [place], [place] [address] Claribel Katz, PT [address] [place] [address] Functional neurological symptom disorder with mixed symptoms [F44.7] 10/14/2024 4:00 PM EDT [facility] Latter Day [address] [place] [address] Sylwia Mathis PA-C [address] [place] [address] I apologize I missed our last visit. I l l explain 11/13/2024 10:30 AM EDT [facility] [address] [address] Carlos Kiser MD, PhD [address] [place] [address] CVID 11/20/2024 12:00 PM EDT Procedure Cardiology [address] [place] [address] VELAZQUEZ CX/HSREE LIST. 11/20/2024 12:45 PM EDT Office Visit Cardiology [address] [place] [address] Liu Rowe MD [address] [place] [address] VELAZQUEZ CX/SHREE LIST. documented as of this encounter Visit Diagnoses Not on filedocumented in this encounter Care Teams Investments Manager Relationship Specialty Start Date End Date Dc Banks DO PCP - General Family Medicine 08/03/10 Kathryn Gutierrez, ARMANI 9500 [facility] [address] [place] [address] Specialty Coo & Co Founder Hematology 04/03/22 documented as of this encounter
--- OUTSIDE RECORDS SUMMARY | 2024-09-15 15:44 | XMS_ITS | Encounter Summary ---
Author Organization [facility] Address [address] [place] [address] Care Team Providers Care Steak Sauce Maker Name Role Phone Dc Banks Primary Care Provider [phone] Kathryn Gutierrez RN Unavailable Unavaila ble Source Comments In the event this information is protected by the Federal Confidentiality of Alcohol and Drug AbusePatient Records regulations: The Federal rules restrict any use of the information to criminally investigate or prosecute any alcohol or drug abuse patient.[facility] Encounter Details Date Type Department Care Team (Late st Contact Info) Description 12/29/2021 Patient Msg Neurology [address] [place], [place] [phone] Provider, Ccf Important Medication Instructions for Neuro [...] N ot on file 08/08/2021 Data from: https://www.neighborhoodatlas.[facility]/. Last address [...] Office Visit Integrative Medicine [address] [place] [address] Daren Munson DC [address] [place] [address] Visit 8 - Medicaid 10/02/2024 3:15 PM EDT OT/PT/Speech Visit [facility] Physical Therapy [address] [place] [address] Claribel Katz, PT [address] [place] [address] Functional neurological symptom disorder with mixed symptoms [F44.7] 10/14/2024 4:00 PM EDT [facility] Amish [address] [place] [address] Sylwia Mathis PA-C [address] [place] [address] I apologize I missed our last visit. I l l explain 11/13/2024 10:30 AM EDT [facility] [address] [address] Carlos Kiser MD, PhD [address] [place] [address] CVID 11/20/2024 12:00 PM EDT Procedure Cardiology [address] [place] [address] VELAZQUEZ CX/SHREE LIST. 11/20/2024 12:45 PM EDT Office Visit Cardiology [address] [place] [address] Liu Rowe MD [address] [place] [address] VELAZQUEZ CX/SHREE LIST. documented as of this encounter Visit Diagnoses Not on filedocumented in this encounter Additional Health Concerns Infection Onset Date Last Indicated Resolved Time COVID-19 Rule-Out 01/26/2022 01/26/2022 01/26/2022 8:17 PM EST documented as of this encounter Care Teams Steak Sauce Maker Relationship Specialty Start Date End Date Dc Banks DO PCP - General Family Medicine 08/03/10 Kathryn Gutierrez, RN [address] [facility] [address] [place] [address] Specialty Desktop Administrator Hematology 04/03/22 documented as of this encounter
--- OUTSIDE RECORDS SUMMARY | 2024-09-15 15:44 | XMS_ITS | Encounter Summary ---
Author Organization [facility] Address [address] [place] [address] Care Team Providers Care Surgical Garment Assembler Name Role Phone Dc Banks Primary Care Provider [phone] Kathryn Gutierrez RN Unavailable Unavaila ble Source Comments In the event this information is protected by the Federal Confidentiality of Alcohol and Drug AbusePatient Records regulations: The Federal rules restrict any use of the information to criminally investigate or prosecute any alcohol or drug abuse patient.[facility] Encounter Details Date Type Department Care Team (Late st Contact Info) Description 10/11/2021 Patient Msg Neurology [address] [id number] Chacho Fox, [address] [address] message Social History Tobacco Use [...] N ot on file 08/08/2021 Data from: https://www.neighborhoodatlas.medicine.[facility]/. Last address used for calculation [address] 08/08/2021 Comments No Sex and Gender [...] PM EDT Office Visit Integrative Medicine [address] [place], [place] [phone] Daren Munson DC [address] [place] [address] Visit 8 of - Medicaid 10/02/2024 3:15 PM EDT OT/PT/Speech Visit [facility] Physical Therapy [address] [place] [address] Claribel Katz, PT [address] [place] [address] Functional neurological symptom disorder with mixed symptoms [F44.7] 10/14/2024 4:00 PM EDT [facility] Neurological Scientologist [address] [place] [address] Sylwia Mathis PA-C [address] [place] [address] I apologize I missed our last visit. I l l explain 11/13/2024 10:30 AM EDT [facility] Allergy [address] [address] Carlos Kiser MD, PhD [address] [place] [address] CVID 11/20/2024 12:00 PM EDT Procedure Cardiology [address] [place] [address] VELAZQUEZ CX/SHREE LIST. 11/20/2024 12:45 PM EDT Office Visit Cardiology [address] [place] [address] Liu Rowe MD [address] [place] [address] VELAZQUEZ CX/SHREE LIST. documented as of this encounter Visit Diagnoses Not on filedocumented in this encounter Additional Health Concerns Infection Onset Date Last Indicated Resolved Time COVID-19 Rule-Out 01/26/2022 01/26/2022 01/26/2022 8:17 PM EST documented as of this encounter Care Teams Surgical Garment Assembler Relationship Specialty Start Date End Date Dc Banks DO PCP - General Family Medicine 08/03/10 Kathryn Gutierrez, RN [address] [place] [address] Specialty Marking Machine Operator Hematology 04/03/22 documented as of this encounter
--- OUTSIDE RECORDS SUMMARY | 2024-09-15 15:44 | XMS_ITS | Encounter Summary ---
Author Organization [facility] Address [address] [place] [address] Care Team Providers Care Church Warden Name Role Phone Dc Banks Susy SHANKS Primary Care Provider [phone] Kathryn Gutierrez RN Unavailable Unavaila ble Source [...] Info) Description 08/26/2023 Get Medical Advice Gastroenterology [facility] [address] [place] [address] Deon Douglass DO [facility] [address] [place] [address] What does this mean for me? Social [...] risk 4 06/27/2022 Data from: https://www.neighborhoodatlas.medicine.[facility]/. Last address used for calculation [address] [...] Office Visit Integrative Medicine [address] [place] [address] Daren Munson DC [address] [place] [address] Visit 8 of - Medicaid 10/02/2024 3:15 PM EDT OT/PT/Speech Visit [facility] Physical Therapy [address] [place] [address] Claribel Katz, PT [address] [place] [address] Functional neurological symptom disorder with mixed symptoms [F44.7] 10/14/2024 4:00 PM EDT [facility] Zoroastrianism [address] [place] [address] Sylwia Mathis PAHerveC [address] [place] [address] I apologize I missed our last visit. I l l explain 11/13/2024 10:30 AM EDT [facility] Allergy [address] [address] Carlos Kiser MD, PhD [address] [place] [address] CVID 11/20/2024 12:00 PM EDT Procedure Cardiology [address] [place] [address] VELAZQUEZ CX/SHREE LIST. 11/20/2024 12:45 PM EDT Office Visit Cardiology [address] [place] [address] Liu Rowe MD [address] [place] [address] WASSIF CX/SHREE LIST. documented as of this encounter Visit Diagnoses Not on filedocumented in this encounter Care Teams Church Warden Relationship Specialty Start Date End Date Dc Banks DO PCP - General Family Medicine 08/03/10 Kathryn Gutierrez, RN [address] [place] [address] Specialty Rn Disease Management Hematology 04/03/22 documented as of this encounter
--- OUTSIDE RECORDS SUMMARY | 2024-09-15 15:44 | XMS_ITS | Encounter Summary ---
Author Organization [facility] Address [address] [place] [address] Care Team Providers Care Dredge Hand Name Role Phone Dc Banks Primary Care Provider [phone] Kathryn Gutierrez RN Unavailable Unavaila ble Source [...] Description 01/24/2022 Patient Msg Ambulatory Surgery [address] [phone] Provider, Ccf EGD Social History Tobacco Use [...] N ot on file 08/08/2021 Data from: https://www.neighborhoodatlas.medicine.[facility]/. Last address used for calculation [address] [...] Office Visit Integrative Medicine [address] [place] [address] Daren Munson DC [address] [place] [address] Visit [address] Medicaid 10/02/2024 3:15 PM EDT OT/PT/Speech Visit [facility] Physical Therapy [address] [place] [address] Claribel Katz, PT [address] [place] [address] Functional neurological symptom disorder with mixed symptoms [F44.7] 10/14/2024 4:00 PM EDT [facility] Neurological Nondenominational [address] [place] [address] Sylwia Mathis PA-C [address] [place] [address] I apologize I missed our last visit. I l l explain 11/13/2024 10:30 AM EDT [facility] Allergy [address] [address] Carlos Kiser MD, PhD [address] [place] [address] CVID 11/20/2024 12:00 PM EDT Procedure Cardiology [address] [place] [address] VELAZQUEZ CX/SHREE LIST. 11/20/2024 12:45 PM EDT Office Visit Cardiology [address] [place] [address] Liu Rowe MD [address] [place] [address] VELAZQUEZ CX/SHREE LIST. documented as of this encounter Visit Diagnoses Not on filedocumented in this encounter Additional Health Concerns Infection Onset Date Last Indicated Resolved Time COVID-19 Rule-Out 01/26/2022 01/26/2022 01/26/2022 8:17 PM EST documented as of this encounter Care Teams Dredge Hand Relationship Specialty Start Date End Date Dc Banks DO PCP - General Family Medicine 08/03/10 Kathryn Gutierrez, RN [address] [place] [address] Specialty Rn Managed Care Hematology 04/03/22 documented as of this encounter
--- OUTSIDE RECORDS SUMMARY | 2024-09-15 15:44 | XMS_ITS | Encounter Summary ---
Author Organization [facility] Address [address] [place] [address] Care Team Providers Care Policeman Name Role Phone Dc Banks Primary Care Provider [phone] Kathryn Gutierrez RN Unavailable Unavaila ble Source [...] Contact Info) Description 08/11/2022 Patient Msg Neurological [place] [address] [phone] Provider, Ccf FMD map Social History Tobacco [...] is lower risk 4 06/27/2022 Data from: https://www.neighborhoodatlas.medicine.[facility]/. Last address [...] Office Visit Integrative Medicine [address] [place] [address] Daren Munson DC [address] [place] [address] Visit 8 of 15 - Medicaid 10/02/2024 3:15 PM EDT OT/PT/Speech Visit [facility] Physical Therapy [address] [place] [address] Claribel Katz, PT [address] [place] [address] Functional neurological symptom disorder with mixed symptoms [F44.7] 10/14/2024 4:00 PM EDT [facility] [place] [address] [place] [address] Sylwia Mathis PA-C [address] [place] [address] I apologize I missed our last visit. I l l explain 11/13/2024 10:30 AM EDT [facility] [address] [address] Carlos Kiser MD, PhD [address] [place] [address] CVID 11/20/2024 12:00 PM EDT Procedure Cardiology [address] [place] [address] VELAZQUEZ CX/SHREE LIST. 11/20/2024 12:45 PM EDT Office Visit Cardiology [address] [place] [address] Liu Rowe MD [address] [place] [address] VELAZQUEZ CX/SHREE LIST. documented as of this encounter Visit Diagnoses Not on filedocumented in this encounter Care Teams Policeman Relationship Specialty Start Date End Date Dc Bnaks DO PCP - General Family Medicine 08/03/10 Kathryn Gutierrez, ARMANI 9500 [facility] [address] [place] [address] Specialty Nylon Winder Hematology 04/03/22 documented as of this encounter
--- OUTSIDE RECORDS SUMMARY | 2024-09-15 15:44 | XMS_ITS | Encounter Summary ---
Author Organization [facility] Address [address] [place] [address] Care Team Providers Care Alterations Supervisor Name Role Phone Dc Banks Primary Care Provider [phone] Kathryn Gutierrez RN Unavailable Unavaila ble Source Comments In the event this information is protected by the Federal Confidentiality of Alcohol and Drug AbusePatient Records regulations: The Federal rules restrict any use of the information to criminally investigate or prosecute any alcohol or drug abuse patient.[facility] Encounter Details Date Type Department Care Team (Late st Contact Info) Description 01/19/2022 Get Medical Advice Hematology/Oncology [address] [phone] [place] [address] [place] [address] Lab results Social History Tobacco Use Types [...] N ot on file 08/08/2021 Data from: https://www.neighborhoodatlas.medicine.[facility].edu/. Last address used for calculation [address] [...] due to meeting. Asking for call back: [phone] documented in this encounter Plan of Treatment Upcoming Encounters Date Type Department Care Team (Latest Contact Info) Description 09/17/2024 1:30 PM EDT Office Visit Integrative Medicine [address] [place] [address] Daren Munson DC [address] [place] [address] Visit 8 - Medicaid 10/02/2024 3:15 PM EDT OT/PT/Speech Visit [facility] Physical Therapy [address] [place] [address] Claribel Katz, PT [address] [place] [address] Functional neurological symptom disorder with mixed symptoms [F44.7] 10/14/2024 4:00 PM EDT [facility] [address] [place] [address] Sylwia Mathis PA-C [address] [place], [place] [id number] I apologize I missed our last visit. I l l explain 11/13/2024 10:30 AM EDT [facility] [address] [address] Carlos Kiser MD, PhD [address] [place] [address] CVID 11/20/2024 12:00 PM EDT Procedure Cardiology [address] [place] [address] VELAZQUEZ CX/SHREE LIST. 11/20/2024 12:45 PM EDT Office Visit Cardiology [address] [place] [address] Liu Rowe MD [address] [place] [address] VELAZQUEZ CX/SHREE LIST. documented as of this encounter Visit Diagnoses Not on filedocumented in this encounter Additional Health Concerns Infection Onset Date Last Indicated Resolved Time COVID-19 Rule-Out 01/26/2022 01/26/2022 01/26/2022 8:17 PM EST documented as of this encounter Care Teams Alterations Supervisor Relationship Specialty Start Date End Date Dc Banks DO PCP - General Family Medicine 08/03/10 Kathryn Gutierrez, RN [address] [place] [address] Specialty Botany Laboratory Assistant Hematology 04/03/22 documented as of this encounter
--- OUTSIDE RECORDS SUMMARY | 2024-09-15 15:44 | XMS_ITS | Encounter Summary ---
Author Organization [facility] Address [address] [place] [address] Care Team Providers Care Metal Fitters And Machinists Name Role Phone Dc Banks Primary Care Provider [phone] Kathryn Gutierrez RN Unavailable Unavaila ble Source [...] Info) Description 10/24/2022 Patient Msg Neurology [address] [place], [place] [address] Provider, Ccf IMPORTANT MEDICATION INSTRUCTIONS FOR AUTONOMIC [...] is lower risk 4 06/27/2022 Data from: https://www.neighborhoodatlas.[facility]/. Last address used for calculation [...] 07/16/2022 11:15 AM EDMallorie Morris RN * Because of a physical, mental, [...] Office Visit Integrative Medicine [address] [place] [address] Daren Munson DC [address] [place] [address] Visit 8 - Medicaid 10/02/2024 3:15 PM EDT OT/PT/Speech Visit [facility] Physical Therapy [address] [place] [address] Claribel Katz, PT [address] [place] [address] Functional neurological symptom disorder with mixed symptoms [F44.7] 10/14/2024 4:00 PM EDT [facility] Anabaptist [address] [place] [address] Sylwia Mathis PA-C [address] [place] [address] I apologize I missed our last visit. I l l explain 11/13/2024 10:30 AM EDT [facility] [address] [address] Carlos Kiser MD, PhD [address] [place] [address] CVID 11/20/2024 12:00 PM EDT Procedure Cardiology [address] [place] [address] VELAZQUEZ CX/SHREE LIST. 11/20/2024 12:45 PM EDT Office Visit Cardiology [address] [place] [address] Liu Rowe MD [address] [place] [address] VELAZQUEZ CX/SHREE LIST. documented as of this encounter Visit Diagnoses Not on filedocumented in this encounter Care Teams Metal Fitters And Machinists Relationship Specialty Start Date End Date Dc Banks DO PCP - General Family Medicine 08/03/10 Kathryn Gutierrez, RN 9500 [facility] [address] [place] [address] Specialty Barrel Maker Hematology 04/03/22 documented as of this encounter
--- OUTSIDE RECORDS SUMMARY | 2024-09-15 15:44 | XMS_ITS | Encounter Summary ---
Author Organization [facility] Address [address] [place] [address] Care Team Providers Care Wool Grower Name Role Phone Dc Banks Primary Care Provider [phone] Kathryn Gutierrez RN Unavailable Unavaila ble Source [...] Contact Info) Description 07/13/2023 Patient Msg Neurology [address] [place], [place] [phone] Provider, Ccf New Provider Social History Tobacco [...] risk 4 06/27/2022 Data from: https://www.neighborhoodatlas.[facility]/. Last address used for calculation [...] Office Visit Integrative Medicine [address] [place] [address] Daren Munson DC [address] [place] [address] Visit 8 - Medicaid 10/02/2024 3:15 PM EDT OT/PT/Speech Visit [facility] Physical Therapy [address] [place], [place] [phone] Claribel Katz, PT [address] [place] [address] Functional neurological symptom disorder with mixed symptoms [F44.7] 10/14/2024 4:00 PM EDT [facility] Roman Catholic [address] [place] [address] Sylwia Mathis PA-C [address] [place] [address] I apologize I missed our last visit. I l l explain 11/13/2024 10:30 AM EDT [facility] [address] [address] Carlos Kiser MD, PhD [address] [place] [address] CVID 11/20/2024 12:00 PM EDT Procedure Cardiology [address] [place] [address] VELAZQUEZ CX/SHREE LIST. 11/20/2024 12:45 PM EDT Office Visit Cardiology [address] [place] [address] Liu Rowe MD [address] [place] [address] VELAZQUEZ CX/SHREE LIST. documented as of this encounter Visit Diagnoses Not on filedocumented in this encounter Care Teams Wool Grower Relationship Specialty Start Date End Date Dc Banks DO PCP - General Family Medicine 08/03/10 Kathryn Gutierrez, ARMANI [address]00 [facility] [address] [place] [address] Specialty Electric Fork Operator Hematology 04/03/22 documented as of this encounter
--- OUTSIDE RECORDS SUMMARY | 2024-09-15 15:44 | XMS_ITS | Encounter Summary ---
Author Organization [facility] Address [address] [place], [place] [id number] Care Team Providers Care Front Maker Name Role Phone Dc Banks Primary Care Provider [phone] Kathryn Gutierrez RN Unavailable Unavaila ble Source Comments In the event this information is protected by the Federal Confidentiality of Alcohol and Drug AbusePatient Records regulations: The Federal rules restrict any use of the information to criminally investigate or prosecute any alcohol or drug abuse patient.[facility] Encounter Details Date Type Department Care Team (Late st Contact Info) Description 08/04/2022 Get Medical Advice Allergy [address]48 [place] [address] Carlos Kiser MD, PhD [address] [place], [place] [id number] New IVIG Orders Social History Tobacco Use [...] Description 09/17/2024 1:30 PM EDT Office Visit [facility] [address] [place] [address] Daren Munson DC 9500 [place] [address] Visit 8 - Medicaid 10/02/2024 3:15 PM EDT OT/PT/Speech Visit [facility] Physical Therapy [address] [place] [address] Claribel Katz, PT [address] [place] [address] Functional neurological symptom disorder with mixed symptoms [F44.7] 10/14/2024 4:00 PM EDT [facility] Neurological Evangelical 9300 [place] [address] Sylwia Mathis PA-C 9500 [place] [address] I apologize I missed our last visit. I l l explain 11/13/2024 10:30 AM EDT [facility] Allergy [address] [address] Carlos Kiser MD, PhD 9500 [place] [address] CVID 11/20/2024 12:00 PM EDT Procedure Cardiology [address] [place] [address] VELAZQUEZ CX/SHREE LIST. 11/20/2024 12:45 PM EDT Office Visit Cardiology 9300 [place] [address] Liu Rowe MD [address]00 [place] [address] VELAZQUEZ CX/SHREE LIST. documented as of this encounter Visit Diagnoses Not on filedocumented in this encounter Care Teams Front Maker Relationship Specialty Start Date End Date Dc Banks DO PCP - General Family Medicine 08/03/10 Kathryn Gutierrez, RN [address] [place] [address] Specialty Software Requirements Engineer Hematology 04/03/22 documented as of this encounter
--- OUTSIDE RECORDS SUMMARY | 2024-09-15 15:44 | XMS_ITS | Encounter Summary ---
Author Organization [facility] Address [address] [place] [address] Care Team Providers Care Religious Leader Name Role Phone Dc Banks Primary Care Provider [phone] Kathryn Gutierrez RN Unavailable Unavaila ble Source [...] Contact Info) Description 07/25/2022 Patient Ms Respiratory [place] [address] [place] [address] Provider, Ccf Urgent -Video Visit scheduled for [...] is lower risk 4 06/27/2022 Data from: https://www.neighborhoodatlas.[facility]/. Last address used for calculation [address] [...] Office Visit Integrative Medicine [address] [place] [address] Daren Munson DC [address] [place] [address] Visit 8 of 15 - Medicaid 10/02/2024 3:15 PM EDT OT/PT/Speech Visit [facility] Physical Therapy [address] [place] [address] Claribel Katz, PT [address] [place] [address] Functional neurological symptom disorder with mixed symptoms [F44.7] 10/14/2024 4:00 PM EDT [facility] Neurological Anabaptist [address] [place] [address] Sylwia Mathis PA-C [address] [place], [place] [id number] I apologize I missed our last visit. I l l explain 11/13/2024 10:30 AM EDT [facility] Allergy [address] [address] Carlos Kiser MD, PhD [address]00 [place] [address] CVID 11/20/2024 12:00 PM EDT Procedure Cardiology 9300 [place] [address] VELAZQUEZ CX/SHREE LIST. 11/20/2024 12:45 PM EDT Office Visit Cardiology [address] [place] [address] Liu Rowe MD 9500 [place] [address] VELAZQUEZ CX/SHREE LIST. documented as of this encounter Visit Diagnoses Not on filedocumented in this encounter Care Teams Religious Leader Relationship Specialty Start Date End Date Dc Banks DO PCP - General Family Medicine 08/03/10 Kathryn Gutierrez, RN 9500 [facility] [address] [place] [address] Specialty Scan Coordinator Hematology 04/03/22 documented as of this encounter
--- OUTSIDE RECORDS SUMMARY | 2024-09-15 15:44 | XMS_ITS | Encounter Summary ---
Author Organization [facility] Address [address] [place] [address] Care Team Providers Care Casting Machine Adjuster Name Role Phone Dc Banks Primary Care Provider [phone] Kathryn Gutierrez RN Unavailable Unavaila ble Source Comments In the event this information is protected by the Federal Confidentiality of Alcohol and Drug AbusePatient Records regulations: The Federal rules restrict any use of the information to criminally investigate or prosecute any alcohol or drug abuse patient.[facility] Encounter Details Date Type Department Care Team (Late st Contact Info) Description 07/25/2022 Abstract Allergy [address] [address] Jenny South APRN.HOME VISITOR [address] [place] [address] Social History Tobacco Use Types Packs/Day Years [...] risk 4 06/27/2022 Data from: https://www.neighborhoodatlas.medicine.[facility]/. Last address used for calculation [address] [...] EDT Office Visit Integrative Medicine [address] [place] [address] Daren Munson DC 9500 [place] [address] Visit 8 of - Medicaid 10/02/2024 3:15 PM EDT OT/PT/Speech Visit [facility] Physical Therapy [address] [place] [address] Claribel Katz, PT [address] [place] [address] Functional neurological symptom disorder with mixed symptoms [F44.7] 10/14/2024 4:00 PM EDT [facility] Neurological Bahai [address] [place] [address] Sylwia Mathis PA-C 9500 [place] [address] I apologize I missed our last visit. I l l explain 11/13/2024 10:30 AM EDT [facility] Allergy [address] [address] Carlos Kiser MD, PhD [address]00 [place] [address] CVID 11/20/2024 12:00 PM EDT Procedure Cardiology [address] [place] [address] VELAZQUEZ CX/SHREE LIST. 11/20/2024 12:45 PM EDT Office Visit Cardiology [address] [place] [address] Liu Rowe MD [address] [place] [address] VELAZQUEZ CX/SHREE LIST. documented as of this encounter Visit Diagnoses Not on filedocumented in this encounter Care Teams Casting Machine Adjuster Relationship Specialty Start Date End Date Dc Banks DO PCP - General Family Medicine 08/03/10 Kathryn Gutierrez, RN [address] [place] [address] Specialty Checking Clerk Hematology 04/03/22 documented as of this encounter
--- OUTSIDE RECORDS SUMMARY | 2024-09-15 15:44 | XMS_ITS | Encounter Summary ---
Author Organization [facility] Address [address] [place] [address] Care Team Providers Care Field Service Engineer Name Role Phone Dc Banks Primary Care Provider [phone] Kathryn Gutierrez RN Unavailable Unavaila ble Source Comments In the event this information is protected by the Federal Confidentiality of Alcohol and Drug AbusePatient Records regulations: The Federal rules restrict any use of the information to criminally investigate or prosecute any alcohol or drug abuse patient.[facility] Encounter Details Date Type Department Care Team (Late st Contact Info) Description 09/19/2022 Patient Msg Neurology [address] [place], [place] [id number] Provider, Ccf Appointment Rescdeuled Social History Tobacco [...] is lower risk 4 06/27/2022 Data from: https://www.[facility] hospitalatlas.[facility]/. Last address used for calculation [address] [...] Office Visit Integrative Medicine [address] [place] [address] Daren Munson DC [address] [place] [address] Visit 8 - Medicaid 10/02/2024 3:15 PM EDT OT/PT/Speech Visit [facility] Physical Therapy [address] [place], [place] [phone] Claribel Katz, PT [address] [place] [address] Functional neurological symptom disorder with mixed symptoms [F44.7] 10/14/2024 4:00 PM EDT [facility] Neurological Episcopalian [address] [place] [address] Sylwai Mathis PA-C 9500 [place] [address] I apologize I missed our last visit. I l l explain 11/13/2024 10:30 AM EDT [facility] Allergy [address] [address] Carlos Kiser MD, PhD [address] [place] [address] CVID 11/20/2024 12:00 PM EDT Procedure Cardiology 9300 [place] [address] VELAZQUEZ CX/SHREE LIST. 11/20/2024 12:45 PM EDT Office Visit Cardiology 9300 [place] [address] Liu Rowe MD [address]00 [place] [address] VELAZQUEZ CX/SHREE LIST. documented as of this encounter Visit Diagnoses Not on filedocumented in this encounter Care Teams Field Service Engineer Relationship Specialty Start Date End Date Dc Banks DO PCP - General Family Medicine 08/03/10 Kathryn Gutierrez, ARMANI 9500 [facility] [address] [place] [address] Specialty Wharf Attendant Hematology 04/03/22 documented as of this encounter
--- OUTSIDE RECORDS SUMMARY | 2024-09-15 15:44 | XMS_ITS | Encounter Summary ---
Author Organization [facility] Address [address] [place] [address] Care Team Providers Care Sampler And Test Preparer Name Role Phone Dc Banks Primary Care Provider [phone] Kathryn Gutierrez RN Unavailable Unavaila ble Source Comments In the event this information is protected by the Federal Confidentiality of Alcohol and Drug AbusePatient Records regulations: The Federal rules restrict any use of the information to criminally investigate or prosecute any alcohol or drug abuse patient.[facility] Encounter Details Date Type Department Care Team (Late st Contact Info) Description 10/26/2022 Patient Msg Neurological Buddhism [address] [place], [place] [id number] Lindy Dsouza LISW [address] [place], [place] [address] Follow up options Social History Tobacco Use [...] Office Visit Integrative Medicine [address] [place] [address] Daren Munson DC [address] [place] [address] Visit 8 - Medicaid 10/02/2024 3:15 PM EDT OT/PT/Speech Visit [facility] Physical Therapy [address] [place] [address] Claribel Katz, PT [address] [place] [address] Functional neurological symptom disorder with mixed symptoms [F44.7] 10/14/2024 4:00 PM EDT [facility] Neurological Buddhism [address] [place] [address] Sylwia Mathis PA-C 9500 [place] [address] I apologize I missed our last visit. I l l explain 11/13/2024 10:30 AM EDT [facility] [address] [address] Carlos Kiser MD, PhD [address] [place] [address] CVID 11/20/2024 12:00 PM EDT Procedure Cardiology 9[address] [place] [address] VELAZQUEZ CX/SHREE LIST. 11/20/2024 12:45 PM EDT Office Visit Cardiology 9300 [place] [address] Liu Rowe MD [address]00 [place] [address] VELAZQUEZ CX/SHREE LIST. documented as of this encounter Visit Diagnoses Not on filedocumented in this encounter Care Teams Sampler And Test Preparer Relationship Specialty Start Date End Date Dc Banks DO PCP - General Family Medicine 08/03/10 Kathryn Gutierrez, RN 9500 [facility] [address] [place] [address] Specialty Telephone Operator Hematology 04/03/22 documented as of this encounter
--- OUTSIDE RECORDS SUMMARY | 2024-09-15 15:44 | XMS_ITS | Encounter Summary ---
Author Organization [facility] Address [address] [place] [address] Care Team Providers Care Purchasing And Fiscal Clerk Name Role Phone Dc Banks Primary Care Provider [phone] Kathryn Gutierrez RN Unavailable Unavaila ble Source [...] Info) Description 2022 Patient Msg Neurology [address] [place] [address] Tasha Saucedo, SECURITIES SETTLEMENT PROCESSOR.[address] [address] After visit summary Social History Tobacco Use [...] is lower risk 4 06/27/2022 Data from: https://www.neighborhoodatlas.medicine.[facility]/. Last address used for calculation [address] [...] Office Visit Integrative Medicine [address] [place] [address] Daren Munson DC [address] [place] [address] Visit 8 - Medicaid 10/02/2024 3:15 PM EDT OT/PT/Speech Visit [facility] Physical Therapy [address] [place] [address] Claribel Katz, PT [address] [place] [address] Functional neurological symptom disorder with mixed symptoms [F44.7] 10/14/2024 4:00 PM EDT [facility] Neurological [place]ats[place] [address] [place] [address] Sylwia Mathis PA-C 9500 [place] [address] I apologize I missed our last visit. I l l explain 11/13/2024 10:30 AM EDT [facility] All[facility] [address] [address] Carlos Kiser MD, PhD [address]00 [place] [address] CVID 11/20/2024 12:00 PM EDT Procedure Cardiology [address] [place] [address] VELAZQUEZ CX/SHREE LIST. 11/20/2024 12:45 PM EDT Office Visit Cardiology 9300 [place] [address] Liu Rowe MD 9500 [place] [address] VELAZQUEZ CX/SHREE LIST. documented as of this encounter Visit Diagnoses Not on filedocumented in this encounter Care Teams Purchasing And Fiscal Clerk Relationship Specialty Start Date End Date Dc Banks DO PCP - General Family Medicine 08/03/10 Kathryn Gutierrez, RN 9500 [facility] [address] [place] [address] Specialty Biology Specimen Technician Hematology 04/03/22 documented as of this encounter
--- OUTSIDE RECORDS SUMMARY | 2024-09-15 15:45 | XMS_ITS | Encounter Summary ---
Author Organization [facility] Address [address] [place] [address] Care Team Providers Care Printed Circuit Board Layout Designer Name Role Phone Dc Banks Primary Care Provider [phone] Kathryn Gutierrez RN Unavailable Unavaila ble Source Comments In the event this information is protected by the Federal Confidentiality of Alcohol and Drug AbusePatient Records regulations: The Federal rules restrict any use of the information to criminally investigate or prosecute any alcohol or drug abuse patient.[facility] Encounter Details Date Type Department Care Team (Late st Contact Info) Description 09/01/2024 Patient Msg Integrative Medicine [address] [place] [address] [place] [address] [place] [address] Appointment Request Social History Tobacco Use [...] lower risk 4 06/27/2022 Data from: https://www.neighborhoodatlas.medicine.[facility].edu/. Last address used for calculation [address] [...] Office Visit Integrative Medicine [address] [place] [address] Daren Munson DC [address] [place] [address] Visit 8 - Medicaid 10/02/2024 3:15 PM EDT OT/PT/Speech Visit [facility] Physical Therapy [address] [place] [address] Claribel Katz, PT [address] [place] [address] Functional neurological symptom disorder with mixed symptoms [F44.7] 10/14/2024 4:00 PM EDT [facility] Neurological Buddhist 9[address] [place] [address] Sylwia Mathis PA-C 9500 [place] [address] I apologize I missed our last visit. I l l explain 11/13/2024 10:30 AM EDT [facility] Allergy [address] [address] Carlos Kiser MD, PhD 9500 [place] [address] CVID 11/20/2024 12:00 PM EDT Procedure Cardiology [address] [place] [address] VELAZQUEZ CX/SHREE LIST. 11/20/2024 12:45 PM EDT Office Visit Cardiology 9300 [place] [address] Liu Rowe MD [address]00 [place] [address] VELAZQUEZ CX/SHREE LIST. documented as of this encounter Visit Diagnoses Not on filedocumented in this encounter Care Teams Printed Circuit Board Layout Designer Relationship Specialty Start Date End Date Dc Banks DO PCP - General Family Medicine 08/03/10 Kathryn Gutierrez, RN 9500 [facility] [address] [place] [address] Specialty Data Analysis Assistant Hematology 04/03/22 documented as of this encounter
--- OUTSIDE RECORDS SUMMARY | 2024-09-15 15:45 | XMS_ITS | Encounter Summary ---
Author Organization [facility] Address [address] [place] [address] Care Team Providers Care Professional Architect Name Role Phone Dc Banks Primary Care Provider [phone] Kathryn Gutierrez RN Unavailable Unavaila ble Source Comments In the event this information is protected by the Federal Confidentiality of Alcohol and Drug AbusePatient Records regulations: The Federal rules restrict any use of the information to criminally investigate or prosecute any alcohol or drug abuse patient.[facility] Encounter Details Date Type Department Care Team (Late st Contact Info) Description 10/09/2021 [place] [address] Provider, Ccf MRI Screening Questionnaire Completion Required [...] N ot on file 08/08/2021 Data from: https://www.neighborhoodatlas.medicine.[facility].edu/. Last address used for calculation [address] [...] Author No 07/20/2016 2:32 PM EDT Candi Tlyer RN * Do you have difficulty dressing [...] Office Visit Integrative Medicine [address] [place] [address] Daren Munson DC [address] [place] [address] Visit 8 - Medicaid 10/02/2024 3:15 PM EDT OT/PT/Speech Visit [facility] Physical Therapy [address] [place] [address] Claribel Katz, PT [address] [place] [address] Functional neurological symptom disorder with mixed symptoms [F44.7] 10/14/2024 4:00 PM EDT [facility] Neurological Congregational [address] [place] [address] Sylwia Mathis PA-C 9500 [place] [address] I apologize I missed our last visit. I l l explain 11/13/2024 10:30 AM EDT [facility] Allergy [address] [address] Carlos Kiser MD, PhD [address]00 [place] [address] CVID 11/20/2024 12:00 PM EDT Procedure Cardiology [address] [place] [address] VELAZQUEZ CX/SHREE LIST. 11/20/2024 12:45 PM EDT Office Visit Cardiology 9300 [place] [address] Liu Rowe MD [address]00 [place] [address] VELAZQUEZ CX/SHREE LIST. documented as of this encounter Visit Diagnoses Not on filedocumented in this encounter Additional Health Concerns Infection Onset Date Last Indicated Resolved Time COVID-19 Rule-Out 01/26/2022 01/26/2022 01/26/2022 8:17 PM EST documented as of this encounter Care Teams Professional Architect Relationship Specialty Start Date End Date Dc Banks DO PCP - General Family Medicine 08/03/10 Kathryn Gutierrez, RN [address] [place] [address] Specialty Outside Operator Hematology 04/03/22 documented as of this encounter
--- OUTSIDE RECORDS SUMMARY | 2024-09-15 15:45 | XMS_ITS | Encounter Summary ---
Author Organization [facility] Address [address] [place], [place] [address] Care Team Providers Care Transfer And Line Up Worker Name Role Phone Dc Banks DO Primary Care Provider [phone] Kathryn Gutierrez RN Unavailable Unavaila ble Source Comments In the event this information is protected by the Federal Confidentiality of Alcohol and Drug AbusePatient Records regulations: The Federal rules restrict any use of the information to criminally investigate or prosecute any alcohol or drug abuse patient.[facility] Encounter Details Date Type Department Care Team (Late st Contact Info) Description 03/27/2024 Get Medical Advice Allergy [address] [place] [address] Carlos Kiser MD, PhD [address] [place], [place] [id number] IMPORTANT re today s appt & new [...] is lower risk 4 06/27/2022 Data from: https://www.neighborhoodatlas.medicine.[facility].edu/. Last address used for calculation [...] Office Visit Integrative Medicine [address] [place] [address] Daren Munson DC [address] [place] [address] Visit 8 of 15 - Medicaid 10/02/2024 3:15 PM EDT OT/PT/Speech Visit [facility] Physical Therapy [address] [place] [address] Claribel Katz, PT [address] [place] [address] Functional neurological symptom disorder with mixed symptoms [F44.7] 10/14/2024 4:00 PM EDT [facility] Neurological Buddhism [address] [place] [address] Sylwia Mathis PA-C 9500 [place] [address] I apologize I missed our last visit. I l l explain 11/13/2024 10:30 AM EDT [facility] Allergy [address] [address] Carlos Kiser MD, PhD [address]00 [place] [address] CVID 11/20/2024 12:00 PM EDT Procedure Cardiology 9[address] [place] [address] VELAZQUEZ CX/SHREE LIST. 11/20/2024 12:45 PM EDT Office Visit Cardiology 9300 [place] [address] Liu Rowe MD [address] [place] [address] VELAZQUEZ CX/SHREE LIST. documented as of this encounter Visit Diagnoses Not on filedocumented in this encounter Care Teams Transfer And Line Up Worker Relationship Specialty Start Date End Date Dc Banks DO PCP - General Family Medicine 08/03/10 Kathryn Gutierrez, ARMANI 9500 [facility] [address] [place] [address] Specialty Microfilm Operator Hematology 04/03/22 documented as of this encounter
--- OUTSIDE RECORDS SUMMARY | 2024-09-15 15:45 | XMS_ITS | Encounter Summary ---
Author Organization [facility] Address [address] [place], [place] [address] Care Team Providers Care Heeler Name Role Phone Dc Banks Primary Care Provider [phone] Kathryn Gutierrez RN Unavailable Unavaila ble Source Comments In the event this information is protected by the Federal Confidentiality of Alcohol and Drug AbusePatient Records regulations: The Federal rules restrict any use of the information to criminally investigate or prosecute any alcohol or drug abuse patient.[facility] Encounter Details Date Type Department Care Team (Late st Contact Info) Description 04/02/2024 Patient Msg Allergy [address]49 [place] [address] Carlos Kiser MD, PhD [address] [place], [place] [address] labs Social History Tobacco Use Types Packs/Day [...] risk 4 06/27/2022 Data from: https://www.neighborhoodatlas.medicine.[facility]/. Last address used for [...] Office Visit Integrative Medicine [address] [place] [address] Daren Munson DC [address] [place] [address] Visit 8 - Medicaid 10/02/2024 3:15 PM EDT OT/PT/Speech Visit [facility] Physical Therapy [address] [place] [address] Claribel Katz, PT [address] [place] [address] Functional neurological symptom disorder with mixed symptoms [F44.7] 10/14/2024 4:00 PM EDT [facility] Neurological Alevism [address] [place] [address] Sylwia Mathis PA-C 9500 [place] [address] I apologize I missed our last visit. I l l explain 11/13/2024 10:30 AM EDT [facility] Allergy [address] [address] Carlos Kiser MD, PhD [address] [place] [address] CVID 11/20/2024 12:00 PM EDT Procedure Cardiology [address] [place] [address] VELAZQUEZ CX/SHREE LIST. 11/20/2024 12:45 PM EDT Office Visit Cardiology [address] [place] [address] Liu Rowe MD [address]00 [place] [address] VELAZQUEZ CX/SHERE LIST. documented as of this encounter Visit Diagnoses Not on filedocumented in this encounter Care Teams Heeler Relationship Specialty Start Date End Date Dc Banks DO PCP - General Family Medicine 08/03/10 Kathryn Gutierrez, RN [address]00 [facility] [address] [place] [address] Specialty Actuarial Associate Hematology 04/03/22 documented as of this encounter
--- OUTSIDE RECORDS SUMMARY | 2024-09-15 15:45 | XMS_ITS | Encounter Summary ---
Author Organization [facility] Address [address] [place] [address] Care Team Providers Care Forging Machine Operator Name Role Phone Dc Banks Primary Care Provider [phone] Kathryn Gutierrez RN Unavailable Unavaila ble Source [...] Contact Info) Description 06/24/2024 Patient Msg Neurology [address] [place], [place] [phone] Provider, Ccf Appointment cancellation. Social History Tobacco [...] is lower risk 4 06/27/2022 Data from: https://www.neighborhoodatlas.[facility]/. Last address used for calculation [...] Office Visit Integrative Medicine [address] [place] [address] Daren Munson DC [address] [place] [address] Visit 8 - Medicaid 10/02/2024 3:15 PM EDT OT/PT/Speech Visit [facility] Physical Therapy [address] [place], [place] [id number] Claribel Katz, PT [address] [place] [address] Functional neurological symptom disorder with mixed symptoms [F44.7] 10/14/2024 4:00 PM EDT [facility] [address] [place] [address] Sylwia Mathis PA-C [address] [place] [address] I apologize I missed our last visit. I l l explain 11/13/2024 10:30 AM EDT [facility] All[facility] [address] [address] Carlos Kiser MD, PhD [address] [place] [address] CVID 11/20/2024 12:00 PM EDT Procedure Cardiology [address] [place] [address] VELAZQUEZ CX/SHREE LIST. 11/20/2024 12:45 PM EDT Office Visit Cardiology [address] [place] [address] Liu Rowe MD [address] [place] [address] VELAZQUEZ CX/SHREE LIST. documented as of this encounter Visit Diagnoses Not on filedocumented in this encounter Care Teams Forging Machine Operator Relationship Specialty Start Date End Date Dc Banks DO PCP - General Family Medicine 08/03/10 Kathryn Gutierrez, ARMANI [address] [facility] [address] [place] [address] Specialty Tube Operator Hematology 04/03/22 documented as of this encounter
--- OUTSIDE RECORDS SUMMARY | 2024-09-15 15:45 | XMS_ITS | Encounter Summary ---
Author Organization [facility] Address [address] [place] [address] Care Team Providers Care Director [place] Name Role Phone Dc Banks Primary Care Provider [phone] Kathryn Gutierrez RN Unavailable Unavaila ble Source Comments In the event this information is protected by the Federal Confidentiality of Alcohol and Drug AbusePatient Records regulations: The Federal rules restrict any use of the information to criminally investigate or prosecute any alcohol or drug abuse patient.[facility] Reason for Visit * Reason Comments Appointment I spoke to patient a nd she is aware of the cancel appt with Dr. Velazquez on Nov 20 and [place] date with Dr. Rowe on Nov 20. Cancellation sent though MyChart. Encounter Details Date Type Department Care Team (Late st Contact Info) Description 09/09/2024 Telephone Cardiology [address] [place] [address] Krystyna Velazquez MD [address] [place] [address] Appointment (I spoke to patient [...] is lower risk 4 06/27/2022 Data from: https://www.neighborhoodatlas.[facility]/. Last address used for calculation [address] [...] Office Visit Integrative Medicine [address] [place] [address] Daren Munson DC [address] [place] [address] Visit 8 of - Medicaid 10/02/2024 3:15 PM EDT OT/PT/Speech Visit [facility] Physical Therapy [address] [place] [address] Claribel Katz, PT [address] [place] [address] Functional neurological symptom disorder with mixed symptoms [F44.7] 10/14/2024 4:00 PM EDT [facility] Neurological [place] [address] [place] [address] Sylwia Mathis PA-C [address] [place] [address] I apologize I missed our last visit. I l l explain 11/13/2024 10:30 AM EDT [facility] Allergy [address] [address] Carlos Kiser MD, PhD [address] [place] [address] CVID 11/20/2024 12:00 PM EDT Procedure Cardiology [address] [place] [address] VELAZQUEZ CX/[place] LIST. 11/20/2024 12:45 PM EDT Office Visit Cardiology [address] [place] [address] Liu Rowe MD [address] [place] [address] VELAZQUEZ CX/[place] LIST. documented as of this encounter Visit Diagnoses Not on filedocumented in this encounter Care Teams Director China Relationship Specialty Start Date End Date Dc Banks DO PCP - General Family Medicine 08/03/10 Kathryn Gutierrez, RN [address] [place] [address] [place] [address] Specialty Plugging Machine Operator Hematology 04/03/22 documented as of this encounter
--- OUTSIDE RECORDS SUMMARY | 2024-09-15 15:45 | XMS_ITS | Encounter Summary ---
Author Organization [facility] Address [address] [place] [address] Care Team Providers Care Conveyor System Operator Name Role Phone Dc Banks Primary [...] Patient Msg Integrative Medicine [address] [place] [address] [place] [address] [place] [address] Appointment Request Social History Tobacco Use [...] lower risk 4 06/27/2022 Data from: https://www.neighborhoodatlas.medicine.[facility].edu/. Last address used for calculation [address] [...] Visit Integrative Medicine [address] [place] [address] Daren Munson DC [address] [place] [address] Visit 8 - Medicaid 10/02/2024 3:15 PM EDT OT/PT/Speech Visit [facility] Physical Therapy [address] [place] [address] Claribel Katz, PT [address] [place] [address] Functional neurological symptom disorder with mixed symptoms [F44.7] 10/14/2024 4:00 PM EDT [facility] [place] [address] [place] [address] Sylwia Mathis PA-C [address] [place] [address] I apologize I missed our last visit. I l l explain 11/13/2024 10:30 AM EDT [facility] [address] [address] Carlos Kiser MD, PhD [address] [place] [address] CVID 11/20/2024 12:00 PM EDT Procedure Cardiology [address] [place] [address] VELAZQUEZ CX/SHREE LIST. 11/20/2024 12:45 PM EDT Office Visit Cardiology [address] [place] [address] Liu Rowe MD [address] [place] [address] VELAZQUEZ CX/SHREE LIST. documented as of this encounter Visit Diagnoses Not on filedocumented in this encounter Care Teams Conveyor System Operator Relationship Specialty Start Date End Date Dc Banks DO PCP - General Family Medicine 08/03/10 Kathryn Gutierrez, RN [address] [facility] [address] [place] [address] Specialty Deep Fryer Assembler Hematology 04/03/22 documented as of this encounter
--- OUTSIDE RECORDS SUMMARY | 2024-09-15 15:45 | XMS_ITS | Encounter Summary ---
Author Organization [facility] Address [address] [place] [address] Care Team Providers Care Clinical Laboratory Technologist Name Role Phone Dc Banks Primary Care Provider [phone] Kathryn Gutierrez RN Unavailable Unavaila ble Source Comments In the event this information is protected by the Federal Confidentiality of Alcohol and Drug AbusePatient Records regulations: The Federal rules restrict any use of the information to criminally investigate or prosecute any alcohol or drug abuse patient.[facility] Encounter Details Date Type Department Care Team (Late st Contact Info) Description 07/18/2024 Patient Msg Neurology [address] [place], [place] [phone] Provider, Ccf Please Confirm Your Sleep Study [...] 06/27/2022 Data from: https://www.neighborhoodatlas.medicine.[facility]/. Last address used for calculation [address] [...] Office Visit Integrative Medicine [address] [place] [address] Daren Munson DC [address] [place] [address] Visit 8 - Medicaid 10/02/2024 3:15 PM EDT OT/PT/Speech Visit [facility] Physical Therapy [address] [place] [place] [address] Claribel Katz, PT [address] [place] [address] Functional neurological symptom disorder with mixed symptoms [F44.7] 10/14/2024 4:00 PM EDT [facility] [place] [address] [place] [address] Sylwia Mathis PA-C [address] [place] [address] I apologize I missed our last visit. I l l explain 11/13/2024 10:30 AM EDT [facility] [address] [address] Carlos Kiser MD, PhD [address] [place] [address] CVID 11/20/2024 12:00 PM EDT Procedure Cardiology [address] [place] [address] VELAZQUEZ CX/SHREE LIST. 11/20/2024 12:45 PM EDT Office Visit Cardiology [address] [place] [address] Liu Rowe MD [address] [place] [address] VELAZQUEZ CX/SHREE LIST. documented as of this encounter Visit Diagnoses Not on filedocumented in this encounter Care Teams Clinical Laboratory Technologist Relationship Specialty Start Date End Date Dc Banks DO PCP - General Family Medicine 08/03/10 Kathryn Gutierrez, RN [address] [facility] [address] [place] [address] Specialty Manager Home Healthcare Hematology 04/03/22 documented as of this encounter
--- OUTSIDE RECORDS SUMMARY | 2024-09-15 15:45 | XMS_ITS | Encounter Summary ---
Author Organization [facility] Address [address] [place] [address] Care Team Providers Care Electromechanical Assembler Name Role Phone Dc Banks Primary Care Provider [phone] Kathryn Gutierrez RN Unavailable Unavaila ble Source Comments In the event this information is protected by the Federal Confidentiality of Alcohol and Drug AbusePatient Records regulations: The Federal rules restrict any use of the information to criminally investigate or prosecute any alcohol or drug abuse patient.[facility] Encounter Details Date Type Department Care Team (Late st Contact Info) Description 08/04/2024 Patient Msg Integrative Medicine [address] [place] [address] [place] [address] [place] [address] Appointment Request Social History Tobacco Use [...] lower risk 4 06/27/2022 Data from: https://www.neighborhoodatlas.medicine.[facility].edu/. Last address used for calculation [address] [...] Office Visit Integrative Medicine [address] [place] [address] Daren Munson DC [address] [place] [address] Visit 8 - Medicaid 10/02/2024 3:15 PM EDT OT/PT/Speech Visit [facility] Physical Therapy [address] [address] Claribel Katz, PT [address] [place] [address] Functional neurological symptom disorder with mixed symptoms [F44.7] 10/14/2024 4:00 PM EDT [facility] [place] [address] [place] [address] Sylwia Mathis PA-C [address] [place] [address] I apologize I missed our last visit. I l l explain 11/13/2024 10:30 AM EDT [facility] [address] [address] Carlos Kiser MD, PhD [address] [place] [address] CVID 11/20/2024 12:00 PM EDT Procedure Cardiology [address] [place] [address] VELAZQUEZ CX/SHREE LIST. 11/20/2024 12:45 PM EDT Office Visit Cardiology [address] [place] [address] Liu Rowe MD [address] [place] [address] VELAZQUEZ CX/SHREE LIST. documented as of this encounter Visit Diagnoses Not on filedocumented in this encounter Care Teams Electromechanical Assembler Relationship Specialty Start Date End Date Dc Banks DO PCP - General Family Medicine 08/03/10 Kathryn Gutierrez, RN [address] [facility] [address] [place] [address] Specialty Security Guard Supervisor Hematology 04/03/22 documented as of this encounter
--- OUTSIDE RECORDS SUMMARY | 2024-09-15 15:45 | XMS_ITS | Encounter Summary ---
Author Organization [facility] Address [address] [place] [address] Care Team Providers Care Traveling Engineer Name Role Phone Dc Banks Primary Care Provider [phone] Kathryn Gutierrez RN Unavailable Unavaila ble Source Comments In the event this information is protected by the Federal Confidentiality of Alcohol and Drug AbusePatient Records regulations: The Federal rules restrict any use of the information to criminally investigate or prosecute any alcohol or drug abuse patient.[facility] Encounter Details Date Type Department Care Team (Late st Contact Info) Description 03/02/2015 Patient Msg Medical Records [address] [place] [address] Provider, Ccf [facility] Procedure Social [...] No 09/29/2014 3:04 PM EDT Alex Renae, NETWORK PROGRAM MANAGER * Are you blind or do you have serious difficulty seeing, even when wearing glasses? Answer Date of Assessment Author No 09/29/2014 3:04 PM EDT Alex Renae, NETWORK PROGRAM MANAGER * Do you have serious difficulty walking or climbing stairs? Answer Date of Assessment Author No 09/29/2014 3:04 PM EDT Alex Renae, NETWORK PROGRAM MANAGER * Do you have difficulty dressing or bathing? Answer Date of Assessment Author No 09/29/2014 3:04 PM EDT Alex Renae, NETWORK PROGRAM MANAGER * Because of a physical, mental, or emotional condition, do you have difficulty doing errands alone such as visiting a doctor's office or shopping? Answer Date of Assessment Author Yes 09/29/2014 3:04 PM EDT Alex Renae, NETWORK PROGRAM MANAGER documented as of this encounter Mental Status * Because of a physical, mental, or emotional condition, do you have serious difficulty concentrating, remembering, or making decisions? Answer Entry Date Author Yes 09/29/2014 3:04 PM EDT Alex Renae, NETWORK PROGRAM MANAGER documented in this encounter Plan of Treatment Upcoming Encounters Date Type Department Care Team (Latest Contact Info) Description 09/17/2024 1:30 PM EDT Office Visit Integrative Medicine [address] [place] [address] Daren Munson DC [address] [place] [address] Visit 8 of 15 - Medicaid 10/02/2024 3:15 PM EDT OT/PT/Speech Visit [facility] Physical Therapy [address] [place] [address] Claribel Katz, PT [address] [place] [address] Functional neurological symptom disorder with mixed symptoms [F44.7] 10/14/2024 4:00 PM EDT [facility] [address] [place] [address] Sylwia Mathis PA-C [address] [place], [place] [id number] I apologize I missed our last visit. I l l explain 11/13/2024 10:30 AM EDT [facility] [address] [address] Carlos Kiser MD, PhD [address] [place], [place] [address] CVID 11/20/2024 12:00 PM EDT Procedure Cardiology [address] [place] [address] VELAZQUEZ CX/SHREE LIST. 11/20/2024 12:45 PM EDT Office Visit Cardiology [address] [place], [place] [address] Liu Rowe MD [address] [place], [place] [phone] PER DR VELAZQUEZ CX/SHREE LIST. documented as of this encounter Visit Diagnoses Not on filedocumented in this encounter Additional Health Concerns Infection Onset Date Last Indicated Resolved Time COVID-19 Rule-Out 01/26/2022 01/26/2022 01/26/2022 8:17 PM EST documented as of this encounter Care Teams Traveling Engineer Relationship Specialty Start Date End Date Dc Banks DO PCP - General Family Medicine 08/03/10 Kathryn Gutierrez, ARMANI [address] [facility] [address] [place] [address] Specialty Brake Holder Hematology 04/03/22 documented as of this encounter
--- OUTSIDE RECORDS SUMMARY | 2024-09-15 15:45 | XMS_ITS | Encounter Summary ---
Author Organization [facility] Address [address] [place], [place] [phone] Care Team Providers Care Magnet Valve Assembler Name Role Phone Dc Banks Primary Care Provider [phone] Kathryn Gutierrez RN Unavailable Unavaila ble Source [...] Description 04/26/2021 Get Medical Advice Rheumatology [address] [place] [address] Carlos Kiser MD, PhD [address] [place], [place] [id number] Needing Home Health Social History Tobacco Use [...] N ot on file 01/25/2020 Data from: https://www.neighborhoodatlas.medicine.[facility]/. 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 I l l explain 11/13/2024 10:30 AM EDT [facility] Allergy [address] [address] Carlos Kiser MD, PhD [address] [place] [address] CVID 11/20/2024 12:00 PM EDT Procedure Cardiology [address] [place] [address] VELAZQUEZ CX/SHREE LIST. 11/20/2024 12:45 PM EDT Office Visit Cardiology [address] [place] [address] Liu Rowe MD [address] [place] [address] VELAZQUEZ CX/SHREE LIST. documented as of this encounter Visit Diagnoses Not on filedocumented in this encounter Additional Health Concerns Infection Onset Date Last Indicated Resolved Time COVID-19 Rule-Out 01/26/2022 01/26/2022 01/26/2022 8:17 PM EST documented as of this encounter Care Teams Magnet Valve Assembler Relationship Specialty Start Date End Date Dc Banks DO PCP - General Family Medicine 08/03/10 Kathryn Gutierrez, RN [address] [place] [address] Specialty Manager Consumer Hematology 04/03/22 documented as of this encounter
--- OUTSIDE RECORDS SUMMARY | 2024-09-15 15:45 | XMS_ITS | Encounter Summary ---
Author Organization [facility] Address [address] [place] [address] Care Team Providers Care Fitter And Turner Name Role Phone Dc Banks Primary Care Provider [phone] Kathryn Gutierrez RN Unavailable Unavaila ble Source Comments In the event this information is protected by the Federal Confidentiality of Alcohol and Drug AbusePatient Records regulations: The Federal rules restrict any use of the information to criminally investigate or prosecute any alcohol or drug abuse patient.[facility] Encounter Details Date Type Department Care Team (Late st Contact Info) Description 02/21/2024 Patient Msg Neurology [address] [place], [place] [phone] Provider, Ccf Appointment scheduling Social History Tobacco [...] risk 4 06/27/2022 Data from: https://www.neighborhoodatlas.[facility]/. Last address used for calculation [...] Office Visit Integrative Medicine [address] [place] [address] Daren Munson DC [address] [place] [address] Visit 8 - Medicaid 10/02/2024 3:15 PM EDT OT/PT/Speech Visit [facility] Physical Therapy [address] [place], [place] [phone] Claribel Katz, PT [address] [place] [address] Functional neurological symptom disorder with mixed symptoms [F44.7] 10/14/2024 4:00 PM EDT [facility] [address] [place] [address] Sylwia Mathis PA-C [address] [place] [address] I apologize I missed our last visit. I l l explain 11/13/2024 10:30 AM EDT [facility] [address] [address] Carlos Kiser MD, PhD [address] [place] [address] CVID 11/20/2024 12:00 PM EDT Procedure Cardiology [address] [place] [address] VELAZQUEZ CX/SHREE LIST. 11/20/2024 12:45 PM EDT Office Visit Cardiology [address] [place] [address] Liu Rowe MD [address] [place] [address] VELAZQUEZ CX/SHREE LIST. documented as of this encounter Visit Diagnoses Not on filedocumented in this encounter Care Teams Fitter And Turner Relationship Specialty Start Date End Date Dc Banks DO PCP - General Family Medicine 08/03/10 Kathryn Gutierrez, ARMANI 9500 [facility] [address] [place] [address] Specialty Automatic Lathe Tender Hematology 04/03/22 documented as of this encounter
--- OUTSIDE RECORDS SUMMARY | 2024-09-15 15:45 | XMS_ITS | Clinical Summary ---
Author Organization [facility] Address [address] [place], [place] [id number] Care Team Providers Care Dot Net Developer Name Role Phone Dc Banks Primary Care Provider [phone] Kathryn Gutierrez RN Unavailable Unavaila ble Allergies [...] with neuro- last visit with Tasha Daniels APRN.TRAFFIC INCIDENT MANAGEMENT MANAGER 2022 PTSD (post-traumatic stress disorder) Assessment & [...] Department Care Team Description 09/09/2024 Telephone Cardiology [address] [place] [address] Krystyna Velazquez MD Appointment (I spoke to patient and she is aware of the cancel appt with Dr. Velazquez on Nov 20 and [place] date with Dr. Rowe on Oct 2nd. Cancellation sent though [facility].) 09/01/2024 Patient Msg [facility] [address] [place] [address] Daren Munson DC Appointment Request 08/31/2024 Patient Msg [facility] [address] [place] [address] Daren Munson DC Appointment Request 08/28/2024 Telephone Allergy [address] [address] Carlos Kiser MD, PhD Prior Authorization ([facility] ) 08/20/2024 1:00 PM EDT [facility] Neurological [facility] [facility] [address] [id number] Sylwia Mathis PA-C No-show for appointment (Primary Dx); Functional neurological symptom disorder with mixed symptoms 08/18/2024 3:45 PM EDT Office Visit [facility] [address] [place] [address] Daren Munson DC Segmental and somatic dysfunction of cervical region (Primary Dx); Segmental and somatic dysfunction of thoracic region; Segmental and somatic dysfunction of lumbar region; Chronic bilateral low back pain, unspecified whether sciatica present; Chronic bilateral thoracic back pain; Cervical spine pain 08/11/2024 Travel 08/04/2024 Patient Tng [facility] [address] [place] [address] Daren Munson DC Appointment Request 08/01/2024 3:30 PM EDT Office Visit [facility] [address] [place] [address] Daren Munson DC Segmental and somatic dysfunction of thoracic region (Primary Dx); Segmental and somatic dysfunction of lumbar region; Chronic bilateral thoracic back pain; Chronic bilateral low back pain, unspecified whether sciatica present 07/22/2024 Abstract Neurology [address] [place] [address] Main, Psg Neur PSG Check In 07/18/2024 Patient Msg Neurology [address] [place] [address] Provider, Ccf Please Confirm Your Sleep Study Appointment Scheduled on 07/23/24. 07/16/2024 Patient Msg Neurology [address] [place] [address] Provider, Ccf Please Confirm Your Sleep Study Appointment Scheduled For 07/23/24. 07/09/2024 2:00 PM EDT Office Visit [facility] [address] [place] [address] Daren Munson DC Segmental and somatic dysfunction of cervical region (Primary Dx); Segmental and somatic dysfunction of lumbar region; Segmental and somatic dysfunction of thoracic region; Chronic bilateral thoracic back pain 07/09/2024 Travel 06/25/2024 3:45 PM EDT Office Visit [facility] [address] [place] [address] Daren Munson DC Segmental and somatic dysfunction of lumbar region (Primary Dx); Segmental and somatic dysfunction of cervical region; Segmental and somatic dysfunction of thoracic region; Cervical spine pain; Chronic bilateral thoracic back pain; Chronic bilateral low back pain with bilateral sciatica 06/24/2024 Patient Msg Neurology [address] [place] [address] Provider, Ccf Appointment cancellation. 06/16/2024 1:00 PM EDT [facility] Neurological [facility] [facility] [address] [place] [address] Evon Hicks MD Functional neurological symptom disorder [...] is lower risk 4 06/27/2022 Data from: https://www.neighborhoodatlas.medicine.[facility]/. Last address used for calculation [address] [...] Office Visit Integrative Medicine [address] [place] [address] Daren Munson DC [address] [place] [address] Visit 8 - Medicaid 10/02/2024 3:15 PM EDT OT/PT/Speech Visit 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 I l l explain 11/13/2024 10:30 AM EDT [facility] Allergy [address] [address] Carlos Kiser MD, PhD [address] [place] [address] CVID 11/20/2024 12:00 PM EDT Procedure Cardiology [address] [place] [address] VELAZQUEZ CX/[place] LIST. 11/20/2024 12:45 PM EDT Office Visit Cardiology [address] [place] [address] Liu Rowe MD [address] [place] [address] VELAZQUEZ CX/[place] LIST. Health Maintenance [...] BASIC METABOLIC PANEL (04/01/2024 3:06 PM EST) [facility] Glucose 90 74 - 99 mg/dL 04/01/2024 3:43 PM EST [facility] Comment: The [place] [employer] (ADA) provides guidance for cutoff [...] Standards of Medical Care in Diabetes 2016, [place] [employer]. Diabetes Care. 2016.39(Suppl 1). BUN 19 7 - 21 mg/dL 04/01/2024 3:43 PM [facility] Creatinine 0.93 0.58 - 0.96 mg/dL 04/01/2024 3:43 PM [facility] Sodium 138 136 - 144 mmol/L 04/01/2024 3:43 PM [facility] Potassium 4.3 3.7 - 5.1 mmol/L 04/01/2024 3:43 PM [facility] Chloride 97(L) 98 - 107 mmol/L 04/01/2024 3:43 PM [facility] CO2 28 22 - 30 mmol/L 04/01/2024 3:43 PM [facility] Anion Gap 13 8 - 15 mmol/L 04/01/2024 3:43 PM EST [facility] Calcium, Total 10.0 8.5 - 10.2 mg/dL 04/01/2024 3:43 PM EST [facility] Estimated Glomerular Filtration Rate 81 >=60 mL/min/1.7 3m 04/01/2024 3:43 PM EST [facility] Comment:Estimated Glomerular Filtration Rate (eGFR) is [...] Carlos Kiser MD, PhD LABORATORY Final Result [facility] [address] [place] [address] * HIV 1 2 COMBO(AG/AB),WITH REFLEX TO DIFFERENTIATION (02/17/2022 2:13 PM EST) HIV 12 Combo (Ag/Ab) Nonreactive Nonreactive 02/18/2022 10:[address] [facility] HIV-1/2 AB (Confirmatory) 02/18/2022 10:[address] [facility] Comment:Test not indicated. HIV Interpretation 02/18/2022 10:[address] [facility] Comment: No evidence of HIV-1 or HIV-2 infection. Should recent infection be suspected, repeat testing may be considered 2-3 weeks after this draw. [place] Rev. Code 3701.243(E): This information has been [...] MD LABORATORY Final Result Performing Organization Address [facility] Co de Phone Number [facility] [address] [place] [address], * HEP C AB IA W/CONF SCRN (02/17/2022 2:13 PM EST) Hep C Antibody IA Negative Negative 02/18/2022 10:[address] [facility] Comment:The result suggests no evidence of active infection with Hepatitis C virus. Should recent infection be suspected, repeat testing may be considered 4-6 weeks after this draw. Blood BLOOD SPECIMEN / Unknown Venipuncture / Unknown 02/17/2022 2:13 PM EST 02/17/2022 2:13 PM EST Chilo Wood MD LABORATORY Final Result Performing Organization Address [facility] Co de Phone Number [facility] [place] [address], from Last 3 Months or Most Recently Relevant to Health Maintenance Insurance [employer] Advance Directives Documents on File Type Date Recorded Patient Product Line Manager Expl anation Advance Directive(s) 03/18/2015 8:14 PM * Full Code (Latest Code Status on File) Date Activated Date Inactivated Comments 01/27/2022 3:33 AM 01/31/2022 9:49 PM Question Answer Comments Full Code Order Discussed With: Patient Care Teams Dot Net Developer Relationship Specialty Start Date End Date Dc Banks DO PCP - General Family Medicine 08/03/10 Kathryn Gutierrez, ARMANI [address] [place] [address] Specialty Detail Supervisor Hematology 04/03/22
--- OUTSIDE RECORDS SUMMARY | 2024-09-15 15:45 | XMS_ITS | Encounter Summary ---
Author Organization [facility] Address [address] [place] [address] Care Team Providers Care Sterile Processing Manager Name Role Phone Dc Banks Primary Care Provider Kathryn Gutierrez RN Unavailable Unavaila ble Source Comments In the event this information is protected by the Federal Confidentiality of Alcohol and Drug AbusePatient Records regulations: The Federal rules restrict any use of the information to criminally investigate or prosecute any alcohol or drug abuse patient.[facility] Encounter Details Date Type Department Care Team (Late st Contact Info) Description 07/16/2024 Patient Msg Neurology [address] [place], [place] [phone] Provider, Ccf Please Confirm Your Sleep Study [...] risk 4 06/27/2022 Data from: https://www.neighborhoodatlas.medicine.[facility]/. Last address used [...] Office Visit [facility] [address] [place] [address] Daren Munson DC [address] [place] [address] Visit 8 - Medicaid 10/02/2024 3:15 PM EDT OT/PT/Speech Visit [facility] Physical Therapy [address] [place] [place] [address] Claribel Katz, PT [address] [place] [address] Functional neurological symptom disorder with mixed symptoms [F44.7] 10/14/2024 4:00 PM EDT [facility] Neurological [facility] [address] [place] [address] Sylwia Mathis PA-C [address] [place] [address] I apologize I missed our last visit. I l l explain 11/13/2024 10:30 AM EDT [facility] Allergy [address] [address] Carlos Kiser MD, PhD [address] [place] [address] CVID 11/20/2024 12:00 PM EDT Procedure Cardiology [address] [place] [address] VELAZQUEZ CX/[place] LIST. 11/20/2024 12:45 PM EDT Office Visit Cardiology [address] [place] [address] Liu Rowe MD [address] [place] [address] VELAZQUEZ CX/SHREE LIST. documented as of this encounter Visit Diagnoses Not on filedocumented in this encounter Care Teams Sterile Processing Manager Relationship Specialty Start Date End Date Dc Banks DO PCP - General Family Medicine 08/03/10 Kathryn Gutierrez, RN [address] [facility] [address] [place] [address] Specialty Talent Acquisition Lead Hematology 04/03/22 documented as of this encounter
--- OUTSIDE RECORDS SUMMARY | 2024-09-15 15:45 | XMS_ITS | Encounter Summary ---
Author Organization [facility] Address [address] [place] [address] Care Team Providers Care Info Print Press Operator Name Role Phone Dc Banks Primary Care Provider [phone] Kathryn Gutierrez RN Unavailable Unavaila ble Source Comments In the event this information is protected by the Federal Confidentiality of Alcohol and Drug AbusePatient Records regulations: The Federal rules restrict any use of the information to criminally investigate or prosecute any alcohol or drug abuse patient.[facility] Reason for Visit * Reason Comments PSG Check In Encounter Details Date Type Department Care Team (Late st Contact Info) Description 07/22/2024 Abstract Neurology [address] [phone] Main, Psg Neur [address] [phone] PSG Check In Social History Tobacco Use [...] is lower risk 4 06/27/2022 Data from: https://www.neighborhoodatlas.medicine.[facility].edu/. 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 I l l explain 11/13/2024 10:30 AM EDT [facility] [address] [address] Carlos Kiser MD, PhD [address] [place] [address] CVID 11/20/2024 12:00 PM EDT Procedure Cardiology [address] [place] [address] VELAZQUEZ CX/SHREE LIST. 11/20/2024 12:45 PM EDT Office Visit Cardiology [address] [place] [address] Liu Rowe MD [address] [place] [address] VELAZQUEZ CX/SHREE LIST. documented as of this encounter Visit Diagnoses Not on filedocumented in this encounter Care Teams Info Print Press Operator Relationship Specialty Start Date End Date Dc Banks DO PCP - General Family Medicine 08/03/10 Kathryn Gutierrez, RN [address] [facility] [address] [place] [address] Specialty Drawer In Hematology 04/03/22 documented as of this encounter
== END 2024-09-12 10:31 | disposition home or self-care (01) ==
LOC: LAB 10:30
PROVIDERS: PCP Family Medicine; Visit Provider Family Medicine
DX: R79.89 Other specified abnormal findings of blood chemistry (principal)
CPT/HCPCS: 36415; 82530